=== PATIENT | female | born 1945 | race Caucasian/White ===

== ENCOUNTER 2019-08-10 18:33 | Emergency (ER) | payer MEDICARE, MEDICAID, SELFPAY ==
[2019-08-10 18:38] VITALS: BP 225/75; PULSE 80; RESP 18; TEMP 36.7; O2SAT 95; BMI 61.5
[2019-08-10 19:06] LABS: Basophils % 0.6 %; Eosinophils # 0.1 10^3/uL (0.0-0.8); Eosinophils % 2.3 %; Hematocrit 33.8 % (37.0-47.0); Hemoglobin 10.6 g/dL (11.5-15.3); Lymphocytes # 0.9 10^3/uL (0.8-4.8); Lymphocytes % 19.2 %; Mean Corpuscular HGB Conc 31.4 g/dL (30.0-36.0); Mean Corpuscular Hemoglobin 31.5 pg (28.0-34.0); Mean Corpuscular Volume 100.3 fL (81-99); Mean Platelet Volume 11.4 fL (7.4-10.4); Monocytes # 0.7 10^3/uL (0.2-0.9); Monocytes % 14.9 %; Nucleated Red Blood Cells % 0 %; Platelet Count 170 10^3/cmm (130-400); Red Blood Count 3.37 10^6/uL (4.1-5.3); Red Cell Distribution Width 13.2 % (12.1-15.1); White Blood Count 4.8 10^3/uL (4.0-10.0)
[2019-08-10 19:18] LABS: Alanine Aminotransferase 9 U/L (0-33); Albumin Level 3.7 g/dL (3.5-5.2); Alkaline Phosphatase 199 IU/L (35-105); Anion Gap 19.1 (5-19); Aspartate Amino Transferase 21 U/L (0-32); Blood Urea Nitrogen 42 mg/dL (8-23); Carbon Dioxide 23 mmol/L (22-29); Chloride 99 mmol/L (98-107); Glucose 341 mg/dL (74-106); Potassium 4.1 mmol/L (3.5-5.1); Sodium 137 mmol/L (136-145); Total Bilirubin 0.2 mg/dL (0.15-1.2); Total Protein 7.7 g/dL (6.6-8.7)
--- NOTE | 2019-08-10 20:51 | ECG_ITS ---
Measurements Intervals [place] Rate: 72 P: -30 [place]: 144 QRS: 35 QRSD: 113 T: 4 QT: 366 QTc: 401 SINUS RHYTHM MODERATE INTRAVENTRICULAR CONDUCTION DELAY [110+ ms QRS DURATION] NONSPECIFIC T-WAVE ABNORMALITY Compared to ECG 06/26/2017 13:48:06 Possible ischemia no longer present T-wave abnormality still present Electronically Signed On 08-11-2019 18:32:45 [employer] by Ruddy Sanches M.D. [email or web address]
--- NOTE | 2019-08-10 20:51 | CTR_ITS ---
PROCEDURE INFORMATION: Exam: CT Head Without Contrast Exam date and time: 08/10/2019 9:06 PM Age: 73 years old Clinical indication: Altered mental status/memory loss and other: Incontinence; Additional info: AMS TECHNIQUE: Imaging protocol: Computed tomography of the head without contrast. Total DLP: 783.55 mGy-cm Radiation optimization: All CT scans at this facility use at least one of these dose optimization techniques: automated exposure control; mA and/or kV adjustment per patient size (includes targeted exams where dose is matched to clinical indication); or iterative reconstruction. COMPARISON: CT head wo con* [id number] 12/09/2018 7:17 PM FINDINGS: Brain: Mild cortical volume loss. Mild hypodensities in supratentorial periventricular and subcortical white matter. No intracranial hemorrhage. Ventricles: Normal. No ventriculomegaly. Bones/joints: Unremarkable. No acute fracture. Sinuses: Visualized sinuses are unremarkable. No fluid levels. Mastoid air cells: Visualized mastoid air cells are well aerated. Soft tissues: Unremarkable. CT/CT head wo con* [id number] IMPRESSION: 1. No acute intracranial abnormality. 2. Mild microangiopathy. Radiation Dose CTDIVOL = (mGy): DLP = 783.55 (mGy-cm)
--- NOTE | 2019-08-10 20:54 | ED_ITS ---
Entered by Sherin Isbell, acting as scribe for Duke Geronimo MD Aug 10, 2019 18:33 HPI - Altered Mental Status General: Chief Complaint: Altered Mental Status Stated Complaint: POSS STROKE LIKE SYMPTOMS Time Seen by Provider: 08/10/19 20:51 Source: patient Mode of arrival: ambulatory Limitations: no limitations History of Present Illness: HPI narrative: 73 yo Female presents to ED with complaint of altered mental status and confusion. Pt states that she has been confused for the past couple of days. Pt's family states that the patient has been incontinent of bladder. Pt states it is mostly her cough and when she coughs, she pees. complaint: altered mental status and confusion Onset (ago): day(s) Timing confirmed by: family member Consistency of symptoms: Constant Context: unknown Associated symptoms: Reports other (confusion); Deny auditory hallucinations, visual hallucinations, delusions, depression, homicidal ideation, racing thoughts or suicidal ideation Review of Systems Const: Denies: fever, chills, body aches or change in appetite Eyes: Denies: blurry vision or eye discomfort ENMT: Denies: throat pain or dental pain Card: Denies: chest pain Resp: Reports: non-productive cough; Denies: shortness of breath GI: Denies: abdominal pain, nausea, vomiting or diarrhea : Reports: urinary incontinence; Denies: painful urination Musc: Denies: neck pain or back pain Skin/Breast: Denies: rash Neuro: Reports: confusion; Denies: headache Psych: Denies: depression, visual hallucinations, auditory hallucinations, suicidal ideation or homicidal ideation Jewel/Lymph: Denies: easy bruising All/Imm: Denies: hives PFSH ED PFSH: Statuses (acute, chronic, etc) shown below reflect problem list status as previously entered and may not be historically accurate Medical History (Updated 08/10/19 @ 22:09 by Duke Geronimo MD) CAD (coronary artery disease) (Acute) Diabetes (Acute) PVD (peripheral vascular disease) (Acute) Renal insufficiency (Acute) Surgical History (Updated 08/10/19 @ 21:20 by Sherin Isbell) History of ankle surgery (Acute) History of cataract surgery (Acute) History of cholecystectomy (Acute) History of heart artery stent (Acute) Social History Smoking and tobacco status: never smoked Physical Exam Const: COMMON NORMALS: no apparent distress, oriented x3 and healthy appearing HENMT: COMMON NORMALS: normocephalic and head/scalp atraumatic HEAD & SCALP: normocephalic and atraumatic Eye: COMMON NORMALS: PERRL and EOMs intact bilaterally PUPIL: Yes PERRL Neck/C-Spine: COMMON NORMALS: full ROM and supple Chest: COMMONS NORMALS: inspection of chest normal and palpation of chest normal Resp: COMMON NORMALS: normal respiratory effort, no retractions, no use of accessory muscles and clear to auscultation bilaterally AUSCULTATION: clear to auscultation bilaterally Cardio: COMMON NORMALS: regular rate, regular rhythm and no murmurs RATE: regular rate RHYTHM: regular rhythm GI: COMMON NORMALS: normal to inspection, nondistended, normoactive bowel sounds, soft to palpation, non-tender and no masses PALPATION: Yes soft Extremity: COMMON NORMALS: normal to inspection and full ROM Neuro: COMMON NORMALS: oriented x3, moves all extremities and no focal motor deficits Psych: COMMON NORMALS: mental status grossly normal, thought process normal and cooperative THOUGHT PROCESS: normal thought process THOUGHT CONTENT: No delusion(s) Skin: COMMON NORMALS: no rashes or lesions noted and no wounds GENERAL SKIN EXAM: no rashes or lesions noted Course Vital Signs: Vital signs: Vital Signs Temperature 98.1 F 08/10/19 18:38 Pulse Rate 80 08/10/19 18:38 Respiratory Rate 18 08/10/19 18:38 Blood Pressure 182/63 08/10/19 22:09 Pulse Oximetry 95 08/10/19 18:38 MDM - Altered Mental Status MDM Narrative: Medical decision making narrative: Patient presents here with cough along with low-grade fevers and some dizziness. Patient's found to have flu B. Patient has no signs of sepsis or serious infection. She feels improved here and we will give her a dose of Tamiflu here and prescribe her Tamiflu for home. She is to follow-up with her primary care doctor in 2 to 4 days and return to the ER if worsening. Lab Data: Labs: Lab Results 08/10/19 08/10/19 08/10/19 Range/Units 18:58 18:58 21:38 WBC 4.8 (4.0-10.0) 10^3/ uL RBC 3.37 L (4.1-5.3) 10^6/u L Hgb 10.6 L (11.5-15.3) g/dL Hct 33.8 L (37.0-47.0) % MCV 100.3 H (81-99) fL MCH 31.5 (28.0-34.0) pg MCHC 31.4 (30.0-36.0) g/dL RDW 13.2 (12.1-15.1) % Plt Count 170 (130-400) 10^3/c mm MPV 11.4 H (7.4-10.4) fL Neut % (Auto) 62.0 % Lymph % (Auto) 19.2 % [place] % (Auto) 14.9 % Eos % (Auto) 2.3 % Baso % (Auto) 0.6 % Neut # (Auto) 3.0 (1.8-7.7) 10^3/u L Lymph # (Auto) 0.9 (0.8-4.8) 10^3/u L [place] # (Auto) 0.7 (0.2-0.9) 10^3/u L Eos # (Auto) 0.1 (0.0-0.8) 10^3/u L Baso # (Auto) 0.0 (0.0-0.1) 10^3/u L Nucleated RBC % (a uto) 0 % Nucleated RBCs # 0.0 /100WBC Sodium 137 (136-145) mmol/L Potassium 4.1 (3.5-5.1) mmol/L Chloride 99 (98-107) mmol/L Carbon Dioxide 23 (22-29) mmol/L Anion Gap 19.1 H (5-19) BUN 42 H (8-23) mg/dL Creatinine 2.2 H (0.5-0.9) mg/dL Glucose 341 H (74-106) mg/dL Calcium 9.0 (8.5-10.5) mg/dL Total Bilirubin 0.2 (0.15-1.2) mg/dL AST 21 (0-32) U/L ALT 9 (0-33) U/L Alkaline Phosphata se 199 H (35-105) IU/L Total Protein 7.7 (6.6-8.7) g/dL Albumin 3.7 (3.5-5.2) g/dL Globulin 4.0 (1.3-4.6) g/dL Influenza Type A A g Negative (Negative) POC Influenza B Ag Positive H (Negative) Imaging Data^: CT Head: Radiologist's impression: Ordering Provider/Ordering MD: Duke Geronimo MD Date of Service: 08/10/19 Procedure(s): CT head wo con* [id number] Accession Number(s): [id number] Report Number: [id number] PROCEDURE INFORMATION: Exam: CT Head Without Contrast Exam date and time: 08/10/2019 9:06 PM Age: 73 years old Clinical indication: Altered mental status/memory loss and other: Incontinence; Additional info: AMS TECHNIQUE: Imaging protocol: Computed tomography of the head without contrast. Total DLP: 783.55 mGy-cm Radiation optimization: All CT scans at this facility use at least one of these dose optimization techniques: automated exposure control; mA and/or kV adjustment per patient size (includes targeted exams where dose is matched to clinical indication); or iterative reconstruction. COMPARISON: CT head wo con* [id number] 12/09/2018 7:17 PM FINDINGS: Brain: Mild cortical volume loss. Mild hypodensities in supratentorial periventricular and subcortical white matter. No intracranial hemorrhage. Ventricles: Normal. No ventriculomegaly. Bones/joints: Unremarkable. No acute fracture. Sinuses: Visualized sinuses are unremarkable. No fluid levels. Mastoid air cells: Visualized mastoid air cells are well aerated. Soft tissues: Unremarkable. CT/CT head wo con* [id number] IMPRESSION: 1. No acute intracranial abnormality. 2. Mild microangiopathy. EKG Data^: EKG 1: Attestation: I personally reviewed and interpreted this EKG as follows: EKG interpretation date: 08/10/19 EKG interpretation time: 21:05 Interpretation: nsr hr [address] or t wave abnormalities qrs 113 qtc 390 Discharge Plan Discharge Patient Disposition: Home, Self-Care Clinical Impression: Influenza Condition: Stable Prescriptions: New Tamiflu 75 mg capsule 75 mg PO BID 5 Days Qty: 10 RF: 0 Discharge Orders: Discharge Order (Routine); Ordered 08/10/19 Ordered By: Duke Geronimo Referrals: Pascual Kay MD [Primary Care Provider] - 4-7 days Discharge Diet: Advance as tolerated Discharge Activity: Resume usual activity Patient Instructions: Influenza (ED) Coding Level of Care Code ED Ball Worker for Chg Fwd Exam Problem Focused The documentation recorded by the Sukhi perez Carmen, accurately reflects the service I personally performed and the decisions made by Juanpablo thomas Korby, MD Aug 10, 2019 18:33
[2019-08-10] MEDS: sodium chloride 0.9% 1,000 ML 999 ML IV (21:06)
--- NOTE | 2019-08-10 21:43 | XR_ITS ---
WS: [id number] CHEST XRAY TECHNIQUE: Portable chest. CLINICAL INFORMATION: cough COMPARISON: FINDINGS: Heart: Cardiomegaly. Aortic calcification. Lungs: Mild pulmonary vascular congestion. No focal pneumonia. Bones: Normal visualized bony structures. XR/XR chest 1V portable [id number] IMPRESSION: Cardiomegaly with mild pulmonary vascular congestion. No focal pneumonia.
[2019-08-10 21:59] LABS: Influenza A by IFA Negative (Negative)
[2019-08-10 22:00] LABS: Influenza B by IFA Positive (Negative)
[2019-08-10 22:09] VITALS: BP 182/63
[2019-08-10] MEDS: oseltamivir phosphate 75 mg Capsule PO (22:13)
[2019-08-10 22:39] VITALS: BP 183/78; PULSE 94; RESP 20; O2SAT 94
== END 2019-08-10 22:40 | disposition home or self-care (01) ==
PROVIDERS: Emergency Provider Emergency Medicine; Family Provider Family Medicine; PCP Family Medicine
DX: J11.1 Influenza due to unidentified influenza virus with other respiratory manifestations (principal); I25.10 Atherosclerotic heart disease of native coronary artery without angina pectoris; E11.9 Type 2 diabetes mellitus without complications; I73.9 Peripheral vascular disease, unspecified
CPT/HCPCS: 36415; 70450; 71045; 80053; 85025; 87804; 93005; 99281; 99284; J7030

== ENCOUNTER 2019-09-08 17:56 | Emergency (ER) | payer MEDICARE, MEDICAID, SELFPAY ==
[2019-09-08 17:57] VITALS: BP 207/81; PULSE 72; RESP 20; TEMP 36.5; O2SAT 93; BMI 51.5
--- NOTE | 2019-09-08 20:45 | ED_ITS ---
Entered by Anahy Day, acting as scribe for Sussy Garza Sep 08, 2019 17:56 HPI - General Adult General: Chief complaint: General Medical Stated complaint: CONSTIPATION Time Seen by Provider: 09/08/19 20:43 Source: patient and family History of Present Illness: HPI narrative: 73 y/o female presents to the ED with complaint of constipation. Pt states she has not had a BM in 4-5 days. She has had no relief even with Senna and Miralax. Pt states she typically has a BM every 1-2 days. She had this happen one other time and the issue was resolved with an enema. She has some abd tenderness with palpation. MD complaint: Constipation Onset (ago): day(s) (4-5) Location: abdomen Severity: similar to prior episodes Associated symptoms: Deny chest pain, confusion, diaphoresis, dyspnea, headache(s), malaise, rash, palpitations or syncope Treatments prior to arrival: none (stool softener) Review of Systems General: Reports: other (negative unless marked) Const: Denies: fever, chills, body aches, fatigue, malaise or diaphoresis Eyes: Denies: change in vision or blurry vision ENMT: Denies: throat pain, painful swallowing, hoarseness, ear pain, ear discharge, Change in hearing or nasal discharge Card: Denies: chest pain, palpitations, irregular heart rhythm, syncope, pre- syncope, shortness of breath on exertion or shortness of breath when lying down Resp: Denies: shortness of breath, productive cough, non-productive cough, wheezing, coughing up blood or chest congestion : Denies: flank pain, painful urination, urinary frequency, urinary urgency, decreased urine ouput, urinary incontinence or blood in urine Musc: Denies: neck pain, back pain, extremity pain, extremity swelling, joint pain, joint swelling, joint warmth or joint stiffness Skin/Breast: Denies: rash, skin tenderness or yellow skin Neuro: Denies: headache, numbness in extremities, weakness in extremities, changes in sensation, lack of coordination, difficulty walking, dizziness, vertigo or confusion Endo: Denies: excessive thirst, tired all the time, cold intolerance, excessive sweating, flushing or hot flashes Jewel/Lymph: Denies: easy bruising, easy bleeding, petechiae or enlarged lymph nodes All/Imm: Denies: hives, throat swelling, tongue swelling, facial swelling or acute wheezing PFSH ED PFSH: Medical History (Updated 09/09/19 @ 00:05 by Sussy Garza) CAD (coronary artery disease) Diabetes PVD (peripheral vascular disease) Renal insufficiency Surgical History (Updated 08/10/19 @ 21:20 by Sherin Isbell) History of ankle surgery History of cataract surgery History of cholecystectomy History of heart artery stent Social History Smoking and tobacco status: never smoked Physical Exam Const: COMMON NORMALS: no apparent distress, oriented x3 and no limitations EXAM LIMITATIONS: no altered mental status GENERAL APPEARANCE: cooperative and well developed ORIENTATION/CONSCIOUSNESS: Yes awake HENMT: COMMON NORMALS: normocephalic, head/scalp atraumatic, hearing grossly normal bilaterally, external ears normal, EAC's normal, external nose normal and moist oral mucous membranes HEAD & SCALP: normal to inspection, normocephalic and atraumatic FACE & SINUS: normal facial exam and face symmetric NOSE: external nose normal and nares normal EXTERNAL EAR: Yes external ears normal EXTERNAL AUDITORY CANAL: EAC's normal MOUTH: oral and palatal mucosa normal and tongue normal Eye: COMMON NORMALS: PERRL, EOMs intact bilaterally, conjunctivae normal and no scleral icterus GENERAL EYE: normal appearance of both eyes and normal light reflex CONJUNCTIVA: Yes conjunctivae normal SCLERA: sclerae normal CORNEA: Yes corneas normal PUPIL: Yes PERRL DIRECT OPHTHALMOSCOPY: Yes normal light reflex Neck/C-Spine: COMMON NORMALS: full ROM, no lymphadenopathy, supple, no me ningeal signs and no JVD GENERAL: Yes normal visual inspection and Yes trachea midline CERVICAL SPINE: Yes cervical ROM normal Chest: COMMONS NORMALS: inspection of chest normal and palpation of chest normal Resp: COMMON NORMALS: normal respiratory effort, no retractions, no use of accessory muscles and clear to auscultation bilaterally EFFORT & INSPECTION: Yes able to speak in complete sentences AUSCULTATION: clear to auscultation bilaterally Cardio: COMMON NORMALS: no JVD, regular rate, regular rhythm, S1 normal heart sound, S2 normal heart sound, no gallops, no clicks, no murmurs and no rub JUGULAR VENOUS DISTENTION: no JVD RATE: regular rate RHYTHM: regular rhythm HEART SOUNDS: S1 normal and S2 normal : COMMON NORMALS: Yes no CVA tenderness BLADDER/KIDNEY EXAM: Yes no CVA tenderness Back/Pelvis: COMMON NORMALS: no CVA tenderness, thoracic and lumbar spine normal to inspection, no thoracic nor lumbar tenderness and thoraco-lumbar ROM normal Extremity: COMMON NORMALS: normal to inspection, full ROM, normal capillary refill, no joint enlargement, no clubbing, cyanosis or edema and no calf tenderness Neuro: COMMON NORMALS: oriented x3, CN's II-XII intact bilaterally, moves all extremities, no focal motor deficits and no sensory deficits noted MENINGEAL SIGNS: Yes no meningeal signs Psych: COMMON NORMALS: mental status grossly normal, thought process normal, cooperative, affect normal, speech normal and activity/motor behavior normal SPEECH: Yes normal speech THOUGHT PROCESS: normal thought process Skin: COMMON NORMALS: no rashes or lesions noted, skin turgor normal, no jaundice, no petechiae and no mottling GENERAL SKIN EXAM: no rashes or lesions noted and turgor normal Course Vital Signs: Vital signs: Vital Signs Temperature 97.7 F 09/08/19 17:57 Pulse Rate 84 09/09/19 00:15 Respiratory Rate 19 H 09/09/19 00:15 Blood Pressure 149/49 09/09/19 00:15 Pulse Oximetry 94 09/09/19 00:15 MDM - General Adult MDM Narrative: Medical decision making narrative: Carole is a nice 73-year-old female who comes in for constipation. CT scan showed possible pneumonitis but clinically the patient does not have this. I will go ahead and cover her at discharge. She did have a stool impaction which we were able to disimpact a give her a fleets enema here which resulted in a very large bowel movement. After that the patient states she feels tremendously better and is ready for discharge. I will go ahead and discharge her home to follow-up with her doctor. The patient's blood pressure was elevated but then came down. She states she is not have a history of high blood pressure. Her kidney function was at its baseline. Lab Data: Attestation: I reviewed the patient's lab results. Labs: Lab Results 09/08/19 09/08/19 09/08/19 Range/Units 20:59 20:59 23:15 WBC 10.1 H (4.0-10.0) 10^3/ uL RBC 3.82 L (4.1-5.3) 10^6/u L Hgb 11.8 (11.5-15.3) g/dL Hct 38.0 (37.0-47.0) % MCV 99.5 H (81-99) fL MCH 30.9 (28.0-34.0) pg MCHC 31.1 (30.0-36.0) g/dL RDW 13.6 (12.1-15.1) % Plt Count 246 (130-400) 10^3/c mm MPV 10.5 H (7.4-10.4) fL Neut % (Auto) 60.2 % Lymph % (Auto) 27.3 % [place] % (Auto) 6.1 % Eos % (Auto) 5.0 % Baso % (Auto) 0.3 % Neut # (Auto) 6.1 (1.8-7.7) 10^3/u L Lymph # (Auto) 2.7 (0.8-4.8) 10^3/u L [place] # (Auto) 0.6 (0.2-0.9) 10^3/u L Eos # (Auto) 0.5 (0.0-0.8) 10^3/u L Baso # (Auto) 0.0 (0.0-0.1) 10^3/u L Nucleated RBC % (a uto) 0 % Nucleated RBCs # 0.0 /100WBC Sodium 139 (136-145) mmol/L Potassium 4.9 (3.5-5.1) mmol/L Chloride 101 (98-107) mmol/L Carbon Dioxide 27 (22-29) mmol/L Anion Gap 15.9 (5-19) BUN 38 H (8-23) mg/dL Creatinine 1.8 H (0.5-0.9) mg/dL Glucose 119 H (65-115) mg/dL Calcium 9.4 (8.5-10.5) mg/dL Total Bilirubin 0.3 (0.15-1.2) mg/dL AST 12 (0-32) U/L ALT 6 (0-33) U/L Alkaline Phosphata se 219 H (35-105) IU/L Total Protein 7.9 (6.6-8.7) g/dL Albumin 3.6 (3.5-5.2) g/dL Globulin 4.3 (1.3-4.6) g/dL Lipase 15 (13-60) U/L Urine Color Yellow (Yellow) Urine Appearance Cloudy (CLEAR) Urine pH 7 (5-7) Ur Specific Gravit y 1.010 (1.005-1.030) Urine Protein Neg (Negative) Urine Glucose (UA) Norm (Normal) Urine Ketones Negative (Negative) Urine Blood Neg (Negative) Urine Nitrate Negative (Negative) Urine Bilirubin Neg (NEGATIVE) Urine Urobilinogen Norm (Negative) mg/dL Ur Leukocyte Priscilla ase 2+ H (Negative) Urine RBC 5-10 H (0-2) /hpf Urine WBC Too numerous to c nt H (0-5) /hpf Ur Squamous Epith Cells 15-25 H (0-5) Urine Bacteria 4+ H (NONE) Imaging Data^: CT Abd/Pel: Radiologist's impression: [place] [address] CT Scan Report Signed Patient: Carole Lee #: [id number] : 6Acct#:[id number] Age/Sex: 73 / FADM Date: 09/08/19 Loc: ERRoom/Bed: Attending Dr: Ordering Provider/Ordering MD: Sussy Garza DO Date of Service: 09/08/19 Procedure(s): CT abdomen pelvis con [id number] Accession Number(s): [id number] Report Number: [id number] PROCEDURE INFORMATION: Exam: CT Abdomen And Pelvis Without Contrast Exam date and time: 09/08/2019 9:00 PM Age: 73 years old Clinical indication: Abdominal pain; Generalized; Patient HX: Constipation x5 days TECHNIQUE: Imaging protocol: Computed tomography of the abdomen and pelvis without contrast. Total DLP: 2120.92 mGy-cm Radiation optimization: All CT scans at this facility use at least one of these dose optimization techniques: automated exposure control; mA and/or kV adjustment per patient size (includes targeted exams where dose is matched to clinical indication); or iterative reconstruction. COMPARISON: CT abdomen pelvis con [id number] 08/27/2015 2:39 PM FINDINGS: Lungs: There is increased bibasilar pneumonitis compared to the prior exam. Mediastinum: A small hiatal hernia is present. Liver: Unremarkable.No mass. Gallbladder and bile ducts: Normal. No calcified stones. No ductal dilation. Pancreas: Normal. No ductal dilation. Spleen: Normal. No splenomegaly. Adrenals: Normal. No mass. Kidneys and ureters: Unchanged renal cortical atrophy is noted. No hydronephrosis or nephrolithiasis. There is and unchanged 3 cm simple cyst in the left kidney. Stomach and bowel: Extensive diverticulosis is present in the distal colon. There is no evidence of colitis/diverticulitis. There is no evidence of intestinal perforation or obstruction. There is a moderate amount of stool in the majority of the colon but there is a large amount of stool in the rectum. There is mild induration of fat adjacent to the rectum concerning for early impaction. Appendix: A normal appendix is identified. Intraperitoneal space: Unremarkable. No free air. No significant fluid collection. Vasculature: The aorta demonstrates moderate atherosclerotic calcification. Lymph nodes: Unremarkable.No enlarged lymph nodes. Bladder: Unremarkable as visualized. Reproductive: Unremarkable as visualized. Bones/joints: Unremarkable. No acute fracture. Soft tissues: Unremarkable. Other findings: There are punctate calcified granulomas. CT/CT abdomen pelvis wo con [id number] IMPRESSION: 1. There is increased bibasilar pneumonitis compared to the prior exam. 2. There is and unchanged 3 cm simple cyst in the left kidney. No follow-up is necessary. 3. There is a moderate amount of stool in the majority of the colon but there is a large amount of stool in the rectum. There is mild induration of fat adjacent to the rectum concerning for early impaction. COMMENTS: Consistent with the [employer]'s Incidental Findings Committee white paper (J Am Donny Radiol 2018): Any incidental cystic renal lesion classified in this report as too small to characterize or simple appearing is likely a benign cyst. No follow-up imaging is recommended for these lesions per consensus recommendations based on imaging criteria. Radiation Dose CTDIVOL = (mGy): DLP = 2120.92 (mGy-cm) Discharge Plan Discharge Patient Disposition: Home, Self-Care Clinical Impression: Constipation Qualifiers: Constipation type: unspecified constipation type Qualified Code(s): K59.00 - Constipation, unspecified Pneumonia Qualifiers: Pneumonia type: due to unspecified organism Laterality: bilateral Lung location: lower lobe of lung Qualified Code(s): J18.9 - Pneumonia, unspecified organism UTI (urinary tract infection) Qualifiers: Urinary tract infection type: site unspecified Hematuria presence: with hematuria Qualified Code(s): N39.0 - Urinary tract infection, site not specified Condition: Stable Prescriptions: New cefdinir 300 mg capsule 300 mg PO Q12H 10 Days Qty: 20 RF: 0 doxycycline hyclate 100 mg capsule 100 mg PO BID 10 Days Qty: 20 RF: 0 No Action furosemide 40 mg tablet 40 mg PO DAILY RF: 0 ibuprofen 800 mg tablet 800 mg PO PRN RF: 0 phenytoin sodium extended 100 mg capsule 100 mg PO DAILY RF: 0 levothyroxine 25 mcg tablet 25 mcg PO DAILY RF: 0 gabapentin 800 mg tablet 200 mg PO BID RF: 0 pantoprazole 40 mg tablet,delayed release (DR/EC) 40 mg PO DAILY RF: 0 calcitriol 0.5 mcg capsule 0.5 mcg PO DAILY RF: 0 glimepiride 4 mg tablet 4 mg PO DAILY RF: 0 levothyroxine 200 mcg tablet 200 mcg PO DAILY RF: 0 pravastatin 20 mg tablet 20 mg PO DAILY RF: 0 Novolog Flexpen U-100 Insulin 100 unit/mL (3 mL) insulin pen See Rx Instructions .ROUTE .COMPLEX RF: 0 potassium chloride 10 mEq tablet,ER particles/crystals 10 meq PO DAILY RF: 0 Levemir FlexTouch U-100 Insuln 100 unit/mL (3 mL) insulin pen See Rx Instructions .ROUTE .COMPLEX RF: 0 Eliquis 5 mg tablet 5 mg PO BID RF: 0 Discharge Orders: Discharge Order (Routine); Ordered 09/09/19 Ordered By: Sussy Garza Referrals: Pascual Kay MD [Primary Care Provider] - 1-3 days Discharge Diet: Advance as tolerated Discharge Activity: Increase activity as tolerated Patient Instructions: Constipation (ED), Urinary Tract Infection in Women (ED), Pneumonia (ED) Activity Restrictions/Additional Instructions: Please return to the ER immediately for any of the signs or symptoms listed on your discharge instruction sheets, worsening/changing of your symptoms, you are not getting better as quickly as expected, or for ANY other cause or concerns. It is possible that you may have pneumonia so be certain to take your antibiotics as I have prescribed. Be certain to follow-up with your doctor as soon as possible for recheck. Discharge Date/Time: 09/09/19 00:15 Coding Level of Care Code ED Insole Doubler for Chg Fwd Exam Comprehensive The documentation recorded by the Shay perez Ashley, accurately reflects the service I personally performed and the decisions made by me, Sussy Garza Sep 08, 2019 17:56
--- NOTE | 2019-09-08 20:51 | CTR_ITS ---
PROCEDURE INFORMATION: Exam: CT Abdomen And Pelvis Without Contrast Exam date and time: 09/08/2019 9:00 PM Age: 73 years old Clinical indication: Abdominal pain; Generalized; Patient HX: Constipation x5 days TECHNIQUE: Imaging protocol: Computed tomography of the abdomen and pelvis without contrast. Total DLP: 2120.92 mGy-cm Radiation optimization: All CT scans at this facility use at least one of these dose optimization techniques: automated exposure control; mA and/or kV adjustment per patient size (includes targeted exams where dose is matched to clinical indication); or iterative reconstruction. COMPARISON: CT abdomen pelvis wo con [id number] 08/27/2015 2:39 PM FINDINGS: Lungs: There is increased bibasilar pneumonitis compared to the prior exam. Mediastinum: A small hiatal hernia is present. Liver: Unremarkable.No mass. Gallbladder and bile ducts: Normal. No calcified stones. No ductal dilation. Pancreas: Normal. No ductal dilation. Spleen: Normal. No splenomegaly. Adrenals: Normal. No mass. Kidneys and ureters: Unchanged renal cortical atrophy is noted. No hydronephrosis or nephrolithiasis. There is and unchanged 3 cm simple cyst in the left kidney. Stomach and bowel: Extensive diverticulosis is present in the distal colon. There is no evidence of colitis/diverticulitis. There is no evidence of intestinal perforation or obstruction. There is a moderate amount of stool in the majority of the colon but there is a large amount of stool in the rectum. There is mild induration of fat adjacent to the rectum concerning for early impaction. Appendix: A normal appendix is identified. Intraperitoneal space: Unremarkable. No free air. No significant fluid collection. Vasculature: The aorta demonstrates moderate atherosclerotic calcification. Lymph nodes: Unremarkable.No enlarged lymph nodes. Bladder: Unremarkable as visualized. Reproductive: Unremarkable as visualized. Bones/joints: Unremarkable. No acute fracture. Soft tissues: Unremarkable. Other findings: There are punctate calcified granulomas. CT/CT abdomen pelvis wo con [id number] IMPRESSION: 1. There is increased bibasilar pneumonitis compared to the prior exam. 2. There is and unchanged 3 cm simple cyst in the left kidney. No follow-up is necessary. 3. There is a moderate amount of stool in the majority of the colon but there is a large amount of stool in the rectum. There is mild induration of fat adjacent to the rectum concerning for early impaction. COMMENTS: Consistent with the [employer]'s Incidental Findings Committee white paper (J Am Donny Radiol 2018): Any incidental cystic renal lesion classified in this report as too small to characterize or simple appearing is likely a benign cyst. No follow-up imaging is recommended for these lesions per consensus recommendations based on imaging criteria. Radiation Dose CTDIVOL = (mGy): DLP = 2120.92 (mGy-cm)
[2019-09-08 21:07] LABS: Basophils % 0.3 %; Eosinophils # 0.5 10^3/uL (0.0-0.8); Hemoglobin 11.8 g/dL (11.5-15.3); Lymphocytes # 2.7 10^3/uL (0.8-4.8); Lymphocytes % 27.3 %; Mean Corpuscular HGB Conc 31.1 g/dL (30.0-36.0); Mean Corpuscular Hemoglobin 30.9 pg (28.0-34.0); Mean Corpuscular Volume 99.5 fL (81-99); Mean Platelet Volume 10.5 fL (7.4-10.4); Monocytes # 0.6 10^3/uL (0.2-0.9); Monocytes % 6.1 %; Neutrophils # 6.1 10^3/uL (1.8-7.7); Neutrophils % 60.2 %; Nucleated Red Blood Cells % 0 %; Platelet Count 246 10^3/cmm (130-400); Red Blood Count 3.82 10^6/uL (4.1-5.3); Red Cell Distribution Width 13.6 % (12.1-15.1); White Blood Count 10.1 10^3/uL (4.0-10.0)
[2019-09-08 21:30] LABS: Alanine Aminotransferase 6 U/L (0-33); Albumin Level 3.6 g/dL (3.5-5.2); Alkaline Phosphatase 219 IU/L (35-105); Anion Gap 15.9 (5-19); Aspartate Amino Transferase 12 U/L (0-32); Blood Urea Nitrogen 38 mg/dL (8-23); Calcium 9.4 mg/dL (8.5-10.5); Carbon Dioxide 27 mmol/L (22-29); Chloride 101 mmol/L (98-107); Globulin 4.3 g/dL (1.3-4.6); Glucose 119 mg/dL (65-115); Lipase 15 U/L (13-60); Potassium 4.9 mmol/L (3.5-5.1); Sodium 139 mmol/L (136-145); Total Bilirubin 0.3 mg/dL (0.15-1.2); Total Protein 7.9 g/dL (6.6-8.7)
[2019-09-08] MEDS: Fleet Enema 133 mL Enema PR (23:20)
[2019-09-08 23:59] LABS: Add Urine Culture? No; Bacteria Urine 4+; Bilirubin Urine Neg (NEGATIVE); Blood Urine Neg (Negative); Glucose Urine UA Norm (Normal); Ketones Urine Negative (Negative); Leukocyte Esterase Urine 2+ (Negative); Nitrate Urine Negative (Negative); Protein Urine Neg (Negative); Squamous Epithelial Cell Urine 15-25 (0-5); Urine Appearance Cloudy (CLEAR); Urine Color Yellow (Yellow); Urobilinogen Urine Norm (Negative); WBC Urine TOO NUMEROUS TO CNT /hpf (0-5); pH Urine 7 (5-7)
[2019-09-09 00:15] VITALS: BP 149/49; PULSE 84; RESP 19; O2SAT 94
== END 2019-09-09 00:15 | disposition home or self-care (01) ==
PROVIDERS: Emergency Provider Emergency Medicine; Family Provider Family Medicine; PCP Family Medicine
DX: K59.00 Constipation, unspecified (principal); J18.9 Pneumonia, unspecified organism; N39.0 Urinary tract infection, site not specified; E11.51 Type 2 diabetes mellitus with diabetic peripheral angiopathy without gangrene; I25.10 Atherosclerotic heart disease of native coronary artery without angina pectoris; Z79.4 Long term (current) use of insulin
CPT/HCPCS: 36415; 74176; 80053; 81001; 83690; 85025; 96374; 96375; 99282; 99284

== ENCOUNTER 2020-01-28 16:21 | Inpatient (IN) | payer MEDICARE, MEDICAID, SELFPAY ==
[2020-01-28] VITALS (7 sets, daily range): BP systolic 125–176; BP diastolic 55–83; PULSE 80–88; RESP 15–18; O2SAT 90–100; BMI 53.1
--- NOTE | 2020-01-28 16:42 | XRR_ITS ---
PROCEDURE INFORMATION: Exam: XR Chest, 1 View Exam date and time: 01/28/2020 5:37 PM Age: 74 years old Clinical indication: Dyspnea; Additional info: AMS TECHNIQUE: Imaging protocol: XR of the chest Views: 1 view. COMPARISON: CR XR chest 1V portable [id number] 08/10/2019 9:56 PM FINDINGS: Lungs: Nonspecific bibasilar opacity is present, consistent with atelectasis, edema, or pneumonia. Probable underlying pulmonary fibrosis is noted. There are multiple calcified granulomas. Pleural space: There are small pleural effusions. No pneumothorax. Heart/Mediastinum: The heart is enlarged. Vasculature: Central vessels are mildly engorged with cephalization of flow and mild interstitial edema. Bones/joints: No acute abnormality. XR/XR chest 1V portable [id number] IMPRESSION: 1. Nonspecific bibasilar opacity is present, consistent with atelectasis, edema, or pneumonia. 2. Central vessels are mildly engorged with cephalization of flow and mild interstitial edema.
--- NOTE | 2020-01-28 16:43 | ECG_ITS ---
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 Measurements Intervals [place] Rate: 86 P: -58 MO: 136 QRS: 32 QRSD: 113 T: 14 QT: 375 QTc: 450 Interpretive Statements SINUS RHYTHM LOW QRS VOLTAGE IN EXTREMITY LEADS [QRS DEFLECTION < 0.5 mV IN LIMB LEADS] MODERATE INTRAVENTRICULAR CONDUCTION DELAY [110+ ms QRS DURATION] Compared to ECG 08/10/2019 21:05:26 Low QRS voltage now present T-wave abnormality no longer present Electronically Signed On 01-28-2020 23:38:10 CDT by Antonietta Jo M.D. [id number]
--- NOTE | 2020-01-28 16:50 | CTR_ITS ---
PROCEDURE INFORMATION: Exam: CT Head Without Contrast Exam date and time: 01/28/2020 5:02 PM Age: 74 years old Clinical indication: Altered mental status/memory loss; Additional info: AMS - ? stroke TECHNIQUE: Imaging protocol: Computed tomography of the head without contrast. Radiation optimization: All CT scans at this facility use at least one of these dose optimization techniques: automated exposure control; mA and/or kV adjustment per patient size (includes targeted exams where dose is matched to clinical indication); or iterative reconstruction. COMPARISON: CT head wo con* [id number] 08/10/2019 9:25 PM RADIATION DOSE METRICS: Total DLP (mGy-cm): 894.92 FINDINGS: Brain: There is volume loss and periventricular low density compatible with chronic small vessel disease changes. There is no acute hemorrhage, edema or mass effect. Ventricles: Normal. No ventriculomegaly. Bones/joints: Unremarkable. No acute fracture. Sinuses: Visualized sinuses are unremarkable. No fluid levels. Mastoid air cells: Visualized mastoid air cells are well aerated. Soft tissues: Unremarkable. CT/CT head wo con* [id number] IMPRESSION: No acute intracranial abnormality. Unchanged exam. Radiation Dose CTDIVOL = (mGy): DLP = 894.92 (mGy-cm)
[2020-01-28 17:12] LABS: Basophils % 0.2 %; Eosinophils # 0.2 10^3/uL (0.0-0.8); Eosinophils % 1.4 %; Hematocrit 39.2 % (37.0-47.0); Lymphocytes # 0.3 10^3/uL (0.8-4.8); Lymphocytes % 2.3 %; Mean Corpuscular HGB Conc 30.6 g/dL (30.0-36.0); Mean Corpuscular Hemoglobin 31.1 pg (28.0-34.0); Mean Corpuscular Volume 101.6 fL (81-99); Mean Platelet Volume 11.3 fL (7.4-10.4); Monocytes # 0.4 10^3/uL (0.2-0.9); Neutrophils # 11.67 10^3/uL (1.8-7.7); Neutrophils % 92.5 %; Nucleated Red Blood Cells % 0 %; Platelet Count 215 10^3/cmm (130-400); Red Blood Count 3.86 10^6/uL (4.1-5.3); Red Cell Distribution Width 13.2 % (12.1-15.1); White Blood Count 12.6 10^3/uL (4.0-10.0)
[2020-01-28 17:13] LABS: ABG PH Result 7.37 (7.35-7.45); Arterial Blood Gas Hematocrit 37.3 % (37-47); Base Excess ABG 0.1 mmol/L (-2.0-2.0); Blood Gas Allen Test Pos; Blood Gas Operator Identificat amh; Blood Gas Sample Site Radial, right; Blood Gas Sample Type Arterial; HCO3 ABG 25.8 mmol/L (22-26); Oxygen Device NC; PO2 ABG 64.9 mmHg (80.0-100.0)
[2020-01-28 17:15] LABS: INR 1.09 (0.8-1.2)
[2020-01-28 17:18] LABS: D Dimer 0.68 ug/mIFEU (0-0.59)
[2020-01-28 17:22] LABS: Lactate (Lactic Acid level) 2.4 mmol/L (0.5-2.2)
[2020-01-28 17:26] LABS: Troponin(5th) Baseline 50 ng/L (0-10)
[2020-01-28 17:35] LABS: Procalcitonin 0.34 ng/mL (0-0.5)
--- NOTE | 2020-01-28 17:38 | W.ED.AMS ---
Documented by User: Kiya Garcia MD 01/28/20 20:23 HPI - Altered Mental Status General: Chief Complaint: Altered Mental Status Stated Complaint: AMS Time Seen by Provider: 01/28/20 16:41 History of Present Illness: HPI narrative: This patient is a 74-year-old female who presents today with an altered mental status. She was with her niece running errands in town and initially seemed okay but had complained of being cold all day long. She did not want her needs to have the air conditioning on in their van. Around 2:00 her niece started noticing that she seemed very sleepy and less responsive. She knew that she had gotten much sleep last night but she was just tired. After this went on for some time she began to be more concerned but the patient Saying she was okay. Eventually they stopped and the patient started to get out of car without her walker and was very confused about where they were and what they were doing. At that point the niece called the ambulance and they brought her in. She is responsive. She will open her eyes and answer questions but does not know really what happened or why she is here. She immediately seems to go back to sleep when not being stimulated. complaint: altered mental status Onset (ago): hour(s) (3) Timing confirmed by: family member Severity: severe Consistency of symptoms: Getting Worse Review of Systems General: Reports: ROS unobtainable due to medical condition and ROS unobtainable due to mental status [facility] ED PFSH: Medical History CAD (coronary artery disease) Diabetes Dyslipidemia Morbid obesity PVD (peripheral vascular disease) Renal insufficiency Venous stasis Surgical History History of ankle surgery History of cataract surgery History of cholecystectomy History of heart artery stent Social History Smoking and tobacco status: never smoked Marital status: / Physical Exam Const: GENERAL APPEARANCE: cooperative, disheveled and lethargic NUTRITIONAL APPEARANCE: obese morbidly obese ORIENTATION/CONSCIOUSNESS: Yes lethargic HENMT: HEAD & SCALP: normal to inspection FACE & SINUS: normal facial exam Eye: GENERAL EYE: appearance normal, both eyes and all related structures Neck/C-Spine: COMMON NORMALS: supple, no meningeal signs and no JVD Chest: COMMONS NORMALS: normal inspection of the chest Resp: COMMON NORMALS: normal respiratory effort, No use of accessory muscles and clear to auscultation bilaterally AUSCULTATION: clear to auscultation bilaterally Cardio: COMMON NORMALS: no JVD, regular rate, regular rhythm and No murmurs present (Cardio) RATE: regular rate RHYTHM: regular rhythm GI: COMMON NORMALS: Normal to inspection, nondistended, normoactive bowel sounds present, Soft to palpation and non-tender INSPECTION: Yes normal to inspection AUSCULTATION: Yes normoactive bowel sounds PALPATION: Yes Soft to palpation Back/Pelvis: COMMON NORMALS: thoracic and lumbar spine normal to inspection Extremity: COMMON NORMALS: normal to inspection Neuro: ADRIANO COMA SCALE: document GCS findings Mcdonald coma scale eye opening: To sound Mcdonald coma scale verbal response: Confused Mcdonald coma scale motor response: Obey commands Adriano coma scale total score: 13 COMMON NORMALS: moves all extremities, no focal motor deficits and no sensory deficits noted SENSORIUM/ORIENTATION: Yes lethargic MENINGEAL SIGNS: Yes no meningeal signs MOTOR EXAM: 5/5 motor strength present throughout (Generalized weakness in all 4 extremities) Psych: COMMON NORMALS: mental status grossly normal, cooperative and normal affect Skin: COMMON NORMALS: no rashes or lesions noted and turgor normal GENERAL SKIN EXAM: no rashes or lesions noted and turgor normal Course ED course: This patient is presenting with an altered mental status. This was a gradual onset throughout the afternoon. No specific complaints of cough or fever but she did have chills and was cold this afternoon in spite of it being warm out. Her niece says that she is currently on cephalexin but she is not sure why. Head CT was negative. Creatinine is 1.9. White count is 12.6. ABG shows a pH of 7.37 with a PCO2 of 45 and a PaO2 of 65. Lactate is 2.4. Initial troponin is 50. Procalcitonin is 0.34 and d-dimer is 0.68. Patient will be turned over to Dr. Agarwal at shift change. Vital Signs: Vital signs: Vital Signs Pulse Rate 85 01/28/20 23:33 Respiratory Rate 17 01/28/20 23:33 Blood Pressure 125/83 01/28/20 23:33 Pulse Oximetry 95 01/28/20 23:33 MDM - Altered Mental Status Lab Data: Labs: Lab Results 01/28/20 01/28/20 01/28/20 Range/Units 16:47 16:47 16:47 WBC 12.6 H (4.0-10.0) 10^3/ uL RBC 3.86 L (4.1-5.3) 10^6/u L Hgb 12.0 (11.5-15.3) g/dL Hct 39.2 (37.0-47.0) % MCV 101.6 H (81-99) fL MCH 31.1 (28.0-34.0) pg MCHC 30.6 (30.0-36.0) g/dL RDW 13.2 (12.1-15.1) % Plt Count 215 (130-400) 10^3/c mm MPV 11.3 H (7.4-10.4) fL Neut % (Auto) 92.5 % Lymph % (Auto) 2.3 % Winkler % (Auto) 3.0 % Eos % (Auto) 1.4 % Baso % (Auto) 0.2 % Neut # (Auto) 11.67 H (1.8-7.7) 10^3/u L Lymph # (Auto) 0.3 L (0.8-4.8) 10^3/u L Winkler # (Auto) 0.4 (0.2-0.9) 10^3/u L Eos # (Auto) 0.2 (0.0-0.8) 10^3/u L Baso # (Auto) 0.0 (0.0-0.1) 10^3/u L Nucleated RBC % (a uto) 0 % Nucleated RBCs # 0.0 /100WBC PT (10.5-13.3) SECO NDS INR (0.8-1.2) APTT (23.9-36.7) SECO NDS D-Dimer (0-0.59) ug/mIFE U Specimen Type Sample Site ABG pH (7.35-7.45) ABG pCO2 (35-45) mmHg ABG pO2 (80.0-100.0) mmH g ABG HCO3 (22-26) mmol/L ABG Base Excess (-2.0-2.0) mmol/ L Olvin Test Hematocrit (37-47) % O2 Delivery Device O2 Liters/Min % FiO2 % Patternmaker Hand ID Sodium 134 L (136-145) mmol/L Potassium 4.8 (3.5-5.1) mmol/L Chloride 96 L (98-107) mmol/L Carbon Dioxide 25 (22-29) mmol/L Anion Gap 17.8 (5-19) BUN 36 H (8-23) mg/dL Creatinine 1.9 H (0.5-0.9) mg/dL GFR Calculation Not Reportable Glucose 266 H (65-115) mg/dL Calculated Osmolal ity 285 (285-295) mOsm/k g Lactate 2.4 H (0.5-2.2) mmol/L Calcium 8.3 L (8.5-10.5) mg/dL Magnesium (1.7-2.3) mg/dL Total Bilirubin 0.3 (0.15-1.2) mg/dL AST 18 (0-32) U/L ALT 12 (0-33) U/L Alkaline Phosphata se 187 H (35-105) IU/L Ammonia (11-51) umol/L Troponin T Baselin e (0-10) ng/L Troponin T 120 Min [place] (0-10) ng/L Delta Troponin T (0-10) ABS# C-Reactive Protein 58.2 H (0.0-4.9) mg/L NT-Pro-B Natriuret Pep (0-125) pg/mL Total Protein 7.3 (6.6-8.7) g/dL Albumin 3.9 (3.5-5.2) g/dL Globulin 3.4 (1.3-4.6) g/dL Lipase (13-60) U/L Procalcitonin 0.34 (0-0.5) ng/mL TSH (0.27-4.20) uIU/ mL Urine Color (Yellow) Urine Appearance (CLEAR) Urine pH (5-7) Ur Specific Gravit y (1.005-1.030) Urine Protein (Negative) Urine Glucose (UA) (Normal) Urine Ketones (Negative) Urine Blood (Negative) Urine Nitrate (Negative) Urine Bilirubin (NEGATIVE) Urine Urobilinogen (Negative) mg/dL Ur Leukocyte Priscilla ase (Negative) Urine Opiates Scre en (Negative) ng/mL Ur Barbiturates Sc reen (Negative) ng/mL Phenytoin (10-20) ug/mL Ur Phencyclidine S crn (Negative) ng/mL Ur Amphetamines Sc reen (Negative) ng/mL U Benzodiazepines Scrn (Negative) ng/mL Urine Cocaine Scre en (Negative) ng/mL U Marijuana (THC) Screen (Negative) ng/mL Ethyl Alcohol < 10 (0-10) mg/dL Serum Ketones (Negative) 01/28/20 01/28/20 01/28/20 Range/Units 16:47 16:47 16:47 WBC (4.0-10.0) 10^3/ uL RBC (4.1-5.3) 10^6/u L Hgb (11.5-15.3) g/dL Hct (37.0-47.0) % MCV (81-99) fL MCH (28.0-34.0) pg MCHC (30.0-36.0) g/dL RDW (12.1-15.1) % Plt Count (130-400) 10^3/c mm MPV (7.4-10.4) fL Neut % (Auto) % Lymph % (Auto) % Winkler % (Auto) % Eos % (Auto) % Baso % (Auto) % Neut # (Auto) (1.8-7.7) 10^3/u L Lymph # (Auto) (0.8-4.8) 10^3/u L Winkler # (Auto) (0.2-0.9) 10^3/u L Eos # (Auto) (0.0-0.8) 10^3/u L Baso # (Auto) (0.0-0.1) 10^3/u L Nucleated RBC % (a uto) % Nucleated RBCs # /100WBC PT 14.50 H (10.5-13.3) SECO NDS INR 1.09 (0.8-1.2) APTT (23.9-36.7) SECO NDS D-Dimer 0.68 H (0-0.59) ug/mIFE U Specimen Type Sample Site ABG pH (7.35-7.45) ABG pCO2 (35-45) mmHg ABG pO2 (80.0-100.0) mmH g ABG HCO3 (22-26) mmol/L ABG Base Excess (-2.0-2.0) mmol/ L Olvin Test Hematocrit (37-47) % O2 Delivery Device O2 Liters/Min % FiO2 % Patternmaker Hand ID Sodium (136-145) mmol/L Potassium (3.5-5.1) mmol/L Chloride (98-107) mmol/L Carbon Dioxide (22-29) mmol/L Anion Gap (5-19) BUN (8-23) mg/dL Creatinine (0.5-0.9) mg/dL GFR Calculation Glucose (65-115) mg/dL Calculated Osmolal ity (285-295) mOsm/k g Lactate (0.5-2.2) mmol/L Calcium (8.5-10.5) mg/dL Magnesium (1.7-2.3) mg/dL Total Bilirubin (0.15-1.2) mg/dL AST (0-32) U/L ALT (0-33) U/L Alkaline Phosphata se (35-105) IU/L Ammonia (11-51) umol/L Troponin T Baselin e 50 H (0-10) ng/L Troponin T 120 Min [place] (0-10) ng/L Delta Troponin T (0-10) ABS# C-Reactive Protein (0.0-4.9) mg/L NT-Pro-B Natriuret Pep (0-125) pg/mL Total Protein (6.6-8.7) g/dL Albumin (3.5-5.2) g/dL Globulin (1.3-4.6) g/dL Lipase (13-60) U/L Procalcitonin (0-0.5) ng/mL TSH 1.38 (0.27-4.20) uIU/ mL Urine Color (Yellow) Urine Appearance (CLEAR) Urine pH (5-7) Ur Specific Gravit y (1.005-1.030) Urine Protein (Negative) Urine Glucose (UA) (Normal) Urine Ketones (Negative) Urine Blood (Negative) Urine Nitrate (Negative) Urine Bilirubin (NEGATIVE) Urine Urobilinogen (Negative) mg/dL Ur Leukocyte Priscilla ase (Negative) Urine Opiates Scre en (Negative) ng/mL Ur Barbiturates Sc reen (Negative) ng/mL Phenytoin 15.4 (10-20) ug/mL Ur Phencyclidine S crn (Negative) ng/mL Ur Amphetamines Sc reen (Negative) ng/mL U Benzodiazepines Scrn (Negative) ng/mL Urine Cocaine Scre en (Negative) ng/mL U Marijuana (THC) Screen (Negative) ng/mL Ethyl Alcohol (0-10) mg/dL Serum Ketones (Negative) 01/28/20 01/28/20 01/28/20 Range/Units 16:47 16:47 16:47 WBC (4.0-10.0) 10^3/ uL RBC (4.1-5.3) 10^6/u L Hgb (11.5-15.3) g/dL Hct (37.0-47.0) % MCV (81-99) fL MCH (28.0-34.0) pg MCHC (30.0-36.0) g/dL RDW (12.1-15.1) % Plt Count (130-400) 10^3/c mm MPV (7.4-10.4) fL Neut % (Auto) % Lymph % (Auto) % Winkler % (Auto) % Eos % (Auto) % Baso % (Auto) % Neut # (Auto) (1.8-7.7) 10^3/u L Lymph # (Auto) (0.8-4.8) 10^3/u L Winkler # (Auto) (0.2-0.9) 10^3/u L Eos # (Auto) (0.0-0.8) 10^3/u L Baso # (Auto) (0.0-0.1) 10^3/u L Nucleated RBC % (a uto) % Nucleated RBCs # /100WBC PT (10.5-13.3) SECO NDS INR (0.8-1.2) APTT 29.8 (23.9-36.7) SECO NDS D-Dimer (0-0.59) ug/mIFE U Specimen Type Sample Site ABG pH (7.35-7.45) ABG pCO2 (35-45) mmHg ABG pO2 (80.0-100.0) mmH g ABG HCO3 (22-26) mmol/L ABG Base Excess (-2.0-2.0) mmol/ L Olvin Test Hematocrit (37-47) % O2 Delivery Device O2 Liters/Min % FiO2 % Patternmaker Hand ID Sodium (136-145) mmol/L Potassium (3.5-5.1) mmol/L Chloride (98-107) mmol/L Carbon Dioxide (22-29) mmol/L Anion Gap (5-19) BUN (8-23) mg/dL Creatinine (0.5-0.9) mg/dL GFR Calculation Glucose (65-115) mg/dL Calculated Osmolal ity (285-295) mOsm/k g Lactate (0.5-2.2) mmol/L Calcium (8.5-10.5) mg/dL Magnesium 1.7 (1.7-2.3) mg/dL Total Bilirubin (0.15-1.2) mg/dL AST (0-32) U/L ALT (0-33) U/L Alkaline Phosphata se (35-105) IU/L Ammonia (11-51) umol/L Troponin T Baselin e (0-10) ng/L Troponin T 120 Min [place] (0-10) ng/L Delta Troponin T (0-10) ABS# C-Reactive Protein (0.0-4.9) mg/L NT-Pro-B Natriuret Pep 1797 H (0-125) pg/mL Total Protein (6.6-8.7) g/dL Albumin (3.5-5.2) g/dL Globulin (1.3-4.6) g/dL Lipase 53 (13-60) U/L Procalcitonin (0-0.5) ng/mL TSH (0.27-4.20) uIU/ mL Urine Color (Yellow) Urine Appearance (CLEAR) Urine pH (5-7) Ur Specific Gravit y (1.005-1.030) Urine Protein (Negative) Urine Glucose (UA) (Normal) Urine Ketones (Negative) Urine Blood (Negative) Urine Nitrate (Negative) Urine Bilirubin (NEGATIVE) Urine Urobilinogen (Negative) mg/dL Ur Leukocyte Priscilla ase (Negative) Urine Opiates Scre en (Negative) ng/mL Ur Barbiturates Sc reen (Negative) ng/mL Phenytoin (10-20) ug/mL Ur Phencyclidine S crn (Negative) ng/mL Ur Amphetamines Sc reen (Negative) ng/mL U Benzodiazepines Scrn (Negative) ng/mL Urine Cocaine Scre en (Negative) ng/mL U Marijuana (THC) Screen (Negative) ng/mL Ethyl Alcohol (0-10) mg/dL Serum Ketones Negative (Negative) 01/28/20 01/28/20 01/28/20 Range/Units 17:00 17:50 17:50 WBC (4.0-10.0) 10^3/ uL RBC (4.1-5.3) 10^6/u L Hgb (11.5-15.3) g/dL Hct (37.0-47.0) % MCV (81-99) fL MCH (28.0-34.0) pg MCHC (30.0-36.0) g/dL RDW (12.1-15.1) % Plt Count (130-400) 10^3/c mm MPV (7.4-10.4) fL Neut % (Auto) % Lymph % (Auto) % Winkler % (Auto) % Eos % (Auto) % Baso % (Auto) % Neut # (Auto) (1.8-7.7) 10^3/u L Lymph # (Auto) (0.8-4.8) 10^3/u L Winkler # (Auto) (0.2-0.9) 10^3/u L Eos # (Auto) (0.0-0.8) 10^3/u L Baso # (Auto) (0.0-0.1) 10^3/u L Nucleated RBC % (a uto) % Nucleated RBCs # /100WBC PT (10.5-13.3) SECO NDS INR (0.8-1.2) APTT (23.9-36.7) SECO NDS D-Dimer (0-0.59) ug/mIFE U Specimen Type Arterial Sample Site Radial, right ABG pH 7.37 (7.35-7.45) ABG pCO2 45.0 (35-45) mmHg ABG pO2 64.9 L (80.0-100.0) mmH g ABG HCO3 25.8 (22-26) mmol/L ABG Base Excess 0.1 (-2.0-2.0) mmol/ L Olvin Test Pos Hematocrit 37.3 (37-47) % O2 Delivery Device Nc O2 Liters/Min 2.0 % FiO2 28.0 % Patternmaker Hand ID amh Sodium (136-145) mmol/L Potassium (3.5-5.1) mmol/L Chloride (98-107) mmol/L Carbon Dioxide (22-29) mmol/L Anion Gap (5-19) BUN (8-23) mg/dL Creatinine (0.5-0.9) mg/dL GFR Calculation Glucose (65-115) mg/dL Calculated Osmolal ity (285-295) mOsm/k g Lactate (0.5-2.2) mmol/L Calcium (8.5-10.5) mg/dL Magnesium (1.7-2.3) mg/dL Total Bilirubin (0.15-1.2) mg/dL AST (0-32) U/L ALT (0-33) U/L Alkaline Phosphata se (35-105) IU/L Ammonia (11-51) umol/L Troponin T Baselin e (0-10) ng/L Troponin T 120 Min [place] (0-10) ng/L Delta Troponin T (0-10) ABS# C-Reactive Protein (0.0-4.9) mg/L NT-Pro-B Natriuret Pep (0-125) pg/mL Total Protein (6.6-8.7) g/dL Albumin (3.5-5.2) g/dL Globulin (1.3-4.6) g/dL Lipase (13-60) U/L Procalcitonin (0-0.5) ng/mL TSH (0.27-4.20) uIU/ mL Urine Color Yellow (Yellow) Urine Appearance Clear (CLEAR) Urine pH 5 (5-7) Ur Specific Gravit y 1.010 (1.005-1.030) Urine Protein Neg (Negative) Urine Glucose (UA) Norm (Normal) Urine Ketones Negative (Negative) Urine Blood Neg (Negative) Urine Nitrate Negative (Negative) Urine Bilirubin Neg (NEGATIVE) Urine Urobilinogen Neg (Negative) mg/dL Ur Leukocyte Priscilla ase Negative (Negative) Urine Opiates Scre en Negative (Negative) ng/mL Ur Barbiturates Sc reen Positive H (Negative) ng/mL Phenytoin (10-20) ug/mL Ur Phencyclidine S crn Negative (Negative) ng/mL Ur Amphetamines Sc reen Negative (Negative) ng/mL U Benzodiazepines Scrn Negative (Negative) ng/mL Urine Cocaine Scre en Negative (Negative) ng/mL U Marijuana (THC) Screen Negative (Negative) ng/mL Ethyl Alcohol (0-10) mg/dL Serum Ketones (Negative) 01/28/20 01/28/20 Range/Units 18:07 19:50 WBC (4.0-10.0) 10^3/ uL RBC (4.1-5.3) 10^6/u L Hgb (11.5-15.3) g/dL Hct (37.0-47.0) % MCV (81-99) fL MCH (28.0-34.0) pg MCHC (30.0-36.0) g/dL RDW (12.1-15.1) % Plt Count (130-400) 10^3/c mm MPV (7.4-10.4) fL Neut % (Auto) % Lymph % (Auto) % Winkler % (Auto) % Eos % (Auto) % Baso % (Auto) % Neut # (Auto) (1.8-7.7) 10^3/u L Lymph # (Auto) (0.8-4.8) 10^3/u L Winkler # (Auto) (0.2-0.9) 10^3/u L Eos # (Auto) (0.0-0.8) 10^3/u L Baso # (Auto) (0.0-0.1) 10^3/u L Nucleated RBC % (a uto) % Nucleated RBCs # /100WBC PT (10.5-13.3) SECO NDS INR (0.8-1.2) APTT (23.9-36.7) SECO NDS D-Dimer (0-0.59) ug/mIFE U Specimen Type Sample Site ABG pH (7.35-7.45) ABG pCO2 (35-45) mmHg ABG pO2 (80.0-100.0) mmH g ABG HCO3 (22-26) mmol/L ABG Base Excess (-2.0-2.0) mmol/ L Olvin Test Hematocrit (37-47) % O2 Delivery Device O2 Liters/Min % FiO2 % Patternmaker Hand ID Sodium (136-145) mmol/L Potassium (3.5-5.1) mmol/L Chloride (98-107) mmol/L Carbon Dioxide (22-29) mmol/L Anion Gap (5-19) BUN (8-23) mg/dL Creatinine (0.5-0.9) mg/dL GFR Calculation Glucose (65-115) mg/dL Calculated Osmolal ity (285-295) mOsm/k g Lactate (0.5-2.2) mmol/L Calcium (8.5-10.5) mg/dL Magnesium (1.7-2.3) mg/dL Total Bilirubin (0.15-1.2) mg/dL AST (0-32) U/L ALT (0-33) U/L Alkaline Phosphata se (35-105) IU/L Ammonia 25 (11-51) umol/L Troponin T Baselin e (0-10) ng/L Troponin T 120 Min [place] 44.09 H (0-10) ng/L Delta Troponin T -5.91 L (0-10) ABS# C-Reactive Protein (0.0-4.9) mg/L NT-Pro-B Natriuret Pep (0-125) pg/mL Total Protein (6.6-8.7) g/dL Albumin (3.5-5.2) g/dL Globulin (1.3-4.6) g/dL Lipase (13-60) U/L Procalcitonin (0-0.5) ng/mL TSH (0.27-4.20) uIU/ mL Urine Color (Yellow) Urine Appearance (CLEAR) Urine pH (5-7) Ur Specific Gravit y (1.005-1.030) Urine Protein (Negative) Urine Glucose (UA) (Normal) Urine Ketones (Negative) Urine Blood (Negative) Urine Nitrate (Negative) Urine Bilirubin (NEGATIVE) Urine Urobilinogen (Negative) mg/dL Ur Leukocyte Priscilla ase (Negative) Urine Opiates Scre en (Negative) ng/mL Ur Barbiturates Sc reen (Negative) ng/mL Phenytoin (10-20) ug/mL Ur Phencyclidine S crn (Negative) ng/mL Ur Amphetamines Sc reen (Negative) ng/mL U Benzodiazepines Scrn (Negative) ng/mL Urine Cocaine Scre en (Negative) ng/mL U Marijuana (THC) Screen (Negative) ng/mL Ethyl Alcohol (0-10) mg/dL Serum Ketones (Negative) Discharge Plan Discharge Patient Disposition: Admitted As Inpatient Admit Provider: Woody Bokyin Clinical Impression: Altered mental status Condition: Stable Sign Out Sign Out Data: Patient Sign Out occurred on 01/28/20 at 18:14. Patient's care was discussed, and care was transferred from to Sussy Garza. 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 Comprehensive Documented by User: Sussy Garza 01/29/20 00:05 HPI - Altered Mental Status General: Chief Complaint: Altered Mental Status Stated Complaint: AMS Time Seen by Provider: 01/28/20 16:41 [facility] ED PFSH: Medical History CAD (coronary artery disease) Diabetes Dyslipidemia Morbid obesity PVD (peripheral vascular disease) Renal insufficiency Venous stasis Surgical History History of ankle surgery History of cataract surgery History of cholecystectomy History of heart artery stent Social History Smoking and tobacco status: never smoked Marital status: / Course Vital Signs: Vital signs: Vital Signs Pulse Rate 85 01/28/20 23:33 Respiratory Rate 17 01/28/20 23:33 Blood Pressure 125/83 01/28/20 23:33 Pulse Oximetry 95 01/28/20 23:33 MDM - Altered Mental Status MDM Narrative: Medical decision making narrative: 1800 - Case turned over to me at change of shift from Dr. Garcia, please see her note for her history, physical exam and medical decision-making notes. My exam the patient has a GCS of 13 as she is confused and her eyes open to voice. She has no complaints of pain at this time. On my exam she does have rails and she seems to have tenderness in her abdomen when I press on it. I am going to add additional laboratory studies and noncontrast CTs as her GFR is below the cutoff for contrast. At this time the patient is hemodynamically stable. Admission -a definitive cause for the patient's altered mental status cannot be determined. Meningitis/encephalitis is a possibility but after review with pharmacy is not safe to perform a lumbar puncture for 72 hours or more. The patient does not appear to exhibit any type of seizure activity and upon my phone conversation with the family the patient has just been sleeping and complaining of feeling chilled for the past 2 days. The case was reviewed in full with Dr. Boykin he agrees to admit the patient here for monitoring. She admitted the ICU. She is been covered empirically with antibiotics. She been tested for COVID. She is currently hemodynamically stable and maintains a GCS of 13. Lab Data: Attestation: I reviewed the patient's lab results. Labs: Lab Results 01/28/20 01/28/20 01/28/20 Range/Units 16:47 16:47 16:47 WBC 12.6 H (4.0-10.0) 10^3/ uL RBC 3.86 L (4.1-5.3) 10^6/u L Hgb 12.0 (11.5-15.3) g/dL Hct 39.2 (37.0-47.0) % MCV 101.6 H (81-99) fL MCH 31.1 (28.0-34.0) pg MCHC 30.6 (30.0-36.0) g/dL RDW 13.2 (12.1-15.1) % Plt Count 215 (130-400) 10^3/c mm MPV 11.3 H (7.4-10.4) fL Neut % (Auto) 92.5 % Lymph % (Auto) 2.3 % Winkler % (Auto) 3.0 % Eos % (Auto) 1.4 % Baso % (Auto) 0.2 % Neut # (Auto) 11.67 H (1.8-7.7) 10^3/u L Lymph # (Auto) 0.3 L (0.8-4.8) 10^3/u L Winkler # (Auto) 0.4 (0.2-0.9) 10^3/u L Eos # (Auto) 0.2 (0.0-0.8) 10^3/u L Baso # (Auto) 0.0 (0.0-0.1) 10^3/u L Nucleated RBC % (a uto) 0 % Nucleated RBCs # 0.0 /100WBC PT (10.5-13.3) SECO NDS INR (0.8-1.2) APTT (23.9-36.7) SECO NDS D-Dimer (0-0.59) ug/mIFE U Specimen Type Sample Site ABG pH (7.35-7.45) ABG pCO2 (35-45) mmHg ABG pO2 (80.0-100.0) mmH g ABG HCO3 (22-26) mmol/L ABG Base Excess (-2.0-2.0) mmol/ L Olvin Test Hematocrit (37-47) % O2 Delivery Device O2 Liters/Min % FiO2 % Patternmaker Hand ID Sodium 134 L (136-145) mmol/L Potassium 4.8 (3.5-5.1) mmol/L Chloride 96 L (98-107) mmol/L Carbon Dioxide 25 (22-29) mmol/L Anion Gap 17.8 (5-19) BUN 36 H (8-23) mg/dL Creatinine 1.9 H (0.5-0.9) mg/dL GFR Calculation Not Reportable Glucose 266 H (65-115) mg/dL Calculated Osmolal ity 285 (285-295) mOsm/k g Lactate 2.4 H (0.5-2.2) mmol/L Calcium 8.3 L (8.5-10.5) mg/dL Magnesium (1.7-2.3) mg/dL Total Bilirubin 0.3 (0.15-1.2) mg/dL AST 18 (0-32) U/L ALT 12 (0-33) U/L Alkaline Phosphata se 187 H (35-105) IU/L Ammonia (11-51) umol/L Troponin T Baselin e (0-10) ng/L Troponin T 120 Min [place] (0-10) ng/L Delta Troponin T (0-10) ABS# C-Reactive Protein 58.2 H (0.0-4.9) mg/L NT-Pro-B Natriuret Pep (0-125) pg/mL Total Protein 7.3 (6.6-8.7) g/dL Albumin 3.9 (3.5-5.2) g/dL Globulin 3.4 (1.3-4.6) g/dL Lipase (13-60) U/L Procalcitonin 0.34 (0-0.5) ng/mL TSH (0.27-4.20) uIU/ mL Urine Color (Yellow) Urine Appearance (CLEAR) Urine pH (5-7) Ur Specific Gravit y (1.005-1.030) Urine Protein (Negative) Urine Glucose (UA) (Normal) Urine Ketones (Negative) Urine Blood (Negative) Urine Nitrate (Negative) Urine Bilirubin (NEGATIVE) Urine Urobilinogen (Negative) mg/dL Ur Leukocyte Priscilla ase (Negative) Urine Opiates Scre en (Negative) ng/mL Ur Barbiturates Sc reen (Negative) ng/mL Phenytoin (10-20) ug/mL Ur Phencyclidine S crn (Negative) ng/mL Ur Amphetamines Sc reen (Negative) ng/mL U Benzodiazepines Scrn (Negative) ng/mL Urine Cocaine Scre en (Negative) ng/mL U Marijuana (THC) Screen (Negative) ng/mL Ethyl Alcohol < 10 (0-10) mg/dL Serum Ketones (Negative) 01/28/20 01/28/20 01/28/20 Range/Units 16:47 16:47 16:47 WBC (4.0-10.0) 10^3/ uL RBC (4.1-5.3) 10^6/u L Hgb (11.5-15.3) g/dL Hct (37.0-47.0) % MCV (81-99) fL MCH (28.0-34.0) pg MCHC (30.0-36.0) g/dL RDW (12.1-15.1) % Plt Count (130-400) 10^3/c mm MPV (7.4-10.4) fL Neut % (Auto) % Lymph % (Auto) % Winkler % (Auto) % Eos % (Auto) % Baso % (Auto) % Neut # (Auto) (1.8-7.7) 10^3/u L Lymph # (Auto) (0.8-4.8) 10^3/u L Winkler # (Auto) (0.2-0.9) 10^3/u L Eos # (Auto) (0.0-0.8) 10^3/u L Baso # (Auto) (0.0-0.1) 10^3/u L Nucleated RBC % (a uto) % Nucleated RBCs # /100WBC PT 14.50 H (10.5-13.3) SECO NDS INR 1.09 (0.8-1.2) APTT (23.9-36.7) SECO NDS D-Dimer 0.68 H (0-0.59) ug/mIFE U Specimen Type Sample Site ABG pH (7.35-7.45) ABG pCO2 (35-45) mmHg ABG pO2 (80.0-100.0) mmH g ABG HCO3 (22-26) mmol/L ABG Base Excess (-2.0-2.0) mmol/ L Olvin Test Hematocrit (37-47) % O2 Delivery Device O2 Liters/Min % FiO2 % Patternmaker Hand ID Sodium (136-145) mmol/L Potassium (3.5-5.1) mmol/L Chloride (98-107) mmol/L Carbon Dioxide (22-29) mmol/L Anion Gap (5-19) BUN (8-23) mg/dL Creatinine (0.5-0.9) mg/dL GFR Calculation Glucose (65-115) mg/dL Calculated Osmolal ity (285-295) mOsm/k g Lactate (0.5-2.2) mmol/L Calcium (8.5-10.5) mg/dL Magnesium (1.7-2.3) mg/dL Total Bilirubin (0.15-1.2) mg/dL AST (0-32) U/L ALT (0-33) U/L Alkaline Phosphata se (35-105) IU/L Ammonia (11-51) umol/L Troponin T Baselin e 50 H (0-10) ng/L Troponin T 120 Min [place] (0-10) ng/L Delta Troponin T (0-10) ABS# C-Reactive Protein (0.0-4.9) mg/L NT-Pro-B Natriuret Pep (0-125) pg/mL Total Protein (6.6-8.7) g/dL Albumin (3.5-5.2) g/dL Globulin (1.3-4.6) g/dL Lipase (13-60) U/L Procalcitonin (0-0.5) ng/mL TSH 1.38 (0.27-4.20) uIU/ mL Urine Color (Yellow) Urine Appearance (CLEAR) Urine pH (5-7) Ur Specific Gravit y (1.005-1.030) Urine Protein (Negative) Urine Glucose (UA) (Normal) Urine Ketones (Negative) Urine Blood (Negative) Urine Nitrate (Negative) Urine Bilirubin (NEGATIVE) Urine Urobilinogen (Negative) mg/dL Ur Leukocyte Priscilla ase (Negative) Urine Opiates Scre en (Negative) ng/mL Ur Barbiturates Sc reen (Negative) ng/mL Phenytoin 15.4 (10-20) ug/mL Ur Phencyclidine S crn (Negative) ng/mL Ur Amphetamines Sc reen (Negative) ng/mL U Benzodiazepines Scrn (Negative) ng/mL Urine Cocaine Scre en (Negative) ng/mL U Marijuana (THC) Screen (Negative) ng/mL Ethyl Alcohol (0-10) mg/dL Serum Ketones (Negative) 01/28/20 01/28/20 01/28/20 Range/Units 16:47 16:47 16:47 WBC (4.0-10.0) 10^3/ uL RBC (4.1-5.3) 10^6/u L Hgb (11.5-15.3) g/dL Hct (37.0-47.0) % MCV (81-99) fL MCH (28.0-34.0) pg MCHC (30.0-36.0) g/dL RDW (12.1-15.1) % Plt Count (130-400) 10^3/c mm MPV (7.4-10.4) fL Neut % (Auto) % Lymph % (Auto) % Winkler % (Auto) % Eos % (Auto) % Baso % (Auto) % Neut # (Auto) (1.8-7.7) 10^3/u L Lymph # (Auto) (0.8-4.8) 10^3/u L Winkler # (Auto) (0.2-0.9) 10^3/u L Eos # (Auto) (0.0-0.8) 10^3/u L Baso # (Auto) (0.0-0.1) 10^3/u L Nucleated RBC % (a uto) % Nucleated RBCs # /100WBC PT (10.5-13.3) SECO NDS INR (0.8-1.2) APTT 29.8 (23.9-36.7) SECO NDS D-Dimer (0-0.59) ug/mIFE U Specimen Type Sample Site ABG pH (7.35-7.45) ABG pCO2 (35-45) mmHg ABG pO2 (80.0-100.0) mmH g ABG HCO3 (22-26) mmol/L ABG Base Excess (-2.0-2.0) mmol/ L Olvin Test Hematocrit (37-47) % O2 Delivery Device O2 Liters/Min % FiO2 % Patternmaker Hand ID Sodium (136-145) mmol/L Potassium (3.5-5.1) mmol/L Chloride (98-107) mmol/L Carbon Dioxide (22-29) mmol/L Anion Gap (5-19) BUN (8-23) mg/dL Creatinine (0.5-0.9) mg/dL GFR Calculation Glucose (65-115) mg/dL Calculated Osmolal ity (285-295) mOsm/k g Lactate (0.5-2.2) mmol/L Calcium (8.5-10.5) mg/dL Magnesium 1.7 (1.7-2.3) mg/dL Total Bilirubin (0.15-1.2) mg/dL AST (0-32) U/L ALT (0-33) U/L Alkaline Phosphata se (35-105) IU/L Ammonia (11-51) umol/L Troponin T Baselin e (0-10) ng/L Troponin T 120 Min [place] (0-10) ng/L Delta Troponin T (0-10) ABS# C-Reactive Protein (0.0-4.9) mg/L NT-Pro-B Natriuret Pep 1797 H (0-125) pg/mL Total Protein (6.6-8.7) g/dL Albumin (3.5-5.2) g/dL Globulin (1.3-4.6) g/dL Lipase 53 (13-60) U/L Procalcitonin (0-0.5) ng/mL TSH (0.27-4.20) uIU/ mL Urine Color (Yellow) Urine Appearance (CLEAR) Urine pH (5-7) Ur Specific Gravit y (1.005-1.030) Urine Protein (Negative) Urine Glucose (UA) (Normal) Urine Ketones (Negative) Urine Blood (Negative) Urine Nitrate (Negative) Urine Bilirubin (NEGATIVE) Urine Urobilinogen (Negative) mg/dL Ur Leukocyte Priscilla ase (Negative) Urine Opiates Scre en (Negative) ng/mL Ur Barbiturates Sc reen (Negative) ng/mL Phenytoin (10-20) ug/mL Ur Phencyclidine S crn (Negative) ng/mL Ur Amphetamines Sc reen (Negative) ng/mL U Benzodiazepines Scrn (Negative) ng/mL Urine Cocaine Scre en (Negative) ng/mL U Marijuana (THC) Screen (Negative) ng/mL Ethyl Alcohol (0-10) mg/dL Serum Ketones Negative (Negative) 01/28/20 01/28/20 01/28/20 Range/Units 17:00 17:50 17:50 WBC (4.0-10.0) 10^3/ uL RBC (4.1-5.3) 10^6/u L Hgb (11.5-15.3) g/dL Hct (37.0-47.0) % MCV (81-99) fL MCH (28.0-34.0) pg MCHC (30.0-36.0) g/dL RDW (12.1-15.1) % Plt Count (130-400) 10^3/c mm MPV (7.4-10.4) fL Neut % (Auto) % Lymph % (Auto) % Winkler % (Auto) % Eos % (Auto) % Baso % (Auto) % Neut # (Auto) (1.8-7.7) 10^3/u L Lymph # (Auto) (0.8-4.8) 10^3/u L Winkler # (Auto) (0.2-0.9) 10^3/u L Eos # (Auto) (0.0-0.8) 10^3/u L Baso # (Auto) (0.0-0.1) 10^3/u L Nucleated RBC % (a uto) % Nucleated RBCs # /100WBC PT (10.5-13.3) SECO NDS INR (0.8-1.2) APTT (23.9-36.7) SECO NDS D-Dimer (0-0.59) ug/mIFE U Specimen Type Arterial Sample Site Radial, right ABG pH 7.37 (7.35-7.45) ABG pCO2 45.0 (35-45) mmHg ABG pO2 64.9 L (80.0-100.0) mmH g ABG HCO3 25.8 (22-26) mmol/L ABG Base Excess 0.1 (-2.0-2.0) mmol/ L Olvin Test Pos Hematocrit 37.3 (37-47) % O2 Delivery Device Nc O2 Liters/Min 2.0 % FiO2 28.0 % Patternmaker Hand ID amh Sodium (136-145) mmol/L Potassium (3.5-5.1) mmol/L Chloride (98-107) mmol/L Carbon Dioxide (22-29) mmol/L Anion Gap (5-19) BUN (8-23) mg/dL Creatinine (0.5-0.9) mg/dL GFR Calculation Glucose (65-115) mg/dL Calculated Osmolal ity (285-295) mOsm/k g Lactate (0.5-2.2) mmol/L Calcium (8.5-10.5) mg/dL Magnesium (1.7-2.3) mg/dL Total Bilirubin (0.15-1.2) mg/dL AST (0-32) U/L ALT (0-33) U/L Alkaline Phosphata se (35-105) IU/L Ammonia (11-51) umol/L Troponin T Baselin e (0-10) ng/L Troponin T 120 Min [place] (0-10) ng/L Delta Troponin T (0-10) ABS# C-Reactive Protein (0.0-4.9) mg/L NT-Pro-B Natriuret Pep (0-125) pg/mL Total Protein (6.6-8.7) g/dL Albumin (3.5-5.2) g/dL Globulin (1.3-4.6) g/dL Lipase (13-60) U/L Procalcitonin (0-0.5) ng/mL TSH (0.27-4.20) uIU/ mL Urine Color Yellow (Yellow) Urine Appearance Clear (CLEAR) Urine pH 5 (5-7) Ur Specific Gravit y 1.010 (1.005-1.030) Urine Protein Neg (Negative) Urine Glucose (UA) Norm (Normal) Urine Ketones Negative (Negative) Urine Blood Neg (Negative) Urine Nitrate Negative (Negative) Urine Bilirubin Neg (NEGATIVE) Urine Urobilinogen Neg (Negative) mg/dL Ur Leukocyte Priscilla ase Negative (Negative) Urine Opiates Scre en Negative (Negative) ng/mL Ur Barbiturates Sc reen Positive H (Negative) ng/mL Phenytoin (10-20) ug/mL Ur Phencyclidine S crn Negative (Negative) ng/mL Ur Amphetamines Sc reen Negative (Negative) ng/mL U Benzodiazepines Scrn Negative (Negative) ng/mL Urine Cocaine Scre en Negative (Negative) ng/mL U Marijuana (THC) Screen Negative (Negative) ng/mL Ethyl Alcohol (0-10) mg/dL Serum Ketones (Negative) 01/28/20 01/28/20 Range/Units 18:07 19:50 WBC (4.0-10.0) 10^3/ uL RBC (4.1-5.3) 10^6/u L Hgb (11.5-15.3) g/dL Hct (37.0-47.0) % MCV (81-99) fL MCH (28.0-34.0) pg MCHC (30.0-36.0) g/dL RDW (12.1-15.1) % Plt Count (130-400) 10^3/c mm MPV (7.4-10.4) fL Neut % (Auto) % Lymph % (Auto) % Winkler % (Auto) % Eos % (Auto) % Baso % (Auto) % Neut # (Auto) (1.8-7.7) 10^3/u L Lymph # (Auto) (0.8-4.8) 10^3/u L Winkler # (Auto) (0.2-0.9) 10^3/u L Eos # (Auto) (0.0-0.8) 10^3/u L Baso # (Auto) (0.0-0.1) 10^3/u L Nucleated RBC % (a uto) % Nucleated RBCs # /100WBC PT (10.5-13.3) SECO NDS INR (0.8-1.2) APTT (23.9-36.7) SECO NDS D-Dimer (0-0.59) ug/mIFE U Specimen Type Sample Site ABG pH (7.35-7.45) ABG pCO2 (35-45) mmHg ABG pO2 (80.0-100.0) mmH g ABG HCO3 (22-26) mmol/L ABG Base Excess (-2.0-2.0) mmol/ L Olvin Test Hematocrit (37-47) % O2 Delivery Device O2 Liters/Min % FiO2 % Patternmaker Hand ID Sodium (136-145) mmol/L Potassium (3.5-5.1) mmol/L Chloride (98-107) mmol/L Carbon Dioxide (22-29) mmol/L Anion Gap (5-19) BUN (8-23) mg/dL Creatinine (0.5-0.9) mg/dL GFR Calculation Glucose (65-115) mg/dL Calculated Osmolal ity (285-295) mOsm/k g Lactate (0.5-2.2) mmol/L Calcium (8.5-10.5) mg/dL Magnesium (1.7-2.3) mg/dL Total Bilirubin (0.15-1.2) mg/dL AST (0-32) U/L ALT (0-33) U/L Alkaline Phosphata se (35-105) IU/L Ammonia 25 (11-51) umol/L Troponin T Baselin e (0-10) ng/L Troponin T 120 Min [place] 44.09 H (0-10) ng/L Delta Troponin T -5.91 L (0-10) ABS# C-Reactive Protein (0.0-4.9) mg/L NT-Pro-B Natriuret Pep (0-125) pg/mL Total Protein (6.6-8.7) g/dL Albumin (3.5-5.2) g/dL Globulin (1.3-4.6) g/dL Lipase (13-60) U/L Procalcitonin (0-0.5) ng/mL TSH (0.27-4.20) uIU/ mL Urine Color (Yellow) Urine Appearance (CLEAR) Urine pH (5-7) Ur Specific Gravit y (1.005-1.030) Urine Protein (Negative) Urine Glucose (UA) (Normal) Urine Ketones (Negative) Urine Blood (Negative) Urine Nitrate (Negative) Urine Bilirubin (NEGATIVE) Urine Urobilinogen (Negative) mg/dL Ur Leukocyte Priscilla ase (Negative) Urine Opiates Scre en (Negative) ng/mL Ur Barbiturates Sc reen (Negative) ng/mL Phenytoin (10-20) ug/mL Ur Phencyclidine S crn (Negative) ng/mL Ur Amphetamines Sc reen (Negative) ng/mL U Benzodiazepines Scrn (Negative) ng/mL Urine Cocaine Scre en (Negative) ng/mL U Marijuana (THC) Screen (Negative) ng/mL Ethyl Alcohol (0-10) mg/dL Serum Ketones (Negative) Imaging Data^: CXR: My impression: Cardiomegaly with pulmonary vascular congestion. CT Head: Radiologist's impression: [address] [address] [address] Scan Report Signed Patient: Carole Lee Unit #: [id number] : 1945 Age/Sex: 74 / F ADM Date: 01/28/20 Loc: ER Room/Bed: Attending Dr: Ordering Provider/Ordering MD: Kiya Garcia MD Date of Service: 01/28/20 Procedure(s): CT head wo con* [id number] Accession Number(s): [id number] Report Number: [id number] PROCEDURE INFORMATION: Exam: CT Head Without Contrast Exam date and time: 01/28/2020 5:02 PM Age: 74 years old Clinical indication: Altered mental status/memory loss; Additional info: AMS - ? stroke TECHNIQUE: Imaging protocol: Computed tomography of the head without contrast. Radiation optimization: All CT scans at this facility use at least one of these dose optimization techniques: automated exposure control; mA and/or kV adjustment per patient size (includes targeted exams where dose is matched to clinical indication); or iterative reconstruction. COMPARISON: CT head wo con* [id number] 08/10/2019 9:25 PM RADIATION DOSE METRICS: Total DLP (mGy-cm): 894.92 FINDINGS: Brain: There is volume loss and periventricular low density compatible with chronic small vessel disease changes. There is no acute hemorrhage, edema or mass effect. Ventricles: Normal. No ventriculomegaly. Bones/joints: Unremarkable. No acute fracture. Sinuses: Visualized sinuses are unremarkable. No fluid levels. Mastoid air cells: Visualized mastoid air cells are well aerated. Soft tissues: Unremarkable. CT/CT head wo con* [id number] IMPRESSION: No acute intracranial abnormality. Unchanged exam. Radiation Dose CTDIVOL = (mGy): DLP = 894.92 (mGy-cm) Dictated By: Yue Le Signed By: Yue Le Signed Date/Time: 01/28/201745 DD/ 44 EKG Data^: EKG 1: Attestation: I personally reviewed and interpreted this EKG as follows: EKG interpretation date: 01/28/20 EKG interpretation time: 18:00 Interpretation: Normal sinus rhythm at 86 beats a minute, artifact present, no significant ST or T wave changes, normal axis, no blocks, nonspecific interventricular conduction delay. Similar to previous. EKG 2: Attestation: I personally reviewed and interpreted this EKG as follows: EKG interpretation date: 01/28/20 EKG interpretation time: 18:52 Interpretation: Normal sinus rhythm at 85 beats a minute, normal axis, no blocks, interventricular conduction delay, nonspecific ST-T wave changes. Unchanged from previous. Discharge Plan Discharge Patient Disposition: Admitted As Inpatient Admit Provider: Woody Boykin Clinical Impression: Altered mental status Condition: Stable Sign Out Sign Out Data: Patient Sign Out occurred on 01/28/20 at 18:14. Patient's care was discussed, and care was transferred from to [facility]. 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
[2020-01-28 17:46] LABS: Alanine Aminotransferase 12 U/L (0-33); Albumin Level 3.9 g/dL (3.5-5.2); Alkaline Phosphatase 187 IU/L (35-105); Anion Gap 17.8 (5-19); Aspartate Amino Transferase 18 U/L (0-32); Blood Urea Nitrogen 36 mg/dL (8-23); C Reactive Protein 58.2 mg/L (0.0-4.9); Calcium 8.3 mg/dL (8.5-10.5); Carbon Dioxide 25 mmol/L (22-29); Chloride 96 mmol/L (98-107); Globulin 3.4 g/dL (1.3-4.6); Glucose 266 mg/dL (65-115); Osmolality Calculated 285 mOsm/kg (285-295); Potassium 4.8 mmol/L (3.5-5.1); Sodium 134 mmol/L (136-145); Total Bilirubin 0.3 mg/dL (0.15-1.2); Total Protein 7.3 g/dL (6.6-8.7)
[2020-01-28 17:53] LABS: Add Urine Microscopic? NO
[2020-01-28 17:59] LABS: Alcohol Level < 10 mg/dL (0-10)
[2020-01-28 18:06] LABS: Bilirubin Urine Neg (NEGATIVE); Blood Urine Neg (Negative); Glucose Urine UA Norm (Normal); Ketones Urine Negative (Negative); Leukocyte Esterase Urine Negative (Negative); Nitrate Urine Negative (Negative); Protein Urine Neg (Negative); Urine Appearance Clear (CLEAR); Urine Color Yellow (Yellow); Urobilinogen Urine Neg (Negative); pH Urine 5 (5-7)
[2020-01-28 18:12] LABS: Amphetamines Screen Urine Negative (Negative); Barbiturates Screen Urine Positive (Negative); Benzodiazepines Screen Urine Negative (Negative); Cocaine Screen Urine Negative (Negative); Opiate Screen Urine Negative (Negative); PCP Screen Urine Negative (Negative); THC Screen Urine Negative (Negative)
[2020-01-28 18:25] LABS: Phenytoin Dilantin 15.4 ug/mL (10-20); Thyroid Stimulating Hormone 1.38 uIU/mL (0.27-4.20)
[2020-01-28 18:27] LABS: Troponin 5 2HR 44.09 ng/L (0-10)
[2020-01-28 18:34] LABS: Troponin 5 2HR Delta -5.91 ABS# (0-10)
--- NOTE | 2020-01-28 18:41 | CTR_ITS ---
PROCEDURE INFORMATION: Exam: CT Chest Without Contrast Exam date and time: 01/28/2020 6:42 PM Age: 74 years old Clinical indication: Abdominal pain; Chest pain; Additional info: AMS, hypoxia, pain on palpation TECHNIQUE: Imaging protocol: Computed tomography of the chest without contrast. Radiation optimization: All CT scans at this facility use at least one of these dose optimization techniques: automated exposure control; mA and/or kV adjustment per patient size (includes targeted exams where dose is matched to clinical indication); or iterative reconstruction. COMPARISON: CT abdomen pelvis [facility] [id number] 09/08/2019 10:09 PM RADIATION DOSE METRICS: Total DLP (mGy-cm): 2835.76 FINDINGS: Lungs: Nonspecific bibasilar consolidation is present, consistent with atelectasis, edema, or pneumonia. There is diffuse interstitial and ground-glass opacity in the lungs compatible with mild pneumonitis or CHF. Pleural space: Unremarkable. No pneumothorax. No pleural effusion. Heart: The heart is enlarged. Aorta: Unremarkable. No aortic aneurysm. Lymph nodes: Unremarkable. No enlarged lymph nodes. Bones/joints: Unremarkable. No acute fracture. Soft tissues: Unremarkable. IMPRESSION: 1. Nonspecific bibasilar consolidation is present, consistent with atelectasis, edema, or pneumonia. 2. There is diffuse interstitial and ground-glass opacity in the lungs compatible with mild pneumonitis or CHF. PROCEDURE INFORMATION: Exam: CT Abdomen And Pelvis Without Contrast Exam date and time: 01/28/2020 6:42 PM Age: 74 years old Clinical indication: Abdominal pain; Chest pain; Additional info: AMS, hypoxia, pain on palpation TECHNIQUE: Imaging protocol: Computed tomography of the abdomen and pelvis without contrast. Radiation optimization: All CT scans at this facility use at least one of these dose optimization techniques: automated exposure control; mA and/or kV adjustment per patient size (includes targeted exams where dose is matched to clinical indication); or iterative reconstruction. COMPARISON: CT abdomen pelvis [facility] [id number] 09/08/2019 10:09 PM RADIATION DOSE METRICS: Total DLP (mGy-cm): 2835.76 FINDINGS: Tubes, catheters and devices: A balloon bladder catheter is present. Liver: Unremarkable.No mass. Gallbladder and bile ducts: There has been a cholecystectomy. There is no common bile duct dilation. Pancreas: Normal. No ductal dilation. Spleen: Normal. No splenomegaly. Adrenals: Normal. No mass. Kidneys and ureters: Bilateral kidneys are atrophic. There is no evidence of hydronephrosis. There is no evidence of renal calcifications. There is a 3.1 cm midpole simple cyst in the left kidney. Stomach and bowel: There is no evidence of intestinal perforation or obstruction. There is no evidence of colitis/diverticulitis. Appendix: The appendix is not definitively identified. However, there is no CT evidence of a right lower quadrant inflammatory process. Intraperitoneal space: Unremarkable. No free air. No significant fluid collection. Vasculature: The aorta demonstrates moderate atherosclerotic calcification. Lymph nodes: Unremarkable.No enlarged lymph nodes. Bladder: Unremarkable as visualized. Reproductive: Unremarkable as visualized. Bones/joints: Unremarkable. No acute fracture. Soft tissues: There is diffuse induration of the subcutaneous fat and mesenteric fat compatible with anasarca type changes. CT/CT chest abd pel wo con IMPRESSION: 1. There is diffuse induration of the subcutaneous fat and mesenteric fat compatible with anasarca type changes. 2. No acute abnormality in the abdomen or pelvis. COMMENTS: Consistent with the [employer]'s Incidental Findings Committee white paper (J Am Donny Radiol 2018): Any incidental renal lesion less than 1.0 cm or classified as too small to characterize, or any incidental cystic renal lesion characterized as simple-appearing, is likely benign. No follow-up imaging is recommended for these lesions per consensus recommendations based on imaging criteria. Radiation Dose CTDIVOL = (mGy): DLP = 2835.76~2835.76 (mGy-cm)
--- NOTE | 2020-01-28 18:43 | ECG_ITS ---
[facility] Test Date: 2020-01-28 Pat Name: Carole Lee Department: Room: Gender: Female Melter Caster: : 1945 Requested By: Kiya Callaway Order Number: [id number] Danielle MD: Antonietta Jo M.D. Measurements Intervals [place] Rate: 85 P: -58 TX: 127 QRS: 29 QRSD: 120 T: 10 QT: 378 QTc: 451 Interpretive Statements SINUS RHYTHM MODERATE INTRAVENTRICULAR CONDUCTION DELAY [110+ ms QRS DURATION] Compared to ECG 01/28/2020 17:01:24 No significant changes Electronically Signed On 01-28-2020 23:51:11 CDT by Antonietta Jo M.D. [id number]
--- NOTE | 2020-01-28 18:47 | PC.NURSE ---
EKG done at 1845 and shown to ER doctor
[2020-01-28 18:51] LABS: Ketone (Acetest) Serum Negative (Negative)
[2020-01-28] MEDS: piperacillin-tazobactam 3.375 GM in sodium chloride 0.9% (plus) 50 ML IV (18:54)
[2020-01-28 19:04] LABS: Lipase 53 U/L (13-60); Magnesium 1.7 mg/dL (1.7-2.3); NT Pro B Type Natriuretic Pept 1797 pg/mL (0-125)
[2020-01-28 19:06] LABS: Partial Thromboplastin Time 29.8 SECONDS (23.9-36.7)
[2020-01-28] MEDS: naloxone 0.4 mg/ml SDV IVP (20:30)
[2020-01-28 20:34] LABS: Ammonia 25 umol/L (11-51)
[2020-01-28] MEDS: ampicillin 2,000 MG in sodium chloride 0.9% (plus) 50 ML 100 MG IV (22:03)
--- NOTE | 2020-01-28 22:43 | ECG_ITS ---
[facility] Test Date: 2020-01-28 Pat Name: Carole Lee Department: Room: Gender: Female Access Database Developer: : 1945 Requested By: Kiya Callaway Order Number: [id number] Danielle MD: Antonietta Jo M.D. Measurements Intervals [place] Rate: 85 P: 4 SD: 156 QRS: 37 QRSD: 122 T: 8 QT: 394 QTc: 470 Interpretive Statements SINUS RHYTHM MODERATE INTRAVENTRICULAR CONDUCTION DELAY [105+ ms QRS DURATION, 80+ ms Q/S IN V1/V2, NO Q AND 60+ ms R IN I/aVL/V5/V6] Compared to ECG 01/28/2020 18:52:31 No significant changes Electronically Signed On 01-28-2020 23:51:53 CDT by Antonietta Jo M.D. [id number]
--- NOTE | 2020-01-28 22:57 | PC.NURSE ---
EKG done at 2255 and shown to ER doctor
--- NOTE | 2020-01-28 23:35 | PM.HP ---
Providers/Chief Complaint Admitting Physician: Woody Boykin Primary Care Provider: Pascual Kay MD Chief Complaint: AMS History of Present Illness Carole Lee is a 74 year old female with morbid obesity CAD, DM, HLD, CKD, seizure disorder, who is brought for evaluation in emergency medicine due to lethargy, earlier in the day reportedly had an episode of nausea and vomiting. Patient himself is somnolent this time. Does wake up to stimulation but she can shoulder, or loud voice. Easily falls back asleep. She is not able to provide much history. She knows she is in the hospital. She thinks the year is 2001. She herself denies any discomfort. States she is not in any pain, has no headache, no shortness of breath. Currently on 2 L of oxygen by nasal cannula, saturating in high 90s. I could not hear her coughing before coming in the room. She denies normally wearing oxygen at home. She falls back asleep easily, requires being woken up multiple times. She currently denies any nausea, any abdominal pain. She does not remember having any diarrhea. She is not able to provide much more information. Her speech is not slurred. She answers appropriately, however, does not remember much, and some of the answers does not appear to be true. She does not remember having a history of seizure disorder. She also thinks that she is currently . Prescription with her son she has been staying in chair most of the days for the past 4-5 years. She does not do much around the house. He has to help her significantly with daily activities. She is able to shower, dress herself, and perform other duties per son if she wanted to . He reports that she was out going to the bank with his knees earlier today, and that when she had an episode of vomiting, and subsequently becoming more lethargic. They have not noticed any seizure-like activity. Son confirms that she takes phenytoin for history of seizures. He denies that she has had any complaints recently. Has had no fever, chills no sweats, no headache, no vomiting prior to today. No diarrhea. Her appetite has been good. He denies any recent medication changes. Head CT in ER without acute intracranial abnormality. CT chest abdomen pelvis with nonspecific bibasilar consolidation present consistent with atelectasis edema or pneumonia. Diffuse interstitial and groundglass opacity in the lungs compatible with mild pneumonitis or CHF. She is afebrile. Without tachycardia or other signs of sepsis. She takes Eliquis at home. Son thinks that Eliquis may be secondary to her coronary disease and history of SD. Son is her POA. He states she was given a Keflex prescription for stye. Review of Systems General: Reports: Other (She provides minimal ROS. Some more is nobtained from her son. ) Const: Reports: other (lethargic); Denies: fever(s), chills, body aches or malaise Eyes: Denies: change in vision or eye redness ENMT: Denies: throat pain, oral sores or ear or mastoid pain Card: Denies: chest pain, edema or dyspnea on exertion Resp: Denies: dyspnea, productive cough, change in phlegm color or hemoptysis GI: Reports: vomiting (episode); Denies: abdominal pain, nausea, diarrhea, constipation, hematochezia or melena : Denies: flank pain, urinary frequency or hematuria Musc: Denies: back pain, joint swelling or joint redness Skin/Breast: Denies: rash, sores or new lesions Neuro: Reports: other; Denies: headache(s), numbness in extremities, weakness in extremities, dizziness or seizure-like activity Endo: Denies: polyuria or polydipsia Jewel/Lymph: Denies: easy bleeding or purpura All/Imm: Denies: urticaria, throat swelling or tongue swelling Medications/Allergies Home Medications Medication Instructions Recorded Confirmed Last Taken Type apixaban [Eliquis] 5 mg PO BID 09/08/19 01/28/20 01/28/20 History calcitriol 0.5 mcg PO DAILY 09/08/19 01/28/20 01/28/20 History furosemide 40 mg PO DAILY 09/08/19 01/28/20 01/28/20 History gabapentin 200 mg PO BID 09/08/19 01/28/20 01/28/20 History glimepiride 4 mg PO DAILY 09/08/19 01/28/20 01/28/20 History ibuprofen 800 mg PO PRN 09/08/19 01/28/20 01/28/20 History insulin aspart U-100 [Novolog See Rx Instructions .ROUTE .COMPLEX 09/08/19 01/28/20 01/28/20 History Flexpen U-100 Insulin] insulin detemir U-100 [Levemir See Rx Instructions .ROUTE .COMPLEX 09/08/19 01/28/20 01/28/20 History FlexTouch U-100 Insuln] levothyroxine 25 mcg PO DAILY 09/08/19 01/28/20 01/28/20 History levothyroxine 200 mcg PO DAILY 09/08/19 01/28/20 01/28/20 History pantoprazole 40 mg PO DAILY 09/08/19 01/28/20 01/28/20 History phenytoin sodium extended 100 mg PO DAILY 09/08/19 01/28/20 01/28/20 History potassium chloride 10 meq PO DAILY 09/08/19 01/28/20 01/28/20 History pravastatin 20 mg PO DAILY 09/08/19 01/28/20 01/28/20 History cephalexin 500 mg PO TID 01/28/20 01/28/20 01/28/20 History Allergies Allergy/AdvReac Type Severity Reaction Status Date / Time gentamicin Allergy Unknown Verified 12/17/19 12:01 hydromorphone [From Dilaudid] Allergy Unknown Verified 12/17/19 12:01 PFSH Acute PFSH: Medical History CAD (coronary artery disease) Diabetes Dyslipidemia Morbid obesity PVD (peripheral vascular disease) Renal insufficiency Venous stasis Surgical History History of ankle surgery History of cataract surgery History of cholecystectomy History of heart artery stent Social History Smoking and tobacco status: never smoked Marital status: / Supplemental PFSH Information: She is unable to provide prior history information. Past history available in the chart reviewed. Vitals/I&O/Wt Last Vital Signs Pulse 85 01/28/20 23:33 Resp 17 01/28/20 23:33 BP 125/83 01/28/20 23:33 Pulse Ox 95 01/28/20 23:33 Weight last 48 hrs Weight 153.768 kg Physical Exam Const: COMMON NORMALS: no acute distress NUTRITIONAL APPEARANCE: obese morbidly obese ORIENTATION/CONSCIOUSNESS: Yes oriented to person, Yes oriented to place, Yes confused and Yes lethargic; not oriented to time (Thinks it is 2001) HENMT: COMMON NORMALS: oropharynx normal Neck/C-Spine: COMMON NORMALS: no JVD Resp: COMMON NORMALS: normal respiratory effort and clear to auscultation bilaterally AUSCULTATION: clear to auscultation bilaterally Cardio: COMMON NORMALS: no JVD, regular rhythm, S1 normal heart sound present, S2 normal heart sound present and No murmurs present (Cardio) RHYTHM: regular rhythm HEART SOUNDS: S1 normal heart sound present and S2 normal heart sound present GI: COMMON NORMALS: Normal to inspection, nondistended, normoactive bowel sounds present, Soft to palpation and non-tender PALPATION: Yes Soft to palpation Extremity: COMMON NORMALS: no joint enlargement and no pedal edema Neuro: COMMON NORMALS: moves all extremities Skin: COMMON NORMALS: no rashes or lesions noted GENERAL SKIN EXAM: no rashes or lesions noted Urinary Catheter Management^: Acevedo: Cath Placed During This Visit: yes Reason for Continuing Indwelling Catheter: Accurate Measurement of Urinary Output in Critically Ill Patients Urinary Catheter Date of Insertion: 01/28/20 Urinary Catheter Time of Insertion: 17:51 Data : 01/28/20 16:47 01/28/20 16:47 Micro: Microbiology 01/28/20 18:07 Blood Culture - Preliminary Blood SPECIMEN COLLECTED 01/28/20 16:47 Blood Culture - Preliminary Blood SPECIMEN COLLECTED A&P Assessment and plan (1) Altered mental status: Acute encephalopathy. Son states that patient has been sleeping more in the last couple of days. Today she has been more lethargic, and to my relation appears to be somewhat confused, although son was unaware. She knows she is in the hospital. She denies any complaints herself. She thinks the year is 2001. She is confused about a few other things in her history. So far the work-up is not suggestive of a particular etiology. She reportedly has not had any headache, does not have any currently. She is afebrile. She does have leukocytosis, but without any tachycardia or other signs of sepsis to suggest acute infection. There are no meningeal signs, although acute encephalopathy due to infectious cause cannot entirely be excluded at this time. We will not have radiology available over the weekend, however, per Dr Agarwal discussion with anesthesiology LP should not be a problem to be obtained after it is safe after holding Eliquis. Given CLINICAL BUSINESS MANAGER infection cannot be ruled out at this time she is empirically started on Rocephin, vancomycin, ampicillin, as well as acyclovir. Discussed all this with patient's son who is power of mortgage counselor. Discussed also the consideration of medication effect may need to be given. Phenytoin level will be checked. For now we will hold gabapentin. Her thyroid function appears to be normal. Liver parameters are normal apart from chronically elevated alkaline phosphatase. CT abdomen pelvis with no dilation of CBD. Prior cholecystectomy. This may be secondary to pneumonia or pneumonitis as noted on CT of the chest. She will be assessed with rapid flu and COVID-19 studies. Bacterial antigens. Sputum culture can be collected. Monitor for any occurrence of seizure. No seizure activity is noted. Discussed this also with the son and the ER physician that we do not have EEG available at this time. She otherwise apart from lethargy is not showing other focal neurologic abnormalities, and no seizure activity has been observed. At this time suspicion of seizures low, however, will continue monitor. Discussed with son in case seizure like activity were noted, would necessitate transfer to the facility to be able to confirm by EEG. Urine tox screen tested positive for barbiturates, although it is not listed on her home medications. Status: Acute Qualifiers: Altered mental status type: unspecified Qualified Code(s): R41.82 - Altered mental status, unspecified (2) Pneumonitis: Patchy/groundglass opacities bilaterally. Will assess for COVID-19. Possible aspiration pneumonitis. Antibiotics as above for encephalopathy. Status: Acute (3) Vomitin episode of vomiting earlier today. Prior to that no vomiting, and no vomiting is alert here in the hospital. We will continue PPIs she appears to take ibuprofen at home. She denies any pain. Abdomen exam is benign. Possibly some gastritis secondary to NSAID. Possibly secondary to process that is causing also her encephalopathy. For now keep n.p.o. Status: Acute (4) Morbid obesity: From additional follow-up with primary care provider after she is doing better with regards to weight loss options. Status: Acute Additional A&P Information Hordeolum: Was prescribed Keflex. Currently on antibiotics as above. Diabetes: Continue insulin sliding scale. Detemir doses will need to be confirmmed. No signs of DKA. Glucose mildly elevated. Seizure disorder: Check phenytoin level. Monitor for seizure. Troponin elevation: Mild troponin elevation, without definitive peak. Complete series. She has no chest pain. Suspect this may be mismatch and demand supply secondary to pneumonitis. Mild abnormality of d-dimer. At this time suspicion for PE is low. Monitor for any suggestive signs or symptoms. Low threshold for additional evaluation. CAD HTN HLD CKD: Creatinine appears at baseline. Hypothyroidism: Thyroid function appears normal. Dose of levothyroxine she usually takes is not clear, possibly 225 mcg, but this may need to be confirmed. Attestations Medical Necessity Statement*: Admission of over 2 midnights is continued for assessment of management of acute encephalopathy, pneumonitis. Coding Level of Care Code Acute Tavern Car Attendant for g Fwd Exam Comprehensive Diagnoses Altered mental status R41.82 Altered mental status type: unspecified Pneumonitis J18.9 Vomiting R11.10 Morbid obesity E66.01
[2020-01-29] VITALS (26 sets, daily range): BP systolic 83–176; BP diastolic 40–88; PULSE 76–101; RESP 12–26; TEMP -12–38; O2SAT 96–100; BMI 53.2
[2020-01-29 01:26] LABS: Influenza A by IFA Negative (Negative); Influenza B by IFA Negative (Negative)
[2020-01-29] MEDS: heparin 5,000 unit/mL INJ 1 mL 5000 UNIT SUBCUT ×2 (01:39→07:46)
[2020-01-29] MEDS: cefTRIAXone 2,000 MG in sodium chloride 0.9% (plus) 50 ML 100 MG IV ×2 (01:39→13:11)
[2020-01-29] MEDS: ampicillin 2,000 MG in sodium chloride 0.9% (plus) 50 ML 100 MG IV ×5 (01:41→21:28)
[2020-01-29] MEDS: acyclovir 1,000 MG in sodium chloride 0.9% (100 ml) 100 ML 120 MG IV ×2 (02:23→15:05)
[2020-01-29 06:33] LABS: Basophils % 0.4 %; Eosinophils # 0.4 10^3/uL (0.0-0.8); Eosinophils % 3.1 %; Hematocrit 36.7 % (37.0-47.0); Hemoglobin 11.2 g/dL (11.5-15.3); Lymphocytes # 0.4 10^3/uL (0.8-4.8); Lymphocytes % 3.2 %; Mean Corpuscular HGB Conc 30.5 g/dL (30.0-36.0); Mean Corpuscular Hemoglobin 31.2 pg (28.0-34.0); Mean Corpuscular Volume 102.2 fL (81-99); Mean Platelet Volume 11.9 fL (7.4-10.4); Monocytes # 0.6 10^3/uL (0.2-0.9); Monocytes % 4.8 %; Neutrophils # 10.02 10^3/uL (1.8-7.7); Neutrophils % 87.8 %; Nucleated Red Blood Cells % 0 %; Platelet Count 220 10^3/cmm (130-400); Red Blood Count 3.59 10^6/uL (4.1-5.3); Red Cell Distribution Width 13.1 % (12.1-15.1); White Blood Count 11.4 10^3/uL (4.0-10.0)
[2020-01-29 06:54] LABS: Alanine Aminotransferase 10 U/L (0-33); Albumin Level 3.4 g/dL (3.5-5.2); Alkaline Phosphatase 173 IU/L (35-105); Anion Gap 15.9 (5-19); Aspartate Amino Transferase 17 U/L (0-32); Blood Urea Nitrogen 38 mg/dL (8-23); Carbon Dioxide 26 mmol/L (22-29); Chloride 101 mmol/L (98-107); Globulin 3.7 g/dL (1.3-4.6); Glucose 161 mg/dL (65-115); Osmolality Calculated 287 mOsm/kg (285-295); Potassium 4.9 mmol/L (3.5-5.1); Sodium 138 mmol/L (136-145); Total Bilirubin 0.4 mg/dL (0.15-1.2); Total Protein 7.1 g/dL (6.6-8.7)
[2020-01-29] MEDS: pantoprazole DR 40 mg Tablet PO (09:29)
[2020-01-29] MEDS: atorvastatin 40 mg Tablet 20 MG PO (09:29)
--- NOTE | 2020-01-29 10:53 | MRR_ITS ---
PROCEDURE INFORMATION: Exam: MR Head Without Contrast Exam date and time: 01/29/2020 7:23 PM Age: 74 years old Clinical indication: Altered mental status/memory loss; Additional info: AMS TECHNIQUE: Imaging protocol: MR of the head without contrast. COMPARISON: CT head wo con* [id number] 01/28/2020 5:21 PM FINDINGS: Brain: There is diffuse volume loss. Periventricular T2 and FLAIR signal abnormalities are identified compatible with chronic small vessel disease changes. Dark signal intensity in the basal ganglia is consistent with old age. No acute infarct. No hemorrhage. No significant white matter disease. No edema. Ventricles: Normal. No ventriculomegaly. Bones/joints: Unremarkable. Sinuses: There is mild mucosal thickening in the sinuses and patchy opacification without air-fluid levels. Mastoid air cells: Trace opacification of the right mastoid air cells is noted. The left mastoid air cells are clear. Orbits: Unremarkable. Soft tissues: Unremarkable. MR/MR head wo con* [id number] IMPRESSION: No acute findings.
[2020-01-29] MEDS: sodium chloride 0.9% 1,000 ML 100 ML IV (12:02)
[2020-01-29] MEDS: phenytoin ER 100 mg Capsule PO (12:03)
[2020-01-29] MEDS: heparin 5,000 unit/mL INJ 1 mL 7000 UNIT IVP (12:03)
[2020-01-29] MEDS: heparin 5,000 unit/mL INJ 1 mL IV (12:14)
[2020-01-29] MEDS: heparin drip 25,000 UNIT/500 ML PREMIX 36 UNIT IV (12:17)
[2020-01-29 12:48] LABS: Glucose Point of Care 160 mg/dL (70-110)
[2020-01-29 13:00] LABS: Platelet Count 150 10^3/cmm (130-400)
[2020-01-29 13:14] LABS: Lactic Sepsis W/Reflex 1.4 mmol/L (0.5-2.2)
--- NOTE | 2020-01-29 15:32 | PM.PN ---
Subjective Subjective: Interval history: Admitted overnight. H&P and labs noted. COVID-19 still awaited. Patient is drowsy on examination but is waking up to verbal stimulus. Denies of having any nausea, vomiting. Labs and vitals noted. Patient's care in case discussed with son. He states patient has been living with him for over 8 years. Mostly she sits and lives in a chair. But she has been more lethargic and sleeping for longer for last 4 to 5 days. She is not been complaining of any photophobia, nausea, vomiting, headache, dizziness. He is not aware if patient is having any diarrhea. Does state patient was recently started on Keflex for stye. Also states that patient did have one episode of vomiting on standing up yesterday. Vitals/I&O/Wt Last Vital Signs Temp 98.5 F 01/29/20 12:00 Pulse 77 01/29/20 14:00 Resp 13 01/29/20 14:00 BP 103/40 01/29/20 14:00 Pulse Ox 100 01/29/20 14:00 01/29/20 01/29/20 01/29/20 06:59 14:59 22:59 Intake Total 450 / 450 320 / 320 50 / 370 Output Total 500 / 500 350 / 350 Balance -50 / -50 -30 / -30 50 / 20 Weight last 48 hrs Weight 154.312 kg Weight 153.768 kg Physical Exam Narrative: EXAM NARRATIVE: General: Drowsy, lethargic, arousable to verbal stimulus, AO x3 HEENT: PERRLA, pupils bilaterally equal and reactive Chest: Normal vesicular breath sounds, no added sounds, equal good air entry bilaterally CVS: S1-S2 regular, no murmurs, no tachycardia, no gallops, no rubs Abdomen: Soft, nontender, no organomegaly, bowel sounds present Neuro: No focal deficits, no facial deformity, moving all limbs appropriately Urinary Catheter Management^: Acevedo: Cath Placed During This Visit: yes Reason for Continuing Indwelling Catheter: Accurate Measurement of Urinary Output in Critically Ill Patients Urinary Catheter Date of Insertion: 01/28/20 Urinary Catheter Time of Insertion: 17:51 Data : 01/29/20 12:40 01/29/20 05:52 Micro: Microbiology 01/29/20 00:54 Legionella Urinary Antigen - Final Urine Catheterized 01/29/20 00:54 Bacterial Antigens - Final Urine,Clean Catch 01/28/20 18:07 Blood Culture - Preliminary Blood SPECIMEN COLLECTED 01/28/20 16:47 Blood Culture - Preliminary Blood SPECIMEN COLLECTED A&P Assessment and plan (1) Altered mental status: Status: Acute Qualifiers: Altered mental status type: unspecified Qualified Code(s): R41.82 - Altered mental status, unspecified (2) Pneumonitis: Status: Acute (3) Vomitin episode of vomiting earlier today. Prior to that no vomiting, and no vomiting is alert here in the hospital. We will continue PPIs she appears to take ibuprofen at home. She denies any pain. Abdomen exam is benign. Possibly some gastritis secondary to NSAID. Possibly secondary to process that is causing also her encephalopathy. For now keep n.p.o. Status: Acute (4) Morbid obesity: From additional follow-up with primary care provider after she is doing better with regards to weight loss options. Status: Acute (5) PVD (peripheral vascular disease): Status: Acute (6) CAD (coronary artery disease): Status: Acute (7) Renal insufficiency: Status: Acute (8) History of heart artery stent: Status: Acute (9) COVID-19 virus test result unknown: Status: Acute Additional A&P Information Altered mental status: Acute encephalopathy. Could have waited etiologies. Patient as per the son has not been complaining of any photophobia, headache, dizziness, nausea or vomiting. She reportedly has not had any headache, does not have any currently. She is afebrile. She does have leukocytosis, but without any tachycardia or other signs of sepsis to suggest acute infection. Though patient has already been started on treatment for bacterial and viral meningitis overnight. At present patient is on Rocephin, vancomycin, ampicillin and acyclovir. Will dose all of these medications as per the kidney functions. Patient last took Eliquis yesterday morning. Most likely will have to hold off on lumbar puncture for at least 48 hours post stopping Eliquis. Case discussed with arts and crafts teacher. Will try to get lumbar puncture tomorrow morning. Phenytoin levels appreciated to be normal. For now we will continue holding of gabapentin. Thyroid panel, liver panel within normal limits as well other than chronically elevated alkaline phosphatase. CT abdomen pelvis shows no dilation of CBD and has prior cholecystectomy. Urine tox positive only for barbiturates. Most likely from phenytoin. CT head done last night negative for any stroke. Will get MRI brain to rule out any pathology. Respiratory viral panel to be sent. Patient mentation does not improve patient was most likely require EEG. Son has been made aware that unfortunately EEG is not available over the weekend. He is aware that patient might need to be transferred to a tertiary center for a possible EEG if patient is not improving. Pneumonitis: Cannot rule out aspiration pneumonia. Patient is already on and off antibiotics to cover. Oxygen supplementation to keep saturation over 92%. Spiriva, Advair. COVID-19 has been sent overnight. Continue with contact, isolation precautions. History of CAD/PAD: Patient follows up with Dr. Crespo. Patient is on Eliquis as an anticoagulation. No history of recent claudication. Eliquis was withheld last night for possible improvement or tomorrow. Start patient on heparin drip for now without bolus weight-based. Will most likely stop heparin drip 2 hours prior to the lumbar puncture. CKD: Baseline creatinine around 1.8-2. 2 today. Patient is on medications like ampicillin, acyclovir, vancomycin. Will dose antibiotics as per the renal functions. Start patient on normal saline at 100 cc/h. Continue with Acevedo catheter to monitor for urine output. Hordeolum: Was prescribed Keflex. Currently on antibiotics as above. Diabetes: Start patient on carbohydrate consistent diet. Start patient on insulin sliding scale at moderate dose. Seizure disorder: Check phenytoin level. Monitor for seizure. Start patient on phenytoin. Troponin elevation: Mild troponin elevation, without definitive peak. Complete series. She has no chest pain. Suspect this may be mismatch and demand supply secondary to pneumonitis. Mild abnormality of d-dimer. At this time suspicion for PE is low. Monitor for any suggestive signs or symptoms. Low threshold for additional evaluation. Hypothyroidism: Thyroid function appears normal. Dose of levothyroxine she usually takes is not clear, possibly 225 mcg, but this may need to be confirmed. Patient's care discussed with her son over the phone. He verbalized understanding. All questions were answered. Patient will most likely go home on discharge. Full code. Carb consistent diet. Heparin drip Attestations Medical Necessity Statement*: Altered mental status, pneumonitis Time Spent in Patient Care: Greater than 35 minutes (>than 50% of time spent in counselling and/or direct pt care on unit). Coding Level of Care Code Acute Stem Cutter for Chg Fwd Diagnoses Altered mental status R41.82 Altered mental status type: unspecified Pneumonitis J18.9 Vomiting R11.10 Morbid obesity E66.01 PVD (peripheral vascular disease) I73.9 CAD (coronary artery disease) I25.10 Renal insufficiency N28.9 History of heart artery stent Z95.5 COVID-19 virus test result unknown Z20.828
[2020-01-29 16:49] LABS: Glucose Point of Care 94 mg/dL (70-110)
[2020-01-29 19:12] LABS: Partial Thromboplastin Time 214.9 SECONDS (23.9-36.7)
[2020-01-29 21:16] LABS: Glucose Point of Care 200 mg/dL (70-110)
[2020-01-29 22:00] LABS: Coronavirus Lab Test PTC SEE COMMENTS
[2020-01-29 22:16] LABS: Partial Thromboplastin Time 57.1 SECONDS (23.9-36.7)
[2020-01-30] VITALS (16 sets, daily range): BP systolic 107–179; BP diastolic 47–78; PULSE 72–91; RESP 12–23; TEMP 36.6–37.2; O2SAT 94–99; BMI 53.2
[2020-01-30] MEDS: cefTRIAXone 2,000 MG in sodium chloride 0.9% (plus) 50 ML 100 MG IV ×2 (03:02→14:14)
[2020-01-30] MEDS: sodium chloride 0.9% 1,000 ML 100 ML IV ×2 (03:39→18:35)
[2020-01-30] MEDS: acyclovir 1,000 MG in sodium chloride 0.9% (100 ml) 100 ML 120 MG IV (03:39)
[2020-01-30 05:07] LABS: Basophils % 0.3 %; Eosinophils # 0.6 10^3/uL (0.0-0.8); Eosinophils % 9.7 %; Hematocrit 31.8 % (37.0-47.0); Hemoglobin 9.9 g/dL (11.5-15.3); Lymphocytes # 0.8 10^3/uL (0.8-4.8); Lymphocytes % 11.7 %; Mean Corpuscular HGB Conc 31.1 g/dL (30.0-36.0); Mean Corpuscular Hemoglobin 32.4 pg (28.0-34.0); Mean Corpuscular Volume 103.9 fL (81-99); Monocytes # 0.6 10^3/uL (0.2-0.9); Monocytes % 8.5 %; Neutrophils # 4.57 10^3/uL (1.8-7.7); Neutrophils % 69.3 %; Nucleated Red Blood Cells % 0 %; Platelet Count 149 10^3/cmm (130-400); Red Blood Count 3.06 10^6/uL (4.1-5.3); Red Cell Distribution Width 13.4 % (12.1-15.1); White Blood Count 6.6 10^3/uL (4.0-10.0)
[2020-01-30 05:13] LABS: INR 1.16 (0.8-1.2)
[2020-01-30 05:14] LABS: Fibrinogen 460 mg/dL (184-529)
[2020-01-30 05:22] LABS: Partial Thromboplastin Time 113.2 SECONDS (23.9-36.7)
[2020-01-30 05:25] LABS: Alanine Aminotransferase 9 U/L (0-33); Albumin Level 2.8 g/dL (3.5-5.2); Alkaline Phosphatase 136 IU/L (35-105); Anion Gap 15.6 (5-19); Aspartate Amino Transferase 14 U/L (0-32); Blood Urea Nitrogen 44 mg/dL (8-23); Calcium 7.4 mg/dL (8.5-10.5); Carbon Dioxide 24 mmol/L (22-29); Chloride 104 mmol/L (98-107); Globulin 3.4 g/dL (1.3-4.6); Glucose 111 mg/dL (65-115); Osmolality Calculated 287 mOsm/kg (285-295); Potassium 4.6 mmol/L (3.5-5.1); Sodium 139 mmol/L (136-145); Total Bilirubin 0.2 mg/dL (0.15-1.2); Total Protein 6.2 g/dL (6.6-8.7)
[2020-01-30 05:42] LABS: Platelet Count 149 10^3/cmm (130-400)
[2020-01-30] MEDS: ampicillin 2,000 MG in sodium chloride 0.9% (plus) 50 ML 100 MG IV ×2 (06:26→12:15)
[2020-01-30 06:28] LABS: Glucose Point of Care 115 mg/dL (70-110)
[2020-01-30 07:55] LABS: Glucose Point of Care 126 mg/dL (70-110)
[2020-01-30] MEDS: levothyroxine 100 mcg Tablet 200 MCG PO (09:39)
[2020-01-30] MEDS: atorvastatin 40 mg Tablet 20 MG PO (09:40)
[2020-01-30] MEDS: phenytoin ER 100 mg Capsule PO (09:40)
[2020-01-30] MEDS: pantoprazole DR 40 mg Tablet PO (09:40)
[2020-01-30] MEDS: levothyroxine 25 mcg Tablet PO (10:16)
--- NOTE | 2020-01-30 10:22 | PM.PN ---
Subjective Subjective: Interval history: Patient is a lot more awake today morning. Denies of any nausea, vomiting, headache. On examination she is sitting up in chair and is having complete conversations with me. She is AO x3. Patient has remained afebrile and hemodynamically stable. Last 24 hours COVID-19 was ruled out. Vitals/I&O/Wt Last Vital Signs Temp 98.4 F 01/30/20 06:00 Pulse 80 01/30/20 08:25 Resp 18 01/30/20 08:25 BP 107/47 01/30/20 06:00 Pulse Ox 98 01/30/20 08:25 01/29/20 01/30/20 01/30/20 22:59 06:59 14:59 Intake Total 1969 / 0 200 / 2490 50 / 50 Output Total 650 / 1000 Balance 19690 -450 / 1490 50 / 50 Weight last 48 hrs Weight 154.312 kg Weight 154.312 kg Weight 153.768 kg Physical Exam Narrative: EXAM NARRATIVE: General: No acute distress, AO x3 HEENT: PERRLA, pupils bilaterally equal and reactive Chest: Normal vesicular breath sounds, no added sounds, equal good air entry bilaterally CVS: S1-S2 regular, no murmurs, no tachycardia, no gallops, no rubs Abdomen: Soft, nontender, no organomegaly, bowel sounds present Neuro: No focal deficits, no facial deformity, moving all limbs appropriately Urinary Catheter Management^: Acevedo: Cath Placed During This Visit: yes Reason for Continuing Indwelling Catheter: Accurate Measurement of Urinary Output in Critically Ill Patients Urinary Catheter Date of Insertion: 01/28/20 Urinary Catheter Time of Insertion: 17:51 Data : 01/30/20 10:20 01/30/20 04:03 Micro: Microbiology 01/28/20 18:07 Blood Culture - Preliminary Blood NEGATIVE TO DATE 01/28/20 16:47 Blood Culture - Preliminary Blood NEGATIVE TO DATE A&P Assessment and plan (1) Altered mental status: Status: Acute Qualifiers: Altered mental status type: unspecified Qualified Code(s): R41.82 - Altered mental status, unspecified (2) Pneumonitis: Status: Acute (3) Vomitin episode of vomiting earlier today. Prior to that no vomiting, and no vomiting is alert here in the hospital. We will continue PPIs she appears to take ibuprofen at home. She denies any pain. Abdomen exam is benign. Possibly some gastritis secondary to NSAID. Possibly secondary to process that is causing also her encephalopathy. For now keep n.p.o. Status: Acute (4) Morbid obesity: From additional follow-up with primary care provider after she is doing better with regards to weight loss options. Status: Acute (5) PVD (peripheral vascular disease): Status: Acute (6) CAD (coronary artery disease): Status: Acute (7) Renal insufficiency: Status: Acute (8) History of heart artery stent: Status: Acute (9) COVID-19 ruled out by laboratory testing: Status: Acute Additional A&P Information Altered mental status: Acute encephalopathy. Could have waited etiologies. Patient as per the son has not been complaining of any photophobia, headache, dizziness, nausea or vomiting. She reportedly has not had any headache, does not have any currently. She is afebrile. She does have leukocytosis, but without any tachycardia or other signs of sepsis to suggest acute infection. Though patient has already been started on treatment for bacterial and viral meningitis overnight. She was started on Rocephin, vancomycin, ampicillin and acyclovir at admission. LP could not be done on admission because of Eliquis. Patient underwent lumbar puncture today morning but was a dry tap so the procedure was aborted most likely because of body habitus. Given the fact that patient has such a quick recovery and is awake alert sitting in bed and talking we will discontinue vancomycin, ampicillin and acyclovir and continue to monitor. If patient's mentation worsens again while being off antibiotics will restart the treatment. Will monitor for next 24 to 48 hours off these antibiotics and antivirals. Most likely patient's mentation was poor because of acute encephalopathy from pneumonitis found on chest x-ray on admission along with high-dose of gabapentin at home with worsening renal functions. Continue with Rocephin change dose to daily. DuoNebs every 6 hour, budesonide twice daily. Oxygen supplementation keeping saturation over 92%. Phenytoin levels appreciated to be normal. For now we will continue holding of gabapentin. Thyroid panel, liver panel within normal limits as well other than chronically elevated alkaline phosphatase. CT abdomen pelvis shows no dilation of CBD and has prior cholecystectomy. Urine tox positive only for barbiturates. Most likely from phenytoin. MRI brain negative for any acute pathology. Respiratory viral panel to be sent. Patient mentation does not improve patient was most likely require EEG. Son has been made aware that unfortunately EEG is not available over the weekend. He is aware that patient might need to be transferred to a tertiary center for a possible EEG if patient is not improving. COVID-19 ruled out. Remove isolation precautions. History of CAD/PAD: Patient follows up with Dr. Crespo. Patient is on Eliquis as an anticoagulation. No history of recent claudication. Not of the lumbar puncture is done we will start Eliquis on evening. 5 mg twice daily. Check lipid panel, HbA1c tomorrow morning. CKD: Baseline creatinine around 1.8-2. Urine output improving now. Continue to monitor BMP daily. Continue with Acevedo catheter to monitor for urine output. Hordeolum: Was prescribed Keflex. Currently on antibiotics as above. Diabetes: Start patient on carbohydrate consistent diet. Continue insulin at moderate insulin dose. Seizure disorder: Continue with home dose of Ativan. Seizure precautions. Troponin elevation: Mild troponin elevation, without definitive peak. Complete series. She has no chest pain. Suspect this may be mismatch and demand supply secondary to pneumonitis. Mild abnormality of d-dimer. At this time suspicion for PE is low. Monitor for any suggestive signs or symptoms. Low threshold for additional evaluation. Hypothyroidism: Thyroid function appears normal. Dose of levothyroxine she usually takes is not clear, possibly 225 mcg, but this may need to be confirmed. Patient's care discussed with her son over the phone. He verbalized understanding. All questions were answered. Patient will most likely go home on discharge. Full code. Carb consistent diet. Eliquis Attestations Medical Necessity Statement*: Altered mental status, pneumonitis, COVID-19 ruled out. Time Spent in Patient Care: Greater than 35 minutes (>than 50% of time spent in counselling and/or direct pt care on unit). Coding Level of Care Code Acute Survey Engineer for Chg Fwd Diagnoses Altered mental status R41.82 Altered mental status type: unspecified Pneumonitis J18.9 Vomiting R11.10 Morbid obesity E66.01 PVD (peripheral vascular disease) I73.9 CAD (coronary artery disease) I25.10 Renal insufficiency N28.9 History of heart artery stent Z95.5 COVID-19 ruled out by laboratory testing Z03.818
[2020-01-30 10:41] LABS: Partial Thromboplastin Time 33.1 SECONDS (23.9-36.7)
[2020-01-30 10:42] LABS: Fibrinogen 528 mg/dL (184-529)
[2020-01-30 11:00] LABS: Platelet Count 156 10^3/cmm (130-400)
[2020-01-30 12:10] LABS: Glucose Point of Care 165 mg/dL (70-110)
--- NOTE | 2020-01-30 13:42 | PM.ACPR ---
Procedure/Consent Time out: Time Out Performed: Yes Consent: Consent for Procedure: Consent obtained from other (indicate) (son) Procedure Narrative: Name of the procedure: Lumbar puncture Indication: Suspected meningitis Medications: 1% local lidocaine 10 mL Subcutaneous Description: The patient was placed in left lateral position. Iliac spines identified with the help of Ultrasound due to morbidobesit and using the idea crests as a landmark, space between L3 and L4 vertebrae were identified. The site was marked. The site was cleaned using sterile technique. Sterile technique was followed throughout the procedure. The skin, subcutaneous tissue and deeper tissue were anesthetized with 1% lidocaine. A lumbar puncture needle was advanced in between the spinous processes of L3 and L4 vertebrae. The needle was advanced until a pop and loss of resistance was felt, but could not obtain CSF. Patient repositined to sitting position and attemped one more time following standart sterile precautions. But it was dry tap. Procedure aborted. Complications: No immediate complication was noted. Acute Procedures Epistaxis Control: Time out performed: Yes Lumbar Puncture: Time out performed: Yes Patient position: left lateral decubitus Skin prep: 0.5% Chlorhexidine/Alcohol Local anesthetic used: Lidocaine 1% Amount of anesthesia used (ml): 10 Spinal needle gauge: 20G Interspace used: L4-L5 Complications: need to have other practitioner attempt and unable to obtain CSF
[2020-01-30 16:17] LABS: Glucose Point of Care 119 mg/dL (70-110)
[2020-01-30] MEDS: apixaban 5 mg Tablet PO (18:36)
[2020-01-30 20:44] LABS: Glucose Point of Care 154 mg/dL (70-110)
[2020-01-30] MEDS: nystatin powder 15 gm Btl 1 APPLIC TOPICAL (20:47)
[2020-01-31] VITALS (12 sets, daily range): BP systolic 103–169; BP diastolic 52–63; PULSE 67–85; RESP 12–25; TEMP 36.7–36.9; O2SAT 93–100
[2020-01-31] MEDS: sodium chloride 0.9% 1,000 ML 100 ML IV (03:34)
[2020-01-31 06:13] LABS: Alanine Aminotransferase 9 U/L (0-33); Albumin Level 2.8 g/dL (3.5-5.2); Alkaline Phosphatase 142 IU/L (35-105); Blood Urea Nitrogen 38 mg/dL (8-23); Calcium 7.7 mg/dL (8.5-10.5); Carbon Dioxide 20 mmol/L (22-29); Chloride 108 mmol/L (98-107); Globulin 3.7 g/dL (1.3-4.6); Glucose 112 mg/dL (65-115); Osmolality Calculated 288 mOsm/kg (285-295); Sodium 140 mmol/L (136-145); Total Bilirubin 0.2 mg/dL (0.15-1.2); Total Protein 6.5 g/dL (6.6-8.7)
[2020-01-31 06:17] LABS: Glucose Point of Care 115 mg/dL (70-110)
[2020-01-31 06:20] LABS: Anion Gap 16.6 (5-19); Aspartate Amino Transferase 19 U/L (0-32); Potassium 4.6 mmol/L (3.5-5.1)
--- NOTE | 2020-01-31 06:27 | PC.NURSE ---
PT HAD AN UNEVENTFUL NIGHT. PT STATES THAT THEY DIDN'T SLEEP WELL, THAT THEY FELT LIKE THE BED WAS VIBRATING ALL NIGHT. PT DENIES PAIN AT THIS TIME. WILL GIVE REPORT TO ONCOMING NURSE.
[2020-01-31 06:33] LABS: Chol HDL Ratio 4.88 mg/dL (0.0-4.40); Cholesterol 156 mg/dL (0-200); HDL Cholesterol 32 mg/dL (60-100); LDL Cholesterol Calculated 88 mg/dL (50-129); Triglycerides 179 mg/dL (0-150); VLDL Cholestrol Calculation 36 mg/dL (0-30)
[2020-01-31 06:33] LABS: Basophils % 0.8 %; Eosinophils # 0.6 10^3/uL (0.0-0.8); Eosinophils % 12.4 %; Hematocrit 32.2 % (37.0-47.0); Hemoglobin 9.8 g/dL (11.5-15.3); Lymphocytes # 0.9 10^3/uL (0.8-4.8); Mean Corpuscular HGB Conc 30.4 g/dL (30.0-36.0); Mean Corpuscular Volume 101.9 fL (81-99); Mean Platelet Volume 11.4 fL (7.4-10.4); Monocytes # 0.5 10^3/uL (0.2-0.9); Monocytes % 10.1 %; Neutrophils # 2.77 10^3/uL (1.8-7.7); Neutrophils % 58.1 %; Nucleated Red Blood Cells % 0 %; Platelet Count 162 10^3/cmm (130-400); Red Blood Count 3.16 10^6/uL (4.1-5.3); Red Cell Distribution Width 13.2 % (12.1-15.1); White Blood Count 4.8 10^3/uL (4.0-10.0)
[2020-01-31 06:57] LABS: Estmated Average Glucose 148; Hemoglobin A1C 6.8 % (4.0-6.0)
[2020-01-31] MEDS: atorvastatin 40 mg Tablet 20 MG PO (08:00)
[2020-01-31] MEDS: levothyroxine 100 mcg Tablet 200 MCG PO (08:01)
[2020-01-31] MEDS: apixaban 5 mg Tablet PO ×2 (08:01→17:58)
[2020-01-31] MEDS: levothyroxine 25 mcg Tablet PO (08:01)
[2020-01-31] MEDS: pantoprazole DR 40 mg Tablet PO (08:01)
[2020-01-31] MEDS: nystatin powder 15 gm Btl 1 APPLIC TOPICAL (08:05)
[2020-01-31] MEDS: phenytoin ER 100 mg Capsule PO (08:50)
[2020-01-31] MEDS: cefTRIAXone 2,000 MG in sodium chloride 0.9% (plus) 50 ML 100 MG IV ×2 (08:50→09:44)
--- NOTE | 2020-01-31 09:02 | PC.NURSE ---
Medication Pt stated the doctor when she was in ICU told her that all IV antibiotics has been DC until further notice. I told the pt there is still an order to give IV ceftriaxone. Pt still adamant about getting the IV. Called Dr Mckeon via phone and received telephone order to hold the IV antibiotic for now.
--- NOTE | 2020-01-31 09:29 | PC.SOCIAL ---
IMM completed 01/31/2020 @ 9566.
[2020-01-31] MEDS: ipratropium-albuterol 3 mL Neb INHALATION ×2 (09:41→16:32)
[2020-01-31] MEDS: budesonide 0.5 mg/2 mL Neb INHALATION (09:41)
[2020-01-31 11:53] LABS: Glucose Point of Care 166 mg/dL (70-110)
--- NOTE | 2020-01-31 13:01 | P.PN_ITS ---
Subjective Subjective: Interval history: Carole reports she is doing okay. Would like to have her catheter removed. No specific pain. Medications: Reviewed: Yes Vitals/I&O/Wt Last Vital Signs Temp 98.2 F 01/31/20 11:52 Pulse 81 01/31/20 11:52 Resp 23 H 01/31/20 11:52 BP 148/55 01/31/20 07:35 Pulse Ox 97 01/31/20 11:52 01/30/20 01/31/20 01/31/20 22:59 06:59 14:59 Intake Total 1400 / 2920 898.333 / 3818.333 360 / 360 Output Total 425 / 875 1050 / 1925 450 / 450 Balance 975 / 2045 -151.667 / 1893.333 -90 / -90 Weight last 48 hrs Weight 158.032 kg Weight 154.312 kg Physical Exam Narrative: EXAM NARRATIVE: General exam no apparent distress Cardiovascular regular rate and rhythm without murmur Lungs clear no wheezing or crackles Abdomen is soft obese nontender Extremities no cyanosis clubbing or edema. Urinary Catheter Management^: Acevedo: Cath Placed During This Visit: yes Reason for Continuing Indwelling Catheter: Accurate Measurement of Urinary Ou tput in Critically Ill Patients Urinary Catheter Date of Insertion: 01/28/20 Urinary Catheter Time of Insertion: 17:51 Data : 01/31/20 06:27 01/31/20 05:13 A&P Assessment and plan (1) Altered mental status: This appears to have resolved Meningitis felt less likely. MRI brain negative Status: Acute Qualifiers: Altered mental status type: unspecified Qualified Code(s): R41.82 - Altered mental status, unspecified (2) Pneumonitis: Continue Rocephin currently. Await MRSA PCR Status: Acute (3) Vomiting: Resolved. Avoid anti-inflammatories ContinueProtonix Status: Acute (4) Morbid obesity: Encourage weight loss Status: Acute (5) PVD (peripheral vascular disease): Status: Acute (6) CAD (coronary artery disease): On Eliquis chronically. Resume. Status: Acute (7) Renal insufficiency: Renal function slightly improved Discontinue Acevedo Status: Acute (8) History of heart artery stent: Status: Acute (9) COVID-19 ruled out by laboratory testing: Status: Acute Additional A&P Information Pretension. Add Norvasc 5 mg daily. Hordeolum. Currently on Rocephin. Type 2 diabetes. Sliding scale insulin History of seizure disorder. Continue Dilantin. She was taken off Neurontin early in the hospital course secondary to concern of confusion and this has not been restarted. No seizures have been noted in the hospital. Troponin elevation, consistent with type II Hypothyroidism. Continue home meds Peripheral vascular disease. She is on anticoagulant per cardiology. Full code Eliquis will suffice for DVT prophylaxis. Attestations Medical Necessity Statement*: Needs continued hospitalization for IV antibiotics secondary to pneumonia. Coding Level of Care Code Acute Ethanol Operator for g Fwd Diagnoses Altered mental status R41.82 Altered mental status type: unspecified Pneumonitis J18.9 Vomiting R11.10 Morbid obesity E66.01 PVD (peripheral vascular disease) I73.9 CAD (coronary artery disease) I25.10 Renal insufficiency N28.9 History of heart artery stent Z95.5 COVID-19 ruled out by laboratory testing Z03.818
[2020-01-31] MEDS: amlodipine 5 mg Tablet PO (14:03)
[2020-01-31 16:30] LABS: Glucose Point of Care 166 mg/dL (70-110)
[2020-01-31 19:37] LABS: Glucose Point of Care 158 mg/dL (70-110)
--- NOTE | 2020-01-31 22:24 | PC.NURSE ---
PT RESTING IN BED. PT DENIES PAIN. PT STATES THAT THEY JUST WANT TO SLEEP. PT REQUEST THAT IF THEY ARE SLEEPING AT V/S ROUNDING TO PLEASE LET THEM SLEEP. WILL CONTINUE TO MONITOR.
[2020-02-01] VITALS (13 sets, daily range): BP systolic 155–198; BP diastolic 61–93; PULSE 71–82; RESP 15–20; TEMP 36.5–36.8; O2SAT 86–95
--- NOTE | 2020-02-01 00:07 | PC.NURSE ---
PT REFUSES V/S AT THIS TIME. PT JUST WANTS TO SLEEP. WILL CONTINUE TO MONITOR.
[2020-02-01 04:11] LABS: Basophils % 0.6 %; Eosinophils # 0.4 10^3/uL (0.0-0.8); Eosinophils % 7.8 %; Hemoglobin 9.4 g/dL (11.5-15.3); Lymphocytes # 1.3 10^3/uL (0.8-4.8); Mean Corpuscular HGB Conc 30.3 g/dL (30.0-36.0); Mean Corpuscular Hemoglobin 30.7 pg (28.0-34.0); Mean Corpuscular Volume 101.3 fL (81-99); Monocytes # 0.6 10^3/uL (0.2-0.9); Monocytes % 11.4 %; Neutrophils # 2.91 10^3/uL (1.8-7.7); Neutrophils % 54.3 %; Nucleated Red Blood Cells % 0 %; Platelet Count 172 10^3/cmm (130-400); Red Blood Count 3.06 10^6/uL (4.1-5.3); Red Cell Distribution Width 13.3 % (12.1-15.1); White Blood Count 5.4 10^3/uL (4.0-10.0)
[2020-02-01 04:40] LABS: Alanine Aminotransferase 7 U/L (0-33); Albumin Level 2.9 g/dL (3.5-5.2); Alkaline Phosphatase 121 IU/L (35-105); Aspartate Amino Transferase 15 U/L (0-32); Blood Urea Nitrogen 32 mg/dL (8-23); Calcium 7.9 mg/dL (8.5-10.5); Carbon Dioxide 22 mmol/L (22-29); Chloride 108 mmol/L (98-107); Globulin 3.3 g/dL (1.3-4.6); Glucose 142 mg/dL (65-115); Osmolality Calculated 290 mOsm/kg (285-295); Sodium 140 mmol/L (136-145); Total Bilirubin 0.2 mg/dL (0.15-1.2); Total Protein 6.2 g/dL (6.6-8.7)
[2020-02-01 07:01] LABS: Glucose Point of Care 149 mg/dL (70-110)
[2020-02-01] MEDS: cefTRIAXone 2,000 MG in sodium chloride 0.9% (plus) 50 ML 100 MG IV (08:27)
[2020-02-01] MEDS: levothyroxine 25 mcg Tablet PO (08:28)
[2020-02-01] MEDS: nystatin powder 15 gm Btl 1 APPLIC TOPICAL (08:28)
[2020-02-01] MEDS: levothyroxine 100 mcg Tablet 200 MCG PO (08:28)
[2020-02-01] MEDS: atorvastatin 40 mg Tablet 20 MG PO (08:28)
[2020-02-01] MEDS: phenytoin ER 100 mg Capsule PO (08:28)
[2020-02-01] MEDS: amlodipine 5 mg Tablet PO ×2 (08:29→11:14)
[2020-02-01] MEDS: apixaban 5 mg Tablet PO (08:29)
[2020-02-01] MEDS: pantoprazole DR 40 mg Tablet PO (08:29)
[2020-02-01] MEDS: budesonide 0.5 mg/2 mL Neb INHALATION (08:58)
[2020-02-01] MEDS: ipratropium-albuterol 3 mL Neb INHALATION (08:58)
--- NOTE | 2020-02-01 09:46 | PC.NURSE ---
Dr. Mckeon at bedside making rounds with patient and considering consult with home health for patient. Dr. Mckeon also wants to continue to monitor blood pressure and watch for elevations and be notified if any. will call patients son and consult to ensure patient is back to her baseline to ensure safety for possible discharge home this evening.
[2020-02-01 11:03] LABS: Glucose Point of Care 134 mg/dL (70-110)
--- NOTE | 2020-02-01 11:16 | PC.NURSE ---
BP elevated to 190/62, Dr. Mckeon notified and one time order of Norvasc 5mg PO given over telephone at 1100.
[2020-02-01] MEDS: FUROsemide 10 mg/mL SDV 4mL 40 MG IVP (13:12)
[2020-02-01] MEDS: metoprolol tartrate 25 mg Tablet 12.5 MG PO (13:13)
--- NOTE | 2020-02-01 14:57 | PC.NURSE ---
donor services specialist in room
--- NOTE | 2020-02-01 15:37 | PM.DCS ---
Discharge Providers Date of Admission: 01/28/20 23:12 Date of Discharge: February 01, 2020 Attending Provider at Admission: Woody Boykin Attending Provider at Discharge: Deep Mckeon MD Primary Care Provider: Pascual Kay MD Diagnoses at Discharge Discharge Diagnosis (1) Altered mental status: Status: Acute Problem details: Resolved Qualifiers: Altered mental status type: unspecified Qualified Code(s): R41.82 - Altered mental status, unspecified (2) Pneumonitis: Status: Acute Problem details: Will finish 7 more days of cefdinir (3) Vomiting: Status: Acute (4) Morbid obesity: Status: Acute (5) PVD (peripheral vascular disease): Status: Acute (6) CAD (coronary artery disease): Status: Acute (7) Renal insufficiency: Status: Acute (8) History of heart artery stent: Status: Acute (9) COVID-19 ruled out by laboratory testing: Status: Acute Reason for Visit Reason for Visit: AMS Hospital Course Hospital Course: Carole presented to the hospital January 27, with history of nausea vomiting and lethargy. She was diagnosed with altered mental status. She was empirically started on Rocephin vancomycin and acyclovir. LP was attempted but unsuccessful. Covid 19 was screened and negative. She rapidly improved, and it was not thought that further attempts at lumbar puncture were needed. Pneumonia was noted, on CT scan for which Rocephin was continued. MRSA PCR was done and negative. MRI of the brain was done and negative. By time of discharge on January 31 she was doing much better, feeling back to normal. Family confirms her mental status was back to normal. Blood pressure was elevated and Norvasc was added as well as metoprolol. Patient reports her blood pressures oftentimes in clinic around 170 and she has been on both of those medicines before for treatment of hypertension. I discussed with her following her blood pressures closely, blood sugars closely, and following back up with her primary care provider in clinic with a BMP. Home health will be arranged. It is thought her acute metabolic encephalopathy was secondary to pneumonia. She will finish a course of cefdinir for this. Physical Exam Narrative: EXAM NARRATIVE: General exam no apparent distress Cardiovascular regular rate and rhythm without murmur Lungs clear Abdomen is soft with positive bowel sounds Extremities trace edema Urinary Catheter Management^: Acevedo: Cath Placed During This Visit: yes, but has since been removed by the nurse Reason for Continuing Indwelling Catheter: Accurate Measurement of Urinary Output in Critically Ill Patients Urinary Catheter Date of Insertion: 01/28/20 Urinary Catheter Time of Insertion: 17:51 Date Urinary Catheter Removed: 01/31/20 Time Urinary Catheter Discontinued: 10:00 Discharge Data Data Completed and Pending: Completed Studies During Hospitalization Category Date Time Status CT chest abd pel wo con Stat Cat Scan 01/28/20 18:[address] head wo con* 7 0450 Stat Cat Scan 01/28/20 16:50 Completed XR chest 1V cole ble [id number] Stat Exams 01/28/20 16:42 Completed MR head wo con* 7 0551 Urgent MRI 01/29/20 10:53 Completed Pending at discharge Category Date Time Status Blood Culture Sta t Lab 01/28/20 18:07 Results Respiratory Viral Panel PCR Stat Lab 01/29/20 15:05 Received Sputum Culture an d Gram Stain Routi ne Lab 02/01/20 04:15 Results Labs from last 24 hours 02/01/20 02/01/20 02/01/20 10:55 06:53 02:55 WBC RBC Hgb Hct MCV MCH MCHC RDW Plt Count MPV Neut % (Auto) Lymph % (Auto) [place] % (Auto) Eos % (Auto) Baso % (Auto) Neut # (Auto) Lymph # (Auto) [place] # (Auto) Eos # (Auto) Baso # (Auto) Nucleated RBC % (a uto) Nucleated RBCs # Sodium 140 Potassium 4.0 Chloride 108 H Carbon Dioxide 22 Anion Gap 14.0 BUN 32 H Creatinine 1.7 H Glucose 142 H POC Glucose 134 149 Calculated Osmolal ity 290 Calcium 7.9 L Total Bilirubin 0.2 AST 15 ALT 7 Alkaline Phosphata se 121 H Total Protein 6.2 L Albumin 2.9 L Globulin 3.3 02/01/20 01/31/20 01/31/20 02:55 19:33 16:15 WBC 5.4 RBC 3.06 L Hgb 9.4 L Hct 31.0 L MCV 101.3 H MCH 30.7 MCHC 30.3 RDW 13.3 Plt Count 172 MPV 12.0 H Neut % (Auto) 54.3 Lymph % (Auto) 25.0 [place] % (Auto) 11.4 Eos % (Auto) 7.8 Baso % (Auto) 0.6 Neut # (Auto) 2.91 Lymph # (Auto) 1.3 [place] # (Auto) 0.6 Eos # (Auto) 0.4 Baso # (Auto) 0.0 Nucleated RBC % (a uto) 0 Nucleated RBCs # 0.0 Sodium Potassium Chloride Carbon Dioxide Anion Gap BUN Creatinine Glucose POC Glucose 158 166 Calculated Osmolal ity Calcium Total Bilirubin AST ALT Alkaline Phosphata se Total Protein Albumin Globulin Vitals: Last Vital Signs Temp 97.9 F 02/01/20 10:55 Pulse 71 02/01/20 10:55 Resp 20 H 02/01/20 10:55 BP 190/62 02/01/20 11:00 Pulse Ox 94 02/01/20 10:55 Discharge Plan Discharge Patient Disposition: Home Health Service Condition: Stable Prescriptions: New amlodipine 10 mg Tablet 10 mg PO DAILY Qty: 30 RF: 0 cefdinir 300 mg capsule 300 mg PO BID 7 Days Qty: 14 RF: 0 metoprolol tartrate 25 mg tablet 25 mg PO BID Qty: 60 RF: 0 Continued furosemide 40 mg tablet 40 mg PO DAILY RF: 0 phenytoin sodium extended 100 mg capsule 100 mg PO DAILY RF: 0 levothyroxine 25 mcg tablet 25 mcg PO DAILY RF: 0 pantoprazole 40 mg tablet,delayed release (DR/EC) 40 mg PO DAILY RF: 0 calcitriol 0.5 mcg capsule 0.5 mcg PO DAILY RF: 0 glimepiride 4 mg tablet 4 mg PO DAILY RF: 0 levothyroxine 200 mcg tablet 200 mcg PO DAILY RF: 0 pravastatin 20 mg tablet 20 mg PO DAILY RF: 0 insulin aspart U-100 [Novolog Flexpen U-100 Insulin] 100 unit/mL (3 mL) insulin pen See Rx Instructions .ROUTE .COMPLEX RF: 0 Levemir FlexTouch U-100 Insuln 100 unit/mL (3 mL) insulin pen See Rx Instructions .ROUTE .COMPLEX RF: 0 Eliquis 5 mg tablet 5 mg PO BID RF: 0 Discontinued ibuprofen 800 mg tablet 800 mg PO PRN RF: 0 gabapentin 800 mg tablet 200 mg PO BID RF: 0 potassium chloride 10 mEq tablet,ER particles/crystals 10 meq PO DAILY RF: 0 cephalexin 500 mg capsule 500 mg PO TID RF: 0 Discharge Orders: Discharge Order (Routine); Ordered 02/01/20 Ordered By: Deep Mckeon Referrals: Pascual Kay MD [Primary Care Provider] - 4-7 days (BMP on follow-up) Discharge Diet: Cardiac and Diabetic Discharge Activity: Increase activity as tolerated Activity Restrictions/Additional Instructions: Take all medicine as prescribed Follow-up with your primary care provider with BMP on follow-up Keep track of your blood sugars, and blood pressures for further adjustment of medication with your primary care provider Do not take any anti-inflammatories. Discharge Attestations Time Spent in Discharge Care*: greater than 30 min Quality Metrics Clinical Quality Measures During this hospital stay, did patient experience: None Coding Level of Care Code Acute Big Data Admin for g Fwd Diagnoses Altered mental status R41.82 Altered mental status type: unspecified Pneumonitis J18.9 Vomiting R11.10 Morbid obesity E66.01 PVD (peripheral vascular disease) I73.9 CAD (coronary artery disease) I25.10 Renal insufficiency N28.9 History of heart artery stent Z95.5 COVID-19 ruled out by laboratory testing Z03.818
--- NOTE | 2020-02-01 17:22 | PC.NURSE ---
Patient discharged from unit and exited unit via w/c staff propelled at 1511. All patient belongings sent with patient. Discharge instructions and activity restrictions, and follow up appointments explained to patient and patient verbalized understanding. New medications discussed with patient and patient verbalized understanding. IV removed and catheter tip intact. Patient was tranported to ED department exit where family members awaited to pick patient up.
[2020-02-04 13:29] LABS: Adenovirus Not Detected (Not Detected); Human Metapneumovirus Not Detected (Not Detected); Human Parainflu Virus 1 Not Detected (Not Detected); Human Parainflu Virus 2 Not Detected (Not Detected); Human Parainflu Virus 3 Not Detected (Not Detected); Human Rsv A Not Detected (Not Detected); Influenza A Not Detected (Not Detected); Influenza B Not Detected (Not Detected); Rhinovirus/Enterovirus Not Detected (Not Detected)
== END 2020-02-01 15:11 | disposition home health service (06) | DRG 193 ==
LOC: ER 18:14 → ICU 23:18 → CSU 01-30 18:35
PROVIDERS: Emergency Medicine; Internal Medicine Pulmonary Disease; Student in an Organized Health Care Education/Training Program; Admitting Provider Internal Medicine; Family Provider Family Medicine; PCP Family Medicine; Visit Provider Internal Medicine
DX: J18.9 Pneumonia, unspecified organism (principal); G93.41 Metabolic encephalopathy; G00.9 Bacterial meningitis, unspecified; Z68.43 Body mass index [BMI] 50.0-59.9, adult; E66.01 Morbid (severe) obesity due to excess calories; I25.10 Atherosclerotic heart disease of native coronary artery without angina pectoris; Z20.828 Contact with and (suspected) exposure to other viral communicable diseases; I73.9 Peripheral vascular disease, unspecified; Z95.5 Presence of coronary angioplasty implant and graft; Z79.01 Long term (current) use of anticoagulants; Z79.4 Long term (current) use of insulin; E11.22 Type 2 diabetes mellitus with diabetic chronic kidney disease; E11.51 Type 2 diabetes mellitus with diabetic peripheral angiopathy without gangrene; G40.909 Epilepsy, unspecified, not intractable, without status epilepticus; E78.5 Hyperlipidemia, unspecified; N18.9 Chronic kidney disease, unspecified; E03.9 Hypothyroidism, unspecified
CPT/HCPCS: 12345; 36415; 36416; 36600; 51702; 70450; 70551; 71045; 71250; 74176; 80053; 80061; 80185; 80306; 80307; 81003; 82009; 82140; 82803; 82962; 83036; 83605; 83690; 83735; 83880; 84145; 84443; 84484; 85025; 85049; 85378; 85384; 85610; 85730; 86140; 86403; 87040; 87070; 87205; 87449; 87635; 87641; 87804; 93005; 94640; 94664; 96372; 96375; 97161; 97530; 99283; J0133; J0290; J0696; J1644; J1815; J1940; J2310; J2543; J3370; J7030; J7040; J7050; J7626

== ENCOUNTER 2020-04-17 08:07 | Outpatient (CLI) | payer MEDICARE, MEDICAID, SELFPAY | END 2020-04-17 08:08 | disposition home or self-care (01) | LOC: LAB 08:11 | PROVIDERS: PCP Family Medicine; Visit Provider Nurse Practitioner Family | DX: N89.8 Other specified noninflammatory disorders of vagina (principal) | CPT/HCPCS: 87077; 87086; 87186 ==

== ENCOUNTER 2020-11-13 09:06 | Inpatient (IN) | payer MEDICARE, MEDICAID, SELFPAY ==
[2020-11-13] VITALS (13 sets, daily range): BP systolic 94–119; BP diastolic 42–58; PULSE 69–100; RESP 14–18; TEMP 36.4–37.2; O2SAT 90–98; BMI 53.1
--- NOTE | 2020-11-13 09:32 | XRR_ITS ---
PROCEDURE INFORMATION: Exam: XR Chest Exam date and time: 11/13/2020 9:35 AM Age: 75 years old Clinical indication: Cough and dyspnea; Patient HX: PT unable to provide history; Additional info: Dyspnea/cough. No er physician interpretation TECHNIQUE: Imaging protocol: XR of the chest. Views: 1 view. COMPARISON: CT chest abd pel wo con 01/28/2020 7:11 PM FINDINGS: Lungs: There is pulmonary vascular prominence with bilateral hazy interstitial infiltrates. This could be due to heart failure with interstitial pulmonary edema. Pleural spaces: Unremarkable. No pleural effusion. No pneumothorax. Heart/Mediastinum: The cardiac silhouette is enlarged. There is calcification of the aortic arch. Bones/joints: Unremarkable. XR/XR chest 1V portable [id number] IMPRESSION: Cardiomegaly with vascular prominence and interstitial infiltrates probably due to heart failure with interstitial pulmonary edema.
--- NOTE | 2020-11-13 09:54 | CT_ITS ---
WS: [id number] CT ABDOMEN PELVIS TECHNIQUE: Contrast-enhanced CT of the abdomen and pelvis with coronal and sagittal reformatted image s. CLINICAL INFORMATION: abd pain COMPARISON: CT January 28, 2020 DLP: 3499.[address] scans at [facility] use at least one of these dose optimization techniques: automat ed exposure control; mA and/or kV adjustment per patient size (includes targeted exams where dose is matched to clinical indication); or iterative reconstruction. FINDINGS:Diffuse thickening involving the cecum and right ascending colon with surrounding inflammato ry changes and edema consistent with infectious or inflammatory colitis. Remainder of the colon is no rmal in appearance.Recommend interval follow-up after treatment. No abdominal or pelvic lymphadenopat hy. Mild diffuse fatty infiltration of the liver. Prior cholecystectomy. Normal portal vein and splenic v ein. Small bilateral pleural effusions with slight patchy infiltrates. Bibasilar atelectasis. Fatty atrophy of the pancreas. Splenic granulomas. Normal GE junction. Normal caliber abdominal aorta . Adrenal glands are normal. Bilateral renal cortical atrophy. Left renal cyst measuring 2.6 cm. A few sigmoid diverticuli. No evidence of acute diverticulitis. No evidence of small or large bowel o bstruction. No free fluid in the abdomen or pelvis. CT/CT abdomen pelvis w con* [id number] IMPRESSION: 1. Diffuse thickening with surrounding inflammatory changes and induration inv olving the cecum and right colon consistent with colitis. Recommend interval fo llow-up after treatment. 2. Small and large bowel are otherwise normal in appearance. 3. A few sigmoid diverticuli. 4. Hepatomegaly with diffuse fatty infiltration of the liver. 5. Small bilateral pleural effusions with slight patchy infiltrates and atelec tasis in the lung bases. Correlation for pneumonia. Notified Baldo Rodriguez DO at 11/13/2020 12:48 PM.
--- NOTE | 2020-11-13 10:11 | W.ED.SOB ---
HPI - SOB/Dyspnea General: Chief Complaint: Shortness of Breath/Dyspnea Stated Complaint: SOB, VOMIT Time Seen by Provider: 11/13/20 09:15 History of Present Illness: HPI Narrative: 75 yo female morbidly obese with complaints of abd pain. Pt has large panus - she generally refers pain to the RLQ. She is somewhat lethargic she denies fever at home she has some shortness of breath but no orthopnea she denies fever sweats or chills. She had some episode of vomiting last night and this morning. When I talked to her she focuses more on the abdominal pain and seems to downplay shortness of breath however that was her main complaint to the nurse. She denies chest pain she is diabetic and relies on insulin. She denies any hematochezia melena hematemesis or coffee-ground she has had multiple abdominal surgeries before she does tell me she has had her gallbladder and appendix out. MD elicited complaint: shortness of breath Pertinent past history: diabetes Onset (ago): day(s) Timing: constant Severity: severe Exacerbating factors: nothing Relieving factors: nothing Known history of: diabetes Associated symptoms: Deny abdominal pain, chest congestion, chest pain, cough, diaphoresis, dizziness, extremity pain, fever(s), hemoptysis, lightheadedness, myalgias, nausea, orthopnea, palpitations, paresthesias, polydipsia, polyuria, rash, sense of impending doom, syncope or vomiting Treatment prior to arrival: none Review of Systems Const: Denies: fever(s) or diaphoresis ENMT: Denies: throat pain, ear or mastoid pain, nasal discharge or nasal congestion Card: Denies: chest pain, palpitations, lightheadedness, syncope or orthopnea Resp: Denies: hemoptysis or chest congestion GI: Denies: abdominal pain, nausea or vomiting : Denies: flank pain, difficulty voiding, dysuria, urinary frequency or urinary urgency Musc: Denies: extremity pain Skin/Breast: Denies: rash or pruritus Neuro: Denies: dizziness Endo: Denies: polyuria or polydipsia PFS ED PFSH: Medical History (Updated 11/13/20 @ 13:14 by Baldo Rodriguez DO) CAD (coronary artery disease) Diabetes Dyslipidemia Morbid obesity PVD (peripheral vascular disease) Renal insufficiency Venous stasis Surgical History History of ankle surgery History of cataract surgery History of cholecystectomy History of heart artery stent Social History Smoking and tobacco status: never smoked Marital status: / Physical Exam Const: COMMON NORMALS: no acute distress GENERAL APPEARANCE: cooperative and comfortable ORIENTATION/CONSCIOUSNESS: Yes awake, Yes oriented to person, Yes oriented to place and Yes oriented to time HENMT: COMMON NORMALS: normocephalic, atraumatic and hearing grossly normal bilaterally HEAD & SCALP: normocephalic and atraumatic Neck/C-Spine: COMMON NORMALS: no JVD Resp: COMMON NORMALS: normal respiratory effort, No retractions, No use of accessory muscles and clear to auscultation bilaterally AUSCULTATION: clear to auscultation bilaterally Cardio: COMMON NORMALS: no JVD, regular rate, regular rhythm and No murmurs present (Cardio) RATE: regular rate RHYTHM: regular rhythm GI: COMMON NORMALS: No hepatosplenomegaly present AUSCULTATION: Yes normoactive bowel sounds PALPATION: Yes Tenderness to palpation present (GI), No Guarding due to palpation present (GI) and Yes No hepatosplenomegaly present Extremity: COMMON NORMALS: normal to inspection, capillary refill normal, no clubbing, cyanosis or edema, no calf tenderness and no pedal edema Neuro: SENSORIUM/ORIENTATION: Yes oriented to person, Yes oriented to place and Yes oriented to time Skin: COMMON NORMALS: no rashes or lesions noted GENERAL SKIN EXAM: no rashes or lesions noted Course Vital Signs: Vital signs: Vital Signs Temperature 98.1 F 11/13/20 09:22 Pulse Rate 100 11/13/20 09:22 Respiratory Rate 18 11/13/20 09:22 Blood Pressure 114/58 11/13/20 09:22 Pulse Oximetry 97 11/13/20 09:22 MDM - SOB/Dyspnea MDM Narrative: Medical decision making narrative: Patient right lower lobe pneumonia as well as on CT has a colitis markedly elevated white count is an acute kidney injury. IV fluids are being given will start on IV antibiotics and clear liquid diet supportive cares discussed with Dr. Urrutia patient to be admitted. Lab Data: Labs: Lab Results 11/13/20 11/13/20 Range/Units 10:56 10:56 WBC 32.2 H* (4.0-10.0) 10^3/ uL RBC 3.83 L (4.1-5.3) 10^6/u L Hgb 12.4 (11.5-15.3) g/dL Hct 39.7 (37.0-47.0) % MCV 103.7 H (81-99) fL MCH 32.4 (28.0-34.0) pg MCHC 31.2 (30.0-36.0) g/dL RDW 13.1 (12.1-15.1) % Plt Count 254 (130-400) 10^3/c mm MPV 12.1 H (7.4-10.4) fL Neut % (Auto) 90.2 % Lymph % (Auto) 2.6 % [place] % (Auto) 5.9 % Eos % (Auto) 0.0 % Baso % (Auto) 0.4 % Neut # (Auto) 29.00 H (1.8-7.7) 10^3/u L Lymph # (Auto) 0.8 (0.8-4.8) 10^3/u L [place] # (Auto) 1.9 H (0.2-0.9) 10^3/u L Eos # (Auto) 0.0 (0.0-0.8) 10^3/u L Baso # (Auto) 0.1 (0.0-0.1) 10^3/u L Nucleated RBC % (a uto) 0 % Nucleated RBCs # 0.0 /100WBC Sodium 139 (136-145) mmol/L Potassium 4.7 (3.5-5.1) mmol/L Chloride 98 (98-107) mmol/L Carbon Dioxide 23 (22-29) mmol/L Anion Gap 22.7 H (5-19) BUN 57 H (8-23) mg/dL Creatinine 2.4 H (0.5-0.9) mg/dL GFR Calculation Not Reportable Glucose 372 H (65-115) mg/dL Calculated Osmolal ity 319 H (285-295) mOsm/k g Calcium 8.4 L (8.5-10.5) mg/dL Total Bilirubin 0.7 (0.15-1.2) mg/dL AST 19 (0-32) U/L ALT 8 (0-33) U/L Alkaline Phosphata se 225 H (35-105) IU/L Total Protein 7.3 (6.6-8.7) g/dL Albumin 3.4 L (3.5-5.2) g/dL Globulin 3.9 (1.3-4.6) g/dL Discharge Plan Discharge Patient Disposition: Admitted As Inpatient Clinical Impression: Colitis, Diabetes, Morbid obesity, CAD (coronary artery disease), Community acquired pneumonia Condition: Stable Coding Level of Care Code ED Quality Assurance Supervisor Trim for [facility] Fwd Exam Comprehensive
[2020-11-13] MEDS: ondansetron 2 mg/ML SDV 2 mL 4 MG IVP (10:51)
[2020-11-13] MEDS: FUROsemide 10 mg/mL SDV 4mL 40 MG IVP (10:51)
[2020-11-13 11:04] LABS: Basophils # 0.1 10^3/uL (0.0-0.1); Basophils % 0.4 %; Hematocrit 39.7 % (37.0-47.0); Hemoglobin 12.4 g/dL (11.5-15.3); Lymphocytes # 0.8 10^3/uL (0.8-4.8); Lymphocytes % 2.6 %; Mean Corpuscular HGB Conc 31.2 g/dL (30.0-36.0); Mean Corpuscular Hemoglobin 32.4 pg (28.0-34.0); Mean Corpuscular Volume 103.7 fL (81-99); Mean Platelet Volume 12.1 fL (7.4-10.4); Monocytes # 1.9 10^3/uL (0.2-0.9); Monocytes % 5.9 %; Neutrophils % 90.2 %; Nucleated Red Blood Cells % 0 %; Platelet Count 254 10^3/cmm (130-400); Red Blood Count 3.83 10^6/uL (4.1-5.3); Red Cell Distribution Width 13.1 % (12.1-15.1)
[2020-11-13 11:07] LABS: White Blood Count 32.2 10^3/uL (4.0-10.0)
[2020-11-13 11:29] LABS: Alanine Aminotransferase 8 U/L (0-33); Albumin Level 3.4 g/dL (3.5-5.2); Alkaline Phosphatase 225 IU/L (35-105); Anion Gap 22.7 (5-19); Aspartate Amino Transferase 19 U/L (0-32); Blood Urea Nitrogen 57 mg/dL (8-23); Calcium 8.4 mg/dL (8.5-10.5); Carbon Dioxide 23 mmol/L (22-29); Chloride 98 mmol/L (98-107); Globulin 3.9 g/dL (1.3-4.6); Glucose 372 mg/dL (65-115); Osmolality Calculated 319 mOsm/kg (285-295); Potassium 4.7 mmol/L (3.5-5.1); Sodium 139 mmol/L (136-145); Total Bilirubin 0.7 mg/dL (0.15-1.2); Total Protein 7.3 g/dL (6.6-8.7)
[2020-11-13] MEDS: sodium chloride 0.9% 500 ML 999 ML IV (12:05)
[2020-11-13] MEDS: metroNIDAZOLE IV 500 MG/100 ML PREMIX 100 MG IV (14:18)
[2020-11-13] MEDS: ciprofloxacin 400 MG/200 ML PREMIX 200 MG IV (14:20)
[2020-11-13 15:48] LABS: Lipase 23 U/L (13-60); Magnesium 1.6 mg/dL (1.7-2.3)
[2020-11-13 16:40] LABS: Blood Urine Neg (Negative); Glucose Urine UA 4+ (Normal); Ketones Urine Negative (Negative); Nitrate Urine Negative (Negative); Protein Urine Trace (Negative); Urine Appearance Clear (CLEAR); Urine Color Yellow (Yellow); pH Urine 6.5 (5-7)
[2020-11-13 16:41] LABS: Add Urine Culture? No; Add Urine Microscopic? YES; Bacteria Urine 1+ /hpf; Bilirubin Urine Neg (Negative); Leukocyte Esterase Urine Negative (Negative); Squamous Epithelial Cell Urine 0-4 /hpf (0-5); Urobilinogen Urine Norm (Negative)
[2020-11-13 17:07] LABS: D Dimer 2.77 ug/mIFEU (0-0.59)
--- NOTE | 2020-11-13 17:16 | P.HP_ITS ---
Providers/Chief Complaint Admitting Physician: Rashaad Gutierrez MD Primary Care Provider: Pascual Kay MD Chief Complaint: SOB, VOMIT History of Present Illness Carole Lee is a 75 year old female with morbid obesity CAD, DM, HLD, CKD, seizure disorder, who is brought for evaluation in emergency medicine via EMS. Unable to obtain proper history as patient is sleepy and drowsy during exam not able to get in touch with her son who she lives with. I did speak with her daughter Ms. Norwood who is 600 miles away. On review of chart and ER physician documentation it seems patient was brought into the ER today because of difficulty in breathing and when she presented to the ER she was found to be desaturating so was placed on 6 L nasal cannula oxygen supplementation. During my evaluation as per the ER physician documentation patient has been complaining of generalized pain in her abdomen more so in the right lower quadrant. Patient also tells me that she has been having diarrhea for few days. She also had one episode of vomiting yesterday though she denies any hematochezia or hematemesis. As per the daughter patient's caregiver has been having runny nose, fever and sore throat which they have been thinking from bronchitis. As per the daughter she is not aware of patient received any COVID-19 vaccination. Her blood work in the ER showed a white count 32.2 thousand, hemoglobin of 12.4, platelet count 254, sodium 139, chloride of 98, creatinine of 2.4, BUN of 57, calcium of 8.4, magnesium of 1.6, protein of 7.3, albumin of 3.4 with a UA negative for nitrite or leukoesterase. CT abdomen pelvis was done which showed diffuse thickening of surrounding inflammatory changes and induration involving the cecum and right colon consistent with colitis, small bilateral pleural effusion with patchy infiltrates and atelectasis in the lung base with correlation of pneumonia. Review of Systems General: Reports: ROS unobtainable due to mental status Medications/Allergies Home Medications Medication Instructions Recorded Confirmed Last Taken Type Eliquis 5 mg PO BID 09/08/19 11/13/20 11/11/20 History Levemir FlexTouch U-100 Insuln 60 unit SUBCUT BID 09/08/19 11/13/20 11/11/20 History calcitriol 0.5 mcg PO DAILY 09/08/19 11/13/2021 History furosemide 40 mg PO DAILY 09/08/19 11/13/20 11/11/20 History glimepiride 4 mg PO DAILY 09/08/19 11/13/20 11/11/20 History insulin aspart U-100 [Novolog See Rx Instructions .ROUTE .COMPLEX 09/08/19 11/13/20 11/11/20 History Flexpen U-100 Insulin] levothyroxine 25 mcg PO DAILY 09/08/19 11/13/20 11/11/20 History levothyroxine 200 mcg PO DAILY 09/08/19 11/13/20 11/11/20 History pantoprazole 40 mg PO DAILY 09/08/19 11/13/20 11/11/20 History phenytoin sodium extended 200 mg PO BID 09/08/19 11/13/20 11/11/20 History pravastatin 20 mg PO DAILY 09/08/19 11/13/20 11/11/20 History amlodipine 10 mg PO DAILY #30 tab 02/01/20 11/13/20 11/11/20 Rx chlorthalidone 25 mg PO DAILY 11/13/20 11/13/20 11/11/20 History gabapentin 800 mg PO QID 11/13/20 11/13/20 11/11/20 History losartan 50 mg PO DAILY 11/13/20 11/13/20 11/11/20 History metoprolol succinate 50 mg PO DAILY 11/13/20 11/13/20 11/11/20 History potassium chloride 10 meq PO DAILY 11/13/20 11/13/20 11/11/20 History Allergies Allergy/AdvReac Type Severity Reaction Status Date / Time gentamicin Allergy Unknown Verified 12/17/19 12:01 hydromorphone [From Dilaudid] Allergy Unknown Verified 12/17/19 12:01 PFSH Acute PFSH: Medical History (Updated 11/13/20 @ 17:25 by Rashaad Gutierrez MD) CAD (coronary artery disease) Diabetes Dyslipidemia Morbid obesity PVD (peripheral vascular disease) Renal insufficiency Venous stasis Surgical History History of ankle surgery History of cataract surgery History of cholecystectomy History of heart artery stent Social History Smoking and tobacco status: never smoked Marital status: / Vitals/I&O/Wt Last Vital Signs Temp 98.7 F 11/13/20 16:25 Pulse 78 11/13/20 16:54 Resp 16 11/13/20 16:54 BP 119/50 11/13/20 16:25 Pulse Ox 98 11/13/20 16:54 11/13/20 11/13/20 11/13/20 06:59 14:59 22:59 Intake Total 500 / 500 Balance 500 / 500 Weight last 48 hrs Weight 153.768 kg Physical Exam Narrative: EXAM NARRATIVE: General: Drowsy but arousable, on waking up patient is AO x3, HEENT: PERRLA, pupils bilaterally equal and reactive Chest: Normal vesicular breath sounds, no added sounds, equal good air entry bilaterally CVS: S1-S2 regular, no murmurs, no tachycardia, no gallops, no rubs Abdomen: Soft, morbidly obese, large pannus, tenderness diffuse all over the abd omen more so in the right lower quadrant, difficult to assess for organomegaly because of pannus, bowel sounds sluggish Neuro: Drowsy, AO x3 on arousal, difficult to assess power right now Urinary Catheter Management^: Acevedo: Cath Placed During This Visit: yes Urinary Catheter Date of Insertion: 11/13/20 Urinary Catheter Time of Insertion: 14:58 Data : 11/13/20 10:56 11/13/20 10:56 Micro: Microbiology 11/13/20 16:40 Blood Culture - Preliminary Blood SPECIMEN COLLECTED 11/13/20 16:24 Blood Culture - Preliminary Blood SPECIMEN COLLECTED A&P Assessment and plan (1) Sepsis: Status: Acute (2) Colitis: Status: Acute (3) Community acquired pneumonia: Status: Acute (4) Hjzqh-tr-xghjwqp kidney injury: Status: Acute (5) Renal insufficiency: Status: Acute (6) CAD (coronary artery disease): Status: Acute (7) Diabetes: Status: Acute (8) Morbid obesity: Status: Acute Additional A&P Information 74-year-old female with past medical history of morbid obesity, CAD, peripheral vascular disease presented to the ER via EMS with possible complaint of abdominal pain and difficulty in breathing found to be saturating in 80s requiring 6 L oxygen saturation found to have diffuse colitis on CT abdomen pelvis and possible pneumonia. Sepsis: Criteria met with leukocytosis, borderline blood pressures on admission, tachypnea. Sepsis secondary to colitis and community-acquired pneumonia: Keep mean arterial pressures around 65. 500 cc bolus followed by 100 cc/h. Monitor for fluid overload. Blood culture stat, urine culture, sputum culture, urine Legionella, proBNP, procalcitonin, MRSA swab, flu swab, stool for C. difficile, D-dimer. Check Covid antigen and Covid PCR. Isolation precautions. Keep saturation over 95%. Wean off oxygen supplementation accordingly. Advair, Spiriva. Start patient on vancomycin and Zosyn for broad antibiotic coverage. Also start on azithromycin to cover for atypicals. We'll de-escalate antibiotics as per the culture results. Echocardiogram for EF. CT chest without contrast. Patient already got contrast load for CT abdomen pel vis in the ER and she has TIFFANY on CKD for now. Hypertension: Goal blood pressure less than 140/90 of Hg. Continue with home dose of metoprolol, amlodipine. For now hold off on losartan because of acute kidney injury. Will monitor blood pressures and add medications accordingly. TIFFANY on chronic kidney disease: Goals creatinine seems to be around 2. 2.4 today. Patient also got contrast load in the ER for CT abdomen pelvis contrast. Most likely secondary to sepsis. Fluid as above. Medical reconciliation done for nephrotoxic drugs. Diabetes mellitus: Insulin sliding scale at high-dose protocol every 6 hours as patient will be n.p.o. Patient is on Lantus 60 units twice daily. For now started on 60 units nightly. Patient will be n.p.o. for now. Morbid obesity CAD CODE STATUS: On discussion with CODE STATUS with patient she would want to be full code for now. Patient states her DPOA will be her son who she lives with. She states her son's name is Jimi Lee. Bishop help with DVT prophylaxis. N.p.o. for now. We will retry to speak with son later in the day today. For now I have discussed patient's care with her daughter on phone. Attestations Medical Necessity Statement*: Admission for more than 2 midnights for evaluation and management of sepsis secondary to colitis and pneumonia, hypoxic respiratory failure requiring 6 L oxygen supplementation Time Spent in Patient Care: Greater than 35 minutes (>than 50% of time spent in counselling and/or direct pt care on unit) . 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
[2020-11-13 17:17] LABS: NT Pro B Type Natriuretic Pept 4932 pg/mL (0-450); Procalcitonin 2.02 ng/mL (0-0.5); Thyroid Stimulating Hormone 0.43 uIU/mL (0.27-4.20)
[2020-11-13 17:22] LABS: Lactic Sepsis W/Reflex 4.6 mmol/L (0.5-2.2)
--- NOTE | 2020-11-13 17:24 | CTR_ITS ---
PROCEDURE INFORMATION: Exam: CT Chest Without Contrast; Diagnostic Exam date and time: 11/13/2020 1:42 AM Age: 75 years old Clinical indication: Shortness of breath; Prior surgery; Surgery type: Gb; Patient HX: SOB. History of copd. ; Additional info: Copd/pna TECHNIQUE: Imaging protocol: Diagnostic computed tomography of the chest without contrast. Radiation optimization: All CT scans at this facility use at least one of these dose optimization techniques: automated exposure control; mA and/or kV adjustment per patient size (includes targeted exams where dose is matched to clinical indication); or iterative reconstruction. COMPARISON: CT chest abd pel wo con 01/28/2020 7:11 PM RADIATION DOSE METRICS: Total DLP (mGy-cm): 1273.51 FINDINGS: Lungs: There is patchy opacity in the inferior aspect of the right upper lobe, along with opacities at both lung bases. Pleural spaces: Small right pleural effusion. Tiny left pleural effusion. Heart: There is mild cardiomegaly. Aorta: Unremarkable. No aortic aneurysm. Lymph nodes: Unremarkable. No enlarged lymph nodes. Gallbladder and bile ducts: There has been a cholecystectomy. Bones/joints: Unremarkable. No acute fracture. Soft tissues: Unremarkable. CT/CT chest wo con [id number] IMPRESSION: 1. Mild cardiomegaly. 2. Small right pleural effusion. Tiny left pleural effusion. 3. Bilateral pulmonary opacities which may be secondary to pneumonia or atelectasis. Radiation Dose CTDIVOL = (mGy): DLP = 1273.51 (mGy-cm)
[2020-11-13 17:29] LABS: Iron 27 ug/dL (37-145); Percent Saturation 14.4 % (20-50); Total Iron Binding Capacity 187 mcg/dl; Unsaturated Iron Binding 160 ug/dL (112-347)
[2020-11-13 18:09] LABS: Glucose Point of Care 364 mg/dL (70-110)
[2020-11-13 18:13] LABS: Influenza A by IFA Negative (Negative); Influenza B by IFA Negative (Negative)
[2020-11-13 18:14] LABS: SARS Covid-2 Antigen Negative (Negative)
[2020-11-13] MEDS: sodium chloride 0.9% 500 ML IV ×2 (18:26→20:13)
[2020-11-13] MEDS: sodium chloride 0.9% 1,000 ML 100 ML IV (18:29)
[2020-11-13 18:30] LABS: Reflex Lactate Order REFLEX LACTIC ORDERD
[2020-11-13] MEDS: piperacillin-tazobactam 3.375 GM in sodium chloride 0.9% (plus) 50 ML IV (18:30)
[2020-11-13] MEDS: magnesium sulfate premix 2 GM/50 ML PIGGYBACK IV (18:35)
[2020-11-13 20:06] LABS: Lactic Acid level (Lactate) 3.1 mmol/L (0.5-2.2)
[2020-11-13] MEDS: vancomycin 1,500 MG/300 ML PIGGYBACK 200 MG IV (20:14)
[2020-11-13] MEDS: insulin glargine 100 units/1 mL 60 UNIT SUBCUT (20:21)
[2020-11-13] MEDS: phenytoin ER 100 mg Capsule 200 MG PO (20:26)
[2020-11-13] MEDS: apixaban 5 mg Tablet PO (20:26)
[2020-11-13 23:41] LABS: Glucose Point of Care 281 mg/dL (70-110)
[2020-11-14] VITALS (12 sets, daily range): BP systolic 101–124; BP diastolic 62–74; PULSE 65–76; RESP 16–18; TEMP 36.3–37.3; O2SAT 90–100
[2020-11-14] MEDS: piperacillin-tazobactam 3.375 GM in sodium chloride 0.9% (plus) 50 ML IV ×3 (01:18→17:51)
--- NOTE | 2020-11-14 02:04 | PC.NURSE ---
pt requested to stand and reposition. this nurse along with DU Pelletier assisted pt to sit on the edge of the bed. nursing staff then proceeded to help pt up using front wheeled walker. pt stood at the side of bed for a second while nursing staff adjusted and straightened bed sheets, pt sat back down. pt requested to stand again and reposition. nursing staff again assisted pt. pt stood for about 20-30 seconds before knees began to buckle and pt sat on bed. pt requested once more to stand. nursing staff informed pt that the bed sheets were straightened in order to reposition and scoot pt up in bed. pt began standing again. nursing staff assisted once more. pt took two small steps up toward the head of bed, standing for about another 20-40 seconds, then pt's knees buckled again, pt barely sat on edge of bed. nursing staff assisted pt to lay back down in bed and used the hover mat to slide pt up in bed.
[2020-11-14 05:23] LABS: Glucose Point of Care 191 mg/dL (70-110)
[2020-11-14 05:55] LABS: Basophils # 0.1 10^3/uL (0.0-0.1); Basophils % 0.4 %; Eosinophils % 0.1 %; Hematocrit 34.2 % (37.0-47.0); Hemoglobin 10.3 g/dL (11.5-15.3); Lymphocytes # 1.6 10^3/uL (0.8-4.8); Lymphocytes % 5.5 %; Mean Corpuscular HGB Conc 30.1 g/dL (30.0-36.0); Mean Corpuscular Hemoglobin 31.7 pg (28.0-34.0); Mean Corpuscular Volume 105.2 fL (81-99); Mean Platelet Volume 11.9 fL (7.4-10.4); Monocytes # 1.4 10^3/uL (0.2-0.9); Monocytes % 4.9 %; Neutrophils # 25.56 10^3/uL (1.8-7.7); Neutrophils % 88.1 %; Nucleated Red Blood Cells % 0 %; Platelet Count 205 10^3/cmm (130-400); Red Blood Count 3.25 10^6/uL (4.1-5.3); Red Cell Distribution Width 13.3 % (12.1-15.1)
--- NOTE | 2020-11-14 06:00 | XRR_ITS ---
PROCEDURE INFORMATION: Exam: XR Chest Exam date and time: 11/14/2020 1:55 AM Age: 75 years old Clinical indication: Shortness of breath; Prior surgery; Surgery type: Gb; Patient HX: SOB. History of copd. ; Additional info: Covid TECHNIQUE: Imaging protocol: XR of the chest. Views: 1 view. COMPARISON: CR XR chest 1V portable [id number] 11/13/2020 9:34 AM FINDINGS: Lungs: Stable, Patchy bilateral opacities are present and may represent atelectasis or pneumonia. Pleural spaces: Unremarkable. No pleural effusion. No pneumothorax. Heart/Mediastinum: There is mild cardiomegaly. Bones/joints: Unremarkable. XR/XR chest 1V portable [id number] IMPRESSION: 1. Stable, Patchy bilateral opacities are present and may represent atelectasis or pneumonia. 2. Mild cardiomegaly.
[2020-11-14 06:19] LABS: Estmated Average Glucose 148; Hemoglobin A1C 6.8 % (4.0-6.0)
[2020-11-14 06:23] LABS: Phosphorus 3.9 mg/dL (2.5-4.5)
[2020-11-14 06:42] LABS: Alanine Aminotransferase 9 U/L (0-33); Albumin Level 2.8 g/dL (3.5-5.2); Alkaline Phosphatase 157 IU/L (35-105); Anion Gap 16.7 (5-19); Aspartate Amino Transferase 26 U/L (0-32); Blood Urea Nitrogen 60 mg/dL (8-23); Carbon Dioxide 25 mmol/L (22-29); Chloride 101 mmol/L (98-107); Globulin 3.6 g/dL (1.3-4.6); Glucose 165 mg/dL (65-115); Osmolality Calculated 307 mOsm/kg (285-295); Potassium 4.7 mmol/L (3.5-5.1); Sodium 138 mmol/L (136-145); Total Bilirubin 0.5 mg/dL (0.15-1.2); Total Protein 6.4 g/dL (6.6-8.7)
[2020-11-14] MEDS: amlodipine 10 mg Tablet PO (08:36)
[2020-11-14] MEDS: atorvastatin 40 mg Tablet 20 MG PO (08:36)
[2020-11-14] MEDS: levothyroxine 25 mcg Tablet PO (08:36)
[2020-11-14] MEDS: zinc gluconate 50 mg Tablet PO (08:36)
[2020-11-14] MEDS: pantoprazole DR 40 mg Tablet PO (08:36)
[2020-11-14] MEDS: potassium chloride ER 10 mEq Tablet PO (08:36)
[2020-11-14] MEDS: ferrous gluconate 324 mg Tablet PO ×2 (08:36→17:30)
[2020-11-14] MEDS: metoprolol succinate ER (24 HR) 50 mg Tablet PO (08:36)
[2020-11-14] MEDS: apixaban 5 mg Tablet PO ×2 (08:36→21:09)
[2020-11-14] MEDS: phenytoin ER 100 mg Capsule 200 MG PO ×2 (08:36→17:30)
[2020-11-14] MEDS: sodium chloride 0.9% 1,000 ML 100 ML IV (08:37)
[2020-11-14] MEDS: azithromycin 500 MG in sodium chloride 0.9% 250 ML 250 MG IV (09:57)
[2020-11-14] MEDS: levothyroxine 200 mcg Tablet PO (09:57)
[2020-11-14] MEDS: ondansetron 2 mg/ML SDV 2 mL 4 MG IVP (10:33)
[2020-11-14 11:24] LABS: Glucose Point of Care 141 mg/dL (70-110)
[2020-11-14] MEDS: sodium chloride 0.9% 1,000 ML 999 ML IV (11:55)
[2020-11-14 12:46] LABS: Lactic Sepsis W/Reflex 1.6 mmol/L (0.5-2.2)
--- NOTE | 2020-11-14 13:35 | PM.PN ---
Subjective Subjective: Interval history: No acute events overnight. On examination patient is more awake and alert today. She is not drowsy but sleepy. AOx3. Complaining of mild abdominal pain. Had one episode of bilious vomiting today morning. Has remained hemodynamically stable overnight with T-max in last 24 hours since admission tonight. She is currently on 3 L oxygen supplementation saturating 94%. Was able to get in touch with her son Jimi over the phone. He states she has not been taking the medication for last 3 days and has been moaning and groaning for 24 hours prior to coming in. Other than that he is not aware of any other symptoms. He did not think that she had any dysuria or difficulty breathing but she did he does think that he has been having diarrhea occasionally for last couple of days. He also states patient's caregiver has been diagnosed with bronchitis and was reportedly Covid negative when tested earlier in the week. He is not aware of any medication changes and thinks the last 3 days patient has been compliant with the medications. Vitals/I&O/Wt Last Vital Signs Temp 99.1 F 11/14/20 11:11 Pulse 76 11/14/20 11:11 Resp 18 11/14/20 11:11 BP 122/70 11/14/20 11:11 Pulse Ox 90 11/14/20 11:11 11/13/20 11/14/20 11/14/20 22:59 06:59 14:59 Intake Total 2078.333 / 2578.333 731.667 / 3310.000 250 / 250 Output Total 425 / 425 Balance 2078.333 / 2578.333 306.667 / 2885.000 250 / 250 Weight last 48 hrs Weight 154.221 kg Weight 153.768 kg Physical Exam Narrative: EXAM NARRATIVE: General: Sleepy but not drowsy, AO x3, on 3.5 L HEENT: PERRLA, pupils bilaterally equal and reactive Chest: Normal vesicular breath sounds, no added sounds, equal good air entry bilaterally CVS: S1-S2 regular, no murmurs, no tachycardia, no gallops, no rubs Abdomen: Soft, morbidly obese, large pannus, tenderness diffuse all over the abdomen more so in the right lower quadrant, difficult to assess for organomegaly because of pannus, bowel sounds sluggish Neuro: Drowsy, AO x3 on arousal, difficult to assess power right now Urinary Catheter Management^: Acevedo: Cath Placed During This Visit: yes Reason for Continuing Indwelling Catheter: Acute Urinary Retention or Obstruction Urinary Catheter Date of Insertion: 11/13/20 Urinary Catheter Time of Insertion: 14:58 Data : 11/14/20 05:43 11/14/20 05:43 Micro: Microbiology 11/13/20 17:00 MRSA Culture - Final Nose 11/13/20 14:21 Urine Culture - Preliminary Urine,Voided 11/13/20 14:21 Legionella Urinary Antigen - Final Unknown Source 11/13/20 16:40 Blood Culture - Preliminary Blood SPECIMEN COLLECTED 11/13/20 16:24 Blood Culture - Preliminary Blood SPECIMEN COLLECTED A&P Assessment and plan (1) Sepsis: Status: Acute (2) Colitis: Status: Acute (3) Community acquired pneumonia: Status: Acute (4) Gcfxe-to-djopvbt kidney injury: Status: Acute (5) Renal insufficiency: Status: Acute (6) CAD (coronary artery disease): Status: Acute (7) Diabetes: Status: Acute (8) Morbid obesity: Status: Acute Additional A&P Information 74-year-old female with past medical history of morbid obesity, CAD, peripheral vascular disease presented to the ER via EMS with possible complaint of abdominal pain and difficulty in breathing found to be saturating in 80s requiring 6 L oxygen saturation found to have diffuse colitis on CT abdomen pelvis and possible pneumonia. Sepsis: Criteria met with leukocytosis, borderline blood pressures on admission, tachypnea. Sepsis secondary to colitis and community-acquired pneumonia: Keep mean arterial pressures around 65. Give 1 L bolus. Continue with normal saline 100 cc/h. Monitor for fluid overload. Blood culture, urine culture, sputum culture awaited. Urine Legionella negative. Procalcitonin mildly elevated, proBNP mildly elevated. Flu swab negative, MRSA swab results awaited. D-dimer elevated but unfortunately because of TIFFANY cannot get CTA. Will do lower limb Dopplers. For now we will continue with home dose of Eliquis 5 mg twice daily. Feet evaluated. Patient has not had a bowel movement since admission. Covid antigen negative. PCR results awaited. Continue with isolation precautions for now. Keep saturation over 95%. Wean off oxygen supplementation accordingly. Advair, Spiriva. Continue with vancomycin and Zosyn for now. Adjust antibiotic as per culture results. Continue with azithromycin to finish a 3-day course. Echocardiogram for EF results awaited. CT chest results appreciated. Hypertension: Goal blood pressure less than 140/90 mmHg. Continue with home dose of metoprolol, amlodipine. Monitor blood pressures at the mildly soft but better today. For now hold off on losartan because of acute kidney injury. Will monitor blood pressures and add medications accordingly. TIFFANY on chronic kidney disease: Baseline creatinine seems to be around 2. Creatinine worsening today. CT abdomen pelvis done not concerning for pyelonephritis, hydronephrosis or obstructive uropathy. Check urine lites, urine creatinine to urine sample from yesterday. Continue with IV fluids as above. Most likely secondary to sepsis. Fluid as above. Medical reconciliation done for nephrotoxic drugs. Diabetes mellitus: As patient is will not be able to take proper p.o. diet we will check blood sugars every 6 hours. Continue Lantus 60 units daily for now rather than twice daily which she takes at home. Sliding scale at low-dose protocol. Morbid obesity CAD CODE STATUS: On discussion with CODE STATUS with patient she would want to be full code for now. Patient states her DPOA will be her son who she lives with. She states her son's name is Jimi Lee. Bishop help with DVT prophylaxis. Patient is more awake today start her on full liquid diet for now. Patient's care discussed in detail with her son who is also her DPOA in detail over the phone. All the questions were answered. He is agreeable. Guarded prognosis. No threshold to move to ICU. Attestations Medical Necessity Statement*: Requires further hospitalization for management of sepsis due to colitis, TIFFANY and chronic kidney disease, morbid obesity, type 2 diabetes mellitus Time Spent in Patient Care: Greater than 35 minutes (>than 50% of time spent in counselling and/or direct pt care on unit). Coding Level of Care Code Acute Marketing Strategy Lead for [facility] Fwd Diagnoses Sepsis A41.9 Colitis K52.9 Community acquired pneumonia J18.9 Btzap-su-iqoeadi kidney injury N17.9; N18.9 Renal insufficiency N28.9 CAD (coronary artery disease) I25.10 Diabetes E11.9 Morbid obesity E66.01
[2020-11-14 14:08] LABS: Coronavirus Test Green County Not Detected
[2020-11-14] MEDS: multivitamin therapeutic Tablet 1 TAB PO (14:25)
[2020-11-14] MEDS: thiamine 100 mg Tablet PO (14:25)
[2020-11-14 14:29] LABS: Potassium, Radom Urine 34 mmol/L; Urine Random Chloride 62 mmol/L; Urine Random Sodium 82 mmol/L
[2020-11-14 14:32] LABS: Creatinine Urine, Random 4 mg/dL (28-217)
[2020-11-14 14:44] LABS: Folate Level 19.8 ng/mL (4.8-37.3)
[2020-11-14 14:53] LABS: Vitamin B12 370 pg/mL (232-1245)
--- NOTE | 2020-11-14 16:43 | USCV_ITS ---
Carole Lee Age: 75 Gender: F : 1945 Exam Date: 11/14/2020 12:41 Ordering Phys: Rashaad Gutierrez MD Technologist: Mellissa Levi Exam Location: [facility] [place] Indication: R/O DVT HISTORY: 2018 patient had partial occlusion of RT popliteal vein and full occlusion of right peroneal vein. PROCEDURES: The following venous structures were evaluated: common femoral vein, profunda vein, proximal portion of the greater saphenous vein, superficial femoral vein, and the popliteal vein. FINDINGS: VERY TDS due to body habitus. Right FV mid to distal segment not visualized well. Left mid to distal FV not visualized well. Cannot rule out thrombus due to ultrasound limitations using the abdomen transducer. Popliteal vein bilaterally not well visualized due to limitations of patient positioning and body habitus. No DVT seen in the vessels that can be visualized by ultrasound. CONCLUSIONS Very Limited examination due to body habitus. Veins only segmentally evaluated and patent where seen Right and left Femoral veins mid to distal not well evaluated. Popliteal veins bilaterally not well visualized Gurpreet Castro MD (Electronically Signed) Final Date: 14 Nov 2020 15:46 S
[2020-11-14 16:58] LABS: Glucose Point of Care 242 mg/dL (70-110)
[2020-11-14] MEDS: folic acid 1 mg Tablet PO (17:30)
[2020-11-14] MEDS: insulin glargine 100 units/1 mL 60 UNIT SUBCUT (21:09)
[2020-11-14 21:12] LABS: Glucose Point of Care 203 mg/dL (70-110)
--- NOTE | 2020-11-14 23:40 | ECG_ITS ---
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 Measurements Intervals [place] Rate: 66 P: 53 IN: 196 QRS: 11 QRSD: 119 T: 234 QT: 498 QTc: 522 Interpretive Statements SINUS RHYTHM WITH OCCASIONAL SUPRAVENTRICULAR PREMATURE COMPLEXES LOW QRS VOLTAGE [QRS DEFLECTION < 0.5/1.0 mV IN LIMB/CHEST LEADS] MODERATE INTRAVENTRICULAR CONDUCTION DELAY [105+ ms QRS DURATION, 80+ ms Q/S IN V1/V2, NO Q AND 60+ ms R IN I/aVL/V5/V6] ST DEVIATION AND MODERATE T-WAVE ABNORMALITY, CONSIDER ANTEROLATERAL ISCHEMIA [-0.1+ mV T WAVE IN V3-V6] ST DEVIATION AND MODERATE T-WAVE ABNORMALITY, CONSIDER INFERIOR ISCHEMIA [-0.1+ mV T WAVE IN II/aVF] Compared to ECG 01/28/2020 23:02:33 Low QRS voltage now present T-wave abnormality now present Possible ischemia now present Electronically Signed On 11-19-2020 12:16:53 CDT by Rupinder Melchor M.D. [id number]
[2020-11-15] VITALS (148 sets, daily range): BP systolic 85–154; BP diastolic 36–75; PULSE 51–197; RESP 11–32; TEMP 36–36.9; O2SAT 85–100
--- NOTE | 2020-11-15 | PC.NURSE ---
Cardiac Rhythm change Nurse noticed a change in patient's cardiac rhythm. This nurse assessed patient finding patient resting well with eyes closed with no symptoms of cardiac issues or pain. Patient was woken up and reported no pain, pressure, or nausea stating I feel fine Vitals were within normal limits. Even though there were no cardiac symptoms that were clearly recognizable, this nurse felt the patient required further evaluation. This nurse looked through previous telemetry strips finding that patient had been in and out of this rhythm throughout the day. Physician notified of change in rhythm beginning earlier in the day with no sign or symptoms of cardiac concern. Nurse provided digital image of cardiac rhythm of concern to Dr. Berkowitz. Response from physician is to obtain EKG and Troponin lab protocol. Physician placed orders for these interventions. Will continue to observe patient and report any new symptoms or decline.
--- NOTE | 2020-11-15 00:20 | PM.EVENT ---
Event Note Event Note: Nurse Yessica notified me about T wave inversions noticed on tele Stat EKG and troponin series were requested along D dimer Pt was asymptomatic with no sginificant chaneg in vitals Troponin came back >1000 around midnight, ACS protocol initiated, loading dose of aspirin and plavix added No lisinopril because of TIFFANY patient already on toprol Stop eliquis EKG Showing NSTEMI
[2020-11-15 00:26] LABS: D Dimer 2.16 ug/mIFEU (0-0.59)
[2020-11-15 00:39] LABS: Glucose Point of Care 217 mg/dL (70-110)
[2020-11-15 00:40] LABS: Troponin(5th) Baseline 1184 ng/L (0-10)
[2020-11-15 00:50] LABS: Platelet Count 194 10^3/cmm (130-400)
[2020-11-15] MEDS: sodium chloride 0.9% 1,000 ML 100 ML IV ×2 (01:09→14:31)
[2020-11-15] MEDS: clopidogrel 300 mg Tablet PO (01:09)
[2020-11-15] MEDS: aspirin 325 mg EC Tablet PO (01:09)
[2020-11-15] MEDS: piperacillin-tazobactam 3.375 GM in sodium chloride 0.9% (plus) 50 ML IV ×3 (01:09→23:17)
--- NOTE | 2020-11-15 01:40 | ECG_ITS ---
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 Measurements Intervals [place] Rate: 64 P: 64 FL: 224 QRS: 28 QRSD: 111 T: 240 QT: 455 QTc: 470 Interpretive Statements SINUS RHYTHM WITH SINUS ARRHYTHMIA WITH FIRST DEGREE AV BLOCK LOW QRS VOLTAGE MODERATE INTRAVENTRICULAR CONDUCTION DELAY ST DEVIATION AND MODERATE T-WAVE ABNORMALITY, CONSIDER ANTEROLATERAL ISCHEMIA ST DEVIATION AND MODERATE T-WAVE ABNORMALITY, CONSIDER INFERIOR ISCHEMIA Compared to ECG 01/28/2020 23:02:33 First degree AV block now present Low QRS voltage now present T-wave abnormality now present Possible ischemia now present Electronically Signed On 11-21-2020 17:45:54 CDT by Rupinder Melchor M.D. [id number]
[2020-11-15 02:44] LABS: Troponin 5 2HR 1348 ng/L (0-10)
[2020-11-15 02:53] LABS: Troponin 5 2HR Delta 164 ABS# (0-10)
--- NOTE | 2020-11-15 05:40 | ECG_ITS ---
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 Measurements Intervals [place] Rate: 69 P: -70 MI: 150 QRS: 26 QRSD: 113 T: 218 QT: 474 QTc: 508 Interpretive Statements SINUS RHYTHM LOW QRS VOLTAGE [QRS DEFLECTION < 0.5/1.0 mV IN LIMB/CHEST LEADS] ANTEROSEPTAL MYOCARDIAL INFARCTION [40+ ms Q WAVE IN V1-V4], OF INDETERMINATE AGE MODERATE T-WAVE ABNORMALITY, CONSIDER LATERAL ISCHEMIA MODERATE T-WAVE ABNORMALITY, CONSIDER INFERIOR ISCHEMIA Compared to ECG 11/15/2020 01:54:45 Myocardial infarct finding now present Sinus arrhythmia no longer present First degree AV block no longer present Intraventricular conduction delay no longer present T-wave abnormality still present Possible ischemia still present Electronically Signed On 11-21-2020 17:45:20 CDT by Rupinder Melchor M.D. [id number]
--- NOTE | 2020-11-15 06:00 | USCV_ITS ---
Carole Lee Age: 75 Gender: F : 1945 Exam Date: 11/15/2020 06:37 Ordering Phys: Rashaad Gutierrez MD Technologist: Exam Location: [facility] [place] Indication: CHEST PAIN BP: 140 / 73 HR: Rhythm: Sinus Technical Quality: Poor because of body habitus MEASUREMENTS (Male / Female) Normal Values 2D ECHO LV Diastolic Diameter PLAX 5.0 cm 4.2 - 5.9 / 3.9 - 5.3 cm LV Systolic Diameter PLAX 4.1 cm IVS Diastolic Thickness 1.1 cm 0.6 - 1.0 / 0.6 - 0.9 cm IVS Systolic Thickness 1.3 cm LVPW Diastolic Thickness 1.2 cm 0.6 - 1.0 / 0.6 - 0.9 cm LVPW Systolic Thickness 1.2 cm LVOT Diameter 2.0 cm LV Ejection Fraction 2D Teich 38.8 % LV Ejection Fraction MOD 2C 18.9 % LV Ejection Fraction 2C AL 17.0 % LA Diameter 4.0 cm LA Width 4.4 cm LA Height 6.3 cm RA Width 5.0 cm RA Height 5.3 cm M-MODE LV Diastolic Diameter MM 5.4 cm 4.2 - 5.9 / 3.9 - 5.3 cm LV Systolic Diameter MM 3.6 cm LV Ejection Fraction MM Teich 62.0 % IVS Diastolic Thickness MM 1.2 cm 0.6 - 1.0 / 0.6 - 0.9 cm IVS Systolic Thickness MM 1.7 cm LVPW Diastolic Thickness MM 1.2 cm 0.6 - 1.0 / 0.6 - 0.9 cm LVPW Systolic Thickness MM 2.0 cm RV Diastolic Diameter MM 2.2 cm Aortic Annulus Diameter 3.3 cm LA Ao Ratio MM 1.3 MV E Point Septal Separation 2.0 cm DOPPLER AV Peak Velocity 147.0 cm/s LVOT Peak Velocity 65.0 cm/s AV Area Cont Eq vti 1.5 cm squared AV Area Cont Eq pk 1.4 cm squared MV Area PHT 5.0 cm squared Mitral E to A Ratio 1.3 MV E' Velocity 114.0 cm/s TR Peak Velocity 231.3 cm/s TR Peak Gradient 21.4 mmHg TV Peak E Velocity 85.0 cm/s Right Atrial Pressure 3.0 mmHg Pulmonary Artery Systolic Pressu 24.4 mmHg PV Peak Velocity 86.0 cm/s FINDINGS Left Ventricle Diffuse hypokinesia of the septum, anteroseptal, inferior wall and LV apex. Ejection fraction around 40% Right Ventricle Transverse echodense structure at the RV apex possible moderator band Right Atrium The right atrium is normal in size. Left Atrium Mildly increased left atrial size. Mitral Valve Thickened mitral valve. Mild mitral annular calcification. Mild mitral valve regurgitation. Aortic Valve Thickened aortic valve. Tricuspid Valve No gross abnormalities noted Pulmonic Valve No gross abnormalities noted Pericardium No pericardial effusion. Aorta Normal ascending aorta dimension. CONCLUSIONS Multiple wall motion normalities with diminished LV ejection fraction of 40%. Thickened mitral valve. Mild mitral annular calcification. Mild mitral valve regurgitation. Mildly increased left atrial size. Thickened aortic valve. Transverse echodense structure at the RV apex possible moderator band There is no pericardial effusion. Technically difficult study because of the poor ultrasonic window. Dr Antonietta Jo MD FACC (Electronically Signed) Final Date: 15 Nov 2020 09:31 S
[2020-11-15 06:13] LABS: Hematocrit 31.7 % (37.0-47.0); Hemoglobin 9.5 g/dL (11.5-15.3); Mean Corpuscular Hemoglobin 31.7 pg (28.0-34.0); Mean Corpuscular Volume 105.7 fL (81-99); Mean Platelet Volume 11.8 fL (7.4-10.4); Platelet Count 190 10^3/cmm (130-400); Red Cell Distribution Width 13.6 % (12.1-15.1); White Blood Count 20.2 10^3/uL (4.0-10.0)
[2020-11-15 06:17] LABS: Glucose Point of Care 174 mg/dL (70-110)
[2020-11-15 06:31] LABS: Alanine Aminotransferase 18 U/L (0-33); Albumin Level 2.6 g/dL (3.5-5.2); Alkaline Phosphatase 134 IU/L (35-105); Anion Gap 18.4 (5-19); Aspartate Amino Transferase 45 U/L (0-32); Blood Urea Nitrogen 72 mg/dL (8-23); Calcium 7.4 mg/dL (8.5-10.5); Carbon Dioxide 23 mmol/L (22-29); Chloride 101 mmol/L (98-107); Globulin 2.9 g/dL (1.3-4.6); Glucose 170 mg/dL (65-115); Osmolality Calculated 309 mOsm/kg (285-295); Potassium 5.4 mmol/L (3.5-5.1); Sodium 137 mmol/L (136-145); Total Bilirubin 0.6 mg/dL (0.15-1.2); Total Protein 5.5 g/dL (6.6-8.7)
[2020-11-15 06:44] LABS: Troponin 5 6HR 1276 ng/L (0-10)
[2020-11-15 06:45] LABS: Troponin 5 6HR Delta 92 ng/L (0-12)
[2020-11-15 07:12] LABS: Absolute Eosinophils 0.2 10^3/cmm (0.0-0.7); Absolute Segmented Neutrophil 14.9 10/cmm (1.6-7.1); Band Neutrophils Absolute 4.2 10^3/cmm (0.0-1.2); Eosinophils 1 %; Lymphocytes 4 %; Segmented Neutrophils 74 %; Total Cells Counted 100 (0-100)
[2020-11-15 07:15] LABS: Absolute Neutrophil 19.2 10^3/cmm (1.4-6.5); Macrocytosis 1+; Platelet Estimate Normal (Normal)
[2020-11-15 07:25] LABS: Lymphocytes Absolute 0.8 10^3/cmm (1.2-3.4)
--- NOTE | 2020-11-15 08:06 | P.CONIM_ITS ---
Providers/Reason For Consult Consulting Physican/Specialty*: JERRY Jo MD/cardiology Reason for Consult*: Patient with abnormal EKG/elevated troponin T Requesting Physcian: Rashaad Gutierrez Attending Physician: Rashaad Gutierrez MD Primary Care Provider: Pascual Kay MD History of Present Illness History of Present Illness Carole Lee is a 75 year old female history of atherosclerotic heart disease, peripheral artery disease, status post [employer] MA[employer]GER of the left tibioperoneal trunk, type 2 diabetes, dyslipidemia, chronic kidney disease, seizure disorder, chronic venous stasis and lower extremity DVT, is presenting with complaints of fever, chills, shortness of breath and abdominal pain with the diarrhea. He is diagnosed with colitis and possible pneumonia. COVID-19 was ruled out. She started having chest pain last night. She was found to have elevated troponin T at the baseline with a significant delta at 2 hours and 6 hours. Cardiology consult is requested for further cardiac evaluation recommendations. Patient is a very poor historian. She is known to have atherosclerotic heart disease and had a myocardial infarction almost 20 years ago. The details are not available. She is known to have peripheral artery disease and had intervention of the left tibioperoneal trunk in [place] [address] Crespo when she presented with exertional claudication. She apparently has been doing okay with no chest pain. She started having up respiratory infection symptoms and abdominal pain with the diarrhea few days prior to the hospital admission. She was found to be hypoxic in the emergency room. She was placed on oxygen by nasal cannula, 6 L/min. Her CT of the chest revealed possible bilateral pneumonia. She is on IV antibiotics. She started having right-sided chest pain last night. She grades intensity of the pain as 10/10 and is persistent. No associated shortness of breath or palpitation. The pain does not get any worse with respiratory movements. She is remaining afebrile in the hospital. Accord ing the patient, she never had this type of pain in the past in with a heart attack. Blood pressure has been remaining stable. Denies any back pain. No headache or blurring of vision. He has not had any recent cardiac work-up. Review of Systems Narrative: CONSTITUTIONAL: Low-grade fever and chills at home?. EYES: No blurring of vision or other visual disturbances lately. ENT: Has some runny nose at home CARDIOVASCULAR: As mentioned above. RESPIRATORY: No significant cough. GASTROINTESTINAL: Abdominal pain and diarrhea for the last few days GENITOURINARY: Chronic kidney disease INTEGUMENTARY: No skin rashes or history of skin cancer. NEURO: History of seizure disorder PSYCHIATRIC: No history of psychosis or major depression. HEMATOLOGIC: No bleeding disorders or significant anemia. ENDOCRINE: Type 2 diabetes MUSCULOSKELETAL: No recent joint pain or swelling. ALLERGY/IMMUNOLOGY: As mentioned above. Meds/Allergies Home Medications and Allergies Home Medications Medication Instructions Recorded Confirmed Last Taken Type Eliquis 5 mg PO BID 09/08/19 11/13/20 11/11/20 History Levemir FlexTouch U-100 Insuln 60 unit SUBCUT BID 09/08/19 11/13/20 11/11/20 History calcitriol 0.5 mcg PO DAILY 09/08/19 11/13/20 11/11/20 History furosemide 40 mg PO DAILY 09/08/19 11/13/20 11/11/20 History glimepiride 4 mg PO DAILY 09/08/19 11/13/20 11/11/20 History insulin aspart U-100 [Novolog See Rx Instructions .ROUTE .COMPLEX 09/08/19 11/13/20 11/11/20 History Flexpen U-100 Insulin] levothyroxine 25 mcg PO DAILY 09/08/19 11/13/20 11/11/20 History levothyroxine 200 mcg PO DAILY 09/08/19 11/13/20 11/11/20 History pantoprazole 40 mg PO DAILY 09/08/19 11/13/20 11/11/20 History phenytoin sodium extended 200 mg PO BID 09/08/19 11/13/20 11/11/20 History pravastatin 20 mg PO DAILY 09/08/19 11/13/20 11/11/20 History amlodipine 10 mg PO DAILY #30 tab 02/01/20 11/13/20 11/11/20 Rx chlorthalidone 25 mg PO DAILY 11/13/20 11/13/20 11/11/20 History gabapentin 800 mg PO QID 11/13/20 11/13/20 11/11/20 History losartan 50 mg PO DAILY 11/13/20 11/13/20 11/11/20 History metoprolol succinate 50 mg PO DAILY 11/13/20 11/13/20 11/11/20 History potassium chloride 10 meq PO DAILY 11/13/20 11/13/20 11/11/20 History Allergies Allergy/AdvReac Type Severity Reaction Status Date / Time gentamicin Allergy Unknown Verified 12/17/19 12:01 hydromorphone [From Dilaudid] Allergy Unknown Verified 12/17/19 12:01 Current Medications Current Medications Generic Name Dose Route Start Last Admin Trade Name Freq PRN Reason Stop Dose Admin Amlodipine Besylate 10 mg 11/14/20 09:00 11/14/20 08:36 Amlodipine 10 Mg Tablet PO 10 mg DAILY ARMINDA Administration Ferrous Gluconate 324 mg 11/13/20 18:00 11/14/20 17:30 Ferrous Gluconate 324 Mg Tablet PO 324 mg BIDWM ARMINDA Administration Folic Acid 1 mg 11/14/20 18:00 11/14/20 17:30 Folic Acid 1 Mg Tablet PO 1 mg BID ARMINDA Administration Piperacillin Sod/Tazobactam 50 mls @ 12.5 mls/hr 11/13/20 18:00 11/15/20 06:28 Sod 3.375 gm/ Sodium Chloride IV Infused Q8H ARMINDA Infusion Protocol Azithromycin 500 mg/ Sodium 250 mls @ 250 mls/hr 11/14/20 09:00 11/14/20 10:57 Chloride IV Infused DAILY ARMINDA Infusion Protocol Sodium Chloride 1,000 mls @ 100 mls/hr 11/13/20 17:00 11/15/20 01:09 Sodium Chloride 0.9% IV 100 mls/hr .Q10H ARMINDA Administration Insulin Aspart 0 unit 11/14/20 18:00 11/14/20 21:04 Insulin Aspart 100 Unit/1 Ml SUBCUT 4 unit WM&BEDTIME ARMINDA Administration Protocol Insulin Glargine 60 unit 11/13/20 21:00 11/14/20 21:09 Insulin Glargine 100 Units/1 Ml SUBCUT 60 unit BEDTIME ARMINDA Administration Levothyroxine Sodium 25 mcg 11/14/20 09:00 11/14/20 08:36 Levothyroxine 25 Mcg Tablet PO 25 mcg DAILY ARMINDA Administration Levothyroxine Sodium 200 mcg 11/14/20 09:00 11/14/20 09:57 Levothyroxine 200 Mcg Tablet PO 200 mcg DAILY ARMINDA Administration Metoprolol Succinate 50 mg 11/14/20 09:00 11/14/20 08:36 Metoprolol Succinate Er (24 Hr) 50 Mg Tablet PO 50 mg DAILY ARMINDA Administration Multivitamins Therapeutic 1 tab 11/14/20 14:00 11/14/20 14:25 Multivitamin Therapeutic Tablet PO 1 tab DAILY ARMINDA Administration Ondansetron HCl 4 mg 11/13/20 16:25 11/14/20 10:33 Ondansetron 2 Mg/Ml Sdv 2 Ml IVP 4 mg Q6H PRN Administration NAUSEA AND VOMITING Pantoprazole Sodium 40 mg 11/14/20 09:00 11/14/20 08:[address] 40 Mg Tablet PO 40 mg DAILY ARMINDA Administration Phenytoin 200 mg 11/13/20 21:00 11/14/20 17:30 Phenytoin Er 100 Mg Capsule PO 200 mg BID ARMINDA Administration Thiamine Mononitrate 100 mg 11/14/20 14:00 11/14/20 14:25 Thiamine 100 Mg Tablet PO 100 mg DAILY ARMINDA Administration Tiotropium [place] 18 mcg 11/14/20 08:00 11/15/20 07:47 Tiotropium 18 Mcg Mdi INHALATION 1 puff DAILY.RESPIRATORY ARMINDA Administration Zinc Gluconate 50 mg 11/14/20 09:00 11/14/20 08:36 Zinc Gluconate 50 Mg Tablet PO 50 mg DAILY ARMINDA Administration PFSH Acute PFSH: Medical History CAD (coronary artery disease) Diabetes Dyslipidemia Morbid obesity PVD (peripheral vascular disease) Renal insufficiency Venous stasis Surgical History History of ankle surgery History of cataract surgery History of cholecystectomy History of heart artery stent Social History Smoking and tobacco status: never smoked Marital status: / Vitals/I&O/Wt Last Vital Signs Temp 98.5 F 11/15/20 07:37 Pulse 74 11/15/20 07:57 Resp 17 11/15/20 07:46 BP 134/66 11/15/20 07:37 Pulse Ox 98 11/15/20 07:46 11/14/20 11/15/20 11/15/20 22:59 06:59 14:59 Intake Total 1460 / 2710 530 / 3240 Output Total 50 / 50 0 / 50 Balance 1410 / 2660 530 / 3190 Weight last 48 hrs Weight 368 lb 4.8 oz Weight 340 lb Weight 339 lb Physical Exam Narrative: EXAM NARRATIVE: GENERAL: The patient is alert and oriented times three. Not in any acute distress. Morbidly obese HEENT: No significant pallor, icterus or lymphadenopathy. The pupils are symmetrical. Oral cavity: There are no mucous membrane lesions. Funduscopic examination: The fundus is not visualized NECK: Trachea appears to be central. No masses noted. No JVD or thyromegaly appreciated. No carotid bruit. RESPIRATORY: Chest is symmetrical. No intercostals muscle retraction or any accessory muscle activation. There is no chest wall tenderness. Breath sounds are heard bilaterally. No rales or rhonchi heard. No evidence of any consolidation. The intensity of the breath sounds are diminished in the bases BREASTS: Deferred. HEART: PMI could not be palpated. No palpable precordial events. S1 and S2 are normal. No S3 or S4 heard. No pericardial rub or any click heard. ABDOMEN: Abdomen is obese. Diffuse tenderness in the periumbilical region . No vessel pulsations or distention. No tenderness. No organomegaly appreciated. No abdominal bruit. Bowel sounds are normally heard. : Deferred. RECTAL: Deferred. LYMPHATIC: No lymphadenopathy noted in the neck or groin. EXTREMITIES: 1+ edema both lower extremities. Features of some chronic venous stasis. The dorsalis pedis and posterior pulses are palpable on the right side but is weak. Dorsalis pedis pulse is nonpalpable on the left side. The posterior tibial pulse is palpable but weak MUSCULOSKELETAL: No acute joint deformities or swelling SKIN: There are no significant scars or skin rash noted. NEUROPSYCHIATRIC: The patient is alert and oriented x3. Appears to be somewhat drowsy. The higher functions are grossly within normal limits. No tremors or rigidity noted. Urinary Catheter Management^: Acevedo: Cath Placed During This Visit: yes Reason for Continuing Indwelling Catheter: Accurate Measurement of Urinary Output in Critically Ill Patients Urinary Catheter Date of Insertion: 11/13/20 Urinary Catheter Time of Insertion: 14:58 Data Micro: Micro: Microbiology 11/13/20 16:40 Blood Culture - Pr eliminary Blood NEGATIVE TO JESSICA E 11/13/20 16:24 Blood Culture - Pr eliminary Blood NEGATIVE TO JESSICA E 11/13/20 17:00 MRSA Culture - Fin al Nose 11/13/20 14:21 Urine Culture - Pr eliminary Urine,Voided Laboratory Last Values WBC 20.2 10^3/uL (4.0 -10.0) H 11/15/20 06:01 RBC 3.00 10^6/uL (4.1 -5.3) L 11/15/20 06:01 Hgb 9.5 g/dL (11.5-15 .3) L 11/15/20 06:01 Hct 31.7 % (37.0-47.0 ) L 11/15/20 06:01 MCV 105.7 fL (81-99) H 11/15/20 06:01 MCH 31.7 pg (28.0-34. 0) 11/15/20 06:01 MCHC 30.0 g/dL (30.0-3 6.0) 11/15/20 06:01 RDW 13.6 % (12.1-15.1 ) 11/15/20 06:01 Plt Count 190 10^3/cmm (130 -400) 11/15/20 06:01 MPV 11.8 fL (7.4-10.4 ) H 11/15/20 06:01 Neut % (Auto) 88.1 % 11/14/20 05:43 Lymph % (Auto) 5.5 % 11/14/20 05:43 [place] % (Auto) 4.9 % 11/14/20 05:43 Eos % (Auto) 0.1 % 11/14/20 05:43 Baso % (Auto) 0.4 % 11/14/20 05:43 Neut # (Auto) 25.56 10^3/uL (1. 8-7.7) H 11/14/20 05:43 Lymph # (Auto) 1.6 10^3/uL (0.8- 4.8) 11/14/20 05:43 [place] # (Auto) 1.4 10^3/uL (0.2- 0.9) H 11/14/20 05:43 Eos # (Auto) 0.0 10^3/uL (0.0- 0.8) 11/14/20 05:43 Baso # (Auto) 0.1 10^3/uL (0.0- 0.1) 11/14/20 05:43 Nucleated RBC % (a uto) 0 % 11/14/20 05:43 Total Counted 100 (0-100) 11/15/20 06:01 Atypical Lymphs % 0.0 % (0-5) 11/15/20 06:01 Absolute Neutrophi ls 19.2 10^3/cmm (1. 4-6.5) H 11/15/20 06:01 Segmented Neutroph ils 74 % 11/15/20 06:01 Abs Segm Neuts (Ma n) 14.9 10/cmm (1.6- 7.1) H 11/15/20 06:01 Band Neutrophils 21.0 % 11/15/20 06:01 Abs Band Neuts (Ma n) 4.2 10^3/cmm (0.0 -1.2) H 11/15/20 06:01 Absolute Lymphocyt es 0.8 10^3/cmm (1.2 -3.4) L 11/15/20 06:01 Lymphocytes (Manua l) 4 % 11/15/20 06:01 Monocytes (Manual) 0.0 % 11/15/20 06:01 Absolute Monocytes 0.0 10^3/cmm (0.1 -0.6) L 11/15/20 06:01 Eosinophils (Manua l) 1 % 11/15/20 06:01 Absolute Eosinophi ls 0.2 10^3/cmm (0.0 -0.7) 11/15/20 06:01 Basophils (Manual) 0.0 % 11/15/20 06:01 Absolute Basophils 0.0 10^3/cmm (0.0 -0.2) 11/15/20 06:01 Nucleated RBCs # 0.0 /100WBC 11/14/20 05:43 Platelet Estimate Normal (Normal) 11/15/20 06:01 Macrocytosis 1+ H 11/15/20 06:01 D-Dimer 2.16 ug/mIFEU (0- 0.59) H 11/14/20 23:52 Sodium 137 mmol/L (136-1 45) 11/15/20 06:01 Potassium 5.4 mmol/L (3.5-5 .1) H 11/15/20 06:01 Chloride 101 mmol/L (98-10 7) 11/15/20 06:01 Carbon Dioxide 23 mmol/L (22-29) 11/15/20 06:01 Anion Gap 18.4 (5-19) 11/15/20 06:01 BUN 72 mg/dL (8-23) H 11/15/20 06:01 Creatinine 4.0 mg/dL (0.5-0. 9) H 11/15/20 06:01 GFR Calculation Not Reportable 11/15/20 06:01 Glucose 170 mg/dL (65-115 ) H 11/15/20 06:01 POC Glucose 174 mg/dL (70-110 ) H 11/15/20 06:05 Estimat Average Gl ucose 148 11/14/20 05:43 Hemoglobin A1c 6.8 % (4.0-6.0) H 11/14/20 05:43 Calculated Osmolal ity 309 mOsm/kg (285- 295) H 11/15/20 06:01 Lactic Acid 1.6 mmol/L (0.5-2 .2) 11/14/20 12:15 Lactic Acid (Sepsi s) 3.1 mmol/L (0.5-2 .2) H 11/13/20 19:30 Lactate Cancelled 11/13/20 19:30 Calcium 7.4 mg/dL (8.5-10 .5) L 11/15/20 06:01 Phosphorus 3.9 mg/dL (2.5-4. 5) 11/14/20 05:43 Magnesium 2.0 mg/dL (1.7-2. 3) 11/14/20 05:43 Iron 27 ug/dL (37-145) L 11/13/20 10:56 TIBC 187 mcg/dl 11/13/20 10:56 % Saturation 14.4 % (20-50) L 11/13/20 10:56 Unsat Iron Binding 160 ug/dL (112-34 7) 11/13/20 10:56 Total Bilirubin 0.6 mg/dL (0.15-1 .2) 11/15/20 06:01 AST 45 U/L (0-32) H 11/15/20 06:01 ALT 18 U/L (0-33) 11/15/20 06:01 Alkaline Phosphata se 134 IU/L (35-105) H 11/15/20 06:01 Troponin T Baselin e 1184 ng/L (0-10) H* 11/14/20 23:52 Troponin T 120 Min [place] 1348 ng/L (0-10) H 11/15/20 01:49 Delta Troponin T 164 ABS# (0-10) H* 11/15/20 01:49 Troponin T Hi Sens 6Hr 1276 ng/L (0-10) H 11/15/20 06:01 Troponin T Hi Sens 6Hr Delta 92 ng/L (0-12) H * 11/15/20 06:01 NT-Pro-B Natriuret Pep 4932 pg/mL (0-450 ) H 11/13/20 10:56 Total Protein 5.5 g/dL (6.6-8.7 ) L 11/15/20 06:01 Albumin 2.6 g/dL (3.5-5.2 ) L 11/15/20 06:01 Globulin 2.9 g/dL (1.3-4.6 ) 11/15/20 06:01 Lipase 23 U/L (13-60) 11/13/20 10:56 Vitamin B12 370 pg/mL (232-12 45) 11/14/20 05:43 Folate 19.8 ng/mL (4.8-3 7.3) 11/14/20 05:43 Procalcitonin 2.02 ng/mL (0-0.5 ) H 11/13/20 10:56 TSH 0.43 uIU/mL (0.27 -4.20) 11/13/20 10:56 Urine Color Yellow (Yellow) 11/13/20 14:21 Urine Appearance Clear (CLEAR) 11/13/20 14:21 Urine pH 6.5 (5-7) 11/13/20 14:21 Ur Specific Gravit y 1.010 (1.005-1.0 30) 11/13/20 14:21 Urine Protein Trace (Negative) 11/13/20 14:21 Urine Glucose (UA) 4+ (Normal) H 11/13/20 14:21 Urine Ketones Negative (Negati ve) 11/13/20 14:21 Urine Blood Neg (Negative) 11/13/20 14:21 Urine Nitrate Negative (Negati ve) 11/13/20 14:21 Urine Bilirubin Neg (Negative) 11/13/20 14:21 Urine Urobilinogen Norm mg/dL (Negat nidia) 11/13/20 14:21 Ur Leukocyte Priscilla ase Negative (Negati ve) 11/13/20 14:21 Urine RBC None /hpf (0-2) 11/13/20 14:21 Urine WBC None /hpf (0-5) 11/13/20 14:21 Ur Squamous Epith Cells 0-4 /hpf (0-5) H 11/13/20 14:21 Amorphous Sediment Not Reportable 11/13/20 14:21 Urine Bacteria 1+ /hpf (NONE) H 11/13/20 14:21 Ur Random Sodium 82 mmol/L 11/13/20 14:21 Ur Random Potassiu m 34 mmol/L 11/13/20 14:21 Ur Random Chloride 62 mmol/L 11/13/20 14:21 Urine Creatinine 4 mg/dL (28-217) L 11/13/20 14:21 Nasal/Oral COVID-1 9 PCR Not detected 11/13/20 17:00 Influenza Type A A g Negative (Negati ve) 11/13/20 17:00 Influenza Type B A g Negative (Negati ve) 11/13/20 17:00 SARS-CoV-2 Ag (Rap id) Negative (Negati ve) 11/13/20 17:00 Imaging^: CT Chest: Radiologist's impression: 1. Mild cardiomegaly. 2. Small right pleural effusion. Tiny left pleural effusion. 3. Bilateral pulmonary opacities which may be secondary to pneumonia or atelectasis. EKG^: EKG 1: My Interpretation: The EKG showed sinus rhythm with a diffuse T inversions. Poor R wave progression. QTC of around 500. A&P Assessment and plan (1) Acute non-ST elevation myocardial infarction (NSTEMI): Patient is a clinical features are suggestive of an acute non-ST elevation myocardial infarction. He had an echocardiogram this morning. I will be reviewing the echocardiogram. She may be started on IV heparin, topical nitrates, Plavix and aspirin. Status: Acute (2) [id number] kidney injury: Need to be closely monitored. Status: Acute Qualifiers: Acute renal failure type: unspecified Chronic kidney disease stage: stage 4 (severe) Qualified Code(s): N17.9 - Acute kidney failure, unspecified; N18.4 - Chronic kidney disease, stage 4 (severe) (3) PVD (peripheral vascular disease): Currently the patient has no specific symptoms pertaining to the PVD. May continue on the current medications. Status: Acute (4) Community acquired pneumonia: Management as per the hospitalist service. Status: Acute Qualifiers: Laterality: left Lung location: lower lobe of lung Qualified Code(s): J18.9 - Pneumonia, unspecified organism (5) Colitis: Management as per the hospitalist service. Status: Acute (6) Morbid obesity: Status: Acute Additional A&P Information Her other problems are Essential benign hypertension, currently normotensive Type 2 diabetes Dyslipidemia History of seizure disorder Chronic venous stasis History of DVT Chronic anemia Based on the patient's clinical progress and the results of the above, further recommendations will be made. I will be discussing with her son who has the power of staff attorney, regarding further management. Because of the patient's acute kidney injury and sepsis picture, she will not be an ideal candidate for invasive procedures at this point. However if her chest pain does not improve, that should be a consideration. Coding Level of Care Code Acute Plant Culture Manager for Chg Fwd History Detailed Exam Detailed Medical Decision Making High Complexity Diagnoses Acute non-ST elevation myocardial infarction (NSTEMI) I21.4 [id number] kidney injury N17.9; N18.4 Acute renal failure type: unspecified Chronic kidney disease stage: stage 4 (severe) PVD (peripheral vascular disease) I73.9 Community acquired pneumonia J18.9 Laterality: left Lung location: lower lobe of lung Colitis K52.9 Morbid obesity E66.01 Time Spent (min) 60
[2020-11-15] MEDS: azithromycin 500 MG in sodium chloride 0.9% 250 ML 250 MG IV (08:22)
[2020-11-15] MEDS: folic acid 1 mg Tablet PO ×2 (08:23→17:09)
[2020-11-15] MEDS: ferrous gluconate 324 mg Tablet PO ×2 (08:23→17:09)
[2020-11-15] MEDS: aspirin 81 mg EC Tablet PO (08:23)
[2020-11-15] MEDS: thiamine 100 mg Tablet PO (08:23)
[2020-11-15] MEDS: levothyroxine 25 mcg Tablet PO (08:23)
[2020-11-15] MEDS: phenytoin ER 100 mg Capsule 200 MG PO ×2 (08:23→18:03)
[2020-11-15] MEDS: clopidogrel 75 mg Tablet PO (08:23)
[2020-11-15] MEDS: amlodipine 10 mg Tablet PO (08:23)
[2020-11-15] MEDS: levothyroxine 200 mcg Tablet PO (08:23)
[2020-11-15] MEDS: zinc gluconate 50 mg Tablet PO (08:23)
[2020-11-15] MEDS: multivitamin therapeutic Tablet 1 TAB PO (08:23)
[2020-11-15] MEDS: metoprolol succinate ER (24 HR) 50 mg Tablet PO (08:23)
[2020-11-15] MEDS: pantoprazole DR 40 mg Tablet PO (08:24)
[2020-11-15] MEDS: nitroglycerin 1 gm/inch oint Pkt 2 INCH TOPICAL ×3 (09:00→20:02)
[2020-11-15 09:56] LABS: Vancomycin Random 13.3 ug/mL (20.0-40.0)
[2020-11-15] MEDS: heparin drip 25,000 UNIT/500 ML PREMIX 36 UNIT IV (09:56)
[2020-11-15] MEDS: heparin 5,000 unit/mL INJ 1 mL IV (10:07)
--- NOTE | 2020-11-15 10:07 | PM.CONSULT ---
Providers/Reason For Consult Consulting Physican/Specialty*: Nephrology Reason for Consult*: Renal Failure Attending Physician: Rashaad Gutierrez MD Primary Care Provider: Pascual Kay MD History of Present Illness History of Present Illness Thank you for consultation, today I had the pleasure of reviewing this 75-year-old female for evaluation of acute renal failure. She initially presented on 11/13/2020 with difficulty breathing, desaturation, found to have overt leukocytosis and acute kidney injury with a creatinine of 2.4 mg/dL. Initial CT scan of the abdomen and pelvis demonstrated diffuse thickening of the cecum and right colon consistent with colitis, and possible infiltrates in the lung bases consistent with pneumonia. On admission she received combination therapy with IV hydration, azithromycin and she received vancomycin and Zosyn. On hospital day 1, she was more lucid with complaints of mild abdominal discomfort and one episode of bilious vomiting. It is noted that prior to hospitalization she did take a combination of chlorthalidone, losartan, potassium chloride, Lasix. Per her son she was not taking her medications for a few days prior to hospitalization. She is a known history of atherosclerotic heart disease, peripheral artery disease, peripheral vascular disease status post INDUSTRIAL STAFF NURSE of the left tibioperoneal trunk. She was diagnosed with acute non-STEMI last night, trop delta 92, echocardiogram is pending, IV heparin, nitrates Plavix and aspirin are started. Following hospitalization initially her blood pressures were soft, however they have improved, last measured at 134/66. In January 2020 her creatinine was 1.7 mg/dL, on admission her creatinine was 2.4 and is now increased to 4 mg/dL. BUN is elevated at 72 today urinalysis demonstrates the presence of glucose, no protein, 1+ protein, urinary sodium of 82, urine creatinine of 4, fractional excretion of sodium 35.4%. UO only 100mL per RN shift. So far blood, urine, nose cultures are negative. Legionella antigen is negative. She did receive intravenous contrast on admission, follow-up CT scan of the chest was without contrast. It is noted that imaging of the kidneys demonstrated no obstructive process. Currently she is full code. On room air, maintaining O2 levels, 2+ edema in the legs and non-pitting in her arms, lungs sound diminished throughout. Review of Systems General: Reports: ROS unobtainable due to medical condition and ROS unobtainable due to mental status Meds/Allergies Home Medications and Allergies Home Medications Medication Instructions Recorded Confirmed Last Taken Type Eliquis 5 mg PO BID 09/08/19 11/13/20 11/11/20 History Levemir FlexTouch U-100 Insuln 60 unit SUBCUT BID 09/08/19 11/13/20 11/11/20 History calcitriol 0.5 mcg PO DAILY 09/08/19 11/13/20 11/11/20 History furosemide 40 mg PO DAILY 09/08/19 11/13/20 11/11/20 History glimepiride 4 mg PO DAILY 09/08/19 11/13/20 11/11/20 History insulin aspart U-100 [Novolog See Rx Instructions .ROUTE .COMPLEX 09/08/19 11/13/20 11/11/20 History Flexpen U-100 Insulin] levothyroxine 25 mcg PO DAILY 09/08/19 11/13/20 11/11/20 History levothyroxine 200 mcg PO DAILY 09/08/19 11/13/20 11/11/20 History pantoprazole 40 mg PO DAILY 09/08/19 11/13/20 11/11/20 History phenytoin sodium extended 200 mg PO BID 09/08/19 11/13/20 11/11/20 History pravastatin 20 mg PO DAILY 09/08/19 11/13/20 11/11/20 History amlodipine 10 mg PO DAILY #30 tab 02/01/20 11/13/20 11/11/20 Rx chlorthalidone 25 mg PO DAILY 11/13/20 11/13/20 11/11/20 History gabapentin 800 mg PO QID 11/13/20 11/13/20 11/11/20 History losartan 50 mg PO DAILY 11/13/20 11/13/20 11/11/20 History metoprolol succinate 50 mg PO DAILY 11/13/20 11/13/20 11/11/20 History potassium chloride 10 meq PO DAILY 11/13/20 11/13/20 11/11/20 History Allergies Allergy/AdvReac Type Severity Reaction Status Date / Time gentamicin Allergy Unknown Verified 12/17/19 12:01 hydromorphone [From Dilaudid] Allergy Unknown Verified 12/17/19 12:01 Current Medications Current Medications Generic Name Dose Route Start Last Admin Trade Name Freq PRN Reason Stop Dose Admin Amlodipine Besylate 10 mg 11/14/20 09:00 11/15/20 08:23 Amlodipine 10 Mg Tablet PO 10 mg DAILY ARMINDA Administration Aspirin 81 mg 11/15/20 09:00 11/15/20 08:23 Aspirin 81 Mg Ec Tablet PO 81 mg DAILY ARMINDA Administration Clopidogrel Bisulfate 75 mg 11/15/20 09:00 11/15/20 08:23 Clopidogrel 75 Mg Tablet PO 75 mg DAILY ARMINDA Administration Ferrous Gluconate 324 mg 11/13/20 18:00 11/15/20 08:23 Ferrous Gluconate 324 Mg Tablet PO 324 mg BIDWM ARMINDA Administration Folic Acid 1 mg 11/14/20 18:00 11/15/20 08:23 Folic Acid 1 Mg Tablet PO 1 mg BID ARMINDA Administration Piperacillin Sod/Tazobactam 50 mls @ 12.5 mls/hr 11/13/20 18:00 11/15/20 06:28 Sod 3.375 gm/ Sodium Chloride IV Infused Q8H ARMINDA Infusion Protocol Azithromycin 500 mg/ Sodium 250 mls @ 250 mls/hr 11/14/20 09:00 11/15/20 09:30 Chloride IV Infused DAILY ARMINDA Infusion Protocol Sodium Chloride 1,000 mls @ 75 mls/hr 11/13/20 17:00 11/15/20 01:09 Sodium Chloride 0.9% IV 100 mls/hr .[id number] ARMINDA Administration Heparin Sodium/Sodium Chloride 25,000 unit in 500 mls @ 0 mls/hr 11/15/20 00:45 11/15/20 09:56 Heparin Drip IV 11.67 unit/kg/hr .Q0M ARMINDA 36 mls/hr Administration Protocol Per Protocol Insulin Aspart 0 unit 11/14/20 18:00 11/15/20 08:24 Insulin Aspart 100 Unit/1 Ml SUBCUT 2 unit WM&BEDTIME ARMINDA Administration Protocol Insulin Glargine 60 unit 11/13/20 21:00 11/14/20 21:09 Insulin Glargine 100 Units/1 Ml SUBCUT 60 unit BEDTIME ARMINDA Administration Levothyroxine Sodium 25 mcg 11/14/20 09:00 11/15/20 08:23 Levothyroxine 25 Mcg Tablet PO 25 mcg DAILY ARMINDA Administration Levothyroxine Sodium 200 mcg 11/14/20 09:00 11/15/20 08:23 Levothyroxine 200 Mcg Tablet PO 200 mcg DAILY ARMINDA Administration Metoprolol Succinate 50 mg 11/14/20 09:00 11/15/20 08:23 Metoprolol Succinate Er (24 Hr) 50 Mg Tablet PO 50 mg DAILY ARMINDA Administration Multivitamins Therapeutic 1 tab 11/14/20 14:00 11/15/20 08:23 Multivitamin Therapeutic Tablet PO 1 tab DAILY ARMINDA Administration Nitroglycerin 2 inch 11/15/20 09:00 11/15/20 09:00 Nitroglycerin 1 Gm/Inch Oint Pkt TOPICAL 2 inch Q6H ARMINDA Administration Ondansetron HCl 4 mg 11/13/20 16:25 11/14/20 10:33 Ondansetron 2 Mg/Ml Sdv 2 Ml IVP 4 mg Q6H PRN Administration NAUSEA AND VOMITING Pantoprazole Sodium 40 mg 11/14/20 09:00 11/15/20 08:[address] 40 Mg Tablet PO 40 mg DAILY ARMINDA Administration Phenytoin 200 mg 11/13/20 21:00 11/15/20 08:23 Phenytoin Er 100 Mg Capsule PO 200 mg BID ARMINDA Administration Thiamine Mononitrate 100 mg 11/14/20 14:00 11/15/20 08:23 Thiamine 100 Mg Tablet PO 100 mg DAILY ARMINDA Administration Tiotropium Isabel 18 mcg 11/14/20 08:00 11/15/20 07:47 Tiotropium 18 Mcg Mdi INHALATION 1 puff DAILY.RESPIRATORY ARMINDA Administration Zinc Gluconate 50 mg 11/14/20 09:00 11/15/20 08:23 Zinc Gluconate 50 Mg Tablet PO 50 mg DAILY ARMINDA Administration PFSH Acute PFSH: Medical History CAD (coronary artery disease) Diabetes Dyslipidemia Morbid obesity PVD (peripheral vascular disease) Renal insufficiency Venous stasis Surgical History History of ankle surgery History of cataract surgery History of cholecystectomy History of heart artery stent Social History Smoking and tobacco status: never smoked Marital status: / Vitals/I&O/Wt Last Vital Signs Temp 98.5 F 11/15/20 07:37 Pulse 74 11/15/20 07:57 Resp 17 11/15/20 07:46 BP 134/66 11/15/20 07:37 Pulse Ox 98 11/15/20 07:46 11/14/20 11/15/20 11/15/20 22:59 06:59 14:59 Intake Total 1460 / 2710 530 / 3240 490 / 490 Output Total 50 / 50 0 / 50 Balance 1410 / 2660 530 / 3190 490 / 490 Weight last 48 hrs Weight 167.058 kg Weight 154.221 kg Physical Exam Narrative: EXAM NARRATIVE: Constitutional: Moaning, confused HEENT: Wet mucosa, no jvp, non icteric Lungs: Bilaterally diminshed without discernible wheeze, rales in all lung zones CVS: S1 S2, no murmurs Abdo: Soft, BS ok Ext 4: Minimal edema, peripheral perfusion with no cyanosis Neurological: Grossly non-focal Urinary Catheter Management^: Acevedo: Cath Placed During This Visit: yes Reason for Continuing Indwelling Catheter: Accurate Measurement of Urinary Output in Critically Ill Patients Urinary Catheter Date of Insertion: 11/13/20 Urinary Catheter Time of Insertion: 14:58 Data Micro: Micro: Microbiology 11/13/20 14:21 Urine Culture - Fi nal Urine,Voided 11/13/20 16:40 Blood Culture - Pr eliminary Blood NEGATIVE TO JESSICA E 11/13/20 16:24 Blood Culture - Pr eliminary Blood NEGATIVE TO JESSICA E 11/13/20 17:00 MRSA Culture - Fin al Nose A&P Additional A&P Information 1. oligoanuric renal failure The picture is very consistent with acute tubular necrosis, likely from sepsis and starting prior to hospitalization. Although she received intravenous contrast, this would not be the cause. We will send CPK, however, no other diagnostic evaluation is needed as it is otherwise complete. At this time technically she does not need hemodialysis from a volume/chemical perspective, however, it is likely to be needed in the next 24 hours unless she makes a rapid recovery. Dr. Singleton will be discussing with the son today goals of care. If we are to be proactive, we may need to place a hemodialysis catheter today with expectation that we will need to do dialysis tomorrow. I agree with cutting down IV hydration at this time. Avoid usual nephrotoxic agents. Strict ins and outs. Dose medication for GFR less than 15. 2. Sepsis Cultures so far unrevealing, CT scan consistent with colitis and also infiltrates with possible pneumonia, currently being treated on combination of vancomycin and Zosyn and azithromycin. 3. Non-STEMI Per Dr. Jo, currently receiving combination therapy with topical nitrates, IV heparin, aspirin and Plavix. Echocardiogram pending, may need angiogram. 4. Chemistry Non critical aberration, close monitoring, repeat BMP later today Prognosis obviously very guarded at this time with multisystem disease. Thank you for consultation, as always it is a pleasure to follow these cases with you. Corbin Sánchez MD Nephrology [phone] Patient seen and examined via telemedicine, with the assistance of the bedside RN > 25 min spent in evaluation and mgmt of patient Coding Level of Care Code Acute [facility]anger for Sosa Bates
[2020-11-15 10:41] LABS: Creatine Phosphokinase 148 U/L (26-192)
--- NOTE | 2020-11-15 11:17 | PC.NURSE ---
Patient was brought to unit at 1000 by [facility] staff. She is alert and orented to self, place and year but unable to tell why she is in hospital. Patient opened eyes to verbal command. Patient was on room air, with sats in the low 70's. 6L nasal canula was applied. Heparin drip was running at 36 Ml/hr. Abdomen was firm and tender to touch with hypoactive bowel sounds.
[2020-11-15 12:52] LABS: Glucose Point of Care 192 mg/dL (70-110)
[2020-11-15] MEDS: heparin 5,000 unit/mL INJ 1 mL 5000 UNIT IVP ×4 (14:31→15:57)
--- NOTE | 2020-11-15 15:21 | PC.NURSE ---
Instructions from Dr. Crouch to D/C IV fluids. Dr. Crouch at bedside to insert temporary HD line. Time out performed at 15:03. HD line inserted without incident. Patient tolerated well.
--- NOTE | 2020-11-15 15:36 | XR_ITS ---
WS: [id number] Portable AP upright chest, 11/15/2020 Clinical Data: post HD catheter placement Comparison: Portable chest, 11/14/2020 Findings: There is a catheter inserted into the right internal jugular vein which ends in the superio r vena cava. The patchy bilateral opacities remain the same. The heart is enlarged. XR/XR chest 1V portable [id number] Impression: Insertion of right internal jugular venous catheter.
--- NOTE | 2020-11-15 15:37 | PM.ACPR ---
Procedure/Consent Time out: Time Out Performed: Yes Consent: Consent for Procedure: Consent obtained from other (indicate) (Son) Procedure Narrative: Name of the procedure: Right internal jugular hemodialysis catheter insertion under ultrasound guidance. Indication: Access for emergent dialysis. Medications: Lidocaine 1% 8 mL. IV medications: None Consent: Obtained from her son Description of the procedure: The right IJ was identified under ultrasound guidance with collapsibility and lack of pulsatility. The site was prepared using sterile technique and the patient was positioned optimally. The skin, subcutaneous tissue was anesthetized with 1% lidocaine. The introducer needle was then advanced under direct ultrasound guidance to flashback was noted. Dark nonpulsatile blood was noted. The guidewire was advanced through the needle and confirmed to be in the internal jugular vein with ultrasound. Using Seldinger technique the right internal jugular hemodialysis catheter was inserted. The catheter was sutured in place. The insertion length was 16 cm. Complications: None Blood loss: 2 mL Chest x-ray: Pending Acute Procedures Epistaxis Control: Time out performed: Yes
[2020-11-15 16:41] LABS: Partial Thromboplastin Time 55.7 SECONDS (23.9-36.7)
[2020-11-15 17:06] LABS: Troponin T (5th) Once 1202 ng/L (0-10)
[2020-11-15 17:30] LABS: Glucose Point of Care 258 mg/dL (70-110)
--- NOTE | 2020-11-15 17:38 | PM.PN ---
Subjective Subjective: Interval history: Overnight patient was complaining of chest pain after which EKG and troponins were done which showed patient to have clear inversion anterolateral leads with elevated troponin positive delta and patient was given a lower dose of aspirin and Plavix and was ordered heparin drip at around midnight though still not started at around 10 AM. Patient has remained hemodynamically stable, documented urine output over cc in last 24 hours. Has remained afebrile. On examination patient is moaning and groaning though is a lot more awake, alert and is able to have complete conversation. She states she is having pain in right upper and right chest. Denies any difficulty in breathing. On examination she is on 2 L nasal cannula saturating 2 L. Because of ongoing chest pain, NSTEMI, TIFFANY, sepsis patient was moved to ICU. Patient again seen multiple times in the ICU with son at bedside. Patient's care discussed in detail with son and patient herself. Also discussed with them regarding CODE STATUS and goals of care. They would want to be full code. Also discussed regarding the possibility of need of hemodialysis most likely short-term in view of oliguria, worsening acute on chronic kidney disease. Patient has given a consent for dialysis and is agreeable for Shiley placement. Dr. Crouch was consulted for temporary dialysis catheter placement which was placed without any difficulty after stopping heparin drip for around 2 hours. Vitals/I&O/Wt Last Vital Signs Temp 98.5 F 11/15/20 07:37 Pulse 60 11/15/20 16:10 Resp 13 11/15/20 16:10 BP 142/59 11/15/20 16:10 Pulse Ox 98 11/15/20 16:10 11/15/20 11/15/20 11/15/20 06:59 14:59 22:59 Intake Total 530 / 3240 1953.4 / 1953.4 80 / 2033.4 Output Total 0 / 50 Balance 530 / 3190 1953.4 / 1953.4 80 / 2033.4 Weight last 48 hrs Weight 167.058 kg Weight 154.221 kg Physical Exam Narrative: EXAM NARRATIVE: General: In distress because of pain, awake alert x3, left drowsy today, on 2 L HEENT: PERRLA, pupils bilaterally equal and reactive Chest: Normal vesicular breath sounds, no added sounds, equal good air entry bilaterally CVS: S1-S2 regular, no murmurs, no tachycardia, no gallops, no rubs Abdomen: Soft, morbidly obese, large pannus, tenderness diffuse all over the abdomen more so in the right lower quadrant, difficult to assess for organomegaly because of pannus, bowel sounds sluggish Neuro: Drowsy, AO x3 on arousal, difficult to assess power right now Urinary Catheter Management^: Acevedo: Cath Placed During This Visit: yes Reason for Continuing Indwelling Catheter: Accurate Measurement of Urinary Output in Critically Ill Patients Urinary Catheter Date of Insertion: 11/13/20 Urinary Catheter Time of Insertion: 14:58 Data : 11/15/20 06:01 11/15/20 06:01 Micro: Microbiology 11/13/20 14:21 Urine Culture - Final Urine,Voided 11/13/20 16:40 Blood Culture - Preliminary Blood NEGATIVE TO DATE 11/13/20 16:24 Blood Culture - Preliminary Blood NEGATIVE TO DATE 11/13/20 17:00 MRSA Culture - Final Nose A&P Assessment and plan (1) Sepsis: Status: Acute (2) Colitis: Status: Acute (3) Acute non-ST elevation myocardial infarction (NSTEMI): Status: Acute (4) Naycg-eg-[id number] kidney injury: Status: Acute Qualifiers: Acute renal failure type: unspecified Chronic kidney disease stage: stage 4 (severe) Qualified Code(s): N17.9 - Acute kidney failure, unspecified; N18.4 - Chronic kidney disease, stage 4 (severe) (5) Renal insufficiency: Status: Acute (6) Morbid obesity: Status: Acute (7) Diabetes: Status: Acute (8) CAD (coronary artery disease): Status: Acute Additional A&P Information 74-year-old female with past medical history of morbid obesity, CAD, peripheral vascular disease presented to the ER via EMS with possible complaint of abdominal pain and difficulty in breathing found to be saturating in 80s requiring 6 L oxygen saturation found to have diffuse colitis on CT abdomen pelvis and possible pneumonia. Sepsis: Criteria met with leukocytosis, borderline blood pressures on admission, tachypnea. Sepsis secondary to colitis and community-acquired pneumonia: Keep mean arterial pressures around 65. Because patient is oliguric, worsening TIFFANY and risk of developing fluid overload. Decrease IV fluids to 50 cc/h. Blood cultures, urine culture, sputum culture results awaited. Urine Legionella, flu swab for MRSA negative. Stool studies awaited. For now continue with broad-spectrum antibiotics with vancomycin and Zosyn. Will de-escalate antibiotics as per culture results. Given worsening kidney functions will check Vanco random level dose vancomycin accordingly. Covid antigen negative. PCR results awaited. Continue with isolation precautions for now. Keep saturation over 90 %. Wean off oxygen supplementation accordingly. DuoNebs every 6 hour, budesonide twice daily NSTEMI: Continue with aspirin, Plavix, statins. Continue with heparin drip. Cardiology recommendations appreciated. Plan for conservative treatment for now. Echocardiogram results appreciated. EF 40%, diffuse hypokinesia of septum, anteroseptal, inferior wall and LV apex, mildly increased left atrial size, mild MR. Continue nitro patch for now. Patient continues to have chest pain can start her on nitro drip. Hypertension: Goal blood pressure less than 140/90 mmHg. Continue with home dose of metoprolol, amlodipine. Monitor blood pressures at the mildly soft but better today. For now hold off on losartan because of acute kidney injury. Will monitor blood pressures and add medications accordingly. TIFFANY on chronic kidney disease: Baseline creatinine seems to be around 2. Creatinine worsening today with oliguria Medical reconciliation done for nephrotoxic drugs. Fena: 36% consistent with postobstructive. Nephrology consulted. Most likely patient would need temporary dialysis. Patient has given consent regarding tab. Joseline placed by Dr. Crouch. Diabetes mellitus: As patient is will not be able to take proper p.o. diet we will check blood sugars every 6 hours. Continue Lantus 60 units daily for now rather than twice daily which she takes at home. Sliding scale at low-dose protocol. Morbid obesity CAD CODE STATUS: On discussion with CODE STATUS with patient she would want to be full code for now. Patient states her DPOA will be her son who she lives with. She states her son's name is Jimi Lee. Heparin drip will have a DVT prophylaxis as well. GI soft diet. Moved to ICU. Attestations Medical Necessity Statement*: Requires further hospitalization for management of sepsis, NSTEMI, acute on chronic kidney disease, oliguria requiring possible hemodialysis Critical Care Time: Management of sepsis, NSTEMI, acute on chronic kidney disease with oliguria Critical Care Time (min): 90 Coding Level of Care Code Acute Dental Hygienist Mobile Coordinator for [facility] Diagnoses Sepsis A41.9 Colitis K52.9 Acute non-ST elevation myocardial infarction (NSTEMI) I21.4 [id number] kidney injury N17.9; N18.4 Acute renal failure type: unspecified Chronic kidney disease stage: stage 4 (severe) Renal insufficiency N28.9 Morbid obesity E66.01 Diabetes E11.9 CAD (coronary artery disease) I25.10
[2020-11-15] MEDS: insulin glargine 100 units/1 mL 60 UNIT SUBCUT (20:01)
[2020-11-15] MEDS: atorvastatin 40 mg Tablet 80 MG PO (20:02)
[2020-11-15] MEDS: vancomycin 1,500 MG/300 ML PIGGYBACK 200 MG IV (20:02)
[2020-11-15] MEDS: ipratropium-albuterol 3 mL Neb INHALATION (21:16)
[2020-11-15] MEDS: budesonide 0.5 mg/2 mL Neb INHALATION (21:17)
[2020-11-15 22:03] LABS: Partial Thromboplastin Time 66.5 SECONDS (23.9-36.7)
[2020-11-15 22:47] LABS: Glucose Point of Care 220 mg/dL (70-110)
[2020-11-15] MEDS: morphine 4 mg/mL SDV 1 mL 2 MG IVP (23:05)
[2020-11-15 23:31] LABS: Glucose Point of Care 141 mg/dL (70-110)
[2020-11-16] VITALS (168 sets, daily range): BP systolic 83–147; BP diastolic 34–88; PULSE 58–89; RESP 5–47; TEMP 36.6–37.2; O2SAT 83–100; BMI 55.6
[2020-11-16] MEDS: ipratropium-albuterol 3 mL Neb INHALATION ×3 (02:43→14:56)
[2020-11-16] MEDS: heparin drip 25,000 UNIT/500 ML PREMIX 36 UNIT IV ×2 (03:39→19:17)
[2020-11-16] MEDS: nitroglycerin 1 gm/inch oint Pkt 2 INCH TOPICAL ×4 (03:39→20:48)
[2020-11-16 06:07] LABS: Basophils # 0.1 10^3/uL (0.0-0.1); Basophils % 0.3 %; Eosinophils # 0.2 10^3/uL (0.0-0.8); Eosinophils % 0.7 %; Hemoglobin 8.6 g/dL (11.5-15.3); Lymphocytes # 1.5 10^3/uL (0.8-4.8); Lymphocytes % 7.2 %; Mean Corpuscular HGB Conc 30.7 g/dL (30.0-36.0); Mean Corpuscular Hemoglobin 32.1 pg (28.0-34.0); Mean Corpuscular Volume 104.5 fL (81-99); Mean Platelet Volume 12.2 fL (7.4-10.4); Monocytes # 1.3 10^3/uL (0.2-0.9); Monocytes % 6.4 %; Neutrophils # 16.76 10^3/uL (1.8-7.7); Neutrophils % 82.8 %; Nucleated Red Blood Cells % 0 %; Platelet Count 182 10^3/cmm (130-400); Red Blood Count 2.68 10^6/uL (4.1-5.3); Red Cell Distribution Width 13.4 % (12.1-15.1); White Blood Count 20.3 10^3/uL (4.0-10.0)
[2020-11-16 06:28] LABS: Alanine Aminotransferase 14 U/L (0-33); Albumin Level 2.4 g/dL (3.5-5.2); Alkaline Phosphatase 113 IU/L (35-105); Aspartate Amino Transferase 21 U/L (0-32); Calcium 7.6 mg/dL (8.5-10.5); Carbon Dioxide 21 mmol/L (22-29); Chloride 98 mmol/L (98-107); Globulin 3.5 g/dL (1.3-4.6); Glucose 96 mg/dL (65-115); Osmolality Calculated 301 mOsm/kg (285-295); Sodium 133 mmol/L (136-145); Total Bilirubin 0.6 mg/dL (0.15-1.2); Total Protein 5.9 g/dL (6.6-8.7)
[2020-11-16 06:39] LABS: Blood Urea Nitrogen 82 mg/dL (8-23)
[2020-11-16 06:57] LABS: Chol HDL Ratio 3.24 mg/dL (0.0-4.40); Cholesterol 107 mg/dL (0-200); HDL Cholesterol 33 mg/dL (60-100); LDL Cholesterol Calculated 45 mg/dL (50-129); Triglycerides 144 mg/dL (0-150); VLDL Cholestrol Calculation 29 mg/dL (0-30)
[2020-11-16 07:22] LABS: Glucose Point of Care 99 mg/dL (70-110)
--- NOTE | 2020-11-16 08:03 | P.PN_ITS ---
Subjective Subjective: Interval history: right IJ dialysis catheter placed yesterday. She is awake, alert, appropriate. reports weakness and feels like a pin cushion, otherwise no complaints Medications: Reviewed: Yes Vitals/I&O/Wt Last Vital Signs Temp 98.4 F 11/16/20 06:00 Pulse 65 11/16/20 06:05 Resp 15 11/16/20 06:05 BP 139/53 11/16/20 06:05 Pulse Ox 97 11/16/20 06:05 11/15/20 11/16/20 11/16/20 22:59 06:59 14:59 Intake Total 380 / 2334.4 361.4 / 2695.8 Output Total 180 / 180 Balance 380 / 2334.4 181.4 / 2515.8 Weight last 48 hrs Weight 161.082 kg Weight 167.058 kg Physical Exam Const: COMMON NORMALS: no acute distress NUTRITIONAL APPEARANCE: obese Extremity: OTHER: + edema Urinary Catheter Management^: Acevedo: Cath Placed During This Visit: yes Reason for Continuing Indwelling Catheter: Accurate Measurement of Urinary Output in Critically Ill Patients Urinary Catheter Date of Insertion: 11/13/20 Urinary Catheter Time of Insertion: 14:58 Data : 11/16/20 05:53 11/16/20 05:53 Other Labs: albumin 2.4, calcium 7.6 HepBsAg neg Micro: Microbiology 11/13/20 14:21 Urine Culture - Final Urine,Voided Echo: Radiologist's impression: Multiple wall motion normalities with diminished LV ejection fraction of 40%. Thickened mitral valve. Mild mitral annular calcification. Mild mitral valve regurgitation. Mildly increased left atrial size. Thickened aortic valve. Transverse echodense structure at the RV apex possible moderator band There is no pericardial effusion. CXR: Radiologist's impression: Right IJ dialysis catheter in SVC, + pulmonary infiltrates A&P Additional A&P Information Impression: 1. Acute kidney injury, essentially anuric 2. Sepsis: colitis, pneumonia, on azithromycin and azithromycin 3. Anemia 4. Hypervolemic hyponatremia 5. NSTEMI Plan: HD today, 2 hours, 1000 ml UF. HD again tomorrow. Check phos. Attestations Medical Necessity Statement*: critically ill in ICU Time Spent in Patient Care: Greater than 35 minutes Coding Level of Care Code Acute Patient Transport Orderly for Katerineg Jana
[2020-11-16] MEDS: zinc gluconate 50 mg Tablet PO (08:48)
[2020-11-16] MEDS: clopidogrel 75 mg Tablet PO (08:48)
[2020-11-16] MEDS: thiamine 100 mg Tablet PO (08:48)
[2020-11-16] MEDS: metoprolol succinate ER (24 HR) 50 mg Tablet PO (08:48)
[2020-11-16] MEDS: ferrous gluconate 324 mg Tablet PO ×2 (08:48→17:02)
[2020-11-16] MEDS: aspirin 81 mg EC Tablet PO (08:48)
[2020-11-16] MEDS: levothyroxine 25 mcg Tablet PO (08:49)
[2020-11-16] MEDS: levothyroxine 200 mcg Tablet PO (08:49)
[2020-11-16] MEDS: amlodipine 10 mg Tablet PO (08:49)
[2020-11-16] MEDS: azithromycin 500 MG in sodium chloride 0.9% 250 ML 250 MG IV (08:49)
[2020-11-16] MEDS: folic acid 1 mg Tablet PO ×2 (08:49→17:02)
[2020-11-16] MEDS: multivitamin therapeutic Tablet 1 TAB PO (08:49)
[2020-11-16] MEDS: pantoprazole DR 40 mg Tablet PO (08:49)
[2020-11-16] MEDS: phenytoin ER 100 mg Capsule 200 MG PO ×2 (08:51→17:01)
--- NOTE | 2020-11-16 08:59 | CTR_ITS ---
PROCEDURE INFORMATION: Exam: CT Abdomen And Pelvis Without Contrast Exam date and time: 11/16/2020 9:10 AM Age: 75 years old Clinical indication: Condition or disease; Intestinal condition; Other: Colitis TECHNIQUE: Imaging protocol: Computed tomography of the abdomen and pelvis without contrast. Radiation optimization: All CT scans at this facility use at least one of these dose optimization techniques: automated exposure control; mA and/or kV adjustment per patient size (includes targeted exams where dose is matched to clinical indication); or iterative reconstruction. COMPARISON: CT abdomen pelvis w con* [id number] 11/13/2020 12:22 PM RADIATION DOSE METRICS: Total DLP (mGy-cm): 2721.03 FINDINGS: Lungs: Bilateral lower lobe compressive atelectasis. Pleural spaces: Small volume bilateral pleural effusions layer dependently. Liver: Normal. No mass. Gallbladder and bile ducts: Normal. No calcified stones. No ductal dilation. Pancreas: Normal. No ductal dilation. Spleen: Normal. No splenomegaly. Adrenal glands: Normal. No mass. Kidneys and ureters: Severe cortical atrophy of the kidneys. No hydronephrosis. Incidental finding a simple left renal cortical cyst in the pole. Renal parenchyma is hyperdense which is possibly related to retained contrast from an earlier study on 11/13/2020. Stomach and bowel: Diverticulosis coli. Pericolonic fat stranding adjacent to the ascending colon is similar to comparison. There may be mild wall thickening in the ascending portion. Negative for bowel obstruction. Negative for bowel perforation. Appendix: No evidence of appendicitis. Intraperitoneal space: No free air. No loculated intraperitoneal fluid collection. Vasculature: Diffuse atherosclerotic wall plaques of arteries. No abdominal aortic aneurysm. Lymph nodes: Unremarkable. No enlarged lymph nodes. Urinary bladder: Bladder decompressed via Acevedo catheter. Reproductive: Unremarkable as visualized. Bones/joints: Unremarkable. No acute fracture. Soft tissues: Mild anasarca of the body wall. Lumbar paraspinal muscles are symmetric without acute finding. CT/CT abdomen pelvis wo con [id number] IMPRESSION: 1. No significant changes. Residual right colonic mild severity wall thickening and pericolonic fatty induration changes. 2. Retained contrast in the renal parenchyma. Recommend correlation for contrast induced nephropathy. COMMENTS: Consistent with the [employer]'s Incidental Findings Committee white paper (J Am Donny Radiol 2018): Any incidental renal lesion less than 1 cm or classified as too small to characterize, or any incidental cystic renal lesion characterized as simple-appearing, is likely benign. No follow-up imaging is recommended for these lesions per consensus recommendations based on imaging criteria. Radiation Dose CTDIVOL = (mGy): DLP = 2721.03 (mGy-cm)
--- NOTE | 2020-11-16 09:07 | PM.PN ---
Subjective Subjective: Interval history: Overnight patient was complaining of chest pain after which EKG and troponins were done which showed patient to have clear inversion anterolateral leads with elevated troponin positive delta and patient was given a lower dose of aspirin and Plavix and was ordered heparin drip at around midnight though still not started at around 10 AM. Patient has remained hemodynamically stable, documented urine output over cc in last 24 hours. Has remained afebrile. On examination patient is moaning and groaning though is a lot more awake, alert and is able to have complete conversation. She states she is having pain in right upper and right chest. Denies any difficulty in breathing. On examination she is on 2 L nasal cannula saturating 2 L. Because of ongoing chest pain, NSTEMI, TIFFANY, sepsis patient was moved to ICU. Patient again seen multiple times in the ICU with son at bedside. Patient's care discussed in detail with son and patient herself. Also discussed with them regarding CODE STATUS and goals of care. They would want to be full code. Also discussed regarding the possibility of need of hemodialysis most likely short-term in view of oliguria, worsening acute on chronic kidney disease. Patient has given a consent for dialysis and is agreeable for Shiley placement. Dr. Crouch was consulted for temporary dialysis catheter placement which was placed without any difficulty after stopping heparin drip for around 2 hours. Vitals/I&O/Wt Last Vital Signs Temp 98.4 F 11/16/20 06:00 Pulse 65 11/16/20 06:05 Resp 15 11/16/20 06:05 BP 139/53 11/16/20 06:05 Pulse Ox 97 11/16/20 06:05 11/15/20 11/16/20 11/16/20 22:59 06:59 14:59 Intake Total 380 / 2334.4 361.4 / 2695.8 Output Total 180 / 180 Balance 380 / 2334.4 181.4 / 2515.8 Weight last 48 hrs Weight 161.082 kg Weight 167.058 kg Physical Exam Narrative: EXAM NARRATIVE: General: In distress because of pain, awake alert x3, left drowsy today, on 2 L HEENT: PERRLA, pupils bilaterally equal and reactive Chest: Normal vesicular breath sounds, no added sounds, equal good air entry bilaterally CVS: S1-S2 regular, no murmurs, no tachycardia, no gallops, no rubs Abdomen: Soft, morbidly obese, large pannus, tenderness diffuse all over the abdomen more so in the right lower quadrant, difficult to assess for organomegaly because of pannus, bowel sounds sluggish Neuro: Drowsy, AO x3 on arousal, difficult to assess power right now Urinary Catheter Management^: Acevedo: Cath Placed During This Visit: yes Reason for Continuing Indwelling Catheter: Accurate Measurement of Urinary Output in Critically Ill Patients Urinary Catheter Date of Insertion: 11/13/20 Urinary Catheter Time of Insertion: 14:58 Data : 11/16/20 05:53 11/16/20 05:53 Micro: Microbiology 11/13/20 14:21 Urine Culture - Final Urine,Voided A&P Assessment and plan (1) Sepsis: Status: Acute (2) Colitis: Status: Acute (3) Acute non-ST elevation myocardial infarction (NSTEMI): Status: Acute (4) Izqzo-oi-jqmxpqa kidney injury: Status: Acute Qualifiers: Acute renal failure type: unspecified Chronic kidney disease stage: stage 4 (severe) Qualified Code(s): N17.9 - Acute kidney failure, unspecified; N18.4 - Chronic kidney disease, stage 4 (severe) (5) Renal insufficiency: Status: Acute (6) Morbid obesity: Status: Acute (7) Diabetes: Status: Acute (8) CAD (coronary artery disease): Status: Acute Additional A&P Information 74-year-old female with past medical history of morbid obesity, CAD, peripheral vascular disease presented to the ER via EMS with possible complaint of abdominal pain and difficulty in breathing found to be saturating in 80s requiring 6 L oxygen saturation found to have diffuse colitis on CT abdomen pelvis and possible pneumonia. Sepsis: Criteria met with leukocytosis, borderline blood pressures on admission, tachypnea. Sepsis secondary to colitis and community-acquired pneumonia: Resolving. Keep mean arterial pressures around 65. Because patient is oliguric, worsening TIFFANY and risk of developing fluid overload. Decrease IV fluids to 50 cc/h. Blood cultures, urine culture, sputum culture negative till date. Urine Legionella, flu swab for MRSA negative. Stool studies awaited. For now continue with broad-spectrum antibiotics with vancomycin. Switch zosyn to imipenem. Day 4 today. Remains afebrile. If remains hemodynamic stable will stop in next 48 hrs and monitor. As patient continues to have persistent leukocytosis. CT abdomen pelvis to monitor for colitis. Check peripheral smear Aggressive bowel regimen. Covid antigen negative. PCR results awaited. Continue with isolation precautions for now. Keep saturation over 90 %. Wean off oxygen supplementation accordingly. DuoNebs every 6 hour, budesonide twice daily NSTEMI: Continue with aspirin, Plavix, statins. Continue with heparin drip. Cardiology recommendations appreciated. Plan for conservative treatment for now. Echocardiogram results appreciated. EF 40%, diffuse hypokinesia of septum, anteroseptal, inferior wall and LV apex, mildly increased left atrial size, mild MR. Continue nitro patch for now. Patient continues to have chest pain can start her on nitro drip. Hypertension: Goal blood pressure less than 140/90 mmHg. Continue with home dose of metoprolol, amlodipine. Monitor blood pressures at the mildly soft but better today. For now hold off on losartan because of acute kidney injury. Will monitor blood pressures and add medications accordingly. TIFFANY on chronic kidney disease: Baseline creatinine seems to be around 2. Creatinine worsening today with oliguria Plan for dialysis today. Nephrology recs appreciated. Diabetes mellitus: As patient is will not be able to take proper p.o. diet we will check blood sugars every 6 hours. Continue Lantus 60 units daily for now rather than twice daily which she takes at home. Sliding scale at low-dose protocol. Morbid obesity CAD CODE STATUS: On discussion with CODE STATUS with patient she would want to be full code for now. Patient states her DPOA will be her son who she lives with. She states her son's name is Jimi Lee. Heparin drip will have a DVT prophylaxis as well. GI soft diet. Attestations Medical Necessity Statement*: Requires further hospitalization for management of sepsis secondary to colitis, TIFFANY likely requiring dialysis, NSTEMI Critical Care Time: Heparin drip, dialysis Critical Care Time (min): 80 Coding Level of Care Code Acute Machine Coremaker for [facility] Diagnoses Sepsis A41.9 Colitis K52.9 Acute non-ST elevation myocardial infarction (NSTEMI) I21.4 Yuccv-xy-vfohhrf kidney injury N17.9; N18.4 Acute renal failure type: unspecified Chronic kidney disease stage: stage 4 (severe) Renal insufficiency N28.9 Morbid obesity E66.01 Diabetes E11.9 CAD (coronary artery disease) I25.10
[2020-11-16] MEDS: budesonide 0.5 mg/2 mL Neb INHALATION ×2 (09:38→20:57)
[2020-11-16] MEDS: polyethylene glycol 3350 Pkt 17 gm PO (09:56)
[2020-11-16] MEDS: FUROsemide 10 mg/mL SDV 10mL 80 MG IVP (09:56)
[2020-11-16] MEDS: bisacodyl 5 mg Tablet 10 MG PO (09:57)
--- NOTE | 2020-11-16 10:30 | XR_ITS ---
WS: [id number] KUB, AP view, 11/16/2020 Clinical Data: colitis/ constipation Comparison: None. Findings: No abnormal intraabdominal masses or calcifications are seen. There is dilatation of the small bowel and there is air in the colon. There are clips in the right upper quadrant from a cholecystectomy.The re is osteoarthritic change of both hips. XR/XR abdomen 1V* [id number] Impression: 1. Dilated small bowel loops with air in the colon. 2. Possible early small bowel obstruction or severe generalized ileus.
[2020-11-16 11:05] LABS: Glucose Point of Care 92 mg/dL (70-110)
[2020-11-16] MEDS: morphine 4 mg/mL SDV 1 mL 2 MG IVP (11:10)
[2020-11-16 12:21] LABS: Hepatitis B Surface AB 5.8 (11.5-1000); Hepatitis B Surface Antigen Non-Reactive (Nonreactive); Hepatitis C Virus Antibody Non-Reactive (Nonreactive)
--- NOTE | 2020-11-16 13:00 | PC.NURSE ---
Patient taken to xray. All vitals WNL. Tolerated well
[2020-11-16 14:26] LABS: Partial Thromboplastin Time 70.3 SECONDS (23.9-36.7)
--- NOTE | 2020-11-16 15:07 | PC.SOCIAL ---
IMM Update IMM updated with patient, PG 2. copy provided. Patient did not have any questions or concerns. Verbalized an understanding. Copy initialled, dated, and timed and placed in chart.
--- NOTE | 2020-11-16 16:19 | PC.NURSE ---
Patient taken to CT at 1600. All vitals were WNL. Tolerated well
--- NOTE | 2020-11-16 16:27 | PC.NURSE ---
Heparin drip not changed this shift. Still running at 36 ml/hr. Next check at 1930
[2020-11-16 17:34] LABS: Glucose Point of Care 87 mg/dL (70-110)
--- NOTE | 2020-11-16 17:48 | PM.PN ---
Subjective Subjective: Interval history: Patient is currently feeling okay. She has no recurrence of chest pain. She had the central line placement yesterday for hemodialysis. She is awaiting hemodialysis today. Denies any fever or chills. Only complaining of pain in the buttock region and also in the abdomen. Medications: Reviewed: Yes Medication Review Details: Current Medications Acetaminophen (Acetaminophen 325 Mg Tablet) 650 mg PO Q6H PRN PRN Reason: MILD PAIN Albuterol Sulfate (Albuterol 2.5 Mg/0.5 Ml Neb) 2.5 mg INHALATION Q4H.RESPIRATORY PRN PRN Reason: SHORTNESS OF BREATH Albuterol/Ipratropium (Ipratropium-Albuterol 3 Ml Neb) 3 ml INHALATION Q6H.RESPIRATORY [facility] Last Admin: 11/16/20 14:56 Dose: 3 ml Documented by: Amlodipine Besylate (Amlodipine 10 Mg Tablet) 10 mg PO DAILY [facility] Last Admin: 11/16/20 08:49 Dose: 10 mg Documented by: Aspirin (Aspirin 81 Mg Ec Tablet) 81 mg PO DAILY [facility] Last Admin: 11/16/20 08:48 Dose: 81 mg Documented by: Atorvastatin Calcium (Atorvastatin 40 Mg Tablet) 80 mg PO BEDTIME [facility] Last Admin: 11/15/20 20:02 Dose: 80 mg Documented by: Bisacodyl (Bisacodyl 5 Mg Tablet) 10 mg PO DAILY [facility] Last Admin: 11/16/20 09:57 Dose: 10 mg Documented by: Budesonide (Budesonide 0.5 Mg/2 Ml Neb) 0.5 mg INHALATION BID [facility] Last Admin: 11/16/20 09:38 Dose: 0.5 mg Documented by: Clopidogrel Bisulfate (Clopidogrel 75 Mg Tablet) 75 mg PO DAILY [facility] Last Admin: 11/16/20 08:48 Dose: 75 mg Documented by: Dextrose (Dextrose 50% Syringe 50 Ml) 25 ml IVP ONCE PRN; Protocol PRN Reason: hypoglycemia protocol Dextrose (Dextrose 50% Syringe 50 Ml) 50 ml IVP PRN PRN; Protocol PRN Reason: hypoglycemia protocol Ferrous Gluconate (Ferrous Gluconate 324 Mg Tablet) 324 mg PO BIDWM [facility] Last Admin: 11/16/20 17:02 Dose: 324 mg Documented by: Folic Acid (Folic Acid 1 Mg Tablet) 1 mg PO BID [facility] Last Admin: 11/16/20 17:02 Dose: 1 mg Documented by: Glucagon (Glucagon 1 Mg/Ml Inj 1 Ml) 1 mg IM ONCE PRN; Protocol PRN Reason: Adult Acute Hypoglycemia Prot. Heparin Sodium (Beef Lung) (Heparin 5,000 Unit/Ml Inj 1 Ml) 0 unit IV PRN PRN; Protocol PRN Reason: Heparin weight-base protocol Last Admin: 11/15/20 10:07 Dose: 7,000 unit Documented by: Azithromycin 500 mg/ Sodium (Chloride) 250 mls @ 250 mls/hr IV DAILY [facility]; Protocol Last Infusion: 11/16/20 10:34 Dose: Infused Documented by: Dextrose (D5w) 500 mls @ 100 mls/hr IV ONCE PRN; Protocol PRN Reason: Adult Acute Hypoglycemia Prot Heparin Sodium/Sodium Chloride (Heparin Drip) 25,000 unit in 500 mls @ 0 mls/hr IV .Q0M ARMINDA; Protocol Last Admin: 11/16/20 03:39 Dose: 11.67 unit/kg/hr, 36 mls/hr Documented by: Sodium Chloride (Sodium Chloride 0.9%) 1,000 mls @ 0 mls/hr IV .Q0M PRN PRN Reason: hypotension or symptomatic Imipenem/Cilastatin Sodium 250 (mg/ Sodium Chloride) 100 mls @ 200 mls/hr IV Q12H [facility]MINDA; Protocol Last Infusion: 11/16/20 10:34 Dose: Infused Documented by: Sodium Chloride (Sodium Chloride 0.9%) 1,000 mls @ 0 mls/hr IV .Q0M PRN PRN Reason: hypotension or symptomatic Insulin Aspart (Insulin Aspart 100 Unit/1 Ml) 0 unit SUBCUT WM&BEDTIME [facility]; Protocol Last Admin: 11/16/20 17:02 Dose: Not Given Documented by: Insulin Glargine (Insulin Glargine 100 Units/1 Ml) 60 unit SUBCUT BEDTIME [facility] Last Admin: 11/15/20 20:01 Dose: 60 unit Documented by: Levothyroxine Sodium (Levothyroxine 25 Mcg Tablet) 25 mcg PO DAILY [facility] Last Admin: 11/16/20 08:49 Dose: 25 mcg Documented by: Levothyroxine Sodium (Levothyroxine 200 Mcg Tablet) 200 mcg PO DAILY [facility] Last Admin: 11/16/20 08:49 Dose: 200 mcg Documented by: Metoprolol Succinate (Metoprolol Succinate Er (24 Hr) 50 Mg Tablet) 50 mg PO DAILY [facility] Last Admin: 11/16/20 08:48 Dose: 50 mg Documented by: Morphine Sulfate (Morphine 4 Mg/Ml Sdv 1 Ml) 2 mg IVP Q8H PRN PRN Reason: SEVERE PAIN Last Admin: 11/16/20 11:10 Dose: 2 mg Documented by: Multivitamins Therapeutic (Multivitamin Therapeutic Tablet) 1 tab PO DAILY [facility] Last Admin: 11/16/20 08:49 Dose: 1 tab Documented by: Nitroglycerin (Nitroglycerin 1 Gm/Inch Oint Pkt) 2 inch TOPICAL Q6H [facility] Last Admin: 11/16/20 16:55 Dose: 2 inch Documented by: Ondansetron HCl (Ondansetron 2 Mg/Ml Sdv 2 Ml) 4 mg IVP Q6H PRN PRN Reason: NAUSEA AND VOMITING Last Admin: 11/14/20 10:33 Dose: 4 mg Documented by: Pantoprazole Sodium (Pantoprazole Dr 40 Mg Tablet) 40 mg PO DAILY [facility] Last Admin: 11/16/20 08:49 Dose: 40 mg Documented by: Phenytoin (Phenytoin Er 100 Mg Capsule) 200 mg PO BID [facility] Last Admin: 11/16/20 17:01 Dose: 200 mg Documented by: Polyethylene Glycol (Polyethylene Glycol 3350 Pkt 17 Gm) 17 gm PO DAILY [facility] Last Admin: 11/16/20 09:56 Dose: 17 gm Documented by: Thiamine Mononitrate (Thiamine 100 Mg Tablet) 100 mg PO DAILY [facility] Last Admin: 11/16/20 08:48 Dose: 100 mg Documented by: Zinc Gluconate (Zinc Gluconate 50 Mg Tablet) 50 mg PO DAILY [facility] Last Admin: 11/16/20 08:48 Dose: 50 mg Documented by: Vitals/I&O/Wt Last Vital Signs Temp 98.3 F 11/16/20 12:00 Pulse 76 11/16/20 15:04 Resp 17 11/16/20 14:56 BP 135/77 11/16/20 16:00 Pulse Ox 99 11/16/20 15:00 11/16/20 11/16/20 11/16/20 06:59 14:59 22:59 Intake Total 361.4 / 2695.8 590 / 590 Output Total 180 / 180 Balance 181.4 / 2515.8 590 / 590 Weight last 48 hrs Weight 355 lb 2 oz Weight 368 lb 4.8 oz Physical Exam Narrative: EXAM NARRATIVE: GENERAL: The patient is alert and oriented times three. Not in any acute distress. Morbidly obese HEENT: No significant pallor, icterus or lymphadenopathy. Oral cavity: There are no mucous membrane lesions. NECK: Trachea appears to be central. No masses noted. No JVD or thyromegaly appreciated. No carotid bruit. Right IJ in place RESPIRATORY: Chest is symmetrical. No intercostals muscle retraction or any accessory muscle activation. There is no chest wall tenderness. Breath sounds are heard bilaterally. No rales or rhonchi heard. No evidence of any consolidation. The intensity of the breath sounds are diminished in the bases BREASTS: Deferred. HEART: PMI could not be palpated. No palpable precordial events. S1 and S2 are normal. No S3 or S4 heard. No pericardial rub or any click heard. ABDOMEN: Abdomen is obese. Diffuse tenderness in the periumbilical region . No vessel pulsations or distention. No organomegaly appreciated. No abdominal bruit. Bowel sounds are normally heard. : Deferred. RECTAL: Deferred. LYMPHATIC: No lymphadenopathy noted in the neck or groin. EXTREMITIES: 1+ edema both lower extremities. Features of some chronic venous stasis. MUSCULOSKELETAL: No acute joint deformities or swelling SKIN: There are no significant scars or skin rash noted. NEUROPSYCHIATRIC: The patient is alert and oriented x3. No focal motor deficits Urinary Catheter Management^: Acevedo: Cath Placed During This Visit: yes Reason for Continuing Indwelling Catheter: Accurate Measurement of Urinary Output in Critically Ill Patients Urinary Catheter Date of Insertion: 11/13/20 Urinary Catheter Time of Insertion: 14:58 Data : 11/17/20 02:57 11/17/20 02:57 A&P Assessment and plan (1) Acute non-ST elevation myocardial infarction (NSTEMI): Patient has multiple wall motion normalities in the echocardiogram. It is possible that she may have three-vessel coronary disease. Currently she seems to be stable. May consider a cardiac colorization, once her renal status is stable. Status: Acute (2) Ybohu-rz-wqcgyct kidney injury: Pt is scheduled for hemodialysis today. Status: Acute Qualifiers: Acute renal failure type: unspecified Chronic kidney disease stage: stage 4 (severe) Qualified Code(s): N17.9 - Acute kidney failure, unspecified; N18.4 - Chronic kidney disease, stage 4 (severe) (3) PVD (peripheral vascular disease): Currently the patient has no specific symptoms pertaining to the PVD. May continue on the current medications. Status: Acute (4) Community acquired pneumonia: Management as per the hospitalist service. Status: Acute Qualifiers: Laterality: left Lung location: lower lobe of lung Qualified Code(s): J18.9 - Pneumonia, unspecified organism (5) Colitis: Management as per the hospitalist service. Status: Acute (6) Morbid obesity: Status: Acute Additional A&P Information Her other problems are Essential benign hypertension, currently normotensive Type 2 diabetes Dyslipidemia History of seizure disorder Chronic venous stasis History of DVT Chronic anemia Patient may be continued on the current medication for the time being, including the IV heparin. Based on the clinical progress, further management decisions will be made. Attestations Medical Necessity Statement*: Patient requires continued hospital stay for close monitoring and further management Coding Level of Care Code Acute Strategic Planning Specialist for [facility] Fwd History Detailed Medical Decision Making Moderate Complexity Diagnoses Acute non-ST elevation myocardial infarction (NSTEMI) I21.4 Hnelc-gd-nalchtn kidney injury N17.9; N18.4 Acute renal failure type: unspecified Chronic kidney disease stage: stage 4 (severe) PVD (peripheral vascular disease) I73.9 Community acquired pneumonia J18.9 Laterality: left Lung location: lower lobe of lung Colitis K52.9 Morbid obesity E66.01 Time Spent (min) 25
[2020-11-16 20:18] LABS: Glucose Point of Care 61 mg/dL (70-110)
--- NOTE | 2020-11-16 20:29 | PC.NURSE ---
19:30 PTT lab draw, laboratory veterinarian unable to obtain lab draw with 2 unsuccessful attmpts, IV's will not draw. field sampling technician stated she would have another tech come and attempt
[2020-11-16] MEDS: atorvastatin 40 mg Tablet 80 MG PO (20:48)
[2020-11-16 21:14] LABS: Partial Thromboplastin Time 89.4 SECONDS (23.9-36.7)
[2020-11-16] MEDS: sennosides 8.6 mg Tablet 17.2 MG PO (22:54)
[2020-11-17] VITALS (79 sets, daily range): BP systolic 81–143; BP diastolic 31–86; PULSE 67–117; RESP 11–30; TEMP 36.4–37.1; O2SAT 89–100
[2020-11-17] MEDS: nitroglycerin 1 gm/inch oint Pkt 2 INCH TOPICAL ×3 (02:26→14:34)
[2020-11-17] MEDS: ipratropium-albuterol 3 mL Neb INHALATION ×4 (02:53→20:11)
[2020-11-17 03:10] LABS: Basophils # 0.1 10^3/uL (0.0-0.1); Basophils % 0.4 %; Eosinophils # 0.3 10^3/uL (0.0-0.8); Eosinophils % 1.8 %; Hematocrit 26.5 % (37.0-47.0); Hemoglobin 8.5 g/dL (11.5-15.3); Lymphocytes # 1.3 10^3/uL (0.8-4.8); Lymphocytes % 7.8 %; Mean Corpuscular HGB Conc 32.1 g/dL (30.0-36.0); Mean Corpuscular Volume 99.6 fL (81-99); Mean Platelet Volume 11.5 fL (7.4-10.4); Monocytes # 1.2 10^3/uL (0.2-0.9); Neutrophils # 13.39 10^3/uL (1.8-7.7); Neutrophils % 81.1 %; Nucleated Red Blood Cells % 0.1 %; Platelet Count 200 10^3/cmm (130-400); Red Blood Count 2.66 10^6/uL (4.1-5.3); Red Cell Distribution Width 13.4 % (12.1-15.1); White Blood Count 16.5 10^3/uL (4.0-10.0)
[2020-11-17 03:21] LABS: Partial Thromboplastin Time 63.5 SECONDS (23.9-36.7)
[2020-11-17 03:27] LABS: Alanine Aminotransferase 10 U/L (0-33); Albumin Level 2.2 g/dL (3.5-5.2); Alkaline Phosphatase 105 IU/L (35-105); Anion Gap 16.1 (5-19); Aspartate Amino Transferase 14 U/L (0-32); Blood Urea Nitrogen 55 mg/dL (8-23); Calcium 7.4 mg/dL (8.5-10.5); Carbon Dioxide 24 mmol/L (22-29); Chloride 99 mmol/L (98-107); Globulin 3.4 g/dL (1.3-4.6); Glucose 73 mg/dL (65-115); Osmolality Calculated 294 mOsm/kg (285-295); Potassium 4.1 mmol/L (3.5-5.1); Sodium 135 mmol/L (136-145); Total Bilirubin 0.4 mg/dL (0.15-1.2); Total Protein 5.6 g/dL (6.6-8.7)
[2020-11-17 03:28] LABS: Phosphorus 4.5 mg/dL (2.5-4.5)
[2020-11-17 04:33] LABS: Iron 34 ug/dL (37-145); Percent Saturation 30.9 % (20-50); Total Iron Binding Capacity 110 mcg/dl; Unsaturated Iron Binding 76 ug/dL (112-347)
[2020-11-17] MEDS: morphine 4 mg/mL SDV 1 mL 2 MG IVP (04:38)
[2020-11-17 05:08] LABS: Ferritin 1262 ng/mL (15-150)
[2020-11-17 06:12] LABS: Glucose Point of Care 68 mg/dL (70-110)
--- NOTE | 2020-11-17 06:37 | P.PN_ITS ---
Subjective Subjective: Interval history: feels better, HD being initiated Medications: Reviewed: Yes Vitals/I&O/Wt Last Vital Signs Temp 97.9 F 11/17/20 04:00 Pulse 69 11/17/20 05:46 Resp 11 L 11/17/20 05:30 BP 107/50 11/17/20 05:30 Pulse Ox 98 11/17/20 05:30 11/16/20 11/16/20 11/17/20 14:59 22:59 06:59 Intake Total 590 / 590 1075.8 / 1665.8 706 / 2371.8 Output Total 300 / 300 600 / 900 Balance 590 / 590 775.8 / 1365.8 106 / 1471.8 Weight last 48 hrs Weight 160.027 kg Weight 161.082 kg Physical Exam Const: COMMON NORMALS: no acute distress GENERAL APPEARANCE: cooperative Neck/C-Spine: OTHER: right IJ dialysis catheter Extremity: NARRATIVE EXTREMITY EXAM: + edema Urinary Catheter Management^: Acevedo: Cath Placed During This Visit: yes Reason for Continuing Indwelling Catheter: Accurate Measurement of Urinary Ou tput in Critically Ill Patients Urinary Catheter Date of Insertion: 11/13/20 Urinary Catheter Time of Insertion: 14:58 Data : 11/17/20 02:57 11/17/20 02:57 Other Labs: calcium 7.4, albumin 2.2, tanja Ca 8.6 phos 4.5 A&P Additional A&P Information Impression: 1. Acute kidney injury, first dialysis session yesterday 2. Sepsis: colitis, pneumonia 3. Anemia: Hb stable 4. Hypervolemic hyponatremia, improved 5. NSTEMI Plan: HD today, 3 hours, 1500 ml UF. Unlikely to need dialysis over weekend. Next HD if needed planned for FridayNovember 20. Attestations Medical Necessity Statement*: see above Time Spent in Patient Care: 16 - 35 minutes Coding Level of Care Code Acute Supervisor [employer] for [facility]
[2020-11-17 06:40] LABS: Glucose Point of Care 76 mg/dL (70-110)
[2020-11-17 07:16] LABS: LAB Peripheral Smear Sent for Review
[2020-11-17 08:03] LABS: Glucose Point of Care 110 mg/dL (70-110)
[2020-11-17] MEDS: aspirin 81 mg EC Tablet PO (08:12)
[2020-11-17] MEDS: levothyroxine 25 mcg Tablet PO (08:12)
[2020-11-17] MEDS: levothyroxine 200 mcg Tablet PO (08:12)
[2020-11-17] MEDS: amlodipine 10 mg Tablet PO (08:12)
[2020-11-17] MEDS: zinc gluconate 50 mg Tablet PO (08:12)
[2020-11-17] MEDS: ferrous gluconate 324 mg Tablet PO ×2 (08:12→18:22)
[2020-11-17] MEDS: azithromycin 500 MG in sodium chloride 0.9% 250 ML 250 MG IV (08:13)
[2020-11-17] MEDS: thiamine 100 mg Tablet PO (08:13)
[2020-11-17] MEDS: folic acid 1 mg Tablet PO ×2 (08:13→18:22)
[2020-11-17] MEDS: clopidogrel 75 mg Tablet PO (08:13)
[2020-11-17] MEDS: pantoprazole DR 40 mg Tablet PO (08:13)
[2020-11-17] MEDS: bisacodyl 5 mg Tablet 10 MG PO (08:13)
[2020-11-17] MEDS: polyethylene glycol 3350 Pkt 17 gm PO (08:14)
[2020-11-17] MEDS: phenytoin ER 100 mg Capsule 200 MG PO ×2 (08:19→18:22)
[2020-11-17] MEDS: multivitamin therapeutic Tablet 1 TAB PO (08:19)
--- NOTE | 2020-11-17 08:24 | P.PN_ITS ---
Subjective Subjective: Interval history: NO acute events overnight. Has remained stable hemodynamically and afebrile. Received first cycle of HD yesterday. Tolerated well. Currently sitting in bed. During the day had one more cycle of HD. UF-1Lt. Mildly hypotensive afterwards. Had 2 episodes of chest pain during the day.urine output still low. 1 large BM today and continues to pass flatus. Vitals/I&O/Wt Last Vital Signs Temp 97.9 F 11/17/20 04:00 Pulse 69 11/17/20 05:46 Resp 11 L 11/17/20 05:30 BP 107/50 11/17/20 05:30 Pulse Ox 98 11/17/20 05:30 11/16/20 11/17/20 11/17/20 22:59 06:59 14:59 Intake Total 1075.8 / 1665.8 706 / 2371.8 Output Total 300 / 300 600 / 900 Balance 775.8 / 1365.8 106 / 1471.8 Weight last 48 hrs Weight 160.027 kg Weight 161.082 kg Physical Exam Narrative: EXAM NARRATIVE: General: No acute distress, awake alert x3, on 2 L HEENT: PERRLA, pupils bilaterally equal and reactive Chest: Normal vesicular breath sounds, no added sounds, equal good air entry bilaterally CVS: S1-S2 regular, no murmurs, no tachycardia, no gallops, no rubs Abdomen: Soft, morbidly obese, large pannus, tenderness diffuse all over the abdomen more so in the right lower quadrant, difficult to assess for organomeg jenna because of pannus, bowel sounds sluggish Neuro: Drowsy, AO x3 on arousal, difficult to assess power right now Urinary Catheter Management^: Acevedo: Cath Placed During This Visit: yes Reason for Continuing Indwelling Catheter: Accurate Measurement of Urinary Output in Critically Ill Patients Urinary Catheter Date of Insertion: 11/13/20 Urinary Catheter Time of Insertion: 14:58 Data : 11/17/20 02:57 11/17/20 02:57 A&P Assessment and plan (1) Sepsis: Status: Acute (2) Colitis: Status: Acute (3) Acute non-ST elevation myocardial infarction (NSTEMI): Status: Acute (4) Svbxy-yx-kxcykpk kidney injury: Status: Acute Qualifiers: Acute renal failure type: unspecified Chronic kidney disease stage: stage 4 (severe) Qualified Code(s): N17.9 - Acute kidney failure, unspecified; N18.4 - Chronic kidney disease, stage 4 (severe) (5) Renal insufficiency: Status: Acute (6) Morbid obesity: Status: Acute (7) Diabetes: Status: Acute (8) CAD (coronary artery disease): Status: Acute Additional A&P Information 74-year-old female with past medical history of morbid obesity, CAD, peripheral vascular disease presented to the ER via EMS with possible complaint of abdominal pain and difficulty in breathing found to be saturating in 80s requiring 6 L oxygen saturation found to have diffuse colitis on CT abdomen pelvis and possible pneumonia. Sepsis: Criteria met with leukocytosis, borderline blood pressures on admission, tachypnea. Sepsis secondary to colitis and community-acquired pneumonia: Resolving. Keep mean arterial pressures around 65. Blood cultures, urine culture, sputum culture negative till date. Urine Legionella, flu swab for MRSA negative. Stool studies sent today. Cdiff negative. 1 out of 4 bottles + for GPC, most likley contaminant. Repeat Bcx sent. For now continue with broad-spectrum antibiotics with vancomycin and imipenem. Day 5 today. Remains afebrile. If remains hemodynamic stable will stop in next 48 hrs and monitor. Repeat CT appreciated. Continue with aggressive bowel regimen. Covid antigen negative. PCR results awaited. Continue with isolation precautions for now. Keep saturation over 90 %. Wean off oxygen supplementation accordingly. DuoNebs every 6 hour, budesonide twice daily NSTEMI: Chest pain today. Continue with aspirin, Plavix, statins. Continue with heparin drip. Cardiology recommendations appreciated. Plan for cath in AM. NPO after mid night. Echocardiogram results appreciated. EF 40%, diffuse hypokinesia of septum, anteroseptal, inferior wall and LV apex, mildly increased left atrial size, mild MR. Continue nitro patch for now but at lower dose. Patient continues to have chest pain can start her on nitro drip. Hypertension: Goal blood pressure less than 140/90 mmHg. BP softer today. Divide and change to metoprolol tartrate 25 mg BID, decrease to Amlo 5 mg QD. For now hold off on losartan because of acute kidney injury. Will monitor blood pressures and add medications accordingly. TIFFANY on chronic kidney disease: Baseline creatinine seems to be around 2. Creatinine worsening today with oliguria Plan for dialysis today. Nephrology recs appreciated. Diabetes mellitus: Hypo in AM. Decrease Lantus to 30 U for now. Sliding scale at low-dose protocol. Morbid obesity CAD CODE STATUS: On discussion with CODE STATUS with patient she would want to be full code for now. Patient states her DPOA will be her son who she lives with. She states her son's name is Jimi Lee. Heparin drip will have a DVT prophylaxis as well. GI soft diet. Attestations Medical Necessity Statement*: For Sepsis, NSTEMI, TIFFANY on CKD needing HD Critical Care Time: Sepsis, NSTEMI Critical Care Time (min): 80 Coding Level of Care Code Acute [facility] Fwd Diagnoses Sepsis A41.9 Colitis K52.9 Acute non-ST elevation myocardial infarction (NSTEMI) I21.4 Impva-fc-dizujqt kidney injury N17.9; N18.4 Acute renal failure type: unspecified Chronic kidney disease stage: stage 4 (severe) Renal insufficiency N28.9 Morbid obesity E66.01 Diabetes E11.9 CAD (coronary artery disease) I25.10
--- NOTE | 2020-11-17 08:43 | PM.PN ---
Subjective Subjective: Interval history: The patient is feeling okay. She continues to remain stable with respect to her cardiac status. She has no chest pain. Denies any unusual shortness of breath. She had the first dialysis yesterday without any complications. Currently she is undergoing the second hemodialysis. So far she seems to be doing okay. Her vital signs remaining stable. She has not had any significant arrhythmias on the monitor. No fever or chills. No cough. He still has the abdominal pain, may be less severe. Also has the pain in the buttock region from the decubitus ulcers Medications: Reviewed: Yes Medication Review Details: Current Medications Acetaminophen (Acetaminophen 325 Mg Tablet) 650 mg PO Q6H PRN PRN Reason: MILD PAIN Albuterol Sulfate (Albuterol 2.5 Mg/0.5 Ml Neb) 2.5 mg INHALATION Q4H.RESPIRATORY PRN PRN Reason: SHORTNESS OF BREATH Albuterol/Ipratropium (Ipratropium-Albuterol 3 Ml Neb) 3 ml INHALATION Q6H.RESPIRATORY [facility] Last Admin: 11/17/20 02:53 Dose: 3 ml Documented by: Amlodipine Besylate (Amlodipine 10 Mg Tablet) 10 mg PO DAILY [facility] Last Admin: 11/17/20 08:12 Dose: 10 mg Documented by: Aspirin (Aspirin 81 Mg Ec Tablet) 81 mg PO DAILY [facility] Last Admin: 11/17/20 08:12 Dose: 81 mg Documented by: Atorvastatin Calcium (Atorvastatin 40 Mg Tablet) 80 mg PO BEDTIME [facility] Last Admin: 11/16/20 20:48 Dose: 80 mg Documented by: Bisacodyl (Bisacodyl 5 Mg Tablet) 10 mg PO DAILY [facility] Last Admin: 11/17/20 08:13 Dose: 10 mg Documented by: Budesonide (Budesonide 0.5 Mg/2 Ml Neb) 0.5 mg INHALATION BID [facility] Last Admin: 11/16/20 20:57 Dose: 0.5 mg Documented by: Clopidogrel Bisulfate (Clopidogrel 75 Mg Tablet) 75 mg PO DAILY [facility] Last Admin: 11/17/20 08:13 Dose: 75 mg Documented by: Dextrose (Dextrose 50% Syringe 50 Ml) 25 ml IVP ONCE PRN; Protocol PRN Reason: hypoglycemia protocol Dextrose (Dextrose 50% Syringe 50 Ml) 50 ml IVP PRN PRN; Protocol PRN Reason: hypoglycemia protocol Ferrous Gluconate (Ferrous Gluconate 324 Mg Tablet) 324 mg PO BIDWM [facility] Last Admin: 11/17/20 08:12 Dose: 324 mg Documented by: Folic Acid (Folic Acid 1 Mg Tablet) 1 mg PO BID [facility] Last Admin: 11/17/20 08:13 Dose: 1 mg Documented by: Glucagon (Glucagon 1 Mg/Ml Inj 1 Ml) 1 mg IM ONCE PRN; Protocol PRN Reason: Adult Acute Hypoglycemia Prot. Heparin Sodium (Beef Lung) (Heparin 5,000 Unit/Ml Inj 1 Ml) 0 unit IV PRN PRN; Protocol PRN Reason: Heparin weight-base protocol Last Admin: 11/15/20 10:07 Dose: 7,000 unit Documented by: Azithromycin 500 mg/ Sodium (Chloride) 250 mls @ 250 mls/hr IV DAILY [facility]; Protocol Last Admin: 11/17/20 08:13 Dose: 250 mls/hr Documented by: Dextrose (D5w) 500 mls @ 100 mls/hr IV ONCE PRN; Protocol PRN Reason: Adult Acute Hypoglycemia Prot Heparin Sodium/Sodium Chloride (Heparin Drip) 25,000 unit in 500 mls @ 0 mls/hr IV .Q0M ARMINDA; Protocol Last Titration: 11/16/20 20:40 Dose: 10.05 unit/kg/hr, 31 mls/hr Documented by: Sodium Chloride (Sodium Chloride 0.9%) 1,000 mls @ 0 mls/hr IV .Q0M PRN PRN Reason: hypotension or symptomatic Imipenem/Cilastatin Sodium 250 (mg/ Sodium Chloride) 100 mls @ 200 mls/hr IV Q12H ARMINDA; Protocol Last Infusion: 11/16/20 21:18 Dose: Infused Documented by: Sodium Chloride (Sodium Chloride 0.9%) 1,000 mls @ 0 mls/hr IV .Q0M PRN PRN Reason: hypotension or symptomatic Insulin Aspart (Insulin Aspart 100 Unit/1 Ml) 0 unit SUBCUT WM&BEDTIME [facility]; Protocol Last Admin: 11/17/20 08:12 Dose: Not Given Documented by: Insulin Glargine (Insulin Glargine 100 Units/1 Ml) 60 unit SUBCUT BEDTIME [facility] Last Admin: 11/16/20 20:19 Dose: Not Given Documented by: Levothyroxine Sodium (Levothyroxine 25 Mcg Tablet) 25 mcg PO DAILY [facility] Last Admin: 11/17/20 08:12 Dose: 25 mcg Documented by: Levothyroxine Sodium (Levothyroxine 200 Mcg Tablet) 200 mcg PO DAILY [facility] Last Admin: 11/17/20 08:12 Dose: 200 mcg Documented by: Metoprolol Succinate (Metoprolol Succinate Er (24 Hr) 50 Mg Tablet) 50 mg PO DAILY [facility] Last Admin: 11/16/20 08:48 Dose: 50 mg Documented by: Morphine Sulfate (Morphine 4 Mg/Ml Sdv 1 Ml) 2 mg IVP Q8H PRN PRN Reason: SEVERE PAIN Last Admin: 11/17/20 04:38 Dose: 2 mg Documented by: Multivitamins Therapeutic (Multivitamin Therapeutic Tablet) 1 tab PO DAILY [facility] Last Admin: 11/17/20 08:19 Dose: 1 tab Documented by: Nitroglycerin (Nitroglycerin 1 Gm/Inch Oint Pkt) 2 inch TOPICAL Q6H [facility] Last Admin: 11/17/20 08:15 Dose: 2 inch Documented by: Ondansetron HCl (Ondansetron 2 Mg/Ml Sdv 2 Ml) 4 mg IVP Q6H PRN PRN Reason: NAUSEA AND VOMITING Last Admin: 11/14/20 10:33 Dose: 4 mg Documented by: Pantoprazole Sodium (Pantoprazole Dr 40 Mg Tablet) 40 mg PO DAILY [facility] Last Admin: 11/17/20 08:13 Dose: 40 mg Documented by: Phenytoin (Phenytoin Er 100 Mg Capsule) 200 mg PO BID [facility] Last Admin: 11/17/20 08:19 Dose: 200 mg Documented by: Polyethylene Glycol (Polyethylene Glycol 3350 Pkt 17 Gm) 17 gm PO DAILY [facility] Last Admin: 11/17/20 08:14 Dose: 17 gm Documented by: Thiamine Mononitrate (Thiamine 100 Mg Tablet) 100 mg PO DAILY [facility] Last Admin: 11/17/20 08:13 Dose: 100 mg Documented by: Zinc Gluconate (Zinc Gluconate 50 Mg Tablet) 50 mg PO DAILY [facility] Last Admin: 11/17/20 08:12 Dose: 50 mg Documented by: Vitals/I&O/Wt Last Vital Signs Temp 97.9 F 11/17/20 04:00 Pulse 69 11/17/20 05:46 Resp 11 L 11/17/20 05:30 BP 107/50 11/17/20 05:30 Pulse Ox 98 11/17/20 05:30 11/16/20 11/17/20 11/17/20 22:59 06:59 14:59 Intake Total 1075.8 / 1665.8 706 / 2371.8 Output Total 300 / 300 600 / 900 Balance 775.8 / 1365.8 106 / 1471.8 Weight last 48 hrs Weight 352 lb 12.8 oz Weight 355 lb 2 oz Physical Exam Narrative: EXAM NARRATIVE: GENERAL: The patient is alert and oriented times three. Not in any acute distress. Morbidly obese HEENT: No significant pallor, icterus or lymphadenopathy. Oral cavity: There are no mucous membrane lesions. NECK: Trachea appears to be central. No masses noted. No JVD or thyromegaly appreciated. No carotid bruit. Right IJ in place RESPIRATORY: Chest is symmetrical. No intercostals muscle retraction or any accessory muscle activation. There is no chest wall tenderness. Breath sounds are heard bilaterally. No rales or rhonchi heard. No evidence of any consolidation. The intensity of the breath sounds are diminished in the bases BREASTS: Deferred. HEART: PMI could not be palpated. No palpable precordial events. S1 and S2 are normal. No S3 or S4 heard. No pericardial rub or any click heard. ABDOMEN: Abdomen is obese. Diffuse tenderness in the periumbilical region . No vessel pulsations or distention. No organomegaly appreciated. No abdominal bruit. Bowel sounds are normally heard. : Deferred. RECTAL: Deferred. LYMPHATIC: No lymphadenopathy noted in the neck or groin. EXTREMITIES: 1+ edema both lower extremities. Features of some chronic venous stasis. MUSCULOSKELETAL: No acute joint deformities or swelling SKIN: There are no significant scars or skin rash noted. NEUROPSYCHIATRIC: The patient is alert and oriented x3. No focal motor deficits Urinary Catheter Management^: Acevedo: Cath Placed During This Visit: yes Reason for Continuing Indwelling Catheter: Accurate Measurement of Urinary Output in Critically Ill Patients Urinary Catheter Date of Insertion: 11/13/20 Urinary Catheter Time of Insertion: 14:58 Data : 11/17/20 02:57 11/17/20 02:57 Other Labs: Laboratory Last Values WBC 16.5 10^3/uL (4.0-10.0) H 11/17/20 02:57 RBC 2.66 10^6/uL (4.1-5.3) L 11/17/20 02:57 Hgb 8.5 g/dL (11.5-15.3) L 11/17/20 02:57 Hct 26.5 % (37.0-47.0) L 11/17/20 02:57 MCV 99.6 fL (81-99) H 11/17/20 02:57 MCH 32.0 pg (28.0-34.0) 11/17/20 02:57 MCHC 32.1 g/dL (30.0-36.0) 11/17/20 02:57 RDW 13.4 % (12.1-15.1) 11/17/20 02:57 Plt Count 200 10^3/cmm (130-400) 11/17/20 02:57 MPV 11.5 fL (7.4-10.4) H 11/17/20 02:57 Neut % (Auto) 81.1 % 11/17/20 02:57 Lymph % (Auto) 7.8 % 11/17/20 02:57 [place] % (Auto) 7.0 % 11/17/20 02:57 Eos % (Auto) 1.8 % 11/17/20 02:57 Baso % (Auto) 0.4 % 11/17/20 02:57 Neut # (Auto) 13.39 10^3/uL (1.8-7.7) H 11/17/20 02:57 Lymph # (Auto) 1.3 10^3/uL (0.8-4.8) 11/17/20 02:57 [place] # (Auto) 1.2 10^3/uL (0.2-0.9) H 11/17/20 02:57 Eos # (Auto) 0.3 10^3/uL (0.0-0.8) 11/17/20 02:57 Baso # (Auto) 0.1 10^3/uL (0.0-0.1) 11/17/20 02:57 Nucleated RBC % (auto) 0.1 % 11/17/20 02:57 Total Counted 100 (0-100) 11/15/20 06:01 Atypical Lymphs % 0.0 % (0-5) 11/15/20 06:01 Absolute Neutrophils 19.2 10^3/cmm (1.4-6.5) H 11/15/20 06:01 Segmented Neutrophils 74 % 11/15/20 06:01 Abs Segm Neuts (Man) 14.9 10/cmm (1.6-7.1) H 11/15/20 06:01 Band Neutrophils 21.0 % 11/15/20 06:01 Abs Band Neuts (Man) 4.2 10^3/cmm (0.0-1.2) H 11/15/20 06:01 Absolute Lymphocytes 0.8 10^3/cmm (1.2-3.4) L 11/15/20 06:01 Lymphocytes (Manual) 4 % 11/15/20 06:01 Monocytes (Manual) 0.0 % 11/15/20 06:01 Absolute Monocytes 0.0 10^3/cmm (0.1-0.6) L 11/15/20 06:01 Eosinophils (Manual) 1 % 11/15/20 06:01 Absolute Eosinophils 0.2 10^3/cmm (0.0-0.7) 11/15/20 06:01 Basophils (Manual) 0.0 % 11/15/20 06:01 Absolute Basophils 0.0 10^3/cmm (0.0-0.2) 11/15/20 06:01 Nucleated RBCs # 0.0 /100WBC 11/17/20 02:57 Platelet Estimate Normal (Normal) 11/15/20 06:01 Macrocytosis 1+ H 11/15/20 06:01 APTT 63.5 SECONDS (23.9-36.7) H 11/17/20 02:57 D-Dimer 2.16 ug/mIFEU (0-0.59) H 11/14/20 23:52 Sodium 135 mmol/L (136-145) L 11/17/20 02:57 Potassium 4.1 mmol/L (3.5-5.1) 11/17/20 02:57 Chloride 99 mmol/L (98-107) 11/17/20 02:57 Carbon Dioxide 24 mmol/L (22-29) 11/17/20 02:57 Anion Gap 16.1 (5-19) 11/17/20 02:57 BUN 55 mg/dL (8-23) H 11/17/20 02:57 Creatinine 3.5 mg/dL (0.5-0.9) H 11/17/20 02:57 GFR Calculation Not Reportable 11/17/20 02:57 Glucose 73 mg/dL (65-115) 11/17/20 02:57 POC Glucose 110 mg/dL (70-110) 11/17/20 07:59 Estimat Average Glucose 148 11/14/20 05:43 Hemoglobin A1c 6.8 % (4.0-6.0) H 11/14/20 05:43 Calculated Osmolality 294 mOsm/kg (285-295) 11/17/20 02:57 Lactic Acid 1.6 mmol/L (0.5-2.2) 11/14/20 12:15 Lactic Acid (Sepsis) 3.1 mmol/L (0.5-2.2) H 11/13/20 19:30 Lactate Cancelled 11/13/20 19:30 Calcium 7.4 mg/dL (8.5-10.5) L 11/17/20 02:57 Phosphorus 4.5 mg/dL (2.5-4.5) 11/17/20 02:57 Magnesium 2.0 mg/dL (1.7-2.3) 11/14/20 05:43 Iron 34 ug/dL (37-145) L 11/17/20 02:57 TIBC 110 mcg/dl 11/17/20 02:57 % Saturation 30.9 % (20-50) 11/17/20 02:57 Unsat Iron Binding 76 ug/dL (112-347) L 11/17/20 02:57 Ferritin 1262 ng/mL (15-150) H 11/17/20 02:57 Total Bilirubin 0.4 mg/dL (0.15-1.2) 11/17/20 02:57 AST 14 U/L (0-32) 11/17/20 02:57 ALT 10 U/L (0-33) 11/17/20 02:57 Alkaline Phosphatase 105 IU/L (35-105) 11/17/20 02:57 Creatine Kinase 148 U/L (26-192) 11/15/20 06:01 Troponin T Gen 5 ng/L 1202 ng/L (0-10) H* 11/15/20 16:22 Troponin T Baseline 1184 ng/L (0-10) H* 11/14/20 23:52 Troponin T 120 Minute 1348 ng/L (0-10) H 11/15/20 01:49 Delta Troponin T 164 ABS# (0-10) H* 11/15/20 01:49 Troponin T Hi Sens 6Hr 1276 ng/L (0-10) H 11/15/20 06:01 Troponin T Hi Sens 6Hr Delta 92 ng/L (0-12) H* 11/15/20 06:01 NT-Pro-B Natriuret Pep 4932 pg/mL (0-450) H 11/13/20 10:56 Total Protein 5.6 g/dL (6.6-8.7) L 11/17/20 02:57 Albumin 2.2 g/dL (3.5-5.2) L 11/17/20 02:57 Globulin 3.4 g/dL (1.3-4.6) 11/17/20 02:57 Triglycerides 144 mg/dL (0-150) 11/16/20 05:53 Cholesterol 107 mg/dL (0-200) 11/16/20 05:53 LDL Cholesterol, Calc 45 mg/dL (50-129) L 11/16/20 05:53 Total VLDL Cholesterol 29 mg/dL (0-30) 11/16/20 05:53 HDL Cholesterol 33 mg/dL (60-100) L 11/16/20 05:53 Cholesterol/HDL Ratio 3.24 mg/dL (0.0-4.40) 11/16/20 05:53 Lipase 23 U/L (13-60) 11/13/20 10:56 Vitamin B12 370 pg/mL (232-1245) 11/14/20 05:43 Folate 19.8 ng/mL (4.8-37.3) 11/14/20 05:43 Procalcitonin 2.02 ng/mL (0-0.5) H 11/13/20 10:56 TSH 0.43 uIU/mL (0.27-4.20) 11/13/20 10:56 Urine Color Yellow (Yellow) 11/13/20 14:21 Urine Appearance Clear (CLEAR) 11/13/20 14:21 Urine pH 6.5 (5-7) 11/13/20 14:21 Ur Specific [place] 1.010 (1.005-1.030) 11/13/20 14:21 Urine Protein Trace (Negative) 11/13/20 14:21 Urine Glucose (UA) 4+ (Normal) H 11/13/20 14:21 Urine Ketones Negative (Negative) 11/13/20 14:21 Urine Blood Neg (Negative) 11/13/20 14:21 Urine Nitrate Negative (Negative) 11/13/20 14:21 Urine Bilirubin Neg (Negative) 11/13/20 14:21 Urine Urobilinogen Norm mg/dL (Negative) 11/13/20 14:21 Ur Leukocyte Esterase Negative (Negative) 11/13/20 14:21 Urine RBC None /hpf (0-2) 11/13/20 14:21 Urine WBC None /hpf (0-5) 11/13/20 14:21 Ur Squamous Epith Cells 0-4 /hpf (0-5) H 11/13/20 14:21 Amorphous Sediment Not Reportable 11/13/20 14:21 Urine Bacteria 1+ /hpf (NONE) H 11/13/20 14:21 Ur Random Sodium 82 mmol/L 11/13/20 14:21 Ur Random Potassium 34 mmol/L 11/13/20 14:21 Ur Random Chloride 62 mmol/L 11/13/20 14:21 Urine Creatinine 4 mg/dL (28-217) L 11/13/20 14:21 Random Vancomycin 13.3 ug/mL (20.0-40.0) L 11/15/20 06:01 Random Vancomycin Cancelled 11/15/20 06:01 Nasal/Oral COVID-19 PCR Not detected 11/13/20 17:00 Hep Bs Antigen Non-reactive (Nonreactive) 11/16/20 05:53 Hep Bs Antibody 5.8 (11.5-1000) L 11/16/20 05:53 Hepatitis C Antibody Non-reactive (Nonreactive) 11/16/20 05:53 Influenza Type A Ag Negative (Negative) 11/13/20 17:00 Influenza Type B Ag Negative (Negative) 11/13/20 17:00 SARS-CoV-2 Ag (Rapid) Negative (Negative) 11/13/20 17:00 A&P Assessment and plan (1) Acute non-ST elevation myocardial infarction (NSTEMI): Patient has multiple wall motion normalities in the echocardiogram. It is possible that she may have three-vessel coronary disease. Currently she seems to be stable. May consider a cardiac catheterization, once her renal status is stable. For the time being, she may continue on the current medications. Status: Acute (2) Uqozh-ub-kaveyxh kidney injury: The patient is getting the second hemodialysis session today. I discussed with the Dr. Russell regarding the cardiac catheterization. According to Dr. Russell, she should be able to go for the catheterization on Friday. After the angiogram, she would require hemodialysis. Status: Acute Qualifiers: Acute renal failure type: unspecified Chronic kidney disease stage: stage 4 (severe) Qualified Code(s): N17.9 - Acute kidney failure, unspecified; N18.4 - Chronic kidney disease, stage 4 (severe) (3) PVD (peripheral vascular disease): Currently the patient has no specific symptoms pertaining to the PVD. May continue on the current medications. Status: Acute (4) Community acquired pneumonia: Patient is on IV antibiotics. Remaining afebrile. White cell count is coming down. Status: Acute Qualifiers: Laterality: left Lung location: lower lobe of lung Qualified Code(s): J18.9 - Pneumonia, unspecified organism (5) Colitis: Management as per the hospitalist service. Status: Acute (6) Morbid obesity: Status: Acute Additional A&P Information Her other problems are Essential benign hypertension, currently normotensive Type 2 diabetes Dyslipidemia History of seizure disorder Chronic venous stasis History of DVT-off p.o. anticoagulation Chronic anemia We will continue on the current management. I discussed with Dr. Ennis and Dr Russell. Unless the patient's condition changes, it was thought to be appropriate to go ahead and schedule for the cardiac catheterization on Friday. I also discussed the current condition and treatment plan for the cardiovascular condition with the patient and her son Jimi Lee, who is the power of single fold machine operator. The risk of bleeding, hematoma, vascular injury, recurrent myocardial infarction, CVA, acute heart failure/acute renal failure and other concomitant complications were explained in detail. The patient and the family understood this well and consented to proceed. So we will make arrangements to have the angiogram done on Friday. Addendum Patient is started having chest pain around 12 noon today. This started soon after the dialysis. She was found to be in atrial fibrillation with rapid ventricular rate. She was given 1 sublingual nitro. Her symptoms started subsiding. At the time of my dictation, there pain is 1/10. She was found to be hypotensive after the nitro with a systolic blood pressure around 90. She was started on IV fluid to 50 cc normal saline bolus. Repeat blood pressure is 114/60. The heart rate is currently 112 bpm and is in atrial fibrillation. Apparently the patient did not get the metoprolol this morning. According to the nurse, her blood pressure was in the low normal side. We will go ahead and give her IV Lopressor 5 mg now. If the blood pressure stays in the normal range, we may give her half of the regular dose of metoprolol-25 mg p.o. twice daily. If the patient continues to have chest pains, she may require an early cardiac catheterization. I will be discussing this with my colleague Dr. Sanches who will be covering for this weekend. Patient's son also will be notified about this. Attestations Medical Necessity Statement*: Patient requires continued hospital stay for close monitoring and further management Coding Level of Care Code Acute Surgical First Assistant for g Fwd History Detailed Exam Detailed Medical Decision Making High Complexity Diagnoses Acute non-ST elevation myocardial infarction (NSTEMI) I21.4 Kyxgt-fn-[id number] kidney injury N17.9; N18.4 Acute renal failure type: unspecified Chronic kidney disease stage: stage 4 (severe) PVD (peripheral vascular disease) I73.9 Community acquired pneumonia J18.9 Laterality: left Lung location: lower lobe of lung Colitis K52.9 Morbid obesity E66.01 Time Spent (min) 40
[2020-11-17] MEDS: budesonide 0.5 mg/2 mL Neb INHALATION ×2 (08:44→20:11)
[2020-11-17 09:27] LABS: Partial Thromboplastin Time 62.1 SECONDS (23.9-36.7)
--- NOTE | 2020-11-17 11:00 | PC.NURSE ---
Patient started to have some chest pain rating 3-4/10. Patient has no other symptoms or radiation of pain. Attempted to notify Dr. Gutierrez et was unsuccessful. Called Dr. Jo to notify of patient's development of chest pain. Updated on patient condition, new orders noted et implemented .Will continue to monitor.
--- NOTE | 2020-11-17 11:30 | PC.NURSE ---
Called Dr. Jo to notify of chest pain since unable to reach hospitalist. Updated on patient condition, new orders noted et implemented. Will continue to monitor.
--- NOTE | 2020-11-17 12:01 | PC.NURSE ---
Patient complaining of chest pain 11/20. Patient denies radiation of pain. Notified Dr. Jo. New orders noted et implemented. Will continue to monitor.
--- NOTE | 2020-11-17 12:03 | ECG_ITS ---
[facility] Test Date: 2020-11-17 Pat Name: Carole Lee Department: Room: 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 Measurements Intervals [place] Rate: 114 P: PA: QRS: 94 QRSD: 117 T: 263 QT: 358 QTc: 494 Interpretive Statements ATRIAL FIBRILLATION WITH RAPID VENTRICULAR RESPONSE WITH ABERRANT CONDUCTION OR VENTRICULAR PREMATURE COMPLEXES BORDERLINE RIGHT AXIS DEVIATION [QRS AXIS > 90] LOW QRS VOLTAGE [QRS DEFLECTION < 0.5/1.0 mV IN LIMB/CHEST LEADS] ANTEROSEPTAL MYOCARDIAL INFARCTION, OF INDETERMINATE AGE Compared to ECG 11/15/2020 05:34:41 Aberrant conduction of supraventricular beat(s) now present Ventricular premature complex(es) now present Sinus rhythm no longer present T-wave abnormality no longer present Possible ischemia no longer present Myocardial infarct finding still present Electronically Signed On 11-19-2020 12:12:38 CDT by Rupinder Melchor M.D. [email or web address]
--- NOTE | 2020-11-17 12:37 | PC.NURSE ---
Dr. Jo at bedside. Verbally ordered 0.4 mg sl. Nitro given. Patient rates chest pain 3. Dr. Jo ordered 5 mg lopressor IV now. Will hold 0900 lopressor dose.
[2020-11-17] MEDS: nitroglycerin 0.4 mg sublingual Tablet SUBLINGUAL (12:42)
[2020-11-17] MEDS: metoprolol tartrate 1 mg/1 mL SDV 5 mL 5 MG IV (12:44)
[2020-11-17] MEDS: dextrose 50% syringe 50 mL 25 ML IVP (12:58)
[2020-11-17 13:36] LABS: Glucose Point of Care 68 mg/dL (70-110)
[2020-11-17 14:08] LABS: Glucose Point of Care 148 mg/dL (70-110)
[2020-11-17] MEDS: metoprolol tartrate 25 mg Tablet PO (14:35)
[2020-11-17] MEDS: heparin drip 25,000 UNIT/500 ML PREMIX 31 UNIT IV (14:36)
[2020-11-17 16:34] LABS: Partial Thromboplastin Time 77.6 SECONDS (23.9-36.7)
[2020-11-17] MEDS: dextrose 50% syringe 50 mL IVP (18:22)
[2020-11-17 18:24] LABS: Glucose Point of Care 57 mg/dL (70-110)
[2020-11-17 18:25] LABS: Glucose Point of Care 94 mg/dL (70-110)
[2020-11-17 19:26] LABS: Glucose Point of Care 114 mg/dL (70-110)
[2020-11-17] MEDS: nitroglycerin 1 gm/inch oint Pkt 1 INCH TOPICAL (20:18)
[2020-11-17] MEDS: atorvastatin 40 mg Tablet 80 MG PO (20:18)
[2020-11-17] MEDS: dextrose 5%-sod chloride 0.45% 1,000 ML 30 ML IV (20:19)
[2020-11-17 20:47] LABS: Vancomycin Trough 14.7 ug/mL (10-15)
[2020-11-17 21:34] LABS: Partial Thromboplastin Time 56.4 SECONDS (23.9-36.7)
--- NOTE | 2020-11-17 23:04 | PC.NURSE ---
19:44 Called and spoke with Dr. Berkowitz in regards to Pt status including V/S and episodes of hypoglycemia. See new orders with med adjustments.
[2020-11-17 23:13] LABS: Glucose Point of Care 74 mg/dL (70-110)
[2020-11-18] VITALS (89 sets, daily range): BP systolic 72–160; BP diastolic 40–95; PULSE 81–113; RESP 10–37; TEMP 36.3–36.8; O2SAT 91–99
[2020-11-18 01:48] LABS: Glucose Point of Care 73 mg/dL (70-110)
[2020-11-18] MEDS: ipratropium-albuterol 3 mL Neb INHALATION ×3 (02:26→20:45)
[2020-11-18] MEDS: nitroglycerin 1 gm/inch oint Pkt 1 INCH TOPICAL (03:10)
[2020-11-18 03:58] LABS: Basophils # 0.1 10^3/uL (0.0-0.1); Basophils % 0.7 %; Eosinophils # 0.3 10^3/uL (0.0-0.8); Eosinophils % 2.4 %; Hematocrit 29.2 % (37.0-47.0); Hemoglobin 8.9 g/dL (11.5-15.3); Lymphocytes # 1.6 10^3/uL (0.8-4.8); Lymphocytes % 10.9 %; Mean Corpuscular HGB Conc 30.5 g/dL (30.0-36.0); Mean Corpuscular Hemoglobin 31.9 pg (28.0-34.0); Mean Corpuscular Volume 104.7 fL (81-99); Mean Platelet Volume 11.2 fL (7.4-10.4); Monocytes # 1.5 10^3/uL (0.2-0.9); Monocytes % 10.3 %; Neutrophils # 10.12 10^3/uL (1.8-7.7); Neutrophils % 71.3 %; Nucleated Red Blood Cells % 0.1 %; Platelet Count 203 10^3/cmm (130-400); Red Blood Count 2.79 10^6/uL (4.1-5.3); Red Cell Distribution Width 13.7 % (12.1-15.1); White Blood Count 14.2 10^3/uL (4.0-10.0)
[2020-11-18 04:23] LABS: Alanine Aminotransferase 7 U/L (0-33); Albumin Level 2.1 g/dL (3.5-5.2); Alkaline Phosphatase 127 IU/L (35-105); Anion Gap 14.7 (5-19); Aspartate Amino Transferase 13 U/L (0-32); Blood Urea Nitrogen 33 mg/dL (8-23); Calcium 7.6 mg/dL (8.5-10.5); Carbon Dioxide 23 mmol/L (22-29); Chloride 99 mmol/L (98-107); Globulin 3.8 g/dL (1.3-4.6); Glucose 61 mg/dL (65-115); Osmolality Calculated 281 mOsm/kg (285-295); Potassium 3.7 mmol/L (3.5-5.1); Sodium 133 mmol/L (136-145); Total Bilirubin 0.4 mg/dL (0.15-1.2); Total Protein 5.9 g/dL (6.6-8.7)
[2020-11-18 04:27] LABS: Partial Thromboplastin Time 60.9 SECONDS (23.9-36.7)
[2020-11-18] MEDS: dextrose 50% syringe 50 mL 25 ML IVP (05:43)
[2020-11-18 06:51] LABS: Glucose Point of Care 69 mg/dL (70-110)
--- NOTE | 2020-11-18 07:55 | PC.NURSE ---
pt to photonic laboratory technician with photonic laboratory technician staff
--- NOTE | 2020-11-18 07:58 | XACV_ITS ---
Exam Room: [facility] Ht: 170 cm Wt: 157 kg BSA: 2.82 m2 Gender: Female : 1945 Any Known Allergies: Other Exam Priority: Routine Procedure(s): Procedure Description: Diagnostic procedure Procedure Description: Left Heart Catheterization Diagnostic Cath Status: Elective Diagnostic Findings * Left Main has no disease. * Mid Left Anterior Descending: significant 80% stenosis, NO: 3 flow. * Proximal Right Coronary Artery to Mid Right Coronary Artery: minimal 30% stenosis, NO: 3 flow. * Mid Circumflex: moderate 50% stenosis, NO: 3 flow. * 1st Diagonal: minimal 30% stenosis, NO: 3 flow. * Coronary angiography shows right dominance. Interventional Findings * Mid Left Anterior Descendin% stenosis treated with a MDT R LEENA 2.75X18 LUIS EDUARDO, MDT CARLOS EUPHORA RX [id number] BALLOON, and MDT R LEENA 2.75X12 LUIS EDUARDO. 0% residual stenosis, NO: 3 flow. Conclusions 1. There is significant coronary artery disease with three vessel disease. 2. Mid Left Anterior Descending was treated with a Drug Eluting Stent, Balloon, and Drug Eluting Stent. 3. I 4. FR: After equalizing the distal and proximal pressure of 5. I 6. FR wire proximal to the lesion, mid L 7. AD 8. lesion was crossed with 9. I 10. FR wire. 11. At 12. the end of two minutes 13. I 14. FR was recorded as 0.77, which is significant 15. . Recommendations * Continue current medical management and risk factor modification. Diagnostic RX Recommendation: PCI w/o planned CABG Clinical Evaluation EBL: 5mL-10mL Procedural Details Procedure Consent Obtained. Admit Source: In Patient. Pre-Procedure Time Out. Identified patient by full name and date of as verbalized by the patient/guarantor. Does the consent match the physician's order: Yes. Accurate & Complete Informed Consent: Yes. Inpatient/Outpatient History & Physical on Chart: Yes. If H&P is completed, is and addenduem needed: Yes; If yes, is the addendum complete: N/A. Visualize and Verify Site with Patient/Guarantor: N/A. Relevant Radiology Images available: N/A. Pre-op teaching completed and patient verbalized understanding. The risks, benefits, and alternatives of sedation and/or procedure were discussed by physician. The patient agrees to continue. Procedure started. Correct patient, site and procedure confirmed by cath team. PERRLA. Strong, equal hand manager food beverage bilaterally. Lungs clear x 5 lobes. IV Site on Arrival: 20 gauge in the left upper arm. IV Site on Arrival: 20 gauge in the right upper arm. bilateral groins was prepped with chloroprep then draped in the usual sterile fashion. right radial was prepped with chloroprep then draped in the usual sterile fashion. Baseline sample Acquired. HR: 85 BPM. Physician arrived. Physician scrubbed in. Immediate Pre-Procedure Time Out. Correct Patient: Yes; Correct Procedure: Yes; Correct Site: Yes; Correct Patient Position: Yes; Correct Supplies: Yes; Dried Flammable Prep: Yes; Blood Products Available: N/A;. Lidocaine 1% infiltrated to the right groin. Arterial access obtained with micropuncture set. Venous access obtained. A 5 malian JL4 catheter in over wire. ACT drawn. Results 109 seconds. Therapeutic limits - pre-heparin administration 90-150 seconds and monitoring heparin during a vascular procedure >250 seconds. Multiple views taken of left coronary artery. Catheter redirected to the RCA. Catheter out. 6 malian JL 3.5 guide catheter was inserted over the wire. FFR wire out to re-zero. An FFR value of 0.79 was obtained for a lesion located at Mid LAD. FFR wire out. Odum guidewire was advanced through the guide catheter to lesion in the mid LAD. #2 Odum guidewire was advanced through the guide catheter to lesion in the mid LAD. both wires backed into guide. both wires out. Guide catheter out. 6 malian XB 3.5 guide catheter was inserted over the wire. ACT drawn. Results 180 seconds. Therapeutic limits - pre-heparin administration 90-150 seconds and monitoring heparin during a vascular procedure >250 seconds. Runthrough guidewire was advanced through the guide catheter to lesion in the mid LAD. Inflation number : 1 A AB TREK 2.50X15 RX BALLOON was prepped and advanced across the Mid LAD1 , then inflated to 12 DOLORES for 0:16 seconds. Inflation number: 2 The AB TREK 2.50X15 RX BALLOON was reinflated across the Mid LAD1, to 14 DOLORES for 0:13 seconds. Balloon out. Inflation Number : 1 A MDT R LEENA 2.75X18 LUIS EDUARDO -Lot Number# [id number] exp date: 07-27-2022 was prepped and advanced across the Mid LAD. The stent was deployed at 12 DOLORES for 0:21 seconds. Stent balloon out over wire. Inflation number : 2 A MDT NC EUPHORA RX [id number] BALLOON was prepped and advanced across the Mid LAD , then inflated to 14 DOLORES for 0:16 seconds. Inflation number: 3 The MDT NC EUPHORA RX [id number] BALLOON was reinflated across the Mid LAD, to 14 DOLORES for 0:14 seconds. Balloon out. Wire out. Results checked. Runthrough guidewire was advanced through the guide catheter to lesion in the mid LAD. Inflation Number : 4 A MDT R LEENA 2.75X12 LUIS EDUARDO -Lot Number# [id number] exp date: 07-04-2022 was prepped and advanced across the Mid LAD. The stent was deployed at 14 DOLORES for 0:27 seconds. Inflation number: 5 The stent balloon was then re-inflated across the Mid LAD to 18 DOLORES for 0:21 seconds. Balloon out. Wire out. Results checked. Guide catheter out. ACT drawn. Results 188 seconds. Therapeutic limits - pre-heparin administration 90-150 seconds and monitoring heparin during a vascular procedure >250 seconds. Sheath(s) sutured into position with 2-0 silk and sterile 4x4's and Op-site applied over the site. No oozing or signs and symptoms of hematoma noted. Arterial sheath flushed and connected to tranducer and pressure bag with heparinized saline. PERRLA. Strong, equal hand manager food beverage bilaterally. No VTE prophylaxis required. Medication's Wasted: Other = versed 1 mg. Medication's Wasted: Other = Adenosine 90 mg. Medication's Wasted: Nitro = 49.7 mg. Total IV fluids: 75 mL. [facility] Clinical Fraility Score: 4: Vulnerable. Radio Maintainer Indications: ACS > 24 hours. Chest Pain Symptom Assessment: Atypical Angina. Cardiovascular Instability: No,. PCI Indication: significant mid LAD lesion by IFR. Post-op diagnosis: PCI to mid LAD with 2 overlapping LUIS EDUARDO. Contrast type used: Omnipaque 300 mgI/mL, 500 mL bottle. Contrast Material : Omnipaque 360 ml. A Suture was successful obtaining hemostatsis at the Right Femoral vein insertion site. A Suture was successful obtaining hemostatsis at the Right Femoral artery insertion site. Complications: none. Estimated blood loss: 5mL-10mL. Procedure completed. Patient transferred by bed to ICU. Vital chart was stopped. Access Site Site: Right Femoral vein Sheath Size: 5 Fr Hemostasis Method: Suture Hemostasis Success: Successful Site: Right Femoral artery Sheath Size: 6 Fr Hemostasis Method: Suture Hemostasis Success: Successful Procedure Medications Start: 8:29 AM Stop: 8:29 AM Medication: Fentanyl Amount: 50 mcg Route: I.V. Start: 8:29 AM Stop: 8:29 AM Medication: Benadryl Amount: 50 mg Route: I.V. Start: 9:07 AM Stop: 9:07 AM Medication: Fentanyl Amount: 25 mcg Route: I.V. Start: 9:19 AM Stop: 9:19 AM Medication: Heparin Amount: 5000 units Route: I.V. Start: 9:22 AM Stop: 9:22 AM Medication: Fentanyl Amount: 25 mcg Route: I.V. Start: 9:33 AM Stop: 9:33 AM Medication: Versed Amount: 1 mg Route: I.V. Start: 9:45 AM Stop: 9:45 AM Medication: Heparin Amount: 5000 units Route: I.V. Start: 9:48 AM Stop: 9:48 AM Medication: Fentanyl Amount: 50 mcg Route: I.V. Start: 10:00 AM Stop: 10:00 AM Medication: Heparin Amount: 3000 units Route: I.V. Start: 10:04 AM Stop: 10:04 AM Medication: Fentanyl Amount: 50 mcg Route: I.V. Start: 10:11 AM Stop: 10:11 AM Medication: Nitrogylcerin Amount: 300 mcg Route: I.C. Start: 10:20 AM Stop: 10:20 AM Medication: Heparin Amount: 2000 units Route: I.V. I, the attending physician, have reviewed and verified all procedure medications. Yes, all medications given per verbal order Report Signatures Finalized by Ruddy Sanches MD on 11/29/2020 07:22 PM
--- NOTE | 2020-11-18 10:23 | PC.NURSE ---
report received from dye lab technician pt will be in route to ICU shortly received 2 stents to mid LAD. Marychuy and Venous line to femoral.
--- NOTE | 2020-11-18 10:40 | PC.NURSE ---
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 arterial and venous sheath noted to the right groin.
--- NOTE | 2020-11-18 10:46 | W.PM.OPSUD ---
Surgery/Procedure H&P Update DATE OF PROCEDURE: November 18, 2020 DATE H&P PERFORMED: 11/17/20 H&P UPDATE INFORMATION: I have reviewed H&P completed within last 30 days, I have examined patient prior to procedure and No changes to prior documentation PREOP DIAGNOSIS: Acute coronary syndrome, chest pain PATIENT REASSESSED PRIOR TO SEDATION, WITH NO CHANGE NOTED: Yes PHYSICAL EXAM: alert, oriented x 3 and clear to auscultation bilaterally AIRWAY EVAL/ANESTHESIA PLAN: ASA II, Risks, benefits & alternatives of sedation and/or procedure discussed and Patient agrees to continue as planned
--- NOTE | 2020-11-18 11:35 | P.PN_ITS ---
Subjective Subjective: Interval history: Patient seen multiple times during the day today. Overnight patient had event of A. fib with RVR for which she was started on amiodarone drip. Patient did have an episode of chest pain early in the morning. Patient underwent cardiac catheterization and underwent placement of 2 LUIS EDUARDO to LAD. Patient tolerated procedure well. Patient also underwent hemodialysis which she tolerated well. Patient states she is feeling okay and abdominal pain is less. Denies any nausea vomiting, vomiting, headache. Vitals/I&O/Wt Last Vital Signs Temp 97.3 F L 11/18/20 00:00 Pulse 96 11/18/20 10:46 Resp 13 11/18/20 07:45 BP 116/75 11/18/20 07:45 Pulse Ox 98 11/18/20 07:45 11/17/20 11/18/20 11/18/20 22:59 06:59 14:59 Intake Total 35 / 835.2 317.35 / 1152.55 Output Total 350 / 1025 0 / 1025 Balance -315 / -189.8 317.35 / 127.55 Weight last 48 hrs Weight 157.306 kg Weight 160.027 kg Physical Exam Narrative: EXAM NARRATIVE: General: No acute distress, awake alert x3, on 2 L HEENT: PERRLA, pupils bilaterally equal and reactive Chest: Normal vesicular breath sounds, no added sounds, equal good air entry bilaterally CVS: S1-S2 regular, no murmurs, no tachycardia, no gallops, no rubs Abdomen: Soft, morbidly obese, large pannus, tenderness diffuse all over the abdomen more so in the right lower quadrant, difficult to assess for organomegaly because of pannus, bowel sounds sluggish Neuro: Drowsy, AO x3 on arousal, difficult to assess power right now Urinary Catheter Management^: Acevedo: Cath Placed During This Visit: yes Reason for Continuing Indwelling Catheter: Accurate Measurement of Urinary O utput in Critically Ill Patients Urinary Catheter Date of Insertion: 11/13/20 Urinary Catheter Time of Insertion: 14:58 Data : 11/18/20 03:41 11/18/20 03:41 Micro: Microbiology 11/17/20 20:03 Blood Culture - Preliminary Blood SPECIMEN COLLECTED 11/17/20 20:00 Blood Culture - Preliminary Blood SPECIMEN COLLECTED 11/13/20 10:45 Stool Lactoferrin - Final Stool C.difficile Toxin B Gene (PCR) - Final 11/13/20 16:40 Blood Culture - Preliminary Blood Gram positive cocci Laboratory Results WBC 14.2 10^3/uL (4.0-10.0) H 11/18/20 03:41 RBC 2.79 10^6/uL (4.1-5.3) L 11/18/20 03:41 Hgb 8.9 g/dL (11.5-15.3) L 11/18/20 03:41 Hct 29.2 % (37.0-47.0) L 11/18/20 03:41 MCV 104.7 fL (81-99) H 11/18/20 03:41 MCH 31.9 pg (28.0-34.0) 11/18/20 03:41 MCHC 30.5 g/dL (30.0-36.0) 11/18/20 03:41 RDW 13.7 % (12.1-15.1) 11/18/20 03:41 Plt Count 203 10^3/cmm (130-400) 11/18/20 03:41 MPV 11.2 fL (7.4-10.4) H 11/18/20 03:41 Neut % (Auto) 71.3 % 11/18/20 03:41 Lymph % (Auto) 10.9 % 11/18/20 03:41 Rosebud % (Auto) 10.3 % 11/18/20 03:41 Eos % (Auto) 2.4 % 11/18/20 03:41 Baso % (Auto) 0.7 % 11/18/20 03:41 Neut # (Auto) 10.12 10^3/uL (1.8-7.7) H 11/18/20 03:41 Lymph # (Auto) 1.6 10^3/uL (0.8-4.8) 11/18/20 03:41 Rosebud # (Auto) 1.5 10^3/uL (0.2-0.9) H 11/18/20 03:41 Eos # (Auto) 0.3 10^3/uL (0.0-0.8) 11/18/20 03:41 Baso # (Auto) 0.1 10^3/uL (0.0-0.1) 11/18/20 03:41 Nucleated RBC % (auto) 0.1 % 11/18/20 03:41 Total Counted 100 (0-100) 11/15/20 06:01 Atypical Lymphs % 0.0 % (0-5) 11/15/20 06:01 Absolute Neutrophils 19.2 10^3/cmm (1.4-6.5) H 11/15/20 06:01 Segmented Neutrophils 74 % 11/15/20 06:01 Abs Segm Neuts (Man) 14.9 10/cmm (1.6-7.1) H 11/15/20 06:01 Band Neutrophils 21.0 % 11/15/20 06:01 Abs Band Neuts (Man) 4.2 10^3/cmm (0.0-1.2) H 11/15/20 06:01 Absolute Lymphocytes 0.8 10^3/cmm (1.2-3.4) L 11/15/20 06:01 Lymphocytes (Manual) 4 % 11/15/20 06:01 Monocytes (Manual) 0.0 % 11/15/20 06:01 Absolute Monocytes 0.0 10^3/cmm (0.1-0.6) L 11/15/20 06:01 Eosinophils (Manual) 1 % 11/15/20 06:01 Absolute Eosinophils 0.2 10^3/cmm (0.0-0.7) 11/15/20 06:01 Basophils (Manual) 0.0 % 11/15/20 06:01 Absolute Basophils 0.0 10^3/cmm (0.0-0.2) 11/15/20 06:01 Nucleated RBCs # 0.0 /100WBC 11/18/20 03:41 Platelet Estimate Normal (Normal) 11/15/20 06:01 Macrocytosis 1+ H 11/15/20 06:01 APTT 45.3 SECONDS (23.9-36.7) H D 11/18/20 16:29 D-Dimer 2.16 ug/mIFEU (0-0.59) H 11/14/20 23:52 Sodium 133 mmol/L (136-145) L 11/18/20 03:41 Potassium 3.7 mmol/L (3.5-5.1) 11/18/20 03:41 Chloride 99 mmol/L (98-107) 11/18/20 03:41 Carbon Dioxide 23 mmol/L (22-29) 11/18/20 03:41 Anion Gap 14.7 (5-19) 11/18/20 03:41 BUN 33 mg/dL (8-23) H 11/18/20 03:41 Creatinine 2.4 mg/dL (0.5-0.9) H 11/18/20 03:41 GFR Calculation Not Reportable 11/18/20 03:41 Glucose 61 mg/dL (65-115) L 11/18/20 03:41 POC Glucose 87 mg/dL (70-110) 11/18/20 15:13 Estimat Average Glucose 148 11/14/20 05:43 Hemoglobin A1c 6.8 % (4.0-6.0) H 11/14/20 05:43 Calculated Osmolality 281 mOsm/kg (285-295) L 11/18/20 03:41 Lactic Acid 1.6 mmol/L (0.5-2.2) 11/14/20 12:15 Lactic Acid (Sepsis) 3.1 mmol/L (0.5-2.2) H 11/13/20 19:30 Lactate Cancelled 11/13/20 19:30 Calcium 7.6 mg/dL (8.5-10.5) L 11/18/20 03:41 Phosphorus 4.5 mg/dL (2.5-4.5) 11/17/20 02:57 Magnesium 2.0 mg/dL (1.7-2.3) 11/14/20 05:43 Iron 34 ug/dL (37-145) L 11/17/20 02:57 TIBC 110 mcg/dl 11/17/20 02:57 % Saturation 30.9 % (20-50) 11/17/20 02:57 Unsat Iron Binding 76 ug/dL (112-347) L 11/17/20 02:57 Ferritin 1262 ng/mL (15-150) H 11/17/20 02:57 Total Bilirubin 0.4 mg/dL (0.15-1.2) 11/18/20 03:41 AST 13 U/L (0-32) 11/18/20 03:41 ALT 7 U/L (0-33) 11/18/20 03:41 Alkaline Phosphatase 127 IU/L (35-105) H 11/18/20 03:41 Creatine Kinase 148 U/L (26-192) 11/15/20 06:01 Troponin T Gen 5 ng/L 1202 ng/L (0-10) H* 11/15/20 16:22 Troponin T Baseline 1184 ng/L (0-10) H* 11/14/20 23:52 Troponin T 120 Minute 1348 ng/L (0-10) H 11/15/20 01:49 Delta Troponin T 164 ABS# (0-10) H* 11/15/20 01:49 Troponin T Hi Sens 6Hr 1276 ng/L (0-10) H 11/15/20 06:01 Troponin T Hi Sens 6Hr Delta 92 ng/L (0-12) H* 11/15/20 06:01 NT-Pro-B Natriuret Pep 4932 pg/mL (0-450) H 11/13/20 10:56 Total Protein 5.9 g/dL (6.6-8.7) L 11/18/20 03:41 Albumin 2.1 g/dL (3.5-5.2) L 11/18/20 03:41 Globulin 3.8 g/dL (1.3-4.6) 11/18/20 03:41 Triglycerides 144 mg/dL (0-150) 11/16/20 05:53 Cholesterol 107 mg/dL (0-200) 11/16/20 05:53 LDL Cholesterol, Calc 45 mg/dL (50-129) L 11/16/20 05:53 Total VLDL Cholesterol 29 mg/dL (0-30) 11/16/20 05:53 HDL Cholesterol 33 mg/dL (60-100) L 11/16/20 05:53 Cholesterol/HDL Ratio 3.24 mg/dL (0.0-4.40) 11/16/20 05:53 Lipase 23 U/L (13-60) 11/13/20 10:56 Vitamin B12 370 pg/mL (232-1245) 11/14/20 05:43 Folate 19.8 ng/mL (4.8-37.3) 11/14/20 05:43 Procalcitonin 2.02 ng/mL (0-0.5) H 11/13/20 10:56 TSH 0.43 uIU/mL (0.27-4.20) 11/13/20 10:56 Urine Color Yellow (Yellow) 11/13/20 14:21 Urine Appearance Clear (CLEAR) 11/13/20 14:21 Urine pH 6.5 (5-7) 11/13/20 14:21 Ur Specific Gail 1.010 (1.005-1.030) 11/13/20 14:21 Urine Protein Trace (Negative) 11/13/20 14:21 Urine Glucose (UA) 4+ (Normal) H 11/13/20 14:21 Urine Ketones Negative (Negative) 11/13/20 14:21 Urine Blood Neg (Negative) 11/13/20 14: Urine Nitrate Negative (Negative) 11/13/20 14: Urine Bilirubin Neg (Negative) 11/13/20 14:21 Urine Urobilinogen Norm mg/dL (Negative) 11/13/20 14:21 Ur Leukocyte Esterase Negative (Negative) 11/13/20 14:21 Urine RBC None /hpf (0-2) 11/13/20 14:21 Urine WBC None /hpf (0-5) 11/13/20 14:21 Ur Squamous Epith Cells 0-4 /hpf (0-5) H 11/13/20 14:21 Amorphous Sediment Not Reportable 11/13/20 14:21 Urine Bacteria 1+ /hpf (NONE) H 11/13/20 14:21 Ur Random Sodium 82 mmol/L 11/13/20 14:21 Ur Random Potassium 34 mmol/L 11/13/20 14:21 Ur Random Chloride 62 mmol/L 11/13/20 14:21 Urine Creatinine 4 mg/dL (28-217) L 11/13/20 14:21 Vancomycin Trough 14.7 ug/mL (10-15) 11/17/20 20:00 Random Vancomycin 13.3 ug/mL (20.0-40.0) L 11/15/20 06:01 Random Vancomycin Cancelled 11/15/20 06:01 Nasal/Oral COVID-19 PCR Not detected 11/13/20 17:00 Hep Bs Antigen Non-reactive (Nonreactive) 11/16/20 05:53 Hep Bs Antibody 5.8 (11.5-1000) L 11/16/20 05:53 Hepatitis C Antibody Non-reactive (Nonreactive) 11/16/20 05:53 Influenza Type A Ag Negative (Negative) 11/13/20 17:00 Influenza Type B Ag Negative (Negative) 11/13/20 17:00 SARS-CoV-2 Ag (Rapid) Negative (Negative) 11/13/20 17:[address] 11/13/20 17:24 IMPRESSION: 1. Mild cardiomegaly. 2. Small right pleural effusion. Tiny left pleural effusion. 3. Bilateral pulmonary opacities which may be secondary to pneumonia or atelectasis. Radiation Dose CTDIVOL = (mGy): DLP = 1273.51 (mGy-cm) Chest X-Ray 11/15/20 15:36 Impression: Insertion of right internal jugular venous catheter. Abdomen/Pelvis CT 11/16/20 08:59 IMPRESSION: 1. No significant changes. Residual right colonic mild severity wall thickening and pericolonic fatty induration changes. 2. Retained contrast in the renal parenchyma. Recommend correlation for contrast induced nephropathy. COMMENTS: Consistent with the [employer]'s Incidental Findings Committee white paper (J Am Donny Radiol 2018): Any incidental renal lesion less than 1 cm or classified as too small to characterize, or any incidental cystic renal lesion characterized as simple-appearing, is likely benign. No follow-up imaging is recommended for these lesions per consensus recommendations based on imaging criteria. Radiation Dose CTDIVOL = (mGy): DLP = 2721.03 (mGy-cm) Abdomen X-Ray 11/16/20 10:30 Impression: 1. Dilated small bowel loops with air in the colon. 2. Possible early small bowel obstruction or severe generalized ileus. Microbiology 11/13/20 16:24 Blood Blood Culture - Final NO GROWTH AFTER 5 DAYS 11/13/20 16:40 Blood Blood Culture - Preliminary Coagulase negativ staphylococc 11/13/20 10:45 Stool Stool Lactoferrin - Final 11/13/20 10:45 Stool Enteric Pathogens (PCR) - Preliminary?Shiga toxin 11/13/20 10:45 Stool C.difficile Toxin B Gene (PCR) - Final 11/17/20 20:03 Blood Blood Culture - Preliminary SPECIMEN COLLECTED 11/17/20 20:00 Blood Blood Culture - Preliminary SPECIMEN COLLECTED 11/13/20 14:21 Urine,Voided Urine Culture - Final 11/13/20 17:00 Nose MRSA Culture - Final 11/13/20 14:21 Unknown Source Legionella Urinary Antigen - Final A&P Assessment and plan (1) Sepsis: Status: Acute (2) Colitis: Status: Acute (3) Acute non-ST elevation myocardial infarction (NSTEMI): Status: Acute (4) Renal insufficiency: Status: Acute (5) Status post insertion of drug-eluting stent into left anterior descending (LAD) artery: Status: Acute (6) 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: Status: Acute (7) Morbid obesity: Status: Acute (8) Diabetes: Status: Acute (9) CAD (coronary artery disease): Status: Acute (10) [id number] kidney injury: Status: Acute Qualifiers: Acute renal failure type: unspecified Chronic kidney disease stage: stage 4 (severe) Qualified Code(s): N17.9 - Acute kidney failure, unspecified; N18.4 - Chronic kidney disease, stage 4 (severe) (11) Afib: Status: Acute Additional A&P Information 74-year-old female with past medical history of morbid obesity, CAD, peripheral vascular disease presented to the ER via EMS with possible complaint of abdominal pain and difficulty in breathing found to be saturating in 80s requiring 6 L oxygen saturation found to have diffuse colitis on CT abdomen pelvis and possible pneumonia. Sepsis: Criteria met with leukocytosis, borderline blood pressures on admission, tachypnea. Sepsis secondary to colitis and community-acquired pneumonia: Resolving. Stool studies consistent with Shiga toxin. Keep mean arterial pressures around 65. Blood cultures from admission now growing 1 out of 4 coag negative staph which is most likely contaminant. Repeat blood culture sent yesterday. Urine culture sputum culture remain negative to date. C. difficile negative. Repeat CT appreciated. Continue with aggressive bowel regimen. Keep saturation over 90 %. Wean off oxygen supplementation accordingly. DuoNebs every 6 hour, budesonide twice daily NSTEMI: Post stenting to LAD. Stop heparin drip, nitro patch. Continue with aspirin, Plavix, statin. Metoprolol 25 mg twice daily. Will uptitrate as per the heart rate and blood pressure. Echocardiogram results appreciated. EF 40%, diffuse hypokinesia of septum, anteroseptal, inferior wall and LV apex, mildly increased left atrial size, mild MR. Atrial fibrillation: Well into RVR overnight. Started on amnio drip. For now continue to finish the amnio drip with 24-hour protocol. Start metoprolol 25 mg twice daily with uptitrate as per the blood pressures. We will start on Eliquis 5 mg twice daily once the PTT comes down to normal. Currently more than 250 Hypertension: Goal blood pressure less than 140/90 mmHg. We will continue to monitor blood pressures. We will start the medications as per the blood pressures. TIFFANY on chronic kidney disease: Baseline creatinine seems to be around 2. Continues to have oliguria though improving. Plan for dialysis today. Overall has had 2 sessions of dialysis till now over last 2 days. Nephrology recs appreciated. Diabetes mellitus: Continues to remain high for now. Stop Lantus. Continue with D5 half NS at 30 cc/h for now. Sliding scale at low-dose protocol. Morbid obesity CAD CODE STATUS: On discussion with CODE STATUS with patient she would want to be full code for now. Patient states her DPOA will be her son who she lives with. She states her son's name is Jimi Lee. Eliquis will also help. DVT prophylaxis as well. GI soft diet regular diet for now.. 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
[2020-11-18] MEDS: thiamine 100 mg Tablet PO (12:11)
[2020-11-18] MEDS: levothyroxine 25 mcg Tablet PO (12:11)
[2020-11-18] MEDS: clopidogrel 75 mg Tablet PO (12:12)
[2020-11-18] MEDS: multivitamin therapeutic Tablet 1 TAB PO (12:12)
[2020-11-18] MEDS: aspirin 81 mg EC Tablet PO (12:12)
[2020-11-18] MEDS: levothyroxine 200 mcg Tablet PO (12:12)
[2020-11-18] MEDS: pantoprazole DR 40 mg Tablet PO (12:12)
[2020-11-18] MEDS: metoprolol tartrate 25 mg Tablet PO ×2 (12:13→21:04)
[2020-11-18] MEDS: folic acid 1 mg Tablet PO ×2 (12:13→18:49)
[2020-11-18] MEDS: phenytoin ER 100 mg Capsule 200 MG PO ×2 (12:20→18:56)
[2020-11-18 12:41] LABS: Glucose Point of Care 91 mg/dL (70-110)
[2020-11-18 12:41] LABS: Glucose Point of Care 85 mg/dL (70-110)
[2020-11-18 13:19] LABS: Partial Thromboplastin Time > 250.0 SECONDS (23.9-36.7)
[2020-11-18 15:16] LABS: Glucose Point of Care 87 mg/dL (70-110)
--- NOTE | 2020-11-18 16:59 | PC.SOCIAL ---
IMM Update Pg. 2 of IMM updated. Copy provided to patient.
[2020-11-18 17:03] LABS: Partial Thromboplastin Time 45.3 SECONDS (23.9-36.7)
--- NOTE | 2020-11-18 17:24 | PM.PN ---
Subjective Subjective: Interval history: I am seeing her in follow up for her renal failure. Had cardiac cath this morning & 2 stents were placed as per pt's nurse. No nausea or vomiting Medications: Reviewed: Yes Vitals/I&O/Wt Last Vital Signs Temp 98.2 F 11/18/20 15:15 Pulse 99 11/18/20 16:45 Resp 19 H 11/18/20 16:45 BP 160/67 11/18/20 16:45 Pulse Ox 94 11/18/20 16:45 11/18/20 11/18/20 11/18/20 06:59 14:59 22:59 Intake Total 317.35 / 1152.55 240 / 240 Output Total 0 / 1025 Balance 317.35 / 127.55 240 / 240 Weight last 48 hrs Weight 157.306 kg Weight 160.027 kg Physical Exam Const: COMMON NORMALS: no acute distress and alert GENERAL APPEARANCE: cooperative ORIENTATION/CONSCIOUSNESS: Yes awake Resp: AUSCULTATION: crackles Cardio: COMMON NORMALS: S1 normal heart sound present and S2 normal heart sound present HEART SOUNDS: S1 normal heart sound present and S2 normal heart sound present GI: AUSCULTATION: Yes normoactive bowel sounds Extremity: GENERAL: Yes edema Neuro: SENSORIUM/ORIENTATION: Yes alert Skin: COMMON NORMALS: no rashes or lesions noted GENERAL SKIN EXAM: no rashes or lesions noted Urinary Catheter Management^: Acevedo: Cath Placed During This Visit: yes Reason for Continuing Indwelling Catheter: Accurate Measurement of Urinary Output in Critically Ill Patients Urinary Catheter Date of Insertion: 11/13/20 Urinary Catheter Time of Insertion: 14:58 Data : 11/18/20 03:41 11/18/20 03:41 Micro: Microbiology 11/13/20 16:24 Blood Culture - Final Blood NO GROWTH AFTER 5 DAYS 11/13/20 16:40 Blood Culture - Preliminary Blood Coagulase negativ staphylococc 11/13/20 10:45 Stool Lactoferrin - Final Stool Enteric Pathogens (PCR) - Preliminary C.difficile Toxin B Gene (PCR) - Final 11/17/20 20:03 Blood Culture - Preliminary Blood SPECIMEN COLLECTED 11/17/20 20:00 Blood Culture - Preliminary Blood SPECIMEN COLLECTED A&P Assessment and plan (1) TIFFANY (acute kidney injury): We will do HD today for 3hrs with 3k bath and pull atleast 1 lit of fluid if tolerated as pt got cardiac cath this morning Status: Acute (2) HTN (hypertension): BP fluctuating, will monitor closely Status: Acute (3) Anemia: Follow hb Status: Acute (4) Hyponatremia: Monitor sodium level Status: Acute Attestations Medical Necessity Statement*: TIFFANY Coding Level of Care Code 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
[2020-11-18] MEDS: ferrous gluconate 324 mg Tablet PO (18:49)
[2020-11-18] MEDS: dextrose 5%-sod chloride 0.45% 1,000 ML 30 ML IV (19:22)
--- NOTE | 2020-11-18 19:44 | PC.NURSE ---
arterial/venous sheath arterial sheath removed approx 20 minutes of pressure applied. pt tolerated fair. venous sheath removed after removal of the arterial sheath for approx 10 minutes. pt tolerated fair. site cleaned and dressing applied. Will closely monitor.
[2020-11-18] MEDS: HYDROcodone-acetaminophen 5-325 mg Tablet 2 TAB PO (19:46)
--- NOTE | 2020-11-18 19:48 | PC.NURSE ---
small hematoma noted to the right groin. pressure reapplied for approx 20 minutes and pressure dressing applied. will closely monitor. dr alcaraz notified of hematoma formation.
[2020-11-18 19:58] LABS: Glucose Point of Care 80 mg/dL (70-110)
[2020-11-18 19:58] LABS: Glucose Point of Care 33 mg/dL (70-110)
[2020-11-18 20:40] LABS: Glucose Point of Care 82 mg/dL (70-110)
[2020-11-18] MEDS: budesonide 0.5 mg/2 mL Neb INHALATION (20:45)
[2020-11-18] MEDS: atorvastatin 40 mg Tablet 80 MG PO (21:04)
[2020-11-18] MEDS: ALPRAZolam 0.25 mg Tablet PO (21:04)
[2020-11-18 22:16] LABS: Glucose Point of Care 90 mg/dL (70-110)
[2020-11-18 22:26] LABS: Cortisol Random 25.28 ug/dL (2.47-19.5)
[2020-11-19] VITALS (85 sets, daily range): BP systolic 69–154; BP diastolic 39–114; PULSE 75–115; RESP 8–32; TEMP 36.4–37.1; O2SAT 89–100
[2020-11-19 00:08] LABS: Glucose Point of Care 107 mg/dL (70-110)
[2020-11-19] MEDS: morphine 4 mg/mL SDV 1 mL 2 MG IVP (01:11)
[2020-11-19 02:23] LABS: Glucose Point of Care 115 mg/dL (70-110)
[2020-11-19] MEDS: ipratropium-albuterol 3 mL Neb INHALATION ×4 (02:37→20:40)
[2020-11-19 04:29] LABS: Glucose Point of Care 126 mg/dL (70-110)
[2020-11-19 04:29] LABS: Glucose Point of Care 82 mg/dL (70-110)
[2020-11-19 04:39] LABS: Basophils # 0.1 10^3/uL (0.0-0.1); Basophils % 0.9 %; Eosinophils # 0.3 10^3/uL (0.0-0.8); Eosinophils % 1.7 %; Hematocrit 29.6 % (37.0-47.0); Hemoglobin 8.8 g/dL (11.5-15.3); Lymphocytes # 1.8 10^3/uL (0.8-4.8); Lymphocytes % 11.8 %; Mean Corpuscular HGB Conc 29.7 g/dL (30.0-36.0); Mean Corpuscular Volume 107.6 fL (81-99); Mean Platelet Volume 10.7 fL (7.4-10.4); Monocytes # 1.6 10^3/uL (0.2-0.9); Monocytes % 10.6 %; Neutrophils # 10.23 10^3/uL (1.8-7.7); Nucleated Red Blood Cells % 0.1 %; Platelet Count 211 10^3/cmm (130-400); Red Blood Count 2.75 10^6/uL (4.1-5.3); Red Cell Distribution Width 14.1 % (12.1-15.1)
--- NOTE | 2020-11-19 04:56 | PC.NURSE ---
Shift summary Post sheath removal hematoma site soft, without redness or warmth, doppled pulses. Amio gtt D/C'd at 02:45 as per ordered, 24 hrs after start time. Blood sugars stable throughout shift on ordered dextrose 5%-sod chloride 0.45% @ 30 mls/hr, without any additional interventions.
[2020-11-19 05:07] LABS: Alanine Aminotransferase 7 U/L (0-33); Albumin Level 1.8 g/dL (3.5-5.2); Alkaline Phosphatase 137 IU/L (35-105); Anion Gap 15.1 (5-19); Aspartate Amino Transferase 26 U/L (0-32); Blood Urea Nitrogen 20 mg/dL (8-23); Calcium 7.6 mg/dL (8.5-10.5); Carbon Dioxide 24 mmol/L (22-29); Chloride 98 mmol/L (98-107); Globulin 3.8 g/dL (1.3-4.6); Glucose 111 mg/dL (65-115); Osmolality Calculated 279 mOsm/kg (285-295); Potassium 4.1 mmol/L (3.5-5.1); Sodium 133 mmol/L (136-145); Total Bilirubin 0.3 mg/dL (0.15-1.2); Total Protein 5.6 g/dL (6.6-8.7)
[2020-11-19 05:28] LABS: Slide Review Slide Review Perform
[2020-11-19 05:42] LABS: Cortisol Random 23.66 ug/dL (2.47-19.5)
[2020-11-19 06:32] LABS: Glucose Point of Care 122 mg/dL (70-110)
[2020-11-19 08:21] LABS: Glucose Point of Care 113 mg/dL (70-110)
[2020-11-19] MEDS: budesonide 0.5 mg/2 mL Neb INHALATION ×2 (08:35→20:40)
[2020-11-19] MEDS: ferrous gluconate 324 mg Tablet PO ×2 (08:59→17:56)
[2020-11-19] MEDS: aspirin 81 mg EC Tablet PO (09:00)
[2020-11-19] MEDS: bisacodyl 5 mg Tablet 10 MG PO (09:01)
[2020-11-19] MEDS: folic acid 1 mg Tablet PO ×2 (09:01→17:56)
[2020-11-19] MEDS: clopidogrel 75 mg Tablet PO (09:01)
[2020-11-19] MEDS: levothyroxine 200 mcg Tablet PO (09:02)
[2020-11-19] MEDS: levothyroxine 25 mcg Tablet PO (09:02)
[2020-11-19] MEDS: pantoprazole DR 40 mg Tablet PO (09:03)
[2020-11-19] MEDS: multivitamin therapeutic Tablet 1 TAB PO (09:03)
[2020-11-19] MEDS: metoprolol tartrate 25 mg Tablet PO ×2 (09:03→11:09)
[2020-11-19] MEDS: thiamine 100 mg Tablet PO (09:03)
[2020-11-19] MEDS: phenytoin ER 100 mg Capsule 200 MG PO ×2 (09:05→17:56)
[2020-11-19] MEDS: acetaminophen 325 mg Tablet 650 MG PO (09:10)
--- NOTE | 2020-11-19 10:31 | PM.PN ---
Subjective Subjective: Interval history: No acute events overnight. Patient lying comfortably in bed during examination. Denies any nausea, vomiting, headache. States her appetite is not good and does not want to eat much. Blood sugars overnight have been better. She is currently on 2 L saturating 84%. Has remained afebrile. Heart rates running between 95 to 100s. Vitals/I&O/Wt Last Vital Signs Temp 98.7 F 11/19/20 09:45 Pulse 112 H 11/19/20 09:45 Resp 14 11/19/20 09:45 BP 123/76 11/19/20 09:45 Pulse Ox 97 11/19/20 09:30 11/18/20 11/19/20 11/19/20 22:59 06:59 14:59 Intake Total 1031.5 / 1271.5 400.65 / 1672.15 Output Total 850 / 850 125 / 975 Balance 181.5 / 421.5 275.65 / 697.15 Weight last 48 hrs Weight 166.468 kg Weight 157.306 kg Physical Exam Narrative: EXAM NARRATIVE: General: No acute distress, awake alert x3, on 2 L HEENT: PERRLA, pupils bilaterally equal and reactive Chest: Normal vesicular breath sounds, no added sounds, equal good air entry bilaterally CVS: S1-S2 regular, no murmurs, no tachycardia, no gallops, no rubs Abdomen: Soft, morbidly obese, large pannus, tenderness diffuse all over the abdomen more so in the right lower quadrant, difficult to assess for organomegaly because of pannus, bowel sounds sluggish Neuro: Drowsy, AO x3 on arousal, difficult to assess power right now Urinary Catheter Management^: Acevedo: Cath Placed During This Visit: yes Reason for Continuing Indwelling Catheter: Accurate Measurement of Urinary Output in Critically Ill Patients Urinary Catheter Date of Insertion: 11/13/20 Urinary Catheter Time of Insertion: 14:58 Data : 11/19/20 04:29 11/19/20 04:29 Micro: Microbiology 11/17/20 20:03 Blood Culture - Preliminary Blood NEGATIVE TO DATE 11/17/20 20:00 Blood Culture - Preliminary Blood NEGATIVE TO DATE 11/13/20 16:24 Blood Culture - Final Blood NO GROWTH AFTER 5 DAYS 11/13/20 16:40 Blood Culture - Preliminary Blood Coagulase negativ staphylococc 11/13/20 10:45 Stool Lactoferrin - Final Stool Enteric Pathogens (PCR) - Preliminary C.difficile Toxin B Gene (PCR) - Final Laboratory Results WBC 15.0 10^3/uL (4.0-10.0) H 11/19/20 04:29 RBC 2.75 10^6/uL (4.1-5.3) L 11/19/20 04:29 Hgb 8.8 g/dL (11.5-15.3) L 11/19/20 04:29 Hct 29.6 % (37.0-47.0) L 11/19/20 04:29 MCV 107.6 fL (81-99) H 11/19/20 04:29 MCH 32.0 pg (28.0-34.0) 11/19/20 04:29 MCHC 29.7 g/dL (30.0-36.0) L 11/19/20 04:29 RDW 14.1 % (12.1-15.1) 11/19/20 04:29 Plt Count 211 10^3/cmm (130-400) 11/19/20 04:29 MPV 10.7 fL (7.4-10.4) H 11/19/20 04:29 Neut % (Auto) 68.0 % 11/19/20 04:29 Lymph % (Auto) 11.8 % 11/19/20 04:29 [place] % (Auto) 10.6 % 11/19/20 04:29 Eos % (Auto) 1.7 % 11/19/20 04:29 Baso % (Auto) 0.9 % 11/19/20 04:29 Neut # (Auto) 10.23 10^3/uL (1.8-7.7) H 11/19/20 04:29 Lymph # (Auto) 1.8 10^3/uL (0.8-4.8) 11/19/20 04:29 [place] # (Auto) 1.6 10^3/uL (0.2-0.9) H 11/19/20 04:29 Eos # (Auto) 0.3 10^3/uL (0.0-0.8) 11/19/20 04:29 Baso # (Auto) 0.1 10^3/uL (0.0-0.1) 11/19/20 04:29 Nucleated RBC % (auto) 0.1 % 11/19/20 04:29 Total Counted 100 (0-100) 11/15/20 06:01 Atypical Lymphs % 0.0 % (0-5) 11/15/20 06:01 Absolute Neutrophils 19.2 10^3/cmm (1.4-6.5) H 11/15/20 06:01 Segmented Neutrophils 74 % 11/15/20 06:01 Abs Segm Neuts (Man) 14.9 10/cmm (1.6-7.1) H 11/15/20 06:01 Band Neutrophils 21.0 % 11/15/20 06:01 Abs Band Neuts (Man) 4.2 10^3/cmm (0.0-1.2) H 11/15/20 06:01 Absolute Lymphocytes 0.8 10^3/cmm (1.2-3.4) L 11/15/20 06:01 Lymphocytes (Manual) 4 % 11/15/20 06:01 Monocytes (Manual) 0.0 % 11/15/20 06:01 Absolute Monocytes 0.0 10^3/cmm (0.1-0.6) L 11/15/20 06:01 Eosinophils (Manual) 1 % 11/15/20 06:01 Absolute Eosinophils 0.2 10^3/cmm (0.0-0.7) 11/15/20 06:01 Basophils (Manual) 0.0 % 11/15/20 06:01 Absolute Basophils 0.0 10^3/cmm (0.0-0.2) 11/15/20 06:01 Nucleated RBCs # 0.0 /100WBC 11/19/20 04:29 Platelet Estimate Normal (Normal) 11/15/20 06:01 Macrocytosis 1+ H 11/15/20 06:01 APTT 45.3 SECONDS (23.9-36.7) H D 11/18/20 16:29 D-Dimer 2.16 ug/mIFEU (0-0.59) H 11/14/20 23:52 Sodium 133 mmol/L (136-145) L 11/19/20 04:29 Potassium 4.1 mmol/L (3.5-5.1) 11/19/20 04:29 Chloride 98 mmol/L (98-107) 11/19/20 04:29 Carbon Dioxide 24 mmol/L (22-29) 11/19/20 04:29 Anion Gap 15.1 (5-19) 11/19/20 04:29 BUN 20 mg/dL (8-23) 11/19/20 04:29 Creatinine 1.9 mg/dL (0.5-0.9) H 11/19/20 04:29 GFR Calculation Not Reportable 11/19/20 04:29 Glucose 111 mg/dL (65-115) 11/19/20 04:29 POC Glucose 113 mg/dL (70-110) H 11/19/20 08:18 Estimat Average Glucose 148 11/14/20 05:43 Hemoglobin A1c 6.8 % (4.0-6.0) H 11/14/20 05:43 Calculated Osmolality 279 mOsm/kg (285-295) L 11/19/20 04:29 Lactic Acid 1.6 mmol/L (0.5-2.2) 11/14/20 12:15 Lactic Acid (Sepsis) 3.1 mmol/L (0.5-2.2) H 11/13/20 19:30 Lactate Cancelled 11/13/20 19:30 Calcium 7.6 mg/dL (8.5-10.5) L 11/19/20 04:29 Phosphorus 4.5 mg/dL (2.5-4.5) 11/17/20 02:57 Magnesium 2.0 mg/dL (1.7-2.3) 11/14/20 05:43 Iron 34 ug/dL (37-145) L 11/17/20 02:57 TIBC 110 mcg/dl 11/17/20 02:57 % Saturation 30.9 % (20-50) 11/17/20 02:57 Unsat Iron Binding 76 ug/dL (112-347) L 11/17/20 02:57 Ferritin 1262 ng/mL (15-150) H 11/17/20 02:57 Total Bilirubin 0.3 mg/dL (0.15-1.2) 11/19/20 04:29 AST 26 U/L (0-32) 11/19/20 04:29 ALT 7 U/L (0-33) 11/19/20 04:29 Alkaline Phosphatase 137 IU/L (35-105) H 11/19/20 04:29 Creatine Kinase 148 U/L (26-192) 11/15/20 06:01 Troponin T Gen 5 ng/L 1202 ng/L (0-10) H* 11/15/20 16:22 Troponin T Baseline 1184 ng/L (0-10) H* 11/14/20 23:52 Troponin T 120 Minute 1348 ng/L (0-10) H 11/15/20 01:49 Delta Troponin T 164 ABS# (0-10) H* 11/15/20 01:49 Troponin T Hi Sens 6Hr 1276 ng/L (0-10) H 11/15/20 06:01 Troponin T Hi Sens 6Hr Delta 92 ng/L (0-12) H* 11/15/20 06:01 NT-Pro-B Natriuret Pep 4932 pg/mL (0-450) H 11/13/20 10:56 Total Protein 5.6 g/dL (6.6-8.7) L 11/19/20 04:29 Albumin 1.8 g/dL (3.5-5.2) L 11/19/20 04:29 Globulin 3.8 g/dL (1.3-4.6) 11/19/20 04:29 Triglycerides 144 mg/dL (0-150) 11/16/20 05:53 Cholesterol 107 mg/dL (0-200) 11/16/20 05:53 LDL Cholesterol, Calc 45 mg/dL (50-129) L 11/16/20 05:53 Total VLDL Cholesterol 29 mg/dL (0-30) 11/16/20 05:53 HDL Cholesterol 33 mg/dL (60-100) L 11/16/20 05:53 Cholesterol/HDL Ratio 3.24 mg/dL (0.0-4.40) 11/16/20 05:53 Lipase 23 U/L (13-60) 11/13/20 10:56 Vitamin B12 370 pg/mL (232-1245) 11/14/20 05:43 Folate 19.8 ng/mL (4.8-37.3) 11/14/20 05:43 Procalcitonin 2.02 ng/mL (0-0.5) H 11/13/20 10:56 TSH 0.43 uIU/mL (0.27-4.20) 11/13/20 10:56 Random Cortisol 23.66 ug/dL (2.47-19.5) H 11/19/20 04:29 Urine Color Yellow (Yellow) 11/13/20 14:21 Urine Appearance Clear (CLEAR) 11/13/20 14:21 Urine pH 6.5 (5-7) 11/13/20 14:21 Ur Specific [place] 1.010 (1.005-1.030) 11/13/20 14:21 Urine Protein Trace (Negative) 11/13/20 14:21 Urine Glucose (UA) 4+ (Normal) H 11/13/20 14:21 Urine Ketones Negative (Negative) 11/13/20 14: Urine Blood Neg (Negative) 11/13/20 14: Urine Nitrate Negative (Negative) 11/13/20 14:21 Urine Bilirubin Neg (Negative) 11/13/20 14:21 Urine Urobilinogen Norm mg/dL (Negative) 11/13/20 14:21 Ur Leukocyte Esterase Negative (Negative) 11/13/20 14:21 Urine RBC None /hpf (0-2) 11/13/20 14:21 Urine WBC None /hpf (0-5) 11/13/20 14:21 Ur Squamous Epith Cells 0-4 /hpf (0-5) H 11/13/20 14:21 Amorphous Sediment Not Reportable 11/13/20 14:21 Urine Bacteria 1+ /hpf (NONE) H 11/13/20 14:21 Ur Random Sodium 82 mmol/L 11/13/20 14:21 Ur Random Potassium 34 mmol/L 11/13/20 14:21 Ur Random Chloride 62 mmol/L 11/13/20 14:21 Urine Creatinine 4 mg/dL (28-217) L 11/13/20 14:21 Vancomycin Trough 14.7 ug/mL (10-15) 11/17/20 20:00 Random Vancomycin 13.3 ug/mL (20.0-40.0) L 11/15/20 06:01 Random Vancomycin Cancelled 11/15/20 06:01 Nasal/Oral COVID-19 PCR Not detected 11/13/20 17:00 Hep Bs Antigen Non-reactive (Nonreactive) 11/16/20 05:53 Hep Bs Antibody 5.8 (11.5-1000) L 11/16/20 05:53 Hepatitis C Antibody Non-reactive (Nonreactive) 11/16/20 05:53 Influenza Type A Ag Negative (Negative) 11/13/20 17:00 Influenza Type B Ag Negative (Negative) 11/13/20 17:00 SARS-CoV-2 Ag (Rapid) Negative (Negative) 11/13/20 17:[address] 11/13/20 17:24 IMPRESSION: 1. Mild cardiomegaly. 2. Small right pleural effusion. Tiny left pleural effusion. 3. Bilateral pulmonary opacities which may be secondary to pneumonia or atelectasis. Radiation Dose CTDIVOL = (mGy): DLP = 1273.51 (mGy-cm) Chest X-Ray 11/15/20 15:36 Impression: Insertion of right internal jugular venous catheter. Abdomen/Pelvis CT 11/16/20 08:59 IMPRESSION: 1. No significant changes. Residual right colonic mild severity wall thickening and pericolonic fatty induration changes. 2. Retained contrast in the renal parenchyma. Recommend correlation for contrast induced nephropathy. COMMENTS: Consistent with the [employer]'s Incidental Findings Committee white paper (J Am Donny Radiol 2018): Any incidental renal lesion less than 1 cm or classified as too small to characterize, or any incidental cystic renal lesion characterized as simple-appearing, is likely benign. No follow-up imaging is recommended for these lesions per consensus recommendations based on imaging criteria. Radiation Dose CTDIVOL = (mGy): DLP = 2721.03 (mGy-cm) Abdomen X-Ray 11/16/20 10:30 Impression: 1. Dilated small bowel loops with air in the colon. 2. Possible early small bowel obstruction or severe generalized ileus. A&P Assessment and plan (1) Sepsis: Status: Acute (2) Colitis: Status: Acute (3) Acute non-ST elevation myocardial infarction (NSTEMI): Status: Acute (4) Renal insufficiency: Status: Acute (5) Status post insertion of drug-eluting stent into left anterior descending (LAD) artery: Status: Acute (6) 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: Status: Acute (7) Morbid obesity: Status: Acute (8) Diabetes: Status: Acute (9) CAD (coronary artery disease): Status: Acute (10) Sarqk-fk-nikbsea kidney injury: Status: Acute Qualifiers: Acute renal failure type: unspecified Chronic kidney disease stage: stage 4 (severe) Qualified Code(s): N17.9 - Acute kidney failure, unspecified; N18.4 - Chronic kidney disease, stage 4 (severe) (11) Afib: Status: Acute Additional A&P Information 74-year-old female with past medical history of morbid obesity, CAD, peripheral vascular disease presented to the ER via EMS with possible complaint of abdominal pain and difficulty in breathing found to be saturating in 80s requiring 6 L oxygen saturation found to have diffuse colitis on CT abdomen pelvis and possible pneumonia. Sepsis: Criteria met with leukocytosis, borderline blood pressures on admission, tachypnea. Sepsis secondary to colitis and community-acquired pneumonia: Resolving. Stool studies consistent with Shiga toxin. Keep mean arterial pressures around 65. Blood cultures from admission now growing 1 out of 4 coag negative staph which is most likely contaminant. Repeat blood culture sent yesterday. Urine culture sputum culture remain negative to date. C. difficile negative. Continue with imipenem for now. MRSA negative. Day 6/ today. Repeat CT appreciated. Continue with aggressive bowel regimen. Keep saturation over 90 %. Wean off oxygen supplementation accordingly. DuoNebs every 6 hour, budesonide twice daily NSTEMI: Post stenting to LAD. Continue with aspirin, Plavix, statin. Metoprolol 50 mg twice daily. Will uptitrate as per the heart rate and blood pressure. Echocardiogram results appreciated. EF 40%, diffuse hypokinesia of septum, anteroseptal, inferior wall and LV apex, mildly increased left atrial size, mild MR. Atrial fibrillation: Rate better controlled now. Continue metoprolol as above. If heart rate still not under control will start on oral amiodarone. Continue with Eliquis 5 mg twice daily. Hypertension: Goal blood pressure less than 140/90 mmHg. Blood pressure soft for now. We will continue to hold off on antihypertensives and reintroduce medication as able TIFFANY on chronic kidney disease: Baseline creatinine seems to be around 2. Continues to have oliguria though improving. Creatinine at baseline. Electrolytes appropriate. Oliguria improving. Nephrology recs appreciated. Diabetes mellitus: Continues to remain high for now. Stop Lantus. Continue with D5 half NS at 30 cc/h for now. Due to recurrent hypoglycemia check cortisol levels which are appropriately elevated. Sliding scale at low-dose protocol. Morbid obesity CAD CODE STATUS: On discussion with CODE STATUS with patient she would want to be full code for now. Patient states her DPOA will be her son who she lives with. She states her son's name is Jimi Lee. Bishop will also help. DVT prophylaxis as well. Regular cardiac diet. PT/OT evaluation today. Attestations Medical Necessity Statement*: Requires further hospitalization for management of sepsis, NSTEMI, TIFFANY requiring dialysis, atrial fibrillation with rapid ventricular response Critical Care Time: Critical Care Time (min): 80 Coding Level of Care Code Acute Asset Recovery Specialist for [facility] Fwd Diagnoses Sepsis A41.9 Colitis K52.9 Acute non-ST elevation myocardial infarction (NSTEMI) I21.4 Renal insufficiency N28.9 Status post insertion of drug-eluting stent into left anterior descending (LAD) artery Z95.5 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 B96.23 Morbid obesity E66.01 Diabetes E11.9 CAD (coronary artery disease) I25.10 [id number] kidney injury N17.9; N18.4 Acute renal failure type: unspecified Chronic kidney disease stage: stage 4 (severe) Afib I48.91
[2020-11-19 10:43] LABS: Glucose Point of Care 120 mg/dL (70-110)
[2020-11-19] MEDS: gabapentin 100 mg Capsule 200 MG PO ×3 (12:35→20:22)
[2020-11-19 12:54] LABS: Glucose Point of Care 116 mg/dL (70-110)
--- NOTE | 2020-11-19 14:57 | PC.NURSE ---
Shift summary: 1500 - Uneventful shift, patient's blood sugar was within normal limits throughout morning and afternoon. Repositioned patient with assistance from othe nurses, PT, and the michael lift. Pt does have pain associated with the sheath site on the right groin stomach pain, can be relieved by repositioning. Nurse floated to the ER, gave report to Anahy garcia RN. Pt denies any complaints or needs at this time.
[2020-11-19 14:58] LABS: Glucose Point of Care 116 mg/dL (70-110)
--- NOTE | 2020-11-19 16:09 | P.PN_ITS ---
Subjective Subjective: Interval history: s/p 2 LUIS EDUARDO to LAD by Dr. Sanches, No events overnight Medications: Reviewed: Yes Vitals/I&O/Wt Last Vital Signs Temp 98.7 F 11/19/20 09:45 Pulse 87 11/19/20 14:36 Resp 16 11/19/20 14:33 BP 105/62 11/19/20 13:29 Pulse Ox 97 11/19/20 14:33 11/19/20 11/19/20 11/19/20 06:59 14:59 22:59 Intake Total 400.65 / 1672.15 100 / 100 Output Total 125 / 975 Balance 275.65 / 697.15 100 / 100 Weight last 48 hrs Weight 367 lb Weight 346 lb 12.8 oz Physical Exam Narrative: EXAM NARRATIVE: Gen: NAD, morbidly obese HEENT: EOMI RS: CTAB/L, No wheezing, rales CVS: s1, S2 irregular, No murmur, rub or gallop CVS: alert and oriented Ext: chronic changes, edema+ Urinary Catheter Management^: Acevedo: Cath Placed During This Visit: yes Reason for Continuing Indwelling Catheter: Accurate Measurement of Urinary Output in Critically Ill Patients Urinary Catheter Date of Insertion: 11/13/20 Urinary Catheter Time of Insertion: 14:58 Data : 11/20/20 03:28 11/20/20 03:28 Micro: Microbiology 11/13/20 10:45 Stool Lactoferrin - Final Stool Enteric Pathogens (PCR) - Preliminary Parasite Antigen Panel - Final C.difficile Toxin B Gene (PCR) - Final 11/17/20 20:03 Blood Culture - Preliminary Blood NEGATIVE TO DATE 11/17/20 20:00 Blood Culture - Preliminary Blood NEGATIVE TO DATE 11/13/20 16:24 Blood Culture - Final Blood NO GROWTH AFTER 5 DAYS 11/13/20 16:40 Blood Culture - Preliminary Blood Coagulase negativ staphylococc A&P Assessment and plan (1) Acute non-ST elevation myocardial infarction (NSTEMI): s/p LAD stents. -continue DAPT, metoprolol and statin. Status: Acute (2) Afib: currently on heparin and metoprolol. -will need to renally dose eliquis on transition and assess her bleeding risk given triple therapy. Status: Acute Qualifiers: Atrial fibrillation type: unspecified Qualified Code(s): I48.91 - Unspecified atrial fibrillation (3) Ijjdg-nx-xfzsnum kidney injury: -currently on dialysis Status: Acute Qualifiers: Acute renal failure type: unspecified Chronic kidney disease stage: stage 4 (severe) Qualified Code(s): N17.9 - Acute kidney failure, unspecified; N18.4 - Chronic kidney disease, stage 4 (severe) (4) PVD (peripheral vascular disease): Status: Acute (5) Community acquired pneumonia: Status: Acute Qualifiers: Laterality: left Lung location: lower lobe of lung Qualified Code(s): J18.9 - Pneumonia, unspecified organism (6) Colitis: Management as per the hospitalist service. Status: Acute (7) Morbid obesity: Status: Acute Additional A&P Information Hyponatremia- Mild Essential benign hypertension Type 2 diabetes Dyslipidemia History of seizure disorder Chronic venous stasis History of DVT-off p.o. anticoagulation Chronic anemia Attestations Medical Necessity Statement*: Needs hospital stay for NSTEMI, A fib and ARF Time Spent in Patient Care: 16 - 35 minutes (>than 50% of time spent in counselling and/or direct pt care on unit) . Coding Level of Care Code Acute [employer]et Parking Attendant for [facility] Fwd Diagnoses Acute non-ST elevation myocardial infarction (NSTEMI) I21.4 Afib I48.91 Atrial fibrillation type: unspecified Hrgog-re-zzeuwne kidney injury N17.9; N18.4 Acute renal failure type: unspecified Chronic kidney disease stage: stage 4 (severe) PVD (peripheral vascular disease) I73.9 Community acquired pneumonia J18.9 Laterality: left Lung location: lower lobe of lung Colitis K52.9 Morbid obesity E66.01
[2020-11-19 16:30] LABS: Glucose Point of Care 127 mg/dL (70-110)
--- NOTE | 2020-11-19 17:48 | PM.PN ---
Subjective Subjective: Interval history: I am seeing her in follow up for her renal failure. Got dialysis yesterday as pt had cradiac cath. No new issues overnight Medications: Reviewed: Yes Vitals/I&O/Wt Last Vital Signs Temp 98.7 F 11/19/20 09:45 Pulse 102 H 11/19/20 16:00 Resp 16 11/19/20 16:00 BP 120/65 11/19/20 16:00 Pulse Ox 93 11/19/20 16:00 11/19/20 11/19/20 11/19/20 06:59 14:59 22:59 Intake Total 400.65 / 1672.15 100 / 100 Output Total 125 / 975 Balance 275.65 / 697.15 100 / 100 Weight last 48 hrs Weight 166.468 kg Weight 157.306 kg Physical Exam Const: COMMON NORMALS: no acute distress and patient oriented x3 GENERAL APPEARANCE: cooperative ORIENTATION/CONSCIOUSNESS: Yes awake Resp: COMMON NORMALS: clear to auscultation bilaterally AUSCULTATION: clear to auscultation bilaterally Cardio: COMMON NORMALS: S1 normal heart sound present and S2 normal heart sound present HEART SOUNDS: S1 normal heart sound present and S2 normal heart sound present GI: AUSCULTATION: Yes normoactive bowel sounds Extremity: GENERAL: Yes edema Neuro: COMMON NORMALS: patient oriented x3 Skin: COMMON NORMALS: no rashes or lesions noted GENERAL SKIN EXAM: no rashes or lesions noted Urinary Catheter Management^: Acevedo: Cath Placed During This Visit: yes Reason for Continuing Indwelling Catheter: Accurate Measurement of Urinary Output in Critically Ill Patients Urinary Catheter Date of Insertion: 11/13/20 Urinary Catheter Time of Insertion: 14:58 Data : 11/19/20 04:29 11/19/20 04:29 Micro: Microbiology 11/13/20 16:40 Blood Culture - Final Blood Coagulase negativ staphylococc 11/13/20 10:45 Stool Lactoferrin - Final Stool Enteric Pathogens (PCR) - Preliminary Parasite Antigen Panel - Final C.difficile Toxin B Gene (PCR) - Final 11/17/20 20:03 Blood Culture - Preliminary Blood NEGATIVE TO DATE 11/17/20 20:00 Blood Culture - Preliminary Blood NEGATIVE TO DATE 11/13/20 16:24 Blood Culture - Final Blood NO GROWTH AFTER 5 DAYS A&P Assessment and plan (1) TIFFANY (acute kidney injury): Got dialysis yesterday as pt had cardiac cath. Will monitor kidney function closely for any dialysis requirement. Avoid new nephrotoxins Status: Acute (2) HTN (hypertension): BP under control Status: Acute (3) Anemia: Follow hb Status: Acute (4) Hyponatremia: Will monitor sodium levels Status: Acute Attestations Medical Necessity Statement*: TIFFANY Coding Level of Care Code Acute Inserter Promotional Item for [facility] Fwd Diagnoses TIFFANY (acute kidney injury) N17.9 HTN (hypertension) I10 Anemia D64.9 Hyponatremia E87.1
[2020-11-19 18:27] LABS: Glucose Point of Care 137 mg/dL (70-110)
[2020-11-19 20:18] LABS: Glucose Point of Care 174 mg/dL (70-110)
[2020-11-19] MEDS: apixaban 5 mg Tablet PO (20:21)
[2020-11-19] MEDS: atorvastatin 40 mg Tablet 80 MG PO (20:21)
[2020-11-19] MEDS: metoprolol tartrate 50 mg Tablet PO (20:24)
[2020-11-20] VITALS (42 sets, daily range): BP systolic 90–160; BP diastolic 57–139; PULSE 85–128; RESP 12–34; TEMP 36.4–36.6; O2SAT 77–95
[2020-11-20] MEDS: ipratropium-albuterol 3 mL Neb INHALATION ×4 (03:03→21:28)
[2020-11-20 03:40] LABS: Basophils # 0.2 10^3/uL (0.0-0.1); Eosinophils # 0.4 10^3/uL (0.0-0.8); Eosinophils % 2.6 %; Hematocrit 30.9 % (37.0-47.0); Hemoglobin 9.1 g/dL (11.5-15.3); Lymphocytes % 12.7 %; Mean Corpuscular HGB Conc 29.4 g/dL (30.0-36.0); Mean Corpuscular Hemoglobin 31.9 pg (28.0-34.0); Mean Corpuscular Volume 108.4 fL (81-99); Monocytes # 1.5 10^3/uL (0.2-0.9); Monocytes % 9.4 %; Neutrophils # 10.32 10^3/uL (1.8-7.7); Neutrophils % 65.4 %; Nucleated Red Blood Cells % 0.3 %; Platelet Count 250 10^3/cmm (130-400); Red Blood Count 2.85 10^6/uL (4.1-5.3); Red Cell Distribution Width 14.4 % (12.1-15.1); White Blood Count 15.8 10^3/uL (4.0-10.0)
[2020-11-20] MEDS: dextrose 5%-sod chloride 0.45% 1,000 ML 30 ML IV (03:47)
[2020-11-20 04:08] LABS: Alanine Aminotransferase 7 U/L (0-33); Alkaline Phosphatase 157 IU/L (35-105); Blood Urea Nitrogen 28 mg/dL (8-23); Calcium 7.5 mg/dL (8.5-10.5); Carbon Dioxide 22 mmol/L (22-29); Chloride 96 mmol/L (98-107); Globulin 3.8 g/dL (1.3-4.6); Glucose 118 mg/dL (65-115); Osmolality Calculated 281 mOsm/kg (285-295); Sodium 132 mmol/L (136-145); Total Bilirubin 0.3 mg/dL (0.15-1.2); Total Protein 5.8 g/dL (6.6-8.7)
[2020-11-20 04:12] LABS: Anion Gap 18.5 (5-19); Aspartate Amino Transferase 31 U/L (0-32); Potassium 4.5 mmol/L (3.5-5.1)
[2020-11-20 04:34] LABS: Slide Review Slide Review Perform
[2020-11-20 06:24] LABS: Glucose Point of Care 142 mg/dL (70-110)
[2020-11-20 07:57] LABS: Glucose Point of Care 140 mg/dL (70-110)
--- NOTE | 2020-11-20 08:34 | PM.PN ---
Subjective Subjective: Interval history: Denies chest pain. No abdominal pain. Appetite is not the best. Intermittent belching. Overall feels better but cannot eat much as she is afraid she will feel worse. Yesterday subdued up with physical therapy. At home walks with a walker. States her goal is to get up to the chair today. Would consider going to [facility] facility for rehabilitation prior to return home. Vitals/I&O/Wt Last Vital Signs Temp 98.7 F 11/19/20 09:45 Pulse 101 H 11/20/20 06:00 Resp 13 11/20/20 04:30 BP 126/101 11/20/20 04:30 Pulse Ox 92 11/20/20 04:30 11/19/20 11/20/20 11/20/20 22:59 06:59 14:59 Intake Total 350 / 450 1072.5 / 1522.5 Output Total 100 / 100 100 / 200 Balance 250 / 350 972.5 / 1322.5 Weight last 48 hrs Weight 166.922 kg Weight 166.468 kg Physical Exam Const: COMMON NORMALS: no acute distress, patient oriented x3 and alert GENERAL APPEARANCE: cooperative NUTRITIONAL APPEARANCE: obese morbidly obese ORIENTATION/CONSCIOUSNESS: Yes awake HENMT: COMMON NORMALS: oropharynx normal Neck/C-Spine: COMMON NORMALS: no JVD OTHER: Temp HD catheter right neck Resp: COMMON NORMALS: normal respiratory effort and clear to auscultation bilaterally AUSCULTATION: clear to auscultation bilaterally Cardio: COMMON NORMALS: no JVD, S1 normal heart sound present, S2 normal heart sound present and No murmurs present (Cardio) RATE: tachycardic RHYTHM: abnormal rhythm irregularly irregular HEART SOUNDS: S1 normal heart sound present and S2 normal heart sound present GI: COMMON NORMALS: Soft to palpation and non-tender AUSCULTATION: Yes normoactive bowel sounds PALPATION: Yes Soft to palpation Extremity: COMMON NORMALS: no joint enlargement and no pedal edema OTHER: Chronic stasis changes Neuro: COMMON NORMALS: patient oriented x3 and moves all extremities SENSORIUM/ORIENTATION: Yes alert Skin: COMMON NORMALS: no rashes or lesions noted GENERAL SKIN EXAM: no rashes or lesions noted Urinary Catheter Management^: Acevedo: Cath Placed During This Visit: yes Reason for Continuing Indwelling Catheter: Accurate Measurement of Urinary Output in Critically Ill Patients Urinary Catheter Date of Insertion: 11/13/20 Urinary Catheter Time of Insertion: 14:58 Data : 11/20/20 03:28 11/20/20 03:28 Micro: Microbiology 11/13/20 16:40 Blood Culture - Final Blood Coagulase negativ staphylococc 11/13/20 10:45 Stool Lactoferrin - Final Stool Enteric Pathogens (PCR) - Preliminary Parasite Antigen Panel - Final C.difficile Toxin B Gene (PCR) - Final A&P Assessment and plan (1) Colitis: Ileus noted on x-ray 11/16, appears to have persistent still as appetite is not good, poor oral intake, occasional nausea, intermittent belching. At home states take stool softeners to help her have daily bowel movements. Has not had 1 for several days. We will adjust bowel regimen. She is having some difficulties with mobilization and not as well. Stood with physical therapy yesterday. Today planning to get into the chair. At home walks with a walker. Continue attempts to mobilize. States she would consider going to [facility] facility after discharge for rehabilitation due to physical deconditioning. Status: Acute (2) Rrixg-ez-uwydcju kidney injury: Continues on hemodialysis support as needed due to TIFFANY on CKD. May need additional dialysis after discharge. Currently temporary catheter in the right IJ. Usually follows with Dr. Hendricks. Status: Acute Qualifiers: Acute renal failure type: unspecified Chronic kidney disease stage: stage 4 (severe) Qualified Code(s): N17.9 - Acute kidney failure, unspecified; N18.4 - Chronic kidney disease, stage 4 (severe) (3) Afib: A. fib with RVR, although heart rates for the most part below 110. Continue metoprolol. Continue to monitor. Continue Eliquis. Monitor heart rates. Consider addition of amiodarone in case not controlled. Status: Acute (4) Sepsis: Continue Primaxin for now as leukocytosis persists. Tachycardia secondary to A. fib with RVR. Afebrile. Overall sepsis appears to be resolving, although slowly. No growth on cultures. Apart from 07/17 coag negative staph from 11/13, although suspected contamination. 11/17 preliminary blood cultures negative. Status: Acute (5) Acute non-ST elevation myocardial infarction (NSTEMI): Status post coronary angiography and stent placement to LAD. Continue aspirin, Plavix, statin, Toprol. Echocardiogram with EF 40%, diffuse hypokinesia of septum, anteroseptal, inferior wall and LV apex. Mild increased LA size, mild MR. Status: Acute (6) Renal insufficiency: Status: Acute (7) Status post insertion of drug-eluting stent into left anterior descending (LAD) artery: Status: Acute (8) 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: Status: Acute (9) Morbid obesity: Status: Acute (10) Diabetes: Continue sliding scale insulin at this time. Long-acting insulin has been held. Status: Acute (11) CAD (coronary artery disease): Status: Acute Additional A&P Information Hypertension: Goal blood pressure less than 140/90 mmHg. Blood pressure soft for now. We will continue to hold off on antihypertensives and reintroduce medication as able Attestations Medical Necessity Statement*: Continue admission for assessment management of ileus following colitis, sepsis, improving sepsis, optimization of control of A. fib with RVR. Disposition planning. 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
[2020-11-20] MEDS: budesonide 0.5 mg/2 mL Neb INHALATION ×2 (08:38→21:28)
--- NOTE | 2020-11-20 08:39 | PM.PN ---
Subjective Subjective: Interval history: Patient is feeling okay.Had cardiac cath on Friday and was found to have functionally significant LAD lesion and underwent LUIS EDUARDO placement. Has not had recurrence of chest pain since then. She is scheduled for another dialysis today. Her kidney function seems to be slowly improving. No fever or chills. No cough. Slowly ambulating with help. Medications: Reviewed: Yes Medication Review Details: Current Medications Al Hydrox/Mg Hydrox/Simethicone (Qmii-Jpo-Hfyqmwqtn-Della 30 Ml Udc) 30 ml PO Q15M PRN PRN Reason: INDIGESTION Albuterol Sulfate (Albuterol 2.5 Mg/0.5 Ml Neb) 2.5 mg INHALATION Q4H.RESPIRATORY PRN PRN Reason: SHORTNESS OF BREATH Albuterol/Ipratropium (Ipratropium-Albuterol 3 Ml Neb) 3 ml INHALATION Q6H.RESPIRATORY [facility] Last Admin: 11/20/20 08:38 Dose: 3 ml Documented by: Alprazolam (Alprazolam 0.25 Mg Tablet) 0.25 mg PO TID PRN PRN Reason: ANXIETY Last Admin: 11/18/20 21:04 Dose: 0.25 mg Documented by: Apixaban (Apixaban 5 Mg Tablet) 5 mg PO BID@0900,2100 [facility] Last Admin: 11/19/20 20:21 Dose: 5 mg Documented by: Aspirin (Aspirin 81 Mg Ec Tablet) 81 mg PO DAILY [facility] Last Admin: 11/19/20 09:00 Dose: 81 mg Documented by: Atorvastatin Calcium (Atorvastatin 40 Mg Tablet) 80 mg PO BEDTIME [facility] Last Admin: 11/19/20 20:21 Dose: 80 mg Documented by: Atropine Sulfate (Atropine 1 Mg/Ml Sdv 1 Ml) 0.5 mg IVP PRN PRN PRN Reason: Symptomatic bradycardia Bisacodyl (Bisacodyl 5 Mg Tablet) 10 mg PO DAILY [facility] Last Admin: 11/19/20 09:01 Dose: 10 mg Documented by: Bisacodyl (Bisacodyl 10 Mg Supp) 10 mg HI DAILY [facility] Budesonide (Budesonide 0.5 Mg/2 Ml Neb) 0.5 mg INHALATION BID [facility] Last Admin: 11/20/20 08:38 Dose: 0.5 mg Documented by: Clopidogrel Bisulfate (Clopidogrel 75 Mg Tablet) 75 mg PO DAILY [facility] Last Admin: 11/19/20 09:01 Dose: 75 mg Documented by: Dextrose (Dextrose 50% Syringe 50 Ml) 50 ml IVP PRN PRN; Protocol PRN Reason: hypoglycemia protocol Last Admin: 11/17/20 18:22 Dose: 50 ml Documented by: Ferrous Gluconate (Ferrous Gluconate 324 Mg Tablet) 324 mg PO BIDWM [facility] Last Admin: 11/19/20 17:56 Dose: 324 mg Documented by: Folic Acid (Folic Acid 1 Mg Tablet) 1 mg PO BID [facility] Last Admin: 11/19/20 17:56 Dose: 1 mg Documented by: Gabapentin (Gabapentin 100 Mg Capsule) 200 mg PO QID [facility] Last Admin: 11/19/20 20:22 Dose: 200 mg Documented by: Glucagon (Glucagon 1 Mg/Ml Inj 1 Ml) 1 mg IM ONCE PRN; Protocol PRN Reason: Adult Acute Hypoglycemia Prot. Dextrose (D5w) 500 mls @ 100 mls/hr IV ONCE PRN; Protocol PRN Reason: Adult Acute Hypoglycemia Prot Sodium Chloride (Sodium Chloride 0.9%) 1,000 mls @ 0 mls/hr IV .Q0M PRN PRN Reason: hypotension or symptomatic Sodium Chloride (Sodium Chloride 0.9%) 1,000 mls @ 0 mls/hr IV .Q0M PRN PRN Reason: hypotension or symptomatic Dextrose/Sodium Chloride (Dextrose 5%-Sod Chloride 0.45%) 1,000 mls @ 30 mls/hr IV .Q24H [facility] Last Admin: 11/20/20 03:47 Dose: 30 mls/hr Documented by: Imipenem/Cilastatin Sodium 500 (mg/ Sodium Chloride) 100 mls @ 200 mls/hr IV Q8H [facility]; Protocol Stop: 11/20/20 23:59 Last Infusion: 11/20/20 03:45 Dose: Infused Documented by: Insulin Aspart (Insulin Aspart 100 Unit/1 Ml) 0 unit SUBCUT WM&BEDTIME [facility]; Protocol Last Admin: 11/19/20 20:22 Dose: 2 unit Documented by: Levothyroxine Sodium (Levothyroxine 25 Mcg Tablet) 25 mcg PO DAILY [facility] Last Admin: 11/19/20 09:02 Dose: 25 mcg Documented by: Levothyroxine Sodium (Levothyroxine 200 Mcg Tablet) 200 mcg PO DAILY [facility] Last Admin: 11/19/20 09:02 Dose: 200 mcg Documented by: Magnesium Hydroxide (Magnesium Hydroxide 30 Ml Udc) 30 ml PO DAILY PRN PRN Reason: CONSTIPATION Metoprolol Tartrate (Metoprolol Tartrate 50 Mg Tablet) 50 mg PO BID@0900,2100 [facility] Last Admin: 11/19/20 20:24 Dose: 50 mg Documented by: Morphine Sulfate (Morphine 4 Mg/Ml Sdv 1 Ml) 2 mg IVP Q8H PRN PRN Reason: SEVERE PAIN Last Admin: 11/19/20 01:11 Dose: 2 mg Documented by: Multivitamins Therapeutic (Multivitamin Therapeutic Tablet) 1 tab PO DAILY [facility] Last Admin: 11/19/20 09:03 Dose: 1 tab Documented by: Naloxone HCl (Naloxone 0.4 Mg/Ml Sdv) 0.1 mg IVP Q2M PRN PRN Reason: RESPIRATORY RATE < 8/MIN Nitroglycerin (Nitroglycerin 0.4 Mg Sublingual Tablet) 0.4 mg SUBLINGUAL Q5M PRN PRN Reason: CHEST PAIN Ondansetron HCl (Ondansetron 2 Mg/Ml Sdv 2 Ml) 4 mg IVP Q6H PRN PRN Reason: NAUSEA AND VOMITING Last Admin: 11/14/20 10:33 Dose: 4 mg Documented by: Pantoprazole Sodium (Pantoprazole Dr 40 Mg Tablet) 40 mg PO DAILY [facility] Last Admin: 11/19/20 09:03 Dose: 40 mg Documented by: Phenytoin (Phenytoin Er 100 Mg Capsule) 200 mg PO BID [facility] Last Admin: 11/19/20 17:56 Dose: 200 mg Documented by: Polyethylene Glycol (Polyethylene Glycol 3350 Pkt 17 Gm) 17 gm PO DAILY [facility] Last Admin: 11/19/20 09:07 Dose: Not Given Documented by: Temazepam (Temazepam 15 Mg Capsule) 15 mg PO BEDTIME PRN PRN Reason: INSOMNIA Thiamine Mononitrate (Thiamine 100 Mg Tablet) 100 mg PO DAILY [facility] Last Admin: 11/19/20 09:03 Dose: 100 mg Documented by: Vitals/I&O/Wt Last Vital Signs Temp 98.7 F 11/19/20 09:45 Pulse 103 H 11/20/20 08:36 Resp 19 H 11/20/20 08:36 BP 126/101 11/20/20 04:30 Pulse Ox 91 11/20/20 08:36 11/19/20 11/20/20 11/20/20 22:59 06:59 14:59 Intake Total 350 / 450 1072.5 / 1522.5 Output Total 100 / 100 100 / 200 Balance 250 / 350 972.5 / 1322.5 Weight last 48 hrs Weight 368 lb Weight 367 lb Physical Exam Narrative: EXAM NARRATIVE: GENERAL: The patient is alert and oriented times three. Not in any acute distress. Morbidly obese HEENT: No significant pallor, icterus or lymphadenopathy. Oral cavity: There are no mucous membrane lesions. NECK: Trachea appears to be central. No masses noted. No JVD or thyromegaly appreciated. No carotid bruit. Right IJ in place RESPIRATORY: Chest is symmetrical. No intercostals muscle retraction or any accessory muscle activation. There is no chest wall tenderness. Breath sounds are heard bilaterally. No rales or rhonchi heard. No evidence of any consolidation. The intensity of the breath sounds are diminished in the bases BREASTS: Deferred. HEART: PMI could not be palpated. No palpable precordial events. S1 and S2 are normal. No S3 or S4 heard. No pericardial rub or any click heard. ABDOMEN: Abdomen is obese. Diffuse tenderness in the periumbilical region . No vessel pulsations or distention. No organomegaly appreciated. No abdominal bruit. Bowel sounds are normally heard. : Deferred. RECTAL: Deferred. LYMPHATIC: No lymphadenopathy noted in the neck or groin. EXTREMITIES: 1+ edema both lower extremities. Features of some chronic venous stasis. MUSCULOSKELETAL: No acute joint deformities or swelling SKIN: There are no significant scars or skin rash noted. NEUROPSYCHIATRIC: The patient is alert and oriented x3. No focal motor deficits Urinary Catheter Management^: Acevedo: Cath Placed During This Visit: yes Reason for Continuing Indwelling Catheter: Accurate Measurement of Urinary Output in Critically Ill Patients Urinary Catheter Date of Insertion: 11/13/20 Urinary Catheter Time of Insertion: 14:58 Data : 11/20/20 03:28 11/20/20 03:28 Micro: Microbiology 11/13/20 16:40 Blood Culture - Final Blood Coagulase negativ staphylococc 11/13/20 10:45 Stool Lactoferrin - Final Stool Enteric Pathogens (PCR) - Preliminary Parasite Antigen Panel - Final C.difficile Toxin B Gene (PCR) - Final A&P Assessment and plan (1) Acute non-ST elevation myocardial infarction (NSTEMI): Patient status post cardiac catheterization followed by PCI of the LAD. Currently seems to be stable. Denies any chest pain. May continue on the Plavix and the Eliquis. In view of the high bleeding risk, chronic kidney disease and anemia, I may discontinue the aspirin. Dr. Rivas is agreeable with this. Medications as it is. Status: Acute (2) Atrial fibrillation with rapid ventricular response: The heart rate is slowly getting under control. We will try to optimize AV gualberto blocking agents. Status: Acute (3) Erdlt-aa-bynsdnu kidney injury: Scheduled for hemodialysis today. Status: Acute Qualifiers: Acute renal failure type: unspecified Chronic kidney disease stage: stage 4 (severe) Qualified Code(s): N17.9 - Acute kidney failure, unspecified; N18.4 - Chronic kidney disease, stage 4 (severe) (4) PVD (peripheral vascular disease): Currently the patient has no specific symptoms pertaining to the PVD. May continue on the current medications. Status: Acute (5) Community acquired pneumonia: Patient is on IV antibiotics. Remaining afebrile. White cell count is coming down. Status: Acute Qualifiers: Laterality: left Lung location: lower lobe of lung Qualified Code(s): J18.9 - Pneumonia, unspecified organism (6) Colitis: Management as per the hospitalist service. Status: Acute (7) Morbid obesity: Status: Acute Additional A&P Information Her other problems are Essential benign hypertension, currently normotensive Type 2 diabetes Dyslipidemia History of seizure disorder Chronic venous stasis History of DVT Chronic anemia Patient clinical progress, further recommendations will be made Attestations Medical Necessity Statement*: Disposition as per the primary Coding Level of Care Code Acute Photo Colorer for [facility] Fwd Diagnoses Acute non-ST elevation myocardial infarction (NSTEMI) I21.4 Atrial fibrillation with rapid ventricular response I48.91 Sxzot-av-dxdzidc kidney injury N17.9; N18.4 Acute renal failure type: unspecified Chronic kidney disease stage: stage 4 (severe) PVD (peripheral vascular disease) I73.9 Community acquired pneumonia J18.9 Laterality: left Lung location: lower lobe of lung Colitis K52.9 Morbid obesity E66.01
[2020-11-20] MEDS: aspirin 81 mg EC Tablet PO (09:21)
[2020-11-20] MEDS: polyethylene glycol 3350 Pkt 17 gm PO (09:21)
[2020-11-20] MEDS: phenytoin ER 100 mg Capsule 200 MG PO ×2 (09:21→17:34)
[2020-11-20] MEDS: pantoprazole DR 40 mg Tablet PO (09:22)
[2020-11-20] MEDS: levothyroxine 200 mcg Tablet PO (09:22)
[2020-11-20] MEDS: gabapentin 100 mg Capsule 200 MG PO ×4 (09:22→21:42)
[2020-11-20] MEDS: clopidogrel 75 mg Tablet PO (09:22)
[2020-11-20] MEDS: multivitamin therapeutic Tablet 1 TAB PO (09:22)
[2020-11-20] MEDS: folic acid 1 mg Tablet PO ×2 (09:22→17:34)
[2020-11-20] MEDS: bisacodyl 5 mg Tablet 10 MG PO (09:22)
[2020-11-20] MEDS: metoprolol tartrate 50 mg Tablet PO ×2 (09:22→21:55)
[2020-11-20] MEDS: levothyroxine 25 mcg Tablet PO (09:22)
[2020-11-20] MEDS: thiamine 100 mg Tablet PO (09:22)
[2020-11-20] MEDS: ferrous gluconate 324 mg Tablet PO ×2 (09:23→17:34)
[2020-11-20] MEDS: apixaban 5 mg Tablet PO (09:26)
[2020-11-20 11:30] LABS: Glucose Point of Care 159 mg/dL (70-110)
--- NOTE | 2020-11-20 11:31 | PC.NURSE ---
Patient requested to receive suppository when she gets back in bed later this afternoon. Will hold medication until requested
--- NOTE | 2020-11-20 11:34 | PC.OT ---
OT note: Attempted OT evaluation, pt declined at this time as she reported she did not feel well. Will attempt again later as able.
[2020-11-20] MEDS: bisacodyl 10 mg Supp PR (13:47)
--- NOTE | 2020-11-20 15:48 | PC.SOCIAL ---
*IMM UPDATE* Gave patient IMM update, provided her copy of pg 2. Verbalized understanding. 11/20/20 @ 1021 Initialed,dated, timed and placed in chart.
--- NOTE | 2020-11-20 16:42 | P.PN_ITS ---
Subjective Subjective: Interval history: back pain from lying in bed; otherwise no complaints Medications: Reviewed: Yes Vitals/I&O/Wt Last Vital Signs Temp 97.6 F 11/20/20 16:00 Pulse 122 H 11/20/20 16:00 Resp 32 H 11/20/20 16:00 BP 111/71 11/20/20 16:00 Pulse Ox 77 L 11/20/20 16:00 11/20/20 11/20/20 11/20/20 06:59 14:59 22:59 Intake Total 1072.5 / 1522.5 300 / 300 Output Total 100 / 200 Balance 972.5 / 1322.5 300 / 300 Weight last 48 hrs Weight 166.922 kg Weight 166.468 kg Physical Exam Const: COMMON NORMALS: no acute distress Extremity: GENERAL: No edema Urinary Catheter Management^: Acevedo: Cath Placed During This Visit: yes Reason for Continuing Indwelling Catheter: Accurate Measurement of Urinary Output in Critically Ill Patients Urinary Catheter Date of Insertion: 11/13/20 Urinary Catheter Time of Insertion: 14:58 Data : 11/20/20 03:28 11/20/20 03:28 Micro: Microbiology 11/13/20 16:40 Blood Culture - Final Blood Coagulase negativ staphylococc 11/13/20 10:45 Stool Lactoferrin - Final Stool Enteric Pathogens (PCR) - Preliminary Parasite Antigen Panel - Final C.difficile Toxin B Gene (PCR) - Final A&P Additional A&P Information 1. Acute kidney injury, CKD, minimal urine output 2. NSTEMI s/p stent LAD 3. Colitis and pneumonia first dialysis session yesterday 4. Anemia: Hb stable 5. Hypervolemic hyponatremia, stable Plan: HD tomorrow 11/21/20. Orders entered. Will need tunneled dialysis catheter prior to discharge. 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
[2020-11-20 16:59] LABS: Glucose Point of Care 164 mg/dL (70-110)
--- NOTE | 2020-11-20 19:19 | PC.NURSE ---
received into room 108 from icu at 1410.report received.pt is alert and oriented x 4.denies pain at present.afib on monitor.oriented to room environment.utilizing hover sheet for positioning in bed.instructed to notify staff for any pain,sob,chest pain.verb understanding of instruction.
[2020-11-20 20:16] LABS: Glucose Point of Care 143 mg/dL (70-110)
[2020-11-20] MEDS: atorvastatin 40 mg Tablet 80 MG PO (21:41)
[2020-11-20] MEDS: heparin 5,000 unit/mL INJ 1 mL 5000 UNIT SUBCUT (21:44)
[2020-11-21] VITALS (15 sets, daily range): BP systolic 103–139; BP diastolic 64–83; PULSE 99–123; RESP 14–28; TEMP 36.2–36.8; O2SAT 90–99
[2020-11-21 04:52] LABS: Basophils # 0.1 10^3/uL (0.0-0.1); Basophils % 0.9 %; Eosinophils # 0.4 10^3/uL (0.0-0.8); Eosinophils % 2.6 %; Hematocrit 28.2 % (37.0-47.0); Lymphocytes # 2.2 10^3/uL (0.8-4.8); Lymphocytes % 14.6 %; Mean Corpuscular HGB Conc 31.9 g/dL (30.0-36.0); Mean Corpuscular Volume 100.4 fL (81-99); Mean Platelet Volume 10.7 fL (7.4-10.4); Monocytes # 1.2 10^3/uL (0.2-0.9); Monocytes % 7.9 %; Neutrophils # 9.52 10^3/uL (1.8-7.7); Neutrophils % 62.9 %; Nucleated Red Blood Cells # 0.1 /100WBC; Nucleated Red Blood Cells % 0.3 %; Platelet Count 291 10^3/cmm (130-400); Red Blood Count 2.81 10^6/uL (4.1-5.3); Red Cell Distribution Width 14.2 % (12.1-15.1); White Blood Count 15.1 10^3/uL (4.0-10.0)
[2020-11-21 05:04] LABS: Alanine Aminotransferase < 5 U/L (0-33); Albumin Level 2.4 g/dL (3.5-5.2); Alkaline Phosphatase 165 IU/L (35-105); Anion Gap 16.4 (5-19); Aspartate Amino Transferase 27 U/L (0-32); Blood Urea Nitrogen 36 mg/dL (8-23); Calcium 7.7 mg/dL (8.5-10.5); Carbon Dioxide 24 mmol/L (22-29); Chloride 94 mmol/L (98-107); Globulin 3.6 g/dL (1.3-4.6); Glucose 111 mg/dL (65-115); Magnesium 2.2 mg/dL (1.7-2.3); Osmolality Calculated 279 mOsm/kg (285-295); Potassium 4.4 mmol/L (3.5-5.1); Sodium 130 mmol/L (136-145); Total Bilirubin 0.3 mg/dL (0.15-1.2)
[2020-11-21 05:16] LABS: Slide Review Slide Review Perform
[2020-11-21 06:55] LABS: Glucose Point of Care 117 mg/dL (70-110)
--- NOTE | 2020-11-21 07:34 | PC.NURSE ---
Received bedside report from CHEYENNE Yanez. Patient left for dialysis first thing this morning and will be there for the next 3 hours. VS stable upon departure.
--- NOTE | 2020-11-21 08:58 | P.PN_ITS ---
Subjective Subjective: Interval history: Patient continues to be in atrial fibrillation with intermittent rapid ventricular rate. She denies any chest pain or chest tightness. Scheduled for hemodialysis tomorrow. She also is scheduled to have an indwelling dialysis catheter in the subclavian vein. She denies any fever or chills. No cough. Medications: Reviewed: Yes Medication Review Details: Current Medications Al Hydrox/Mg Hydrox/Simethicone (Femk-Gpu-Hjfvzrffb-Della 30 Ml Udc) 30 ml PO Q15M PRN PRN Reason: INDIGESTION Albuterol Sulfate (Albuterol 2.5 Mg/0.5 Ml Neb) 2.5 mg INHALATION Q4H.RESPIRATORY PRN PRN Reason: SHORTNESS OF BREATH Albuterol/Ipratropium (Ipratropium-Albuterol 3 Ml Neb) 3 ml INHALATION Q6H.RESPIRATORY [facility] Last Admin: 11/21/20 08:11 Dose: Not Given Documented by: Alprazolam (Alprazolam 0.25 Mg Tablet) 0.25 mg PO TID PRN PRN Reason: ANXIETY Last Admin: 11/18/20 21:04 Dose: 0.25 mg Documented by: Apixaban (Apixaban 5 Mg Tablet) 5 mg PO BID@0900,2100 [facility] Last Admin: 11/20/20 09:26 Dose: 5 mg Documented by: Atorvastatin Calcium (Atorvastatin 40 Mg Tablet) 80 mg PO BEDTIME [facility] Last Admin: 11/20/20 21:41 Dose: 80 mg Documented by: Atropine Sulfate (Atropine 1 Mg/Ml Sdv 1 Ml) 0.5 mg IVP PRN PRN PRN Reason: Symptomatic bradycardia Bisacodyl (Bisacodyl 5 Mg Tablet) 10 mg PO DAILY [facility] Last Admin: 11/20/20 09:22 Dose: 10 mg Documented by: Bisacodyl (Bisacodyl 10 Mg Supp) 10 mg TN DAILY [facility] Last Admin: 11/20/20 13:47 Dose: 10 mg Documented by: Budesonide (Budesonide 0.5 Mg/2 Ml Neb) 0.5 mg INHALATION BID [facility] Last Admin: 11/21/20 08:11 Dose: Not Given Documented by: Clopidogrel Bisulfate (Clopidogrel 75 Mg Tablet) 75 mg PO DAILY [facility] Last Admin: 11/20/20 09:22 Dose: 75 mg Documented by: Dextrose (Dextrose 50% Syringe 50 Ml) 50 ml IVP PRN PRN; Protocol PRN Reason: hypoglycemia protocol Last Admin: 11/17/20 18:22 Dose: 50 ml Documented by: Ferrous Gluconate (Ferrous Gluconate 324 Mg Tablet) 324 mg PO BIDWM [facility] Last Admin: 11/20/20 17:34 Dose: 324 mg Documented by: Folic Acid (Folic Acid 1 Mg Tablet) 1 mg PO BID [facility] Last Admin: 11/20/20 17:34 Dose: 1 mg Documented by: Gabapentin (Gabapentin 100 Mg Capsule) 200 mg PO QID [facility] Last Admin: 11/20/20 21:42 Dose: 200 mg Documented by: Glucagon (Glucagon 1 Mg/Ml Inj 1 Ml) 1 mg IM ONCE PRN; Protocol PRN Reason: Adult Acute Hypoglycemia Prot. Heparin Sodium (Beef Lung) (Heparin 5,000 Unit/Ml Inj 1 Ml) 5,000 unit SUBCUT Q12H [facility] Last Admin: 11/20/20 21:44 Dose: 5,000 unit Documented by: Dextrose (D5w) 500 mls @ 100 mls/hr IV ONCE PRN; Protocol PRN Reason: Adult Acute Hypoglycemia Prot Dextrose/Sodium Chloride (Dextrose 5%-Sod Chloride 0.45%) 1,000 mls @ 30 mls/hr IV .Q24H [facility] Last Admin: 11/20/20 03:47 Dose: 30 mls/hr Documented by: Sodium Chloride (Sodium Chloride 0.9%) 1,000 mls @ 0 mls/hr IV .Q0M PRN PRN Reason: hypotension or symptomatic Insulin Aspart (Insulin Aspart 100 Unit/1 Ml) 0 unit SUBCUT WM&BEDTIME [facility]; Protocol Last Admin: 11/21/20 07:36 Dose: Not Given Documented by: Levothyroxine Sodium (Levothyroxine 25 Mcg Tablet) 25 mcg PO DAILY [facility] Last Admin: 11/20/20 09:22 Dose: 25 mcg Documented by: Levothyroxine Sodium (Levothyroxine 200 Mcg Tablet) 200 mcg PO DAILY [facility] Last Admin: 11/20/20 09:22 Dose: 200 mcg Documented by: Magnesium Hydroxide (Magnesium Hydroxide 30 Ml Udc) 30 ml PO DAILY PRN PRN Reason: CONSTIPATION Metoprolol Tartrate (Metoprolol Tartrate 50 Mg Tablet) 50 mg PO BID@0900,2100 [facility] Last Admin: 11/20/20 21:55 Dose: 50 mg Documented by: Morphine Sulfate (Morphine 4 Mg/Ml Sdv 1 Ml) 2 mg IVP Q8H PRN PRN Reason: SEVERE PAIN Last Admin: 11/19/20 01:11 Dose: 2 mg Documented by: Multivitamins Therapeutic (Multivitamin Therapeutic Tablet) 1 tab PO DAILY [facility] Last Admin: 11/20/20 09:22 Dose: 1 tab Documented by: Naloxone HCl (Naloxone 0.4 Mg/Ml Sdv) 0.1 mg IVP Q2M PRN PRN Reason: RESPIRATORY RATE < 8/MIN Nitroglycerin (Nitroglycerin 0.4 Mg Sublingual Tablet) 0.4 mg SUBLINGUAL Q5M PRN PRN Reason: CHEST PAIN Ondansetron HCl (Ondansetron 2 Mg/Ml Sdv 2 Ml) 4 mg IVP Q6H PRN PRN Reason: NAUSEA AND VOMITING Last Admin: 11/14/20 10:33 Dose: 4 mg Documented by: Pantoprazole Sodium (Pantoprazole Dr 40 Mg Tablet) 40 mg PO DAILY [facility] Last Admin: 11/20/20 09:22 Dose: 40 mg Documented by: Phenytoin (Phenytoin Er 100 Mg Capsule) 200 mg PO BID [facility] Last Admin: 11/20/20 17:34 Dose: 200 mg Documented by: Polyethylene Glycol (Polyethylene Glycol 3350 Pkt 17 Gm) 17 gm PO DAILY [facility] Last Admin: 11/20/20 09:21 Dose: 17 gm Documented by: Temazepam (Temazepam 15 Mg Capsule) 15 mg PO BEDTIME PRN PRN Reason: INSOMNIA Thiamine Mononitrate (Thiamine 100 Mg Tablet) 100 mg PO DAILY [facility] Last Admin: 11/20/20 09:22 Dose: 100 mg Documented by: Vitals/I&O/Wt Last Vital Signs Temp 98.3 F 11/21/20 04:00 Pulse 105 H 11/21/20 06:00 Resp 28 H 11/21/20 04:00 BP 118/73 11/21/20 04:00 Pulse Ox 91 11/21/20 04:00 11/20/20 11/21/20 11/21/20 22:59 06:59 14:59 Intake Total 230 / 530 60 / 590 Output Total 25 / 25 25 / 50 Balance 205 / 505 35 / 540 Weight last 48 hrs Weight 369 lb Weight 368 lb Physical Exam Narrative: EXAM NARRATIVE: GENERAL: The patient is alert and oriented times three. Not in any acute distress. Morbidly obese HEENT: No significant pallor, icterus or lymphadenopathy. Oral cavity: There are no mucous membrane lesions. NECK: Trachea appears to be central. No masses noted. No JVD or thyromegaly appreciated. No carotid bruit. Right IJ in place RESPIRATORY: Chest is symmetrical. No intercostals muscle retraction or any accessory muscle activation. There is no chest wall tenderness. Breath sounds are heard bilaterally. No rales or rhonchi heard. No evidence of any consolidation. The intensity of the breath sounds are diminished in the bases BREASTS: Deferred. HEART: PMI could not be palpated. No palpable precordial events. S1 and S2 are normal. No S3 or S4 heard. No pericardial rub or any click heard. ABDOMEN: Abdomen is obese. Diffuse tenderness in the periumbilical region . No vessel pulsations or distention. No organomegaly appreciated. No abdominal bruit. Bowel sounds are normally heard. : Deferred. RECTAL: Deferred. LYMPHATIC: No lymphadenopathy noted in the neck or groin. EXTREMITIES: 1+ edema both lower extremities. Features of chronic venous stasis. MUSCULOSKELETAL: No acute joint deformities or swelling SKIN: There are no significant scars or skin rash noted. NEUROPSYCHIATRIC: The patient is alert and oriented x3. No focal motor deficits Urinary Catheter Management^: Acevedo: Cath Placed During This Visit: yes Reason for Continuing Indwelling Catheter: Accurate Measurement of Urinary Output in Critically Ill Patients Urinary Catheter Date of Insertion: 11/13/20 Urinary Catheter Time of Insertion: 14:58 Data : 11/23/20 04:14 11/23/20 04:14 Other Labs: Laboratory Last Values WBC 15.1 10^3/uL (4.0-10.0) H 11/21/20 04:19 RBC 2.81 10^6/uL (4.1-5.3) L 11/21/20 04:19 Hgb 9.0 g/dL (11.5-15.3) L 11/21/20 04:19 Hct 28.2 % (37.0-47.0) L 11/21/20 04:19 MCV 100.4 fL (81-99) H 11/21/20 04:19 MCH 32.0 pg (28.0-34.0) 11/21/20 04:19 MCHC 31.9 g/dL (30.0-36.0) 11/21/20 04:19 RDW 14.2 % (12.1-15.1) 11/21/20 04:19 Plt Count 291 10^3/cmm (130-400) 11/21/20 04:19 MPV 10.7 fL (7.4-10.4) H 11/21/20 04:19 Neut % (Auto) 62.9 % 11/21/20 04:19 Lymph % (Auto) 14.6 % 11/21/20 04:19 [place] % (Auto) 7.9 % 11/21/20 04:19 Eos % (Auto) 2.6 % 11/21/20 04:19 Baso % (Auto) 0.9 % 11/21/20 04:19 Neut # (Auto) 9.52 10^3/uL (1.8-7.7) H 11/21/20 04:19 Lymph # (Auto) 2.2 10^3/uL (0.8-4.8) 11/21/20 04:19 [place] # (Auto) 1.2 10^3/uL (0.2-0.9) H 11/21/20 04:19 Eos # (Auto) 0.4 10^3/uL (0.0-0.8) 11/21/20 04:19 Baso # (Auto) 0.1 10^3/uL (0.0-0.1) 11/21/20 04:19 Nucleated RBC % (auto) 0.3 % 11/21/20 04:19 Total Counted 100 (0-100) 11/15/20 06:01 Atypical Lymphs % 0.0 % (0-5) 11/15/20 06:01 Absolute Neutrophils 19.2 10^3/cmm (1.4-6.5) H 11/15/20 06:01 Segmented Neutrophils 74 % 11/15/20 06:01 Abs Segm Neuts (Man) 14.9 10/cmm (1.6-7.1) H 11/15/20 06:01 Band Neutrophils 21.0 % 11/15/20 06:01 Abs Band Neuts (Man) 4.2 10^3/cmm (0.0-1.2) H 11/15/20 06:01 Absolute Lymphocytes 0.8 10^3/cmm (1.2-3.4) L 11/15/20 06:01 Lymphocytes (Manual) 4 % 11/15/20 06:01 Monocytes (Manual) 0.0 % 11/15/20 06:01 Absolute Monocytes 0.0 10^3/cmm (0.1-0.6) L 11/15/20 06:01 Eosinophils (Manual) 1 % 11/15/20 06:01 Absolute Eosinophils 0.2 10^3/cmm (0.0-0.7) 11/15/20 06:01 Basophils (Manual) 0.0 % 11/15/20 06:01 Absolute Basophils 0.0 10^3/cmm (0.0-0.2) 11/15/20 06:01 Nucleated RBCs # 0.1 /100WBC 11/21/20 04:19 Platelet Estimate Normal (Normal) 11/15/20 06:01 Macrocytosis 1+ H 11/15/20 06:01 APTT 45.3 SECONDS (23.9-36.7) H D 11/18/20 16:29 D-Dimer 2.16 ug/mIFEU (0-0.59) H 11/14/20 23:52 Sodium 130 mmol/L (136-145) L 11/21/20 04:19 Potassium 4.4 mmol/L (3.5-5.1) 11/21/20 04:19 Chloride 94 mmol/L (98-107) L 11/21/20 04:19 Carbon Dioxide 24 mmol/L (22-29) 11/21/20 04:19 Anion Gap 16.4 (5-19) 11/21/20 04:19 BUN 36 mg/dL (8-23) H 11/21/20 04:19 Creatinine 3.7 mg/dL (0.5-0.9) H 11/21/20 04:19 GFR Calculation Not Reportable 11/21/20 04:19 Glucose 111 mg/dL (65-115) 11/21/20 04:19 POC Glucose 117 mg/dL (70-110) H 11/21/20 06:49 Estimat Average Glucose 148 11/14/20 05:43 Hemoglobin A1c 6.8 % (4.0-6.0) H 11/14/20 05:43 Calculated Osmolality 279 mOsm/kg (285-295) L 11/21/20 04:19 Lactic Acid 1.6 mmol/L (0.5-2.2) 11/14/20 12:15 Lactic Acid (Sepsis) 3.1 mmol/L (0.5-2.2) H 11/13/20 19:30 Lactate Cancelled 11/13/20 19:30 Calcium 7.7 mg/dL (8.5-10.5) L 11/21/20 04:19 Phosphorus 4.5 mg/dL (2.5-4.5) 11/17/20 02:57 Magnesium 2.2 mg/dL (1.7-2.3) 11/21/20 04:19 Iron 34 ug/dL (37-145) L 11/17/20 02:57 TIBC 110 mcg/dl 11/17/20 02:57 % Saturation 30.9 % (20-50) 11/17/20 02:57 Unsat Iron Binding 76 ug/dL (112-347) L 11/17/20 02:57 Ferritin 1262 ng/mL (15-150) H 11/17/20 02:57 Total Bilirubin 0.3 mg/dL (0.15-1.2) 11/21/20 04:19 AST 27 U/L (0-32) 11/21/20 04:19 ALT < 5 U/L (0-33) 11/21/20 04:19 Alkaline Phosphatase 165 IU/L (35-105) H 11/21/20 04:19 Creatine Kinase 148 U/L (26-192) 11/15/20 06:01 Troponin T Gen 5 ng/L 1202 ng/L (0-10) H* 11/15/20 16:22 Troponin T Baseline 1184 ng/L (0-10) H* 11/14/20 23:52 Troponin T 120 Minute 1348 ng/L (0-10) H 11/15/20 01:49 Delta Troponin T 164 ABS# (0-10) H* 11/15/20 01:49 Troponin T Hi Sens 6Hr 1276 ng/L (0-10) H 11/15/20 06:01 Troponin T Hi Sens 6Hr Delta 92 ng/L (0-12) H* 11/15/20 06:01 NT-Pro-B Natriuret Pep 4932 pg/mL (0-450) H 11/13/20 10:56 Total Protein 6.0 g/dL (6.6-8.7) L 11/21/20 04:19 Albumin 2.4 g/dL (3.5-5.2) L 11/21/20 04:19 Globulin 3.6 g/dL (1.3-4.6) 11/21/20 04:19 Triglycerides 144 mg/dL (0-150) 11/16/20 05:53 Cholesterol 107 mg/dL (0-200) 11/16/20 05:53 LDL Cholesterol, Calc 45 mg/dL (50-129) L 11/16/20 05:53 Total VLDL Cholesterol 29 mg/dL (0-30) 11/16/20 05:53 HDL Cholesterol 33 mg/dL (60-100) L 11/16/20 05:53 Cholesterol/HDL Ratio 3.24 mg/dL (0.0-4.40) 11/16/20 05:53 Lipase 23 U/L (13-60) 11/13/20 10:56 Vitamin B12 370 pg/mL (232-1245) 11/14/20 05:43 Folate 19.8 ng/mL (4.8-37.3) 11/14/20 05:43 Procalcitonin 2.02 ng/mL (0-0.5) H 11/13/20 10:56 TSH 0.43 uIU/mL (0.27-4.20) 11/13/20 10:56 Random Cortisol 23.66 ug/dL (2.47-19.5) H 11/19/20 04:29 Urine Color Yellow (Yellow) 11/13/20 14:21 Urine Appearance Clear (CLEAR) 11/13/20 14:21 Urine pH 6.5 (5-7) 11/13/20 14:21 Ur Specific [place] 1.010 (1.005-1.030) 11/13/20 14:21 Urine Protein Trace (Negative) 11/13/20 14:21 Urine Glucose (UA) 4+ (Normal) H 11/13/20 14:21 Urine Ketones Negative (Negative) 11/13/20 14:21 Urine Blood Neg (Negative) 11/13/20 14:21 Urine Nitrate Negative (Negative) 11/13/20 14:21 Urine Bilirubin Neg (Negative) 11/13/20 14:21 Urine Urobilinogen Norm mg/dL (Negative) 11/13/20 14:21 Ur Leukocyte Esterase Negative (Negative) 11/13/20 14:21 Urine RBC None /hpf (0-2) 11/13/20 14:21 Urine WBC None /hpf (0-5) 11/13/20 14:21 Ur Squamous Epith Cells 0-4 /hpf (0-5) H 11/13/20 14:21 Amorphous Sediment Not Reportable 11/13/20 14:21 Urine Bacteria 1+ /hpf (NONE) H 11/13/20 14:21 Ur Random Sodium 82 mmol/L 11/13/20 14:21 Ur Random Potassium 34 mmol/L 11/13/20 14:21 Ur Random Chloride 62 mmol/L 11/13/20 14:21 Urine Creatinine 4 mg/dL (28-217) L 11/13/20 14:21 Vancomycin Trough 14.7 ug/mL (10-15) 11/17/20 20:00 Random Vancomycin 13.3 ug/mL (20.0-40.0) L 11/15/20 06:01 Random Vancomycin Cancelled 11/15/20 06:01 Nasal/Oral COVID-19 PCR Not detected 11/13/20 17:00 Hep Bs Antigen Non-reactive (Nonreactive) 11/16/20 05:53 Hep Bs Antibody 5.8 (11.5-1000) L 11/16/20 05:53 Hepatitis C Antibody Non-reactive (Nonreactive) 11/16/20 05:53 Influenza Type A Ag Negative (Negative) 11/13/20 17:00 Influenza Type B Ag Negative (Negative) 11/13/20 17:00 SARS-CoV-2 Ag (Rapid) Negative (Negative) 11/13/20 17:00 A&P Assessment and plan (1) Atherosclerotic heart disease of [place] coronary artery with unstable angina pectoris: Patient had a clinical features of a non-ST relation myocardial infarction. Cardiac catheterization revealing high-grade lesion in the left anterior descending artery. She had a PCI of the LAD lesion. Currently seems to be stable. No specific cardiac symptoms at this time. Qualifiers: [place] vs. transplanted heart: [place] heart Qualified Code(s): I25.110 - Atherosclerotic heart disease of [place] coronary artery with unstable angina pectoris (2) Atrial fibrillation with rapid ventricular response: Patient has intermittent rapid ventricular rate. We will try to optimize AV gualberto blocking agents. In view of the high bleeding risk, patient may be given a reduced dose of the Eliquis 2.5 mg p.o. twice daily. Because of the anticipated surgery, (3) PVD (peripheral vascular disease): Currently the patient has no specific symptoms pertaining to the PVD. May continue on the current medications. (4) [id number] kidney injury: Scheduled for hemodialysis tomorrow. Indwelling dialysis catheter placement- Status: Acute Qualifiers: Acute renal failure type: unspecified Chronic kidney disease stage: stage 4 (severe) Qualified Code(s): N17.9 - Acute kidney failure, unspecified; N18.4 - Chronic kidney disease, stage 4 (severe) (5) Colitis: Management as per the hospitalist service. Clinically seems to be responding. Status: Resolved (6) Community acquired pneumonia: Patient is on IV antibiotics. Remaining afebrile. White cell count is coming down. Status: Resolved Qualifiers: Laterality: left Lung location: lower lobe of lung Qualified Code(s): J18.9 - Pneumonia, unspecified organism Additional A&P Information Her other problems are Essential benign hypertension, currently normotensive Type 2 diabetes Dyslipidemia History of seizure disorder Chronic venous stasis History of DVT Chronic anemia Patient clinical progress, further recommendations will be made. 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 transplanted heart: [place] heart Atrial fibrillation with rapid ventricular response I48.91 PVD (peripheral vascular disease) I73.9 Cddio-ub-wuocbrm kidney injury N17.9; N18.4 Acute renal failure type: unspecified Chronic kidney disease stage: stage 4 (severe) Colitis K52.9 Community acquired pneumonia J18.9 Laterality: left Lung location: lower lobe of lung
--- NOTE | 2020-11-21 11:17 | PC.NURSE ---
Patient back from dialysis and in room, up to bedside commode. Patients VS are WNL with the exception of HR at 116bpm.
[2020-11-21] MEDS: metoprolol tartrate 50 mg Tablet PO ×2 (11:31→21:18)
[2020-11-21] MEDS: ferrous gluconate 324 mg Tablet PO ×2 (11:32→17:53)
[2020-11-21] MEDS: gabapentin 100 mg Capsule 200 MG PO ×4 (11:32→21:18)
[2020-11-21] MEDS: pantoprazole DR 40 mg Tablet PO (11:33)
[2020-11-21] MEDS: multivitamin therapeutic Tablet 1 TAB PO (11:33)
[2020-11-21] MEDS: levothyroxine 200 mcg Tablet PO (11:33)
[2020-11-21] MEDS: thiamine 100 mg Tablet PO (11:33)
[2020-11-21] MEDS: clopidogrel 75 mg Tablet PO (11:34)
[2020-11-21] MEDS: folic acid 1 mg Tablet PO ×2 (11:34→17:53)
[2020-11-21] MEDS: bisacodyl 5 mg Tablet 10 MG PO (11:34)
[2020-11-21] MEDS: levothyroxine 25 mcg Tablet PO (11:34)
[2020-11-21] MEDS: heparin 5,000 unit/mL INJ 1 mL 5000 UNIT SUBCUT ×2 (11:35→21:18)
[2020-11-21] MEDS: polyethylene glycol 3350 Pkt 17 gm PO (11:36)
[2020-11-21 11:44] LABS: Glucose Point of Care 105 mg/dL (70-110)
[2020-11-21] MEDS: phenytoin ER 100 mg Capsule 200 MG PO ×2 (13:21→17:52)
--- NOTE | 2020-11-21 13:55 | P.PN_ITS ---
Subjective Subjective: Interval history: No new issues today. Mrs. Lee is seen and examined on hemodialysis. She is tolerating the therapy very well. No uremic symptoms. No fevers or chills, breathing comfortably, no cough, no overt nausea or vomiting and no diarrhea. She still has minimal urine output. Vitals/I&O/Wt Last Vital Signs Temp 97.2 F L 11/21/20 12:00 Pulse 105 H 11/21/20 12:00 Resp 14 11/21/20 12:00 BP 128/83 11/21/20 12:00 Pulse Ox 90 11/21/20 12:00 11/20/20 11/21/20 11/21/20 22:59 06:59 14:59 Intake Total 230 / 530 60 / 590 120 / 120 Output Total 25 / 25 25 / 50 Balance 205 / 505 35 / 540 120 / 120 Weight last 48 hrs Weight 167.376 kg Weight 166.922 kg Physical Exam Narrative: EXAM NARRATIVE: Constitutional: Awake, comfortable HEENT: Wet mucosa, no jvp, non icteric Lungs: Bilaterally clear without discernible wheeze, rales in all lung zones CVS: S1 S2, no murmurs Abdo: Soft, BS ok Ext 4: Minimal edema, peripheral perfusion with no cyanosis Neurological: Grossly non-focal Urinary Catheter Management^: Acevedo: Cath Placed During This Visit: yes Reason for Continuing Indwelling Catheter: Accurate Measurement of Urinary Output in Critically Ill Patients Urinary Catheter Date of Insertion: 11/13/20 Urinary Catheter Time of Insertion: 14:58 Data : 11/21/20 04:19 11/21/20 04:19 A&P Additional A&P Information 1. Renal failure Nonrecovery of ischemic/infectious ATN seen on hospitalization. This appears to be a more protracted recovery, hence, she will need to have a tunneled dialysis catheter and outpatient dialysis organized for her for her discharge with close monitoring and observation following discharge for recovery. She was seen and examined on dialysis today, plan next treatment on . Dose medication for GFR less than 15 on hemodialysis. 2. Ileus and colitis Did receive antibiotics initially and remains on Primaxin for this. Still not having daily bowel movements. 3. Atrial fibrillation Atrial fibrillation with RVR, on metoprolol 4. Chemistry Minor noncritical aberration, continue to monitor. Corbin Sánchez MD Nephrology [phone] Patient seen and examined via telemedicine, with the assistance of the bedside RN > 25 min spent in evaluation and mgmt of patient Attestations Medical Necessity Statement*: Eval for TIFFANY Coding Level of Care Code Acute Early Intervention Specialist for [facility]
[2020-11-21] MEDS: ipratropium-albuterol 3 mL Neb INHALATION ×2 (15:43→20:48)
[2020-11-21 16:11] LABS: Glucose Point of Care 140 mg/dL (70-110)
--- NOTE | 2020-11-21 16:57 | PC.NURSE ---
Dextrose 5% paused in system because medication is not present or running at bedside.
--- NOTE | 2020-11-21 19:02 | PM.PN ---
Subjective Subjective: Interval history: During hemodialysis she is doing well. Denies any dizziness or lightheadedness. Blood pressure was somewhat soft earlier, and to allow for hemodialysis metoprolol was held. She denies chest pain or pressure. Denies shortness of breath. Vitals/I&O/Wt Last Vital Signs Temp 97.8 F 11/21/20 15:01 Pulse 123 H 11/21/20 15:54 Resp 17 11/21/20 15:43 BP 116/67 11/21/20 15:01 Pulse Ox 96 11/21/20 15:43 11/21/20 11/21/20 11/21/20 06:59 14:59 22:59 Intake Total 60 / 590 936.5 / 936.5 360 / 1296.5 Output Total 25 / 50 Balance 35 / 540 936.5 / 936.5 360 / 1296.5 Weight last 48 hrs Weight 167.376 kg Weight 166.922 kg Physical Exam Const: COMMON NORMALS: no acute distress, patient oriented x3 and alert GENERAL APPEARANCE: cooperative NUTRITIONAL APPEARANCE: obese morbidly obese ORIENTATION/CONSCIOUSNESS: Yes awake HENMT: COMMON NORMALS: oropharynx normal Neck/C-Spine: COMMON NORMALS: no JVD Resp: COMMON NORMALS: normal respiratory effort and clear to auscultation bilaterally AUSCULTATION: clear to auscultation bilaterally Cardio: COMMON NORMALS: no JVD, S1 normal heart sound present, S2 normal heart sound present and No murmurs present (Cardio) RATE: tachycardic RHYTHM: abnormal rhythm irregularly irregular HEART SOUNDS: S1 normal heart sound present and S2 normal heart sound present GI: COMMON NORMALS: Soft to palpation and non-tender AUSCULTATION: Yes normoactive bowel sounds PALPATION: Yes Soft to palpation Extremity: COMMON NORMALS: no joint enlargement and no pedal edema Neuro: COMMON NORMALS: patient oriented x3 and moves all extremities SENSORIUM/ORIENTATION: Yes alert Skin: COMMON NORMALS: no rashes or lesions noted GENERAL SKIN EXAM: no rashes or lesions noted Urinary Catheter Management^: Acevedo: Cath Placed During This Visit: yes Reason for Continuing Indwelling Catheter: Accurate Measurement of Urinary Output in Critically Ill Patients Urinary Catheter Date of Insertion: 11/13/20 Urinary Catheter Time of Insertion: 14:58 Data : 11/21/20 04:19 11/21/20 04:19 A&P Assessment and plan (1) Colitis: Has had a bowel movement last night, and additional large bowel movement today. Ileus appears to be improving. Change suppository to as needed. Advance diet as tolerating. Primaxin appears for some reason was discontinued. We will switch antibiotics to renally dosed ciprofloxacin, and Flagyl. Ileus noted on x-ray 11/16, appears to have persistent still as appetite is not good, poor oral intake, occasional nausea, intermittent belching up until yesterday. At home states take stool softeners to help her have daily bowel movements. Continue mobilization. States she would consider going to long term facility after discharge for rehabilitation due to physical deconditioning. Status: Acute (2) [id number] kidney injury: Appreciate nephrology recommendations. Will require hemodialysis after discharge. Discussed with case management. Requesting surgery consultation for placement of tunneled catheter. Eliquis was held, last dose was yesterday morning. Continue Plavix. Continues on hemodialysis support as needed due to TIFFANY on CKD. Currently temporary catheter in the right IJ. Usually follows with Dr. Hendricks. Status: Acute Qualifiers: Acute renal failure type: unspecified Chronic kidney disease stage: stage 4 (severe) Qualified Code(s): N17.9 - Acute kidney failure, unspecified; N18.4 - Chronic kidney disease, stage 4 (severe) (3) Afib: This morning to allow for hemodialysis due to soft blood pressure metoprolol was held. Transient tachycardia during hemodialysis but improved, subsequently received metoprolol around lunchtime. If A. fib with RVR persist, additional treatment with amiodarone may be considered per discussion with cardiology. Up titration of beta-efe limited by blood pressure. Digoxin may not be a good choice given renal failure. Continue Eliquis. Status: Acute Qualifiers: Atrial fibrillation type: unspecified Qualified Code(s): I48.91 - Unspecified atrial fibrillation (4) Sepsis: Change antibiotics to renally dosed ciprofloxacin, and Flagyl. Colitis, ileus, sepsis appears to be resolving. Leukocytosis still persists with 15,000. Tachycardia secondary to A. fib with RVR. Afebrile. Overall sepsis appears to be resolving, although slowly. No growth on cultures. Apart from 07/17 coag negative staph from 11/13, although suspected contamination. 5/7 preliminary blood cultures negative. Status: Acute (5) Acute non-ST elevation myocardial infarction (NSTEMI): Status post coronary angiography and stent placement to LAD. Continue aspirin, Plavix, statin, Toprol. Echocardiogram with EF 40%, diffuse hypokinesia of septum, anteroseptal, inferior wall and LV apex. Mild increased LA size, mild MR. Status: Acute (6) Renal insufficiency: Status: Acute (7) Status post insertion of drug-eluting stent into left anterior descending (LAD) artery: Status: Acute (8) 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: Status: Acute (9) Morbid obesity: Status: Acute (10) Diabetes: Continue sliding scale insulin at this time. Long-acting insulin has been held. Status: Acute (11) CAD (coronary artery disease): Status: Acute Attestations Medical Necessity Statement*: Continue admission for assessment of improving sepsis, colitis, de-escalation of antibiotics, holding of anticoagulation to allow for placement of dialysis catheter in the setting of need to continue Plavix, optimization of rate control of atrial fibrillation with RVR, discharge arrangements for hemodialysis, arrangements for placement to skilled nurse facility for rehabilitation. Coding Level of Care Code Acute [employer] for [facility] Fwd Diagnoses Colitis K52.9 Awxoq-hx-zhgthoh kidney injury N17.9; N18.4 Acute renal failure type: unspecified Chronic kidney disease stage: stage 4 (severe) Afib I48.91 Atrial fibrillation type: unspecified Sepsis A41.9 Acute non-ST elevation myocardial infarction (NSTEMI) I21.4 Renal insufficiency N28.9 Status post insertion of drug-eluting stent into left anterior descending (LAD) artery Z95.5 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 B96.23 Morbid obesity E66.01 Diabetes E11.9 CAD (coronary artery disease) I25.10
[2020-11-21] MEDS: budesonide 0.5 mg/2 mL Neb INHALATION (19:39)
[2020-11-21] MEDS: ciprofloxacin 500 mg Tablet PO (19:47)
[2020-11-21 20:31] LABS: Glucose Point of Care 140 mg/dL (70-110)
[2020-11-21] MEDS: atorvastatin 40 mg Tablet 80 MG PO (21:18)
[2020-11-21] MEDS: metroNIDAZOLE 500 MG Tablet PO (21:18)
[2020-11-22] VITALS (23 sets, daily range): BP systolic 83–132; BP diastolic 49–98; PULSE 99–124; RESP 18–34; TEMP 36.1–36.9; O2SAT 90–99
--- NOTE | 2020-11-22 | SC_ITS ---
WS: [id number] Insertion dialysis catheter, C-arm fluoroscopy, 11/22/2020 Clinical Data: DIALYSIS CATH EXCHANGE Comparison: Portable chest, 11/15/2020. Findings: The right dialysis catheter was exchanged. SC/C-arm FL for CVA 32161 Impression: Exchange right dialysis catheter.
--- NOTE | 2020-11-22 | SCC_ITS ---
Procedure Done: Exchange of temporary dialysis catheter to 16 Czech 23 cm long tunneled AshSplit hemodialysis catheter 38.2 seconds of fluoroscopic guidance, for a cumulative dose of 16.75 mGy, was provided to Dr. Corrales by the radiology department. C-arm images of the chest were saved for the patient's permanent record. [facility]
[2020-11-22] MEDS: ipratropium-albuterol 3 mL Neb INHALATION ×4 (04:00→20:28)
[2020-11-22 04:54] LABS: Basophils # 0.1 10^3/uL (0.0-0.1); Basophils % 0.6 %; Eosinophils # 0.4 10^3/uL (0.0-0.8); Eosinophils % 2.7 %; Hematocrit 28.2 % (37.0-47.0); Hemoglobin 8.7 g/dL (11.5-15.3); Lymphocytes % 14.1 %; Mean Corpuscular HGB Conc 30.9 g/dL (30.0-36.0); Mean Corpuscular Hemoglobin 31.6 pg (28.0-34.0); Mean Corpuscular Volume 102.5 fL (81-99); Mean Platelet Volume 10.3 fL (7.4-10.4); Monocytes # 1.1 10^3/uL (0.2-0.9); Monocytes % 7.6 %; Neutrophils # 9.55 10^3/uL (1.8-7.7); Neutrophils % 66.9 %; Nucleated Red Blood Cells # 0.1 /100WBC; Nucleated Red Blood Cells % 0.4 %; Platelet Count 310 10^3/cmm (130-400); Red Blood Count 2.75 10^6/uL (4.1-5.3); Red Cell Distribution Width 14.8 % (12.1-15.1); White Blood Count 14.3 10^3/uL (4.0-10.0)
[2020-11-22 05:15] LABS: Alanine Aminotransferase < 5 U/L (0-33); Albumin Level 2.3 g/dL (3.5-5.2); Alkaline Phosphatase 172 IU/L (35-105); Anion Gap 16.2 (5-19); Aspartate Amino Transferase 27 U/L (0-32); Blood Urea Nitrogen 25 mg/dL (8-23); Calcium 7.5 mg/dL (8.5-10.5); Carbon Dioxide 24 mmol/L (22-29); Chloride 96 mmol/L (98-107); Globulin 3.6 g/dL (1.3-4.6); Glucose 108 mg/dL (65-115); Osmolality Calculated 279 mOsm/kg (285-295); Potassium 4.2 mmol/L (3.5-5.1); Sodium 132 mmol/L (136-145); Total Bilirubin 0.3 mg/dL (0.15-1.2); Total Protein 5.9 g/dL (6.6-8.7)
[2020-11-22 05:19] LABS: Slide Review Slide Review Perform
[2020-11-22 06:55] LABS: Glucose Point of Care 159 mg/dL (70-110)
--- NOTE | 2020-11-22 07:30 | PC.NURSE ---
patient was notified last pm with her evening meds that she was npo. Pt was asked if she wanted a snack at that time. Pt declined the snack but this AM during round the patient stated that she had eaten some grapes that were on her bedside table. Pt was asked if she remembered that she was not to have anything and she said she had forgotten. Day shift nurse advised.
[2020-11-22] MEDS: budesonide 0.5 mg/2 mL Neb INHALATION ×2 (09:19→19:56)
--- NOTE | 2020-11-22 09:24 | PC.NURSE ---
Spoke with Doctor regarding morning medications. Received orders to hold metoprolol and gabapentin until after her procedure for tunneled catheter placement.
[2020-11-22] MEDS: phenytoin ER 100 mg Capsule 200 MG PO ×2 (09:25→17:23)
[2020-11-22] MEDS: multivitamin therapeutic Tablet 1 TAB PO (09:25)
[2020-11-22] MEDS: levothyroxine 25 mcg Tablet PO (09:25)
[2020-11-22] MEDS: levothyroxine 200 mcg Tablet PO (09:26)
[2020-11-22] MEDS: pantoprazole DR 40 mg Tablet PO (09:26)
[2020-11-22] MEDS: ferrous gluconate 324 mg Tablet PO ×2 (09:26→17:20)
[2020-11-22] MEDS: metroNIDAZOLE 500 MG Tablet PO ×3 (09:26→22:30)
[2020-11-22] MEDS: thiamine 100 mg Tablet PO (09:26)
[2020-11-22] MEDS: clopidogrel 75 mg Tablet PO (09:26)
[2020-11-22] MEDS: folic acid 1 mg Tablet PO ×2 (09:26→17:20)
--- NOTE | 2020-11-22 09:51 | PC.SOCIAL ---
*IMM UPDATE* Gave patient IMM update, provided her copy of page 2 of IMM. Verbalized understanding. 11/22/20 @ 0933 Initialed, dated, timed and placed in chart.
--- NOTE | 2020-11-22 11:04 | PM.CONSULT ---
Providers/Reason For Consult Consulting Physican/Specialty*: General Surgery Dr. Corrales Reason for Consult*: Tunneled dialysis catheter placement Attending Physician: Woody Boykin Primary Care Provider: Pascual Kay MD History of Present Illness History of Present Illness Carole Lee is a 75 year old female with multiple comorbidities who presented with pneumonia and acute kidney injury and had a temporary dialysis catheter placed by Dr. Crouch on 11/15/2020. The catheter itself has been functioning well but she needs long-term dialysis and therefore I was consulted for placement of a tunneled dialysis catheter. Review of Systems General: Reports: 10 or more systems reviewed and unremarkable except in HPI and below Meds/Allergies Home Medications and Allergies Home Medications Medication Instructions Recorded Confirmed Last Taken Type Eliquis 5 mg PO BID 09/08/19 11/13/20 11/11/20 History Levemir FlexTouch U-100 Insuln 60 unit SUBCUT BID 09/08/19 11/13/20 11/11/20 History calcitriol 0.5 mcg PO DAILY 09/08/19 11/13/20 11/11/20 History furosemide 40 mg PO DAILY 09/08/19 11/13/20 11/11/20 History glimepiride 4 mg PO DAILY 09/08/19 11/13/20 11/11/20 History insulin aspart U-100 [Novolog See Rx Instructions .ROUTE .COMPLEX 09/08/19 11/13/20 11/11/20 History Flexpen U-100 Insulin] levothyroxine 25 mcg PO DAILY 09/08/19 11/13/20 11/11/20 History levothyroxine 200 mcg PO DAILY 09/08/19 11/13/20 11/11/20 History pantoprazole 40 mg PO DAILY 09/08/19 11/13/20 11/11/20 History phenytoin sodium extended 200 mg PO BID 09/08/19 11/13/20 11/11/20 History pravastatin 20 mg PO DAILY 09/08/19 11/13/20 11/11/20 History amlodipine 10 mg PO DAILY #30 tab 02/01/20 11/13/20 11/11/20 Rx chlorthalidone 25 mg PO DAILY 11/13/20 11/13/20 11/11/20 History gabapentin 800 mg PO QID 11/13/20 11/13/20 11/11/20 History losartan 50 mg PO DAILY 11/13/20 11/13/20 11/11/20 History metoprolol succinate 50 mg PO DAILY 11/13/20 11/13/20 11/11/20 History potassium chloride 10 meq PO DAILY 11/13/20 11/13/20 11/11/20 History Allergies Allergy/AdvReac Type Severity Reaction Status Date / Time gentamicin Allergy Unknown Verified 12/17/19 12:01 hydromorphone [From Dilaudid] Allergy Unknown Verified 12/17/19 12:01 Current Medications Current Medications Generic Name Dose Route Start Last Admin Trade Name Freq PRN Reason Stop Dose Admin Albuterol/Ipratropium 3 ml 11/15/20 21:00 11/22/20 09:19 Ipratropium-Albuterol 3 Ml Neb INHALATION 3 ml Q6H.RESPIRATORY ARMINDA Administration Apixaban 5 mg 11/19/20 21:00 11/20/20 09:26 Apixaban 5 Mg Tablet PO 5 mg BID@0900,2100 ARMINDA Administration Atorvastatin Calcium 80 mg 11/15/20 21:00 11/21/20 21:18 Atorvastatin 40 Mg Tablet PO 80 mg BEDTIME ARMINDA Administration Budesonide 0.5 mg 11/15/20 20:00 11/22/20 09:19 Budesonide 0.5 Mg/2 Ml Neb INHALATION 0.5 mg BID ARMINDA Administration Ciprofloxacin HCl 500 mg 11/21/20 19:30 11/21/20 19:47 Ciprofloxacin 500 Mg Tablet PO 500 mg Q24H ARMINDA Administration Protocol Clopidogrel Bisulfate 75 mg 11/15/20 09:00 11/22/20 09:26 Clopidogrel 75 Mg Tablet PO 75 mg DAILY ARMINDA Administration Dextrose 50 ml 11/13/20 16:44 11/17/20 18:22 Dextrose 50% Syringe 50 Ml IVP 50 ml PRN PRN Administration hypoglycemia protocol Protocol Ferrous Gluconate 324 mg 11/13/20 18:00 11/22/20 09:26 Ferrous Gluconate 324 Mg Tablet PO 324 mg BIDWM ARMINDA Administration Folic Acid 1 mg 11/14/20 18:00 11/22/20 09:26 Folic Acid 1 Mg Tablet PO 1 mg BID ARMINDA Administration Gabapentin 200 mg 11/19/20 13:00 11/22/20 09:31 Gabapentin 100 Mg Capsule PO Not Given QID ARMINDA Insulin Aspart 0 unit 11/14/20 18:00 11/22/20 07:56 Insulin Aspart 100 Unit/1 Ml SUBCUT Not Given WM&BEDTIME [facility] Protocol Levothyroxine Sodium 25 mcg 11/14/20 09:00 11/22/20 09:25 Levothyroxine 25 Mcg Tablet PO 25 mcg DAILY ARMINDA Administration Levothyroxine Sodium 200 mcg 11/14/20 09:00 11/22/20 09:26 Levothyroxine 200 Mcg Tablet PO 200 mcg DAILY ARMINDA Administration Metoprolol Tartrate 50 mg 11/19/20 21:00 11/21/20 21:18 Metoprolol Tartrate 50 Mg Tablet PO 50 mg BID@0900,2100 ARMINDA Administration Metronidazole 500 mg 11/21/20 21:00 11/22/20 09:26 Metronidazole 500 Mg Tablet PO 500 mg TID ARMINDA Administration Multivitamins Therapeutic 1 tab 11/14/20 14:00 11/22/20 09:25 Multivitamin Therapeutic Tablet PO 1 tab DAILY AMRINDA Administration Ondansetron HCl 4 mg 11/13/20 16:25 11/14/20 10:33 Ondansetron 2 Mg/Ml Sdv 2 Ml IVP 4 mg Q6H PRN Administration NAUSEA AND VOMITING Pantoprazole Sodium 40 mg 11/14/20 09:00 11/22/20 09:[address] 40 Mg Tablet PO 40 mg DAILY ARMINDA Administration Phenytoin 200 mg 11/13/20 21:00 11/22/20 09:25 Phenytoin Er 100 Mg Capsule PO 200 mg BID ARMINDA Administration Polyethylene Glycol 17 gm 11/16/20 09:30 11/22/20 10:38 Polyethylene Glycol 3350 Pkt 17 Gm PO Not Given DAILY ARMINDA Thiamine Mononitrate 100 mg 11/14/20 14:00 11/22/20 09:26 Thiamine 100 Mg Tablet PO 100 mg DAILY ARMINDA Administration PFSH Acute PFSH: Medical History CAD (coronary artery disease) Diabetes Dyslipidemia PVD (peripheral vascular disease) Renal insufficiency Venous stasis Surgical History History of ankle surgery History of cataract surgery History of cholecystectomy History of heart artery stent Social History Smoking and tobacco status: never smoked Marital status: / Vitals/I&O/Wt Last Vital Signs Temp 98.4 F 11/22/20 07:31 Pulse 124 H 11/22/20 09:38 Resp 18 11/22/20 09:22 BP 113/64 11/22/20 07:31 Pulse Ox 96 11/22/20 09:22 11/21/20 11/22/20 11/22/20 22:59 06:59 14:59 Intake Total 410 / 1346.5 Output Total 0 / 50 50 / 50 Balance 410 / 1296.5 -50 / 1296.5 Weight last 48 hrs Weight 370 lb Weight 369 lb Physical Exam Narrative: EXAM NARRATIVE: HEENT: Normocephalic, right IJ temporary dialysis catheter Eye: Sclera /conjunctiva normal Abdomen: Soft to palpation Neurological: Oriented to place person and time Skin: Intact, no lesions appreciated on gross exam Urinary Catheter Management^: Acevedo: Cath Placed During This Visit: yes Reason for Continuing Indwelling Catheter: Accurate Measurement of Urinary Output in Critically Ill Patients Urinary Catheter Date of Insertion: 11/13/20 Urinary Catheter Time of Insertion: 14:58 A&P Assessment and plan (1) TIFFANY (acute kidney injury): 75-year-old female with acute kidney injury requiring long-term dialysis. Patient is currently on Plavix after her recent coronary angiogram. Discussed with the patient about increased risk of bleeding Plan for exchange to tunneled hemodialysis catheter under MAC today Procedure, risks, benefits and alternatives have been discussed with the patient who wishes to proceed with surgery. 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
[2020-11-22 11:05] LABS: Glucose Point of Care 148 mg/dL (70-110)
--- NOTE | 2020-11-22 12:41 | P.ANESASSM_ITS ---
Pre-Anesthetic Assessment Pre-Anesthetic Assessment: Height/Weight: Height 1.7 m Weight 167.829 kg Temp Pulse Resp BP Pulse Ox 97.9 F 112 H 18 128/71 99 11/22/20 11:51 11/22/20 11:51 11/22/20 11:51 11/22/20 11:51 11/22/20 11:51 Preop Diagnosis: ESRD Proposed Procedure: Operation Date: 11/18/20 08:00 Proposed Procedures p Cardiac Catheterization(Not Applicable) - Ruddy Sanches MD Operation Date: 11/22/20 14:10 Proposed Procedures p Dialysis Catheter exchange(Not Applicable) - Hesham Corrales MD Familial anesthetic complications: none Was Beta Arsalan taken within 24 hours: Yes Last intake: > 8 hrs Social: Social History: No alcohol and No tobacco Airway: Cervical ROM: WNL MP: 4 Dentition: Other (no teeth) Pulmonary: Pulmonary: COPD Comments: pneumonia CV/HEM: CV/HEM: CAD, HTN and NM : Comments: kami Metabolic: Metabolic: DM and Morbid obesity Anesthetic Plan: ASA status: 4 Anesthesia: MAC Risk of > 500 ml blood loss (7ml/kg in children): No Meds/Allergies Current Medications: Current Medications Generic Name Dose Route Start Last Admin Trade Name Freq PRN Reason Stop Dose Admin Albuterol/Ipratrop ium 3 ml 11/15/20 21:00 11/22/20 09:19 Ipratropium-Albu terol 3 Ml Neb INHALATION 3 ml Q6H.RESPIRATORY S [facility] Administration Apixaban 5 mg 11/19/20 21:00 11/20/20 09:26 Apixaban 5 Mg Ta blet PO 5 mg BID@0900,2100 ARMINDA Administration Atorvastatin Calci um 80 mg 11/15/20 21:00 11/21/20 21:18 Atorvastatin 40 Mg Tablet PO 80 mg BEDTIME ARMINDA Administration Budesonide 0.5 mg 11/15/20 20:00 11/22/20 09:19 Budesonide 0.5 M g/2 Ml Neb INHALATION 0.5 mg BID ARMINDA Administration Ciprofloxacin HCl 500 mg 11/21/20 19:30 11/21/20 19:47 Ciprofloxacin 50 0 Mg Tablet PO 500 mg Q24H ARMINDA Administration Protocol Clopidogrel Bisulf ate 75 mg 11/15/20 09:00 11/22/20 09:26 Clopidogrel 75 M g Tablet PO 75 mg DAILY ARMINDA Administration Dextrose 50 ml 11/13/20 16:44 11/17/20 18:22 Dextrose 50% Syr gustavo 50 Ml IVP 50 ml PRN PRN Administration hypoglycemia prot ocol Protocol Ferrous Gluconate 324 mg 11/13/20 18:00 11/22/20 09:26 Ferrous Gluconat e 324 Mg Tablet PO 324 mg BIDWM ARMINDA Administration Folic Acid 1 mg 11/14/20 18:00 11/22/20 09:26 Folic Acid 1 Mg Tablet PO 1 mg BID ARMINDA Administration Gabapentin 200 mg 11/19/20 13:00 11/22/20 09:31 Gabapentin 100 M g Capsule PO Not Given QID [facility] Insulin Aspart 0 unit 11/14/20 18:00 11/22/20 07:56 Insulin Aspart 1 00 Unit/1 Ml SUBCUT Not Given WM&BEDTIME [facility] Protocol Levothyroxine Sodi um 25 mcg 11/14/20 09:00 11/22/20 09:25 Levothyroxine 25 Mcg Tablet PO 25 mcg DAILY ARMINDA Administration Levothyroxine Sodi um 200 mcg 11/14/20 09:00 11/22/20 09:26 Levothyroxine 20 0 Mcg Tablet PO 200 mcg DAILY [facility] Administration Metoprolol Tartrat e 50 mg 11/19/20 21:00 11/21/20 21:18 Metoprolol Tartr ate 50 Mg Tablet PO 50 mg BID@0900,2100 [facility] Administration Metronidazole 500 mg 11/21/20 21:00 11/22/20 09:26 Metronidazole 50 0 Mg Tablet PO 500 mg TID [facility] Administration Multivitamins Ther apeutic 1 tab 11/14/20 14:00 11/22/20 09:25 Multivitamin The rapeutic Tablet PO 1 tab DAILY [facility] Administration Ondansetron HCl 4 mg 11/13/20 16:25 11/14/20 10:33 Ondansetron 2 Mg /Ml Sdv 2 Ml IVP 4 mg Q6H PRN Administration NAUSEA AND VOMITI NG Pantoprazole Sodiu m 40 mg 11/14/20 09:00 11/22/20 09:[address] 40 Mg Tablet PO 40 mg DAILY ARMINDA Administration Phenytoin 200 mg 11/13/20 21:00 11/22/20 09:25 Phenytoin Er 100 Mg Capsule PO 200 mg BID ARMINDA Administration Polyethylene Glyco l 17 gm 11/16/20 09:30 11/22/20 10:38 Polyethylene Gly col 3350 Pkt 17 Gm PO Not Given DAILY ARMINDA Thiamine Mononitra te 100 mg 11/14/20 14:00 11/22/20 09:26 Thiamine 100 Mg Tablet PO 100 mg DAILY ARMINDA Administration PFSH Anesthesia PFSH: Medical History CAD (coronary artery disease) Diabetes Dyslipidemia PVD (peripheral vascular disease) Renal insufficiency Venous stasis Surgical History History of ankle surgery History of cataract surgery History of cholecystectomy History of heart artery stent Social History Smoking and tobacco status: never smoked Marital status: / Data Anesthesia CBC & Chem 7: 11/22/20 04:35 11/22/20 04:35 Other Labs: Laboratory Results - last 48 hr 11/20/20 11/20/20 11/21/20 16:52 20:04 04:19 WBC 15.1 H RBC 2.81 L Hgb 9.0 L Hct 28.2 L MCV 100.4 H MCH 32.0 MCHC 31.9 RDW 14.2 Plt Count 291 MPV 10.7 H Neut % (Auto) 62.9 Lymph % (Auto) 14.6 [place] % (Auto) 7.9 Eos % (Auto) 2.6 Baso % (Auto) 0.9 Neut # (Auto) 9.52 H Lymph # (Auto) 2.2 [place] # (Auto) 1.2 H Eos # (Auto) 0.4 Baso # (Auto) 0.1 Nucleated RBC % (auto) 0.3 Nucleated RBCs # 0.1 Sodium Potassium Chloride Carbon Dioxide Anion Gap BUN Creatinine GFR Calculation Glucose POC Glucose 164 H 143 H Calculated Osmolality Calcium Magnesium Total Bilirubin AST ALT Alkaline Phosphatase Total Protein Albumin Globulin 11/21/20 11/21/20 11/21/20 04:19 06:49 11:20 WBC RBC Hgb Hct MCV MCH MCHC RDW Plt Count MPV Neut % (Auto) Lymph % (Auto) [place] % (Auto) Eos % (Auto) Baso % (Auto) Neut # (Auto) Lymph # (Auto) [place] # (Auto) Eos # (Auto) Baso # (Auto) Nucleated RBC % (auto) Nucleated RBCs # Sodium 130 L Potassium 4.4 Chloride 94 L Carbon Dioxide 24 Anion Gap 16.4 BUN 36 H Creatinine 3.7 H GFR Calculation Not Reportable Glucose 111 POC Glucose 117 H 105 Calculated Osmolality 279 L Calcium 7.7 L Magnesium 2.2 Total Bilirubin 0.3 AST 27 ALT < 5 Alkaline Phosphatase 165 H Total Protein 6.0 L Albumin 2.4 L Globulin 3.6 11/21/20 11/21/20 11/22/20 16:01 20:25 04:35 WBC 14.3 H RBC 2.75 L Hgb 8.7 L Hct 28.2 L MCV 102.5 H MCH 31.6 MCHC 30.9 RDW 14.8 Plt Count 310 MPV 10.3 Neut % (Auto) 66.9 Lymph % (Auto) 14.1 [place] % (Auto) 7.6 Eos % (Auto) 2.7 Baso % (Auto) 0.6 Neut # (Auto) 9.55 H Lymph # (Auto) 2.0 [place] # (Auto) 1.1 H Eos # (Auto) 0.4 Baso # (Auto) 0.1 Nucleated RBC % (auto) 0.4 Nucleated RBCs # 0.1 Sodium Potassium Chloride Carbon Dioxide Anion Gap BUN Creatinine GFR Calculation Glucose POC Glucose 140 H 140 H Calculated Osmolality Calcium Magnesium Total Bilirubin AST ALT Alkaline Phosphatase Total Protein Albumin Globulin 11/22/20 11/22/20 11/22/20 04:35 06:46 10:55 WBC RBC Hgb Hct MCV MCH MCHC RDW Plt Count MPV Neut % (Auto) Lymph % (Auto) [place] % (Auto) Eos % (Auto) Baso % (Auto) Neut # (Auto) Lymph # (Auto) [place] # (Auto) Eos # (Auto) Baso # (Auto) Nucleated RBC % (auto) Nucleated RBCs # Sodium 132 L Potassium 4.2 Chloride 96 L Carbon Dioxide 24 Anion Gap 16.2 BUN 25 H Creatinine 3.4 H GFR Calculation Not Reportable Glucose 108 POC Glucose 159 H 148 H Calculated Osmolality 279 L Calcium 7.5 L Magnesium Total Bilirubin 0.3 AST 27 ALT < 5 Alkaline Phosphatase 172 H Total Protein 5.9 L Albumin 2.3 L Globulin 3.6 Cardiac Studies: No Data to Display
--- NOTE | 2020-11-22 12:57 | PC.NURSE ---
Pt left floor to go to surgery for tunneled dialysis port.
[2020-11-22] MEDS: sodium chloride 0.9% 1,000 ML 30 ML IV (13:19)
[2020-11-22] MEDS: lidocaine 2% INJ 20 mL INJECTION (13:46)
[2020-11-22] MEDS: heparin, porcine 1,000 unit/mL INJ 10 mL 6000 UNIT HE (13:49)
--- NOTE | 2020-11-22 14:10 | PM.OP ---
Operative Report Date of procedure: November 22, 2020 Pre-op Diagnosis: ESRD with temporary dialysis catheter right internal jugular vein Post-op diagnosis: same Procedure Done: Exchange of temporary dialysis catheter to 16 Lithuanian 23 cm long tunneled AshSplit hemodialysis catheter Fluoroscopic guidance and interpretation for placement of the catheter Pathology: none sent Surgeon: Hesham Corrales Anesthesia: MAC Condition: stable Disposition: PACU Procedure: The patient was taken to the operating room and placed under MAC after IV antibiotic had been administered. The chest and neck were prepped and draped in a sterile manner bilaterally. Under fluoroscopy the location for the dialysis catheter was marked. Using 11 blade a skin incision was extended at the vein access site as well as the previously marked location on the right chest wall. The dialysis catheter was attached to the tunneler and passed subcutaneously, exiting at the venous access site of the temporary dialysis catheter. The temporary catheter was cut, guidewire passed under fluoroscopy and the distal portion of the catheter was removed. Serial dilators were passed over the guidewire under fluoroscopy. Finally the dilator peel-away sheath was passed over the guidewire and the inner dilator and guidewire was removed and the dialysis catheter was introduced into the right internal jugular vein as the peel-away sheath was removed. The tip of the catheter was noted to be in the right atrium. Both ports of the catheter leonard blood and flushed easily. The catheter was sutured to the skin using 2-0 Prolene and the venous access site was closed with 4-0 Monocryl and Dermabond. A total of 5 mL of 1:10,000 heparin was injected into the 2 ports under dialysis catheter. Surgicel was placed at the catheter entry site as well as the neck incision since the patient was on Plavix and Eliquis would need to be restarted. Pressure dressings were applied. Fluoroscopic guidance and interpretation for passage of guidewire and dilator and placement of catheter in the right atrium. Patient tolerated the procedure well and she was transferred to recovery room in stable condition.
--- NOTE | 2020-11-22 14:28 | ANE.PACU2 ---
Inpatient post-anesthesia follow up: Airway intact: Yes Vital signs: Temperature 97 F Pulse Rate [Monito r] 100 Pulse Rate 122 Respiratory Rate 18 Blood Pressure [Ri ght Arm] 139/68 Blood Pressure 93/71 Pulse Oximetry 97 Oxygen Delivery Me thod Nasal Cannula Oxygen Flow Rate 3 Fraction of Inspir ed Oxygen Hydration adequate: Yes Nausea and vomiting: No Pain level: 2 Mental status: Baseline
--- NOTE | 2020-11-22 14:49 | P.PN_ITS ---
Subjective Subjective: Interval history: Feels well with no new issues. Just got tunneled line placement. No shortness of breath. Some LE edema. Chest is a little sore. Acevedo still in Medications: Reviewed: Yes Vitals/I&O/Wt Last Vital Signs Temp 97.6 F 11/22/20 14:25 Pulse 107 H 11/22/20 14:25 Resp 22 H 11/22/20 14:25 BP 118/65 11/22/20 14:25 Pulse Ox 99 11/22/20 14:25 11/21/20 11/22/20 11/22/20 22:59 06:59 14:59 Intake Total 410 / 1346.5 50 / 50 Output Total 0 / 0 50 / 50 20 / 20 Balance 410 / 1346.5 -50 / 1296.5 30 / 30 Weight last 48 hrs Weight 167.829 kg Weight 167.376 kg Physical Exam Narrative: EXAM NARRATIVE: Constitutional: Awake, comfortable HEENT: Wet mucosa, no jvp, non icteric Lungs: Bilaterally clear without discernible wheeze, rales in all lung zones CVS: S1 S2, no murmurs Abdo: Soft, BS ok Ext 4: Minimal edema, peripheral perfusion with no cyanosis Neurological: Grossly non-focal Urinary Catheter Management^: Acevedo: Cath Placed During This Visit: yes Reason for Continuing Indwelling Catheter: Accurate Measurement of Urinary Output in Critically Ill Patients Urinary Catheter Date of Insertion: 11/13/20 Urinary Catheter Time of Insertion: 14:58 Data : 11/22/20 04:35 11/22/20 04:35 A&P Additional A&P Information 1. Renal failure Nonrecovery of ischemic/infectious ATN seen on hospitalization. S/p tunneled line For dialysis tomorrow Remains oliguric, ok to DC Kristina workforce investment act career manager to set up outpatient dialysis Dose medication for GFR less than 15 on hemodialysis. 2. Ileus and colitis Did receive antibiotics initially and remains on Primaxin for this. 3. Atrial fibrillation Atrial fibrillation with RVR, on metoprolol 4. Chemistry Minor noncritical aberration, continue to monitor. 5. OK for DC when corrections caseworker set up outpatient HD Corbin Sánchez MD Nephrology [phone] Patient seen and examined via telemedicine, with the assistance of the bedside RN > 25 min spent in evaluation and mgmt of patient Attestations Medical Necessity Statement*: Eval for renal failure Coding Level of Care Code Acute Circuit Breaker Mechanic for Sosa Bates
[2020-11-22] MEDS: metoprolol tartrate 50 mg Tablet PO ×2 (16:18→22:31)
[2020-11-22 16:19] LABS: Glucose Point of Care 126 mg/dL (70-110)
[2020-11-22] MEDS: gabapentin 100 mg Capsule 200 MG PO ×2 (16:19→22:30)
--- NOTE | 2020-11-22 16:30 | PC.NURSE ---
Received orders from [facility] to give metoprolol that was held for morning dose now, and readjust 21:00 dose to 23:00.
[2020-11-22 20:17] LABS: Glucose Point of Care 185 mg/dL (70-110)
--- NOTE | 2020-11-22 21:36 | PM.PN ---
Subjective Subjective: Interval history: Today she reports she is doing well. Denies any complaints. Denies trouble breathing. Denies chest pain or pressure. Awaiting placement of hemodialysis catheter. No further eructation, no nausea, no vomiting. Has been having bowel movements daily now. Vitals/I&O/Wt Last Vital Signs Temp 98 F 11/22/20 20:00 Pulse 117 H 11/22/20 20:03 Resp 32 H 11/22/20 20:00 BP 118/89 11/22/20 20:00 Pulse Ox 98 11/22/20 20:00 11/22/20 11/22/20 11/22/20 06:59 14:59 22:59 Intake Total 50 / 50 120 / 170 Output Total 50 / 50 50 / 70 Balance -50 / 1296.5 30 / 30 70 / 100 Weight last 48 hrs Weight 167.829 kg Weight 167.376 kg Physical Exam Const: COMMON NORMALS: no acute distress, patient oriented x3 and alert GENERAL APPEARANCE: cooperative and comfortable NUTRITIONAL APPEARANCE: obese morbidly obese ORIENTATION/CONSCIOUSNESS: Yes awake OTHER: Up in chair. Pleasant, conversant. In good spirits. HENMT: COMMON NORMALS: oropharynx normal Neck/C-Spine: COMMON NORMALS: no JVD Resp: COMMON NORMALS: normal respiratory effort and clear to auscultation bilaterally AUSCULTATION: clear to auscultation bilaterally Cardio: COMMON NORMALS: no JVD, S1 normal heart sound present, S2 normal heart sound present and No murmurs present (Cardio) RATE: tachycardic RHYTHM: abnormal rhythm irregularly irregular HEART SOUNDS: S1 normal heart sound present and S2 normal heart sound present GI: COMMON NORMALS: Normal to inspection, nondistended, normoactive bowel sounds present, Soft to palpation and non-tender AUSCULTATION: Yes normoactive bowel sounds PALPATION: Yes Soft to palpation Extremity: COMMON NORMALS: no joint enlargement and no pedal edema Neuro: COMMON NORMALS: patient oriented x3 and moves all extremities SENSORIUM/ORIENTATION: Yes alert Skin: COMMON NORMALS: no rashes or lesions noted GENERAL SKIN EXAM: no rashes or lesions noted Urinary Catheter Management^: Acevedo: Cath Placed During This Visit: yes, but has since been removed by the nurse Reason for Continuing Indwelling Catheter: Not indwelling catheter Urinary Catheter Date of Insertion: 11/13/20 Urinary Catheter Time of Insertion: 14:58 Date Urinary Catheter Removed: 11/22/20 Time Urinary Catheter Discontinued: 19:00 Data : 11/22/20 04:35 11/22/20 04:35 Micro: Microbiology 11/17/20 20:03 Blood Culture - Final Blood NO GROWTH AFTER 5 DAYS 11/17/20 20:00 Blood Culture - Final Blood NO GROWTH AFTER 5 DAYS A&P Assessment and plan (1) Ljybi-mi-ueluovo kidney injury: Tunneled HD catheter placed today. Eliquis on hold. HD tomorrow. Will need outpatient HD. Continues on hemodialysis support as needed due to TIFFANY on CKD. Usually follows with Dr. Hendricks. Status: Acute Qualifiers: Acute renal failure type: unspecified Chronic kidney disease stage: stage 4 (severe) Qualified Code(s): N17.9 - Acute kidney failure, unspecified; N18.4 - Chronic kidney disease, stage 4 (severe) (2) Colitis: Ileus appears to be resolving. Has had a bowel movement yesterday and today. Feeling much better. Tolerating oral intake. Complete antibiotic course with Cipro, Flagyl. At home states take stool softeners to help her have daily bowel movements. Continue mobilization. [facility]charge [facility] after discharge for rehabilitation due to physical deconditioning. Status: Acute (3) Afib: Eliquis on hold due to need for placement of hemodialysis catheter. Discussed with cardiology. Beta-efe held prior to procedure. Resumed in the afternoon. Continue to monitor heart rates. If A. fib with RVR persist, additional treatment with amiodarone may be considered per discussion with cardiology. Up titration of beta-efe limited by blood pressure. Digoxin may not be a good choice given renal failure. Status: Acute Qualifiers: Atrial fibrillation type: unspecified Qualified Code(s): I48.91 - Unspecified atrial fibrillation (4) Sepsis: No additional growth on cultures. Continue Cipro and Flagyl for colitis which appears to be resolving. Ileus resolving. She is feeling much better. Some persistence of leukocytosis. Afebrile. 07/17 coag negative staph from 11/13, although suspected contamination. 11/17 preliminary blood cultures negative. Status: Acute (5) Acute non-ST elevation myocardial infarction (NSTEMI): Status post coronary angiography and stent placement to LAD. Continue aspirin, Plavix, statin, Toprol. Echocardiogram with EF 40%, diffuse hypokinesia of septum, anteroseptal, inferior wall and LV apex. Mild increased LA size, mild MR. Status: Acute (6) Renal insufficiency: Status: Acute (7) Status post insertion of drug-eluting stent into left anterior descending (LAD) artery: Status: Acute (8) 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: Status: Acute (9) Morbid obesity: Status: Acute (10) Diabetes: Continue sliding scale insulin at this time. Long-acting insulin has been held. Status: Acute (11) CAD (coronary artery disease): Status: Acute Attestations Medical Necessity Statement*: Continue admission for assessment management following placement of hemodialysis catheter, hemodialysis tomorrow, will need to resume anticoagulation when safe in the setting of continued Plavix, monitoring after de-escalation of antibiotics, optimization of rate control of A. fib with RVR, discharge planning and arrangements. Coding Level of Care Code Acute Client Technical Specialist for [facility] Fwd Diagnoses Mszet-pm-wotcgty kidney injury N17.9; N18.4 Acute renal failure type: unspecified Chronic kidney disease stage: stage 4 (severe) Colitis K52.9 Afib I48.91 Atrial fibrillation type: unspecified Sepsis A41.9 Acute non-ST elevation myocardial infarction (NSTEMI) I21.4 Renal insufficiency N28.9 Status post insertion of drug-eluting stent into left anterior descending (LAD) artery Z95.5 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 B96.23 Morbid obesity E66.01 Diabetes E11.9 CAD (coronary artery disease) I25.10
[2020-11-22] MEDS: atorvastatin 40 mg Tablet 80 MG PO (22:30)
[2020-11-22] MEDS: ciprofloxacin 500 mg Tablet PO (22:30)
[2020-11-23] MEDS: ipratropium-albuterol 3 mL Neb INHALATION (02:56)
[2020-11-23 02:57] VITALS: PULSE 110; RESP 20; O2SAT 98
[2020-11-23 03:00] VITALS: PULSE 112
[2020-11-23 04:00] VITALS: BP 97/66; PULSE 112; RESP 26; TEMP 36.6; O2SAT 99
[2020-11-23 04:35] LABS: Basophils # 0.1 10^3/uL (0.0-0.1); Basophils % 0.7 %; Eosinophils # 0.2 10^3/uL (0.0-0.8); Eosinophils % 1.7 %; Hematocrit 28.5 % (37.0-47.0); Hemoglobin 8.6 g/dL (11.5-15.3); Lymphocytes # 1.4 10^3/uL (0.8-4.8); Lymphocytes % 10.4 %; Mean Corpuscular HGB Conc 30.2 g/dL (30.0-36.0); Mean Corpuscular Hemoglobin 31.6 pg (28.0-34.0); Mean Corpuscular Volume 104.8 fL (81-99); Mean Platelet Volume 10.4 fL (7.4-10.4); Monocytes # 0.9 10^3/uL (0.2-0.9); Monocytes % 6.4 %; Neutrophils # 10.22 10^3/uL (1.8-7.7); Neutrophils % 74.7 %; Nucleated Red Blood Cells % 0.2 %; Platelet Count 309 10^3/cmm (130-400); Red Blood Count 2.72 10^6/uL (4.1-5.3); Red Cell Distribution Width 14.9 % (12.1-15.1); White Blood Count 13.7 10^3/uL (4.0-10.0)
[2020-11-23 04:50] LABS: Alanine Aminotransferase < 5 U/L (0-33); Albumin Level 2.4 g/dL (3.5-5.2); Alkaline Phosphatase 175 IU/L (35-105); Aspartate Amino Transferase 28 U/L (0-32); Blood Urea Nitrogen 31 mg/dL (8-23); Calcium 7.1 mg/dL (8.5-10.5); Carbon Dioxide 23 mmol/L (22-29); Chloride 92 mmol/L (98-107); Globulin 3.8 g/dL (1.3-4.6); Glucose 130 mg/dL (65-115); Osmolality Calculated 272 mOsm/kg (285-295); Sodium 127 mmol/L (136-145); Total Bilirubin 0.3 mg/dL (0.15-1.2); Total Protein 6.2 g/dL (6.6-8.7)
[2020-11-23 05:54] VITALS: PULSE 91
--- NOTE | 2020-11-23 07:03 | PC.NURSE ---
Received report from CHEYENNE Stephens. Patient is off the unit for dialysis.
[2020-11-23 10:47] VITALS: BP 140/81; PULSE 75; RESP 18; O2SAT 96
[2020-11-23] MEDS: gabapentin 100 mg Capsule 200 MG PO ×2 (10:49→14:21)
[2020-11-23] MEDS: levothyroxine 200 mcg Tablet PO (10:49)
[2020-11-23] MEDS: multivitamin therapeutic Tablet 1 TAB PO (10:49)
[2020-11-23] MEDS: metoprolol tartrate 50 mg Tablet PO (10:50)
[2020-11-23] MEDS: folic acid 1 mg Tablet PO (10:50)
[2020-11-23] MEDS: levothyroxine 25 mcg Tablet PO (10:50)
[2020-11-23] MEDS: phenytoin ER 100 mg Capsule 200 MG PO (10:50)
[2020-11-23] MEDS: clopidogrel 75 mg Tablet PO (10:50)
[2020-11-23] MEDS: pantoprazole DR 40 mg Tablet PO (10:51)
[2020-11-23] MEDS: metroNIDAZOLE 500 MG Tablet PO ×2 (10:53→14:21)
[2020-11-23] MEDS: thiamine 100 mg Tablet PO (10:53)
--- NOTE | 2020-11-23 11:44 | P.PN_ITS ---
Subjective Subjective: Interval history: seen during dialysis, complains of soreness around tunneled dialysis catheter and back discomfort (existed since admission) Medications: Reviewed: Yes Vitals/I&O/Wt Last Vital Signs Temp 97.9 F 11/23/20 04:00 Pulse 75 11/23/20 10:47 Resp 18 11/23/20 10:47 BP 140/81 11/23/20 10:47 Pulse Ox 96 11/23/20 10:47 11/22/20 11/23/20 11/23/20 22:59 06:59 14:59 Intake Total 407.5 / 457.5 100 / 557.5 476 / 476 Output Total 50 / 70 Balance 357.5 / 387.5 100 / 487.5 476 / 476 Weight last 48 hrs Weight 167.965 kg Weight 167.829 kg Physical Exam Const: COMMON NORMALS: no acute distress GENERAL APPEARANCE: cooperative Neck/C-Spine: OTHER: tunneled right IJ dialysis catheter Extremity: GENERAL: Yes edema (trace) Urinary Catheter Management^: Acevedo: Cath Placed During This Visit: yes, but has since been removed by the nurse Reason for Continuing Indwelling Catheter: Not indwelling catheter Urinary Catheter Date of Insertion: 11/13/20 Urinary Catheter Time of Insertion: 14:58 Date Urinary Catheter Removed: 11/22/20 Time Urinary Catheter Discontinued: 19:00 Data : 11/23/20 04:14 11/23/20 04:14 Other Labs: albumin 2.4, corrected calcium 8.3 Micro: Microbiology 11/13/20 10:45 Stool Lactoferrin - Final Stool Enteric Pathogens (PCR) - Preliminary Parasite Antigen Panel - Final C.difficile Toxin B Gene (PCR) - Final 11/17/20 20:03 Blood Culture - Final Blood NO GROWTH AFTER 5 DAYS 11/17/20 20:00 Blood Culture - Final Blood NO GROWTH AFTER 5 DAYS A&P Additional A&P Information 1. Acute kidney injury, minimal urine output, continues HD, ultimately will be MWF 2. Colits/pneumonia, improving 3. NSTEMI s/p stent LAD, cardiomyopathy 4. Obesity, CKD, DM, hypertension 5. Anemia, will be managed with epogen and iron at dialysis Recommend: Continue HD, next treatment dependent on discharge planning. Outpatient supervisor mirror fabrication Dr Hendricks. Attestations Medical Necessity Statement*: per primary service Coding Level of Care Code Acute Tool And Die Engineer for Sosa Bates
[2020-11-23 11:56] LABS: Glucose Point of Care 131 mg/dL (70-110)
--- NOTE | 2020-11-23 13:26 | PC.OT ---
OT TREATMENT ATTEMPTED TWICE TODAY. PATIENT ASKED FOR ASSISTANCE MOVING UP IN BED BUT DECLINES FURTHER TREATMENT. STATES, NO THERAPY TODAY, I'M TOO TIRED.
[2020-11-23 15:35] VITALS: BP 106/71; PULSE 88; RESP 18; TEMP 37.1; O2SAT 98
--- NOTE | 2020-11-23 17:30 | PC.NURSE ---
Patient left via wheelchair by SKYLERJ, nurse escorted patient out. Report was called to chapito at [facility] prior to patient leaving.
--- NOTE | 2020-11-23 22:42 | PM.DCS ---
Discharge Providers Date of Admission: 11/13/20 16:25 Date of Discharge: November 23, 2020 Attending Provider at Admission: Rashaad Gutierrez MD Attending Provider at Discharge: Woody Boykin Primary Care Provider: Pascual Kay MD Diagnoses at Discharge Discharge Diagnosis (1) Issdt-rr-wfxruhl kidney injury: Status: Acute Qualifiers: Acute renal failure type: unspecified Chronic kidney disease stage: stage 4 (severe) Qualified Code(s): N17.9 - Acute kidney failure, unspecified; N18.4 - Chronic kidney disease, stage 4 (severe) (2) Colitis: Status: Acute (3) Afib: Status: Acute Qualifiers: Atrial fibrillation type: unspecified Qualified Code(s): I48.91 - Unspecified atrial fibrillation (4) Sepsis: Status: Acute (5) Acute non-ST elevation myocardial infarction (NSTEMI): Status: Acute (6) Renal insufficiency: Status: Acute (7) Status post insertion of drug-eluting stent into left anterior descending (LAD) artery: Status: Acute (8) 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: Status: Acute (9) Morbid obesity: Status: Acute (10) Diabetes: Status: Acute (11) CAD (coronary artery disease): Status: Acute Reason for Visit Reason for Visit: SOB, VOMIT Hospital Course Hospital Course Pleasant 75-year-old lady with CAD, DM 2, CKD, HLD, atrial fibrillation, morbid obesity was admitted for assessment and treatment of sepsis, with abdominal pain, community-acquired pneumonia, hypoxia, with finding of colitis, treated with broad-spectrum antibiotic. Shiga toxin identified in stool studies. Treated initially with Zosyn and vancomycin, subsequently with Primaxin and finally with ciprofloxacin and Flagyl which she will complete antibiotic course with. [facility] is working with her family to identify possible source of the infection. Completed course of antibiotic for community-acquired pneumonia. Blood culture with / coagulase-negative staph on 11/13, suspected contamination. Blood cultures from 11/17 without growth. Hospital course was complicated by non-STEMI, for which he underwent coronary angiography with finding of significant stenosis of LAD which was stented. Continues on Plavix. Continued on anticoagulation for A. fib. Hospitalization complicated by atrial fibrillation with RVR which responded to amiodarone drip, subsequently maintaining heart rates with metoprolol titrate twice daily 50 mg. Please decrease Eliquis doseto 2.5 mg twice daily due to renal failure. Hospitalization also complicated by acute kidney injury on chronic kidney disease requiring hemodialysis, with slow to improve renal failure. Received hemodialysis in the hospital initially via temporary catheter, subsequently anticoagulation held with tunneled catheter placed and hemodialysis today. Anticoagulation can be resumed per surgery. She will continue outpatient hemodialysis on MWF schedule. Follow-up with nephrology regarding TIFFANY on CKD as well as anemia. Hospitalization also complicated by transient ileus with abdominal distention, tenderness, irritation, poor oral intake, lack of bowel movements. This has been resolving, and she has had several bowel movements over the last few days. Irritation resolving. Abdominal discomfort resolved. She is tolerating oral intake, low appetite is not the best. Supplements meals with Glucerna only once daily due to renal disease. With resolution of sepsis, improvement in condition insulin sensitivity appears to have significantly improved. Long-acting insulin is currently stopped. She continues on sliding scale insulin. Please continue to reassess diabetes control. Due to physical deconditioning with prolonged hospitalization, multiple comorbidities as well as morbid obesity she was interested in rehabilitation at SNF prior to discharge. Physical Exam Const: COMMON NORMALS: no acute distress, patient oriented x3 and alert GENERAL APPEARANCE: cooperative and comfortable NUTRITIONAL APPEARANCE: obese morbidly obese ORIENTATION/CONSCIOUSNESS: Yes awake OTHER: She is tired after dialysis, but otherwise is doing well. Denies pain or discomfort. Had bowel movement yesterday and today, bowel movements no becoming loose, bowel regimen deescalated. HENMT: COMMON NORMALS: oropharynx normal Neck/C-Spine: COMMON NORMALS: no JVD Resp: COMMON NORMALS: normal respiratory effort and clear to auscultation bilaterally AUSCULTATION: clear to auscultation bilaterally Cardio: COMMON NORMALS: no JVD, S1 normal heart sound present, S2 normal heart sound present and No murmurs present (Cardio) RATE: tachycardic RHYTHM: abnormal rhythm irregularly irregular HEART SOUNDS: S1 normal heart sound present and S2 normal heart sound present GI: COMMON NORMALS: Normal to inspection, nondistended, normoactive bowel sounds present, Soft to palpation and non-tender AUSCULTATION: Yes normoactive bowel sounds PALPATION: Yes Soft to palpation Extremity: COMMON NORMALS: no joint enlargement and no pedal edema Neuro: COMMON NORMALS: patient oriented x3 and moves all extremities SENSORIUM/ORIENTATION: Yes alert Skin: COMMON NORMALS: no rashes or lesions noted GENERAL SKIN EXAM: no rashes or lesions noted Urinary Catheter Management^: Acevedo: Cath Placed During This Visit: yes, but has since been removed by the nurse Reason for Continuing Indwelling Catheter: Not indwelling catheter Urinary Catheter Date of Insertion: 11/13/20 Urinary Catheter Time of Insertion: 14:58 Date Urinary Catheter Removed: 11/22/20 Time Urinary Catheter Discontinued: 19:00 Discharge Data Data Completed and Pending: Completed Studies During Hospitalization Category Date Time Status CT abdomen pelvis w con* [id number] Stat Cat Scan 11/13/20 09:[address] abdomen pelvis wo con [id number] Rout ine Cat Scan 11/16/20 08:[address] chest wo con 7 1250 Urgent Cat Scan 11/13/20 17:24 Completed XR abdomen 1V* 74 018 Routine Exams 11/16/20 10:30 Completed XR chest 1V cole ble [id number] Q48H Exams 11/14/20 06:00 Completed XR chest 1V cole ble [id number] Stat Exams 11/13/20 09:32 Completed XR chest 1V cole ble [id number] Stat Exams 11/15/20 15:36 Completed CV echo complete* [id number] Routine Ultrasound 11/15/20 06:00 [place] [id number] Routin e Ultrasound 11/14/20 16:43 Completed Pending at discharge Category Date Time Status ELECTRICIAN SECOND request for service Routin e Exams 11/18/20 07:58 Taken Clostridioides Di fficile PCR Routin e Lab 11/13/20 10:45 Results Enteric Bacterial Panel by PCR Rout ine Lab 11/13/20 10:45 Results Enteric Parasite Panel by PCR Routi ne Lab 11/13/20 10:45 Results Lactoferrin Routi ne Lab 11/13/20 10:45 Results Miscellaneous Daja t Routine Lab 11/17/20 10:45 Received Labs from last 24 hours 11/23/20 11/23/20 11/23/20 10:45 04:14 04:14 WBC 13.7 H RBC 2.72 L Hgb 8.6 L Hct 28.5 L MCV 104.8 H MCH 31.6 MCHC 30.2 RDW 14.9 Plt Count 309 MPV 10.4 Neut % (Auto) 74.7 Lymph % (Auto) 10.4 [place] % (Auto) 6.4 Eos % (Auto) 1.7 Baso % (Auto) 0.7 Neut # (Auto) 10.22 H Lymph # (Auto) 1.4 [place] # (Auto) 0.9 Eos # (Auto) 0.2 Baso # (Auto) 0.1 Nucleated RBC % (a uto) 0.2 Nucleated RBCs # 0.0 Sodium 127 L Potassium 4.0 Chloride 92 L Carbon Dioxide 23 Anion Gap 16.0 BUN 31 H Creatinine 4.3 H GFR Calculation Not Reportable Glucose 130 H POC Glucose 131 H Calculated Osmolal ity 272 L Calcium 7.1 L Total Bilirubin 0.3 AST 28 ALT < 5 Alkaline Phosphata se 175 H Total Protein 6.2 L Albumin 2.4 L Globulin 3.8 Vitals: Last Vital Signs Temp 98.7 F 11/23/20 15:35 Pulse 88 11/23/20 15:35 Resp 18 11/23/20 15:35 BP 106/71 11/23/20 15:35 Pulse Ox 98 11/23/20 15:35 Discharge Plan Discharge Patient Disposition: Xfer SNF Condition: Stable Prescriptions: New atorvastatin 40 mg Tablet 80 mg PO BEDTIME Qty: 60 RF: 0 bisacodyl 10 mg Suppository 10 mg IL PRN PRN (Reason: Constipation) Qty: 30 RF: 0 clopidogrel 75 mg Tablet 75 mg PO DAILY Qty: 30 RF: 0 ciprofloxacin HCl 500 mg Tablet 500 mg PO Q24H Qty: 4 RF: 0 ferrous gluconate 324 mg (37.5 mg iron) Tablet 324 mg PO EVERY OTHER DAY Qty: 14 RF: 0 polyethylene glycol 3350 17 gram Powder In Packet 17 g PO DAILY PRN (Reason: Constipation) Qty: 30 RF: 0 metronidazole 500 mg Tablet 500 mg PO TID Qty: 12 RF: 0 metoprolol tartrate 50 mg Tablet 50 mg PO BID@0900,2100 Qty: 60 RF: 0 Continued phenytoin sodium extended 100 mg capsule 200 mg PO BID RF: 0 levothyroxine 25 mcg tablet 25 mcg PO DAILY RF: 0 pantoprazole 40 mg tablet,delayed release (DR/EC) 40 mg PO DAILY RF: 0 calcitriol 0.5 mcg capsule 0.5 mcg PO DAILY RF: 0 levothyroxine 200 mcg tablet 200 mcg PO DAILY RF: 0 insulin aspart U-100 [Novolog Flexpen U-100 Insulin] 100 unit/mL (3 mL) insulin pen See Rx Instructions .ROUTE .COMPLEX RF: 0 gabapentin 800 mg Tablet 800 mg PO QID RF: 0 Changed Eliquis 5 mg tablet 2.5 mg PO BID Qty: 0 RF: 0 Discontinued furosemide 40 mg tablet 40 mg PO DAILY RF: 0 glimepiride 4 mg tablet 4 mg PO DAILY RF: 0 pravastatin 20 mg tablet 20 mg PO DAILY RF: 0 Levemir FlexTouch U-100 Insuln 100 unit/mL (3 mL) insulin pen 60 unit SUBCUT BID RF: 0 amlodipine 10 mg Tablet 10 mg PO DAILY Qty: 30 RF: 0 metoprolol succinate 50 mg tablet extended release 24 hr 50 mg PO DAILY RF: 0 losartan 50 mg tablet 50 mg PO DAILY RF: 0 chlorthalidone 25 mg Tablet 25 mg PO DAILY RF: 0 potassium chloride 10 mEq tablet,ER particles/crystals 10 meq PO DAILY RF: 0 Discharge Orders: Discharge Order (Routine); Ordered 11/23/20 Ordered By: Woody Boykin Referrals: Dedrick Hendricks MD [Referring] - 1 week (TIFFANY on CKD, anemia) Antonietta Jo MD [Physician] - 1 month Pascual Kay MD [Primary Care Provider] - 4-7 days Laury Silver FNP [Nurse Practitioner] - 1 week (CAD, s/p PCI, stent) Discharge Diet: As Directed Discharge Activity: Increase activity as tolerated, As per PT/OT instructions and Oxygen as instructed Patient Instructions: Ciprofloxacin (By mouth), Metoprolol (By mouth), Laxative, Stimulant (By mouth), Metronidazole (By mouth), Atorvastatin (By mouth), Clopidogrel (By mouth), Polyethylene Glycol 3350 (By mouth), Ascorbic Acid/Cyanocobalamin/Ferrous Fumarate (By mouth), Coronary Artery Disease (GEN), Atrial Fibrillation (GEN), Left Heart Catheterization (DC), Coronary Angioplasty (DC), Acute Kidney Injury (GEN), Diabetes Mellitus Type 2 in Adults (GEN), Tunneled Central Lines Adult (GEN), Hemodialysis for Acute Renal Failure (GEN), Infectious Colitis (GEN) Activity Restrictions/Additional Instructions: Continue renal, hemodialysis diet. Carbohydrate consistent. Please provide 1 Glucerna per day. Monitor blood glucose AC at bedtime. Please note long-acting insulin has been held at this time due to increased insulin sensitivity. Continue sliding scale for now only. Reassess if long-acting insulin becomes appropriate again. Continue 2 L nasal cannula oxygen, target saturation 95%. Wean off as tolerating. Continue outpatient SHAYY Quijano schedule starting 11/24. Follow-up with nephrology regarding how long to continue dialysis to monitor renal function recovery. Please recheck sodium level in 3 days. Do not limit sodium intake. Please do not discontinue Plavix under any circumstance until directed by cardiology. Please follow-up with cardiology in office for reassessment after NSTEMI, stent placement to LAD. Continue to monitor heart rates for atrial fibrillation. Continue eliquis. Please complete antibiotic course for colitis. Ileus is resolving. Avoid constipation. Discharge Attestations Time Spent in Discharge Care*: greater than 30 min Quality Metrics Clinical Quality Measures During this hospital stay, did patient experience: AMI Clinical Trial Participant: No Contraindication to aspirin (AMI): On Warfarin or Pradaxa at discharge Contraindication to statin: Statin prescribed Contraindication to PCI: PCI performed Coding Level of Care Code Acute [facility] FW [place] note Diagnoses Bowtn-nx-goeuria kidney injury N17.9; N18.4 Acute renal failure type: unspecified Chronic kidney disease stage: stage 4 (severe) Colitis K52.9 Afib I48.91 Atrial fibrillation type: unspecified Sepsis A41.9 Acute non-ST elevation myocardial infarction (NSTEMI) I21.4 Renal insufficiency N28.9 Status post insertion of drug-eluting stent into left anterior descending (LAD) artery Z95.5 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 B96.23 Morbid obesity E66.01 Diabetes E11.9 CAD (coronary artery disease) I25.10
== END 2020-11-23 19:22 | disposition skilled nursing facility (03) | DRG 853 ==
LOC: ER 13:14 → MEDSURG 18:55 → ICU 11-15 10:14 → CSU 11-20 13:53
PROVIDERS: Internal Medicine; Internal Medicine Cardiovascular Disease; Internal Medicine Nephrology; Surgery; Admitting Provider Student in an Organized Health Care Education/Training Program; Emergency Provider Family Medicine; PCP Family Medicine; Visit Provider Internal Medicine
PROC: 027035Z Dilation of Coronary Artery, One Artery with Two Drug-eluting Intraluminal Devices, Percutaneous Approach (ICD-10-PCS; principal; 2020-11-18 08:00)
PROC: 027035Z Dilation of Coronary Artery, One Artery with Two Drug-eluting Intraluminal Devices, Percutaneous Approach (ICD-10-PCS; 2020-11-18 08:00)
PROC: 0JH63XZ Insertion of Tunneled Vascular Access Device into Chest Subcutaneous Tissue and Fascia, Percutaneous Approach (ICD-10-PCS; principal; 2020-11-22 13:50)
DX: A41.9 Sepsis, unspecified organism (principal); I21.4 Non-ST elevation (NSTEMI) myocardial infarction; J18.9 Pneumonia, unspecified organism; N17.0 Acute kidney failure with tubular necrosis; Z68.43 Body mass index [BMI] 50.0-59.9, adult; N18.4 Chronic kidney disease, stage 4 (severe); E87.1 Hypo-osmolality and hyponatremia; K56.7 Ileus, unspecified; I25.10 Atherosclerotic heart disease of native coronary artery without angina pectoris; Z95.5 Presence of coronary angioplasty implant and graft; E66.01 Morbid (severe) obesity due to excess calories; E11.22 Type 2 diabetes mellitus with diabetic chronic kidney disease; I12.9 Hypertensive chronic kidney disease with stage 1 through stage 4 chronic kidney disease, or unspecified chronic kidney disease; E78.5 Hyperlipidemia, unspecified; G40.909 Epilepsy, unspecified, not intractable, without status epilepticus; K52.9 Noninfective gastroenteritis and colitis, unspecified; E11.51 Type 2 diabetes mellitus with diabetic peripheral angiopathy without gangrene; Z86.718 Personal history of other venous thrombosis and embolism; I25.2 Old myocardial infarction; I48.91 Unspecified atrial fibrillation; B96.23 Unspecified Shiga toxin-producing Escherichia coli [E. coli] [STEC] as the cause of diseases classified elsewhere; Z79.4 Long term (current) use of insulin
CPT/HCPCS: 36415; 36416; 51702; 71045; 71250; 74018; 74176; 74177; 77001; 80053; 80061; 80202; 80500; 81001; 82274; 82436; 82533; 82550; 82575; 82607; 82728; 82746; 82962; 83036; 83540; 83550; 83605; 83630; 83690; 83735; 83880; 84100; 84133; 84145; 84300; 84443; 84484; 85007; 85025; 85027; 85049; 85347; 85378; 85730; 86706; 86803; 87040; 87086; 87205; 87340; 87426; 87449; 87493; 87506; 87635; 87641; 87804; 90935; 93005; 93306; 93454; 93571; 93970; 94640; 94664; 96365; 96367; 96372; 96375; 97110; 97162; 97166; 97530; 99291; 99292; C1725; C1750; C1769; C1874; C1887; C1894; C9600; J0153; J0282; J0456; J0690; J0743; J0744; J1200; J1644; J1815 ×2; J1940; J2250; J2270; J2405; J2543; J3010; J3370; J3475; J3490; J7030; J7040; J7050; J7060; J7626; J7799; Q3014; Q9967; S0030

== ENCOUNTER 2020-11-29 19:50 | Emergency (ER) | payer MEDICARE, MEDICAID, SELFPAY ==
[2020-11-29 19:54] VITALS: BP 101/65; PULSE 122; RESP 24; TEMP 36.7; O2SAT 99; BMI 53.2
--- NOTE | 2020-11-29 19:58 | XRR_ITS ---
PROCEDURE INFORMATION: Exam: XR Chest Exam date and time: 11/29/2020 8:08 PM Age: 75 years old Clinical indication: Pain; Right-sided; Prior surgery; Surgery date: 6+ months; Surgery type: Stents , port RT. ; Additional info: Chest pain TECHNIQUE: Imaging protocol: XR of the chest. Views: 1 view. COMPARISON: CR XR chest 1V portable [id number] 11/15/2020 3:55 PM FINDINGS: Tubes, catheters and devices: A right-sided dual lumen catheter terminates over the expected brachiocephalic vein or superior SVC. Lungs: No focal consolidation. Minimal left basilar atelectasis. Pleural spaces: Unremarkable. No pleural effusion. No pneumothorax. Heart/Mediastinum: Mild enlargement of the cardiac shadow. Bones/joints: No acute abnormality. XR/XR chest 1V portable [id number] IMPRESSION: 1. Minimal left basilar atelectasis. 2. A dual lumen right sided venous catheter terminates over the expected brachiocephalic vein or superior SVC, which is higher than typical.
--- NOTE | 2020-11-29 19:58 | ECG_ITS ---
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 Measurements Intervals [place] Rate: 123 P: [place]: QRS: 23 QRSD: 126 T: 215 QT: 372 QTc: 533 Interpretive Statements ATRIAL FIBRILLATION WITH RAPID VENTRICULAR RESPONSE SEPTAL MYOCARDIAL INFARCTION , PROBABLY OLD [40+ ms Q WAVE IN V1/V2] ST DEVIATION AND MODERATE T-WAVE ABNORMALITY, CONSIDER ANTEROLATERAL ISCHEMIA [-0.1+ mV T WAVE IN V3-V6] ST DEVIATION AND MODERATE T-WAVE ABNORMALITY, CONSIDER INFERIOR ISCHEMIA [-0.1+ mV T WAVE IN II/aVF] Prolonged QTC, consider ischemia versus electrolyte imbalance/drug effect Compared to ECG 11/17/2020 12:27:09 T-wave abnormality now present.Possible ischemia now present Aberrant conduction of supraventricular beat(s) no longer present Ventricular premature complex(es) no longer present.Myocardial infarct finding still present Electronically Signed On 11-30-2020 10:14:07 CDT by Antonietta Jo M.D. [id number]
--- NOTE | 2020-11-29 20:22 | ED_ITS ---
HPI - Arrhythmia/Palpitations General: Chief Complaint: Arrhythmia/Palpitations Stated Complaint: ABDNORMAL HEART RATE Time Seen by Provider: 11/29/20 19:57 History of Present Illness: HPI narrative: Patient presents from dialysis after they noticed fast heart rate. She was able to finish her dialysis. Patient does have some symptoms with that some palpitations and a little shortness of breath but she denies any chest pain. Patient was recently admitted to the hospital with Mary burr RVR was on Eliquis also had a non-STEMI and an LAD stent placement. She did have renal failure at that time so dialysis is new for her she does have some fatigue. Review of Systems Narrative: General: fatigue, fever or chills HEENT: denies ear pain, denies nasal congestion, denies vision changes, denies sore throat Neck: denies masses or pain Resp: denies cough, mild shortness of breath, denies pleuritic pain Cardio: denies chest pain, denies edema GI: denies abdominal pain, denies N/V/D, denies black/tarry or bloody stools : denies hematuria, denies dysuria Neuro: denies headache, denies dizziness, denies motor or sensory changes Musculoskeletal: denies pain, denies swelling Skin: denies rashes Psych: denies SI or HI Endocrine: denies thyroid symptoms, denies lymphadenopathy all over ROS reviewed and patient denies PFSH ED PFSH: Medical History Acute non-ST elevation myocardial infarction (NSTEMI) Afib Anemia Atherosclerotic heart disease of [place] coronary artery with unstable angina pectoris Atrial fibrillation with rapid ventricular response CAD (coronary artery disease) Diabetes Dyslipidemia HTN (hypertension) Morbid obesity PVD (peripheral vascular disease) 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 Status post insertion of drug-eluting stent into left anterior descending (LAD) artery Venous stasis Surgical History History of ankle surgery History of cataract surgery History of cholecystectomy History of heart artery stent S/P hemodialysis catheter insertion (11/22/20) Right internal jugular vein Social History Smoking and tobacco status: never smoked Marital status: / Physical Exam Narrative: EXAM NARRATIVE: General: a/o/3, no distress, morbidly obese Head: atraumatic HEENT: normal eyes, normal conjunctiva, normal hearing, normal external nose, normal mouth, mucous membranes moist Neck: FROM, trachea midline Chest: normal expansion, no gross deformities Resp: normal speech, no retractions, no accessory muscle use, CTA bilaterally Cardio: irregular rate and increased rhythm and no murmur, no peripheral edema, normal peripheral pulses GI: soft, flat non tender, no guarding normal BS : deferred Musculoskeletal: FROM, no pain or gross deformities Neuro: a/o appropriate for age, no gross motor or sensory deficits, CN II-XII grossly intact, normal coordination, normal speech Skin: no rashes, chronic skin findings right anterior box no signs of cellulitis Psych: cooperative, normal mood and effect Course Vital Signs: Vital signs: Vital Signs Temperature 98.1 F 11/29/20 19:54 Pulse Rate 122 H 11/29/20 19:54 Respiratory Rate 24 H 11/29/20 19:54 Blood Pressure 132/76 11/29/20 20:40 Pulse Oximetry 99 11/29/20 19:54 MDM - Arrhythmia/Palpitations MDM Narrative: Medical decision making narrative: Patient has soft blood pressure of 101 systolic. She says the fdc held her metoprolol today because she has been having low blood pressure. Spoke with cardiology Dr. Jo and we are going to try some digoxin however this will take hours to work and then the question is does she need to be started on this daily and if the facilities can continue to hold her metoprolol due to blood pressure issues patients can continue to have tachycardia. Patient's blood pressure improved in the ER was up to 126 and then we had a manual 132 so I gave her a dose of IV metoprolol here in the ER that improved her heart rate anywhere from 92 to the low 100s on Friday give her 25 mg of metoprolol here in the ER orally she was due for 50 mg at 9:00 her blood pressure is a little bit soft 105/57 another reading was 111. I do not feel we have to admit her its not an extreme rate it varies she is on Eliquis. Her labs are stable They can monitor her at the facility and if she continues to have lower blood pressure they may have to consider decreasing her metoprolol and/or they will need to speak to cardiology or her PCP whether digoxin might be an alternative since this will not lower her blood pressure Patient denies any further shortness of breath she feels better says she wants to get out of here wants to go back to the facility troponin is in the 400s however previously it was 1100 they did did just do a heart cath on her so we know what her coronary arteries look like she denies any chest pain that was ordered as a panel prior to realizing she has elevated tropes in the past. Plus she has renal disease and/or obesity furthermore it is markedly improved from 2 weeks ago Medical Records: Attestation: I reviewed the patient's medical records. Lab Data: Attestation: I reviewed the patient's lab results. Labs: Lab Results 11/29/20 11/29/20 11/29/20 Range/Units 20:45 20:45 20:45 WBC 9.4 (4.0-10.0) 10^3/ uL RBC 2.77 L (4.1-5.3) 10^6/u L Hgb 9.1 L (11.5-15.3) g/dL Hct 29.5 L (37.0-47.0) % MCV 106.5 H (81-99) fL MCH 32.9 (28.0-34.0) pg MCHC 30.8 (30.0-36.0) g/dL RDW 17.7 H (12.1-15.1) % Plt Count 354 (130-400) 10^3/c mm MPV 10.4 (7.4-10.4) fL Neut % (Auto) 65.1 % Lymph % (Auto) 16.1 % [place] % (Auto) 14.2 % Eos % (Auto) 3.1 % Baso % (Auto) 0.7 % Neut # (Auto) 6.13 (1.8-7.7) 10^3/u L Lymph # (Auto) 1.5 (0.8-4.8) 10^3/u L [place] # (Auto) 1.3 H (0.2-0.9) 10^3/u L Eos # (Auto) 0.3 (0.0-0.8) 10^3/u L Baso # (Auto) 0.1 (0.0-0.1) 10^3/u L Nucleated RBC % (a uto) 0.2 % Nucleated RBCs # 0.0 /100WBC Sodium 134 L (136-145) mmol/L Potassium 3.9 (3.5-5.1) mmol/L Chloride 95 L (98-107) mmol/L Carbon Dioxide 30 H (22-29) mmol/L Anion Gap 12.9 (5-19) BUN 11 (8-23) mg/dL Creatinine 1.9 H (0.5-0.9) mg/dL GFR Calculation Not Reportable Glucose 227 H (65-115) mg/dL Calculated Osmolal ity 285 (285-295) mOsm/k g Calcium 7.5 L (8.5-10.5) mg/dL Magnesium 1.7 (1.7-2.3) mg/dL Total Bilirubin 0.5 (0.15-1.2) mg/dL AST 14 (0-32) U/L ALT < 5 (0-33) U/L Alkaline Phosphata se 150 H (35-105) IU/L Troponin T Baselin e 415 H* (0-10) ng/L Total Protein 6.8 (6.6-8.7) g/dL Albumin 2.9 L (3.5-5.2) g/dL Globulin 3.9 (1.3-4.6) g/dL EKG Data^: EKG 1: Attestation: I personally reviewed and interpreted this EKG as follows: EKG interpretation date: 11/29/20 EKG interpretation time: 20:24 Interpretation: A. fib with RVR rate 123 inverted T waves lateral leads Other EKG comments: Chest X-Ray 11/29/20 19:58 IMPRESSION: 1. Minimal left basilar atelectasis. 2. A dual lumen right sided venous catheter terminates over the expected brachiocephalic vein or superior SVC, which is higher than typical. Discharge Plan Discharge Patient Disposition: [facility] Clinical Impression: Atrial fibrillation with rapid ventricular response Chronic kidney failure Qualifiers: Chronic kidney disease stage: unspecified stage Qualified Code(s): N18.9 - Chronic kidney disease, unspecified Condition: Stable Discharge Orders: Discharge ED (Routine); Ordered 11/29/20 Ordered By: Juli Chanel Referrals: Ruddy Sanches MD [Physician] - (call for appointment) Pascual Kay MD [Primary Care Provider] - Discharge Diet: Usual diet Discharge Activity: Resume usual activity Activity Restrictions/Additional Instructions: Patient's heart rate was in the lower 100s but did get as high as 123 she was given 1 dose of metoprolol IV in the ER because we had better blood pressure readings of 126 and 132. We did give her 25 mg of metoprolol at 930 this is a reduced dose from what she normally takes at this time because her blood pressure was a little soft at 110/60. Recommend that she monitor her blood pressures and you will need to speak to the facility provider or to the patient's provider and if she continues to run too low on her blood pressure you may need to reduce the metoprolol to 25 mg twice a day. If she continues to have blood pressure issues you will need to speak with cardiology and discuss whether patient should be switched to digoxin or this added. Thank you for choosing [facility] for your healthcare needs today. Please realize this is an emergency room and that we are providing you with a medical screening exam and this may not be complete and all inclusive of all the testing and or work up that you may need to determine your ailment or severity of your illness. It is very important that you follow up as instructed or that you return to the Emergency Department should you have concerns or if your condition changes or worsens in any way. Coding Level of Care Code ED [employer] for Sosa Bates
[2020-11-29 20:40] VITALS: BP 132/76
[2020-11-29 20:53] LABS: Basophils # 0.1 10^3/uL (0.0-0.1); Basophils % 0.7 %; Eosinophils # 0.3 10^3/uL (0.0-0.8); Eosinophils % 3.1 %; Hematocrit 29.5 % (37.0-47.0); Hemoglobin 9.1 g/dL (11.5-15.3); Lymphocytes # 1.5 10^3/uL (0.8-4.8); Lymphocytes % 16.1 %; Mean Corpuscular HGB Conc 30.8 g/dL (30.0-36.0); Mean Corpuscular Hemoglobin 32.9 pg (28.0-34.0); Mean Corpuscular Volume 106.5 fL (81-99); Mean Platelet Volume 10.4 fL (7.4-10.4); Monocytes # 1.3 10^3/uL (0.2-0.9); Monocytes % 14.2 %; Neutrophils # 6.13 10^3/uL (1.8-7.7); Neutrophils % 65.1 %; Nucleated Red Blood Cells % 0.2 %; Platelet Count 354 10^3/cmm (130-400); Red Blood Count 2.77 10^6/uL (4.1-5.3); Red Cell Distribution Width 17.7 % (12.1-15.1); White Blood Count 9.4 10^3/uL (4.0-10.0)
[2020-11-29] MEDS: metoprolol tartrate 1 mg/1 mL SDV 5 mL 5 MG IV (21:01)
[2020-11-29 21:12] LABS: Alanine Aminotransferase < 5 U/L (0-33); Albumin Level 2.9 g/dL (3.5-5.2); Alkaline Phosphatase 150 IU/L (35-105); Anion Gap 12.9 (5-19); Aspartate Amino Transferase 14 U/L (0-32); Blood Urea Nitrogen 11 mg/dL (8-23); Calcium 7.5 mg/dL (8.5-10.5); Carbon Dioxide 30 mmol/L (22-29); Chloride 95 mmol/L (98-107); Globulin 3.9 g/dL (1.3-4.6); Glucose 227 mg/dL (65-115); Magnesium 1.7 mg/dL (1.7-2.3); Osmolality Calculated 285 mOsm/kg (285-295); Potassium 3.9 mmol/L (3.5-5.1); Sodium 134 mmol/L (136-145); Total Bilirubin 0.5 mg/dL (0.15-1.2); Total Protein 6.8 g/dL (6.6-8.7)
[2020-11-29 21:35] LABS: Troponin(5th) Baseline 415 ng/L (0-10)
[2020-11-29] MEDS: metoprolol tartrate 25 mg Tablet PO (21:39)
[2020-11-29 21:43] VITALS: BP 118/54; PULSE 102; RESP 22; O2SAT 94
[2020-11-29 22:13] VITALS: BP 111/55; PULSE 105; RESP 24; O2SAT 94
[2020-11-29 22:43] VITALS: BP 120/63; PULSE 117; RESP 22; O2SAT 94
[2020-11-29 22:58] VITALS: BP 120/63; PULSE 117; RESP 24; O2SAT 94
== END 2020-11-29 22:45 ==
PROVIDERS: Emergency Provider Emergency Medicine; PCP Family Medicine
DX: I48.20 Chronic atrial fibrillation, unspecified (principal); I12.9 Hypertensive chronic kidney disease with stage 1 through stage 4 chronic kidney disease, or unspecified chronic kidney disease; E11.22 Type 2 diabetes mellitus with diabetic chronic kidney disease; N18.9 Chronic kidney disease, unspecified; I25.2 Old myocardial infarction; I25.10 Atherosclerotic heart disease of native coronary artery without angina pectoris; E78.5 Hyperlipidemia, unspecified
CPT/HCPCS: 36415; 71045; 80053; 83735; 84484; 85025; 93005; 96374; 96375; 99284; J3490

== ENCOUNTER 2020-12-07 16:35 | Inpatient (IN) | payer MEDICARE, MEDICAID, SELFPAY ==
[2020-12-07] VITALS (9 sets, daily range): BP systolic 84–119; BP diastolic 48–58; PULSE 98–138; RESP 15–24; TEMP 37.3; O2SAT 96–98; BMI 53.2
--- NOTE | 2020-12-07 16:37 | ECG_ITS ---
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 Measurements Intervals [place] Rate: 124 P: [place]: QRS: 27 QRSD: 110 T: 37 QT: 307 QTc: 442 Interpretive Statements ATRIAL FIBRILLATION WITH RAPID VENTRICULAR RESPONSE LOW QRS VOLTAGE IN EXTREMITY LEADS [QRS DEFLECTION < 0.5 mV IN LIMB LEADS] SEPTAL MYOCARDIAL INFARCTION , PROBABLY OLD [40+ ms Q WAVE IN V1/V2] MODERATE T-WAVE ABNORMALITY, CONSIDER LATERAL ISCHEMIA [-0.1+ mV T WAVE IN I/aVL/V5/V6] Compared to ECG 11/29/2020 20:09:48 Low QRS voltage now present Myocardial infarct finding still present T-wave abnormality still present Possible ischemia still present Electronically Signed On 12-07-2020 18:29:23 CDT by Rupinder Melchor M.D. [id number]
--- NOTE | 2020-12-07 16:37 | XRR_ITS ---
PROCEDURE INFORMATION: Exam: XR Chest Exam date and time: 12/07/2020 4:46 PM Age: 75 years old Clinical indication: Sternal or substernal pain; Prior surgery; Surgery type: Port; Additional info: Cp x 3 hours TECHNIQUE: Imaging protocol: XR of the chest. Views: 1 view. COMPARISON: CR (CHEST, ) 11/29/2020 8:08 PM FINDINGS: Tubes, catheters and devices: Right-sided central line, unchanged. Lungs: Increased pulmonary vascularity and mild bilateral interstitial infiltrates noted. Findings are suggestive of mild fluid overload/CHF. Pleural spaces: Unremarkable. No pleural effusion. No pneumothorax. Heart/Mediastinum: Mild cardiomegaly is noted. Bones/joints: Unremarkable. XR/XR chest 1V portable [id number] IMPRESSION: 1. Mild cardiomegaly is noted. 2. Increased pulmonary vascularity and mild bilateral interstitial infiltrates noted. Findings are suggestive of mild fluid overload/CHF. This is new when compared to 11/29/2020.
--- NOTE | 2020-12-07 16:45 | W.ED.CHESTPA ---
HPI - Chest Pain General: Chief Complaint: Chest Pain Stated Complaint: CP Time Seen by Provider: 12/07/20 16:35 Source: patient and EMS Mode of arrival: EMS Limitations: no limitations History of Present Illness: HPI narrative: 75-year-old female who has a history of end-stage renal disease on dialysis also has coronary artery disease and morbid obesity. Patient is here from the senior living today with chest pain. States she has a sharp chest pain in the center of her chest that since resolved with nitro. She was admitted here 2 to 3 weeks ago for sepsis for pneumonia and discharged to the senior living. She has been receiving dialysis since then. She denies any cough or shortness of breath. Patient also had a angiogram done while she was here for an NSTEMI last time as well. She states the pain earlier was roughly 6 out of 10. Denies any nausea or diaphoresis. Associated symptoms: Deny abdominal pain, dyspnea, fever(s), nausea or vomiting Review of Systems Const: Denies: fever(s), chills, body aches or change in appetite Eyes: Denies: blurry vision or eye discomfort ENMT: Denies: throat pain or dental pain Card: Reports: chest pain Resp: Denies: dyspnea GI: Denies: abdominal pain, nausea, vomiting or diarrhea : Denies: dysuria Musc: Denies: neck pain or back pain Skin/Breast: Denies: rash Neuro: Denies: headache(s) Psych: Denies: depression Jewel/Lymph: Denies: easy bruising All/Imm: Denies: urticaria PFS ED PFSH: Medical History (Updated 12/07/20 @ 18:38 by Duke Geronimo MD) Acute non-ST elevation myocardial infarction (NSTEMI) Afib Anemia Atherosclerotic heart disease of [place] coronary artery with unstable angina pectoris Atrial fibrillation with rapid ventricular response CAD (coronary artery disease) Diabetes Dyslipidemia HTN (hypertension) Morbid obesity PVD (peripheral vascular disease) 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 Status post insertion of drug-eluting stent into left anterior descending (LAD) artery Venous stasis Surgical History History of ankle surgery History of cataract surgery History of cholecystectomy History of heart artery stent S/P hemodialysis catheter insertion (11/22/20) Right internal jugular vein Social History Smoking and tobacco status: never smoked Marital status: / Physical Exam Const: COMMON NORMALS: no acute distress and patient oriented x3 OTHER: morbidly obese HENMT: COMMON NORMALS: normocephalic and atraumatic HEAD & SCALP: normocephalic and atraumatic Eye: COMMON NORMALS: Equal, round and reactive pupils present and EOMs intact bilaterally PUPIL: Yes Equal, round and reactive pupils present Neck/C-Spine: COMMON NORMALS: full ROM and supple Chest: COMMONS NORMALS: normal inspection of the chest and normal palpation of entire chest wall Resp: COMMON NORMALS: normal respiratory effort, No retractions, No use of accessory muscles and clear to auscultation bilaterally AUSCULTATION: clear to auscultation bilaterally Cardio: COMMON NORMALS: regular rate, regular rhythm and No murmurs present (Cardio) RATE: regular rate RHYTHM: regular rhythm GI: COMMON NORMALS: Normal to inspection, nondistended, normoactive bowel sounds present, Soft to palpation, non-tender and no masses PALPATION: Yes Soft to palpation Extremity: COMMON NORMALS: normal to inspection and full ROM Neuro: COMMON NORMALS: patient oriented x3, moves all extremities and no focal motor deficits Psych: COMMON NORMALS: mental status grossly normal, Normal thought process present and cooperative THOUGHT PROCESS: Normal thought process present Skin: COMMON NORMALS: no rashes or lesions noted and no wounds GENERAL SKIN EXAM: no rashes or lesions noted Course Vital Signs: Vital signs: Vital Signs Temperature 99.2 F 12/07/20 16:52 Pulse Rate 132 H 12/07/20 17:01 Respiratory Rate 24 H 12/07/20 17:01 Blood Pressure 111/48 12/07/20 17:01 Pulse Oximetry 97 12/07/20 17:01 MDM - Chest Pain MDM Narrative: Medical decision making narrative: Patient presents here with chest pain along with shortness of breath. Patient likely has CHF exacerbation. Will give 1 dose of antibiotics to cover for possible pneumonia by believe the x-ray is more CHF. Patient given Lasix. Her troponin is decreased from what it was here previously. Spoke to hospitalist will admit to the cardiac stepdown. Lab Data: Labs: Lab Results 12/07/20 12/07/20 12/07/20 Range/Units 17:08 17:08 17:08 WBC 8.0 (4.0-10.0) 10^3/ uL RBC 3.01 L (4.1-5.3) 10^6/u L Hgb 9.8 L (11.5-15.3) g/dL Hct 33.2 L (37.0-47.0) % MCV 110.3 H (81-99) fL MCH 32.6 (28.0-34.0) pg MCHC 29.5 L (30.0-36.0) g/dL RDW 18.0 H (12.1-15.1) % Plt Count 283 (130-400) 10^3/c mm MPV 10.7 H (7.4-10.4) fL Neut % (Auto) 90.7 % Lymph % (Auto) 3.2 % [place] % (Auto) 4.2 % Eos % (Auto) 0.6 % Baso % (Auto) 0.7 % Neut # (Auto) 7.26 (1.8-7.7) 10^3/u L Lymph # (Auto) 0.3 L (0.8-4.8) 10^3/u L [place] # (Auto) 0.3 (0.2-0.9) 10^3/u L Eos # (Auto) 0.1 (0.0-0.8) 10^3/u L Baso # (Auto) 0.1 (0.0-0.1) 10^3/u L Nucleated RBC % (a uto) 0 % Nucleated RBCs # 0.0 /100WBC PT 16.20 H (12.1-14.9) SECO NDS INR 1.27 H (0.8-1.2) Sodium 136 (136-145) mmol/L Potassium 5.1 (3.5-5.1) mmol/L Chloride 95 L (98-107) mmol/L Carbon Dioxide 32 H (22-29) mmol/L Anion Gap 14.1 (5-19) BUN 17 (8-23) mg/dL Creatinine 2.2 H (0.5-0.9) mg/dL GFR Calculation Not Reportable Glucose 210 H (65-115) mg/dL Calculated Osmolal ity 290 (285-295) mOsm/k g Lactic Acid (0.5-2.2) mmol/L Calcium 7.3 L (8.5-10.5) mg/dL Total Bilirubin 0.4 (0.15-1.2) mg/dL AST 25 (0-32) U/L ALT 6 (0-33) U/L Alkaline Phosphata se 112 H (35-105) IU/L Troponin T Baselin e (0-10) ng/L NT-Pro-B Natriuret Pep 34933 H (0-450) pg/mL Total Protein 6.5 L (6.6-8.7) g/dL Albumin 2.8 L (3.5-5.2) g/dL Globulin 3.7 (1.3-4.6) g/dL 12/07/20 12/07/20 Range/Units 17:08 17:08 WBC (4.0-10.0) 10^3/ uL RBC (4.1-5.3) 10^6/u L Hgb (11.5-15.3) g/dL Hct (37.0-47.0) % MCV (81-99) fL MCH (28.0-34.0) pg MCHC (30.0-36.0) g/dL RDW (12.1-15.1) % Plt Count (130-400) 10^3/c mm MPV (7.4-10.4) fL Neut % (Auto) % Lymph % (Auto) % [place] % (Auto) % Eos % (Auto) % Baso % (Auto) % Neut # (Auto) (1.8-7.7) 10^3/u L Lymph # (Auto) (0.8-4.8) 10^3/u L [place] # (Auto) (0.2-0.9) 10^3/u L Eos # (Auto) (0.0-0.8) 10^3/u L Baso # (Auto) (0.0-0.1) 10^3/u L Nucleated RBC % (a uto) % Nucleated RBCs # /100WBC PT (12.1-14.9) SECO NDS INR (0.8-1.2) Sodium (136-145) mmol/L Potassium (3.5-5.1) mmol/L Chloride (98-107) mmol/L Carbon Dioxide (22-29) mmol/L Anion Gap (5-19) BUN (8-23) mg/dL Creatinine (0.5-0.9) mg/dL GFR Calculation Glucose (65-115) mg/dL Calculated Osmolal ity (285-295) mOsm/k g Lactic Acid 2.0 (0.5-2.2) mmol/L Calcium (8.5-10.5) mg/dL Total Bilirubin (0.15-1.2) mg/dL AST (0-32) U/L ALT (0-33) U/L Alkaline Phosphata se (35-105) IU/L Troponin T Baselin e 215 H* (0-10) ng/L NT-Pro-B Natriuret Pep (0-450) pg/mL Total Protein (6.6-8.7) g/dL Albumin (3.5-5.2) g/dL Globulin (1.3-4.6) g/dL Imaging Data^: CXR: Attestation: I personally reviewed and interpreted this imaging study as follows: Radiologist's impression: [address] [address] XRay Report Signed Patient: Carole Lee Unit #: [id number] : 1945 Age/Sex: 75 / F ADM Date: 12/07/20 Loc: ER Room/Bed: Attending Dr: Ordering Provider/Ordering MD: Duke Geronimo MD Date of Service: 12/07/20 Procedure(s): XR chest 1V portable [id number] Accession Number(s): [id number] Report Number: [id number] PROCEDURE INFORMATION: Exam: XR Chest Exam date and time: 12/07/2020 4:46 PM Age: 75 years old Clinical indication: Sternal or substernal pain; Prior surgery; Surgery type: Port; Additional info: Cp x 3 hours TECHNIQUE: Imaging protocol: XR of the chest. Views: 1 view. COMPARISON: CR (CHEST, ) 11/29/2020 8:08 PM FINDINGS: Tubes, catheters and devices: Right-sided central line, unchanged. Lungs: Increased pulmonary vascularity and mild bilateral interstitial infiltrates noted. Findings are suggestive of mild fluid overload/CHF. Pleural spaces: Unremarkable. No pleural effusion. No pneumothorax. Heart/Mediastinum: Mild cardiomegaly is noted. Bones/joints: Unremarkable. XR/XR chest 1V portable [id number] IMPRESSION: 1. Mild cardiomegaly is noted. 2. Increased pulmonary vascularity and mild bilateral interstitial infiltrates noted. Findings are suggestive of mild fluid overload/CHF. This is new when compared to 11/29/2020. EKG Data^: EKG 1: Attestation: I personally reviewed and interpreted this EKG as follows: EKG interpretation date: 12/07/20 EKG interpretation time: 17:10 Interpretation: afib with rvr hr [address] or t wave abnormalities qrs 110 qtc 381 Discharge Plan Discharge Patient Disposition: Admitted As Inpatient Admit Provider: Woody Boykin Clinical Impression: Chest pain Qualifiers: Chest pain type: unspecified Qualified Code(s): R07.9 - Chest pain, unspecified Congestive heart failure Qualifiers: Heart failure type: unspecified Condition: Stable Coding Level of Care Code ED Informatics Spec for Chg Fwd Exam Comprehensive
[2020-12-07 17:37] LABS: Basophils # 0.1 10^3/uL (0.0-0.1); Basophils % 0.7 %; Eosinophils # 0.1 10^3/uL (0.0-0.8); Eosinophils % 0.6 %; Hematocrit 33.2 % (37.0-47.0); Hemoglobin 9.8 g/dL (11.5-15.3); Lymphocytes # 0.3 10^3/uL (0.8-4.8); Lymphocytes % 3.2 %; Mean Corpuscular HGB Conc 29.5 g/dL (30.0-36.0); Mean Corpuscular Hemoglobin 32.6 pg (28.0-34.0); Mean Corpuscular Volume 110.3 fL (81-99); Mean Platelet Volume 10.7 fL (7.4-10.4); Monocytes # 0.3 10^3/uL (0.2-0.9); Monocytes % 4.2 %; Neutrophils # 7.26 10^3/uL (1.8-7.7); Neutrophils % 90.7 %; Nucleated Red Blood Cells % 0 %; Platelet Count 283 10^3/cmm (130-400); Red Blood Count 3.01 10^6/uL (4.1-5.3)
[2020-12-07 17:41] LABS: INR 1.27 (0.8-1.2)
[2020-12-07 17:53] LABS: Alanine Aminotransferase 6 U/L (0-33); Albumin Level 2.8 g/dL (3.5-5.2); Alkaline Phosphatase 112 IU/L (35-105); Anion Gap 14.1 (5-19); Aspartate Amino Transferase 25 U/L (0-32); Blood Urea Nitrogen 17 mg/dL (8-23); Calcium 7.3 mg/dL (8.5-10.5); Carbon Dioxide 32 mmol/L (22-29); Chloride 95 mmol/L (98-107); Globulin 3.7 g/dL (1.3-4.6); Glucose 210 mg/dL (65-115); NT Pro B Type Natriuretic Pept 34164 pg/mL (0-450); Osmolality Calculated 290 mOsm/kg (285-295); Potassium 5.1 mmol/L (3.5-5.1); Sodium 136 mmol/L (136-145); Total Bilirubin 0.4 mg/dL (0.15-1.2); Total Protein 6.5 g/dL (6.6-8.7)
[2020-12-07 18:20] LABS: Troponin(5th) Baseline 215 ng/L (0-10)
[2020-12-07] MEDS: FUROsemide 10 mg/mL SDV 4mL 40 MG IVP (18:27)
--- NOTE | 2020-12-07 18:37 | ECG_ITS ---
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 Measurements Intervals [place] Rate: 121 P: [place]: QRS: 47 QRSD: 117 T: 233 QT: 349 QTc: 496 Interpretive Statements ATRIAL FIBRILLATION WITH RAPID VENTRICULAR RESPONSE LOW QRS VOLTAGE IN EXTREMITY LEADS [QRS DEFLECTION < 0.5 mV IN LIMB LEADS] MODERATE INTRAVENTRICULAR CONDUCTION DELAY ST DEVIATION AND MODERATE T-WAVE ABNORMALITY, CONSIDER ANTEROLATERAL ISCHEMIA ST DEVIATION AND MODERATE T-WAVE ABNORMALITY, CONSIDER INFERIOR ISCHEMIA Compared to ECG 12/07/2020 17:10:27 Intraventricular conduction delay now present Myocardial infarct finding no longer present T-wave abnormality still present Possible ischemia still present Electronically Signed On 12-09-2020 9:54:38 CDT by Rupinder Melchor M.D. [id number]
--- NOTE | 2020-12-07 19:14 | PM.HP ---
Providers/Chief Complaint Admitting Physician: Woody Boykin Primary Care Provider: Pascual Kay MD Chief Complaint: CP History of Present Illness Carole Lee is a 75 year old female who carries history of established coronary disease, recent stent placement in LAD, chronic kidney disease stage IV, atrial fibrillation, chronic anticoagulation with Eliquis, morbid obesity, previous hospitalization was complicated due to sepsis(colitis& community-acquired pneumonia), development of ileus, acute kidney injury requiring dialysis presenting today with worsening shortness of breath and palpitations. Patient is stating that at [facility] she is able to ambulate using a walker, but lately she has been experiencing orthopnea, PND, with shortness of breath on exertion as well. Today she was not feeling well, and around 1 PM she start experiencing palpitations with some chest discomfort which she is describing as sharp pain, she told nursing staff about her chest discomfort, and received 1 nitroglycerin, it did not relieve her symptoms completely, chest pain persisted for about 2 to 3 hours. She did not experience any nausea, diaphoresis, emesis, she is endorsing loose stool since her previous hospitalization, she does make urine once or twice in a week. She uses 2 L of oxygen at baseline, does not use any CPAP at night. She is attributing her symptoms to palpitations however not sure if this chest pain is similar to the previous event when stent was placed. Of note, patient is stating that on Friday her dialysis session was stopped a little early because of her worsening of A. fib. Diagnostics in the ER revealed CHF exacerbation with pulmonary edema, high BNP, patient looks fluid overloaded, in the ER she was given 40 mg of IV Lasix and she was saturating well on 3 L nasal cannula, first troponin >200 At the time of my evaluation she had normal hemodynamics, was saturating well on 2 L no active chest pain, niece at the bedside Review of Systems Const: Reports: body aches and fatigue; Denies: fever(s) Eyes: Denies: change in vision ENMT: Denies: throat pain Card: Reports: chest pain, palpitations, irregular heart rhythm, edema, swelling of feet/ankles, dyspnea on exertion and orthopnea Resp: Reports: dyspnea GI: Reports: diarrhea; Denies: abdominal pain : Denies: flank pain Musc: Reports: extremity swelling; Denies: neck pain Skin/Breast: Reports: lesions and dry skin Neuro: Denies: headache(s) Psych: Denies: anxiety Endo: Denies: polyuria Jewel/Lymph: Denies: easy bruising All/Imm: Denies: urticaria Medications/Allergies Home Medications Medication Instructions Recorded Confirmed Last Taken Type levothyroxine 25 mcg PO DAILY@0500 09/08/19 12/07/20 12/07/20 History levothyroxine 200 mcg PO DAILY@0500 09/08/19 12/07/20 12/07/20 History pantoprazole 40 mg PO DAILY@0500 09/08/19 12/07/20 12/07/20 History polyethylene glycol 3350 17 g PO DAILY PRN #30 ea 11/23/20 12/07/20 Unknown Rx acetaminophen [Tylenol] 650 mg PO Q6H PRN 11/29/20 12/07/20 Unknown History clopidogrel 75 mg PO DAILY 11/29/20 12/07/20 12/07/20 07:01 History digoxin 125 mcg (0.125 mg) tablet 125 mcg PO DAILY 12/05/20 12/07/20 12/07/20 09:00 History gabapentin 100 mg capsule 200 mg PO BEDTIME cap 12/05/20 12/07/20 12/06/20 History B complex with C 20-folic acid 1 cap PO QPM 12/07/20 12/07/20 12/06/20 History [Renal Caps] apixaban [Eliquis] 2.5 mg PO BID 12/07/20 12/07/20 12/07/20 07:00 History atorvastatin 80 mg PO BEDTIME@20 12/07/20 12/07/20 12/06/20 History bisacodyl 10 mg MS DAILY PRN 12/07/20 12/07/20 Unknown History cephalexin 500 mg PO BID 12/07/20 12/07/20 12/07/20 07:01 History cholecalciferol (vitamin D3) 25 mcg PO DAILY 12/07/20 12/07/20 12/07/20 07:01 History [Vitamin D3] insulin aspart U-100 [Novolog See Rx Instructions .ROUTE .COMPLEX 12/07/20 12/07/20 12/07/20 12:00 History U-100 Insulin aspart] 7 UNITS metoprolol tartrate 50 mg PO BID@0900,2100 12/07/20 12/07/20 12/06/20 History nitroglycerin [Nitrostat] 0.4 mg SUBLINGUAL Q5M PRN 12/07/20 12/07/20 12/07/20 15:21 History phenytoin sodium extended 200 mg PO BID 12/07/20 12/07/20 12/07/20 07:01 History Allergies Allergy/AdvReac Type Severity Reaction Status Date / Time gentamicin Allergy Unknown Verified 12/07/20 17:52 hydromorphone [From Dilaudid] Allergy Unknown Verified 12/07/20 17:52 PFSH Acute PFSH: Medical History Acute non-ST elevation myocardial infarction (NSTEMI) Afib Anemia Atherosclerotic heart disease of [place] coronary artery with unstable angina pectoris Atrial fibrillation with rapid ventricular response CAD (coronary artery disease) Diabetes Dyslipidemia HTN (hypertension) Morbid obesity PVD (peripheral vascular disease) 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 Status post insertion of drug-eluting stent into left anterior descending (LAD) artery Venous stasis Surgical History History of ankle surgery History of cataract surgery History of cholecystectomy History of heart artery stent S/P hemodialysis catheter insertion (11/22/20) Right internal jugular vein Social History Smoking and tobacco status: never smoked Marital status: / Vitals/I&O/Wt Last Vital Signs Temp 99.2 F 12/07/20 16:52 Pulse 98 12/07/20 19:09 Resp 15 12/07/20 19:09 BP 119/55 12/07/20 19:09 Pulse Ox 96 12/07/20 19:09 Weight last 48 hrs Weight 154.221 kg Physical Exam Narrative: EXAM NARRATIVE: female who was lying comfortably in her bed, morbidly obese, was saturating well on 3 to nasal cannula, niece at the bedside Patient was able to mention above HPI Awake alert oriented x3 cooperative and pleasant during my evaluation Clinically looks fluid overloaded Variable S1-S2 Distended abdomen central obesity, mild tenderness on deep palpation in hypogastric region, bowel sounds present in all quadrants, no rigidity or guarding or signs of peritonitis Low symmetry 2+ pitting edema extending up to her thighs Right leg venous stasis dermatitis greater than left No active signs of cellulitis No acute respiratory distress she was saturating well on 3 to nasal cannula no use of respiratory accessory muscles, no audible stridor or wheezing EOMI, PERRLA GCS 15 no neurological deficit Data : 12/07/20 17:08 12/07/20 17:08 Micro: Microbiology 12/07/20 17:25 Blood Culture - Preliminary Blood SPECIMEN COLLECTED 12/07/20 17:08 Blood Culture - Preliminary Blood SPECIMEN COLLECTED A&P Assessment and plan (1) Chest pain: Status: Acute Qualifiers: Chest pain type: unspecified Qualified Code(s): R07.9 - Chest pain, unspecified (2) Congestive heart failure: Status: Acute Qualifiers: Heart failure type: unspecified (3) Atrial fibrillation with RVR: Status: Acute (4) NSTEMI (non-ST elevated myocardial infarction): Status: Acute Additional A&P Information NSTEMI Criteria met with troponin 215, EKG showing T wave inversion inferior lateral leads however these changes are not new on comparison to previous EKGs Patient describes her chest pain as substernal, sharp in nature, which lasted for about 2 to 3 hours Currently symptom-free We will start heparin drip add aspirin to Plavix, discontinue Metroprolol tartrate and start Toprol Serial troponin and EKG Repeat echo in the morning to identify any new wall motion abnormality, previous echo revealed EF 40% with diffuse hypokinesia of septum anteroseptal and inferior wall with left ventricular apex A. fib with RVR Current heart rate fluctuating between 10 5-1 15 Normal hemodynamically Hold digoxin digoxin level 1.3 Currently on Toprol If her heart rate stays above 110 will increase dose of Toprol Currently on heparin drip Fluid overloaded with underlying end-stage renal disease This seems secondary to underlying renal failure, last dialysis session was on Friday Telemetry nephro consulted Patient does make urine once or twice in a week She had incontinence to 40 mg of IV Lasix today I would hold off on Bumex for now because of her anuric state We will use BiPAP for pulmonary edema Loose stool Patient is stating that her stools are loose since her previous hospitalization, she received multiple antibiotics in last 1 month, shiga toxins were detected, she is afebrile no leukocytosis, mild abdominal tenderness in hypogastric region on deep palpation Type 2 diabetes: Would use moderate sliding scale Goals of care discussed with the patient: Full code DVT prophylaxis not indicated currently on heparin drip Renal dialysis High risk for mortality and morbidity Attestations Medical Necessity Statement*: Anticipating stay in the hospital cross more than 2 midnights for management of A. fib RVR, NSTEMI Time Spent in Patient Care: 40mins Coding Level of Care Code Acute Emergency Preparedness Coordinator for Chg Fwd Diagnoses Chest pain R07.9 Chest pain type: unspecified Congestive heart failure I50.9 Heart failure type: unspecified Atrial fibrillation with RVR I48.91 NSTEMI (non-ST elevated myocardial infarction) I21.4
--- NOTE | 2020-12-07 19:19 | PC.NURSE ---
Patient received from ED at 1900 via stretcher. Patient has sliding air mat placed and was used to transfer from stretcher to bed. Patient tolerated well. Patient reports feeling chest pain and palpitation while receiving dialysis on Friday. Started having chest pain again today. Patient is currently in afib with rate in the low 100s. Patient reports feeling some better. Patient has tunneled dialysis catheter to right chest with dressing in place that is c,d,i. No s/s of infection observed. Patient denies pain to site. Admission completed as documented.
[2020-12-07 19:25] LABS: Digoxin 1.3 ng/mL (0.6-1.2)
[2020-12-07 19:40] LABS: Troponin 5 2HR 207.1 ng/L (0-10); Troponin 5 2HR Delta -7.9 ABS# (0-10)
[2020-12-07 20:05] LABS: Glucose Point of Care 185 mg/dL (70-110)
[2020-12-07 20:35] LABS: Phenytoin Dilantin 9.8 ug/mL (10-20)
[2020-12-07] MEDS: atorvastatin 40 mg Tablet 80 MG PO (20:48)
[2020-12-07] MEDS: heparin 5,000 unit/mL INJ 1 mL IV (20:48)
[2020-12-07] MEDS: metoprolol succinate ER (24 HR) 25 mg Tablet PO (20:48)
[2020-12-07] MEDS: heparin drip 25,000 UNIT/500 ML PREMIX 36 UNIT IV (20:49)
--- NOTE | 2020-12-07 22:37 | ECG_ITS ---
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 Measurements Intervals [place] Rate: 98 P: PA: QRS: 43 QRSD: 122 T: 215 QT: 389 QTc: 497 Interpretive Statements ATRIAL FIBRILLATION MODERATE INTRAVENTRICULAR CONDUCTION DELAY [110+ ms QRS DURATION] ST DEVIATION AND MODERATE T-WAVE ABNORMALITY, CONSIDER ANTEROLATERAL ISCHEMIA [-0.1+ mV T WAVE IN V3-V6] ST DEVIATION AND MODERATE T-WAVE ABNORMALITY, CONSIDER INFERIOR ISCHEMIA [-0.1+ mV T WAVE IN II/aVF] Compared to ECG 12/07/2020 19:38:32 No significant changes Electronically Signed On 12-09-2020 9:54:22 CDT by Rupinder Melchor M.D. [id number]
--- NOTE | 2020-12-07 23:20 | PM.CONSULT ---
Providers/Reason For Consult Consulting Physician/Specialty*: linda chambers md / telenephrology Reason for Consult*: ESRD care Attending Physician: Woody Boykin Primary Care Provider: Pascual Kay MD History of Present Illness History of Present Illness Carole Lee is a 75 year old female h/o ESRD, CAD, recent stent placement in LAD, atrial fibrillation, chronic anticoagulation with Eliquis, morbid obesity, previous hospitalization was complicated due to sepsis(colitis& community-acquired pneumonia), development of ileus, acute kidney injury requiring dialysis presenting today with worsening shortness of breath and palpitations. Patient wass admitted earlier today w/ SOB, edema, a fib, leg pain and redness, orthopnea, and PND. She uses 2 L of oxygen at baseline, does not use any CPAP at night. Of note, patient is stating that on Friday her dialysis session was stopped a little early because of her worsening of A. fib. Review of Systems General: Reports: 10 or more systems reviewed and unremarkable except in HPI and below Narrative: sob, palps, edema, leg pain Meds/Allergies Home Medications and Allergies Home Medications Medication Instructions Recorded Confirmed Last Taken Type levothyroxine 25 mcg PO DAILY@0500 09/08/19 12/07/20 12/07/20 History levothyroxine 200 mcg PO DAILY@0500 09/08/19 12/07/20 12/07/20 History pantoprazole 40 mg PO DAILY@0500 09/08/19 12/07/20 12/07/20 History polyethylene glycol 3350 17 g PO DAILY PRN #30 ea 11/23/20 12/07/20 Unknown Rx acetaminophen [Tylenol] 650 mg PO Q6H PRN 11/29/20 12/07/20 Unknown History clopidogrel 75 mg PO DAILY 11/29/20 12/07/20 12/07/20 07:01 History digoxin 125 mcg (0.125 mg) tablet 125 mcg PO DAILY 12/05/20 12/07/20 12/07/20 09:00 History gabapentin 100 mg capsule 200 mg PO BEDTIME cap 12/05/20 12/07/20 12/06/20 History B complex with C 20-folic acid 1 cap PO QPM 12/07/20 12/07/20 12/06/20 History [Renal Caps] apixaban [Eliquis] 2.5 mg PO BID 12/07/20 12/07/20 12/07/20 07:00 History atorvastatin 80 mg PO BEDTIME@20 12/07/20 12/07/20 12/06/20 History bisacodyl 10 mg HI DAILY PRN 12/07/20 12/07/20 Unknown History cephalexin 500 mg PO BID 12/07/20 12/07/20 12/07/20 07:01 History cholecalciferol (vitamin D3) 25 mcg PO DAILY 12/07/20 12/07/20 12/07/20 07:01 History [Vitamin D3] insulin aspart U-100 [Novolog See Rx Instructions .ROUTE .COMPLEX 12/07/20 12/07/20 12/07/20 12:00 History U-100 Insulin aspart] 7 UNITS metoprolol tartrate 50 mg PO BID@0900,2100 12/07/20 12/07/20 12/06/20 History nitroglycerin [Nitrostat] 0.4 mg SUBLINGUAL Q5M PRN 12/07/20 12/07/20 12/07/20 15:21 History phenytoin sodium extended 200 mg PO BID 12/07/20 12/07/20 12/07/20 07:01 History Allergies Allergy/AdvReac Type Severity Reaction Status Date / Time gentamicin Allergy Unknown Verified 12/07/20 17:52 hydromorphone [From Dilaudid] Allergy Unknown Verified 12/07/20 17:52 Current Medications Current Medications Generic Name Dose Route Start Last Admin Trade Name Freq PRN Reason Stop Dose Admin Atorvastatin Calcium 80 mg 12/07/20 20:00 12/07/20 20:48 Atorvastatin 40 Mg Tablet PO 80 mg BEDTIME@20 ARMINDA Administration Heparin Sodium (Beef Lung) 0 unit 12/07/20 19:20 12/07/20 20:48 Heparin 5,000 Unit/Ml Inj 1 Ml IV 7,000 unit PRN PRN Administration Heparin weight-base protocol Protocol Heparin Sodium/Sodium Chloride 25,000 unit in 500 mls @ 0 mls/hr 12/07/20 19:30 12/07/20 20:49 Heparin Drip IV 11.67 unit/kg/hr .Q0M ARMINDA 36 mls/hr Administration Protocol Per Protocol Insulin Aspart 0 unit 12/07/20 21:00 12/07/20 20:49 Insulin Aspart 100 Unit/1 Ml SUBCUT 6 unit WM&BEDTIME ARMINDA Administration Protocol Metoprolol Succinate 25 mg 12/07/20 20:30 12/07/20 20:48 Metoprolol Succinate Er (24 Hr) 25 Mg Tablet PO 25 mg DAILY ARMINDA Administration PFSH Acute PFSH: Medical History Acute non-ST elevation myocardial infarction (NSTEMI) Afib Anemia Atherosclerotic heart disease of [place] coronary artery with unstable angina pectoris Atrial fibrillation with rapid ventricular response CAD (coronary artery disease) Diabetes Dyslipidemia HTN (hypertension) Morbid obesity PVD (peripheral vascular disease) 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 Status post insertion of drug-eluting stent into left anterior descending (LAD) artery Venous stasis Surgical History History of ankle surgery History of cataract surgery History of cholecystectomy History of heart artery stent S/P hemodialysis catheter insertion (11/22/20) Right internal jugular vein Social History Smoking and tobacco status: never smoked Marital status: / Vitals/I&O/Wt Last Vital Signs Temp 99.2 F 12/07/20 16:52 Pulse 109 H 12/07/20 23:12 Resp 19 H 12/07/20 19:34 BP 119/55 12/07/20 19:09 Pulse Ox 98 12/07/20 23:12 12/07/20 12/07/20 12/08/20 14:59 22:59 06:59 Intake Total 240 / 240 Balance 240 / 240 Weight last 48 hrs Weight 154.221 kg Physical Exam Narrative: EXAM NARRATIVE: obese, on bipap in bed, SOB vs noted heent- nc/at, eomi, anicterc neck supple lungs crackles and wheezes b/lheart irreg irreg +s1, s2 abd soft, nt, nd, +BS ext b/l edema and red legs neuro- a,a, o x 3 mood normal Data Micro: Micro: Microbiology 12/07/20 17:25 Blood Culture - Pr eliminary Blood SPECIMEN COLLEC CAROL ANN 12/07/20 17:08 Blood Culture - Pr eliminary Blood SPECIMEN COLLE CAROL ANN A&P Additional A&P Information 75 yr old female CHF, HTN, dm, morbid obesity 1. a fib and CHF per medicine/ cardiology -lasix now 2. ESRD- HD in am 3. JOEL- bipap tonight 4. DM control 5. BP okay 6. hgb 9.8- iron studies and epo 7. check pth, phos seen and examined w/ RN- telehealth visit Consult Attestations Medical Necessity Statement: esrd, chf, a fib Time Spent in Patient Care: Greater than 35 minutes Coding Level of Care Code Acute Manager Income Tax for Sosa Bates
[2020-12-07 23:52] LABS: Troponin 5 6HR 233.7 ng/L (0-10); Troponin 5 6HR Delta 18.7 ng/L (0-12)
[2020-12-08] VITALS (14 sets, daily range): BP systolic 99–120; BP diastolic 51–99; PULSE 66–110; RESP 14–25; TEMP 36.8–37; O2SAT 3–99
[2020-12-08 00:01] LABS: Hepatitis B Surface AB 3.5 (11.5-1000); Hepatitis B Surface Antigen Non-Reactive (Nonreactive); Hepatitis C Virus Antibody Non-Reactive (Nonreactive)
--- NOTE | 2020-12-08 00:06 | PC.NURSE ---
Dr Castorena called to consult with patient. Performed facetime. Doctor to place orders for dialysis in the am.
[2020-12-08] MEDS: FUROsemide 10 mg/mL SDV 10mL 80 MG IVP (00:12)
[2020-12-08 04:03] LABS: Basophils # 0.1 10^3/uL (0.0-0.1); Basophils % 1.2 %; Eosinophils # 0.4 10^3/uL (0.0-0.8); Eosinophils % 6.7 %; Hematocrit 31.2 % (37.0-47.0); Hemoglobin 9.1 g/dL (11.5-15.3); Lymphocytes # 0.6 10^3/uL (0.8-4.8); Lymphocytes % 10.7 %; Mean Corpuscular HGB Conc 29.2 g/dL (30.0-36.0); Mean Corpuscular Hemoglobin 32.9 pg (28.0-34.0); Mean Corpuscular Volume 112.6 fL (81-99); Mean Platelet Volume 10.6 fL (7.4-10.4); Monocytes # 0.5 10^3/uL (0.2-0.9); Monocytes % 8.7 %; Neutrophils # 4.16 10^3/uL (1.8-7.7); Nucleated Red Blood Cells % 0 %; Platelet Count 248 10^3/cmm (130-400); Red Blood Count 2.77 10^6/uL (4.1-5.3); Red Cell Distribution Width 17.7 % (12.1-15.1); White Blood Count 5.8 10^3/uL (4.0-10.0)
[2020-12-08 04:29] LABS: Alanine Aminotransferase < 5 U/L (0-33); Albumin Level 2.4 g/dL (3.5-5.2); Alkaline Phosphatase 95 IU/L (35-105); Anion Gap 8.7 (5-19); Aspartate Amino Transferase 30 U/L (0-32); Blood Urea Nitrogen 20 mg/dL (8-23); Carbon Dioxide 34 mmol/L (22-29); Chloride 96 mmol/L (98-107); Ferritin 759 ng/mL (15-150); Globulin 3.3 g/dL (1.3-4.6); Glucose 130 mg/dL (65-115); Iron 40 ug/dL (37-145); Magnesium 1.7 mg/dL (1.7-2.3); Osmolality Calculated 282 mOsm/kg (285-295); Percent Saturation 26.3 % (20-50); Phosphorus 3.1 mg/dL (2.5-4.5); Potassium 4.7 mmol/L (3.5-5.1); Sodium 134 mmol/L (136-145); Total Bilirubin 0.4 mg/dL (0.15-1.2); Total Iron Binding Capacity 152 mcg/dl; Total Protein 5.7 g/dL (6.6-8.7); Unsaturated Iron Binding 112 ug/dL (112-347)
[2020-12-08 04:51] LABS: Partial Thromboplastin Time > 250.0 SECONDS (23.9-36.7)
--- NOTE | 2020-12-08 04:51 | PC.NURSE ---
Patient has critical PTT of >250. Patient is on a heparin drip. Informed Dr Berkowitz and received order to stop Heparin for 4 hours.
[2020-12-08] MEDS: levothyroxine 25 mcg Tablet PO (04:57)
[2020-12-08] MEDS: levothyroxine 200 mcg Tablet PO (04:57)
[2020-12-08 05:41] LABS: Parathyroid Hormone 186.6 pg/mL (15-65)
[2020-12-08 05:44] LABS: Calcium 6.9 mg/dL (8.5-10.5)
[2020-12-08] MEDS: metoprolol succinate ER (24 HR) 25 mg Tablet PO (08:25)
--- NOTE | 2020-12-08 08:25 | PC.NURSE ---
Received phone call from dialysis nurse stating that patient's HR had increased from high 90's before dialysis to 120's. I sent Dr. Person a message and took gonzalez's 0900 dose of po metoprolol to dialysis to give to patient.
[2020-12-08] MEDS: clopidogrel 75 mg Tablet PO (10:39)
[2020-12-08] MEDS: aspirin 81 mg EC Tablet PO (10:39)
--- NOTE | 2020-12-08 10:42 | P.PN_ITS ---
Subjective Subjective: Interval history: Patient was seen and examined this morning, she underwent dialysis today, during the dialysis Heart rate was fluctuating in upper 110s, she received early dose of metoprolol tartrate 25 mg p.o, which was good enough to control her heart rate. Patient currently denies any chest pain, though she is complaining of shortness of breath. Vitals/I&O/Wt Last Vital Signs Temp 98.4 F 12/08/20 03:22 Pulse 108 H 12/08/20 09:06 Resp 18 12/08/20 09:06 BP 110/51 12/08/20 03:22 Pulse Ox 97 12/08/20 09:06 12/07/20 12/08/20 12/08/20 22:59 06:59 14:59 Intake Total 240 / 240 411.6 / 651.6 Balance 240 / 240 411.6 / 651.6 Weight last 48 hrs Weight 154.221 kg Physical Exam Const: COMMON NORMALS: patient oriented x3 HENMT: COMMON NORMALS: normocephalic and atraumatic HEAD & SCALP: normocephalic and atraumatic Chest: CHEST: Yes Symmetrical chest wall rise Resp: COMMON NORMALS: clear to auscultation bilaterally EFFORT & INSPECTION: Yes symmetric chest movement AUSCULTATION: clear to auscultation bilaterally Cardio: COMMON NORMALS: regular rate, regular rhythm, S1 normal heart sound present, S2 normal heart sound present, No gallops present (Cardio), No murmurs present (Cardio), No rub (Cardio) and Peripheral pulses 2+ throughout RATE: regular rate RHYTHM: regular rhythm HEART SOUNDS: S1 normal heart sound present and S2 normal heart sound present PERIPHERAL PULSES: Peripheral pulses 2+ throughout GI: COMMON NORMALS: Normal to inspection, nondistended, normoactive bowel sounds present, Soft to palpation, non-tender, No hepatosplenomegaly present and no masses AUSCULTATION: Yes normoactive bowel sounds PALPATION: Yes Soft to palpation and Yes No hepatosplenomegaly present RECTAL EXAM: deferred Extremity: NARRATIVE EXTREMITY EXAM: 1+ bilateral lower extremity pitting edema Neuro: COMMON NORMALS: patient oriented x3 Data : 12/08/20 03:11 12/08/20 03:11 Micro: Microbiology 12/07/20 17:25 Blood Culture - Preliminary Blood SPECIMEN COLLECTED 05/27/21 17:08 Blood Culture - Preliminary Blood SPECIMEN COLLECTED A&P Assessment and plan (1) Chest pain: Status: Acute Qualifiers: Chest pain type: unspecified Qualified Code(s): R07.9 - Chest pain, unspecified (2) Congestive heart failure: Status: Acute Qualifiers: Heart failure type: unspecified (3) Atrial fibrillation with RVR: Status: Acute Additional A&P Information # NSTEMI type II: Likely secondary to decompensated heart failure 2/2 Fluid overloaded with underlying end-stage renal diseas as well secondary to A. fib with RVR. Troponin trend has failed to show any meaningful significant delta. 2D echo: Telemetry: Heparin drip has been discontinued. # H/O Coronary artery disease status post stent: Recent history of coronary artery disease s/p stent to LAD. Plavix 75 mg p.o. daily Metoprolol succinate 25 mg p.o. daily Atorvastatin 80 mg p.o. daily. # A. fib: With RVR Current heart rate is better controlled Metoprolol succinate 25 mg p.o. daily Eliquis 2.5 mg every 12 hourly Hold digoxin as serum digoxin level 1.3 Repeat a.m. digoxin # Fluid overloaded with underlying end-stage renal disease This seems secondary to underlying renal failure, last dialysis session was on Friday Patient does make urine once or twice in a week Bumex 1mg p.o. twice daily Appreciate renal input # Loose stool Patient is stating that her stools are loose since her previous hospitalization, she received multiple antibiotics in last 1 month, shiga toxins were detected, she is afebrile no leukocytosis, mild abdominal tenderness in hypogastric region on deep palpation # Type 2 diabetes: MDSSI Monitor fingerstick glucose # Hypothyroidism: Levothyroxine 225 MCG p.o. daily Goals of care discussed with the patient: Full code DVT prophylaxis not indicated currently on heparin drip Renal dialysis High risk for mortality and morbidity Attestations Medical Necessity Statement*: Patient needs to be in hospital for management of NSTEMI. Coding Level of Care Code Acute Physician Scientist for jeanette Fwdionne Exam Detailed Diagnoses Chest pain R07.9 Chest pain type: unspecified Congestive heart failure I50.9 Heart failure type: unspecified Atrial fibrillation with RVR I48.91
[2020-12-08 10:51] LABS: Glucose Point of Care 116 mg/dL (70-110)
--- NOTE | 2020-12-08 11:20 | P.PN_ITS ---
Subjective Subjective: Interval history: Feels better today after dialysis with improved SOB. Pulse now in 100-110 range. Apparently making some more urine Vitals/I&O/Wt Last Vital Signs Temp 98.4 F 12/08/20 03:22 Pulse 108 H 12/08/20 10:25 Resp 14 12/08/20 10:25 BP 120/99 12/08/20 10:25 Pulse Ox 97 12/08/20 09:06 12/07/20 12/08/20 12/08/20 22:59 06:59 14:59 Intake Total 240 / 240 411.6 / 651.6 Balance 240 / 240 411.6 / 651.6 Weight last 48 hrs Weight 154.221 kg Physical Exam Narrative: EXAM NARRATIVE: Constitutional: Awake, comfortable HEENT: Wet mucosa, no jvp, non icteric Lungs: Bilaterally clear without discernible wheeze, rales in all lung zones CVS: S1 S2, no murmurs Abdo: Soft, BS ok Ext 4: Minimal edema, peripheral perfusion with no cyanosis Neurological: Grossly non-focal Data : 12/08/20 03:11 12/08/20 03:11 Micro: Microbiology 12/07/20 17:25 Blood Culture - Preliminary Blood SPECIMEN COLLECTED 12/07/20 17:08 Blood Culture - Preliminary Blood SPECIMEN COLLECTED A&P Additional A&P Information 1. TIFFANY On dialysis since early November following pneumonia and colitis Creatinine pretty low and making urine but presentation with overt fluid overload is concerning for on going need for dialysis Add Bumex po bid Dialyzed today, plan on monitoring over the weekend with view to dialysis again on Friday Avoid the usuals Strict Is and Os 2. Lytes look good, high bicarb noted 3. Afib Control looks pretty good at this time; Digoxin and Metoprolol on board as outpatient Corbin Sánchez MD Nephrology [phone] Thanks for consultation, pleasure to follow these cases with you Patient seen and examined via telemedicine, with the assistance of the bedside RN > 25 min spent in evaluation and mgmt of patient Attestations Medical Necessity Statement*: renal failure Coding Level of Care Code Acute Learning Disabilities Teacher for Sosa Bates
[2020-12-08] MEDS: bumetanide 1 mg Tablet PO ×2 (12:46→17:41)
--- NOTE | 2020-12-08 12:55 | PC.CHAP ---
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 Relational/Emotional Strength [] Patient feels connected with others/family/visitors/staff [] Distress [] Loneliness/isolation [] Abandonment Spirituality of Patient [] Person of Jennifer [] Attends Hinduism of their Jennifer [] Believes in Prayer [] Reads Bible or Holiness materials [] There are Spiritual issues to be addressed Amusement Machine Mechanic Interventions [] Prayer [] Active listening [] Non-anxious presence [] Spiritual/emotional support [] Crisis/trauma care [] Spiritual counseling [] Bereavement support [] Provided bereavement packet [] Provided Bible/devotional materials [] Provided toy/stuffed animal, coloring book to patient or family member [] Provided Communion [] Anointing/[place] [] Salvation [] Completed spiritual assessment [] Other: Impact on Illness or Injury [] Angry [] Fearful [] Anxious [] Often cries [] Exhaustion [] Unable to work [] Unable to attend muslim [] Unable to walk/stand [] Unable to read [] Unable to drive [] Unable to eat/drink [] Unable to sleep [] Unable to be with family [] Patient intubated [] Other: Summary Follow up needed Time spent with patient 1 minute
[2020-12-08] MEDS: apixaban 5 mg Tablet 2.5 MG PO ×2 (15:39→21:10)
[2020-12-08 17:28] LABS: Glucose Point of Care 159 mg/dL (70-110)
--- NOTE | 2020-12-08 19:34 | PC.NURSE ---
Received report from CHEYENNE Norwood. Patient resting in bed. Reports feeling well. Patient not ready to go back to [facility]. She reports feeling very unhappy with her care there. Patient requesting transfer to [facility]. Patient informed this nurse her son was going to try to get her transferred.
[2020-12-08 20:13] LABS: Glucose Point of Care 96 mg/dL (70-110)
[2020-12-08] MEDS: atorvastatin 40 mg Tablet 80 MG PO (21:10)
--- NOTE | 2020-12-08 21:20 | PC.NURSE ---
Patient requesting to have her home dose of Dilantin and Gabapentin. Informed Dr Berkowitz and received telephone order to start these two medications from her med rec. RBVO
[2020-12-08] MEDS: gabapentin 100 mg Capsule 200 MG PO (21:38)
[2020-12-09] VITALS (14 sets, daily range): BP systolic 104–146; BP diastolic 43–70; PULSE 68–103; RESP 10–26; TEMP 36.4–36.8; O2SAT 93–100
--- NOTE | 2020-12-09 01:08 | PC.NURSE ---
Patient requesting break from bipap. NC placed. Informed respiratory.
[2020-12-09] MEDS: levothyroxine 200 mcg Tablet PO (04:37)
[2020-12-09] MEDS: levothyroxine 25 mcg Tablet PO (04:37)
[2020-12-09 06:02] LABS: Basophils # 0.1 10^3/uL (0.0-0.1); Basophils % 1.6 %; Eosinophils # 0.6 10^3/uL (0.0-0.8); Eosinophils % 11.4 %; Hemoglobin 9.1 g/dL (11.5-15.3); Lymphocytes # 1.2 10^3/uL (0.8-4.8); Mean Corpuscular HGB Conc 28.4 g/dL (30.0-36.0); Mean Corpuscular Hemoglobin 32.3 pg (28.0-34.0); Mean Corpuscular Volume 113.5 fL (81-99); Mean Platelet Volume 10.7 fL (7.4-10.4); Monocytes # 0.7 10^3/uL (0.2-0.9); Monocytes % 14.4 %; Neutrophils # 2.44 10^3/uL (1.8-7.7); Nucleated Red Blood Cells % 0 %; Platelet Count 259 10^3/cmm (130-400); Red Blood Count 2.82 10^6/uL (4.1-5.3); Red Cell Distribution Width 17.7 % (12.1-15.1)
[2020-12-09 06:19] LABS: Alanine Aminotransferase 8 U/L (0-33); Albumin Level 2.2 g/dL (3.5-5.2); Alkaline Phosphatase 105 IU/L (35-105); Blood Urea Nitrogen 16 mg/dL (8-23); Calcium 7.1 mg/dL (8.5-10.5); Carbon Dioxide 28 mmol/L (22-29); Chloride 99 mmol/L (98-107); Globulin 3.5 g/dL (1.3-4.6); Glucose 108 mg/dL (65-115); Osmolality Calculated 284 mOsm/kg (285-295); Phosphorus 3.5 mg/dL (2.5-4.5); Sodium 136 mmol/L (136-145); Total Bilirubin 0.3 mg/dL (0.15-1.2); Total Protein 5.7 g/dL (6.6-8.7)
[2020-12-09 06:28] LABS: Anion Gap 13.3 (5-19); Aspartate Amino Transferase 39 U/L (0-32); Potassium 4.3 mmol/L (3.5-5.1)
[2020-12-09 06:40] LABS: Glucose Point of Care 124 mg/dL (70-110)
[2020-12-09] MEDS: bumetanide 1 mg Tablet PO ×2 (08:00→10:02)
[2020-12-09] MEDS: apixaban 5 mg Tablet 2.5 MG PO ×2 (08:01→21:44)
[2020-12-09] MEDS: clopidogrel 75 mg Tablet PO (08:01)
[2020-12-09] MEDS: phenytoin ER 100 mg Capsule 200 MG PO ×2 (08:01→17:37)
[2020-12-09] MEDS: metoprolol succinate ER (24 HR) 25 mg Tablet PO (08:01)
--- NOTE | 2020-12-09 08:56 | P.PN_ITS ---
Subjective Subjective: Interval history: feels okay today with no acute problems. She underwent dialysis yesterday and they removed 2.5 L. I added Bumex yesterday, she reports that she does not have an overwhelming amount of urine in response to these diuretics. Her urine output is not being recorded as she has some urinary incontinence. That said, she does not have any difficulty breat rafael, she is breathing comfortably on nasal cannula, some stable lower extremity edema. Vitals/I&O/Wt Last Vital Signs Temp 97.5 F L 12/09/20 03:20 Pulse 79 12/09/20 07:55 Resp 10 L 12/09/20 07:55 BP 124/43 12/09/20 07:55 Pulse Ox 99 12/09/20 07:55 12/08/20 12/09/20 12/09/20 22:59 06:59 14:59 Intake Total 360 / 470 Balance 360 / 470 Weight last 48 hrs Weight 154.221 kg Physical Exam Narrative: EXAM NARRATIVE: Constitutional: Awake, comfortable HEENT: Wet mucosa, no jvp, non icteric Lungs: Bilaterally clear without discernible wheeze, rales in all lung zones CVS: S1 S2, no murmurs Abdo: Soft, BS ok Ext 4: 1-2+ edema, peripheral perfusion with no cyanosis Neurological: Grossly non-focal Data : 12/09/20 04:17 12/09/20 04:17 Micro: Microbiology 12/07/20 17:25 Blood Culture - Preliminary Blood NEGATIVE TO DATE 12/07/20 17:08 Blood Culture - Preliminary Blood NEGATIVE TO DATE A&P Additional A&P Information 1. TIFFANY On dialysis since early November following pneumonia and colitis Creatinine pretty low and making urine but presentation with overt fluid overload is concerning for on going need for dialysis I will increase the dose of Bumex today to 2 mg twice a day. Close monitoring over the weekend for increase in volume overload and increase in serum creatinine. No indication for dialysis today. Avoid the usuals Strict Is and Os 2. Lytes look good 3. Afib Control looks pretty good at this time; Digoxin and Metoprolol on board as outpatient Corbin Sánchez MD Nephrology [phone] Thanks for consultation, pleasure to follow these cases with you Patient seen and examined via telemedicine, with the assistance of the bedside RN > 25 min spent in evaluation and mgmt of patient Attestations Medical Necessity Statement*: Eval for renal failure Coding Level of Care Code Acute Surgical Nurse Practitioner for [facility]
[2020-12-09 11:12] LABS: Glucose Point of Care 175 mg/dL (70-110)
--- NOTE | 2020-12-09 13:22 | PM.PN ---
Subjective Subjective: Interval history: Patient was seen and examined this morning, she had a rough night yesterday, she was placed on BiPAP for shortness of breath failed to tolerate BiPAP. Did fairly well on oxygen via nasal cannula. Currently saturating well on 3 Ls supplemental oxygen.Denies any chest pain post admission in the hospital. She underwent dialysis yesterday and they removed 2.5 L. Bumex was added yesterday by the organ recovery coordinator ,she does not have an overwhelming amount of urine in response to these diuretics. Vitals/I&O/Wt Last Vital Signs Temp 97.6 F 12/09/20 10:47 Pulse 87 12/09/20 12:07 Resp 18 12/09/20 10:47 BP 146/49 12/09/20 10:47 Pulse Ox 100 12/09/20 12:07 12/08/20 12/09/20 12/09/20 22:59 06:59 14:59 Intake Total 360 / 470 220 / 220 Balance 360 / 470 220 / 220 Weight last 48 hrs Weight 154.221 kg Physical Exam Const: COMMON NORMALS: patient oriented x3 HENMT: COMMON NORMALS: normocephalic and atraumatic HEAD & SCALP: normocephalic and atraumatic Chest: CHEST: Yes Symmetrical chest wall rise Resp: COMMON NORMALS: clear to auscultation bilaterally EFFORT & INSPECTION: Yes symmetric chest movement AUSCULTATION: clear to auscultation bilaterally Cardio: COMMON NORMALS: regular rate, regular rhythm, S1 normal heart sound present, S2 normal heart sound present, No gallops present (Cardio), No murmurs present (Cardio), No rub (Cardio) and Peripheral pulses 2+ throughout RATE: regular rate RHYTHM: regular rhythm HEART SOUNDS: S1 normal heart sound present and S2 normal heart sound present PERIPHERAL PULSES: Peripheral pulses 2+ throughout GI: COMMON NORMALS: Normal to inspection, nondistended, normoactive bowel sounds present AUSCULTATION: Yes normoactive bowel sounds RECTAL EXAM: deferred OTHER: Mild right upper quadrant as well as epigastric tenderness present Extremity: NARRATIVE EXTREMITY EXAM: 1+ bilateral lower extremity pitting edema Neuro: COMMON NORMALS: patient oriented x3 Data : 12/09/20 04:17 12/09/20 04:17 Micro: Microbiology 12/07/20 17:25 Blood Culture - Preliminary Blood NEGATIVE TO DATE 12/07/20 17:08 Blood Culture - Preliminary Blood NEGATIVE TO DATE A&P Assessment and plan (1) Chest pain: Status: Acute Qualifiers: Chest pain type: unspecified Qualified Code(s): R07.9 - Chest pain, unspecified (2) Congestive heart failure: Status: Acute Qualifiers: Heart failure type: unspecified (3) Atrial fibrillation with RVR: Status: Acute Additional A&P Information # NSTEMI type II: Likely secondary to decompensated heart failure 2/2 Fluid overloaded with underlying end-stage renal diseas as well secondary to A. fib with RVR. Troponin trend has failed to show any meaningful significant delta. 2D echo: Telemetry: Heparin drip has been discontinued. # H/O Coronary artery disease status post stent: Recent history of coronary artery disease s/p stent to LAD. Plavix 75 mg p.o. daily Metoprolol succinate 25 mg p.o. daily Atorvastatin 80 mg p.o. daily. # A. fib: With RVR Current heart rate is better controlled Metoprolol succinate 25 mg p.o. daily Eliquis 2.5 mg every 12 hourly Hold digoxin as serum digoxin level 1.3 Repeat a.m. digoxin # Fluid overloaded with underlying end-stage renal disease This seems secondary to underlying renal failure, last dialysis session was on Friday Patient does make urine once or twice in a week Bumex 1mg p.o. twice daily Appreciate renal input # Loose stool Patient is stating that her stools are loose since her previous hospitalization, she received multiple antibiotics in last 1 month, shiga toxins were detected, she is afebrile no leukocytosis, mild abdominal tenderness in hypogastric region on deep palpation. Follow stool enteric bacterial panel, parasitic panel, C. difficile, lactoferrin. # Type 2 diabetes: MDSSI Monitor fingerstick glucose # Hypothyroidism: Levothyroxine 225 MCG p.o. 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
[2020-12-09 16:22] LABS: Glucose Point of Care 153 mg/dL (70-110)
[2020-12-09] MEDS: bumetanide 1 mg Tablet 2 MG PO (17:36)
[2020-12-09 20:25] LABS: Glucose Point of Care 137 mg/dL (70-110)
[2020-12-09] MEDS: atorvastatin 40 mg Tablet 80 MG PO (21:44)
[2020-12-09] MEDS: gabapentin 100 mg Capsule 200 MG PO (21:44)
[2020-12-09] MEDS: nystatin powder 15 gm Btl 1 APPLIC TOPICAL (21:48)
[2020-12-10] VITALS (12 sets, daily range): BP systolic 107–160; BP diastolic 50–73; PULSE 71–93; RESP 12–31; TEMP 36.3–36.7; O2SAT 95–98
[2020-12-10] MEDS: levothyroxine 200 mcg Tablet PO (05:00)
[2020-12-10] MEDS: levothyroxine 25 mcg Tablet PO (05:00)
[2020-12-10 06:37] LABS: Glucose Point of Care 145 mg/dL (70-110)
--- NOTE | 2020-12-10 07:22 | PM.PN ---
Subjective Subjective: Interval history: less sob, feels better. diminished lung sounds. + afib Medications: Reviewed: Yes Medication Review Details: Current Medications Acetaminophen (Acetaminophen 325 Mg Tablet) 650 mg PO Q6H PRN PRN Reason: PAIN/FEVER Albuterol/Ipratropium (Ipratropium-Albuterol 3 Ml Neb) 3 ml INHALATION Q4H.RESPIRATORY PRN PRN Reason: SHORTNESS OF BREATH Apixaban (Apixaban 5 Mg Tablet) 2.5 mg PO BID@0900,2100 [facility] Last Admin: 12/09/20 21:44 Dose: 2.5 mg Documented by: Atorvastatin Calcium (Atorvastatin 40 Mg Tablet) 80 mg PO BEDTIME@20 [facility] Last Admin: 12/09/20 21:44 Dose: 80 mg Documented by: Bumetanide (Bumetanide 1 Mg Tablet) 2 mg PO BID [facility] Last Admin: 12/09/20 17:36 Dose: 2 mg Documented by: Clopidogrel Bisulfate (Clopidogrel 75 Mg Tablet) 75 mg PO DAILY [facility] Last Admin: 12/09/20 08:01 Dose: 75 mg Documented by: Dextrose (Dextrose 50% Syringe 50 Ml) 25 ml IVP ONCE PRN; Protocol PRN Reason: hypoglycemia protocol Dextrose (Dextrose 50% Syringe 50 Ml) 50 ml IVP PRN PRN; Protocol PRN Reason: hypoglycemia protocol Gabapentin (Gabapentin 100 Mg Capsule) 200 mg PO BEDTIME [facility] Last Admin: 12/09/20 21:44 Dose: 200 mg Documented by: Glucagon (Glucagon 1 Mg/Ml Inj 1 Ml) 1 mg IM ONCE PRN; Protocol PRN Reason: Adult Acute Hypoglycemia Prot. Guaifenesin/Dextromethorphan (Guaifenesin-Dextromethorphan Udc 10 Ml) 5 ml PO Q4H PRN PRN Reason: COUGH Dextrose (D5w) 500 mls @ 100 mls/hr IV ONCE PRN; Protocol PRN Reason: Adult Acute Hypoglycemia Prot Insulin Aspart (Insulin Aspart 100 Unit/1 Ml) 0 unit SUBCUT WM&BEDTIME [facility]; Protocol Last Admin: 12/09/20 21:01 Dose: Not Given Documented by: Levothyroxine Sodium (Levothyroxine 25 Mcg Tablet) 25 mcg PO DAILY@0500 [facility] Last Admin: 12/10/20 05:00 Dose: 25 mcg Documented by: Levothyroxine Sodium (Levothyroxine 200 Mcg Tablet) 200 mcg PO DAILY@0500 [facility] Last Admin: 12/10/20 05:00 Dose: 200 mcg Documented by: Metoprolol Succinate (Metoprolol Succinate Er (24 Hr) 25 Mg Tablet) 25 mg PO DAILY [facility] Last Admin: 12/09/20 08:01 Dose: 25 mg Documented by: Metoprolol Tartrate (Metoprolol Tartrate 1 Mg/1 Ml Sdv 5 Ml) 5 mg IV Q4H PRN PRN Reason: A.FIB Nystatin (Nystatin Powder 15 Gm Btl) 1 applic TOPICAL BID [facility] Last Admin: 12/09/20 21:48 Dose: 1 applic Documented by: Phenytoin (Phenytoin Er 100 Mg Capsule) 200 mg PO BID [facility] Last Admin: 12/09/20 17:37 Dose: 200 mg Documented by: Vitals/I&O/Wt Last Vital Signs Temp 97.4 F L 12/10/20 03:33 Pulse 86 12/10/20 05:39 Resp 16 12/10/20 03:33 BP 116/62 12/10/20 03:33 Pulse Ox 97 12/10/20 03:33 12/09/20 12/10/20 12/10/20 22:59 06:59 14:59 Intake Total 360 / 580 Balance 360 / 580 Physical Exam Narrative: EXAM NARRATIVE: obese, on NC02 in bed, less SOB vs noted heent- nc/at, eomi, anicterc neck supple lungs dec crackles and wheezes b/l heart irreg irreg +s1, s2 abd soft, nt, nd, +BS ext b/l edema and red ankle neuro- a,a, o x 3 mood normal Data : 12/09/20 04:17 12/09/20 04:17 Micro: Microbiology 12/09/20 17:30 Stool Lactoferrin - Final Stool - Stool Aspirate A&P Additional A&P Information 1. TIFFANY On dialysis since early November following pneumonia and colitis Creatinine pretty low and making urine but presentation with overt fluid overload is concerning for on going need for dialysis monitor on Bumex 2 mg twice a day. - Close monitoring over the weekend Avoid nephrotoxins Strict Is and Os 2. anemia- ferritin 759, tsat 26% 3. Afib Control on cardizem drip -monitor Digoxin level 4. ca 7.1- pth 186 Thanks for consultation, pleasure to follow these cases with you Patient seen and examined via telemedicine, with the assistance of the bedside RN > 25 min spent in evaluation and mgmt of patient Attestations Medical Necessity Statement*: renal failure, reps distress Time Spent in Patient Care: 16 - 35 minutes Coding Level of Care Code Acute Cigarette Tester for Sosa Bates
[2020-12-10 08:29] LABS: Basophils # 0.1 10^3/uL (0.0-0.1); Eosinophils # 0.4 10^3/uL (0.0-0.8); Eosinophils % 8.5 %; Hematocrit 36.1 % (37.0-47.0); Hemoglobin 10.5 g/dL (11.5-15.3); Lymphocytes # 1.2 10^3/uL (0.8-4.8); Lymphocytes % 23.5 %; Mean Corpuscular HGB Conc 29.1 g/dL (30.0-36.0); Mean Corpuscular Hemoglobin 32.4 pg (28.0-34.0); Mean Corpuscular Volume 111.4 fL (81-99); Mean Platelet Volume 10.4 fL (7.4-10.4); Monocytes # 0.6 10^3/uL (0.2-0.9); Monocytes % 11.5 %; Neutrophils # 2.71 10^3/uL (1.8-7.7); Neutrophils % 54.9 %; Nucleated Red Blood Cells % 0 %; Platelet Count 287 10^3/cmm (130-400); Red Blood Count 3.24 10^6/uL (4.1-5.3); Red Cell Distribution Width 17.6 % (12.1-15.1); White Blood Count 4.9 10^3/uL (4.0-10.0)
[2020-12-10] MEDS: bumetanide 1 mg Tablet 2 MG PO ×2 (08:40→17:37)
[2020-12-10] MEDS: b-complex-vitamin c Tablet 1 EACH PO (08:40)
[2020-12-10] MEDS: metoprolol succinate ER (24 HR) 25 mg Tablet PO (08:41)
[2020-12-10] MEDS: clopidogrel 75 mg Tablet PO (08:41)
[2020-12-10] MEDS: phenytoin ER 100 mg Capsule 200 MG PO ×2 (08:42→17:37)
[2020-12-10] MEDS: calcitriol 0.25 mcg Capsule PO (08:49)
[2020-12-10] MEDS: apixaban 5 mg Tablet 2.5 MG PO ×2 (08:49→20:59)
[2020-12-10] MEDS: nystatin powder 15 gm Btl 1 APPLIC TOPICAL ×2 (08:50→17:40)
[2020-12-10 09:03] LABS: Alanine Aminotransferase 7 U/L (0-33); Albumin Level 2.8 g/dL (3.5-5.2); Alkaline Phosphatase 117 IU/L (35-105); Anion Gap 13.5 (5-19); Aspartate Amino Transferase 37 U/L (0-32); Blood Urea Nitrogen 26 mg/dL (8-23); Calcium 7.4 mg/dL (8.5-10.5); Carbon Dioxide 29 mmol/L (22-29); Chloride 97 mmol/L (98-107); Globulin 3.3 g/dL (1.3-4.6); Glucose 132 mg/dL (65-115); Magnesium 1.9 mg/dL (1.7-2.3); Osmolality Calculated 287 mOsm/kg (285-295); Potassium 4.5 mmol/L (3.5-5.1); Sodium 135 mmol/L (136-145); Total Bilirubin 0.3 mg/dL (0.15-1.2); Total Protein 6.1 g/dL (6.6-8.7)
[2020-12-10 09:16] LABS: 25 Hydroxy Vitamin D 31 ng/mL (30-100)
--- NOTE | 2020-12-10 09:34 | PC.SOCIAL ---
*IMM* Patient was gave the important message from [employer]. This commercial real estate underwriter initialled and placed copy in the chart. Patient received a copy as well.
[2020-12-10 09:50] LABS: Digoxin 0.6 ng/mL (0.6-1.2)
[2020-12-10 11:19] LABS: Glucose Point of Care 137 mg/dL (70-110)
--- NOTE | 2020-12-10 11:41 | P.PN_ITS ---
Subjective Subjective: Interval history: No acute events overnight, patient is overall doing better, denies chest pain.Denies any abdominal pain, denies , nausea vomiting. Vitals/I&O/Wt Last Vital Signs Temp 97.4 F L 12/10/20 03:33 Pulse 93 12/10/20 07:29 Resp 20 H 12/10/20 07:29 BP 160/73 12/10/20 07:26 Pulse Ox 96 12/10/20 07:29 12/09/20 12/10/20 12/10/20 22:59 06:59 14:59 Intake Total 360 / 580 240 / 240 Balance 360 / 580 240 / 240 Physical Exam Const: COMMON NORMALS: patient oriented x3 HENMT: COMMON NORMALS: normocephalic and atraumatic HEAD & SCALP: normocephalic and atraumatic Chest: CHEST: Yes Symmetrical chest wall rise Resp: COMMON NORMALS: clear to auscultation bilaterally EFFORT & INSPECTION: Yes symmetric chest movement AUSCULTATION: clear to auscultation bilaterally Cardio: COMMON NORMALS: regular rate, regular rhythm, S1 normal heart sound present, S2 normal heart sound present, No gallops present (Cardio), No murmurs present (Cardio), No rub (Cardio) and Peripheral pulses 2+ throughout RATE: regular rate RHYTHM: regular rhythm HEART SOUNDS: S1 normal heart sound present and S2 normal heart sound present PERIPHERAL PULSES: Peripheral pulses 2+ throughout GI: COMMON NORMALS: Normal to inspection, nondistended, normoactive bowel sounds present AUSCULTATION: Yes normoactive bowel sounds RECTAL EXAM: deferred OTHER: Mild right upper quadrant as well as epigastric tenderness present Extremity: NARRATIVE EXTREMITY EXAM: 1+ bilateral lower extremity pitting edema Neuro: COMMON NORMALS: patient oriented x3 Data : 12/10/20 07:40 12/10/20 07:40 Micro: Microbiology 12/09/20 17:30 Stool Lactoferrin - Final Stool - Stool Aspirate A&P Assessment and plan (1) Chest pain: Status: Acute Qualifiers: Chest pain type: unspecified Qualified Code(s): R07.9 - Chest pain, unspecified (2) Congestive heart failure: Status: Acute Qualifiers: Heart failure type: unspecified (3) Atrial fibrillation with RVR: Status: Acute Additional A&P Information # NSTEMI type II: Likely secondary to decompensated heart failure with reduced ejection fraction 2/2 Fluid overloaded with underlying end-stage renal diseas as well secondary to A. fib with RVR. Troponin trend has failed to show any meaningful significant delta. 2D echo: Done on 12/10: Has failed to show any significant change from prior echo done on 11/15/2020: LV systolic function is moderately reduced with EF of 35- 40%.moderate global hypokinesis. Mild mitral regurgitation. Trace pulmonic regurgitation. Telemetry: Continues to be in A. fib with rate control Heparin drip has been discontinued. # H/O Coronary artery disease status post stent: Recent history of coronary artery disease s/p stent to LAD. Plavix 75 mg p.o. daily Metoprolol succinate 25 mg p.o. daily Atorvastatin 80 mg p.o. daily. # A. fib: With RVR Current heart rate is better controlled Metoprolol succinate 25 mg p.o. daily Eliquis 2.5 mg every 12 hourly Initially digoxin on hold as serum digoxin level 1.3 A.m. digoxin level: 0.6 Digoxin resumed Continue to monitor serum digoxin level # Fluid overloaded with underlying end-stage renal disease This seems secondary to underlying renal failure, last dialysis session was on Friday Patient does make urine once or twice in a week Bumex 1mg p.o. twice daily Appreciate renal input # Loose stool Patient is stating that her stools are loose since her previous hospitalization, she received multiple antibiotics in last 1 month, shiga toxins were detected, she is afebrile no leukocytosis, mild abdominal tenderness in hypogastric region on deep palpation. Follow stool enteric bacterial panel, parasitic panel, C. difficile, lactoferrin. # Type 2 diabetes: MDSSI Monitor fingerstick glucose # Hypothyroidism: Levothyroxine 225 MCG p.o. daily Goals of care discussed with the patient: Full code DVT prophylaxis not indicated currently on heparin drip Renal dialysis High risk for mortality and morbidity Attestations Medical Necessity Statement*: Patient needs to be in hospital for management of above defined problems. Coding Level of Care Code Acute Swimming Pool Installer And Servicer for Sosa Bates Diagnoses Chest pain R07.9 Chest pain type: unspecified Congestive heart failure I50.9 Heart failure type: unspecified Atrial fibrillation with RVR I48.91
[2020-12-10 16:13] LABS: Glucose Point of Care 198 mg/dL (70-110)
[2020-12-10 20:48] LABS: Glucose Point of Care 242 mg/dL (70-110)
[2020-12-10] MEDS: atorvastatin 40 mg Tablet 80 MG PO (20:58)
[2020-12-10] MEDS: gabapentin 100 mg Capsule 200 MG PO (20:58)
--- NOTE | 2020-12-10 20:59 | USCV_ITS ---
Lee Carole Age: 75 Gender: F : 1945 Exam Date: 12/10/2020 13:52 Ordering Phys: Rohit Person MD Technologist: Connie Valenzuela Exam Location: [facility] [place] Indication: STENTS CHEST PAIN BP: 125 / 54 HR: 80 Rhythm: Sinus Technical Quality: Adequate MEASUREMENTS (Male / Female) Normal Values 2D ECHO LV Diastolic Diameter PLAX 5.2 cm 4.2 - 5.9 / 3.9 - 5.3 cm LV Systolic Diameter PLAX 4.0 cm LV Chamber Size 3.9 cm IVS Diastolic Thickness 1.1 cm 0.6 - 1.0 / 0.6 - 0.9 cm IVS Systolic Thickness 1.8 cm LVPW Diastolic Thickness 1.4 cm 0.6 - 1.0 / 0.6 - 0.9 cm LVPW Systolic Thickness 2.2 cm RV Chamber Size 3.9 cm LVOT Diameter 2.1 cm LV Ejection Fraction 2D Teich 44.8 % LV Ejection Fraction MOD 2C 49.7 % LV Ejection Fraction 2C AL 48.3 % LA Diameter 5.4 cm LA Width 3.0 cm LA Height 4.7 cm RA Width 4.1 cm RA Height 5.1 cm Aorta at Sinotubular Diameter 3.6 cm M-MODE LV Diastolic Diameter MM 4.6 cm 4.2 - 5.9 / 3.9 - 5.3 cm LV Systolic Diameter MM 3.4 cm LV Ejection Fraction MM Teich 50.6 % IVS Diastolic Thickness MM 1.4 cm 0.6 - 1.0 / 0.6 - 0.9 cm IVS Systolic Thickness MM 1.4 cm LVPW Diastolic Thickness MM 1.4 cm 0.6 - 1.0 / 0.6 - 0.9 cm LVPW Systolic Thickness MM 1.8 cm Aortic Annulus Diameter 3.7 cm LA Ao Ratio MM 1.7 MV E Point Septal Separation 1.4 cm DOPPLER AV Peak Velocity 147.0 cm/s LVOT Peak Velocity 65.0 cm/s AV Area Cont Eq vti 1.5 cm squared AV Area Cont Eq pk 1.6 cm squared MV Area PHT 4.4 cm squared MV E' Velocity 78.0 cm/s Mitral E to MV E' Ratio 12.9 Mitral E to LV E' Lateral Ratio 11.8 Mitral E to LV E' Septal Ratio 14.3 TR Peak Velocity 201.3 cm/s TR Peak Gradient 16.2 mmHg TR Mean Velocity 143.6 cm/s TR Mean Gradient 9.4 mmHg TR Velocity Time Integral 53.9 cm TV Peak E Velocity 97.0 cm/s Right Atrial Pressure 3.0 mmHg Pulmonary Artery Systolic Pressu 19.2 mmHg PV Peak Velocity 67.0 cm/s RV Acceleration Time 0.1 s RV Ejection Time 0.3 s RV AcT/ET 0.4 FINDINGS Left Ventricle Left ventricle is mildly dilated. LV systolic function is moderately reduced with EF of 35-40%. Because of limited visualization, regional wall motion abnormalities can not be accurately assessed but grossly appears to have moderate global hypokinesis. Right Ventricle The right ventricle is normal in size and function. Right Atrium The right atrium is normal in size. Left Atrium The left atrium is mildly enlarged. Mitral Valve Thickened mitral valve without significant stenosis or prolapse. There is mild mitral regurgitation. Aortic Valve Aortic valve is thickened without significant stenosis. Tricuspid Valve Not well visualized. No significant stenosis or regurgitation. Insufficient TR jet to calculate RVSP Pulmonic Valve Not well visualized. Trace pulmonic regurgitation. Pericardium Normal pericardium without effusion. Aorta Normal ascending aorta dimension. CONCLUSIONS This is technically limited study because of poor ultrasonic windows LV systolic function is moderately reduced with EF of 35- 40%.Because of limited visualization, regional wall motion abnormalities can not be accurately assessed but grossly appears to have moderate global hypokinesis. Mild mitral regurgitation. Trace pulmonic regurgitation Compared to prior echocardiogram from 11/15/20, no significant changes are noted Ramon Garcia MD (Electronically Signed) Final Date: 10 Dec 2020 15:36 S
[2020-12-11] VITALS (11 sets, daily range): BP systolic 115–134; BP diastolic 46–93; PULSE 72–103; RESP 18–83; TEMP 36.4–36.8; O2SAT 94–99
[2020-12-11] MEDS: levothyroxine 25 mcg Tablet PO (05:16)
[2020-12-11] MEDS: levothyroxine 200 mcg Tablet PO (05:16)
[2020-12-11 06:13] LABS: Basophils # 0.1 10^3/uL (0.0-0.1); Basophils % 1.2 %; Eosinophils # 0.4 10^3/uL (0.0-0.8); Hematocrit 31.3 % (37.0-47.0); Hemoglobin 9.1 g/dL (11.5-15.3); Lymphocytes # 1.7 10^3/uL (0.8-4.8); Lymphocytes % 30.8 %; Mean Corpuscular HGB Conc 29.1 g/dL (30.0-36.0); Mean Corpuscular Hemoglobin 32.3 pg (28.0-34.0); Mean Platelet Volume 10.6 fL (7.4-10.4); Monocytes # 0.8 10^3/uL (0.2-0.9); Monocytes % 14.1 %; Neutrophils # 2.58 10^3/uL (1.8-7.7); Nucleated Red Blood Cells % 0 %; Platelet Count 267 10^3/cmm (130-400); Red Blood Count 2.82 10^6/uL (4.1-5.3); Red Cell Distribution Width 17.2 % (12.1-15.1); White Blood Count 5.6 10^3/uL (4.0-10.0)
[2020-12-11 06:35] LABS: Alanine Aminotransferase 7 U/L (0-33); Albumin Level 2.3 g/dL (3.5-5.2); Alkaline Phosphatase 99 IU/L (35-105); Anion Gap 10.8 (5-19); Aspartate Amino Transferase 33 U/L (0-32); Blood Urea Nitrogen 31 mg/dL (8-23); Calcium 7.1 mg/dL (8.5-10.5); Carbon Dioxide 27 mmol/L (22-29); Chloride 94 mmol/L (98-107); Globulin 3.3 g/dL (1.3-4.6); Glucose 119 mg/dL (65-115); Magnesium 1.7 mg/dL (1.7-2.3); Osmolality Calculated 274 mOsm/kg (285-295); Potassium 3.8 mmol/L (3.5-5.1); Sodium 128 mmol/L (136-145); Total Bilirubin 0.3 mg/dL (0.15-1.2); Total Protein 5.6 g/dL (6.6-8.7)
--- NOTE | 2020-12-11 07:10 | PM.PN ---
Subjective Subjective: Interval history: tells me that she is feeling better. however, she still requires 3 l nc o2 and has significant edema. is sob. Medications: Reviewed: Yes Medication Review Details: Current Medications Acetaminophen (Acetaminophen 325 Mg Tablet) 650 mg PO Q6H PRN PRN Reason: PAIN/FEVER Albuterol/Ipratropium (Ipratropium-Albuterol 3 Ml Neb) 3 ml INHALATION Q4H.RESPIRATORY PRN PRN Reason: SHORTNESS OF BREATH Apixaban (Apixaban 5 Mg Tablet) 2.5 mg PO BID@0900,2100 [facility] Last Admin: 12/10/20 20:59 Dose: 2.5 mg Documented by: Atorvastatin Calcium (Atorvastatin 40 Mg Tablet) 80 mg PO BEDTIME@20 [facility] Last Admin: 12/10/20 20:58 Dose: 80 mg Documented by: Bumetanide (Bumetanide 1 Mg Tablet) 2 mg PO BID [facility] Last Admin: 12/10/20 17:37 Dose: 2 mg Documented by: Calcitriol (Calcitriol 0.25 Mcg Capsule) 0.25 mcg PO DAILY [facility] Last Admin: 12/10/20 08:49 Dose: 0.25 mcg Documented by: Clopidogrel Bisulfate (Clopidogrel 75 Mg Tablet) 75 mg PO DAILY [facility] Last Admin: 12/10/20 08:41 Dose: 75 mg Documented by: Dextrose (Dextrose 50% Syringe 50 Ml) 25 ml IVP ONCE PRN; Protocol PRN Reason: hypoglycemia protocol Dextrose (Dextrose 50% Syringe 50 Ml) 50 ml IVP PRN PRN; Protocol PRN Reason: hypoglycemia protocol Digoxin (Digoxin 125 Mcg Tablet) 125 mcg PO DAILY [facility] Gabapentin (Gabapentin 100 Mg Capsule) 200 mg PO BEDTIME [facility] Last Admin: 12/10/20 20:58 Dose: 200 mg Documented by: Glucagon (Glucagon 1 Mg/Ml Inj 1 Ml) 1 mg IM ONCE PRN; Protocol PRN Reason: Adult Acute Hypoglycemia Prot. Guaifenesin/Dextromethorphan (Guaifenesin-Dextromethorphan Udc 10 Ml) 5 ml PO Q4H PRN PRN Reason: COUGH Dextrose (D5w) 500 mls @ 100 mls/hr IV ONCE PRN; Protocol PRN Reason: Adult Acute Hypoglycemia Prot Insulin Aspart (Insulin Aspart 100 Unit/1 Ml) 0 unit SUBCUT WM&BEDTIME [facility]; Protocol Last Admin: 12/10/20 21:00 Dose: 8 unit Documented by: Levothyroxine Sodium (Levothyroxine 25 Mcg Tablet) 25 mcg PO DAILY@0500 [facility] Last Admin: 12/11/20 05:16 Dose: 25 mcg Documented by: Levothyroxine Sodium (Levothyroxine 200 Mcg Tablet) 200 mcg PO DAILY@0500 [facility] Last Admin: 12/11/20 05:16 Dose: 200 mcg Documented by: Metoprolol Succinate (Metoprolol Succinate Er (24 Hr) 25 Mg Tablet) 25 mg PO DAILY [facility] Last Admin: 12/10/20 08:41 Dose: 25 mg Documented by: Metoprolol Tartrate (Metoprolol Tartrate 1 Mg/1 Ml Sdv 5 Ml) 5 mg IV Q4H PRN PRN Reason: A.FIB Multivitamins (R-Kwkqhmn-Kinjiyr C Tablet) 1 each PO DAILY [facility] Last Admin: 12/10/20 08:40 Dose: 1 each Documented by: Nystatin (Nystatin Powder 15 Gm Btl) 1 applic TOPICAL BID [facility] Last Admin: 12/10/20 17:40 Dose: 1 applic Documented by: Phenytoin (Phenytoin Er 100 Mg Capsule) 200 mg PO BID [facility] Last Admin: 12/10/20 17:37 Dose: 200 mg Documented by: Vitals/I&O/Wt Last Vital Signs Temp 98.3 F 12/11/20 03:26 Pulse 72 12/11/20 05:36 Resp 83 H 12/11/20 03:26 BP 134/56 12/11/20 03:26 Pulse Ox 95 12/11/20 03:26 12/10/20 12/11/20 12/11/20 22:59 06:59 14:59 Intake Total 600 / 1080 500 / 1580 Balance 600 / 1080 500 / 1580 Physical Exam Narrative: EXAM NARRATIVE: obese, on NC02 in bed, less SOB vs noted heent- nc/at, eomi, anicterc neck supple lungs basal crackles b/l heart irreg irreg +s1, s2 abd soft, nt, nd, +BS ext b/l edema and red ankle neuro- a,a, o x 3 mood normal ACW dialysis catheter Data : 12/11/20 04:54 12/11/20 04:54 Micro: Microbiology 12/09/20 17:30 Parasite Antigen Panel - Final Stool 12/09/20 17:30 Enteric Pathogens (PCR) - Final Stool A&P Additional A&P Information 1. TIFFANY On dialysis since early November following pneumonia and colitis Creatinine stable at3 mg/dl. 23 mg/dl bicarb and k okay -major issue is if we can keep her euvolemic w/o dialysis. also if Sodium can be controlled w/o HD -cont to monitor daily weight, uop, chemistries -hold HD today -change bumex to iv Avoid nephrotoxins Strict Is and Os 2. anemia- ferritin 759, tsat 26% 3. Afib Control on cardizem drip -monitor Digoxin level 4. CHF- 2D echo: Done on 12/10: Has failed to show any significant change from prior echo done on 11/15/2020: LV systolic function is moderately reduced with EF of 35- 40%.moderate global hypokinesis. Mild mitral regurgitation. Trace pulmonic regurgitation. -monitor w/ diuretics. may d HD 5. renal osteodystrophy/ bone- mineral- metabolism- ca 7.1- pth 186 vit d pending 6. 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
[2020-12-11 07:19] LABS: Glucose Point of Care 210 mg/dL (70-110)
[2020-12-11] MEDS: clopidogrel 75 mg Tablet PO (08:13)
[2020-12-11] MEDS: apixaban 5 mg Tablet 2.5 MG PO ×2 (08:13→21:01)
[2020-12-11] MEDS: metoprolol succinate ER (24 HR) 25 mg Tablet PO (08:13)
[2020-12-11] MEDS: b-complex-vitamin c Tablet 1 EACH PO (08:13)
[2020-12-11] MEDS: digoxin 125 mcg Tablet PO (08:13)
[2020-12-11] MEDS: nystatin powder 15 gm Btl 1 APPLIC TOPICAL ×2 (08:14→17:43)
[2020-12-11] MEDS: bumetanide 0.25 mg/mL SDV 10 mL 2 MG IV ×2 (08:17→21:01)
[2020-12-11] MEDS: calcitriol 0.25 mcg Capsule PO (09:56)
[2020-12-11] MEDS: epoetin alfa 10,000 unit/mL INJ 10000 UNIT SUBCUT (09:56)
[2020-12-11] MEDS: phenytoin ER 100 mg Capsule 200 MG PO ×2 (09:56→17:43)
--- NOTE | 2020-12-11 10:00 | PC.NURSE ---
Patient IV in right wrist infiltrated this morning, this nurse attempted IV insertion x3. Charge nurse attempted and was unsuccessful. model and pattern supervisor was notified, IV was placed after 9 attempts total. New IV placed in the Left forearm. Patient tolerated this well.
[2020-12-11 11:21] LABS: Glucose Point of Care 275 mg/dL (70-110)
--- NOTE | 2020-12-11 14:30 | PM.PN ---
Subjective Subjective: Interval history: No acute interim events. No HD today.significant LE edema persisting Medications: Reviewed: Yes Medication Review Details: Current Medications Acetaminophen (Acetaminophen 325 Mg Tablet) 650 mg PO Q6H PRN PRN Reason: PAIN/FEVER Albuterol/Ipratropium (Ipratropium-Albuterol 3 Ml Neb) 3 ml INHALATION Q4H.RESPIRATORY PRN PRN Reason: SHORTNESS OF BREATH Apixaban (Apixaban 5 Mg Tablet) 2.5 mg PO BID@0900,2100 [facility] Last Admin: 12/10/20 20:59 Dose: 2.5 mg Documented by: Atorvastatin Calcium (Atorvastatin 40 Mg Tablet) 80 mg PO BEDTIME@20 [facility] Last Admin: 12/10/20 20:58 Dose: 80 mg Documented by: Bumetanide (Bumetanide 1 Mg Tablet) 2 mg PO BID [facility] Last Admin: 12/10/20 17:37 Dose: 2 mg Documented by: Calcitriol (Calcitriol 0.25 Mcg Capsule) 0.25 mcg PO DAILY [facility] Last Admin: 12/10/20 08:49 Dose: 0.25 mcg Documented by: Clopidogrel Bisulfate (Clopidogrel 75 Mg Tablet) 75 mg PO DAILY [facility] Last Admin: 12/10/20 08:41 Dose: 75 mg Documented by: Dextrose (Dextrose 50% Syringe 50 Ml) 25 ml IVP ONCE PRN; Protocol PRN Reason: hypoglycemia protocol Dextrose (Dextrose 50% Syringe 50 Ml) 50 ml IVP PRN PRN; Protocol PRN Reason: hypoglycemia protocol Digoxin (Digoxin 125 Mcg Tablet) 125 mcg PO DAILY [facility] Gabapentin (Gabapentin 100 Mg Capsule) 200 mg PO BEDTIME [facility] Last Admin: 12/10/20 20:58 Dose: 200 mg Documented by: Glucagon (Glucagon 1 Mg/Ml Inj 1 Ml) 1 mg IM ONCE PRN; Protocol PRN Reason: Adult Acute Hypoglycemia Prot. Guaifenesin/Dextromethorphan (Guaifenesin-Dextromethorphan Udc 10 Ml) 5 ml PO Q4H PRN PRN Reason: COUGH Dextrose (D5w) 500 mls @ 100 mls/hr IV ONCE PRN; Protocol PRN Reason: Adult Acute Hypoglycemia Prot Insulin Aspart (Insulin Aspart 100 Unit/1 Ml) 0 unit SUBCUT WM&BEDTIME [facility]; Protocol Last Admin: 12/10/20 21:00 Dose: 8 unit Documented by: Levothyroxine Sodium (Levothyroxine 25 Mcg Tablet) 25 mcg PO DAILY@0500 [facility] Last Admin: 12/11/20 05:16 Dose: 25 mcg Documented by: Levothyroxine Sodium (Levothyroxine 200 Mcg Tablet) 200 mcg PO DAILY@0500 [facility] Last Admin: 12/11/20 05:16 Dose: 200 mcg Documented by: Metoprolol Succinate (Metoprolol Succinate Er (24 Hr) 25 Mg Tablet) 25 mg PO DAILY [facility] Last Admin: 12/10/20 08:41 Dose: 25 mg Documented by: Metoprolol Tartrate (Metoprolol Tartrate 1 Mg/1 Ml Sdv 5 Ml) 5 mg IV Q4H PRN PRN Reason: A.FIB Multivitamins (C-Izjhcdk-Lhujyir C Tablet) 1 each PO DAILY [facility] Last Admin: 12/10/20 08:40 Dose: 1 each Documented by: Nystatin (Nystatin Powder 15 Gm Btl) 1 applic TOPICAL BID [facility] Last Admin: 12/10/20 17:40 Dose: 1 applic Documented by: Phenytoin (Phenytoin Er 100 Mg Capsule) 200 mg PO BID [facility] Last Admin: 12/10/20 17:37 Dose: 200 mg Documented by: Vitals/I&O/Wt Last Vital Signs Temp 98.0 F 12/11/20 10:35 Pulse 96 12/11/20 10:35 Resp 22 H 12/11/20 10:35 BP 134/46 12/11/20 10:35 Pulse Ox 99 12/11/20 10:35 12/10/20 12/11/20 12/11/20 22:59 06:59 14:59 Intake Total 600 / 1080 500 / 1580 600 / 600 Balance 600 / 1080 500 / 1580 600 / 600 Physical Exam Narrative: EXAM NARRATIVE: GEN: Awake, alert and oriented, no acute distress CVS: S1S2 N RS: CTA B/L except crackles over RUL Abd: Soft, nt/nd , bs+ 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: no focal neuro deficits Data : 12/11/20 04:54 12/11/20 04:54 Micro: Microbiology 12/09/20 17:30 Parasite Antigen Panel - Final Stool 12/09/20 17:30 Enteric Pathogens (PCR) - Final Stool A&P Assessment and plan (1) Chest pain: Status: Acute Qualifiers: Chest pain type: unspecified Qualified Code(s): R07.9 - Chest pain, unspecified (2) Congestive heart failure: Status: Acute Qualifiers: Heart failure type: unspecified (3) Atrial fibrillation with RVR: Status: Acute (4) CKD (chronic kidney disease): Status: Acute Additional A&P Information # NSTEMI type II: Likely secondary to decompensated heart failure with reduced ejection fraction 2/2 Fluid overloaded with underlying end-stage renal diseas as well secondary to A. fib with RVR. Troponin trend without significant delta. 2D echo: Done on 12/10: no significant interval change, moderately reduced with EF of 35- 40%.moderate global hypokinesis. Mild mitral regurgitation. Trace pulmonic regurgitation. Telemetry: Continues to be in A. fib with rate control Heparin drip has been discontinued, now on Eliquis 2.5mg po BID # H/O Coronary artery disease status post stent: Recent history of coronary artery disease s/p stent to LAD. Plavix 75 mg p.o. daily Metoprolol succinate 25 mg p.o. daily Atorvastatin 80 mg p.o. daily. # A. fib: With RVR Current heart rate is better controlled Metoprolol succinate 25 mg p.o. daily Eliquis 2.5 mg every 12 hourly Initially digoxin on hold as serum digoxin level 1.3 A.m. digoxin level: 0.6 Digoxin resumed Continue to monitor serum digoxin level # Fluid overloaded with underlying end-stage renal disease This seems secondary to underlying renal failure, next session planned tomorrow Bumex changed to 2mg iv q12h Appreciate renal input # Loose stool Patient is stating that her stools are loose since her previous hospitalization, she received multiple antibiotics in last 1 month, shiga toxins were detected, she is afebrile no leukocytosis, mild abdominal tenderness in hypogastric region on deep palpation. negative enteric bacterial panel, parasitic panel, C. difficile N/A # Type 2 diabetes: MDSSI Monitor fingerstick glucose # Hypothyroidism: Levothyroxine 225 MCG p.o. daily Goals of care discussed with the patient: Full code DVT prophylaxis : on eliquis Renal dialysis High risk for mortality and morbidity Attestations Medical Necessity Statement*: ongoing need for iv diuresis, HD tomorrow Coding Level of Care Code Acute Greaser Helper for Chg Fwd Diagnoses Chest pain R07.9 Chest pain type: unspecified Congestive heart failure I50.9 Heart failure type: unspecified Atrial fibrillation with RVR I48.91 CKD (chronic kidney disease) N18.9
[2020-12-11 16:24] LABS: Glucose Point of Care 66 mg/dL (70-110)
[2020-12-11 16:24] LABS: Glucose Point of Care 67 mg/dL (70-110)
[2020-12-11 17:34] LABS: Glucose Point of Care 104 mg/dL (70-110)
[2020-12-11 20:19] LABS: Glucose Point of Care 148 mg/dL (70-110)
[2020-12-11] MEDS: atorvastatin 40 mg Tablet 80 MG PO (21:00)
[2020-12-11] MEDS: gabapentin 100 mg Capsule 200 MG PO (21:02)
[2020-12-12] VITALS (13 sets, daily range): BP systolic 109–153; BP diastolic 46–84; PULSE 58–93; RESP 15–30; TEMP 36.4–36.7; O2SAT 94–98
[2020-12-12] MEDS: levothyroxine 25 mcg Tablet PO (04:17)
[2020-12-12] MEDS: levothyroxine 200 mcg Tablet PO (04:17)
[2020-12-12 04:45] LABS: Basophils # 0.1 10^3/uL (0.0-0.1); Basophils % 1.4 %; Eosinophils # 0.3 10^3/uL (0.0-0.8); Eosinophils % 5.2 %; Hematocrit 31.5 % (37.0-47.0); Hemoglobin 9.6 g/dL (11.5-15.3); Lymphocytes # 1.5 10^3/uL (0.8-4.8); Lymphocytes % 28.3 %; Mean Corpuscular HGB Conc 30.5 g/dL (30.0-36.0); Mean Corpuscular Hemoglobin 32.8 pg (28.0-34.0); Mean Corpuscular Volume 107.5 fL (81-99); Mean Platelet Volume 10.4 fL (7.4-10.4); Monocytes # 0.7 10^3/uL (0.2-0.9); Monocytes % 13.2 %; Neutrophils # 2.63 10^3/uL (1.8-7.7); Neutrophils % 51.1 %; Nucleated Red Blood Cells % 0 %; Platelet Count 283 10^3/cmm (130-400); Red Blood Count 2.93 10^6/uL (4.1-5.3); Red Cell Distribution Width 17.1 % (12.1-15.1); White Blood Count 5.2 10^3/uL (4.0-10.0)
[2020-12-12 05:16] LABS: Alanine Aminotransferase 10 U/L (0-33); Albumin Level 2.6 g/dL (3.5-5.2); Alkaline Phosphatase 110 IU/L (35-105); Anion Gap 11.5 (5-19); Aspartate Amino Transferase 34 U/L (0-32); Blood Urea Nitrogen 35 mg/dL (8-23); Calcium 7.1 mg/dL (8.5-10.5); Carbon Dioxide 30 mmol/L (22-29); Chloride 99 mmol/L (98-107); Digoxin 0.7 ng/mL (0.6-1.2); Globulin 3.3 g/dL (1.3-4.6); Glucose 153 mg/dL (65-115); Magnesium 1.7 mg/dL (1.7-2.3); Osmolality Calculated 293 mOsm/kg (285-295); Phosphorus 4.3 mg/dL (2.5-4.5); Potassium 4.5 mmol/L (3.5-5.1); Sodium 136 mmol/L (136-145); Thyroid Stimulating Hormone 3.84 uIU/mL (0.27-4.20); Total Bilirubin 0.3 mg/dL (0.15-1.2); Total Protein 5.9 g/dL (6.6-8.7)
[2020-12-12 07:14] LABS: Glucose Point of Care 167 mg/dL (70-110)
[2020-12-12] MEDS: digoxin 125 mcg Tablet PO (07:49)
[2020-12-12] MEDS: phenytoin ER 100 mg Capsule 200 MG PO ×2 (07:49→17:29)
[2020-12-12] MEDS: calcitriol 0.25 mcg Capsule PO (07:49)
[2020-12-12] MEDS: metoprolol succinate ER (24 HR) 25 mg Tablet PO (07:49)
[2020-12-12] MEDS: clopidogrel 75 mg Tablet PO (07:50)
[2020-12-12] MEDS: apixaban 5 mg Tablet 2.5 MG PO ×2 (07:50→20:47)
[2020-12-12] MEDS: nystatin powder 15 gm Btl 1 APPLIC TOPICAL ×2 (07:51→17:30)
--- NOTE | 2020-12-12 08:58 | PM.PN ---
Subjective Subjective: Interval history: still sob, less edema, good uop Medications: Reviewed: Yes Medication Review Details: Current Medications Acetaminophen (Acetaminophen 325 Mg Tablet) 650 mg PO Q6H PRN PRN Reason: PAIN/FEVER Albuterol/Ipratropium (Ipratropium-Albuterol 3 Ml Neb) 3 ml INHALATION Q4H.RESPIRATORY PRN PRN Reason: SHORTNESS OF BREATH Apixaban (Apixaban 5 Mg Tablet) 2.5 mg PO BID@0900,2100 [facility] Last Admin: 12/12/20 07:50 Dose: 2.5 mg Documented by: Atorvastatin Calcium (Atorvastatin 40 Mg Tablet) 80 mg PO BEDTIME@20 [facility] Last Admin: 12/11/20 21:00 Dose: 80 mg Documented by: Bumetanide (Bumetanide 1 Mg Tablet) 2 mg PO BID [facility] Calcitriol (Calcitriol 0.25 Mcg Capsule) 0.25 mcg PO DAILY [facility] Last Admin: 12/12/20 07:49 Dose: 0.25 mcg Documented by: Clopidogrel Bisulfate (Clopidogrel 75 Mg Tablet) 75 mg PO DAILY [facility] Last Admin: 12/12/20 07:50 Dose: 75 mg Documented by: Dextrose (Dextrose 50% Syringe 50 Ml) 25 ml IVP ONCE PRN; Protocol PRN Reason: hypoglycemia protocol Dextrose (Dextrose 50% Syringe 50 Ml) 50 ml IVP PRN PRN; Protocol PRN Reason: hypoglycemia protocol Digoxin (Digoxin 125 Mcg Tablet) 125 mcg PO DAILY [facility] Last Admin: 12/12/20 07:49 Dose: 125 mcg Documented by: Gabapentin (Gabapentin 100 Mg Capsule) 200 mg PO BEDTIME [facility] Last Admin: 12/11/20 21:02 Dose: 200 mg Documented by: Glucagon (Glucagon 1 Mg/Ml Inj 1 Ml) 1 mg IM ONCE PRN; Protocol PRN Reason: Adult Acute Hypoglycemia Prot. Guaifenesin/Dextromethorphan (Guaifenesin-Dextromethorphan Udc 10 Ml) 5 ml PO Q4H PRN PRN Reason: COUGH Dextrose (D5w) 500 mls @ 100 mls/hr IV ONCE PRN; Protocol PRN Reason: Adult Acute Hypoglycemia Prot Insulin Aspart (Insulin Aspart 100 Unit/1 Ml) 0 unit SUBCUT WM&BEDTIME [facility]; Protocol Last Admin: 12/12/20 07:48 Dose: 4 unit Documented by: Levothyroxine Sodium (Levothyroxine 25 Mcg Tablet) 25 mcg PO DAILY@0500 [facility] Last Admin: 12/12/20 04:17 Dose: 25 mcg Documented by: Levothyroxine Sodium (Levothyroxine 200 Mcg Tablet) 200 mcg PO DAILY@0500 [facility] Last Admin: 12/12/20 04:17 Dose: 200 mcg Documented by: Metoprolol Succinate (Metoprolol Succinate Er (24 Hr) 25 Mg Tablet) 25 mg PO DAILY [facility] Last Admin: 12/12/20 07:49 Dose: 25 mg Documented by: Metoprolol Tartrate (Metoprolol Tartrate 1 Mg/1 Ml Sdv 5 Ml) 5 mg IV Q4H PRN PRN Reason: A.FIB Multivitamins (F-Wdxtqzj-Pkcbowo C Tablet) 1 each PO DAILY [facility] Last Admin: 12/11/20 08:13 Dose: 1 each Documented by: Nystatin (Nystatin Powder 15 Gm Btl) 1 applic TOPICAL BID [facility] Last Admin: 12/12/20 07:51 Dose: 1 applic Documented by: Phenytoin (Phenytoin Er 100 Mg Capsule) 200 mg PO BID [facility] Last Admin: 12/12/20 07:49 Dose: 200 mg Documented by: Vitals/I&O/Wt Last Vital Signs Temp 97.9 F 12/12/20 07:01 Pulse 90 12/12/20 07:49 Resp 21 H 12/12/20 07:01 BP 147/60 12/12/20 07:01 Pulse Ox 94 12/12/20 07:01 12/11/20 12/12/20 12/12/20 22:59 06:59 14:59 Intake Total 360 / 960 120 / 1080 240 / 240 Balance 360 / 960 120 / 1080 240 / 240 Physical Exam Narrative: EXAM NARRATIVE: obese, on NC02 sitting up in chair vs noted heent- nc/at, eomi, anicterc neck supple lungs basal crackles b/l heart irreg irreg +s1, s2 abd soft, nt, nd, +BS ext b/l edema and red ankles- improving neuro- a,a, o x 3 mood normal ACW dialysis catheter Data : 12/12/20 04:24 12/12/20 04:24 Micro: Microbiology 12/11/20 22:25 C.difficile Toxin B Gene (PCR) - Final Stool Routine Collection A&P Additional A&P Information 1. TIFFANY On dialysis since early November following pneumonia and colitis Creatinine improved to 2 mg/dl bicarb and k okay -major issue is if we can keep her euvolemic w/o dialysis. she hada good diuresis overnight and na improved -cont to monitor daily weight, uop, chemistries -hold HD today -change bumex to po as she does not have a iv Avoid nephrotoxins Strict Is and Os 2. anemia- ferritin 759, tsat 26% 3. Afib -per cardiology - eliquis -monitor Digoxin level - would dec dose to M WF -on metoprolol 4. CHF- 2D echo: Done on 12/10: Has failed to show any significant change from prior echo done on 11/15/2020: LV systolic function is moderately reduced with EF of 35- 40%.moderate global hypokinesis. Mild mitral regurgitation. Trace pulmonic regurgitation. -monitor w/ diuretics. november d HD 5. renal osteodystrophy/ bone- mineral- metabolism- ca 7.1- pth 186 vit d 31 6. replete mag as needed 7. 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
[2020-12-12] MEDS: bumetanide 1 mg Tablet 2 MG PO ×2 (09:08→17:29)
[2020-12-12] MEDS: b-complex-vitamin c Tablet 1 EACH PO (09:09)
--- NOTE | 2020-12-12 10:44 | PC.SOCIAL ---
IMM Updated Updated pt on Pg 2 IMM. No questions voiced. Provided pt a copy. Signed, dated, & timed copy in chart.
[2020-12-12 11:38] LABS: Glucose Point of Care 152 mg/dL (70-110)
--- NOTE | 2020-12-12 15:35 | P.PN_ITS ---
Subjective Subjective: Interval history: Renal function improving, creatinine renal function improving, creatinine down to 2, LE swelling persisting, mildly imprpved. Lost iv acess Medications: Reviewed: Yes Medication Review Details: Current Medications Acetaminophen (Acetaminophen 325 Mg Tablet) 650 mg PO Q6H PRN PRN Reason: PAIN/FEVER Albuterol/Ipratropium (Ipratropium-Albuterol 3 Ml Neb) 3 ml INHALATION Q4H.RESPIRATORY PRN PRN Reason: SHORTNESS OF BREATH Apixaban (Apixaban 5 Mg Tablet) 2.5 mg PO BID@0900,2100 [facility] Last Admin: 12/12/20 07:50 Dose: 2.5 mg Documented by: Atorvastatin Calcium (Atorvastatin 40 Mg Tablet) 80 mg PO BEDTIME@20 [facility] Last Admin: 12/11/20 21:00 Dose: 80 mg Documented by: Bumetanide (Bumetanide 1 Mg Tablet) 2 mg PO BID [facility] Calcitriol (Calcitriol 0.25 Mcg Capsule) 0.25 mcg PO DAILY [facility] Last Admin: 12/12/20 07:49 Dose: 0.25 mcg Documented by: Clopidogrel Bisulfate (Clopidogrel 75 Mg Tablet) 75 mg PO DAILY [facility] Last Admin: 12/12/20 07:50 Dose: 75 mg Documented by: Dextrose (Dextrose 50% Syringe 50 Ml) 25 ml IVP ONCE PRN; Protocol PRN Reason: hypoglycemia protocol Dextrose (Dextrose 50% Syringe 50 Ml) 50 ml IVP PRN PRN; Protocol PRN Reason: hypoglycemia protocol Digoxin (Digoxin 125 Mcg Tablet) 125 mcg PO DAILY [facility] Last Admin: 12/12/20 07:49 Dose: 125 mcg Documented by: Gabapentin (Gabapentin 100 Mg Capsule) 200 mg PO BEDTIME [facility] Last Admin: 12/11/20 21:02 Dose: 200 mg Documented by: Glucagon (Glucagon 1 Mg/Ml Inj 1 Ml) 1 mg IM ONCE PRN; Protocol PRN Reason: Adult Acute Hypoglycemia Prot. Guaifenesin/Dextromethorphan (Guaifenesin-Dextromethorphan Udc 10 Ml) 5 ml PO Q4H PRN PRN Reason: COUGH Dextrose (D5w) 500 mls @ 100 mls/hr IV ONCE PRN; Protocol PRN Reason: Adult Acute Hypoglycemia Prot Insulin Aspart (Insulin Aspart 100 Unit/1 Ml) 0 unit SUBCUT WM&BEDTIME [facility]; Protocol Last Admin: 12/12/20 07:48 Dose: 4 unit Documented by: Levothyroxine Sodium (Levothyroxine 25 Mcg Tablet) 25 mcg PO DAILY@0500 [facility] Last Admin: 12/12/20 04:17 Dose: 25 mcg Documented by: Levothyroxine Sodium (Levothyroxine 200 Mcg Tablet) 200 mcg PO DAILY@0500 [facility] Last Admin: 12/12/20 04:17 Dose: 200 mcg Documented by: Metoprolol Succinate (Metoprolol Succinate Er (24 Hr) 25 Mg Tablet) 25 mg PO DAILY [facility] Last Admin: 12/12/20 07:49 Dose: 25 mg Documented by: Metoprolol Tartrate (Metoprolol Tartrate 1 Mg/1 Ml Sdv 5 Ml) 5 mg IV Q4H PRN PRN Reason: A.FIB Multivitamins (X-Mpltawt-Abnwzsq C Tablet) 1 each PO DAILY [facility] Last Admin: 12/11/20 08:13 Dose: 1 each Documented by: Nystatin (Nystatin Powder 15 Gm Btl) 1 applic TOPICAL BID [facility] Last Admin: 12/12/20 07:51 Dose: 1 applic Documented by: Phenytoin (Phenytoin Er 100 Mg Capsule) 200 mg PO BID [facility] Last Admin: 12/12/20 07:49 Dose: 200 mg Documented by: Vitals/I&O/Wt Last Vital Signs Temp 98.0 F 12/12/20 10:49 Pulse 77 12/12/20 14:00 Resp 18 12/12/20 10:56 BP 109/46 12/12/20 10:49 Pulse Ox 98 12/12/20 14:00 12/12/20 12/12/20 12/12/20 06:59 14:59 22:59 Intake Total 120 / 1080 240 / 240 Balance 120 / 1080 240 / 240 Physical Exam Narrative: EXAM NARRATIVE: GEN: Awake, alert and oriented, no acute distress CVS: S1S2 N RS: CTA B/L except crackles over RUL Abd: Soft, nt/nd , bs+ 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 Data : 12/12/20 04:24 12/12/20 04:24 Micro: Microbiology 12/11/20 22:25 C.difficile Toxin B Gene (PCR) - Final Stool Routine Collection A&P Assessment and plan (1) Chest pain: Status: Acute Qualifiers: Chest pain type: unspecified Qualified Code(s): R07.9 - Chest pain, unspecified (2) Congestive heart failure: Status: Acute Qualifiers: Heart failure type: unspecified (3) Atrial fibrillation with RVR: Status: Acute (4) CKD (chronic kidney disease): Status: Acute Additional A&P Information # NSTEMI type II: Likely secondary to decompensated heart failure with reduced ejection fraction 2/2 Fluid overloaded with underlying end-stage renal diseas as well secondary to A. fib with RVR. Troponin trend without significant delta. 2D echo: Done on 12/10: no significant interval change, moderately reduced with EF of 35- 40%.moderate global hypokinesis. Mild mitral regurgitation. Trace pulmonic regurgitation. Telemetry: Continues to be in A. fib with rate control Heparin drip has been discontinued, now on Eliquis 2.5mg po BID # H/O Coronary artery disease status post stent: Recent history of coronary artery disease s/p stent to LAD. Plavix 75 mg p.o. daily Metoprolol succinate 25 mg p.o. daily Atorvastatin 80 mg p.o. daily. # A. fib: With RVR Current heart rate is better controlled Metoprolol succinate 25 mg p.o. daily Eliquis 2.5 mg every 12 hourly Initially digoxin on hold as serum digoxin level 1.3 Digoxin resumed Continue to monitor serum digoxin level # Decompensated heart failure; with underlying end-stage renal disease Bumex iv chanegd to po due to lack of IV acess , currently on po BID # Loose stool Patient is stating that her stools are loose since her previous hospitalization, she received multiple antibiotics in last 1 month, shiga toxins were detected, she is afebrile no leukocytosis, mild abdominal tenderness in hypogastric region on deep palpation. negative enteric bacterial panel, parasitic panel, C. difficile negative # Type 2 diabetes: MDSSI Monitor fingerstick glucose # Hypothyroidism: Levothyroxine 225 MCG p.o. daily Goals of care discussed with the patient: Full code DVT prophylaxis : on eliquis Renal dialysis High risk for mortality and morbidity Attestations Medical Necessity Statement*: onoging need for diuresis, planend discharge in the next 24-48 hrs if renal function remains stable Coding Level of Care Code Acute Bilingual Executive Assistant for Sosa Bates Diagnoses Chest pain R07.9 Chest pain type: unspecified Congestive heart failure I50.9 Heart failure type: unspecified Atrial fibrillation with RVR I48.91 CKD (chronic kidney disease) N18.9
[2020-12-12 16:39] LABS: Glucose Point of Care 104 mg/dL (70-110)
[2020-12-12] MEDS: atorvastatin 40 mg Tablet 80 MG PO (20:46)
[2020-12-12] MEDS: gabapentin 100 mg Capsule 200 MG PO (20:46)
--- NOTE | 2020-12-12 23:13 | PC.NURSE ---
NURSE'S NOTE TRANSFER TO ROOM 276-2 REPORT GIVEN TO ARABELLA QUINN ON MED/SURG UNIT. AT APPROXIMATELY 2200, PT TRANSPORTED TO ROOM 274-2 IN BED PER THIS NURSE AND BACKSHOE PERSON. PT ALERT AND ORIENTED X4, MOVES ALL EXTREMITIES AND FOLLOWS COMMANDS. ALL VS AND ASSESSMENTS CHARTED. NO DISTRESS NOTED UPON TRANSFER.
[2020-12-12 23:25] LABS: Glucose Point of Care 170 mg/dL (70-110)
[2020-12-13] VITALS: BP 160/64; PULSE 70; RESP 18; TEMP 36.5; O2SAT 93
[2020-12-13 04:00] VITALS: BP 138/85; PULSE 84; RESP 16; TEMP 36.7; O2SAT 95
[2020-12-13] MEDS: levothyroxine 25 mcg Tablet PO (05:22)
[2020-12-13] MEDS: levothyroxine 200 mcg Tablet PO (05:22)
[2020-12-13 06:03] LABS: Basophils # 0.1 10^3/uL (0.0-0.1); Basophils % 1.6 %; Eosinophils # 0.3 10^3/uL (0.0-0.8); Eosinophils % 5.4 %; Hemoglobin 10.6 g/dL (11.5-15.3); Lymphocytes # 1.6 10^3/uL (0.8-4.8); Lymphocytes % 31.2 %; Mean Corpuscular HGB Conc 30.3 g/dL (30.0-36.0); Mean Corpuscular Hemoglobin 32.9 pg (28.0-34.0); Mean Corpuscular Volume 108.7 fL (81-99); Mean Platelet Volume 10.5 fL (7.4-10.4); Monocytes # 0.7 10^3/uL (0.2-0.9); Monocytes % 12.8 %; Neutrophils # 2.49 10^3/uL (1.8-7.7); Neutrophils % 48.2 %; Nucleated Red Blood Cells % 0 %; Platelet Count 319 10^3/cmm (130-400); Red Blood Count 3.22 10^6/uL (4.1-5.3); Red Cell Distribution Width 17.1 % (12.1-15.1); White Blood Count 5.2 10^3/uL (4.0-10.0)
[2020-12-13 06:29] LABS: Alanine Aminotransferase 10 U/L (0-33); Albumin Level 2.9 g/dL (3.5-5.2); Alkaline Phosphatase 122 IU/L (35-105); Anion Gap 11.3 (5-19); Aspartate Amino Transferase 31 U/L (0-32); Blood Urea Nitrogen 37 mg/dL (8-23); Calcium 7.3 mg/dL (8.5-10.5); Carbon Dioxide 31 mmol/L (22-29); Chloride 95 mmol/L (98-107); Globulin 3.9 g/dL (1.3-4.6); Glucose 124 mg/dL (65-115); Magnesium 1.6 mg/dL (1.7-2.3); Osmolality Calculated 286 mOsm/kg (285-295); Potassium 4.3 mmol/L (3.5-5.1); Sodium 133 mmol/L (136-145); Total Bilirubin 0.4 mg/dL (0.15-1.2); Total Protein 6.8 g/dL (6.6-8.7)
[2020-12-13 06:33] LABS: Digoxin 0.9 ng/mL (0.6-1.2); Phosphorus 4.6 mg/dL (2.5-4.5)
[2020-12-13 06:54] LABS: Glucose Point of Care 125 mg/dL (70-110)
[2020-12-13 07:53] LABS: Slide Review Slide Review Perform
[2020-12-13 07:57] VITALS: PULSE 111; RESP 18; O2SAT 98
[2020-12-13 08:06] VITALS: BP 138/78; PULSE 91; RESP 18; TEMP 36.6; O2SAT 91
--- NOTE | 2020-12-13 08:22 | PM.PN ---
Subjective Subjective: Interval history: still swollen. feels better. wants to go home. no n/v/f/c/muñoz/d Medications: Reviewed: Yes Medication Review Details: Current Medications Acetaminophen (Acetaminophen 325 Mg Tablet) 650 mg PO Q6H PRN PRN Reason: PAIN/FEVER Albuterol/Ipratropium (Ipratropium-Albuterol 3 Ml Neb) 3 ml INHALATION Q4H.RESPIRATORY PRN PRN Reason: SHORTNESS OF BREATH Apixaban (Apixaban 5 Mg Tablet) 2.5 mg PO BID@0900,2100 [facility] Last Admin: 12/12/20 20:47 Dose: 2.5 mg Documented by: Atorvastatin Calcium (Atorvastatin 40 Mg Tablet) 80 mg PO BEDTIME@20 [facility] Last Admin: 12/12/20 20:46 Dose: 80 mg Documented by: Bumetanide (Bumetanide 1 Mg Tablet) 2 mg PO BID [facility] Last Admin: 12/12/20 17:29 Dose: 2 mg Documented by: Calcitriol (Calcitriol 0.25 Mcg Capsule) 0.25 mcg PO DAILY [facility] Last Admin: 12/12/20 07:49 Dose: 0.25 mcg Documented by: Clopidogrel Bisulfate (Clopidogrel 75 Mg Tablet) 75 mg PO DAILY [facility] Last Admin: 12/12/20 07:50 Dose: 75 mg Documented by: Dextrose (Dextrose 50% Syringe 50 Ml) 25 ml IVP ONCE PRN; Protocol PRN Reason: hypoglycemia protocol Dextrose (Dextrose 50% Syringe 50 Ml) 50 ml IVP PRN PRN; Protocol PRN Reason: hypoglycemia protocol Digoxin (Digoxin 125 Mcg Tablet) 125 mcg PO DAILY [facility] Last Admin: 12/12/20 07:49 Dose: 125 mcg Documented by: Gabapentin (Gabapentin 100 Mg Capsule) 200 mg PO BEDTIME [facility] Last Admin: 12/12/20 20:46 Dose: 200 mg Documented by: Glucagon (Glucagon 1 Mg/Ml Inj 1 Ml) 1 mg IM ONCE PRN; Protocol PRN Reason: Adult Acute Hypoglycemia Prot. Guaifenesin/Dextromethorphan (Guaifenesin-Dextromethorphan Udc 10 Ml) 5 ml PO Q4H PRN PRN Reason: COUGH Dextrose (D5w) 500 mls @ 100 mls/hr IV ONCE PRN; Protocol PRN Reason: Adult Acute Hypoglycemia Prot Insulin Aspart (Insulin Aspart 100 Unit/1 Ml) 0 unit SUBCUT WM&BEDTIME [facility]; Protocol Last Admin: 12/12/20 20:44 Dose: 4 unit Documented by: Levothyroxine Sodium (Levothyroxine 25 Mcg Tablet) 25 mcg PO DAILY@0500 [facility] Last Admin: 12/13/20 05:22 Dose: 25 mcg Documented by: Levothyroxine Sodium (Levothyroxine 200 Mcg Tablet) 200 mcg PO DAILY@0500 [facility] Last Admin: 12/13/20 05:22 Dose: 200 mcg Documented by: Metoprolol Succinate (Metoprolol Succinate Er (24 Hr) 25 Mg Tablet) 25 mg PO DAILY [facility] Last Admin: 12/12/20 07:49 Dose: 25 mg Documented by: Metoprolol Tartrate (Metoprolol Tartrate 1 Mg/1 Ml Sdv 5 Ml) 5 mg IV Q4H PRN PRN Reason: A.FIB Multivitamins (O-Tmsjlkg-Vsweliz C Tablet) 1 each PO DAILY [facility] Last Admin: 12/12/20 09:09 Dose: 1 each Documented by: Nystatin (Nystatin Powder 15 Gm Btl) 1 applic TOPICAL BID [facility] Last Admin: 12/12/20 17:30 Dose: 1 applic Documented by: Phenytoin (Phenytoin Er 100 Mg Capsule) 200 mg PO BID [facility] Last Admin: 12/12/20 17:29 Dose: 200 mg Documented by: Vitals/I&O/Wt Last Vital Signs Temp 97.8 F 12/13/20 08:06 Pulse 91 12/13/20 08:06 Resp 18 12/13/20 08:06 BP 138/78 12/13/20 08:06 Pulse Ox 91 12/13/20 08:06 12/12/20 12/13/20 12/13/20 22:59 06:59 14:59 Intake Total 390 / 630 800 / 1430 Output Total 200 / 200 Balance 190 / 430 800 / 1230 Physical Exam Narrative: EXAM NARRATIVE: obese, using NC02, lying down in chair vs noted heent- nc/at, eomi, anicterc neck supple lungs - dec basal crackles b/l heart irreg irreg +s1, s2 abd soft, nt, nd, +BS ext b/l edema and red ankles- improving neuro- a,a, o x 3 mood normal ACW dialysis catheter Data : 12/13/20 05:31 12/13/20 05:31 Micro: Microbiology 12/07/20 17:25 Blood Culture - Final Blood NO GROWTH AFTER 5 DAYS 12/07/20 17:08 Blood Culture - Final Blood NO GROWTH AFTER 5 DAYS A&P Additional A&P Information 1. TIFFANY On dialysis since early November following pneumonia and colitis Creatinine improved to 1.8 mg/dl bicarb high, and k okay -major issue is if we can keep her euvolemic w/o dialysis. she continues to have a good diuresis -however she is hyponatremic- 133. though overall improved -cont to monitor daily weight, uop, chemistries -hold HD today -continue bumex po as she does not have a iv Avoid nephrotoxins Strict Is and Os -would remove catheter in a few days if remains off of dialysis 2. anemia- ferritin 759, tsat 26% 3. Afib -per cardiology - eliquis -monitor Digoxin level - is okay now at 0.9- may need dec dose -on metoprolol 4. CHF- 2D echo: Done on 12/10: Has failed to show any significant change from prior echo done on 11/15/2020: LV systolic function is moderately reduced with EF of 35- 40%.moderate global hypokinesis. Mild mitral regurgitation. Trace pulmonic regurgitation. -monitor w/ diuretics. november d HD 5. renal osteodystrophy/ bone- mineral- metabolism- ca 7.3- pth 186 vit d 31 6. replete mag as needed 7. dm control Thanks for consultation, pleasure to follow these cases with you Patient seen and examined via telemedicine, with the assistance of the bedside RN > 25 min spent in evaluation and mgmt of patient Attestations Medical Necessity Statement*: per hospitalist Time Spent in Patient Care: 16 - 35 minutes Coding Level of Care Code Acute Monument Installer for Sosa Bates
[2020-12-13 08:59] VITALS: PULSE 91
[2020-12-13] MEDS: bumetanide 1 mg Tablet 2 MG PO (08:59)
[2020-12-13] MEDS: phenytoin ER 100 mg Capsule 200 MG PO (08:59)
[2020-12-13] MEDS: calcitriol 0.25 mcg Capsule PO (08:59)
[2020-12-13] MEDS: digoxin 125 mcg Tablet PO (08:59)
[2020-12-13] MEDS: apixaban 5 mg Tablet 2.5 MG PO (09:00)
[2020-12-13] MEDS: b-complex-vitamin c Tablet 1 EACH PO (09:00)
[2020-12-13] MEDS: clopidogrel 75 mg Tablet PO (09:00)
[2020-12-13] MEDS: metoprolol succinate ER (24 HR) 25 mg Tablet PO (09:00)
[2020-12-13] MEDS: nystatin powder 15 gm Btl 1 APPLIC TOPICAL (09:01)
--- NOTE | 2020-12-13 11:30 | PC.NURSE ---
THIS NURSE CALLED REPORT TO [facility] AT [facility]. ROSALINA CHANGED PATIENT'S DIALYSIS CATHETER DRESSING TODAY. PATIENT HAD BOWEL MOVEMENT AND LOTS OF URINE OUTPUT BEFORE DISCHARGE. THIS NURSE ASSISTED PATIENT IN GETTING IN THE WHEELCHAIR AND ANJ TRANSPORTED.
[2020-12-13 11:32] VITALS: PULSE 91
--- NOTE | 2020-12-14 19:47 | PM.DCS ---
Discharge Providers Date of Admission: 12/07/20 18:07 Date of Discharge: December 13, 2020 Attending Provider at Admission: Woody Boykin Attending Provider at Discharge: Valencia Quintana MD Primary Care Provider: Pascual Kay MD Diagnoses at Discharge Discharge Diagnosis (1) Chest pain: Status: Acute Qualifiers: Chest pain type: unspecified Qualified Code(s): R07.9 - Chest pain, unspecified (2) Congestive heart failure: Status: Acute Qualifiers: Heart failure type: unspecified (3) Atrial fibrillation with RVR: Status: Acute (4) CKD (chronic kidney disease): Status: Acute Reason for Visit Reason for Visit: CP Hospital Course Hospital Course Carole Lee is a 75 year old female who carries history of established coronary disease, recent stent placement in LAD, chronic kidney disease stage IV, atrial fibrillation, chronic anticoagulation with Eliquis, morbid obesity, presented on 12/07 with worsening shortness of breath and palpitations. Hospital course as below: # NSTEMI type II: Likely secondary to decompensated heart failure with reduced ejection fraction 2/2 Fluid overloaded with underlying end-stage renal disease as well secondary to A. fib with RVR. Troponin trend without significant delta. 2D echo: Done on 12/10: no significant interval change, moderately reduced with EF of 35- 40%.moderate global hypokinesis. Mild mitral regurgitation. Trace pulmonic regurgitation. Telemetry: Continues to be in A. fib with rate control on Eliquis 2.5mg po BID # H/O Coronary artery disease status post stent: Recent history of coronary artery disease s/p stent to LAD. Plavix 75 mg p.o. daily Metoprolol succinate 25 mg p.o. daily Atorvastatin 80 mg p.o. daily. # A. fib: With RVR Metoprolol succinate 25 mg p.o. daily Eliquis 2.5 mg every 12 hourly Digoxin resumed after serial level checks # Decompensated heart failure; with underlying end-stage renal disease Diuresing well on oral BUMEX no further HD noted # Loose stool Patient is stating that her stools are loose since her previous hospitalization, she received multiple antibiotics in last 1 month, shiga toxins were detected, she is afebrile no leukocytosis, mild abdominal tenderness in hypogastric region on deep palpation. negative enteric bacterial panel, parasitic panel, C. difficile negative # Type 2 diabetes: MDSSI # Hypothyroidism: Levothyroxine 225 MCG p.o. daily Discharged today to SNF in chronically ill but stable condition. To follow up with outpatient associate of science in nursing regarding removal of HD catheter as currently not requiring dialysis. Physical Exam Narrative: EXAM NARRATIVE: GEN: Awake, alert and oriented, no acute distress CVS: S1S2 N RS: CTA B/L anteriorly Abd: Soft, nt/nd , bs+ CAMPGROUND CARETAKER: no focal neuro deficits Discharge Data Data Completed and Pending: Completed Studies During Hospitalization Category Date Time Status XR chest 1V cole ble [id number] Stat Exams 12/07/20 16:37 Completed CV echo complete* [id number] Routine Ultrasound 12/10/20 20:59 Completed Pending at discharge Category Date Time Status Vitamin D 1,25 Di hydroxy Routine Lab 12/10/20 07:40 Received Vitals: Last Vital Signs Temp 97.8 F 12/13/20 08:06 Pulse 91 12/13/20 11:32 Resp 18 12/13/20 08:06 BP 138/78 12/13/20 08:06 Pulse Ox 91 12/13/20 08:06 Discharge Plan Discharge Patient Disposition: Xfer [facility] Condition: Stable Prescriptions: New bumetanide 1 mg Tablet 2 mg PO BID 30 Days Qty: 120 RF: 0 metoprolol succinate 25 mg Tablet Extended Release 24 Hr 25 mg PO DAILY 30 Days Qty: 30 RF: 0 Nystop 100,000 unit/gram Powder 1 applic topical BID 30 Days Qty: 100 RF: 0 calcitriol 0.25 mcg Capsule 0.25 mcg PO DAILY 30 Days Qty: 30 RF: 0 Continued digoxin 125 mcg (0.125 mg) tablet 125 mcg PO DAILY RF: 0 gabapentin 100 mg capsule 200 mg PO BEDTIME RF: 0 levothyroxine 25 mcg tablet 25 mcg PO DAILY@0500 RF: 0 pantoprazole 40 mg tablet,delayed release (DR/EC) 40 mg PO DAILY@0500 RF: 0 levothyroxine 200 mcg tablet 200 mcg PO DAILY@0500 RF: 0 polyethylene glycol 3350 17 gram Powder In Packet 17 g PO DAILY PRN (Reason: Constipation) Qty: 30 RF: 0 acetaminophen [Tylenol] 325 mg Tablet 650 mg PO Q6H PRN (Reason: PAIN/FEVER) RF: 0 clopidogrel 75 mg tablet 75 mg PO DAILY RF: 0 atorvastatin 80 mg Tablet 80 mg PO BEDTIME@20 RF: 0 phenytoin sodium extended 200 mg Capsule 200 mg PO BID RF: 0 Novolog U-100 Insulin aspart 100 unit/mL Solution See Rx Instructions .ROUTE .COMPLEX RF: 0 Eliquis 2.5 mg Tablet 2.5 mg PO BID RF: 0 Discontinued cephalexin 500 mg Capsule 500 mg PO BID RF: 0 nitroglycerin [Nitrostat] 0.4 mg Tablet, Sublingual 0.4 mg SUBLINGUAL Q5M PRN (Reason: Chest Pain) RF: 0 Renal Caps 1 mg Capsule 1 cap PO QPM RF: 0 metoprolol tartrate 50 mg tablet 50 mg PO BID@0900,2100 RF: 0 cholecalciferol (vitamin D3) [Vitamin D3] 25 mcg (1,000 unit) Capsule 25 mcg PO DAILY RF: 0 bisacodyl 10 mg suppository 10 mg LA DAILY PRN (Reason: Constipation) RF: 0 Discharge Orders: Discharge Order (Routine); Ordered 12/13/20 Ordered By: Valencia Quintana Referrals: associate of science in nursing,Remy [Other] - 1 week [facility] [Outside] Pascual Kay MD [Primary Care Provider] - 12/22/20 1:30 pm Discharge Diet: Usual diet Discharge Activity: Resume usual activity Patient Instructions: Metoprolol (By mouth), Bumetanide (By mouth), Nystatin (On the skin), Opioid Safety Discharge Attestations Time Spent in Discharge Care*: greater than 30 min Quality Metrics Clinical Quality Measures During this hospital stay, did patient experience: None Coding Level of Care Code Acute g [facility] note Diagnoses Chest pain R07.9 Chest pain type: unspecified Congestive heart failure I50.9 Heart failure type: unspecified Atrial fibrillation with RVR I48.91 CKD (chronic kidney disease) N18.9
[2020-12-18 22:42] LABS: Vit D 1,25 (Oh)2, Total 8 pg/mL (18-72); Vit D2 1,25 (Oh)2 <8 pg/mL; Vit D3 1,25 (Oh)2 8 pg/mL
== END 2020-12-13 11:32 | disposition skilled nursing facility (03) | DRG 280 ==
LOC: ER 17:04 → CSU 18:21 → MEDSURG 12-12 22:16
PROVIDERS: Internal Medicine; Internal Medicine Nephrology; Admitting Provider Internal Medicine; Emergency Provider Emergency Medicine; PCP Family Medicine; Visit Provider Student in an Organized Health Care Education/Training Program
DX: I50.23 Acute on chronic systolic (congestive) heart failure (principal); I21.A1 Myocardial infarction type 2; N18.6 End stage renal disease; I13.2 Hypertensive heart and chronic kidney disease with heart failure and with stage 5 chronic kidney disease, or end stage renal disease; Z68.43 Body mass index [BMI] 50.0-59.9, adult; N17.9 Acute kidney failure, unspecified; I25.10 Atherosclerotic heart disease of native coronary artery without angina pectoris; E11.22 Type 2 diabetes mellitus with diabetic chronic kidney disease; D63.1 Anemia in chronic kidney disease; E11.51 Type 2 diabetes mellitus with diabetic peripheral angiopathy without gangrene; I48.91 Unspecified atrial fibrillation; E78.5 Hyperlipidemia, unspecified; E66.01 Morbid (severe) obesity due to excess calories; R19.7 Diarrhea, unspecified; G47.33 Obstructive sleep apnea (adult) (pediatric); E03.9 Hypothyroidism, unspecified; N25.0 Renal osteodystrophy; E87.79 Other fluid overload; Z79.01 Long term (current) use of anticoagulants; Z79.4 Long term (current) use of insulin; Z95.5 Presence of coronary angioplasty implant and graft; Z99.2 Dependence on renal dialysis
CPT/HCPCS: 36415; 36416; 71045; 80053; 80162; 80185; 82306; 82310; 82652; 82728; 82962; 83540; 83550; 83605; 83630; 83735; 83880; 83970; 84100; 84443; 84484; 85025; 85049; 85610; 85730; 86706; 86803; 87040; 87340; 87493; 87506; 93005; 93306; 94660; 96372; 96374; 99285; J1644; J1815; J1940; J3490; Q3014; Q4081

== ENCOUNTER 2021-01-06 21:59 | Observation (INO) | payer MEDICARE, MEDICAID, SELFPAY ==
[2021-01-06 22:06] VITALS: BP 151/92; PULSE 106; RESP 18; TEMP 36.6; O2SAT 98; BMI 53.1
--- NOTE | 2021-01-06 22:28 | XRR_ITS ---
PROCEDURE INFORMATION: Exam: XR Chest Exam date and time: 01/06/2021 10:28 PM Age: 75 years old Clinical indication: Other: Edema TECHNIQUE: Imaging protocol: XR of the chest. Views: 1 view. COMPARISON: CR (CHEST, ) 12/07/2020 4:37 PM FINDINGS: Lungs: Unremarkable. No consolidation. Pleural spaces: Unremarkable. No pleural effusion. No pneumothorax. Heart/Mediastinum: Cardiomegaly. Vasculature: There is calcified plaque in the aortic arch. Bones/joints: Unremarkable. XR/XR chest 1V portable [id number] IMPRESSION: Cardiomegaly.
[2021-01-06 23:18] VITALS: BP 123/52; PULSE 98; RESP 14; O2SAT 93
[2021-01-06 23:37] LABS: Basophils # 0.1 10^3/uL (0.0-0.1); Eosinophils # 0.6 10^3/uL (0.0-0.8); Eosinophils % 10.4 %; Hematocrit 35.9 % (37.0-47.0); Hemoglobin 11.1 g/dL (11.5-15.3); Lymphocytes # 1.6 10^3/uL (0.8-4.8); Lymphocytes % 27.9 %; Mean Corpuscular HGB Conc 30.9 g/dL (30.0-36.0); Mean Corpuscular Hemoglobin 32.2 pg (28.0-34.0); Mean Corpuscular Volume 104.1 fL (81-99); Mean Platelet Volume 11.7 fL (7.4-10.4); Monocytes # 0.6 10^3/uL (0.2-0.9); Monocytes % 10.9 %; Neutrophils # 2.89 10^3/uL (1.8-7.7); Neutrophils % 49.3 %; Nucleated Red Blood Cells % 0 %; Platelet Count 233 10^3/cmm (130-400); Red Blood Count 3.45 10^6/uL (4.1-5.3); Red Cell Distribution Width 14.4 % (12.1-15.1); White Blood Count 5.9 10^3/uL (4.0-10.0)
[2021-01-06 23:58] LABS: Alanine Aminotransferase 12 U/L (0-33); Albumin Level 3.2 g/dL (3.5-5.2); Alkaline Phosphatase 146 IU/L (35-105); Aspartate Amino Transferase 29 U/L (0-32); Blood Urea Nitrogen 40 mg/dL (8-23); C Reactive Protein 40.8 mg/L (0.0-4.9); Calcium 6.6 mg/dL (8.5-10.5); Carbon Dioxide 28 mmol/L (22-29); Chloride 95 mmol/L (98-107); Globulin 3.6 g/dL (1.3-4.6); Glucose 217 mg/dL (65-115); NT Pro B Type Natriuretic Pept 5756 pg/mL (0-450); Osmolality Calculated 294 mOsm/kg (285-295); Sodium 134 mmol/L (136-145); Total Bilirubin 0.3 mg/dL (0.15-1.2); Total Protein 6.8 g/dL (6.6-8.7)
[2021-01-07] VITALS (12 sets, daily range): BP systolic 113–139; BP diastolic 53–75; PULSE 67–110; RESP 15–20; TEMP 36.4–36.9; O2SAT 92–98
[2021-01-07] MEDS: FUROsemide 10 mg/mL SDV 10mL 80 MG IVP (02:51)
[2021-01-07 03:02] LABS: Add Urine Microscopic? YES; Bilirubin Urine 1+ (Negative); Blood Urine Neg (Negative); Glucose Urine UA Norm (Normal); Ketones Urine Negative (Negative); Leukocyte Esterase Urine 1+ (Negative); Nitrate Urine Negative (Negative); Protein Urine Neg (Negative); Specific Gravity, Urine 1.015 (1.005-1.030); Urine Appearance SL Hazy (CLEAR); Urine Color Yellow (Yellow); Urobilinogen Urine Norm (Negative); pH Urine 5 (5-7)
[2021-01-07 03:05] LABS: Add Urine Culture? No; Bacteria Urine 2+ /hpf; Other Sediment, Urine BUD YEAST W/HYPHAE; RBC Urine 0-4 /hpf (0-2); Squamous Epithelial Cell Urine 15-25 /hpf (0-5); WBC Urine >100 /hpf (0-5)
[2021-01-07] MEDS: cefTRIAXone 1,000 MG in sodium chloride 0.9% (plus) 50 ML 100 MG IV (03:42)
--- NOTE | 2021-01-07 04:13 | PM.HP ---
Providers/Chief Complaint Primary Care Provider: Pascual Kay MD Chief Complaint: UNABLE TO URINATE History of Present Illness Carole Lee is a 75 year old female with established history of coronary disease stent placement in LAD, chronic anticoagulation for defibrillation with Eliquis, required temporary dialysis because of worsening kidney function, status post dialysis cath removal 12/25 presented today with chief complaint of decreased urine output. Patient is stating that she has been taking Bumex 2 mg twice a day but her urine output has decreased in last 48 hours, her p.o. intake has been adequate but she has been noticing only dribbling of urine which made her very concerned regarding worsening of kidney function that is why she decided to come to the hospital. She is endorsing orthopnea, PND shortness of breath. No fever, chest pain abdominal pain diarrhea or dysuria. Of note, she recently got discharged from the [facility]. Since then she has been noticing decreased urine output. Diagnostics in the ER revealed acute on chronic kidney disease, normal CBC abnormal UA however patient does not endorse any symptoms of UTI, she was given ceftriaxone in the ER, chest x-ray shows cardiomegaly with mild pulmonary vascular congestion, BNP 5700 Review of Systems Const: Reports: body aches, change in weight and fatigue; Denies: fever(s) Eyes: Denies: change in vision ENMT: Denies: throat pain Card: Reports: irregular heart rhythm, edema, swelling of feet/ankles, dyspnea on exertion and orthopnea; Denies: chest pain Resp: Reports: dyspnea GI: Denies: abdominal pain : Reports: oliguria; Denies: flank pain Musc: Denies: neck pain Skin/Breast: Reports: lesions; Denies: rash Neuro: Denies: headache(s) Psych: Denies: anxiety Endo: Denies: polyuria Jewel/Lymph: Denies: easy bruising All/Imm: Denies: urticaria Medications/Allergies Home Medications Medication Instructions Recorded Confirmed Last Taken Type levothyroxine 25 mcg PO DAILY@0500 09/08/19 12/25/20 12/07/20 History levothyroxine 200 mcg PO DAILY@0500 09/08/19 12/25/20 12/07/20 History pantoprazole 40 mg PO DAILY@0500 09/08/19 12/25/20 12/07/20 History clopidogrel 75 mg PO DAILY 11/29/20 12/25/20 12/07/20 07:01 History gabapentin 100 mg capsule 200 mg PO BEDTIME cap 12/05/20 12/25/20 12/06/20 History Eliquis 2.5 mg PO BID 12/07/20 12/25/20 12/07/20 07:00 History Novolog U-100 Insulin aspart See Rx Instructions .ROUTE .COMPLEX 12/07/20 12/25/20 12/07/20 12:00 History 7 UNITS atorvastatin 80 mg PO BEDTIME@20 12/07/20 12/25/20 12/06/20 History phenytoin sodium extended 200 mg PO BID 12/07/20 12/25/20 12/07/20 07:01 History bumetanide 2 mg PO BID 30 Days #120 tab 12/13/20 12/25/20 Unknown Rx calcitriol 0.25 mcg PO DAILY 30 Days #30 cap 12/13/20 12/25/20 Unknown Rx metoprolol succinate 25 mg PO DAILY 30 Days #30 tab 12/13/20 12/25/20 Unknown Rx Levemir Flexpen 10 units SUBCUT BEDTIME 01/07/21 01/07/21 01/05/21 21:00 History Plavix 75 mg PO BID 01/07/21 01/07/21 01/06/21 08:00 History Allergies Allergy/AdvReac Type Severity Reaction Status Date / Time gentamicin Allergy Unknown Verified 12/25/20 11:48 hydromorphone [From Dilaudid] Allergy Unknown Verified 12/25/20 11:48 PFSH Acute PFSH: Medical History Acute non-ST elevation myocardial infarction (NSTEMI) Afib Anemia Atherosclerotic heart disease of [place] coronary artery with unstable angina pectoris Atrial fibrillation with rapid ventricular response CAD (coronary artery disease) Diabetes Dyslipidemia HTN (hypertension) Morbid obesity PVD (peripheral vascular disease) 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 Status post insertion of drug-eluting stent into left anterior descending (LAD) artery Venous stasis Surgical History History of ankle surgery History of cataract surgery History of cholecystectomy History of heart artery stent S/P hemodialysis catheter insertion (11/22/20) Right internal jugular vein d/c 12/25/20 Social History Smoking and tobacco status: never smoked Marital status: / Vitals/I&O/Wt Last Vital Signs Temp 97.8 F 01/06/21 22:06 Pulse 69 01/07/21 03:00 Resp 16 01/07/21 03:00 BP 127/68 01/07/21 03:00 Pulse Ox 92 01/07/21 03:00 01/06/21 01/06/21 01/07/21 14:59 22:59 06:59 Intake Total 50 / 50 Balance 50 / 50 Weight last 48 hrs Weight 153.768 kg Physical Exam Narrative: EXAM NARRATIVE: elderly female who was sitting comfortably when I entered the room Generalized anasarca appearance Clinical signs of fluid overload Lower extremity edema positive Dry extremities skin Variable S1-S2 with signs of heart failure Distended abdomen with obesity nontender Bibasilar crackles with diminished airflow however no acute respite distress Saturating well on room air EOMI, PERRLA No neurological deficit Awake alert oriented x3 GCS 15 Urinary Catheter Management^: Acevedo: Cath Placed During This Visit: yes Urinary Catheter Date of Insertion: 01/07/21 Urinary Catheter Time of Insertion: 02:44 Data : 01/06/21 23:20 01/06/21 23:20 A&P Assessment and plan (1) Acute worsening of stage 4 chronic kidney disease: Status: Acute (2) Oliguria: Status: Acute Additional A&P Information Oliguria with worsening chronic kidney disease stage IV Patient is endorsing oliguria for last 48 hours, she is only dosing dribbling of urine, no fever, dysuria, flank pain, nausea, vomiting recent diarrhea I would monitor her urine output on IV Bumex for now, her temporary dialysis catheter was recently removed, closely monitor her urine output and correlate with her creatinine there is a risk of progression of chronic kidney disease stage IV to stage V Patient is not endorsing any active UTI signs she received ceftriaxone in the ER abnormal UA noted, I would not resume antibiotics at this point, no signs of sepsis Hyperglycemia with type 2 diabetes: Consistent carb diet continue long-acting insulin Moderate sliding scale Established coronary artery disease with stent placement in LAD, no active chest pain continue Eliquis atorvastatin along Eliquis A. fib without RVR Full code Consistent carb diet DVT prophylaxis not indicated Attestations Medical Necessity Statement*: Patient needs monitoring for urine output, anticipating discharge within 48 hours her clinical course is dependent on her progress on daily basis Time Spent in Patient Care: 30 minutes Coding Level of Care Code Acute Psychological Operations Officer for Katerineg Fwd Diagnoses Acute worsening of stage 4 chronic kidney disease N18.4 Oliguria R34
--- NOTE | 2021-01-07 05:38 | ED_ITS ---
HPI - Female Genitourinary General: Chief complaint: Urogenital-Female Stated complaint: UNABLE TO URINATE Time Seen by Provider: 01/06/21 22:06 History of Present Illness: HPI Narrative: 75-year-old female with a history significant for coronary artery disease, atrial fibrillation, CHF, and renal failure. She was on dialysis for 2 weeks last month, and had been recovering. She reports a decrease in her urine output over the past 24 to 36 hours has been significant. She is worried that she may be in renal failure again. She is short of breath as well. She has gained water weight the last 24 hours, with significant edema to her lower extremities. MD elicited complaint: difficulty urinating Pertinent past history: other Onset (ago): hour(s) Location of symptoms: other Severity: moderate Consistency: constant Urinary symptoms: Difficulty Urinating Exacerbating factors: none Relieving factors: none Associated symptoms: Deny abdominal pain, short of breath, fevers/chills, headache(s), nausea, rash or vaginal bleeding Treatment prior to arrival: none Sexual activity: No Patient : No Possible : other Review of Systems Const: Denies: fever(s) Eyes: Denies: change in vision ENMT: Denies: odynophagia, bleeding gums or sinus pain Card: Reports: edema, swelling of feet/ankles, dyspnea on exertion and orthopnea; Denies: chest pain Resp: Reports: dyspnea; Denies: productive cough or non-productive cough GI: Denies: abdominal pain or nausea Musc: Denies: neck pain or joint warmth Skin/Breast: Denies: rash or erythema Neuro: Denies: headache(s), dizziness or vertigo Psych: Denies: anxiety PFSH ED PFSH: Medical History Acute non-ST elevation myocardial infarction (NSTEMI) Afib Anemia Atherosclerotic heart disease of [place] coronary artery with unstable angina pectoris Atrial fibrillation with rapid ventricular response CAD (coronary artery disease) Diabetes Dyslipidemia HTN (hypertension) Morbid obesity PVD (peripheral vascular disease) 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 Status post insertion of drug-eluting stent into left anterior descending (LAD) artery Venous stasis Surgical History History of ankle surgery History of cataract surgery History of cholecystectomy History of heart artery stent S/P hemodialysis catheter insertion (11/22/20) Right internal jugular vein d/c 12/25/20 Social History Smoking and tobacco status: never smoked Marital status: / Physical Exam Const: GENERAL APPEARANCE: frail appearing NUTRITIONAL APPEARANCE: obese ORIENTATION/CONSCIOUSNESS: Yes oriented to person, Yes oriented to place and Yes oriented to time HENMT: COMMON NORMALS: normocephalic and Normal external nose present HEAD & SCALP: normocephalic FACE & SINUS: normal facial exam NOSE: Normal external nose present and No nasal discharge present Eye: COMMON NORMALS: Equal, round and reactive pupils present, EOMs intact bilaterally and conjunctivae normal EYELID: eyelids normal CONJUNCTIVA: Yes conjunctivae normal PUPIL: Yes Equal, round and reactive pupils present Neck/C-Spine: GENERAL: No tracheal deviation Chest: COMMONS NORMALS: normal inspection of the chest CHEST: No tenderness Resp: COMMON NORMALS: clear to auscultation bilaterally EFFORT & INSPECTION: Yes tachypneic, No respiratory distress, No retractions, Yes uses accessory muscles and No tracheal deviation AUSCULTATION: clear to auscultation bilaterally, no rhonchi, no wheezes and diminished lung sounds Cardio: COMMON NORMALS: regular rhythm RATE: tachycardic RHYTHM: regular rhythm HEART SOUNDS: no murmurs PERIPHERAL PULSES: radial pulses present GI: INSPECTION: No abdominal distension AUSCULTATION: No Hyperactive bowel sounds present and No Hypoactive bowel sounds present PALPATION: No Guarding due to palpation present (GI) and No Rigid due to palpation PERCUSSION: no dullness to percussion and no tympanic to percussion : SPECULUM EXAM - VAGINA: No vaginal bleeding OB/EXTERNAL & SPECULUM: No vaginal bleeding Extremity: GENERAL: Yes edema (3+ bilaterally) Neuro: SENSORIUM/ORIENTATION: Yes oriented to person, Yes oriented to place and Yes oriented to time Psych: COMMON NORMALS: mental status grossly normal Skin: COMMON NORMALS: no rashes or lesions noted GENERAL SKIN EXAM: no rashes or lesions noted Course Consultations: Consultation #1: kaiden Vital Signs: Vital signs: Vital Signs Temperature 97.9 F 01/07/21 05:14 Pulse Rate 86 01/07/21 05:14 Respiratory Rate 18 01/07/21 05:14 Blood Pressure 113/73 01/07/21 05:14 Pulse Oximetry 96 01/07/21 05:14 MDM - Female MDM Narrative: Medical decision making narrative: 75-year-old female with a history of renal failure. She has experienced decrease in urine output despite using Bumex. Her creatinine is back up to 2.4 with a BUN of 40. Acevedo was placed, she was given 80 of Lasix, and has 600 mL out. I am concerned about her renal function worsening. She was on dialysis last month for 2 weeks. She has a urinary tract infection as well which could be contributing. She has been treated with Rocephin for this. She will be observed. Lab Data: Labs: Lab Results 01/06/21 01/06/21 01/07/21 Range/Units 23:20 23:20 02:36 WBC 5.9 (4.0-10.0) 10^3/ uL RBC 3.45 L (4.1-5.3) 10^6/u L Hgb 11.1 L (11.5-15.3) g/dL Hct 35.9 L (37.0-47.0) % MCV 104.1 H (81-99) fL MCH 32.2 (28.0-34.0) pg MCHC 30.9 (30.0-36.0) g/dL RDW 14.4 (12.1-15.1) % Plt Count 233 (130-400) 10^3/c mm MPV 11.7 H (7.4-10.4) fL Neut % (Auto) 49.3 % Lymph % (Auto) 27.9 % [place] % (Auto) 10.9 % Eos % (Auto) 10.4 % Baso % (Auto) 1.0 % Neut # (Auto) 2.89 (1.8-7.7) 10^3/u L Lymph # (Auto) 1.6 (0.8-4.8) 10^3/u L [place] # (Auto) 0.6 (0.2-0.9) 10^3/u L Eos # (Auto) 0.6 (0.0-0.8) 10^3/u L Baso # (Auto) 0.1 (0.0-0.1) 10^3/u L Nucleated RBC % (a uto) 0 % Nucleated RBCs # 0.0 /100WBC Sodium 134 L (136-145) mmol/L Potassium 4.0 (3.5-5.1) mmol/L Chloride 95 L (98-107) mmol/L Carbon Dioxide 28 (22-29) mmol/L Anion Gap 15.0 (5-19) BUN 40 H (8-23) mg/dL Creatinine 2.4 H (0.5-0.9) mg/dL GFR Calculation Not Reportable Glucose 217 H (65-115) mg/dL Calculated Osmolal ity 294 (285-295) mOsm/k g Calcium 6.6 L (8.5-10.5) mg/dL Total Bilirubin 0.3 (0.15-1.2) mg/dL AST 29 (0-32) U/L ALT 12 (0-33) U/L Alkaline Phosphata se 146 H (35-105) IU/L C-Reactive Protein 40.8 H (0.0-4.9) mg/L NT-Pro-B Natriuret Pep 5756 H (0-450) pg/mL Total Protein 6.8 (6.6-8.7) g/dL Albumin 3.2 L (3.5-5.2) g/dL Globulin 3.6 (1.3-4.6) g/dL Urine Color Yellow (Yellow) Urine Appearance Sl hazy (CLEAR) Urine pH 5 (5-7) Ur Specific Gravit y 1.015 (1.005-1.030) Urine Protein Neg (Negative) Urine Glucose (UA) Norm (Normal) Urine Ketones Negative (Negative) Urine Blood Neg (Negative) Urine Nitrate Negative (Negative) Urine Bilirubin 1+ H (Negative) Urine Urobilinogen Norm (Negative) mg/dL Ur Leukocyte Priscilla ase 1+ H (Negative) Urine RBC 0-4 H (0-2) /hpf Urine WBC >100 H (0-5) /hpf Ur Squamous Epith Cells 15-25 H (0-5) /hpf Amorphous Sediment Not Reportable Urine Bacteria 2+ H (NONE) /hpf Urine Yeast 1+ H /hpf Discharge Plan Discharge Admit Provider: Ruddy Berkowitz Coding Level of Care Code ED Pattern Vault Clerk for g Fwd Exam Comprehensive
[2021-01-07 06:17] LABS: Glucose Point of Care 184 mg/dL (70-110)
[2021-01-07 06:53] LABS: Phenytoin Dilantin 15.4 ug/mL (10-20)
[2021-01-07] MEDS: metoprolol succinate ER (24 HR) 25 mg Tablet PO (08:17)
[2021-01-07] MEDS: calcitriol 0.25 mcg Capsule PO (08:17)
[2021-01-07] MEDS: bumetanide 0.25 mg/mL SDV 10 mL 2 MG IV (08:17)
[2021-01-07] MEDS: phenytoin ER 100 mg Capsule 200 MG PO ×2 (08:17→18:32)
[2021-01-07] MEDS: apixaban 5 mg Tablet 2.5 MG PO ×2 (08:17→18:32)
[2021-01-07] MEDS: clopidogrel 75 mg Tablet PO (08:17)
[2021-01-07 11:08] LABS: Glucose Point of Care 105 mg/dL (70-110)
[2021-01-07 12:49] LABS: Blood Urea Nitrogen 40 mg/dL (8-23); Calcium 6.6 mg/dL (8.5-10.5); Carbon Dioxide 26 mmol/L (22-29); Chloride 101 mmol/L (98-107); Glucose 99 mg/dL (65-115); Osmolality Calculated 298 mOsm/kg (285-295); Sodium 139 mmol/L (136-145)
[2021-01-07 12:54] LABS: Anion Gap 15.7 (5-19); Potassium 3.7 mmol/L (3.5-5.1)
--- NOTE | 2021-01-07 14:18 | PC.CHAP ---
Pastoral Care Encounter/Spiritual Assessment Type of Contact [] Declined cavalry officer visit [] Patient/Family/Request visit [] Outpatient visit [] Follow-up visit [] Physician referral [] Code/Alert [XX] Routine visit [] Staff referral [] Actively dying [XX] Patient sleeping [] Family support [] [] Out of room [] Palliative care [] [] Receiving care in room [] Pre-surgical visit [] Trauma [] Long length of stay [] ICU visit [] Other: Relational/Emotional Strength [] Patient feels connected with others/family/visitors/staff [] Distress [] Loneliness/isolation [] Abandonment Spirituality of Patient [] Person of Jennifer [] Attends Latter-Day of their Jennifer [] Believes in Prayer [] Reads Bible or Zoroastrianism materials [] There are Spiritual issues to be addressed Rayon Winder Interventions [] Prayer [] Active listening [] Non-anxious presence [] Spiritual/emotional support [] Crisis/trauma care [] Spiritual counseling [] Bereavement support [] Provided bereavement packet [] Provided Bible/devotional materials [] Provided toy/stuffed animal, coloring book to patient or family member [] Provided Communion [] Anointing/[place] [] Salvation [] Completed spiritual assessment [] Other: Impact on Illness or Injury [] Angry [] Fearful [] Anxious [] Often cries [] Exhaustion [] Unable to work [] Unable to attend confucianist [] Unable to walk/stand [] Unable to read [] Unable to drive [] Unable to eat/drink [] Unable to sleep [] Unable to be with family [] Patient intubated [] Other: Summary Time spent with patient
--- NOTE | 2021-01-07 15:09 | PM.DCS ---
Discharge Providers Date of Admission: 01/07/21 04:25 Date of Discharge: January 07, 2021 Attending Provider at Admission: Ruddy Berkowitz MD Attending Provider at Discharge: Woody Boykin Primary Care Provider: Pascual Kay MD Diagnoses at Discharge Discharge Diagnosis (1) Acute worsening of stage 4 chronic kidney disease: Status: Acute (2) Oliguria: Status: Acute Reason for Visit Reason for Visit: UNABLE TO URINATE Hospital Course Hospital Course Very pleasant 75-year-old lady with history of systolic CHF, EF 35-40% on TTE 12/10/20, chronic kidney disease, transiently on hemodialysis but this was able to be discontinued, a number of other comorbidities as per HPI, with recurrent fluid overload, on diuretic therapy with Bumex 2 mg twice daily, but recently noted increasing edema and no improved urine output despite taking the prescribed Bumex doses. She was hospitalized for observation due to these concerns. Creatinine noted 2.4-2.2 during hospitalization. She received 2 mg IV Bumex. She produced 1200 mL urine in the [facility]. She is feeling well, and denies having any shortness of breath. Cardiomegaly noted on chest x-ray. She has not been hypoxic. Home O2 evaluation is requested prior to discharge. Due to lower extremity edema Bumex dose is increased to 3 mg twice daily. She is also provided with prescription for metolazone 2.5 mg but only as needed, and given instructions to take 30 minutes before loop diuretic in case of worsening edema and still inadequate response to the increased dose Bumex. On discussion with her she also reports eating 3-4 8 ounce cups of ice daily in addition to having some tea and other intake. Recommend that she maintain fluid restriction 1000 mL per 24 hours. Reduce ice intake. Pica considered, although does not appear to have iron deficiency as per recent studies 12/08/2020. UA provided on admission was a contaminated sample, with more than 100 WBC, however, 15-25 squamous epithelial cells. Repeat UA is requested prior to discharge. She received 1 dose of ceftriaxone on presentation, although antibiotics were not continued as UTI was not suspected. However, please follow-up repeat study. Physical Exam Const: COMMON NORMALS: no acute distress and patient oriented x3 GENERAL APPEARANCE: cooperative and comfortable NUTRITIONAL APPEARANCE: obese ORIENTATION/CONSCIOUSNESS: Yes awake HENMT: COMMON NORMALS: oropharynx normal Neck/C-Spine: COMMON NORMALS: no JVD Resp: COMMON NORMALS: normal respiratory effort and clear to auscultation bilaterally AUSCULTATION: clear to auscultation bilaterally Cardio: COMMON NORMALS: no JVD, regular rhythm, S1 normal heart sound present, S2 normal heart sound present and No murmurs present (Cardio) RHYTHM: regular rhythm HEART SOUNDS: S1 normal heart sound present and S2 normal heart sound present GI: COMMON NORMALS: Normal to inspection, nondistended, normoactive bowel sounds present, Soft to palpation and non-tender PALPATION: Yes Soft to palpation Extremity: COMMON NORMALS: no joint enlargement GENERAL: Yes edema (Chronic nonpitting edema as well as 1+ pitting edema BL LE above ankles) Neuro: COMMON NORMALS: patient oriented x3 and moves all extremities Skin: OTHER: Chronic stasis dermatitis Urinary Catheter Management^: [facility]: Cath Placed During This Visit: yes Urinary Catheter Date of Insertion: 01/07/21 Urinary Catheter Time of Insertion: 02:44 Discharge Data Data Completed and Pending: Completed Studies During Hospitalization Category Date Time Status XR chest 1V cole ble [id number] Urgent Exams 01/06/21 22:28 Completed Pending at discharge Category Date Time Status Basic Metabolic P lillian AM LABS Lab 01/08/21 04:00 Ordered UA w/Reflex to Mi croscope [Urinalys is] Routine Lab 01/07/21 14:53 Uncollected Labs from last 24 hours 01/07/21 01/07/21 01/07/21 12:12 10:54 06:14 WBC RBC Hgb Hct MCV MCH MCHC RDW Plt Count MPV Neut % (Auto) Lymph % (Auto) Bath % (Auto) Eos % (Auto) Baso % (Auto) Neut # (Auto) Lymph # (Auto) Bath # (Auto) Eos # (Auto) Baso # (Auto) Nucleated RBC % (a uto) Nucleated RBCs # Sodium 139 Potassium 3.7 Chloride 101 Carbon Dioxide 26 Anion Gap 15.7 BUN 40 H Creatinine 2.2 H GFR Calculation Not Reportable Glucose 99 POC Glucose 105 184 H Calculated Osmolal ity 298 H Calcium 6.6 L Total Bilirubin AST ALT Alkaline Phosphata se C-Reactive Protein NT-Pro-B Natriuret Pep Total Protein Albumin Globulin Urine Color Urine Appearance Urine pH Ur Specific Gravit y Urine Protein Urine Glucose (UA) Urine Ketones Urine Blood Urine Nitrate Urine Bilirubin Urine Urobilinogen Ur Leukocyte Priscilla ase Urine RBC Urine WBC Ur Squamous Epith Cells Amorphous Sediment Urine Bacteria Urine Yeast Phenytoin 01/07/21 01/06/21 01/06/21 02:36 23:20 23:20 WBC RBC Hgb Hct MCV MCH MCHC RDW Plt Count MPV Neut % (Auto) Lymph % (Auto) Bath % (Auto) Eos % (Auto) Baso % (Auto) Neut # (Auto) Lymph # (Auto) Bath # (Auto) Eos # (Auto) Baso # (Auto) Nucleated RBC % (a uto) Nucleated RBCs # Sodium 134 L Potassium 4.0 Chloride 95 L Carbon Dioxide 28 Anion Gap 15.0 BUN 40 H Creatinine 2.4 H GFR Calculation Not Reportable Glucose 217 H POC Glucose Calculated Osmolal ity 294 Calcium 6.6 L Total Bilirubin 0.3 AST 29 ALT 12 Alkaline Phosphata se 146 H C-Reactive Protein 40.8 H NT-Pro-B Natriuret Pep 5756 H Total Protein 6.8 Albumin 3.2 L Globulin 3.6 Urine Color Yellow Urine Appearance Sl hazy Urine pH 5 Ur Specific Gravit y 1.015 Urine Protein Neg Urine Glucose (UA) Norm Urine Ketones Negative Urine Blood Neg Urine Nitrate Negative Urine Bilirubin 1+ H Urine Urobilinogen Norm Ur Leukocyte Priscilla ase 1+ H Urine RBC 0-4 H Urine WBC >100 H Ur Squamous Epith Cells 15-25 H Amorphous Sediment Not Reportable Urine Bacteria 2+ H Urine Yeast 1+ H Phenytoin 15.4 01/06/21 23:20 WBC 5.9 RBC 3.45 L Hgb 11.1 L Hct 35.9 L MCV 104.1 H MCH 32.2 MCHC 30.9 RDW 14.4 Plt Count 233 MPV 11.7 H Neut % (Auto) 49.3 Lymph % (Auto) 27.9 Bath % (Auto) 10.9 Eos % (Auto) 10.4 Baso % (Auto) 1.0 Neut # (Auto) 2.89 Lymph # (Auto) 1.6 Bath # (Auto) 0.6 Eos # (Auto) 0.6 Baso # (Auto) 0.1 Nucleated RBC % (a uto) 0 Nucleated RBCs # 0.0 Sodium Potassium Chloride Carbon Dioxide Anion Gap BUN Creatinine GFR Calculation Glucose POC Glucose Calculated Osmolal ity Calcium Total Bilirubin AST ALT Alkaline Phosphata se C-Reactive Protein NT-Pro-B Natriuret Pep Total Protein Albumin Globulin Urine Color Urine Appearance Urine pH Ur Specific Gravit y Urine Protein Urine Glucose (UA) Urine Ketones Urine Blood Urine Nitrate Urine Bilirubin Urine Urobilinogen Ur Leukocyte Priscilla ase Urine RBC Urine WBC Ur Squamous Epith Cells Amorphous Sediment Urine Bacteria Urine Yeast Phenytoin Vitals: Last Vital Signs Temp 98.5 F 01/07/21 12:00 Pulse 84 01/07/21 12:00 Resp 18 01/07/21 12:00 BP 128/73 01/07/21 12:00 Pulse Ox 94 01/07/21 12:00 Discharge Plan Discharge Patient Disposition: Home Condition: Stable Prescriptions: New metolazone 2.5 mg tablet 2.5 mg PO DAILY PRN (Reason: edema) Qty: 30 RF: 0 Continued gabapentin 100 mg capsule 200 mg PO BID RF: 0 levothyroxine 25 mcg tablet 25 mcg PO DAILY@0500 RF: 0 pantoprazole 40 mg tablet,delayed release (DR/EC) 40 mg PO DAILY@0500 RF: 0 levothyroxine 200 mcg tablet 200 mcg PO DAILY@0500 RF: 0 clopidogrel 75 mg tablet 75 mg PO DAILY RF: 0 Levemir Flexpen 10 units SUBCUT BEDTIME RF: 0 Plavix 75 mg PO BID RF: 0 atorvastatin 80 mg Tablet 80 mg PO BEDTIME@20 RF: 0 phenytoin sodium extended 200 mg Capsule 200 mg PO BID RF: 0 insulin aspart U-100 [Novolog U-100 Insulin aspart] 100 unit/mL Solution See Rx Instructions .ROUTE .COMPLEX RF: 0 Eliquis 2.5 mg Tablet 2.5 mg PO BID RF: 0 metoprolol succinate 25 mg Tablet Extended Release 24 Hr 25 mg PO DAILY 30 Days Qty: 30 RF: 0 calcitriol 0.25 mcg Capsule 0.25 mcg PO DAILY 30 Days Qty: 30 RF: 0 Changed bumetanide 1 mg Tablet 3 mg PO BID 30 Days Qty: 90 RF: 0 Discharge Orders: Discharge Order (Routine); Ordered 01/07/21 Ordered By: Woody Boykin Referrals: Dedrick Hendricks MD [Referring] - 1 week (Please call Friday to schedule a follow up appointment.) Ruddy Sanches MD [Physician] - 2 weeks (Please call Friday to schedule a follow up appointment.) Pascual Kay MD [Primary Care Provider] - 4-7 days (Please call Friday to schedule a follow up appointment.) Laury Silver FNP [Nurse Practitioner] - 1 week (Please call Friday to schedule a follow up appointment. ) Discharge Diet: As Directed Discharge Activity: Increase activity as tolerated and Oxygen as instructed Patient Instructions: Metolazone (By mouth), Bumetanide (By mouth), Heart Failure (GEN), Chronic Kidney Disease (GEN), Opioid Safety Activity Restrictions/Additional Instructions: Please maintain fluid restriction 1000 mL at home (quart) a day. Please note that cups of ice count towards the total fluid amount as does any other liquid. Avoid fluid overload. Continue doing a good job as you have been excluding salt from your diet. Please increase bumetanide dose to 3 mg twice daily. Continue to watch for fluid overload. In case you notice again worsening swelling, inadequate urine output with increased dose of Bumex, on that day please take metolazone 30 minutes before the morning Bumex dose to aid in diuresis. You are prescribed metolazone on as needed basis in case of worsening edema with inadequate response to Bumex. Please follow-up with cardiology to follow-up regarding congestive heart failure and volume status/edema, and to further manage diuretics. Please follow-up with your nephrology Dr. To monitor kidney function with increased need for diuresis and poor response to diuretics. Please continue optimization of control of diabetes and other chronic conditions including coronary disease, atrial fibrillation as previously. Discharge Attestations Time Spent in Discharge Care*: greater than 30 min Quality Metrics Clinical Quality Measures During this hospital stay, did patient experience: None Coding Level of Care Code Acute Chg FW DC note Diagnoses Acute worsening of stage 4 chronic kidney disease N18.4 Oliguria R34
[2021-01-07 16:44] LABS: Urine Appearance Cloudy (CLEAR); Urine Color Yellow (Yellow)
[2021-01-07 16:45] LABS: Add Urine Microscopic? YES; Bilirubin Urine Neg (Negative); Blood Urine 2+ (Negative); Glucose Urine UA Norm (Normal); Ketones Urine Negative (Negative); Leukocyte Esterase Urine 2+ (Negative); Nitrate Urine Negative (Negative); Protein Urine Neg (Negative); Urobilinogen Urine Norm (Negative); pH Urine 5 (5-7)
[2021-01-07 16:47] LABS: WBC Urine >100 /hpf (0-5)
[2021-01-07 16:48] LABS: Bacteria Urine 2+ /hpf; Squamous Epithelial Cell Urine 0-4 /hpf (0-5)
[2021-01-07 16:49] LABS: Add Urine Culture? Yes
[2021-01-07 17:24] LABS: Glucose Point of Care 166 mg/dL (70-110)
[2021-01-07] MEDS: docusate sodium 100 mg Capsule 200 MG PO (18:32)
== END 2021-01-07 21:25 | disposition home or self-care (01) ==
LOC: ER 01-07 04:39 → MEDSURG 01-07 04:40
PROVIDERS: Admitting Provider Internal Medicine; Emergency Provider Emergency Medicine; PCP Family Medicine; Visit Provider Internal Medicine
DX: E11.22 Type 2 diabetes mellitus with diabetic chronic kidney disease (principal); I13.2 Hypertensive heart and chronic kidney disease with heart failure and with stage 5 chronic kidney disease, or end stage renal disease; I50.20 Unspecified systolic (congestive) heart failure; N18.6 End stage renal disease; Z99.2 Dependence on renal dialysis; R34 Anuria and oliguria; Z79.01 Long term (current) use of anticoagulants
CPT/HCPCS: 36416; 51702; 51798; 71045; 80048; 80053; 80185; 81001; 82962; 83880; 85025; 86140; 87086; 87106; 96361; 96365; 96372; 96375; 99285; G0378; J0696; J1815; J1940; J3490

== ENCOUNTER 2021-01-16 14:49 | Inpatient (IN) | payer MEDICARE, MEDICAID, SELFPAY ==
[2021-01-16] VITALS (8 sets, daily range): BP systolic 80–130; BP diastolic 42–94; PULSE 78–116; RESP 16–23; TEMP 36.8; O2SAT 92–100; BMI 51.2
--- NOTE | 2021-01-16 15:16 | XRR_ITS ---
PROCEDURE INFORMATION: Exam: XR Chest Exam date and time: 01/16/2021 3:16 PM Age: 75 years old Clinical indication: Cough TECHNIQUE: Imaging protocol: XR of the chest. Views: 1 view. COMPARISON: CR (CHEST, ) 01/06/2021 10:37 PM FINDINGS: Lungs: Low lung volumes seen.. No consolidation. Pleural spaces: Unremarkable. No pleural effusion. No pneumothorax. Heart/Mediastinum: Unremarkable. No cardiomegaly. Bones/joints: Unremarkable. XR/XR chest 1V portable [id number] IMPRESSION: No acute findings.
--- NOTE | 2021-01-16 15:16 | ECG_ITS ---
[facility] Test Date: 2021-01-16 Pat Name: Carole Lee Department: Room: Gender: Female [employer]: : 1945 Requested By: Hardeep Tilley Order Number: [id number] Danielle MD: ANGEL NGO Measurements Intervals [place] Rate: 102 P: IA: QRS: 52 QRSD: 125 T: 261 QT: 359 QTc: 468 Interpretive Statements ATRIAL FIBRILLATION WITH RAPID VENTRICULAR RESPONSE WITH ABERRANT CONDUCTION OR VENTRICULAR PREMATURE COMPLEXES SEPTAL MYOCARDIAL INFARCTION [40+ ms Q WAVE IN V1/V2], PROBABLY OLD MODERATE T-WAVE ABNORMALITY, CONSIDER LATERAL ISCHEMIA [-0.1+ mV T WAVE IN I/aVL/V5/V6] MODERATE T-WAVE ABNORMALITY, CONSIDER INFERIOR ISCHEMIA [-0.1+ mV T WAVE IN II/aVF] Compared to ECG 12/07/2020 23:20:37 Ventricular premature complex(es) now present Aberrant conduction of supraventricular beat(s) now present Myocardial infarct finding now present Intraventricular conduction delay no longer present T-wave abnormality still present Possible ischemia still present Electronically Signed On 01-16-2021 20:11:24 CDT by ANGEL NGO [email or web address]
--- NOTE | 2021-01-16 15:16 | CTR_ITS ---
PROCEDURE INFORMATION: Exam: CT Head Without Contrast Exam date and time: 01/16/2021 3:16 PM Age: 75 years old Clinical indication: Dizziness and other: AMBRIZ; Additional info: Headache TECHNIQUE: Imaging protocol: Computed tomography of the head without contrast. Radiation optimization: All CT scans at this facility use at least one of these dose optimization techniques: automated exposure control; mA and/or kV adjustment per patient size (includes targeted exams where dose is matched to clinical indication); or iterative reconstruction. COMPARISON: MR head wo con* [id number] 01/29/2020 7:50 PM RADIATION DOSE METRICS: Total DLP (mGy-cm): 1914.83 FINDINGS: Brain: Normal. No hemorrhage. Unremarkable white matter. No mass effect. Cerebral ventricles: No ventriculomegaly. Paranasal sinuses: Visualized sinuses are unremarkable. No fluid levels. Mastoid air cells: Visualized mastoid air cells are well aerated. Bones/joints: Unremarkable. No acute fracture. Soft tissues: Unremarkable. CT/CT head wo con* [id number] IMPRESSION: No acute intracranial abnormality. Radiation Dose CTDIVOL = (mGy): DLP = 1914.83 (mGy-cm)
--- NOTE | 2021-01-16 15:17 | ED_ITS ---
HPI - Fall General: Chief Complaint: Fall Stated Complaint: SYNCOPAL EPISODE Time Seen by Provider: 01/16/21 15:12 History of Present Illness: HPI Narrative: This patient is a 75-year-old female presents to the emergency department with a history of diabetes and seizure activity. Patient reportedly just got home from doctor's visit from routine doctor's visit. Patient is was found lying on the ramp to her apartment. Patient states she got a little fatigued and sat down and lay down. EMS tried to help her up and get her in the health and she was orthostatic. Patient is somnolent at this time. But easily arousable and answers questions appropriately. Patient states she just feels very tired. Patient denies chest pain. Nursing staff will check bedside glucose. Will do medical evaluation treat as needed Associated symptoms-after fall: Denies abdominal pain, chest pain, headache(s), lightheadedness or neck pain Review of Systems General: Reports: 10 or more systems reviewed and unremarkable except in HPI and below Const: Reports: fatigue and malaise; Denies: fever(s), chills or body aches Eyes: Denies: change in vision or blurry vision ENMT: Denies: throat pain, hoarseness or mouth pain Card: Denies: chest pain, palpitations, irregular heart rhythm, edema, swelling of feet/ankles or lightheadedness Resp: Denies: dyspnea, productive cough, non-productive cough, wheezing or pain on inspiration GI: Denies: abdominal pain, nausea or vomiting : Denies: flank pain, difficulty voiding, dysuria, urinary frequency, urinary urgency or urinary hesitancy Musc: Denies: neck pain, back pain, extremity pain, extremity swelling, joint pain, joint swelling, joint redness, joint warmth or limited range of motion Skin/Breast: Denies: rash, pruritus, erythema or skin tenderness Neuro: Denies: headache(s), numbness in extremities or weakness in extremities Psych: Denies: anxiety or depression [facility] ED PFSH: Medical History Acute non-ST elevation myocardial infarction (NSTEMI) Afib Anemia Atherosclerotic heart disease of [place] coronary artery with unstable angina pectoris Atrial fibrillation with rapid ventricular response CAD (coronary artery disease) Diabetes Dyslipidemia HTN (hypertension) Morbid obesity PVD (peripheral vascular disease) 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 Status post insertion of drug-eluting stent into left anterior descending (LAD) artery Venous stasis Surgical History History of ankle surgery History of cataract surgery History of cholecystectomy History of heart artery stent S/P hemodialysis catheter insertion (11/22/20) Right internal jugular vein d/c 12/25/20 Social History Smoking and tobacco status: never smoked Marital status: / Physical Exam Const: COMMON NORMALS: no acute distress, average body habitus, patient oriented x3, no limitations, healthy appearing, alert and well nourished HENMT: COMMON NORMALS: normocephalic, atraumatic, hearing grossly normal bilaterally, external ears normal, EAC's normal, TM's normal bilaterally, Normal external nose present, Normal nasal mucous membranes and turbinates present, moist oral mucous membranes, oropharynx normal, dentition normal and gingiva normal HEAD & SCALP: normocephalic and atraumatic NOSE: Normal external nose present and Normal nasal mucous membranes and turbinates present EXTERNAL EAR: Yes external ears normal EXTERNAL AUDITORY CANAL: EAC's normal TYMPANIC MEMBRANE: TM's normal bilaterally Neck/C-Spine: COMMON NORMALS: full ROM, no lymphadenopathy, supple, no meningeal signs, no JVD, Thyroid normal and No carotid bruits THYROID: Thyroid normal Chest: COMMONS NORMALS: normal inspection of the chest, normal palpation of entire chest wall, normal inspection of the breasts and normal palpation of the breasts Breast/axilla inspection: Yes normal inspection of the breasts BREAST/AXILLA PALPATION: Yes normal palpation of the breasts Resp: COMMON NORMALS: normal respiratory effort, No retractions, No use of accessory muscles, clear to auscultation bilaterally and percussion normal AUSCULTATION: clear to auscultation bilaterally PERCUSSION: percussion normal Cardio: COMMON NORMALS: no JVD, regular rate, regular rhythm, S1 normal heart sound present, S2 normal heart sound present, No gallops present (Cardio), No clicks present (Cardio), No murmurs present (Cardio), No rub (Cardio) and Peripheral pulses 2+ throughout RATE: regular rate RHYTHM: regular rhythm HEART SOUNDS: S1 normal heart sound present and S2 normal heart sound present PERIPHERAL PULSES: Peripheral pulses 2+ throughout GI: COMMON NORMALS: Normal to inspection, nondistended, normoactive bowel sounds present, Soft to palpation, non-tender, No hepatosplenomegaly present, no masses and no bruits PALPATION: Yes Soft to palpation and Yes No hepatosplenomegaly present Back/Pelvis: COMMON NORMALS: thoracic and lumbar spine normal to inspection, no thoracic nor lumbar tenderness, thoraco-lumbar ROM normal and straight leg raise negative bilaterally Extremity: COMMON NORMALS: normal to inspection, full ROM, capillary refill normal, no joint enlargement, no clubbing, cyanosis or edema, no calf tenderness and no pedal edema Neuro: COMMON NORMALS: patient oriented x3 SENSORIUM/ORIENTATION: Yes alert MENINGEAL SIGNS: Yes no meningeal signs Course Reevaluation(s): Reevaluation #1: Initial troponin comes back at greater than 100. Patient denies any chest pain. EKG A. fib with RVR. But no ST changes. Will give patient heparin 4000 units. We will continue to monitor waiting on lab return. Patient difficult IV draw. Time: 18:16 Consultations: Consultation #1: I did discuss at length with Dr. Boykin hospitalist. He is agreeable to admit this patient to the hospital for observation continue monitoring. Patient recently had an elevated troponin of greater than 1100 subsequently dropped to 415 and then subsequently dropped to 215 in late November. Patient does have a history of congestive heart failure morbid morbid obesity and renal failure. He is agreeable for the 4000 heparin IV push would hold until evaluated by nighttime hospitalist Dr. Givens. Patient is stable at this time and has no complaints. Patient be admitted per his request hospitalist will see and write additional orders Time: 18:27 Vital Signs: Vital signs: Vital Signs Temperature 98.3 F 01/16/21 15:04 Pulse Rate 111 H 01/16/21 15:12 Respiratory Rate 23 H 01/16/21 15:04 Blood Pressure 80/42 01/16/21 15:12 Pulse Oximetry 93 01/16/21 15:12 MDM - Fall MDM Narrative: Medical decision making narrative: his patient is a 75-year-old female presents to the emergency department with a history of diabetes and seizure activity. Patient reportedly just got home from doctor's visit from routine doctor's visit. Patient is was found lying on the ramp to her apartment. Patient states she got a little fatigued and sat down and lay down. EMS tried to help her up and get her in the health and she was orthostatic. Patient is somnolent at this time. But easily arousable and answers questions appropriately. Patient states she just feels very tired. Patient denies chest pain. Nursing staff will check bedside glucose. Initial troponin comes back at greater than 100. Patient denies any chest pain. EKG A. fib with RVR. But no ST changes. Will give patient heparin 4000 units. We will continue to monitor waiting on lab return. Patient difficult IV draw. I did discuss at length with Dr. Boykin hospitalist. He is agreeable to admit this patient to the hospital for observation continue monitoring. Patient recently had an elevated troponin of greater than 1100 subsequently dropped to 415 and then subsequently dropped to 215 in late November. Patient does have a history of congestive heart failure morbid morbid obesity and renal failure. He is agreeable for the 4000 heparin IV push would hold until evaluated by nighttime hospitalist Dr. Givens. Patient is stable at this time and has no complaints. Patient be admitted per his request hospitalist will see and write additional orders Lab Data: Labs: Lab Results 01/16/21 01/16/21 01/16/21 Range/Units 15:18 15:37 17:31 WBC Cancelled Corrected WBC Cancelled RBC Cancelled Hgb Cancelled Hct Cancelled MCV Cancelled MCH Cancelled MCHC Cancelled RDW Cancelled Plt Count Cancelled MPV Cancelled Gran % Cancelled Neut % (Auto) Cancelled Lymph % (Auto) Cancelled Barrow % (Auto) Cancelled Eos % (Auto) Cancelled Baso % (Auto) Cancelled Neut # (Auto) Cancelled Lymph # (Auto) Cancelled [place] # (Auto) Cancelled Eos # (Auto) Cancelled Baso # (Auto) Cancelled Absolute Gran (aut o) Cancelled Nucleated RBC % (a uto) Cancelled Nucleated RBCs # Cancelled PT (12.1-14.9) SECO NDS INR (0.8-1.2) APTT (23.9-36.7) SECO NDS Specimen Type Arterial Sample Site Radial, right ABG pH 7.40 (7.35-7.45) ABG pCO2 42.7 (35-45) mmHg ABG pO2 81.3 (80.0-100.0) mmH g ABG HCO3 26.6 H (22-26) mmol/L ABG O2 Saturation 97.2 ABG Base Excess 1.6 (-2.0-2.0) mmol/ L Olvin Test Pos A-a O2 Gradient 2.0 L (5-10) mmHg Hematocrit 30.7 L (37-47) % Hgb O2 Saturation 95.2 (95-100) % Carboxyhemoglobin 1.3 (0.4-20.1) %THgb Methemoglobin 0.8 (0.4-1.5) % Total Hemoglobin 10.0 L (12-16) g/dL Sodium 135.0 (131-143) mmol/L Potassium 3.9 (3.5-5.0) mmol/L Glucose 272.0 H (70-115) mg/dL Ionized Calcium 0.9 L (1.1-1.4) mmol/L O2 Delivery Device Nc O2 Liters/Min 2.5 % Utility Systems Repairer Operator ID Gd Chloride (98-107) mmol/L Carbon Dioxide (22-29) mmol/L Anion Gap (5-19) BUN (8-23) mg/dL Creatinine (0.5-0.9) mg/dL GFR Calculation POC Glucose 301 H (70-110) mg/dL Calculated Osmolal ity (285-295) mOsm/k g Lactic Acid (0.5-2.2) mmol/L Calcium (8.5-10.5) mg/dL Total Bilirubin (0.15-1.2) mg/dL AST (0-32) U/L ALT (0-33) U/L Alkaline Phosphata se (35-105) IU/L Ammonia (11-51) umol/L Troponin T Baselin e (0-10) ng/L NT-Pro-B Natriuret Pep (0-450) pg/mL Total Protein (6.6-8.7) g/dL Albumin (3.5-5.2) g/dL Globulin (1.3-4.6) g/dL Salicylates (3-10) mg/dL 07/06/21 07/06/21 07/06/21 Range/Units 17:31 17:31 17:31 WBC Corrected WBC RBC Hgb Hct MCV MCH MCHC RDW Plt Count MPV Gran % Neut % (Auto) Lymph % (Auto) [place] % (Auto) Eos % (Auto) Baso % (Auto) Neut # (Auto) Lymph # (Auto) [place] # (Auto) Eos # (Auto) Baso # (Auto) Absolute Gran (aut o) Nucleated RBC % (a uto) Nucleated RBCs # PT (12.1-14.9) SECO NDS INR (0.8-1.2) APTT (23.9-36.7) SECO NDS Specimen Type Sample Site ABG pH (7.35-7.45) ABG pCO2 (35-45) mmHg ABG pO2 (80.0-100.0) mmH g ABG HCO3 (22-26) mmol/L ABG O2 Saturation ABG Base Excess (-2.0-2.0) mmol/ L Olvin Test A-a O2 Gradient (5-10) mmHg Hematocrit (37-47) % Hgb O2 Saturation (95-100) % Carboxyhemoglobin (0.4-20.1) %THgb Methemoglobin (0.4-1.5) % Total Hemoglobin (12-16) g/dL Sodium 134 L (131-143) mmol/L Potassium 4.6 (3.5-5.0) mmol/L Glucose 259 H (70-115) mg/dL Ionized Calcium (1.1-1.4) mmol/L O2 Delivery Device O2 Liters/Min % Utility Systems Repairer Operator ID Chloride 94 L (98-107) mmol/L Carbon Dioxide 26 (22-29) mmol/L Anion Gap 18.6 (5-19) BUN 51 H (8-23) mg/dL Creatinine 2.6 H (0.5-0.9) mg/dL GFR Calculation Not Reportable POC Glucose (70-110) mg/dL Calculated Osmolal ity 301 H (285-295) mOsm/k g Lactic Acid 2.4 H (0.5-2.2) mmol/L Calcium 6.1 L (8.5-10.5) mg/dL Total Bilirubin 0.3 (0.15-1.2) mg/dL AST 29 (0-32) U/L ALT 10 (0-33) U/L Alkaline Phosphata se 143 H (35-105) IU/L Ammonia (11-51) umol/L Troponin T Baselin e 119 H* (0-10) ng/L NT-Pro-B Natriuret Pep 4617 H (0-450) pg/mL Total Protein 6.0 L (6.6-8.7) g/dL Albumin 2.9 L (3.5-5.2) g/dL Globulin 3.1 (1.3-4.6) g/dL Salicylates < 0.3 L (3-10) mg/dL 01/16/21 01/16/21 01/16/21 Range/Units 17:55 17:55 17:55 WBC 11.4 H Corrected WBC RBC 3.01 L Hgb 9.7 L Hct 31.2 L MCV 103.7 H MCH 32.2 MCHC 31.1 RDW 14.0 Plt Count 200 MPV 11.8 H Gran % Neut % (Auto) 81.3 Lymph % (Auto) 10.1 Barrow % (Auto) 7.2 Eos % (Auto) 0.6 Baso % (Auto) 0.4 Neut # (Auto) 9.25 H Lymph # (Auto) 1.2 [place] # (Auto) 0.8 Eos # (Auto) 0.1 Baso # (Auto) 0.1 Absolute Gran (aut o) Nucleated RBC % (a uto) 0 Nucleated RBCs # 0.0 PT 16.00 H (12.1-14.9) SECO NDS INR 1.25 H (0.8-1.2) APTT 26.0 (23.9-36.7) SECO NDS Specimen Type Sample Site ABG pH (7.35-7.45) ABG pCO2 (35-45) mmHg ABG pO2 (80.0-100.0) mmH g ABG HCO3 (22-26) mmol/L ABG O2 Saturation ABG Base Excess (-2.0-2.0) mmol/ L Olvin Test A-a O2 Gradient (5-10) mmHg Hematocrit (37-47) % Hgb O2 Saturation (95-100) % Carboxyhemoglobin (0.4-20.1) %THgb Methemoglobin (0.4-1.5) % Total Hemoglobin (12-16) g/dL Sodium (131-143) mmol/L Potassium (3.5-5.0) mmol/L Glucose (70-115) mg/dL Ionized Calcium (1.1-1.4) mmol/L O2 Delivery Device O2 Liters/Min % Utility Systems Repairer Operator ID Chloride (98-107) mmol/L Carbon Dioxide (22-29) mmol/L Anion Gap (5-19) BUN (8-23) mg/dL Creatinine (0.5-0.9) mg/dL GFR Calculation POC Glucose (70-110) mg/dL Calculated Osmolal ity (285-295) mOsm/k g Lactic Acid (0.5-2.2) mmol/L Calcium (8.5-10.5) mg/dL Total Bilirubin (0.15-1.2) mg/dL AST (0-32) U/L ALT (0-33) U/L Alkaline Phosphata se (35-105) IU/L Ammonia 33 (11-51) umol/L Troponin T Baselin e (0-10) ng/L NT-Pro-B Natriuret Pep (0-450) pg/mL Total Protein (6.6-8.7) g/dL Albumin (3.5-5.2) g/dL Globulin (1.3-4.6) g/dL Salicylates (3-10) mg/dL Imaging Data^: CXR: Attestation: I personally reviewed and interpreted this imaging study as follows: Radiologist's impression: IMPRESSION: No acute findings. CT Head: Attestation: I personally reviewed and interpreted this imaging study as follows: Radiologist's impression: IMPRESSION: No acute intracranial abnormality. EKG Data^: EKG 1: Attestation: I personally reviewed and interpreted this EKG as follows: EKG interpretation date: 01/16/21 EKG interpretation time: 16:08 Prior EKG tracings: not available for review Ischemic changes: non-specific ST-T wave changes Interpretation: Atrial fibrillation with RVR heart rate 102 moderate T wave changes. Nonspecific EKG abnormal EKG EKG 2: Attestation: I personally reviewed and interpreted this EKG as follows: EKG interpretation date: 01/16/21 EKG interpretation time: 18:11 Prior EKG tracings: available for review Interpretation: Atrial fib with occasional PVC. Heart rate 95. Abnormal EKG Discharge Plan Discharge Patient Disposition: Placed in Observation Clinical Impression: Orthostasis, Congestive heart failure, Atrial fibrillation with RVR, Chronic kidney failure, Elevated troponin, Morbid obesity Condition: Stable Prescriptions: No Action gabapentin 100 mg capsule 200 mg PO BID RF: 0 levothyroxine 25 mcg tablet 25 mcg PO DAILY@0500 RF: 0 pantoprazole 40 mg tablet,delayed release (DR/EC) 40 mg PO DAILY@0500 RF: 0 levothyroxine 200 mcg tablet 200 mcg PO DAILY@0500 RF: 0 clopidogrel 75 mg tablet 75 mg PO DAILY RF: 0 Levemir Flexpen See Rx Instructions .ROUTE .COMPLEX RF: 0 metolazone 2.5 mg tablet 2.5 mg PO DAILY PRN (Reason: edema) Qty: 30 RF: 0 bumetanide 1 mg tablet 3 mg PO BID RF: 0 digoxin 125 mcg (0.125 mg) tablet 125 mcg PO DAILY RF: 0 metoprolol succinate 25 mg tablet extended release 24 hr 25 mg PO DAILY RF: 0 calcitriol 0.25 mcg capsule 0.25 mcg PO DAILY RF: 0 atorvastatin 80 mg Tablet 80 mg PO BEDTIME@20 RF: 0 phenytoin sodium extended 200 mg Capsule 200 mg PO BID RF: 0 insulin aspart U-100 [Novolog U-100 Insulin aspart] 100 unit/mL Solution See Rx Instructions .ROUTE .COMPLEX RF: 0 Eliquis 2.5 mg Tablet 2.5 mg PO BID RF: 0 Referrals: Pascual Kay MD [Primary Care Provider] - Coding Level of Care Code ED Environmental Engineer Scientist for Chg Fwd Exam Comprehensive
[2021-01-16 15:22] LABS: Glucose Point of Care 301 mg/dL (70-110)
[2021-01-16] MEDS: sodium chloride 0.9% 500 ML IV (15:45)
[2021-01-16 15:54] LABS: ABG PCO2 42.7 mmHg (35-45); Arterial Blood Gas Hematocrit 30.7 % (37-47); Base Excess ABG 1.6 mmol/L (-2.0-2.0); Blood Gas Allen Test Pos; Blood Gas LPM 2.5 %; Blood Gas Operator Identificat GD; Blood Gas Sample Site Radial, right; Blood Gas Sample Type Arterial; Carboxyhemoglobin 1.3 %THgb (0.4-20.1); HCO3 ABG 26.6 mmol/L (22-26); HGB O2 Sat 95.2 % (95-100); Ionized Calcium Level - ABG 0.9 mmol/L (1.1-1.4); Methemoglobin 0.8 % (0.4-1.5); Oxygen Device NC; Oxygen Saturation ABG 97.2; PO2 ABG 81.3 mmHg (80.0-100.0); Potassium Level - ABG 3.9 mmol/L (3.5-5.0)
--- NOTE | 2021-01-16 17:16 | ECG_ITS ---
[facility] Test Date: 2021-01-16 Pat Name: Carole Lee Department: Room: Gender: Female Grinder Chipper: : 1945 Requested By: Hardeep Tilley Order Number: [id number] Reading MD: ANGEL NGO Measurements Intervals [place] Rate: 95 P: VT: QRS: 76 QRSD: 126 T: 263 QT: 361 QTc: 456 Interpretive Statements ATRIAL FIBRILLATION WITH ABERRANT CONDUCTION OR VENTRICULAR PREMATURE COMPLEXES SEPTAL MYOCARDIAL INFARCTION [40+ ms Q WAVE IN V1/V2], PROBABLY OLD MODERATE T-WAVE ABNORMALITY, CONSIDER ANTEROLATERAL ISCHEMIA [-0.1+ mV T WAVE IN V3-V6] MODERATE T-WAVE ABNORMALITY, CONSIDER INFERIOR ISCHEMIA [-0.1+ mV T WAVE IN II/aVF] Compared to ECG 01/16/2021 16:08:31 No significant changes Electronically Signed On 01-16-2021 20:13:22 CDT by ANGEL NGO [email or web address]
[2021-01-16 18:03] LABS: Lactic Sepsis W/Reflex 2.4 mmol/L (0.5-2.2)
[2021-01-16 18:07] LABS: Troponin(5th) Baseline 119 ng/L (0-10)
[2021-01-16 18:11] LABS: Basophils # 0.1 10^3/uL (0.0-0.1); Basophils % 0.4 %; Eosinophils # 0.1 10^3/uL (0.0-0.8); Eosinophils % 0.6 %; Hematocrit 31.2 % (37.0-47.0); Hemoglobin 9.7 g/dL (11.5-15.3); Lymphocytes # 1.2 10^3/uL (0.8-4.8); Lymphocytes % 10.1 %; Mean Corpuscular HGB Conc 31.1 g/dL (30.0-36.0); Mean Corpuscular Hemoglobin 32.2 pg (28.0-34.0); Mean Corpuscular Volume 103.7 fL (81-99); Mean Platelet Volume 11.8 fL (7.4-10.4); Monocytes # 0.8 10^3/uL (0.2-0.9); Monocytes % 7.2 %; Neutrophils # 9.25 10^3/uL (1.8-7.7); Neutrophils % 81.3 %; Nucleated Red Blood Cells % 0 %; Platelet Count 200 10^3/cmm (130-400); Red Blood Count 3.01 10^6/uL (4.1-5.3); White Blood Count 11.4 10^3/uL (4.0-10.0)
[2021-01-16 18:12] LABS: Alanine Aminotransferase 10 U/L (0-33); Albumin Level 2.9 g/dL (3.5-5.2); Alkaline Phosphatase 143 IU/L (35-105); Aspartate Amino Transferase 29 U/L (0-32); Blood Urea Nitrogen 51 mg/dL (8-23); Calcium 6.1 mg/dL (8.5-10.5); Carbon Dioxide 26 mmol/L (22-29); Chloride 94 mmol/L (98-107); Globulin 3.1 g/dL (1.3-4.6); Glucose 259 mg/dL (65-115); NT Pro B Type Natriuretic Pept 4617 pg/mL (0-450); Osmolality Calculated 301 mOsm/kg (285-295); Sodium 134 mmol/L (136-145); Total Bilirubin 0.3 mg/dL (0.15-1.2)
[2021-01-16 18:13] LABS: INR 1.25 (0.8-1.2)
[2021-01-16 18:19] LABS: Ammonia 33 umol/L (11-51)
[2021-01-16 18:20] LABS: Anion Gap 18.6 (5-19); Potassium 4.6 mmol/L (3.5-5.1); Salicylate < 0.3 mg/dL (3-10)
[2021-01-16] MEDS: heparin 5,000 unit/mL INJ 1 mL 4000 UNIT IVP (18:38)
--- NOTE | 2021-01-16 19:04 | PC.NURSE ---
assumed care from CHEYENNE Heredia at 1900 01/16/21
[2021-01-16 19:24] LABS: Reflex Lactate Order REFLEX LACTIC ORDERD
[2021-01-16 19:52] LABS: Phenytoin Dilantin 14.3 ug/mL (10-20)
--- NOTE | 2021-01-16 20:38 | PC.NURSE ---
called report to CHEYENNE Watkins
--- NOTE | 2021-01-16 20:49 | PM.HP ---
Providers/Chief Complaint Admitting Physician: Woody Boykin Primary Care Provider: Pascual Kay MD Chief Complaint: SYNCOPAL EPISODE History of Present Illness Carole Lee is a 75 year old female who presented to the emergency room after a fall. She had been to see Dr. Kay at the clinic. She says that after the doctor's visit she was just extremely tired. She remembers using her walker to get up the ramp at her apartment but having to take a break to rest. Evidently when she did this she had a fall of some kind onto her walker. She was found by others and EMS was called. They found her to be lethargic and orthostatic. She was brought into the emergency room for further evaluation. On arrival here her heart rate was in the 110s to 120s and irregular. Systolic pressures were 80s to 90s. She received some fluids. Work-up revealed an elevated troponin, A. fib with RVR, acute kidney injury and an abnormal urinalysis suggestive of UTI. Patient was recently hospitalized here discharged on January 07. She has known CHF, CKD that transiently required dialysis. At her last hospital stay her Bumex dosing was increased from 2 mg a day to 3 mg a day and metolazone was added. Strict fluid restriction of a liter a day was also initiated. Since that time patient does think she has not been urinating as much. She reports that she was feeling okay until the day of admission. She denies any significant problems when she saw Dr. Kay. Initially she did not complain of any pain to the emergency room physician. At the time of my evaluation she complained of pain in her back. On examination she had a large bruise. Area was tender to palpation. She is chronically on Eliquis. She received heparin in the emergency room because of the elevated troponin. Of note patient had a troponin peaked at 1348 in November of this year. She denied any chest pain or acute difficulty breathing when she was tired earlier. No reported fevers. No upper respiratory symptoms or GI symptoms. She denied any difficulty with urination beyond fluctuations in volume of urine output. She is being admitted due to her presentation today and the abnormal labs that were identified combined with her comorbid conditions. Review of Systems Const: Denies: fever(s), chills or change in weight Eyes: Denies: change in vision ENMT: Denies: throat pain or nasal congestion Card: Reports: edema; Denies: chest pain, palpitations or syncope Resp: Reports: dyspnea; Denies: productive cough or non-productive cough GI: Denies: abdominal pain, nausea, vomiting, diarrhea, constipation, hematochezia or melena : Reports: oliguria; Denies: hematuria Musc: Reports: back pain Skin/Breast: Denies: rash, pruritus or sores Neuro: Reports: weakness in extremities, difficulty walking and dizziness; Denies: headache(s) Psych: Denies: anxiety or depression Jewel/Lymph: Reports: easy bruising and other (Denies any gross bleeding) Medications/Allergies Home Medications Medication Instructions Recorded Confirmed Last Taken Type levothyroxine 25 mcg PO DAILY@0500 09/08/19 01/16/21 01/16/21 History levothyroxine 200 mcg PO DAILY@0500 09/08/19 01/16/21 01/16/21 History pantoprazole 40 mg PO DAILY@0500 09/08/19 01/16/21 01/16/21 History clopidogrel 75 mg PO DAILY 11/29/20 01/16/21 01/16/21 History gabapentin 100 mg capsule 200 mg PO BID cap 12/05/20 01/16/21 01/16/21 History Eliquis 2.5 mg PO BID 12/07/20 01/16/21 01/16/21 History atorvastatin 80 mg PO BEDTIME@20 12/07/20 01/16/21 01/15/21 History insulin aspart U-100 [Novolog See Rx Instructions .ROUTE .COMPLEX 12/07/20 01/16/21 01/06/21 12:00 History U-100 Insulin aspart] phenytoin sodium extended 200 mg PO BID 12/07/20 01/16/21 01/16/21 History Levemir Flexpen See Rx Instructions .ROUTE .COMPLEX 01/07/21 01/16/21 01/05/21 21:00 History metolazone 2.5 mg PO DAILY PRN #30 tab 01/07/21 01/16/21 01/16/21 Rx bumetanide 3 mg PO BID 01/16/21 01/16/21 01/16/21 History calcitriol 0.25 mcg PO DAILY 01/16/21 01/16/21 01/16/21 History digoxin 125 mcg PO DAILY 01/16/21 01/16/21 01/16/21 History metoprolol succinate 25 mg PO DAILY 01/16/21 01/16/21 01/16/21 History Allergies Allergy/AdvReac Type Severity Reaction Status Date / Time gentamicin Allergy Unknown Verified 12/25/20 11:48 hydromorphone [From Dilaudid] Allergy Unknown Verified 12/25/20 11:48 PFSH Acute PFSH: Medical History (Updated 01/17/21 @ 06:30 by Grace Givens MD) Afib Anemia CAD (coronary artery disease) CKD (chronic kidney disease) Diabetes Dyslipidemia HTN (hypertension) Morbid obesity PVD (peripheral vascular disease) 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) Status post insertion of drug-eluting stent into left anterior descending (LAD) artery Venous stasis Surgical History (Updated 01/17/21 @ 06:04 by Grace Givens MD) History of ankle surgery History of cataract surgery History of cholecystectomy History of heart artery stent History of umbilical hernia repair S/P hemodialysis catheter insertion (11/22/20) Right internal jugular vein d/c 12/25/20 Family History (Updated 01/17/21 @ 06:03 by Grace Givens MD) Other Cancer Diabetes Social History (Updated 01/17/21 @ 06:03 by Grace Givens MD) Smoking and tobacco status: never smoked Alcohol intake: never Substance/Drug Use: never Marital status: / Vitals/I&O/Wt Last Vital Signs Temp 98.3 F 01/16/21 15:04 Pulse 93 01/16/21 20:37 Resp 20 H 01/16/21 20:37 BP 111/85 01/16/21 20:37 Pulse Ox 97 01/16/21 20:37 01/16/21 01/16/21 01/16/21 06:59 14:59 22:59 Intake Total 500 / 500 Balance 500 / 500 Weight last 48 hrs Weight 148.325 kg Physical Exam Narrative: EXAM NARRATIVE: Constitutional: Awake and alert, cooperative, lying on her left side HEENT: Normocephalic, extraocular movements are intact, mucous membranes are dry Neck: Large but supple Respiratory: Clear to auscultation bilaterally Cardiovascular: Distant heart sounds, irregular Abdomen: Obese, soft : Normal external genitalia Extremities: Lymphedematous but currently with dry skin, no pitting edema. Has some distal erythema particularly on the right lower extremity compared to the left but without any warmth. Skin: Large bruise to the left flank and back area that has been marked. Also with bruising to the inner thigh that is marked. Both bruises are tender to palpation. Some erythema noted to the right foot at the toes 2-4 with some skin breakdown between the toes, skin is dry and wrinkly in many areas. Neuro: Speech clear, face symmetric, moves all extremities and able to move herself around in bed with some assistance although pain in her back is limiting movement currently Psych: Normal affect Data : 01/16/21 17:55 01/16/21 17:31 Other data: Laboratory Results WBC 11.4 10^3/uL (4.0-10.0) H 01/16/21 17:55 Corrected WBC Cancelled 01/16/21 17:31 RBC 3.01 10^6/uL (4.1-5.3) L 01/16/21 17:55 Hgb 9.7 g/dL (11.5-15.3) L 01/16/21 17:55 Hct 31.2 % (37.0-47.0) L 01/16/21 17:55 MCV 103.7 fL (81-99) H 01/16/21 17:55 MCH 32.2 pg (28.0-34.0) 01/16/21 17:55 MCHC 31.1 g/dL (30.0-36.0) 01/16/21 17:55 RDW 14.0 % (12.1-15.1) 01/16/21 17:55 Plt Count 200 10^3/cmm (130-400) 01/16/21 17:55 MPV 11.8 fL (7.4-10.4) H 01/16/21 17:55 Gran % Cancelled 01/16/21 17:31 Neut % (Auto) 81.3 % 01/16/21 17:55 Lymph % (Auto) 10.1 % 01/16/21 17:55 [place] % (Auto) 7.2 % 01/16/21 17:55 Eos % (Auto) 0.6 % 01/16/21 17:55 Baso % (Auto) 0.4 % 01/16/21 17:55 Neut # (Auto) 9.25 10^3/uL (1.8-7.7) H 01/16/21 17:55 Lymph # (Auto) 1.2 10^3/uL (0.8-4.8) 01/16/21 17:55 [place] # (Auto) 0.8 10^3/uL (0.2-0.9) 01/16/21 17:55 Eos # (Auto) 0.1 10^3/uL (0.0-0.8) 01/16/21 17:55 Baso # (Auto) 0.1 10^3/uL (0.0-0.1) 01/16/21 17:55 Absolute Gran (auto) Cancelled 01/16/21 17:31 Nucleated RBC % (auto) 0 % 01/16/21 17:55 Nucleated RBCs # 0.0 /100WBC 01/16/21 17:55 PT 16.00 SECONDS (12.1-14.9) H 01/16/21 17:55 INR 1.25 (0.8-1.2) H 01/16/21 17:55 APTT 26.0 SECONDS (23.9-36.7) 01/16/21 17:55 Specimen Type Arterial 01/16/21 15:37 Sample Site Radial, right 01/16/21 15:37 ABG pH 7.40 (7.35-7.45) 01/16/21 15:37 ABG pCO2 42.7 mmHg (35-45) 01/16/21 15:37 ABG pO2 81.3 mmHg (80.0-100.0) 01/16/21 15:37 ABG HCO3 26.6 mmol/L (22-26) H 01/16/21 15:37 ABG O2 Saturation 97.2 01/16/21 15:37 ABG Base Excess 1.6 mmol/L (-2.0-2.0) 01/16/21 15:37 Olvin Test Pos 01/16/21 15:37 A-a O2 Gradient 2.0 mmHg (5-10) L 01/16/21 15:37 Hematocrit 30.7 % (37-47) L 01/16/21 15:37 Hgb O2 Saturation 95.2 % (95-100) 01/16/21 15:37 Carboxyhemoglobin 1.3 %THgb (0.4-20.1) 01/16/21 15:37 Methemoglobin 0.8 % (0.4-1.5) 01/16/21 15:37 Total Hemoglobin 10.0 g/dL (12-16) L 01/16/21 15:37 Sodium 135.0 mmol/L (131-143) 01/16/21 15:37 Potassium 3.9 mmol/L (3.5-5.0) 01/16/21 15:37 Glucose 272.0 mg/dL (70-115) H 01/16/21 15:37 Ionized Calcium 0.9 mmol/L (1.1-1.4) L 01/16/21 15:37 O2 Delivery Device Nc 01/16/21 15:37 O2 Liters/Min 2.5 % 01/16/21 15:37 Purchasing Manager ID Gd 01/16/21 15:37 Sodium 134 mmol/L (136-145) L 01/16/21 17:31 Potassium 4.6 mmol/L (3.5-5.1) 01/16/21 17:31 Chloride 94 mmol/L (98-107) L 01/16/21 17:31 Carbon Dioxide 26 mmol/L (22-29) 01/16/21 17:31 Anion Gap 18.6 (5-19) 01/16/21 17:31 BUN 51 mg/dL (8-23) H 01/16/21 17:31 Creatinine 2.6 mg/dL (0.5-0.9) H 01/16/21 17:31 GFR Calculation Not Reportable 01/16/21 17:31 Glucose 259 mg/dL (65-115) H 01/16/21 17:31 POC Glucose 301 mg/dL (70-110) H 01/16/21 15:18 Calculated Osmolality 301 mOsm/kg (285-295) H 01/16/21 17:31 Lactic Acid 2.4 mmol/L (0.5-2.2) H 01/16/21 17:31 Calcium 6.1 mg/dL (8.5-10.5) L 01/16/21 17:31 Total Bilirubin 0.3 mg/dL (0.15-1.2) 01/16/21 17:31 AST 29 U/L (0-32) 01/16/21 17:31 ALT 10 U/L (0-33) 01/16/21 17:31 Alkaline Phosphatase 143 IU/L (35-105) H 01/16/21 17:31 Ammonia 33 umol/L (11-51) 01/16/21 17:55 Troponin T Baseline 119 ng/L (0-10) H* 01/16/21 17:31 NT-Pro-B Natriuret Pep 4617 pg/mL (0-450) H 01/16/21 17:31 Total Protein 6.0 g/dL (6.6-8.7) L 01/16/21 17:31 Albumin 2.9 g/dL (3.5-5.2) L 01/16/21 17:31 Globulin 3.1 g/dL (1.3-4.6) 01/16/21 17:31 Salicylates < 0.3 mg/dL (3-10) L 01/16/21 17:31 Phenytoin 14.3 ug/mL (10-20) 01/16/21 17:31 Impressions Chest X-Ray 01/16/21 15:16 IMPRESSION: No acute findings. Head CT 01/16/21 15:16 IMPRESSION: No acute intracranial abnormality. Radiation Dose CTDIVOL = (mGy): DLP = 1914.83 (mGy-cm) Prior or outside records reviewed: Reviewed previous hospital stay discharge summary and labs as well as some other previous records available here A&P Assessment and plan (1) Weakness: Status: Acute (2) Fall: Walking up a ramp at apartment Status: Acute Qualifiers: Encounter type: initial encounter Qualified Code(s): W19.XXXA - Unspecified fall, initial encounter (3) Hematoma of left flank: Status: Acute Qualifiers: Encounter type: initial encounter Qualified Code(s): S30.1XXA - Contusion of abdominal wall, initial encounter (4) Chronic anticoagulation: With Eliquis Status: Chronic (5) TIFFANY (acute kidney injury): In a patient with chronic kidney disease stage III-IV Status: Acute (6) Elevated troponin: In a patient with a history of coronary artery disease, current troponin levels are downtrending from peak values over 1300 in November Status: Acute (7) Atrial fibrillation with RVR: In a patient with chronic atrial fibrillation Status: Acute (8) Congestive heart failure: Chronic systolic, currently actually may be a bit over diuresed Status: Chronic Qualifiers: Heart failure type: systolic Heart failure chronicity: chronic Qualified Code(s): I50.22 - Chronic systolic (congestive) heart failure (9) Diabetes: Chronically on insulin therapy Status: Chronic Qualifiers: Diabetes mellitus type: type 2 Diabetes mellitus correction insulin use: with correction use Diabetes mellitus complication status: with kidney complications Diabetes mellitus complication detail: with chronic kidney disease Chronic kidney disease stage: stage 3 (moderate) Chronic kidney disease stage 3 subtype: stage 3b (GFR 30-44) Qualified Code(s): E11.22 - Type 2 diabetes mellitus with diabetic chronic kidney disease; N18.32 - Chronic kidney disease, stage 3b; Z79.4 - technician terminal and repeater (current) use of insulin (10) Anemia: Suspect has some degree of anemia of chronic kidney disease but current concern is for acute blood loss anemia given extent of hematoma Status: Chronic Qualifiers: Anemia type: unspecified type Qualified Code(s): D64.9 - Anemia, unspecified (11) Morbid obesity: Status: Chronic Additional A&P Information Abnormal urinalysis similar to results from last hospital stay when urine culture demonstrated only 30-40,000 CFU's of a [place], patient denies urinary symptoms. Observation admission for now Check CT of the abdomen and pelvis secondary to large painful hematoma in a patient on Eliquis Area of hematoma involvement was marked by me on examination Repeat H&H in the morning Hold Eliquis until we see if her hemoglobin drops significantly overnight; if hemoglobin stable resume in the morning and appropriate renal dosing Check digoxin level Check CK level Continue home Plavix, a lower dose of gabapentin, levothyroxine, insulin coverage Continue half of home metoprolol dosing Received some IV fluids in the emergency room, have not continued further fluids presently given chronic CHF Holding oral diuretics presently though anticipate will need to resume a lower dose without metolazone soon Monitor overall volume status closely Rechek electrolytes, renal function in am Check orthostatics in am Continue serial cardiac enzymes Sliding scale insulin and low-dose long-acting insulin for diabetes PT eval and treat Supportive care otherwise Further plans of care pending clinical course overnight Currently anticipate disposition back home SCDs for DVT prophylaxis until able to safely resume Eliquis Findings, concerns and plans were discussed with the patient and she was given an opportunity to ask questions. She understands reason for CT of the abdomen and pelvis and thinks that she can lie flat for procedure though admits that it is going to be uncomfortable for her. Full code Attestations Medical Necessity Statement*: Anticipated stay less than 2 midnights currently in this patient presenting as described. She was recently hospitalized Coding Level of Care Code Acute Communications Assistant for Chg Fwd Diagnoses Weakness R53.1 Fall W19.XXXA Encounter type: initial encounter Hematoma of left flank S30.1XXA Encounter type: initial encounter Chronic anticoagulation Z79.01 TIFFANY (acute kidney injury) N17.9 Elevated troponin R77.8 Atrial fibrillation with RVR I48.91 Congestive heart failure I50.22 Heart failure type: systolic Heart failure chronicity: chronic Diabetes E11.22; N18.32; Z79.4 Diabetes mellitus type: type 2 Diabetes mellitus exterminator insulin use: with correction use Diabetes mellitus complication status: with kidney complications Diabetes mellitus complication detail: with chronic kidney disease Chronic kidney disease stage: stage 3 (moderate) Chronic kidney disease stage 3 subtype: stage 3b (GFR 30-44) Anemia D64.9 Anemia type: unspecified type Morbid obesity E66.01
[2021-01-16 20:53] LABS: Lactic Acid level (Lactate) 1.9 mmol/L (0.5-2.2)
[2021-01-16 21:02] LABS: Troponin 5 2HR Delta -7.7 ABS# (0-10)
[2021-01-16 21:04] LABS: Troponin 5 2HR 111.3 ng/L (0-10)
--- NOTE | 2021-01-16 21:16 | ECG_ITS ---
[facility] Test Date: 2021-01-16 Pat Name: Carole Lee Department: Room: 111 Gender: Female Specialized Developer: : 1945 Requested By: Hardeep Tliley Order Number: [id number] Danielle MD: Antonietta Jo M.D. Measurements Intervals [place] Rate: 96 P: MD: QRS: 79 QRSD: 110 T: 204 QT: 390 QTc: 494 Interpretive Statements ATRIAL FIBRILLATION WITH ABERRANT CONDUCTION OR VENTRICULAR PREMATURE COMPLEXES LOW QRS VOLTAGE IN PRECORDIAL LEADS [QRS DEFLECTION < 1.0 mV IN CHEST LEADS] ST DEVIATION AND MODERATE T-WAVE ABNORMALITY, CONSIDER INFERIOR ISCHEMIA [-0.1+ mV T WAVE IN II/aVF] WARNING: DATA QUALITY MAY AFFECT INTERPRETATION Compared to ECG 01/16/2021 18:11:17 Low QRS voltage now present Myocardial infarct finding no longer present T-wave abnormality still present Possible ischemia still present Electronically Signed On 01-17-2021 22:57:11 CDT by Antonietta Jo M.D. [id number]
--- NOTE | 2021-01-16 21:41 | CTR_ITS ---
PROCEDURE INFORMATION: Exam: CT Abdomen And Pelvis Without Contrast Exam date and time: 01/16/2021 9:41 PM Age: 75 years old Clinical indication: Abdominal pain; Flank; Left; Prior surgery; Surgery type: Gb; Additional info: Large left flank hematoma, pain, fall, eliquis, drop in hgb, please evaluate for retroperitoneal bleed TECHNIQUE: Imaging protocol: Computed tomography of the abdomen and pelvis without contrast. Total images: 277 Radiation optimization: All CT scans at this facility use at least one of these dose optimization techniques: automated exposure control; mA and/or kV adjustment per patient size (includes targeted exams where dose is matched to clinical indication); or iterative reconstruction. COMPARISON: CT abdomen pelvis wo con [id number] 11/16/2020 4:18 PM RADIATION DOSE METRICS: Total DLP (mGy-cm): 2574.83 FINDINGS: Lungs: Limited assessment of the lung bases fails to reveal evidence for active cardiopulmonary process. Granulomas of antecedent disease. Heart: Cardiac size upper limits of normal. No visible pericardial effusion. Coronary artery disease. Liver: No visible hepatic mass or cystic structure. Rare calcified hepatic granuloma. Gallbladder and bile ducts: Status post cholecystectomy. Pancreas: Near complete fatty replaced the pancreas. No visible pancreatic ductal ectasia. Spleen: Scattered calcified splenic granulomas of antecedent disease. Spleen otherwise unremarkable. Adrenal glands: Adrenal glands unremarkable. Kidneys and ureters: Bilateral renal parenchyma cortical atrophy again noted and stable. No hydronephrosis or perinephric fluid. Stable simple cortical cyst equator left kidney. No follow-up recommended. No visible nephrolithiasis. Stomach and bowel: Mild diverticulosis coli without visible evidence for acute diverticulitis. Nonobstructive bowel pattern. No visible adynamic or reactive ileus. Appendix: The appendix is not visualized presumed surgically absent. Intraperitoneal space: No visible evidence of mesenteric lymphadenitis or active mesenteritis/panniculitis. No visible pneumoperitoneum or intraperitoneal ascites. Retroperitoneal space: No visible intra-abdominal, intrapelvic, intraperitoneal, or retroperitoneal hematoma. Vasculature: The abdominal aorta is nonaneurysmal. Moderate arterial sclerotic disease. Lymph nodes: No current visible evidence of active mesenteric or retroperitoneal lymphadenopathy. Urinary bladder: Urinary bladder unremarkable. Reproductive: Unremarkable as visualized for age. Bones/joints: No visible active or acute osseous pathology. Degenerative disease of the distal thoracic spine with spondylosis deformans. Facet arthrosis. Soft tissues: Marked morbid obesity. Suspected soft tissue contusions left flank and dorsal soft tissue subcutaneous fat with a potential unorganized hematoma medially dorsal the lumbar spine. Dimensions of this potential hematoma approximately 11 cm x 6 cm x 6 cm. Other findings: Increased quantum mottle artifact. CT/CT abdomen pelvis wo con [id number] IMPRESSION: 1. Suspected soft tissue contusions left flank and dorsal soft tissue subcutaneous fat with a potential unorganized hematoma medially dorsal the lumbar spine. Dimensions of this potential hematoma approximately 11 cm x 6 cm x 6 cm. 2. No other visible evidence of blunt abdominal or pelvic trauma. 3. No visible solid or hollow viscus organ injury/trauma. 4. Other nonurgent, nonemergent, chronic, postoperative, and age related findings as detailed in text above. Radiation Dose CTDIVOL = (mGy): DLP = 2574.83 (mGy-cm)
--- NOTE | 2021-01-16 21:54 | PC.NURSE ---
Patient received at this time from ED via stretcher. Patient transferred to bed using inflatable morelia and x4 assist. Patient noted to have large amount of bruising to left back/flank. Patient reported falling at home today. She is not sure if she passed out or not. CT here to help take patient to CT. DARLYN Goode went with patient.
[2021-01-16] MEDS: acetaminophen 325 mg Tablet 650 MG PO (23:24)
[2021-01-16 23:44] LABS: Troponin 5 6HR Delta -3.6 ng/L (0-12)
[2021-01-16 23:45] LABS: Troponin 5 6HR 115.4 ng/L (0-10)
--- NOTE | 2021-01-16 23:54 | PC.NURSE ---
Patient reported unable to urinate from [address] In[address] Givens and received order for Acevedo catheter placement. Acevedo catheter has been placed per aseptic technique. Patient tolerated well. Noted 75ml of cloudy, yellow urine returned. Obtained sample and sent to lab as ordered.
[2021-01-17] VITALS (12 sets, daily range): BP systolic 90–152; BP diastolic 38–64; PULSE 72–101; RESP 12–26; TEMP 36.6–36.8; O2SAT 90–98
[2021-01-17 00:19] LABS: Add Urine Culture? Yes; Add Urine Microscopic? YES; Amphetamines Screen Urine Negative (Negative); Bacteria Urine 1+ /hpf; Barbiturates Screen Urine Positive (Negative); Benzodiazepines Screen Urine Negative (Negative); Bilirubin Urine 1+ (Negative); Blood Urine 2+ (Negative); Cocaine Screen Urine Negative (Negative); Glucose Urine UA Norm (Normal); Ketones Urine Negative (Negative); Leukocyte Esterase Urine 2+ (Negative); Nitrate Urine Negative (Negative); Opiate Screen Urine Negative (Negative); PCP Screen Urine Negative (Negative); Protein Urine Neg (Negative); RBC Urine 0-4 /hpf (0-2); Specific Gravity, Urine 1.015 (1.005-1.030); Squamous Epithelial Cell Urine 0-4 /hpf (0-5); THC Screen Urine Negative (Negative); Urine Appearance Hazy (CLEAR); Urine Color Yellow (Yellow); Urobilinogen Urine Norm (Negative); WBC Urine >100 /hpf (0-5); pH Urine 5 (5-7)
--- NOTE | 2021-01-17 04:59 | PC.NURSE ---
Informed Dr Givens of patient output of 150ml. No new orders received.
[2021-01-17 06:31] LABS: Glucose Point of Care 192 mg/dL (70-110)
[2021-01-17] MEDS: clotrimazole 1% cream 30 gm 1 APPLIC TOPICAL ×2 (09:29→16:52)
[2021-01-17] MEDS: insulin glargine 100 units/1 mL 5 UNIT SUBCUT (09:30)
[2021-01-17] MEDS: metoprolol succinate ER (24 HR) 25 mg Tablet 12.5 MG PO (09:31)
[2021-01-17] MEDS: gabapentin 100 mg Capsule PO ×2 (09:33→16:50)
[2021-01-17] MEDS: clopidogrel 75 mg Tablet PO (09:33)
[2021-01-17] MEDS: phenytoin ER 100 mg Capsule 200 MG PO ×2 (09:34→16:55)
[2021-01-17 09:44] LABS: Basophils # 0.1 10^3/uL (0.0-0.1); Basophils % 0.9 %; Eosinophils # 0.4 10^3/uL (0.0-0.8); Eosinophils % 5.9 %; Hematocrit 27.2 % (37.0-47.0); Hemoglobin 8.4 g/dL (11.5-15.3); Lymphocytes # 2.3 10^3/uL (0.8-4.8); Lymphocytes % 34.8 %; Mean Corpuscular HGB Conc 30.9 g/dL (30.0-36.0); Mean Corpuscular Hemoglobin 32.2 pg (28.0-34.0); Mean Corpuscular Volume 104.2 fL (81-99); Mean Platelet Volume 11.8 fL (7.4-10.4); Monocytes # 0.8 10^3/uL (0.2-0.9); Monocytes % 11.5 %; Neutrophils # 3.06 10^3/uL (1.8-7.7); Neutrophils % 46.3 %; Nucleated Red Blood Cells % 0 %; Platelet Count 176 10^3/cmm (130-400); Red Blood Count 2.61 10^6/uL (4.1-5.3); Red Cell Distribution Width 13.9 % (12.1-15.1); White Blood Count 6.6 10^3/uL (4.0-10.0)
[2021-01-17 09:55] LABS: Alanine Aminotransferase 9 U/L (0-33); Albumin Level 2.5 g/dL (3.5-5.2); Alkaline Phosphatase 137 IU/L (35-105); Anion Gap 15.1 (5-19); Aspartate Amino Transferase 23 U/L (0-32); Blood Urea Nitrogen 54 mg/dL (8-23); Calcium 6.2 mg/dL (8.5-10.5); Carbon Dioxide 26 mmol/L (22-29); Chloride 98 mmol/L (98-107); Glucose 166 mg/dL (65-115); Magnesium 1.1 mg/dL (1.7-2.3); Osmolality Calculated 299 mOsm/kg (285-295); Phosphorus 4.1 mg/dL (2.5-4.5); Potassium 4.1 mmol/L (3.5-5.1); Sodium 135 mmol/L (136-145); Total Bilirubin 0.4 mg/dL (0.15-1.2); Total Protein 5.5 g/dL (6.6-8.7)
--- NOTE | 2021-01-17 10:12 | PC.CHAP ---
Pastoral Care Encounter/Spiritual Assessment Type of Contact [] Declined steel die press set up operator visit [] Patient/Family/Request visit [] Outpatient visit [] Follow-up visit [] Physician referral [] Code/Alert [x] Routine visit [] Staff referral [] Actively dying [] Patient sleeping [x] Family support [] [] Out of room [] Palliative care [] [x] Receiving care in room [] Pre-surgical visit [] Trauma [] Long length of stay [] ICU visit [] Other: Relational/Emotional Strength [] Patient feels connected with others/family/visitors/staff [] Distress [] Loneliness/isolation [] Abandonment Spirituality of Patient [] Person of Jennifer [] Attends Bahai of their Jennifer [] Believes in Prayer [] Reads Bible or Congregational materials [] There are Spiritual issues to be addressed Flyer Repairer Interventions [x] Prayer [] Active listening [] Non-anxious presence [] Spiritual/emotional support [] Crisis/trauma care [] Spiritual counseling [] Bereavement support [] Provided bereavement packet [] Provided Bible/devotional materials [] Provided toy/stuffed animal, coloring book to patient or family member [] Provided Communion [] Anointing/[place] [] Salvation [x] Completed spiritual assessment [] Other: Impact on Illness or Injury [] Angry [] Fearful [] Anxious [] Often cries [] Exhaustion [] Unable to work [] Unable to attend roman catholic [] Unable to walk/stand [] Unable to read [] Unable to drive [] Unable to eat/drink [] Unable to sleep [] Unable to be with family [] Patient intubated [] Other: Summary Time spent with patient
[2021-01-17 10:26] LABS: Creatine Phosphokinase 283 U/L (26-192); Digoxin 1.4 ng/mL (0.6-1.2)
[2021-01-17 11:46] LABS: Glucose Point of Care 223 mg/dL (70-110)
--- NOTE | 2021-01-17 12:44 | PC.NURSE ---
physical therapy did orthostatic bp's...102/50 supine, and 102/38.when stood pt...she appeared to have fainted.she was assisted back to bed.awoke quickly
[2021-01-17] MEDS: magnesium sulfate premix 2 GM/50 ML PIGGYBACK IV (15:48)
[2021-01-17] MEDS: cefTRIAXone 1,000 MG in sodium chloride 0.9% (plus) 50 ML 100 MG IV (16:37)
[2021-01-17 16:44] LABS: Glucose Point of Care 174 mg/dL (70-110)
[2021-01-17] MEDS: fluconazole 100 mg Tablet PO (16:50)
--- NOTE | 2021-01-17 19:44 | PC.NURSE ---
Received bedside report from CHEYENNE Ortiz. Patient resting in bed watching tv. C/o mild pain to left flank due to recent fall at home. Acevedo catheter in place.
--- NOTE | 2021-01-17 20:11 | PM.PN ---
Subjective Subjective: Interval history: She is doing a bit better. Blood pressure improved, however, this morning did have a presyncopal and/or syncopal event with brief decrease in responsiveness while trying to stand up, with immediate resolution on laying back in bed. During my visit sitting up/reclined in bed, denies lightheadedness, denies shortness of breath, denies chest pain or pressure. States she had been taking her Lasix both the scheduled Bumex and a as needed metolazone at all times. She was also strictly adherent to fluid restriction. Vitals/I&O/Wt Last Vital Signs Temp 98.0 F 01/17/21 11:30 Pulse 72 01/17/21 19:51 Resp 16 01/17/21 19:51 BP 120/54 01/17/21 19:51 Pulse Ox 92 01/17/21 16:00 01/17/21 01/17/21 01/17/21 06:59 14:59 22:59 Intake Total 390 / 890 240 / 240 200 / 440 Output Total 150 / 150 Balance 240 / 740 240 / 240 200 / 440 Weight last 48 hrs Weight 154.221 kg Weight 154.494 kg Weight 148.325 kg Physical Exam Const: COMMON NORMALS: no acute distress and patient oriented x3 NUTRITIONAL APPEARANCE: obese HENMT: COMMON NORMALS: oropharynx normal Neck/C-Spine: COMMON NORMALS: no JVD Resp: COMMON NORMALS: normal respiratory effort and clear to auscultation bilaterally AUSCULTATION: clear to auscultation bilaterally Cardio: COMMON NORMALS: no JVD, regular rhythm, S1 normal heart sound present, S2 normal heart sound present and No murmurs present (Cardio) RHYTHM: regular rhythm HEART SOUNDS: S1 normal heart sound present and S2 normal heart sound present GI: COMMON NORMALS: Normal to inspection, nondistended, normoactive bowel sounds present, Soft to palpation and non-tender PALPATION: Yes Soft to palpation Extremity: COMMON NORMALS: no joint enlargement GENERAL: Yes edema (2+ BL LE) Neuro: COMMON NORMALS: patient oriented x3 and moves all extremities Skin: COMMON NORMALS: no rashes or lesions noted GENERAL SKIN EXAM: no rashes or lesions noted Urinary Catheter Management^: Acevedo: Cath Placed During This Visit: yes Reason for Continuing Indwelling Catheter: Accurate Measurement of Urinary Output in Critically Ill Patients Urinary Catheter Date of Insertion: 01/16/21 Urinary Catheter Time of Insertion: 23:42 Data : 01/17/21 09:14 01/17/21 09:14 A&P Assessment and plan (1) Weakness: Dehydration secondary to overdiuresis, although does have persistent lower extremity edema, however, discussed with her likely this is not related to CHF, and cautioned her against trying to pursue complete resolution of edema. Discussed possibility of venous stasis and other causes. Hypotension, 80/42 on presentation did resolve, however, did have orthostatic presyncopal event while trying to stand up with physical therapy this morning. Blood pressure improving through the day. Received small fluid bolus in the ER. We are giving her additional infusion of albumin. Diuretics for now are on hold. Discussed with her metolazone was supposed to be as needed only. We will de-escalate diuretics, she may continue fluid restriction, and with that may not require as intense diuretic regimen. Reassess how she feels, volume status, orthostatics in the morning. We will additionally monitor in the hospital tonight. Treat for UTI. Hold digoxin due to supratherapeutic level. Monitor on telemetry. Status: Acute (2) Fall: Walking up a ramp at apartment Status: Acute Qualifiers: Encounter type: initial encounter Qualified Code(s): W19.XXXA - Unspecified fall, initial encounter (3) Hematoma of left flank: Anticoagulation on hold. Recheck hemoglobin. Does appear to have acute hemoglobin declined with acute on chronic anemia down to 8.4. Status: Acute Qualifiers: Encounter type: initial encounter Qualified Code(s): S30.1XXA - Contusion of abdominal wall, initial encounter (4) Chronic anticoagulation: With Eliquis Status: Chronic (5) TIFFANY (acute kidney injury): In a patient with chronic kidney disease stage III-IV Fluid challenge. Reassess renal function. Transiently required hemodialysis previously. Status: Acute (6) Elevated troponin: In a patient with a history of coronary artery disease, current troponin levels are downtrending from peak values over 1300 in November Status: Acute (7) Atrial fibrillation with RVR: In a patient with chronic atrial fibrillation Eliquis on hold for now. Metoprolol Status: Acute (8) Congestive heart failure: Chronic systolic, currently actually may be a bit over diuresed Status: Chronic Qualifiers: Heart failure chronicity: chronic Heart failure type: systolic Qualified Code(s): I50.22 - Chronic systolic (congestive) heart failure (9) Diabetes: Chronically on insulin therapy Status: Chronic Qualifiers: Chronic kidney disease stage: stage 3 (moderate) Chronic kidney disease stage 3 subtype: stage 3b (GFR 30-44) Diabetes mellitus complication detail: with chronic kidney disease Diabetes mellitus complication status: with kidney complications Diabetes mellitus intermediate manager insulin use: with intermediate manager use Diabetes mellitus type: type 2 Qualified Code(s): E11.22 - Type 2 diabetes mellitus with diabetic chronic kidney disease; N18.32 - Chronic kidney disease, stage 3b; 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 Hold anticoagulation. Status: Chronic Qualifiers: Anemia type: unspecified type Qualified Code(s): D64.9 - Anemia, unspecified (11) Morbid obesity: Status: Chronic (12) UTI (urinary tract infection): Discussed with her findings on UA consistent with UTI. Urine culture pending. She is agreeable to start treatment with Rocephin, last time grew yeast, although on follow-up phone call had no symptoms. 30-40,000 CFU. Given weakness, fall, she is agreeable to treat also with renally dosed Diflucan. Status: Acute (13) Elevated digoxin level: Hold digoxin, and would discontinue entirely at discharge given chronic kidney disease, unstable renal function. Status: Acute Attestations Medical Necessity Statement*: Continue hospitalization for assessment management of generalized weakness, urinary tract infection, hypotension, orthostasis, reassessment of acute on chronic anemia, reassessment with supratherapeutic digoxin level in the setting of chronic kidney disease with acute kidney injury. Coding Level of Care Code Acute Wad Impregnator for Sosa Bates Diagnoses Weakness R53.1 Fall W19.XXXA Encounter type: initial encounter Hematoma of left flank S30.1XXA Encounter type: initial encounter Chronic anticoagulation Z79.01 TIFFANY (acute kidney injury) N17.9 Elevated troponin R77.8 Atrial fibrillation with RVR I48.91 Congestive heart failure I50.22 Heart failure chronicity: chronic Heart failure type: systolic Diabetes E11.22; N18.32; Z79.4 Chronic kidney disease stage: stage 3 (moderate) Chronic kidney disease stage 3 subtype: stage 3b (GFR 30-44) Diabetes mellitus complication detail: with chronic kidney disease Diabetes mellitus complication status: with kidney complications Diabetes mellitus fpc insulin use: with intermediate manager use Diabetes mellitus type: type 2 Anemia D64.9 Anemia type: unspecified type Morbid obesity E66.01 UTI (urinary tract infection) N39.0 Elevated digoxin level R78.89
[2021-01-17 20:45] LABS: Glucose Point of Care 245 mg/dL (70-110)
[2021-01-18] VITALS (10 sets, daily range): BP systolic 108–153; BP diastolic 46–64; PULSE 62–79; RESP 15–27; TEMP 36.6–37; O2SAT 92–95
--- NOTE | 2021-01-18 03:27 | PC.NURSE ---
Patient c/o extreme dry skin to back and arms. Applied AloeVesta to back and right arm. Will apply to left arm after patient repositions. Patient continues to favor left side after fall at home. Bruising to left flank improving.
[2021-01-18] MEDS: levothyroxine 200 mcg Tablet PO (05:27)
[2021-01-18] MEDS: pantoprazole DR 40 mg Tablet PO (05:27)
[2021-01-18 06:01] LABS: Basophils # 0.1 10^3/uL (0.0-0.1); Basophils % 0.8 %; Eosinophils # 0.5 10^3/uL (0.0-0.8); Eosinophils % 7.7 %; Hematocrit 24.6 % (37.0-47.0); Hemoglobin 7.7 g/dL (11.5-15.3); Lymphocytes # 1.7 10^3/uL (0.8-4.8); Lymphocytes % 27.6 %; Mean Corpuscular HGB Conc 31.3 g/dL (30.0-36.0); Mean Corpuscular Hemoglobin 32.5 pg (28.0-34.0); Mean Corpuscular Volume 103.8 fL (81-99); Mean Platelet Volume 12.1 fL (7.4-10.4); Monocytes # 0.8 10^3/uL (0.2-0.9); Monocytes % 13.7 %; Neutrophils # 3.02 10^3/uL (1.8-7.7); Neutrophils % 49.4 %; Nucleated Red Blood Cells % 0 %; Platelet Count 175 10^3/cmm (130-400); Red Blood Count 2.37 10^6/uL (4.1-5.3); White Blood Count 6.1 10^3/uL (4.0-10.0)
[2021-01-18 06:20] LABS: Alanine Aminotransferase 7 U/L (0-33); Albumin Level 2.6 g/dL (3.5-5.2); Alkaline Phosphatase 122 IU/L (35-105); Aspartate Amino Transferase 20 U/L (0-32); Blood Urea Nitrogen 56 mg/dL (8-23); Calcium 6.1 mg/dL (8.5-10.5); Carbon Dioxide 27 mmol/L (22-29); Chloride 97 mmol/L (98-107); Glucose 176 mg/dL (65-115); Osmolality Calculated 302 mOsm/kg (285-295); Sodium 136 mmol/L (136-145); Total Bilirubin 0.3 mg/dL (0.15-1.2); Total Protein 5.6 g/dL (6.6-8.7)
[2021-01-18 07:05] LABS: Glucose Point of Care 191 mg/dL (70-110)
[2021-01-18 07:14] LABS: Digoxin 1.1 ng/mL (0.6-1.2)
[2021-01-18] MEDS: gabapentin 100 mg Capsule PO ×2 (10:35→17:34)
[2021-01-18] MEDS: metoprolol succinate ER (24 HR) 25 mg Tablet 12.5 MG PO (10:35)
[2021-01-18] MEDS: phenytoin ER 100 mg Capsule 200 MG PO ×2 (10:36→17:33)
[2021-01-18] MEDS: clopidogrel 75 mg Tablet PO (10:36)
[2021-01-18] MEDS: docusate sodium 100 mg Capsule PO ×2 (10:37→17:33)
[2021-01-18] MEDS: insulin glargine 100 units/1 mL 5 UNIT SUBCUT (10:50)
[2021-01-18 11:16] LABS: Glucose Point of Care 258 mg/dL (70-110)
--- NOTE | 2021-01-18 12:15 | PM.PN ---
Subjective Subjective: Interval history: No hypotension at rest, her, with rising blood pressure still drops down, down to 90 systolic with standing just before my visit. Denies chest pain or pressure. Otherwise she is doing all right. Leg swelling persists. She states she elevates them at home. She states she had compression stockings, however, they now do not fit her. She states that she could not afford a new pair as they cost her $400 due to the size of her legs. She was following with wound care previously. Discussed with her additional options including compression wraps. Encouraged her to follow-up again with wound care. Vitals/I&O/Wt Last Vital Signs Temp 98.6 F 01/18/21 11:53 Pulse 76 01/18/21 11:53 Resp 18 01/18/21 11:53 BP 152/64 01/18/21 11:53 Pulse Ox 92 01/18/21 11:53 01/17/21 01/18/21 01/18/21 22:59 06:59 14:59 Intake Total 350 / 590 150 / 740 240 / 240 Output Total 200 / 200 Balance 350 / 590 -50 / 540 240 / 240 Weight last 48 hrs Weight 150.593 kg Weight 154.221 kg Weight 154.494 kg Weight 148.325 kg Physical Exam Const: COMMON NORMALS: no acute distress and patient oriented x3 NUTRITIONAL APPEARANCE: obese HENMT: COMMON NORMALS: oropharynx normal Neck/C-Spine: COMMON NORMALS: no JVD Resp: COMMON NORMALS: normal respiratory effort and clear to auscultation bilaterally AUSCULTATION: clear to auscultation bilaterally Cardio: COMMON NORMALS: no JVD, regular rhythm, S1 normal heart sound present, S2 normal heart sound present and No murmurs present (Cardio) RHYTHM: regular rhythm HEART SOUNDS: S1 normal heart sound present and S2 normal heart sound present GI: COMMON NORMALS: Normal to inspection, nondistended, normoactive bowel sounds present, Soft to palpation and non-tender PALPATION: Yes Soft to palpation Extremity: COMMON NORMALS: no joint enlargement GENERAL: Yes edema (2+ BL LE) Neuro: COMMON NORMALS: patient oriented x3 and moves all extremities Skin: COMMON NORMALS: no rashes or lesions noted GENERAL SKIN EXAM: no rashes or lesions noted Urinary Catheter Management^: Acevedo: Cath Placed During This Visit: yes Reason for Continuing Indwelling Catheter: Acute Urinary Retention or Obstruction Urinary Catheter Date of Insertion: 01/16/21 Urinary Catheter Time of Insertion: 23:42 Data : 01/18/21 04:37 01/18/21 04:37 Micro: Microbiology 01/16/21 23:40 Urine Culture - Preliminary Urine,Clean Catch Yeast A&P Assessment and plan (1) Anemia: Additional decrease in hemoglobin down to 7.7. Continue to hold anticoagulation. She had just had a stent placed in November. For now discussed with her options with discontinuation of Plavix tomorrow, this would elevate her risk of stent complication. She is agreeing to continue with Plavix at this time while holding anticoagulation. Recheck hemoglobin. Requires additional adjustment of medications, close monitoring in the hospital with acute blood loss anemia in the setting of antiplatelet use, need for anticoagulation. Suspect has some degree of anemia of chronic kidney disease but current concern is for acute blood loss anemia given extent of hematoma Recheck hemoglobin. Hold anticoagulation. Status: Chronic Qualifiers: Anemia type: unspecified type Qualified Code(s): D64.9 - Anemia, unspecified (2) Weakness: Orthostatic hypotension again noted this morning. Blood pressure 123/52 this morning. On standing, systolic blood pressure down to 90. Additional albumin bolus. Start midodrine. Monitor blood pressure. Dehydration secondary to overdiuresis, although does have persistent lower extremity edema, however, discussed with her likely this is not related to CHF, and cautioned her against trying to pursue complete resolution of edema. Discussed possibility of venous stasis and other causes. Hypotension, 80/42 on presentation did resolve, however, did have orthostatic presyncopal event while trying to stand up with physical therapy this morning. Blood pressure improving through the day. Received small fluid bolus in the ER. We are giving her additional infusion of albumin. Diuretics for now are on hold. Discussed with her metolazone was supposed to be as needed only. We will de-escalate diuretics, she may continue fluid restriction, and with that may not require as intense diuretic regimen. Reassess how she feels, volume status, orthostatics in the morning. We will additionally monitor in the hospital tonight. Treat UTI. Supratherapeutic digoxin level resolved. Status: Acute (3) Fall: Walking up a ramp at apartment Status: Acute Qualifiers: Encounter type: initial encounter Qualified Code(s): W19.XXXA - Unspecified fall, initial encounter (4) Hematoma of left flank: Anticoagulation on hold. Recheck hemoglobin. Does appear to have acute hemoglobin declined with acute on chronic anemia down to 8.4. Status: Acute Qualifiers: Encounter type: initial encounter Qualified Code(s): S30.1XXA - Contusion of abdominal wall, initial encounter (5) Chronic anticoagulation: With Eliquis, on hold Status: Chronic (6) TIFFANY (acute kidney injury): In a patient with chronic kidney disease stage III-IV Renal function appears stated, creatinine stabilized at 2.6. Still orthostatic. Not hypotensive while sitting. Additional fluid challenge as above. Transiently required hemodialysis previously. Status: Acute (7) Elevated troponin: In a patient with a history of coronary artery disease, current troponin levels are downtrending from peak values over 1300 in November Status: Acute (8) Atrial fibrillation with RVR: In a patient with chronic atrial fibrillation Eliquis on hold for now. Metoprolol Status: Acute (9) Congestive heart failure: Chronic systolic, currently actually may be a bit over diuresed Status: Chronic Qualifiers: Heart failure chronicity: chronic Heart failure type: systolic Qualified Code(s): I50.22 - Chronic systolic (congestive) heart failure (10) Diabetes: Chronically on insulin therapy Status: Chronic Qualifiers: Chronic kidney disease stage: stage 3 (moderate) Chronic kidney disease stage 3 subtype: stage 3b (GFR 30-44) Diabetes mellitus complication detail: with chronic kidney disease Diabetes mellitus complication status: with kidney complications Diabetes mellitus intermediate accountant insulin use: with intermediate accountant use Diabetes mellitus type: type 2 Qualified Code(s): E11.22 - Type 2 diabetes mellitus with diabetic chronic kidney disease; N18.32 - Chronic kidney disease, stage 3b; 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 Growing yeast. Status: Acute (13) Elevated digoxin level: Resolved. Stop digoxin. Status: Acute Attestations Medical Necessity Statement*: Admission of over 2 midnights is needed for close monitoring due to acute blood loss anemia, with flank hematoma while on antiplatelet medication needed due to recent cardiac stent, also anticoagulation which currently is on hold, persistent orthostatic hypotension, additional fluid challenge, initiation of midodrine due to risk of fall, with sustained fall prior to admission, with also underlying CHF and chronic kidney disease with decreased urine output in a morbidly obese lady with chronic leg edema. Coding Level of Care Code Acute Cage Tender for Chg Fwd Diagnoses Anemia D64.9 Anemia type: unspecified type Weakness R53.1 Fall W19.XXXA Encounter type: initial encounter Hematoma of left flank S30.1XXA Encounter type: initial encounter Chronic anticoagulation Z79.01 TIFFANY (acute kidney injury) N17.9 Elevated troponin R77.8 Atrial fibrillation with RVR I48.91 Congestive heart failure I50.22 Heart failure chronicity: chronic Heart failure type: systolic Diabetes E11.22; N18.32; Z79.4 Chronic kidney disease stage: stage 3 (moderate) Chronic kidney disease stage 3 subtype: stage 3b (GFR 30-44) Diabetes mellitus complication detail: with chronic kidney disease Diabetes mellitus complication status: with kidney complications Diabetes mellitus snf insulin use: with intermediate accountant use Diabetes mellitus type: type 2 Morbid obesity E66.01 UTI (urinary tract infection) N39.0 Elevated digoxin level R78.89
[2021-01-18] MEDS: cefTRIAXone 1,000 MG in sodium chloride 0.9% (plus) 50 ML 100 MG IV (14:18)
[2021-01-18] MEDS: midodrine 5 mg TABLET PO ×2 (14:19→20:52)
[2021-01-18 16:31] LABS: Glucose Point of Care 134 mg/dL (70-110)
[2021-01-18] MEDS: fluconazole 100 mg Tablet PO (17:33)
[2021-01-18 18:22] LABS: Basophils % 0.6 %; Eosinophils # 0.5 10^3/uL (0.0-0.8); Hematocrit 25.6 % (37.0-47.0); Hemoglobin 7.9 g/dL (11.5-15.3); Lymphocytes # 1.7 10^3/uL (0.8-4.8); Lymphocytes % 26.2 %; Mean Corpuscular HGB Conc 30.9 g/dL (30.0-36.0); Mean Corpuscular Hemoglobin 32.4 pg (28.0-34.0); Mean Corpuscular Volume 104.9 fL (81-99); Mean Platelet Volume 11.3 fL (7.4-10.4); Monocytes % 14.5 %; Neutrophils # 3.29 10^3/uL (1.8-7.7); Neutrophils % 49.6 %; Nucleated Red Blood Cells % 0 %; Platelet Count 181 10^3/cmm (130-400); Red Blood Count 2.44 10^6/uL (4.1-5.3); Red Cell Distribution Width 14.1 % (12.1-15.1); White Blood Count 6.6 10^3/uL (4.0-10.0)
[2021-01-18 20:18] LABS: Glucose Point of Care 143 mg/dL (70-110)
[2021-01-19] VITALS (15 sets, daily range): BP systolic 84–182; BP diastolic 41–72; PULSE 64–98; RESP 14–20; TEMP 36.1–36.9; O2SAT 91–96
[2021-01-19] MEDS: bisacodyl 5 mg Tablet 10 MG PO (04:51)
[2021-01-19] MEDS: levothyroxine 200 mcg Tablet PO (04:51)
[2021-01-19] MEDS: pantoprazole DR 40 mg Tablet PO (04:51)
[2021-01-19 05:11] LABS: Basophils # 0.1 10^3/uL (0.0-0.1); Basophils % 0.8 %; Eosinophils # 0.6 10^3/uL (0.0-0.8); Eosinophils % 8.5 %; Hematocrit 24.3 % (37.0-47.0); Hemoglobin 7.6 g/dL (11.5-15.3); Lymphocytes # 1.6 10^3/uL (0.8-4.8); Lymphocytes % 24.6 %; Mean Corpuscular HGB Conc 31.3 g/dL (30.0-36.0); Mean Corpuscular Hemoglobin 32.1 pg (28.0-34.0); Mean Corpuscular Volume 102.5 fL (81-99); Mean Platelet Volume 11.5 fL (7.4-10.4); Monocytes # 0.9 10^3/uL (0.2-0.9); Monocytes % 13.3 %; Neutrophils # 3.45 10^3/uL (1.8-7.7); Nucleated Red Blood Cells % 0 %; Platelet Count 185 10^3/cmm (130-400); Red Blood Count 2.37 10^6/uL (4.1-5.3); Red Cell Distribution Width 13.9 % (12.1-15.1); White Blood Count 6.6 10^3/uL (4.0-10.0)
[2021-01-19 05:31] LABS: Alanine Aminotransferase 7 U/L (0-33); Albumin Level 2.5 g/dL (3.5-5.2); Alkaline Phosphatase 135 IU/L (35-105); Anion Gap 14.7 (5-19); Aspartate Amino Transferase 17 U/L (0-32); Blood Urea Nitrogen 50 mg/dL (8-23); Calcium 6.3 mg/dL (8.5-10.5); Carbon Dioxide 27 mmol/L (22-29); Chloride 99 mmol/L (98-107); Globulin 2.9 g/dL (1.3-4.6); Glucose 204 mg/dL (65-115); Osmolality Calculated 303 mOsm/kg (285-295); Potassium 3.7 mmol/L (3.5-5.1); Sodium 137 mmol/L (136-145); Total Bilirubin 0.3 mg/dL (0.15-1.2); Total Protein 5.4 g/dL (6.6-8.7)
[2021-01-19 06:45] LABS: Glucose Point of Care 213 mg/dL (70-110)
[2021-01-19] MEDS: metoprolol succinate ER (24 HR) 25 mg Tablet 12.5 MG PO (08:13)
[2021-01-19] MEDS: gabapentin 100 mg Capsule PO ×2 (08:14→18:56)
[2021-01-19] MEDS: midodrine 5 mg TABLET PO ×3 (08:14→20:32)
[2021-01-19] MEDS: phenytoin ER 100 mg Capsule 200 MG PO ×2 (08:14→18:56)
[2021-01-19] MEDS: clopidogrel 75 mg Tablet PO (08:14)
[2021-01-19] MEDS: docusate sodium 100 mg Capsule PO (08:14)
[2021-01-19] MEDS: insulin glargine 100 units/1 mL 5 UNIT SUBCUT (08:15)
[2021-01-19 12:11] LABS: Glucose Point of Care 179 mg/dL (70-110)
--- NOTE | 2021-01-19 13:46 | PC.CHAP ---
Pastoral Care Encounter/Spiritual Assessment Type of Contact [] Declined electronic systems security assessment visit [] Patient/Family/Request visit [] Outpatient visit [xx] Follow-up visit [] Physician referral [] Code/Alert [xx] Routine visit [] Staff referral [] Actively dying [] Patient sleeping [] Family support [] [] Out of room [] Palliative care [] [] Receiving care in room [] Pre-surgical visit [] Trauma [xx] Long length of stay [] ICU visit [] Other: Relational/Emotional Strength [xx] Patient feels connected with others/family/visitors/staff [] Distress [] Loneliness/isolation [] Abandonment Spirituality of Patient [xx] Person of Jennifer [] Attends Nondenominational of their Jennifer [xx] Believes in Prayer [xx] Reads Bible or Temple materials [] There are Spiritual issues to be addressed Street Engineer Interventions [xx] Prayer [xx] Active listening [xx] Non-anxious presence [] Spiritual/emotional support [] Crisis/trauma care [] Spiritual counseling [] Bereavement support [] Provided bereavement packet [] Provided Bible/devotional materials [] Provided toy/stuffed animal, coloring book to patient or family member [] Provided Communion [] Anointing/[place] [] Salvation [xx] Completed spiritual assessment [] Other: Impact on Illness or Injury [] Angry [] Fearful [] Anxious [] Often cries [] Exhaustion [] Unable to work [] Unable to attend anabaptism [] Unable to walk/stand [] Unable to read [] Unable to drive [] Unable to eat/drink [] Unable to sleep [] Unable to be with family [] Patient intubated [] Other: Summary Patient pleasant and believes God still has plans for her life. She feels better and believes she might be discharged later today. Time spent with patient 6 minutes
[2021-01-19] MEDS: sodium chloride 0.9% (100 ml) 100 ML (16:38)
[2021-01-19] MEDS: cefTRIAXone 1,000 MG in sodium chloride 0.9% (plus) 50 ML 100 MG IV (16:38)
[2021-01-19 17:02] LABS: Glucose Point of Care 189 mg/dL (70-110)
[2021-01-19] MEDS: fluconazole 100 mg Tablet PO (18:56)
--- NOTE | 2021-01-19 19:22 | PC.NURSE ---
Transfusion ended at 1809. Unable to edit on TAR.
[2021-01-19 20:26] LABS: Glucose Point of Care 231 mg/dL (70-110)
--- NOTE | 2021-01-19 21:21 | PM.PN ---
Subjective Subjective: Interval history: Still significantly orthostatic today. Left flank pain upon sitting down, resolved with some rest. No chest pain. Not short of breath at rest. Poor tolerance of standing up or mobility. Vitals/I&O/Wt Last Vital Signs Temp 98.4 F 01/19/21 19:01 Pulse 85 01/19/21 19:01 Resp 19 H 01/19/21 19:01 BP 145/62 01/19/21 19:01 Pulse Ox 92 01/19/21 19:01 01/19/21 01/19/21 01/19/21 06:59 14:59 22:59 Intake Total 360 / 360 500 / 860 Output Total 350 / 900 700 / 700 Balance -350 / -30 360 / 360 -200 / 160 Weight last 48 hrs Weight 150.547 kg Weight 150.593 kg Physical Exam Const: COMMON NORMALS: no acute distress and patient oriented x3 NUTRITIONAL APPEARANCE: obese HENMT: COMMON NORMALS: oropharynx normal Neck/C-Spine: COMMON NORMALS: no JVD Resp: COMMON NORMALS: normal respiratory effort and clear to auscultation bilaterally AUSCULTATION: clear to auscultation bilaterally Cardio: COMMON NORMALS: no JVD, regular rhythm, S1 normal heart sound present, S2 normal heart sound present and No murmurs present (Cardio) RHYTHM: regular rhythm HEART SOUNDS: S1 normal heart sound present and S2 normal heart sound present GI: COMMON NORMALS: Normal to inspection, nondistended, normoactive bowel sounds present, Soft to palpation and non-tender PALPATION: Yes Soft to palpation Extremity: COMMON NORMALS: no joint enlargement GENERAL: Yes edema (2+ BL LE) Neuro: COMMON NORMALS: patient oriented x3 and moves all extremities Skin: COMMON NORMALS: no rashes or lesions noted GENERAL SKIN EXAM: no rashes or lesions noted Urinary Catheter Management^: Acevedo: Cath Placed During This Visit: yes Reason for Continuing Indwelling Catheter: Accurate Measurement of Urinary Output in Critically Ill Patients Urinary Catheter Date of Insertion: 01/16/21 Urinary Catheter Time of Insertion: 23:42 Data : 01/19/21 04:40 01/19/21 04:40 A&P Assessment and plan (1) Anemia: Blood count decreased but stabilized around 7.6. Discussed with her regarding risks and benefits of 1 unit PBC transfusion due to persistent significant orthostatic hypotension, poor tolerance of standing up, symptomatic anemia. She is agreeable to proceed. Given significant orthostasis, symptomatic anemia, flank hematoma while requiring to continue antiplatelet medication, continue monitoring in the hospital. Reassess blood count. Additional decrease in hemoglobin down to 7.7. Continue to hold anticoagulation. She had just had a stent placed in November. For now discussed with her options with discontinuation of Plavix tomorrow, this would elevate her risk of stent complication. She is agreeing to continue with Plavix at this time while holding anticoagulation. Recheck hemoglobin. Requires additional adjustment of medications, close monitoring in the hospital with acute blood loss anemia in the setting of antiplatelet use, need for anticoagulation. Suspect has some degree of anemia of chronic kidney disease but current concern is for acute blood loss anemia given extent of hematoma Recheck hemoglobin. Hold anticoagulation. Status: Chronic Qualifiers: Anemia type: unspecified type Qualified Code(s): D64.9 - Anemia, unspecified (2) Weakness: Again quite significant orthostatic hypotension, decreased from 133 systolic to 84 systolic. 1 unit PBC transfusion as above. Monitor for signs of volume overload. Recheck hemoglobin. Increase midodrine dose to 10 mg. Multifactorial orthostatic hypotension secondary to dehydration, overdiuresis, acute blood loss anemia. Check Dilantin level. Treat UTI. Supratherapeutic digoxin level resolved. PT, OT. Given difficulties with rising, mobility, fall resulting in hematoma, in the setting of morbid obesity, multiple comorbidities, she would benefit from rehabilitation at SNF, she states will consider this option. Discussed with discharge planning. Status: Acute (3) Fall: Walking up a ramp at apartment Status: Acute Qualifiers: Encounter type: initial encounter Qualified Code(s): W19.XXXA - Unspecified fall, initial encounter (4) Hematoma of left flank: Anticoagulation on hold. Acute anemia as above. Status: Acute Qualifiers: Encounter type: initial encounter Qualified Code(s): S30.1XXA - Contusion of abdominal wall, initial encounter (5) Chronic anticoagulation: With Eliquis, on hold Status: Chronic (6) TIFFANY (acute kidney injury): In a patient with chronic kidney disease stage III-IV Renal function appears stated, creatinine stabilized at 2.4. Still orthostatic. Not hypotensive while sitting. Transiently required hemodialysis previously. Status: Acute (7) Elevated troponin: In a patient with a history of coronary artery disease, current troponin levels are downtrending from peak values over 1300 in November Status: Acute (8) Atrial fibrillation with RVR: In a patient with chronic atrial fibrillation Eliquis on hold for now. Metoprolol Status: Acute (9) Congestive heart failure: Chronic systolic, currently actually may be a bit over diuresed Status: Chronic Qualifiers: Heart failure chronicity: chronic Heart failure type: systolic Qualified Code(s): I50.22 - Chronic systolic (congestive) heart failure (10) Diabetes: Chronically on insulin therapy Status: Chronic Qualifiers: Chronic kidney disease stage: stage 3 (moderate) Chronic kidney disease stage 3 subtype: stage 3b (GFR 30-44) Diabetes mellitus complication detail: with chronic kidney disease Diabetes mellitus complication status: with kidney complications Diabetes mellitus intermediate card tender insulin use: with mcfp use Diabetes mellitus type: type 2 Qualified Code(s): E11.22 - Type 2 diabetes mellitus with diabetic chronic kidney disease; N18.32 - Chronic kidney disease, stage 3b; Z79.4 - correction (current) use of insulin (11) Morbid obesity: Status: Chronic (12) UTI (urinary tract infection): Rocephin, renally dosed Diflucan. Growing yeast. Status: Acute (13) Elevated digoxin level: Resolved. Stop digoxin. Status: Acute Attestations Medical Necessity Statement*: Continue admission for assessment management of symptomatic anemia, setting of left flank hematoma, while requiring to continue antiplatelet medication, significant orthostatic hypotension so far not responding to midodrine. 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 [facility] Fwd Diagnoses Anemia D64.9 Anemia type: unspecified type Weakness R53.1 Fall W19.XXXA Encounter type: initial encounter Hematoma of left flank S30.1XXA Encounter type: initial encounter Chronic anticoagulation Z79.01 TIFFANY (acute kidney injury) N17.9 Elevated troponin R77.8 Atrial fibrillation with RVR I48.91 Congestive heart failure I50.22 Heart failure chronicity: chronic Heart failure type: systolic Diabetes E11.22; N18.32; Z79.4 Chronic kidney disease stage: stage 3 (moderate) Chronic kidney disease stage 3 subtype: stage 3b (GFR 30-44) Diabetes mellitus complication detail: with chronic kidney disease Diabetes mellitus complication status: with kidney complications Diabetes mellitus intermediate card tender insulin use: with intermediate card tender use Diabetes mellitus type: type 2 Morbid obesity E66.01 UTI (urinary tract infection) N39.0 Elevated digoxin level R78.89
[2021-01-19 23:25] LABS: Phenytoin Dilantin 12.9 ug/mL (10-20)
[2021-01-20] VITALS (11 sets, daily range): BP systolic 117–157; BP diastolic 37–100; PULSE 74–104; RESP 14–20; TEMP 36.4–36.8; O2SAT 91–97
[2021-01-20] MEDS: pantoprazole DR 40 mg Tablet PO (05:18)
[2021-01-20] MEDS: levothyroxine 200 mcg Tablet PO (05:18)
--- NOTE | 2021-01-20 05:22 | PC.NURSE ---
No overnight events. Patient has no complaints. Will monitor.
[2021-01-20 05:26] LABS: Basophils % 0.6 %; Eosinophils # 0.6 10^3/uL (0.0-0.8); Eosinophils % 9.2 %; Hematocrit 27.9 % (37.0-47.0); Hemoglobin 8.9 g/dL (11.5-15.3); Lymphocytes # 1.9 10^3/uL (0.8-4.8); Lymphocytes % 26.6 %; Mean Corpuscular HGB Conc 31.9 g/dL (30.0-36.0); Mean Corpuscular Hemoglobin 32.6 pg (28.0-34.0); Mean Corpuscular Volume 102.2 fL (81-99); Mean Platelet Volume 10.8 fL (7.4-10.4); Monocytes # 1.1 10^3/uL (0.2-0.9); Monocytes % 15.6 %; Neutrophils % 47.3 %; Nucleated Red Blood Cells % 0.3 %; Platelet Count 210 10^3/cmm (130-400); Red Blood Count 2.73 10^6/uL (4.1-5.3); Red Cell Distribution Width 14.5 % (12.1-15.1)
[2021-01-20 05:37] LABS: Alanine Aminotransferase 7 U/L (0-33); Albumin Level 2.6 g/dL (3.5-5.2); Alkaline Phosphatase 126 IU/L (35-105); Anion Gap 13.7 (5-19); Aspartate Amino Transferase 15 U/L (0-32); Blood Urea Nitrogen 46 mg/dL (8-23); Calcium 6.7 mg/dL (8.5-10.5); Carbon Dioxide 28 mmol/L (22-29); Chloride 100 mmol/L (98-107); Glucose 112 mg/dL (65-115); Osmolality Calculated 299 mOsm/kg (285-295); Potassium 3.7 mmol/L (3.5-5.1); Sodium 138 mmol/L (136-145); Total Bilirubin 0.4 mg/dL (0.15-1.2); Total Protein 5.6 g/dL (6.6-8.7)
--- NOTE | 2021-01-20 05:57 | PC.NURSE ---
Patient is currently c/o back pain. Patient repositioned in bed. Patient is refusing pain medications at this time. No changes to bruised areas. Will monitor.
[2021-01-20 06:39] LABS: Glucose Point of Care 129 mg/dL (70-110)
[2021-01-20] MEDS: midodrine 5 mg TABLET 10 MG PO ×3 (09:18→20:00)
[2021-01-20] MEDS: phenytoin ER 100 mg Capsule 200 MG PO ×2 (09:19→17:49)
[2021-01-20] MEDS: metoprolol succinate ER (24 HR) 25 mg Tablet 12.5 MG PO (09:19)
[2021-01-20] MEDS: docusate sodium 100 mg Capsule PO ×2 (09:19→17:49)
[2021-01-20] MEDS: clopidogrel 75 mg Tablet PO (09:19)
[2021-01-20] MEDS: gabapentin 100 mg Capsule PO ×2 (09:19→17:49)
[2021-01-20] MEDS: insulin glargine 100 units/1 mL 5 UNIT SUBCUT (09:20)
[2021-01-20 11:39] LABS: Glucose Point of Care 192 mg/dL (70-110)
[2021-01-20] MEDS: cefTRIAXone 1,000 MG in sodium chloride 0.9% (plus) 50 ML 100 MG IV (16:14)
[2021-01-20 16:47] LABS: Glucose Point of Care 161 mg/dL (70-110)
[2021-01-20] MEDS: fluconazole 100 mg Tablet PO (17:49)
--- NOTE | 2021-01-20 19:15 | PM.PN ---
Subjective Subjective: Interval history: She is feeling better today after the transfusion. Still noted significantly orthostatic on reassessment of orthostatics this afternoon. Did not feel comfortable returning home. Has not been mobile. Pain a little bit better in the left flank, very large bruise there. Vitals/I&O/Wt Last Vital Signs Temp 98.2 F 01/20/21 18:55 Pulse 77 01/20/21 18:55 Resp 17 01/20/21 18:55 BP 124/47 01/20/21 18:55 Pulse Ox 95 01/20/21 18:55 01/20/21 01/20/21 01/20/21 06:59 14:59 22:59 Intake Total 50 / 960 745 / 745 50 / 795 Output Total 375 / 1075 630 / 630 Balance -325 / -115 745 / 745 -580 / 165 Weight last 48 hrs Weight 151.591 kg Weight 150.547 kg Physical Exam Const: COMMON NORMALS: no acute distress and patient oriented x3 NUTRITIONAL APPEARANCE: obese HENMT: COMMON NORMALS: oropharynx normal Neck/C-Spine: COMMON NORMALS: no JVD Resp: COMMON NORMALS: normal respiratory effort and clear to auscultation bilaterally AUSCULTATION: clear to auscultation bilaterally Cardio: COMMON NORMALS: no JVD, regular rhythm, S1 normal heart sound present, S2 normal heart sound present and No murmurs present (Cardio) RHYTHM: regular rhythm HEART SOUNDS: S1 normal heart sound present and S2 normal heart sound present GI: COMMON NORMALS: Normal to inspection, nondistended, normoactive bowel sounds present, Soft to palpation and non-tender PALPATION: Yes Soft to palpation Extremity: COMMON NORMALS: no joint enlargement GENERAL: Yes edema (2+ BL LE) Neuro: COMMON NORMALS: patient oriented x3 and moves all extremities Skin: COMMON NORMALS: no rashes or lesions noted GENERAL SKIN EXAM: no rashes or lesions noted Urinary Catheter Management^: Acevedo: Cath Placed During This Visit: yes Reason for Continuing Indwelling Catheter: Other Urinary Catheter Date of Insertion: 01/16/21 Urinary Catheter Time of Insertion: 23:42 Data : 01/20/21 05:00 01/20/21 05:00 Micro: Microbiology 01/16/21 23:40 Urine Culture - Final Urine,Clean Catch Olinda albicans A&P Assessment and plan (1) Anemia: Hemoglobin appears responded well to PRBC transfusion, with rise today up to 8.9. Subjectively she is feeling better, although not yet back to her baseline, and today still noted orthostatic down to 82/45 on standing from 130/67. Heart rate up from 77-1 09. Large bruise on the left flank. Pain is better. We further monitor and will recheck again hemoglobin given she is on platelets. Still orthostatic. Discussed with her continuing to hold anticoagulation given the symptomatic anemia.Hemoglobin on 01/06 was 11.1. Suspect has some degree of anemia of chronic kidney disease but current concern is for acute blood loss anemia given extent of hematoma Status: Chronic Qualifiers: Anemia type: unspecified type Qualified Code(s): D64.9 - Anemia, unspecified (2) Weakness: Orthostatics briefly better this morning, but subsequently again quite significant as documented above. Midodrine dose was increased to 10 mg 3 times daily starting this morning, continue, reassess orthostatics in the morning. As she was feeling better today initially consideration was to return home, however, with persistent orthostatics, and she really has not been active here, consideration may need to be given to [facility] prior to return home. With thoughts about returning home she is requesting for a wheelchair. Discussed again with discharge planning. Multifactorial orthostatic hypotension secondary to dehydration, overdiuresis, acute blood loss anemia. Therapeutic Dilantin level. Treat UTI. Supratherapeutic digoxin level resolved. Status: Acute (3) Fall: Walking up a ramp at apartment Status: Acute Qualifiers: Encounter type: initial encounter Qualified Code(s): W19.XXXA - Unspecified fall, initial encounter (4) Hematoma of left flank: Anticoagulation on hold. Acute anemia as above. Status: Acute Qualifiers: Encounter type: initial encounter Qualified Code(s): S30.1XXA - Contusion of abdominal wall, initial encounter (5) Chronic anticoagulation: With Eliquis, on hold Status: Chronic (6) TIFFANY (acute kidney injury): In a patient with chronic kidney disease stage III-IV Renal function appears stated, creatinine stabilized at 2.4. Still orthostatic. Transiently required hemodialysis previously. Status: Acute (7) Elevated troponin: In a patient with a history of coronary artery disease, current troponin levels are downtrending from peak values over 1300 in November Status: Acute (8) Atrial fibrillation with RVR: In a patient with chronic atrial fibrillation Eliquis on hold for now. Metoprolol Status: Acute (9) Congestive heart failure: EF 35-40%. Mild MR. No significant aortic stenosis. So far not in exacerbation, although diuretics have been held due to hypotension on presentation. Status: Chronic Qualifiers: Heart failure chronicity: chronic Heart failure type: systolic Qualified Code(s): I50.22 - Chronic systolic (congestive) heart failure (10) Diabetes: Chronically on insulin therapy Status: Chronic Qualifiers: Chronic kidney disease stage: stage 3 (moderate) Chronic kidney disease stage 3 subtype: stage 3b (GFR 30-44) Diabetes mellitus complication detail: with chronic kidney disease Diabetes mellitus complication status: with kidney complications Diabetes mellitus extermination inspector insulin use: with extermination inspector use Diabetes mellitus type: type 2 Qualified Code(s): E11.22 - Type 2 diabetes mellitus with diabetic chronic kidney disease; N18.32 - Chronic kidney disease, stage 3b; Z79.4 - bed bug exterminator (current) use of insulin (11) Morbid obesity: Status: Chronic (12) UTI (urinary tract infection): Rocephin, renally dosed Diflucan. Growing yeast. Status: Acute (13) Elevated digoxin level: Resolved. Stop digoxin. Status: Acute Attestations Medical Necessity Statement*: Continue admission for assessment and management of persistent orthostatic hypotension in the setting of congestive heart failure, acute symptomatic anemia with left leg hematoma after fall while on antiplatelet medication, additional monitoring of hemoglobin while withholding anticoagulation monitoring of volume status while off Lasix, optimization of midodrine therapy, mobilization, disposition planning and arrangements. 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 [facility] Fwd Diagnoses Anemia D64.9 Anemia type: unspecified type Weakness R53.1 Fall W19.XXXA Encounter type: initial encounter Hematoma of left flank S30.1XXA Encounter type: initial encounter Chronic anticoagulation Z79.01 TIFFANY (acute kidney injury) N17.9 Elevated troponin R77.8 Atrial fibrillation with RVR I48.91 Congestive heart failure I50.22 Heart failure chronicity: chronic Heart failure type: systolic Diabetes E11.22; N18.32; Z79.4 Chronic kidney disease stage: stage 3 (moderate) Chronic kidney disease stage 3 subtype: stage 3b (GFR 30-44) Diabetes mellitus complication detail: with chronic kidney disease Diabetes mellitus complication status: with kidney complications Diabetes mellitus extermination inspector insulin use: with residential use Diabetes mellitus type: type 2 Morbid obesity E66.01 UTI (urinary tract infection) N39.0 Elevated digoxin level R78.89
--- NOTE | 2021-01-20 19:28 | PC.NURSE ---
Patient refusing pain medication.
[2021-01-20 20:02] LABS: Glucose Point of Care 128 mg/dL (70-110)
[2021-01-21] VITALS (10 sets, daily range): BP systolic 111–143; BP diastolic 58–72; PULSE 74–94; RESP 13–18; TEMP 36.4–37; O2SAT 90–94
--- NOTE | 2021-01-21 01:33 | PC.NURSE ---
Patient refuses to use bedside commode. Patient requests bedpan.
[2021-01-21] MEDS: levothyroxine 200 mcg Tablet PO (04:14)
[2021-01-21] MEDS: pantoprazole DR 40 mg Tablet PO (04:14)
[2021-01-21 05:02] LABS: Basophils # 0.1 10^3/uL (0.0-0.1); Basophils % 0.7 %; Eosinophils # 0.6 10^3/uL (0.0-0.8); Eosinophils % 9.1 %; Hematocrit 30.4 % (37.0-47.0); Hemoglobin 9.4 g/dL (11.5-15.3); Lymphocytes # 1.6 10^3/uL (0.8-4.8); Lymphocytes % 24.2 %; Mean Corpuscular HGB Conc 30.9 g/dL (30.0-36.0); Mean Corpuscular Hemoglobin 31.9 pg (28.0-34.0); Mean Corpuscular Volume 103.1 fL (81-99); Mean Platelet Volume 10.5 fL (7.4-10.4); Monocytes # 1.1 10^3/uL (0.2-0.9); Monocytes % 16.3 %; Neutrophils % 49.1 %; Nucleated Red Blood Cells % 0 %; Platelet Count 247 10^3/cmm (130-400); Red Blood Count 2.95 10^6/uL (4.1-5.3); Red Cell Distribution Width 14.6 % (12.1-15.1); White Blood Count 6.7 10^3/uL (4.0-10.0)
[2021-01-21 05:19] LABS: Alanine Aminotransferase < 5 U/L (0-33); Albumin Level 2.6 g/dL (3.5-5.2); Alkaline Phosphatase 125 IU/L (35-105); Anion Gap 15.9 (5-19); Aspartate Amino Transferase 15 U/L (0-32); Blood Urea Nitrogen 46 mg/dL (8-23); Calcium 6.8 mg/dL (8.5-10.5); Carbon Dioxide 27 mmol/L (22-29); Chloride 100 mmol/L (98-107); Glucose 120 mg/dL (65-115); Osmolality Calculated 301 mOsm/kg (285-295); Potassium 3.9 mmol/L (3.5-5.1); Sodium 139 mmol/L (136-145); Total Bilirubin 0.4 mg/dL (0.15-1.2); Total Protein 5.6 g/dL (6.6-8.7)
[2021-01-21 06:34] LABS: Glucose Point of Care 139 mg/dL (70-110)
[2021-01-21] MEDS: gabapentin 100 mg Capsule PO (09:53)
[2021-01-21] MEDS: metoprolol succinate ER (24 HR) 25 mg Tablet 12.5 MG PO (09:53)
[2021-01-21] MEDS: phenytoin ER 100 mg Capsule 200 MG PO ×2 (09:53→17:23)
[2021-01-21] MEDS: docusate sodium 100 mg Capsule PO ×2 (09:54→17:22)
[2021-01-21] MEDS: clopidogrel 75 mg Tablet PO (09:54)
[2021-01-21] MEDS: midodrine 5 mg TABLET 10 MG PO ×2 (09:54→17:22)
[2021-01-21] MEDS: insulin glargine 100 units/1 mL 5 UNIT SUBCUT (09:54)
[2021-01-21 11:33] LABS: Glucose Point of Care 203 mg/dL (70-110)
--- NOTE | 2021-01-21 12:53 | USCV_ITS ---
Carole Lee Age: 75 Gender: F : 1945 Exam Date: 01/21/2021 13:52 Ordering Phys: Woody Boykin MD Technologist: MIGUEL ANGEL Exam Location: [facility] [place] Indication: Assess for RWMA, worsening EF - significant orthostasis BP: 111 / 58 HR: 96 Rhythm: Sinus Technical Quality: Fair MEASUREMENTS (Male / Female) Normal Values 2D ECHO LV Diastolic Diameter PLAX 5.3 cm 4.2 - 5.9 / 3.9 - 5.3 cm LV Systolic Diameter PLAX 4.1 cm IVS Diastolic Thickness 1.0 cm 0.6 - 1.0 / 0.6 - 0.9 cm IVS Systolic Thickness 1.2 cm LVPW Diastolic Thickness 1.0 cm 0.6 - 1.0 / 0.6 - 0.9 cm LVPW Systolic Thickness 1.0 cm LV Ejection Fraction 2D Teich 43.2 % LV Ejection Fraction MOD 2C 45.9 % LV Ejection Fraction 2C AL 44.4 % M-MODE LV Diastolic Diameter MM 6.6 cm 4.2 - 5.9 / 3.9 - 5.3 cm LV Systolic Diameter MM 5.5 cm LV Ejection Fraction MM Teich 34.5 % IVS Diastolic Thickness MM 1.4 cm 0.6 - 1.0 / 0.6 - 0.9 cm IVS Systolic Thickness MM 1.2 cm LVPW Diastolic Thickness MM 1.5 cm 0.6 - 1.0 / 0.6 - 0.9 cm LVPW Systolic Thickness MM 1.9 cm FINDINGS Left Ventricle Right Ventricle Right Atrium Left Atrium Mitral Valve Aortic Valve Tricuspid Valve Pulmonic Valve Pericardium Aorta CONCLUSIONS This is a limited echocardiogram to assess LV function. Technically difficult study with poor ultrasonic windows. LV systolic function is moderately reduced with EF of 35-40%. Regional wall motion abnormalities can not be assessed because of poor visualization Compared to prior echocardiogram from 11/2020, no significant changes are noted Ramon Garcia MD (Electronically Signed) Final Date: 21 January 2021 17:01 S
[2021-01-21] MEDS: cefTRIAXone 1,000 MG in sodium chloride 0.9% (plus) 50 ML 100 MG IV (17:20)
[2021-01-21] MEDS: fluconazole 100 mg Tablet PO (17:22)
[2021-01-21 18:05] LABS: Glucose Point of Care 169 mg/dL (70-110)
--- NOTE | 2021-01-21 22:04 | P.PN_ITS ---
Subjective Subjective: Interval history: Getting dizzy with standing up. Blood count has stated. Is not short of breath at rest. Not orthopneic. Leg swelling has not worsened. Discussed with her that midodrine appears does not work for her as she is still orthostatic on reassessment today. Discussed with her risks and benefits of initiation of fludrocortisone instead. After consideration she is agreeable for trial starting with lower dosing. Monitor volume status with initiation. We t hen also discussed options regarding proceeding with [facility]dc facility after discharge given she is quite significantly orthostatic and has not been very active, however, she states that she has almost 24-hour support at home as well to have someone on standby with her, and feels she would be actually more active there where she is more comfortable. Vitals/I&O/Wt Last Vital Signs Temp 98 F 01/21/21 20:00 Pulse 74 01/21/21 20:00 Resp 13 01/21/21 20:00 BP 143/58 01/21/21 20:00 Pulse Ox 91 01/21/21 20:00 01/21/21 01/21/21 01/21/21 06:59 14:59 22:59 Intake Total 600 / 600 50.000 / 650.000 Output Total 525 / 1155 300 / 300 Balance -525 / -60 300 / 300 50.000 / 350.000 Weight last 48 hrs Weight 151.228 kg Weight 151.591 kg Physical Exam Const: COMMON NORMALS: no acute distress, patient oriented x3 and alert G ENERAL APPEARANCE: comfortable NUTRITIONAL APPEARANCE: obese ORIENTATION/CONSCIOUSNESS: Yes awake HENMT: COMMON NORMALS: oropharynx normal Neck/C-Spine: COMMON NORMALS: no JVD Resp: COMMON NORMALS: normal respiratory effort and clear to auscultation bilaterally AUSCULTATION: clear to auscultation bilaterally Cardio: COMMON NORMALS: no JVD, regular rhythm, S1 normal heart sound present, S2 normal heart sound present and No murmurs present (Cardio) RHYTHM: regular rhythm HEART SOUNDS: S1 normal heart sound present and S2 normal heart sound present GI: COMMON NORMALS: Normal to inspection, nondistended, normoactive bowel sounds present, Soft to palpation and non-tender PALPATION: Yes Soft to palpation Extremity: COMMON NORMALS: no joint enlargement GENERAL: Yes edema (1+ BL LE) Neuro: COMMON NORMALS: patient oriented x3 and moves all extremities SENSORIUM/ORIENTATION: Yes alert Skin: COMMON NORMALS: no rashes or lesions noted GENERAL SKIN EXAM: no rashes or lesions noted Urinary Catheter Management^: Acevedo: Cath Placed During This Visit: yes Reason for Continuing Indwelling Catheter: Accurate Measurement of Urinary Outpu t in Critically Ill Patients Urinary Catheter Date of Insertion: 01/16/21 Urinary Catheter Time of Insertion: 23:42 Data : 01/21/21 04:40 01/21/21 04:40 A&P Assessment and plan (1) Weakness: Still orthostatic today despite 10 mg 3 times daily of midodrine. As per discussion with her she would like to try fludrocortisone, will start at 0.1 mg 3 times weekly. Given her lightheadedness when standing up, orthostatic hypotension, discussed with her and encouraged to go to skilled nurse facility for additional rehabilitation, however, she states she feels she would be more comfortable going home as she has almost 24-hour support there from family including her son. We will start fludrocortisone tonight, will reassess additionally blood pressure, monitor for fluid overload as discussed with her, diuretics may need to be initiated in case of signs of overload, although would aim for a much less intensive regimen or even just as needed. Urine output has been good on its own, possibly with recovery from recent TIFFANY. She should then be encouraged to continue monitoring blood pressures and orthostatics at home, and maintain close follow-up with primary provider and cardiology for additional assessment work-up and titration of the medication. Also held gabapentin for now. In case of return home she is asking for a wheelchair which she states she would use only to get in and from the house, not at home itself as she is planning to get up and be more active there. Multifactorial orthostatic hypotension secondary to dehydration, overdiuresis on presentation, although has been off diuretics now, received albumin, blood transfusion, acute blood loss anemia which has stabilized with good response to transfusion, hemoglobin increased up to 9.4. Therapeutic Dilantin level. Treat UTI. Supratherapeutic digoxin level resolved. Status: Acute (2) Anemia: Hemoglobin now stable, acute blood loss anemia stabilized while on Plavix. With good response to transfusion. Hemoglobin rising. Anticoagulation has been on hold. If blood counts remain stable, trial of resuming may be attempted in the future. Left flank hematoma after fall. Some degree of anemia of chronic kidney disease. Status: Chronic Qualifiers: Anemia type: unspecified type Qualified Code(s): D64.9 - Anemia, unspecified (3) Fall: Walking up a ramp at apartment. As above. Status: Acute Qualifiers: Encounter type: initial encounter Qualified Code(s): W19.XXXA - Unspecified fall, initial encounter (4) Hematoma of left flank: Anticoagulation on hold. Acute anemia as above. Status: Acute Qualifiers: Encounter type: initial encounter Qualified Code(s): S30.1XXA - Contusion of abdominal wall, initial encounter (5) Chronic anticoagulation: With Eliquis, on hold Status: Chronic (6) TIFFANY (acute kidney injury): In a patient with chronic kidney disease stage III-IV TIFFANY improved. Transiently required hemodialysis previously. Status: Acute (7) Elevated troponin: In a patient with a history of coronary artery disease, current troponin levels are downtrending from peak values over 1300 in November Status: Acute (8) Atrial fibrillation with RVR: In a patient with chronic atrial fibrillation Eliquis on hold for now. Metoprolol Status: Acute (9) Congestive heart failure: EF 35-40%. Mild MR. No significant aortic stenosis. So far not in exacerbation, although diuretics have been held due to hypotension on presentation. Status: Chronic Qualifiers: Heart failure chronicity: chronic Heart failure type: systolic Qualified Code(s): I50.22 - Chronic systolic (congestive) heart failure (10) Diabetes: Chronically on insulin therapy Status: Chronic Qualifiers: Chronic kidney disease stage: stage 3 (moderate) Chronic kidney disease stage 3 subtype: stage 3b (GFR 30-44) Diabetes mellitus complication detail: with chronic kidney disease Diabetes mellitus complication status: with kidney complications Diabetes mellitus long wall mining machine helper insulin use: with senior living use Diabetes mellitus type: type 2 Qualified Code(s): E11.22 - Type 2 diabetes mellitus with diabetic chronic kidney disease; N18.32 - Chronic kidney disease, stage 3b; Z79.4 - buttermaker (current) use of insulin (11) Morbid obesity: Status: Chronic (12) UTI (urinary tract infection): Diflucan. Growing yeast. Completed 5 days with Rocephin. Stopped. Status: Acute (13) Elevated digoxin level: Resolved. Would stop digoxin at discharge due to fluctuating renal functions. Status: Acute Attestations Medical Necessity Statement*: Continue admission for initiation of fludrocort isone for persistent orthostatic hypotension limiting activity, unresponsive to midodrine and persistent despite stabilization of blood counts after fall, left flank hematoma. Disposition planning and arrangements. Coding Level of Care Code Acute Patient Access Coordinator for Chg Fwd Diagnoses Weakness R53.1 Anemia D64.9 Anemia type: unspecified type Fall W19.XXXA Encounter type: initial encounter Hematoma of left flank S30.1XXA Encounter type: initial encounter Chronic anticoagulation Z79.01 TIFFANY (acute kidney injury) N17.9 Elevated troponin R77.8 Atrial fibrillation with RVR I48.91 Congestive heart failure I50.22 Heart failure chronicity: chronic Heart failure type: systolic Diabetes E11.22; N18.32; Z79.4 Chronic kidney disease stage: stage 3 (moderate) Chronic kidney disease stage 3 subtype: stage 3b (GFR 30-44) Diabetes mellitus complication detail: with chronic kidney disease Diabetes mellitus complication status: with kidney complications Diabetes mellitus senior living insulin use: with senior living use Diabetes mellitus type: type 2 Morbid obesity E66.01 UTI (urinary tract infection) N39.0 Elevated digoxin level R78.89
[2021-01-21 22:22] LABS: Glucose Point of Care 128 mg/dL (70-110)
[2021-01-21] MEDS: fludrocortisone 0.1 mg Tablet PO (22:48)
[2021-01-22] VITALS (9 sets, daily range): BP systolic 100–150; BP diastolic 47–79; PULSE 79–118; RESP 15–23; TEMP 36.6–37; O2SAT 90–96
[2021-01-22 04:21] LABS: Basophils % 0.5 %; Eosinophils # 0.6 10^3/uL (0.0-0.8); Eosinophils % 9.4 %; Hematocrit 30.3 % (37.0-47.0); Hemoglobin 9.3 g/dL (11.5-15.3); Lymphocytes # 1.8 10^3/uL (0.8-4.8); Lymphocytes % 27.6 %; Mean Corpuscular HGB Conc 30.7 g/dL (30.0-36.0); Mean Corpuscular Hemoglobin 32.6 pg (28.0-34.0); Mean Corpuscular Volume 106.3 fL (81-99); Mean Platelet Volume 10.4 fL (7.4-10.4); Monocytes # 1.2 10^3/uL (0.2-0.9); Monocytes % 17.5 %; Neutrophils # 2.95 10^3/uL (1.8-7.7); Neutrophils % 44.5 %; Nucleated Red Blood Cells % 0 %; Platelet Count 235 10^3/cmm (130-400); Red Blood Count 2.85 10^6/uL (4.1-5.3); White Blood Count 6.6 10^3/uL (4.0-10.0)
[2021-01-22] MEDS: levothyroxine 200 mcg Tablet PO (04:26)
[2021-01-22] MEDS: pantoprazole DR 40 mg Tablet PO (04:27)
[2021-01-22 04:39] LABS: Alanine Aminotransferase 6 U/L (0-33); Albumin Level 2.6 g/dL (3.5-5.2); Alkaline Phosphatase 129 IU/L (35-105); Anion Gap 15.6 (5-19); Aspartate Amino Transferase 15 U/L (0-32); Blood Urea Nitrogen 38 mg/dL (8-23); Calcium 7.1 mg/dL (8.5-10.5); Carbon Dioxide 27 mmol/L (22-29); Chloride 102 mmol/L (98-107); Globulin 3.1 g/dL (1.3-4.6); Glucose 120 mg/dL (65-115); Osmolality Calculated 300 mOsm/kg (285-295); Potassium 4.6 mmol/L (3.5-5.1); Sodium 140 mmol/L (136-145); Total Bilirubin 0.5 mg/dL (0.15-1.2); Total Protein 5.7 g/dL (6.6-8.7)
[2021-01-22 06:55] LABS: Glucose Point of Care 165 mg/dL (70-110)
[2021-01-22] MEDS: phenytoin ER 100 mg Capsule 200 MG PO ×2 (08:37→18:31)
[2021-01-22] MEDS: metoprolol succinate ER (24 HR) 25 mg Tablet 12.5 MG PO (08:37)
[2021-01-22] MEDS: clopidogrel 75 mg Tablet PO (08:38)
[2021-01-22] MEDS: insulin glargine 100 units/1 mL 5 UNIT SUBCUT (08:40)
[2021-01-22] MEDS: cyanocobalamin 1,000 mcg Tablet 1000 MCG PO (09:41)
[2021-01-22] MEDS: folic acid 1 mg Tablet PO (09:41)
[2021-01-22] MEDS: thiamine 100 mg Tablet PO (09:41)
[2021-01-22 10:58] LABS: Glucose Point of Care 216 mg/dL (70-110)
--- NOTE | 2021-01-22 14:36 | PM.PN ---
Subjective Subjective: Interval history: Feel slightly better. Less dizziness. Has some shortness of breath and weakness Vitals/I&O/Wt Last Vital Signs Temp 98 F 01/22/21 13:19 Pulse 79 01/22/21 13:19 Resp 23 H 01/22/21 13:19 BP 125/73 01/22/21 13:19 Pulse Ox 95 01/22/21 13:19 01/21/21 01/22/21 01/22/21 22:59 06:59 14:59 Intake Total 50.000 / 650.000 250 / 900.000 100 / 100 Output Total 350 / 650 Balance -300.000 / 0 250 / 250.000 100 / 100 Weight last 48 hrs Weight 339 lb 1.6 oz Weight 333 lb 6.4 oz Physical Exam Const: COMMON NORMALS: no acute distress and patient oriented x3 Neck/C-Spine: COMMON NORMALS: no JVD Resp: COMMON NORMALS: normal respiratory effort and No retractions Cardio: COMMON NORMALS: no JVD and regular rate RATE: regular rate GI: COMMON NORMALS: Soft to palpation and non-tender PALPATION: Yes Soft to palpation Neuro: COMMON NORMALS: patient oriented x3 and CN's II-XII intact bilaterally Psych: COMMON NORMALS: mental status grossly normal and Normal thought process present THOUGHT PROCESS: Normal thought process present Urinary Catheter Management^: Acevedo: Cath Placed During This Visit: yes Reason for Continuing Indwelling Catheter: Accurate Measurement of Urinary Output in Critically Ill Patients Urinary Catheter Date of Insertion: 01/16/21 Urinary Catheter Time of Insertion: 23:42 Data : 01/22/21 04:02 01/22/21 04:02 A&P Assessment and plan (1) Weakness: Status: Acute (2) Anemia: Status: Chronic Qualifiers: Anemia type: unspecified type Qualified Code(s): D64.9 - Anemia, unspecified (3) Fall: Status: Acute Qualifiers: Encounter type: initial encounter Qualified Code(s): W19.XXXA - Unspecified fall, initial encounter (4) Chronic anticoagulation: Status: Chronic (5) TIFFANY (acute kidney injury): Status: Acute (6) Congestive heart failure: Status: Chronic Qualifiers: Heart failure chronicity: chronic Heart failure type: systolic Qualified Code(s): I50.22 - Chronic systolic (congestive) heart failure Additional A&P Information #weakness --Feels better but continues to have significant weakness requiring supervision and assistance --Fludrocortisone ordered gabapentin was held #UTI --Stable #left flank hematoma --Stable anticoagulation held #anemia --blood counts stable #afib with rvr --resolved, continue metoprolol #Systolic dysfunction CHF --diuretics held Dispo: will likely need placement Attestations Medical Necessity Statement*: Carole Lee's hospital stay will require greater than 2 midnights for weakness Coding Level of Care Code Acute Associate Professor Of Archaeology for [facility] Fwd Exam Detailed Diagnoses Weakness R53.1 Anemia D64.9 Anemia type: unspecified type Fall W19.XXXA Encounter type: initial encounter Chronic anticoagulation Z79.01 TIFFANY (acute kidney injury) N17.9 Congestive heart failure I50.22 Heart failure chronicity: chronic Heart failure type: systolic
[2021-01-22 17:08] LABS: Glucose Point of Care 105 mg/dL (70-110)
[2021-01-22] MEDS: docusate sodium 100 mg Capsule PO (18:31)
[2021-01-22] MEDS: fluconazole 100 mg Tablet PO (18:31)
[2021-01-22 20:58] LABS: Glucose Point of Care 214 mg/dL (70-110)
[2021-01-23] VITALS (9 sets, daily range): BP systolic 106–132; BP diastolic 59–92; PULSE 102–122; RESP 13–22; TEMP 36.4–36.8; O2SAT 90–94
[2021-01-23] MEDS: levothyroxine 200 mcg Tablet PO (05:00)
[2021-01-23] MEDS: pantoprazole DR 40 mg Tablet PO (05:00)
[2021-01-23 05:19] LABS: Basophils % 0.4 %; Eosinophils # 0.5 10^3/uL (0.0-0.8); Eosinophils % 8.2 %; Hematocrit 30.7 % (37.0-47.0); Hemoglobin 9.2 g/dL (11.5-15.3); Lymphocytes # 1.4 10^3/uL (0.8-4.8); Lymphocytes % 25.6 %; Mean Corpuscular Hemoglobin 31.9 pg (28.0-34.0); Mean Corpuscular Volume 106.6 fL (81-99); Mean Platelet Volume 10.6 fL (7.4-10.4); Monocytes % 17.2 %; Neutrophils % 48.2 %; Nucleated Red Blood Cells % 0 %; Platelet Count 232 10^3/cmm (130-400); Red Blood Count 2.88 10^6/uL (4.1-5.3); Red Cell Distribution Width 14.8 % (12.1-15.1); White Blood Count 5.6 10^3/uL (4.0-10.0)
[2021-01-23 05:42] LABS: Alanine Aminotransferase < 5 U/L (0-33); Albumin Level 2.6 g/dL (3.5-5.2); Alkaline Phosphatase 130 IU/L (35-105); Anion Gap 15.8 (5-19); Aspartate Amino Transferase 17 U/L (0-32); Blood Urea Nitrogen 33 mg/dL (8-23); Calcium 7.3 mg/dL (8.5-10.5); Carbon Dioxide 24 mmol/L (22-29); Chloride 103 mmol/L (98-107); Globulin 3.3 g/dL (1.3-4.6); Glucose 139 mg/dL (65-115); Osmolality Calculated 298 mOsm/kg (285-295); Potassium 3.8 mmol/L (3.5-5.1); Sodium 139 mmol/L (136-145); Total Bilirubin 0.6 mg/dL (0.15-1.2); Total Protein 5.9 g/dL (6.6-8.7)
[2021-01-23 06:34] LABS: Glucose Point of Care 169 mg/dL (70-110)
[2021-01-23] MEDS: cyanocobalamin 1,000 mcg Tablet 1000 MCG PO (08:17)
[2021-01-23] MEDS: folic acid 1 mg Tablet PO (08:17)
[2021-01-23] MEDS: docusate sodium 100 mg Capsule PO ×2 (08:18→18:10)
[2021-01-23] MEDS: clopidogrel 75 mg Tablet PO (08:18)
[2021-01-23] MEDS: metoprolol succinate ER (24 HR) 25 mg Tablet 12.5 MG PO (08:18)
[2021-01-23] MEDS: thiamine 100 mg Tablet PO (08:18)
[2021-01-23] MEDS: insulin glargine 100 units/1 mL 5 UNIT SUBCUT (08:19)
[2021-01-23] MEDS: ondansetron 2 mg/ML SDV 2 mL 4 MG IVP (08:35)
--- NOTE | 2021-01-23 09:04 | PC.SOCIAL ---
Imm Updated Updated pt of medicare rights. Verbalized understanding. Placed initial, timed and data copy in chart and in pt's room.
--- NOTE | 2021-01-23 09:48 | PC.NUTR ---
Addendum entered by Mariajose Sy 01/23/21 09:53: Dietary staff report low-sodium potato soup unavailable. Recommend provide other preferences as possible, and consider liberalizing diet restrictions if po intakes remain low within 1-3 days. Original Note: Nutrition assessment for LOS. Discussed preferences. Pt refuses nutritional supplements but did request potato soup. Dissatisfied with options available on current diet order. Have spoken with dietary staff who will attempt to obtain a low-sodium potato soup for pt. Discussed diet with nurse--question whether fluid restriction should be added. Nurse to clarify. Recommend obtain Phos level when possible due to CKD stage 3-4. Recommend provide preferences as appropriate within diet guidelines. See RD assessment for further details.
[2021-01-23] MEDS: phenytoin ER 100 mg Capsule 200 MG PO ×2 (11:08→18:11)
--- NOTE | 2021-01-23 11:15 | PC.NURSE ---
Patient thrown up her 0900 medications that were given at 0818. Clopidogrel 75 mg and Metoprolol 12.5 mg was clearly seen as one of the medications that were thrown up. Clopidogrel and metoprolol was administered again at 1110.
[2021-01-23 11:31] LABS: Glucose Point of Care 187 mg/dL (70-110)
--- NOTE | 2021-01-23 13:40 | P.PN_ITS ---
Subjective Subjective: Interval history: feels about the same forgot some questions this AM feels weak Vitals/I&O/Wt Last Vital Signs Temp 97.8 F 01/23/21 11:26 Pulse 110 H 01/23/21 11:26 Resp 13 01/23/21 11:26 BP 119/68 01/23/21 11:26 Pulse Ox 94 01/23/21 11:26 01/22/21 01/23/21 01/23/21 22:59 06:59 14:59 Intake Total 120 / 220 450 / 670 Output Total 725 / 725 400 / 1125 Balance -605 / -505 50 / -455 Weight last 48 hrs Weight 340 lb Weight 339 lb 1.6 oz Physical Exam Const: COMMON NORMALS: no acute distress, patient oriented x3 and no limitations Neck/C-Spine: COMMON NORMALS: no JVD Chest: COMMONS NORMALS: normal inspection of the chest Resp: COMMON NORMALS: normal respiratory effort and No retractions Cardio: COMMON NORMALS: no JVD and regular rate RATE: regular rate GI: COMMON NORMALS: Normal to inspection, nondistended, normoactive bowel sounds present and Soft to palpation PALPATION: Yes Soft to palpation Neuro: COMMON NORMALS: patient oriented x3 and CN's II-XII intact bilaterally Urinary Catheter Management^: Acevedo: Cath Placed During This Visit: yes Reason for Continuing Indwelling Catheter: Accurate Measurement of Urinary Output in Critically Ill Patients Urinary Catheter Date of Insertion: 01/16/21 Urinary Catheter Time of Insertion: 23:42 Data : 01/23/21 04:45 01/23/21 04:45 A&P Assessment and plan (1) Weakness: Status: Acute (2) Anemia: Status: Chronic Qualifiers: Anemia type: unspecified type Qualified Code(s): D64.9 - Anemia, unspecified (3) Fall: Status: Acute Qualifiers: Encounter type: initial encounter Qualified Code(s): W19.XXXA - Unspe cified fall, initial encounter (4) Hematoma of left flank: Status: Acute Qualifiers: Encounter type: initial encounter Qualified Code(s): S30.1XXA - Contusion of abdominal wall, initial encounter Additional A&P Information #weakness --Feels better but continues to have significant weakness requiring supervision and assistance --Fludrocortisone ordered #UTI --Stable #left flank hematoma --Stable anticoagulation held #anemia --blood counts stable #afib with rvr --resolved, continue metoprolol #Systolic dysfunction CHF --diuretics held --continue plavix #hypothyroidism --continue levothyroxine 200mcg Dispo: will likely need placement Attestations Medical Necessity Statement*: Carole Lee's hospital stay will require greater than 2 midnights for weakness Coding Level of Care Code Acute Metal Patternmaker for Chg Fwd Diagnoses Weakness R53.1 Anemia D64.9 Anemia type: unspecified type Fall W19.XXXA Encounter type: initial encounter Hematoma of left flank S30.1XXA Encounter type: initial encounter
[2021-01-23 16:35] LABS: Glucose Point of Care 123 mg/dL (70-110)
[2021-01-23] MEDS: fluconazole 100 mg Tablet PO (18:11)
[2021-01-23 20:22] LABS: Glucose Point of Care 257 mg/dL (70-110)
[2021-01-24] VITALS (9 sets, daily range): BP systolic 102–137; BP diastolic 55–84; PULSE 13–110; RESP 14–25; TEMP 36.3–36.9; O2SAT 90–98
[2021-01-24] MEDS: fludrocortisone 0.1 mg Tablet PO (05:21)
[2021-01-24] MEDS: pantoprazole DR 40 mg Tablet PO (05:21)
[2021-01-24] MEDS: levothyroxine 200 mcg Tablet PO (05:21)
[2021-01-24 06:52] LABS: Glucose Point of Care 150 mg/dL (70-110)
[2021-01-24] MEDS: folic acid 1 mg Tablet PO (09:13)
[2021-01-24] MEDS: thiamine 100 mg Tablet PO (09:14)
[2021-01-24] MEDS: docusate sodium 100 mg Capsule PO ×2 (09:14→18:42)
[2021-01-24] MEDS: clopidogrel 75 mg Tablet PO (09:14)
[2021-01-24] MEDS: metoprolol succinate ER (24 HR) 25 mg Tablet 12.5 MG PO (09:14)
[2021-01-24] MEDS: cyanocobalamin 1,000 mcg Tablet 1000 MCG PO (09:14)
[2021-01-24] MEDS: phenytoin ER 100 mg Capsule 200 MG PO ×2 (09:14→18:44)
[2021-01-24] MEDS: insulin glargine 100 units/1 mL 5 UNIT SUBCUT (09:15)
[2021-01-24 10:32] LABS: Glucose Point of Care 164 mg/dL (70-110)
--- NOTE | 2021-01-24 10:33 | P.PN_ITS ---
Subjective Subjective: Interval history: This a 75-year-old female who presented to the ER status post fall. She was noted to be in A. fib with RVR, acute kidney injury and had a UTI. The patient was also diagnosed with a hematoma of the left flank. She was on chronic anticoagulation with Eliquis. Patient also had issues with orthostatics. She has been started on fludrocortisone. Also issues with weakness. This morning she has no complaints. She feels about the same. Medications: Reviewed: Yes Vitals/I&O/Wt Last Vital Signs Temp 97.4 F L 01/24/21 08:00 Pulse 89 01/24/21 08:00 Resp 16 01/24/21 08:00 BP 102/61 01/24/21 08:00 Pulse Ox 92 01/24/21 08:00 01/23/21 01/24/21 01/24/21 22:59 06:59 14:59 Intake Total 120 / 360 100 / 460 240 / 240 Output Total 400 / 400 200 / 600 Balance -280 / -40 -100 / -140 240 / 240 Weight last 48 hrs Weight 338 lb 3.2 oz Weight 340 lb Physical Exam Const: COMMON NORMALS: no acute distress, patient oriented x3 and alert ORIENTATION/CONSCIOUSNESS: Yes oriented to person, Yes oriented to place and Yes oriented to time Neck/C-Spine: COMMON NORMALS: no JVD Resp: COMMON NORMALS: normal respiratory effort and No retractions Cardio: COMMON NORMALS: no JVD and regular rate RATE: regular rate GI: COMMON NORMALS: Soft to palpation and non-tender PALPATION: Yes Soft to palpation Extremity: COMMON NORMALS: normal to inspection Neuro: COMMON NORMALS: patient oriented x3 SENSORIUM/ORIENTATION: Yes alert, Yes oriented to person, Yes oriented to place and Yes oriented to time Psych: COMMON NORMALS: mental status grossly normal and Normal thought process present THOUGHT PROCESS: Normal thought process present Urinary Catheter Management^: Acevedo: Cath Placed During This Visit: yes Reason for Continuing Indwelling Catheter: Accurate Measurement of Urinary Output in Critically Ill Patients Urinary Catheter Date of Insertion: 01/16/21 Urinary Catheter Time of Insertion: 23:42 Data : 01/23/21 04:45 01/23/21 04:45 A&P Assessment and plan (1) Hematoma of left flank: Status: Acute Qualifiers: Encounter type: initial encounter Qualified Code(s): S30.1XXA - Contusion of abdominal wall, initial encounter (2) Chronic anticoagulation: Status: Chronic (3) Diabetes: Status: Chronic Qualifiers: Chronic kidney disease stage: stage 3 (moderate) Chronic kidney disease stage 3 subtype: stage 3b (GFR 30-44) Diabetes mellitus complication detail: with chronic kidney disease Diabetes mellitus complication status: with kidney complications Diabetes mellitus intermediate insulin use: with intermediate use Diabetes mellitus type: type 2 Qualified Code(s): E11.22 - Type 2 diabetes mellitus with diabetic chronic kidney disease; N18.32 - Chronic kidney disease, stage 3b; Z79.4 - cardiac cath lab technologist (current) use of insulin (4) Anemia: Status: Chronic Qualifiers: Anemia type: unspecified type Qualified Code(s): D64.9 - Anemia, unspecified (5) UTI (urinary tract infection): Status: Acute (6) CKD (chronic kidney disease): Status: Chronic Additional A&P Information #weakness --about the same --Fludrocortisone ordered --continue PT #UTI --Stable #left flank hematoma --Stable anticoagulation held --continue plavix #anemia --blood counts stable #afib with rvr --resolved, continue metoprolol --eliquis held, continue plavix #Systolic dysfunction CHF --diuretics held --continue plavix #hypothyroidism --continue levothyroxine 200mcg #DM -lantus, ssi Dispo: awaiting placement GI prophylaxis: PPI Attestations Medical Necessity Statement*: Carole Adriana Plunkette's hospital stay will require greater than 2 midnights for weakness Coding Level of Care Code Acute Residential Roofer for Chg Fwd Diagnoses Hematoma of left flank S30.1XXA Encounter type: initial encounter Chronic anticoagulation Z79.01 Diabetes E11.22; N18.32; Z79.4 Chronic kidney disease stage: stage 3 (moderate) Chronic kidney disease stage 3 subtype: stage 3b (GFR 30-44) Diabetes mellitus complication detail: with chronic kidney disease Diabetes mellitus complication status: with kidney complications Diabetes mellitus intermediate insulin use: with human performance technologist use Diabetes mellitus type: type 2 Anemia D64.9 Anemia type: unspecified type UTI (urinary tract infection) N39.0 CKD (chronic kidney disease) N18.9
[2021-01-24 16:48] LABS: Glucose Point of Care 205 mg/dL (70-110)
[2021-01-24] MEDS: fluconazole 100 mg Tablet PO (18:42)
[2021-01-24 21:27] LABS: Glucose Point of Care 117 mg/dL (70-110)
--- NOTE | 2021-01-24 22:27 | PC.NURSE ---
Patient states, I haven't peed since 7 o'clock, I need some diuretics. Patient voided large amount at 1900. After bedpan was removed, patient coughed and stated, Oh, no I'm going. Will continue to monitor.
[2021-01-25] VITALS (7 sets, daily range): BP systolic 127–157; BP diastolic 66–94; PULSE 95–109; RESP 13–16; TEMP 36.6; O2SAT 92–98
--- NOTE | 2021-01-25 01:20 | ECG_ITS ---
[facility] Test Date: 2021-01-25 Pat Name: Carole Lee Department: Room: 111 Gender: Female Processing Technician: : 1945 Requested By: Woody Boykin Order Number: [id number] Reading MD: Ramon Garcia M.D. Measurements Intervals [place] Rate: 108 P: IN: QRS: 91 QRSD: 121 T: 0 QT: 311 QTc: 418 Interpretive Statements ATRIAL FIBRILLATION WITH RAPID VENTRICULAR RESPONSE BORDERLINE RIGHT AXIS DEVIATION [QRS AXIS > 90] SEPTAL MYOCARDIAL INFARCTION [40+ ms Q WAVE IN V1/V2], PROBABLY OLD Compared to ECG 01/16/2021 23:03:11 Myocardial infarct finding now present Ventricular premature complex(es) no longer present Aberrant conduction of supraventricular beat(s) no longer present T-wave abnormality no longer present Possible ischemia no longer present Electronically Signed On 01-25-2021 23:43:01 CDT by Ramon Garcia M.D. [id number]
--- NOTE | 2021-01-25 01:25 | PC.NURSE ---
Patient c/o chest pain. Patient states, it started after one of my coughing spells. Patient states it is worse when she breaths in. EKG taken. Dr. Quintana notified. Ordered to give Tylenol and SL nitro.
[2021-01-25] MEDS: acetaminophen 325 mg Tablet 650 MG PO (01:28)
[2021-01-25] MEDS: nitroglycerin 0.4 mg sublingual Tablet SUBLINGUAL (01:29)
--- NOTE | 2021-01-25 01:40 | PC.NURSE ---
Patient states that her chest pain is gone. VSS. Will monitor. Patient states it was just because I had that coughing spell.
[2021-01-25] MEDS: pantoprazole DR 40 mg Tablet PO (05:09)
[2021-01-25] MEDS: levothyroxine 200 mcg Tablet PO (05:09)
[2021-01-25 06:47] LABS: Glucose Point of Care 143 mg/dL (70-110)
[2021-01-25] MEDS: docusate sodium 100 mg Capsule PO (08:49)
[2021-01-25] MEDS: thiamine 100 mg Tablet PO (08:49)
[2021-01-25] MEDS: cyanocobalamin 1,000 mcg Tablet 1000 MCG PO (08:49)
[2021-01-25] MEDS: clopidogrel 75 mg Tablet PO (08:49)
[2021-01-25] MEDS: phenytoin ER 100 mg Capsule 200 MG PO (08:51)
[2021-01-25] MEDS: folic acid 1 mg Tablet PO (08:51)
[2021-01-25] MEDS: metoprolol succinate ER (24 HR) 25 mg Tablet 12.5 MG PO (08:51)
[2021-01-25] MEDS: insulin glargine 100 units/1 mL 5 UNIT SUBCUT (08:52)
--- NOTE | 2021-01-25 09:00 | PC.SOCIAL ---
IMM Update Updated pt of medicare rights. Verbalized understanding. Gave pt a copy, placed initialed, dated, and time copy in chart.
--- NOTE | 2021-01-25 10:33 | PM.DCS ---
Discharge Providers Date of Admission: 01/18/21 12:22 Date of Discharge: January 25, 2021 Attending Provider at Admission: Woody Boykin Attending Provider at Discharge: Lacey Gillespie MD Primary Care Provider: Pascual Kay MD Diagnoses at Discharge Discharge Diagnosis (1) Hematoma of left flank: Status: Acute Qualifiers: Encounter type: initial encounter Qualified Code(s): S30.1XXA - Contusion of abdominal wall, initial encounter (2) Chronic anticoagulation: Status: Chronic Permanent problem details: Eliquis (3) Diabetes: Status: Chronic Qualifiers: Chronic kidney disease stage: stage 3 (moderate) Chronic kidney disease stage 3 subtype: stage 3b (GFR 30-44) Diabetes mellitus complication detail: with chronic kidney disease Diabetes mellitus complication status: with kidney complications Diabetes mellitus residential insulin use: with residential use Diabetes mellitus type: type 2 Qualified Code(s): E11.22 - Type 2 diabetes mellitus with diabetic chronic kidney disease; N18.32 - Chronic kidney disease, stage 3b; Z79.4 - MCFP (current) use of insulin (4) Anemia: Status: Chronic Qualifiers: Anemia type: unspecified type Qualified Code(s): D64.9 - Anemia, unspecified (5) UTI (urinary tract infection): Status: Acute (6) CKD (chronic kidney disease): Status: Chronic Reason for Visit Reason for Visit: SYNCOPAL EPISODE Hospital Course Hospital Course 75-year-old female who presented to the ER status post fall. She was noted to be in A. fib with RVR, acute kidney injury and had a UTI. The patient was also diagnosed with a hematoma of the left flank. She was on chronic anticoagulation with Eliquis. Patient also had issues with orthostatics. She has been started on fludrocortisone. For the patient's weakness physical therapy evaluated her. We continued the fludrocortisone. Her UTI was treated antibiotics. Anemia was monitored. A. fib RVR we continued metoprolol held her Eliquis. She was also held diuretics. Other chronic condition include hypothyroidism and diabetes were managed. She was discharged to home. Recommended home health a wheelchair was also ordered for as needed basis. Patient thought she needed it. Physical Exam Const: COMMON NORMALS: no acute distress GENERAL APPEARANCE: cooperative Neck/C-Spine: COMMON NORMALS: no JVD Resp: COMMON NORMALS: normal respiratory effort and No retractions Cardio: COMMON NORMALS: no JVD and regular rate RATE: regular rate GI: COMMON NORMALS: Soft to palpation and non-tender PALPATION: Yes Soft to palpation Neuro: COMMON NORMALS: moves all extremities Psych: COMMON NORMALS: mental status grossly normal, Normal thought process present and cooperative THOUGHT PROCESS: Normal thought process present Urinary Catheter Management^: Acevedo: Cath Placed During This Visit: yes, but has since been removed by the nurse Reason for Continuing Indwelling Catheter: Accurate Measurement of Urinary Output in Critically Ill Patients Urinary Catheter Date of Insertion: 01/16/21 Urinary Catheter Time of Insertion: 23:42 Date Urinary Catheter Removed: 01/24/21 Time Urinary Catheter Discontinued: 10:30 Discharge Data Data Completed and Pending: Completed Studies During Hospitalization Category Date Time Status CT abdomen pelvis wo con [id number] Rout ine Cat Scan 01/16/21 21:[address] head wo con* 7 0450 Stat Cat Scan 01/16/21 15:16 Completed XR chest 1V cole ble 90068 Stat Exams 01/16/21 15:16 Completed CV. echo limited 14692 Routine Ultrasound 01/21/21 12:53 Completed Labs from last 24 hours 01/25/21 01/24/21 01/24/21 06:43 21:16 16:21 POC Glucose 143 H 117 H 205 H Vitals: Last Vital Signs Temp 98 F 01/25/21 04:00 Pulse 106 H 01/25/21 09:32 Resp 16 01/25/21 09:32 BP 157/94 01/25/21 09:32 Pulse Ox 98 01/25/21 09:32 Discharge Plan Discharge Patient Disposition: Home Condition: Stable Prescriptions: New Vitamin B-12 1,000 mcg Tablet 1,000 mcg PO DAILY Qty: 30 RF: 0 metoprolol succinate 25 mg Tablet Extended Release 24 Hr 12.5 mg PO DAILY Qty: 30 RF: 0 docusate sodium 100 mg Capsule 100 mg PO BID Qty: 30 RF: 0 fluconazole 100 mg Tablet 100 mg PO Q24H Qty: 3 RF: 0 folic acid 1 mg Tablet 1 mg PO DAILY Qty: 30 RF: 0 fludrocortisone 0.1 mg Tablet 0.1 mg PO Q56H Qty: 30 RF: 0 Vitamin B-1 (mononitrate) 100 mg Tablet 100 mg PO DAILY Qty: 30 RF: 0 Continued gabapentin 100 mg capsule 200 mg PO BID RF: 0 pantoprazole 40 mg tablet,delayed release (DR/EC) 40 mg PO DAILY@0500 RF: 0 levothyroxine 200 mcg tablet 200 mcg PO DAILY@0500 RF: 0 clopidogrel 75 mg tablet 75 mg PO DAILY RF: 0 Levemir Flexpen See Rx Instructions .ROUTE .COMPLEX RF: 0 bumetanide 1 mg tablet 3 mg PO BID RF: 0 digoxin 125 mcg (0.125 mg) tablet 125 mcg PO DAILY RF: 0 calcitriol 0.25 mcg capsule 0.25 mcg PO DAILY RF: 0 atorvastatin 80 mg Tablet 80 mg PO BEDTIME@20 RF: 0 phenytoin sodium extended 200 mg Capsule 200 mg PO BID RF: 0 insulin aspart U-100 [Novolog U-100 Insulin aspart] 100 unit/mL Solution See Rx Instructions .ROUTE .COMPLEX RF: 0 Held Eliquis 2.5 mg Tablet 2.5 mg PO BID RF: 0 Hold Instructions: Resume on 02/26/21. Discontinued levothyroxine 25 mcg tablet 25 mcg PO DAILY@0500 RF: 0 metolazone 2.5 mg tablet 2.5 mg PO DAILY PRN (Reason: edema) Qty: 30 RF: 0 metoprolol succinate 25 mg tablet extended release 24 hr 25 mg PO DAILY RF: 0 Discharge Orders: Discharge Order (Routine); Ordered 01/25/21 Ordered By: Lacey Gillespie Other Ambulatory Orders: DME: Wheelchair (Order) Location: None Selected Ordered By: Lacey Gillespie Referrals: Pascual Kay MD [Primary Care Provider] - 01/31/21 2:45 pm (You have a hospital followup with Dr. Kay at [facility] on January 31 at 2:45pm.) Patient Instructions: Atrial Fibrillation, Metoprolol (By mouth), Thiamine (Vitamin B-1) (By mouth), Fluconazole (By mouth), Folic Acid (By mouth), Laxative, Stool Softeners (By mouth), Fludrocortisone Acetate (By mouth), Vitamin B-12 (Cyanocobalamin) (By mouth), Heart Failure (DC), Urinary Tract Infection in Women (DC), Fall Prevention (DC), CHF Stoplight, Opioid Safety Discharge Attestations Time Spent in Discharge Care*: less than 30 min Quality Metrics Clinical Quality Measures During this hospital stay, did patient experience: None Coding Level of Care Code Acute Chg FW DC note Diagnoses Hematoma of left flank S30.1XXA Encounter type: initial encounter Chronic anticoagulation Z79.01 Diabetes E11.22; N18.32; Z79.4 Chronic kidney disease stage: stage 3 (moderate) Chronic kidney disease stage 3 subtype: stage 3b (GFR 30-44) Diabetes mellitus complication detail: with chronic kidney disease Diabetes mellitus complication status: with kidney complications Diabetes mellitus terminal manager insulin use: with terminal manager use Diabetes mellitus type: type 2 Anemia D64.9 Anemia type: unspecified type UTI (urinary tract infection) N39.0 CKD (chronic kidney disease) N18.9
== END 2021-01-25 09:41 | disposition home health service (06) | DRG 683 ==
LOC: ER 18:30 → CSU 20:32
PROVIDERS: Hospitalist; Admitting Provider Internal Medicine; Emergency Provider Emergency Medicine; PCP Family Medicine; Visit Provider Internal Medicine
DX: N17.9 Acute kidney failure, unspecified (principal); N39.0 Urinary tract infection, site not specified; I13.0 Hypertensive heart and chronic kidney disease with heart failure and stage 1 through stage 4 chronic kidney disease, or unspecified chronic kidney disease; I50.22 Chronic systolic (congestive) heart failure; D62 Acute posthemorrhagic anemia; Z68.43 Body mass index [BMI] 50.0-59.9, adult; W19.XXXA Unspecified fall, initial encounter; I95.1 Orthostatic hypotension; I48.91 Unspecified atrial fibrillation; N18.4 Chronic kidney disease, stage 4 (severe); E11.22 Type 2 diabetes mellitus with diabetic chronic kidney disease; I25.10 Atherosclerotic heart disease of native coronary artery without angina pectoris; Z95.5 Presence of coronary angioplasty implant and graft; E78.5 Hyperlipidemia, unspecified; E66.01 Morbid (severe) obesity due to excess calories; E11.51 Type 2 diabetes mellitus with diabetic peripheral angiopathy without gangrene; S30.1XXA Contusion of abdominal wall, initial encounter; E86.0 Dehydration; B37.9 Candidiasis, unspecified; D63.1 Anemia in chronic kidney disease; Z79.4 Long term (current) use of insulin; Z79.02 Long term (current) use of antithrombotics/antiplatelets; E03.9 Hypothyroidism, unspecified
CPT/HCPCS: 36415; 36416; 36430; 36600; 51702; 70450; 71045; 74176; 80051; 80053; 80162; 80185; 80306; 80307; 81001; 81003; 82140; 82330; 82550; 82805; 82962; 83605; 83735; 83880; 84100; 84484; 85025; 85610; 85730; 86850; 86900; 86920; 87086; 87106; 93005; 93308; 96361; 96372; 96374; 97110; 97116; 97161; 97530; 99285; G0378; J0696; J1644; J1815 ×2; J2405; J3475; J7040; P9016; P9047

== ENCOUNTER 2021-01-27 15:12 | Emergency (ER) | payer MEDICARE, MEDICAID, SELFPAY ==
[2021-01-27] VITALS (8 sets, daily range): BP systolic 130–163; BP diastolic 75–95; PULSE 15–115; RESP 15–22; TEMP 36.5; O2SAT 97–99; BMI 51.2
--- NOTE | 2021-01-27 15:58 | USR_ITS ---
PROCEDURE INFORMATION: Exam: US Duplex Upper Extremity Veins Exam date and time: 01/27/2021 3:58 PM Age: 75 years old Clinical indication: Pain; Arm, lower; Right; Additional info: R/O dvt TECHNIQUE: Imaging protocol: Real-time Duplex ultrasound of the Upper Extremities with 2-D rain scale, color Doppler flow and spectral waveform analysis with image documentation. Complete exam focused on the bilateral upper extremity veins. COMPARISON: [place] C[place] CVA [id number] 11/22/2020 1:40 PM FINDINGS: Right deep veins: Unremarkable. Axillary and brachial veins are patent throughout without thrombus. Normal Doppler waveforms. Normal compressibility and/or augmentation response. Visualized internal jugular and subclavian veins are patent. Right superficial veins: Abnormal. Segmental occlusion of the cephalic vein in the mid to distal arm. Basilic vein patent. Left deep veins: Unremarkable. Axillary and brachial veins are patent throughout without thrombus. Normal Doppler waveforms. Normal compressibility and/or augmentation response. Visualized internal jugular and subclavian veins are patent. Left superficial veins: Unremarkable. Visualized basilic veins are patent without thrombus. Cephalic vein not clearly visible. Soft tissues: Unremarkable. US/[place] [id number] IMPRESSION: 1. No evidence of upper extremity deep vein thrombosis. 2. Positive for superficial thrombophlebitis with occlusion of the right upper extremity cephalic vein in the mid to distal arm area.
--- NOTE | 2021-01-27 16:04 | ECG_ITS ---
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 Measurements Intervals [place] Rate: 102 P: [place]: QRS: 82 QRSD: 121 T: 0 QT: 360 QTc: 470 Interpretive Statements ATRIAL FIBRILLATION WITH RAPID VENTRICULAR RESPONSE SEPTAL MYOCARDIAL INFARCTION [40+ ms Q WAVE IN V1/V2], OF INDETERMINATE AGE Compared to ECG 01/25/2021 01:24:53 No significant changes Electronically Signed On 01-27-2021 19:32:33 CDT by Antonietta Jo M.D. [id number]
--- NOTE | 2021-01-27 16:24 | USR_ITS ---
PROCEDURE INFORMATION: Exam: US Duplex Upper Extremity Arteries Exam date and time: 01/27/2021 4:24 PM Age: 75 years old Clinical indication: Other: Cold upper extremities; Additional info: Cold upper extremities, order clarified with Chantale Salas TECHNIQUE: Imaging protocol: Real-time ultrasound scan of the arteries of the bilateral upper extremities with 2-D rain scale, color Doppler flow and spectral waveform analysis. COMPARISON: [place] [id number] 01/27/2021 4:52 PM FINDINGS: Right subclavian artery: No occlusion or significant stenosis. Normal waveform. Right axillary artery: No occlusion or significant stenosis. Normal waveform. Right brachial artery: No occlusion or significant stenosis. Normal waveform. Right radial artery: Radial artery in the right upper extremity is patent, but the waveform is diminished, monophasic pattern. No elevation of the velocity. Right ulnar artery: The right ulnar artery was not seen; occlusion not excluded. Left subclavian artery: No occlusion or significant stenosis. Normal waveform. Left axillary artery: No occlusion or significant stenosis. Normal waveform. Left brachial artery: No occlusion or significant stenosis. Normal waveform. Left radial artery: No occlusion or significant stenosis. Normal waveform. Small circumscribed anechoic nonvascular cystic area in the subcutaneous soft tissues of the left wrist measuring 8 mm x 8 mm x 6 mm. Left ulnar artery: No occlusion or significant stenosis. Normal waveform. US/[place] [id number] IMPRESSION: 1. In the distal right upper extremity the right ulnar artery is not seen and occlusion cannot be excluded. The radial artery throughout the forearm is patent, but the waveform is significantly diminished. No significant proximal arterial abnormality of the right upper extremity. 2. No significant arterial abnormality in the left upper extremity identified.
[2021-01-27 16:45] LABS: Basophils % 0.6 %; Eosinophils # 0.4 10^3/uL (0.0-0.8); Eosinophils % 6.3 %; Hematocrit 32.5 % (37.0-47.0); Hemoglobin 9.9 g/dL (11.5-15.3); Lymphocytes # 1.9 10^3/uL (0.8-4.8); Lymphocytes % 28.3 %; Mean Corpuscular HGB Conc 30.5 g/dL (30.0-36.0); Mean Corpuscular Hemoglobin 32.2 pg (28.0-34.0); Mean Corpuscular Volume 105.9 fL (81-99); Mean Platelet Volume 10.2 fL (7.4-10.4); Monocytes # 0.9 10^3/uL (0.2-0.9); Neutrophils # 3.42 10^3/uL (1.8-7.7); Neutrophils % 51.5 %; Nucleated Red Blood Cells % 0 %; Platelet Count 239 10^3/cmm (130-400); Red Blood Count 3.07 10^6/uL (4.1-5.3); Red Cell Distribution Width 15.3 % (12.1-15.1); White Blood Count 6.6 10^3/uL (4.0-10.0)
[2021-01-27 17:08] LABS: Troponin(5th) Baseline 104 ng/L (0-10)
[2021-01-27 17:12] LABS: Alanine Aminotransferase 7 U/L (0-33); Albumin Level 3.1 g/dL (3.5-5.2); Alkaline Phosphatase 141 IU/L (35-105); Anion Gap 17.7 (5-19); Aspartate Amino Transferase 22 U/L (0-32); Blood Urea Nitrogen 37 mg/dL (8-23); Calcium 7.9 mg/dL (8.5-10.5); Carbon Dioxide 25 mmol/L (22-29); Chloride 99 mmol/L (98-107); Globulin 3.3 g/dL (1.3-4.6); Glucose 181 mg/dL (65-115); NT Pro B Type Natriuretic Pept 8282 pg/mL (0-450); Osmolality Calculated 297 mOsm/kg (285-295); Potassium 4.7 mmol/L (3.5-5.1); Sodium 137 mmol/L (136-145); Total Bilirubin 0.5 mg/dL (0.15-1.2); Total Protein 6.4 g/dL (6.6-8.7)
[2021-01-27 17:19] LABS: Lactate (Lactic Acid level) 1.4 mmol/L (0.5-2.2)
[2021-01-27 17:30] LABS: Add Urine Microscopic? YES; Bilirubin Urine Neg (Negative); Blood Urine Neg (Negative); Glucose Urine UA Norm (Normal); Ketones Urine Negative (Negative); Leukocyte Esterase Urine Trace (Negative); Nitrate Urine Negative (Negative); Protein Urine Neg (Negative); Urine Appearance Hazy (CLEAR); Urine Color Straw (Yellow); Urobilinogen Urine Norm (Negative); pH Urine 5 (5-7)
[2021-01-27 17:31] LABS: Add Urine Culture? No; Bacteria Urine 1+ /hpf; Squamous Epithelial Cell Urine 15-25 /hpf (0-5)
--- NOTE | 2021-01-27 18:04 | ECG_ITS ---
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 Measurements Intervals [place] Rate: 88 P: [place]: QRS: 93 QRSD: 121 T: 60 QT: 361 QTc: 438 Interpretive Statements ATRIAL FIBRILLATION BORDERLINE RIGHT AXIS DEVIATION [QRS AXIS > 90] SEPTAL MYOCARDIAL INFARCTION [40+ ms Q WAVE IN V1/V2], OF INDETERMINATE AGE Compared to ECG 01/27/2021 16:21:51 No significant changes Electronically Signed On 01-27-2021 19:37:40 CDT by Antonietta Jo M.D. [id number]
--- NOTE | 2021-01-27 19:06 | CTR_ITS ---
PROCEDURE INFORMATION: Exam: CT Chest Without Contrast; Diagnostic Exam date and time: 01/27/2021 7:06 PM Age: 75 years old Clinical indication: Injury or trauma; Generalized; Blunt trauma (contusions or hematomas); Prior surgery; Surgery date: 6+ months; Surgery type: Gb, hernia, stent; Patient HX: C/O recent fall; Additional info: Hematoma on 01/16/21 TECHNIQUE: Imaging protocol: Diagnostic computed tomography of the chest without contrast. Radiation optimization: All CT scans at this facility use at least one of these dose optimization techniques: automated exposure control; mA and/or kV adjustment per patient size (includes targeted exams where dose is matched to clinical indication); or iterative reconstruction. COMPARISON: CT chest con [id number] 11/14/2020 2:54 AM RADIATION DOSE METRICS: Total DLP (mGy-cm): 2689.5 FINDINGS: Lungs: Mild severity emphysematous lung changes. Negative for pulmonary hemorrhage. No focal pulmonary consolidation. Negative for endobronchial lesion. Posterior left lower lobe calcified granuloma. Pleural spaces: Unremarkable. No pneumothorax. No pleural effusion. Heart: No significant cardiac chamber dilation. Negative for pericardial effusion. Mediastinal space: No mediastinal hematoma. No thoracic esophageal wall thickening. Aorta: Scattered atherosclerotic plaques throughout thoracic aorta. Negative for aneurysm. Lymph nodes: Unremarkable. No enlarged lymph nodes. Gallbladder and bile ducts: Cholecystectomy. Bones/joints: Unremarkable. No acute fracture. Soft tissues: Soft tissues of chest wall are unremarkable. No significant contusion. No focal soft tissue hematoma. IMPRESSION: Negative for acute thoracic injury. PROCEDURE INFORMATION: Exam: CT Abdomen And Pelvis Without Contrast Exam date and time: 01/27/2021 7:06 PM Age: 75 years old Clinical indication: Injury or trauma; Generalized; Blunt trauma (contusions or hematomas); Prior surgery; Surgery date: 6+ months; Surgery type: Gb, hernia, stent; Patient HX: C/O recent fall; Additional info: Hematoma on 01/16/21 TECHNIQUE: Imaging protocol: Computed tomography of the abdomen and pelvis without contrast. Radiation optimization: All CT scans at this facility use at least one of these dose optimization techniques: automated exposure control; mA and/or kV adjustment per patient size (includes targeted exams where dose is matched to clinical indication); or iterative reconstruction. COMPARISON: CT chest wo con [id number] 11/14/2020 2:54 AM RADIATION DOSE METRICS: Total DLP (mGy-cm): 2689.5 FINDINGS: Liver: Normal. No mass. Gallbladder and bile ducts: Cholecystectomy. Nondilated biliary system. Pancreas: Fatty replacement changes of pancreas without focal lesion. Spleen: Normal. No splenomegaly. Adrenal glands: Normal. No mass. Kidneys and ureters: Severe bilateral renal cortical atrophy. No renal injury. Negative for hydronephrosis. Simple left renal cortical cyst. Stomach and bowel: Unremarkable. No obstruction. No mucosal thickening. Appendix: No evidence of appendicitis. Intraperitoneal space: Unremarkable. No free air. No significant fluid collection. Vasculature: Diffuse abdominal aorta atherosclerosis. Negative for aneurysm. Lymph nodes: Unremarkable. No enlarged lymph nodes. Urinary bladder: Unremarkable as visualized. Reproductive: Unremarkable as visualized. Bones/joints: Negative for acute pelvic fractures. Pelvic ring alignment is unremarkable. Hip joints are unremarkable. Lumbar spine alignment is unremarkable. Soft tissues: Soft tissue hematomas noted in the subcutaneous fat of the left lower flank area. CT/CT chest abd pel wo con IMPRESSION: 1. Negative for intra-abdominal injury. 2. Bandlike area of subcutaneous soft tissue hematoma of the left lower flank area. COMMENTS: Consistent with the [employer]'s Incidental Findings Committee white paper (J Am Donny Radiol 2018): Any incidental renal lesion less than 1 cm or classified as too small to characterize, or any incidental cystic renal lesion characterized as simple-appearing, is likely benign. No follow-up imaging is recommended for these lesions per consensus recommendations based on imaging criteria. Radiation Dose CTDIVOL = (mGy): DLP = 2689.5~2689.5 (mGy-cm)
[2021-01-27 19:32] LABS: Troponin 5 2HR 96.91 ng/L (0-10)
--- NOTE | 2021-01-27 19:46 | PC.NURSE ---
pt placed on surveillance monitor
[2021-01-27 19:57] LABS: Troponin 5 2HR Delta -7.09 ABS# (0-10)
--- NOTE | 2021-01-27 21:14 | W.ED.EXTPRO ---
HPI - Extremity Problem General: Chief complaint: Extremity Problem,Nontraumatic Stated complaint: RIGHT ARM NUMBNESS Time Seen by Provider: 01/27/21 15:42 History of Present Illness: HPI Narrative: The patient is a 75-year-old female with past medical history atrial fibrillation with Eliquis held for the past 2 weeks since a fall producing a hematoma in her left flank, chronic kidney disease, CHF with ejection fraction 35 to 40% on TTE December 10, 2020. CKD on transient hemodialysis but not currently. She was recently hospitalized and discharged 2 days ago for A. fib RVR, CKD and she had fallen and developed a hematoma. The fall was 2 weeks ago and her Eliquis was held during that time and continues to be held. She has not been on the Eliquis for 2 weeks. She continues to be on Plavix. This morning around 10 AM she says she woke up and had a cold and tingling right upper extremity which she describes as numb. Associated symptoms: Deny chest pain or rash Review of Systems General: Reports: 10 or more systems reviewed and unremarkable except in HPI and below Const: Denies: fatigue Eyes: Denies: change in vision, blurry vision or eye redness ENMT: Denies: throat pain, swelling of lips/tongue, ear or mastoid pain or nasal congestion Card: Denies: chest pain, palpitations, irregular heart rhythm, edema, dyspnea on exertion or orthopnea Resp: Denies: dyspnea, productive cough or non-productive cough GI: Denies: abdominal pain, diarrhea or GI cramping : Denies: flank pain, difficulty voiding, urinary frequency or urinary urgency Musc: Reports: other (cold, tingling RUE. ); Denies: neck pain, back pain, extremity pain, joint pain, joint redness, limited range of motion or muscle weakness Skin/Breast: Denies: rash, pruritus, erythema, skin pain or skin tenderness Neuro: Denies: headache(s), numbness in extremities, weakness in extremities, sensory changes, difficulty walking, dizziness, confusion or Slurred speech present Psych: Denies: anxiety or depression Endo: Denies: polyuria All/Imm: Denies: urticaria, throat swelling or tongue swelling PFS ED PFSH: Medical History (Updated 01/27/21 @ 21:29 by James Manley MD) Afib Anemia Atrial fibrillation with RVR CAD (coronary artery disease) Chronic anticoagulation Eliquis CKD (chronic kidney disease) Congestive heart failure Diabetes Dyslipidemia Hematoma of left flank HTN (hypertension) Morbid obesity Morbid obesity PVD (peripheral vascular disease) 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) Status post insertion of drug-eluting stent into left anterior descending (LAD) artery Venous stasis Surgical History (Updated 01/17/21 @ 06:04 by Grace Givens MD) History of ankle surgery History of cataract surgery History of cholecystectomy History of heart artery stent History of umbilical hernia repair S/P hemodialysis catheter insertion (11/22/20) Right internal jugular vein d/c 12/25/20 Family History (Updated 01/17/21 @ 06:03 by Grace Givens MD) Other Cancer Diabetes Social History (Updated 01/17/21 @ 06:03 by Grace Givens MD) Smoking and tobacco status: never smoked Alcohol intake: never Marital status: / Physical Exam Const: COMMON NORMALS: no acute distress, patient oriented x3, no limitations, alert and well nourished GENERAL APPEARANCE: cooperative, comfortable, well kempt and well developed NUTRITIONAL APPEARANCE: obese ORIENTATION/CONSCIOUSNESS: Yes awake, Yes oriented to person, Yes oriented to place and Yes oriented to time HENMT: COMMON NORMALS: normocephalic, external ears normal and Normal external nose present HEAD & SCALP: normal to inspection and normocephalic NOSE: Normal external nose present EXTERNAL EAR: Yes external ears normal MOUTH: Normal oral and palatal mucosa present THROAT: posterior oropharynx normal Eye: COMMON NORMALS: Equal, round and reactive pupils present and EOMs intact bilaterally GENERAL EYE: appearance normal, both eyes and all related structures PUPIL: Yes Equal, round and reactive pupils present Neck/C-Spine: COMMON NORMALS: full ROM, no lymphadenopathy, no meningeal signs and no JVD GENERAL: Yes normal visual inspection Lymph: LYMPHATIC: no lymphadenopathy noted Chest: COMMONS NORMALS: normal inspection of the chest and normal palpation of entire chest wall Resp: COMMON NORMALS: normal respiratory effort, No retractions, No use of accessory muscles, clear to auscultation bilaterally and percussion normal EFFORT & INSPECTION: Yes able to speak in complete sentences AUSCULTATION: clear to auscultation bilaterally PERCUSSION: percussion normal Cardio: COMMON NORMALS: no JVD, regular rate, regular rhythm, S1 normal heart sound present, S2 normal heart sound present and Peripheral pulses 2+ throughout RATE: regular rate RHYTHM: regular rhythm HEART SOUNDS: S1 normal heart sound present and S2 normal heart sound present PERIPHERAL PULSES: Peripheral pulses 2+ throughout GI: COMMON NORMALS: Normal to inspection, nondistended, normoactive bowel sounds present, Soft to palpation, non-tender and no masses INSPECTION: Yes normal to inspection PALPATION: Yes Soft to palpation : COMMON NORMALS: Yes no CVA tenderness BLADDER/KIDNEY EXAM: Yes no CVA tenderness Back/Pelvis: COMMON NORMALS: no CVA tenderness, thoracic and lumbar spine normal to inspection, no thoracic nor lumbar tenderness and thoraco-lumbar ROM normal Extremity: COMMON NORMALS: normal to inspection, full ROM, capillary refill normal, no joint enlargement and no pedal edema NARRATIVE EXTREMITY EXAM: PulseRight upper extremity is cool to the touch but not terribly cold. Cap refill at fingertips is prolonged to several seconds in all fingers. Difficult to palpate. Ulnar pulse not palpable on the right side. Not able to Doppler either pulse at bedside. Left side able to Doppler and palpate the left radial artery. Not able to Doppler or palpate the ulnar artery. Cap refill also 5 seconds on the left side though more brisk than the right side. Slightly less cool to touch as well. She has good movement in both of her arms but complains of pain with movement of her right upper extremity. Left posterior hand has a 4 cm hematoma likely from a peripheral IV placement a couple weeks ago when she was on Eliquis. GENERAL: Yes normal exam except as noted Neuro: COMMON NORMALS: patient oriented x3, CN's II-XII intact bilaterally, moves all extremities, no focal motor deficits, no sensory deficits noted and gait normal SENSORIUM/ORIENTATION: Yes alert, Yes oriented to person, Yes oriented to place and Yes oriented to time MENINGEAL SIGNS: Yes no meningeal signs Psych: COMMON NORMALS: mental status grossly normal, Normal thought process present, cooperative, normal affect and speech normal APPEARANCE: Yes well kempt ATTITUDE: Yes calm SPEECH: Yes normal speech THOUGHT PROCESS: Normal thought process present Skin: COMMON NORMALS: no rashes or lesions noted GENERAL SKIN EXAM: no rashes or lesions noted Course Vital Signs: Vital signs: Vital Signs Temperature 97.7 F 01/27/21 15:16 Pulse Rate 115 H 01/27/21 21:04 Respiratory Rate 20 H 01/27/21 21:04 Blood Pressure 149/84 01/27/21 21:04 Pulse Oximetry 97 01/27/21 21:04 MDM - Extremity (Nontraumatic) MDM Narrative: Medical decision making narrative: Initial concern for upper extremity ischemia as she complained of pain and weakness and tingling. Cap refill several seconds on the right side as well. Unable to Doppler pulses or palpate them on the right side as well. She does have movement intact there. Her Eliquis has been held for a couple weeks since a fall that produced a hematoma to her low back/flank. CT shows it is stable. Initially discussed with Dr. Garcia who recommended admitting here after the ultrasound showed the right ulnar artery no flow. The read came back on it and showed that the radial artery also has reduced flow. Discussed with him again and recommended transfer to another facility. Discussed with [facility] vascular surgeon Dr. Pulido who recommends heparin and transfer for surgery. She also has CKD with creat 2.1 and elevated troponin with initial 104 and 2 hour 96. She has chronically elevated trops in the past. No ST changes on EKG. her pulse rate has varied from the upper 80s and 90s but most of the time has been in the low 100s to low teens. A. fib RVR is the rate. Will also start Cardizem bolus and drip for transport. Patient currently stable for transfer. Lab Data: Labs: Lab Results 01/27/21 01/27/21 01/27/21 Range/Units 16:38 16:38 16:38 WBC 6.6 (4.0-10.0) 10^3/ uL RBC 3.07 L (4.1-5.3) 10^6/u L Hgb 9.9 L (11.5-15.3) g/dL Hct 32.5 L (37.0-47.0) % MCV 105.9 H (81-99) fL MCH 32.2 (28.0-34.0) pg MCHC 30.5 (30.0-36.0) g/dL RDW 15.3 H (12.1-15.1) % Plt Count 239 (130-400) 10^3/c mm MPV 10.2 (7.4-10.4) fL Neut % (Auto) 51.5 % Lymph % (Auto) 28.3 % [place] % (Auto) 13.0 % Eos % (Auto) 6.3 % Baso % (Auto) 0.6 % Neut # (Auto) 3.42 (1.8-7.7) 10^3/u L Lymph # (Auto) 1.9 (0.8-4.8) 10^3/u L [place] # (Auto) 0.9 (0.2-0.9) 10^3/u L Eos # (Auto) 0.4 (0.0-0.8) 10^3/u L Baso # (Auto) 0.0 (0.0-0.1) 10^3/u L Nucleated RBC % (a uto) 0 % Nucleated RBCs # 0.0 /100WBC Sodium 137 (136-145) mmol/L Potassium 4.7 (3.5-5.1) mmol/L Chloride 99 (98-107) mmol/L Carbon Dioxide 25 (22-29) mmol/L Anion Gap 17.7 (5-19) BUN 37 H (8-23) mg/dL Creatinine 2.1 H (0.5-0.9) mg/dL GFR Calculation Not Reportable Glucose 181 H (65-115) mg/dL Calculated Osmolal ity 297 H (285-295) mOsm/k g Lactate (0.5-2.2) mmol/L Calcium 7.9 L (8.5-10.5) mg/dL Total Bilirubin 0.5 (0.15-1.2) mg/dL AST 22 (0-32) U/L ALT 7 (0-33) U/L Alkaline Phosphata se 141 H (35-105) IU/L Troponin T Baselin e 104 H* (0-10) ng/L Troponin T 120 Min [place] Delta Troponin T NT-Pro-B Natriuret Pep 8282 H (0-450) pg/mL Total Protein 6.4 L (6.6-8.7) g/dL Albumin 3.1 L (3.5-5.2) g/dL Globulin 3.3 (1.3-4.6) g/dL Urine Color (Yellow) Urine Appearance (CLEAR) Urine pH (5-7) Ur Specific Gravit y (1.005-1.030) Urine Protein (Negative) Urine Glucose (UA) (Normal) Urine Ketones (Negative) Urine Blood (Negative) Urine Nitrate (Negative) Urine Bilirubin (Negative) Urine Urobilinogen (Negative) mg/dL Ur Leukocyte Priscilla ase (Negative) Urine RBC (0-2) /hpf Urine WBC (0-5) /hpf Ur Squamous Epith Cells (0-5) /hpf Amorphous Sediment Urine Bacteria (NONE) /hpf 01/27/21 01/27/21 01/27/21 Range/Units 16:52 17:00 18:30 WBC (4.0-10.0) 10^3/ uL RBC (4.1-5.3) 10^6/u L Hgb (11.5-15.3) g/dL Hct (37.0-47.0) % MCV (81-99) fL MCH (28.0-34.0) pg MCHC (30.0-36.0) g/dL RDW (12.1-15.1) % Plt Count (130-400) 10^3/c mm MPV (7.4-10.4) fL Neut % (Auto) % Lymph % (Auto) % [place] % (Auto) % Eos % (Auto) % Baso % (Auto) % Neut # (Auto) (1.8-7.7) 10^3/u L Lymph # (Auto) (0.8-4.8) 10^3/u L [place] # (Auto) (0.2-0.9) 10^3/u L Eos # (Auto) (0.0-0.8) 10^3/u L Baso # (Auto) (0.0-0.1) 10^3/u L Nucleated RBC % (a uto) % Nucleated RBCs # /100WBC Sodium (136-145) mmol/L Potassium (3.5-5.1) mmol/L Chloride (98-107) mmol/L Carbon Dioxide (22-29) mmol/L Anion Gap (5-19) BUN (8-23) mg/dL Creatinine (0.5-0.9) mg/dL GFR Calculation Glucose (65-115) mg/dL Calculated Osmolal ity (285-295) mOsm/k g Lactate 1.4 (0.5-2.2) mmol/L Calcium (8.5-10.5) mg/dL Total Bilirubin (0.15-1.2) mg/dL AST (0-32) U/L ALT (0-33) U/L Alkaline Phosphata se (35-105) IU/L Troponin T Baselin e (0-10) ng/L Troponin T 120 Min [place] Cancelled Delta Troponin T Cancelled NT-Pro-B Natriuret Pep (0-450) pg/mL Total Protein (6.6-8.7) g/dL Albumin (3.5-5.2) g/dL Globulin (1.3-4.6) g/dL Urine Color Straw (Yellow) Urine Appearance Hazy A (CLEAR) Urine pH 5 (5-7) Ur Specific Gravit y 1.010 (1.005-1.030) Urine Protein Neg (Negative) Urine Glucose (UA) Norm (Normal) Urine Ketones Negative (Negative) Urine Blood Neg (Negative) Urine Nitrate Negative (Negative) Urine Bilirubin Neg (Negative) Urine Urobilinogen Norm (Negative) mg/dL Ur Leukocyte Priscilla ase Trace H (Negative) Urine RBC None (0-2) /hpf Urine WBC 5-10 H (0-5) /hpf Ur Squamous Epith Cells 15-25 H (0-5) /hpf Amorphous Sediment Not Reportable Urine Bacteria 1+ H (NONE) /hpf 01/27/ Range/Units 19:09 WBC (4.0-10.0) 10^3/ uL RBC (4.1-5.3) 10^6/u L Hgb (11.5-15.3) g/dL Hct (37.0-47.0) % MCV (81-99) fL MCH (28.0-34.0) pg MCHC (30.0-36.0) g/dL RDW (12.1-15.1) % Plt Count (130-400) 10^3/c mm MPV (7.4-10.4) fL Neut % (Auto) % Lymph % (Auto) % [place] % (Auto) % Eos % (Auto) % Baso % (Auto) % Neut # (Auto) (1.8-7.7) 10^3/u L Lymph # (Auto) (0.8-4.8) 10^3/u L [place] # (Auto) (0.2-0.9) 10^3/u L Eos # (Auto) (0.0-0.8) 10^3/u L Baso # (Auto) (0.0-0.1) 10^3/u L Nucleated RBC % (a uto) % Nucleated RBCs # /100WBC Sodium (136-145) mmol/L Potassium (3.5-5.1) mmol/L Chloride (98-107) mmol/L Carbon Dioxide (22-29) mmol/L Anion Gap (5-19) BUN (8-23) mg/dL Creatinine (0.5-0.9) mg/dL GFR Calculation Glucose (65-115) mg/dL Calculated Osmolal ity (285-295) mOsm/k g Lactate (0.5-2.2) mmol/L Calcium (8.5-10.5) mg/dL Total Bilirubin (0.15-1.2) mg/dL AST (0-32) U/L ALT (0-33) U/L Alkaline Phosphata se (35-105) IU/L Troponin T Baselin e (0-10) ng/L Troponin T 120 Min [place] 96.91 H Delta Troponin T -7.09 L NT-Pro-B Natriuret Pep (0-450) pg/mL Total Protein (6.6-8.7) g/dL Albumin (3.5-5.2) g/dL Globulin (1.3-4.6) g/dL Urine Color (Yellow) Urine Appearance (CLEAR) Urine pH (5-7) Ur Specific Gravit y (1.005-1.030) Urine Protein (Negative) Urine Glucose (UA) (Normal) Urine Ketones (Negative) Urine Blood (Negative) Urine Nitrate (Negative) Urine Bilirubin (Negative) Urine Urobilinogen (Negative) mg/dL Ur Leukocyte Priscilla ase (Negative) Urine RBC (0-2) /hpf Urine WBC (0-5) /hpf Ur Squamous Epith Cells (0-5) /hpf Amorphous Sediment Urine Bacteria (NONE) /hpf Discharge Plan Discharge Patient Disposition: Xfer Short-Term Hosp Clinical Impression: Ulnar artery thrombus, right, Superficial vein thrombosis, CKD (chronic kidney disease), Elevated troponin I level, Atrial fibrillation with RVR, CHF (congestive heart failure) Condition: Stable Referrals: Pascual Kay MD [Primary Care Provider] - Coding Level of Care Code ED Radiopharmacist for Sosa Bates
[2021-01-27] MEDS: heparin 5,000 unit/mL INJ 1 mL 4000 UNIT SUBCUT (21:23)
[2021-01-27] MEDS: heparin drip 25,000 UNIT/500 ML PREMIX 41.53 UNIT IV (21:29)
[2021-01-27 21:32] LABS: SARS Covid-2 Antigen Negative (Negative)
== END 2021-01-27 21:48 | disposition short-term general hospital (02) ==
PROVIDERS: Emergency Provider Family Medicine; PCP Family Medicine
DX: I74.2 Embolism and thrombosis of arteries of the upper extremities (principal); I82.819 Embolism and thrombosis of superficial veins of unspecified lower extremity; R77.8 Other specified abnormalities of plasma proteins; I48.20 Chronic atrial fibrillation, unspecified; I13.0 Hypertensive heart and chronic kidney disease with heart failure and stage 1 through stage 4 chronic kidney disease, or unspecified chronic kidney disease; E11.22 Type 2 diabetes mellitus with diabetic chronic kidney disease; N18.9 Chronic kidney disease, unspecified; I50.9 Heart failure, unspecified; E78.5 Hyperlipidemia, unspecified; Z20.822 Contact with and (suspected) exposure to COVID-19; M79.601 Pain in right arm
CPT/HCPCS: 36415; 71250; 74176; 80053; 81001; 83605; 83880; 84484; 85025; 87426; 93005; 93930; 93970; 96365; 96372; 96375; 99291; J1644; J3490

== ENCOUNTER 2021-02-12 16:38 | Outpatient (CLI) | payer MEDICARE, MEDICAID, SELFPAY ==
[2021-02-12 16:59] LABS: Basophils # 0.1 10^3/uL (0.0-0.1); Basophils % 0.9 %; Eosinophils # 0.4 10^3/uL (0.0-0.8); Eosinophils % 4.3 %; Hematocrit 31.9 % (37.0-47.0); Hemoglobin 9.9 g/dL (11.5-15.3); Lymphocytes # 1.5 10^3/uL (0.8-4.8); Lymphocytes % 17.4 %; Mean Corpuscular Hemoglobin 31.4 pg (28.0-34.0); Mean Corpuscular Volume 101.3 fL (81-99); Mean Platelet Volume 10.6 fL (7.4-10.4); Monocytes # 0.9 10^3/uL (0.2-0.9); Monocytes % 10.6 %; Neutrophils # 5.64 10^3/uL (1.8-7.7); Nucleated Red Blood Cells % 0 %; Platelet Count 445 10^3/cmm (130-400); Red Blood Count 3.15 10^6/uL (4.1-5.3); Red Cell Distribution Width 15.8 % (12.1-15.1); White Blood Count 8.6 10^3/uL (4.0-10.0)
[2021-02-12 17:22] LABS: INR 2.38 (0.8-1.2)
[2021-02-12 17:31] LABS: Anion Gap 15.4 (5-19); Blood Urea Nitrogen 49 mg/dL (8-23); Calcium 6.5 mg/dL (8.5-10.5); Carbon Dioxide 30 mmol/L (22-29); Chloride 93 mmol/L (98-107); Glucose 179 mg/dL (65-115); Osmolality Calculated 297 mOsm/kg (285-295); Potassium 3.4 mmol/L (3.5-5.1); Sodium 135 mmol/L (136-145)
== END 2021-02-12 16:39 | disposition home or self-care (01) ==
LOC: LAB 16:39
PROVIDERS: PCP Family Medicine; Visit Provider Physician Assistant
DX: I74.2 Embolism and thrombosis of arteries of the upper extremities (principal)
CPT/HCPCS: 80048; 85025; 85610

== ENCOUNTER 2021-02-20 12:57 | Outpatient (CLI) | payer MEDICARE, MEDICAID, SELFPAY ==
[2021-02-20 13:44] LABS: Creatinine Urine, Random 58 mg/dL (28-217)
[2021-02-20 13:46] LABS: Microalbum Creatinine Ratio Ur 17 mg/dL (0-20); Microalbumin Random Urine 1 ug/dL (0-20)
== END 2021-02-20 12:58 | disposition home or self-care (01) ==
LOC: LAB 13:03
PROVIDERS: PCP Family Medicine; Visit Provider Physician Assistant
DX: I10 Essential (primary) hypertension (principal)
CPT/HCPCS: 82044

== ENCOUNTER 2021-02-26 15:26 | Outpatient (CLI) | payer MEDICARE, MEDICAID, SELFPAY ==
[2021-02-26 17:23] LABS: INR 6.98 (0.8-1.2)
== END 2021-02-26 15:27 | disposition home or self-care (01) ==
LOC: LAB 15:31
PROVIDERS: PCP Family Medicine; Visit Provider Family Medicine
DX: R79.1 Abnormal coagulation profile (principal)
CPT/HCPCS: 85610

== ENCOUNTER 2021-02-28 14:35 | Inpatient (IN) | payer MEDICARE, MEDICAID, SELFPAY ==
[2021-02-28 14:44] VITALS: BP 138/46; PULSE 58; RESP 16; O2SAT 100; BMI 47.5
--- NOTE | 2021-02-28 15:09 | XR_ITS ---
WS: [id number] Portable AP upright chest, 02/28/2021 Clinical Data: dyspnea/cough Comparison: Portable chest, 01/16/2021. Findings: No nodules, masses or effusions are seen. The heart is large. The pulmonary vascularity is not increased. No pneumonia or pneumothorax is seen. The aortic arch and descending thoracic aorta sh ow calcification and tortuosity. There are monitor leads on the chest wall. XR/XR chest 1V portable [id number] Impression: Atherosclerosis and cardiomegaly.
--- NOTE | 2021-02-28 15:47 | W.ED.WEAKNES ---
HPI - Weakness General: Chief complaint: Weakness Stated complaint: LETHARGIC/ DECREASED URINE OUTPUT Time Seen by Provider: 02/28/21 14:39 History of Present Illness: HPI Narrative: 75-year-old female who is a resident of a local jail comes in complaining of generalized weakness and fatigue with poor urine output. She was admitted to the jail due to inability to care for herself she has heel protectors on and a Acevedo and is now unable to get up and get around.She is on anticoagulant she has a history of atrial fibrillation as well as chronic kidney disease. She denies any fever sweats or chills any cough or shortness of breath no chest pain. MD Complaint: generalized weakness Onset (ago): hour(s) Duration: constant Location: generalized Severity: moderate Relieving factors: none Exacerbating factors: none Associated symptoms: Denies chest pain, chills, confusion, melena, decreased appetite, diaphoresis, dysuria, easy bruising, fever(s), headache(s), myalgias, nausea, rash, short of breath, syncope or vomiting Review of Systems Const: Denies: fever(s), chills or diaphoresis ENMT: Denies: throat pain, ear or mastoid pain, nasal discharge or nasal congestion Card: Denies: chest pain or syncope Resp: Denies: dyspnea, productive cough or non-productive cough GI: Denies: nausea, vomiting or melena : Denies: dysuria Skin/Breast: Denies: rash or pruritus Neuro: Denies: headache(s) or confusion Jewel/Lymph: Denies: easy bruising PFSH ED PFSH: Medical History Afib Anemia Atrial fibrillation with RVR CAD (coronary artery disease) Chronic anticoagulation Eliquis CKD (chronic kidney disease) Congestive heart failure Diabetes Dyslipidemia Hematoma of left flank HTN (hypertension) Morbid obesity Morbid obesity PVD (peripheral vascular disease) 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) Status post insertion of drug-eluting stent into left anterior descending (LAD) artery Venous stasis Surgical History History of ankle surgery History of cataract surgery History of cholecystectomy History of heart artery stent History of umbilical hernia repair S/P hemodialysis catheter insertion (11/22/20) Right internal jugular vein d/c 12/25/20 Family History Other Cancer Diabetes Social History Smoking and tobacco status: never smoked Alcohol intake: never Marital status: / Physical Exam Const: COMMON NORMALS: no acute distress GENERAL APPEARANCE: cooperative and comfortable HENMT: COMMON NORMALS: normocephalic, atraumatic and hearing grossly normal bilaterally HEAD & SCALP: normocephalic and atraumatic Neck/C-Spine: COMMON NORMALS: no JVD Resp: COMMON NORMALS: normal respiratory effort, No retractions, No use of accessory muscles and clear to auscultation bilaterally AUSCULTATION: clear to auscultation bilaterally Cardio: COMMON NORMALS: no JVD, regular rate, regular rhythm and No murmurs present (Cardio) RATE: regular rate RHYTHM: regular rhythm GI: COMMON NORMALS: Soft to palpation and No hepatosplenomegaly present AUSCULTATION: Yes normoactive bowel sounds PALPATION: Yes Soft to palpation, No Tenderness to palpation present (GI), No Guarding due to palpation present (GI) and Yes No hepatosplenomegaly present Extremity: COMMON NORMALS: normal to inspection, capillary refill normal, no clubbing, cyanosis or edema and no calf tenderness GENERAL: Yes edema Skin: COMMON NORMALS: no rashes or lesions noted GENERAL SKIN EXAM: no rashes or lesions noted Course Vital Signs: Vital signs: Vital Signs Temperature 97.5 F L 03/03/21 08:00 Pulse Rate 62 03/03/21 11:00 Respiratory Rate 18 03/03/21 08:00 Blood Pressure 154/66 03/03/21 11:00 Pulse Oximetry 99 03/03/21 08:00 MDM - Weakness MDM Narrative: Medical decision making narrative: Admit for acute kidney injury and hyponatremia discussed with hospitalist will have nephrology consult as well orders written Lab Data: Labs: Lab Results 02/28/21 02/28/21 02/28/21 Range/Units 16:15 16:38 16:38 WBC 10.3 H (4.0-10.0) 10^3/ uL RBC 3.27 L (4.1-5.3) 10^6/u L Hgb 10.3 L (11.5-15.3) g/dL Hct 32.6 L (37.0-47.0) % MCV 99.7 H (81-99) fl MCH 31.5 (28.0-34.0) pg MCHC 31.6 (30.0-36.0) g/dL RDW 16.3 H (12.1-15.1) % Plt Count 404 H (130-400) 10^3/c mm MPV 10.3 (7.4-10.4) fL Neut % (Auto) 61.6 % Lymph % (Auto) 13.3 % [place] % (Auto) 6.9 % Eos % (Auto) 16.0 % Baso % (Auto) 0.5 % Neut # (Auto) 6.34 (1.8-7.7) 10^3/u L Lymph # (Auto) 1.4 (0.8-4.8) 10^3/u L [place] # (Auto) 0.7 (0.2-0.9) 10^3/u L Eos # (Auto) 1.7 H (0.0-0.8) 10^3/u L Baso # (Auto) 0.1 (0.0-0.1) 10^3/u L Nucleated RBC % (a uto) 0 % Nucleated RBCs # 0.0 /100WBC PT INR Sodium 125 L (136-145) mmol/L Potassium 3.9 (3.5-5.1) mmol/L Chloride 82 L (98-107) mmol/L Carbon Dioxide 27 (22-29) mmol/L Anion Gap 19.9 H (5-19) BUN 103 H* D (8-23) mg/dL Creatinine 4.5 H (0.5-0.9) mg/dL GFR Calculation Not Reportable Glucose 117 H (65-115) mg/dL Calculated Osmolal ity 293 (285-295) mOsm/k g Calcium 7.5 L (8.5-10.5) mg/dL Magnesium 1.9 (1.7-2.3) mg/dL Total Bilirubin 0.5 (0.15-1.2) mg/dL AST 22 (0-32) U/L ALT 6 (0-33) U/L Alkaline Phosphata se 153 H (35-105) IU/L Creatine Kinase 42 (26-192) U/L Total Protein 6.3 L (6.6-8.7) g/dL Albumin 2.3 L (3.5-5.2) g/dL Globulin 4.0 (1.3-4.6) g/dL Lipase 55 (13-60) U/L Urine Color Yellow (Yellow) Urine Appearance Clear (CLEAR) Urine pH 5 (5-7) Ur Specific Gravit y 1.020 (1.005-1.030) Urine Protein 2+ H (Negative) Urine Glucose (UA) Norm (Normal) Urine Ketones 1+ H (Negative) Urine Blood Neg (Negative) Urine Nitrate Negative (Negative) Urine Bilirubin 2+ H (Negative) Urine Urobilinogen 1 H (Negative) mg/dL Ur Leukocyte Priscilla ase 2+ H (Negative) Urine RBC 0-4 H (0-2) /hpf Urine WBC 5-10 H (0-5) /hpf Ur Squamous Epith Cells 0-4 H (0-5) /hpf Amorphous Sediment Not Reportable Urine Bacteria 3+ H (NONE) /hpf Digoxin (0.6-1.2) ng/mL 02/28/21 02/28/21 Range/Units 16:38 16:38 WBC (4.0-10.0) 10^3/ uL RBC (4.1-5.3) 10^6/u L Hgb (11.5-15.3) g/dL Hct (37.0-47.0) % MCV (81-99) fl MCH (28.0-34.0) pg MCHC (30.0-36.0) g/dL RDW (12.1-15.1) % Plt Count (130-400) 10^3/c mm MPV (7.4-10.4) fL Neut % (Auto) % Lymph % (Auto) % [place] % (Auto) % Eos % (Auto) % Baso % (Auto) % Neut # (Auto) (1.8-7.7) 10^3/u L Lymph # (Auto) (0.8-4.8) 10^3/u L [place] # (Auto) (0.2-0.9) 10^3/u L Eos # (Auto) (0.0-0.8) 10^3/u L Baso # (Auto) (0.0-0.1) 10^3/u L Nucleated RBC % (a uto) % Nucleated RBCs # /100WBC PT Cancelled INR Cancelled Sodium (136-145) mmol/L Potassium (3.5-5.1) mmol/L Chloride (98-107) mmol/L Carbon Dioxide (22-29) mmol/L Anion Gap (5-19) BUN (8-23) mg/dL Creatinine (0.5-0.9) mg/dL GFR Calculation Glucose (65-115) mg/dL Calculated Osmolal ity (285-295) mOsm/k g Calcium (8.5-10.5) mg/dL Magnesium (1.7-2.3) mg/dL Total Bilirubin (0.15-1.2) mg/dL AST (0-32) U/L ALT (0-33) U/L Alkaline Phosphata se (35-105) IU/L Creatine Kinase (26-192) U/L Total Protein (6.6-8.7) g/dL Albumin (3.5-5.2) g/dL Globulin (1.3-4.6) g/dL Lipase (13-60) U/L Urine Color (Yellow) Urine Appearance (CLEAR) Urine pH (5-7) Ur Specific Gravit y (1.005-1.030) Urine Protein (Negative) Urine Glucose (UA) (Normal) Urine Ketones (Negative) Urine Blood (Negative) Urine Nitrate (Negative) Urine Bilirubin (Negative) Urine Urobilinogen (Negative) mg/dL Ur Leukocyte Priscilla ase (Negative) Urine RBC (0-2) /hpf Urine WBC (0-5) /hpf Ur Squamous Epith Cells (0-5) /hpf Amorphous Sediment Urine Bacteria (NONE) /hpf Digoxin 1.6 H (0.6-1.2) ng/mL Discharge Plan Discharge Patient Disposition: Admitted As Inpatient Admit Provider: Woody Boykin Clinical Impression: TIFFANY (acute kidney injury), Acute hyponatremia Condition: Stable Coding Level of Care Code ED Museum Docent for Chg Fwd Exam Comprehensive
--- NOTE | 2021-02-28 16:04 | PC.PHAR ---
PT FROM [facility]. I DID MEDS USING THE [facility] AND [facility] FROM THERE.
[2021-02-28 16:48] LABS: Basophils # 0.1 10^3/uL (0.0-0.1); Basophils % 0.5 %; Eosinophils # 1.7 10^3/uL (0.0-0.8); Hematocrit 32.6 % (37.0-47.0); Hemoglobin 10.3 g/dL (11.5-15.3); Lymphocytes # 1.4 10^3/uL (0.8-4.8); Lymphocytes % 13.3 %; Mean Corpuscular HGB Conc 31.6 g/dL (30.0-36.0); Mean Corpuscular Hemoglobin 31.5 pg (28.0-34.0); Mean Corpuscular Volume 99.7 fl (81-99); Mean Platelet Volume 10.3 fL (7.4-10.4); Monocytes # 0.7 10^3/uL (0.2-0.9); Monocytes % 6.9 %; Neutrophils # 6.34 10^3/uL (1.8-7.7); Neutrophils % 61.6 %; Nucleated Red Blood Cells % 0 %; Platelet Count 404 10^3/cmm (130-400); Red Blood Count 3.27 10^6/uL (4.1-5.3); Red Cell Distribution Width 16.3 % (12.1-15.1); White Blood Count 10.3 10^3/uL (4.0-10.0)
[2021-02-28 17:06] LABS: Alanine Aminotransferase 6 U/L (0-33); Albumin Level 2.3 g/dL (3.5-5.2); Alkaline Phosphatase 153 IU/L (35-105); Anion Gap 19.9 (5-19); Aspartate Amino Transferase 22 U/L (0-32); Calcium 7.5 mg/dL (8.5-10.5); Carbon Dioxide 27 mmol/L (22-29); Chloride 82 mmol/L (98-107); Creatine Phosphokinase 42 U/L (26-192); Glucose 117 mg/dL (65-115); Lipase 55 U/L (13-60); Magnesium 1.9 mg/dL (1.7-2.3); Osmolality Calculated 293 mOsm/kg (285-295); Potassium 3.9 mmol/L (3.5-5.1); Sodium 125 mmol/L (136-145); Total Bilirubin 0.5 mg/dL (0.15-1.2); Total Protein 6.3 g/dL (6.6-8.7)
[2021-02-28 17:16] LABS: Add Urine Culture? Yes; Add Urine Microscopic? YES; Bacteria Urine 3+ /hpf; Bilirubin Urine 2+ (Negative); Blood Urine Neg (Negative); Glucose Urine UA Norm (Normal); Ketones Urine 1+ (Negative); Leukocyte Esterase Urine 2+ (Negative); Nitrate Urine Negative (Negative); Protein Urine 2+ (Negative); RBC Urine 0-4 /hpf (0-2); Squamous Epithelial Cell Urine 0-4 /hpf (0-5); Urine Appearance Clear (CLEAR); Urine Color Yellow (Yellow); Urobilinogen Urine 1 mg/dL (Negative); pH Urine 5 (5-7)
[2021-02-28 17:18] LABS: Blood Urea Nitrogen 103 mg/dL (8-23)
[2021-02-28 17:38] LABS: Digoxin 1.6 ng/mL (0.6-1.2)
--- NOTE | 2021-02-28 18:36 | PM.CONSULT ---
Providers/Reason For Consult Consulting Physician/Specialty*: linda chambers md / telenephrology Reason for Consult*: TIFFANY on CKD, Hyponatremia Requesting Physician: Dr. Lindquist Primary Care Provider: Pascual Kay MD History of Present Illness History of Present Illness Carole Lee is a 75 year old female h/o CKD stage 3- recent cr 1.5 - 2 mg/dl. h/o temp HD needs in November 2020. h/o DM, anemia, uti, left flank hematoma, a fib, chronic sytolic CHF ( EF 35-40% , hypothyroidism, and orthostatic hypotension. I last saw the pt on 12/13/20- when we took her off of dialysis. She had her permacath removed on December 25, [address] Scottie Corrales. Pt sent from [place] today w/ weakness, poor uop, fatigue, poor appetite. In Er she was found to have a na of 125, and bun and cr of 103/ 4.5 mg/dl. On February 12, 2021- her na was 135, and bun and cr 49/ 1.8 mg/dl. renal is called to consult for TIFFANY and hyponatremia. Review of Systems General: Reports: 10 or more systems reviewed and unremarkable except in HPI and below Narrative: weakness, poor appetite, RODARTE, no orthopnea, palps, difficulty urinating- has a charlton, + edema Meds/Allergies Home Medications and Allergies Home Medications Medication Instructions Recorded Confirmed Last Taken Type levothyroxine 225 mcg PO DAILY@0500 09/08/19 02/28/21 02/28/21 History clopidogrel 75 mg PO DAILY@0800 11/29/20 02/28/21 02/28/21 History gabapentin 100 mg capsule 100 mg PO BID@799,1999 cap 12/05/20 02/28/21 02/28/21 History atorvastatin 80 mg PO BEDTIME@20 12/07/20 02/28/21 02/27/21 History insulin aspart U-100 [Novolog See Rx Instructions .ROUTE .COMPLEX 12/07/20 02/28/21 02/28/21 12:00 History U-100 Insulin aspart] 8 UNITS Levemir Flexpen See Rx Instructions .ROUTE .COMPLEX 01/07/21 02/28/21 02/28/21 History bumetanide 2 mg PO BID@0800,199901/16/21 02/28/21 02/28/21 History calcitriol 0.25 mcg PO DAILY@79901/16/21 02/28/21 02/28/21 History digoxin 125 mcg PO DAILY@79901/16/21 02/28/21 02/28/21 History acetaminophen 650 mg PO Q6H PRN 02/28/21 02/28/21 Unknown History amino acids-protein hydrolys 15 ea PO BID@799,199902/28/21 02/28/21 02/28/21 History [Pro-Stat AWC] aspirin 81 mg PO DAILY@79902/28/21 02/28/21 02/28/21 History bisacodyl 10 mg IN DAILY PRN 02/28/21 02/28/21 Unknown History citalopram 10 mg PO DAILY@79902/28/21 02/28/21 02/28/21 History diltiazem HCl [Cardizem CD] 120 mg PO BID@799,199902/28/21 02/28/21 02/28/21 History docusate sodium 100 mg PO BID@799,199902/28/21 02/28/21 02/28/21 History magnesium hydroxide [Milk of 400 mg PO DAILY PRN 02/28/21 02/28/21 Unknown History Magnesia] meclizine 12.5 mg PO TID PRN 02/28/21 02/28/21 Unknown History metolazone 2.5 mg PO DAILY@79902/28/21 02/28/21 02/28/21 History metoprolol succinate 25 mg PO DAILY@79902/28/21 02/28/21 02/28/21 History multivitamin,tn-zppy-Bf-FA-min 1 tab PO DAILY@79902/28/21 02/28/21 02/28/21 History [Multivitamin And Mineral] nitrofurantoin monohyd/m-cryst 100 mg PO BID@799,199902/28/21 02/28/21 02/28/21 History [Macrobid] pantoprazole 40 mg PO DAILY@79902/28/21 02/28/21 02/28/21 History phenytoin 50 mg PO BID@799,199902/28/21 02/28/2121 History sodium phosphates [Enema 118 ml IN DAILY PRN 02/28/21 02/28/21 Unknown History Disposable] Allergies Allergy/AdvReac Type Severity Reaction Status Date / Time gentamicin Allergy Unknown Verified 12/25/20 11:48 hydromorphone [From Dilaudid] Allergy Unknown Verified 12/25/20 11:48 PFSH Acute PFSH: Medical History Afib Anemia Atrial fibrillation with RVR CAD (coronary artery disease) Chronic anticoagulation Eliquis CKD (chronic kidney disease) Congestive heart failure Diabetes Dyslipidemia Hematoma of left flank HTN (hypertension) Morbid obesity Morbid obesity PVD (peripheral vascular disease) 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) Status post insertion of drug-eluting stent into left anterior descending (LAD) artery Venous stasis Surgical History History of ankle surgery History of cataract surgery History of cholecystectomy History of heart artery stent History of umbilical hernia repair S/P hemodialysis catheter insertion (11/22/20) Right internal jugular vein d/c 12/25/20 Family History Other Cancer Diabetes Social History Smoking and tobacco status: never smoked Alcohol intake: never Marital status: / Vitals/I&O/Wt Last Vital Signs Pulse 58 L 02/28/21 14:44 Resp 16 02/28/21 14:44 BP 138/46 02/28/21 14:44 Pulse Ox 100 02/28/21 14:44 Weight last 48 hrs Weight 137.756 kg Physical Exam Narrative: EXAM NARRATIVE: obese female , NARD vs noted- hr slow heent- nc/at, eomi, anicteric neck supple lungs basal dullness heart irreg irreg, +ALEX abd- soft, nt, nd, +BS ext 1+ b/l edema neuro- a,a, o x 2+ A&P Additional A&P Information 75 yr old female 1. 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 TIFFANY- likely over diuresed- hold diuretics -flush charlton -check urine electrolytes -check ck - I will check phos- pt on phos based enema PRN- this can cause hyperphosphatemia and TIFFANY -HOLD FLEETS ENEMA 3. hyponatremia- check ur lytes -d/c diuretics- hold metolazone -give ns ivf -check tsh and cortisol levels 4. high dig level- from tiffany- hold dig. give ivf 5. hypothyroidism- check tsh on high dose levothyroxine 6. likely uti- change charlton -abx per medicine 7. renal bone- mineral- metabolism- hold calcitriol. -check phos and pth ca 7.5- check vit d levels 8. dm care 9. anemia- check iron studies, b12, folate, spep, upep, b12, folate. high mcv noted 10. check inr- high seen and examined w/ RN -telehealth visit time spent 55 minutes Consult Attestations Medical Necessity Statement: tiffany, high dig level, hyponatremia Time Spent in Patient Care: Greater than 35 minutes Coding Level of Care Code Acute Territory Business Manager for Sosa Bates
[2021-02-28 19:53] LABS: Anion Gap 16.5 (5-19); Calcium 7.2 mg/dL (8.5-10.5); Carbon Dioxide 29 mmol/L (22-29); Chloride 86 mmol/L (98-107); Creatine Phosphokinase 32 U/L (26-192); Glucose 119 mg/dL (65-115); Osmolality Calculated 297 mOsm/kg (285-295); Potassium 3.5 mmol/L (3.5-5.1); Sodium 128 mmol/L (136-145); Thyroid Stimulating Hormone 5.55 uIU/mL (0.27-4.20); Vitamin B12 1654 pg/mL (232-1245)
--- NOTE | 2021-02-28 20:07 | P.HP_ITS ---
Providers/Chief Complaint Admitting Physician: Woody Boykin Primary Care Provider: Pascual Kay MD Chief Complaint: LETHARGIC/ DECREASED URINE OUTPUT History of Present Illness Pleasant 75-year-old lady presenting with fatigue from [facility] due to generalized weakness, dizziness, low urine output, with history of chronic kidney disease, at one point with acute kidney injury transiently requiring hemodialysis, history of CAD, LAD stenting in November, on Plavix, chronic systolic CHF, EF 35-40%, atrial fibrillation, previously on anticoagulation, but recently with fall prior to last admission, left flank hematoma, anticoagulation was discontinued at that time, subsequently again restarted on anticoagulation with warfarin after transfer from ER on 01/27 due to right upper extremity radial and ulnar artery occlusion, underwent embolectomy at [facility], and continued on warfarin from there on in addition to Plavix. She reports emboli were considered of cardiac origin. Per shelter supratherapeutic INR, so at the moment warfarin on hold, INR yesterday was 6, recently with severe orthostatic hypotension as well, on fludrocortisone, has had multiple recent admissions, in late December, with noted worsening fluid overload, weight gain, peripheral edema, despite diuresis at which point diuretics were escalated with increasing Bumex dose to 3 mg twice daily, metolazone added as needed, at that time, she returned to the hospital 01/16 and was hospitalized until 01/25 after presenting with dizziness, fatigue, after a fall, with syncopal episode noted with severe orthostatic hypotension, diuretics were held at that time due to noted overdiuresis, also noted anemia, with left leg hematoma for which received PRBC transfusion, at the time Eliquis was discontinued, but was continued on Plavix given recent stent. Did not respond to midodrine, had to be started on fludrocortisone. During the same hospitalization also treated for urinary tract infection. Her condition gradually improved, TIFFANY improved. She was discharged with fludrocortisone, metoprolol and digoxin for atrial fibrillation with RVR, was continued on Bumex for CHF, other history includes hypothyroidism. Morbid obesity. She subsequently has been undergoing rehabilitation at [facility] due to generalized deconditioning and decline in functional capacity. At the shelter she had received her Covid vaccination. Recently at the shelter she reportedly was doing well up until several days ago when she had sustained a fall. Imaging of affected extremity did not reveal fracture per report. She had felt weaker since then, has not been getting up. Required temporary Acevedo catheter placement. Urine output was good up until last 2 days where it had been declining, with very low output noted today. In case she were unable to make decisions for herself, names her son Jimi as a surrogate decision-maker. Review of Systems Const: Reports: fatigue; Denies: fever(s), chills, body aches or malaise Eyes: Denies: change in vision or eye redness ENMT: Denies: throat pain, oral sores or ear or mastoid pain Card: Denies: chest pain, edema, pre-syncope or dyspnea on exertion Resp: Denies: dyspnea, productive cough, change in phlegm color or hemoptysis GI: Denies: abdominal pain, nausea, vomiting, diarrhea, constipation, hematochezia or melena : Reports: oliguria; Denies: urinary frequency or hematuria Musc: Reports: back pain; Denies: joint swelling or joint redness Skin/Breast: Reports: erythema (Mild redness left ankle. Wearing heel protectors.) and dry skin; Denies: rash, sores or new lesions Neuro: Denies: headache(s), numbness in extremities, weakness in extremities, dizziness, confusion or seizure-like activity Endo: Denies: polyuria or polydipsia Jewel/Lymph: Denies: easy bleeding or purpura All/Imm: Denies: urticaria, throat swelling or tongue swelling Medications/Allergies Home Medications Medication Instructions Recorded Confirmed Last Taken Type levothyroxine 225 mcg PO DAILY@0500 09/08/19 02/28/21 02/28/21 History clopidogrel 75 mg PO DAILY@0800 11/29/20 02/28/21 02/28/21 History gabapentin 100 mg capsule 100 mg PO BID@08,1999 cap 12/05/20 02/28/21 02/28/21 History atorvastatin 80 mg PO BEDTIME@12/07/20 02/28/21 02/27/21 History insulin aspart U-100 [Novolog See Rx Instructions .ROUTE .COMPLEX 12/07/20 02/28/21 02/28/21 12:00 History U-100 Insulin aspart] 8 UNITS Levemir Flexpen See Rx Instructions .ROUTE .COMPLEX 01/07/21 02/28/21 02/28/21 History bumetanide 2 mg PO BID@08,199901/16/21 02/28/21 02/28/21 History calcitriol 0.25 mcg PO DAILY@79901/16/21 02/28/21 02/28/21 History digoxin 125 mcg PO DAILY@79901/16/21 02/28/21 02/28/21 History acetaminophen 650 mg PO Q6H PRN 02/28/21 02/28/21 Unknown History amino acids-protein hydrolys 15 ea PO BID@08,199902/28/21 02/28/21 02/28/21 History [Pro-Stat AWC] aspirin 81 mg PO DAILY@79902/28/21 02/28/21 02/28/21 History bisacodyl 10 mg [place] DAILY PRN 02/28/21 02/28/21 Unknown History citalopram 10 mg PO DAILY@79902/28/21 02/28/21 02/28/21 History diltiazem HCl [Cardizem CD] 120 mg PO BID@08,199902/28/21 02/28/21 02/28/21 History docusate sodium 100 mg PO BID@799,199902/28/21 02/28/21 02/28/21 History magnesium hydroxide [Milk of 400 mg PO DAILY PRN 02/28/21 02/28/21 Unknown History Magnesia] meclizine 12.5 mg PO TID PRN 02/28/21 02/28/21 Unknown History metolazone 2.5 mg PO DAILY@79902/28/21 02/28/21 02/28/21 History metoprolol succinate 25 mg PO DAILY@79902/28/21 02/28/21 02/28/21 History multivitamin,hg-zjjf-Bt-FA-min 1 tab PO DAILY@79902/28/21 02/28/21 02/28/21 History [Multivitamin And Mineral] nitrofurantoin monohyd/m-cryst 100 mg PO BID@799,199902/28/21 02/28/21 02/28/21 History [Macrobid] pantoprazole 40 mg PO DAILY@79902/28/21 02/28/21 02/28/21 History phenytoin 50 mg PO BID@0800,199902/28/21 02/28/21 02/28/21 History sodium phosphates [Enema 118 ml [place] DAILY PRN 02/28/21 02/28/21 Unknown History Disposable] Allergies Allergy/AdvReac Type Severity Reaction Status Date / Time gentamicin Allergy Unknown Verified 12/25/20 11:48 hydromorphone [From Dilaudid] Allergy Unknown Verified 12/25/20 11:48 PFSH Acute PFSH: Medical History Afib Anemia Atrial fibrillation with RVR CAD (coronary artery disease) Chronic anticoagulation Eliquis CKD (chronic kidney disease) Congestive heart failure Diabetes Dyslipidemia Hematoma of left flank HTN (hypertension) Morbid obesity Morbid obesity PVD (peripheral vascular disease) 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) Status post insertion of drug-eluting stent into left anterior descending (LAD) artery Venous stasis Surgical History History of ankle surgery History of cataract surgery History of cholecystectomy History of heart artery stent History of umbilical hernia repair S/P hemodialysis catheter insertion (11/22/20) Right internal jugular vein d/c 12/25/20 Family History Other Cancer Diabetes Social History Smoking and tobacco status: never smoked Alcohol intake: never Marital status: / Vitals/I&O/Wt Last Vital Signs Pulse 58 L 02/28/21 14:44 Resp 16 02/28/21 14:44 BP 138/46 02/28/21 14:44 Pulse Ox 100 02/28/21 14:44 Weight last 48 hrs Weight 137.756 kg Physical Exam Const: COMMON NORMALS: no acute distress, patient oriented x3 and alert GENERAL APPEARANCE: cooperative NUTRITIONAL APPEARANCE: obese morbidly obese ORIENTATION/CONSCIOUSNESS: Yes awake HENMT: COMMON NORMALS: oropharynx normal Neck/C-Spine: COMMON NORMALS: no JVD Resp: COMMON NORMALS: normal respiratory effort and clear to auscultation bilaterally AUSCULTATION: clear to auscultation bilaterally Cardio: COMMON NORMALS: no JVD, regular rhythm, S1 normal heart sound present, S2 normal heart sound present and No murmurs present (Cardio) RHYTHM: regular rhythm HEART SOUNDS: S1 normal heart sound present and S2 normal heart sound present GI: COMMON NORMALS: Normal to inspection, nondistended, normoactive bowel sounds present, Soft to palpation and non-tender PALPATION: Yes Soft to palpation Extremity: COMMON NORMALS: no joint enlargement and no pedal edema Neuro: COMMON NORMALS: patient oriented x3 and moves all extremities Skin: COMMON NORMALS: no rashes or lesions noted GENERAL SKIN EXAM: no rashes or lesions noted, dry skin and erythema (Mild redness at lateral left ankle. Heel protectors are on. No pressure s) Data : 02/28/21 16:38 02/28/21 19:07 A&P Assessment and plan (1) TIFFANY (acute kidney injury): Acute kidney injury on chronic kidney disease. Appreciate nephrology recommendations. Hold diuretics. Hold phosphate enemas. P.o. intake as tolerating. Monitor urine output. Maintain Acevedo. Kidney ultrasound. CK. Status: Acute (2) Acute hyponatremia: Sodium 125. Suspected hypovolemic hyponatremia. Hold diuretics. [place] oral intake. Recheck sodium. Monitor frequently. Check TSH. Status: Acute (3) Supratherapeutic INR: Hold warfarin. Monitor INR. Recently required embolectomy on 01/27 done at [facility] after transfer from here. Emboli considered of cardiac origin. Was started on warfarin there. Status: Acute Additional A&P Information Pyuria: Possible UTI. 0-4 squamous patella cells in urine sample. 5-tell WBC. Nitrate is negative. Positive leukocyte esterase. 3+ bacteria. Change Acevedo. Recheck UA. Recently with Olinda albicans UTI. Add fluconazole. For now empirically ceftriaxone. CAD with LAD stenting in November: Continue Plavix, statin, beta-efe Supratherapeutic digoxin level: Hold digoxin. Would discontinue at discharge due to unstable renal function. Atrial fibrillation: Continue metoprolol. Resume warfarin once level therapeutic. Has been on 2 mg daily. Orthostatic hypotension: Has been on fludrocortisone recently due to persistent severe orthostatic hypotension. CHF: Chronic systolic congestive heart failure, EF 35-40%. Currently not in exacerbation. Hold diuretics. Caution with diuretic therapy as is easy to become overdiuresis. At least some of the edema may be nonpitting, as well as difficult may be difficult to client services manager in the setting of obesity. Avoid overdiuresis. Diabetes: SSI, diabetic diet. Recent hematoma of left flank: On reassessment CT 01/27 had not changed. She states has pretty much resolved. Morbid obesity Attestations Medical Necessity Statement*: Admission of over 2 midnights will be needed for assessment of management of acute kidney injury on chronic kidney disease, acute hyponatremia in a lady with underlying cardiomyopathy, chronic static CHF, with supratherapeutic INR, underlying CAD need for continued Plavix due to recent stenting, recent history of flank hematoma, recent history of arterial embolic disease, with number of additional comorbidities as above. Coding Level of Care Code Acute Plant Guide for Chg Fwd Diagnoses TIFFANY (acute kidney injury) N17.9 Acute hyponatremia E87.1 Supratherapeutic INR R79.1
[2021-02-28 20:24] LABS: Uric Acid 17.1 mg/dL (2.4-5.7)
[2021-02-28 20:39] LABS: Folate Level 10.1 ng/mL (4.8-37.3)
[2021-02-28 20:41] LABS: Blood Urea Nitrogen 95 mg/dL (8-23)
[2021-02-28] MEDS: cefTRIAXone 1,000 MG in sodium chloride 0.9% (plus) 50 ML 100 MG IV (21:12)
[2021-02-28] MEDS: sodium chloride 0.9% 1,000 ML 999 ML IV (21:13)
[2021-02-28] MEDS: fluconazole 100 mg Tablet PO (21:13)
[2021-02-28] MEDS: HYDROcodone-acetaminophen 5-325 mg Tablet 1 TAB PO (21:13)
[2021-02-28 21:46] VITALS: BMI 47.5
[2021-02-28 22:00] VITALS: PULSE 71
--- NOTE | 2021-02-28 23:00 | PC.NURSE ---
PT ARRIVED WITH VILLELA CATHETER IN PLACE. CATHETER DC'D PER ORDER AND REPLACED WITH NEW 16 FR VILLELA UTILIZING STERILE TECHNIQUE.
[2021-02-28 23:02] VITALS: BP 133/77; PULSE 60; RESP 18; TEMP 37.2; O2SAT 97
[2021-02-28] MEDS: sodium chloride 0.9% 1,000 ML 30 ML IV (23:20)
[2021-03-01] VITALS: BP 128/65; PULSE 58; RESP 18; TEMP 35.6; O2SAT 95
[2021-03-01 00:02] LABS: Sodium 127 mmol/L (136-145)
[2021-03-01 01:26] LABS: Charge for UA Resulting for Rev
[2021-03-01 01:36] LABS: Add Urine Microscopic? YES; Bilirubin Urine 1+ (Negative); Blood Urine 3+ (Negative); Glucose Urine UA Norm (Normal); Ketones Urine Negative (Negative); Leukocyte Esterase Urine 2+ (Negative); Nitrate Urine Negative (Negative); Protein Urine 1+ (Negative); Specific Gravity, Urine 1.015 (1.005-1.030); Urine Appearance Hazy (CLEAR); Urine Color Yellow (Yellow); Urobilinogen Urine Norm (Negative); pH Urine 5 (5-7)
[2021-03-01 01:54] LABS: Potassium, Radom Urine 28 mmol/L; Urine Creatinine 159 mg/dL (28-217); Urine Random Chloride 31 mmol/L; Urine Random Sodium 45 mmol/L
[2021-03-01 02:04] LABS: Urine Protein Random 80 mg/dL
[2021-03-01 04:00] VITALS: BP 110/44; PULSE 45; RESP 16; TEMP 35.7; O2SAT 94
[2021-03-01] MEDS: levothyroxine 25 mcg Tablet PO (05:30)
[2021-03-01 06:16] LABS: Basophils # 0.1 10^3/uL (0.0-0.1); Basophils % 0.6 %; Hemoglobin 9.3 g/dL (11.5-15.3); Lymphocytes # 1.7 10^3/uL (0.8-4.8); Mean Corpuscular Hemoglobin 30.7 pg (28.0-34.0); Mean Platelet Volume 10.4 fL (7.4-10.4); Monocytes # 0.7 10^3/uL (0.2-0.9); Monocytes % 7.5 %; Neutrophils # 4.69 10^3/uL (1.8-7.7); Neutrophils % 50.7 %; Nucleated Red Blood Cells % 0 %; Platelet Count 347 10^3/cmm (130-400); Red Blood Count 3.03 10^6/uL (4.1-5.3); Red Cell Distribution Width 16.4 % (12.1-15.1); White Blood Count 9.2 10^3/uL (4.0-10.0)
--- NOTE | 2021-03-01 06:27 | PC.NURSE ---
shift note patient alert and oriented to self,able to verbalize which care home she lives in, unaware of reason for coming to hospital initially, mental status improving. patient received ns bolus in ER along with rocephin, suspected UTI,
[2021-03-01 06:39] LABS: Calcium 6.6 mg/dL (8.5-10.5)
[2021-03-01 06:45] LABS: Glucose Point of Care 114 mg/dL (70-110)
[2021-03-01 06:46] LABS: Parathyroid Hormone 174.7 pg/mL (15-65)
[2021-03-01 06:51] LABS: 25 Hydroxy Vitamin D 29 ng/mL (30-100); Alanine Aminotransferase < 5 U/L (0-33); Alkaline Phosphatase 126 IU/L (35-105); Anion Gap 13.1 (5-19); Aspartate Amino Transferase 21 U/L (0-32); Calcium 6.8 mg/dL (8.5-10.5); Carbon Dioxide 29 mmol/L (22-29); Chloride 89 mmol/L (98-107); Creatine Phosphokinase 29 U/L (26-192); Ferritin 737 ng/mL (15-150); Globulin 3.3 g/dL (1.3-4.6); Glucose 89 mg/dL (65-115); Iron 70 ug/dL (37-145); Magnesium 1.8 mg/dL (1.7-2.3); Osmolality Calculated 295 mOsm/kg (285-295); Percent Saturation 56.9 % (20-50); Phosphorus 3.9 mg/dL (2.5-4.5); Potassium 3.1 mmol/L (3.5-5.1); Sodium 128 mmol/L (136-145); Total Bilirubin 0.4 mg/dL (0.15-1.2); Total Iron Binding Capacity 123 mcg/dl; Total Protein 5.3 g/dL (6.6-8.7); Unsaturated Iron Binding 53 ug/dL (112-347)
[2021-03-01 06:52] LABS: Cortisol Random 17.23 ug/dL (2.47-19.5)
[2021-03-01 06:55] LABS: INR 5.68 (0.8-1.2)
[2021-03-01 07:20] LABS: Digoxin 1.6 ng/mL (0.6-1.2)
[2021-03-01 07:21] LABS: Blood Urea Nitrogen 96 mg/dL (8-23)
[2021-03-01 07:37] VITALS: BP 119/68; PULSE 55; RESP 14; TEMP 36.7; O2SAT 94
--- NOTE | 2021-03-01 07:49 | PM.PN ---
Subjective Subjective: Interval history: not urinating much. not sob. + weak Medications: Reviewed: Yes Medication Review Details: Current Medications Acetaminophen (Acetaminophen 325 Mg Tablet) 650 mg PO Q6H PRN PRN Reason: Mild/Mod Pain Or Temp >/= 101 Hydrocodone Bitart/Acetaminophen (Hydrocodone-Acetaminophen 5-325 Mg Tablet) 1 tab PO Q4H PRN PRN Reason: MODERATE PAIN Last Admin: 02/28/21 21:13 Dose: 1 tab Documented by: Atorvastatin Calcium (Atorvastatin 40 Mg Tablet) 80 mg PO BEDTIME@20 [facility] Bisacodyl (Bisacodyl 10 Mg Supp) 10 mg LA DAILY PRN PRN Reason: Constipation Citalopram Hydrobromide (Citalopram 20 Mg Tablet) 10 mg PO DAILY@0800 [facility] Clopidogrel Bisulfate (Clopidogrel 75 Mg Tablet) 75 mg PO DAILY@0800 [facility] Dextrose (Dextrose 50% Syringe 50 Ml) 25 ml IVP ONCE PRN; Protocol PRN Reason: hypoglycemia protocol Dextrose (Dextrose 50% Syringe 50 Ml) 50 ml IVP PRN PRN; Protocol PRN Reason: hypoglycemia protocol Fluconazole (Fluconazole 100 Mg Tablet) 100 mg PO Q24H [facility] Last Admin: 02/28/21 21:13 Dose: 100 mg Documented by: Glucagon (Glucagon 1 Mg/Ml Inj 1 Ml) 1 mg IM ONCE PRN; Protocol PRN Reason: Adult Acute Hypoglycemia Prot. Sodium Chloride (Sodium Chloride 0.9%) 1,000 mls @ 30 mls/hr IV .Q24H [facility] Last Admin: 02/28/21 23:20 Dose: 30 mls/hr Documented by: Ceftriaxone Sodium 1,000 mg/ (Sodium Chloride) 50 mls @ 100 mls/hr IV Q24H [facility]; Protocol Last Infusion: 02/28/21 23:20 Dose: Infused Documented by: Dextrose ([email or web address]) 500 mls @ 100 mls/hr IV ONCE PRN; Protocol PRN Reason: Adult Acute Hypoglycemia Prot Insulin Aspart (Insulin Aspart 100 Unit/1 Ml) 0 unit SUBCUT TIDWM [facility]; Protocol Levothyroxine Sodium (Levothyroxine 25 Mcg Tablet) 25 mcg PO DAILY@0500 [facility] Last Admin: 03/01/21 05:30 Dose: 25 mcg Documented by: Multivitamins (Z-Mzjanpt-Plhpuyh C Tablet) 1 each PO DAILY [facility] Ondansetron HCl (Ondansetron 2 Mg/Ml Sdv 2 Ml) 4 mg IVP Q6H PRN PRN Reason: NAUSEA AND VOMITING Pantoprazole Sodium (Pantoprazole Dr 40 Mg Tablet) 40 mg PO DAILY@0800 [facility] Vitals/I&O/Wt Last Vital Signs Temp 98.1 F 03/01/21 07:37 Pulse 55 L 03/01/21 07:37 Resp 14 03/01/21 07:37 BP 119/68 03/01/21 07:37 Pulse Ox 94 03/01/21 07:37 02/28/21 03/01/21 03/01/21 22:59 06:59 14:59 Intake Total 1050 / 1050 Balance 1050 / 1050 Weight last 48 hrs Weight 139.48 kg Weight 137.75 kg Weight 137.756 kg Physical Exam Narrative: EXAM NARRATIVE: obese female , NARD vs noted- hr stable heent- nc/at, eomi, anicteric neck supple lungs improved air movement b/l heart irreg irreg, +ALEX abd- soft, nt, nd, +BS ext 1+ b/l edema - decreased from yesterday neuro- a,a, o x 3, no asterixis Urinary Catheter Management^: Charlton: Cath Placed During This Visit: yes Reason for Continuing Indwelling Catheter: Acute Urinary Retention or Obstruction Urinary Catheter Date of Insertion: 02/28/21 Urinary Catheter Time of Insertion: 22:40 Data : 03/01/21 05:46 03/01/21 05:46 A&P Additional A&P Information 75 yr old female 1. 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 TIFFANY- likely over diuresed- hold diuretics -has a charlton- is oliguric -ua -1-2+ prot, 3+ blood after charlton -urine electrolytes -ur na 45 ur pr/ cr 80/159 - approx half gram proteinuria -check ck - I will check phos- pt on phos based enema PRN- this can cause hyperphosphatemia and TIFFANY -HOLD FLEETS ENEMA -cr slowly improving 3. hyponatremia- likely from diuretics and TIFFANY - tsh 4.7, await cortisol level 4. high dig level- from tiffany- hold dig. mild bradycardia- monitor 5. replace k and monitor 6. anemia - high tsat. may need BERTHA -hold coumadin- inr is high - check folate, spep, upep, b12 -high , folate. high mcv noted 7. hypothyroidism- controlled on levothyroxine 8. likely uti- charlton changed -abx per medicine - had ary UTI in December and January 7. renal bone- mineral- metabolism- -check phos and pth 175 ca 6.9, vit d level 29- give vit d and may need calcitriol 9. dm care 10. uric acid- 17- likely ant- monitor and allopurinol 100 daily seen and examined w/ RN -telehealth visit time spent 30 minutes Attestations Medical Necessity Statement*: tiffany, high dig level, ckd stage 3b, chf Time Spent in Patient Care: 16 - 35 minutes Coding Level of Care Code Acute Wool Washer Feeder for Katerineg Jana
[2021-03-01] MEDS: pantoprazole DR 40 mg Tablet PO (08:01)
[2021-03-01] MEDS: b-complex-vitamin c Tablet 1 EACH PO (08:01)
[2021-03-01] MEDS: clopidogrel 75 mg Tablet PO (08:01)
[2021-03-01 10:54] LABS: Glucose Point of Care 181 mg/dL (70-110)
[2021-03-01] MEDS: potassium chloride ER 20 mEq Tablet 40 MEQ PO (11:00)
[2021-03-01] MEDS: ergocalciferol (vitamin D2) 50,000 Unit Capsule 50000 UNIT PO (11:00)
[2021-03-01 11:58] VITALS: BP 111/65; PULSE 51; RESP 14; TEMP 36.7; O2SAT 97
--- NOTE | 2021-03-01 14:09 | PM.PN ---
Subjective Subjective: Interval history: She states she is doing okay. Denies any new complaints today. Denies trouble breathing. No chest pain. No abdominal pain. Vitals/I&O/Wt Last Vital Signs Temp 98.0 F 03/01/21 11:58 Pulse 51 L 03/01/21 11:58 Resp 14 03/01/21 11:58 BP 111/65 03/01/21 11:58 Pulse Ox 97 03/01/21 11:58 02/28/21 03/01/21 03/01/21 22:59 06:59 14:59 Intake Total 1050 / 1050 480 / 480 Balance 1050 / 1050 480 / 480 Weight last 48 hrs Weight 139.48 kg Weight 137.75 kg Weight 137.756 kg Physical Exam Const: COMMON NORMALS: no acute distress, patient oriented x3 and alert GENERAL APPEARANCE: cooperative NUTRITIONAL APPEARANCE: obese morbidly obese ORIENTATION/CONSCIOUSNESS: Yes awake HENMT: COMMON NORMALS: oropharynx normal Neck/C-Spine: COMMON NORMALS: no JVD Resp: COMMON NORMALS: normal respiratory effort and clear to auscultation bilaterally AUSCULTATION: clear to auscultation bilaterally Cardio: COMMON NORMALS: no JVD, regular rhythm, S1 normal heart sound present, S2 normal heart sound present and No murmurs present (Cardio) RHYTHM: regular rhythm HEART SOUNDS: S1 normal heart sound present and S2 normal heart sound present GI: COMMON NORMALS: Normal to inspection, nondistended, normoactive bowel sounds present, Soft to palpation and non-tender PALPATION: Yes Soft to palpation Extremity: COMMON NORMALS: no joint enlargement and no pedal edema Neuro: COMMON NORMALS: patient oriented x3 and moves all extremities SENSORIUM/ORIENTATION: Yes alert Skin: COMMON NORMALS: no rashes or lesions noted GENERAL SKIN EXAM: no rashes or lesions noted, dry skin and erythema (Mild redness at lateral left ankle. Heel protectors are on. No pressure s) Urinary Catheter Management^: Acevedo: Cath Placed During This Visit: yes Reason for Continuing Indwelling Catheter: Acute Urinary Retention or Obstruction Urinary Catheter Date of Insertion: 02/28/21 Urinary Catheter Time of Insertion: 22:40 Data : 03/01/21 05:46 03/01/21 05:46 Micro: Microbiology 02/28/21 16:15 Urine Culture - Preliminary Urine,Clean Catch Gram Negative Rods A&P Assessment and plan (1) TIFFANY (acute kidney injury): Mild improvement today. Receiving gentle IV hydration. Diuretics on hold. Acute kidney injury on chronic kidney disease. Appreciate nephrology recommendations. Hold diuretics. Hold phosphate enemas. P.o. intake as tolerating. Monitor urine output. Maintain Acevedo. Kidney ultrasound without obstruction. Medical renal disease. CK normal. Status: Acute (2) Acute hyponatremia: Mild improvement in hyponatremia up to 128. Receiving gentle NS infusion. Hold for now. Recheck sodium. Suspected hypovolemic hyponatremia. Hold diuretics. [place] oral intake. Recheck sodium. Monitor frequently. Mildly elevated TSH. Check free T4. Morning serum cortisol adequate. Status: Acute (3) Supratherapeutic INR: INR slightly better but still elevated. 5.7. Continue to hold warfarin. A.m. INR. Recently required embolectomy on 01/27 done at [facility] after transfer from here. Emboli considered of cardiac origin. Was started on warfarin there. Status: Acute Additional A&P Information Pyuria: Possible UTI. Gram-negative rods in urine. Acevedo changed. Repeat UA. Recently with Olinda albicans UTI. fluconazole. For now empirically ceftriaxone. CAD with LAD stenting in November: Continue Plavix, statin, beta-efe Supratherapeutic digoxin level: Hold digoxin. Monitor on telemetry. Hold beta-efe. Would discontinue at discharge due to unstable renal function. Atrial fibrillation: Continue metoprolol. Resume warfarin once level therapeutic. Has been on 2 mg daily. Orthostatic hypotension: Has been on fludrocortisone recently due to persistent severe orthostatic hypotension. CHF: Chronic systolic congestive heart failure, EF 35-40%. Currently not in exacerbation. Hold diuretics. Caution with diuretic therapy as is easy to become overdiuresis. At least some of the edema may be nonpitting, as well as difficult may be difficult to student in the setting of obesity. Avoid overdiuresis. Diabetes: SSI, diabetic diet. Recent hematoma of left flank: On reassessment CT 01/27 had not changed. She states has pretty much resolved. Morbid obesity Attestations Medical Necessity Statement*: Continue admission for assessment management of TIFFANY, hyponatremia, supratherapeutic INR, supratherapeutic digoxin in a lady with underlying chronic kidney disease, CAD with recent stent, atrial fibrillation, CHF, severe orthostatic hypotension, recent hematoma, recent embolic limb ischemia requiring chronic anticoagulation.. Coding Level of Care Code Acute Case Preparer And Liner for Chg Fwd Diagnoses TIFFANY (acute kidney injury) N17.9 Acute hyponatremia E87.1 Supratherapeutic INR R79.1
[2021-03-01 15:35] LABS: Sodium 124 mmol/L (136-145)
[2021-03-01 15:43] LABS: Free T4 Free Thyroxine 0.43 ng/dL (0.82-1.77)
[2021-03-01 15:53] VITALS: BP 110/64; PULSE 59; RESP 18; TEMP 36.9; O2SAT 94
[2021-03-01 16:49] LABS: Glucose Point of Care 120 mg/dL (70-110)
--- NOTE | 2021-03-01 18:58 | US_ITS ---
WS: [id number] RENAL ULTRASOUND HISTORY: kami COMPARISON: 04/12/2015 TECHNIQUE: 2-D and color Doppler imaging of the kidney submitted. Right kidney: 11.6 cm x 3.6 cm x 5.3 cm. Normal size kidney. Mild diffuse cortical thinning. Increased fat within the central renal pelvis. No obstruction or mass. Left kidney: 9.3 cm x 3.8 cm x 4.6 cm. Low normal renal size. Increased echogenicity throughout the kidney with poor cortical medullary diff erentiation. No mass identified. Mild diffuse thinning of the cortex. Aorta: Normal. Urinary Bladder: Minimally distended urinary bladder. US/US renal BI* [id number] IMPRESSION: 1. Bilateral mild chronic medical renal disease with cortical thinning and poo r cortical medullary differentiation. 2. No obstruction.
[2021-03-01 19:38] LABS: Alanine Aminotransferase < 5 U/L (0-33); Albumin Level 2.1 g/dL (3.5-5.2); Alkaline Phosphatase 130 IU/L (35-105); Anion Gap 16.9 (5-19); Aspartate Amino Transferase 24 U/L (0-32); Calcium 6.8 mg/dL (8.5-10.5); Carbon Dioxide 24 mmol/L (22-29); Chloride 88 mmol/L (98-107); Globulin 3.3 g/dL (1.3-4.6); Glucose 124 mg/dL (65-115); Osmolality Calculated 290 mOsm/kg (285-295); Potassium 3.9 mmol/L (3.5-5.1); Sodium 125 mmol/L (136-145); Total Bilirubin 0.4 mg/dL (0.15-1.2); Total Protein 5.4 g/dL (6.6-8.7)
[2021-03-01 19:49] LABS: Blood Urea Nitrogen 94 mg/dL (8-23)
[2021-03-01 20:00] VITALS: BP 99/39; PULSE 62; RESP 16; TEMP 36.3; O2SAT 81
[2021-03-01] MEDS: atorvastatin 40 mg Tablet 80 MG PO (20:13)
[2021-03-01] MEDS: cefTRIAXone 1,000 MG in sodium chloride 0.9% (plus) 50 ML 100 MG IV (20:13)
[2021-03-01] MEDS: fluconazole 100 mg Tablet PO (20:13)
[2021-03-01 20:28] LABS: Glucose Point of Care 148 mg/dL (70-110)
[2021-03-01 20:28] LABS: Glucose Point of Care 192 mg/dL (70-110)
--- NOTE | 2021-03-01 20:53 | PC.NURSE ---
i reported low temp 97.4 and low o2 81 to nurse
[2021-03-01 22:55] LABS: Digoxin 1.4 ng/mL (0.6-1.2)
[2021-03-02] VITALS (9 sets, daily range): BP systolic 121–148; BP diastolic 62–81; PULSE 49–82; RESP 16–20; TEMP 36.4–37; O2SAT 93–95
--- NOTE | 2021-03-02 01:02 | PC.NURSE ---
CARE OF PT TRANSFERRED OVER TO [facility] RAMACHANDRAN AT THIS TIME
--- NOTE | 2021-03-02 06:00 | XR_ITS ---
WS: [id number] Portable AP upright chest, 03/02/2021 Clinical Data: Hypoxia Comparison: Portable chest, 02/28/2021. Findings: There is minimal patchy opacity over the right diaphragm which could represent minimal pneu monia and/or atelectasis. The right diaphragm is elevated. The heart is enlarged. No nodules, masses or effusions are seen. The aortic arch shows calcification. Monitor leads are on the chest wall. XR/XR chest 1V portable [id number] Impression: 1. Minimal patchy right lower lobe opacity which could represent atelectasis an d/or early pneumonia. 2. Cardiomegaly and atherosclerosis.
[2021-03-02] MEDS: levothyroxine 25 mcg Tablet PO (06:14)
[2021-03-02 06:17] LABS: Glucose Point of Care 106 mg/dL (70-110)
[2021-03-02 06:55] LABS: Basophils # 0.1 10^3/uL (0.0-0.1); Basophils % 0.7 %; Eosinophils # 1.8 10^3/uL (0.0-0.8); Hematocrit 29.6 % (37.0-47.0); Hemoglobin 9.2 g/dL (11.5-15.3); Lymphocytes # 2.6 10^3/uL (0.8-4.8); Lymphocytes % 29.7 %; Mean Corpuscular HGB Conc 31.1 g/dL (30.0-36.0); Mean Corpuscular Hemoglobin 31.4 pg (28.0-34.0); Mean Platelet Volume 10.2 fL (7.4-10.4); Monocytes # 0.6 10^3/uL (0.2-0.9); Monocytes % 6.4 %; Neutrophils # 3.71 10^3/uL (1.8-7.7); Nucleated Red Blood Cells % 0 %; Platelet Count 353 10^3/cmm (130-400); Red Blood Count 2.93 10^6/uL (4.1-5.3); Red Cell Distribution Width 16.5 % (12.1-15.1); White Blood Count 8.9 10^3/uL (4.0-10.0)
[2021-03-02 07:13] LABS: Alanine Aminotransferase < 5 U/L (0-33); Albumin Level 2.1 g/dL (3.5-5.2); Alkaline Phosphatase 137 IU/L (35-105); Anion Gap 15.7 (5-19); Aspartate Amino Transferase 21 U/L (0-32); Carbon Dioxide 27 mmol/L (22-29); Chloride 90 mmol/L (98-107); Digoxin 1.4 ng/mL (0.6-1.2); Globulin 3.5 g/dL (1.3-4.6); Glucose 102 mg/dL (65-115); Magnesium 1.8 mg/dL (1.7-2.3); Osmolality Calculated 301 mOsm/kg (285-295); Phosphorus 3.9 mg/dL (2.5-4.5); Potassium 3.7 mmol/L (3.5-5.1); Sodium 129 mmol/L (136-145); Total Bilirubin 0.4 mg/dL (0.15-1.2); Total Protein 5.6 g/dL (6.6-8.7)
[2021-03-02 07:25] LABS: Blood Urea Nitrogen 104 mg/dL (8-23)
[2021-03-02 07:28] LABS: INR 3.55 (0.8-1.2)
[2021-03-02] MEDS: sodium chloride 1 gm Tablet PO ×2 (09:12→18:12)
[2021-03-02] MEDS: clopidogrel 75 mg Tablet PO (09:12)
[2021-03-02] MEDS: b-complex-vitamin c Tablet 1 EACH PO (09:12)
[2021-03-02] MEDS: pantoprazole DR 40 mg Tablet PO (09:13)
[2021-03-02 10:43] LABS: Glucose Point of Care 218 mg/dL (70-110)
--- NOTE | 2021-03-02 11:05 | P.PN_ITS ---
Subjective Subjective: Interval history: She states today overall she is doing okay. She is concerned about being very dizzy, even at [facility] she states anytime she tries to stand up she would get very lightheaded. States that this had contributed to her fall several days back. She was trying to transfer to the wheelchair at that time. Vitals/I&O/Wt Last Vital Signs Temp 97.9 F 03/02/21 07:20 Pulse 51 L 03/02/21 07:20 Resp 18 03/02/21 07:20 BP 127/71 03/02/21 07:20 Pulse Ox 93 03/02/21 07:20 03/01/21 03/02/21 03/02/21 22:59 06:59 14:59 Intake Total 290 / 770 Output Total 300 / 300 200 / 500 Balance -10 / 470 -200 / 270 Weight last 48 hrs Weight 141.322 kg Weight 139.48 kg Weight 137.75 kg Weight 137.756 kg Physical Exam Const: COMMON NORMALS: no acute distress, patient oriented x3 and alert GENERAL APPEARANCE: cooperative NUTRITIONAL APPEARANCE: obese morbidly obese ORIENTATION/CONSCIOUSNESS: Yes awake HENMT: COMMON NORMALS: oropharynx normal Neck/C-Spine: COMMON NORMALS: no JVD Resp: COMMON NORMALS: normal respiratory effort and clear to auscultation bilaterally AUSCULTATION: clear to auscultation bilaterally Cardio: COMMON NORMALS: no JVD, regular rhythm, S1 normal heart sound present, S2 normal heart sound present and No murmurs present (Cardio) RHYTHM: regular rhythm HEART SOUNDS: S1 normal heart sound present and S2 normal heart sound present GI: COMMON NORMALS: Normal to inspection, nondistended, normoactive bowel sounds present, Soft to palpation and non-tender PALPATION: Yes Soft to palpation Extremity: COMMON NORMALS: no joint enlargement and no pedal edema Neuro: COMMON NORMALS: patient oriented x3 and moves all extremities SENSORIUM/ORIENTATION: Yes alert Skin: COMMON NORMALS: no rashes or lesions noted GENERAL SKIN EXAM: no rashes or lesions noted, dry skin and erythema (Mild redness at lateral left ankle. Heel protectors are on. No pressure s) Urinary Catheter Management^: Acevedo: Cath Placed During This Visit: yes Reason for Continuing Indwelling Catheter: Acute Urinary Retention or Obstruction Urinary Catheter Date of Insertion: 02/28/21 Urinary Catheter Time of Insertion: 22:40 Data : 03/02/21 06:43 03/02/21 06:43 Micro: Microbiology 02/28/21 16:15 Urine Culture - Final Urine,Clean Catch Escherichia coli esbl A&P Assessment and plan (1) TIFFANY (acute kidney injury): Gradually improving. DC IV fluid. Oral intake is tolerating. Diuretics on hold. Acute kidney injury on chronic kidney disease. Appreciate nephrology recommendations. Hold phosphate enemas. Monitor urine output. Maintain Acevedo. Kidney ultrasound without obstruction. Medical renal disease. CK normal. Status: Acute (2) Acute hyponatremia: Hyponatremia with gradual improvement. Up to 129. DC IVF (history of sodium was decreasing with continued fluid). Started 1 g twice daily NaCl tab. Has persistent severe orthostatic hypotension which did not respond to midodrine previously, resume fludrocortisone. Hold diuretics. Mildly elevated TSH. A little bit low free T4. She is on high-dose levothy roxine, 225 mcg as per primary provider prescription. Here currently on 25 mcg only. Resume usual dose. Morning serum cortisol adequate. Status: Acute (3) Supratherapeutic INR: INR decreasing. Down to 3.55. Discussed with her. Recheck INR in the morning, and may be able to resume warfarin. Recently required embolectomy on 01/27 done at [facility] after transfer from here. Emboli considered of cardiac origin. Was started on warfarin there. Status: Acute Additional A&P Information ESBL E. coli UTI: Stop ceftriaxone. Creatinine clearance is 13. She is on phenytoin. Creatinine is improving, for now too low to start Primaxin. Hold off on initiation for now as she otherwise has improved, and does not appear to be significantly symptomatic. Monitor closely in the hospital. Recently with Olinda albicans UTI. fluconazole. CAD with LAD stenting in November: Continue Plavix, statin, beta-efe Supratherapeutic digoxin level: Hold digoxin. Monitor on telemetry. Hold beta- efe. Would discontinue at discharge due to unstable renal function. Atrial fibrillation: Continue metoprolol. Resume warfarin once level therapeutic. Has been on 2 mg daily. Orthostatic hypotension: Has been on fludrocortisone recently due to persistent severe orthostatic hypotension. Had not responded to midodrine. CHF: Chronic systolic congestive heart failure, EF 35-40%. Currently not in exacerbation. Hold diuretics. Caution with diuretic therapy as is easy to become overdiuresed. 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 Avoid overdiuresis. Diabetes: SSI, diabetic diet. Recent hematoma of left flank: On reassessment CT 01/27 had not changed. She states has pretty much resolved. Morbid obesity Attestations Medical Necessity Statement*: Continue admission for assessment management of hyponatremia, acute kidney injury, supratherapeutic INR, ESBL E. coli UTI, supratherapeutic digoxin level in a lady with underlying cardiomyopathy, severe orthostatic hypotension, morbid obesity. Coding Level of Care Code Acute An/Syq 13 Nav/C2 Operator for [facility] Fwd Diagnoses TIFFANY (acute kidney injury) N17.9 Acute hyponatremia E87.1 Supratherapeutic INR R79.1
[2021-03-02 12:54] LABS: Anti-streptolysin O <50 IU/mL (<200)
--- NOTE | 2021-03-02 14:00 | PM.PN ---
Subjective Subjective: Interval history: Mrs. Lee feels like she is doing better today. Has some dyspnea after exertion but otherwise she is comfortable at rest. Minimal extremity edema and no other hypervolemic symptoms. Passing urine via Acevedo catheter asking for this to be removed. I agree. She still has some dizziness on standing. Vitals/I&O/Wt Last Vital Signs Temp 98.2 F 03/02/21 11:30 Pulse 55 L 03/02/21 11:30 Resp 16 03/02/21 11:30 BP 122/81 03/02/21 11:30 Pulse Ox 95 03/02/21 11:30 03/01/21 03/02/21 03/02/21 22:59 06:59 14:59 Intake Total 290 / 770 120 / 120 Output Total 300 / 300 200 / 500 Balance -10 / 470 -200 / 270 120 / 120 Weight last 48 hrs Weight 141.322 kg Weight 139.48 kg Weight 137.75 kg Weight 137.756 kg Physical Exam Narrative: EXAM NARRATIVE: Constitutional: Awake, comfortable HEENT: Wet mucosa, no jvp, non icteric Lungs: Bilaterally clear without discernible wheeze, rales in all lung zones CVS: S1 S2, no murmurs Abdo: Soft, BS ok Ext 4: Minimal edema, peripheral perfusion with no cyanosis Neurological: Grossly non-focal Urinary Catheter Management^: Acevedo: Cath Placed During This Visit: yes Reason for Continuing Indwelling Catheter: Acute Urinary Retention or Obstruction Urinary Catheter Date of Insertion: 02/28/21 Urinary Catheter Time of Insertion: 22:40 Data : 03/02/21 06:43 03/02/21 06:43 Micro: Microbiology 02/28/21 16:15 Urine Culture - Final Urine,Clean Catch Escherichia coli esbl A&P Additional A&P Information 1. Acute kidney injury Believed to be prerenal in nature Baseline creatinine 1.5-2, creatinine currently improving down to 3.7 mg/dL. Given tendency for volume overload will DC IV fluid. She is currently on salt tablets and Florinef, this can also cause hypervolemia and we need to monitor this carefully. No indication for renal replacement therapy DC Acevedo Strict I's and O's Dose medication for GFR less than 15. 2. Chemistry Low sodium noted, remained stable, hypertonic urine with sodium of 145. Believe secondary to acute kidney injury, currently on salt tablets and Florinef, sodium level slowly improving 3. Hemodynamics Previously on midodrine but this was ineffective, currently on Florinef, slowed standing Close monitoring Corbin Sánchez MD Nephrology [phone] Patient seen and examined via telemedicine, with the assistance of the bedside RN > 25 min spent in evaluation and mgmt of patient Attestations Medical Necessity Statement*: eval for TIFFANY Coding Level of Care Code Acute Primary Care Nurse Practitioner for Chg Jana
[2021-03-02 16:36] LABS: Glucose Point of Care 144 mg/dL (70-110)
[2021-03-02] MEDS: phenytoin 50mg Chew Tablet 50 MG PO (20:24)
[2021-03-02] MEDS: atorvastatin 40 mg Tablet 80 MG PO (20:24)
[2021-03-02] MEDS: fluconazole 100 mg Tablet PO (20:24)
[2021-03-03] VITALS (10 sets, daily range): BP systolic 138–177; BP diastolic 54–73; PULSE 53–77; RESP 16–18; TEMP 36.3–36.6; O2SAT 95–99
[2021-03-03] MEDS: levothyroxine 150 mcg Tablet 225 MCG PO (05:29)
[2021-03-03 08:14] LABS: Glucose Point of Care 174 mg/dL (70-110)
[2021-03-03] MEDS: pantoprazole DR 40 mg Tablet PO (09:15)
[2021-03-03] MEDS: b-complex-vitamin c Tablet 1 EACH PO (09:15)
[2021-03-03] MEDS: clopidogrel 75 mg Tablet PO (09:15)
[2021-03-03] MEDS: sodium chloride 1 gm Tablet PO (09:15)
[2021-03-03] MEDS: aspirin 81 mg Chew Tablet PO (09:15)
[2021-03-03] MEDS: phenytoin 50mg Chew Tablet 50 MG PO ×2 (09:15→21:11)
[2021-03-03 09:50] LABS: Basophils # 0.1 10^3/uL (0.0-0.1); Basophils % 0.6 %; Eosinophils # 1.3 10^3/uL (0.0-0.8); Eosinophils % 14.3 %; Hematocrit 29.4 % (37.0-47.0); Hemoglobin 9.2 g/dL (11.5-15.3); Lymphocytes % 33.3 %; Mean Corpuscular HGB Conc 31.3 g/dL (30.0-36.0); Mean Corpuscular Hemoglobin 31.4 pg (28.0-34.0); Mean Corpuscular Volume 100.3 fl (81-99); Mean Platelet Volume 10.2 fL (7.4-10.4); Monocytes # 0.6 10^3/uL (0.2-0.9); Monocytes % 6.8 %; Neutrophils # 3.95 10^3/uL (1.8-7.7); Neutrophils % 43.7 %; Nucleated Red Blood Cells % 0 %; Platelet Count 356 10^3/cmm (130-400); Red Blood Count 2.93 10^6/uL (4.1-5.3); Red Cell Distribution Width 16.6 % (12.1-15.1)
[2021-03-03 10:08] LABS: INR 2.83 (0.8-1.2)
--- NOTE | 2021-03-03 10:21 | P.PN_ITS ---
Subjective Subjective: Interval history: Ms Lee feels well today with no acute complaints. She still is complaining of dizziness on standing. Good urine output after the Acevedo catheter was removed yesterday, no associated dysuria/pelvic discomfort etc. Hemodynamics reviewed and remained stable while lying down. No extremity edema, shortness of breath or other hypervolemic symptoms. Medications: Reviewed: Yes Medication Review Details: Current Medications Acetaminophen (Acetaminophen 325 Mg Tablet) 650 mg PO Q6H PRN PRN Reason: Mild/Mod Pain Or Temp >/= 101 Hydrocodone Bitart/Acetaminophen (Hydrocodone-Acetaminophen 5-325 Mg Tablet) 1 tab PO Q4H PRN PRN Reason: MODERATE PAIN Last Admin: 02/28/21 21:13 Dose: 1 tab Documented by: Atorvastatin Calcium (Atorvastatin 40 Mg Tablet) 80 mg PO BEDTIME@20 ARMINDA Bisacodyl (Bisacodyl 10 Mg Supp) 10 mg HI DAILY PRN PRN Reason: Constipation Citalopram Hydrobromide (Citalopram 20 Mg Tablet) 10 mg PO DAILY@0800 ARMINDA Clopidogrel Bisulfate (Clopidogrel 75 Mg Tablet) 75 mg PO DAILY@0800 [facility] Dextrose (Dextrose 50% Syringe 50 Ml) 25 ml IVP ONCE PRN; Protocol PRN Reason: hypoglycemia protocol Dextrose (Dextrose 50% Syringe 50 Ml) 50 ml IVP PRN PRN; Protocol PRN Reason: hypoglycemia protocol Fluconazole (Fluconazole 100 Mg Tablet) 100 mg PO Q24H [facility] Last Admin: 02/28/21 21:13 Dose: 100 mg Documented by: Glucagon (Glucagon 1 Mg/Ml Inj 1 Ml) 1 mg IM ONCE PRN; Protocol PRN Reason: Adult Acute Hypoglycemia Prot. Sodium Chloride (Sodium Chloride 0.9%) 1,000 mls @ 30 mls/hr IV .Q24H [facility] Last Admin: 02/28/21 23:20 Dose: 30 mls/hr Documented by: Ceftriaxone Sodium 1,000 mg/ (Sodium Chloride) 50 mls @ 100 mls/hr IV Q24H [facility]; Protocol Last Infusion: 02/28/21 23:20 Dose: Infused Documented by: Dextrose ([email or web address]) 500 mls @ 100 mls/hr IV ONCE PRN; Protocol PRN Reason: Adult Acute Hypoglycemia Prot Insulin Aspart (Insulin Aspart 100 Unit/1 Ml) 0 unit SUBCUT TIDWM [facility]; Protocol Levothyroxine Sodium (Levothyroxine 25 Mcg Tablet) 25 mcg PO DAILY@0500 [facility] Last Admin: 03/01/21 05:30 Dose: 25 mcg Documented by: Multivitamins (C-Nnoalsn-Mxmiwvk C Tablet) 1 each PO DAILY [facility] Ondansetron HCl (Ondansetron 2 Mg/Ml Sdv 2 Ml) 4 mg IVP Q6H PRN PRN Reason: NAUSEA AND VOMITING Pantoprazole Sodium (Pantoprazole Dr 40 Mg Tablet) 40 mg PO DAILY@0800 [facility] Vitals/I&O/Wt Last Vital Signs Temp 97.5 F L 03/03/21 08:00 Pulse 68 03/03/21 08:00 Resp 18 03/03/21 08:00 BP 154/73 03/03/21 08:00 Pulse Ox 99 03/03/21 08:00 03/02/21 03/03/21 03/03/21 22:59 06:59 14:59 Intake Total 1240 / 1600 360 / 1960 Output Total 500 / 500 Balance 740 / 1100 360 / 1460 Weight last 48 hrs Weight 141.322 kg Physical Exam Narrative: EXAM NARRATIVE: Constitutional: Awake, comfortable HEENT: Wet mucosa, no jvp, non icteric Lungs: Bilaterally clear without discernible wheeze, rales in all lung zones CVS: S1 S2, no murmurs Abdo: Soft, BS ok Ext 4: Minimal edema, peripheral perfusion with no cyanosis Neurological: Grossly non-focal Urinary Catheter Management^: Acevedo: Cath Placed During This Visit: yes, but has since been removed by the nurse Reason for Continuing Indwelling Catheter: Decision to DC Catheter Urinary Catheter Date of Insertion: 02/28/21 Urinary Catheter Time of Insertion: 22:40 Date Urinary Catheter Removed: 03/02/21 Time Urinary Catheter Discontinued: 15:55 Data : 03/03/21 09:26 03/02/21 06:43 Micro: Microbiology 02/28/21 16:15 Urine Culture - Final Urine,Clean Catch Escherichia coli esbl A&P Additional A&P Information 1. Acute kidney injury Believed to be prerenal in nature Labs pending for today Baseline creatinine 1.5-2, creatinine currently improving down to 3.7 mg/dL. Given tendency for volume overload will DC IV fluid. She is currently on salt tablets and Florinef, this can also cause hypervolemia and we need to monitor this carefully > no evidence of this at this time Acevedo out Strict I's and O's Dose medication for GFR less than 15. 2. Chemistry Low sodium noted, remained stable, hypertonic urine with sodium of 145. Believe secondary to acute kidney injury, currently on salt tablets and Florinef, sodium level slowly improving 3. Hemodynamics Previously on midodrine but this was ineffective, currently on Florinef, slowed standing Close monitoring Orthostatic vitals today Corbin Sánchez MD Nephrology [phone] Patient seen and examined via telemedicine, with the assistance of the bedside RN > 25 min spent in evaluation and mgmt of patient Attestations Medical Necessity Statement*: Eval for hyponatremia and TIFFANY Coding Level of Care Code Acute Instrumentation Instructor for [facility] Jana
--- NOTE | 2021-03-03 10:47 | PC.SOCIAL ---
IMM Update pg 2 of IMM updated and reviewed w/ patient. Copy provided.
[2021-03-03 10:51] LABS: Alanine Aminotransferase 6 U/L (0-33); Albumin Level 2.3 g/dL (3.5-5.2); Alkaline Phosphatase 133 IU/L (35-105); Anion Gap 15.7 (5-19); Aspartate Amino Transferase 24 U/L (0-32); Calcium 7.3 mg/dL (8.5-10.5); Carbon Dioxide 26 mmol/L (22-29); Chloride 93 mmol/L (98-107); Digoxin 1.3 ng/mL (0.6-1.2); Globulin 3.5 g/dL (1.3-4.6); Glucose 129 mg/dL (65-115); Magnesium 1.7 mg/dL (1.7-2.3); Osmolality Calculated 304 mOsm/kg (285-295); Phosphorus 3.5 mg/dL (2.5-4.5); Potassium 3.7 mmol/L (3.5-5.1); Sodium 131 mmol/L (136-145); Total Bilirubin 0.4 mg/dL (0.15-1.2); Total Protein 5.8 g/dL (6.6-8.7)
--- NOTE | 2021-03-03 11:17 | PC.NURSE ---
Patient was unable to stand long enough to complete a stand blood pressure because she felt dizzy.
[2021-03-03 11:18] LABS: Blood Urea Nitrogen 98 mg/dL (8-23)
[2021-03-03 11:31] LABS: Glucose Point of Care 146 mg/dL (70-110)
[2021-03-03 17:30] LABS: Glucose Point of Care 149 mg/dL (70-110)
[2021-03-03] MEDS: warfarin 3 mg Tablet 1.5 MG PO (18:05)
--- NOTE | 2021-03-03 19:24 | PC.NURSE ---
Report to Kaylene QUINN at this time.
[2021-03-03 20:38] LABS: Glucose Point of Care 178 mg/dL (70-110)
--- NOTE | 2021-03-03 21:00 | PM.PN ---
Subjective Subjective: Interval history: She is doing all right today. Denies new symptoms. Trying to stand up today with a walker, she became lightheaded. Adequate blood pressure could not be obtained as she was leaning forward on the walker, tensing her arm. Vitals/I&O/Wt Last Vital Signs Temp 97.9 F 03/03/21 20:00 Pulse 68 03/03/21 20:00 Resp 18 03/03/21 20:00 BP 154/54 03/03/21 20:00 Pulse Ox 99 03/03/21 20:00 03/03/21 03/03/21 03/03/21 06:59 14:59 22:59 Intake Total 360 / 1960 480 / 480 Output Total 400 / 400 Balance 360 / 1460 80 / 80 Weight last 48 hrs Weight 141.322 kg Physical Exam Const: COMMON NORMALS: no acute distress, patient oriented x3 and alert GENERAL APPEARANCE: cooperative NUTRITIONAL APPEARANCE: obese morbidly obese ORIENTATION/CONSCIOUSNESS: Yes awake HENMT: COMMON NORMALS: oropharynx normal Neck/C-Spine: COMMON NORMALS: no JVD Resp: COMMON NORMALS: normal respiratory effort and clear to auscultation bilaterally AUSCULTATION: clear to auscultation bilaterally Cardio: COMMON NORMALS: no JVD, regular rhythm, S1 normal heart sound present, S2 normal heart sound present and No murmurs present (Cardio) RHYTHM: regular rhythm HEART SOUNDS: S1 normal heart sound present and S2 normal heart sound present GI: COMMON NORMALS: Normal to inspection, nondistended, normoactive bowel sounds present, Soft to palpation and non-tender PALPATION: Yes Soft to palpation Extremity: COMMON NORMALS: no joint enlargement and no pedal edema Neuro: COMMON NORMALS: patient oriented x3 and moves all extremities SENSORIUM/ORIENTATION: Yes alert Skin: COMMON NORMALS: no rashes or lesions noted GENERAL SKIN EXAM: no rashes or lesions noted, dry skin and erythema (Mild redness at lateral left ankle. Heel protectors are on. No pressure s) Urinary Catheter Management^: Acevedo: Cath Placed During This Visit: yes, but has since been removed by the nurse Reason for Continuing Indwelling Catheter: Decision to DC Catheter Urinary Catheter Date of Insertion: 02/28/21 Urinary Catheter Time of Insertion: 22:40 Date Urinary Catheter Removed: 03/02/21 Time Urinary Catheter Discontinued: 15:55 Data : 03/03/21 09:26 03/03/21 09:26 A&P Assessment and plan (1) TIFFANY (acute kidney injury): Continue to gradually improve. Oral intake as tolerating. Diuretics on hold. Acute kidney injury on chronic kidney disease. Appreciate nephrology recommendations. Hold phosphate enemas. Monitor urine output. Maintain Acevedo. Kidney ultrasound without obstruction. Medical renal disease. CK normal. Status: Acute (2) Acute hyponatremia: Hyponatremia gradually improving. Sodium up to 131. Discontinued sodium chloride tablets. She is restarted on fludrocortisone due to persistent disabling orthostatic hypotension unresponsive to midodrine. Monitor for fluid overload. Holding diuretics. Mildly elevated TSH. A little bit low free T4. She is on high-dose levothyroxine, 225 mcg as per primary provider prescription. Here currently on 25 mcg only. Resume usual dose. Morning serum cortisol adequate. Status: Acute (3) Orthostatic hypotension: Resumed on fludrocortisone. Sodium chloride tablets discontinued as sodium is improving to avoid fluid overload. Became symptomatically lightheaded when standing up today. Standing blood pressure could not be obtained reliably. Attempt to reassess tomorrow. Fludrocortisone dose may need to be uptitrated slowly to try to achieve better standing blood pressure while watching out for fluid overload. Status: Acute (4) Supratherapeutic INR: Improved. Down to therapeutic range. Resumed warfarin at lower dose, 1.5 mg. Recently required embolectomy on 01/27 done at [facility] after transfer from here. Emboli considered of cardiac origin. Was started on warfarin there. Status: Acute Additional A&P Information ESBL E. coli in urine: Discussed with her daughter yesterday, and with her today. She denies any urinary symptoms. She otherwise is doing well. No signs of sepsis. This may be colonization, and initially not initiated on Primaxin due to poor renal function and elevated risk, but as she is not symptomatic she for now prefers to hold off antibiotics and monitor her condition. Recently with Olinda albicans UTI. For now continue fluconazole. CAD with LAD stenting in November: Continue Plavix, statin, beta-efe Supratherapeutic digoxin level: Resolving. Hold digoxin. Monitor on telemetry. Hold beta-efe. Would discontinue at discharge due to unstable renal function. Atrial fibrillation: Continue metoprolol. Resume warfarin once level therapeutic. Has been on 2 mg daily. Orthostatic hypotension: Has been on fludrocortisone recently due to persistent severe orthostatic hypotension. Had not responded to midodrine. CHF: Chronic systolic congestive heart failure, EF 35-40%. Currently not in exacerbation. Hold diuretics. Caution with diuretic therapy as is easy to become overdiuresed. At least some of the edema may be nonpitting, as well as difficult may be difficult to legal aide in the setting of obesity. Avoid overdiuresis. Diabetes: SSI, diabetic diet. Recent hematoma of left flank: On reassessment CT 01/27 had not changed. She states has pretty much resolved. Morbid obesity Attestations Medical Necessity Statement*: Continue admission for assessment management of gradually improving hyponatremia, acute kidney injury, additional optimization of treatment of severe disabling orthostatic hypotension, resumption of fludrocortisone with caution needed given underlying chronic CHF. Coding Level of Care Code Acute Manager Field Sales for [facility] Jana Diagnoses TIFFANY (acute kidney injury) N17.9 Acute hyponatremia E87.1 Orthostatic hypotension I95.1 Supratherapeutic INR R79.1
[2021-03-03] MEDS: atorvastatin 40 mg Tablet 80 MG PO (21:11)
[2021-03-03] MEDS: fluconazole 100 mg Tablet PO (21:11)
[2021-03-04] VITALS (9 sets, daily range): BP systolic 136–168; BP diastolic 55–71; PULSE 55–95; RESP 14–18; TEMP 36.6–36.8; O2SAT 95–98
[2021-03-04] MEDS: levothyroxine 150 mcg Tablet 225 MCG PO (05:43)
--- NOTE | 2021-03-04 05:49 | PC.NURSE ---
Patient AAOx4, Bp elevated with remaining VSS. Patient repositioned frequently, no c/o pain during shift, scant amount of bright bloody mucous passed with urine in one episode. No safety concerns, no needs at this time. Room clutter free, call light within reach. Will continue to monitor until shift change and handoff to receiving nurse.
[2021-03-04 06:40] LABS: Glucose Point of Care 134 mg/dL (70-110)
--- NOTE | 2021-03-04 07:10 | PM.PN ---
Subjective Subjective: Interval history: feels better. no n/v/d/f/muñoz/leg pain Medications: Reviewed: Yes Medication Review Details: Current Medications Acetaminophen (Acetaminophen 325 Mg Tablet) 650 mg PO Q6H PRN PRN Reason: Mild/Mod Pain Or Temp >/= 101 Hydrocodone Bitart/Acetaminophen (Hydrocodone-Acetaminophen 5-325 Mg Tablet) 1 tab PO Q4H PRN PRN Reason: MODERATE PAIN Last Admin: 02/28/21 21:13 Dose: 1 tab Documented by: Aspirin (Aspirin 81 Mg Chew Tablet) 81 mg PO DAILY@0800 [facility] Last Admin: 03/03/21 09:15 Dose: 81 mg Documented by: Atorvastatin Calcium (Atorvastatin 40 Mg Tablet) 80 mg PO BEDTIME@20 [facility] Last Admin: 03/03/21 21:11 Dose: 80 mg Documented by: Bisacodyl (Bisacodyl 10 Mg Supp) 10 mg SD DAILY PRN PRN Reason: Constipation Citalopram Hydrobromide (Citalopram 20 Mg Tablet) 10 mg PO DAILY@0800 [facility] Last Admin: 03/03/21 09:18 Dose: Not Given Documented by: Clopidogrel Bisulfate (Clopidogrel 75 Mg Tablet) 75 mg PO DAILY@0800 [facility] Last Admin: 03/03/21 09:15 Dose: 75 mg Documented by: Dextrose (Dextrose 50% Syringe 50 Ml) 25 ml IVP ONCE PRN; Protocol PRN Reason: hypoglycemia protocol Dextrose (Dextrose 50% Syringe 50 Ml) 50 ml IVP PRN PRN; Protocol PRN Reason: hypoglycemia protocol Ergocalciferol (Ergocalciferol (Vitamin D2) 50,000 Unit Capsule) 50,000 unit PO Q7D [facility] Last Admin: 03/01/21 11:00 Dose: 50,000 unit Documented by: Fluconazole (Fluconazole 100 Mg Tablet) 100 mg PO Q24H [facility] Last Admin: 03/03/21 21:11 Dose: 100 mg Documented by: Fludrocortisone Acetate (Fludrocortisone 0.1 Mg Tablet) 0.1 mg PO EVERY OTHER DAY [facility] Glucagon (Glucagon 1 Mg/Ml Inj 1 Ml) 1 mg IM ONCE PRN; Protocol PRN Reason: Adult Acute Hypoglycemia Prot. Dextrose (D5w) 500 mls @ 100 mls/hr IV ONCE PRN; Protocol PRN Reason: Adult Acute Hypoglycemia Prot Insulin Aspart (Insulin Aspart 100 Unit/1 Ml) 0 unit SUBCUT TIDWM [facility]; Protocol Last Admin: 03/03/21 18:04 Dose: 2 unit Documented by: Levothyroxine Sodium (Levothyroxine 150 Mcg Tablet) 225 mcg PO DAILY@0500 [facility] Last Admin: 03/04/21 05:43 Dose: 225 mcg Documented by: Multivitamins (U-Kbessyi-Chlykjb C Tablet) 1 each PO DAILY [facility] Last Admin: 03/03/21 09:15 Dose: 1 each Documented by: Ondansetron HCl (Ondansetron 2 Mg/Ml Sdv 2 Ml) 4 mg IVP Q6H PRN PRN Reason: NAUSEA AND VOMITING Pantoprazole Sodium (Pantoprazole Dr 40 Mg Tablet) 40 mg PO DAILY@0800 [facility] Last Admin: 03/03/21 09:15 Dose: 40 mg Documented by: Phenytoin (Phenytoin 50mg Chew Tablet) 50 mg PO BID@0800,2000 [facility] Last Admin: 03/03/21 21:11 Dose: 50 mg Documented by: Warfarin Sodium (Warfarin 3 Mg Tablet) 1.5 mg PO DAILY@1400 [facility] Last Admin: 03/03/21 18:05 Dose: 1.5 mg Documented by: Vitals/I&O/Wt Last Vital Signs Temp 98.1 F 03/04/21 04:00 Pulse 66 03/04/21 05:48 Resp 17 03/04/21 04:00 BP 155/59 03/04/21 04:00 Pulse Ox 95 03/04/21 04:00 03/03/21 03/04/21 03/04/21 22:59 06:59 14:59 Intake Total 480 / 480 120 / 600 Output Total 400 / 400 Balance 80 / 80 120 / 200 Weight last 48 hrs Weight 139.525 kg Physical Exam Narrative: EXAM NARRATIVE: obese female , NARD vs noted- hr stable heent- nc/at, eomi, anicteric neck supple lungs- good air movement b/l heart irreg irreg, +ALEX abd- soft, nt, nd, +BS ext 1+ b/l edema - decreased neuro- a,a, o x 3, no asterixis Urinary Catheter Management^: Acevedo: Cath Placed During This Visit: yes, but has since been removed by the nurse Reason for Continuing Indwelling Catheter: Decision to DC Catheter Urinary Catheter Date of Insertion: 02/28/21 Urinary Catheter Time of Insertion: 22:40 Date Urinary Catheter Removed: 03/02/21 Time Urinary Catheter Discontinued: 15:55 Data : 03/03/21 09:26 03/03/21 09:26 A&P Additional A&P Information 1. Acute kidney injury Believed to be prerenal in nature Labs pending for today Baseline creatinine 1.5-2 mg/dl (CKD stage 3b), creatinine currently improving down to 3.7 mg/dL. Given tendency for volume overload will DC IV fluid. She is currently on salt tablets and Florinef, this can also cause hypervolemia and we need to monitor this carefully > no evidence of this at this time Acevedo out Strict I's and O's Dose medication for GFR less than 15. 2. Chemistry Low sodium noted, remained stable, hypertonic urine with sodium of 45. Believe secondary to acute kidney injury, currently on salt tablets and Florinef, sodium level slowly improving -will monitor 3. Hemodynamics Previously on midodrine but this was ineffective, currently on Florinef, slowed standing Close monitoring Orthostatic vitals today 4. e coli uti 5. anemia- high tsat 6. hypothyroidism - tsh 4.7 on levothyroxine 7. recheck pth in 8 weeks -replace vit d 11. hyperuricemia 12. 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
[2021-03-04] MEDS: fludrocortisone 0.1 mg Tablet PO (09:23)
[2021-03-04] MEDS: phenytoin 50mg Chew Tablet 50 MG PO ×2 (09:23→20:02)
[2021-03-04] MEDS: aspirin 81 mg Chew Tablet PO (09:24)
[2021-03-04] MEDS: b-complex-vitamin c Tablet 1 EACH PO (09:24)
[2021-03-04] MEDS: clopidogrel 75 mg Tablet PO (09:24)
[2021-03-04] MEDS: pantoprazole DR 40 mg Tablet PO (09:25)
[2021-03-04 10:29] LABS: Basophils # 0.1 10^3/uL (0.0-0.1); Eosinophils % 10.6 %; Hematocrit 29.2 % (37.0-47.0); Hemoglobin 9.1 g/dL (11.5-15.3); Lymphocytes # 3.1 10^3/uL (0.8-4.8); Lymphocytes % 34.1 %; Mean Corpuscular HGB Conc 31.2 g/dL (30.0-36.0); Mean Corpuscular Hemoglobin 31.2 pg (28.0-34.0); Mean Platelet Volume 10.5 fL (7.4-10.4); Monocytes # 0.7 10^3/uL (0.2-0.9); Monocytes % 7.3 %; Neutrophils # 4.21 10^3/uL (1.8-7.7); Neutrophils % 46.3 %; Nucleated Red Blood Cells % 0 %; Platelet Count 338 10^3/cmm (130-400); Red Blood Count 2.92 10^6/uL (4.1-5.3); White Blood Count 9.1 10^3/uL (4.0-10.0)
[2021-03-04 10:33] LABS: INR 2.85 (0.8-1.2)
--- NOTE | 2021-03-04 10:34 | P.PN_ITS ---
Subjective Subjective: Interval history: She denies any changes from overnight. Yesterday got lightheaded when trying to stand up. She was having to lean forward and tensing her arm, blood pressure could not be measured reliably while standing. She is comfortable well lying down. Denies chest pain or pressure. Not short of breath. Is asking about restarting her gabapentin. Discussed with her if kidney function continues to improve, should be able to restart it safely. Vitals/I&O/Wt Last Vital Signs Temp 97.8 F 03/04/21 07:50 Pulse 67 03/04/21 07:50 Resp 14 03/04/21 07:50 BP 150/71 03/04/21 07:50 Pulse Ox 98 03/04/21 07:50 03/03/21 03/04/21 03/04/21 22:59 06:59 14:59 Intake Total 480 / 480 120 / 600 240 / 240 Output Total 400 / 400 250 / 250 Balance 80 / 80 120 / 200 -10 / -10 Weight last 48 hrs Weight 139.525 kg Physical Exam Const: COMMON NORMALS: no acute distress, patient oriented x3 and alert GENERAL APPEARANCE: cooperative NUTRITIONAL APPEARANCE: obese morbidly obese ORIENTATION/CONSCIOUSNESS: Yes awake HENMT: COMMON NORMALS: oropharynx normal Neck/C-Spine: COMMON NORMALS: no JVD Resp: COMMON NORMALS: normal respiratory effort and clear to auscultation bilaterally AUSCULTATION: clear to auscultation bilaterally Cardio: COMMON NORMALS: no JVD, regular rhythm, S1 normal heart sound present, S2 normal heart sound present and No murmurs present (Cardio) RHYTHM: regular rhythm HEART SOUNDS: S1 normal heart sound present and S2 normal heart sound present GI: COMMON NORMALS: Normal to inspection, nondistended, normoactive bowel sounds present, Soft to palpation and non-tender PALPATION: Yes Soft to palpation Extremity: COMMON NORMALS: no joint enlargement and no pedal edema Neuro: COMMON NORMALS: patient oriented x3 and moves all extremities SENSORIUM/ORIENTATION: Yes alert Skin: COMMON NORMALS: no rashes or lesions noted GENERAL SKIN EXAM: no rashes or lesions noted, dry skin and erythema (Mild redness at lateral left ankle. Heel protectors are on. No pressure s) Urinary Catheter Management^: Acevedo: Cath Placed During This Visit: yes, but has since been removed by the nurse Reason for Continuing Indwelling Catheter: Decision to DC Catheter Urinary Catheter Date of Insertion: 02/28/21 Urinary Catheter Time of Insertion: 22:40 Date Urinary Catheter Removed: 03/02/21 Time Urinary Catheter Discontinued: 15:55 Data : 03/04/21 09:47 03/04/21 09:47 A&P Assessment and plan (1) Orthostatic hypotension: She is agreeable with cautious resumption of fludrocortisone. She is quite bothered by the orthostatic hypotension, and how disabling is for her, with inability to get up without getting lightheaded. Previously discussed with her, discussed also with her daughter to try to obtain graduated compression stockings. Became symptomatically lightheaded when standing up. Standing blood pressure could not be obtained reliably. Fludrocortisone dose may need to be uptitrated slowly to try to achieve better standing blood pressure while watching out for fluid overload. No evidence of systemic fungal infection. No current yeast growth in urine. Status: Acute (2) TIFFANY (acute kidney injury): Discussed with her this morning's labs are still pending, we do not have updated values. So far, her, continue appears to have been improving. Oral intake as tolerating. Diuretics on hold. Acute kidney injury on chronic kidney disease. Appreciate nephrology recommendations. Hold phosphate enemas. Monitor urine output. Maintain Acevedo. Kidney ultrasound without obstruction. Medical renal disease. CK normal. Status: Acute (3) Acute hyponatremia: Sodium continues to gradually improve. Up to 136. Cautiously resumed on previous dose of fludrocortisone. Off IV fluids, salt tablets. Monitor for fluid overload. Holding diuretics. Mildly elevated TSH. A little bit low free T4. She is on high-dose levothyroxine, 225 mcg as per primary provider prescription. Here currently on 25 mcg only. Resume usual dose. Morning serum cortisol adequate. Status: Acute (4) Supratherapeutic INR: Improved. Down to therapeutic range. Resumed warfarin at lower dose, 1.5 mg. Recently required embolectomy on 01/27 done at [facility] after transfer from here. Emboli considered of cardiac origin. Was started on warfarin there. Status: Acute Additional A&P Information ESBL E. coli in urine: Repeat UA. Received several days empirically of ceft riaxone, but discontinued after growing ESBL E. coli. Discussed with her and her daughter. She denies any urinary symptoms. She otherwise is doing well. No signs of sepsis. This may be colonization, and initially not initiated on Primaxin due to poor renal function and elevated risk, but as she is not symptomatic she for now prefers to hold off antibiotics and monitor her condition. Recently with Olinda albicans UTI. For now continue fluconazole. No fungal growth on current studies. CAD with LAD stenting in November: Continue Plavix, statin, beta-efe Supratherapeutic digoxin level: Resolving. Hold digoxin. Monitor on telemetry. Hold beta-efe. Would discontinue at discharge due to unstable renal function. Atrial fibrillation: Continue to hold metoprolol. Resume once supratherapeutic digoxin resolves. Resume warfarin once level therapeutic. Has been on 2 mg daily. CHF: Chronic systolic congestive heart failure, EF 35-40%. Currently not in exacerbation. Hold diuretics. Caution with diuretic therapy as is easy to become overdiuresed. At least some of the edema may be nonpitting, as well as difficult may be difficult to pressure tester operator in the setting of obesity. Avoid ove rdiuresis. Diabetes: SSI, diabetic diet. Recent hematoma of left flank: On reassessment CT 01/27 had not changed. She states has pretty much resolved. Morbid obesity Attestations Medical Necessity Statement*: Continue admission for assessment and management of severe disabling orthostatic hypotension, resumption of fludrocortisone with close monitoring given recent fluctuation in sodium levels, as well as underlying CHF with risk of fluid overload, as well as improving acute kidney injury on chronic kidney disease. Coding Level of Care Code Acute Water Restoration Technician for [facility] Fwd Exam Comprehensive Diagnoses Orthostatic hypotension I95.1 TIFFANY (acute kidney injury) N17.9 Acute hyponatremia E87.1 Supratherapeutic INR R79.1
[2021-03-04 10:43] LABS: Potassium 3.7 mmol/L (3.5-5.1); Sodium 136 mmol/L (136-145)
[2021-03-04 10:55] LABS: Glucose Point of Care 183 mg/dL (70-110)
[2021-03-04 11:05] LABS: Alanine Aminotransferase 7 U/L (0-33); Albumin Level 2.3 g/dL (3.5-5.2); Alkaline Phosphatase 133 IU/L (35-105); Aspartate Amino Transferase 25 U/L (0-32); Calcium 7.2 mg/dL (8.5-10.5); Carbon Dioxide 26 mmol/L (22-29); Globulin 3.2 g/dL (1.3-4.6); Glucose 131 mg/dL (65-115); Osmolality Calculated 312 mOsm/kg (285-295); Total Bilirubin 0.4 mg/dL (0.15-1.2); Total Protein 5.5 g/dL (6.6-8.7)
--- NOTE | 2021-03-04 11:13 | PC.CHAP ---
Pastoral Care Encounter/Spiritual Assessment Type of Contact [] Declined dynamotor repairer visit [] Patient/Family/Request visit [] Outpatient visit [] Follow-up visit [] Physician referral [] Code/Alert [x] Routine visit [] Staff referral [] Actively dying [] Patient sleeping [] Family support [] [] Out of room [] Palliative care [] [] Receiving care in room [] Pre-surgical visit [] Trauma [] Long length of stay [] ICU visit [] Other: Relational/Emotional Strength [x] Patient feels connected with others/family/visitors/staff [] Distress [] Loneliness/isolation [] Abandonment Spirituality of Patient [x] Person of Jennifer [x] Attends Latter Day of their Jennifer [x] Believes in Prayer [] Reads Bible or Yazidi materials [] There are Spiritual issues to be addressed Flooring Grader Interventions [x] Prayer [x] Active listening [x] Non-anxious presence [x] Spiritual/emotional support [] Crisis/trauma care [] Spiritual counseling [] Bereavement support [] Provided bereavement packet [] Provided Bible/devotional materials [] Provided toy/stuffed animal, coloring book to patient or family member [] Provided Communion [] Anointing/[place] [] Salvation [] Completed spiritual assessment [] Other: Impact on Illness or Injury [] Angry [] Fearful [] Anxious [] Often cries [] Exhaustion [] Unable to work [] Unable to attend scientologist [] Unable to walk/stand [] Unable to read [] Unable to drive [] Unable to eat/drink [] Unable to sleep [] Unable to be with family [] Patient intubated [] Other: Summary Flooring Grader prayed with patient. Time spent with patient 7 minutes.
[2021-03-04 11:17] LABS: Uric Acid 16.7 mg/dL (2.4-5.7)
[2021-03-04 11:19] LABS: Anion Gap 17.7 (5-19); Chloride 96 mmol/L (98-107)
[2021-03-04 11:21] LABS: Blood Urea Nitrogen 93 mg/dL (8-23)
[2021-03-04 14:43] LABS: Glucose Urine UA Norm (Normal); Protein Urine Neg (Negative); Specific Gravity, Urine 1.015 (1.005-1.030); Urine Appearance Clear (CLEAR); Urine Color Yellow (Yellow); pH Urine 5 (5-7)
[2021-03-04 14:44] LABS: Add Urine Microscopic? YES; Bilirubin Urine Neg (Negative); Blood Urine 2+ (Negative); Ketones Urine Negative (Negative); Leukocyte Esterase Urine Trace (Negative); Nitrate Urine Negative (Negative); Urobilinogen Urine Norm (Negative)
[2021-03-04 14:46] LABS: Add Urine Culture? No; Bacteria Urine TRACE /hpf
[2021-03-04 16:51] LABS: Glucose Point of Care 128 mg/dL (70-110)
[2021-03-04] MEDS: warfarin 3 mg Tablet 1.5 MG PO (17:37)
--- NOTE | 2021-03-04 19:21 | PC.NURSE ---
Report to Makayla QUINN at this time.
[2021-03-04] MEDS: atorvastatin 40 mg Tablet 80 MG PO (20:02)
[2021-03-04] MEDS: fluconazole 100 mg Tablet PO (20:02)
[2021-03-04] MEDS: docusate sodium 100 mg Capsule PO (23:09)
[2021-03-05 03:47] VITALS: BP 175/70; PULSE 77; RESP 16; TEMP 36.5; O2SAT 93
[2021-03-05] MEDS: levothyroxine 150 mcg Tablet 225 MCG PO (05:26)
[2021-03-05 05:59] VITALS: PULSE 76
[2021-03-05 07:26] LABS: Basophils # 0.1 10^3/uL (0.0-0.1); Basophils % 0.9 %; Eosinophils # 0.7 10^3/uL (0.0-0.8); Eosinophils % 7.5 %; Hematocrit 30.5 % (37.0-47.0); Hemoglobin 9.2 g/dL (11.5-15.3); Lymphocytes # 3.1 10^3/uL (0.8-4.8); Lymphocytes % 33.9 %; Mean Corpuscular HGB Conc 30.2 g/dL (30.0-36.0); Mean Corpuscular Hemoglobin 31.4 pg (28.0-34.0); Mean Corpuscular Volume 104.1 fl (81-99); Mean Platelet Volume 10.3 fL (7.4-10.4); Monocytes # 0.7 10^3/uL (0.2-0.9); Monocytes % 7.7 %; Neutrophils # 4.46 10^3/uL (1.8-7.7); Neutrophils % 49.3 %; Nucleated Red Blood Cells % 0 %; Platelet Count 285 10^3/cmm (130-400); Red Blood Count 2.93 10^6/uL (4.1-5.3); Red Cell Distribution Width 17.1 % (12.1-15.1); White Blood Count 9.1 10^3/uL (4.0-10.0)
[2021-03-05 07:51] LABS: Alanine Aminotransferase 8 U/L (0-33); Albumin Level 2.3 g/dL (3.5-5.2); Alkaline Phosphatase 119 IU/L (35-105); Anion Gap 14.7 (5-19); Aspartate Amino Transferase 32 U/L (0-32); Blood Urea Nitrogen 80 mg/dL (8-23); Calcium 7.1 mg/dL (8.5-10.5); Carbon Dioxide 28 mmol/L (22-29); Chloride 98 mmol/L (98-107); Globulin 2.9 g/dL (1.3-4.6); Glucose 129 mg/dL (65-115); Osmolality Calculated 310 mOsm/kg (285-295); Phosphorus 3.3 mg/dL (2.5-4.5); Potassium 3.7 mmol/L (3.5-5.1); Sodium 137 mmol/L (136-145); Total Bilirubin 0.4 mg/dL (0.15-1.2); Total Protein 5.2 g/dL (6.6-8.7); Uric Acid 16.8 mg/dL (2.4-5.7)
[2021-03-05 08:12] VITALS: BP 113/71; PULSE 59; RESP 15; TEMP 36.7; O2SAT 96
--- NOTE | 2021-03-05 09:12 | PM.PN ---
Subjective Subjective: Interval history: No new issues today. She feels well but she has orthostatic dizziness still, resistant to the medication she has received. No edema and no other hypervolemic Sx. Medications: Reviewed: Yes Medication Review Details: Current Medications Acetaminophen (Acetaminophen 325 Mg Tablet) 650 mg PO Q6H PRN PRN Reason: Mild/Mod Pain Or Temp >/= 101 Hydrocodone Bitart/Acetaminophen (Hydrocodone-Acetaminophen 5-325 Mg Tablet) 1 tab PO Q4H PRN PRN Reason: MODERATE PAIN Last Admin: 02/28/21 21:13 Dose: 1 tab Documented by: Aspirin (Aspirin 81 Mg Chew Tablet) 81 mg PO DAILY@0800 [facility] Last Admin: 03/03/21 09:15 Dose: 81 mg Documented by: Atorvastatin Calcium (Atorvastatin 40 Mg Tablet) 80 mg PO BEDTIME@20 [facility] Last Admin: 03/03/21 21:11 Dose: 80 mg Documented by: Bisacodyl (Bisacodyl 10 Mg Supp) [address] DAILY PRN PRN Reason: Constipation Citalopram Hydrobromide (Citalopram 20 Mg Tablet) 10 mg PO DAILY@0800 [facility] Last Admin: 03/03/21 09:18 Dose: Not Given Documented by: Clopidogrel Bisulfate (Clopidogrel 75 Mg Tablet) 75 mg PO DAILY@0800 [facility] Last Admin: 03/03/21 09:15 Dose: 75 mg Documented by: Dextrose (Dextrose 50% Syringe 50 Ml) 25 ml IVP ONCE PRN; Protocol PRN Reason: hypoglycemia protocol Dextrose (Dextrose 50% Syringe 50 Ml) 50 ml IVP PRN PRN; Protocol PRN Reason: hypoglycemia protocol Ergocalciferol (Ergocalciferol (Vitamin D2) 50,000 Unit Capsule) 50,000 unit PO Q7D [facility] Last Admin: 03/01/21 11:00 Dose: 50,000 unit Documented by: Fluconazole (Fluconazole 100 Mg Tablet) 100 mg PO Q24H [facility] Last Admin: 03/03/21 21:11 Dose: 100 mg Documented by: Fludrocortisone Acetate (Fludrocortisone 0.1 Mg Tablet) 0.1 mg PO EVERY OTHER DAY [facility] Glucagon (Glucagon 1 Mg/Ml Inj 1 Ml) 1 mg IM ONCE PRN; Protocol PRN Reason: Adult Acute Hypoglycemia Prot. Dextrose (D5w) 500 mls @ 100 mls/hr IV ONCE PRN; Protocol PRN Reason: Adult Acute Hypoglycemia Prot Insulin Aspart (Insulin Aspart 100 Unit/1 Ml) 0 unit SUBCUT TIDWM [facility]; Protocol Last Admin: 03/03/21 18:04 Dose: 2 unit Documented by: Levothyroxine Sodium (Levothyroxine 150 Mcg Tablet) 225 mcg PO DAILY@0500 [facility] Last Admin: 03/04/21 05:43 Dose: 225 mcg Documented by: Multivitamins (P-Igdamhb-Pbyzqzq C Tablet) 1 each PO DAILY [facility] Last Admin: 03/03/21 09:15 Dose: 1 each Documented by: Ondansetron HCl (Ondansetron 2 Mg/Ml Sdv 2 Ml) 4 mg IVP Q6H PRN PRN Reason: NAUSEA AND VOMITING Pantoprazole Sodium (Pantoprazole Dr 40 Mg Tablet) 40 mg PO DAILY@0800 [facility] Last Admin: 03/03/21 09:15 Dose: 40 mg Documented by: Phenytoin (Phenytoin 50mg Chew Tablet) 50 mg PO BID@0800,2000 [facility] Last Admin: 03/03/21 21:11 Dose: 50 mg Documented by: Warfarin Sodium (Warfarin 3 Mg Tablet) 1.5 mg PO DAILY@1400 [facility] Last Admin: 03/03/21 18:05 Dose: 1.5 mg Documented by: Vitals/I&O/Wt Last Vital Signs Temp 98.0 F 03/05/21 08:12 Pulse 59 L 03/05/21 08:12 Resp 15 03/05/21 08:12 BP 113/71 03/05/21 08:12 Pulse Ox 96 03/05/21 08:12 03/04/21 03/05/21 03/05/21 22:59 06:59 14:59 Intake Total 150 / 870 Output Total 0 / 250 Balance 150 / 620 0 / 620 Weight last 48 hrs Weight 139.434 kg Weight 139.525 kg Physical Exam Narrative: EXAM NARRATIVE: Constitutional: Awake, comfortable HEENT: Wet mucosa, no jvp, non icteric Lungs: Bilaterally clear without discernible wheeze, rales in all lung zones CVS: S1 S2, no murmurs Abdo: Soft, BS ok Ext 4: Minimal edema, peripheral perfusion with no cyanosis Neurological: Grossly non-focal Urinary Catheter Management^: Acevedo: Cath Placed During This Visit: yes, but has since been removed by the nurse Reason for Continuing Indwelling Catheter: Decision to DC Catheter Urinary Catheter Date of Insertion: 02/28/21 Urinary Catheter Time of Insertion: 22:40 Date Urinary Catheter Removed: 03/02/21 Time Urinary Catheter Discontinued: 15:55 Data : 03/05/21 06:33 03/05/21 06:33 A&P Additional A&P Information 1. Acute kidney injury Believed to be prerenal in nature Creatinine now baseline No further diagnostic testing Acevedo out Strict I's and O's Dose medication for GFR less than 15. 2. Chemistry Well balanced 3. Hemodynamics Previously on midodrine but this was ineffective, currently on Florinef, slowed standing Close monitoring Orthostatic vitals today Can try Northera as outpatient Will sign off at this time, follow up with Dr Hendricks later this week Corbin Sánchez MD Nephrology [phone] Patient seen and examined via telemedicine, with the assistance of the bedside RN > 25 min spent in evaluation and mgmt of patient Attestations Medical Necessity Statement*: Eval for TIFFANY Coding Level of Care Code Acute [employer] Inspector And Sorter for Sosa Bates
[2021-03-05] MEDS: b-complex-vitamin c Tablet 1 EACH PO (09:19)
[2021-03-05] MEDS: clopidogrel 75 mg Tablet PO (09:19)
[2021-03-05] MEDS: phenytoin 50mg Chew Tablet 50 MG PO (09:19)
[2021-03-05] MEDS: pantoprazole DR 40 mg Tablet PO (09:19)
[2021-03-05] MEDS: docusate sodium 100 mg Capsule PO (09:19)
[2021-03-05] MEDS: aspirin 81 mg Chew Tablet PO (09:19)
[2021-03-05 10:45] LABS: Glucose Point of Care 135 mg/dL (70-110)
[2021-03-05 10:45] LABS: Glucose Point of Care 166 mg/dL (70-110)
[2021-03-05 11:37] LABS: Glucose Point of Care 180 mg/dL (70-110)
[2021-03-05 11:42] LABS: INR 2.42 (0.8-1.2)
[2021-03-05 11:46] VITALS: BP 151/74; PULSE 73; RESP 14; TEMP 36.7; O2SAT 98
--- NOTE | 2021-03-05 12:21 | PC.SOCIAL ---
IMM Update: pg 2 of IMM updated and reviewed w/ patient. Copy provided.
[2021-03-05 12:47] LABS: SARS Covid-2 Antigen Negative (Negative)
--- NOTE | 2021-03-05 12:48 | P.DS_ITS ---
Discharge Providers Date of Admission: 02/28/21 18:11 Date of Discharge: March 05, 2021 Attending Provider at Admission: Woody Boykin Attending Provider at Discharge: Deep Mckeon MD Primary Care Provider: Pascual Kay MD Diagnoses at Discharge Discharge Diagnosis (1) Orthostatic hypotension: Status: Acute (2) TIFFANY (acute kidney injury): Status: Acute (3) Acute hyponatremia: Status: Acute (4) Supratherapeutic INR: Status: Acute Reason for Visit Reason for Visit: LETHARGIC/ DECREASED URINE OUTPUT Hospital Course Hospital Course Carole is a 75-year-old female who presented to the hospital on February 28 with lethargy. She was found to have acute kidney injury, as well as hyponatremia. Supratherapeutic INR was also noted. Nephrology was consulted. Diuretics were held. Coumadin was held. Renal ultrasound was done which demonstrated no obstruction. With gentle normal saline infusion sodium improved. There was concern for possible UTI so fluconazole was started, and empiric ceftriaxone. Antibiotics were stopped after further clarification of symptoms, and it was thought that the ESBL that grew out of her urine was likely colonization. She was continued on fluconazole while in the hospital but ultimately no growth of Olinda occurred in her urine culture at the hospital and this was discontinued on discharge. She did have orthostatic hypotension, and fludrocortisone was restarted during her hospital course, to every other day. The intention is if she continues to feel dizzy upon arising this could be increased to once daily and close monitoring of electrolytes. [facility] would potentially be another option. By March 05 she had improved to a degree where it was thought she could be discharged home. Creatinine was at baseline at that time. Urine culture had no growth. Hyponatremia had resolved. She will follow-up with her urologist. She will get visit with her primary care provider within 3 to 5 days. Laboratory including INR in 3 days. Discharge hemoglobin 9.2, discharge INR 2.42, discharge creatinine 2.0 at baseline. She will not be discharged on any antibiotics. Physical Exam Narrative: EXAM NARRATIVE: General exam is no apparent distress Neck is supple no lymphadenopathy or thyromegaly Cardiovascular regular rate and rhythm without murmur Lungs clear Abdomen is soft, positive bowel sounds Extremities no cyanosis clubbing or edema. Urinary Catheter Management^: Acevedo: Cath Placed During This Visit: yes, but has since been removed by the nurse Reason for Continuing Indwelling Catheter: Decision to DC Catheter Urinary Catheter Date of Insertion: 02/28/21 Urinary Catheter Time of Insertion: 22:40 Date Urinary Catheter Removed: 03/02/21 Time Urinary Catheter Discontinued: 15:55 Discharge Data Data Completed and Pending: Completed Studies During Hospitalization Category Date Time Status XR chest 1V cole ble 20709 Routine Exams 03/02/21 06:00 Completed XR chest 1V cole ble [id number] Stat Exams 02/28/21 15:09 Completed US renal BI* [id number] 0 Routine Ultrasound 03/01/21 18:58 Completed Pending at discharge Category Date Time Status Complete Blood Co unt w/Auto AM LABS Lab 03/06/21 04:00 Ordered Comprehensive Met abolic Panel AM LA BS Lab 03/06/21 04:00 Ordered Magnesium AM LABS Lab 03/06/21 04:00 Ordered Magnesium AM LABS Lab 03/07/21 04:00 Ordered Phosphorus AM LAB S Lab 03/06/21 04:00 Ordered Phosphorus AM LAB S Lab 03/07/21 04:00 Ordered Uric Acid AM LABS Lab 03/06/21 04:00 Ordered Vitamin D 1,25 Di hydroxy Routine Lab 02/28/21 23:27 Received Labs from last 24 hours 03/05/21 03/05/21 03/05/21 12:13 11:22 11:18 WBC RBC Hgb Hct MCV MCH MCHC RDW Plt Count MPV Neut % (Auto) Lymph % (Auto) [place] % (Auto) Eos % (Auto) Baso % (Auto) Neut # (Auto) Lymph # (Auto) [place] # (Auto) Eos # (Auto) Baso # (Auto) Nucleated RBC % (a uto) Nucleated RBCs # PT 26.70 H INR 2.42 H Sodium Potassium Chloride Carbon Dioxide Anion Gap BUN Creatinine GFR Calculation Glucose POC Glucose 180 H Calculated Osmolal ity Uric Acid Calcium Phosphorus Magnesium Total Bilirubin AST ALT Alkaline Phosphata se Total Protein Albumin Globulin Urine Color Urine Appearance Urine pH Ur Specific Gravit y Urine Protein Urine Glucose (UA) Urine Ketones Urine Blood Urine Nitrate Urine Bilirubin Urine Urobilinogen Ur Leukocyte Priscilla ase Urine RBC Urine WBC Ur Squamous Epith Cells Amorphous Sediment Urine Bacteria SARS-CoV-2 Ag (Rap id) Negative 03/05/21 03/05/21 03/05/21 06:33 06:33 06:15 WBC 9.1 RBC 2.93 L Hgb 9.2 L Hct 30.5 L MCV 104.1 H MCH 31.4 MCHC 30.2 RDW 17.1 H Plt Count 285 MPV 10.3 Neut % (Auto) 49.3 Lymph % (Auto) 33.9 [place] % (Auto) 7.7 Eos % (Auto) 7.5 Baso % (Auto) 0.9 Neut # (Auto) 4.46 Lymph # (Auto) 3.1 [place] # (Auto) 0.7 Eos # (Auto) 0.7 Baso # (Auto) 0.1 Nucleated RBC % (a uto) 0 Nucleated RBCs # 0.0 PT INR Sodium 137 Potassium 3.7 Chloride 98 Carbon Dioxide 28 Anion Gap 14.7 BUN 80 H Creatinine 2.0 H GFR Calculation Not Reportable Glucose 129 H POC Glucose 135 H Calculated Osmolal ity 310 H Uric Acid 16.8 H Calcium 7.1 L Phosphorus 3.3 Magnesium 2.0 Total Bilirubin 0.4 AST 32 ALT 8 Alkaline Phosphata se 119 H Total Protein 5.2 L Albumin 2.3 L Globulin 2.9 Urine Color Urine Appearance Urine pH Ur Specific Gravit y Urine Protein Urine Glucose (UA) Urine Ketones Urine Blood Urine Nitrate Urine Bilirubin Urine Urobilinogen Ur Leukocyte Priscilla ase Urine RBC Urine WBC Ur Squamous Epith Cells Amorphous Sediment Urine Bacteria SARS-CoV-2 Ag (Rap id) 03/04/21 03/04/21 03/04/21 20:21 16:44 12:10 WBC RBC Hgb Hct MCV MCH MCHC RDW Plt Count MPV Neut % (Auto) Lymph % (Auto) [place] % (Auto) Eos % (Auto) Baso % (Auto) Neut # (Auto) Lymph # (Auto) [place] # (Auto) Eos # (Auto) Baso # (Auto) Nucleated RBC % (a uto) Nucleated RBCs # PT INR Sodium Potassium Chloride Carbon Dioxide Anion Gap BUN Creatinine GFR Calculation Glucose POC Glucose 166 H 128 H Calculated Osmolal ity Uric Acid Calcium Phosphorus Magnesium Total Bilirubin AST ALT Alkaline Phosphata se Total Protein Albumin Globulin Urine Color Yellow Urine Appearance Clear Urine pH 5 Ur Specific Gravit y 1.015 Urine Protein Neg Urine Glucose (UA) Norm Urine Ketones Negative Urine Blood 2+ H Urine Nitrate Negative Urine Bilirubin Neg Urine Urobilinogen Norm Ur Leukocyte Priscilla ase Trace H Urine RBC 5-10 H Urine WBC 5-10 H Ur Squamous Epith Cells 5-10 H Amorphous Sediment Not Reportable Urine Bacteria Trace SARS-CoV-2 Ag (Rap id) Vitals: Last Vital Signs Temp 98.0 F 03/05/21 11:46 Pulse 73 03/05/21 11:46 Resp 14 03/05/21 11:46 BP 151/74 03/05/21 11:46 Pulse Ox 98 03/05/21 11:46 Discharge Plan Discharge Patient Disposition: Xfer SNF Condition: Stable Prescriptions: New warfarin [Jantoven] 3 mg Tablet 1.5 mg PO DAILY@1400 Qty: 15 RF: 0 fludrocortisone 0.1 mg Tablet 0.1 mg PO EVERY OTHER DAY Qty: 15 RF: 0 Continued gabapentin 100 mg capsule 100 mg PO BID@799,1999 RF: 0 levothyroxine 200 mcg tablet 225 mcg PO DAILY@0500 RF: 0 clopidogrel 75 mg tablet 75 mg PO DAILY@0800 RF: 0 Levemir Flexpen See Rx Instructions .ROUTE .COMPLEX RF: 0 calcitriol 0.25 mcg capsule 0.25 mcg PO DAILY@0800 RF: 0 atorvastatin 80 mg Tablet 80 mg PO BEDTIME@20 RF: 0 insulin aspart U-100 [Novolog U-100 Insulin aspart] 100 unit/mL Solution See Rx Instructions .ROUTE .COMPLEX RF: 0 Milk of Magnesia 400 mg/5 mL Suspension 400 mg PO DAILY PRN (Reason: Constipation) RF: 0 bisacodyl 10 mg Suppository 10 mg OR DAILY PRN (Reason: Constipation) RF: 0 Enema Disposable 19-7 gram/118 mL Enema 118 ml OR DAILY PRN (Reason: Constipation) RF: 0 pantoprazole [address] For Susp In Packet 40 mg PO DAILY@0800 RF: 0 acetaminophen 325 mg Tablet 650 mg PO Q6H PRN (Reason: Pain) RF: 0 citalopram 10 mg Tablet 10 mg PO DAILY@0800 RF: 0 phenytoin 50 mg Tablet,Chewable 50 mg PO BID@799,1999 RF: 0 Multivitamin And Mineral Tablet 1 tab PO DAILY@0800 RF: 0 Pro-Stat AWC 17-100 gram-kcal/30 mL Liquid 15 ea PO BID@ RF: 0 docusate sodium 100 mg capsule 100 mg PO BID@ RF: 0 metoprolol succinate 25 mg tablet extended release 24 hr 25 mg PO DAILY@0800 RF: 0 Discontinued bumetanide 1 mg tablet 2 mg PO BID@ RF: 0 digoxin 125 mcg (0.125 mg) tablet 125 mcg PO DAILY@0800 RF: 0 metolazone 2.5 mg Tablet 2.5 mg PO DAILY@0800 RF: 0 aspirin 81 mg Tablet,Chewable 81 mg PO DAILY@0800 RF: 0 Cardizem CD 120 mg Capsule,Extended Release 24hr 120 mg PO BID@ RF: 0 meclizine 12.5 mg Tablet 12.5 mg PO TID PRN (Reason: UNKNOWN) RF: 0 Macrobid 100 mg Capsule 100 mg PO BID@ RF: 0 Discharge Orders: Discharge Order (Routine); Ordered 03/05/21 Ordered By: Deep Mckeon Referrals: Pascual Kay MD [Primary Care Provider] - 4-7 days Discharge Diet: Diabetic Activity Restrictions/Additional Instructions: Keep appointment with nephrology next week Discontinue aspirin as you are currently maintained on warfarin and Plavix BMP, CBC 3 to 5 days INR March 08 for monitoring of Coumadin Discharge Attestations Time Spent in Discharge Care*: greater than 30 min Quality Metrics Clinical Quality Measures During this hospital stay, did patient experience: None Coding Level of Care Code Acute [facility] note Diagnoses Orthostatic hypotension I95.1 TIFFANY (acute kidney injury) N17.9 Acute hyponatremia E87.1 Supratherapeutic INR R79.1
--- NOTE | 2021-03-05 14:09 | PC.NURSE ---
Report to Raven QUINN at this time.
[2021-03-05 17:15] LABS: Glucose Point of Care 146 mg/dL (70-110)
[2021-03-05 17:44] VITALS: BP 144/74; PULSE 65; RESP 17; TEMP 36.5; O2SAT 96
[2021-03-05 19:07] LABS: Vit D 1,25 (Oh)2, Total 38 pg/mL (18-72); Vit D2 1,25 (Oh)2 17 pg/mL; Vit D3 1,25 (Oh)2 21 pg/mL
== END 2021-03-05 18:00 | disposition skilled nursing facility (03) | DRG 683 ==
LOC: ER 17:53 → MEDSURG 18:53
PROVIDERS: Internal Medicine Nephrology; Admitting Provider Internal Medicine; Emergency Provider Family Medicine; PCP Family Medicine; Visit Provider Internal Medicine
DX: N17.9 Acute kidney failure, unspecified (principal); T83.518A Infection and inflammatory reaction due to other urinary catheter, initial encounter; I13.0 Hypertensive heart and chronic kidney disease with heart failure and stage 1 through stage 4 chronic kidney disease, or unspecified chronic kidney disease; I50.22 Chronic systolic (congestive) heart failure; Z68.42 Body mass index [BMI] 45.0-49.9, adult; E87.1 Hypo-osmolality and hyponatremia; I42.9 Cardiomyopathy, unspecified; I48.91 Unspecified atrial fibrillation; E11.22 Type 2 diabetes mellitus with diabetic chronic kidney disease; N18.30 Chronic kidney disease, stage 3 unspecified; D63.1 Anemia in chronic kidney disease; I25.10 Atherosclerotic heart disease of native coronary artery without angina pectoris; Z95.5 Presence of coronary angioplasty implant and graft; E78.5 Hyperlipidemia, unspecified; E66.01 Morbid (severe) obesity due to excess calories; E11.42 Type 2 diabetes mellitus with diabetic polyneuropathy; Z87.440 Personal history of urinary (tract) infections; E03.9 Hypothyroidism, unspecified; I95.1 Orthostatic hypotension; Y73.8 Miscellaneous gastroenterology and urology devices associated with adverse incidents, not elsewhere classified; B96.20 Unspecified Escherichia coli [E. coli] as the cause of diseases classified elsewhere; R79.1 Abnormal coagulation profile; Z79.4 Long term (current) use of insulin; Z79.02 Long term (current) use of antithrombotics/antiplatelets
CPT/HCPCS: 36415; 36416; 51702; 71045; 76770; 80048; 80053; 80162; 81001; 81003; 82306; 82310; 82436; 82533; 82550; 82570; 82607; 82652; 82728; 82746; 82962; 83540; 83550; 83690; 83735; 83970; 84100; 84133; 84156; 84295; 84300; 84439; 84443; 84550; 85025; 85610; 86060; 87077; 87086; 87186; 87426; 96365; 96372; 96375; 97110; 97161; 97530; 99285; J0696; J1815; J7030; Q3014

== ENCOUNTER 2021-03-21 01:32 | Emergency (ER) | payer MEDICARE, MEDICAID, SELFPAY ==
--- NOTE | 2021-03-21 01:37 | ECG_ITS ---
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 Measurements Intervals [place] Rate: 126 P: VT: QRS: 92 QRSD: 118 T: -2 QT: 308 QTc: 447 Interpretive Statements ATRIAL FIBRILLATION WITH RAPID VENTRICULAR RESPONSE INDETERMINATE AXIS LOW QRS VOLTAGE IN EXTREMITY LEADS [QRS DEFLECTION < 0.5 mV IN LIMB LEADS] MODERATE INTRAVENTRICULAR CONDUCTION DELAY [110+ ms QRS DURATION] MODERATE ST DEPRESSION [0.05+ mV ST DEPRESSION] Compared to ECG 01/27/2021 18:10:16 Indeterminate axis now present Low QRS voltage now present Intraventricular conduction delay now present ST (T wave) deviation now present Myocardial infarct finding no longer present Electronically Signed On 03-21-2021 17:04:42 CDT by Rupinder Melchor M.D. [id number]
--- NOTE | 2021-03-21 01:37 | XRR_ITS ---
PROCEDURE INFORMATION: Exam: XR Chest Exam date and time: 03/21/2021 1:37 AM Age: 75 years old Clinical indication: Chest pressure; Prior surgery; Surgery type: Dialysis cath. Coronary stent. ; Patient HX: Chest pain. History of chf and afib. ; Additional info: Cp TECHNIQUE: Imaging protocol: XR of the chest. Views: 1 view. COMPARISON: CR XR chest 1V portable [id number] 03/02/2021 6:14 AM FINDINGS: Lungs: Minimally increased lung markings, suggestive of mild pulmonary congestion. Bibasilar atelectasis noted. No consolidation. Pleural spaces: No large pleural effusion or pneumothorax. Heart/Mediastinum: Stable cardiomediastinal silhouette. Vasculature: Aortic arch atherosclerotic calcifications seen. Bones/joints: Unremarkable. XR/XR chest 1V portable [id number] IMPRESSION: Possible mild pulmonary congestion.
[2021-03-21 01:38] VITALS: BP 112/79; PULSE 108; RESP 18; TEMP 36.4; O2SAT 100; BMI 50.1
--- NOTE | 2021-03-21 01:39 | W.ED.CHESTPA ---
HPI - Chest Pain General: Chief Complaint: Chest Pain Stated Complaint: CP Time Seen by Provider: 03/21/21 01:33 Source: patient and EMS Mode of arrival: EMS Limitations: no limitations History of Present Illness: HPI narrative: 75-year-old female who is here from the care home. She started having chest pain tonight roughly 2 hours ago. States pain is sharp in nature and in the center of her chest. States it is worse with movement and going over months and with palpation. She states it is currently a 4 out of 10. Patient was given nitro with no improvement. She denies any cough denies any shortness of breath. She does have a history of A. fib with RVR and is tachycardic here. Denies any vomiting or diarrhea. Associated symptoms: Deny abdominal pain, dyspnea, fever(s), nausea or vomiting Review of Systems Const: Denies: fever(s), chills, body aches or change in appetite Eyes: Denies: blurry vision or eye discomfort ENMT: Denies: throat pain or dental pain Card: Reports: chest pain Resp: Denies: dyspnea GI: Denies: abdominal pain, nausea, vomiting or diarrhea : Denies: dysuria Musc: Denies: neck pain or back pain Skin/Breast: Denies: rash Neuro: Denies: headache(s) Psych: Denies: depression Jewel/Lymph: Denies: easy bruising All/Imm: Denies: urticaria PFSH ED PFSH: Medical History Afib Anemia Atrial fibrillation with RVR CAD (coronary artery disease) Chronic anticoagulation Eliquis CKD (chronic kidney disease) Congestive heart failure Diabetes Dyslipidemia Hematoma of left flank HTN (hypertension) Morbid obesity Morbid obesity PVD (peripheral vascular disease) 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) Status post insertion of drug-eluting stent into left anterior descending (LAD) artery Venous stasis Surgical History History of ankle surgery History of cataract surgery History of cholecystectomy History of heart artery stent History of umbilical hernia repair S/P hemodialysis catheter insertion (11/22/20) Right internal jugular vein d/c 12/25/20 Family History Other Cancer Diabetes Social History Smoking and tobacco status: never smoked Alcohol intake: never Marital status: / Physical Exam Const: COMMON NORMALS: no acute distress, patient oriented x3 and healthy appearing NUTRITIONAL APPEARANCE: obese HENMT: COMMON NORMALS: normocephalic and atraumatic HEAD & SCALP: normocephalic and atraumatic Eye: COMMON NORMALS: Equal, round and reactive pupils present and EOMs intact bilaterally PUPIL: Yes Equal, round and reactive pupils present Neck/C-Spine: COMMON NORMALS: full ROM and supple Chest: COMMONS NORMALS: normal inspection of the chest OTHER: point tender in center of chest reproduces her pain Resp: COMMON NORMALS: normal respiratory effort, No retractions, No use of accessory muscles and clear to auscultation bilaterally AUSCULTATION: clear to auscultation bilaterally Cardio: COMMON NORMALS: No murmurs present (Cardio) RATE: tachycardic RHYTHM: abnormal rhythm irregularly irregular GI: COMMON NORMALS: Normal to inspection, nondistended, normoactive bowel sounds present, Soft to palpation, non-tender and no masses PALPATION: Yes Soft to palpation Extremity: COMMON NORMALS: normal to inspection and full ROM Neuro: COMMON NORMALS: patient oriented x3, moves all extremities and no focal motor deficits Psych: COMMON NORMALS: mental status grossly normal, Normal thought process present and cooperative THOUGHT PROCESS: Normal thought process present Skin: COMMON NORMALS: no rashes or lesions noted and no wounds GENERAL SKIN EXAM: no rashes or lesions noted Course Vital Signs: Vital signs: Vital Signs Temperature 97.6 F 03/21/21 01:38 Pulse Rate 93 03/21/21 04:33 Respiratory Rate 20 H 03/21/21 04:33 Blood Pressure 118/44 03/21/21 02:41 Pulse Oximetry 93 03/21/21 04:33 MDM - Chest Pain MDM Narrative: Medical decision making narrative: Patient presents here with chest pain is atypical in nature. She is point tender on exam I believe is likely muscular. Her initial repeat troponin had a decreased delta and was at her baseline. She has no signs of aortic dissection or pulmonary embolism. She feels much improved here after Dilaudid and is requesting discharge back to care home. I feel she is stable to go back to the care home and is returning if worsening. Lab Data: Labs: Lab Results 03/21/21 03/21/21 03/21/21 Range/Units 01:47 01:47 01:47 WBC 5.5 (4.0-10.0) 10^3/ uL RBC 3.20 L (4.1-5.3) 10^6/u L Hgb 10.0 L (11.5-15.3) g/dL Hct 32.4 L (37.0-47.0) % MCV 101.3 H (81-99) fl MCH 31.3 (28.0-34.0) pg MCHC 30.9 (30.0-36.0) g/dL RDW 15.6 H (12.1-15.1) % Plt Count 289 (130-400) 10^3/c mm MPV 11.2 H (7.4-10.4) fL Neut % (Auto) 34.8 % Lymph % (Auto) 46.6 % Charlton % (Auto) 9.4 % Eos % (Auto) 7.7 % Baso % (Auto) 1.1 % Neut # (Auto) 1.90 (1.8-7.7) 10^3/u L Lymph # (Auto) 2.5 (0.8-4.8) 10^3/u L Charlton # (Auto) 0.5 (0.2-0.9) 10^3/u L Eos # (Auto) 0.4 (0.0-0.8) 10^3/u L Baso # (Auto) 0.1 (0.0-0.1) 10^3/u L Nucleated RBC % (a uto) 0 % Nucleated RBCs # 0.0 /100WBC PT 27.90 H (12.1-14.9) SECO NDS INR 2.55 H (0.8-1.2) Sodium 140 (136-145) mmol/L Potassium 4.5 (3.5-5.1) mmol/L Chloride 102 (98-107) mmol/L Carbon Dioxide 25 (22-29) mmol/L Anion Gap 17.5 (5-19) BUN 34 H (8-23) mg/dL Creatinine 1.9 H (0.5-0.9) mg/dL GFR Calculation Not Reportable Glucose 107 (65-115) mg/dL Calculated Osmolal ity 298 H (285-295) mOsm/k g Calcium 8.2 L (8.5-10.5) mg/dL Total Bilirubin 0.5 (0.15-1.2) mg/dL AST 74 H (0-32) U/L ALT 22 (0-33) U/L Alkaline Phosphata se 187 H (35-105) IU/L Troponin T Baselin e (0-10) ng/L Troponin T 120 Min ak chin (0-10) ng/L Delta Troponin T (0-10) ABS# Total Protein 6.3 L (6.6-8.7) g/dL Albumin 2.5 L (3.5-5.2) g/dL Globulin 3.8 (1.3-4.6) g/dL Lipase 34 (13-60) U/L 03/21/21 03/21/21 Range/Units 01:47 04:07 WBC (4.0-10.0) 10^3/ uL RBC (4.1-5.3) 10^6/u L Hgb (11.5-15.3) g/dL Hct (37.0-47.0) % MCV (81-99) fl MCH (28.0-34.0) pg MCHC (30.0-36.0) g/dL RDW (12.1-15.1) % Plt Count (130-400) 10^3/c mm MPV (7.4-10.4) fL Neut % (Auto) % Lymph % (Auto) % Charlton % (Auto) % Eos % (Auto) % Baso % (Auto) % Neut # (Auto) (1.8-7.7) 10^3/u L Lymph # (Auto) (0.8-4.8) 10^3/u L Charlton # (Auto) (0.2-0.9) 10^3/u L Eos # (Auto) (0.0-0.8) 10^3/u L Baso # (Auto) (0.0-0.1) 10^3/u L Nucleated RBC % (a uto) % Nucleated RBCs # /100WBC PT (12.1-14.9) SECO NDS INR (0.8-1.2) Sodium (136-145) mmol/L Potassium (3.5-5.1) mmol/L Chloride (98-107) mmol/L Carbon Dioxide (22-29) mmol/L Anion Gap (5-19) BUN (8-23) mg/dL Creatinine (0.5-0.9) mg/dL GFR Calculation Glucose (65-115) mg/dL Calculated Osmolal ity (285-295) mOsm/k g Calcium (8.5-10.5) mg/dL Total Bilirubin (0.15-1.2) mg/dL AST (0-32) U/L ALT (0-33) U/L Alkaline Phosphata se (35-105) IU/L Troponin T Baselin e 109 H* (0-10) ng/L Troponin T 120 Min ak chin 98.65 H (0-10) ng/L Delta Troponin T -10.35 L (0-10) ABS# Total Protein (6.6-8.7) g/dL Albumin (3.5-5.2) g/dL Globulin (1.3-4.6) g/dL Lipase (13-60) U/L Imaging Data^: CXR: Attestation: I personally reviewed and interpreted this imaging study as follows: Radiologist's impression: [address] [address] XRay Report Signed Patient: Carole Lee Unit #: [id number] : 1945 Age/Sex: 75 / F ADM Date: 03/21/21 Loc: ER Room/Bed: Attending Dr: Ordering Provider/Ordering MD: Duke Geronimo MD Date of Service: 03/21/21 Procedure(s): XR chest 1V portable [id number] Accession Number(s): [id number] Report Number: [id number] PROCEDURE INFORMATION: Exam: XR Chest Exam date and time: 03/21/2021 1:37 AM Age: 75 years old Clinical indication: Chest pressure; Prior surgery; Surgery type: Dialysis cath. Coronary stent. ; Patient HX: Chest pain. History of chf and afib. ; Additional info: Cp TECHNIQUE: Imaging protocol: XR of the chest. Views: 1 view. COMPARISON: CR XR chest 1V portable [id number] 03/02/2021 6:14 AM FINDINGS: Lungs: Minimally increased lung markings, suggestive of mild pulmonary congestion. Bibasilar atelectasis noted. No consolidation. Pleural spaces: No large pleural effusion or pneumothorax. Heart/Mediastinum: Stable cardiomediastinal silhouette. Vasculature: Aortic arch atherosclerotic calcifications seen. Bones/joints: Unremarkable. XR/XR chest 1V portable [id number] IMPRESSION: Possible mild pulmonary congestion. Dictated By: Avni Healy Signed By: Avni Healy Signed Date/Time: 03/21/21342 DD/ 9 EKG Data^: EKG 1: Attestation: I personally reviewed and interpreted this EKG as follows: EKG interpretation date: 03/21/21 EKG interpretation time: 01:39 Interpretation: afib with rvr hr [address] or twave abnormalities qrs 118 qtc 383 Discharge Plan Discharge Patient Disposition: Home Clinical Impression: Chest pain Qualifiers: Chest pain type: unspecified Qualified Code(s): R07.9 - Chest pain, unspecified Condition: Stable Prescriptions: No Action gabapentin 100 mg capsule 100 mg PO BID@0800,2000 RF: 0 levothyroxine 200 mcg tablet 225 mcg PO DAILY@0500 RF: 0 clopidogrel 75 mg tablet 75 mg PO DAILY@0800 RF: 0 Levemir Flexpen See Rx Instructions .ROUTE .COMPLEX RF: 0 calcitriol 0.25 mcg capsule 0.25 mcg PO DAILY@0800 RF: 0 atorvastatin 80 mg Tablet 80 mg PO BEDTIME@20 RF: 0 insulin aspart U-100 [Novolog U-100 Insulin aspart] 100 unit/mL Solution See Rx Instructions .ROUTE .COMPLEX RF: 0 Milk of Magnesia 400 mg/5 mL Suspension 400 mg PO DAILY PRN (Reason: Constipation) RF: 0 bisacodyl 10 mg Suppository 10 mg CA DAILY PRN (Reason: Constipation) RF: 0 Enema Disposable 19-7 gram/118 mL Enema 118 ml CA DAILY PRN (Reason: Constipation) RF: 0 pantoprazole [address] For Susp In Packet 40 mg PO DAILY@0800 RF: 0 acetaminophen 325 mg Tablet 650 mg PO Q6H PRN (Reason: Pain) RF: 0 citalopram 10 mg Tablet 10 mg PO DAILY@0800 RF: 0 phenytoin 50 mg Tablet,Chewable 50 mg PO BID@08,1999 RF: 0 multivitamin,ie-ovhe-Is-FA-min Tablet 1 tab PO DAILY@0800 RF: 0 Pro-Stat AWC 17-100 gram-kcal/30 mL Liquid 15 ea PO BID@799,1999 RF: 0 docusate sodium 100 mg capsule 100 mg PO BID@08,1999 RF: 0 metoprolol succinate 25 mg tablet extended release 24 hr 25 mg PO DAILY@0800 RF: 0 Jantoven 3 mg Tablet 1.5 mg PO DAILY@1400 Qty: 15 RF: 0 fludrocortisone 0.1 mg Tablet 0.1 mg PO EVERY OTHER DAY Qty: 15 RF: 0 Discharge Orders: Discharge ED (Routine); Ordered 03/21/21 Ordered By: Duke Geronimo Referrals: Pascual Kay MD [Primary Care Provider] - 1-3 days Discharge Diet: Advance as tolerated Discharge Activity: Resume usual activity Patient Instructions: Chest Pain (ED) Coding Level of Care Code ED Materials Director for Katerineg Fwd Exam Comprehensive
[2021-03-21] MEDS: ondansetron 2 mg/ML SDV 2 mL 4 MG IVP (02:01)
[2021-03-21 02:03] VITALS: RESP 24
[2021-03-21] MEDS: morphine 4 mg/mL SDV 1 mL IVP (02:03)
[2021-03-21] MEDS: sodium chloride 0.9% 1,000 ML 999 ML IV (02:05)
[2021-03-21 02:11] LABS: Alanine Aminotransferase 22 U/L (0-33); Albumin Level 2.5 g/dL (3.5-5.2); Alkaline Phosphatase 187 IU/L (35-105); Anion Gap 17.5 (5-19); Aspartate Amino Transferase 74 U/L (0-32); Basophils # 0.1 10^3/uL (0.0-0.1); Basophils % 1.1 %; Blood Urea Nitrogen 34 mg/dL (8-23); Calcium 8.2 mg/dL (8.5-10.5); Carbon Dioxide 25 mmol/L (22-29); Chloride 102 mmol/L (98-107); Eosinophils # 0.4 10^3/uL (0.0-0.8); Eosinophils % 7.7 %; Globulin 3.8 g/dL (1.3-4.6); Glucose 107 mg/dL (65-115); Hematocrit 32.4 % (37.0-47.0); Lipase 34 U/L (13-60); Lymphocytes # 2.5 10^3/uL (0.8-4.8); Lymphocytes % 46.6 %; Mean Corpuscular HGB Conc 30.9 g/dL (30.0-36.0); Mean Corpuscular Hemoglobin 31.3 pg (28.0-34.0); Mean Corpuscular Volume 101.3 fl (81-99); Mean Platelet Volume 11.2 fL (7.4-10.4); Monocytes # 0.5 10^3/uL (0.2-0.9); Monocytes % 9.4 %; Neutrophils % 34.8 %; Nucleated Red Blood Cells % 0 %; Osmolality Calculated 298 mOsm/kg (285-295); Platelet Count 289 10^3/cmm (130-400); Potassium 4.5 mmol/L (3.5-5.1); Red Cell Distribution Width 15.6 % (12.1-15.1); Sodium 140 mmol/L (136-145); Total Bilirubin 0.5 mg/dL (0.15-1.2); Total Protein 6.3 g/dL (6.6-8.7); White Blood Count 5.5 10^3/uL (4.0-10.0)
[2021-03-21 02:12] LABS: INR 2.55 (0.8-1.2)
[2021-03-21 02:40] LABS: Troponin(5th) Baseline 109 ng/L (0-10)
[2021-03-21 02:41] VITALS: BP 118/44; PULSE 85; RESP 18; O2SAT 93
[2021-03-21 04:33] VITALS: PULSE 93; RESP 20; O2SAT 93
[2021-03-21 04:51] LABS: Troponin 5 2HR 98.65 ng/L (0-10)
--- NOTE | 2021-03-21 05:51 | PC.NURSE ---
Sarthak from transportation called, states that [facility] is going to pick this patient up around 0800
[2021-03-21 06:43] VITALS: PULSE 94; RESP 18; O2SAT 92
== END 2021-03-21 07:25 | disposition home or self-care (01) ==
PROVIDERS: Emergency Provider Emergency Medicine; PCP Family Medicine
DX: R07.9 Chest pain, unspecified (principal); Z79.02 Long term (current) use of antithrombotics/antiplatelets; Z79.4 Long term (current) use of insulin; I25.10 Atherosclerotic heart disease of native coronary artery without angina pectoris; I11.0 Hypertensive heart disease with heart failure; I50.9 Heart failure, unspecified; E11.9 Type 2 diabetes mellitus without complications; E78.5 Hyperlipidemia, unspecified
CPT/HCPCS: 71045; 80053; 83690; 84484; 85025; 85610; 93005; 96361; 96374; 96375; 99284; J2270; J2405; J3490; J7030

== ENCOUNTER 2021-04-09 17:40 | Emergency (ER) | payer MEDICARE, MEDICAID, SELFPAY ==
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
[2021-04-09 17:56] VITALS: BP 132/76; PULSE 88; RESP 14; TEMP 36.1; O2SAT 98
[2021-04-09] MEDS: bacitracin ointment 28 gm 1 APPLIC TOPICAL (18:02)
== END 2021-04-09 18:04 | disposition home or self-care (01) ==
PROVIDERS: Emergency Provider Family Medicine; PCP Family Medicine
DX: S00.01XA Abrasion of scalp, initial encounter (principal); W22.8XXA Striking against or struck by other objects, initial encounter; Y92.129 Unspecified place in nursing home as the place of occurrence of the external cause; I25.10 Atherosclerotic heart disease of native coronary artery without angina pectoris; I11.0 Hypertensive heart disease with heart failure; I50.9 Heart failure, unspecified; E11.9 Type 2 diabetes mellitus without complications; E78.5 Hyperlipidemia, unspecified; Z79.02 Long term (current) use of antithrombotics/antiplatelets; Z79.4 Long term (current) use of insulin
CPT/HCPCS: 99281

== ENCOUNTER 2021-06-13 11:33 | Inpatient (IN) | payer MEDICARE, MEDICAID, SELFPAY ==
[2021-06-13 11:36] VITALS: BP 129/79; PULSE 124; RESP 20; TEMP 36.5; O2SAT 95; BMI 51.5
--- NOTE | 2021-06-13 11:36 | ED_ITS ---
HPI - SOB/Dyspnea General: Chief Complaint: Shortness of Breath/Dyspnea Stated Complaint: RESP DISTRESS Time Seen by Provider: 06/13/21 11:36 History of Present Illness: HPI Narrative: Ms. Lee is a 75-year-old lady with significant past medical history of atrial fibrillation (reportedly paroxysmal), hypertension, hyperlipidemia, CAD s/p PCI, diabetes, heart failure with reduced ejection fraction who presents to the emergency department due to shortness of breath. Symptom onset was gradual approximately 2 days ago. She endorses dry cough associated with shortness of breath. Symptom onset is now moderate and course of been worsening. Symptoms are worse with exertion but do not go with rest. No positional changes. No other associated infectious symptoms. No other known exacerbating or alleviating factors identified. EMS found the patient to have wheezing and administered albuterol with perhaps mild improvement. Review of Systems General: Reports: 10 or more systems reviewed and unremarkable except in HPI and below PFSH ED PFSH: Medical History (Updated 06/13/21 @ 18:38 by Delgado Ramos MD) Afib Anemia Atrial fibrillation with RVR CAD (coronary artery disease) Chronic anticoagulation Eliquis CKD (chronic kidney disease) Congestive heart failure Diabetes Dyslipidemia Hematoma of left flank HTN (hypertension) Morbid obesity Morbid obesity PVD (peripheral vascular disease) 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) Status post insertion of drug-eluting stent into left anterior descending (LAD) artery Urine retention Venous stasis Surgical History History of ankle surgery History of cataract surgery History of cholecystectomy History of heart artery stent History of umbilical hernia repair S/P hemodialysis catheter insertion (11/22/20) Right internal jugular vein d/c 12/25/20 Family History Other Cancer Diabetes Social History Smoking and tobacco status: never smoked Alcohol intake: never Marital status: / Current occupational status: retired History of recent travel: No Physical Exam Narrative: EXAM NARRATIVE: GENERAL/CONSTITUTIONAL -chronically ill-appearing. Obese. Eyes - PERRL, no conjunctival injection ENMT - Atraumatic external nose and ears. Moist mucous membranes NECK - supple. trachea midline CARDIOVASCULAR -irregularly irregular rhythm, tachycardia. Normal peripheral perfusion. Left lower extremity greater than right pitting edema, asymmetry is reportedly chronic with history of left ankle surgeries. RESPIRATORY - diminished to auscultation bilaterally. Supplemental oxygen in place, accessory muscle use which is mild, mild respiratory distress. ABDOMEN/GI - Nontender/Nondistended. No tenderness to percussion or evidence of peritonitis MSK - Extremities without obvious deformity or tenderness to palpation SKIN - Warm, Dry NEURO - alert and appropriately oriented. Moves all extremities equally. Course ED course: - Patient was seen and evaluated by me at bedside - Patient placed on cardiac monitors, IV access obtained - Initial evaluation notable for increased respiratory effort as noted above. Supplemental oxygen in place. irregular tachycardic heart rhythm. - Labs notable for no leukocytosis, normal procalcitonin. Near baseline macrocytic anemia. Metabolic panel with out acute electrolyte abnormality to explain patient's symptoms. Creatinine elevated with known history of CKD. Lactate mildly elevated. Delta troponin negative. BNP elevated. - Imaging notable for patchy infiltrates and small bilateral effusions - Upon serial reexamination after treatment the patient was mildly improved - Based on patient history, evaluation, labs, and imaging as interpreted the most likely cause of the patient's condition is acute on chronic heart failure with evidence of volume overload. - The results of ED evaluation were discussed with the patient including plan for admission due to requirement for level of care not available if discharged to prevent significant worsening/deterioration. -Hospitalist service contacted and agreed to admit the patient. - Patient was admitted without further deterioration or significant events. Vital Signs: Vital signs: Vital Signs Temperature 97.8 F 06/16/21 07:41 Pulse Rate 79 06/16/21 07:41 Respiratory Rate 18 06/16/21 07:41 Blood Pressure 98/48 06/16/21 07:41 Pulse Oximetry 93 06/16/21 07:41 MDM - SOB/Dyspnea Medical Records: Attestation: I reviewed the patient's medical records. Lab Data: Attestation: I reviewed the patient's lab results. Labs: Lab Results 06/13/21 06/13/21 06/13/21 12:06 12:25 12:25 WBC 4.1 10^3/uL 10^3/ uL (4.0-10.0) RBC 3.71 10^6/uL L 10 ^6/uL (4.1-5.3) Hgb 11.1 g/dL L g/dL (11.5-15.3) Hct 37.8 % % (37.0-47.0) MCV 101.9 fl H fl (81-99) MCH 29.9 pg pg (28.0-34.0) MCHC 29.4 g/dL L g/dL (30.0-36.0) RDW 16.4 % H % (12.1-15.1) Plt Count 175 10^3/cmm 10^3 /cmm (130-400) MPV 10.8 fL H fL (7.4-10.4) Neut % (Auto) 50.0 % % Lymph % (Auto) 28.8 % % [place] % (Auto) 12.2 % % Eos % (Auto) 7.3 % % Baso % (Auto) 1.5 % % Neut # (Auto) 2.05 10^3/uL 10^3 /uL (1.8-7.7) Lymph # (Auto) 1.2 10^3/uL 10^3/ uL (0.8-4.8) [place] # (Auto) 0.5 10^3/uL 10^3/ uL (0.2-0.9) Eos # (Auto) 0.3 10^3/uL 10^3/ uL (0.0-0.8) Baso # (Auto) 0.1 10^3/uL 10^3/ uL (0.0-0.1) Nucleated RBC % (a uto) 0 % % Nucleated RBCs # 0.0 /100WBC /100W BC PT 17.50 SECONDS H S ECONDS (12.1-14.9) INR 1.40 H (0.8-1.2) Specimen Type Arterial Sample Site Radial, left ABG pH 7.38 (7.35-7.45) ABG pCO2 42.8 mmHg mmHg (35-45) ABG pO2 94.9 mmHg mmHg (80.0-100.0) ABG HCO3 25.4 mmol/L mmol/ L (22-26) ABG Base Excess 0.2 mmol/L mmol/L (-2.0-2.0) Olvin Test Pos Hematocrit 33.1 % L % (37-47) O2 Delivery Device Nc O2 Liters/Min 2.0 % % FiO2 28.0 % % Phone Representative ID Cak Sodium Potassium Chloride Carbon Dioxide Anion Gap BUN Creatinine GFR Calculation Glucose Calculated Osmolal ity Lactate Calcium Magnesium Total Bilirubin AST ALT Alkaline Phosphata se Troponin T Baselin e Troponin T 120 Min [place] Delta Troponin T C-Reactive Protein NT-Pro-B Natriuret Pep Total Protein Albumin Globulin Procalcitonin TSH Influenza Type A A g Influenza Type B A g SARS-CoV-2 Ag (Rap id) 06/13/21 06/13/21 06/13/21 12:25 12:25 12:25 WBC RBC Hgb Hct MCV MCH MCHC RDW Plt Count MPV Neut % (Auto) Lymph % (Auto) [place] % (Auto) Eos % (Auto) Baso % (Auto) Neut # (Auto) Lymph # (Auto) [place] # (Auto) Eos # (Auto) Baso # (Auto) Nucleated RBC % (a uto) Nucleated RBCs # PT INR Specimen Type Sample Site ABG pH ABG pCO2 ABG pO2 ABG HCO3 ABG Base Excess Olvin Test Hematocrit O2 Delivery Device O2 Liters/Min FiO2 Phone Representative ID Sodium 137 mmol/L mmol/L (136-145) Potassium 4.5 mmol/L mmol/L (3.5-5.1) Chloride 100 mmol/L mmol/L (98-107) Carbon Dioxide 23 mmol/L mmol/L (22-29) Anion Gap 18.5 (5-19) BUN 27 mg/dL H mg/dL (8-23) Creatinine 1.9 mg/dL H mg/dL (0.5-0.9) GFR Calculation Not Reportable Glucose 186 mg/dL H mg/dL (65-115) Calculated Osmolal ity 294 mOsm/kg mOsm/ kg (285-295) Lactate 2.4 mmol/L H mmol /L (0.5-2.2) Calcium 7.8 mg/dL L mg/dL (8.5-10.5) Magnesium 1.4 mg/dL L mg/dL (1.7-2.3) Total Bilirubin 0.3 mg/dL mg/dL (0.15-1.2) AST 27 U/L U/L (0-32) ALT 14 U/L U/L (0-33) Alkaline Phosphata se 283 IU/L H IU/L (35-105) Troponin T Baselin e 110 ng/L H* ng/L (0-10) Troponin T 120 Min [place] Delta Troponin T C-Reactive Protein 58.3 mg/L H mg/L (0.0-4.9) NT-Pro-B Natriuret Pep 39200 pg/mL H pg/ mL (0-450) Total Protein 6.4 g/dL L g/dL (6.6-8.7) Albumin 3.2 g/dL L g/dL (3.5-5.2) Globulin 3.2 g/dL g/dL (1.3-4.6) Procalcitonin 0.13 ng/mL ng/mL (0-0.5) TSH 2.95 uIU/mL uIU/m L (0.27-4.20) Influenza Type A A g Influenza Type B A g SARS-CoV-2 Ag (Rap id) 06/13/21 06/13/21 06/13/21 13:24 13:24 14:55 WBC RBC Hgb Hct MCV MCH MCHC RDW Plt Count MPV Neut % (Auto) Lymph % (Auto) [place] % (Auto) Eos % (Auto) Baso % (Auto) Neut # (Auto) Lymph # (Auto) [place] # (Auto) Eos # (Auto) Baso # (Auto) Nucleated RBC % (a uto) Nucleated RBCs # PT INR Specimen Type Sample Site ABG pH ABG pCO2 ABG pO2 ABG HCO3 ABG Base Excess Olvin Test Hematocrit O2 Delivery Device O2 Liters/Min FiO2 Phone Representative ID Sodium Potassium Chloride Carbon Dioxide Anion Gap BUN Creatinine GFR Calculation Glucose Calculated Osmolal ity Lactate Calcium Magnesium Total Bilirubin AST ALT Alkaline Phosphata se Troponin T Baselin e Troponin T 120 Min [place] 108.3 ng/L H ng/L (0-10) Delta Troponin T -1.7 ABS# L ABS# (0-10) C-Reactive Protein NT-Pro-B Natriuret Pep Total Protein Albumin Globulin Procalcitonin TSH Influenza Type A A g Negative (Negative) Influenza Type B A g Negative (Negative) SARS-CoV-2 Ag (Rap id) Negative (Negative) EKG Data^: EKG 1: Attestation: I personally reviewed and interpreted this EKG as follows: EKG Interpretation Date: 06/13/21 EKG interpretation time: 13:24 Interpretation: Twelve-lead EKG shows an irregular rhythm at a rate of 122. CA interval not present, QRS duration 113, QTc 384. Right axis. Interpretation: Atrial fibrillation with rapid ventricular response. 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
--- NOTE | 2021-06-13 11:47 | XR_ITS ---
WS: [id number] Portable AP upright chest, 06/13/2021 Clinical Data: sob Comparison: None. Findings: No nodules, masses or effusions are seen. The heart is slightly enlarged. The pulmonary vas cularity is not increased. No pneumothorax is seen. Patchy bilateral pulmonary opacities are seen whi ch could represent atelectasis and/or pneumonia. There may be small effusions. The aortic arch shows calcification. XR/XR chest 1V portable [id number] Impression: 1. Patchy bilateral pulmonary opacities which could represent atelectasis and/o r pneumonia. 2. Atherosclerosis and cardiomegaly. 3. Possible small bilateral effusions.
--- NOTE | 2021-06-13 11:48 | ECG_ITS ---
[facility] Test Date: 2021-06-13 Pat Name: Carole Lee Department: Room: Gender: Female Project Development Leader: : 1945 Requested By: Grayson Renee Order Number: [id number] Danielle MD: Antonietta Jo M.D. Measurements Intervals [place] Rate: 122 P: CT: QRS: 106 QRSD: 113 T: 0 QT: 312 QTc: 445 Interpretive Statements ATRIAL FIBRILLATION WITH RAPID VENTRICULAR RESPONSE RIGHT AXIS DEVIATION [QRS AXIS > 100] LOW QRS VOLTAGE [QRS DEFLECTION < 0.5/1.0 mV IN LIMB/CHEST LEADS] ANTEROSEPTAL MYOCARDIAL INFARCTION , OF INDETERMINATE AGE [40+ ms Q WAVE IN V1-V4] Compared to ECG 03/21/2021 01:39:36 Right-axis deviation now present Myocardial infarct finding now present Indeterminate axis no longer present Intraventricular conduction delay no longer present ST (T wave) deviation no longer present Electronically Signed On 06-13-2021 23:43:19 MUNITIONS HANDLER SUPERVISOR by Antonietta Jo M.D. [id number]
[2021-06-13 12:17] LABS: ABG PCO2 42.8 mmHg (35-45); ABG PH Result 7.38 (7.35-7.45); Arterial Blood Gas Hematocrit 33.1 % (37-47); Base Excess ABG 0.2 mmol/L (-2.0-2.0); Blood Gas Allen Test Pos; Blood Gas Operator Identificat CAK; Blood Gas Sample Site Radial, left; Blood Gas Sample Type Arterial; HCO3 ABG 25.4 mmol/L (22-26); Oxygen Device NC; PO2 ABG 94.9 mmHg (80.0-100.0)
[2021-06-13 12:43] LABS: Basophils # 0.1 10^3/uL (0.0-0.1); Basophils % 1.5 %; Eosinophils # 0.3 10^3/uL (0.0-0.8); Eosinophils % 7.3 %; Hematocrit 37.8 % (37.0-47.0); Hemoglobin 11.1 g/dL (11.5-15.3); Lymphocytes # 1.2 10^3/uL (0.8-4.8); Lymphocytes % 28.8 %; Mean Corpuscular HGB Conc 29.4 g/dL (30.0-36.0); Mean Corpuscular Hemoglobin 29.9 pg (28.0-34.0); Mean Corpuscular Volume 101.9 fl (81-99); Mean Platelet Volume 10.8 fL (7.4-10.4); Monocytes # 0.5 10^3/uL (0.2-0.9); Monocytes % 12.2 %; Neutrophils # 2.05 10^3/uL (1.8-7.7); Nucleated Red Blood Cells % 0 %; Platelet Count 175 10^3/cmm (130-400); Red Blood Count 3.71 10^6/uL (4.1-5.3); Red Cell Distribution Width 16.4 % (12.1-15.1); White Blood Count 4.1 10^3/uL (4.0-10.0)
[2021-06-13 13:13] LABS: Troponin(5th) Baseline 110 ng/L (0-10)
[2021-06-13 13:15] LABS: NT Pro B Type Natriuretic Pept 25372 pg/mL (0-450); Procalcitonin 0.13 ng/mL (0-0.5); Thyroid Stimulating Hormone 2.95 uIU/mL (0.27-4.20)
[2021-06-13 13:26] LABS: Alanine Aminotransferase 14 U/L (0-33); Albumin Level 3.2 g/dL (3.5-5.2); Alkaline Phosphatase 283 IU/L (35-105); Anion Gap 18.5 (5-19); Aspartate Amino Transferase 27 U/L (0-32); Blood Urea Nitrogen 27 mg/dL (8-23); C Reactive Protein 58.3 mg/L (0.0-4.9); Calcium 7.8 mg/dL (8.5-10.5); Carbon Dioxide 23 mmol/L (22-29); Chloride 100 mmol/L (98-107); Globulin 3.2 g/dL (1.3-4.6); Glucose 186 mg/dL (65-115); Magnesium 1.4 mg/dL (1.7-2.3); Osmolality Calculated 294 mOsm/kg (285-295); Potassium 4.5 mmol/L (3.5-5.1); Sodium 137 mmol/L (136-145); Total Bilirubin 0.3 mg/dL (0.15-1.2); Total Protein 6.4 g/dL (6.6-8.7)
--- NOTE | 2021-06-13 13:36 | PC.PHAR ---
PT STATES SHE TAKES CARE OF HER OWN MEDICATIONS-RX FILLED ON 05/28/21 30D/S FOR JANTOVEN 1.5MG DAILY-PT STATES SHE IS TAKING JUST 0.5MG DAILY PT STATES SHE IS TAKING HALF OF A PINKISH TAB LAZARA FROM [facility] STATES THE PINKISH TAB IS THE 1MG JANTOVEN-NOTES ARE MADE IN THE PHARMACY COMMENTS-
[2021-06-13] MEDS: aspirin 81 mg Chew Tablet 324 MG PO (13:42)
[2021-06-13 14:07] LABS: SARS Covid-2 Antigen Negative (Negative)
[2021-06-13 14:08] LABS: Influenza A by IFA Negative (Negative); Influenza B by IFA Negative (Negative)
[2021-06-13 14:55] LABS: Lactate (Lactic Acid level) 2.4 mmol/L (0.5-2.2)
[2021-06-13] MEDS: metoprolol tartrate 1 mg/1 mL SDV 5 mL 5 MG IVP ×2 (15:27→18:12)
[2021-06-13] MEDS: FUROsemide 10 mg/mL SDV 4mL 40 MG IVP ×2 (15:30→22:04)
[2021-06-13] MEDS: magnesium sulfate premix 2 GM/50 ML PIGGYBACK IV (15:31)
[2021-06-13 15:33] LABS: Troponin 5 2HR Delta -1.7 ABS# (0-10)
[2021-06-13 15:34] LABS: Troponin 5 2HR 108.3 ng/L (0-10)
[2021-06-13 16:30] VITALS: PULSE 103; RESP 17; O2SAT 97
[2021-06-13 18:20] VITALS: BP 102/76; PULSE 100; RESP 18; O2SAT 100
--- NOTE | 2021-06-13 18:32 | PM.HP ---
Providers/Chief Complaint Primary Care Provider: Pascual Kay MD Chief Complaint: RESP DISTRESS History of Present Illness Carole Lee is a 75 year old female with past medical history of atrial fibrillation on Coumadin, history of chronic UTIs, ESBL, hypothyroidism, CAD status post stenting x2 on Plavix, insulin-dependent type 2 diabetes mellitus, history of EF with diminished ejection fraction 35%, who presents [facility] due to worsening shortness of breath. Patient tells me that she lives with her son and she has been experiencing increased shortness of breath, increasing bilateral lower extremity edema. Denies fevers, no cough, no known exposure to COVID-19, has received both Covid booster shot, no flu shot, denies any fevers, no lightheadedness, dizziness, no nausea, vomiting, no chest pain, no palpitations. She is not sure how much Lasix she takes, she thinks it is 1 tablet a day. She not sure how much Coumadin she takes she thinks is a half a tablet a day, he tells me that her niece manages all her medications does report orthopnea, no proximal nocturnal dyspnea. Review of Systems Const: Denies: fever(s), chills, fatigue or malaise Eyes: Denies: change in vision or blurry vision ENMT: Denies: nasal congestion Resp: Denies: dyspnea GI: Denies: abdominal pain, nausea, vomiting, diarrhea, constipation or melena : Denies: flank pain, dysuria or urinary frequency Skin/Breast: Denies: rash Neuro: Denies: dizziness Medications/Allergies Home Medications Medication Instructions Recorded Confirmed Last Taken Type levothyroxine 225 mcg PO DAILY@0500 09/08/19 06/13/21 06/13/21 History clopidogrel 75 mg PO DAILY@0800 11/29/20 06/13/21 06/13/21 History gabapentin 100 mg capsule 100 mg PO BID@08,1999 cap 12/05/20 06/13/21 06/13/21 History atorvastatin 80 mg PO BEDTIME@20 12/07/20 06/13/21 06/12/21 History calcitriol 0.25 mcg PO DAILY@0800 01/16/21 06/13/21 06/13/21 History Enema Disposable 118 ml ME DAILY PRN 02/28/21 06/13/21 Unknown History citalopram 10 mg PO DAILY@0800 02/28/21 06/13/21 06/13/21 History docusate sodium 100 mg PO BEDTIME 02/28/21 06/13/21 06/12/21 History bumetanide 2 mg PO QAM 06/13/21 06/13/21 06/13/21 History empagliflozin [Jardiance] 10 mg PO DAILY 06/13/21 06/13/21 06/13/21 History folic acid 2 cap PO BEDTIME 06/13/21 06/13/21 Unknown History insulin aspart U-100 [Novolog See Rx Instructions .ROUTE .COMPLEX 06/13/21 06/13/21 Unknown History Flexpen U-100 Insulin] insulin detemir U-100 [Levemir 4 - 8 unit SUBCUT BEDTIME 06/13/21 06/13/21 Unknown History FlexTouch U-100 Insuln] meclizine 12.5 mg PO QAM 06/13/21 06/13/21 06/13/21 History metoprolol tartrate 25 mg PO BID 06/13/21 06/13/21 06/13/21 09:00 History mupirocin 1 applic TOPICAL BID PRN 06/13/21 06/13/21 Unknown History pantoprazole 40 mg PO QAM 06/13/21 06/13/21 06/13/21 History phenytoin sodium extended 200 mg PO BID 06/13/21 06/13/21 06/13/21 09:00 History potassium chloride 10 meq PO QAM 06/13/21 06/13/21 06/13/21 History sennosides-docusate sodium 1 tab PO QAM 06/13/21 06/13/21 06/13/21 History [Senna-S] warfarin 0.5 mg PO QAM 06/13/21 06/13/21 06/13/21 History Allergies Allergy/AdvReac Type Severity Reaction Status Date / Time gentamicin Allergy Unknown Verified 06/13/21 13:31 hydromorphone [From Dilaudid] Allergy Unknown Verified 06/13/21 13:31 PFSH Acute PFSH: Medical History (Updated 06/13/21 @ 18:38 by Delgado Ramos MD) Afib Anemia Atrial fibrillation with RVR CAD (coronary artery disease) Chronic anticoagulation Eliquis CKD (chronic kidney disease) Congestive heart failure Diabetes Dyslipidemia Hematoma of left flank HTN (hypertension) Morbid obesity Morbid obesity PVD (peripheral vascular disease) 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) Status post insertion of drug-eluting stent into left anterior descending (LAD) artery Urine retention Venous stasis Surgical History History of ankle surgery History of cataract surgery History of cholecystectomy History of heart artery stent History of umbilical hernia repair S/P hemodialysis catheter insertion (11/22/20) Right internal jugular vein d/c 12/25/20 Family History Other Cancer Diabetes Social History Smoking and tobacco status: never smoked Alcohol intake: never Marital status: / Current occupational status: retired History of recent travel: No Vitals/I&O/Wt Last Vital Signs Temp 97.7 F 06/13/21 11:36 Pulse 100 06/13/21 18:20 Resp 18 06/13/21 18:20 BP 102/76 06/13/21 18:20 Pulse Ox 100 06/13/21 18:20 06/13/21 06/13/21 06/13/21 06:59 14:59 22:59 Intake Total 50 / 50 Balance 50 / 50 Weight last 48 hrs Weight 149.232 kg Physical Exam Const: COMMON NORMALS: no acute distress and patient oriented x3 GENERAL APPEARANCE: cooperative and comfortable HENMT: COMMON NORMALS: normocephalic HEAD & SCALP: normocephalic Eye: COMMON NORMALS: Equal, round and reactive pupils present and EOMs intact bilaterally GENERAL EYE: appearance normal, both eyes and all related structures PUPIL: Yes Equal, round and reactive pupils present Neck/C-Spine: COMMON NORMALS: full ROM and no lymphadenopathy THYROID: Thyroid normal Lymph: LYMPHATIC: no lymphadenopathy noted Resp: COMMON NORMALS: normal respiratory effort, No retractions, No use of accessory muscles and clear to auscultation bilaterally AUSCULTATION: clear to auscultation bilaterally Cardio: COMMON NORMALS: regular rate, regular rhythm, S1 normal heart sound present, S2 normal heart sound present, No gallops present (Cardio), No clicks present (Cardio) and No murmurs present (Cardio) RATE: regular rate RHYTHM: regular rhythm HEART SOUNDS: S1 normal heart sound present and S2 normal heart sound present GI: COMMON NORMALS: Normal to inspection, nondistended, normoactive bowel sounds present, Soft to palpation, non-tender and No hepatosplenomegaly present PALPATION: Yes Soft to palpation and Yes No hepatosplenomegaly present Extremity: OTHER: 2+ pitting edema bilaterally Neuro: COMMON NORMALS: patient oriented x3, CN's II-XII intact bilaterally, moves all extremities and no focal motor deficits Psych: COMMON NORMALS: mental status grossly normal, Normal thought process present and cooperative THOUGHT PROCESS: Normal thought process present Data : 06/13/21 12:25 06/13/21 12:25 Micro: Microbiology 06/13/21 14:55 Blood Culture - Preliminary Blood SPECIMEN COLLECTED 06/13/21 14:55 Blood Culture - Preliminary Blood SPECIMEN COLLECTED A&P Assessment and plan (1) Acute on chronic congestive heart failure: Acute on chronic systolic CHF exacerbation plan: -lasix 40mg IV q12H -fluid restriction <1200cc -Oxygen therapy -cardiac echocardiogram ordered -Possible concern for pneumonia, blood cultures, MRSA nares PCR, will start on Zosyn, de-escalate in the next 24 to 48 hours Insulin-dependent type 2 days mellitus, moderate dose sliding scale CAD, continue statin, Plavix Atrial fibrillation, concerns for RVR, during my examination heart rates would go into the high 120s, has been given 2 doses of 5 mg of metoprolol, will increase metoprolol to 50 twice daily starting this evening CKD, creatinine 1.9, continue to monitor Hypomagnesemia, replaced in the emergency room NSTEMI, likely supply demand ischemia from CHF as above, but cannot rule out underlying CAD given history of CAD, status post ending in November -Continue Plavix, continue beta-efe, continue Coumadin, continue statin -Telemetry monitoring -Serial EKGs, serial troponins -Cardiac echocardiogram ordered Full code Coumadin for DVT prophylaxis Status: Acute (2) Atrial fibrillation with RVR: Status: Acute (3) Atherosclerotic heart disease of [place] coronary artery with unstable angina pectoris: Status: Chronic Qualifiers: [place] vs. 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 transplanted heart: [place] heart Dyslipidemia E78.5 CKD (chronic kidney disease) N18.9 Diabetes E11.22; N18.32; Z79.4 Chronic kidney disease stage: stage 3 (moderate) Chronic kidney disease stage 3 subtype: stage 3b (GFR 30-44) Diabetes mellitus complication detail: with chronic kidney disease Diabetes mellitus complication status: with kidney complications Diabetes mellitus penitentiary insulin use: with penitentiary use Diabetes mellitus type: type 2
[2021-06-13 19:25] LABS: Troponin 5 6HR Delta 1.5 ng/L (0-12)
[2021-06-13 19:28] LABS: Troponin 5 6HR 111.5 ng/L (0-10)
[2021-06-13 20:28] VITALS: BP 105/86; PULSE 104; RESP 18; O2SAT 97
[2021-06-13 21:12] VITALS: BP 110/48; PULSE 63; PULSE 94; RESP 19; TEMP 36.6; O2SAT 96
[2021-06-13 21:13] VITALS: BMI 51.5
[2021-06-13] MEDS: gabapentin 100 mg Capsule PO (22:04)
[2021-06-13] MEDS: docusate sodium 100 mg Capsule PO (22:04)
[2021-06-13 22:15] LABS: Glucose Point of Care 179 mg/dL (70-110)
[2021-06-14] VITALS (10 sets, daily range): BP systolic 96–108; BP diastolic 57–71; PULSE 81–116; RESP 18–20; TEMP 36.4–36.7; O2SAT 92–100
[2021-06-14] MEDS: piperacillin-tazobactam 3.375 GM in sodium chloride 0.9% (plus) 50 ML IV ×4 (00:47→23:55)
[2021-06-14] MEDS: levothyroxine 200 mcg Tablet PO (05:43)
[2021-06-14] MEDS: warfarin 1 mg Tablet 0.5 MG PO (05:43)
[2021-06-14] MEDS: levothyroxine 25 mcg Tablet PO (05:43)
[2021-06-14] MEDS: pantoprazole DR 40 mg Tablet PO (05:44)
[2021-06-14] MEDS: potassium chloride ER 10 mEq Tablet PO (05:44)
[2021-06-14] MEDS: sennosides-docusate Tablet 1 TAB PO (05:46)
[2021-06-14 06:30] LABS: INR 1.52 (0.8-1.2)
[2021-06-14 06:57] LABS: Alanine Aminotransferase 13 U/L (0-33); Albumin Level 2.9 g/dL (3.5-5.2); Alkaline Phosphatase 256 IU/L (35-105); Anion Gap 17.6 (5-19); Aspartate Amino Transferase 30 U/L (0-32); Blood Urea Nitrogen 28 mg/dL (8-23); Calcium 7.6 mg/dL (8.5-10.5); Carbon Dioxide 22 mmol/L (22-29); Chloride 102 mmol/L (98-107); Globulin 2.8 g/dL (1.3-4.6); Glucose 136 mg/dL (65-115); Magnesium 1.6 mg/dL (1.7-2.3); Osmolality Calculated 292 mOsm/kg (285-295); Phosphorus 4.2 mg/dL (2.5-4.5); Potassium 4.6 mmol/L (3.5-5.1); Sodium 137 mmol/L (136-145); Thyroid Stimulating Hormone 2.79 uIU/mL (0.27-4.20); Total Bilirubin 0.2 mg/dL (0.15-1.2); Total Protein 5.7 g/dL (6.6-8.7)
[2021-06-14 07:13] LABS: Basophils # 0.1 10^3/uL (0.0-0.1); Basophils % 1.3 %; Eosinophils # 0.5 10^3/uL (0.0-0.8); Eosinophils % 10.7 %; Hemoglobin 10.6 g/dL (11.5-15.3); Lymphocytes # 1.4 10^3/uL (0.8-4.8); Lymphocytes % 31.4 %; Mean Corpuscular HGB Conc 26.5 g/dL (30.0-36.0); Mean Corpuscular Hemoglobin 30.5 pg (28.0-34.0); Mean Corpuscular Volume 114.9 fl (81-99); Mean Platelet Volume 10.8 fL (7.4-10.4); Monocytes # 0.6 10^3/uL (0.2-0.9); Monocytes % 12.9 %; Neutrophils # 1.98 10^3/uL (1.8-7.7); Neutrophils % 43.5 %; Nucleated Red Blood Cells % 0 %; Platelet Count 151 10^3/cmm (130-400); Red Blood Count 3.48 10^6/uL (4.1-5.3); Red Cell Distribution Width 16.3 % (12.1-15.1); White Blood Count 4.6 10^3/uL (4.0-10.0)
[2021-06-14 08:58] LABS: Glucose Point of Care 169 mg/dL (70-110)
[2021-06-14] MEDS: citalopram 20 mg Tablet 10 MG PO (09:21)
[2021-06-14] MEDS: metoprolol tartrate 50 mg Tablet PO ×2 (09:22→17:33)
[2021-06-14] MEDS: gabapentin 100 mg Capsule PO ×2 (09:23→20:22)
[2021-06-14] MEDS: phenytoin ER 100 mg Capsule 200 MG PO ×2 (09:23→17:33)
[2021-06-14] MEDS: calcitriol 0.25 mcg Capsule PO (09:23)
[2021-06-14] MEDS: FUROsemide 10 mg/mL SDV 4mL 40 MG IVP ×2 (09:23→22:17)
[2021-06-14] MEDS: clopidogrel 75 mg Tablet PO (09:36)
--- NOTE | 2021-06-14 10:17 | PC.CHAP ---
Pastoral Care Encounter/Spiritual Assessment Type of Contact [] Declined embedded software design engineer visit [] Patient/Family/Request visit [] Outpatient visit [] Follow-up visit [] Physician referral [] Code/Alert [x] Routine visit [] Staff referral [] Actively dying [] Patient sleeping [] Family support [] [] Out of room [] Palliative care [] [x] Receiving care in room [] Pre-surgical visit [] Trauma [x] Long length of stay [] ICU visit [] Other: Relational/Emotional Strength [] Patient feels connected with others/family/visitors/staff [x] Distress [] Loneliness/isolation [] Abandonment Spirituality of Patient [x] Person of Jennifer [] Attends Zoroastrianism of their Jennifer [x] Believes in Prayer [] Reads Bible or Faith materials [] There are Spiritual issues to be addressed 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 Interventions [x] Prayer [x] Active listening [x] Non-anxious presence [x] Spiritual/emotional support [] Crisis/trauma care [x] Spiritual counseling [] Bereavement support [] Provided bereavement packet [] Provided Bible/devotional materials [] Provided toy/stuffed animal, coloring book to patient or family member [] Provided Communion [] Anointing/[place] [] Salvation [x] Completed spiritual assessment [] Other: Impact on Illness or Injury [] Angry [x] Fearful [] Anxious [] Often cries [] Exhaustion [x] Unable to work [] Unable to attend latter-day [] Unable to walk/stand [] Unable to read [] Unable to drive [] Unable to eat/drink [] Unable to sleep [] Unable to be with family [] Patient intubated [] Other: Summary has a negative un able to coomunicate with nurse Time spent with patient 10 mins
[2021-06-14 11:01] LABS: Glucose Point of Care 127 mg/dL (70-110)
[2021-06-14] MEDS: metOLazone 5 MG Tablet 10 MG PO (11:45)
[2021-06-14] MEDS: magnesium sulfate premix 2 GM/50 ML PIGGYBACK IV (11:45)
--- NOTE | 2021-06-14 13:06 | PM.PN ---
Subjective Subjective: Interval history: Patient was seen this morning, she tells me that she is not a lot better, continues to have leg swelling, shortness of breath has improved, Vitals/I&O/Wt Last Vital Signs Temp 97.7 F 06/14/21 11:28 Pulse 98 06/14/21 11:28 Resp 20 H 06/14/21 11:28 BP 108/71 06/14/21 11:28 Pulse Ox 95 06/14/21 11:28 06/13/21 06/14/21 06/14/21 22:59 06:59 14:59 Intake Total 50 / 50 150 / 200 50 / 50 Balance 50 / 50 150 / 200 50 / 50 Weight last 48 hrs Weight 149.232 kg Weight 149.232 kg Physical Exam Const: COMMON NORMALS: no acute distress and patient oriented x3 Resp: COMMON NORMALS: normal respiratory effort, No retractions, No use of accessory muscles and clear to auscultation bilaterally AUSCULTATION: clear to auscultation bilaterally Cardio: COMMON NORMALS: regular rate, regular rhythm, S1 normal heart sound present and S2 normal heart sound present RATE: regular rate RHYTHM: regular rhythm HEART SOUNDS: S1 normal heart sound present and S2 normal heart sound present GI: COMMON NORMALS: Normal to inspection, nondistended, normoactive bowel sounds present, Soft to palpation and non-tender PALPATION: Yes Soft to palpation Extremity: NARRATIVE EXTREMITY EXAM: Bilateral lower extremity edema, Neuro: COMMON NORMALS: patient oriented x3 Psych: COMMON NORMALS: mental status grossly normal Data : 06/14/21 05:57 06/14/21 05:57 Micro: Microbiology 06/13/21 19:40 MRSA Culture - Final Nose 06/13/21 14:55 Blood Culture - Preliminary Blood SPECIMEN COLLECTED 06/13/21 14:55 Blood Culture - Preliminary Blood SPECIMEN COLLECTED A&P Assessment and plan (1) Acute on chronic congestive heart failure: Acute on chronic systolic CHF exacerbation plan: -Creatinine 1.9, potassium 4.6 -lasix 40mg IV q12H, 1 dose of metolazone -fluid restriction <1200cc -Oxygen therapy -cardiac echocardiogram ordered -Possible concern for pneumonia, blood cultures, MRSA nares PCR, will start on Zosyn, de-escalate in the next 24 to 48 hours Insulin-dependent type 2 days mellitus, moderate dose sliding scale CAD, continue statin, Plavix Atrial fibrillation, concerns for RVR, during my examination heart rates would go into the high 120s, has been given 2 doses of 5 mg of metoprolol, heart rate under better control this morning, continue metoprolol 50 mg twice a day, INR 1.52, pharmacy dose Coumadin CKD, creatinine 1.9, continue to monitor Hypomagnesemia, replaced in the emergency room NSTEMI, likely supply demand ischemia from CHF as above, but cannot rule out underlying CAD given history of CAD, status post ending in November -Continue Plavix, continue beta-efe, continue Coumadin, continue statin -Telemetry monitoring -Serial EKGs, serial troponins -Cardiac echocardiogram ordered Full code Coumadin for DVT prophylaxis Status: Acute (2) Atrial fibrillation with RVR: Status: Acute (3) Atherosclerotic heart disease of [place] coronary artery with unstable angina pectoris: Status: Chronic Qualifiers: [place] vs. transplanted heart: [place] heart Qualified Code(s): I25.110 - Atherosclerotic heart disease of [place] coronary artery with unstable angina pectoris (4) Dyslipidemia: Status: Chronic (5) CKD (chronic kidney disease): Status: Acute (6) Diabetes: Status: Acute Qualifiers: Chronic kidney disease stage: stage 3 (moderate) Chronic kidney disease stage 3 subtype: stage 3b (GFR 30-44) Diabetes mellitus complication detail: with chronic kidney disease Diabetes mellitus complication status: with kidney complications Diabetes mellitus residential insulin use: with residential use Diabetes mellitus type: type 2 Qualified Code(s): E11.22 - Type 2 diabetes mellitus with diabetic chronic kidney disease; N18.32 - Chronic kidney disease, stage 3b; 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
[2021-06-14] MEDS: warfarin 1 mg Tablet PO (17:26)
[2021-06-14 17:42] LABS: Glucose Point of Care 130 mg/dL (70-110)
[2021-06-14] MEDS: atorvastatin 40 mg Tablet 80 MG PO (20:22)
[2021-06-14 20:30] LABS: Glucose Point of Care 157 mg/dL (70-110)
--- NOTE | 2021-06-14 21:12 | USCV_ITS ---
Jesus Carole Age: 75 Gender: F : 1945 Exam Date: 06/14/2021 06:15 Ordering Phys: Delgado Ramos MD Technologist: [place] [facility] [place]: CHF BP: 132 / 75 HR: 62 Rhythm: Sinus Technical Quality: Adequate MEASUREMENTS (Male / Female) Normal Values 2D ECHO LV Diastolic Diameter PLAX 5.9 cm 4.2 - 5.9 / 3.9 - 5.3 cm LV Systolic Diameter PLAX 4.3 cm IVS Diastolic Thickness 1.3 cm 0.6 - 1.0 / 0.6 - 0.9 cm IVS Systolic Thickness 1.6 cm LVPW Diastolic Thickness 1.5 cm 0.6 - 1.0 / 0.6 - 0.9 cm LVPW Systolic Thickness 1.6 cm LVOT Diameter 2.1 cm LV Ejection Fraction 2D Teich 40.0 % LV Ejection Fraction MOD 2C 51.5 % LV Ejection Fraction 2C AL 50.4 % LA Diameter 4.6 cm LA Width 4.3 cm LA Height 7.8 cm RA Width 5.5 cm RA Height 6.5 cm M-MODE LV Diastolic Diameter MM 5.8 cm 4.2 - 5.9 / 3.9 - 5.3 cm LV Systolic Diameter MM 5.0 cm LV Ejection Fraction MM Teich 28.4 % IVS Diastolic Thickness MM 1.2 cm 0.6 - 1.0 / 0.6 - 0.9 cm IVS Systolic Thickness MM 1.4 cm LVPW Diastolic Thickness MM 1.5 cm 0.6 - 1.0 / 0.6 - 0.9 cm LVPW Systolic Thickness MM 1.8 cm RV Diastolic Diameter MM 2.2 cm Aortic Annulus Diameter 3.2 cm LA Ao Ratio MM 1.5 MV E Point Septal Separation 1.9 cm DOPPLER AV Peak Velocity 121.0 cm/s LVOT Peak Velocity 79.0 cm/s AV Area Cont Eq vti 1.6 cm squared AV Area Cont Eq pk 2.2 cm squared MV Area PHT 5.0 cm squared Mitral E to A Ratio 2.1 MV E' Velocity 58.0 cm/s Mitral E to MV E' Ratio 15.1 Mitral E to LV E' Lateral Ratio 18.0 Mitral E to LV E' Septal Ratio 12.9 TR Peak Velocity 230.2 cm/s TR Peak Gradient 21.2 mmHg Right Atrial Pressure 3.0 mmHg Pulmonary Artery Systolic Pressu 24.2 mmHg FINDINGS Left Ventricle Mildly dilated left ventricle. LV systolic function is severely reduced. LVEF is 20 to 25%. Regional wall motion abnormalities cannot be assessed because of poor ultrasonic windows. Right Ventricle The right ventricle is hypokinetic. Right Atrium The right atrium is normal in size. Left Atrium The left atrium is enlarged Mitral Valve Mitral valve is thickened. No significant stenosis or prolapse. There is mild mitral regurgitation. Aortic Valve Aotic valve is thickened without significant stenosis. There is no aortic regurgitation. Tricuspid Valve Grossly normal without significant stenosis. Trace tricuspid regurgitation. Insufficient TR jet to calculate RVSP Pulmonic Valve Not well visualized. There is mild pulmonic regurgitation. Pericardium Normal pericardium without effusion. Aorta Normal ascending aorta dimension. CONCLUSIONS Limited quality echocardiogram because of poor ultrasonic windows. LV systolic function is severely reduced with EF of 20 to 25%. Right ventricle is hypokinetic. Left atrium is enlarged. Mitral and aortic valves are thickened. Mild mitral regurgitation. Mild pulmonic regurgitation. Trace tricuspid regurgitation. Compared to prior echocardiogram from 01/21/2021, LV systolic function has decreased further. Ramon Garcia MD (Electronically Signed) Final Date: 14 June 2021 12:02 S
[2021-06-14] MEDS: docusate sodium 100 mg Capsule PO (22:42)
[2021-06-14] MEDS: folic acid 1 mg Tablet 2 MG PO (22:43)
[2021-06-15] VITALS (8 sets, daily range): BP systolic 96–137; BP diastolic 57–84; PULSE 77–108; RESP 16–18; TEMP 36.4–36.9; O2SAT 93–100
[2021-06-15] MEDS: levothyroxine 200 mcg Tablet PO (05:47)
[2021-06-15] MEDS: potassium chloride ER 10 mEq Tablet PO (05:48)
[2021-06-15] MEDS: pantoprazole DR 40 mg Tablet PO (05:48)
[2021-06-15] MEDS: levothyroxine 25 mcg Tablet PO (05:48)
[2021-06-15] MEDS: sennosides-docusate Tablet 1 TAB PO (05:48)
[2021-06-15 05:49] LABS: Basophils % 0.7 %; Eosinophils # 0.3 10^3/uL (0.0-0.8); Eosinophils % 7.5 %; Hematocrit 32.9 % (37.0-47.0); Hemoglobin 9.6 g/dL (11.5-15.3); Lymphocytes % 23.8 %; Mean Corpuscular HGB Conc 29.2 g/dL (30.0-36.0); Mean Corpuscular Hemoglobin 29.7 pg (28.0-34.0); Mean Corpuscular Volume 101.9 fl (81-99); Monocytes # 0.5 10^3/uL (0.2-0.9); Monocytes % 11.9 %; Neutrophils # 2.29 10^3/uL (1.8-7.7); Neutrophils % 55.9 %; Nucleated Red Blood Cells % 0 %; Platelet Count 146 10^3/cmm (130-400); Red Blood Count 3.23 10^6/uL (4.1-5.3); Red Cell Distribution Width 15.8 % (12.1-15.1); White Blood Count 4.1 10^3/uL (4.0-10.0)
[2021-06-15 06:12] LABS: Alanine Aminotransferase 11 U/L (0-33); Albumin Level 2.6 g/dL (3.5-5.2); Alkaline Phosphatase 243 IU/L (35-105); Anion Gap 16.6 (5-19); Aspartate Amino Transferase 26 U/L (0-32); Blood Urea Nitrogen 33 mg/dL (8-23); Calcium 7.6 mg/dL (8.5-10.5); Carbon Dioxide 24 mmol/L (22-29); Chloride 101 mmol/L (98-107); Globulin 2.9 g/dL (1.3-4.6); Glucose 109 mg/dL (65-115); Magnesium 1.7 mg/dL (1.7-2.3); Osmolality Calculated 292 mOsm/kg (285-295); Phosphorus 3.8 mg/dL (2.5-4.5); Potassium 4.6 mmol/L (3.5-5.1); Sodium 137 mmol/L (136-145); Total Bilirubin 0.2 mg/dL (0.15-1.2); Total Protein 5.5 g/dL (6.6-8.7)
[2021-06-15 06:17] LABS: INR 1.69 (0.8-1.2)
[2021-06-15 06:39] LABS: Glucose Point of Care 110 mg/dL (70-110)
[2021-06-15] MEDS: piperacillin-tazobactam 3.375 GM in sodium chloride 0.9% (plus) 50 ML IV ×3 (07:15→23:31)
[2021-06-15] MEDS: warfarin 1 mg Tablet 0.5 MG PO (07:18)
[2021-06-15] MEDS: calcitriol 0.25 mcg Capsule PO (09:15)
[2021-06-15] MEDS: phenytoin ER 100 mg Capsule 200 MG PO ×2 (09:15→18:31)
[2021-06-15] MEDS: citalopram 20 mg Tablet 10 MG PO (09:15)
[2021-06-15] MEDS: metoprolol tartrate 50 mg Tablet PO ×2 (09:15→18:31)
[2021-06-15] MEDS: gabapentin 100 mg Capsule PO ×2 (09:16→20:24)
[2021-06-15] MEDS: clopidogrel 75 mg Tablet PO (09:16)
[2021-06-15] MEDS: FUROsemide 10 mg/mL SDV 4mL 40 MG IVP ×2 (09:16→21:08)
[2021-06-15 12:05] LABS: Glucose Point of Care 116 mg/dL (70-110)
[2021-06-15] MEDS: aspirin 81 mg EC Tablet PO (12:57)
[2021-06-15] MEDS: warfarin 1 mg Tablet PO (12:57)
[2021-06-15] MEDS: metOLazone 5 MG Tablet 10 MG PO (16:39)
--- NOTE | 2021-06-15 17:01 | P.PN_ITS ---
Subjective Subjective: Interval history: Patient was seen this morning, she sitting up in a chair, she is on 2 L, complaining of bilateral extremity edema, denies any shortness of breath, discussed her echocardiogram finding, she was quite shocked with the results, she wants to know what her options are available to her, I discussed consultation with cardiology, medical management versus pursuing coronary angiography and, her concerns with contrast-induced nephropathy, Vitals/I&O/Wt Last Vital Signs Temp 97.5 F L 06/15/21 15:52 Pulse 97 06/15/21 15:52 Resp 18 06/15/21 15:52 BP 112/57 06/15/21 15:52 Pulse Ox 96 06/15/21 15:52 06/15/21 06/15/21 06/15/21 06:59 14:59 22:59 Intake Total 150 / 780 290 / 290 Balance 150 / 780 290 / 290 Weight last 48 hrs Weight 149.232 kg Physical Exam Const: COMMON NORMALS: no acute distress and patient oriented x3 Resp: COMMON NORMALS: normal respiratory effort, No retractions, No use of accessory muscles and clear to auscultation bilaterally AUSCULTATION: clear to auscultation bilaterally Cardio: COMMON NORMALS: regular rate, regular rhythm, S1 normal heart sound present and S2 normal heart sound present RATE: regular rate RHYTHM: regular rhythm HEART SOUNDS: S1 normal heart sound present and S2 normal heart sound present GI: COMMON NORMALS: Normal to inspection, nondistended, normoactive bowel sounds present, Soft to palpation and non-tender PALPATION: Yes Soft to palpation Extremity: NARRATIVE EXTREMITY EXAM: 2+ pedal edema bilaterally Neuro: COMMON NORMALS: patient oriented x3 Psych: COMMON NORMALS: mental status grossly normal Data : 06/15/21 05:04 06/15/21 05:04 Micro: Microbiology 06/13/21 14:55 Blood Culture - Preliminary Blood NEGATIVE TO DATE 06/13/21 14:55 Blood Culture - Preliminary Blood NEGATIVE TO DATE A&P Assessment and plan (1) Acute on chronic congestive heart failure: Acute on chronic systolic CHF exacerbation plan: -Creatinine 2.0, potassium 4.6 -lasix 40mg IV q12H, 1 dose of metolazone -fluid restriction <1200cc -Oxygen therapy -cardiac echocardiogram LV systolic function is severely reduced with EF of 20 to 25%. Right ventricle is hypokinetic. Left atrium is enlarged. Mitral and aortic valves are thickened. Mild mitral regurgitation. Mild pulmonic regurgitation. Trace tricuspid regurgitation. Compared to prior echocardiogram from 01/21/2021, LV systolic function has decreased further. -Consult cardiology, continue aspirin, Plavix, Coumadin, beta-efe -Possible concern for pneumonia, blood cultures, MRSA nares PCR, will start on Zosyn, de-escalate in the next 24 to 48 hours Insulin-dependent type 2 days mellitus, moderate dose sliding scale CAD, continue statin, Plavix Atrial fibrillation, concerns for RVR, during my examination heart rates would go into the high 120s, has been given 2 doses of 5 mg of metoprolol, heart rate under better control this morning, continue metoprolol 50 mg twice a day, 1.69, pharmacy dose Coumadin CKD, creatinine 2.0, continue to monitor Hypomagnesemia, 1.7 NSTEMI, likely supply demand ischemia from CHF as above, but cannot rule out underlying CAD given history of CAD and cardiac echocardiogram findings as above -Continue Plavix, continue beta-efe, continue Coumadin, continue statin -Telemetry monitoring -Serial EKGs, serial troponins -Cardiology consulted Full code Coumadin for DVT prophylaxis Status: Acute (2) Atrial fibrillation with RVR: Status: Acute (3) Atherosclerotic heart disease of [place] coronary artery with unstable angina pectoris: Status: Chronic Qualifiers: [place] vs. 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: with regional intermodal truck driver use Diabetes mellitus type: type 2 Qualified Code(s): E11.22 - Type 2 diabetes mellitus with diabetic chronic kidney disease; N18.32 - Chronic kidney disease, stage 3b; Z79.4 - group home (current) use of insulin Attestations Medical Necessity Statement*: Patient requires hospitalization for acute on chronic CHF exacerbation Coding Level of Care Code Acute 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 transplanted heart: [place] heart Dyslipidemia E78.5 CKD (chronic kidney disease) N18.9 Diabetes E11.22; N18.32; Z79.4 Chronic kidney disease stage: stage 3 (moderate) Chronic kidney disease stage 3 subtype: stage 3b (GFR 30-44) Diabetes mellitus complication detail: with chronic kidney disease Diabetes mellitus complication status: with kidney complications Diabetes mellitus longterm insulin use: with longterm use Diabetes mellitus type: type 2
[2021-06-15 17:05] LABS: Glucose Point of Care 137 mg/dL (70-110)
--- NOTE | 2021-06-15 17:59 | PM.CONSULT ---
Providers/Reason For Consult Consulting Physician/Specialty*: Ramon Garcia MD/ Cardiology Reason for Consult*: Worsening congestive heart failure Requesting Physician: Dr Ramos Attending Physician: Delgado Ramos MD Primary Care Provider: Pascual Kay MD History of Present Illness History of Present Illness Carole Lee is a 75 year old female past medical history of atrial fibrillation on Coumadin, chronic kidney disease chronic UTIs, hypothyroidism, coronary artery disease with prior stenting, insulin-dependent diabetes and congestive heart failure with EF of 35% presented to the hospital with worsening shortness of breath. And she was also experiencing bilateral lower extremity edema that was worsening. Has been going on for several weeks. Her compliance is questionable as she is not sure about her medications however mentions that her niece manages all her medications. She also has orthopnea. She underwent echocardiogram that demonstrated LV systolic function had decreased further to 20-25%. She denies any chest pain. On presentation her troponin was 110 which did not trend up significantly. EKG showed A. fib with RVR. Review of Systems Const: Denies: fever(s), chills, fatigue or malaise Eyes: Denies: change in vision or blurry vision ENMT: Denies: nasal congestion Card: Denies: chest pain Resp: Reports: dyspnea GI: Denies: abdominal pain, nausea, vomiting, diarrhea, constipation or melena : Denies: flank pain, dysuria or urinary frequency Skin/Breast: Denies: rash Neuro: Denies: dizziness Meds/Allergies Home Medications and Allergies Home Medications Medication Instructions Recorded Confirmed Last Taken Type levothyroxine 225 mcg PO DAILY@0500 09/08/19 06/13/21 06/13/21 History clopidogrel 75 mg PO DAILY@0800 11/29/20 06/13/21 06/13/21 History gabapentin 100 mg capsule 100 mg PO BID@08,1999 cap 12/05/20 06/13/21 06/13/21 History atorvastatin 80 mg PO BEDTIME@12/07/20 06/13/21 06/12/21 History calcitriol 0.25 mcg PO DAILY@0800 01/16/21 06/13/21 06/13/21 History Enema Disposable 118 ml [place] DAILY PRN 02/28/21 06/13/21 Unknown History citalopram 10 mg PO DAILY@0800 02/28/21 06/13/21 06/13/21 History docusate sodium 100 mg PO BEDTIME 02/28/21 06/13/21 06/12/21 History bumetanide 2 mg PO QAM 06/13/21 06/13/21 06/13/21 History empagliflozin [Jardiance] 10 mg PO DAILY 06/13/21 06/13/21 06/13/21 History folic acid 2 cap PO BEDTIME 06/13/21 06/13/21 Unknown History insulin aspart U-100 [Novolog See Rx Instructions .ROUTE .COMPLEX 06/13/21 06/13/21 Unknown History Flexpen U-100 Insulin] insulin detemir U-100 [Levemir 4 - 8 unit SUBCUT BEDTIME 06/13/21 06/13/21 Unknown History FlexTouch U-100 Insuln] meclizine 12.5 mg PO QAM 06/13/21 06/13/21 06/13/21 History metoprolol tartrate 25 mg PO BID 06/13/21 06/13/21 06/13/21 09:00 History mupirocin 1 applic TOPICAL BID PRN 06/13/21 06/13/21 Unknown History pantoprazole 40 mg PO QAM 06/13/21 06/13/21 06/13/21 History phenytoin sodium extended 200 mg PO BID 06/13/21 06/13/21 06/13/21 09:00 History potassium chloride 10 meq PO QAM 06/13/21 06/13/21 06/13/21 History sennosides-docusate sodium 1 tab PO QAM 06/13/21 06/13/21 06/13/21 History [Senna-S] warfarin 0.5 mg PO QAM 06/13/21 06/13/21 06/13/21 History Allergies Allergy/AdvReac Type Severity Reaction Status Date / Time gentamicin Allergy Unknown Verified 06/13/21 13:31 hydromorphone [From Dilaudid] Allergy Unknown Verified 06/13/21 13:31 Current Medications Current Medications Generic Name Dose Route Start Last Admin Trade Name Freq PRN Reason Stop Dose Admin Aspirin 81 mg 06/15/21 10:30 06/15/21 12:57 Aspirin 81 Mg Ec Tablet PO 81 mg DAILY ARMINDA Administration Atorvastatin Calcium 80 mg 06/14/21 20:00 06/14/21 20:22 Atorvastatin 40 Mg Tablet PO 80 mg BEDTIME@20 ARMINDA Administration Calcitriol 0.25 mcg 06/14/21 08:00 06/15/21 09:15 Calcitriol 0.25 Mcg Capsule PO 0.25 mcg DAILY@0800 ARMINDA Administration Citalopram Hydrobromide 10 mg 06/14/21 08:00 06/15/21 09:15 Citalopram 20 Mg Tablet PO 10 mg DAILY@0800 ARMINDA Administration Clopidogrel Bisulfate 75 mg 06/14/21 08:00 06/15/21 09:16 Clopidogrel 75 Mg Tablet PO 75 mg DAILY@0800 ARMINDA Administration Docusate Sodium 100 mg 06/13/21 21:12 06/14/21 22:42 Docusate Sodium 100 Mg Capsule PO 100 mg BEDTIME ARMINDA Administration Folic Acid 2 mg 06/14/21 21:00 06/14/21 22:43 Folic Acid 1 Mg Tablet PO 2 mg BEDTIME ARMINDA Administration Furosemide 40 mg 06/13/21 21:12 06/15/21 09:16 Furosemide 10 Mg/Ml Sdv 4ml IVP 40 mg Q12H ARMINDA Administration Gabapentin 100 mg 06/13/21 21:12 06/15/21 09:16 Gabapentin 100 Mg Capsule PO 100 mg BID@0800,1999 ARMINDA Administration Piperacillin Sod/Tazobactam 50 mls @ 12.5 mls/hr 06/13/21 23:00 06/15/21 16:28 Sod 3.375 gm/ Sodium Chloride IV 12.5 mls/hr Q8H ARMINDA Administration Protocol Insulin Human Lispro 0 unit 06/13/21 21:12 06/15/21 12:50 Insulin Lispro 100 Unit/1 Ml SUBCUT Not Given WM&BEDTIME ARMINDA Protocol Levothyroxine Sodium 200 mcg 06/14/21 05:00 06/15/21 05:47 Levothyroxine 200 Mcg Tablet PO 200 mcg DAILY@0500 ARMINDA Administration Levothyroxine Sodium 25 mcg 06/14/21 05:00 06/15/21 05:48 Levothyroxine 25 Mcg Tablet PO 25 mcg DAILY@0500 ARMINDA Administration Metoprolol Tartrate 50 mg 06/14/21 09:00 06/15/21 09:15 Metoprolol Tartrate 50 Mg Tablet PO 50 mg BID ARMINDA Administration Pantoprazole Sodium 40 mg 06/14/21 06:00 06/15/21 05:[address] 40 Mg Tablet PO 40 mg QAM ARMINDA Administration Phenytoin 200 mg 06/14/21 09:00 06/15/21 09:15 Phenytoin Er 100 Mg Capsule PO 200 mg BID ARMINDA Administration Potassium Chloride 10 meq 06/14/21 06:00 06/15/21 05:48 Potassium Chloride Er 10 Meq Tablet PO 10 meq QAM ARMINDA Administration Senna/Docusate Sodium 1 tab 06/14/21 06:00 06/15/21 05:48 Sennosides-Docusate Tablet PO 1 tab QAM ARMINDA Administration PFSH Acute PFSH: Medical History Afib Anemia Atrial fibrillation with RVR CAD (coronary artery disease) Chronic anticoagulation Eliquis CKD (chronic kidney disease) Congestive heart failure Diabetes Dyslipidemia Hematoma of left flank HTN (hypertension) Morbid obesity Morbid obesity PVD (peripheral vascular disease) 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) Status post insertion of drug-eluting stent into left anterior descending (LAD) artery Urine retention Venous stasis Surgical History History of ankle surgery History of cataract surgery History of cholecystectomy History of heart artery stent History of umbilical hernia repair S/P hemodialysis catheter insertion (11/22/20) Right internal jugular vein d/c 12/25/20 Family History Other Cancer Diabetes Social History Smoking and tobacco status: never smoked Alcohol intake: never Marital status: / Current occupational status: retired History of recent travel: No Vitals/I&O/Wt Last Vital Signs Temp 97.5 F L 06/15/21 15:52 Pulse 97 06/15/21 15:52 Resp 18 06/15/21 15:52 BP 112/57 06/15/21 15:52 Pulse Ox 96 06/15/21 15:52 06/15/21 06/15/21 06/15/21 06:59 14:59 22:59 Intake Total 150 / 780 290 / 290 Balance 150 / 780 290 / 290 Weight last 48 hrs Weight 329 lb Physical Exam Narrative: EXAM NARRATIVE: GENERAL: Patient is alert, awake and oriented x3. [] NECK: No jugular vein distension. [] HEENT: No cyanosis. No icterus. No pallor. [] HEART: Regular S1 and S2. No murmur, rub or gallop. [] LUNGS: Clear to auscultate bilaterally. [] ABDOMEN: Soft, nontender and nondistended. Positive bowel sounds. No guarding, rebound or tenderness. [] CENTRAL NERVOUS SYSTEM: Grossly nonfocal. [] EXTREMITIES: Lower extremities with 1+ edema bilaterally. Pulses palpable in the lower extremities, both dorsalis pedis and posterior tibial. [] Data Micro: Micro: Microbiology 06/13/21 14:55 Blood Culture - Pr eliminary Blood NEGATIVE TO JESSICA E 06/13/21 14:55 Blood Culture - Pr eliminary Blood NEGATIVE TO JESSICA E A&P Assessment and plan (1) Acute on chronic congestive heart failure: Status: Acute (2) CKD (chronic kidney disease): Status: Acute (3) Diabetes: Status: Acute Qualifiers: Chronic kidney disease stage: stage 3 (moderate) Chronic kidney disease stage 3 subtype: stage 3b (GFR 30-44) Diabetes mellitus complication detail: with chronic kidney disease Diabetes mellitus complication status: with kidney complications Diabetes mellitus senior care insulin use: with terminal block assembler use Diabetes mellitus type: type 2 Qualified Code(s): E11.22 - Type 2 diabetes mellitus with diabetic chronic kidney disease; N18.32 - Chronic kidney disease, stage 3b; Z79.4 - emt intermediate (current) use of insulin (4) Atrial fibrillation with RVR: Status: Acute (5) Dyslipidemia: Status: Chronic Patient is coming with acute on chronic congestive heart failure. Continue diuresis. Monitor creatinine as has chronic kidney disease. Given further decreasing LV systolic function, recommend ischemic work-up with Lexiscan. If significant ischemia is noted, will proceed with coronary angiogram. She is chest pain-free. Medical therapy at this time is appropriate as she is at risk of developing contrast-induced nephropathy with angiogram. Likely cause of ejection fraction reduction is atrial fibrillation as she came in with rapid ventricular rate. Continue current medications Low-sodium diet and fluid restriction. Strict I&O's. Thank you for involving us with care of this patient. We will continue to follow. Please call with questions. Coding Level of Care Code Acute Legal Instructor for [facility] Fwd Diagnoses Acute on chronic congestive heart failure I50.9 CKD (chronic kidney disease) N18.9 Diabetes E11.22; N18.32; Z79.4 Chronic kidney disease stage: stage 3 (moderate) Chronic kidney disease stage 3 subtype: stage 3b (GFR 30-44) Diabetes mellitus complication detail: with chronic kidney disease Diabetes mellitus complication status: with kidney complications Diabetes mellitus terminal block assembler insulin use: with senior care use Diabetes mellitus type: type 2 Atrial fibrillation with RVR I48.91 Dyslipidemia E78.5
[2021-06-15] MEDS: atorvastatin 40 mg Tablet 80 MG PO (20:24)
[2021-06-15] MEDS: docusate sodium 100 mg Capsule PO (20:24)
[2021-06-15] MEDS: folic acid 1 mg Tablet 2 MG PO (20:24)
[2021-06-15 20:57] LABS: Glucose Point of Care 161 mg/dL (70-110)
[2021-06-16 03:50] VITALS: BP 113/60; PULSE 80; RESP 18; TEMP 36.4; O2SAT 99
[2021-06-16 05:35] LABS: Basophils % 0.9 %; Eosinophils # 0.4 10^3/uL (0.0-0.8); Eosinophils % 9.3 %; Hematocrit 33.4 % (37.0-47.0); Hemoglobin 9.7 g/dL (11.5-15.3); Lymphocytes # 1.6 10^3/uL (0.8-4.8); Lymphocytes % 36.6 %; Mean Corpuscular Hemoglobin 29.5 pg (28.0-34.0); Mean Corpuscular Volume 101.5 fl (81-99); Mean Platelet Volume 11.1 fL (7.4-10.4); Monocytes # 0.5 10^3/uL (0.2-0.9); Monocytes % 11.3 %; Neutrophils % 41.7 %; Nucleated Red Blood Cells % 0 %; Platelet Count 142 10^3/cmm (130-400); Red Blood Count 3.29 10^6/uL (4.1-5.3); Red Cell Distribution Width 15.8 % (12.1-15.1); White Blood Count 4.3 10^3/uL (4.0-10.0)
[2021-06-16 05:55] LABS: INR 1.56 (0.8-1.2)
[2021-06-16 06:09] LABS: Alanine Aminotransferase 9 U/L (0-33); Albumin Level 2.6 g/dL (3.5-5.2); Alkaline Phosphatase 219 IU/L (35-105); Anion Gap 13.1 (5-19); Aspartate Amino Transferase 22 U/L (0-32); Blood Urea Nitrogen 30 mg/dL (8-23); Calcium 7.6 mg/dL (8.5-10.5); Carbon Dioxide 28 mmol/L (22-29); Chloride 100 mmol/L (98-107); Globulin 3.1 g/dL (1.3-4.6); Glucose 106 mg/dL (65-115); Magnesium 1.8 mg/dL (1.7-2.3); Osmolality Calculated 291 mOsm/kg (285-295); Phosphorus 4.3 mg/dL (2.5-4.5); Potassium 4.1 mmol/L (3.5-5.1); Sodium 137 mmol/L (136-145); Total Bilirubin 0.2 mg/dL (0.15-1.2); Total Protein 5.7 g/dL (6.6-8.7)
[2021-06-16] MEDS: piperacillin-tazobactam 3.375 GM in sodium chloride 0.9% (plus) 50 ML IV ×3 (06:10→23:56)
[2021-06-16] MEDS: potassium chloride ER 10 mEq Tablet PO (06:11)
[2021-06-16] MEDS: levothyroxine 25 mcg Tablet PO (06:11)
[2021-06-16] MEDS: levothyroxine 200 mcg Tablet PO (06:11)
[2021-06-16] MEDS: sennosides-docusate Tablet 1 TAB PO (06:11)
[2021-06-16] MEDS: pantoprazole DR 40 mg Tablet PO (06:11)
[2021-06-16 06:45] LABS: Glucose Point of Care 126 mg/dL (70-110)
[2021-06-16 07:41] VITALS: BP 98/48; PULSE 79; RESP 18; TEMP 36.6; O2SAT 93
[2021-06-16] MEDS: citalopram 20 mg Tablet 10 MG PO (08:27)
[2021-06-16] MEDS: aspirin 81 mg EC Tablet PO (08:27)
[2021-06-16] MEDS: phenytoin ER 100 mg Capsule 200 MG PO ×2 (08:27→16:40)
[2021-06-16] MEDS: clopidogrel 75 mg Tablet PO (08:27)
[2021-06-16] MEDS: calcitriol 0.25 mcg Capsule PO (08:27)
[2021-06-16] MEDS: FUROsemide 10 mg/mL SDV 4mL 40 MG IVP ×2 (08:27→21:16)
[2021-06-16] MEDS: metoprolol tartrate 50 mg Tablet PO ×2 (08:27→16:38)
[2021-06-16] MEDS: gabapentin 100 mg Capsule PO ×2 (08:27→20:30)
[2021-06-16 11:04] LABS: Glucose Point of Care 106 mg/dL (70-110)
[2021-06-16] MEDS: midodrine 5 mg TABLET 10 MG PO ×3 (11:13→20:30)
[2021-06-16] MEDS: metOLazone 5 MG Tablet 10 MG PO (11:13)
[2021-06-16 11:35] VITALS: BP 114/61; PULSE 78; RESP 18; TEMP 36.7; O2SAT 97
[2021-06-16 12:00] LABS: NT Pro B Type Natriuretic Pept 24958 pg/mL (0-450)
[2021-06-16] MEDS: warfarin 3 mg Tablet 1.5 MG PO (14:04)
[2021-06-16] MEDS: warfarin 1 mg Tablet PO (14:04)
--- NOTE | 2021-06-16 14:59 | PM.PN ---
Subjective Subjective: Interval history: Patient was seen this morning, she is on 2 L, she denies any chest pain, no palpitations, no shortness of breath, does have bilateral lower extremity edema Vitals/I&O/Wt Last Vital Signs Temp 98.1 F 06/16/21 11:35 Pulse 78 06/16/21 11:35 Resp 18 06/16/21 11:35 BP 114/61 06/16/21 11:35 Pulse Ox 97 06/16/21 11:35 06/15/21 06/16/21 06/16/21 22:59 06:59 14:59 Intake Total 170 / 460 50 / 510 168.958 / 168.958 Output Total 1000 / 1000 750 / 750 Balance 170 / 460 -950 / -490 -581.042 / -581.042 Physical Exam Const: COMMON NORMALS: no acute distress and patient oriented x3 Resp: COMMON NORMALS: normal respiratory effort, No retractions, No use of accessory muscles and clear to auscultation bilaterally AUSCULTATION: clear to auscultation bilaterally Cardio: COMMON NORMALS: regular rate, regular rhythm, S1 normal heart sound present and S2 normal heart sound present RATE: regular rate RHYTHM: regular rhythm HEART SOUNDS: S1 normal heart sound present and S2 normal heart sound present GI: COMMON NORMALS: Normal to inspection, nondistended, normoactive bowel sounds present, Soft to palpation and non-tender PALPATION: Yes Soft to palpation Extremity: NARRATIVE EXTREMITY EXAM: 1+ pitting edema bilaterally Neuro: COMMON NORMALS: patient oriented x3 Psych: COMMON NORMALS: mental status grossly normal Urinary Catheter Management^: Acevedo: Cath Placed During This Visit: yes Reason for Continuing Indwelling Catheter: Acute Urinary Retention or Obstruction Urinary Catheter Date of Insertion: 06/15/21 Urinary Catheter Time of Insertion: 18:22 Data : 06/16/21 03:04 06/16/21 03:04 A&P Assessment and plan (1) Acute on chronic congestive heart failure: Acute on chronic systolic CHF exacerbation plan: -Creatinine 2.1, potassium 4.1 -lasix 40mg IV q12H, 1 dose of metolazone -fluid restriction <1200cc -Oxygen therapy -cardiac echocardiogram LV systolic function is severely reduced with EF of 20 to 25%. Right ventricle is hypokinetic. Left atrium is enlarged. Mitral and aortic valves are thickened. Mild mitral regurgitation. Mild pulmonic regurgitation. Trace tricuspid regurgitation. Compared to prior echocardiogram from 01/21/2021, LV systolic function has decreased further. -Consult cardiology, continue aspirin, Plavix, Coumadin, beta-efe -Will likely require stress testing on Friday -Possible concern for pneumonia, blood cultures negative so far, MRSA nares PCR negative, will start on Zosyn, continue Zosyn for now Insulin-dependent type 2 days mellitus, moderate dose sliding scale CAD, continue statin, Plavix Atrial fibrillation, concerns for RVR, during my examination heart rates would go into the high 120s, has been given 2 doses of 5 mg of metoprolol, heart rate under better control this morning, continue metoprolol 50 mg twice a day, pharmacy dose Coumadin, INR 1.56 today CKD, creatinine 2.1 continue to monitor Hypomagnesemia, monitor NSTEMI, likely supply demand ischemia from CHF as above, but cannot rule out underlying CAD given history of CAD and cardiac echocardiogram findings as above -Continue Plavix, continue beta-efe, continue Coumadin, continue statin -Telemetry monitoring -Serial EKGs, serial troponins -Cardiology consulted Full code Coumadin for DVT prophylaxis Status: Acute (2) Atrial fibrillation with RVR: Status: Acute (3) Atherosclerotic heart disease of [place] coronary artery with unstable angina pectoris: Status: Chronic Qualifiers: [place] vs. transplanted heart: [place] heart Qualified Code(s): I25.110 - Atherosclerotic heart disease of [place] coronary artery with unstable angina pectoris (4) Dyslipidemia: Status: Chronic (5) CKD (chronic kidney disease): Status: Acute (6) Diabetes: Status: Acute Qualifiers: Chronic kidney disease stage: stage 3 (moderate) Chronic kidney disease stage 3 subtype: stage 3b (GFR 30-44) Diabetes mellitus complication detail: with chronic kidney disease Diabetes mellitus complication status: with kidney complications Diabetes mellitus local company intermodal truck driver insulin use: with senior living use Diabetes mellitus type: type 2 Qualified Code(s): E11.22 - Type 2 diabetes mellitus with diabetic chronic kidney disease; N18.32 - Chronic kidney disease, stage 3b; Z79.4 - regional intermodal truck driver (current) use of insulin Attestations Medical Necessity Statement*: Patient requires hospitalization for CHF exacerbation, decreased ejection fraction, systolic Coding Level of Care Code Acute Materials Development Engineer for [facility] Diagnoses Acute on chronic congestive heart failure I50.9 Atrial fibrillation with RVR I48.91 Atherosclerotic heart disease of [place] coronary artery with unstable angina pectoris I25.110 [place] vs. transplanted heart: [place] heart Dyslipidemia E78.5 CKD (chronic kidney disease) N18.9 Diabetes E11.22; N18.32; Z79.4 Chronic kidney disease stage: stage 3 (moderate) Chronic kidney disease stage 3 subtype: stage 3b (GFR 30-44) Diabetes mellitus complication detail: with chronic kidney disease Diabetes mellitus complication status: with kidney complications Diabetes mellitus senior living insulin use: with local company intermodal truck driver use Diabetes mellitus type: type 2
[2021-06-16 15:46] VITALS: BP 113/64; PULSE 78; RESP 18; TEMP 36.4; O2SAT 97
--- NOTE | 2021-06-16 15:46 | PC.SOCIAL ---
Pg 2 IMM. Explained to pt Pg 2 IMM. No questions voiced. Provided pt a copy. Initialed, dated, & timed a copy & placed in chart.
[2021-06-16 17:04] LABS: Glucose Point of Care 141 mg/dL (70-110)
[2021-06-16 20:00] VITALS: BP 116/51; PULSE 75; RESP 18; TEMP 36.7; O2SAT 93
[2021-06-16] MEDS: folic acid 1 mg Tablet 2 MG PO (20:31)
[2021-06-16] MEDS: docusate sodium 100 mg Capsule PO (20:31)
[2021-06-16] MEDS: atorvastatin 40 mg Tablet 80 MG PO (20:31)
[2021-06-16 20:56] LABS: Glucose Point of Care 145 mg/dL (70-110)
[2021-06-17] VITALS (7 sets, daily range): BP systolic 118–137; BP diastolic 62–84; PULSE 63–72; RESP 15–19; TEMP 36.4–37.1; O2SAT 93–100
[2021-06-17] MEDS: sennosides-docusate Tablet 1 TAB PO (05:24)
[2021-06-17] MEDS: pantoprazole DR 40 mg Tablet PO (05:24)
[2021-06-17] MEDS: potassium chloride ER 10 mEq Tablet PO (05:24)
[2021-06-17] MEDS: levothyroxine 200 mcg Tablet PO (05:25)
[2021-06-17] MEDS: levothyroxine 25 mcg Tablet PO (05:25)
[2021-06-17 05:49] LABS: Basophils # 0.1 10^3/uL (0.0-0.1); Eosinophils # 0.5 10^3/uL (0.0-0.8); Eosinophils % 9.3 %; Hematocrit 39.5 % (37.0-47.0); Lymphocytes # 1.6 10^3/uL (0.8-4.8); Mean Corpuscular HGB Conc 27.8 g/dL (30.0-36.0); Mean Corpuscular Hemoglobin 30.1 pg (28.0-34.0); Mean Corpuscular Volume 107.9 fl (81-99); Mean Platelet Volume 10.8 fL (7.4-10.4); Monocytes # 0.5 10^3/uL (0.2-0.9); Neutrophils # 2.11 10^3/uL (1.8-7.7); Neutrophils % 43.9 %; Nucleated Red Blood Cells % 0 %; Platelet Count 138 10^3/cmm (130-400); Red Blood Count 3.66 10^6/uL (4.1-5.3); Red Cell Distribution Width 15.6 % (12.1-15.1); White Blood Count 4.8 10^3/uL (4.0-10.0)
[2021-06-17 06:21] LABS: Alanine Aminotransferase 10 U/L (0-33); Albumin Level 2.5 g/dL (3.5-5.2); Alkaline Phosphatase 222 IU/L (35-105); Blood Urea Nitrogen 31 mg/dL (8-23); Calcium 7.7 mg/dL (8.5-10.5); Carbon Dioxide 25 mmol/L (22-29); Chloride 101 mmol/L (98-107); Globulin 3.4 g/dL (1.3-4.6); Glucose 99 mg/dL (65-115); Magnesium 1.7 mg/dL (1.7-2.3); Osmolality Calculated 289 mOsm/kg (285-295); Phosphorus 3.8 mg/dL (2.5-4.5); Sodium 136 mmol/L (136-145); Total Bilirubin 0.3 mg/dL (0.15-1.2); Total Protein 5.9 g/dL (6.6-8.7)
[2021-06-17 06:24] LABS: Anion Gap 14.3 (5-19); Aspartate Amino Transferase 26 U/L (0-32); Potassium 4.3 mmol/L (3.5-5.1)
[2021-06-17 07:29] LABS: Glucose Point of Care 90 mg/dL (70-110)
[2021-06-17] MEDS: piperacillin-tazobactam 3.375 GM in sodium chloride 0.9% (plus) 50 ML IV ×3 (07:48→23:22)
[2021-06-17] MEDS: phenytoin ER 100 mg Capsule 200 MG PO ×2 (07:50→16:52)
[2021-06-17] MEDS: clopidogrel 75 mg Tablet PO (07:50)
[2021-06-17] MEDS: calcitriol 0.25 mcg Capsule PO (07:50)
[2021-06-17] MEDS: citalopram 20 mg Tablet 10 MG PO (07:50)
[2021-06-17] MEDS: FUROsemide 10 mg/mL SDV 4mL 40 MG IVP (07:50)
[2021-06-17] MEDS: metoprolol tartrate 50 mg Tablet PO ×2 (07:51→16:52)
[2021-06-17] MEDS: gabapentin 100 mg Capsule PO ×2 (07:51→21:26)
[2021-06-17] MEDS: midodrine 5 mg TABLET 10 MG PO ×3 (07:51→21:27)
[2021-06-17] MEDS: aspirin 81 mg EC Tablet PO (07:51)
--- NOTE | 2021-06-17 09:34 | ECG_ITS ---
[facility] Test Date: 2021-06-18 Pat Name: Carole Lee Department: Room: 254 Gender: Female Weatherization Coordinator: Daxa Jackelin : 1945 Requested By: Delgado Ramos Order Number: [id number] Danielle MD: Ramon Garcia M.D. Interpretive Statements NAME OF STUDY: LEXISCAN SESTAMIBI STRESS TEST INDICATION: [Drop in ejection fraction, ] Procedure: At the baseline, the blood pressure was 119/90 mmHg with a heart rate of 70 bpm. The electrocardiogram showed atrial fibrillation, right axis deviation, prior septal infarct, no significant ST-T wave changes. The Lexiscan was infused over a period of 20 seconds. A total of 0.4 mg of Lexiscan was infused. The stress phase was continued for a total of 5 minutes. Heart rate was at the end of stress phase was 74 bpm and a blood pressure of 127/59mmHg. The EKG at the peak infusion revealed atrial fibrillation with no significant ST-T wave changes. Occasional PVCs were noted. Sestamibi was injected 20 seconds after the Lexiscan infusion. Blood pressure at the end of recovery phase was 122/59mmHg with a heart rate of 71 bpm. Conclusion: 1. Normal EKG response to Lexiscan infusion 2. No Lexiscan induced chest pain or cardiac arrhythmia. 3. Normal blood pressure and heart rate response. 4. Sestamibi/sestamibi perfusion scan pending; see separate report. Electronically Signed On 07-07-2021 12:24:05 HEALTH INFORMATION TECHNOLOGIST by Ramon Garcia M.D. [id number]
[2021-06-17 10:48] LABS: INR 1.68 (0.8-1.2)
[2021-06-17 11:10] LABS: Glucose Point of Care 124 mg/dL (70-110)
--- NOTE | 2021-06-17 12:33 | P.PN_ITS ---
Subjective Subjective: Interval history: Patient was seen this morning, denies any chest pain, she tells me her edema has improved, is on 1 L nasal cannula Vitals/I&O/Wt Last Vital Signs Temp 98.1 F 06/17/21 11:59 Pulse 63 06/17/21 11:59 Resp 18 06/17/21 11:59 BP 126/72 06/17/21 11:59 Pulse Ox 98 06/17/21 11:59 06/16/21 06/17/21 06/17/21 22:59 06:59 14:59 Intake Total 530 / 698.958 50 / 748.958 250 / 250 Output Total 1700 / 2450 Balance 530 / -51.042 -1650 / -1701.042 250 / 250 Physical Exam Const: COMMON NORMALS: no acute distress and patient oriented x3 Resp: COMMON NORMALS: normal respiratory effort, No retractions, No use of accessory muscles and clear to auscultation bilaterally AUSCULTATION: clear to auscultation bilaterally Cardio: COMMON NORMALS: regular rate, regular rhythm, S1 normal heart sound present and S2 normal heart sound present RATE: regular rate RHYTHM: regular rhythm HEART SOUNDS: S1 normal heart sound present and S2 normal heart sound present GI: COMMON NORMALS: Normal to inspection, nondistended, normoactive bowel sounds present, Soft to palpation and non-tender PALPATION: Yes Soft to palpation Extremity: COMMON NORMALS: no pedal edema Neuro: COMMON NORMALS: patient oriented x3 Psych: COMMON NORMALS: mental status grossly normal Urinary Catheter Management^: Acevedo: Cath Placed During This Visit: yes Reason for Continuing Indwelling Catheter: Accurate Measurement of Urinary Output in Critically Ill Patients Urinary Catheter Date of Insertion: 06/15/21 Urinary Catheter Time of Insertion: 18:22 Data : 06/17/21 05:05 06/17/21 05:05 A&P Assessment and plan (1) Acute on chronic congestive heart failure: Acute on chronic systolic CHF exacerbation plan: -Creatinine 2.3, potassium 4.3 -lasix 40mg IV q12H currently on hold given elevated creatinine -fluid restriction <1200cc -Oxygen therapy -cardiac echocardiogram LV systolic function is severely reduced with EF of 20 to 25%. Right ventricle is hypokinetic. Left atrium is enlarged. Mitral and aortic valves are thickened. Mild mitral regurgitation. Mild pulmonic regurgitation. Trace tricuspid regurgitation. Compared to prior echocardiogram from 01/21/2021, LV systolic function has decreased further. -Consult cardiology, continue aspirin, Plavix, Coumadin, beta-efe -N.p.o. midnight, stress test tomorrow morning -Currently on Zosyn for concern for pneumonia Insulin-dependent type 2 days mellitus, moderate dose sliding scale CAD, continue statin, Plavix Atrial fibrillation, concerns for RVR, during my examination heart rates would go into the high 120s, has been given 2 doses of 5 mg of metoprolol, heart rate under better control this morning, continue metoprolol 50 mg twice a day, pharmacy dose Coumadin, INR 1.68 CKD, creatinine 2.4 continue to monitor Hypomagnesemia, monitor NSTEMI, likely supply demand ischemia from CHF as above, but cannot rule out underlying CAD given history of CAD and cardiac echocardiogram findings as above -Continue Plavix, continue beta-efe, continue Coumadin, continue statin -Telemetry monitoring -Serial EKGs, serial troponins -Cardiology consulted Full code Coumadin for DVT prophylaxis Status: Acute (2) Atrial fibrillation with RVR: Status: Acute (3) Atherosclerotic heart disease of [place] coronary artery with unstable angina pectoris: Status: Chronic Qualifiers: [place] vs. transplanted heart: [place] heart Qualified Code(s): I25.110 - Atherosclerotic heart disease of [place] coronary artery with unstable angina pectoris (4) Dyslipidemia: Status: Chronic (5) CKD (chronic kidney disease): Status: Acute (6) Diabetes: Status: Acute Qualifiers: Chronic kidney disease stage: stage 3 (moderate) Chronic kidney disease stage 3 subtype: stage 3b (GFR 30-44) Diabetes mellitus complication detail: with chronic kidney disease Diabetes mellitus complication status: with kidney complications Diabetes mellitus jail insulin use: with terminal superintendent use Diabetes mellitus type: type 2 Qualified Code(s): E11.22 - Type 2 diabetes mellitus with diabetic chronic kidney disease; N18.32 - Chronic kidney disease, stage 3b; Z79.4 - senior care (current) use of insulin Attestations Medical Necessity Statement*: Patient requires hospitalization for acute respiratory failure, decreased ejection fraction, NSTEMI, proceeding with stress testing tomorrow morning Coding Level of Care Code Acute [facility] for [facility] Diagnoses Acute on chronic congestive heart failure I50.9 Atrial fibrillation with RVR I48.91 Atherosclerotic heart disease of [place] coronary artery with unstable angina pectoris I25.110 [place] vs. transplanted heart: [place] heart Dyslipidemia E78.5 CKD (chronic kidney disease) N18.9 Diabetes E11.22; N18.32; Z79.4 Chronic kidney disease stage: stage 3 (moderate) Chronic kidney disease stage 3 subtype: stage 3b (GFR 30-44) Diabetes mellitus complication detail: with chronic kidney disease Diabetes mellitus complication status: with kidney complications Diabetes mellitus terminal superintendent insulin use: with jail use Diabetes mellitus type: type 2
[2021-06-17] MEDS: warfarin 3 mg Tablet 1.5 MG PO (12:47)
[2021-06-17 13:45] LABS: Vitamin B12 659 pg/mL (232-1245)
[2021-06-17 14:37] LABS: LAB Peripheral Smear Sent for Review
[2021-06-17 15:29] LABS: Folate Level > 20.0 ng/mL (4.8-37.3)
[2021-06-17] MEDS: warfarin 1 mg Tablet PO (16:53)
[2021-06-17 17:12] LABS: Glucose Point of Care 179 mg/dL (70-110)
[2021-06-17 20:13] LABS: Glucose Point of Care 197 mg/dL (70-110)
[2021-06-17] MEDS: docusate sodium 100 mg Capsule PO (21:26)
[2021-06-17] MEDS: folic acid 1 mg Tablet 2 MG PO (21:26)
[2021-06-17] MEDS: atorvastatin 40 mg Tablet 80 MG PO (21:26)
[2021-06-18] VITALS (7 sets, daily range): BP systolic 99–133; BP diastolic 54–81; PULSE 66–97; RESP 16–18; TEMP 36.6–37.1; O2SAT 93–98
[2021-06-18] MEDS: pantoprazole DR 40 mg Tablet PO (05:10)
[2021-06-18] MEDS: levothyroxine 25 mcg Tablet PO (05:10)
[2021-06-18] MEDS: sennosides-docusate Tablet 1 TAB PO (05:10)
[2021-06-18] MEDS: potassium chloride ER 10 mEq Tablet PO (05:10)
[2021-06-18] MEDS: levothyroxine 200 mcg Tablet PO (05:10)
[2021-06-18 06:06] LABS: Basophils % 0.7 %; Eosinophils # 0.4 10^3/uL (0.0-0.8); Hematocrit 40.3 % (37.0-47.0); Hemoglobin 11.6 g/dL (11.5-15.3); Lymphocytes % 36.1 %; Mean Corpuscular HGB Conc 28.8 g/dL (30.0-36.0); Mean Corpuscular Hemoglobin 30.4 pg (28.0-34.0); Mean Corpuscular Volume 105.5 fl (81-99); Mean Platelet Volume 10.5 fL (7.4-10.4); Monocytes # 0.6 10^3/uL (0.2-0.9); Monocytes % 11.7 %; Neutrophils # 2.33 10^3/uL (1.8-7.7); Neutrophils % 43.1 %; Nucleated Red Blood Cells % 0 %; Platelet Count 137 10^3/cmm (130-400); Red Blood Count 3.82 10^6/uL (4.1-5.3); Red Cell Distribution Width 15.9 % (12.1-15.1); White Blood Count 5.4 10^3/uL (4.0-10.0)
[2021-06-18] MEDS: piperacillin-tazobactam 3.375 GM in sodium chloride 0.9% (plus) 50 ML IV ×2 (06:08→14:30)
[2021-06-18 06:14] LABS: INR 1.61 (0.8-1.2)
[2021-06-18 06:35] LABS: Alanine Aminotransferase 9 U/L (0-33); Albumin Level 2.4 g/dL (3.5-5.2); Alkaline Phosphatase 195 IU/L (35-105); Anion Gap 17.8 (5-19); Aspartate Amino Transferase 20 U/L (0-32); Blood Urea Nitrogen 29 mg/dL (8-23); Calcium 7.5 mg/dL (8.5-10.5); Carbon Dioxide 23 mmol/L (22-29); Chloride 101 mmol/L (98-107); Globulin 3.2 g/dL (1.3-4.6); Glucose 110 mg/dL (65-115); Magnesium 1.7 mg/dL (1.7-2.3); Osmolality Calculated 292 mOsm/kg (285-295); Phosphorus 3.4 mg/dL (2.5-4.5); Potassium 3.8 mmol/L (3.5-5.1); Sodium 138 mmol/L (136-145); Total Bilirubin 0.3 mg/dL (0.15-1.2); Total Protein 5.6 g/dL (6.6-8.7)
[2021-06-18 07:15] LABS: NT Pro B Type Natriuretic Pept 31407 pg/mL (0-450)
[2021-06-18] MEDS: metoprolol tartrate 50 mg Tablet PO ×2 (08:10→17:37)
[2021-06-18] MEDS: clopidogrel 75 mg Tablet PO (08:10)
[2021-06-18] MEDS: aspirin 81 mg EC Tablet PO (08:11)
[2021-06-18] MEDS: phenytoin ER 100 mg Capsule 200 MG PO ×2 (08:11→17:37)
[2021-06-18] MEDS: midodrine 5 mg TABLET 10 MG PO ×3 (08:11→21:16)
[2021-06-18] MEDS: citalopram 20 mg Tablet 10 MG PO (08:11)
[2021-06-18] MEDS: calcitriol 0.25 mcg Capsule PO (08:11)
[2021-06-18] MEDS: gabapentin 100 mg Capsule PO ×2 (08:11→21:15)
[2021-06-18 08:24] LABS: Glucose Point of Care 116 mg/dL (70-110)
--- NOTE | 2021-06-18 09:34 | NMCV_ITS ---
NM tobi perf SPECT r/s* [id number] Carole Lee Age: 75 Gender: F : 1945 Exam Date: 06/18/2021 11:51 Ordering Phys: Delgado Ramos MD Technologist: JERRY Whitaker Exam Location: [facility] Indications: CHEST PAIN STRESS TEST [facility] IMAGE PROTOCOL Rest/Stress 1 Lexiscan Day Radiopharmaceutical Dose (mCi) Administration Site Administered by Rest: Tc-99m 11.0 IV JERRY Whitaker Sestamibi Stress:Tc-99m 33.0 IV JERRY Gonzales Sestamibi Rest: 18-Jun-2021 60 Discovery 630 Stress: 18-Jun-2021 30 Discovery 630 0.4mg Lexiscan. Supine position only as patient was unable to lay prone. SPECT RESULTS Technical Quality: Excellent Raw Data Analysis: Breast attenuation, Soft tissue attenuation Image Corrections: No attenuation or motion correction applied Summed Stress Score: 15 Summed Rest Score: 9 Summed Difference Score: 7 PERFUSION FINDINGS There is a large reversible perfusion defect noted in inferolateral, inferior and apical chaudhary. This is consistent with prior infarct with significant [place]- infarct ischemia. FUNCTIONAL RESULTS (calculated via Gated SPECT) Stress Image LV EF (%): 32 Stress EDV (mL):143 TID: 1.04 Stress ESV (mL):97 FUNCTIONAL FINDINGS: LV systolic function is severely reduced with EF of 32% IMPRESSIONS 1. Abnormal myocardial perfusion imaging with large sized infarct with significant [place]-infarct ischemia noted in left circumflex artery and RCA territory. 2. LV systolic function is severely reduced Ramon Garcia MD (Electronically Signed) Final Date: 18 June 2021 18:43 S
--- NOTE | 2021-06-18 11:32 | PC.SOCIAL ---
Pg 2 IMM. Explained to pt Pg 2 IMM. No questions voiced. Provided pt a copy. Initialed, dated, & timed a copy & placed in chart.
[2021-06-18 12:00] LABS: Glucose Point of Care 120 mg/dL (70-110)
[2021-06-18] MEDS: regadenoson 0.4 Mg/5 ml Syringe IVP (12:51)
[2021-06-18] MEDS: warfarin 3 mg Tablet 1.5 MG PO (14:28)
[2021-06-18 17:21] LABS: Glucose Point of Care 136 mg/dL (70-110)
--- NOTE | 2021-06-18 20:06 | PM.PN ---
Subjective Subjective: Interval history: Patient was seen and examined this morning, deny any chest pain, sob has improved. awaiting stress test. Medications: Reviewed: Yes Vitals/I&O/Wt Last Vital Signs Temp 98.4 F 06/18/21 15:26 Pulse 66 06/18/21 15:26 Resp 16 06/18/21 15:26 BP 133/61 06/18/21 15:26 Pulse Ox 94 06/18/21 15:26 06/18/21 06/18/21 06/18/21 06:59 14:59 22:59 Intake Total 530 / 1070 50 / 50 50 / 100 Output Total 500 / 500 Balance 530 / 545 50 / 50 -450 / -400 Physical Exam Const: COMMON NORMALS: patient oriented x3 HENMT: COMMON NORMALS: normocephalic and atraumatic HEAD & SCALP: normocephalic and atraumatic Resp: COMMON NORMALS: clear to auscultation bilaterally EFFORT & INSPECTION: Yes symmetric chest movement AUSCULTATION: clear to auscultation bilaterally Cardio: COMMON NORMALS: regular rate, regular rhythm, S1 normal heart sound present, S2 normal heart sound present, No gallops present (Cardio), No murmurs present (Cardio), No rub (Cardio) and Peripheral pulses 2+ throughout RATE: regular rate RHYTHM: regular rhythm HEART SOUNDS: S1 normal heart sound present and S2 normal heart sound present PERIPHERAL PULSES: Peripheral pulses 2+ throughout GI: COMMON NORMALS: Normal to inspection, nondistended, normoactive bowel sounds present, Soft to palpation, non-tender, No hepatosplenomegaly present and no masses AUSCULTATION: Yes normoactive bowel sounds PALPATION: Yes Soft to palpation and Yes No hepatosplenomegaly present RECTAL EXAM: deferred Extremity: COMMON NORMALS: no clubbing, cyanosis or edema and no pedal edema Neuro: COMMON NORMALS: patient oriented x3 Urinary Catheter Management^: Acevedo: Cath Placed During This Visit: yes Reason for Continuing Indwelling Catheter: Accurate Measurement of Urinary Output in Critically Ill Patients Urinary Catheter Date of Insertion: 06/15/21 Urinary Catheter Time of Insertion: 18:22 Data : 06/18/21 04:51 06/18/21 04:51 Micro: Microbiology 06/13/21 14:55 Blood Culture - Final Blood NO GROWTH AFTER 5 DAYS 06/13/21 14:55 Blood Culture - Final Blood NO GROWTH AFTER 5 DAYS A&P Assessment and plan (1) Acute on chronic congestive heart failure: Acute on chronic systolic CHF exacerbation plan: -Creatinine 2.3, potassium 4.3 -lasix 40mg IV q12H currently on hold given elevated creatinine -fluid restriction <1200cc -Oxygen therapy -cardiac echocardiogram LV systolic function is severely reduced with EF of 20 to 25%. Right ventricle is hypokinetic. Left atrium is enlarged. Mitral and aortic valves are thickened. Mild mitral regurgitation. Mild pulmonic regurgitation. Trace tricuspid regurgitation. Compared to prior echocardiogram from 01/21/2021, LV systolic function has decreased further. -Consult cardiology, continue aspirin, Plavix, Coumadin, beta-efe -N.p.o. midnight, stress test tomorrow morning -Currently on Zosyn for concern for pneumonia Insulin-dependent type 2 days mellitus, moderate dose sliding scale CAD, continue statin, Plavix Atrial fibrillation, concerns for RVR, during my examination heart rates would go into the high 120s, has been given 2 doses of 5 mg of metoprolol, heart rate under better control this morning, continue metoprolol 50 mg twice a day, pharmacy dose Coumadin, INR 1.68 CKD, creatinine 2.4 continue to monitor Hypomagnesemia, monitor NSTEMI, likely supply demand ischemia from CHF as above, but cannot rule out underlying CAD given history of CAD and cardiac echocardiogram findings as above -Continue Plavix, continue beta-efe, continue Coumadin, continue statin -Telemetry monitoring -Serial EKGs, serial troponins -Cardiology consulted Full code Coumadin for DVT prophylaxis Status: Acute (2) Atrial fibrillation with RVR: Status: Acute (3) Atherosclerotic heart disease of [place] coronary artery with unstable angina pectoris: Status: Chronic Qualifiers: [place] vs. transplanted heart: [place] heart Qualified Code(s): I25.110 - Atherosclerotic heart disease of [place] coronary artery with unstable angina pectoris (4) Dyslipidemia: Status: Chronic (5) CKD (chronic kidney disease): Status: Acute (6) Diabetes: Status: Acute Qualifiers: Chronic kidney disease stage: stage 3 (moderate) Chronic kidney disease stage 3 subtype: stage 3b (GFR 30-44) Diabetes mellitus complication detail: with chronic kidney disease Diabetes mellitus complication status: with kidney complications Diabetes mellitus ferry terminal agent insulin use: with ferry terminal agent use Diabetes mellitus type: type 2 Qualified Code(s): E11.22 - Type 2 diabetes mellitus with diabetic chronic kidney disease; N18.32 - Chronic kidney disease, stage 3b; Z79.4 - alf (current) use of insulin Attestations Medical Necessity Statement*: Patient needs to be in hospital for the management of heart failure as well as NSTEMI Coding Level of Care Code Acute 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 transplanted heart: [place] heart Dyslipidemia E78.5 CKD (chronic kidney disease) N18.9 Diabetes E11.22; N18.32; Z79.4 Chronic kidney disease stage: stage 3 (moderate) Chronic kidney disease stage 3 subtype: stage 3b (GFR 30-44) Diabetes mellitus complication detail: with chronic kidney disease Diabetes mellitus complication status: with kidney complications Diabetes mellitus ferry terminal agent insulin use: with [facility] use Diabetes mellitus type: type 2
[2021-06-18] MEDS: atorvastatin 40 mg Tablet 80 MG PO (21:14)
[2021-06-18] MEDS: docusate sodium 100 mg Capsule PO (21:15)
[2021-06-18] MEDS: folic acid 1 mg Tablet 2 MG PO (21:15)
[2021-06-18 22:45] LABS: Glucose Point of Care 173 mg/dL (70-110)
[2021-06-19] VITALS (7 sets, daily range): BP systolic 116–171; BP diastolic 59–84; PULSE 64–87; RESP 16–19; TEMP 36.3–37.1; O2SAT 93–98
[2021-06-19] MEDS: piperacillin-tazobactam 3.375 GM in sodium chloride 0.9% (plus) 50 ML IV ×3 (00:12→15:04)
[2021-06-19] MEDS: pantoprazole DR 40 mg Tablet PO (05:50)
[2021-06-19] MEDS: levothyroxine 200 mcg Tablet PO (05:50)
[2021-06-19] MEDS: levothyroxine 25 mcg Tablet PO (05:50)
[2021-06-19] MEDS: potassium chloride ER 10 mEq Tablet PO (05:50)
[2021-06-19] MEDS: sennosides-docusate Tablet 1 TAB PO (05:50)
[2021-06-19 06:22] LABS: Basophils # 0.1 10^3/uL (0.0-0.1); Basophils % 0.9 %; Eosinophils # 0.4 10^3/uL (0.0-0.8); Eosinophils % 7.1 %; Hemoglobin 11.4 g/dL (11.5-15.3); Lymphocytes # 1.8 10^3/uL (0.8-4.8); Lymphocytes % 30.5 %; Mean Corpuscular Hemoglobin 29.8 pg (28.0-34.0); Mean Corpuscular Volume 99.5 fl (81-99); Mean Platelet Volume 10.6 fL (7.4-10.4); Monocytes # 0.5 10^3/uL (0.2-0.9); Monocytes % 8.6 %; Neutrophils # 3.05 10^3/uL (1.8-7.7); Neutrophils % 52.6 %; Nucleated Red Blood Cells % 0 %; Platelet Count 158 10^3/cmm (130-400); Red Blood Count 3.82 10^6/uL (4.1-5.3); Red Cell Distribution Width 15.9 % (12.1-15.1); White Blood Count 5.8 10^3/uL (4.0-10.0)
[2021-06-19 06:32] LABS: INR 2.24 (0.8-1.2)
[2021-06-19 06:38] LABS: Alanine Aminotransferase 9 U/L (0-33); Albumin Level 2.8 g/dL (3.5-5.2); Alkaline Phosphatase 189 IU/L (35-105); Anion Gap 16.6 (5-19); Aspartate Amino Transferase 22 U/L (0-32); Blood Urea Nitrogen 28 mg/dL (8-23); Calcium 7.7 mg/dL (8.5-10.5); Carbon Dioxide 26 mmol/L (22-29); Chloride 101 mmol/L (98-107); Glucose 106 mg/dL (65-115); Magnesium 1.5 mg/dL (1.7-2.3); Osmolality Calculated 296 mOsm/kg (285-295); Phosphorus 3.1 mg/dL (2.5-4.5); Potassium 3.6 mmol/L (3.5-5.1); Sodium 140 mmol/L (136-145); Total Bilirubin 0.2 mg/dL (0.15-1.2); Total Protein 5.8 g/dL (6.6-8.7)
[2021-06-19 06:39] LABS: Glucose Point of Care 112 mg/dL (70-110)
[2021-06-19 07:11] LABS: NT Pro B Type Natriuretic Pept 33774 pg/mL (0-450)
[2021-06-19] MEDS: calcitriol 0.25 mcg Capsule PO (08:17)
[2021-06-19] MEDS: clopidogrel 75 mg Tablet PO (08:17)
[2021-06-19] MEDS: phenytoin ER 100 mg Capsule 200 MG PO ×2 (08:18→16:45)
[2021-06-19] MEDS: metoprolol tartrate 50 mg Tablet PO ×2 (08:18→16:45)
[2021-06-19] MEDS: aspirin 81 mg EC Tablet PO (08:18)
[2021-06-19] MEDS: midodrine 5 mg TABLET 10 MG PO (08:18)
[2021-06-19] MEDS: gabapentin 100 mg Capsule PO ×2 (08:19→22:17)
[2021-06-19] MEDS: citalopram 20 mg Tablet 10 MG PO (08:20)
--- NOTE | 2021-06-19 10:58 | PM.PN ---
Subjective Subjective: Interval history: Patient feels better. Denies chest pain. Had stress test yesterday that showed prior infarct with [place]-infarct ischemia in LCx and RCA territory. Vitals/I&O/Wt Last Vital Signs Temp 98.0 F 06/19/21 08:00 Pulse 73 06/19/21 08:00 Resp 16 06/19/21 08:00 BP 131/59 06/19/21 08:00 Pulse Ox 96 06/19/21 08:00 06/18/21 06/19/21 06/19/21 22:59 06:59 14:59 Intake Total 290 / 340 50 / 390 Output Total 500 / 500 Balance -210 / -160 50 / -110 Physical Exam Narrative: EXAM NARRATIVE: GENERAL: Patient is alert, awake and oriented x3. [] NECK: No jugular vein distension. [] HEENT: No cyanosis. No icterus. No pallor. [] HEART: Regular S1 and S2. No murmur, rub or gallop. [] LUNGS: Clear to auscultate bilaterally. [] ABDOMEN: Soft, nontender and nondistended. Positive bowel sounds. No guarding, rebound or tenderness. [] CENTRAL NERVOUS SYSTEM: Grossly nonfocal. [] EXTREMITIES: Lower extremities with 2+ edema bilaterally. Pulses palpable in the lower extremities, both dorsalis pedis and posterior tibial. [] Urinary Catheter Management^: Acevedo: Cath Placed During This Visit: yes Reason for Continuing Indwelling Catheter: Accurate Measurement of Urinary Output in Critically Ill Patients Urinary Catheter Date of Insertion: 06/15/21 Urinary Catheter Time of Insertion: 18:22 Data : 07/03/21 05:45 07/03/21 05:45 Micro: Microbiology 06/13/21 14:55 Blood Culture - Final Blood NO GROWTH AFTER 5 DAYS 06/13/21 14:55 Blood Culture - Final Blood NO GROWTH AFTER 5 DAYS A&P Assessment and plan (1) Acute on chronic congestive heart failure: Status: Acute Qualifiers: Heart failure type: systolic Qualified Code(s): I50.23 - Acute on chronic systolic (congestive) heart failure (2) CKD (chronic kidney disease): Status: Acute (3) Diabetes: Status: Acute Qualifiers: Chronic kidney disease stage: stage 3 (moderate) Chronic kidney disease stage 3 subtype: stage 3b (GFR 30-44) Diabetes mellitus complication detail: with chronic kidney disease Diabetes mellitus complication status: with kidney complications Diabetes mellitus halfway insulin use: with bed bug exterminator use Diabetes mellitus type: type 2 Qualified Code(s): E11.22 - Type 2 diabetes mellitus with diabetic chronic kidney disease; N18.32 - Chronic kidney disease, stage 3b; Z79.4 - manager long term care (current) use of insulin (4) Atrial fibrillation with RVR: Status: Acute (5) Dyslipidemia: Status: Chronic Patient is coming with acute on chronic congestive heart failure. Volume status is improved. Continue diuresis. Monitor creatinine as has chronic kidney disease. Patient underwent Lexiscan that showed prior infarct with [place]-infarct ischemia in LCx and RCA territory. As she is chest pain-free, no large territory of ischemia, angiogram or PCI of small territory will not cause symptom improvement or improvement in LV systolic function. At this time given her risk of contrast-induced nephropathy and lack of benefit from invasive procedure, we will treat her medically. Likely cause of ejection fraction reduction is atrial fibrillation as she came in with rapid ventricular rate. Heart rate control with rate controlling agents. Continue current medications Low-sodium diet and fluid restriction. Strict I&O's. Thank you for involving us with care of this patient. We will sign off. Please call with questions. Attestations Medical Necessity Statement*: Care expected to cross 2 midnights. 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
[2021-06-19 12:02] LABS: Glucose Point of Care 112 mg/dL (70-110)
--- NOTE | 2021-06-19 12:25 | P.PN_ITS ---
Subjective Subjective: Interval history: Patient was seen and examined this morning, continue to complain of significant shortness of breath with minimal exertion. Medications: Reviewed: Yes Vitals/I&O/Wt Last Vital Signs Temp 97.4 F L 06/19/21 12:00 Pulse 69 06/19/21 12:00 Resp 18 06/19/21 12:00 BP 116/64 06/19/21 12:00 Pulse Ox 93 06/19/21 12:00 06/18/21 06/19/21 06/19/21 22:59 06:59 14:59 Intake Total 290 / 340 50 / 390 Output Total 500 / 500 Balance -210 / -160 50 / -110 Physical Exam Const: COMMON NORMALS: patient oriented x3 HENMT: COMMON NORMALS: normocephalic and atraumatic HEAD & SCALP: no rmocephalic and atraumatic Resp: OTHER: B/L Fine Crackles present in both lungs griffiths Cardio: COMMON NORMALS: regular rate, regular rhythm, S1 normal heart sound present, S2 normal heart sound present, No gallops present (Cardio), No murmurs present (Cardio), No rub (Cardio) and Peripheral pulses 2+ throughout RATE: regular rate RHYTHM: regular rhythm HEART SOUNDS: S1 normal heart sound present and S2 normal heart sound present PERIPHERAL PULSES: Peripheral pulses 2+ throughout GI: COMMON NORMALS: Normal to inspection, nondistended, normoactive bowel sounds present, Soft to palpation, non-tender, No hepatosplenomegaly present and no masses AUSCULTATION: Yes normoactive bowel sounds PALPATION: Yes Soft to palpation and Yes No hepatosplenomegaly present RECTAL EXAM: deferred Extremity: COMMON NORMALS: no clubbing, cyanosis or edema and no pedal edema Neuro: COMMON NORMALS: patient oriented x3 Urinary Catheter Management^: Acevedo: Cath Placed During This Visit: yes Reason for Continuing Indwelling Catheter: Accurate Measurement of Urinary Output in Critically Ill Patients Urinary Catheter Date of Insertion: 06/15/21 Urinary Catheter Time of Insertion: 18:22 Data : 06/19/21 06:02 06/19/21 06:02 Micro: Microbiology 06/13/21 14:55 Blood Culture - Final Blood NO GROWTH AFTER 5 DAYS 06/13/21 14:55 Blood Culture - Final Blood NO GROWTH AFTER 5 DAYS A&P Assessment and plan (1) Acute on chronic congestive heart failure: Acute on chronic systolic CHF exacerbation plan: - S/P stress test: Abnormal myocardial perfusion imaging with large sized infarct with significant shaina-infarct ischemia noted in left circumflex artery and RCA territory. LV systolic function is severely reduced. -Cardiac 2D echo LV systolic function is severely reduced with EF of 20 to 25%. Right ventricle is hypokinetic. Left atrium is enlarged. Mitral and aortic valves are thickened. Mild mitral regurgitation. Mild pulmonic regurgitation. Trace tricuspid regurgitation. Compared to prior echocardiogram from 01/21/2021, LV systolic function has decreased further. -lasix 40mg IV q12H -Lisinopril 5 mg p.o. daily -continue aspirin, Plavix, Coumadin, beta-efe -fluid restriction <1200cc -Oxygen therapy -Appreciate Cardiology input: Current plan is medical management -Currently on Zosyn for concern for pneumonia Insulin-dependent type 2 days mellitus, moderate dose sliding scale CAD, continue statin, Plavix Atrial fibrillation: continue metoprolol 50 mg twice a day, pharmacy dose Coumadin, INR 1.68 CKD, creatinine 2.4 continue to monitor Hypomagnesemia, monitor NSTEMI, likely supply demand ischemia from CHF as above, but cannot rule out underlying CAD given history of CAD and cardiac echocardiogram findings as above -Continue Plavix, continue beta-efe, continue Coumadin, continue statin -Telemetry monitoring -Serial EKGs, serial troponins -Cardiology consulted Full code Coumadin for DVT prophylaxis Status: Acute (2) Atrial fibrillation with RVR: Status: Acute (3) Atherosclerotic heart disease of [place] coronary artery with unstable angina pectoris: Status: Chronic Qualifiers: [place] vs. transplanted heart: [place] heart Qualified Code(s): I25.110 - Atherosclerotic heart disease of [place] coronary artery with unstable angina pectoris (4) Dyslipidemia: Status: Chronic (5) CKD (chronic kidney disease): Status: Acute (6) Diabetes: Status: Acute Qualifiers: Chronic kidney disease stage: stage 3 (moderate) Chronic kidney disease stage 3 subtype: stage 3b (GFR 30-44) Diabetes mellitus complication detail: with chronic kidney disease Diabetes mellitus complication status: with kidney complications Diabetes mellitus exterminator helper termite insulin use: with exterminator helper termite use Diabetes mellitus type: type 2 Qualified Code(s): E11.22 - Type 2 diabetes mellitus with diabetic chronic kidney disease; N18.32 - Chronic kidney disease, stage 3b; Z79.4 - termination clerk (current) use of insulin Attestations Medical Necessity Statement*: Patient is to be in hospital for management of decompensated heart failure, continued need for IV diuresis. Coding Level of Care Code Acute Cafeteria Worker for g Fwd Exam Detailed Diagnoses Acute on chronic congestive heart failure I50.9 Atrial fibrillation with RVR I48.91 Atherosclerotic heart disease of [place] coronary artery with unstable angina pectoris I25.110 [place] vs. transplanted heart: [place] heart Dyslipidemia E78.5 CKD (chronic kidney disease) N18.9 Diabetes E11.22; N18.32; Z79.4 Chronic kidney disease stage: stage 3 (moderate) Chronic kidney disease stage 3 subtype: stage 3b (GFR 30-44) Diabetes mellitus complication detail: with chronic kidney disease Diabetes mellitus complication status: with kidney complications Diabetes mellitus exterminator helper termite insulin use: with senior living use Diabetes mellitus type: type 2
[2021-06-19] MEDS: lisinopril 5 mg Tablet PO (13:20)
[2021-06-19] MEDS: warfarin 3 mg Tablet 1.5 MG PO (13:21)
[2021-06-19] MEDS: FUROsemide 10 mg/mL SDV 4mL 40 MG IVP (15:04)
--- NOTE | 2021-06-19 15:57 | PC.NURSE ---
END OF SHIFT SUMMARY PT WAS ASSISTED TO CHAIR EARLIER IN SHIFT - REMAINS THERE - DENIES NEEDS - IV RESTART TO RIGHT THUMB AFTER MULTIPLE ATTEMPTS - ZOSYN INFUSING AT PRESENT TIME - V[place]LA REMAINS IN PLACE WITH YELLOW URINE - HAS REMAINED ALERT, ORIENTATED AND COOPERATIVE THROUGHOUT SHIFT
[2021-06-19 17:11] LABS: Glucose Point of Care 126 mg/dL (70-110)
[2021-06-19 21:23] LABS: Glucose Point of Care 147 mg/dL (70-110)
[2021-06-19] MEDS: atorvastatin 40 mg Tablet 80 MG PO (22:17)
[2021-06-19] MEDS: docusate sodium 100 mg Capsule PO (22:17)
[2021-06-19] MEDS: folic acid 1 mg Tablet 2 MG PO (22:17)
[2021-06-20] VITALS (7 sets, daily range): BP systolic 102–143; BP diastolic 55–82; PULSE 66–82; RESP 17–20; TEMP 36.3–37.1; O2SAT 91–99
[2021-06-20] MEDS: piperacillin-tazobactam 3.375 GM in sodium chloride 0.9% (plus) 50 ML IV ×4 (00:01→22:35)
[2021-06-20] MEDS: FUROsemide 10 mg/mL SDV 4mL 40 MG IVP ×2 (02:22→14:58)
[2021-06-20] MEDS: levothyroxine 25 mcg Tablet PO (05:32)
[2021-06-20] MEDS: potassium chloride ER 10 mEq Tablet PO (05:32)
[2021-06-20] MEDS: pantoprazole DR 40 mg Tablet PO (05:32)
[2021-06-20] MEDS: sennosides-docusate Tablet 1 TAB PO (05:32)
[2021-06-20] MEDS: levothyroxine 200 mcg Tablet PO (05:32)
[2021-06-20 06:25] LABS: Basophils # 0.1 10^3/uL (0.0-0.1); Basophils % 0.8 %; Eosinophils # 0.4 10^3/uL (0.0-0.8); Eosinophils % 5.8 %; Hematocrit 38.2 % (37.0-47.0); Hemoglobin 11.3 g/dL (11.5-15.3); Lymphocytes # 1.8 10^3/uL (0.8-4.8); Mean Corpuscular HGB Conc 29.6 g/dL (30.0-36.0); Mean Corpuscular Hemoglobin 29.4 pg (28.0-34.0); Mean Corpuscular Volume 99.5 fl (81-99); Mean Platelet Volume 11.2 fL (7.4-10.4); Monocytes # 0.5 10^3/uL (0.2-0.9); Monocytes % 8.8 %; Neutrophils # 3.41 10^3/uL (1.8-7.7); Neutrophils % 55.3 %; Nucleated Red Blood Cells % 0 %; Platelet Count 152 10^3/cmm (130-400); Red Blood Count 3.84 10^6/uL (4.1-5.3); Red Cell Distribution Width 16.1 % (12.1-15.1); White Blood Count 6.2 10^3/uL (4.0-10.0)
[2021-06-20 06:30] LABS: INR 2.89 (0.8-1.2)
[2021-06-20 06:36] LABS: Anion Gap 17.8 (5-19); Blood Urea Nitrogen 25 mg/dL (8-23); Calcium 7.6 mg/dL (8.5-10.5); Carbon Dioxide 27 mmol/L (22-29); Chloride 101 mmol/L (98-107); Glucose 106 mg/dL (65-115); Osmolality Calculated 299 mOsm/kg (285-295); Potassium 3.8 mmol/L (3.5-5.1); Sodium 142 mmol/L (136-145)
[2021-06-20 06:47] LABS: Glucose Point of Care 116 mg/dL (70-110)
[2021-06-20] MEDS: aspirin 81 mg EC Tablet PO (09:59)
[2021-06-20] MEDS: calcitriol 0.25 mcg Capsule PO (09:59)
[2021-06-20] MEDS: phenytoin ER 100 mg Capsule 200 MG PO ×2 (09:59→18:23)
[2021-06-20] MEDS: metoprolol tartrate 50 mg Tablet PO ×2 (09:59→18:23)
[2021-06-20] MEDS: citalopram 20 mg Tablet 10 MG PO (10:00)
[2021-06-20] MEDS: lisinopril 5 mg Tablet PO (10:01)
[2021-06-20] MEDS: gabapentin 100 mg Capsule PO ×2 (10:01→20:59)
[2021-06-20] MEDS: clopidogrel 75 mg Tablet PO (10:01)
--- NOTE | 2021-06-20 10:26 | PM.PN ---
Subjective Subjective: Interval history: Patient was seen and examined this morning, continue to complain of significant shortness of breath with minimal exertion. Continues to be extremely weak. She is also complaining of significant coughing spells. Medications: Reviewed: Yes Vitals/I&O/Wt Last Vital Signs Temp 98.7 F 06/20/21 07:32 Pulse 77 06/20/21 07:32 Resp 17 06/20/21 07:32 BP 118/67 06/20/21 07:32 Pulse Ox 93 06/20/21 07:32 06/19/21 06/20/21 06/20/21 22:59 06:59 14:59 Intake Total 530 / 700 50 / 750 240 / 240 Output Total 800 / 800 800 / 1600 Balance -270 / -100 -750 / -850 240 / 240 Physical Exam Const: COMMON NORMALS: patient oriented x3 HENMT: COMMON NORMALS: normocephalic and atraumatic HEAD & SCALP: normocephalic and atraumatic Resp: COMMON NORMALS: clear to auscultation bilaterally EFFORT & INSPECTION: Yes symmetric chest movement AUSCULTATION: clear to auscultation bilaterally OTHER: B/L Fine Crackles present in both lungs griffiths Cardio: COMMON NORMALS: regular rate, regular rhythm, S1 normal heart sound present, S2 normal heart sound present, No gallops present (Cardio), No murmurs present (Cardio), No rub (Cardio) and Peripheral pulses 2+ throughout RATE: regular rate RHYTHM: regular rhythm HEART SOUNDS: S1 normal heart sound present and S2 normal heart sound present PERIPHERAL PULSES: Peripheral pulses 2+ throughout GI: COMMON NORMALS: Normal to inspection, nondistended, normoactive bowel sounds present, Soft to palpation, non-tender, No hepatosplenomegaly present and no masses AUSCULTATION: Yes normoactive bowel sounds PALPATION: Yes Soft to palpation and Yes No hepatosplenomegaly present RECTAL EXAM: deferred Extremity: NARRATIVE EXTREMITY EXAM: 2+ B/L PITTING EDEMA IN BOTH LOWER EXTREMITY Neuro: COMMON NORMALS: patient oriented x3 Urinary Catheter Management^: Acevedo: Cath Placed During This Visit: yes Reason for Continuing Indwelling Catheter: Other Urinary Catheter Date of Insertion: 06/15/21 Urinary Catheter Time of Insertion: 18:22 Data : 06/20/21 05:56 06/20/21 05:56 A&P Assessment and plan (1) Acute on chronic congestive heart failure: Acute on chronic systolic CHF exacerbation plan: - S/P stress test: Abnormal myocardial perfusion imaging with large sized infarct with significant shain[place]-infarct ischemia noted in left circumflex artery and RCA territory. LV systolic function is severely reduced. -Cardiac 2D echo LV systolic function is severely reduced with EF of 20 to 25%. Right ventricle is hypokinetic. Left atrium is enlarged. Mitral and aortic valves are thickened. Mild mitral regurgitation. Mild pulmonic regurgitation. Trace tricuspid regurgitation. Compared to prior echocardiogram from 01/21/2021, LV systolic function has decreased further. -lasix 40mg IV q12H -Lisinopril 5 mg p.o. daily -continue aspirin, Plavix, Coumadin, beta-efe -fluid restriction <1200cc -Oxygen therapy -Appreciate Cardiology input: Current plan is medical management -Currently on Zosyn for concern for pneumonia NSTEMI, likely supply demand ischemia from CHF as above, but cannot rule out underlying CAD given history of CAD and cardiac echocardiogram findings as above -Continue Plavix, continue beta-efe, continue Coumadin, continue statin -Telemetry monitoring -Serial EKGs, serial troponins Status: Acute (2) Atrial fibrillation with RVR: Atrial fibrillation: Currently rate is well controlled continue metoprolol 50 mg twice a day, pharmacy dose Coumadin, INR 1.68 Status: Acute (3) Atherosclerotic heart disease of [place] coronary artery with unstable angina pectoris: CAD, continue statin, Plavix Status: Chronic Qualifiers: [place] vs. transplanted heart: [place] heart Qualified Code(s): I25.110 - Atherosclerotic heart disease of [place] coronary artery with unstable angina pectoris (4) Dyslipidemia: Status: Chronic (5) CKD (chronic kidney disease): CKD, creatinine 2.4 continue to monitor Status: Acute (6) Diabetes: Insulin-dependent type 2 days mellitus, moderate dose sliding scale Status: Acute Qualifiers: Chronic kidney disease stage: stage 3 (moderate) Chronic kidney disease stage 3 subtype: stage 3b (GFR 30-44) Diabetes mellitus complication detail: with chronic kidney disease Diabetes mellitus complication status: with kidney complications Diabetes mellitus long-term insulin use: with long-term use Diabetes mellitus type: type 2 Qualified Code(s): E11.22 - Type 2 diabetes mellitus with diabetic chronic kidney disease; N18.32 - Chronic kidney disease, stage 3b; 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 Attestations Medical Necessity Statement*: Patient is to be in hospital for management heart failure. Continued need for IV diuresis. Coding Level of Care Code Acute Plate Glass Polisher for Katerineg Fwd Diagnoses Acute on chronic congestive heart failure I50.9 Atrial fibrillation with RVR I48.91 Atherosclerotic heart disease of [place] coronary artery with unstable angina pectoris I25.110 [place] vs. 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
--- NOTE | 2021-06-20 11:11 | PC.SOCIAL ---
IMM UPDATED IMM dated and initialed and copy given to patient
[2021-06-20 11:44] LABS: Glucose Point of Care 177 mg/dL (70-110)
[2021-06-20] MEDS: warfarin 1 mg Tablet 0.5 MG PO (14:51)
--- NOTE | 2021-06-20 15:16 | PC.OT ---
OT TREATMENT ATTEMPTED. PATIENT DECLINES TREATMENT AT THIS TIME STATING THAT SHE IS TOO TIRED. AGREEABLE TO A.M. TREATMENT
[2021-06-20 16:38] LABS: Glucose Point of Care 150 mg/dL (70-110)
[2021-06-20] MEDS: atorvastatin 40 mg Tablet 80 MG PO (20:59)
[2021-06-20] MEDS: docusate sodium 100 mg Capsule PO (20:59)
[2021-06-20] MEDS: folic acid 1 mg Tablet 2 MG PO (20:59)
[2021-06-20 22:00] LABS: Glucose Point of Care 189 mg/dL (70-110)
[2021-06-21] VITALS (7 sets, daily range): BP systolic 106–139; BP diastolic 63–80; PULSE 63–83; RESP 17–18; TEMP 36.3–36.4; O2SAT 94–97
[2021-06-21] MEDS: FUROsemide 10 mg/mL SDV 4mL 40 MG IVP ×2 (02:39→15:55)
[2021-06-21 05:24] LABS: Basophils # 0.1 10^3/uL (0.0-0.1); Basophils % 0.9 %; Eosinophils # 0.3 10^3/uL (0.0-0.8); Eosinophils % 5.3 %; Hematocrit 33.2 % (37.0-47.0); Hemoglobin 10.1 g/dL (11.5-15.3); Lymphocytes # 1.7 10^3/uL (0.8-4.8); Lymphocytes % 29.3 %; Mean Corpuscular HGB Conc 30.4 g/dL (30.0-36.0); Mean Corpuscular Hemoglobin 29.8 pg (28.0-34.0); Mean Corpuscular Volume 97.9 fl (81-99); Mean Platelet Volume 11.4 fL (7.4-10.4); Monocytes # 0.5 10^3/uL (0.2-0.9); Monocytes % 9.3 %; Neutrophils # 3.13 10^3/uL (1.8-7.7); Nucleated Red Blood Cells % 0 %; Platelet Count 147 10^3/cmm (130-400); Red Blood Count 3.39 10^6/uL (4.1-5.3); Red Cell Distribution Width 16.3 % (12.1-15.1); White Blood Count 5.7 10^3/uL (4.0-10.0)
[2021-06-21] MEDS: levothyroxine 25 mcg Tablet PO (05:53)
[2021-06-21] MEDS: sennosides-docusate Tablet 1 TAB PO (05:53)
[2021-06-21] MEDS: potassium chloride ER 10 mEq Tablet PO (05:53)
[2021-06-21] MEDS: pantoprazole DR 40 mg Tablet PO (05:53)
[2021-06-21] MEDS: levothyroxine 200 mcg Tablet PO (05:53)
[2021-06-21 05:55] LABS: Anion Gap 16.4 (5-19); Blood Urea Nitrogen 24 mg/dL (8-23); Calcium 7.4 mg/dL (8.5-10.5); Carbon Dioxide 25 mmol/L (22-29); Chloride 103 mmol/L (98-107); Glucose 130 mg/dL (65-115); Osmolality Calculated 298 mOsm/kg (285-295); Potassium 3.4 mmol/L (3.5-5.1); Sodium 141 mmol/L (136-145)
[2021-06-21] MEDS: piperacillin-tazobactam 3.375 GM in sodium chloride 0.9% (plus) 50 ML IV (06:00)
[2021-06-21 07:39] LABS: Glucose Point of Care 121 mg/dL (70-110)
[2021-06-21] MEDS: clopidogrel 75 mg Tablet PO (08:47)
[2021-06-21] MEDS: gabapentin 100 mg Capsule PO ×2 (08:47→20:03)
[2021-06-21] MEDS: metoprolol tartrate 50 mg Tablet PO ×2 (08:47→17:51)
[2021-06-21] MEDS: calcitriol 0.25 mcg Capsule PO (08:47)
[2021-06-21] MEDS: lisinopril 5 mg Tablet PO (08:47)
[2021-06-21] MEDS: phenytoin ER 100 mg Capsule 200 MG PO ×2 (08:47→17:52)
[2021-06-21] MEDS: aspirin 81 mg EC Tablet PO (08:47)
[2021-06-21] MEDS: citalopram 20 mg Tablet 10 MG PO (08:47)
[2021-06-21] MEDS: potassium chloride ER 20 mEq Tablet 40 MEQ PO (10:11)
[2021-06-21] MEDS: spironolactone 25 mg Tablet 12.5 MG PO (10:11)
[2021-06-21 12:17] LABS: Glucose Point of Care 128 mg/dL (70-110)
[2021-06-21 13:33] LABS: INR 3.22 (0.8-1.2)
--- NOTE | 2021-06-21 15:40 | PM.PN ---
Subjective Subjective: Interval history: Patient was seen and examined this morning, states she feels better than yesterday, Shortness of breath is slowly improving ,continue to have good urine output with Lasix, working with physical therapy. Medications: Reviewed: Yes Vitals/I&O/Wt Last Vital Signs Temp 97.5 F L 06/21/21 08:00 Pulse 75 06/21/21 14:01 Resp 18 06/21/21 11:59 BP 115/67 06/21/21 11:59 Pulse Ox 97 06/21/21 11:59 06/21/21 06/21/21 06/21/21 06:59 14:59 22:59 Intake Total 50 / 920 290 / 290 Output Total 400 / 1300 Balance -350 / -380 290 / 290 Physical Exam Const: COMMON NORMALS: patient oriented x3 HENMT: COMMON NORMALS: normocephalic and atraumatic HEAD & SCALP: normocephalic and atraumatic Resp: EFFORT & INSPECTION: Yes symmetric chest movement OTHER: B/L Fine Crackles present in both lungs griffiths Cardio: COMMON NORMALS: regular rate, regular rhythm, S1 normal heart sound present, S2 normal heart sound present, No gallops present (Cardio), No murmurs present (Cardio), No rub (Cardio) and Peripheral pulses 2+ throughout RATE: regular rate RHYTHM: regular rhythm HEART SOUNDS: S1 normal heart sound present and S2 normal heart sound present PERIPHERAL PULSES: Peripheral pulses 2+ throughout GI: COMMON NORMALS: Normal to inspection, nondistended, normoactive bowel sounds present, Soft to palpation, non-tender, No hepatosplenomegaly present and no masses AUSCULTATION: Yes normoactive bowel sounds PALPATION: Yes Soft to palpation and Yes No hepatosplenomegaly present RECTAL EXAM: deferred Extremity: COMMON NORMALS: no clubbing, cyanosis or edema and no pedal edema NARRATIVE EXTREMITY EXAM: 2+ B/L PITTING EDEMA IN BOTH LOWER EXTREMITY Neuro: COMMON NORMALS: patient oriented x3 Urinary Catheter Management^: Acevedo: Cath Placed During This Visit: yes Reason for Continuing Indwelling Catheter: Other Urinary Catheter Date of Insertion: 06/15/21 Urinary Catheter Time of Insertion: 18:22 Data : 06/21/21 05:06 06/21/21 05:06 A&P Assessment and plan (1) Acute on chronic congestive heart failure: Acute on chronic systolic CHF exacerbation plan: - S/P stress test: Abnormal myocardial perfusion imaging with large sized infarct with significant [place]-infarct ischemia noted in left circumflex artery and RCA territory. LV systolic function is severely reduced. -Cardiac 2D echo LV systolic function is severely reduced with EF of 20 to 25%. Right ventricle is hypokinetic. Left atrium is enlarged. Mitral and aortic valves are thickened. Mild mitral regurgitation. Mild pulmonic regurgitation. Trace tricuspid regurgitation. Compared to prior echocardiogram from 01/21/2021, LV systolic function has decreased further. -lasix 40mg IV q12H -Lisinopril 5 mg p.o. daily -Spironolactone 12.5 mg p.o. daily -continue aspirin, Plavix, Coumadin, beta-efe -fluid restriction <1200cc -Oxygen therapy -Appreciate Cardiology input: Current plan is medical management -Initially she was on Zosyn for concern for pneumonia NSTEMI, likely supply demand ischemia from CHF as above, but cannot rule out underlying CAD given history of CAD and cardiac echocardiogram findings as above -Continue Plavix, continue beta-efe, continue Coumadin, continue statin -Telemetry monitoring -Serial EKGs, serial troponins Status: Acute (2) Atrial fibrillation with RVR: Atrial fibrillation: Currently rate is well controlled continue metoprolol 50 mg twice a day, pharmacy dose Coumadin, INR 1.68 Status: Acute (3) Atherosclerotic heart disease of [place] coronary artery with unstable angina pectoris: CAD, continue statin, Plavix Status: Chronic Qualifiers: [place] vs. transplanted heart: [place] heart Qualified Code(s): I25.110 - Atherosclerotic heart disease of [place] coronary artery with unstable angina pectoris (4) Dyslipidemia: Status: Chronic (5) CKD (chronic kidney disease): CKD, creatinine 2.4 continue to monitor Status: Acute (6) Diabetes: Insulin-dependent type 2 days mellitus, moderate dose sliding scale Status: Acute Qualifiers: Chronic kidney disease stage: stage 3 (moderate) Chronic kidney disease stage 3 subtype: stage 3b (GFR 30-44) Diabetes mellitus complication detail: with chronic kidney disease Diabetes mellitus complication status: with kidney complications Diabetes mellitus alf insulin use: with long term care pharmacist use Diabetes mellitus type: type 2 Qualified Code(s): E11.22 - Type 2 diabetes mellitus with diabetic chronic kidney disease; N18.32 - Chronic kidney disease, stage 3b; Z79.4 - extermination inspector (current) use of insulin Additional A&P Information DVT prophylaxis: On warfarin CODE STATUS: Full code Disposition: Patient will need intermediate placement, given significant weakness, and physical deconditioning and her current inability to take care of herself, as she is currently alone at home. Attestations Medical Necessity Statement*: Patient needs to be in hospital for management of decompensated heart failure, need for IV diuresis, need for safe placement. Coding Level of Care Code Acute Real Estate Internship for Sosa Bates Diagnoses Acute on chronic congestive heart failure I50.9 Atrial fibrillation with RVR I48.91 Atherosclerotic heart disease of [place] coronary artery with unstable angina pectoris I25.110 [place] vs. transplanted heart: [place] heart Dyslipidemia E78.5 CKD (chronic kidney disease) N18.9 Diabetes E11.22; N18.32; Z79.4 Chronic kidney disease stage: stage 3 (moderate) Chronic kidney disease stage 3 subtype: stage 3b (GFR 30-44) Diabetes mellitus complication detail: with chronic kidney disease Diabetes mellitus complication status: with kidney complications Diabetes mellitus alf insulin use: with long term care pharmacist use Diabetes mellitus type: type 2
[2021-06-21 18:04] LABS: Glucose Point of Care 157 mg/dL (70-110)
[2021-06-21] MEDS: folic acid 1 mg Tablet 2 MG PO (20:03)
[2021-06-21] MEDS: atorvastatin 40 mg Tablet 80 MG PO (20:03)
[2021-06-21] MEDS: docusate sodium 100 mg Capsule PO (20:03)
[2021-06-21 21:46] LABS: Glucose Point of Care 190 mg/dL (70-110)
[2021-06-22] VITALS (7 sets, daily range): BP systolic 106–136; BP diastolic 60–82; PULSE 65–81; RESP 16–20; TEMP 36.4–37; O2SAT 92–99
[2021-06-22] MEDS: FUROsemide 10 mg/mL SDV 4mL 40 MG IVP (03:06)
[2021-06-22 03:48] LABS: Basophils # 0.1 10^3/uL (0.0-0.1); Basophils % 0.8 %; Eosinophils # 0.4 10^3/uL (0.0-0.8); Eosinophils % 5.4 %; Hematocrit 33.3 % (37.0-47.0); Hemoglobin 9.9 g/dL (11.5-15.3); Lymphocytes % 30.6 %; Mean Corpuscular HGB Conc 29.7 g/dL (30.0-36.0); Mean Corpuscular Hemoglobin 29.6 pg (28.0-34.0); Mean Corpuscular Volume 99.7 fl (81-99); Mean Platelet Volume 11.1 fL (7.4-10.4); Monocytes # 0.6 10^3/uL (0.2-0.9); Monocytes % 8.9 %; Neutrophils # 3.59 10^3/uL (1.8-7.7); Neutrophils % 53.8 %; Nucleated Red Blood Cells % 0 %; Platelet Count 147 10^3/cmm (130-400); Red Blood Count 3.34 10^6/uL (4.1-5.3); Red Cell Distribution Width 16.5 % (12.1-15.1); White Blood Count 6.7 10^3/uL (4.0-10.0)
[2021-06-22 04:04] LABS: INR 3.37 (0.8-1.2)
[2021-06-22 04:16] LABS: Anion Gap 10.8 (5-19); Blood Urea Nitrogen 26 mg/dL (8-23); Calcium 7.2 mg/dL (8.5-10.5); Carbon Dioxide 30 mmol/L (22-29); Chloride 104 mmol/L (98-107); Glucose 146 mg/dL (65-115); Osmolality Calculated 299 mOsm/kg (285-295); Potassium 3.8 mmol/L (3.5-5.1); Sodium 141 mmol/L (136-145)
[2021-06-22] MEDS: potassium chloride ER 10 mEq Tablet PO (06:00)
[2021-06-22] MEDS: sennosides-docusate Tablet 1 TAB PO (06:00)
[2021-06-22] MEDS: pantoprazole DR 40 mg Tablet PO (06:00)
[2021-06-22] MEDS: levothyroxine 200 mcg Tablet PO (06:00)
[2021-06-22] MEDS: levothyroxine 25 mcg Tablet PO (06:00)
[2021-06-22 07:08] LABS: Glucose Point of Care 167 mg/dL (70-110)
[2021-06-22] MEDS: citalopram 20 mg Tablet 10 MG PO (08:30)
[2021-06-22] MEDS: calcitriol 0.25 mcg Capsule PO (08:30)
[2021-06-22] MEDS: spironolactone 25 mg Tablet 12.5 MG PO (08:30)
[2021-06-22] MEDS: clopidogrel 75 mg Tablet PO (08:30)
[2021-06-22] MEDS: gabapentin 100 mg Capsule PO ×2 (08:30→20:06)
[2021-06-22] MEDS: aspirin 81 mg EC Tablet PO (08:30)
[2021-06-22] MEDS: lisinopril 5 mg Tablet PO (08:31)
[2021-06-22] MEDS: metoprolol tartrate 50 mg Tablet PO ×2 (08:31→17:08)
[2021-06-22] MEDS: phenytoin ER 100 mg Capsule 200 MG PO ×2 (08:31→17:08)
--- NOTE | 2021-06-22 11:20 | P.PN_ITS ---
Subjective Subjective: Interval history: Patient was seen and examined this morning, Shortness of breath is improving, but still get winded with exertion Medications: Reviewed: Yes Vitals/I&O/Wt Last Vital Signs Temp 98 F 06/22/21 08:18 Pulse 80 06/22/21 08:18 Resp 16 06/22/21 08:18 BP 109/62 06/22/21 08:18 Pulse Ox 92 06/22/21 08:18 06/21/21 06/22/21 06/22/21 22:59 06:59 14:59 Intake Total 100 / 390 240 / 630 240 / 240 Output Total 400 / 400 250 / 650 Balance -300 / -10 -10 / -20 240 / 240 Physical Exam Const: COMMON NORMALS: patient oriented x3 HENMT: COMMON NORMALS: normocephalic and atraumatic HEAD & SCALP: normocephalic and atraumatic Resp: COMMON NORMALS: clear to auscultation bilaterally EFFORT & INSPECTION: Yes symmetric chest movement AUSCULTATION: clear to auscultation bilaterally Cardio: COMMON NORMALS: regular rate, regular rhythm, S1 normal heart sound present, S2 normal heart sound present, No gallops present (Cardio), No murmurs present (Cardio), No rub (Cardio) and Peripheral pulses 2+ throughout RATE: regular rate RHYTHM: regular rhythm HEART SOUNDS: S1 normal heart sound present and S2 normal heart sound present PERIPHERAL PULSES: Peripheral pulses 2+ throughout GI: COMMON NORMALS: Normal to inspection, nondistended, normoactive bowel sounds present, Soft to palpation, non-tender, No hepatosplenomegaly present and no masses AUSCULTATION: Yes normoactive bowel sounds PALPATION: Yes Soft to palpation and Yes No hepatosplenomegaly present RECTAL EXAM: deferred Extremity: COMMON NORMALS: no clubbing, cyanosis or edema and no pedal edema NARRATIVE EXTREMITY EXAM: 2+ B/L PITTING EDEMA IN BOTH LOWER EXTREMITY Neuro: COMMON NORMALS: patient oriented x3 Urinary Catheter Management^: Acevedo: Cath Placed During This Visit: yes Reason for Continuing Indwelling Catheter: Accurate Measurement of Urinary Output in Critically Ill Patients Urinary Catheter Date of Insertion: 06/15/21 Urinary Catheter Time of Insertion: 18:22 Data : 06/22/21 03:31 06/22/21 03:31 A&P Assessment and plan (1) Acute on chronic congestive heart failure: Acute on chronic systolic CHF exacerbation plan: - S/P stress test: Abnormal myocardial perfusion imaging with large sized infarct with significant sh[place]-infarct ischemia noted in left circumflex artery and RCA territory. LV systolic function is severely reduced. -Cardiac 2D echo LV systolic function is severely reduced with EF of 20 to 25%. Right ventricle is hypokinetic. Left atrium is enlarged. Mitral and aortic valves are thickened. Mild mitral regurgitation. Mild pulmonic regurgitation. Trace tricuspid regurgitation. Compared to prior echocardiogram from 01/21/2021, LV systolic function has decreased further. -lasix 40mg IV q24H -Lisinopril 5 mg p.o. daily -Spironolactone 12.5 mg p.o. daily -continue aspirin, Plavix, Coumadin, beta-efe -fluid restriction <1200cc -Oxygen therapy -Appreciate Cardiology input: Current plan is medical management -Initially she was on Zosyn for concern for pneumonia NSTEMI, likely supply demand ischemia from CHF as above, but cannot rule out underlying CAD given history of CAD and cardiac echocardiogram findings as above -Continue Plavix, continue beta-efe, continue Coumadin, continue statin -Telemetry monitoring -Serial EKGs, serial troponins Status: Acute (2) Atrial fibrillation with RVR: Atrial fibrillation: Currently rate is well controlled continue metoprolol 50 mg twice a day, pharmacy dose Coumadin, INR 1.68 Status: Acute (3) Atherosclerotic heart disease of [place] coronary artery with unstable angina pectoris: CAD, continue statin, Plavix Status: Chronic Qualifiers: [place] vs. transplanted heart: [place] heart Qualified Code(s): I25.110 - Atherosclerotic heart disease of [place] coronary artery with unstable angina pectoris (4) Dyslipidemia: Status: Chronic (5) CKD (chronic kidney disease): CKD, creatinine 2.4 continue to monitor Status: Acute (6) Diabetes: Insulin-dependent type 2 days mellitus, moderate dose sliding scale Status: Acute Qualifiers: Chronic kidney disease stage: stage 3 (moderate) Chronic kidney disease stage 3 subtype: stage 3b (GFR 30-44) Diabetes mellitus complication detail: with chronic kidney disease Diabetes mellitus complication status: with kidney complications Diabetes mellitus middle or intermediate school principal insulin use: with correction use Diabetes mellitus type: type 2 Qualified Code(s): E11.22 - Type 2 diabetes mellitus with diabetic chronic kidney disease; N18.32 - Chronic kidney disease, stage 3b; Z79.4 - assisted (current) use of insulin Additional A&P Information #Loose stool : complaining of 2/3 loose stool daily for the last 2 days , She has been on Abxs for some time. Will check C.Diff PCR # Blood in stool: Likely 2/2 to hemorrhoids.H&H Stable.Will continue to monitor. DVT prophylaxis: On warfarin CODE STATUS: Full code Disposition: Patient will need senior living placement, given significant weakness, and physical deconditioning and her current inability to take care of herself, as she is currently alone at home. Attestations Medical Necessity Statement*: Patient needs to be in hospital for the management of Heart failure.Currently awaiting senior living placement. Coding Level of Care Code Acute Forest Technician for Sosa Fwd Exam Detailed Diagnoses Acute on chronic congestive heart failure I50.9 Atrial fibrillation with RVR I48.91 Atherosclerotic heart disease of [place] coronary artery with unstable angina pectoris I25.110 [place] vs. transplanted heart: [place] heart Dyslipidemia E78.5 CKD (chronic kidney disease) N18.9 Diabetes E11.22; N18.32; Z79.4 Chronic kidney disease stage: stage 3 (moderate) Chronic kidney disease stage 3 subtype: stage 3b (GFR 30-44) Diabetes mellitus complication detail: with chronic kidney disease Diabetes mellitus complication status: with kidney complications Diabetes mellitus middle or intermediate school principal insulin use: with correction use Diabetes mellitus type: type 2
[2021-06-22 12:15] LABS: Glucose Point of Care 147 mg/dL (70-110)
--- NOTE | 2021-06-22 13:37 | PC.SOCIAL ---
IMM Update pg 2 of IMM updated and reviewed w/ patient copy provided.
--- NOTE | 2021-06-22 13:52 | PC.CHAP ---
Pastoral Care Encounter/Spiritual Assessment Type of Contact [] Declined floor sweeper visit [] Patient/Family/Request visit [] Outpatient visit [xx] Follow-up visit [] Physician referral [] Code/Alert [xx] Routine visit [] Staff referral [] Actively dying [] Patient sleeping [] Family support [] [] Out of room [] Palliative care [] [] Receiving care in room [] Pre-surgical visit [] Trauma [xx] Long length of stay [] ICU visit [] Other: Relational/Emotional Strength [xx] Patient feels connected with others/family/visitors/staff [] Distress [] Loneliness/isolation [] Abandonment Spirituality of Patient [] Person of Jennifer [] Attends Anabaptist of their Jennifer [xx] Believes in Prayer [] Reads Bible or Taoism materials [] There are Spiritual issues to be addressed Unemployment Insurance Director Interventions [xx] Prayer [xx] Active listening [xx] Non-anxious presence [] Spiritual/emotional support [] Crisis/trauma care [] Spiritual counseling [] Bereavement support [] Provided bereavement packet [] Provided Bible/devotional materials [] Provided toy/stuffed animal, coloring book to patient or family member [] Provided Communion [] Anointing/[place] [] Salvation [xx] Completed spiritual assessment [] Other: Impact on Illness or Injury [] Angry [] Fearful [] Anxious [] Often cries [] Exhaustion [] Unable to work [] Unable to attend gnosticism [] Unable to walk/stand [] Unable to read [] Unable to drive [] Unable to eat/drink [] Unable to sleep [] Unable to be with family [] Patient intubated [] Other: Summary Patient drowsy and not too talkative but pleasant. She stated O is trying to get here into rehab at a longterm for a few weeks to further her recovery. She does not want to reside in a longterm nor stay longer than 4 to 6 weeks as most for rehab. She is worried about this. Time spent with patient 5 minutes
[2021-06-22] MEDS: warfarin 1 mg Tablet PO (16:16)
--- NOTE | 2021-06-22 16:18 | PC.NURSE ---
Contacted about INR of 3.37 and order for coumadin 1 mg. Order received to give coumadin.
[2021-06-22 17:15] LABS: Glucose Point of Care 241 mg/dL (70-110)
[2021-06-22] MEDS: insulin lispro 100 unit/1 mL SUBCUT (17:27)
[2021-06-22] MEDS: docusate sodium 100 mg Capsule PO (20:06)
[2021-06-22] MEDS: folic acid 1 mg Tablet 2 MG PO (20:06)
[2021-06-22] MEDS: atorvastatin 40 mg Tablet 80 MG PO (20:06)
[2021-06-22 20:56] LABS: Glucose Point of Care 144 mg/dL (70-110)
[2021-06-23] VITALS (10 sets, daily range): BP systolic 93–126; BP diastolic 53–71; PULSE 61–106; RESP 16–18; TEMP 36.4–36.8; O2SAT 93–100
[2021-06-23] MEDS: levothyroxine 200 mcg Tablet PO (04:51)
[2021-06-23] MEDS: levothyroxine 25 mcg Tablet PO (04:51)
[2021-06-23] MEDS: potassium chloride ER 10 mEq Tablet PO (05:21)
[2021-06-23] MEDS: sennosides-docusate Tablet 1 TAB PO (05:21)
[2021-06-23] MEDS: pantoprazole DR 40 mg Tablet PO (05:21)
[2021-06-23 06:17] LABS: Basophils # 0.1 10^3/uL (0.0-0.1); Basophils % 0.7 %; Eosinophils # 0.4 10^3/uL (0.0-0.8); Eosinophils % 5.8 %; Hematocrit 34.5 % (37.0-47.0); Hemoglobin 10.2 g/dL (11.5-15.3); Lymphocytes # 2.2 10^3/uL (0.8-4.8); Lymphocytes % 32.4 %; Mean Corpuscular HGB Conc 29.6 g/dL (30.0-36.0); Mean Corpuscular Hemoglobin 29.9 pg (28.0-34.0); Mean Corpuscular Volume 101.2 fl (81-99); Mean Platelet Volume 11.7 fL (7.4-10.4); Monocytes # 0.8 10^3/uL (0.2-0.9); Monocytes % 12.2 %; Neutrophils # 3.27 10^3/uL (1.8-7.7); Neutrophils % 48.6 %; Nucleated Red Blood Cells % 0 %; Platelet Count 162 10^3/cmm (130-400); Red Blood Count 3.41 10^6/uL (4.1-5.3); Red Cell Distribution Width 16.8 % (12.1-15.1); White Blood Count 6.7 10^3/uL (4.0-10.0)
[2021-06-23 06:20] LABS: Glucose Point of Care 182 mg/dL (70-110)
[2021-06-23 06:26] LABS: INR 2.74 (0.8-1.2)
[2021-06-23 06:37] LABS: Anion Gap 12.5 (5-19); Blood Urea Nitrogen 27 mg/dL (8-23); Calcium 7.2 mg/dL (8.5-10.5); Carbon Dioxide 31 mmol/L (22-29); Chloride 100 mmol/L (98-107); Glucose 126 mg/dL (65-115); Osmolality Calculated 295 mOsm/kg (285-295); Potassium 4.5 mmol/L (3.5-5.1); Sodium 139 mmol/L (136-145)
[2021-06-23] MEDS: spironolactone 25 mg Tablet 12.5 MG PO (08:41)
[2021-06-23] MEDS: aspirin 81 mg EC Tablet PO (08:41)
[2021-06-23] MEDS: phenytoin ER 100 mg Capsule 200 MG PO ×2 (08:41→18:23)
[2021-06-23] MEDS: gabapentin 100 mg Capsule PO ×2 (08:41→20:57)
[2021-06-23] MEDS: lisinopril 5 mg Tablet PO (08:41)
[2021-06-23] MEDS: clopidogrel 75 mg Tablet PO (08:41)
[2021-06-23] MEDS: metoprolol tartrate 50 mg Tablet PO ×2 (08:41→18:19)
[2021-06-23] MEDS: citalopram 20 mg Tablet 10 MG PO (08:42)
[2021-06-23] MEDS: calcitriol 0.25 mcg Capsule PO (08:44)
[2021-06-23] MEDS: FUROsemide 10 mg/mL SDV 4mL 40 MG IVP (10:11)
[2021-06-23 12:29] LABS: Glucose Point of Care 184 mg/dL (70-110)
[2021-06-23 17:04] LABS: Glucose Point of Care 244 mg/dL (70-110)
[2021-06-23] MEDS: insulin lispro 100 unit/1 mL SUBCUT (18:19)
--- NOTE | 2021-06-23 18:45 | PM.PN ---
Subjective Subjective: Interval history: Patient was seen and examined this morning, Shortness of breath is improving. Medications: Reviewed: Yes Vitals/I&O/Wt Last Vital Signs Temp 97.9 F 06/23/21 15:32 Pulse 106 H 06/23/21 18:22 Resp 18 06/23/21 15:32 BP 118/64 06/23/21 18:22 Pulse Ox 97 06/23/21 15:32 06/23/21 06/23/21 06/23/21 06:59 14:59 22:59 Intake Total 140 / 1160 Output Total 275 / 275 Balance 140 / 1160 -275 / -275 Physical Exam Const: COMMON NORMALS: patient oriented x3 HENMT: COMMON NORMALS: normocephalic and atraumatic HEAD & SCALP: normocephalic and atraumatic Resp: COMMON NORMALS: clear to auscultation bilaterally EFFORT & INSPECTION: Yes symmetric chest movement AUSCULTATION: clear to auscultation bilaterally OTHER: B/L Fine Crackles present in both lungs griffiths Cardio: COMMON NORMALS: regular rate, regular rhythm, S1 normal heart sound present, S2 normal heart sound present, No gallops present (Cardio), No murmurs present (Cardio), No rub (Cardio) and Peripheral pulses 2+ throughout RATE: regular rate RHYTHM: regular rhythm HEART SOUNDS: S1 normal heart sound present and S2 normal heart sound present PERIPHERAL PULSES: Peripheral pulses 2+ throughout GI: COMMON NORMALS: Normal to inspection, nondistended, normoactive bowel sounds present, Soft to palpation, non-tender, No hepatosplenomegaly present and no masses AUSCULTATION: Yes normoactive bowel sounds PALPATION: Yes Soft to palpation and Yes No hepatosplenomegaly present RECTAL EXAM: deferred Extremity: COMMON NORMALS: no clubbing, cyanosis or edema and no pedal edema NARRATIVE EXTREMITY EXAM: 2+ B/L PITTING EDEMA IN BOTH LOWER EXTREMITY Neuro: COMMON NORMALS: patient oriented x3 Urinary Catheter Management^: Acevedo: Cath Placed During This Visit: yes Reason for Continuing Indwelling Catheter: Accurate Measurement of Urinary Output in Critically Ill Patients Urinary Catheter Date of Insertion: 06/15/21 Urinary Catheter Time of Insertion: 18:22 Data : 06/23/21 05:35 06/23/21 05:35 Micro: Microbiology 06/22/21 16:17 C.difficile Toxin B Gene (PCR) - Final Stool Routine Collection A&P Assessment and plan (1) Acute on chronic congestive heart failure: Acute on chronic systolic CHF exacerbation plan: - S/P stress test: Abnormal myocardial perfusion imaging with large sized infarct with significant shaina-infarct ischemia noted in left circumflex artery and RCA territory. LV systolic function is severely reduced. -Cardiac 2D echo LV systolic function is severely reduced with EF of 20 to 25%. Right ventricle is hypokinetic. Left atrium is enlarged. Mitral and aortic valves are thickened. Mild mitral regurgitation. Mild pulmonic regurgitation. Trace tricuspid regurgitation. Compared to prior echocardiogram from 01/21/2021, LV systolic function has decreased further. -lasix 40mg po q24H. initially as he has been on IV Lasix. 40 twice daily. -Lisinopril 2.5 mg p.o. daily -Spironolactone 12.5 mg p.o. daily -continue aspirin, Plavix, Coumadin, beta-efe -fluid restriction <1200cc -Oxygen therapy -Appreciate Cardiology input: Current plan is medical management -Initially she was on Zosyn for concern for pneumonia NSTEMI, likely supply demand ischemia from CHF as above, but cannot rule out underlying CAD given history of CAD and cardiac echocardiogram findings as above -Continue Plavix, continue beta-efe, continue Coumadin, continue statin -Telemetry monitoring -Serial EKGs, serial troponins Status: Acute (2) Atrial fibrillation with RVR: Atrial fibrillation: Currently rate is well controlled continue metoprolol 50 mg twice a day, pharmacy dose Coumadin, INR 1.68 Status: Acute (3) Atherosclerotic heart disease of [place] coronary artery with unstable angina pectoris: CAD, continue statin, Plavix Status: Chronic Qualifiers: [place] vs. transplanted heart: [place] heart Qualified Code(s): I25.110 - Atherosclerotic heart disease of [place] coronary artery with unstable angina pectoris (4) Dyslipidemia: Status: Chronic (5) CKD (chronic kidney disease): CKD, creatinine 2.4 continue to monitor Status: Acute (6) Diabetes: Insulin-dependent type 2 days mellitus, moderate dose sliding scale Status: Acute Qualifiers: Chronic kidney disease stage: stage 3 (moderate) Chronic kidney disease stage 3 subtype: stage 3b (GFR 30-44) Diabetes mellitus complication detail: with chronic kidney disease Diabetes mellitus complication status: with kidney complications Diabetes mellitus terminal make up operator insulin use: with terminal make up operator use Diabetes mellitus type: type 2 Qualified Code(s): E11.22 - Type 2 diabetes mellitus with diabetic chronic kidney disease; N18.32 - Chronic kidney disease, stage 3b; Z79.4 - terminologist (current) use of insulin Additional A&P Information #Loose stool : complaining of 2/3 loose stool daily for the last 2 days , She has been on Abxs for some time. C.Diff PCR : Negative # Blood in stool: Likely 2/2 to hemorrhoids.H&H Stable.Will continue to monitor. DVT prophylaxis: On warfarin CODE STATUS: Full code Disposition: Patient will need long-term placement, given significant weakness, and physical deconditioning and her current inability to take care of herself, as she is currently alone at home. Attestations Medical Necessity Statement*: Patient needs to be in hospital for management of heart failure. Currently awaiting long-term placement Coding Level of Care Code Acute Chemical Sprayer for Sosa Bates Diagnoses Acute on chronic congestive heart failure I50.9 Atrial fibrillation with RVR I48.91 Atherosclerotic heart disease of [place] coronary artery with unstable angina pectoris I25.110 [place] vs. transplanted heart: [place] heart Dyslipidemia E78.5 CKD (chronic kidney disease) N18.9 Diabetes E11.22; N18.32; Z79.4 Chronic kidney disease stage: stage 3 (moderate) Chronic kidney disease stage 3 subtype: stage 3b (GFR 30-44) Diabetes mellitus complication detail: with chronic kidney disease Diabetes mellitus complication status: with kidney complications Diabetes mellitus terminal make up operator insulin use: with skilled nursing use Diabetes mellitus type: type 2
[2021-06-23 20:45] LABS: Glucose Point of Care 156 mg/dL (70-110)
[2021-06-23] MEDS: atorvastatin 40 mg Tablet 80 MG PO (20:57)
[2021-06-23] MEDS: docusate sodium 100 mg Capsule PO (20:57)
[2021-06-24] VITALS (10 sets, daily range): BP systolic 98–127; BP diastolic 62–77; PULSE 54–103; RESP 15–17; TEMP 36.6–36.9; O2SAT 90–98
[2021-06-24 04:55] LABS: Basophils # 0.1 10^3/uL (0.0-0.1); Basophils % 0.7 %; Eosinophils # 0.3 10^3/uL (0.0-0.8); Hematocrit 33.8 % (37.0-47.0); Hemoglobin 10.1 g/dL (11.5-15.3); Lymphocytes # 1.8 10^3/uL (0.8-4.8); Lymphocytes % 27.3 %; Mean Corpuscular HGB Conc 29.9 g/dL (30.0-36.0); Mean Corpuscular Hemoglobin 29.7 pg (28.0-34.0); Mean Corpuscular Volume 99.4 fl (81-99); Mean Platelet Volume 11.9 fL (7.4-10.4); Monocytes # 0.7 10^3/uL (0.2-0.9); Neutrophils # 3.89 10^3/uL (1.8-7.7); Neutrophils % 57.9 %; Nucleated Red Blood Cells % 0 %; Platelet Count 163 10^3/cmm (130-400); Red Cell Distribution Width 16.6 % (12.1-15.1); White Blood Count 6.7 10^3/uL (4.0-10.0)
[2021-06-24 05:05] LABS: INR 2.32 (0.8-1.2)
[2021-06-24 05:10] LABS: Anion Gap 13.4 (5-19); Blood Urea Nitrogen 28 mg/dL (8-23); Calcium 7.3 mg/dL (8.5-10.5); Carbon Dioxide 29 mmol/L (22-29); Chloride 103 mmol/L (98-107); Glucose 103 mg/dL (65-115); Osmolality Calculated 298 mOsm/kg (285-295); Potassium 4.4 mmol/L (3.5-5.1); Sodium 141 mmol/L (136-145)
[2021-06-24] MEDS: levothyroxine 200 mcg Tablet PO (05:12)
[2021-06-24] MEDS: sennosides-docusate Tablet 1 TAB PO (05:12)
[2021-06-24] MEDS: pantoprazole DR 40 mg Tablet PO (05:13)
[2021-06-24] MEDS: levothyroxine 25 mcg Tablet PO (05:13)
[2021-06-24] MEDS: potassium chloride ER 10 mEq Tablet PO (05:13)
[2021-06-24 06:19] LABS: Glucose Point of Care 105 mg/dL (70-110)
[2021-06-24] MEDS: sodium chloride 0.9% 1,000 ML 30 ML IV (08:39)
[2021-06-24] MEDS: metoprolol tartrate 50 mg Tablet PO ×2 (08:40→17:13)
[2021-06-24] MEDS: citalopram 20 mg Tablet 10 MG PO (08:40)
[2021-06-24] MEDS: aspirin 81 mg EC Tablet PO (08:41)
[2021-06-24] MEDS: spironolactone 25 mg Tablet 12.5 MG PO (08:41)
[2021-06-24] MEDS: gabapentin 100 mg Capsule PO ×2 (08:41→21:29)
[2021-06-24] MEDS: phenytoin ER 100 mg Capsule 200 MG PO ×2 (08:41→17:12)
[2021-06-24] MEDS: clopidogrel 75 mg Tablet PO (08:41)
--- NOTE | 2021-06-24 10:40 | PC.SOCIAL ---
IMM UPDATED IMM dated and initialed and copy given to patient
[2021-06-24 11:29] LABS: Glucose Point of Care 109 mg/dL (70-110)
[2021-06-24] MEDS: calcitriol 0.25 mcg Capsule PO (11:45)
--- NOTE | 2021-06-24 16:31 | P.PN_ITS ---
Subjective Subjective: Interval history: Patient was seen and examined this morning, denies any active complain Medications: Reviewed: Yes Vitals/I&O/Wt Last Vital Signs Temp 98.5 F 06/24/21 15:37 Pulse 73 06/24/21 15:37 Resp 16 06/24/21 15:37 BP 107/71 06/24/21 15:37 Pulse Ox 93 06/24/21 15:37 06/24/21 06/24/21 06/24/21 06:59 14:59 22:59 Intake Total 80 / 200 240 / 240 Output Total 200 / 475 Balance -120 / -275 240 / 240 Physical Exam Const: COMMON NORMALS: patient oriented x3 HENMT: COMMON NORMALS: normocephalic and atraumatic HEAD & SCALP: normocephalic and atraumatic Resp: COMMON NORMALS: clear to auscultation bilaterally EFFORT & INSPECTION: Yes symmetric chest movement AUSCULTATION: clear to auscultation bilaterally OTHER: B/L Fine Crackles present in both lungs griffiths Cardio: COMMON NORMALS: regular rate, regular rhythm, S1 normal heart sound present, S2 normal heart sound present, No gallops present (Cardio), No murmurs present (Cardio), No rub (Cardio) and Peripheral pulses 2+ throughout RATE: regular rate RHYTHM: regular rhythm HEART SOUNDS: S1 normal heart sound present and S2 normal heart sound present PERIPHERAL PULSES: Peripheral pulses 2+ throughout GI: COMMON NORMALS: Normal to inspection, nondistended, normoactive bowel sounds present, Soft to palpation, non-tender, No hepatosplenomegaly present and no masses AUSCULTATION: Yes normoactive bowel sounds PALPATION: Yes Soft to palpation and Yes No hepatosplenomegaly present RECTAL EXAM: deferred Extremity: COMMON NORMALS: no clubbing, cyanosis or edema and no pedal edema NARRATIVE EXTREMITY EXAM: 2+ B/L PITTING EDEMA IN BOTH LOWER EXTREMITY Neuro: COMMON NORMALS: patient oriented x3 Urinary Catheter Management^: Acevedo: Cath Placed During This Visit: yes Reason for Continuing Indwelling Catheter: Accurate Measurement of Urinary Output in Critically Ill Patients Urinary Catheter Date of Insertion: 06/15/21 Urinary Catheter Time of Insertion: 18:22 Data : 06/24/21 04:30 06/24/21 04:30 A&P Assessment and plan (1) Acute on chronic congestive heart failure: Acute on chronic systolic CHF exacerbation plan: - S/P stress test: Abnormal myocardial perfusion imaging with large sized infarct with significant shaina-infarct ischemia noted in left circumflex artery and RCA territory. LV systolic function is severely reduced. -Cardiac 2D echo LV systolic function is severely reduced with EF of 20 to 25%. Right ventricle is hypokinetic. Left atrium is enlarged. Mitral and aortic valves are thickened. Mild mitral regurgitation. Mild pulmonic regurgitation. Trace tricuspid regurgitation. Compared to prior echocardiogram from 01/21/2021, LV systolic function has decreased further. -lasix 40mg po q24H has been discontinued. As the patient is euvolemic. And serum creatinine has slightly worsened -initially as he has been on IV Lasix. 40 twice daily. -Lisinopril 2.5 mg p.o. daily has been discontinued given worsening serum creatinine. -Spironolactone 12.5 mg p.o. daily -continue aspirin, Plavix, Coumadin, beta-efe -fluid restriction <1200cc -Oxygen therapy -Appreciate Cardiology input: Current plan is medical management -Initially she was on Zosyn for concern for pneumonia.Has been discontinued. NSTEMI, likely supply demand ischemia from CHF as above, but cannot rule out underlying CAD given history of CAD and cardiac echocardiogram findings as above -Continue Plavix, continue beta-efe, continue Coumadin, continue statin -Telemetry monitoring -Serial EKGs, serial troponins Status: Acute (2) Atrial fibrillation with RVR: Atrial fibrillation: Currently rate is well controlled continue metoprolol 50 mg twice a day, pharmacy dose Coumadin, INR 1.68 Status: Acute (3) Atherosclerotic heart disease of [place] coronary artery with unstable angina pectoris: CAD, continue statin, Plavix Status: Chronic Qualifiers: [place] vs. transplanted heart: [place] heart Qualified Code(s): I25.110 - Atherosclerotic heart disease of [place] coronary artery with unstable angina pectoris (4) Dyslipidemia: Status: Chronic (5) CKD (chronic kidney disease): CKD, creatinine 2.4 continue to monitor Status: Acute (6) Diabetes: Insulin-dependent type 2 days mellitus, moderate dose sliding scale Status: Acute Qualifiers: Chronic kidney disease stage: stage 3 (moderate) Chronic kidney disease stage 3 subtype: stage 3b (GFR 30-44) Diabetes mellitus complication detail: wi th chronic kidney disease Diabetes mellitus complication status: with kidney complications Diabetes mellitus assisted insulin use: with therapist physical use Diabetes mellitus type: type 2 Qualified Code(s): E11.22 - Type 2 diabetes mellitus with diabetic chronic kidney disease; N18.32 - Chronic kidney disease, stage 3b; Z79.4 - filler block inserter remover (current) use of insulin Additional A&P Information #Loose stool : complaining of 2/3 loose stool daily for the last 2 days , She has been on Abxs for some time. Resolved C.Diff PCR : Negative # Blood in stool: Likely 2/2 to hemorrhoids.H&H Stable.Will continue to monitor. DVT prophylaxis: On warfarin CODE STATUS: Full code Disposition: Patient will need senior living placement, given significant weakness, and physical deconditioning and her current inability to take care of herself, as she is currently alone at home. Attestations Medical Necessity Statement*: Patient is currently awaiting senior living placement, likely discharge on Friday. 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 transplanted heart: [place] heart Dyslipidemia E78.5 CKD (chronic kidney disease) N18.9 Diabetes E11.22; N18.32; Z79.4 Chronic kidney disease stage: stage 3 (moderate) Chronic kidney disease stage 3 subtype: stage 3b (GFR 30-44) Diabetes mellitus complication detail: with chronic kidney disease Diabetes mellitus complication status: with kidney complications Diabetes mellitus therapist physical insulin use: with therapist physical use Diabetes mellitus type: type 2
[2021-06-24 17:00] LABS: Glucose Point of Care 171 mg/dL (70-110)
--- NOTE | 2021-06-24 17:16 | PC.NURSE ---
notified Dr Person that patient refused Humalog and blood sugar is 171.
[2021-06-24 21:12] LABS: Glucose Point of Care 202 mg/dL (70-110)
[2021-06-24] MEDS: docusate sodium 100 mg Capsule PO (21:29)
[2021-06-24] MEDS: atorvastatin 40 mg Tablet 80 MG PO (21:29)
[2021-06-24] MEDS: insulin lispro 100 unit/1 mL SUBCUT (21:40)
[2021-06-25] VITALS (10 sets, daily range): BP systolic 100–125; BP diastolic 66–79; PULSE 67–113; RESP 15–20; TEMP 36.4–36.7; O2SAT 95–100
[2021-06-25] MEDS: potassium chloride ER 10 mEq Tablet PO (05:22)
[2021-06-25] MEDS: pantoprazole DR 40 mg Tablet PO (05:22)
[2021-06-25] MEDS: sennosides-docusate Tablet 1 TAB PO (05:22)
[2021-06-25] MEDS: levothyroxine 200 mcg Tablet PO (05:22)
[2021-06-25] MEDS: levothyroxine 25 mcg Tablet PO (05:22)
[2021-06-25 06:06] LABS: Basophils # 0.1 10^3/uL (0.0-0.1); Basophils % 0.9 %; Eosinophils # 0.3 10^3/uL (0.0-0.8); Eosinophils % 4.2 %; Hematocrit 32.8 % (37.0-47.0); Hemoglobin 9.7 g/dL (11.5-15.3); Lymphocytes # 2.3 10^3/uL (0.8-4.8); Mean Corpuscular HGB Conc 29.6 g/dL (30.0-36.0); Mean Corpuscular Hemoglobin 29.7 pg (28.0-34.0); Mean Corpuscular Volume 100.3 fl (81-99); Mean Platelet Volume 12.1 fL (7.4-10.4); Monocytes % 14.4 %; Neutrophils # 3.15 10^3/uL (1.8-7.7); Neutrophils % 45.9 %; Nucleated Red Blood Cells % 0 %; Platelet Count 154 10^3/cmm (130-400); Red Blood Count 3.27 10^6/uL (4.1-5.3); Red Cell Distribution Width 16.5 % (12.1-15.1); White Blood Count 6.9 10^3/uL (4.0-10.0)
[2021-06-25 06:28] LABS: Anion Gap 11.2 (5-19); Blood Urea Nitrogen 31 mg/dL (8-23); Calcium 7.2 mg/dL (8.5-10.5); Carbon Dioxide 29 mmol/L (22-29); Chloride 103 mmol/L (98-107); Glucose 58 mg/dL (65-115); Osmolality Calculated 292 mOsm/kg (285-295); Potassium 4.2 mmol/L (3.5-5.1); Sodium 139 mmol/L (136-145)
[2021-06-25 06:39] LABS: Glucose Point of Care 79 mg/dL (70-110)
[2021-06-25] MEDS: spironolactone 25 mg Tablet 12.5 MG PO (10:14)
[2021-06-25] MEDS: clopidogrel 75 mg Tablet PO (10:14)
[2021-06-25] MEDS: calcitriol 0.25 mcg Capsule PO (10:14)
[2021-06-25] MEDS: phenytoin ER 100 mg Capsule 200 MG PO ×2 (10:14→17:58)
[2021-06-25] MEDS: metoprolol tartrate 50 mg Tablet PO ×2 (10:15→17:58)
[2021-06-25] MEDS: gabapentin 100 mg Capsule PO ×2 (10:15→20:46)
[2021-06-25] MEDS: citalopram 20 mg Tablet 10 MG PO (10:15)
[2021-06-25] MEDS: aspirin 81 mg EC Tablet PO (10:15)
[2021-06-25] MEDS: sodium chloride 0.9% 1,000 ML 30 ML IV (10:20)
[2021-06-25 11:40] LABS: Glucose Point of Care 112 mg/dL (70-110)
[2021-06-25 13:19] LABS: INR 1.73 (0.8-1.2)
[2021-06-25] MEDS: warfarin 3 mg Tablet 1.5 MG PO (13:29)
--- NOTE | 2021-06-25 13:51 | PC.OT ---
OT TREATMENT ATTEMPTED. PATIENT REPORTS THAT SHE WALKED TO THE BATHROOM AND BACK EARLIER TODAY AND IS TOO TIRED; OFFERED GROOMING BUT DECLINED.
--- NOTE | 2021-06-25 18:45 | P.PN_ITS ---
Subjective Subjective: Interval history: She was seen this morning, she sitting up in a chair, denies any fevers, chills, nausea, vomiting, she is awaiting retirement placement, she tells that she is urinating well, her legs feel better, she feels less short of breath Vitals/I&O/Wt Last Vital Signs Temp 97.5 F L 06/25/21 12:00 Pulse 96 06/25/21 16:00 Resp 20 H 06/25/21 16:00 BP 116/79 06/25/21 16:00 Pulse Ox 95 06/25/21 16:00 06/25/21 06/25/21 06/25/21 06:59 14:59 22:59 Intake Total 60 / 900 1010.5 / 1010.5 240 / 1250.5 Output Total 100 / 100 325 / 325 Balance -40 / 800 1010.5 / 1010.5 -85 / 925.5 Physical Exam Const: COMMON NORMALS: no acute distress and patient oriented x3 Resp: COMMON NORMALS: normal respiratory effort, No retractions, No use of accessory muscles and clear to auscultation bilaterally AUSCULTATION: clear to auscultation bilaterally Cardio: COMMON NORMALS: regular rate, regular rhythm, S1 normal heart sound present and S2 normal heart sound present RATE: regular rate RHYTHM: regular rhythm HEART SOUNDS: S1 normal heart sound present and S2 normal heart sound present GI: COMMON NORMALS: Normal to inspection, nondistended, normoactive bowel sounds present, Soft to palpation and non-tender PALPATION: Yes Soft to palpation Extremity: NARRATIVE EXTREMITY EXAM: Nonpitting edema Neuro: COMMON NORMALS: patient oriented x3 Psych: COMMON NORMALS: mental status grossly normal Urinary Catheter Management^: Acevedo: Cath Placed During This Visit: yes Reason for Continuing Indwelling Catheter: Acute Urinary Retention or Obstruc tion Urinary Catheter Date of Insertion: 06/15/21 Urinary Catheter Time of Insertion: 18:22 Data : 06/25/21 04:42 06/25/21 04:42 A&P Assessment and plan (1) Acute on chronic congestive heart failure: Acute on chronic systolic CHF exacerbation plan: - S/P stress test: Abnormal myocardial perfusion imaging with large sized infarct with significant shaina-infarct ischemia noted in left circumflex artery and RCA territory. LV systolic function is severely reduced. -Cardiac 2D echo LV systolic function is severely reduced with EF of 20 to 25%. Right ventricle is hypokinetic. Left atrium is enlarged. Mitral and aortic valves are thickened. Mild mitral regurgitation. Mild pulmonic regurgitation. Trace tricuspid regurgitation. Compared to prior echocardiogram from 01/21/2021, LV systolic function has decreased further. -Lasix is on hold. As the patient is euvolemic. And serum creatinine has slightly worsened, and gentle IV hydration -initially as he has been on IV Lasix. 40 twice daily. -Lisinopril 2.5 mg p.o. daily has been discontinued given worsening serum creatinine. -Spironolactone 12.5 mg p.o. daily -continue aspirin, Plavix, Coumadin, beta-efe -fluid restriction <1200cc -Oxygen therapy -Appreciate Cardiology input: Current plan is medical management -Initially she was on Zosyn for concern for pneumonia.Has been discontinued. -TIFFANY on CKD, secondary to diuresis, creatinine 3.0, has plateaued, urine output 475 cc, continue to monitor NSTEMI, likely supply demand ischemia from CHF as above, but cannot rule out underlying CAD given history of CAD and cardiac echocardiogram findings as above -Continue Plavix, continue beta-efe, continue Coumadin, continue statin -Telemetry monitoring -Serial EKGs, serial troponins INR 1.73, resume Coumadin Status: Acute (2) Atrial fibrillation with RVR: Atrial fibrillation: Currently rate is well controlled continue metoprolol 50 mg twice a day, pharmacy dose Coumadin, INR 1.68 Status: Acute (3) Atherosclerotic heart disease of [place] coronary artery with unstable angina pectoris: CAD, continue statin, Plavix Status: Chronic Qualifiers: [place] vs. transplanted heart: [place] heart Qualified Code(s): I25.110 - Atherosclerotic heart disease of [place] coronary artery with unstable angina pectoris (4) Dyslipidemia: Status: Chronic (5) CKD (chronic kidney disease): CKD, creatinine 2.4 continue to monitor Status: Acute (6) Diabetes: Insulin-dependent type 2 days mellitus, moderate dose sliding scale Status: Acute Qualifiers: Chronic kidney disease stage: stage 3 (moderate) Chronic kidney disease stage 3 subtype: stage 3b (GFR 30-44) Diabetes mellitus complication detail: wi th chronic kidney disease Diabetes mellitus complication status: with kidney complications Diabetes mellitus alf insulin use: with refrigeration manager use Diabetes mellitus type: type 2 Qualified Code(s): E11.22 - Type 2 diabetes mellitus with diabetic chronic kidney disease; N18.32 - Chronic kidney disease, stage 3b; Z79.4 - FPC (current) use of insulin Additional A&P Information #Loose stool : complaining of 2/3 loose stool daily for the last 2 days , She has been on Abxs for some time. Resolved C.Diff PCR : Negative # Blood in stool: Likely 2/2 to hemorrhoids.H&H Stable.Will continue to monitor. DVT prophylaxis: On warfarin CODE STATUS: Full code Disposition: Patient will need retirement placement, given significant weakness, and physical deconditioning and her current inability to take care of herself, as she is currently alone at home. 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 transplanted heart: [place] heart Dyslipidemia E78.5 CKD (chronic kidney disease) N18.9 Diabetes E11.22; N18.32; Z79.4 Chronic kidney disease stage: stage 3 (moderate) Chronic kidney disease stage 3 subtype: stage 3b (GFR 30-44) Diabetes mellitus complication detail: with chronic kidney disease Diabetes mellitus complication status: with kidney complications Diabetes mellitus alf insulin use: with refrigeration manager use Diabetes mellitus type: type 2
[2021-06-25] MEDS: docusate sodium 100 mg Capsule PO (20:46)
[2021-06-25] MEDS: atorvastatin 40 mg Tablet 80 MG PO (20:46)
[2021-06-25 21:01] LABS: Glucose Point of Care 173 mg/dL (70-110)
[2021-06-25 21:01] LABS: Glucose Point of Care 147 mg/dL (70-110)
[2021-06-26] VITALS (7 sets, daily range): BP systolic 90–113; BP diastolic 52–75; PULSE 70–105; RESP 16–18; TEMP 36.3–36.8; O2SAT 93–98
[2021-06-26] MEDS: levothyroxine 25 mcg Tablet PO (05:20)
[2021-06-26] MEDS: pantoprazole DR 40 mg Tablet PO (05:20)
[2021-06-26] MEDS: levothyroxine 200 mcg Tablet PO (05:20)
[2021-06-26] MEDS: potassium chloride ER 10 mEq Tablet PO (05:20)
[2021-06-26] MEDS: sennosides-docusate Tablet 1 TAB PO (05:20)
[2021-06-26 06:35] LABS: Glucose Point of Care 125 mg/dL (70-110)
[2021-06-26 06:51] LABS: Basophils % 0.6 %; Eosinophils # 0.4 10^3/uL (0.0-0.8); Eosinophils % 5.5 %; Hematocrit 34.3 % (37.0-47.0); Hemoglobin 10.2 g/dL (11.5-15.3); Lymphocytes # 1.8 10^3/uL (0.8-4.8); Lymphocytes % 28.8 %; Mean Corpuscular HGB Conc 29.7 g/dL (30.0-36.0); Mean Corpuscular Hemoglobin 29.9 pg (28.0-34.0); Mean Corpuscular Volume 100.6 fl (81-99); Mean Platelet Volume 12.3 fL (7.4-10.4); Monocytes # 0.8 10^3/uL (0.2-0.9); Neutrophils # 3.34 10^3/uL (1.8-7.7); Neutrophils % 52.6 %; Nucleated Red Blood Cells % 0 %; Platelet Count 171 10^3/cmm (130-400); Red Blood Count 3.41 10^6/uL (4.1-5.3); Red Cell Distribution Width 16.4 % (12.1-15.1); White Blood Count 6.4 10^3/uL (4.0-10.0)
[2021-06-26 07:01] LABS: INR 1.91 (0.8-1.2)
[2021-06-26 07:09] LABS: Alanine Aminotransferase 11 U/L (0-33); Albumin Level 2.7 g/dL (3.5-5.2); Alkaline Phosphatase 192 IU/L (35-105); Anion Gap 15.6 (5-19); Aspartate Amino Transferase 35 U/L (0-32); Blood Urea Nitrogen 36 mg/dL (8-23); Calcium 7.4 mg/dL (8.5-10.5); Carbon Dioxide 25 mmol/L (22-29); Chloride 104 mmol/L (98-107); Globulin 3.2 g/dL (1.3-4.6); Glucose 120 mg/dL (65-115); Magnesium 1.5 mg/dL (1.7-2.3); Osmolality Calculated 300 mOsm/kg (285-295); Potassium 4.6 mmol/L (3.5-5.1); Sodium 140 mmol/L (136-145); Total Bilirubin 0.3 mg/dL (0.15-1.2); Total Protein 5.9 g/dL (6.6-8.7)
--- NOTE | 2021-06-26 07:09 | PC.NURSE ---
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
[2021-06-26] MEDS: gabapentin 100 mg Capsule PO ×2 (09:20→20:57)
[2021-06-26] MEDS: aspirin 81 mg EC Tablet PO (09:20)
[2021-06-26] MEDS: calcitriol 0.25 mcg Capsule PO (09:20)
[2021-06-26] MEDS: metoprolol tartrate 50 mg Tablet PO (09:20)
[2021-06-26] MEDS: spironolactone 25 mg Tablet 12.5 MG PO (09:20)
[2021-06-26] MEDS: clopidogrel 75 mg Tablet PO (09:20)
[2021-06-26] MEDS: citalopram 20 mg Tablet 10 MG PO (09:20)
[2021-06-26] MEDS: phenytoin ER 100 mg Capsule 200 MG PO ×2 (09:20→17:51)
[2021-06-26] MEDS: sodium chloride 0.9% 1,000 ML 30 ML IV (09:21)
--- NOTE | 2021-06-26 09:41 | PC.NURSE ---
Rcvd verbal order from Dr Ramos to increase NS maintenance fluids from 30ml to 100ml. and BMP for 1400. [place] adjusted fluids and put order in for BMP
[2021-06-26 11:01] LABS: Glucose Point of Care 152 mg/dL (70-110)
[2021-06-26] MEDS: magnesium sulfate premix 2 GM/50 ML PIGGYBACK IV (11:40)
--- NOTE | 2021-06-26 11:55 | PC.SOCIAL ---
IMM Updated Updated pt on IMM. No questions voiced. Provided Pt a copy. Initialed, dated, & timed copy in chart.
--- NOTE | 2021-06-26 12:37 | PM.PN ---
Subjective Subjective: Interval history: Patient was seen this morning, she had 500 cc urine output overnight, no shortness of breath, no fevers, chills, lower extremity edema is minimal, no abdominal pain, no flank pain, no dysuria, hematuria Vitals/I&O/Wt Last Vital Signs Temp 97.4 F L 06/26/21 11:46 Pulse 92 06/26/21 11:46 Resp 17 06/26/21 11:46 BP 102/52 06/26/21 11:46 Pulse Ox 93 06/26/21 11:46 06/25/21 06/26/21 06/26/21 22:59 06:59 14:59 Intake Total 360 / 1370.5 961.5 / 961.5 Output Total 325 / 325 200 / 525 Balance 35 / 1045.5 -200 / 845.5 961.5 / 961.5 Physical Exam Const: COMMON NORMALS: no acute distress and patient oriented x3 Resp: COMMON NORMALS: normal respiratory effort, No retractions, No use of accessory muscles and clear to auscultation bilaterally AUSCULTATION: clear to auscultation bilaterally Cardio: COMMON NORMALS: regular rate, regular rhythm, S1 normal heart sound present and S2 normal heart sound present RATE: regular rate RHYTHM: regular rhythm HEART SOUNDS: S1 normal heart sound present and S2 normal heart sound present GI: COMMON NORMALS: Normal to inspection, nondistended, normoactive bowel sounds present and Soft to palpation PALPATION: Yes Soft to palpation Extremity: COMMON NORMALS: no pedal edema Neuro: COMMON NORMALS: patient oriented x3 Psych: COMMON NORMALS: mental status grossly normal Urinary Catheter Management^: Acevedo: Cath Placed During This Visit: yes Reason for Continuing Indwelling Catheter: Acute Urinary Retention or Obstruction Urinary Catheter Date of Insertion: 06/15/21 Urinary Catheter Time of Insertion: 18:22 Data : 06/26/21 06:06 06/26/21 06:06 A&P Assessment and plan (1) Acute on chronic congestive heart failure: Acute on chronic systolic CHF exacerbation plan: - S/P stress test: Abnormal myocardial perfusion imaging with large sized infarct with significant shaina-infarct ischemia noted in left circumflex artery and RCA territory. LV systolic function is severely reduced. -Cardiac 2D echo LV systolic function is severely reduced with EF of 20 to 25%. Right ventricle is hypokinetic. Left atrium is enlarged. Mitral and aortic valves are thickened. Mild mitral regurgitation. Mild pulmonic regurgitation. Trace tricuspid regurgitation. Compared to prior echocardiogram from 01/21/2021, LV systolic function has decreased further. -Creatinine 3.1, Lasix is on hold. As the patient is euvolemic. And serum creatinine has slightly worsened, and normal saline increased to 100 cc, repeat BMP in the afternoon n -initially as he has been on IV Lasix. 40 twice daily. -Lisinopril 2.5 mg p.o. daily has been discontinued given worsening serum creatinine. -Spironolactone 12.5 mg p.o. daily -continue aspirin, Plavix, Coumadin, beta-efe -fluid restriction <1200cc -Oxygen therapy -Appreciate Cardiology input: Current plan is medical management -Initially she was on Zosyn for concern for pneumonia.Has been discontinued. -TIFFANY on CKD, secondary to diuresis, creatinine 3.1, urine output 525 cc, continue to monitor NSTEMI, likely supply demand ischemia from CHF as above, but cannot rule out underlying CAD given history of CAD and cardiac echocardiogram findings as above -Continue Plavix, continue beta-efe, continue Coumadin, continue statin -Telemetry monitoring -Serial EKGs, serial troponins INR 1.91, resume Coumadin Status: Acute (2) Atrial fibrillation with RVR: Atrial fibrillation: Currently rate is well controlled continue metoprolol 50 mg twice a day, pharmacy dose Coumadin, INR 1.68 Status: Acute (3) Atherosclerotic heart disease of [place] coronary artery with unstable angina pectoris: CAD, continue statin, Plavix Status: Chronic Qualifiers: [place] vs. transplanted heart: [place] heart Qualified Code(s): I25.110 - Atherosclerotic heart disease of [place] coronary artery with unstable angina pectoris (4) Dyslipidemia: Status: Chronic (5) CKD (chronic kidney disease): CKD, creatinine 2.4 continue to monitor Status: Acute (6) Diabetes: Insulin-dependent type 2 days mellitus, moderate dose sliding scale Status: Acute Qualifiers: Chronic kidney disease stage: stage 3 (moderate) Chronic kidney disease stage 3 subtype: stage 3b (GFR 30-44) Diabetes mellitus complication detail: with chronic kidney disease Diabetes mellitus complication status: with kidney complications Diabetes mellitus press tender long goods insulin use: with long-term use Diabetes mellitus type: type 2 Qualified Code(s): E11.22 - Type 2 diabetes mellitus with diabetic chronic kidney disease; N18.32 - Chronic kidney disease, stage 3b; Z79.4 - terminal superintendent (current) use of insulin Additional A&P Information #Loose stool : complaining of 2/3 loose stool daily for the last 2 days , She has been on Abxs for some time. Resolved C.Diff PCR : Negative # Blood in stool: Likely 2/2 to hemorrhoids.H&H Stable.Will continue to monitor. DVT prophylaxis: On warfarin CODE STATUS: Full code Disposition: Patient will need chcf placement, given significant weakness, and physical deconditioning and her current inability to take care of herself, as she is currently alone at home. 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 transplanted heart: [place] heart Dyslipidemia E78.5 CKD (chronic kidney disease) N18.9 Diabetes E11.22; N18.32; Z79.4 Chronic kidney disease stage: stage 3 (moderate) Chronic kidney disease stage 3 subtype: stage 3b (GFR 30-44) Diabetes mellitus complication detail: with chronic kidney disease Diabetes mellitus complication status: with kidney complications Diabetes mellitus long-term insulin use: with press tender long goods use Diabetes mellitus type: type 2
[2021-06-26] MEDS: warfarin 3 mg Tablet 1.5 MG PO (15:17)
[2021-06-26 16:39] LABS: Blood Urea Nitrogen 35 mg/dL (8-23); Calcium 7.2 mg/dL (8.5-10.5); Carbon Dioxide 17 mmol/L (22-29); Chloride 100 mmol/L (98-107); Glucose 186 mg/dL (65-115); Osmolality Calculated 297 mOsm/kg (285-295); Sodium 137 mmol/L (136-145)
[2021-06-26 16:49] LABS: Glucose Point of Care 179 mg/dL (70-110)
--- NOTE | 2021-06-26 16:54 | PC.NURSE ---
notified Dr Ramos that patient's creatinine is 2.9 and I turned patient's maintenance fluids back to 30ml/hr at 1400.
--- NOTE | 2021-06-26 18:12 | PC.NURSE ---
notified Dr Ramos that patient had urine output of 225ml for shift
--- NOTE | 2021-06-26 18:24 | PC.NURSE ---
patient is negative for covid. per Dr Ramos, ok to discontinue isolation order
[2021-06-26] MEDS: docusate sodium 100 mg Capsule PO (20:57)
[2021-06-26] MEDS: metoprolol tartrate 25 mg Tablet PO (20:57)
[2021-06-26] MEDS: atorvastatin 40 mg Tablet 80 MG PO (20:57)
[2021-06-26 21:14] LABS: Glucose Point of Care 163 mg/dL (70-110)
[2021-06-27] VITALS (15 sets, daily range): BP systolic 92–149; BP diastolic 41–74; PULSE 56–114; RESP 10–31; TEMP 36.2–36.9; O2SAT 90–100
[2021-06-27] MEDS: potassium chloride ER 10 mEq Tablet PO (06:30)
[2021-06-27] MEDS: pantoprazole DR 40 mg Tablet PO (06:30)
[2021-06-27] MEDS: levothyroxine 25 mcg Tablet PO (06:30)
[2021-06-27] MEDS: sennosides-docusate Tablet 1 TAB PO (06:30)
[2021-06-27] MEDS: levothyroxine 200 mcg Tablet PO (06:31)
[2021-06-27 06:53] LABS: Glucose Point of Care 117 mg/dL (70-110)
[2021-06-27] MEDS: phenytoin ER 100 mg Capsule 200 MG PO (07:57)
[2021-06-27] MEDS: aspirin 81 mg EC Tablet PO (07:57)
[2021-06-27] MEDS: calcitriol 0.25 mcg Capsule PO (07:57)
[2021-06-27] MEDS: gabapentin 100 mg Capsule PO (07:57)
[2021-06-27] MEDS: spironolactone 25 mg Tablet 12.5 MG PO (07:58)
[2021-06-27] MEDS: citalopram 20 mg Tablet 10 MG PO (07:58)
[2021-06-27] MEDS: clopidogrel 75 mg Tablet PO (07:58)
[2021-06-27] MEDS: metoprolol tartrate 25 mg Tablet PO ×2 (07:58→20:57)
[2021-06-27 10:35] LABS: Basophils # 0.1 10^3/uL (0.0-0.1); Basophils % 0.7 %; Eosinophils # 0.3 10^3/uL (0.0-0.8); Eosinophils % 3.9 %; Hematocrit 34.6 % (37.0-47.0); Hemoglobin 10.4 g/dL (11.5-15.3); Lymphocytes # 1.2 10^3/uL (0.8-4.8); Lymphocytes % 16.6 %; Mean Corpuscular HGB Conc 30.1 g/dL (30.0-36.0); Mean Corpuscular Hemoglobin 29.8 pg (28.0-34.0); Mean Corpuscular Volume 99.1 fl (81-99); Mean Platelet Volume 12.2 fL (7.4-10.4); Monocytes # 0.8 10^3/uL (0.2-0.9); Neutrophils # 5.02 10^3/uL (1.8-7.7); Neutrophils % 67.4 %; Nucleated Red Blood Cells % 0 %; Platelet Count 205 10^3/cmm (130-400); Red Blood Count 3.49 10^6/uL (4.1-5.3); Red Cell Distribution Width 16.5 % (12.1-15.1); White Blood Count 7.5 10^3/uL (4.0-10.0)
[2021-06-27 10:46] LABS: INR 2.19 (0.8-1.2)
--- NOTE | 2021-06-27 10:53 | PM.CONSULT ---
Providers/Reason For Consult Consulting Physician/Specialty*: Nephrology Reason for Consult*: TIFFANY on CKD Attending Physician: Delgado Ramos MD Primary Care Provider: Pascual Kay MD History of Present Illness History of Present Illness Thank you for consultation, today had the pleasure reviewing this 75-year-old female whom I met during prior hospitalizations. She came in on 06/13/2021 with worsening shortness of breath in the setting of known heart failure, ejection fraction 35% and quite extensive cardiac history. Following hospitalization she received combination diuretic therapy and over the last few days has been relatively stable from a pulmonary perspective, however, serum creatinine did trend up. Loop diuretics are now held, Spironolactone remains on board. She did have a stress test during her hospital stay which demonstrated abnormal myocardial perfusion imaging with a large sized infarct with significant shaina-infarct ischemia noted in the left circumflex artery and RCA territory with a severely reduced LV systolic function down to 20-25%. Currently the plan from cardiology is to continue to medically manage. She is known to have chronic kidney disease, baseline creatinine is roughly 1.9 mg/dl as demonstrated on admission. During diuresis her serum creatinine trended up to 3.1 yesterday, slightly improved to 2.9 mg/dl today. Bicarb is also slightly decreased at 17. Known complex past medical history of atrial fibrillation on Coumadin, history of chronic UTIs, ESBL, hypothyroidism, CAD status post stenting x2 on Plavix, insulin-dependent type 2 diabetes mellitus, history of EF with diminished ejection fraction 35% She still has dyspnea on exertion although she is lying comfortably at this time without orthopnea or other requirement for supplemental oxygen. She still has significant lower extremity edema although this is vastly improved compared to what it was on admission. Review of Systems Narrative: ROS - 12 point review of systems completed per HPI and subjective assessment, this includes Constitutional: Weakness, fatigue Respiratory: No SOB on exertion, comfortable at rest CardioVasc: No chest pain, palpitations Gastrointestinal: No nausea, no vomiting Neurological: No seizures, no AMS Derm: No new rashes, lesions or wounds Immunological: No seasonal and no food allergies Meds/Allergies Home Medications and Allergies Home Medications Medication Instructions Recorded Confirmed Last Taken Type levothyroxine 225 mcg PO DAILY@0500 09/08/19 06/13/21 06/13/21 History clopidogrel 75 mg PO DAILY@0800 11/29/20 06/13/21 06/13/21 History gabapentin 100 mg capsule 100 mg PO BID@0800,2000 cap 12/05/20 06/13/21 06/13/21 History atorvastatin 80 mg PO BEDTIME@20 12/07/20 06/13/21 06/12/21 History calcitriol 0.25 mcg PO DAILY@0800 01/16/21 06/13/21 06/13/21 History Enema Disposable 118 ml IN DAILY PRN 02/28/21 06/13/21 Unknown History citalopram 10 mg PO DAILY@0800 02/28/21 06/13/21 06/13/21 History docusate sodium 100 mg PO BEDTIME 02/28/21 06/13/21 06/12/21 History bumetanide 2 mg PO QAM 06/13/21 06/13/21 06/13/21 History empagliflozin [Jardiance] 10 mg PO DAILY 06/13/21 06/13/21 06/13/21 History folic acid 2 cap PO BEDTIME 06/13/21 06/13/21 Unknown History insulin aspart U-100 [Novolog See Rx Instructions .ROUTE .COMPLEX 06/13/21 06/13/21 Unknown History Flexpen U-100 Insulin] insulin detemir U-100 [Levemir 4 - 8 unit SUBCUT BEDTIME 06/13/21 06/13/21 Unknown History FlexTouch U-100 Insuln] meclizine 12.5 mg PO QAM 06/13/21 06/13/21 06/13/21 History metoprolol tartrate 25 mg PO BID 06/13/21 06/13/21 06/13/21 09:00 History mupirocin 1 applic TOPICAL BID PRN 06/13/21 06/13/21 Unknown History pantoprazole 40 mg PO QAM 06/13/21 06/13/21 06/13/21 History phenytoin sodium extended 200 mg PO BID 06/13/21 06/13/21 06/13/21 09:00 History potassium chloride 10 meq PO QAM 06/13/21 06/13/21 06/13/21 History sennosides-docusate sodium 1 tab PO QAM 06/13/21 06/13/21 06/13/21 History [Senna-S] warfarin 0.5 mg PO QAM 06/13/21 06/13/21 06/13/21 History Allergies Allergy/AdvReac Type Severity Reaction Status Date / Time gentamicin Allergy Unknown Verified 06/13/21 13:31 hydromorphone [From Dilaudid] Allergy Unknown Verified 06/13/21 13:31 Current Medications Current Medications Generic Name Dose Route Start Last Admin Trade Name Michaq PRN Reason Stop Dose Admin Aspirin 81 mg 06/15/21 10:30 06/27/21 07:57 Aspirin 81 Mg Ec Tablet PO 81 mg DAILY ARMINDA Administration Atorvastatin Calcium 80 mg 06/14/21 20:00 06/26/21 20:57 Atorvastatin 40 Mg Tablet PO 80 mg BEDTIME@20 ARMINDA Administration Calcitriol 0.25 mcg 06/14/21 08:00 06/27/21 07:57 Calcitriol 0.25 Mcg Capsule PO 0.25 mcg DAILY@0800 ARMINDA Administration Citalopram Hydrobromide 10 mg 06/14/21 08:00 06/27/21 07:58 Citalopram 20 Mg Tablet PO 10 mg DAILY@0800 ARMINDA Administration Clopidogrel Bisulfate 75 mg 06/14/21 08:00 06/27/21 07:58 Clopidogrel 75 Mg Tablet PO 75 mg DAILY@0800 ARMINDA Administration Docusate Sodium 100 mg 06/13/21 21:12 06/26/21 20:57 Docusate Sodium 100 Mg Capsule PO 100 mg BEDTIME ARMINDA Administration Gabapentin 100 mg 06/13/21 21:12 06/27/21 07:57 Gabapentin 100 Mg Capsule PO 100 mg BID@0800,2000 ARMINDA Administration Insulin Human Lispro 0 unit 06/13/21 21:12 06/27/21 07:24 Insulin Lispro 100 Unit/1 Ml SUBCUT Not Given WM&BEDTIME ARMINDA Protocol Levothyroxine Sodium 200 mcg 06/14/21 05:00 06/27/21 06:31 Levothyroxine 200 Mcg Tablet PO 200 mcg DAILY@0500 ARMINDA Administration Levothyroxine Sodium 25 mcg 06/14/21 05:00 06/27/21 06:30 Levothyroxine 25 Mcg Tablet PO 25 mcg DAILY@0500 ARMINDA Administration Metoprolol Tartrate 25 mg 06/26/21 21:00 06/27/21 07:58 Metoprolol Tartrate 25 Mg Tablet PO 25 mg BID@0900,2100 ARMINDA Administration Pantoprazole Sodium 40 mg 12/02/21 06:00 06/27/21 06:[address] 40 Mg Tablet PO 40 mg QAM ARMINDA Administration Phenytoin 200 mg 06/14/21 09:00 06/27/21 07:57 Phenytoin Er 100 Mg Capsule PO 200 mg BID ARMINDA Administration Potassium Chloride 10 meq 06/14/21 06:00 06/27/21 06:30 Potassium Chloride Er 10 Meq Tablet PO 10 meq QAM ARMINDA Administration Senna/Docusate Sodium 1 tab 06/14/21 06:00 06/27/21 06:30 Sennosides-Docusate Tablet PO 1 tab QAM ARMINDA Administration Spironolactone 12.5 mg 06/21/21 09:45 06/27/21 07:58 Spironolactone 25 Mg Tablet PO 12.5 mg DAILY ARMINDA Administration Warfarin Sodium 1.5 mg 06/16/21 14:00 06/26/21 15:17 Warfarin 3 Mg Tablet PO 1.5 mg DAILY@1400 ARMINDA Administration PFSH Acute PFSH: Medical History Afib Anemia Atrial fibrillation with RVR CAD (coronary artery disease) Chronic anticoagulation Eliquis CKD (chronic kidney disease) Congestive heart failure Diabetes Dyslipidemia Hematoma of left flank HTN (hypertension) Morbid obesity Morbid obesity PVD (peripheral vascular disease) 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) Status post insertion of drug-eluting stent into left anterior descending (LAD) artery Urine retention Venous stasis Surgical History History of ankle surgery History of cataract surgery History of cholecystectomy History of heart artery stent History of umbilical hernia repair S/P hemodialysis catheter insertion (11/22/20) Right internal jugular vein d/c 12/25/20 Family History Other Cancer Diabetes Social History Smoking and tobacco status: never smoked Alcohol intake: never Marital status: / Current occupational status: retired History of recent travel: No Vitals/I&O/Wt Last Vital Signs Temp 97.6 F 06/27/21 07:47 Pulse 114 H 06/27/21 08:57 Resp 18 06/27/21 08:57 BP 109/74 06/27/21 07:47 Pulse Ox 94 06/27/21 08:58 06/26/21 06/27/21 06/27/21 22:59 06:59 14:59 Intake Total 1076.667 / 2088.167 512.333 / 2600.500 120 / 120 Output Total 225 / 225 Balance 851.667 / 1863.167 512.333 / 2375.500 120 / 120 Physical Exam Narrative: EXAM NARRATIVE: Constitutional: Awake, comfortable HEENT: Wet mucosa, no jvp, non icteric Lungs: Bilaterally clear without discernible wheeze, rales in all lung zones CVS: S1 S2, no murmurs Abdo: Soft, BS ok Ext 4: 2-3+ edema, peripheral perfusion with no cyanosis Neurological: Grossly non-focal Urinary Catheter Management^: Acevedo: Cath Placed During This Visit: yes Reason for Continuing Indwelling Catheter: Acute Urinary Retention or Obstruction Urinary Catheter Date of Insertion: 06/15/21 Urinary Catheter Time of Insertion: 18:22 A&P Additional A&P Information 1. acute on chronic kidney disease. Creatinine 1.9 at baseline. This trended up to 3.1, slight decreasing to 2.9 yesterday and labs are pending for today. This is consistent with intravascular from depletion from diuretic therapy in the setting of effective diuresis for symptomatic heart failure. She still has some lower extremity edema but otherwise looks clinically euvolemic. Her physiology will almost certainly cause her to progressively accumulate salt to water i.e. she is in a chronic sodium avid state. With this in mind she will almost certainly need to resume her Bumex in the next day or so to maintain clinical euvolemia. It is getting progressively more challenging to find the balance between hypervolemia and intravascular volume depletion as her heart gets worse and she gets progressively more severe chronic kidney disease. She is at an incredibly high risk of developing either overt renal failure or overt heart failure in the coming weeks to months. This in mind she may need to initiate renal replacement therapy in some fashion in the coming weeks to months. She needs extremely close follow-up from outpatient team following discharge with frequent labs and clinical evaluation. As long as creatinine coming down today, will resume her outpatient bumetanide 2 mg p.o. daily Continue spironolactone and potassium supplements. Avoid usual nephrotoxic agents. 2. Chemistry Today's chemistry is currently pending, she is on potassium replacement therapy. Anion gap metabolic acidosis noted, likely secondary to kidney dysfunction. Defer alkalinization for now to avoid the additional sodium. 3. Disposition At this time I would recommend discharge back to retirement facility with close outpatient monitoring. Again as mentioned above, she is at incredibly high risk of heart and kidney failure in the coming weeks to months. Thanks for consult Corbin Sánchez MD Nephrology [phone] Patient seen and examined via telemedicine, with the assistance of the bedside RN > 25 min spent in evaluation and mgmt of patient Consult Attestations Medical Necessity Statement: Eval for TIFFANY Coding Level of Care Code Acute Night Clerk Auditor for Sosa Bates
[2021-06-27 10:59] LABS: Alanine Aminotransferase 11 U/L (0-33); Albumin Level 2.9 g/dL (3.5-5.2); Alkaline Phosphatase 194 IU/L (35-105); Anion Gap 19.2 (5-19); Aspartate Amino Transferase 34 U/L (0-32); Blood Urea Nitrogen 35 mg/dL (8-23); Calcium 7.3 mg/dL (8.5-10.5); Carbon Dioxide 23 mmol/L (22-29); Chloride 100 mmol/L (98-107); Glucose 194 mg/dL (65-115); Magnesium 1.8 mg/dL (1.7-2.3); Osmolality Calculated 299 mOsm/kg (285-295); Potassium 4.2 mmol/L (3.5-5.1); Sodium 138 mmol/L (136-145); Total Bilirubin 0.3 mg/dL (0.15-1.2); Total Protein 5.9 g/dL (6.6-8.7)
--- NOTE | 2021-06-27 11:37 | PM.DCS ---
Discharge Providers Date of Admission: 06/13/21 18:15 Date of Discharge: June 27, 2021 Attending Provider at Admission: Delgado Ramos MD Attending Provider at Discharge: Delgado Ramos MD Primary Care Provider: Pascual Kay MD Diagnoses at Discharge Discharge Diagnosis (1) Acute on chronic congestive heart failure: Status: Acute (2) Atrial fibrillation with RVR: Status: Acute (3) Atherosclerotic heart disease of [place] coronary artery with unstable angina pectoris: Status: Chronic Qualifiers: [place] vs. transplanted heart: [place] heart Qualified Code(s): I25.110 - Atherosclerotic heart disease of [place] coronary artery with unstable angina pectoris (4) Dyslipidemia: Status: Chronic (5) CKD (chronic kidney disease): Status: Acute (6) Diabetes: Status: Acute Qualifiers: Chronic kidney disease stage: stage 3 (moderate) Chronic kidney disease stage 3 subtype: stage 3b (GFR 30-44) Diabetes mellitus complication detail: with chronic kidney disease Diabetes mellitus complication status: with kidney complications Diabetes mellitus tank terminal gauger insulin use: with correction use Diabetes mellitus type: type 2 Qualified Code(s): E11.22 - Type 2 diabetes mellitus with diabetic chronic kidney disease; N18.32 - Chronic kidney disease, stage 3b; Z79.4 - salvage determiner (current) use of insulin Reason for Visit Reason for Visit: RESP DISTRESS Hospital Course Hospital Course Carole Lee is a 75 year old female with past medical history of atrial fibrillation on Coumadin, history of chronic UTIs, ESBL, hypothyroidism, CAD status post stenting x2 on Plavix, insulin-dependent type 2 diabetes mellitus, history of EF with diminished ejection fraction 35%, who presents [facility] due to worsening shortness of breath. Patient was admitted to [facility] for acute on chronic systolic CHF exacerbation, received diuresis, shortness of breath and bilateral extremity edema improved, discharged on Bumex 2 mg daily Patient developed TIFFANY on chronic kidney disease secondary to diuresis, her diuresis had to be held over a few days, received gentle IV hydration, creatinine remained between 2.9-3, however urine output was relatively lackluster, nephrology was consulted. Likely has progression of CKD in the setting of advanced systolic CHF. Recommended continuing home Bumex 2 mg daily, with close follow-up with creatinine, following urine output at her senior living, and following with Dr. Hendricks as outpatient. NSTEMI, likely supply demand ischemia from CHF as above, but cannot rule out underlying CAD given history of CAD - S/P stress test: Abnormal myocardial perfusion imaging with large sized infarct with significant shaina-infarct ischemia noted in left circumflex artery and RCA territory. LV systolic function is severely reduced. -Cardiac 2D echo LV systolic function is severely reduced with EF of 20 to 25%. Right ventricle is hypokinetic. Left atrium is enlarged. Mitral and aortic valves are thickened. Mild mitral regurgitation. Mild pulmonic regurgitation. Trace tricuspid regurgitation. Compared to prior echocardiogram from 01/21/2021, LV systolic function has decreased further. -Cardiology was consulted, given creatinine, decision was made to pursue medical management, follow-up with cardiology as outpatient -Continue Plavix, aspirin, continue beta-efe, continue Coumadin, continue statin -If she were to have recurrent chest pain go to the emergency room Physical Exam Urinary Catheter Management^: Acevedo: Cath Placed During This Visit: yes Reason for Continuing Indwelling Catheter: Acute Urinary Retention or Obstruction Urinary Catheter Date of Insertion: 06/15/21 Urinary Catheter Time of Insertion: 18:22 Discharge Data Data Completed and Pending: Completed Studies During Hospitalization Category Date Time Status Sestamibi Stress Test Request Routi ne Exams 06/17/21 09:34 Draft XR chest 1V cole ble [id number] Urgent Exams 06/13/21 11:47 Completed NM tobi perf SPECT r/s* [id number] Routin e Nuc Med 06/18/21 09:34 Completed CV. echo complete * [id number] Routine Ultrasound 06/14/21 21:12 Completed Pending at discharge Category Date Time Status Complete Blood Co unt w/Auto AM LABS Lab 06/28/21 04:00 Ordered Comprehensive Met abolic Panel AM LA BS Lab 06/28/21 04:00 Ordered Magnesium AM LABS Lab 06/28/21 04:00 Ordered Prothrombin Time INR AM LABS Lab 06/28/21 04:00 Ordered Labs from last 24 hours 06/27/21 06/27/21 06/27/21 10:20 10:20 10:20 WBC 7.5 RBC 3.49 L Hgb 10.4 L Hct 34.6 L MCV 99.1 H MCH 29.8 MCHC 30.1 RDW 16.5 H Plt Count 205 MPV 12.2 H Neut % (Auto) 67.4 Lymph % (Auto) 16.6 Candler % (Auto) 11.0 Eos % (Auto) 3.9 Baso % (Auto) 0.7 Neut # (Auto) 5.02 Lymph # (Auto) 1.2 [place] # (Auto) 0.8 Eos # (Auto) 0.3 Baso # (Auto) 0.1 Nucleated RBC % (a uto) 0 Nucleated RBCs # 0.0 PT 24.70 H INR 2.19 H Sodium 138 Potassium 4.2 Chloride 100 Carbon Dioxide 23 Anion Gap 19.2 H BUN 35 H Creatinine 2.7 H GFR Calculation Not Reportable Glucose 194 H POC Glucose Calculated Osmolal ity 299 H Calcium 7.3 L Magnesium 1.8 Total Bilirubin 0.3 AST 34 H ALT 11 Alkaline Phosphata se 194 H Total Protein 5.9 L Albumin 2.9 L Globulin 3.0 06/27/21 06/26/21 06/26/21 06:45 20:50 16:40 WBC RBC Hgb Hct MCV MCH MCHC RDW Plt Count MPV Neut % (Auto) Lymph % (Auto) [place] % (Auto) Eos % (Auto) Baso % (Auto) Neut # (Auto) Lymph # (Auto) Cand[place] # (Auto) Eos # (Auto) Baso # (Auto) Nucleated RBC % (a uto) Nucleated RBCs # PT INR Sodium Potassium Chloride Carbon Dioxide Anion Gap BUN Creatinine GFR Calculation Glucose POC Glucose 117 H 163 H 179 H Calculated Osmolal ity Calcium Magnesium Total Bilirubin AST ALT Alkaline Phosphata se Total Protein Albumin Globulin 06/26/21 14:18 WBC RBC Hgb Hct MCV MCH MCHC RDW Plt Count MPV Neut % (Auto) Lymph % (Auto) [place] % (Auto) Eos % (Auto) Baso % (Auto) Neut # (Auto) Lymph # (Auto) Cand[place] # (Auto) Eos # (Auto) Baso # (Auto) Nucleated RBC % (a uto) Nucleated RBCs # PT INR Sodium 137 Potassium 5.0 Chloride 100 Carbon Dioxide 17 L Anion Gap 25.0 H BUN 35 H Creatinine 2.9 H GFR Calculation Not Reportable Glucose 186 H POC Glucose Calculated Osmolal ity 297 H Calcium 7.2 L Magnesium Total Bilirubin AST ALT Alkaline Phosphata se Total Protein Albumin Globulin Vitals: Last Vital Signs Temp 97.6 F 06/27/21 07:47 Pulse 114 H 06/27/21 08:57 Resp 18 06/27/21 08:57 BP 109/74 06/27/21 07:47 Pulse Ox 94 06/27/21 08:58 Discharge Plan Discharge Patient Disposition: Home Condition: Stable Prescriptions: New warfarin [Jantoven] 3 mg Tablet 1.5 mg PO DAILY@1400 30 Days Qty: 30 RF: 0 aspirin 81 mg Tablet,Delayed Release (Dr/Ec) 81 mg PO DAILY 30 Days Qty: 30 RF: 0 spironolactone 25 mg Tablet 12.5 mg PO DAILY 30 Days Qty: 30 RF: 0 Continued gabapentin 100 mg capsule 100 mg PO BID@0800,2000 RF: 0 levothyroxine 200 mcg tablet 225 mcg PO DAILY@0500 RF: 0 clopidogrel 75 mg tablet 75 mg PO DAILY@0800 RF: 0 calcitriol 0.25 mcg capsule 0.25 mcg PO DAILY@0800 RF: 0 atorvastatin 80 mg Tablet 80 mg PO BEDTIME@20 RF: 0 Enema Disposable 19-7 gram/118 mL Enema 118 ml MS DAILY PRN (Reason: Constipation) RF: 0 citalopram 10 mg Tablet 10 mg PO DAILY@0800 RF: 0 docusate sodium 100 mg capsule 100 mg PO BEDTIME RF: 0 bumetanide 2 mg tablet 2 mg PO QAM RF: 0 Senna-S 8.6-50 mg Tablet 1 tab PO QAM RF: 0 meclizine 12.5 mg Tablet 12.5 mg PO QAM RF: 0 phenytoin sodium extended 100 mg capsule 200 mg PO BID RF: 0 pantoprazole 40 mg tablet,delayed release (DR/EC) 40 mg PO QAM RF: 0 Novolog Flexpen U-100 Insulin 100 unit/mL (3 mL) insulin pen See Rx Instructions .ROUTE .COMPLEX RF: 0 potassium chloride 10 mEq tablet,ER particles/crystals 10 meq PO QAM RF: 0 metoprolol tartrate 25 mg tablet 25 mg PO BID RF: 0 folic acid 2 cap PO BEDTIME RF: 0 mupirocin 2 % ointment 1 applic topical BID PRN (Reason: UNKNOWN) RF: 0 Changed Levemir FlexTouch U-100 Insuln 100 unit/mL (3 mL) insulin pen 5 unit SUBCUT BEDTIME Qty: 0 RF: 0 Discontinued Jardiance 10 mg tablet 10 mg PO DAILY RF: 0 warfarin 1 mg tablet 0.5 mg PO QAM RF: 0 Discharge Orders: Discharge Order (Routine); Ordered 06/27/21 Ordered By: Delgado Ramos Referrals: [facility] [Outside] [facility] ([facility]) [Outside] (You have been accepted to [facility]. They will be contacting you about a time to admit you to their services. If you have any questions please call them at [phone].) Dedrick Hendricks MD [Referring] - 4-7 days Ramon Garcia M.D [Physician] - 7-10 days Pascual Kay MD [Primary Care Provider] - Discharge Diet: Cardiac Discharge Activity: Resume usual activity Patient Instructions: Opioid Safety Activity Restrictions/Additional Instructions: -Continue Coumadin 1.5 mg daily, recheck INR tomorrow -Please have patient follow-up with cardiology in 1 week -Continue Bumex 2 mg daily, creatinine on discharge 2.9, monitor urine output, monitor creatinine -Recheck creatinine tomorrow -If creatinine continues to upward trend, stop the Bumex -please have patient follow-up with Dr. Hendricks Discharge Attestations Time Spent in Discharge Care*: less than 30 min Quality Metrics Clinical Quality Measures During this hospital stay, did patient experience: None Coding Level of Care Code Acute Chg FW DC note Diagnoses Acute on chronic congestive heart failure I50.9 Atrial fibrillation with RVR I48.91 Atherosclerotic heart disease of [place] coronary artery with unstable angina pectoris I25.110 [place] vs. transplanted heart: [place] heart Dyslipidemia E78.5 CKD (chronic kidney disease) N18.9 Diabetes E11.22; N18.32; Z79.4 Chronic kidney disease stage: stage 3 (moderate) Chronic kidney disease stage 3 subtype: stage 3b (GFR 30-44) Diabetes mellitus complication detail: with chronic kidney disease Diabetes mellitus complication status: with kidney complications Diabetes mellitus correction insulin use: with correction use Diabetes mellitus type: type 2
[2021-06-27] MEDS: insulin lispro 100 unit/1 mL SUBCUT (11:50)
[2021-06-27] MEDS: ondansetron 2 mg/ML SDV 2 mL 4 MG IVP (12:24)
[2021-06-27 12:26] LABS: Glucose Point of Care 241 mg/dL (70-110)
--- NOTE | 2021-06-27 12:26 | ECG_ITS ---
[facility] Test Date: 2021-06-27 Pat Name: Carole Lee Department: Room: 254 Gender: Female Clinical Laboratory Aide: : 1945 Requested By: Rashaad Gutierrez Order Number: [id number] Danielle MD: Antonietta Jo M.D. Measurements Intervals Thompson Rate: 116 P: 69 HI: 246 QRS: 142 QRSD: 134 T: 30 QT: 344 QTc: 478 Interpretive Statements Atrial fibrillation with rapid ventricular rate RIGHT AXIS DEVIATION [QRS AXIS > 100] INTRAVENTRICULAR CONDUCTION DELAY [130+ ms QRS DURATION] POSSIBLE ANTERIOR MYOCARDIAL INFARCTION , OF INDETERMINATE AGE [30 ms Q WAVE IN V3/V4, OR R < 0.2 mV IN V4] Compared to ECG 06/13/2021 13:22:02 First degree AV block now present Intraventricular conduction delay now present Atrial fibrillation no longer present Myocardial infarct finding still present Electronically Signed On 06-27-2021 22:02:30 MARKETING AMBASSADOR by Antonietta Jo M.D. [id number]
[2021-06-27 12:33] LABS: Glucose Point of Care 245 mg/dL (70-110)
--- NOTE | 2021-06-27 12:34 | CTR_ITS ---
PROCEDURE INFORMATION: Exam: CT Head Without Contrast Exam date and time: 06/27/2021 12:34 PM Age: 75 years old Clinical indication: Altered mental status/memory loss; Confusion or disorientation; Additional info: Mental status change TECHNIQUE: Imaging protocol: Computed tomography of the head without contrast. Radiation optimization: All CT scans at this facility use at least one of these dose optimization techniques: automated exposure control; mA and/or kV adjustment per patient size (includes targeted exams where dose is matched to clinical indication); or iterative reconstruction. COMPARISON: CT head wo con* [id number] 01/16/2021 3:52 PM RADIATION DOSE METRICS: Total DLP (mGy-cm): 1138.81 FINDINGS: Brain: No intracranial hemorrhage, edema or other acute abnormalities are seen in the brain. There is generalized chronic atrophy with prominence of the ventricles and sulci. There is mild decreased white matter density consistent with chronic small vessel white matter ischemia. There is no mass effect or midline shift. Cerebral ventricles: The ventricles are prominent consistent with chronic atrophy. Paranasal sinuses: Visualized sinuses are unremarkable. No fluid levels. Mastoid air cells: Visualized mastoid air cells are well aerated. Bones/joints: Unremarkable. No acute fracture. Soft tissues: Unremarkable. CT/CT head wo con* [id number] IMPRESSION: 1. No acute intracranial abnormality. 2. Chronic atrophy with mild chronic white matter ischemic changes.
[2021-06-27 12:35] LABS: ABG PCO2 41.6 mmHg (35-45); Alveolar-Arterial Oxygen Gradi 3.6 mmHg (5-10); Arterial Blood Gas Hematocrit 34.9 % (37-47); Base Excess ABG 0.5 mmol/L (-2.0-2.0); Blood Gas Allen Test Pos; Blood Gas Operator Identificat RC; Blood Gas Sample Site Radial, left; Blood Gas Sample Type Arterial; Carboxyhemoglobin 1.6 %THgb (0.4-20.1); HCO3 ABG 25.5 mmol/L (22-26); HGB O2 Sat 93.3 % (95-100); Ionized Calcium Level - ABG 1.1 mmol/L (1.1-1.4); Methemoglobin 0.8 % (0.4-1.5); Oxygen Saturation ABG 95.5; PO2 ABG 70.2 mmHg (80.0-100.0); Potassium Level - ABG 4.5 mmol/L (3.5-5.0); Total Hemoglobin 11.4 g/dL (12-16)
[2021-06-27 12:36] LABS: Oxygen Device ROOM AIR
[2021-06-27] MEDS: magnesium sulfate premix 2 GM/50 ML PIGGYBACK IV (13:26)
[2021-06-27] MEDS: sodium chloride 0.9% 500 ML 50 ML IV (13:26)
[2021-06-27] MEDS: sodium chloride 0.9% 1,000 ML 50 ML IV (13:39)
--- NOTE | 2021-06-27 14:26 | ECG_ITS ---
[facility] Test Date: 2021-06-27 Pat Name: Carole Lee Department: Room: 111 Gender: Female Kiln Burner: : 1945 Requested By: Rashaad Gutierrez Order Number: [id number] Reading MD: Antonietta Jo M.D. Measurements Intervals [place] Rate: 66 P: NC: QRS: 121 QRSD: 130 T: 180 QT: 455 QTc: 480 Interpretive Statements ATRIAL FIBRILLATION RIGHT AXIS DEVIATION [QRS AXIS > 100] POSSIBLE ANTERIOR MYOCARDIAL INFARCTION , OF INDETERMINATE AGE [30 ms Q WAVE IN V3/V4, OR R < 0.2 mV IN V4] Compared to ECG 06/27/2021 12:35:32 Sinus tachycardia no longer present First degree AV block no longer present Intraventricular conduction delay no longer present Myocardial infarct finding still present Electronically Signed On 06-27-2021 22:14:33 RAT FARMER by Antonietta Jo M.D. [id number]
[2021-06-27 14:58] LABS: Basophils # 0.1 10^3/uL (0.0-0.1); Basophils % 0.7 %; Eosinophils # 0.1 10^3/uL (0.0-0.8); Eosinophils % 1.9 %; Hematocrit 33.9 % (37.0-47.0); Hemoglobin 9.7 g/dL (11.5-15.3); Lymphocytes % 13.6 %; Mean Corpuscular HGB Conc 28.6 g/dL (30.0-36.0); Mean Corpuscular Hemoglobin 30.7 pg (28.0-34.0); Mean Corpuscular Volume 107.3 fl (81-99); Mean Platelet Volume 12.1 fL (7.4-10.4); Monocytes % 14.3 %; Neutrophils # 4.96 10^3/uL (1.8-7.7); Neutrophils % 68.9 %; Nucleated Red Blood Cells % 0 %; Platelet Count 164 10^3/cmm (130-400); Red Blood Count 3.16 10^6/uL (4.1-5.3); Red Cell Distribution Width 16.3 % (12.1-15.1); White Blood Count 7.2 10^3/uL (4.0-10.0)
--- NOTE | 2021-06-27 15:07 | XRR_ITS ---
PROCEDURE INFORMATION: Exam: XR Chest Exam date and time: 06/27/2021 3:07 PM Age: 75 years old Clinical indication: Shortness of breath; Additional info: SOB TECHNIQUE: Imaging protocol: XR of the chest. Views: 1 view. COMPARISON: CR XR chest 1V portable [id number] 06/13/2021 12:05 PM FINDINGS: Lungs: Ill-defined right lung opacity. Left basilar opacity with suspected small to moderate volume left pleural effusion. Pleural spaces: Unremarkable. No pleural effusion. No pneumothorax. Heart/Mediastinum: Stable cardiomegaly. Central pulmonary vascular congestion noted. Bones/joints: Unremarkable. XR/XR chest 1V portable [id number] IMPRESSION: Ill-defined right lung opacity. Left basilar opacity with a suspected small to moderate volume left pleural effusion.
[2021-06-27 15:13] LABS: ABG PH Result 7.29 (7.35-7.45); Arterial Blood Gas Hematocrit 30.8 % (37-47); Base Excess ABG 1.9 mmol/L (-2.0-2.0); Blood Gas Sample Type Arterial; HCO3 ABG 29.3 mmol/L (22-26); PO2 ABG 54.8 mmHg (80.0-100.0)
[2021-06-27 15:14] LABS: Blood Gas Operator Identificat ED; Blood Gas Sample Site Brachial, right; Oxygen Device ROOM AIR
[2021-06-27 15:16] LABS: ABG PCO2 60.5 mmHg (35-45)
[2021-06-27 16:53] LABS: Troponin(5th) Baseline 109 ng/L (0-10)
[2021-06-27 16:59] LABS: Alanine Aminotransferase 11 U/L (0-33); Albumin Level 2.5 g/dL (3.5-5.2); Alkaline Phosphatase 176 IU/L (35-105); Aspartate Amino Transferase 32 U/L (0-32); Blood Urea Nitrogen 35 mg/dL (8-23); Calcium 7.2 mg/dL (8.5-10.5); Carbon Dioxide 23 mmol/L (22-29); Chloride 101 mmol/L (98-107); Glucose 71 mg/dL (65-115); Magnesium 2.1 mg/dL (1.7-2.3); NT Pro B Type Natriuretic Pept 27415 pg/mL (0-450); Osmolality Calculated 290 mOsm/kg (285-295); Sodium 137 mmol/L (136-145); Total Bilirubin 0.2 mg/dL (0.15-1.2); Total Protein 5.5 g/dL (6.6-8.7)
[2021-06-27 17:02] LABS: Anion Gap 17.6 (5-19); Potassium 4.6 mmol/L (3.5-5.1)
--- NOTE | 2021-06-27 18:03 | P.PN_ITS ---
Subjective Subjective: Interval history: Patient was examined multiple times throughout the day Early in the morning, patient was seen, she was sitting up in the chair, on oxygen mask, 2 to 3 L, she tells me that she had an uneventful night, no fevers, chills, nausea, vomiting, her edema is significantly improved, I had nephrology evaluate patient as her creatinine was 2.7 her urine output for the last 24 hours was 525, she really wanted to go to the alf today, as her prior Auth would and she would have to wait longer in the hospital, she was seen by nephrology she tells me, and they said that it was okay for me to go to the alf and they told me that they would not put you back on Bumex, she was enthusiastic about going to the alf, denied any chest pain, no palpitations, no lightheadedness, dizziness, nausea, vomiting Patient was going to be discharged, her discharge paperwork and orders were placed, However at roughly 1230, patient was getting up to the bedside commode, when she had an episode of nonsustained V. tach, lasting 3 to 4 seconds, and she became unresponsive, no facial droop, slurring of words, no focal neurologic deficits, she was moved to bed, she was normotensive, saturating high 90s on 2 L, EKG showed no acute ST-T wave changes, I came and evaluated patient, as she was being taken to the CT scanner which I ordered, she was moaning, responsive squeezing my fingers, able to open her eyes, tells me that she was not doing okay, I reexamined patient when she was brought up to the general medical floors, she awakens up, she tells me what has happened she asks, I told her that she had a abnormal cardiac rhythm, nonsustained V. tach, likely resulting in poor blood flow to her brain resulting in her alteration in her mentation, her CT of her head does not show an acute stroke, I do not think that she is had a stroke as she is on aspirin Plavix and Coumadin and her INR is therapeutic. I advised that likely will need to talk to cardiology about pursuing an angiogram given her decrease in ejection fraction and her cardiac arrhythmia Patient was brought down to the cardiac stepdown unit, she was found to be hypercarbic so advised nursing staff to put her on BiPAP, BiPAP she follows, she wiggles her toes squeezes my fingers, she tells me she is doing okay, but she is just tired she did not get any sleep I was able to discuss with patient's son Jimi Lee her current condition, I discussed my concerns for her worsening ejection fraction resulting in cardiac arrhythmia arrhythmia, and that we might need to pursue coronary angiography, but we are significantly concerned about her risk of being put on dialysis given her CKD, risk of heart attack, risk of stroke, he tells me that if we need to proceed coronary angiography, he is all for it, he tells me that he will talk to his mom to get her to agree if required, but he thinks that proceeding with coronary angiography is reasonable I was present during Dr. Chaudhari's rounding, Dr. Chaudhari discussed her concerns for her decreased ejection fraction, no cardiac arrhythmia, concerning for underlying coronary artery disease, he discussed with with her the plans of medical management versus pursuing coronary angiography, risks of coronary angiography discussed including acute renal failure resulting in dialysis, CAD, stroke. Patient agreed to proceed with coronary angiography Vitals/I&O/Wt Last Vital Signs Temp 97.9 F 06/27/21 16:30 Pulse 74 06/27/21 16:44 Resp 18 06/27/21 16:30 BP 149/56 06/27/21 16:30 Pulse Ox 100 06/27/21 16:44 06/27/21 06/27/21 06/27/21 06:59 14:59 22:59 Intake Total 512.333 / 2600.500 170 / 170 Balance 512.333 / 2375.500 170 / 170 Physical Exam Const: GENERAL APPEARANCE: cooperative ORIENTATION/CONSCIOUSNESS: Yes awak e, Yes oriented to person, Yes oriented to place and Yes oriented to time Resp: COMMON NORMALS: normal respiratory effort, No retractions and No use of accessory muscles AUSCULTATION: crackles Cardio: COMMON NORMALS: regular rate, regular rhythm, S1 normal heart sound present and S2 normal heart sound present RATE: regular rate RHYTHM: r egular rhythm HEART SOUNDS: S1 normal heart sound present and S2 normal heart sound present GI: COMMON NORMALS: Normal to inspection, nondistended, normoactive bowel sounds present, Soft to palpation, non-tender and No hepatosplenomegaly present PALPATION: Yes Soft to palpation and Yes No hepatosplenomegaly present Extremity: NARRATIVE EXTREMITY EXAM: 1+ pitting edema Neuro: SENSORIUM/ORIENTATION: Yes oriented to person, Yes oriented to place and Yes oriented to time Urinary Catheter Management^: Acevedo: Cath Placed During This Visit: yes Reason for Continuing Indwelling Catheter: Acute Urinary Retention or Obstruction Urinary Catheter Date of Insertion: 06/15/21 Urinary Catheter Time of Insertion: 18:22 Data : 06/27/21 14:39 06/27/21 16:18 A&P Assessment and plan (1) Acute on chronic congestive heart failure: Acute on chronic systolic CHF exacerbation plan: - S/P stress test: Abnormal myocardial perfusion imaging with large sized infarct with significant shaina-infarct ischemia noted in left circumflex artery and RCA territory. LV systolic function is severely reduced. -Cardiac 2D echo LV systolic function is severely reduced with EF of 20 to 25%. Right ventricle is hypokinetic. Left atrium is enlarged. Mitral and aortic valves are thickened. Mild mitral regurgitation. Mild pulmonic regurgitation. Trace tricuspid regurgitation. Compared to prior echocardiogram from 01/21/2021, LV systolic function has decreased further -Lasix was on hold given elevated creatinine, creatinine now 2.7, will dose Lasix 40 mg today, monitor urine output, monitor creatinine -Fluid restrictions less than 1200 cc -After discussing the risks and benefits of coronary angiography, patient accepted the risks, will proceed with coronary angiography tomorrow morning, n.p.o. midnight -Continue aspirin, Plavix, metoprolol, Coumadin Acute hypercarbic respiratory failure -Likely secondary to nonsustained V. tach, pulmonary edema -Receiving Lasix -Place BiPAP monitor ABG monitor mentation TIFFANY on CKD-Creatinine 2.7, urine output 5 or cc nephrology on consult, resume Lasix -initially as he has been on IV Lasix. 40 twice daily. -Lisinopril 2.5 mg p.o. daily has been discontinued given worsening serum crea tinine. -Spironolactone 12.5 mg p.o. daily -continue aspirin, Plavix, Coumadin, beta-efe -fluid restriction <1200cc NSTEMI, likely supply demand ischemia from CHF as above, but cannot rule out underlying CAD given history of CAD and cardiac echocardiogram findings as above -Continue Plavix, continue beta-efe, continue Coumadin, continue statin -Telemetry monitoring -Serial EKGs, serial troponins Atrial fibrillation, continue Coumadin Status: Acute (2) Atrial fibrillation with RVR: Atrial fibrillation: Currently rate is well controlled continue metoprolol 50 mg twice a day, pharmacy dose Coumadin, INR 1.68 Status: Acute (3) Atherosclerotic heart disease of [place] coronary artery with unstable angina pectoris: CAD, continue statin, Plavix Status: Chronic Qualifiers: [place] vs. transplanted heart: [place] heart Qualified Code(s): I25.110 - Atherosclerotic heart disease of [place] coronary artery with unstable angina pectoris (4) Dyslipidemia: Status: Chronic (5) CKD (chronic kidney disease): CKD, creatinine 2.4 continue to monitor Status: Acute (6) Diabetes: Insulin-dependent type 2 days mellitus, moderate dose sliding scale Status: Acute Qualifiers: Chronic kidney disease stage: stage 3 (moderate) Chronic kidney disease stage 3 subtype: stage 3b (GFR 30-44) Diabetes mellitus complication detail: with chronic kidney disease Diabetes mellitus complication status: with kidney complications Diabetes mellitus group home insulin use: with manager long term care use Diabetes mellitus type: type 2 Qualified Code(s): E11.22 - Type 2 diabetes mellitus with diabetic chronic kidney disease; N18.32 - Chronic kidney disease, stage 3b; Z79.4 - manager long term care (current) use of insulin (7) Acute hypercapnic respiratory failure: Status: Acute (8) NSTEMI (non-ST elevated myocardial infarction): Status: Acute (9) Nonsustained ventricular tachycardia: Status: Acute (10) Altered mental status: Status: Acute Additional A&P Information #Loose stool : complaining of 2/3 loose stool daily for the last 2 days , She has been on Abxs for some time. Resolved C.Diff PCR : Negative # Blood in stool: Likely 2/2 to hemorrhoids.H&H Stable.Will continue to monitor. DVT prophylaxis: On warfarin CODE STATUS: Full code Disposition: Patient will need alf placement, given significant weakness, and physical deconditioning and her current inability to take care of herself, as she is currently alone at home. Attestations Medical Necessity Statement*: Patient requires hospitalization for CHF exacerbation, acute hypercarbic respiratory failure, now with NSTEMI, pursuing angiography Coding Level of Care Code Acute Tissue Technologist for Sosa Bates Diagnoses Acute on chronic congestive heart failure I50.9 Atrial fibrillation with RVR I48.91 Atherosclerotic heart disease of [place] coronary artery with unstable angina pe ctoris I25.110 [place] vs. transplanted heart: [place] heart Dyslipidemia E78.5 CKD (chronic kidney disease) N18.9 Diabetes E11.22; N18.32; Z79.4 Chronic kidney disease stage: stage 3 (moderate) Chronic kidney disease stage 3 subtype: stage 3b (GFR 30-44) Diabetes mellitus complication detail: with chronic kidney disease Diabetes mellitus complication status: with kidney complications Diabetes mellitus group home insulin use: with manager long term care use Diabetes mellitus type: type 2 Acute hypercapnic respiratory failure J96.02 NSTEMI (non-ST elevated myocardial infarction) I21.4 Nonsustained ventricular tachycardia I47.2 Altered mental status R41.82
--- NOTE | 2021-06-27 18:26 | ECG_ITS ---
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 Measurements Intervals [place] Rate: 79 P: [place]: QRS: 122 QRSD: 125 T: 0 QT: 420 QTc: 484 Interpretive Statements ATRIAL FIBRILLATION RIGHT AXIS DEVIATION [QRS AXIS > 100] ANTEROSEPTAL MYOCARDIAL INFARCTION , OF INDETERMINATE AGE [40+ ms Q WAVE IN V1-V4] Compared to ECG 06/27/2021 15:00:55 No significant changes Electronically Signed On 06-27-2021 22:15:22 OVERHEAD GARAGE DOOR HANGER by Antonietta Jo M.D. [id number]
[2021-06-27 18:29] LABS: ABG PH Result 7.29 (7.35-7.45); Arterial Blood Gas Hematocrit 30.9 % (37-47); Base Excess ABG 2.1 mmol/L (-2.0-2.0); Blood Gas Sample Type Arterial; HCO3 ABG 29.6 mmol/L (22-26)
[2021-06-27 18:30] LABS: Blood Gas Operator Identificat ED; Blood Gas Sample Site Brachial, left; Oxygen Device BIPAP
[2021-06-27 18:32] LABS: ABG PCO2 61.4 mmHg (35-45)
[2021-06-27] MEDS: albumin 12.5 GM/50 ML VIAL IV (19:30)
--- NOTE | 2021-06-27 19:44 | P.CONIM_ITS ---
Providers/Reason For Consult Consulting Physician/Specialty*: Cardiology Reason for Consult*: Arrhythmia, presyncope, worsening of LV dysfunction, large burden of ischemia, non-ST ovation MA Attending Physician: Delgado Ramos MD Primary Care Provider: Pascual Kay MD History of Present Illness History of Present Illness Carole Lee is a 75 year old female past medical history significant for moderately depressed ejection fraction as per echocardiogram in November of this year, history of prior coronary artery disease, diabetes, chronic kidney disease with baseline creatinine around 2.0, chronic atrial fibrillation, dyslipidemia venous stasis history of prior MA, arrhythmia with nonsustained ventricular tachycardia presented with acute on chronic systolic decompensated heart failure exacerbation. She was diuresed effectively but it resulted in worsening of kidney disease. Diuresis were held and given IV fluid. It improved creatinine currently around 2.7. Recent echocardiogram noted worsening of ejection fraction from moderately reduced 40% to 20 to 25% now. Stress test was performed which showed large area of old myocardial infarction surrounded by significant shaina-infarct ischemia in the RCA and circumflex territory. Today patient was being discharged on optimal medical regimen when she was noted to have short runs of nonsustained VT and feeling of presyncope. It is the reason we have been asked to assist in her care. Troponin was noted around 106. Meds/Allergies Home Medications and Allergies Home Medications Medication Instructions Recorded Confirmed Last Taken Type levothyroxine 225 mcg PO DAILY@0500 09/08/19 06/13/21 06/13/21 History clopidogrel 75 mg PO DAILY@0800 11/29/20 06/13/21 06/13/21 History gabapentin 100 mg capsule 100 mg PO BID@799,1999 cap 12/05/20 06/13/21 06/13/21 History atorvastatin 80 mg PO BEDTIME@20 12/07/20 06/13/21 06/12/21 History calcitriol 0.25 mcg PO DAILY@0800 01/16/21 06/13/21 06/13/21 History Enema Disposable 118 ml [place] DAILY PRN 02/28/21 06/13/21 Unknown History citalopram 10 mg PO DAILY@0800 02/28/21 06/13/21 06/13/21 History docusate sodium 100 mg PO BEDTIME 02/28/21 06/13/21 06/12/21 History Novolog Flexpen U-100 Insulin See Rx Instructions .ROUTE .COMPLEX 06/13/21 06/13/21 Unknown History Senna-S 1 tab PO QAM 06/13/21 06/13/21 06/13/21 History bumetanide 2 mg PO QAM 06/13/21 06/13/21 06/13/21 History folic acid 2 cap PO BEDTIME 06/13/21 06/13/21 Unknown History meclizine 12.5 mg PO QAM 06/13/21 06/13/21 06/13/21 History metoprolol tartrate 25 mg PO BID 06/13/21 06/13/21 06/13/21 09:00 History mupirocin 1 applic TOPICAL BID PRN 06/13/21 06/13/21 Unknown History pantoprazole 40 mg PO QAM 06/13/21 06/13/21 06/13/21 History phenytoin sodium extended 200 mg PO BID 06/13/21 06/13/21 06/13/21 09:00 History potassium chloride 10 meq PO QAM 06/13/21 06/13/21 06/13/21 History Levemir FlexTouch U-100 Insuln 5 unit SUBCUT BEDTIME #0 ml 06/27/21 06/13/21 Unknown Rx aspirin 81 mg PO DAILY 30 Days #30 tab 06/27/21 Unknown Rx potassium chloride [Klor-Con 10] 20 meq PO DAILY 30 Days #60 tab 06/27/21 Unknown Rx spironolactone 12.5 mg PO DAILY 30 Days #30 tab 06/27/21 Unknown Rx warfarin [Jantoven] 1.5 mg PO DAILY@1400 30 Days #30 06/27/21 Unknown Rx tab Allergies Allergy/AdvReac Type Severity Reaction Status Date / Time gentamicin Allergy Unknown Verified 06/13/21 13:31 hydromorphone [From Dilaudid] Allergy Unknown Verified 06/13/21 13:31 Current Medications Current Medications Generic Name Dose Route Start Last Admin Trade Name Freq PRN Reason Stop Dose Admin Aspirin 81 mg 06/15/21 10:30 06/27/21 07:57 Aspirin 81 Mg Ec Tablet PO 81 mg DAILY ARMINDA Administration Atorvastatin Calcium 80 mg 06/14/21 20:00 06/26/21 20:57 Atorvastatin 40 Mg Tablet PO 80 mg BEDTIME@20 ARMINDA Administration Calcitriol 0.25 mcg 06/14/21 08:00 06/27/21 07:57 Calcitriol 0.25 Mcg Capsule PO 0.25 mcg DAILY@0800 ARMINDA Administration Citalopram Hydrobromide 10 mg 06/14/21 08:00 06/27/21 07:58 Citalopram 20 Mg Tablet PO 10 mg DAILY@0800 ARMINDA Administration Clopidogrel Bisulfate 75 mg 06/14/21 08:00 06/27/21 07:58 Clopidogrel 75 Mg Tablet PO 75 mg DAILY@0800 ARMINDA Administration Docusate Sodium 100 mg 06/13/21 21:12 06/26/21 20:57 Docusate Sodium 100 Mg Capsule PO 100 mg BEDTIME ARMINDA Administration Gabapentin 100 mg 06/13/21 21:12 06/27/21 07:57 Gabapentin 100 Mg Capsule PO 100 mg BID@0800,2000 ARMINDA Administration Insulin Human Lispro 0 unit 06/13/21 21:12 06/27/21 19:42 Insulin Lispro 100 Unit/1 Ml SUBCUT Not Given WM&BEDTIME [facility] Protocol Levothyroxine Sodium 200 mcg 06/14/21 05:00 06/27/21 06:31 Levothyroxine 200 Mcg Tablet PO 200 mcg DAILY@0500 ARMINDA Administration Levothyroxine Sodium 25 mcg 06/14/21 05:00 06/27/21 06:30 Levothyroxine 25 Mcg Tablet PO 25 mcg DAILY@0500 ARMINDA Administration Metoprolol Tartrate 25 mg 06/26/21 21:00 06/27/21 07:58 Metoprolol Tartrate 25 Mg Tablet PO 25 mg BID@0900,2100 ARMINDA Administration Ondansetron HCl 4 mg 06/13/21 21:12 06/27/21 12:24 Ondansetron 2 Mg/Ml Sdv 2 Ml IVP 4 mg Q8H PRN Administration vomiting, or N/V if npo Pantoprazole Sodium 40 mg 06/14/21 06:00 06/27/21 06:[address] 40 Mg Tablet PO 40 mg QAM ARMINDA Administration Phenytoin 200 mg 06/14/21 09:00 06/27/21 07:57 Phenytoin Er 100 Mg Capsule PO 200 mg BID ARMINDA Administration Potassium Chloride 10 meq 06/14/21 06:00 06/27/21 06:30 Potassium Chloride Er 10 Meq Tablet PO 10 meq QAM ARMINDA Administration Senna/Docusate Sodium 1 tab 06/14/21 06:00 06/27/21 06:30 Sennosides-Docusate Tablet PO 1 tab QAM ARMINDA Administration Spironolactone 12.5 mg 06/21/21 09:45 06/27/21 07:58 Spironolactone 25 Mg Tablet PO 12.5 mg DAILY ARMINDA Administration Warfarin Sodium 1.5 mg 06/16/21 14:00 06/26/21 15:17 Warfarin 3 Mg Tablet PO 1.5 mg DAILY@1400 ARMINDA Administration PFSH Acute PFSH: Medical History Afib Anemia Atrial fibrillation with RVR CAD (coronary artery disease) Chronic anticoagulation Eliquis CKD (chronic kidney disease) Congestive heart failure Diabetes Dyslipidemia Hematoma of left flank HTN (hypertension) Morbid obesity Morbid obesity PVD (peripheral vascular disease) 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) Status post insertion of drug-eluting stent into left anterior descending (LAD) artery Urine retention Venous stasis Surgical History History of ankle surgery History of cataract surgery History of cholecystectomy History of heart artery stent History of umbilical hernia repair S/P hemodialysis catheter insertion (11/22/20) Right internal jugular vein d/c 12/25/20 Family History Other Cancer Diabetes Social History Smoking and tobacco status: never smoked Alcohol intake: never Marital status: / Current occupational status: retired History of recent travel: No Vitals/I&O/Wt Last Vital Signs Temp 97.9 F 06/27/21 16:30 Pulse 72 06/27/21 18:35 Resp 18 06/27/21 16:30 BP 149/56 06/27/21 16:30 Pulse Ox 100 06/27/21 18:35 06/27/21 06/27/21 06/27/21 06:59 14:59 22:59 Intake Total 512.333 / 2600.500 170 / 170 Balance 512.333 / 2375.500 170 / 170 Physical Exam Narrative: EXAM NARRATIVE: GENERAL: Patient is alert, awake and oriented x3. NECK: No jugular vein distension. HEENT: No cyanosis. No icterus. No pallor. HEART: Regular S1 and S2. No murmur, rub or gallop. LUNGS: Clear to auscultate bilaterally. ABDOMEN: Soft, nontender and nondistended. Positive bowel sounds. No guarding, rebound or tenderness. CENTRAL NERVOUS SYSTEM: Grossly nonfocal. EXTREMITIES: Lower extremities without edema bilaterally. Urinary Catheter Management^: Acevedo: Cath Placed During This Visit: yes Reason for Continuing Indwelling Catheter: Acute Urinary Retention or Obstruction Urinary Catheter Date of Insertion: 06/15/21 Urinary Catheter Time of Insertion: 18:22 A&P Assessment and plan (1) NSTEMI (non-ST elevated myocardial infarction): Worsening of LV dysfunction to severely depressed 25% with nonsustained VT and large area of infarct with significant ischemia may at some point require further exploration of the left heart cath however patient is high risk for contrast-induced nephropathy leading to temporary or permanent dialysis and bleeding diathesis, patient is high risk for bleeding as well being on anticoagulation for atrial fibrillation. I have discussion with the patient she would like to Proceed with it. At this point her INR is 2.5 would like to further tune her up before proceeding with left heart cath. I will hold INR for now we will cover her with Lovenox. We will continue aspirin statin Plavix. Status: Acute (2) Nonsustained ventricular tachycardia: Most likely due to ischemic VT as well defined above will optimize medicine but at some point need left heart cath once accepted the risk Status: Acute (3) Acute on chronic congestive heart failure: Well compensated continue to monitor Status: Acute Qualifiers: Heart failure type: systolic Qualified Code(s): I50.23 - Acute on chronic systolic (congestive) heart failure (4) Atrial fibrillation with RVR: Rate controlled on anticoagulation I will hold warfarin for possible cath over next couple of days once INR is below 1.7 Status: Acute Consult Attestations Medical Necessity Statement: Patient require continuation hospitalization for evaluation and care. Coding Level of Care Code New Pt Acute Dispatch Officer for Sosa Bates Patient Type New History Comprehensive Exam Comprehensive Medical Decision Making High Complexity Diagnoses NSTEMI (non-ST elevated myocardial infarction) I21.4 Nonsustained ventricular tachycardia I47.2 Acute on chronic congestive heart failure I50.23 Heart failure type: systolic Atrial fibrillation with RVR I48.91
[2021-06-27] MEDS: piperacillin-tazobactam 3.375 GM in sodium chloride 0.9% (plus) 50 ML IV (19:50)
[2021-06-27 20:43] LABS: Troponin 5 2HR 99.32 ng/L (0-10)
[2021-06-27 20:44] LABS: Troponin 5 2HR Delta -9.68 ABS# (0-10)
[2021-06-27] MEDS: FUROsemide 10 mg/mL SDV 4mL 40 MG IVP (20:53)
[2021-06-27 23:03] LABS: Glucose Point of Care 94 mg/dL (70-110)
[2021-06-27 23:52] LABS: Troponin 5 6HR 101.9 ng/L (0-10); Troponin 5 6HR Delta -7.1 ng/L (0-12)
[2021-06-28] VITALS (100 sets, daily range): BP systolic 92–130; BP diastolic 44–89; PULSE 57–131; RESP 5–25; TEMP 36.3–36.9; O2SAT 86–100
[2021-06-28] MEDS: piperacillin-tazobactam 3.375 GM in sodium chloride 0.9% (plus) 50 ML IV ×3 (01:15→15:53)
[2021-06-28 03:40] LABS: ABG PH Result 7.37 (7.35-7.45); Arterial Blood Gas Hematocrit 29.9 % (37-47); Base Excess ABG 3.1 mmol/L (-2.0-2.0); Blood Gas Allen Test Pos; Blood Gas Sample Site Brachial, right; Blood Gas Sample Type Arterial; HCO3 ABG 29.2 mmol/L (22-26); Oxygen Device BIPAP; PO2 ABG 98.2 mmHg (80.0-100.0)
[2021-06-28 04:55] LABS: Basophils # 0.1 10^3/uL (0.0-0.1); Basophils % 1.1 %; Eosinophils # 0.3 10^3/uL (0.0-0.8); Hematocrit 31.6 % (37.0-47.0); Hemoglobin 9.2 g/dL (11.5-15.3); Lymphocytes # 1.9 10^3/uL (0.8-4.8); Lymphocytes % 33.3 %; Mean Corpuscular HGB Conc 29.1 g/dL (30.0-36.0); Mean Corpuscular Hemoglobin 29.3 pg (28.0-34.0); Mean Corpuscular Volume 100.6 fl (81-99); Mean Platelet Volume 11.9 fL (7.4-10.4); Monocytes # 0.7 10^3/uL (0.2-0.9); Neutrophils # 2.66 10^3/uL (1.8-7.7); Neutrophils % 47.2 %; Nucleated Red Blood Cells % 0 %; Platelet Count 154 10^3/cmm (130-400); Red Blood Count 3.14 10^6/uL (4.1-5.3); Red Cell Distribution Width 16.4 % (12.1-15.1); White Blood Count 5.6 10^3/uL (4.0-10.0)
[2021-06-28 05:22] LABS: NT Pro B Type Natriuretic Pept 27405 pg/mL (0-450); Procalcitonin 0.08 ng/mL (0-0.5)
[2021-06-28] MEDS: levothyroxine 200 mcg Tablet PO (05:28)
[2021-06-28] MEDS: pantoprazole DR 40 mg Tablet PO (05:28)
[2021-06-28] MEDS: potassium chloride ER 10 mEq Tablet PO (05:28)
[2021-06-28] MEDS: levothyroxine 25 mcg Tablet PO (05:28)
[2021-06-28] MEDS: sennosides-docusate Tablet 1 TAB PO (05:29)
[2021-06-28 05:33] LABS: Creatine Phosphokinase 143 U/L (26-192)
[2021-06-28 05:57] LABS: Alanine Aminotransferase 9 U/L (0-33); Albumin Level 2.4 g/dL (3.5-5.2); Alkaline Phosphatase 170 IU/L (35-105); Aspartate Amino Transferase 30 U/L (0-32); Blood Urea Nitrogen 38 mg/dL (8-23); Calcium 7.4 mg/dL (8.5-10.5); Carbon Dioxide 21 mmol/L (22-29); Chloride 103 mmol/L (98-107); Globulin 2.9 g/dL (1.3-4.6); Glucose 81 mg/dL (65-115); Osmolality Calculated 298 mOsm/kg (285-295); Sodium 140 mmol/L (136-145); Total Bilirubin 0.3 mg/dL (0.15-1.2); Total Protein 5.3 g/dL (6.6-8.7)
[2021-06-28 05:58] LABS: C Reactive Protein 38.1 mg/L (0.0-4.9); Phosphorus 3.5 mg/dL (2.5-4.5)
--- NOTE | 2021-06-28 06:00 | ECG_ITS ---
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
[2021-06-28 06:07] LABS: Anion Gap 20.6 (5-19); Potassium 4.6 mmol/L (3.5-5.1)
[2021-06-28 06:45] LABS: Glucose Point of Care 87 mg/dL (70-110)
--- NOTE | 2021-06-28 07:00 | XRR_ITS ---
PROCEDURE INFORMATION: Exam: XR Chest Exam date and time: 06/28/2021 7:00 AM Age: 75 years old Clinical indication: Shortness of breath; Additional info: SOB TECHNIQUE: Imaging protocol: XR of the chest. Views: 1 view. Total images: 1 COMPARISON: CR XR chest 1V portable [id number] 06/27/2021 3:15 PM FINDINGS: Lungs: Pulmonary vascular congestion improved. Improved bilateral pleuroparenchymal disease. Pleural spaces: No pneumothorax. Heart/Mediastinum: Cardiomegaly. Vasculature: Atherosclerosis is evident. Bones/joints: Osseous structures are unchanged from the prior exam. XR/XR chest 1V portable [id number] IMPRESSION: 1. Cardiomegaly with improved pulmonary vascular congestion. 2. Improved bilateral pleuroparenchymal disease.
[2021-06-28 08:46] LABS: Glucose Point of Care 86 mg/dL (70-110)
[2021-06-28] MEDS: aspirin 81 mg EC Tablet PO (09:29)
[2021-06-28] MEDS: clopidogrel 75 mg Tablet PO (09:30)
[2021-06-28 09:42] LABS: INR 2.23 (0.8-1.2)
--- NOTE | 2021-06-28 10:21 | PC.NURSE ---
nurse prepped patient for angiogram. Marked lower extremity pulses. shaved right wrist and groin. Hibicleanse done
--- NOTE | 2021-06-28 10:22 | PC.NURSE ---
Patient is reporting bladder discomfort. hasn't urinated since yesterday afternoon. Bladder scan shows 375 retaining. received and order for [place] catheter
--- NOTE | 2021-06-28 11:17 | PC.SOCIAL ---
Pg 2 IMM. Explained to pt Pg 2 IMM. No questions voiced. Provided pt a copy. Initialed, dated, & timed a copy & placed in chart.
--- NOTE | 2021-06-28 13:06 | PM.PN ---
Subjective Subjective: Interval history: Patient was seen this morning, she is alert oriented x3, follows all commands, she tells me that she did not have much sleep overnight, it was difficult to sleep with the BiPAP on, I discussed with her again the plans for proceeding with coronary angiogram, the risks and benefits, the significant risk including but not limited to heart attack, stroke, and risk of dialysis. Given her creatinine and her decreasing urine output she does have a significant risk of dialysis. Patient is agreeable to proceed with coronary angiography, she tells me that she was put on dialysis in the past, in her kidney function improved and she was taken off dialysis Vitals/I&O/Wt Last Vital Signs Temp 97.4 F L 06/28/21 08:10 Pulse 100 06/28/21 10:55 Resp 20 H 06/28/21 08:10 BP 99/44 06/28/21 10:55 Pulse Ox 100 06/28/21 10:55 06/27/21 06/28/21 06/28/21 22:59 06:59 14:59 Intake Total 120 / 290 50 / 340 50 / 50 Output Total 300 / 300 350 / 350 Balance -180 / -10 50 / 40 -300 / -300 Physical Exam Const: COMMON NORMALS: no acute distress and patient oriented x3 Resp: COMMON NORMALS: normal respiratory effort, No retractions and No use of accessory muscles AUSCULTATION: crackles Cardio: COMMON NORMALS: regular rate, regular rhythm, S1 normal heart sound present and S2 normal heart sound present RATE: regular rate RHYTHM: regular rhythm HEART SOUNDS: S1 normal heart sound present and S2 normal heart sound present GI: COMMON NORMALS: Normal to inspection, nondistended, normoactive bowel sounds present and Soft to palpation PALPATION: Yes Soft to palpation Extremity: COMMON NORMALS: no pedal edema Neuro: COMMON NORMALS: patient oriented x3 Psych: COMMON NORMALS: mental status grossly normal Urinary Catheter Management^: Acevedo: Cath Placed During This Visit: yes, but has since been removed by the nurse Reason for Continuing Indwelling Catheter: Acute Urinary Retention or Obstruction Urinary Catheter Date of Insertion: 06/28/21 Urinary Catheter Time of Insertion: 11:06 Date Urinary Catheter Removed: 06/27/21 Time Urinary Catheter Discontinued: 15:00 Data : 06/28/21 04:43 06/28/21 04:43 A&P Assessment and plan (1) Acute on chronic congestive heart failure: Acute on chronic systolic CHF exacerbation plan: - S/P stress test: Abnormal myocardial perfusion imaging with large sized infarct with significant shaina-infarct ischemia noted in left circumflex artery and RCA territory. LV systolic function is severely reduced. -Cardiac 2D echo LV systolic function is severely reduced with EF of 20 to 25%. Right ventricle is hypokinetic. Left atrium is enlarged. Mitral and aortic valves are thickened. Mild mitral regurgitation. Mild pulmonic regurgitation. Trace tricuspid regurgitation. Compared to prior echocardiogram from 01/21/2021, LV systolic function has decreased further -Creatinine 2.8, hold Lasix?there are plans on coronary angiography -Fluid restrictions less than 1200 cc -After discussing the risks and benefits of coronary angiography, patient accepted the risks, will proceed with coronary angiography -Continue aspirin, Plavix, metoprolol, -Coumadin on hold Acute hypercarbic respiratory failure -Likely secondary to nonsustained V. tach, pulmonary edema -Receiving Lasix -Place BiPAP monitor ABG monitor mentation TIFFANY on CKD-Creatinine 2.8, urine output 250 cc, nephrology on consult, resume Lasix -initially as he has been on IV Lasix. 40 twice daily. -Lisinopril 2.5 mg p.o. daily has been discontinued given worsening serum creatinine. -Spironolactone 12.5 mg p.o. daily -continue aspirin, Plavix, Coumadin, beta-efe -fluid restriction <1200cc Nonsustained V. tach -Resulting in acute respiratory failure, altered mental status -Acute respiratory failure, improving on BiPAP, PCO2 has improved, can transition back to nasal cannula -Altered mental status, resolved, back to baseline -Etiology concerning for underlying cardiac etiology given positive stress test, and echocardiogram findings, proceeding with coronary angiography -Continue telemetry monitoring NSTEMI, concerning for underlying cardiac etiology -Baseline troponin I109, 6-hour 101.9, delta -7.1, BNP 51478 -Continue Plavix, continue beta-efe, continue Coumadin, continue statin -Telemetry monitoring -Serial EKGs, serial troponins Atrial fibrillation, Coumadin on hold Confirmed with patient that she remains a full code Status: Acute Qualifiers: Heart failure type: systolic Qualified Code(s): I50.23 - Acute on chronic systolic (congestive) heart failure (2) Atrial fibrillation with RVR: Atrial fibrillation: Currently rate is well controlled continue metoprolol 50 mg twice a day, pharmacy dose Coumadin, INR 1.68 Status: Acute (3) Atherosclerotic heart disease of [place] coronary artery with unstable angina pectoris: CAD, continue statin, Plavix Status: Chronic Qualifiers: [place] vs. transplanted heart: [place] heart Qualified Code(s): I25.110 - Atherosclerotic heart disease of [place] coronary artery with unstable angina pectoris (4) Dyslipidemia: Status: Chronic (5) CKD (chronic kidney disease): CKD, creatinine 2.4 continue to monitor Status: Acute (6) Diabetes: Insulin-dependent type 2 days mellitus, moderate dose sliding scale Status: Acute Qualifiers: Chronic kidney disease stage: stage 3 (moderate) Chronic kidney disease stage 3 subtype: stage 3b (GFR 30-44) Diabetes mellitus complication detail: with chronic kidney disease Diabetes mellitus complication status: with kidney complications Diabetes mellitus retirement insulin use: with supervisor intermediates use Diabetes mellitus type: type 2 Qualified Code(s): E11.22 - Type 2 diabetes mellitus with diabetic chronic kidney disease; N18.32 - Chronic kidney disease, stage 3b; Z79.4 - prison (current) use of insulin (7) Acute hypercapnic respiratory failure: Status: Acute (8) NSTEMI (non-ST elevated myocardial infarction): Status: Acute (9) Nonsustained ventricular tachycardia: Status: Acute (10) Altered mental status: Status: Acute Additional A&P Information #Loose stool : complaining of 2/3 loose stool daily for the last 2 days , She has been on Abxs for some time. Resolved C.Diff PCR : Negative # Blood in stool: Likely 2/2 to hemorrhoids.H&H Stable.Will continue to monitor. DVT prophylaxis: On warfarin CODE STATUS: Full code Disposition: Patient has been assigned to the halfway, will have to repeat prior authorization Attestations Medical Necessity Statement*: Patient requires hospitalization for nonsustained V. tach, acute respiratory failure, acute on chronic CHF, NSTEMI Coding Level of Care Code Acute Research And Development Chemist for S[employer] Bates Diagnoses Acute on chronic congestive heart failure I50.23 Heart failure type: systolic Atrial fibrillation with RVR I48.91 Atherosclerotic heart disease of [place] coronary artery with unstable angina pectoris I25.110 [place] vs. transplanted heart: [place] heart Dyslipidemia E78.5 CKD (chronic kidney disease) N18.9 Diabetes E11.22; N18.32; Z79.4 Chronic kidney disease stage: stage 3 (moderate) Chronic kidney disease stage 3 subtype: stage 3b (GFR 30-44) Diabetes mellitus complication detail: with chronic kidney disease Diabetes mellitus complication status: with kidney complications Diabetes mellitus retirement insulin use: with retirement use Diabetes mellitus type: type 2 Acute hypercapnic respiratory failure J96.02 NSTEMI (non-ST elevated myocardial infarction) I21.4 Nonsustained ventricular tachycardia I47.2 Altered mental status R41.82
[2021-06-28 13:34] LABS: Glucose Point of Care 97 mg/dL (70-110)
--- NOTE | 2021-06-28 14:00 | PC.NURSE ---
Patient's son, ernestina, has been updated on patient's condition.... currently awaiting angiogram. resting comfortably in room.
--- NOTE | 2021-06-28 15:20 | P.PN_ITS ---
Subjective Subjective: Interval history: Ms. Lee remains weak, some dyspnea on exertion, she remains on high flow oxygen at this time on my evaluation. She still has significant lower extremity edema. I do appreciate cardiology input with plans for potential angiography tomorrow. Blood pressure remained stable 112/60. Chest x-ray is notable for improvement in pulmonary vascular congestion. Medications: Reviewed: Yes Vitals/I&O/Wt Last Vital Signs Temp 98.4 F 06/28/21 11:55 Pulse 90 06/28/21 14:00 Resp 20 H 06/28/21 08:10 BP 112/60 06/28/21 13:50 Pulse Ox 100 06/28/21 13:50 06/28/21 06/28/21 06/28/21 06:59 14:59 22:59 Intake Total 50 / 340 50 / 50 Output Total 350 / 350 Balance 50 / 40 -300 / -300 Physical Exam Narrative: EXAM NARRATIVE: Constitutional: Awake, comfortable HEENT: Wet mucosa, no jvp, non icteric Lungs: Bilaterally clear without discernible wheeze, rales in all lung zones CVS: S1 S2, no murmurs Abdo: Soft, BS ok Ext 4: 2-3+ edema, peripheral perfusion with no cyanosis Neurological: Grossly non-focal Urinary Catheter Management^: Acevedo: Cath Placed During This Visit: yes, but has since been removed by the nurse Reason for Continuing Indwelling Catheter: Acute Urinary Retention or Obstruction Urinary Catheter Date of Insertion: 06/28/21 Urinary Catheter Time of Insertion: 11:06 Date Urinary Catheter Removed: 06/27/21 Time Urinary Catheter Discontinued: 15:00 Data : 06/28/21 04:43 06/28/21 04:43 A&P Additional A&P Information 1. Acute on chronic kidney disease. Creatinine 1.9 at baseline. This trended up to 3.1, and has remained at this range. This is consistent with intravascular from depletion from diuretic therapy in the setting of effective diuresis for symptomatic heart failure. She still has some lower extremity edema but otherwise looks clinically euvolemic. Her physiology will almost certainly cause her to progressively accumulate salt to water i.e. she is in a chronic sodium avid state. Would avoid ivf With this in mind she will almost certainly need to resume her Bumex in the next day or so to maintain clinical euvolemia; defer today given need for angiographic dye tomorrow Continue spironolactone and potassium supplements. Avoid usual nephrotoxic agents. 2. Chemistry Today's chemistry is currently pending, she is on potassium replacement therapy. Anion gap metabolic acidosis noted, likely secondary to kidney dysfunction. Defer alkalinization for now to avoid the additional sodium. 3. CHF Need for coronary intervention noted. Of note this is a high risk procedure in regard to her risk of contrast injury to the kidneys. I explained this risk to her. She understands going forward. Of note there is no evidence that dialyzing off contrast dye helps to protect the kidney from kidney injury and so this is not recommended. 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
--- NOTE | 2021-06-28 15:30 | PC.OT ---
OT tx attempted at 0930. Pt c/o bladder pain and nursing locating bladder scanner to check pt. OT to be attempted again later today if possible.
--- NOTE | 2021-06-28 15:43 | PC.NURSE ---
Dr. Ramos updated that the angiogram is postponed till tomorrow. Order to do PT and INR tomorrow. Patient's son, Jimi has been updated that the angiogram is postponed to tomorrow. Patient updated that the NPO will resume at midnight. Food offered, patient refused. Dr. Sánchez rounded with patient. Discussed patient labs and the postponed angiogram.
--- NOTE | 2021-06-28 15:49 | PC.OT ---
OT treatment session attempted at 15:45. Patient supine in bed upon therapist arrival. When asked to do participate in treatment session patient denied. When asked to complete simple bed position hygiene, patient denied saying she was not going to complete.
[2021-06-28 17:20] LABS: Glucose Point of Care 102 mg/dL (70-110)
--- NOTE | 2021-06-28 18:23 | PC.NURSE ---
Shift Note Frequent safety and comfort rounds continue. Orders and/or nursing care completed as indicated. Patient monitored for response to intervention and treatment(s). Education provided includes medication, upcoming procedures, and care plan. Patient verbalized understanding. Patient watching TV. Patient does not report of pain.
--- NOTE | 2021-06-28 18:51 | PM.PN ---
Subjective Subjective: Interval history: Patient says she is still short of breath, angiography was postponed due to high INR. She denies chest pain. Again will discuss in detail regarding contrast-induced nephropathy and heart failure complication with contrast. Patient would like to proceed with it as she think this is not her life and she cannot do much. Medications: Reviewed: Yes Vitals/I&O/Wt Last Vital Signs Temp 97.5 F L 06/28/21 18:32 Pulse 93 06/28/21 18:32 Resp 22 H 06/28/21 18:32 BP 96/68 06/28/21 18:32 Pulse Ox 97 06/28/21 18:32 06/28/21 06/28/21 06/28/21 06:59 14:59 22:59 Intake Total 50 / 340 100 / 100 375 / 475 Output Total 350 / 350 150 / 500 Balance 50 / 40 -250 / -250 225 / -25 Physical Exam Narrative: EXAM NARRATIVE: GENERAL: Patient is alert, awake and oriented x3. Laying in the bed NECK: No jugular vein distension. HEENT: No cyanosis. No icterus. No pallor. HEART: Regular S1 and S2. No murmur, rub or gallop. LUNGS: Inspiratory crackles bilaterally. ABDOMEN: Soft, nontender and nondistended. Positive bowel sounds. No guarding, rebound or tenderness. CENTRAL NERVOUS SYSTEM: Grossly nonfocal. EXTREMITIES: Lower extremities with 1+ edema bilaterally. Urinary Catheter Management^: Acevedo: Cath Placed During This Visit: yes, but has since been removed by the nurse Reason for Continuing Indwelling Catheter: Acute Urinary Retention or Obstruction Urinary Catheter Date of Insertion: 06/28/21 Urinary Catheter Time of Insertion: 11:06 Date Urinary Catheter Removed: 06/27/21 Time Urinary Catheter Discontinued: 15:00 Data : 06/28/21 04:43 06/28/21 04:43 A&P Assessment and plan (1) NSTEMI (non-ST elevated myocardial infarction): Worsening of LV dysfunction to severely depressed 25% with nonsustained VT and large area of infarct with significant ischemia may at some point require further exploration of the left heart cath however patient is high risk for contrast-induced nephropathy leading to temporary or permanent dialysis and bleeding diathesis, patient is high risk for bleeding as well being on anticoagulation for atrial fibrillation. I have discussion with the patient she would like to Proceed with it. At this point her INR is 2.5 would like to further tune her up before proceeding with left heart cath. I will hold INR for now we will cover her with Lovenox. We will continue aspirin statin Plavix. I will further tomorrow may will diurese her little bit more we will continue to hold warfarin will check INR until unless it is below 1.7 we will not proceed with left heart cath. Patient has been explained again all risk benefit and already for the procedure she would like to proceed with it Status: Acute (2) Nonsustained ventricular tachycardia: Appear to be stable doing, most likely ischemia oriented continue to optimize medicine with possible attempt to revascularize Status: Acute (3) Acute on chronic congestive heart failure: I will diurese bit more Status: Acute Qualifiers: Heart failure type: systolic Qualified Code(s): I50.23 - Acute on chronic systolic (congestive) heart failure (4) Atrial fibrillation with RVR: Rate continue to hold anticoagulation check INR in the morning Status: Acute Attestations Medical Necessity Statement*: Patient require continuation of hospitilization for abover defined care Coding Level of Care Code Established Pt Acute Solution Professional for Chg Fwd Patient Type Established History Detailed Exam Detailed Medical Decision Making Moderate Complexity Diagnoses NSTEMI (non-ST elevated myocardial infarction) I21.4 Nonsustained ventricular tachycardia I47.2 Acute on chronic congestive heart failure I50.23 Heart failure type: systolic Atrial fibrillation with RVR I48.91
[2021-06-28] MEDS: gabapentin 100 mg Capsule PO (19:59)
[2021-06-28] MEDS: atorvastatin 40 mg Tablet 80 MG PO (19:59)
[2021-06-28] MEDS: metoprolol tartrate 25 mg Tablet PO (19:59)
[2021-06-28] MEDS: phenytoin ER 100 mg Capsule 200 MG PO (19:59)
[2021-06-28] MEDS: docusate sodium 100 mg Capsule PO (19:59)
[2021-06-28 20:30] LABS: Glucose Point of Care 137 mg/dL (70-110)
[2021-06-29] VITALS (13 sets, daily range): BP systolic 94–121; BP diastolic 54–77; PULSE 74–110; RESP 13–31; TEMP 36.3–36.6; O2SAT 90–100
[2021-06-29] MEDS: piperacillin-tazobactam 3.375 GM in sodium chloride 0.9% (plus) 50 ML IV ×3 (00:15→16:08)
--- NOTE | 2021-06-29 01:50 | PC.NURSE ---
Patient refusing Bipap. Patient states I don't get no sleep with it. Patient educated on important of Bipap. Patient states, Oh, I'll be okay, I don't need that thing. Oxygen saturation currently 97 percent. Will continue to monitor.
--- NOTE | 2021-06-29 03:19 | PC.NURSE ---
Patient asked to try Bipap again. Patient currently on Bipap. Will continue to monitor.
[2021-06-29 03:38] LABS: Basophils # 0.1 10^3/uL (0.0-0.1); Eosinophils # 0.2 10^3/uL (0.0-0.8); Eosinophils % 3.9 %; Hematocrit 33.2 % (37.0-47.0); Lymphocytes # 1.4 10^3/uL (0.8-4.8); Lymphocytes % 23.9 %; Mean Corpuscular HGB Conc 30.1 g/dL (30.0-36.0); Mean Corpuscular Hemoglobin 30.2 pg (28.0-34.0); Mean Corpuscular Volume 100.3 fl (81-99); Mean Platelet Volume 12.1 fL (7.4-10.4); Monocytes # 0.7 10^3/uL (0.2-0.9); Neutrophils # 3.53 10^3/uL (1.8-7.7); Neutrophils % 59.9 %; Nucleated Red Blood Cells % 0 %; Platelet Count 188 10^3/cmm (130-400); Red Blood Count 3.31 10^6/uL (4.1-5.3); Red Cell Distribution Width 16.4 % (12.1-15.1); White Blood Count 5.9 10^3/uL (4.0-10.0)
[2021-06-29 03:54] LABS: INR 2.33 (0.8-1.2)
[2021-06-29 04:02] LABS: Alanine Aminotransferase 10 U/L (0-33); Albumin Level 2.7 g/dL (3.5-5.2); Alkaline Phosphatase 193 IU/L (35-105); Anion Gap 16.8 (5-19); Aspartate Amino Transferase 37 U/L (0-32); Blood Urea Nitrogen 39 mg/dL (8-23); C Reactive Protein 39.2 mg/L (0.0-4.9); Calcium 7.7 mg/dL (8.5-10.5); Carbon Dioxide 24 mmol/L (22-29); Chloride 101 mmol/L (98-107); Globulin 3.1 g/dL (1.3-4.6); Glucose 104 mg/dL (65-115); Magnesium 2.1 mg/dL (1.7-2.3); Osmolality Calculated 294 mOsm/kg (285-295); Phosphorus 3.5 mg/dL (2.5-4.5); Potassium 4.8 mmol/L (3.5-5.1); Sodium 137 mmol/L (136-145); Total Bilirubin 0.3 mg/dL (0.15-1.2); Total Protein 5.8 g/dL (6.6-8.7)
[2021-06-29 04:13] LABS: NT Pro B Type Natriuretic Pept 24841 pg/mL (0-450); Procalcitonin 0.07 ng/mL (0-0.5)
[2021-06-29 04:24] LABS: Blood Urea Nitrogen 39 mg/dL (8-23); Calcium 7.3 mg/dL (8.5-10.5); Carbon Dioxide 23 mmol/L (22-29); Chloride 100 mmol/L (98-107); Creatine Phosphokinase 120 U/L (26-192); Glucose 108 mg/dL (65-115); Osmolality Calculated 290 mOsm/kg (285-295); Sodium 135 mmol/L (136-145)
[2021-06-29] MEDS: levothyroxine 200 mcg Tablet PO (05:32)
[2021-06-29] MEDS: pantoprazole DR 40 mg Tablet PO (05:32)
[2021-06-29] MEDS: potassium chloride ER 10 mEq Tablet PO (05:32)
[2021-06-29] MEDS: sennosides-docusate Tablet 1 TAB PO (05:32)
[2021-06-29] MEDS: levothyroxine 25 mcg Tablet PO (05:32)
--- NOTE | 2021-06-29 06:00 | ECG_ITS ---
[facility] Test Date: 2021-06-29 Pat Name: Carole Lee Department: Room: 111 Gender: Female Sharepoint Solutions Architect: : [id number] Requested By: Delgado Ramos Order Number: [id number] Danielle MD: Rupinder Melchor M.D. Measurements Intervals Arjay Rate: 106 P: FL: QRS: 128 QRSD: 122 T: 0 QT: 364 QTc: 483 Interpretive Statements ATRIAL FIBRILLATION WITH RAPID VENTRICULAR RESPONSE WITH ABERRANT CONDUCTION OR VENTRICULAR PREMATURE COMPLEXES RIGHT AXIS DEVIATION [QRS AXIS > 100] ANTEROSEPTAL MYOCARDIAL INFARCTION , PROBABLY OLD [40+ ms Q WAVE IN V1-V4] Compared to ECG 06/28/2021 04:58:05 Ventricular premature complex(es) now present Aberrant conduction of supraventricular beat(s) now present Myocardial infarct finding still present Electronically Signed On 06-30-2021 7:42:39 CUTTER AND [employer]ESSER by Rupinder Melchor M.D. [id number]
[2021-06-29 06:28] LABS: Glucose Point of Care 84 mg/dL (70-110)
--- NOTE | 2021-06-29 06:42 | PC.NURSE ---
Dr. Sanches notified of INR results this AM. Ordered cardiac diet for patient.
[2021-06-29] MEDS: spironolactone 25 mg Tablet 12.5 MG PO (10:11)
[2021-06-29] MEDS: gabapentin 100 mg Capsule PO ×2 (10:11→19:43)
[2021-06-29] MEDS: clopidogrel 75 mg Tablet PO (10:11)
[2021-06-29] MEDS: citalopram 20 mg Tablet 10 MG PO (10:11)
[2021-06-29] MEDS: aspirin 81 mg EC Tablet PO (10:12)
[2021-06-29] MEDS: metoprolol tartrate 25 mg Tablet PO ×2 (10:12→19:43)
[2021-06-29] MEDS: nystatin powder 15 gm Btl 1 APPLIC TOPICAL ×2 (10:13→18:30)
[2021-06-29] MEDS: midodrine 5 mg TABLET 10 MG PO ×2 (11:18→16:07)
[2021-06-29] MEDS: phenytoin ER 100 mg Capsule 200 MG PO ×2 (11:19→18:30)
[2021-06-29 11:37] LABS: Glucose Point of Care 119 mg/dL (70-110)
--- NOTE | 2021-06-29 12:54 | PC.CHAP ---
Pastoral Care Encounter/Spiritual Assessment Type of Contact [] Declined machine ii coremaker visit [] Patient/Family/Request visit [] Outpatient visit [xx] Follow-up visit [] Physician referral [] Code/Alert [] Routine visit [] Staff referral [] Actively dying [xx] Patient sleeping [] Family support [] [] Out of room [] Palliative care [] [] Receiving care in room [] Pre-surgical visit [] Trauma [] Long length of stay [] ICU visit [] Other: Relational/Emotional Strength [] Patient feels connected with others/family/visitors/staff [] Distress [] Loneliness/isolation [] Abandonment Spirituality of Patient [] Person of Jennifer [] Attends Jewish of their Jennifer [] Believes in Prayer [] Reads Bible or Hindu materials [] There are Spiritual issues to be addressed Fire Control Technician B Interventions [] Prayer [] Active listening [] Non-anxious presence [] Spiritual/emotional support [] Crisis/trauma care [] Spiritual counseling [] Bereavement support [] Provided bereavement packet [] Provided Bible/devotional materials [] Provided toy/stuffed animal, coloring book to patient or family member [] Provided Communion [] Anointing/[place] [] Salvation [] Completed spiritual assessment [] Other: Impact on Illness or Injury [] Angry [] Fearful [] Anxious [] Often cries [] Exhaustion [] Unable to work [] Unable to attend holiness [] Unable to walk/stand [] Unable to read [] Unable to drive [] Unable to eat/drink [] Unable to sleep [] Unable to be with family [] Patient intubated [] Other: Summary Time spent with patient
[2021-06-29] MEDS: FUROsemide 10 mg/mL SDV 4mL 40 MG IVP (13:41)
[2021-06-29] MEDS: calcitriol 0.25 mcg Capsule PO (13:41)
--- NOTE | 2021-06-29 14:26 | PM.PN ---
Subjective Subjective: Interval history: Seen via telemedicine. Breathing a little more labored this afternoon. Received 40 mg IV lasix. Cardiac cath on hold due to high INR Medications: Reviewed: Yes Medication Review Details: K supplement and spironolactone Vitals/I&O/Wt Last Vital Signs Temp 97.3 F L 06/29/21 08:00 Pulse 97 06/29/21 11:59 Resp 22 H 06/29/21 11:59 BP 116/61 06/29/21 11:59 Pulse Ox 96 06/29/21 11:59 06/28/21 06/29/21 06/29/21 22:59 06:59 14:59 Intake Total 425 / 525 350 / 875 300 / 300 Output Total 150 / 500 250 / 750 250 / 250 Balance 275 / 25 100 / 125 50 / 50 Physical Exam Const: COMMON NORMALS: no acute distress GENERAL APPEARANCE: cooperative Extremity: GENERAL: Yes edema Urinary Catheter Management^: Acevedo: Cath Placed During This Visit: yes, but has since been removed by the nurse Reason for Continuing Indwelling Catheter: Acute Urinary Retention or Obstruction Urinary Catheter Date of Insertion: 06/28/21 Urinary Catheter Time of Insertion: 11:06 Date Urinary Catheter Removed: 06/27/21 Time Urinary Catheter Discontinued: 15:00 Data : 06/29/21 02:55 06/29/21 02:55 Other Labs: Kisha Ca 8.4, serum Alb 2.7, phos 3.5, Mg 2.1 US: Radiologist's impression: 02/2021 Right kidney: 11.6 cm x 3.6 cm x 5.3 cm. Normal size kidney. Mild diffuse cortical thinning. Increased fat within the central renal pelvis. No obstruction or mass. Left kidney: 9.3 cm x 3.8 cm x 4.6 cm. Low normal renal size. Increased echogenicity throughout the kidney with poor cortical medullary differentiation. No mass identified. Mild diffuse thinning of the cortex. ABG Interpretation 1: 7.3751 06/28/21 A&P Additional A&P Information 1. Acute kidney injury, CKD 2. Cardiomyopathy, EF 20%, awaiting cardiac catheterization 3. Rising potassium 4. Anemia, Hb improving Recommend: discontinue potassium supplement. Discontinue spironolactone if K increases further. Continue IV furosemide. Discussed again the possible need for hemodialysis - Carole is agreeable if needed. Attestations Medical Necessity Statement*: see above Time Spent in Patient Care: 16 - 35 minutes Coding Level of Care Code Acute Health Care Marketing Specialist for Sosa Bates
--- NOTE | 2021-06-29 15:01 | PM.PN ---
Vitals/I&O/Wt Last Vital Signs Temp 97.3 F L 06/29/21 08:00 Pulse 97 06/29/21 11:59 Resp 22 H 06/29/21 11:59 BP 116/61 06/29/21 11:59 Pulse Ox 96 06/29/21 11:59 06/29/21 06/29/21 06/29/21 06:59 14:59 22:59 Intake Total 350 / 875 300 / 300 Output Total 250 / 750 250 / 250 Balance 100 / 125 50 / 50 Physical Exam Const: COMMON NORMALS: no acute distress and patient oriented x3 Resp: COMMON NORMALS: normal respiratory effort, No retractions, No use of accessory muscles and clear to auscultation bilaterally AUSCULTATION: clear to auscultation bilaterally Cardio: COMMON NORMALS: regular rate, regular rhythm, S1 normal heart sound present and S2 normal heart sound present RATE: regular rate RHYTHM: regular rhythm HEART SOUNDS: S1 normal heart sound present and S2 normal heart sound present GI: COMMON NORMALS: Normal to inspection, nondistended, normoactive bowel sounds present, Soft to palpation and non-tender PALPATION: Yes Soft to palpation Extremity: COMMON NORMALS: no pedal edema Neuro: COMMON NORMALS: patient oriented x3 Psych: COMMON NORMALS: mental status grossly normal Urinary Catheter Management^: Acevedo: Cath Placed During This Visit: yes, but has since been removed by the nurse Reason for Continuing Indwelling Catheter: Acute Urinary Retention or Obstruction Urinary Catheter Date of Insertion: 06/28/21 Urinary Catheter Time of Insertion: 11:06 Date Urinary Catheter Removed: 06/27/21 Time Urinary Catheter Discontinued: 15:00 Data : 06/29/21 02:55 06/29/21 02:55 A&P Assessment and plan (1) Acute on chronic congestive heart failure: Acute on chronic systolic CHF exacerbation plan: - S/P stress test: Abnormal myocardial perfusion imaging with large sized infarct with significant shaina-infarct ischemia noted in left circumflex artery and RCA territory. LV systolic function is severely reduced. -Cardiac 2D echo LV systolic function is severely reduced with EF of 20 to 25%. Right ventricle is hypokinetic. Left atrium is enlarged. Mitral and aortic valves are thickened. Mild mitral regurgitation. Mild pulmonic regurgitation. Trace tricuspid regurgitation. Compared to prior echocardiogram from 01/21/2021, LV systolic function has decreased further -Creatinine 2.8, hold Lasix?there are plans on coronary angiography -Fluid restrictions less than 1200 cc -After discussing the risks and benefits of coronary angiography, patient accepted the risks, will proceed with coronary angiography -Continue aspirin, Plavix, metoprolol, -Coumadin on hold, INR 2.33 Acute hypercarbic respiratory failure -Likely secondary to nonsustained V. tach, pulmonary edema -Receiving Lasix as needed -Continue BiPAP -Continue Zosyn for possible aspiration pneumonia, aspiration pneumonia coverage TIFFANY on CKD-Creatinine 2.7, urine output 650 cc, nephrology on consult, resume Lasix -initially as he has been on IV Lasix. 40 twice daily. -Lisinopril 2.5 mg p.o. daily has been discontinued given worsening serum creatinine. -Spironolactone 12.5 mg p.o. daily -continue aspirin, Plavix, Coumadin, beta-efe -fluid restriction <1200cc Nonsustained V. tach -Resulting in acute respiratory failure, altered mental status -Acute respiratory failure, improving on BiPAP, PCO2 has improved, can transition back to nasal cannula -Altered mental status, resolved, back to baseline -Etiology concerning for underlying cardiac etiology given positive stress test, and echocardiogram findings, proceeding with coronary angiography -Continue telemetry monitoring NSTEMI, concerning for underlying cardiac etiology -Baseline troponin I109, 6-hour 101.9, delta -7.1, BNP over 24,000 -1 dose Lasix today -Continue Plavix, continue beta-efe, continue statin -Telemetry monitoring -Serial EKGs, serial troponins -Proceed with coronary angiogram -As INR is elevated 2.33, angiogram delayed until INR less than 1.7 Atrial fibrillation, Coumadin on hold Confirmed with patient that she remains a full code Status: Acute Qualifiers: Heart failure type: systolic Qualified Code(s): I50.23 - Acute on chronic systolic (congestive) heart failure (2) Atrial fibrillation with RVR: Atrial fibrillation: Currently rate is well controlled continue metoprolol 50 mg twice a day, pharmacy dose Coumadin, INR 1.68 Status: Acute (3) Atherosclerotic heart disease of [place] coronary artery with unstable angina pectoris: CAD, continue statin, Plavix Status: Chronic Qualifiers: [place] vs. transplanted heart: [place] heart Qualified Code(s): I25.110 - Atherosclerotic heart disease of [place] coronary artery with unstable angina pectoris (4) Dyslipidemia: Status: Chronic (5) CKD (chronic kidney disease): CKD, creatinine 2.4 continue to monitor Status: Acute (6) Diabetes: Insulin-dependent type 2 days mellitus, moderate dose sliding scale Status: Acute Qualifiers: Chronic kidney disease stage: stage 3 (moderate) Chronic kidney disease stage 3 subtype: stage 3b (GFR 30-44) Diabetes mellitus complication detail: with chronic kidney disease Diabetes mellitus complication status: with kidney complications Diabetes mellitus superintendent container terminal insulin use: with superintendent container terminal use Diabetes mellitus type: type 2 Qualified Code(s): E11.22 - Type 2 diabetes mellitus with diabetic chronic kidney disease; N18.32 - Chronic kidney disease, stage 3b; Z79.4 - intermodal dispatcher (current) use of insulin (7) Acute hypercapnic respiratory failure: Status: Acute (8) NSTEMI (non-ST elevated myocardial infarction): Status: Acute (9) Nonsustained ventricular tachycardia: Status: Acute (10) Altered mental status: Status: Acute Additional A&P Information #Loose stool : complaining of 2/3 loose stool daily for the last 2 days , She has been on Abxs for some time. Resolved C.Diff PCR : Negative # Blood in stool: Likely 2/2 to hemorrhoids.H&H Stable.Will continue to monitor. DVT prophylaxis: On warfarin CODE STATUS: Full code Disposition: Patient has been assigned to the [place] [facility], will have to repeat prior authorization Attestations Medical Necessity Statement*: Patient requires hospitalization for NSTEMI, nonsustained V. tach, awaiting coronary angiography Coding Level of Care Code Acute Crnp for Sosa Bates Diagnoses Acute on chronic congestive heart failure I50.23 Heart failure type: systolic Atrial fibrillation with RVR I48.91 Atherosclerotic heart disease of [place] coronary artery with unstable angina pectoris I25.110 [place] vs. transplanted heart: [place] heart Dyslipidemia E78.5 CKD (chronic kidney disease) N18.9 Diabetes E11.22; N18.32; Z79.4 Chronic kidney disease stage: stage 3 (moderate) Chronic kidney disease stage 3 subtype: stage 3b (GFR 30-44) Diabetes mellitus complication detail: with chronic kidney disease Diabetes mellitus complication status: with kidney complications Diabetes mellitus nursing home insulin use: with nursing home use Diabetes mellitus type: type 2 Acute hypercapnic respiratory failure J96.02 NSTEMI (non-ST elevated myocardial infarction) I21.4 Nonsustained ventricular tachycardia I47.2 Altered mental status R41.82
[2021-06-29 17:08] LABS: Glucose Point of Care 202 mg/dL (70-110)
--- NOTE | 2021-06-29 17:28 | PM.PN ---
Subjective Subjective: Interval history: Patient feeling better today. INR still high more than 2.6 will not catheter today and wait for INR below 1.7 Medications: Reviewed: Yes Medication Review Details: K supplement and spironolactone Vitals/I&O/Wt Last Vital Signs Temp 97.3 F L 06/29/21 08:00 Pulse 97 06/29/21 16:00 Resp 22 H 06/29/21 16:00 BP 116/61 06/29/21 16:00 Pulse Ox 96 06/29/21 11:59 06/29/21 06/29/21 06/29/21 06:59 14:59 22:59 Intake Total 350 / 875 350 / 350 Output Total 250 / 750 250 / 250 Balance 100 / 125 100 / 100 Physical Exam Narrative: EXAM NARRATIVE: GENERAL: Patient is alert, awake and oriented x3. Laying in the bed NECK: No jugular vein distension. HEENT: No cyanosis. No icterus. No pallor. HEART: Regular S1 and S2. No murmur, rub or gallop. LUNGS: Inspiratory crackles bilaterally. ABDOMEN: Soft, nontender and nondistended. Positive bowel sounds. No guarding, rebound or tenderness. CENTRAL NERVOUS SYSTEM: Grossly nonfocal. EXTREMITIES: Lower extremities with trace edema bilaterally. Urinary Catheter Management^: Acevedo: Cath Placed During This Visit: yes, but has since been removed by the nurse Reason for Continuing Indwelling Catheter: Acute Urinary Retention or Obstruction Urinary Catheter Date of Insertion: 06/28/21 Urinary Catheter Time of Insertion: 11:06 Date Urinary Catheter Removed: 06/27/21 Time Urinary Catheter Discontinued: 15:00 Data : 06/29/21 02:55 06/29/21 02:55 A&P Assessment and plan (1) NSTEMI (non-ST elevated myocardial infarction): Worsening of LV dysfunction to severely depressed 25% with nonsustained VT and large area of infarct with significant ischemia may at some point require further exploration of the left heart cath however patient is high risk for contrast-induced nephropathy leading to temporary or permanent dialysis and bleeding diathesis, patient is high risk for bleeding as well being on anticoagulation for atrial fibrillation. I have discussion with the patient she would like to Proceed with it. At this point her INR is 2.5 would like to further tune her up before proceeding with left heart cath. I will hold INR for now we will cover her with Lovenox. We will continue aspirin statin Plavix. I will further tomorrow may will diurese her little bit more we will continue to hold warfarin will check INR until unless it is below 1.7 we will not proceed with left heart cath. Patient has been explained again all risk benefit and already for the procedure she would like to proceed with it Continue to diurese with Lasix 40 mg IV. Recheck INR in the morning once below 1.7 we will proceed with a left heart cath most likely day after tomorrow Status: Acute (2) Nonsustained ventricular tachycardia: Appear to be stable doing, most likely ischemia oriented continue to optimize medicine with possible attempt to revascularize Status: Acute (3) Acute on chronic congestive heart failure: Continue to diurese with IV Lasix. 40 mg once a day to keep her euvolemic Status: Acute Qualifiers: Heart failure type: systolic Qualified Code(s): I50.23 - Acute on chronic systolic (congestive) heart failure (4) Atrial fibrillation with RVR: Rate continue to hold anticoagulation check INR in the morning Status: Acute Attestations Medical Necessity Statement*: Patient require continuation hospitalization for above defined care Coding Level of Care Code Established Pt Acute Wet Process Head Miller for Sosa Bates Patient Type Established History Detailed Exam Detailed Medical Decision Making Moderate Complexity Diagnoses NSTEMI (non-ST elevated myocardial infarction) I21.4 Nonsustained ventricular tachycardia I47.2 Acute on chronic congestive heart failure I50.23 Heart failure type: systolic Atrial fibrillation with RVR I48.91
[2021-06-29] MEDS: insulin lispro 100 unit/1 mL SUBCUT ×2 (18:31→20:17)
[2021-06-29] MEDS: docusate sodium 100 mg Capsule PO (19:43)
[2021-06-29] MEDS: atorvastatin 40 mg Tablet 80 MG PO (19:43)
[2021-06-29 20:09] LABS: Glucose Point of Care 185 mg/dL (70-110)
[2021-06-30] VITALS (14 sets, daily range): BP systolic 95–125; BP diastolic 50–79; PULSE 64–107; RESP 7–28; TEMP 36.1–36.4; O2SAT 93–100
[2021-06-30] MEDS: piperacillin-tazobactam 3.375 GM in sodium chloride 0.9% (plus) 50 ML IV ×4 (00:11→23:12)
[2021-06-30 05:10] LABS: Basophils # 0.1 10^3/uL (0.0-0.1); Basophils % 0.8 %; Eosinophils # 0.1 10^3/uL (0.0-0.8); Hematocrit 32.4 % (37.0-47.0); Hemoglobin 9.8 g/dL (11.5-15.3); Lymphocytes # 1.3 10^3/uL (0.8-4.8); Lymphocytes % 20.9 %; Mean Corpuscular HGB Conc 30.2 g/dL (30.0-36.0); Mean Corpuscular Hemoglobin 29.6 pg (28.0-34.0); Mean Corpuscular Volume 97.9 fl (81-99); Monocytes % 16.8 %; Neutrophils # 3.62 10^3/uL (1.8-7.7); Neutrophils % 59.2 %; Nucleated Red Blood Cells % 0 %; Platelet Count 205 10^3/cmm (130-400); Red Blood Count 3.31 10^6/uL (4.1-5.3); Red Cell Distribution Width 16.2 % (12.1-15.1); White Blood Count 6.1 10^3/uL (4.0-10.0)
[2021-06-30 05:26] LABS: INR 1.46 (0.8-1.2)
[2021-06-30] MEDS: levothyroxine 200 mcg Tablet PO (05:28)
[2021-06-30] MEDS: levothyroxine 25 mcg Tablet PO (05:28)
[2021-06-30] MEDS: sennosides-docusate Tablet 1 TAB PO (05:28)
[2021-06-30] MEDS: pantoprazole DR 40 mg Tablet PO (05:28)
[2021-06-30 05:39] LABS: Glucose Point of Care 66 mg/dL (70-110)
[2021-06-30 05:43] LABS: ABG PCO2 51.6 mmHg (35-45); ABG PH Result 7.37 (7.35-7.45); Arterial Blood Gas Hematocrit 31.3 % (37-47); Base Excess ABG 3.6 mmol/L (-2.0-2.0); Blood Gas Allen Test Pos; Blood Gas Operator Identificat Anonymous; Blood Gas Sample Type Arterial; Carboxyhemoglobin 1.4 %THgb (0.4-20.1); HCO3 ABG 29.7 mmol/L (22-26); HGB O2 Sat 96.4 % (95-100); Ionized Calcium Level - ABG 1.2 mmol/L (1.1-1.4); Methemoglobin 0.8 % (0.4-1.5); Oxygen Saturation ABG 98.5; PO2 ABG 97.7 mmHg (80.0-100.0); Potassium Level - ABG 4.5 mmol/L (3.5-5.0); Total Hemoglobin 10.2 g/dL (12-16)
[2021-06-30 05:44] LABS: Blood Gas Sample Site Radial, right; Oxygen Device BIPAP
[2021-06-30 05:47] LABS: Alanine Aminotransferase 8 U/L (0-33); Albumin Level 2.5 g/dL (3.5-5.2); Alkaline Phosphatase 166 IU/L (35-105); Aspartate Amino Transferase 30 U/L (0-32); Blood Urea Nitrogen 41 mg/dL (8-23); C Reactive Protein 33.2 mg/L (0.0-4.9); Calcium 7.6 mg/dL (8.5-10.5); Carbon Dioxide 24 mmol/L (22-29); Chloride 103 mmol/L (98-107); Glucose 49 mg/dL (65-115); Magnesium 1.9 mg/dL (1.7-2.3); Osmolality Calculated 293 mOsm/kg (285-295); Phosphorus 2.9 mg/dL (2.5-4.5); Sodium 138 mmol/L (136-145); Total Bilirubin 0.3 mg/dL (0.15-1.2); Total Protein 5.5 g/dL (6.6-8.7)
[2021-06-30 05:49] LABS: Anion Gap 15.7 (5-19); Potassium 4.7 mmol/L (3.5-5.1)
--- NOTE | 2021-06-30 06:00 | ECG_ITS ---
[facility] Test Date: 2021-06-30 Pat Name: Carole Lee Department: Room: 111 Gender: Female Disintegrator: : 1945 Requested By: Delgado Ramos Order Number: [id number] Reading MD: ANGEL NGO Measurements Intervals Welcome Rate: 86 P: GA: QRS: 128 QRSD: 124 T: 0 QT: 411 QTc: 492 Interpretive Statements ATRIAL FIBRILLATION RIGHT AXIS DEVIATION [QRS AXIS > 100] ANTEROSEPTAL MYOCARDIAL INFARCTION , OF INDETERMINATE AGE [40+ ms Q WAVE IN V1-V4] Compared to ECG 06/29/2021 05:24:26 Ventricular premature complex(es) no longer present Aberrant conduction of supraventricular beat(s) no longer present Myocardial infarct finding still present Electronically Signed On 07-01-2021 20:00:01 DIGITAL MARKETING STRATEGIST by ANGEL NGO [id number]
[2021-06-30 06:27] LABS: Glucose Point of Care 114 mg/dL (70-110)
--- NOTE | 2021-06-30 06:27 | PC.NURSE ---
Patient was able to be awakened, however was much more drowsy and harder to awaken than earlier in shift. Blood glucose 66. Attempt to give patient IV Dextrose and IV began leaking. IM Glucagon given. Blood glucose rechecked and was 114. Patient began awakening more. IV started by ED nurse with ultrasound machine. Dr. Quintana notified and at bedside. ABG taken. Patient wore Bipap majority of the night. Patient is currently back to previous/baseline state and is fully awake. Patient given orange juice.
--- NOTE | 2021-06-30 06:48 | PC.NURSE ---
Full assessment done on patient around 0400. Patient assessment, including neuro assessment. When going to give patient 0600 medications, patient was more drowsy and lethargic than her normal. Please see previous note on interventions for patient. Now that patient is back to being fully awake and alert, Patient states she does not remember anything from the night.
--- NOTE | 2021-06-30 08:41 | PC.SOCIAL ---
IMM update IMM updated with patient. Verbalized an understanding. Copy Pg 2 provided. Initialled, dated, timed, and placed in chart.
[2021-06-30 08:58] LABS: Glucose Point of Care 153 mg/dL (70-110)
[2021-06-30 09:06] LABS: ABG PCO2 50.8 mmHg (35-45); ABG PH Result 7.38 (7.35-7.45); Arterial Blood Gas Hematocrit 30.3 % (37-47); Base Excess ABG 4.1 mmol/L (-2.0-2.0); Blood Gas Sample Site Brachial, right; Blood Gas Sample Type Arterial; Carboxyhemoglobin 1.3 %THgb (0.4-20.1); HGB O2 Sat 95.5 % (95-100); Ionized Calcium Level - ABG 1.2 mmol/L (1.1-1.4); Methemoglobin 0.8 % (0.4-1.5); Oxygen Device NC; Oxygen Saturation ABG 97.7; PO2 ABG 89.7 mmHg (80.0-100.0); Potassium Level - ABG 4.5 mmol/L (3.5-5.0); Total Hemoglobin 9.9 g/dL (12-16)
[2021-06-30] MEDS: dextrose 5%-sod chloride 0.9% 1,000 ML 50 ML IV (10:15)
[2021-06-30] MEDS: calcitriol 0.25 mcg Capsule PO (10:18)
[2021-06-30] MEDS: midodrine 5 mg TABLET 10 MG PO ×3 (10:18→22:14)
[2021-06-30] MEDS: metoprolol tartrate 25 mg Tablet PO ×2 (10:18→22:14)
[2021-06-30] MEDS: aspirin 81 mg EC Tablet PO (10:18)
[2021-06-30] MEDS: phenytoin ER 100 mg Capsule 200 MG PO ×2 (10:18→18:01)
[2021-06-30] MEDS: citalopram 20 mg Tablet 10 MG PO (10:19)
[2021-06-30] MEDS: gabapentin 100 mg Capsule PO ×2 (10:19→22:14)
[2021-06-30] MEDS: clopidogrel 75 mg Tablet PO (10:19)
[2021-06-30] MEDS: nystatin powder 15 gm Btl 1 APPLIC TOPICAL ×2 (10:20→18:03)
[2021-06-30] MEDS: spironolactone 25 mg Tablet 12.5 MG PO (10:39)
[2021-06-30 11:35] LABS: Glucose Point of Care 99 mg/dL (70-110)
--- NOTE | 2021-06-30 12:08 | P.PN_ITS ---
Subjective Subjective: Interval history: Visit performed via telehealth with bedside assistance of RN She feels better, minimal oral intake Medications: Reviewed: Yes Vitals/I&O/Wt Last Vital Signs Temp 97.0 F L 06/30/21 08:00 Pulse 71 06/30/21 09:00 Resp 16 06/30/21 09:00 BP 125/75 06/30/21 08:00 Pulse Ox 97 06/30/21 09:00 06/29/21 06/30/21 06/30/21 22:59 06:59 14:59 Intake Total 50 / 400 50 / 450 Output Total 550 / 800 250 / 1050 Balance -500 / -400 -200 / -600 Physical Exam Const: COMMON NORMALS: no acute distress Urinary Catheter Management^: Acevedo: Cath Placed During This Visit: yes, but has since been removed by the nurse Reason for Continuing Indwelling Catheter: Acute Urinary Retention or Obstruction Urinary Catheter Date of Insertion: 06/28/21 Urinary Catheter Time of Insertion: 11:06 Date Urinary Catheter Removed: 06/27/21 Time Urinary Catheter Discontinued: 15:00 Data : 06/30/21 04:50 06/30/21 04:50 A&P Additional A&P Information 1. Acute kidney injury, CKD: renal function stable 2. Volume overload: responded well to 40 mg IV lasix, recommend to continue 3. NSTEMI, Cardiomyopathy, EF 20%, awaiting cardiac catheterization 4. Anemia, Hb improving Recommend: per primary service. Attestations Medical Necessity Statement*: see above Time Spent in Patient Care: 16 - 35 minutes Coding Level of Care Code Acute Sales Negotiator for Sosa Bates
--- NOTE | 2021-06-30 14:23 | PM.PN ---
Subjective Subjective: Interval history: Patient was seen this morning, overnight she had episodes of hypoglycemia, blood sugar in the 60s, this morning she was a bit drowsy, repeat blood sugar 150, repeat VBG showed a PCO2 of 50, it took about a minute to arouse her, she tells me that she had a difficult night, she follows commands, denies any headaches, no blurry vision, no nausea, vomiting, Vitals/I&O/Wt Last Vital Signs Temp 97.0 F L 06/30/21 08:00 Pulse 71 06/30/21 09:00 Resp 16 06/30/21 09:00 BP 125/75 06/30/21 08:00 Pulse Ox 97 06/30/21 09:00 06/29/21 06/30/21 06/30/21 22:59 06:59 14:59 Intake Total 50 / 400 50 / 450 50 / 50 Output Total 550 / 800 250 / 1050 Balance -500 / -400 -200 / -600 50 / 50 Physical Exam Const: COMMON NORMALS: no acute distress and patient oriented x3 Resp: COMMON NORMALS: normal respiratory effort, No retractions, No use of accessory muscles and clear to auscultation bilaterally AUSCULTATION: clear to auscultation bilaterally Cardio: COMMON NORMALS: regular rate, regular rhythm, S1 normal heart sound present and S2 normal heart sound present RATE: regular rate RHYTHM: regular rhythm HEART SOUNDS: S1 normal heart sound present and S2 normal heart sound present GI: COMMON NORMALS: Normal to inspection, nondistended, normoactive bowel sounds present, Soft to palpation and non-tender PALPATION: Yes Soft to palpation Extremity: COMMON NORMALS: no pedal edema Neuro: COMMON NORMALS: patient oriented x3 Urinary Catheter Management^: Acevedo: Cath Placed During This Visit: yes, but has since been removed by the nurse Reason for Continuing Indwelling Catheter: Acute Urinary Retention or Obstruction Urinary Catheter Date of Insertion: 06/28/21 Urinary Catheter Time of Insertion: 11:06 Date Urinary Catheter Removed: 06/27/21 Time Urinary Catheter Discontinued: 15:00 Data : 06/30/21 04:50 06/30/21 04:50 A&P Assessment and plan (1) Acute on chronic congestive heart failure: Acute on chronic systolic CHF exacerbation plan: - S/P stress test: Abnormal myocardial perfusion imaging with large sized infarct with significant shaina-infarct ischemia noted in left circumflex artery and RCA territory. LV systolic function is severely reduced. -Cardiac 2D echo LV systolic function is severely reduced with EF of 20 to 25%. Right ventricle is hypokinetic. Left atrium is enlarged. Mitral and aortic valves are thickened. Mild mitral regurgitation. Mild pulmonic regurgitation. Trace tricuspid regurgitation. Compared to prior echocardiogram from 01/21/2021, LV systolic function has decreased further -Creatinine 2.8, hold Lasix?there are plans on coronary angiography -Fluid restrictions less than 1200 cc -After discussing the risks and benefits of coronary angiography, patient accepted the risks, will proceed with coronary angiography -Continue aspirin, Plavix, metoprolol, -Coumadin on hold, INR 1.46 Acute hypercarbic respiratory failure -Likely secondary to nonsustained V. tach, pulmonary edema -Receiving Lasix as needed -Continue BiPAP as needed -Continue Zosyn for possible aspiration pneumonia, aspiration pneumonia coverage TIFFANY on CKD-Creatinine 2.5, urine output 650 cc, nephrology on consult, resume Lasix -initially as he has been on IV Lasix. 40 twice daily. -Lisinopril 2.5 mg p.o. daily has been discontinued given worsening serum creatinine. -Spironolactone 12.5 mg p.o. daily -continue aspirin, Plavix, beta-efe -fluid restriction <1200cc 1 dose Lasix today- Nonsustained V. tach -Resulting in acute respiratory failure, altered mental status -Acute respiratory failure, improving on BiPAP, PCO2 has improved, can transition back to nasal cannula -Altered mental status, resolved, back to baseline -Etiology concerning for underlying cardiac etiology given positive stress test, and echocardiogram findings, proceeding with coronary angiography -Continue telemetry monitoring NSTEMI, concerning for underlying cardiac etiology -Baseline troponin I109, 6-hour 101.9, delta -7.1, BNP over 24,000 -1 dose Lasix today -Continue Plavix, continue beta-efe, continue statin -Telemetry monitoring -Serial EKGs, serial troponins -Proceed with coronary angiogram -As INR is elevated 1.4, proceed with angiogram -Switch to him to heparin drip in the interim Atrial fibrillation, Coumadin on hold, switch to heparin drip in the interim Confirmed with patient that she remains a full code Status: Acute Qualifiers: Heart failure type: systolic Qualified Code(s): I50.23 - Acute on chronic systolic (congestive) heart failure (2) Atrial fibrillation with RVR: Atrial fibrillation: Currently rate is well controlled continue metoprolol 50 mg twice a day, pharmacy dose Coumadin, INR 1.68 Status: Acute (3) Atherosclerotic heart disease of [place] coronary artery with unstable angina pectoris: CAD, continue statin, Plavix Status: Chronic Qualifiers: [place] vs. transplanted heart: [place] heart Qualified Code(s): I25.110 - Atherosclerotic heart disease of [place] coronary artery with unstable angina pectoris (4) Dyslipidemia: Status: Chronic (5) CKD (chronic kidney disease): CKD, creatinine 2.4 continue to monitor Status: Acute (6) Diabetes: Insulin-dependent type 2 days mellitus, moderate dose sliding scale Status: Acute Qualifiers: Chronic kidney disease stage: stage 3 (moderate) Chronic kidney disease stage 3 subtype: stage 3b (GFR 30-44) Diabetes mellitus complication detail: with chronic kidney disease Diabetes mellitus complication status: with kidney complications Diabetes mellitus ocean transportation intermediary insulin use: with [place] [facility] use Diabetes mellitus type: type 2 Qualified Code(s): E11.22 - Type 2 diabetes mellitus with diabetic chronic kidney disease; N18.32 - Chronic kidney disease, stage 3b; Z79.4 - care home (current) use of insulin (7) Acute hypercapnic respiratory failure: Status: Acute (8) NSTEMI (non-ST elevated myocardial infarction): Status: Acute (9) Nonsustained ventricular tachycardia: Status: Acute (10) Altered mental status: Status: Acute Additional A&P Information #Loose stool : complaining of 2/3 loose stool daily for the last 2 days , She has been on Abxs for some time. Resolved C.Diff PCR : Negative # Blood in stool: Likely 2/2 to hemorrhoids.H&H Stable.Will continue to monitor. DVT prophylaxis: On warfarin CODE STATUS: Full code Disposition: Patient has been assigned to the al[facility], will have to repeat prior authorization Attestations Medical Necessity Statement*: Patient requires hospitalization for nonsustained V. tach, CHF, proceeding with a angiogram Coding Level of Care Code Acute Special Procedures Nurse for Sosa Bates Diagnoses Acute on chronic congestive heart failure I50.23 Heart failure type: systolic Atrial fibrillation with RVR I48.91 Atherosclerotic heart disease of [place] coronary artery with unstable angina pectoris I25.110 [place] vs. transplanted heart: [place] heart Dyslipidemia E78.5 CKD (chronic kidney disease) N18.9 Diabetes E11.22; N18.32; Z79.4 Chronic kidney disease stage: stage 3 (moderate) Chronic kidney disease stage 3 subtype: stage 3b (GFR 30-44) Diabetes mellitus complication detail: with chronic kidney disease Diabetes mellitus complication status: with kidney complications Diabetes mellitus ocean transportation intermediary insulin use: with ocean transportation intermediary use Diabetes mellitus type: type 2 Acute hypercapnic respiratory failure J96.02 NSTEMI (non-ST elevated myocardial infarction) I21.4 Nonsustained ventricular tachycardia I47.2 Altered mental status R41.82
--- NOTE | 2021-06-30 14:47 | PM.PN ---
Subjective Subjective: Interval history: Patient denies any chest pain she is more feeling stable today she is not much short of breath. Medications: Reviewed: Yes Medication Review Details: K supplement and spironolactone Vitals/I&O/Wt Last Vital Signs Temp 97.0 F L 06/30/21 08:00 Pulse 71 06/30/21 12:00 Resp 16 06/30/21 12:00 BP 125/75 06/30/21 08:00 Pulse Ox 97 06/30/21 09:00 06/29/21 06/30/21 06/30/21 22:59 06:59 14:59 Intake Total 50 / 400 50 / 450 50 / 50 Output Total 550 / 800 250 / 1050 Balance -500 / -400 -200 / -600 50 / 50 Physical Exam Narrative: EXAM NARRATIVE: GENERAL: Patient is alert, awake and oriented x3. Laying in the bed, she is comfortable today and talking now NECK: No jugular vein distension. HEENT: No cyanosis. No icterus. No pallor. HEART: Regular S1 and S2. No murmur, rub or gallop. LUNGS: Inspiratory crackles bilaterally. ABDOMEN: Soft, nontender and nondistended. Positive bowel sounds. No guarding, rebound or tenderness. CENTRAL NERVOUS SYSTEM: Grossly nonfocal. EXTREMITIES: Lower extremities with trace edema bilaterally. Urinary Catheter Management^: Acevedo: Cath Placed During This Visit: yes, but has since been removed by the nurse Reason for Continuing Indwelling Catheter: Acute Urinary Retention or Obstruction Urinary Catheter Date of Insertion: 06/28/21 Urinary Catheter Time of Insertion: 11:06 Date Urinary Catheter Removed: 06/27/21 Time Urinary Catheter Discontinued: 15:00 Data : 06/30/21 04:50 06/30/21 04:50 A&P Assessment and plan (1) NSTEMI (non-ST elevated myocardial infarction): Worsening of LV dysfunction to severely depressed 25% with nonsustained VT and large area of infarct with significant ischemia may at some point require further exploration of the left heart cath however patient is high risk for contrast-induced nephropathy leading to temporary or permanent dialysis and bleeding diathesis, patient is high risk for bleeding as well being on anticoagulation for atrial fibrillation. I have discussion with the patient she would like to Proceed with it. At this point her INR is 2.5 would like to further tune her up before proceeding with left heart cath. I will hold INR for now we will cover her with Lovenox. We will continue aspirin statin Plavix. I will further tomorrow may will diurese her little bit more we will continue to hold warfarin will check INR until unless it is below 1.7 we will not proceed with left heart cath. Patient has been explained again all risk benefit and already for the procedure she would like to proceed with it Continue to diurese with Lasix 40 mg IV. Recheck INR in the morning once below 1.7 we will proceed with a left heart cath most likely day after tomorrow I have detailed discussion with the patient and the family by bedside. Patient would like to be considered for coronary angiogram and would not like to accept just medical management. He understand all risk benefit and alternative for the procedure she understand risk for contrast-induced nephropathy leading to temporary permanent dialysis major minor bleed stroke heart failure respiratory failure worsening of congestive heart failure and intubation. She has requested that I could do her angiogram and requested to be done on Friday when her daughter will be here. We will therefore defer the angiogram till Friday. I have detailed discussion with her son daughter by bedside in her presence. They all understood clearly risk benefit and alternative for the procedure and would like to proceed with it. Status: Acute (2) Nonsustained ventricular tachycardia: Appear to be stable doing, most likely ischemia oriented continue to optimize medicine with possible attempt to revascularize Status: Acute (3) Acute on chronic congestive heart failure: Continue to diurese with IV Lasix. 40 mg once a day to keep her euvolemic Status: Acute Qualifiers: Heart failure type: systolic Qualified Code(s): I50.23 - Acute on chronic systolic (congestive) heart failure (4) Atrial fibrillation with RVR: INR 1.4. Continue holding warfarin Status: Acute Attestations Medical Necessity Statement*: Patient require continuation hospitalization for above defined care. Coding Level of Care Code Established Pt Acute Certified Coatings Inspector for Sosa Bates Patient Type Established History Detailed Exam Detailed Medical Decision Making Moderate Complexity Diagnoses NSTEMI (non-ST elevated myocardial infarction) I21.4 Nonsustained ventricular tachycardia I47.2 Acute on chronic congestive heart failure I50.23 Heart failure type: systolic Atrial fibrillation with RVR I48.91
[2021-06-30 17:05] LABS: Glucose Point of Care 130 mg/dL (70-110)
[2021-06-30 17:38] LABS: Platelet Count 219 10^3/cmm (130-400)
[2021-06-30] MEDS: FUROsemide 10 mg/mL SDV 4mL 40 MG IVP (18:05)
--- NOTE | 2021-06-30 19:36 | PC.NURSE ---
Received report from CHEYENNE Grant. Patient resting in bed with eyes closed. Opens spontaneously with verbal stimuli. Denies pain or needs presently. No distress observed.
[2021-06-30 20:34] LABS: Glucose Point of Care 167 mg/dL (70-110)
[2021-06-30] MEDS: heparin drip 25,000 UNIT/500 ML PREMIX 36 UNIT IV (22:11)
[2021-06-30] MEDS: heparin 5,000 unit/mL INJ 1 mL IV (22:13)
[2021-06-30] MEDS: atorvastatin 40 mg Tablet 80 MG PO (22:14)
[2021-06-30] MEDS: docusate sodium 100 mg Capsule PO (22:14)
--- NOTE | 2021-06-30 23:10 | PC.NURSE ---
Provided heparin bolus of 5200units from heparin gtt. Verified with CHEYENNE Deluca.
[2021-07-01] VITALS (10 sets, daily range): BP systolic 92–122; BP diastolic 54–94; PULSE 61–118; RESP 8–26; TEMP 36.4; O2SAT 93–99
--- NOTE | 2021-07-01 04:22 | PC.NURSE ---
Patient currently on heparin drip. Patient is a very hard stick and lab is unable to obtain blood for a PTT for heparin drip protocol. Informed Dr Quintana and received instruction to have RT attempt lab draw.
[2021-07-01 04:30] LABS: Glucose Point of Care 185 mg/dL (70-110)
--- NOTE | 2021-07-01 04:43 | PC.NURSE ---
RT unable to obtain labs this morning as well. Only able to obtain flash. No blood for am labs or much needed PTT.
[2021-07-01] MEDS: pantoprazole DR 40 mg Tablet PO (04:46)
[2021-07-01] MEDS: levothyroxine 200 mcg Tablet PO (04:46)
[2021-07-01] MEDS: levothyroxine 25 mcg Tablet PO (04:46)
[2021-07-01] MEDS: sennosides-docusate Tablet 1 TAB PO (04:46)
--- NOTE | 2021-07-01 05:43 | PC.NURSE ---
Dr Manjarrez in to see patient. Doctor performed blood draw for PTT from right groin. Only able to obtain blood for PTT. No other labs. Doctor to attempt central line placement.
--- NOTE | 2021-07-01 05:48 | PC.NURSE ---
Addendum entered by June Mendoza RN 07/01/21 06:30: Dr Quintana is aware Original Note: PTT not drawn. Blood collected for chemistry only.
[2021-07-01 06:28] LABS: Blood Urea Nitrogen 41 mg/dL (8-23); Calcium 7.8 mg/dL (8.5-10.5); Carbon Dioxide 22 mmol/L (22-29); Chloride 103 mmol/L (98-107); Glucose 145 mg/dL (65-115); Osmolality Calculated 297 mOsm/kg (285-295); Sodium 137 mmol/L (136-145)
--- NOTE | 2021-07-01 06:30 | PC.NURSE ---
Dr Quintana in to attempt a central line. Unable to gain access at this time. Doctor was able to draw small amount of blood for lab however most likely will not be enough for a PTT.
[2021-07-01 06:33] LABS: Anion Gap 17.4 (5-19); Potassium 5.4 mmol/L (3.5-5.1)
[2021-07-01 06:42] LABS: Glucose Point of Care 148 mg/dL (70-110)
--- NOTE | 2021-07-01 08:29 | PC.NURSE ---
after several reported attempts to obtain venous blood draw from previous shift This nurse attempted 2x with no success this nurse was able to obtain blood after a 20 min disruption in Iv infusion time was able to draw from IV
[2021-07-01 08:49] LABS: Basophils # 0.1 10^3/uL (0.0-0.1); Eosinophils # 0.5 10^3/uL (0.0-0.8); Eosinophils % 6.8 %; Hematocrit 34.1 % (37.0-47.0); Hemoglobin 10.2 g/dL (11.5-15.3); Lymphocytes # 2.3 10^3/uL (0.8-4.8); Lymphocytes % 33.6 %; Mean Corpuscular HGB Conc 29.9 g/dL (30.0-36.0); Mean Corpuscular Hemoglobin 30.1 pg (28.0-34.0); Mean Corpuscular Volume 100.6 fl (81-99); Monocytes % 13.9 %; Neutrophils # 3.07 10^3/uL (1.8-7.7); Neutrophils % 44.3 %; Nucleated Red Blood Cells % 0 %; Platelet Count 216 10^3/cmm (130-400); Red Blood Count 3.39 10^6/uL (4.1-5.3); Red Cell Distribution Width 16.1 % (12.1-15.1); White Blood Count 6.9 10^3/uL (4.0-10.0)
[2021-07-01 09:07] LABS: Magnesium 1.8 mg/dL (1.7-2.3)
[2021-07-01 09:22] LABS: Partial Thromboplastin Time > 250.0 SECONDS (23.9-36.7)
[2021-07-01] MEDS: spironolactone 25 mg Tablet 12.5 MG PO (09:50)
[2021-07-01] MEDS: phenytoin ER 100 mg Capsule 200 MG PO ×2 (09:50→18:17)
[2021-07-01] MEDS: citalopram 20 mg Tablet 10 MG PO (09:50)
[2021-07-01] MEDS: midodrine 5 mg TABLET 10 MG PO ×2 (09:50→16:25)
[2021-07-01] MEDS: aspirin 81 mg EC Tablet PO (09:50)
[2021-07-01] MEDS: clopidogrel 75 mg Tablet PO (09:51)
[2021-07-01] MEDS: calcitriol 0.25 mcg Capsule PO (09:51)
[2021-07-01] MEDS: FUROsemide 10 mg/mL SDV 4mL 40 MG IVP (09:51)
[2021-07-01] MEDS: metoprolol tartrate 25 mg Tablet PO ×2 (09:51→21:17)
[2021-07-01] MEDS: gabapentin 100 mg Capsule PO ×2 (09:53→21:02)
[2021-07-01] MEDS: insulin lispro 100 unit/1 mL SUBCUT ×2 (09:53→21:03)
--- NOTE | 2021-07-01 10:43 | P.PN_ITS ---
Subjective Subjective: Interval history: seen via telemedicine with bedside assistance of RN no new complaints Medications: Reviewed: Yes Vitals/I&O/Wt Last Vital Signs Temp 97.6 F 06/30/21 23:41 Pulse 93 07/01/21 06:00 Resp 12 07/01/21 03:32 BP 122/94 07/01/21 03:32 Pulse Ox 99 07/01/21 03:32 06/30/21 07/01/21 07/01/21 22:59 06:59 14:59 Intake Total 680.833 / 730.833 50 / 780.833 Output Total 900 / 900 Balance 680.833 / 730.833 -850 / -119.167 Weight last 48 hrs Weight 155.945 kg Physical Exam Const: COMMON NORMALS: no acute distress GENERAL APPEARANCE: cooperative Urinary Catheter Management^: Acevedo: Cath Placed During This Visit: yes, but has since been removed by the nurse Reason for Continuing Indwelling Catheter: Accurate Measurement of Urinary Output in Critically Ill Patients Urinary Catheter Date of Insertion: 06/28/21 Urinary Catheter Time of Insertion: 11:06 Date Urinary Catheter Removed: 06/27/21 Time Urinary Catheter Discontinued: 15:00 Data : 07/01/21 08:25 07/01/21 05:37 A&P Additional A&P Information 1. Acute kidney injury, CKD: renal function stable 2. Volume overload: responding well to 40 mg IV lasix, recommend to continue 3. Hyperkalemia: discontinue spironolactone, 1 dose oral kayexylate, low potasium diet 4. NSTEMI, Cardiomyopathy, EF 20%, plan for cardiac catheterization tomorrow. Patient aware of risk of AMANDA, possible need for dialysis 4. Anemia, Hb stable Attestations Medical Necessity Statement*: see above Time Spent in Patient Care: 16 - 35 minutes Coding Level of Care Code Acute [employer] for Sosa Bates
[2021-07-01] MEDS: sodium polystyrene sulfonate 15 gm/60 mL Btl PO (12:26)
--- NOTE | 2021-07-01 13:30 | PC.NURSE ---
patient walked with therapy and was agreeable to sit in chair this shift patient tolerating well
[2021-07-01 14:03] LABS: Partial Thromboplastin Time 144.4 SECONDS (23.9-36.7)
--- NOTE | 2021-07-01 14:47 | PC.NURSE ---
Ptt result called to Dr alcaraz instructions to continue to hold Heparin gtt
--- NOTE | 2021-07-01 15:05 | P.PN_ITS ---
Subjective Subjective: Interval history: Patient was seen this morning, she is alert and oriented x3, follows all commands, she wants to wait until tomorrow to do her cardiac catheterization, her daughter is coming from [place], currently on 1 L nasal cannula Vitals/I&O/Wt Last Vital Signs Temp 97.6 F 06/30/21 23:41 Pulse 85 07/01/21 12:50 Resp 12 07/01/21 09:00 BP 104/54 07/01/21 09:00 Pulse Ox 94 07/01/21 12:50 07/01/21 07/01/21 07/01/21 06:59 14:59 22:59 Intake Total 50 / 955.811 5485.4 / 1004.4 Output Total 900 / 900 Balance -850 / -797.743 2879.4 / 1004.4 Weight last 48 hrs Weight 155.945 kg Physical Exam Const: COMMON NORMALS: no acute distress and patient oriented x3 Resp: COMMON NORMALS: normal respiratory effort, No retractions, No use of accessory muscles and clear to auscultation bilaterally AUSCULTATION: clear to auscultation bilaterally Cardio: COMMON NORMALS: regular rate, S1 normal heart sound present and S2 normal heart sound present RATE: regular rate RHYTHM: abnormal rhythm HEART SOUNDS: S1 normal heart sound present and S2 normal heart sound present GI: COMMON NORMALS: Normal to inspection, nondistended, normoactive bowel sounds present, Soft to palpation, non-tender and no masses PALPATION: Yes Soft to palpation Extremity: COMMON NORMALS: no pedal edema Neuro: COMMON NORMALS: patient oriented x3 Psych: COMMON NORMALS: mental status grossly normal Urinary Catheter Management^: Acevedo: Cath Placed During This Visit: yes, but has since been removed by the nurse Reason for Continuing Indwelling Catheter: Accurate Measurement of Urinary Output in Critically Ill Patients Urinary Catheter Date of Insertion: 06/28/21 Urinary Catheter Time of Insertion: 11:06 Date Urinary Catheter Removed: 06/27/21 Time Urinary Catheter Discontinued: 15:00 Data : 07/01/21 08:25 07/01/21 05:37 A&P Assessment and plan (1) Acute on chronic congestive heart failure: Acute on chronic systolic CHF exacerbation plan: - S/P stress test: Abnormal myocardial perfusion imaging with large sized infarct with significant shaina-infarct ischemia noted in left circumflex artery and RCA territory. LV systolic function is severely reduced. -Cardiac 2D echo LV systolic function is severely reduced with EF of 20 to 25%. Right ventricle is hypokinetic. Left atrium is enlarged. Mitral and aortic valves are thickened. Mild mitral regurgitation. Mild pulmonic regurgitation. Trace tricuspid regurgitation. Compared to prior echocardiogram from 01/21/2021, LV systolic function has decreased further -Creatinine 2.5, 40mg IVP Lasix?there are plans on coronary angiography -Fluid restrictions less than 1200 cc -After discussing the risks and benefits of coronary angiography, patient accepted the risks, will proceed with coronary angiography tommorow -Continue aspirin, Plavix, metoprolol, -Coumadin on hold, INR 1.46, heparin drip for anticoag Acute hypercarbic respiratory failure -Likely secondary to nonsustained V. tach, pulmonary edema -Receiving Lasix as needed -Continue BiPAP as needed -Continue Zosyn for possible aspiration pneumonia, aspiration pneumonia coverage TIFFANY on CKD-Creatinine 2.5, urine output 650 cc, nephrology on consult, resume Lasix -initially as he has been on IV Lasix. 40 twice daily. -Lisinopril 2.5 mg p.o. daily has been discontinued given worsening serum creatinine. -Spironolactone 12.5 mg p.o. daily -continue aspirin, Plavix, beta-efe -fluid restriction <1200cc 1 dose Lasix today Nonsustained V. tach -Resulting in acute respiratory failure, altered mental status -Acute respiratory failure, improving on BiPAP, PCO2 has improved, can transition back to nasal cannula -Altered mental status, resolved, back to baseline -Etiology concerning for underlying cardiac etiology given positive stress test, and echocardiogram findings, proceeding with coronary angiography -Continue telemetry monitoring NSTEMI, concerning for underlying cardiac etiology -Baseline troponin I109, 6-hour 101.9, delta -7.1, BNP over 24,000 -1 dose Lasix today -Continue Plavix, continue beta-efe, continue statin -Telemetry monitoring -Serial EKGs, serial troponins -Proceed with coronary angiogram -As INR is elevated 1.4, proceed with angiogram -Switch to him to heparin drip in the interim Atrial fibrillation, Coumadin on hold, switch to heparin drip in the interim Confirmed with patient that she remains a full code Status: Acute Qualifiers: Heart failure type: systolic Qualified Code(s): I50.23 - Acute on chronic systolic (congestive) heart failure (2) Atrial fibrillation with RVR: Atrial fibrillation: Currently rate is well controlled continue metoprolol 50 mg twice a day, pharmacy dose Coumadin, INR 1.68 Status: Acute (3) Atherosclerotic heart disease of [place] coronary artery with unstable angina pectoris: CAD, continue statin, Plavix Status: Chronic Qualifiers: [place] vs. transplanted heart: [place] heart Qualified Code(s): I25.110 - Atherosclerotic heart disease of [place] coronary artery with unstable angina pectoris (4) Dyslipidemia: Status: Chronic (5) CKD (chronic kidney disease): CKD, creatinine 2.4 continue to monitor Status: Acute (6) Diabetes: Insulin-dependent type 2 days mellitus, moderate dose sliding scale Status: Acute Qualifiers: Chronic kidney disease stage: stage 3 (moderate) Chronic kidney disease stage 3 subtype: stage 3b (GFR 30-44) Diabetes mellitus complication detail: with chronic kidney disease Diabetes mellitus complication status: with kidney complications 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 Resolved C.Diff PCR : Negative # Blood in stool: Likely 2/2 to hemorrhoids.H&H Stable.Will continue to monitor. DVT prophylaxis: On warfarin CODE STATUS: Full code Disposition: Patient has been assigned to the long-term, will have to repeat prior authorization Attestations Medical Necessity Statement*: Patient requires hospitalization for V. tach, proceed with coronary angiogram Coding Level of Care Code Acute Barrel Assembly Inspector for Sosa Bates Diagnoses Acute on chronic congestive heart failure I50.23 Heart failure type: systolic Atrial fibrillation with RVR I48.91 Atherosclerotic heart disease of [place] coronary artery with unstable angina pectoris I25.110 [place] vs. transplanted heart: [place] heart Dyslipidemia E78.5 CKD (chronic kidney disease) N18.9 Diabetes E11.22; N18.32; Z79.4 Chronic kidney disease stage: stage 3 (moderate) Chronic kidney disease stage 3 subtype: stage 3b (GFR 30-44) Diabetes mellitus complication detail: with chronic kidney disease Diabetes mellitus complication status: with kidney complications Diabetes mellitus longterm insulin use: with local company intermodal truck driver use Diabetes mellitus type: type 2 Acute hypercapnic respiratory failure J96.02 NSTEMI (non-ST elevated myocardial infarction) I21.4 Nonsustained ventricular tachycardia I47.2 Altered mental status R41.82
--- NOTE | 2021-07-01 15:07 | PC.NURSE ---
patient able to transfer from chair to BSC with min assistance tolerated well
--- NOTE | 2021-07-01 16:06 | P.PN_ITS ---
Subjective Subjective: Interval history: Denies any complaint no chest pain. Awaiting daughter for the left heart cath tomorrow morning as she would like her to be here. Medications: Reviewed: Yes Medication Review Details: K supplement and spironolactone Vitals/I&O/Wt Last Vital Signs Temp 97.6 F 06/30/21 23:41 Pulse 75 07/01/21 14:00 Resp 11 L 07/01/21 13:45 BP 92/73 07/01/21 13:45 Pulse Ox 99 07/01/21 13:45 07/01/21 07/01/21 07/01/21 06:59 14:59 22:59 Intake Total 50 / 083.912 2696.4 / 1004.4 Output Total 900 / 900 Balance -850 / -130.560 7181.4 / 1004.4 Weight last 48 hrs Weight 343 lb 12.8 oz Physical Exam Narrative: EXAM NARRATIVE: GENERAL: Patient is alert, awake and oriented x3. Laying in the bed, she is comfortable NECK: No jugular vein distension. HEENT: No cyanosis. No icterus. No pallor. HEART: Regular S1 and S2. No murmur, rub or gallop. LUNGS: Inspiratory crackles bilaterally. ABDOMEN: Soft, nontender and nondistended. Positive bowel sounds. No guarding, rebound or tenderness. CENTRAL NERVOUS SYSTEM: Grossly nonfocal. EXTREMITIES: Lower extremities with trace edema bilaterally. Urinary Catheter Management^: Acevedo: Cath Placed During This Visit: yes, but has since been removed by the nurse Reason for Continuing Indwelling Catheter: Accurate Measurement of Urinary Output in Critically Ill Patients Urinary Catheter Date of Insertion: 06/28/21 Urinary Catheter Time of Insertion: 11:06 Date Urinary Catheter Removed: 06/27/21 Time Urinary Catheter Discontinued: 15:00 Data : 07/01/21 08:25 07/01/21 05:37 A&P Assessment and plan (1) NSTEMI (non-ST elevated myocardial infarction): Worsening of LV dysfunction to severely depressed 25% with nonsustained VT and large area of infarct with significant ischemia may at some point require further exploration of the left heart cath however patient is high risk for contrast-induced nephropathy leading to temporary or permanent dialysis and bleeding diathesis, patient is high risk for bleeding as well being on anticoagulation for atrial fibrillation. I have discussion with the patient she would like to Proceed with it. At this point her INR is 2.5 would like to further tune her up before proceeding with left heart cath. I will hold INR for now we will cover her with Lovenox. We will continue aspirin statin Plavix. I will further tomorrow may will diurese her little bit more we will continue to hold warfarin will check INR until unless it is below 1.7 we will not proceed with left heart cath. Patient has been explained again all risk benefit and already for the procedure she would like to proceed with it Continue to diurese with Lasix 40 mg IV. Recheck INR in the morning once below 1.7 we will proceed with a left heart cath most likely day after tomorrow I have detailed discussion with the patient and the family by bedside. Patient would like to be considered for coronary angiogram and would not like to accept just medical management. He understand all risk benefit and alternative for the procedure she understand risk for contrast-induced nephropathy leading to temporary permanent dialysis major minor bleed stroke heart failure respiratory failure worsening of congestive heart failure and intubation. She has requested that I could do her angiogram and requested to be done on Friday when her daughter will be here. We will therefore defer the angiogram till Friday. I have detailed discussion with her son daughter by bedside in her pres ence. They all understood clearly risk benefit and alternative for the procedure and would like to proceed with it. We will reassess patient again in the morning denies any chest pain. Appear to be euvolemic Status: Acute (2) Nonsustained ventricular tachycardia: No more VT noted Status: Acute (3) Acute on chronic congestive heart failure: Continue IV diuresis Status: Acute Qualifiers: Heart failure type: systolic Qualified Code(s): I50.23 - Acute on ch ronic systolic (congestive) heart failure (4) Atrial fibrillation with RVR: Continue to monitor INR Status: Acute Attestations Medical Necessity Statement*: Patient require continuation hospitalization for above defined care. Coding Level of Care Code Acute [employer] Financial Application Developer for [facility] Diagnoses NSTEMI (non-ST elevated myocardial infarction) I21.4 Nonsustained ventricular tachycardia I47.2 Acute on chronic congestive heart failure I50.23 Heart failure type: systolic Atrial fibrillation with RVR I48.91
[2021-07-01 16:32] LABS: Glucose Point of Care 155 mg/dL (70-110)
[2021-07-01] MEDS: nystatin powder 15 gm Btl 1 APPLIC TOPICAL (18:54)
--- NOTE | 2021-07-01 19:17 | PC.NURSE ---
Shift Note Frequent safety and comfort rounds continue. Orders and/or nursing care completed as indicated. Patient monitored for response to intervention and treatment(s). Education provided includes upcoming procedures. Patient and/or corporate sales 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 verbalized understanding. Will continue to monitor.
[2021-07-01] MEDS: atorvastatin 40 mg Tablet 80 MG PO (21:01)
[2021-07-01] MEDS: docusate sodium 100 mg Capsule PO (21:01)
[2021-07-01 21:11] LABS: Glucose Point of Care 206 mg/dL (70-110)
[2021-07-01] MEDS: enoxaparin 40 mg/0.4 mL Syringe SUBCUT (21:15)
[2021-07-02] VITALS (37 sets, daily range): BP systolic 87–143; BP diastolic 49–110; PULSE 63–157; RESP 9–30; TEMP 36.1; O2SAT 88–100
[2021-07-02 04:21] LABS: Basophils # 0.1 10^3/uL (0.0-0.1); Basophils % 0.8 %; Eosinophils # 0.5 10^3/uL (0.0-0.8); Eosinophils % 8.9 %; Hematocrit 30.3 % (37.0-47.0); Hemoglobin 9.2 g/dL (11.5-15.3); Lymphocytes % 34.4 %; Mean Corpuscular HGB Conc 30.4 g/dL (30.0-36.0); Mean Corpuscular Hemoglobin 30.2 pg (28.0-34.0); Mean Corpuscular Volume 99.3 fl (81-99); Mean Platelet Volume 12.2 fL (7.4-10.4); Monocytes # 0.9 10^3/uL (0.2-0.9); Monocytes % 14.3 %; Neutrophils # 2.44 10^3/uL (1.8-7.7); Neutrophils % 41.3 %; Nucleated Red Blood Cells % 0 %; Platelet Count 214 10^3/cmm (130-400); Red Blood Count 3.05 10^6/uL (4.1-5.3); Red Cell Distribution Width 16.3 % (12.1-15.1); White Blood Count 5.9 10^3/uL (4.0-10.0)
[2021-07-02 04:41] LABS: C Reactive Protein 28.6 mg/L (0.0-4.9); Magnesium 1.7 mg/dL (1.7-2.3); Phosphorus 2.8 mg/dL (2.5-4.5)
[2021-07-02 04:48] LABS: Procalcitonin 0.74 ng/mL (0-0.5)
[2021-07-02 05:00] LABS: Blood Urea Nitrogen 40 mg/dL (8-23); Calcium 7.8 mg/dL (8.5-10.5); Carbon Dioxide 25 mmol/L (22-29); Chloride 102 mmol/L (98-107); Glucose 86 mg/dL (65-115); Osmolality Calculated 295 mOsm/kg (285-295); Sodium 138 mmol/L (136-145)
[2021-07-02 05:08] LABS: NT Pro B Type Natriuretic Pept 30074 pg/mL (0-450)
[2021-07-02 05:11] LABS: Anion Gap 15.5 (5-19); Potassium 4.5 mmol/L (3.5-5.1)
[2021-07-02] MEDS: levothyroxine 200 mcg Tablet PO (06:01)
[2021-07-02] MEDS: levothyroxine 25 mcg Tablet PO (06:01)
[2021-07-02] MEDS: pantoprazole DR 40 mg Tablet PO (06:01)
[2021-07-02 07:10] LABS: Glucose Point of Care 100 mg/dL (70-110)
--- NOTE | 2021-07-02 07:27 | PM.PN ---
Subjective Subjective: Interval history: weak, sob, cp. no n/v/f/c/muñoz/d/leg pains. + lightheaded and dizzy when standing Medications: Reviewed: Yes Medication Review Details: Current Medications Acetaminophen (Acetaminophen 325 Mg Tablet) 650 mg PO Q6H PRN PRN Reason: Mild/Mod Pain Or Temp >/= 101 Aspirin (Aspirin 81 Mg Ec Tablet) 81 mg PO DAILY [facility] Last Admin: 07/01/21 09:50 Dose: 81 mg Documented by: Atorvastatin Calcium (Atorvastatin 40 Mg Tablet) 80 mg PO BEDTIME@20 [facility] Last Admin: 07/01/21 21:01 Dose: 80 mg Documented by: Calcitriol (Calcitriol 0.25 Mcg Capsule) 0.25 mcg PO DAILY@0800 [facility] Last Admin: 07/01/21 09:51 Dose: 0.25 mcg Documented by: Citalopram Hydrobromide (Citalopram 20 Mg Tablet) 10 mg PO DAILY@0800 [facility] Last Admin: 07/01/21 09:50 Dose: 10 mg Documented by: Clopidogrel Bisulfate (Clopidogrel 75 Mg Tablet) 75 mg PO DAILY@0800 [facility] Last Admin: 07/01/21 09:51 Dose: 75 mg Documented by: Dextrose (Dextrose 50% Syringe 50 Ml) 25 ml IVP ONCE PRN; Protocol PRN Reason: hypoglycemia protocol Dextrose (Dextrose 50% Syringe 50 Ml) 50 ml IVP PRN PRN; Protocol PRN Reason: hypoglycemia protocol Docusate Sodium (Docusate Sodium 100 Mg Capsule) 100 mg PO BEDTIME [facility] Last Admin: 07/01/21 21:01 Dose: 100 mg Documented by: Enoxaparin Sodium (Enoxaparin 40 Mg/0.4 Ml Syringe) 40 mg SUBCUT Q24H [facility] Last Admin: 07/01/21 21:15 Dose: 40 mg Documented by: Gabapentin (Gabapentin 100 Mg Capsule) 100 mg PO BID@0800,2000 [facility] Last Admin: 07/01/21 21:02 Dose: 100 mg Documented by: Heparin Sodium (Porcine) (Heparin 5,000 Unit/Ml Inj 1 Ml) 0 unit IV PRN PRN; Protocol PRN Reason: Heparin weight-base protocol Last Admin: 06/30/21 22:13 Dose: 1,800 unit Documented by: Dextrose (D5w) 500 mls @ 100 mls/hr IV ONCE PRN; Protocol PRN Reason: Adult Acute Hypoglycemia Prot Insulin Human Lispro (Insulin Lispro 100 Unit/1 Ml) 0 unit SUBCUT WM&BEDTIME [facility]; Protocol Last Admin: 07/01/21 21:03 Dose: 6 unit Documented by: Lanolin (Lanolin Oint 7 Gm) 1 applic TOPICAL PRN PRN PRN Reason: DRYNESS Levothyroxine Sodium (Levothyroxine 200 Mcg Tablet) 200 mcg PO DAILY@0500 [facility] Last Admin: 07/02/21 06:01 Dose: 200 mcg Documented by: Levothyroxine Sodium (Levothyroxine 25 Mcg Tablet) 25 mcg PO DAILY@0500 [facility] Last Admin: 07/02/21 06:01 Dose: 25 mcg Documented by: Metoprolol Tartrate (Metoprolol Tartrate 25 Mg Tablet) 25 mg PO BID@0900,2100 [facility] Last Admin: 07/01/21 21:17 Dose: 25 mg Documented by: Midodrine (Midodrine 5 Mg Tablet) 10 mg PO TID [facility] Last Admin: 07/01/21 21:19 Dose: Not Given Documented by: Nystatin (Nystatin Powder 15 Gm Btl) 1 applic TOPICAL BID [facility] Last Admin: 07/01/21 18:54 Dose: 1 dose Documented by: Ondansetron HCl (Ondansetron 2 Mg/Ml Sdv 2 Ml) 4 mg IVP Q8H PRN PRN Reason: vomiting, or N/V if npo Last Admin: 06/27/21 12:24 Dose: 4 mg Documented by: Ondansetron HCl (Ondansetron 2 Mg/Ml Sdv 2 Ml) 4 mg IVP Q2M PRN PRN Reason: NAUSEA Pantoprazole Sodium (Pantoprazole Dr 40 Mg Tablet) 40 mg PO QAM [facility] Last Admin: 07/02/21 06:01 Dose: 40 mg Documented by: Phenytoin (Phenytoin Er 100 Mg Capsule) 200 mg PO BID [facility] Last Admin: 07/01/21 18:17 Dose: 200 mg Documented by: Senna/Docusate Sodium (Sennosides-Docusate Tablet) [facility] [place] Last Admin: 07/02/21 06:04 Dose: Not Given Documented by: Warfarin Sodium (Warfarin 3 Mg Tablet) 1.5 mg PO DAILY@1400 [facility] Last Admin: 06/26/21 15:17 Dose: 1.5 mg Documented by: Vitals/I&O/Wt Last Vital Signs Temp 97.6 F 07/01/21 20:00 Pulse 63 07/02/21 03:20 Resp 18 07/02/21 03:20 BP 110/49 07/02/21 03:20 Pulse Ox 94 07/02/21 00:00 07/01/21 07/02/21 07/02/21 22:59 06:59 14:59 Intake Total 460 / 1464.4 0 / 1464.4 Output Total 800 / 800 0 / 800 Balance -340 / 664.4 0 / 664.4 Weight last 48 hrs Weight 155.945 kg Physical Exam Narrative: EXAM NARRATIVE: obese in bed, mild sob on nc 02 vs noted heent- nc/at, eomi neck no jvp lungs crackles b/l heart irreg irreg abd soft, nt, nd, + bs ext b/l edema neuro- a,a, o x 3 Urinary Catheter Management^: Acevedo: Cath Placed During This Visit: yes, but has since been removed by the nurse Reason for Continuing Indwelling Catheter: Accurate Measurement of Urinary Output in Critically Ill Patients Urinary Catheter Date of Insertion: 06/28/21 Urinary Catheter Time of Insertion: 11:06 Date Urinary Catheter Removed: 06/27/21 Time Urinary Catheter Discontinued: 15:00 Data : 07/02/21 03:50 07/02/21 03:50 A&P Additional A&P Information 1. Acute kidney injury, CKD stage 3b/ 4- baseline cr 1.8- 2.5 mg/dl from dm, htn, CRS. - renal function stable 2. Volume overload- furosemide per cardiology- held as for cardiac cath- however, appears sob- based on cath pressures- restart diuretics 3. Hyperkalemia: discontinue spironolactone, 1 dose oral kayexylate, low potasium diet 4. NSTEMI, Cardiomyopathy, EF 20%. -S/P stress test: Abnormal myocardial perfusion imaging with large sized infarct with significant shaina-infarct ischemia noted in left circumflex artery and RCA territory. LV systolic function is severely reduced. plan for cardiac catheterization today. - Patient aware of risk of AMANDA, possible need for dialysis soon 5. afib 6. Anemia, Hb 9.2- check iron studies 7. monitor ca, phos, pth seen and examine dw/ RN- telehealth visit Attestations Medical Necessity Statement*: chf, ckd, + CAD Time Spent in Patient Care: 16 - 35 minutes (>than 50% of time spent in counselling and/or direct pt care on unit). Coding Level of Care Code Acute Blasting Entryman for Sosa Bates
--- NOTE | 2021-07-02 07:38 | PC.SOCIAL ---
IMM update IMM updated with patient. Verbalized an understanding. Copy Pg 2 provided. Initialled, dated, timed, and placed in chart.
--- NOTE | 2021-07-02 07:55 | PC.NURSE ---
Pt lying in bed resting and talking to family. Resp even and non-labored no distress or sob noted. Pt had no c/o pain or discomfort at the present time. No needs voiced. Call light in reach.
--- NOTE | 2021-07-02 09:09 | PC.CHAP ---
Pastoral Care Encounter/Spiritual Assessment Type of Contact [] Declined colorist dyer visit [] Patient/Family/Request visit [] Outpatient visit [] Follow-up visit [] Physician referral [] Code/Alert [x] Routine visit [] Staff referral [] Actively dying [] Patient sleeping [x] Family support [] [] Out of room [] Palliative care [] [] Receiving care in room [] Pre-surgical visit [] Trauma [] Long length of stay [] ICU visit [] Other: Relational/Emotional Strength [] Patient feels connected with others/family/visitors/staff [] Distress [] Loneliness/isolation [] Abandonment Spirituality of Patient [] Person of Jennifer [] Attends Hinduism of their Jennifer [] Believes in Prayer [] Reads Bible or Congregational materials [] There are Spiritual issues to be addressed Claim Professional Interventions [x] Prayer [] Active listening [] Non-anxious presence [] Spiritual/emotional support [] Crisis/trauma care [] Spiritual counseling [] Bereavement support [] Provided bereavement packet [] Provided Bible/devotional materials [] Provided toy/stuffed animal, coloring book to patient or family member [] Provided Communion [] Anointing/Seligman [] Salvation [x] Completed spiritual assessment [] Other: Impact on Illness or Injury [] Angry [] Fearful [] Anxious [] Often cries [] Exhaustion [] Unable to work [] Unable to attend rastafari [] Unable to walk/stand [] Unable to read [] Unable to drive [] Unable to eat/drink [] Unable to sleep [] Unable to be with family [] Patient intubated [] Other: Summary breathing better.. family present.. good spirits Time spent with patient 10 min
[2021-07-02] MEDS: citalopram 20 mg Tablet 10 MG PO (09:31)
[2021-07-02] MEDS: midodrine 5 mg TABLET 10 MG PO ×3 (09:31→22:40)
[2021-07-02] MEDS: calcitriol 0.25 mcg Capsule PO (09:31)
[2021-07-02] MEDS: aspirin 81 mg EC Tablet PO (09:31)
[2021-07-02] MEDS: phenytoin ER 100 mg Capsule 200 MG PO ×2 (09:31→18:51)
[2021-07-02] MEDS: gabapentin 100 mg Capsule PO ×2 (09:32→22:43)
[2021-07-02] MEDS: clopidogrel 75 mg Tablet PO (09:32)
[2021-07-02] MEDS: metoprolol tartrate 25 mg Tablet PO ×2 (09:34→23:20)
--- NOTE | 2021-07-02 10:16 | ANES.PREANE2 ---
Pre-Anesthetic Assessment Pre-Anesthetic Assessment: Height/Weight: Height 1.7 m Weight 155.945 kg Temp Pulse Resp BP Pulse Ox 96.9 F L 99 16 108/66 94 07/02/21 08:00 07/02/21 09:00 07/02/21 09:00 07/02/21 08:00 07/02/21 09:00 Preop Diagnosis: ESRD with temporary dialysis catheter right internal jugular vein Was Beta Arsalan taken within 24 hours: Yes Social: Social History: No alcohol and No tobacco Exam: Pre-Anes Outpt Exam: alert, oriented x 3, clear to auscultation bilaterally and regular rate & rhythm Airway: Submandibular: WNL Cervical ROM: WNL MP: 2 Dentition: False History/ROS: No significant history except as noted and No significant complaints Pulmonary: Pulmonary: RODARTE, Sleep apnea and SOB CV/HEM: CV/HEM: Angina (Stable), Arrythmia, CAD, CHF, DVT, HTN, IN and Murmur (EF 20% Recent IN) : : Chronic renal Insufficiency Hepatic: Hepatic: None reported GI: GI: GERD Metabolic: Metabolic: DM, Hyperlipidemia and Morbid obesity Neuropsych: Neuropsych: Seizure Anesthetic Plan: ASA status: 4 Anesthesia: Anesthesia Evaluation and MAC Risk of > 500 ml blood loss (7ml/kg in children): No Meds/Allergies Current Medications: Current Medications Generic Name Dose Route Start Last Admin Trade Name Freq PRN Reason Stop Dose Admin Aspirin 81 mg 06/15/21 10:30 07/02/21 09:31 Aspirin 81 Mg Ec Tablet PO 81 mg DAILY [facility] Administration Atorvastatin Calci um 80 mg 06/14/21 20:00 07/01/21 21:01 Atorvastatin 40 Mg Tablet PO 80 mg BEDTIME@20 [facility] Administration Calcitriol 0.25 mcg 06/14/21 08:00 07/02/21 09:31 Calcitriol 0.25 Mcg Capsule PO 0.25 mcg DAILY@0800 [facility] Administration Citalopram Hydrobr omide 10 mg 06/14/21 08:00 07/02/21 09:31 Citalopram 20 Mg Tablet PO 10 mg DAILY@0800 [facility] Administration Clopidogrel Bisulf ate 75 mg 06/14/21 08:00 07/02/21 09:32 Clopidogrel 75 M g Tablet PO 75 mg DAILY@0800 [facility] Administration Docusate Sodium 100 mg 06/13/21 21:12 07/01/21 21:01 Docusate Sodium 100 Mg Capsule PO 100 mg BEDTIME [facility] Administration Enoxaparin Sodium 40 mg 07/01/21 21:00 07/01/21 21:15 Enoxaparin 40 Mg /0.4 Ml Syringe SUBCUT 40 mg Q24H [facility] Administration Gabapentin 100 mg 06/13/21 21:12 07/02/21 09:32 Gabapentin 100 M g Capsule PO 100 mg BID@0800,2000 [facility] Administration Heparin Sodium (Po rcine) 0 unit 06/30/21 21:28 06/30/21 22:13 Heparin 5,000 Un it/Ml Inj 1 Ml IV 1,800 unit PRN PRN Administration Heparin weight-ba se protocol Protocol Insulin Human Lisp ro 0 unit 06/13/21 21:12 07/02/21 09:20 Insulin Lispro 1 00 Unit/1 Ml SUBCUT Not Given WM&BEDTIME [facility] Protocol Levothyroxine Sodi um 200 mcg 06/14/21 05:00 07/02/21 06:01 Levothyroxine 20 0 Mcg Tablet PO 200 mcg DAILY@0500 [facility] Administration Levothyroxine Sodi um 25 mcg 06/14/21 05:00 07/02/21 06:01 Levothyroxine 25 Mcg Tablet PO 25 mcg DAILY@0500 [facility] Administration Metoprolol Tartrat e 25 mg 06/26/21 21:00 07/02/21 09:34 Metoprolol Tartr ate 25 Mg Tablet PO 25 mg BID@0900,2100 [facility] Administration Midodrine 10 mg 06/27/21 18:30 07/02/21 09:31 Midodrine 5 Mg T ablet PO 10 mg TID [facility] Administration Nystatin 1 applic 06/29/21 09:00 07/02/21 09:34 Nystatin Powder 15 Gm Btl TOPICAL Not Given BID [facility] Ondansetron HCl 4 mg 06/13/21 21:12 06/27/21 12:24 Ondansetron 2 Mg /Ml Sdv 2 Ml IVP 4 mg Q8H PRN Administration vomiting, or N/V if npo Pantoprazole Sodiu m 40 mg 06/14/21 06:00 07/02/21 06:[address] 40 Mg Tablet PO 40 mg QAM [facility] Administration Phenytoin 200 mg 06/14/21 09:00 07/02/21 09:31 Phenytoin Er 100 Mg Capsule PO 200 mg BID [facility] Administration Senna/Docusate Sod ium 1 tab 06/14/21 06:00 07/02/21 06:04 Sennosides-Docus ate Tablet PO Not Given QAM [facility] Warfarin Sodium 1.5 mg 06/16/21 14:00 06/26/21 15:17 Warfarin 3 Mg Ta blet PO 1.5 mg DAILY@1400 [facility] Administration PFSH Anesthesia PFSH: Medical History Afib Anemia Atrial fibrillation with RVR CAD (coronary artery disease) Chronic anticoagulation Eliquis CKD (chronic kidney disease) Congestive heart failure Diabetes Dyslipidemia Hematoma of left flank HTN (hypertension) Morbid obesity Morbid obesity PVD (peripheral vascular disease) 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) Status post insertion of drug-eluting stent into left anterior descending (LAD) artery Urine retention Venous stasis Surgical History History of ankle surgery History of cataract surgery History of cholecystectomy History of heart artery stent History of umbilical hernia repair S/P hemodialysis catheter insertion (11/22/20) Right internal jugular vein d/c 12/25/20 Family History Other Cancer Diabetes Social History Smoking and tobacco status: never smoked Alcohol intake: never Marital status: / Current occupational status: retired History of recent travel: No Data Anesthesia CBC & Chem 7: 07/02/21 03:50 07/02/21 03:50 Other Labs: Laboratory Results - last 48 hr 06/30/21 06/30/21 06/30/21 11:32 16:58 17:28 WBC RBC Hgb Hct MCV MCH MCHC RDW Plt Count 219 MPV Neut % (Auto) Lymph % (Auto) Finney % (Auto) Eos % (Auto) Baso % (Auto) Neut # (Auto) Lymph # (Auto) Finney # (Auto) Eos # (Auto) Baso # (Auto) Nucleated RBC % (auto) Nucleated RBCs # PT INR APTT Sodium Potassium Chloride Carbon Dioxide Anion Gap BUN Creatinine GFR Calculation Glucose POC Glucose 99 130 H Calculated Osmolality Calcium Phosphorus Magnesium C-Reactive Protein NT-Pro-B Natriuret Pep Procalcitonin 06/30/21 07/01/21 07/01/21 20:32 04:16 05:37 WBC RBC Hgb Hct MCV MCH MCHC RDW Plt Count MPV Neut % (Auto) Lymph % (Auto) Finney % (Auto) Eos % (Auto) Baso % (Auto) Neut # (Auto) Lymph # (Auto) Finney # (Auto) Eos # (Auto) Baso # (Auto) Nucleated RBC % (auto) Nucleated RBCs # PT INR APTT Sodium 137 Potassium 5.4 H Chloride 103 Carbon Dioxide 22 Anion Gap 17.4 BUN 41 H Creatinine 2.6 H GFR Calculation Not Reportable Glucose 145 H POC Glucose 167 H 185 H Calculated Osmolality 297 H Calcium 7.8 L Phosphorus Magnesium 1.8 C-Reactive Protein NT-Pro-B Natriuret Pep 17152 H Procalcitonin 07/01/21 07/01/21 07/01/21 06:40 08:25 08:25 WBC 6.9 RBC 3.39 L Hgb 10.2 L Hct 34.1 L MCV 100.6 H MCH 30.1 MCHC 29.9 L RDW 16.1 H Plt Count 216 MPV 12.0 H Neut % (Auto) 44.3 Lymph % (Auto) 33.6 Finney % (Auto) 13.9 Eos % (Auto) 6.8 Baso % (Auto) 1.0 Neut # (Auto) 3.07 Lymph # (Auto) 2.3 Finney # (Auto) 1.0 H Eos # (Auto) 0.5 Baso # (Auto) 0.1 Nucleated RBC % (auto) 0 Nucleated RBCs # 0.0 PT INR APTT Sodium Potassium Chloride Carbon Dioxide Anion Gap BUN Creatinine GFR Calculation Glucose POC Glucose 148 H Calculated Osmolality Calcium Phosphorus Magnesium Cancelled C-Reactive Protein NT-Pro-B Natriuret Pep Procalcitonin 07/01/21 07/01/21 07/01/21 08:25 13:20 16:28 WBC RBC Hgb Hct MCV MCH MCHC RDW Plt Count MPV Neut % (Auto) Lymph % (Auto) Finney % (Auto) Eos % (Auto) Baso % (Auto) Neut # (Auto) Lymph # (Auto) Finney # (Auto) Eos # (Auto) Baso # (Auto) Nucleated RBC % (auto) Nucleated RBCs # PT INR APTT > 250.0 H* 144.4 H Sodium Potassium Chloride Carbon Dioxide Anion Gap BUN Creatinine GFR Calculation Glucose POC Glucose 155 H Calculated Osmolality Calcium Phosphorus Magnesium C-Reactive Protein NT-Pro-B Natriuret Pep Procalcitonin 07/01/21 07/02/21 07/02/21 20:45 03:50 03:50 WBC 5.9 RBC 3.05 L Hgb 9.2 L Hct 30.3 L MCV 99.3 H MCH 30.2 MCHC 30.4 RDW 16.3 H Plt Count 214 MPV 12.2 H Neut % (Auto) 41.3 Lymph % (Auto) 34.4 Finney % (Auto) 14.3 Eos % (Auto) 8.9 Baso % (Auto) 0.8 Neut # (Auto) 2.44 Lymph # (Auto) 2.0 Finney # (Auto) 0.9 Eos # (Auto) 0.5 Baso # (Auto) 0.1 Nucleated RBC % (auto) 0 Nucleated RBCs # 0.0 PT 17.50 H INR 1.40 H APTT Sodium Potassium Chloride Carbon Dioxide Anion Gap BUN Creatinine GFR Calculation Glucose POC Glucose 206 H Calculated Osmolality Calcium Phosphorus Magnesium C-Reactive Protein NT-Pro-B Natriuret Pep Procalcitonin 07/02/21 07/02/21 07/02/21 03:50 03:50 07:07 WBC RBC Hgb Hct MCV MCH MCHC RDW Plt Count MPV Neut % (Auto) Lymph % (Auto) Finney % (Auto) Eos % (Auto) Baso % (Auto) Neut # (Auto) Lymph # (Auto) Finney # (Auto) Eos # (Auto) Baso # (Auto) Nucleated RBC % (auto) Nucleated RBCs # PT INR APTT Sodium 138 Potassium 4.5 Chloride 102 Carbon Dioxide 25 Anion Gap 15.5 BUN 40 H Creatinine 2.5 H GFR Calculation Not Reportable Glucose 86 POC Glucose 100 Calculated Osmolality 295 Calcium 7.8 L Phosphorus 2.8 Magnesium 1.7 C-Reactive Protein 28.6 H NT-Pro-B Natriuret Pep 56690 H Procalcitonin 0.74 H Cardiac Studies: Echocardiogram 06/14/21
[2021-07-02 10:59] LABS: Glucose Point of Care 124 mg/dL (70-110)
[2021-07-02] MEDS: FUROsemide 10 mg/mL SDV 10mL 60 MG IVP (11:12)
--- NOTE | 2021-07-02 11:34 | XACV_ITS ---
Exam Room: [facility] Ht: 170 cm Wt: 156 kg BSA: 2.81 m2 Gender: Female : 1945 Any Known Allergies: Other Exam Priority: Routine Procedure(s): Procedure Description: Diagnostic procedure Procedure Description: PCI procedure Procedure Description: Drug Eluting Coronary Stent Procedure Description: PTCA Procedure Description: Miscellaneous Procedure Description: ACT Procedure Description: Coronary Angiography Procedure Description: Pressure Wire Verónica MEYER; Diagnostic Cath Status: Elective PCI Status: Elective PCI Indication: Other Interventional Findings * For worsening of heart failure LV dysfunction and arrhythmia/ventricular tachycardia nonsustained patient underwent left heart cath since she has history of prior stent to the LAD. Left main did not show significant disease LAD has patent prior stents in the proximal segment. Obtuse marginal 1 has patent proximal stent mid obtuse marginal is moderate size with eccentric significant 80-85% calcified stenosis.-Obtuse marginal2 is small caliber and size vessel which has a 70% ostial stenosis. RCA does not have any significant stenosis.We decided to proceed with balloon angioplasty and drug-eluting stent placement of the obtuse marginal 1 in the mid segment. With somewhat difficulty by using guide liner along with 2 wire technique we were able to deliver the stent. It was dilated at high DOLORES for good approximation. Patient tolerated procedure well and transferred back to [facility] in a stable condition. Patient was on Levophed during the angiogram for hypotension. After Levophed she remained stable vital rios without any complication.. Recommendations * 1-Return to inpatient for close monitoring and routine cath care2-Risk factor modification for secondary prevention3-Statin and aspirin 81 mg life--long, if tolerated4-Continue Plavix 75mg p.o. daily for at least one year. We will assess at the end of six month again to continue if further or not5-Continue optimal medical management6-Follow up with Dr. Sanches in four weeks and your primary care in 10 days. Interventional RX Recommendation: PCI w/o planned CABG Diagnostic RX Recommendation: PCI w/o planned CABG Pressures Phase:Rest AO : 67 / 44 ( 51 ) @ 10:15:00 AM 93 / 52 ( 69 ) @ 10:16:00 AM 105 / 57 ( 74 ) @ 10:30:00 AM Clinical Evaluation EBL: 5mL-10mL Procedural Details Procedure Consent Obtained. Pre-Procedure Time Out. Identified patient by full name and date of as verbalized by the patient/guarantor. Does the consent match the physician's order: Yes. Accurate & Complete Informed Consent: Yes. Inpatient/Outpatient History & Physical on Chart: Yes. If H&P is completed, is and addenduem needed: No; If yes, is the addendum complete: N/A. Visualize and Verify Site with Patient/Guarantor: N/A. Relevant Radiology Images available: N/A. Pre-op teaching completed and patient verbalized understanding. The risks, benefits, and alternatives of sedation and/or procedure were discussed by physician. The patient agrees to continue. Procedure started. Litigation Legal Assistant Indications: LV Dysfunction, arrythmia, abnormal stress test. Chest Pain Symptom Assessment: Atypical Angina. Correct patient, site and procedure confirmed by cath team. PERRLA. Strong, equal hand transplant nurse bilaterally. Lungs clear x 5 lobes. IV Site on Arrival: 20 gauge in the left upper arm. IV Fluids: 0.9% NaCl at KVO. 0 mL infused prior to brine room laborer. Pre Procedural Pulses: bilateral dorsalis pedis was 1+. Pre Procedural Pulses: bilateral posterior tibial was 1+. Pre Procedural Pulses: bilateral brachial was 2+. Oxygen started at 2liters/min via nasal canula. Otf Scales anesthesiologist will be giving sedation medication and monitoring airway. Pt will be placed on bipap for procedure. bilateral groins was prepped with chloroprep then draped in the usual sterile fashion. Physician arrived. Equipment: 6F - Femoral. Cardiac Cath Pack. ACIST Manifold Kit Model BT 2000. Heparinized Saline (2 units/mL), 1000 mL bag. Kit, Micropuncture. IV Site on Arrival: 20 gauge in the right upper arm by Otf Scales from anesthesia. Baseline sample Acquired. HR: 96 BPM. Physician scrubbed in. Immediate Pre-Procedure Time Out. Correct Patient: Yes; Correct Procedure: Yes; Correct Site: Yes; Correct Patient Position: Yes; Correct Supplies: Yes; Dried Flammable Prep: N/A; Blood Products Available: N/A;. Lidocaine 1% infiltrated to the right groin. Levophed running at 0.5 mcg/min by Otf Scales. Arterial access obtained with micropuncture set. A 5 icelandic JL4 catheter in over wire. Catheter removed over the standard wire. A 5 icelandic JR4 catheter in over wire. Multiple views taken of left coronary artery. Multiple views taken of right coronary artery. Inventory is [facility] 6 FR XB 3.5 GUIDE. 6 icelandic XB 3.5 guide catheter was inserted over the wire. Next Jump OmniWire Pressure guide wire inserted through guide catheter to OM. Wire out. IFR measurement obtained of 0.80. MDT R LEENA 2.5x18 LUIS EDUARDO inserted over wire. Unable to cross lesion. Intact stent removed. Guideliner inserted for support. Darin guidewire was advanced through the guide catheter to lesion in the OM. MDT R LEENA 2.5x18 LUIS EDUARDO inserted over wire. Unable to cross lesion. Intact stent removed. Runthrough guidewire was advanced through the guide catheter to lesion in the OM. Inventory is [employer] [place] XT .014 190cm Str. Guidewire. Inflation number : 1 A AB MINI TREK 2.00X12 RX BALLOON was prepped and advanced across the 1st Ob Khadra , then inflated to 14 DOLORES for 0:07 seconds. Inflation number: 2 The AB MINI TREK 2.00X12 RX BALLOON was reinflated across the 1st Ob Khadra, to 14 DOLORES for 0:10 seconds. Balloon out. Results checked. Inflation Number : 3 A FIDELINA Garnica LEENA 2.5X26 LUIS EDUARDO -Lot Number# [id number] exp date 01/16/2024 was prepped and advanced across the 1st Ob Khadra. The stent was deployed at 14 DOLORES for 0:28 seconds. Inflation number: 4 The stent balloon was then re-inflated across the 1st Ob Khadra to 16 DOLORES for 0:13 seconds. Stent balloon and wire out. Results checked. Wire out. Guideliner out. ACT drawn. Results 298 seconds. Therapeutic limits - pre-heparin administration 90-150 seconds and monitoring heparin during a vascular procedure >250 seconds. Guide catheter out. A Right femoral angiogram was performed to determine safe placement of closure device. A Perclose (Barosense) was successful obtaining hemostatsis at the Right Femoral artery insertion site. Perclose placed without complications. No signs or symptoms of hematoma noted. Sterile dressing applied per usual sterile fashion. Physician scrubbed out. Post Procedure: Pulses reassessed and unchanged. PERRLA. Strong, equal hand transplant nurse bilaterally. No VTE prophylaxis required. [facility] Clinical Fraility Score: 6: Moderately Frail. Cardiovascular Instability: No. Medication's Wasted: Heparin = 1000 units. Post-op diagnosis: sign OM disease. Complications: none. Total IV fluids: 400 mL. Contrast type used: Visipaque 320 mgI/mL, 500 mL bottle. Manual pressure held until hemostasis was achieved. Sterile 4x4 and Op-site applied to the puncture site. No oozing or hematoma noted. Post sheath removal instructions were given and the patient verbalized understanding. Estimated blood loss: 5mL-10mL. Responsiveness - Normal response to verbal stimuli; alert and oriented, PERRLA. Airway - Unaffected, no intervention required; spontaneous ventilation. Circulation: W/N/L, pulses unchanged. Nausea/Vomiting: No. Procedure completed. Patient transferred by stretcher to CPRU. Vital chart was stopped. Access Site Site: Right Femoral artery Sheath Size: 6 Fr Hemostasis Method: Perclose (Barosense) Hemostasis Success: Successful Procedure Medications Start: 12:41 PM Stop: 12:41 PM Medication: Heparin Amount: 57596 units Route: I.V. I, the attending physician, have reviewed and verified all procedure medications. Yes, all medications given per verbal order History/Risk Factors Hypertension: Yes Dyslipidemia: Yes Peripheral Arterial Disease (PAD): Yes Myocardial Infarction (IA): No Obesity: Yes Renal Disease: No Tobacco Use: Never Prior Interventions PCI: Yes CABG: No Valve Surgery: No Date of PCI: 05/10/2015 Report Signatures Finalized by Ruddy Sanches MD on 07/03/2021 09:01 PM
--- NOTE | 2021-07-02 11:55 | W.PM.OPSUD ---
Surgery/Procedure H&P Update DATE OF PROCEDURE: July 02, 2021 DATE H&P PERFORMED: 11/16/20 H&P UPDATE INFORMATION: I have reviewed H&P completed within last 30 days, I have examined patient prior to procedure and No changes to prior documentation PREOP DIAGNOSIS: recurrent heart failure difficult to control with optimal medical regimen, PLANNED PROCEDURE: recurrent heart failure difficult to control with optimal medical regimen, arrhythmia, severe LV dysfunction, abnormal stress test Left heart cath/PCI if indicated, for sedation please see anesthesia note, patient has been explained all risk benefit and alternative for the procedure she understand high risk for contrast-induced nephropathy leading to temporary permanent dialysis, high risk for shock heart failure pulmonary edema intubation stroke major minor bleed leading to urgent emergent bypass or vascular surgery. Patient understand risk for and stroke. She would like to proceed with it. She is not opting for medical management only. Patient and family including son and 2 daughters are in agreement with it. We will proceed with it.
--- NOTE | 2021-07-02 13:52 | PM.PN ---
Subjective Subjective: Interval history: Post PCI mid obtuse marginal significant lesion by IFR 0.80, it was treated with drug-eluting stent. Medications: Reviewed: Yes Medication Review Details: Current Medications Acetaminophen (Acetaminophen 325 Mg Tablet) 650 mg PO Q6H PRN PRN Reason: Mild/Mod Pain Or Temp >/= 101 Aspirin (Aspirin 81 Mg Ec Tablet) 81 mg PO DAILY [facility] Last Admin: 07/01/21 09:50 Dose: 81 mg Documented by: Atorvastatin Calcium (Atorvastatin 40 Mg Tablet) 80 mg PO BEDTIME@20 [facility] Last Admin: 07/01/21 21:01 Dose: 80 mg Documented by: Calcitriol (Calcitriol 0.25 Mcg Capsule) 0.25 mcg PO DAILY@0800 [facility] Last Admin: 07/01/21 09:51 Dose: 0.25 mcg Documented by: Citalopram Hydrobromide (Citalopram 20 Mg Tablet) 10 mg PO DAILY@0800 [facility] Last Admin: 07/01/21 09:50 Dose: 10 mg Documented by: Clopidogrel Bisulfate (Clopidogrel 75 Mg Tablet) 75 mg PO DAILY@0800 [facility] Last Admin: 07/01/21 09:51 Dose: 75 mg Documented by: Dextrose (Dextrose 50% Syringe 50 Ml) 25 ml IVP ONCE PRN; Protocol PRN Reason: hypoglycemia protocol Dextrose (Dextrose 50% Syringe 50 Ml) 50 ml IVP PRN PRN; Protocol PRN Reason: hypoglycemia protocol Docusate Sodium (Docusate Sodium 100 Mg Capsule) 100 mg PO BEDTIME [facility] Last Admin: 07/01/21 21:01 Dose: 100 mg Documented by: Enoxaparin Sodium (Enoxaparin 40 Mg/0.4 Ml Syringe) 40 mg SUBCUT Q24H [facility] Last Admin: 07/01/21 21:15 Dose: 40 mg Documented by: Gabapentin (Gabapentin 100 Mg Capsule) 100 mg PO BID@0800,2000 [facility] Last Admin: 07/01/21 21:02 Dose: 100 mg Documented by: Heparin Sodium (Porcine) (Heparin 5,000 Unit/Ml Inj 1 Ml) 0 unit IV PRN PRN; Protocol PRN Reason: Heparin weight-base protocol Last Admin: 06/30/21 22:13 Dose: 1,800 unit Documented by: Dextrose (D5w) 500 mls @ 100 mls/hr IV ONCE PRN; Protocol PRN Reason: Adult Acute Hypoglycemia Prot Insulin Human Lispro (Insulin Lispro 100 Unit/1 Ml) 0 unit SUBCUT WM&BEDTIME [facility]; Protocol Last Admin: 07/01/21 21:03 Dose: 6 unit Documented by: Lanolin (Lanolin Oint 7 Gm) 1 applic TOPICAL PRN PRN PRN Reason: DRYNESS Levothyroxine Sodium (Levothyroxine 200 Mcg Tablet) 200 mcg PO DAILY@0500 [facility] Last Admin: 07/02/21 06:01 Dose: 200 mcg Documented by: Levothyroxine Sodium (Levothyroxine 25 Mcg Tablet) 25 mcg PO DAILY@0500 [facility] Last Admin: 07/02/21 06:01 Dose: 25 mcg Documented by: Metoprolol Tartrate (Metoprolol Tartrate 25 Mg Tablet) 25 mg PO BID@0900,2100 [facility] Last Admin: 07/01/21 21:17 Dose: 25 mg Documented by: Midodrine (Midodrine 5 Mg Tablet) 10 mg PO TID [facility] Last Admin: 07/01/21 21:19 Dose: Not Given Documented by: Nystatin (Nystatin Powder 15 Gm Btl) 1 applic TOPICAL BID [facility] Last Admin: 07/01/21 18:54 Dose: 1 dose Documented by: Ondansetron HCl (Ondansetron 2 Mg/Ml Sdv 2 Ml) 4 mg IVP Q8H PRN PRN Reason: vomiting, or N/V if npo Last Admin: 06/27/21 12:24 Dose: 4 mg Documented by: Ondansetron HCl (Ondansetron 2 Mg/Ml Sdv 2 Ml) 4 mg IVP Q2M PRN PRN Reason: NAUSEA Pantoprazole Sodium (Pantoprazole Dr 40 Mg Tablet) 40 mg PO [facility] Last Admin: 07/02/21 06:01 Dose: 40 mg Documented by: Phenytoin (Phenytoin Er 100 Mg Capsule) 200 mg PO BID [facility] Last Admin: 07/01/21 18:17 Dose: 200 mg Documented by: Senna/Docusate Sodium (Sennosides-Docusate Tablet) [facility] Admin: 07/02/21 06:04 Dose: Not Given Documented by: Warfarin Sodium (Warfarin 3 Mg Tablet) 1.5 mg PO DAILY@1400 [facility] Last Admin: 06/26/21 15:17 Dose: 1.5 mg Documented by: Vitals/I&O/Wt Last Vital Signs Temp 97.0 F L 07/02/21 12:00 Pulse 102 H 07/02/21 12:00 Resp 25 H 07/02/21 12:00 BP 108/69 07/02/21 12:00 Pulse Ox 92 07/02/21 11:24 07/01/21 07/02/21 07/02/21 22:59 06:59 14:59 Intake Total 460 / 1464.4 0 / 1464.4 Output Total 800 / 800 0 / 800 Balance -340 / 664.4 0 / 664.4 Weight last 48 hrs Weight 343 lb 12.8 oz Physical Exam Narrative: EXAM NARRATIVE: GENERAL: Patient is sleepy we are weaning her off from sedation NECK: No jugular vein distension. HEENT: No cyanosis. No icterus. No pallor. HEART: Regular S1 and S2. No murmur, rub or gallop. LUNGS: Inspiratory crackles bilaterally. ABDOMEN: Soft, nontender and nondistended. Positive bowel sounds. No guarding, rebound or tenderness. CENTRAL NERVOUS SYSTEM: Grossly nonfocal. EXTREMITIES: Lower extremities with trace edema bilaterally. Urinary Catheter Management^: Acevedo: Cath Placed During This Visit: yes, but has since been removed by the nurse Reason for Continuing Indwelling Catheter: Accurate Measurement of Urinary Output in Critically Ill Patients Urinary Catheter Date of Insertion: 06/28/21 Urinary Catheter Time of Insertion: 11:06 Date Urinary Catheter Removed: 06/27/21 Time Urinary Catheter Discontinued: 15:00 Data : 07/02/21 03:50 07/02/21 03:50 A&P Assessment and plan (1) NSTEMI (non-ST elevated myocardial infarction): Worsening of LV dysfunction to severely depressed 25% with nonsustained VT and large area of infarct with significant ischemia may at some point require further exploration of the left heart cath however patient is high risk for contrast-induced nephropathy leading to temporary or permanent dialysis and bleeding diathesis, patient is high risk for bleeding as well being on anticoagulation for atrial fibrillation. I have discussion with the patient she would like to Proceed with it. At this point her INR is 2.5 would like to further tune her up before proceeding with left heart cath. I will hold INR for now we will cover her with Lovenox. We will continue aspirin statin Plavix. I will further tomorrow may will diurese her little bit more we will continue to hold warfarin will check INR until unless it is below 1.7 we will not proceed with left heart cath. Patient has been explained again all risk benefit and already for the procedure she would like to proceed with it Continue to diurese with Lasix 40 mg IV. Recheck INR in the morning once below 1.7 we will proceed with a left heart cath most likely day after tomorrow I have detailed discussion with the patient and the family by bedside. Patient would like to be considered for coronary angiogram and would not like to accept just medical management. He understand all risk benefit and alternative for the procedure she understand risk for contrast-induced nephropathy leading to temporary permanent dialysis major minor bleed stroke heart failure respiratory failure worsening of congestive heart failure and intubation. She has requested that I could do her angiogram and requested to be done on Friday when her daughter will be here. We will therefore defer the angiogram till Friday. I have detailed discussion with her son daughter by bedside in her presence. They all understood clearly risk benefit and alternative for the procedure and would like to proceed with it. We will reassess patient again in the morning denies any chest pain. Appear to be euvolemic Patient was given IV Lasix 60 mg for due to being slightly wet. She underwent left heart cath noted to have patent prior LAD proximal obtuse marginal stents. Left main and RCA has luminal irregularity without significant disease. Mid segment of obtuse marginal 1 was noted to be significantly stenotic. It was further confirmed with IFR which showed it in the ischemic region of 0.80. It was treated with balloon angioplasty followed by drug-eluting stent postdilated with high-pressure stent balloon. Right groin was closed with Perclose. Patient tolerated procedure well due to borderline low blood pressure and low ejection fraction she was kept on pressors during our procedure as because of propofol she was dropping her blood pressure. I am planning to wean her off. BiPAP was also used. Status: Acute (2) Nonsustained ventricular tachycardia: Possible due to ischemia in obtuse marginal region hopefully it will resolve. Status: Acute (3) Acute on chronic congestive heart failure: I will continue diuresis. Status: Acute Qualifiers: Heart failure type: systolic Qualified Code(s): I50.23 - Acute on chronic systolic (congestive) heart failure (4) Atrial fibrillation with RVR: Continue to monitor INR Status: Acute (5) CKD (chronic kidney disease): We will continue to monitor contrast-induced nephropathy we will check kidney function tomorrow morning. Status: Acute Attestations Medical Necessity Statement*: Patient require continuation of hospitalization for above defined care in the ICU post PCI Coding Level of Care Code Established Pt Acute Showroom Executive Director for Sosa Bates Patient Type Established History Comprehensive Exam Comprehensive Medical Decision Making High Complexity Diagnoses NSTEMI (non-ST elevated myocardial infarction) I21.4 Nonsustained ventricular tachycardia I47.2 Acute on chronic congestive heart failure I50.23 Heart failure type: systolic Atrial fibrillation with RVR I48.91 CKD (chronic kidney disease) N18.9
--- NOTE | 2021-07-02 16:00 | PC.NURSE ---
Pt returned to room 111-2 from laboratory mechanical technician at approximately 1530. Upon arrival pts drsg to right groin soaked through with blood. Drsg was removed and new pressure drsg applied. Drsg continues to be dry and intact. No swelling or hematoma noted. Distal pulses in right foot checked and with doppler. Pt had no c/o pain or discomfort at the present time. No needs voiced. Call light in reach. Will continue to monitor.
--- NOTE | 2021-07-02 16:40 | PC.OT ---
OT tx on hold today. Pt having cardiac cath and will be going to ICU after procedure. CROWDER to consult OTR regarding reassessment due to status change.
[2021-07-02 16:59] LABS: Glucose Point of Care 171 mg/dL (70-110)
--- NOTE | 2021-07-02 18:03 | PM.PN ---
Subjective Subjective: Interval history: Patient was seen this morning, denies any shortness of breath ,chest pain. s/p pci to mid OM ( significant lesion by IFR 0.80 ) Medications: Reviewed: Yes Vitals/I&O/Wt Last Vital Signs Temp 97.0 F L 07/02/21 12:00 Pulse 118 H 07/02/21 16:00 Resp 12 07/02/21 16:00 BP 96/67 07/02/21 16:00 Pulse Ox 100 07/02/21 16:00 07/02/21 07/02/21 07/02/21 06:59 14:59 22:59 Intake Total 0 / 1464.4 Output Total 0 / 800 Balance 0 / 664.4 Weight last 48 hrs Weight 155.945 kg Physical Exam Const: COMMON NORMALS: patient oriented x3 HENMT: COMMON NORMALS: normocephalic and atraumatic HEAD & SCALP: normocephalic and atraumatic Resp: COMMON NORMALS: clear to auscultation bilaterally EFFORT & INSPECTION: Yes symmetric chest movement AUSCULTATION: clear to auscultation bilaterally Cardio: COMMON NORMALS: regular rate, regular rhythm, S1 normal heart sound present, S2 normal heart sound present, No gallops present (Cardio), No murmurs present (Cardio), No rub (Cardio) and Peripheral pulses 2+ throughout RATE: regular rate RHYTHM: regular rhythm HEART SOUNDS: S1 normal heart sound present and S2 normal heart sound present PERIPHERAL PULSES: Peripheral pulses 2+ throughout GI: COMMON NORMALS: Normal to inspection, nondistended, normoactive bowel sounds present, Soft to palpation, non-tender, No hepatosplenomegaly present and no masses AUSCULTATION: Yes normoactive bowel sounds PALPATION: Yes Soft to palpation and Yes No hepatosplenomegaly present RECTAL EXAM: deferred Extremity: COMMON NORMALS: no clubbing, cyanosis or edema and no pedal edema NARRATIVE EXTREMITY EXAM: 2+ B/L PITTING EDEMA IN BOTH LOWER EXTREMITY Neuro: COMMON NORMALS: patient oriented x3 Urinary Catheter Management^: Acevedo: Cath Placed During This Visit: yes, but has since been removed by the nurse Reason for Continuing Indwelling Catheter: Accurate Measurement of Urinary Output in Critically Ill Patients Urinary Catheter Date of Insertion: 06/28/21 Urinary Catheter Time of Insertion: 11:06 Date Urinary Catheter Removed: 06/27/21 Time Urinary Catheter Discontinued: 15:00 Data : 07/02/21 03:50 07/02/21 03:50 A&P Assessment and plan (1) Acute on chronic congestive heart failure: Acute on chronic systolic CHF exacerbation plan: - S/P stress test: Abnormal myocardial perfusion imaging with large sized infarct with significant shaina-infarct ischemia noted in left circumflex artery and RCA territory. LV systolic function is severely reduced. -Cardiac 2D echo LV systolic function is severely reduced with EF of 20 to 25%. Right ventricle is hypokinetic. Left atrium is enlarged. Mitral and aortic valves are thickened. Mild mitral regurgitation. Mild pulmonic regurgitation. Trace tricuspid regurgitation. Compared to prior echocardiogram from 01/21/2021, LV systolic function has decreased further -Creatinine 2.5, 40mg IVP Lasix?there are plans on coronary angiography -Fluid restrictions less than 1200 cc -After discussing the risks and benefits of coronary angiography, patient accepted the risks, will proceed with coronary angiography tommorow -Continue aspirin, Plavix, metoprolol, -Coumadin on hold, INR 1.46, heparin drip for anticoag Acute hypercarbic respiratory failure -Likely secondary to nonsustained V. tach, pulmonary edema -Receiving Lasix as needed -Continue BiPAP as needed -Continue Zosyn for possible aspiration pneumonia, aspiration pneumonia coverage TIFFANY on CKD-Creatinine 2.5, urine output 650 cc, nephrology on consult, resume Lasix -initially as he has been on IV Lasix. 40 twice daily. -Lisinopril 2.5 mg p.o. daily has been discontinued given worsening serum creatinine. -Spironolactone 12.5 mg p.o. daily -continue aspirin, Plavix, beta-efe -fluid restriction <1200cc Lasix as needed Nonsustained V. tach -Resulting in acute respiratory failure, altered mental status -Acute respiratory failure, improving on BiPAP, PCO2 has improved, can transition back to nasal cannula -Altered mental status, resolved, back to baseline -Etiology concerning for underlying cardiac etiology given positive stress test, and echocardiogram findings, proceeding with coronary angiography -Continue telemetry monitoring NSTEMI, concerning for underlying cardiac etiology -Baseline troponin I109, 6-hour 101.9, delta -7.1, BNP over 24,000 -1 dose Lasix today -Continue Plavix, continue beta-efe, continue statin -Telemetry monitoring -Serial EKGs, serial troponins -Proceed with coronary angiogram -As INR is elevated 1.4, proceed with angiogram -Switch to him to heparin drip in the interim Atrial fibrillation, Coumadin on hold, switch to heparin drip in the interim Confirmed with patient that she remains a full code Status: Acute Qualifiers: Heart failure type: systolic Qualified Code(s): I50.23 - Acute on chronic systolic (congestive) heart failure (2) Atrial fibrillation with RVR: Atrial fibrillation: Currently rate is well controlled continue metoprolol 50 mg twice a day, pharmacy dose Coumadin, INR 1.68 Status: Acute (3) Atherosclerotic heart disease of [place] coronary artery with unstable angina pectoris: CAD, continue statin, Plavix Status: Chronic Qualifiers: [place] vs. transplanted heart: [place] heart Qualified Code(s): I25.110 - Atherosclerotic heart disease of [place] coronary artery with unstable angina pectoris (4) Dyslipidemia: Status: Chronic (5) CKD (chronic kidney disease): CKD, creatinine 2.4 continue to monitor Status: Acute (6) Diabetes: Insulin-dependent type 2 days mellitus, moderate dose sliding scale Status: Acute Qualifiers: Chronic kidney disease stage: stage 3 (moderate) Chronic kidney disease stage 3 subtype: stage 3b (GFR 30-44) Diabetes mellitus complication detail: with chronic kidney disease Diabetes mellitus complication status: with kidney complications 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: with nursing home use Diabetes mellitus type: type 2 Qualified Code(s): E11.22 - Type 2 diabetes mellitus with diabetic chronic kidney disease; N18.32 - Chronic kidney disease, stage 3b; 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 Resolved C.Diff PCR : Negative # Blood in stool: Likely 2/2 to hemorrhoids.H&H Stable.Will continue to monitor. DVT prophylaxis: On warfarin CODE STATUS: Full code Disposition: Patient has been assigned to the correction, will have to repeat prior authorization Attestations Medical Necessity Statement*: Patient needs to be in hospital for management of coronary artery disease status post PCI. Coding Level of Care Code Acute Bioinformatics Support Specialist for Chg Fwd Exam Detailed Diagnoses Acute on chronic congestive heart failure I50.23 Heart failure type: systolic Atrial fibrillation with RVR I48.91 Atherosclerotic heart disease of [place] coronary artery with unstable angina pectoris I25.110 [place] vs. 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
[2021-07-02] MEDS: insulin lispro 100 unit/1 mL SUBCUT (18:50)
[2021-07-02 21:14] LABS: Glucose Point of Care 196 mg/dL (70-110)
[2021-07-02 22:36] LABS: Glucose Point of Care 142 mg/dL (70-110)
[2021-07-02] MEDS: enoxaparin 40 mg/0.4 mL Syringe SUBCUT (22:42)
[2021-07-02] MEDS: atorvastatin 40 mg Tablet 80 MG PO (22:43)
[2021-07-02] MEDS: FUROsemide 10 mg/mL SDV 4mL 40 MG IVP (22:43)
[2021-07-03] MEDS: warfarin 5 mg Tablet PO (01:15)
[2021-07-03 04:00] VITALS: BP 116/72; PULSE 100; RESP 14; TEMP 36.3; O2SAT 100
[2021-07-03 05:03] VITALS: PULSE 80
[2021-07-03] MEDS: levothyroxine 25 mcg Tablet PO (05:48)
[2021-07-03] MEDS: pantoprazole DR 40 mg Tablet PO (05:49)
[2021-07-03] MEDS: levothyroxine 200 mcg Tablet PO (05:49)
[2021-07-03 06:12] LABS: Basophils # 0.1 10^3/uL (0.0-0.1); Basophils % 0.9 %; Eosinophils # 0.6 10^3/uL (0.0-0.8); Eosinophils % 8.9 %; Hematocrit 29.7 % (37.0-47.0); Hemoglobin 9.1 g/dL (11.5-15.3); Lymphocytes # 2.1 10^3/uL (0.8-4.8); Mean Corpuscular HGB Conc 30.6 g/dL (30.0-36.0); Mean Corpuscular Hemoglobin 30.2 pg (28.0-34.0); Mean Corpuscular Volume 98.7 fl (81-99); Mean Platelet Volume 12.3 fL (7.4-10.4); Monocytes # 0.9 10^3/uL (0.2-0.9); Monocytes % 13.2 %; Neutrophils # 3.19 10^3/uL (1.8-7.7); Neutrophils % 46.4 %; Nucleated Red Blood Cells % 0 %; Platelet Count 209 10^3/cmm (130-400); Red Blood Count 3.01 10^6/uL (4.1-5.3); Red Cell Distribution Width 16.4 % (12.1-15.1); White Blood Count 6.9 10^3/uL (4.0-10.0)
[2021-07-03 06:23] LABS: INR 1.27 (0.8-1.2)
[2021-07-03 06:32] LABS: Calcium 7.9 mg/dL (8.5-10.5)
[2021-07-03 06:33] LABS: C Reactive Protein 26.9 mg/L (0.0-4.9); Magnesium 1.7 mg/dL (1.7-2.3); Phosphorus 3.2 mg/dL (2.5-4.5)
[2021-07-03 06:41] LABS: Procalcitonin 0.65 ng/mL (0-0.5)
[2021-07-03 06:54] LABS: Alanine Aminotransferase 11 U/L (0-33); Albumin Level 2.5 g/dL (3.5-5.2); Alkaline Phosphatase 158 IU/L (35-105); Blood Urea Nitrogen 36 mg/dL (8-23); Calcium 7.9 mg/dL (8.5-10.5); Carbon Dioxide 24 mmol/L (22-29); Chloride 104 mmol/L (98-107); Globulin 3.3 g/dL (1.3-4.6); Glucose 94 mg/dL (65-115); Osmolality Calculated 298 mOsm/kg (285-295); Sodium 140 mmol/L (136-145); Total Bilirubin 0.3 mg/dL (0.15-1.2); Total Protein 5.8 g/dL (6.6-8.7)
[2021-07-03 06:55] LABS: Anion Gap 16.4 (5-19); Aspartate Amino Transferase 39 U/L (0-32); Potassium 4.4 mmol/L (3.5-5.1)
[2021-07-03 07:01] LABS: NT Pro B Type Natriuretic Pept 28968 pg/mL (0-450)
[2021-07-03 07:02] LABS: Glucose Point of Care 127 mg/dL (70-110)
[2021-07-03 07:21] LABS: Ferritin 469 ng/mL (15-150); Iron 56 ug/dL (37-145); Percent Saturation 34.1 % (20-50); Total Iron Binding Capacity 164 mcg/dl; Unsaturated Iron Binding 108 ug/dL (112-347)
[2021-07-03 08:22] VITALS: BP 100/63; PULSE 98; RESP 17; O2SAT 100
[2021-07-03] MEDS: citalopram 20 mg Tablet 10 MG PO (09:17)
[2021-07-03] MEDS: metoprolol tartrate 25 mg Tablet PO (09:18)
[2021-07-03] MEDS: clopidogrel 75 mg Tablet PO (09:18)
[2021-07-03] MEDS: phenytoin ER 100 mg Capsule 200 MG PO (09:18)
[2021-07-03] MEDS: aspirin 81 mg EC Tablet PO (09:18)
[2021-07-03] MEDS: calcitriol 0.25 mcg Capsule PO (09:20)
[2021-07-03 09:22] VITALS: PULSE 83; O2SAT 95
[2021-07-03] MEDS: gabapentin 100 mg Capsule PO (09:23)
[2021-07-03] MEDS: midodrine 5 mg TABLET 10 MG PO (09:24)
--- NOTE | 2021-07-03 12:09 | PM.DCS ---
Discharge Providers Date of Admission: 06/13/21 18:15 Date of Discharge: July 03, 2021 Attending Provider at Admission: Delgado Ramos MD Attending Provider at Discharge: Rohit Person MD Primary Care Provider: Pascual Kay MD Diagnoses at Discharge Discharge Diagnosis (1) Acute on chronic congestive heart failure: Status: Acute Qualifiers: Heart failure type: systolic Qualified Code(s): I50.23 - Acute on chronic systolic (congestive) heart failure (2) Atrial fibrillation with RVR: Status: Acute (3) Atherosclerotic heart disease of [place] coronary artery with unstable angina pectoris: Status: Chronic Qualifiers: [place] vs. 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 care home use Diabetes mellitus type: type 2 Qualified Code(s): E11.22 - Type 2 diabetes mellitus with diabetic chronic kidney disease; N18.32 - Chronic kidney disease, stage 3b; Z79.4 - longterm (current) use of insulin (7) Acute hypercapnic respiratory failure: Status: Acute (8) NSTEMI (non-ST elevated myocardial infarction): Status: Acute (9) Nonsustained ventricular tachycardia: Status: Acute (10) Altered mental status: Status: Acute Reason for Visit Reason for Visit: RESP DISTRESS Hospital Course Hospital Course Carole Lee is a 75 year old female with past medical history of atrial fibrillation on Coumadin, history of chronic UTIs, ESBL, hypothyroidism, CAD status post stenting x2 on Plavix, insulin-dependent type 2 diabetes mellitus, history of EF with diminished ejection fraction 35%, who presents [facility] due to worsening shortness of breath. Patient was admitted to [facility] for acute on chronic systolic CHF exacerbation, NSTEMI, she underwent s/p stress test which was abnormal with large sized infarct with significant shaina-infarct ischemia noted in left circumflex artery and RCA,2D echo LV systolic function is severely reduced with EF of 20 to 25%. Right ventricle is hypokinetic. Left atrium is enlarged. Mitral and aortic valves are thickened. Mild mitral regurgitation. Mild pulmonic regurgitation. Trace tricuspid regurgitation. Compared to prior echocardiogram from 01/21/2021, LV systolic function has decreased further. Initially she was kept on IV diuresis, to which she responded well, her shortness of breath and bilateral lower extremity edema was improving, though she did develop TIFFANY on CKD stage III, initial plan was to continue with medical management and discharge her to a [facility] and let her follow cardiology as an outpatient, but on the day of discharge she did develop some nonsustained V. tach, and had transient loss of consciousness, when cardiology was reconsulted, and it was decided that it would be prudent to take her for coronary angiogram,she ended up getting pci to mid OM ( significant lesion by IFR 0.80 ), she has been continued on Plavix, warfarin, for A. fib, aspirin has been discontinued, statin and beta-efe has been continued. With regards to her TIFFANY nephrology was on board, at the time of discharge she was at her baseline serum creatinine She will continue to follow with Dr. Hendricks as an outpatient. Bumex has been continued on discharge 2 mg p.o. daily. During this hospital stay patient was also empirically kept on Zosyn for possible underlying pneumonia. For atrial fibrillation she has been continued on beta-efe, heart rate was pretty well controlled, At the time of discharge, she did not complain any chest pain shortness of breath, she was euvolemic, hemodynamically stable. Patient responded well to above medical management and is being discharged in stable condition to fci. She will continue to follow with primary care physician as well as cardiology as outpatient. Physical Exam Const: COMMON NORMALS: patient oriented x3 HENMT: COMMON NORMALS: normocephalic and atraumatic HEAD & SCALP: normocephalic and atraumatic Resp: COMMON NORMALS: clear to auscultation bilaterally EFFORT & INSPECTION: Yes symmetric chest movement AUSCULTATION: clear to auscultation bilaterally Cardio: COMMON NORMALS: regular rate, regular rhythm, S1 normal heart sound present, S2 normal heart sound present, No gallops present (Cardio), No murmurs present (Cardio), No rub (Cardio) and Peripheral pulses 2+ throughout RATE: regular rate RHYTHM: regular rhythm HEART SOUNDS: S1 normal heart sound present and S2 normal heart sound present PERIPHERAL PULSES: Peripheral pulses 2+ throughout GI: COMMON NORMALS: Normal to inspection, nondistended, normoactive bowel sounds present, Soft to palpation, non-tender, No hepatosplenomegaly present and no masses AUSCULTATION: Yes normoactive bowel sounds PALPATION: Yes Soft to palpation and Yes No hepatosplenomegaly present RECTAL EXAM: deferred Extremity: COMMON NORMALS: no clubbing, cyanosis or edema and no pedal edema Neuro: COMMON NORMALS: patient oriented x3 Urinary Catheter Management^: Acevedo: Cath Placed During This Visit: yes, but has since been removed by the nurse Reason for Continuing Indwelling Catheter: Accurate Measurement of Urinary Output in Critically Ill Patients Urinary Catheter Date of Insertion: 06/28/21 Urinary Catheter Time of Insertion: 11:06 Date Urinary Catheter Removed: 06/27/21 Time Urinary Catheter Discontinued: 15:00 Discharge Data Data Completed and Pending: Completed Studies During Hospitalization Category Date Time Status CT head wo con* 7 0450 Stat Cat Scan 06/27/21 12:34 Completed Sestamibi Stress Test Request Routi ne Exams 06/17/21 09:34 Draft XR chest 1V cole ble [id number] Routine Exams 06/27/21 15:07 Completed XR chest 1V cole ble [id number] Routine Exams 06/28/21 07:00 Completed XR chest 1V cole ble [id number] Urgent Exams 06/13/21 11:47 Completed NM tobi perf SPECT r/s* [id number] Routin e Nuc Med 06/18/21 09:34 Completed CV. 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 request for service Routin e Exams 07/02/21 11:34 Taken Basic Metabolic P lillian AM LABS Lab 07/04/21 04:00 Ordered C Reactive Protei n AM LABS Lab 07/04/21 04:00 Ordered COVID OZH [[place] virus PCR] Routine Lab 07/03/21 10:58 Ordered Complete Blood Co unt w/Auto AM LABS Lab 07/04/21 04:00 Ordered Complete Blood Co unt w/Auto AM LABS Lab 07/04/21 04:00 Ordered Complete Blood Co unt w/Auto AM LABS Lab 07/05/21 04:00 Ordered Comprehensive Met abolic Panel AM LA BS Lab 07/04/21 04:00 Ordered Comprehensive Met abolic Panel AM LA BS Lab 07/05/21 04:00 Ordered Magnesium AM LABS Lab 07/04/21 04:00 Ordered Magnesium AM LABS Lab 07/04/21 04:00 Ordered Magnesium AM LABS Lab 07/05/21 04:00 Ordered NT Pro B Type Niurka riuretic Pept QAM Lab 07/04/21 06:00 Ordered Phosphorus AM LAB S Lab 07/04/21 04:00 Ordered Phosphorus AM LAB S Lab 07/04/21 04:00 Ordered Phosphorus AM LAB S Lab 07/05/21 04:00 Ordered Procalcitonin AM LABS Lab 07/04/21 04:00 Ordered Vitamin D 1,25 Di hydroxy Routine Lab 07/02/21 08:19 Received Labs from last 24 hours 07/03/21 07/03/21 07/03/21 06:29 05:45 05:45 WBC RBC Hgb Hct MCV MCH MCHC RDW Plt Count MPV Neut % (Auto) Lymph % (Auto) [place] % (Auto) Eos % (Auto) Baso % (Auto) Neut # (Auto) Lymph # (Auto) [place] # (Auto) Eos # (Auto) Baso # (Auto) Nucleated RBC % (a uto) Nucleated RBCs # PT 16.30 H INR 1.27 H A-a O2 Gradient Sodium Potassium Chloride Carbon Dioxide Anion Gap BUN Creatinine GFR Calculation Glucose POC Glucose 127 H Calculated Osmolal ity Calcium Phosphorus Magnesium Iron TIBC % Saturation Unsat Iron Binding Ferritin Total Bilirubin AST ALT Alkaline Phosphata se C-Reactive Protein NT-Pro-B Natriuret Pep Total Protein Albumin Globulin Procalcitonin PTH Intact 95.0 H Calcium (PTH Intac t) 7.9 L 07/03/21 07/03/21 07/03/21 05:45 05:45 05:45 WBC 6.9 RBC 3.01 L Hgb 9.1 L Hct 29.7 L MCV 98.7 MCH 30.2 MCHC 30.6 RDW 16.4 H Plt Count 209 MPV 12.3 H Neut % (Auto) 46.4 Lymph % (Auto) 30.0 [place] % (Auto) 13.2 Eos % (Auto) 8.9 Baso % (Auto) 0.9 Neut # (Auto) 3.19 Lymph # (Auto) 2.1 [place] # (Auto) 0.9 Eos # (Auto) 0.6 Baso # (Auto) 0.1 Nucleated RBC % (a uto) 0 Nucleated RBCs # 0.0 PT INR A-a O2 Gradient Sodium 140 Potassium 4.4 Chloride 104 Carbon Dioxide 24 Anion Gap 16.4 BUN 36 H Creatinine 2.3 H GFR Calculation Not Reportable Glucose 94 POC Glucose Calculated Osmolal ity 298 H Calcium 7.9 L Phosphorus 3.2 Magnesium 1.7 Iron 56 TIBC 164 % Saturation 34.1 Unsat Iron Binding 108 L Ferritin 469 H Total Bilirubin 0.3 AST 39 H ALT 11 Alkaline Phosphata se 158 H C-Reactive Protein 26.9 H NT-Pro-B Natriuret Pep 06608 H Total Protein 5.8 L Albumin 2.5 L Globulin 3.3 Procalcitonin 0.65 H PTH Intact Calcium (PTH Intac t) 07/02/21 07/02/21 07/02/21 22:30 21:10 16:56 WBC RBC Hgb Hct MCV MCH MCHC RDW Plt Count MPV Neut % (Auto) Lymph % (Auto) [place] % (Auto) Eos % (Auto) Baso % (Auto) Neut # (Auto) Lymph # (Auto) [place] # (Auto) Eos # (Auto) Baso # (Auto) Nucleated RBC % (a uto) Nucleated RBCs # PT INR A-a O2 Gradient Sodium Potassium Chloride Carbon Dioxide Anion Gap BUN Creatinine GFR Calculation Glucose POC Glucose 142 H 196 H 171 H Calculated Osmolal ity Calcium Phosphorus Magnesium Iron TIBC % Saturation Unsat Iron Binding Ferritin Total Bilirubin AST ALT Alkaline Phosphata se C-Reactive Protein NT-Pro-B Natriuret Pep Total Protein Albumin Globulin Procalcitonin PTH Intact Calcium (PTH Intac t) 06/30/21 08:58 WBC RBC Hgb Hct MCV MCH MCHC RDW Plt Count MPV Neut % (Auto) Lymph % (Auto) [place] % (Auto) Eos % (Auto) Baso % (Auto) Neut # (Auto) Lymph # (Auto) [place] # (Auto) Eos # (Auto) Baso # (Auto) Nucleated RBC % (a uto) Nucleated RBCs # PT INR A-a O2 Gradient Not Reportable Sodium Potassium Chloride Carbon Dioxide Anion Gap BUN Creatinine GFR Calculation Glucose POC Glucose Calculated Osmolal ity Calcium Phosphorus Magnesium Iron TIBC % Saturation Unsat Iron Binding Ferritin Total Bilirubin AST ALT Alkaline Phosphata se C-Reactive Protein NT-Pro-B Natriuret Pep Total Protein Albumin Globulin Procalcitonin PTH Intact Calcium (PTH Intac t) Vitals: Last Vital Signs Temp 97.3 F L 07/03/21 04:00 Pulse 83 07/03/21 09:22 Resp 14 07/03/21 04:00 BP 116/72 07/03/21 04:00 Pulse Ox 95 07/03/21 09:22 Discharge Plan Discharge Patient Disposition: Xfer [facility] Condition: Stable Prescriptions: New spironolactone 25 mg Tablet 12.5 mg PO DAILY 30 Days Qty: 30 RF: 0 Jantoven 3 mg Tablet 1.5 mg PO DAILY@1400 30 Days Qty: 30 RF: 0 Klor-Con 10 10 mEq tablet extended release 20 meq PO DAILY 30 Days Qty: 60 RF: 0 Protonix 40 mg tablet,delayed release (DR/EC) 40 mg PO DAILY Qty: 30 RF: 0 Continued gabapentin 100 mg capsule 100 mg PO BID@0800,2000 RF: 0 levothyroxine 200 mcg tablet 225 mcg PO DAILY@0500 RF: 0 clopidogrel 75 mg tablet 75 mg PO DAILY@0800 RF: 0 calcitriol 0.25 mcg capsule 0.25 mcg PO DAILY@0800 RF: 0 atorvastatin 80 mg Tablet 80 mg PO BEDTIME@20 RF: 0 Enema Disposable 19-7 gram/118 mL Enema [address] DAILY PRN (Reason: Constipation) RF: 0 citalopram 10 mg Tablet 10 mg PO DAILY@0800 RF: 0 docusate sodium 100 mg capsule 100 mg PO BEDTIME RF: 0 bumetanide 2 mg tablet 2 mg PO QAM RF: 0 Senna-S 8.6-50 mg Tablet 1 tab PO QAM RF: 0 meclizine 12.5 mg Tablet 12.5 mg PO QAM RF: 0 phenytoin sodium extended 100 mg capsule 200 mg PO BID RF: 0 pantoprazole 40 mg tablet,delayed release (DR/EC) 40 mg PO QAM RF: 0 Novolog Flexpen U-100 Insulin 100 unit/mL (3 mL) insulin pen See Rx Instructions .ROUTE .COMPLEX RF: 0 potassium chloride 10 mEq tablet,ER particles/crystals 10 meq PO QAM RF: 0 metoprolol tartrate 25 mg tablet 25 mg PO BID RF: 0 folic acid 2 cap PO BEDTIME RF: 0 mupirocin 2 % ointment 1 applic topical BID PRN (Reason: UNKNOWN) RF: 0 Changed Levemir FlexTouch U-100 Insuln 100 unit/mL (3 mL) insulin pen 5 unit SUBCUT BEDTIME Qty: 0 RF: 0 Discontinued Jardiance 10 mg tablet 10 mg PO DAILY RF: 0 warfarin 1 mg tablet 0.5 mg PO QAM RF: 0 Discharge Orders: Discharge Order (Routine); Ordered 07/03/21 Ordered By: Delgado Ramos Referrals: [facility] [Outside] [facility] Home Care ([facility]) [Outside] (You have been accepted to [facility]. They will be contacting you about a time to admit you to their services. If you have any questions please call them at [phone].) Dderick Hendricks MD [Referring] - 4-7 days Pascual Kay MD [Primary Care Provider] - Laury Silver FNP [Nurse Practitioner] - 07/03/21 9:45 am Discharge Diet: Cardiac Discharge Activity: Resume usual activity Patient Instructions: Spironolactone (By mouth), Warfarin (By mouth), Aspirin (By mouth), Opioid Safety Activity Restrictions/Additional Instructions: -Continue Coumadin 1.5 mg daily, recheck INR tomorrow -Please have patient follow-up with cardiology in 1 week -Continue Bumex 2 mg daily, creatinine on discharge 2.9, monitor urine output, monitor creatinine -Recheck creatinine tomorrow, recheck K tommorow -If creatinine continues to upward trend, stop the Bumex -please have patient follow-up with Dr. Hendricks Discharge Attestations Time Spent in Discharge Care*: less than 30 min Specific Discharge Activities: educating patient, educating and/or supporting family/caregiver, discussing with pcp/other providers, discussing with case reviewer/social workers/dc planners, documenting/other paperwork and evaluating patient/reviewing data Status at Discharge: Cognitive status at discharge: cognitively intact, Behavioral status at discharge: cooperative, Functional status at discharge: independent ambulation Overall status at discharge: patient is back to baseline Quality Metrics Clinical Quality Measures During this hospital stay, did patient experience: None Coding Level of Care Code Acute Chg DC note Diagnoses Acute on chronic congestive heart failure I50.23 Heart failure type: systolic Atrial fibrillation with RVR I48.91 Atherosclerotic heart disease of [place] coronary artery with unstable angina pectoris I25.110 [place] vs. transplanted heart: [place] heart Dyslipidemia E78.5 CKD (chronic kidney disease) N18.9 Diabetes E11.22; N18.32; Z79.4 Chronic kidney disease stage: stage 3 (moderate) Chronic kidney disease stage 3 subtype: stage 3b (GFR 30-44) Diabetes mellitus complication detail: with chronic kidney disease Diabetes mellitus complication status: with kidney complications Diabetes mellitus care home insulin use: with care home use Diabetes mellitus type: type 2 Acute hypercapnic respiratory failure J96.02 NSTEMI (non-ST elevated myocardial infarction) I21.4 Nonsustained ventricular tachycardia I47.2 Altered mental status R41.82
[2021-07-03 13:48] VITALS: BP 104/66; PULSE 94; RESP 20; O2SAT 100
[2021-07-03 14:03] VITALS: BP 104/66; PULSE 94; RESP 20; O2SAT 100
[2021-07-03 14:03] LABS: Adenovirus Not Detected (NOT DETECT); Chlamydia Pneumoniae Not Detected (NOT DETECT); Coronavirus 229E,HKU1,NL63,OC4 Not Detected (NOT DETECT); Human Metapneumovirus Not Detected (NOT DETECT); Human Rhinovirus/Enterovirus Not Detected (NOT DETECT); Influenza A Not Detected (NOT DETECT); Influenza A H1 Not Detected (NOT DETECT); Influenza A H1-2009 Not Detected (NOT DETECT); Influenza A H3 Not Detected (NOT DETECT); Influenza B Not Detected (NOT DETECT); Mycoplasma Pneumoniae Not Detected (NOT DETECT); Parainfluenza Virus Type 1 Not Detected (NOT DETECT); Parainfluenza Virus Type 2 Not Detected (NOT DETECT); Parainfluenza Virus Type 3 Not Detected (NOT DETECT); Parainfluenza Virus Type 4 Not Detected (NOT DETECT); Respiratory Syncytial Virus A Not Detected (NOT DETECT); Respiratory Syncytial Virus B Not Detected (NOT DETECT); SARS-COV-2 Not Detected (NOT DETECT)
--- NOTE | 2021-07-03 14:04 | PC.NURSE ---
Discharge Note Patient discharged to [facility] via long-term transport accompanied by long-term staff. Discharge instructions reviewed with patient and/or international account 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. Mobile pharmacy medications and/or prescriptions provided. Belongings/home medications returned.
--- NOTE | 2021-07-03 14:24 | P.PN_ITS ---
Subjective Subjective: Interval history: Status post PCI to her please monitor for significant lesion measured by IFR. Overall doing better denies any complaint denies chest pain shortness of breath is improving creatinine has also been improved Medications: Reviewed: Yes Medication Review Details: Current Medications Acetaminophen (Acetaminophen 325 Mg Tablet) 650 mg PO Q6H PRN PRN Reason: Mild/Mod Pain Or Temp >/= 101 Aspirin (Aspirin 81 Mg Ec Tablet) 81 mg PO DAILY [facility] Last Admin: 07/01/21 09:50 Dose: 81 mg Documented by: Atorvastatin Calcium (Atorvastatin 40 Mg Tablet) 80 mg PO BEDTIME@20 [facility] Last Admin: 07/01/21 21:01 Dose: 80 mg Documented by: Calcitriol (Calcitriol 0.25 Mcg Capsule) 0.25 mcg PO DAILY@0800 [facility] Last Admin: 07/01/21 09:51 Dose: 0.25 mcg Documented by: Citalopram Hydrobromide (Citalopram 20 Mg Tablet) 10 mg PO DAILY@0800 [facility] Last Admin: 07/01/21 09:50 Dose: 10 mg Documented by: Clopidogrel Bisulfate (Clopidogrel 75 Mg Tablet) 75 mg PO DAILY@0800 [facility] Last Admin: 07/01/21 09:51 Dose: 75 mg Documented by: Dextrose (Dextrose 50% Syringe 50 Ml) 25 ml IVP ONCE PRN; Protocol PRN Reason: hypoglycemia protocol Dextrose (Dextrose 50% Syringe 50 Ml) 50 ml IVP PRN PRN; Protocol PRN Reason: hypoglycemia protocol Docusate Sodium (Docusate Sodium 100 Mg Capsule) 100 mg PO BEDTIME [facility] Last Admin: 07/01/21 21:01 Dose: 100 mg Documented by: Enoxaparin Sodium (Enoxaparin 40 Mg/0.4 Ml Syringe) 40 mg SUBCUT Q24H [facility] Last Admin: 07/01/21 21:15 Dose: 40 mg Documented by: Gabapentin (Gabapentin 100 Mg Capsule) 100 mg PO BID@0800,2000 [facility] Last Admin: 07/01/21 21:02 Dose: 100 mg Documented by: Heparin Sodium (Porcine) (Heparin 5,000 Unit/Ml Inj 1 Ml) 0 unit IV PRN PRN; Protocol PRN Reason: Heparin weight-base protocol Last Admin: 06/30/21 22:13 Dose: 1,800 unit Documented by: Dextrose (D5w) 500 mls @ 100 mls/hr IV ONCE PRN; Protocol PRN Reason: Adult Acute Hypoglycemia Prot Insulin Human Lispro (Insulin Lispro 100 Unit/1 Ml) 0 unit SUBCUT WM&BEDTIME [facility]; Protocol Last Admin: 07/01/21 21:03 Dose: 6 unit Documented by: Lanolin (Lanolin Oint 7 Gm) 1 applic TOPICAL PRN PRN PRN Reason: DRYNESS Levothyroxine Sodium (Levothyroxine 200 Mcg Tablet) 200 mcg PO DAILY@0500 [facility] Last Admin: 07/02/21 06:01 Dose: 200 mcg Documented by: Levothyroxine Sodium (Levothyroxine 25 Mcg Tablet) 25 mcg PO DAILY@0500 [facility] Last Admin: 07/02/21 06:01 Dose: 25 mcg Documented by: Metoprolol Tartrate (Metoprolol Tartrate 25 Mg Tablet) 25 mg PO BID@0900,2100 [facility] Last Admin: 07/01/21 21:17 Dose: 25 mg Documented by: Midodrine (Midodrine 5 Mg Tablet) 10 mg PO TID [facility] Last Admin: 07/01/21 21:19 Dose: Not Given Documented by: Nystatin (Nystatin Powder 15 Gm Btl) 1 applic TOPICAL BID [facility] Last Admin: 07/01/21 18:54 Dose: 1 dose Documented by: Ondansetron HCl (Ondansetron 2 Mg/Ml Sdv 2 Ml) 4 mg IVP Q8H PRN PRN Reason: vomiting, or N/V if npo Last Admin: 06/27/21 12:24 Dose: 4 mg Documented by: Ondansetron HCl (Ondansetron 2 Mg/Ml Sdv 2 Ml) 4 mg IVP Q2M PRN PRN Reason: NAUSEA Pantoprazole Sodium (Pantoprazole Dr 40 Mg Tablet) 40 mg PO QAM [facility] Last Admin: 07/02/21 06:01 Dose: 40 mg Documented by: Phenytoin (Phenytoin Er 100 Mg Capsule) 200 mg PO BID [facility] Last Admin: 07/01/21 18:17 Dose: 200 mg Documented by: Senna/Docusate Sodium (Sennosides-Docusate Tablet) [facility] [place] Admin: 07/02/21 06:04 Dose: Not Given Documented by: Warfarin Sodium (Warfarin 3 Mg Tablet) 1.5 mg PO DAILY@1400 [facility] Last Admin: 06/26/21 15:17 Dose: 1.5 mg Documented by: Vitals/I&O/Wt Last Vital Signs Temp 97.3 F L 07/03/21 04:00 Pulse 94 07/03/21 14:03 Resp 20 H 07/03/21 14:03 BP 104/66 07/03/21 14:03 Pulse Ox 100 07/03/21 14:03 07/02/21 07/03/21 07/03/21 22:59 06:59 14:59 Intake Total 0 / 0 200 / 200 480 / 480 Output Total 550 / 550 400 / 950 Balance -550 / -550 -200 / -750 480 / 480 Physical Exam Narrative: EXAM NARRATIVE: GENERAL: Patient is alert awake oriented x3 NECK: No jugular vein distension. HEENT: No cyanosis. No icterus. No pallor. HEART: Regular S1 and S2. No murmur, rub or gallop. LUNGS: Inspiratory crackles bilaterally. ABDOMEN: Soft, nontender and nondistended. Positive bowel sounds. No guarding, rebound or tenderness. CENTRAL NERVOUS SYSTEM: Grossly nonfocal. EXTREMITIES: Lower extremities with trace edema bilaterally. Urinary Catheter Management^: Acevedo: Cath Placed During This Visit: yes, but has since been removed by the nurse Reason for Continuing Indwelling Catheter: Accurate Measurement of Urinary Output in Critically Ill Patients Urinary Catheter Date of Insertion: 06/28/21 Urinary Catheter Time of Insertion: 11:06 Date Urinary Catheter Removed: 06/27/21 Time Urinary Catheter Discontinued: 15:00 Data : 07/03/21 05:45 07/03/21 05:45 A&P Assessment and plan (1) NSTEMI (non-ST elevated myocardial infarction): Worsening of LV dysfunction to severely depressed 25% with nonsustained VT and large area of infarct with significant ischemia may at some point require further exploration of the left heart cath however patient is high risk for contrast-induced nephropathy leading to temporary or permanent dialysis and bleeding diathesis, patient is high risk for bleeding as well being on anticoagulation for atrial fibrillation. I have discussion with the patient she would like to Proceed with it. At this point her INR is 2.5 would like to further tune her up before proceeding with left heart cath. I will hold INR for now we will cover her with Lovenox. We will continue aspirin statin Plavix. I will further tomorrow may will diurese her little bit more we will continue to hold warfarin will check INR until unless it is below 1.7 we will not proceed with left heart cath. Patient has been explained again all risk benefit and already for the procedure she would like to proceed with it Continue to diurese with Lasix 40 mg IV. Recheck INR in the morning once below 1.7 we will proceed with a left heart cath most likely day after tomorrow I have detailed discussion with the patient and the family by bedside. Patient would like to be considered for coronary angiogram and would not like to accept just medical management. He understand all risk benefit and alternative for the procedure she understand risk for contrast-induced nephropathy leading to temporary permanent dialysis major minor bleed stroke heart failure respiratory failure worsening of congestive heart failure and intubation. She has requested that I could do her angiogram and requested to be done on Friday when her daughter will be here. We will therefore defer the angiogram till Fri. I have detailed discussion with her son daughter by bedside in her presence. They all understood clearly risk benefit and alternative for the procedure and would like to proceed with it. We will reassess patient again in the morning denies any chest pain. Appear to be euvolemic Patient was given IV Lasix 60 mg for due to being slightly wet. She underwent left heart cath noted to have patent prior LAD proximal obtuse marginal stents. Left main and RCA has luminal irregularity without significant disease. Mid segment of obtuse marginal 1 was noted to be significantly stenotic. It was further confirmed with IFR which showed it in the ischemic region of 0.80. It was treated with balloon angioplasty followed by drug-eluting stent postdilated with high-pressure stent balloon. Right groin was closed with Perclose. Patient tolerated procedure well due to borderline low blood pressure and low ejection fraction she was kept on pressors during our procedure as because of propofol she was dropping her blood pressure. I am planning to wean her off. BiPAP was also used. On today's visit patient appeared to be stable from a cardiovascular perspective we will continue Plavix and warfarin will DC aspirin for high risk for bleeding, continue Protonix. Status: Acute (2) Nonsustained ventricular tachycardia: Appear to be stable no more ventricular tachycardia continue current regimen Status: Acute (3) Acute on chronic congestive heart failure: Continue diuretics appear to be euvolemic Status: Acute Qualifiers: Heart failure type: systolic Qualified Code(s): I50.23 - Acute on chronic systolic (congestive) heart failure (4) Atrial fibrillation with RVR: Will optimize warfarin for INR with a goal of 2-3 Status: Acute (5) CKD (chronic kidney disease): Appear to be stable, slightly and proved to 2.3, continue to monitor. Status: Acute Attestations Medical Necessity Statement*: From a cardiovascular perspective patient can be discharged home Coding Level of Care Code Established Pt Acute Concrete Technician for Chg Fwd Patient Type Established History Detailed Exam Detailed Medical Decision Making Moderate Complexity Diagnoses NSTEMI (non-ST elevated myocardial infarction) I21.4 Nonsustained ventricular tachycardia I47.2 Acute on chronic congestive heart failure I50.23 Heart failure type: systolic Atrial fibrillation with RVR I48.91 CKD (chronic kidney disease) N18.9
--- NOTE | 2021-07-03 14:48 | PM.PN ---
Subjective Subjective: Interval history: Carole is comfortable today with no acute complaints. Status post stent placement. No evidence of contrast nephropathy at this time. Some mild edema in the lower extremities, no shortness of breath at rest. No uremic symptoms. Medications: Reviewed: Yes Medication Review Details: Current Medications Acetaminophen (Acetaminophen 325 Mg Tablet) 650 mg PO Q6H PRN PRN Reason: Mild/Mod Pain Or Temp >/= 101 Aspirin (Aspirin 81 Mg Ec Tablet) 81 mg PO DAILY [facility] Last Admin: 07/01/21 09:50 Dose: 81 mg Documented by: Atorvastatin Calcium (Atorvastatin 40 Mg Tablet) 80 mg PO BEDTIME@20 [facility] Last Admin: 07/01/21 21:01 Dose: 80 mg Documented by: Calcitriol (Calcitriol 0.25 Mcg Capsule) 0.25 mcg PO DAILY@0800 [facility] Last Admin: 07/01/21 09:51 Dose: 0.25 mcg Documented by: Citalopram Hydrobromide (Citalopram 20 Mg Tablet) 10 mg PO DAILY@0800 [facility] Last Admin: 07/01/21 09:50 Dose: 10 mg Documented by: Clopidogrel Bisulfate (Clopidogrel 75 Mg Tablet) 75 mg PO DAILY@0800 [facility] Last Admin: 07/01/21 09:51 Dose: 75 mg Documented by: Dextrose (Dextrose 50% Syringe 50 Ml) 25 ml IVP ONCE PRN; Protocol PRN Reason: hypoglycemia protocol Dextrose (Dextrose 50% Syringe 50 Ml) 50 ml IVP PRN PRN; Protocol PRN Reason: hypoglycemia protocol Docusate Sodium (Docusate Sodium 100 Mg Capsule) 100 mg PO BEDTIME [facility] Last Admin: 07/01/21 21:01 Dose: 100 mg Documented by: Enoxaparin Sodium (Enoxaparin 40 Mg/0.4 Ml Syringe) 40 mg SUBCUT Q24H [facility] Last Admin: 07/01/21 21:15 Dose: 40 mg Documented by: Gabapentin (Gabapentin 100 Mg Capsule) 100 mg PO BID@0800,2000 [facility] Last Admin: 07/01/21 21:02 Dose: 100 mg Documented by: Heparin Sodium (Porcine) (Heparin 5,000 Unit/Ml Inj 1 Ml) 0 unit IV PRN PRN; Protocol PRN Reason: Heparin weight-base protocol Last Admin: 06/30/21 22:13 Dose: 1,800 unit Documented by: Dextrose (D5w) 500 mls @ 100 mls/hr IV ONCE PRN; Protocol PRN Reason: Adult Acute Hypoglycemia Prot Insulin Human Lispro (Insulin Lispro 100 Unit/1 Ml) 0 unit SUBCUT WM&BEDTIME [facility]; Protocol Last Admin: 07/01/21 21:03 Dose: 6 unit Documented by: Lanolin (Lanolin Oint 7 Gm) 1 applic TOPICAL PRN PRN PRN Reason: DRYNESS Levothyroxine Sodium (Levothyroxine 200 Mcg Tablet) 200 mcg PO DAILY@0500 [facility] Last Admin: 07/02/21 06:01 Dose: 200 mcg Documented by: Levothyroxine Sodium (Levothyroxine 25 Mcg Tablet) 25 mcg PO DAILY@0500 [facility] Last Admin: 07/02/21 06:01 Dose: 25 mcg Documented by: Metoprolol Tartrate (Metoprolol Tartrate 25 Mg Tablet) 25 mg PO BID@0900,2100 [facility] Last Admin: 07/01/21 21:17 Dose: 25 mg Documented by: Midodrine (Midodrine 5 Mg Tablet) 10 mg PO TID [facility] Last Admin: 07/01/21 21:19 Dose: Not Given Documented by: Nystatin (Nystatin Powder 15 Gm Btl) 1 applic TOPICAL BID [facility] Last Admin: 07/01/21 18:54 Dose: 1 dose Documented by: Ondansetron HCl (Ondansetron 2 Mg/Ml Sdv 2 Ml) 4 mg IVP Q8H PRN PRN Reason: vomiting, or N/V if npo Last Admin: 06/27/21 12:24 Dose: 4 mg Documented by: Ondansetron HCl (Ondansetron 2 Mg/Ml Sdv 2 Ml) 4 mg IVP Q2M PRN PRN Reason: NAUSEA Pantoprazole Sodium (Pantoprazole Dr 40 Mg Tablet) 40 mg PO QAM [facility] Last Admin: 07/02/21 06:01 Dose: 40 mg Documented by: Phenytoin (Phenytoin Er 100 Mg Capsule) 200 mg PO BID [facility] Last Admin: 07/01/21 18:17 Dose: 200 mg Documented by: Senna/Docusate Sodium (Sennosides-Docusate Tablet) [facility] [place] Last Admin: 07/02/21 06:04 Dose: Not Given Documented by: Warfarin Sodium (Warfarin 3 Mg Tablet) 1.5 mg PO DAILY@1400 [facility] Last Admin: 06/26/21 15:17 Dose: 1.5 mg Documented by: Vitals/I&O/Wt Last Vital Signs Temp 97.3 F L 07/03/21 04:00 Pulse 94 07/03/21 14:03 Resp 20 H 07/03/21 14:03 BP 104/66 07/03/21 14:03 Pulse Ox 100 07/03/21 14:03 07/02/21 07/03/21 07/03/21 22:59 06:59 14:59 Intake Total 0 / 0 200 / 200 480 / 480 Output Total 550 / 550 400 / 950 Balance -550 / -550 -200 / -750 480 / 480 Physical Exam Narrative: EXAM NARRATIVE: Constitutional: Awake, comfortable HEENT: Wet mucosa, no jvp, non icteric Lungs: Bilaterally clear without discernible wheeze, rales in all lung zones CVS: S1 S2, no murmurs Abdo: Soft, BS ok Ext 4: 2-3+ edema, peripheral perfusion with no cyanosis Neurological: Grossly non-focal Urinary Catheter Management^: Acevedo: Cath Placed During This Visit: yes, but has since been removed by the nurse Reason for Continuing Indwelling Catheter: Accurate Measurement of Urinary Output in Critically Ill Patients Urinary Catheter Date of Insertion: 06/28/21 Urinary Catheter Time of Insertion: 11:06 Date Urinary Catheter Removed: 06/27/21 Time Urinary Catheter Discontinued: 15:00 Data : 07/03/21 05:45 07/03/21 05:45 A&P Additional A&P Information 1. Acute on chronic kidney disease. Creatinine 1.9 at baseline. Creatinine drifting down now to stable levels Close follow up from outpatient Nephrology Avoid usual nephrotoxic agents. 2. Chemistry At goal 3. CHF Resume Bumex/Kcl today Thanks for consult Corbin Sánchez MD Nephrology [phone] Patient seen and examined via telemedicine, with the assistance of the bedside RN > 25 min spent in evaluation and mgmt of patient Attestations Medical Necessity Statement*: Eval for TIFFANY Coding Level of Care Code Acute Marine Engine Machinist for Sosa Bates
[2021-07-06 10:41] LABS: Vit D 1,25 (Oh)2, Total 18 pg/mL (18-72); Vit D2 1,25 (Oh)2 10 pg/mL; Vit D3 1,25 (Oh)2 8 pg/mL
== END 2021-07-03 14:00 | disposition skilled nursing facility (03) | DRG 246 ==
LOC: ER 15:58 → MEDSURG 20:08 → CSU 06-27 15:01
PROVIDERS: Internal Medicine Cardiovascular Disease; Internal Medicine Nephrology; Student in an Organized Health Care Education/Training Program; Admitting Provider Family Medicine; Emergency Provider Emergency Medicine; PCP Family Medicine; Visit Provider Internal Medicine
PROC: 027034Z Dilation of Coronary Artery, One Artery with Drug-eluting Intraluminal Device, Percutaneous Approach (ICD-10-PCS; principal; 2021-07-02 11:00)
PROC: 027034Z Dilation of Coronary Artery, One Artery with Drug-eluting Intraluminal Device, Percutaneous Approach (ICD-10-PCS; 2021-07-02 11:00)
DX: I13.0 Hypertensive heart and chronic kidney disease with heart failure and stage 1 through stage 4 chronic kidney disease, or unspecified chronic kidney disease (principal); I50.23 Acute on chronic systolic (congestive) heart failure; J18.9 Pneumonia, unspecified organism; I21.4 Non-ST elevation (NSTEMI) myocardial infarction; J96.02 Acute respiratory failure with hypercapnia; I21.A1 Myocardial infarction type 2; Z68.43 Body mass index [BMI] 50.0-59.9, adult; I47.2 Ventricular tachycardia; N17.9 Acute kidney failure, unspecified; K92.1 Melena; N18.32 Chronic kidney disease, stage 3b; E11.22 Type 2 diabetes mellitus with diabetic chronic kidney disease; I48.0 Paroxysmal atrial fibrillation; E11.649 Type 2 diabetes mellitus with hypoglycemia without coma; E78.5 Hyperlipidemia, unspecified; I25.110 Atherosclerotic heart disease of native coronary artery with unstable angina pectoris; E11.51 Type 2 diabetes mellitus with diabetic peripheral angiopathy without gangrene; D53.9 Nutritional anemia, unspecified; E66.01 Morbid (severe) obesity due to excess calories; Z79.01 Long term (current) use of anticoagulants; Z87.440 Personal history of urinary (tract) infections; E03.9 Hypothyroidism, unspecified; Z79.02 Long term (current) use of antithrombotics/antiplatelets; Z79.4 Long term (current) use of insulin; K64.9 Unspecified hemorrhoids; I25.2 Old myocardial infarction; E83.42 Hypomagnesemia
CPT/HCPCS: 36415; 36416; 36600; 51702; 70450; 71045; 78452; 80048; 80051; 80053; 80500; 82310; 82330; 82550; 82607; 82652; 82728; 82746; 82803; 82805; 82962; 83540; 83550; 83605; 83735; 83880; 83970; 84100; 84145; 84443; 84484; 85025; 85049; 85347; 85610; 85730; 86140; 87040; 87426; 87493; 87635; 87641; 87804; 93005; 93017; 93306; 93454; 93571; 94660; 94664; 96365; 96372; 96375; 96376; 97110; 97116; 97162; 97530; 97535; 99285; A9500; C1725; C1760; C1769; C1874; C1887; C1894; C9600; J1610; J1644; J1650; J1815; J1940; J2370; J2405; J2543; J2704; J2785; J3475; J3490; J7030; J7040; P9047; Q3014; Q9967

== ENCOUNTER 2021-07-04 11:57 | Emergency (ER) | payer MEDICARE, MEDICAID, SELFPAY ==
--- NOTE | 2021-07-04 11:59 | ED_ITS ---
HPI - Altered Mental Status General: Chief Complaint: Altered Mental Status Stated Complaint: syncope/ ams Time Seen by Provider: 07/04/21 11:59 Limitations: altered mental status History of Present Illness: HPI narrative: Ms. Lee is a 75-year-old lady with complex past medical history of atrial fibrillation on Coumadin, history of chronic UTIs, ESBL, hypothyroidism, CAD status post stenting x2 on Plavix, insulin-dependent type 2 diabetes mellitus, history of EF with diminished ejection fraction 35% and recent 3-week hospitalization discharged yesterday where she was initially admitted for CHF exacerbation and NSTEMI. She s ubsequently suffered from TIFFANY on CKD. She was intended to be discharged however developed NSVT per discharge summary with transient loss of consciousness. She was subsequently taken to [facility] and had PCI. She returns to the emergency department today for a recurrent episode of syncope. The exact circumstances are unclear if this event has patient has difficulty describing symptoms. She does appear to not or say yes and no appropriately but history is otherwise limited by mental status/responses. She denies pain. She denies chest pain or shortness of breath. Otherwise the exact course, quality, preceding events, exacerbating, or relieving factors are not identified. Review of Systems General: Reports: ROS unobtainable due to mental status PFSH ED PFSH: Medical History Acute hypercapnic respiratory failure Afib Anemia Atrial fibrillation with RVR CAD (coronary artery disease) Chronic anticoagulation Eliquis CKD (chronic kidney disease) Congestive heart failure Diabetes Dyslipidemia Hematoma of left flank HTN (hypertension) Morbid obesity Morbid obesity NSTEMI (non-ST elevated myocardial infarction) PVD (peripheral vascular disease) 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) Status post insertion of drug-eluting stent into left anterior descending (LAD) artery Urine retention Venous stasis Surgical History History of ankle surgery History of cataract surgery History of cholecystectomy History of heart artery stent History of umbilical hernia repair S/P hemodialysis catheter insertion (11/22/20) Right internal jugular vein d/c 12/25/20 Family History Other Cancer Diabetes Social History Smoking and tobacco status: never smoked Alcohol intake: never Marital status: / Current occupational status: retired History of recent travel: No Physical Exam Narrative: EXAM NARRATIVE: GENERAL/CONSTITUTIONAL - chronically ill-appearing appearing. Eyes - PERRL, no conjunctival injection ENMT - Atraumatic external nose and ears. Moist mucous membranes NECK - supple. trachea midline CARDIOVASCULAR -irregular rhythm and regular rate. Normal peripheral perfusion RESPIRATORY -diminished to auscultation bilaterally. No retractions or accessory muscle use. ABDOMEN/GI - Nontender, Nondistended. No tenderness to percussion or evidence of peritonitis MSK - Extremities without obvious deformity or tenderness to palpation SKIN - Warm, Dry NEURO - alert but mumbling responses. No new focal neurologic deficits appreciated Course ED course: - Patient was seen and evaluated by me at bedside - Patient placed on cardiac monitors, IV access obtained - Initial evaluation notable for exam as above - Labs notable for no leukocytosis. Near baseline normocytic anemia. No acute electrolyte derangements to explain patient's symptoms, creatinine is variable lately though not worse compared to prior. No acute ABG derangement to explain degree of encephalopathy. Delta troponin negative. BNP elevated - Imaging notable for negative head CT. Chest x-ray with mild pulmonary edema and small effusions. - Discussed case with cardiology who did not feel that syncope was cardiogenic in nature, likely orthostatic/positional. - Also discussed case with discharging hospitalist regarding any adjustments to diuresis. Patient has only been on diuresis for essentially 1 days, plan to leave the same interval. After further review hospitalist recommended adding midodrine 10 mg 3 times daily. This will be prescribed - Upon serial reexamination after treatment the patient was markedly improved for somewhat unclear reason, perhaps fluids. She was able to have fully coherent conversations with easily understandable speech. - Based on patient history, evaluation, labs, and imaging as interpreted the most likely cause of the patient's condition is unclear episode of altered mental status and possible syncope. - The results of ED evaluation were discussed with the patient. Challenging situation as the patient was discharged yesterday after a very prolonged hospitalization and it is challenging to say definitively if the patient asked changed significantly/if medications have not had enough time to equilibrate. I discussed this with the patient. She is comfortable with discharge and desires discharge back to snf facility. She will be watched closely there. I discussed prescriptions and/or symptomatic cares (if applicable) including appropriate and responsible use, followup plan, and return precautions. The patient verbalized understanding and felt safe for discharge. - Patient discharged in satisfactory condition. Vital Signs: Vital signs: Vital Signs Temperature 97.6 F 07/04/21 12:06 Pulse Rate 78 07/04/21 20:25 Respiratory Rate 18 07/04/21 20:25 Blood Pressure 111/64 07/04/21 20:25 Pulse Oximetry 94 07/04/21 20:25 MDM - Altered Mental Status Medical Records: Attestation: I reviewed the patient's medical records. Lab Data: Attestation: I reviewed the patient's lab results. Labs: Lab Results 07/04/21 07/04/21 07/04/21 12:50 13:16 13:16 WBC 7.0 10^3/uL 10^3/ uL (4.0-10.0) RBC 3.06 10^6/uL L 10 ^6/uL (4.1-5.3) Hgb 9.1 g/dL L g/dL (11.5-15.3) Hct 30.1 % L % (37.0-47.0) MCV 98.4 fl fl (81-99) MCH 29.7 pg pg (28.0-34.0) MCHC 30.2 g/dL g/dL (30.0-36.0) RDW 16.6 % H % (12.1-15.1) Plt Count 175 10^3/cmm 10^3 /cmm (130-400) MPV 12.3 fL H fL (7.4-10.4) Neut % (Auto) 62.5 % % Lymph % (Auto) 16.1 % % Rabun % (Auto) 13.1 % % Eos % (Auto) 7.3 % % Baso % (Auto) 0.7 % % Neut # (Auto) 4.37 10^3/uL 10^3 /uL (1.8-7.7) Lymph # (Auto) 1.1 10^3/uL 10^3/ uL (0.8-4.8) Rabun # (Auto) 0.9 10^3/uL 10^3/ uL (0.2-0.9) Eos # (Auto) 0.5 10^3/uL 10^3/ uL (0.0-0.8) Baso # (Auto) 0.1 10^3/uL 10^3/ uL (0.0-0.1) Nucleated RBC % (a uto) 0 % % Nucleated RBCs # 0.0 /100WBC /100W BC Specimen Type Arterial Sample Site Radial, right ABG pH 7.37 (7.35-7.45) ABG pCO2 49.1 mmHg H mmHg (35-45) ABG pO2 57.6 mmHg L mmHg (80.0-100.0) ABG HCO3 28.6 mmol/L H mmo l/L (22-26) ABG Base Excess 2.8 mmol/L H mmol /L (-2.0-2.0) Olvin Test Pos Hematocrit 28.7 % L % (37-47) O2 Delivery Device None Medical Service Representative ID Monro Sodium 135 mmol/L L mmol /L (136-145) Potassium 4.6 mmol/L mmol/L (3.5-5.1) Chloride 101 mmol/L mmol/L (98-107) Carbon Dioxide 20 mmol/L L mmol/ L (22-29) Anion Gap 18.6 (5-19) BUN 36 mg/dL H mg/dL (8-23) Creatinine 2.6 mg/dL H mg/dL (0.5-0.9) GFR Calculation Not Reportable Glucose 148 mg/dL H mg/dL (65-115) Calculated Osmolal ity 291 mOsm/kg mOsm/ kg (285-295) Calcium 7.9 mg/dL L mg/dL (8.5-10.5) Magnesium 1.6 mg/dL L mg/dL (1.7-2.3) Total Bilirubin 0.2 mg/dL mg/dL (0.15-1.2) AST 37 U/L H U/L (0-32) ALT 12 U/L U/L (0-33) Alkaline Phosphata se 174 IU/L H IU/L (35-105) Troponin T Baselin e Troponin T 120 Min [place] Troponin T NT-Pro-B Natriuret Pep 55002 pg/mL H pg/ mL (0-450) Total Protein 6.0 g/dL L g/dL (6.6-8.7) Albumin 2.5 g/dL L g/dL (3.5-5.2) Globulin 3.5 g/dL g/dL (1.3-4.6) Urine Color Urine Appearance Urine pH Ur Specific Gravit y Urine Protein Urine Glucose (UA) Urine Ketones Urine Blood Urine Nitrate Urine Bilirubin Urine Urobilinogen Ur Leukocyte Priscilla ase Urine RBC Urine WBC Ur Squamous Epith Cells Amorphous Sediment Urine Bacteria 07/04/21 07/04/21 07/04/21 13:16 13:48 15:50 WBC RBC Hgb Hct MCV MCH MCHC RDW Plt Count MPV Neut % (Auto) Lymph % (Auto) Rabun % (Auto) Eos % (Auto) Baso % (Auto) Neut # (Auto) Lymph # (Auto) Rabun # (Auto) Eos # (Auto) Baso # (Auto) Nucleated RBC % (a uto) Nucleated RBCs # Specimen Type Sample Site ABG pH ABG pCO2 ABG pO2 ABG HCO3 ABG Base Excess Olvin Test Hematocrit O2 Delivery Device Medical Service Representative ID Sodium Potassium Chloride Carbon Dioxide Anion Gap BUN Creatinine GFR Calculation Glucose Calculated Osmolal ity Calcium Magnesium Total Bilirubin AST ALT Alkaline Phosphata se Troponin T Baselin e 115 ng/L H* ng/L (0-10) Troponin T 120 Min [place] 119.7 ng/L H ng/L (0-10) Delta Troponin T 4.7 ABS# ABS# (0-10) NT-Pro-B Natriuret Pep Total Protein Albumin Globulin Urine Color Yellow (Yellow) Urine Appearance Cloudy (CLEAR) Urine pH 5 (5-7) Ur Specific Gravit y 1.015 (1.005-1.030) Urine Protein 2+ H (Negative) Urine Glucose (UA) Norm (Normal) Urine Ketones 1+ H (Negative) Urine Blood 3+ H (Negative) Urine Nitrate Negative (Negative) Urine Bilirubin 1+ H (Negative) Urine Urobilinogen Norm mg/dL mg/dL (Negative) Ur Leukocyte Priscilla ase Negative (Negative) Urine RBC 40-50 /hpf H /hpf (0-2) Urine WBC Too numerous to c nt /hpf H /hpf (0-5) Ur Squamous Epith Cells 5-10 /hpf H /hpf (0-5) Amorphous Sediment Not Reportable Urine Bacteria 3+ /hpf H /hpf (NONE) EKG Data^: EKG 1: Attestation: I personally reviewed and interpreted this EKG as follows: EKG interpretation date: 07/04/21 EKG interpretation time: 13:52 Interpretation: Twelve-lead EKG shows an irregular rhythm at a rate of 87. OR interval not present, QRS duration 121, QTc 451. Normal axis. Interpretation: Atrial fibrillation. Nonspecific ST segment abnormalities. Interventricular conduction delay. EKG 2: Attestation: I personally reviewed and interpreted this EKG as follows: EKG interpretation date: 07/04/21 EKG interpretation time: 15:22 Interpretation: Twelve-lead EKG shows a irregular rhythm at a rate of 95. OR interval not present, QRS duration 130, QTc 460. Borderline axis. Interpretation: Atrial fibrillation. Nonspecific ST segment abnormalities. Interventricular conduction delay. EKG 3: Attestation: I personally reviewed and interpreted this EKG as follows: EKG interpretation date: 07/04/21 EKG interpretation time: 18:43 Interpretation: Twelve-lead EKG shows a irregular rhythm at a rate of 97. OR interval not present, QRS duration 128. QTc 458. Borderline axis. Interpretation: Atrial fibrillation. Nonspecific ST segment abnormalities. Interventricular conduction delay. Discharge Plan Discharge Patient Disposition: Home Clinical Impression: Altered mental status, Syncope, Acute UTI, CKD (chronic kidney disease), CHF (congestive heart failure) Condition: Stable Prescriptions: New nitrofurantoin monohyd/m-cryst [Macrobid] 100 mg capsule 100 mg PO BID 7 Days Qty: 14 RF: 0 midodrine 10 mg tablet 10 mg PO TID Qty: 90 RF: 0 No Action gabapentin 100 mg capsule 100 mg PO BID@0800,1999 RF: 0 clopidogrel 75 mg tablet 75 mg PO DAILY@0800 RF: 0 calcitriol 0.25 mcg capsule 0.25 mcg PO DAILY@0800 RF: 0 aspirin [Aspir-81] 81 mg Tablet,Delayed Release (Dr/Ec) 81 mg PO DAILY@08 RF: 0 levothyroxine 25 mcg tablet 25 mcg PO DAILY@06 RF: 0 magnesium hydroxide [Milk of Magnesia] 400 mg/5 mL Suspension 30 ml PO DAILY PRN (Reason: Constipation) RF: 0 bisacodyl 10 mg Suppository 10 mg OR DAILY PRN (Reason: Constipation) RF: 0 levothyroxine 200 mcg tablet 200 mcg PO DAILY@06 RF: 0 folic acid 1 mg Tablet 2 mg PO DAILY@20 RF: 0 spironolactone 25 mg tablet 12.5 mg PO DAILY@08 RF: 0 pantoprazole [Protonix] 40 mg tablet,delayed release (DR/EC) 40 mg PO DAILY@08 RF: 0 Levemir FlexTouch U-100 Insuln 100 unit/mL (3 mL) insulin pen 5 unit SUBCUT BEDTIME@20 RF: 0 atorvastatin 80 mg Tablet 80 mg PO BEDTIME@20 RF: 0 Enema Disposable 19-7 gram/118 mL Enema 118 ml OR DAILY PRN (Reason: Constipation) RF: 0 citalopram 10 mg Tablet 10 mg PO DAILY@0800 RF: 0 docusate sodium 100 mg capsule 100 mg PO DAILY@08 RF: 0 bumetanide 2 mg tablet 2 mg PO DAILY@08 RF: 0 sennosides-docusate sodium [Senna-S] 8.6-50 mg Tablet 1 tab PO DAILY@08 RF: 0 meclizine 12.5 mg Tablet 12.5 mg PO DAILY@08 RF: 0 phenytoin sodium extended 100 mg capsule 200 mg PO BID@08,20 RF: 0 insulin aspart U-100 [Novolog Flexpen U-100 Insulin] 100 unit/mL (3 mL) insulin pen See Rx Instructions .ROUTE .COMPLEX RF: 0 potassium chloride 10 mEq tablet,ER particles/crystals 10 meq PO DAILY@08 RF: 0 metoprolol tartrate 25 mg tablet 25 mg PO BID@08,20 RF: 0 mupirocin 2 % ointment 1 applic topical BID PRN (Reason: UNKNOWN) RF: 0 warfarin [Jantoven] 3 mg Tablet 1.5 mg PO DAILY@1400 30 Days Qty: 30 RF: 0 Discharge Orders: Discharge ED (Routine); Ordered 07/04/21 Ordered By: Grayson Renee Referrals: Pascual Kay MD [Primary Care Provider] - Discharge Diet: Cardiac and Diabetic Discharge Activity: Increase activity as tolerated Patient Instructions: Pulmonary Edema (ED), Urinary Tract Infection in Women (ED), Syncope (ED) Activity Restrictions/Additional Instructions: Thank you for visiting the emergency department. You were seen and evaluated for altered mental status and syncope. The exact cause of your symptoms is unclear. In the past this is likely been related to low blood pressure. You were found to have a urinary tract infection, otherwise your labs are similar to baseline. You will be given a prescription for antibiotics. Please follow-up with your primary care provider and cardiology. Return to the emergency department for worsening symptoms, recurrence of symptoms, or anything else that you are concerned about and feel needs emergency department evaluation. Coding Level of Care Code ED Mechanic for Sosa Bates
[2021-07-04 12:06] VITALS: BP 84/65; PULSE 98; RESP 20; TEMP 36.4; O2SAT 98; BMI 60.0
--- NOTE | 2021-07-04 12:12 | CT_ITS ---
WS: [id number] CT HEAD NONCONTRAST HISTORY: ams, syncope TECHNIQUE: Contiguous axial imaging performed through the brain in 2.5 mm imaging. Bone and soft tiss ue windows. Sagittal and coronal reformats reviewed. All CT scans at [facility] use at least one of these dose optimization techniques: automated exposure control; mA and/or kV adjustment per pa tient size (includes targeted exams where dose is matched to clinical indication); or iterative recon struction. DLP: 998.62 mGy.cm COMPARISON: 06/27/2021 No acute intracranial hemorrhage, midline shift or mass effect. Mild bilateral atrophy and chronic microvascular ischemic disease. No prior infarct. Ventricles: Ventricles and extra-axial spaces are very mildly prominent on the basis of atrophy. No new infarct. No cerebellar abnormality. Paranasal sinuses: As visualized are clear. Mastoid air cells: Well pneumatized. Calvarium and scalp: Skull is intact with no soft tissue edema or swelling. CT/CT head wo con* [id number] IMPRESSION: 1. No acute intracranial hemorrhage or edema. 2. Mild atrophy and mild chronic microvascular ischemic disease. Stable since 06/27/2021.
--- NOTE | 2021-07-04 12:12 | XRR_ITS ---
PROCEDURE INFORMATION: Exam: XR Chest Exam date and time: 07/04/2021 12:12 PM Age: 75 years old Clinical indication: Other: Dizzy; Additional info: AMS, syncope TECHNIQUE: Imaging protocol: XR of the chest. Views: 1 view. COMPARISON: CR (CHEST, ) 06/28/2021 6:24 AM FINDINGS: Lungs: There is redistribution and indistinctness of the pulmonary vasculature, in association with haziness of the lungs and small bilateral pleural effusions, left greater than right, which in the setting of cardiomegaly is consistent with pulmonary edema. Pneumonia should be excluded clinically. No pneumothorax. Pleural spaces: See Lungs finding. Heart/Mediastinum: Stable cardiomediastinal silhouette. Vasculature: Aortic arch atherosclerotic calcifications seen. Bones/joints: Unremarkable. XR/XR chest 1V portable [id number] IMPRESSION: Imaging findings of pulmonary edema with small bilateral pleural effusions, left greater than right. Pneumonia should be excluded clinically.
--- NOTE | 2021-07-04 12:13 | ECG_ITS ---
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 Measurements Intervals [place] Rate: 87 P: [place]: QRS: 137 QRSD: 121 T: 0 QT: 406 QTc: 490 Interpretive Statements ATRIAL FIBRILLATION RIGHT AXIS DEVIATION [QRS AXIS > 100] ANTEROSEPTAL MYOCARDIAL INFARCTION , PROBABLY OLD [40+ ms Q WAVE IN V1-V4] Compared to ECG 06/30/2021 06:15:56 No significant changes Electronically Signed On 07-05-2021 8:49:02 SKATE SHOP ATTENDANT by Ramon Garcia M.D. [id number]
[2021-07-04 13:06] LABS: ABG PCO2 49.1 mmHg (35-45); ABG PH Result 7.37 (7.35-7.45); Arterial Blood Gas Hematocrit 28.7 % (37-47); Base Excess ABG 2.8 mmol/L (-2.0-2.0); Blood Gas Allen Test Pos; Blood Gas Operator Identificat MONRO; Blood Gas Sample Type Arterial; HCO3 ABG 28.6 mmol/L (22-26); PO2 ABG 57.6 mmHg (80.0-100.0)
[2021-07-04 13:08] LABS: Blood Gas Sample Site Radial, right
[2021-07-04 13:22] LABS: Basophils # 0.1 10^3/uL (0.0-0.1); Basophils % 0.7 %; Eosinophils # 0.5 10^3/uL (0.0-0.8); Eosinophils % 7.3 %; Hematocrit 30.1 % (37.0-47.0); Hemoglobin 9.1 g/dL (11.5-15.3); Lymphocytes # 1.1 10^3/uL (0.8-4.8); Lymphocytes % 16.1 %; Mean Corpuscular HGB Conc 30.2 g/dL (30.0-36.0); Mean Corpuscular Hemoglobin 29.7 pg (28.0-34.0); Mean Corpuscular Volume 98.4 fl (81-99); Mean Platelet Volume 12.3 fL (7.4-10.4); Monocytes # 0.9 10^3/uL (0.2-0.9); Monocytes % 13.1 %; Neutrophils # 4.37 10^3/uL (1.8-7.7); Neutrophils % 62.5 %; Nucleated Red Blood Cells % 0 %; Platelet Count 175 10^3/cmm (130-400); Red Blood Count 3.06 10^6/uL (4.1-5.3); Red Cell Distribution Width 16.6 % (12.1-15.1)
[2021-07-04 13:52] LABS: Alanine Aminotransferase 12 U/L (0-33); Albumin Level 2.5 g/dL (3.5-5.2); Alkaline Phosphatase 174 IU/L (35-105); Blood Urea Nitrogen 36 mg/dL (8-23); Calcium 7.9 mg/dL (8.5-10.5); Carbon Dioxide 20 mmol/L (22-29); Chloride 101 mmol/L (98-107); Globulin 3.5 g/dL (1.3-4.6); Glucose 148 mg/dL (65-115); Magnesium 1.6 mg/dL (1.7-2.3); Osmolality Calculated 291 mOsm/kg (285-295); Sodium 135 mmol/L (136-145); Total Bilirubin 0.2 mg/dL (0.15-1.2)
[2021-07-04 13:55] LABS: Anion Gap 18.6 (5-19); Aspartate Amino Transferase 37 U/L (0-32); Potassium 4.6 mmol/L (3.5-5.1)
[2021-07-04 14:12] LABS: NT Pro B Type Natriuretic Pept 34638 pg/mL (0-450)
--- NOTE | 2021-07-04 14:13 | ECG_ITS ---
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 Measurements Intervals [place] Rate: 95 P: [place]: QRS: 117 QRSD: 130 T: 0 QT: 407 QTc: 513 Interpretive Statements ATRIAL FIBRILLATION RIGHT AXIS DEVIATION [QRS AXIS > 100] POSSIBLE ANTERIOR MYOCARDIAL INFARCTION , PROBABLY OLD [30 ms Q WAVE IN V3/V4, OR R < 0.2 mV IN V4] Compared to ECG 07/04/2021 13:37:27 No significant changes Electronically Signed On 07-05-2021 9:16:51 STEAM PRESS TENDER by Ramon Garcia M.D. [id number]
[2021-07-04 14:18] LABS: Add Urine Microscopic? YES; Bilirubin Urine 1+ (Negative); Blood Urine 3+ (Negative); Glucose Urine UA Norm (Normal); Ketones Urine 1+ (Negative); Leukocyte Esterase Urine Negative (Negative); Nitrate Urine Negative (Negative); Protein Urine 2+ (Negative); Specific Gravity, Urine 1.015 (1.005-1.030); Urine Appearance Cloudy (CLEAR); Urine Color Yellow (Yellow); Urobilinogen Urine Norm (Negative); pH Urine 5 (5-7)
[2021-07-04 14:19] LABS: Add Urine Culture? Yes; Bacteria Urine 3+ /hpf; RBC Urine 40-50 /hpf (0-2); WBC Urine TOO NUMEROUS TO CNT /hpf (0-5)
[2021-07-04 14:23] LABS: Troponin(5th) Baseline 115 ng/L (0-10)
[2021-07-04 15:49] VITALS: BP 104/74; PULSE 108; RESP 18; O2SAT 95
[2021-07-04 16:38] LABS: Troponin 5 2HR Delta 4.7 ABS# (0-10)
--- NOTE | 2021-07-04 16:41 | PC.PHAR ---
pt is from [facility]-candis from [facility] states the pt had her am meds-notes are made in the pharmacy comments
[2021-07-04 16:42] LABS: Troponin 5 2HR 119.7 ng/L (0-10)
--- NOTE | 2021-07-04 18:13 | ECG_ITS ---
[facility] Test Date: 2021-07-04 Pat Name: Carole Lee Department: Room: Gender: Female Orthotist Or Prosthetist: : 1945 Requested By: Grayson Renee Order Number: [id number] Danielle MD: Ramon Garcia M.D. Measurements Intervals [place] Rate: 97 P: [place]: QRS: 115 QRSD: 128 T: 0 QT: 403 QTc: 513 Interpretive Statements ATRIAL FIBRILLATION RIGHT AXIS DEVIATION [QRS AXIS > 100] ANTEROSEPTAL MYOCARDIAL INFARCTION , PROBABLY OLD [40+ ms Q WAVE IN V1-V4] Compared to ECG 07/04/2021 15:20:49 No significant changes Electronically Signed On 07-05-2021 9:08:19 FLIGHT MANAGER by Ramon Garcia M.D. [id number]
[2021-07-04] MEDS: bumetanide 1 mg Tablet 2 MG PO (18:35)
[2021-07-04] MEDS: nitrofurantoin SR (BID) 100 mg Capsule PO (18:35)
--- NOTE | 2021-07-04 19:40 | PC.NURSE ---
Medicare transport contacted for transport on pt. Reference number [id number].
[2021-07-04 20:25] VITALS: BP 111/64; PULSE 78; RESP 18; O2SAT 94
--- NOTE | 2021-07-04 20:29 | PC.NURSE ---
Pt returned to [facility]. Attempted to call report on pt. No response.
== END 2021-07-04 20:26 | disposition home or self-care (01) ==
PROVIDERS: Emergency Provider Emergency Medicine; PCP Family Medicine
DX: R41.82 Altered mental status, unspecified (principal); R55 Syncope and collapse; N39.0 Urinary tract infection, site not specified; I13.0 Hypertensive heart and chronic kidney disease with heart failure and stage 1 through stage 4 chronic kidney disease, or unspecified chronic kidney disease; E11.22 Type 2 diabetes mellitus with diabetic chronic kidney disease; N18.9 Chronic kidney disease, unspecified; I50.9 Heart failure, unspecified; I25.10 Atherosclerotic heart disease of native coronary artery without angina pectoris; E78.5 Hyperlipidemia, unspecified; I25.2 Old myocardial infarction; Z79.02 Long term (current) use of antithrombotics/antiplatelets; Z79.82 Long term (current) use of aspirin; Z79.4 Long term (current) use of insulin; Z79.01 Long term (current) use of anticoagulants
CPT/HCPCS: 36600; 70450; 71045; 80053; 81001; 82803; 83735; 83880; 84484; 85025; 87086; 87106; 93005; 99283

== ENCOUNTER 2021-07-05 20:54 | Inpatient (IN) | payer MEDICARE, MEDICAID, SELFPAY ==
--- NOTE | 2021-07-05 20:59 | CTR_ITS ---
PROCEDURE INFORMATION: Exam: CT Head Without Contrast Exam date and time: 07/05/2021 8:59 PM Age: 75 years old Clinical indication: Altered mental status/memory loss; Patient HX: AMS. Lethargy. Hypotensive. TECHNIQUE: Imaging protocol: Computed tomography of the head without contrast. Sagittal and coronal reformatted images were created and reviewed. Radiation optimization: All CT scans at this facility use at least one of these dose optimization techniques: automated exposure control; mA and/or kV adjustment per patient size (includes targeted exams where dose is matched to clinical indication); or iterative reconstruction. COMPARISON: CT head wo con* [id number] 07/04/2021 2:06 PM RADIATION DOSE METRICS: Total DLP (mGy-cm): 525.17 FINDINGS: Brain: No acute intracranial hemorrhage. No acute infarct. No intra-axial or extra-axial masses. Hathaway-white matter differentiation is preserved. No cerebral edema. No extra-axial fluid collections. No midline shift. No evidence for Chiari 1 malformation. Stable mild cerebral volume loss. Cerebral ventricles: No hydrocephalus. Paranasal sinuses: Mild mucoperiosteal thickening in the visualized left maxillary sinus. Other visualized paranasal sinuses are clear. Mastoid air cells: Visualized mastoid air cells are clear. Auditory system: Soft tissue density in the bilateral external auditory canals, presumably representing cerumen. Orbital cavity: Globes and lenses, extraocular muscles, and optic nerves are intact bilaterally. No acute intraorbital abnormality. Vasculature: Atherosclerotic changes in the visualized arteries. Bones/joints: Mild right nasal septal deviation. Soft tissues: The extracranial soft tissues are unremarkable. Nasal cavity: Lisa bullosa of the left middle turbinate. CT/CT head wo con* [id number] IMPRESSION: 1. No acute abnormality of the brain. 2. Incidental/nonacute findings are listed in the report.
--- NOTE | 2021-07-05 20:59 | ECG_ITS ---
[facility] Test Date: 2021-07-05 Pat Name: Carole Lee Department: Room: Gender: Female Implant Coordinator: : 1945 Requested By: Duke Geronimo Order Number: [id number] Reading MD: Rupinder Melchor M.D. Measurements Intervals [place] Rate: 102 P: [place]: QRS: 153 QRSD: 124 T: -81 QT: 355 QTc: 463 Interpretive Statements ATRIAL FIBRILLATION WITH RAPID VENTRICULAR RESPONSE RIGHT AXIS DEVIATION [QRS AXIS > 100] ANTEROSEPTAL MYOCARDIAL INFARCTION , PROBABLY OLD [40+ ms Q WAVE IN V1-V4] Compared to ECG 07/04/2021 18:40:35 No significant changes Electronically Signed On 07-07-2021 17:11:19 REGISTERED PHLEBOTOMIST PART TIME by Rupinder Melchor M.D. [id number]
--- NOTE | 2021-07-05 20:59 | XRR_ITS ---
PROCEDURE INFORMATION: Exam: XR Chest Exam date and time: 07/05/2021 8:59 PM Age: 75 years old Clinical indication: Shortness of breath; Prior surgery; Surgery type: Coronary stent. ; Patient HX: AMS. Lethargy. Hypoxia. History of chf. TECHNIQUE: Imaging protocol: XR of the chest. Views: 1 view. COMPARISON: CR XR chest 1V portable [id number] 07/04/2021 12:20 PM FINDINGS: Lungs: Retrocardiac opacity. Ill-defined opacity in the right lung base. Increased interstitial lung markings again noted. Pleural spaces: Small to moderate volume left pleural effusion. Potential trace right pleural effusion. No pneumothorax. Heart/Mediastinum: Similar cardiomegaly with central pulmonary vascular congestion. Bones/joints: Visualized osseous structures are intact. XR/XR chest 1V portable [id number] IMPRESSION: 1. Cardiomegaly with central pulmonary vascular congestion. 2. Increased interstitial lung markings suggestive of interstitial pulmonary edema. 3. Small to moderate volume left pleural effusion and perhaps a trace right pleural effusion. Retrocardiac opacity and ill-defined opacity in the right lung base likely atelectasis versus infiltrate. These findings are similar to prior study.
[2021-07-05 21:08] VITALS: BP 95/57; PULSE 108; RESP 18; TEMP 36.5; O2SAT 88
--- NOTE | 2021-07-05 21:09 | W.ED.AMS ---
HPI - Altered Mental Status General: Chief Complaint: Altered Mental Status Stated Complaint: AMS Time Seen by Provider: 07/05/21 20:57 Source: EMS Mode of arrival: EMS Limitations: altered mental status History of Present Illness: HPI narrative: 75-year-old female is here from a long-term for altered mental status she had a long admission here from looks to be June 13 to the . Patient wants upon going home I came back the was seen here and was diagnosed with a UTI. long-term tonight states that when the night she took of sedation she found her completely altered minimal responsiveness unsure when her actual last known normal was. Patient here is severely slurred speech she able to move both extremities but has weakness to both upper extremities she is able to tell me her name but does not know the year or where she is at. Review of Systems General: Reports: ROS unobtainable due to mental status [facility] ED PFSH: Medical History Acute hypercapnic respiratory failure Afib Anemia Atrial fibrillation with RVR CAD (coronary artery disease) Chronic anticoagulation Eliquis CKD (chronic kidney disease) Congestive heart failure Diabetes Dyslipidemia Hematoma of left flank HTN (hypertension) Morbid obesity Morbid obesity NSTEMI (non-ST elevated myocardial infarction) PVD (peripheral vascular disease) 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) Status post insertion of drug-eluting stent into left anterior descending (LAD) artery Urine retention Venous stasis Surgical History History of ankle surgery History of cataract surgery History of cholecystectomy History of heart artery stent History of umbilical hernia repair S/P hemodialysis catheter insertion (11/22/20) Right internal jugular vein d/c 12/25/20 Family History Other Cancer Diabetes Social History Smoking and tobacco status: never smoked Alcohol intake: never Marital status: / Current occupational status: retired History of recent travel: No Physical Exam Const: COMMON NORMALS: alert; negative for patient oriented x3 EXAM LIMITATIONS: altered mental status GENERAL APPEARANCE: ill appearing NUTRITIONAL APPEARANCE: obese ORIENTATION/CONSCIOUSNESS: Yes oriented to person; not oriented to place and not oriented to time HENMT: COMMON NORMALS: normocephalic and atraumatic HEAD & SCALP: normocephalic and atraumatic Eye: COMMON NORMALS: Equal, round and reactive pupils present and EOMs intact bilaterally PUPIL: Yes Equal, round and reactive pupils present Neck/C-Spine: COMMON NORMALS: full ROM and supple Chest: COMMONS NORMALS: normal inspection of the chest and normal palpation of entire chest wall Resp: COMMON NORMALS: normal respiratory effort, No retractions, No use of accessory muscles and clear to auscultation bilaterally AUSCULTATION: clear to auscultation bilaterally Cardio: COMMON NORMALS: regular rate, regular rhythm and No murmurs present (Cardio) RATE: regular rate RHYTHM: regular rhythm GI: COMMON NORMALS: Normal to inspection, nondistended, normoactive bowel sounds present, Soft to palpation, non-tender and no masses PALPATION: Yes Soft to palpation Extremity: COMMON NORMALS: normal to inspection and full ROM Neuro: COMMON NORMALS: moves all extremities; negative for patient oriented x3 SENSORIUM/ORIENTATION: Yes alert, Yes oriented to person, No oriented to place and No oriented to time OTHER: Patient has no facial droop she has got severe weakness to all 4 days slightly incoherent speech she is quite lethargic. Psych: COMMON NORMALS: cooperative; negative for mental status grossly normal Skin: COMMON NORMALS: no rashes or lesions noted and no wounds GENERAL SKIN EXAM: no rashes or lesions noted Course Vital Signs: Vital signs: Vital Signs Temperature 97.7 F 07/05/21 21:08 Pulse Rate 108 H 07/05/21 21:08 Respiratory Rate 18 07/05/21 21:08 Blood Pressure 95/57 07/05/21 21:08 Pulse Oximetry 88 L 07/05/21 21:08 MDM - Altered Mental Status MDM Narrative: Medical decision making narrative: Patient presents with altered mental status her mentation is improving here she is answering more questions but still has some lethargy no signs of acute stroke not a TPA candidate unknown when her last known normal. Does have a recent urinary tract infection x-ray shows increased pulmonary edema and possible pneumonia will start on IV antibiotics patient's blood pressure here is improved we will give her some Lasix spoke to hospitalist will admit. Lab Data: Labs: Lab Results 07/05/21 07/05/21 07/05/21 20:59 22:19 22:19 WBC 8.3 10^3/uL 10^3/ uL (4.0-10.0) RBC 3.11 10^6/uL L 10 ^6/uL (4.1-5.3) Hgb 9.2 g/dL L g/dL (11.5-15.3) Hct 31.9 % L % (37.0-47.0) MCV 102.6 fl H fl (81-99) MCH 29.6 pg pg (28.0-34.0) MCHC 28.8 g/dL L g/dL (30.0-36.0) RDW 17.1 % H % (12.1-15.1) Plt Count 201 10^3/cmm 10^3 /cmm (130-400) MPV 12.3 fL H fL (7.4-10.4) Neut % (Auto) 83.5 % % Lymph % (Auto) 5.5 % % [place] % (Auto) 1.8 % % Eos % (Auto) 8.4 % % Baso % (Auto) 0.2 % % Neut # (Auto) 6.94 10^3/uL 10^3 /uL (1.8-7.7) Lymph # (Auto) 0.5 10^3/uL L 10^ 3/uL (0.8-4.8) [place] # (Auto) 0.2 10^3/uL 10^3/ uL (0.2-0.9) Eos # (Auto) 0.7 10^3/uL 10^3/ uL (0.0-0.8) Baso # (Auto) 0.0 10^3/uL 10^3/ uL (0.0-0.1) Nucleated RBC % (a uto) 0 % % Nucleated RBCs # 0.0 /100WBC /100W BC Specimen Type Arterial Sample Site Brachial, right ABG pH 7.29 L (7.35-7.45) ABG pCO2 58.6 mmHg H mmHg (35-45) ABG pO2 80.6 mmHg mmHg (80.0-100.0) ABG HCO3 28.2 mmol/L H mmo l/L (22-26) ABG Base Excess 1.0 mmol/L mmol/L (-2.0-2.0) Olvin Test N/a Hematocrit 27.6 % L % (37-47) O2 Delivery Device Nc O2 Liters/Min 2.0 % % Marketing Manager [employer] Communications ID [email or web address] Sodium 137 mmol/L mmol/L (136-145) Potassium 5.1 mmol/L mmol/L (3.5-5.1) Chloride 101 mmol/L mmol/L (98-107) Carbon Dioxide 23 mmol/L mmol/L (22-29) Anion Gap 18.1 (5-19) BUN 44 mg/dL H mg/dL (8-23) Creatinine 3.5 mg/dL H mg/dL (0.5-0.9) GFR Calculation Not Reportable Glucose 120 mg/dL H mg/dL (65-115) Calculated Osmolal ity 296 mOsm/kg H mOs m/kg (285-295) Calcium 8.2 mg/dL L mg/dL (8.5-10.5) Total Bilirubin 0.4 mg/dL mg/dL (0.15-1.2) AST 35 U/L H U/L (0-32) ALT 14 U/L U/L (0-33) Alkaline Phosphata se 207 IU/L H IU/L (35-105) Troponin T Baselin e NT-Pro-B Natriuret Pep 12622 pg/mL H pg/ mL (0-450) Total Protein 6.3 g/dL L g/dL (6.6-8.7) Albumin 2.7 g/dL L g/dL (3.5-5.2) Globulin 3.6 g/dL g/dL (1.3-4.6) TSH 1.28 uIU/mL uIU/m L (0.27-4.20) 07/05/21 22:19 WBC RBC Hgb Hct MCV MCH MCHC RDW Plt Count MPV Neut % (Auto) Lymph % (Auto) [place] % (Auto) Eos % (Auto) Baso % (Auto) Neut # (Auto) Lymph # (Auto) [place] # (Auto) Eos # (Auto) Baso # (Auto) Nucleated RBC % (a uto) Nucleated RBCs # Specimen Type Sample Site ABG pH ABG pCO2 ABG pO2 ABG HCO3 ABG Base Excess Olvin Test Hematocrit O2 Delivery Device O2 Liters/Min Marketing Manager [employer] Communications ID Sodium Potassium Chloride Carbon Dioxide Anion Gap BUN Creatinine GFR Calculation Glucose Calculated Osmolal ity Calcium Total Bilirubin AST ALT Alkaline Phosphata se Troponin T Baselin e 145 ng/L H* ng/L (0-10) NT-Pro-B Natriuret Pep Total Protein Albumin Globulin TSH EKG Data^: EKG 1: Attestation: I personally reviewed and interpreted this EKG as follows: EKG interpretation date: 07/05/21 EKG interpretation time: 21:11 Interpretation: afib hr [address] or t wave abnormalities qrs 124 qtc 414 Discharge Plan Discharge Prescriptions: No Action gabapentin 100 mg capsule 100 mg PO BID@0800,2000 RF: 0 clopidogrel 75 mg tablet 75 mg PO DAILY@0800 RF: 0 calcitriol 0.25 mcg capsule 0.25 mcg PO DAILY@0800 RF: 0 Aspir-81 81 mg Tablet,Delayed Release (Dr/Ec) 81 mg PO DAILY@08 RF: 0 levothyroxine 25 mcg tablet 25 mcg PO DAILY@06 RF: 0 Milk of Magnesia 400 mg/5 mL Suspension 30 ml PO DAILY PRN (Reason: Constipation) RF: 0 bisacodyl 10 mg Suppository 10 mg TX DAILY PRN (Reason: Constipation) RF: 0 levothyroxine 200 mcg tablet 200 mcg PO DAILY@06 RF: 0 folic acid 1 mg Tablet 2 mg PO DAILY@20 RF: 0 spironolactone 25 mg tablet 12.5 mg PO DAILY@08 RF: 0 Protonix 40 mg tablet,delayed release (DR/EC) 40 mg PO DAILY@08 RF: 0 Levemir FlexTouch U-100 Insuln 100 unit/mL (3 mL) insulin pen 5 unit SUBCUT BEDTIME@20 RF: 0 Macrobid 100 mg capsule 100 mg PO BID 7 Days Qty: 14 RF: 0 midodrine 10 mg tablet 10 mg PO TID Qty: 90 RF: 0 atorvastatin 80 mg Tablet 80 mg PO BEDTIME@20 RF: 0 Enema Disposable 19-7 gram/118 mL Enema 118 ml TX DAILY PRN (Reason: Constipation) RF: 0 citalopram 10 mg Tablet 10 mg PO DAILY@0800 RF: 0 docusate sodium 100 mg capsule 100 mg PO DAILY@08 RF: 0 bumetanide 2 mg tablet 2 mg PO DAILY@08 RF: 0 sennosides-docusate sodium [Senna-S] 8.6-50 mg Tablet 1 tab PO DAILY@08 RF: 0 meclizine 12.5 mg Tablet 12.5 mg PO DAILY@08 RF: 0 phenytoin sodium extended 100 mg capsule 200 mg PO BID@08,20 RF: 0 insulin aspart U-100 [Novolog Flexpen U-100 Insulin] 100 unit/mL (3 mL) insulin pen See Rx Instructions .ROUTE .COMPLEX RF: 0 potassium chloride 10 mEq tablet,ER particles/crystals 10 meq PO DAILY@08 RF: 0 metoprolol tartrate 25 mg tablet 25 mg PO BID@08,20 RF: 0 mupirocin 2 % ointment 1 applic topical BID PRN (Reason: UNKNOWN) RF: 0 warfarin [Jantoven] 3 mg Tablet 1.5 mg PO DAILY@1400 30 Days Qty: 30 RF: 0 Coding Level of Care Code ED Film Or Tape Librarian for Sosa Fwd Exam Comprehensive
[2021-07-05 21:38] LABS: ABG PCO2 58.6 mmHg (35-45); ABG PH Result 7.29 (7.35-7.45); Arterial Blood Gas Hematocrit 27.6 % (37-47); Blood Gas Sample Site Brachial, right; Blood Gas Sample Type Arterial; HCO3 ABG 28.2 mmol/L (22-26); Oxygen Device NC; PO2 ABG 80.6 mmHg (80.0-100.0)
[2021-07-05] MEDS: sodium chloride 0.9% 1,000 ML 999 ML IV (22:23)
[2021-07-05 22:25] LABS: Basophils % 0.2 %; Eosinophils # 0.7 10^3/uL (0.0-0.8); Eosinophils % 8.4 %; Hematocrit 31.9 % (37.0-47.0); Hemoglobin 9.2 g/dL (11.5-15.3); Lymphocytes # 0.5 10^3/uL (0.8-4.8); Lymphocytes % 5.5 %; Mean Corpuscular HGB Conc 28.8 g/dL (30.0-36.0); Mean Corpuscular Hemoglobin 29.6 pg (28.0-34.0); Mean Corpuscular Volume 102.6 fl (81-99); Mean Platelet Volume 12.3 fL (7.4-10.4); Monocytes # 0.2 10^3/uL (0.2-0.9); Monocytes % 1.8 %; Neutrophils # 6.94 10^3/uL (1.8-7.7); Neutrophils % 83.5 %; Nucleated Red Blood Cells % 0 %; Platelet Count 201 10^3/cmm (130-400); Red Blood Count 3.11 10^6/uL (4.1-5.3); Red Cell Distribution Width 17.1 % (12.1-15.1); White Blood Count 8.3 10^3/uL (4.0-10.0)
[2021-07-05] MEDS: midodrine 5 mg TABLET 10 MG PO (22:50)
[2021-07-05] MEDS: piperacillin-tazobactam 3.375 GM in sodium chloride 0.9% (plus) 50 ML IV (22:50)
[2021-07-05 22:55] LABS: Troponin(5th) Baseline 145 ng/L (0-10)
--- NOTE | 2021-07-05 22:59 | ECG_ITS ---
[facility] Test Date: 2021-07-05 Pat Name: Carole Lee Department: Room: Gender: Female Care Transitions Manager: : 1945 Requested By: Duke Geronimo Order Number: [id number] Danielle MD: Rupinder Melchor M.D. Measurements Intervals [place] Rate: 106 P: DC: QRS: 118 QRSD: 118 T: 0 QT: 367 QTc: 489 Interpretive Statements ATRIAL FIBRILLATION WITH RAPID VENTRICULAR RESPONSE RIGHT AXIS DEVIATION [QRS AXIS > 100] LOW QRS VOLTAGE [QRS DEFLECTION < 0.5/1.0 mV IN LIMB/CHEST LEADS] ANTEROSEPTAL MYOCARDIAL INFARCTION , PROBABLY OLD [40+ ms Q WAVE IN V1-V4] Compared to ECG 07/05/2021 21:11:08 Low QRS voltage now present Myocardial infarct finding still present Electronically Signed On 07-07-2021 17:15:41 DIESEL BUS MECHANIC by Rupinder Melchor M.D. [id number]
[2021-07-05 23:00] LABS: Alanine Aminotransferase 14 U/L (0-33); Albumin Level 2.7 g/dL (3.5-5.2); Alkaline Phosphatase 207 IU/L (35-105); Blood Urea Nitrogen 44 mg/dL (8-23); Calcium 8.2 mg/dL (8.5-10.5); Carbon Dioxide 23 mmol/L (22-29); Chloride 101 mmol/L (98-107); Globulin 3.6 g/dL (1.3-4.6); Glucose 120 mg/dL (65-115); Osmolality Calculated 296 mOsm/kg (285-295); Sodium 137 mmol/L (136-145); Thyroid Stimulating Hormone 1.28 uIU/mL (0.27-4.20); Total Bilirubin 0.4 mg/dL (0.15-1.2); Total Protein 6.3 g/dL (6.6-8.7)
[2021-07-05 23:02] LABS: Anion Gap 18.1 (5-19); Aspartate Amino Transferase 35 U/L (0-32); Potassium 5.1 mmol/L (3.5-5.1)
[2021-07-05] MEDS: vancomycin 1,000 MG in sodium chloride 0.9% 250 ML 250 MG IV (23:18)
[2021-07-05 23:24] LABS: NT Pro B Type Natriuretic Pept 58931 pg/mL (0-450)
--- NOTE | 2021-07-05 23:44 | P.HP_ITS ---
Providers/Chief Complaint Admitting Physician: Gerardo Pierre Primary Care Provider: Pascual Kay MD Chief Complaint: AMS History of Present Illness 75-year-old female with a past medical history significant for hypertension, hyperlipidemia, hypothyroidism, diabetes mellitus, peripheral vascular disease, chronic stage 3 kidney disease with baseline creatinine around 2.5, chronic s ystolic heart failure with last known EF of 20-25%,coronary artery disease s/p recent PCI with stent placement who was discharged from hospital after prolonged admission on 07/03 now presenting to hospital altered mental status. Patient is a poor historian. Recently treated for urinary tract infection. Does have a history of ESBL E-coli UTI in 02/2021. Laboratory workup arrival showed a WBC of 8.3, hemoglobin of 9.2, hematocrit 31.9 and a platelet count of 201. INR 2.0. Arterial blood gas showed a pH of 7.29, pCO2 of 58.6, PO2 of 80.6 and bicarb 28.2 on 2 L of O2 via nasal cannula. Sodium 137, potassium 5.1, chloride 101, bicarb 23, BUN 44 and a creatinine of 3.5. On 07/04 this was 2.6. Troponin T baseline of 145, repeat at 2hr [place] 143.2[place] [address]. UA showed 2+ leukocyte esterase. Chest xray showed evidence of fluid overload with central pulmonary vascular congestion, increased interstitial lung markings, small to moderate left side pleural effusion and retrocardiac opacity and ill defined opacity in the right lung base likely atelectasis vs infiltrate which are not new findings compared to prior chest x-ray. Head CT did not show any acute intracranial abnormality. ER medications Lasix 60 mg IV x 1 Midodrine 10 mg PO x 1 Zosyn 3.375g IV x1 Vancomycin 1g IV x 1 NS 1L bolus x 2 Review of Systems General: Reports: ROS unobtainable due to mental status Medications/Allergies Home Medications Medication Instructions Recorded Confirmed Last Taken Type clopidogrel 75 mg PO DAILY@0800 11/29/20 07/04/21 07/04/21 History gabapentin 100 mg capsule 100 mg PO BID@0800,1999 cap 12/05/20 07/04/21 07/04/21 07:38 History atorvastatin 80 mg PO BEDTIME@12/07/20 07/04/21 06/12/21 History calcitriol 0.25 mcg PO DAILY@0800 07/06/21 12/22/21 12/22/21 History Enema Disposable 118 ml UT DAILY PRN 02/28/21 07/04/21 Unknown History citalopram 10 mg PO DAILY@0800 02/28/21 07/04/21 07/04/21 History docusate sodium 100 mg PO DAILY@02/28/21 07/04/21 07/04/21 History bumetanide 2 mg PO DAILY@06/13/21 07/04/21 07/04/21 07:38 History insulin aspart U-100 [Novolog See Rx Instructions .ROUTE .COMPLEX 06/13/21 07/04/21 07/04/21 07:10 History Flexpen U-100 Insulin] 3 units meclizine 12.5 mg PO DAILY@06/13/21 07/04/21 07/04/21 History metoprolol tartrate 25 mg PO BID@,06/13/21 07/04/21 07/04/21 07:38 History mupirocin 1 applic TOPICAL BID PRN 06/13/21 07/04/21 Unknown History phenytoin sodium extended 200 mg PO BID@,06/13/21 07/04/21 07/04/21 07:38 History potassium chloride 10 meq PO DAILY@06/13/21 07/04/21 07/04/21 History sennosides-docusate sodium 1 tab PO DAILY@06/13/21 07/04/21 07/04/21 History [Senna-S] warfarin [Jantoven] 1.5 mg PO DAILY@1400 30 Days #30 06/27/21 07/04/21 Unknown Rx tab Levemir FlexTouch U-100 Insuln 5 unit SUBCUT BEDTIME@07/04/21 07/04/21 Unknown History aspirin [Aspir-81] 81 mg PO DAILY@07/04/21 07/04/21 Unknown History bisacodyl 10 mg UT DAILY PRN 07/04/21 07/04/21 Unknown History folic acid 2 mg PO DAILY@07/04/21 07/04/21 Unknown History levothyroxine 25 mcg PO DAILY@07/04/21 07/04/21 07/04/21 History levothyroxine 200 mcg PO DAILY@06 07/04/21 07/04/21 07/04/21 History magnesium hydroxide [Milk of 30 ml PO DAILY PRN 07/04/21 07/04/21 Unknown History Magnesia] midodrine 10 mg PO TID #90 tab 07/04/21 Unknown Rx nitrofurantoin monohyd/m-cryst 100 mg PO BID 7 Days #14 cap 07/04/21 Unknown Rx [Macrobid] pantoprazole [Protonix] 40 mg PO DAILY@07/04/21 07/04/21 07/04/21 History spironolactone 12.5 mg PO DAILY@08 07/04/21 07/04/21 07/04/21 History Allergies Allergy/AdvReac Type Severity Reaction Status Date / Time gentamicin Allergy Unknown Verified 07/05/21 21:12 hydromorphone [From Dilaudid] Allergy Unknown Verified 07/05/21 21:12 PFSH Acute PFSH: Medical History Acute hypercapnic respiratory failure Afib Anemia Atrial fibrillation with RVR CAD (coronary artery disease) Chronic anticoagulation Eliquis CKD (chronic kidney disease) Congestive heart failure Diabetes Dyslipidemia Hematoma of left flank HTN (hypertension) Morbid obesity Morbid obesity NSTEMI (non-ST elevated myocardial infarction) PVD (peripheral vascular disease) 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) Status post insertion of drug-eluting stent into left anterior descending (LAD) artery Urine retention Venous stasis Surgical History History of ankle surgery History of cataract surgery History of cholecystectomy History of heart artery stent History of umbilical hernia repair S/P hemodialysis catheter insertion (11/22/20) Right internal jugular vein d/c 12/25/20 Family History Other Cancer Diabetes Social History Smoking and tobacco status: never smoked Alcohol intake: never Marital status: / Current occupational status: retired History of recent travel: No Vitals/I&O/Wt Last Vital Signs Temp 98.2 F 07/06/21 02:25 Pulse 110 H 07/06/21 02:25 Resp 18 07/06/21 02:25 BP 106/70 07/06/21 02:25 Pulse Ox 95 07/06/21 02:25 07/05/21 07/05/21 07/06/21 14:59 22:59 06:59 Intake Total 1300 / 1300 Balance 1300 / 1300 Weight last 48 hrs Weight 157.442 kg Weight 157.425 kg Physical Exam Narrative: EXAM NARRATIVE: General-alert awake, however confused HEENT-grossly unremarkable CVS -irregularly irregular rhythm Chest- decreased in bilateral bases Abdomen- soft nontender nondistended Extremities-bilateral lower extremity edema Data : 07/05/21 22:19 07/05/21 22:19 Micro: Microbiology 07/05/21 23:00 Blood Culture - Preliminary Blood SPECIMEN COLLECTED 07/05/21 22:19 Blood Culture - Preliminary Blood SPECIMEN COLLECTED A&P Assessment and plan (1) Altered mental status: Status: Acute (2) CHF (congestive heart failure): Status: Acute (3) Diabetes: Status: Acute Qualifiers: Chronic kidney disease stage: stage 3 (moderate) Chronic kidney disease stage 3 subtype: stage 3b (GFR 30-44) Diabetes mellitus complication detail: with chronic kidney disease Diabetes mellitus complication status: with kidney complications Diabetes mellitus intermediate manager insulin use: with group home use Diabetes mellitus type: type 2 Qualified Code(s): E11.22 - Type 2 diabetes mellitus with diabetic chronic kidney disease; N18.32 - Chronic kidney disease, stage 3b; Z79.4 - residential (current) use of insulin (4) Acute renal failure superimposed on stage 3 chronic kidney disease: Status: Acute (5) Orthostatic hypotension: Status: Acute (6) Atrial fibrillation with RVR: Status: Acute (7) Venous stasis: Status: Chronic (8) Dyslipidemia: Status: Chronic (9) Abnormal urinalysis: Status: Acute Additional A&P Information Altered Mental Status Etiology multifactorial Metabolic with component of infectious process Gradually improving since admit CT head - negative NPO until bedside swallow Acute on Chronic Stage 3 kidney disease with oliguria Creatinine baseline around 2-2.6 Now increased to 3.5 Acevedo [address] Etiology multifactorial. Infectious/pre-renal/recent contrast Lasix 60 mg IV x 1 in ER Will hold further diuretics Nephrology consult NS 2L bolus in ER - Hold on further IVF Repeat BMP in am Abnormal UA suspected UTI S/p vancomycin/zosyn in ER Hx of ESBL E-coli Will start Premixin Follow up on culture Additional Medical Problems Paroxysmal Atrial Fibrillation on Coumadin Chronic systolic heart failure - last known EF 20-25% Coronary artery disease s/p recent PCI/Stent (07/02 ) Chronic hypercapnia respiratory failure Orthostatic hypotension on midodrine Hypertension Hyperlipidemia Hypothyroidism Diabetes Mellitus PVD DVT ppx Theraputic INR on coumadin Attestations Medical Necessity Statement*: Anticipate over2 midnights stay in hospital for evaluation and treatment Time Spent in Patient Care: Greater than 35 minutes (>than 50% of time spent in counselling and/or direct pt care on unit) . Coding Level of Care Code Acute Tassel Making Machine Operator for Chg Fwd Diagnoses Altered mental status R41.82 CHF (congestive heart failure) I50.9 Diabetes E11.22; N18.32; Z79.4 Chronic kidney disease stage: stage 3 (moderate) Chronic kidney disease stage 3 subtype: stage 3b (GFR 30-44) Diabetes mellitus complication detail: with chronic kidney disease Diabetes mellitus complication status: with kidney complications Diabetes mellitus group home insulin use: with group home use Diabetes mellitus type: type 2 Acute renal failure superimposed on stage 3 chronic kidney disease N17.9; N18.30 Orthostatic hypotension I95.1 Atrial fibrillation with RVR I48.91 Venous stasis I87.8 Dyslipidemia E78.5 Abnormal urinalysis R82.90
[2021-07-06] VITALS (99 sets, daily range): BP systolic 49–143; BP diastolic 37–91; PULSE 59–129; RESP 8–27; TEMP 36.2–37; O2SAT 81–100; BMI 54.3
[2021-07-06 00:31] LABS: Troponin 5 2HR 143.2 ng/L (0-10); Troponin 5 2HR Delta -1.8 ABS# (0-10)
--- NOTE | 2021-07-06 00:42 | PC.NURSE ---
75 yo female resident of senior living brought in for AMS. staff unsure on onset. she was seen 1 day ago and dx with UTI. tonight she comes in hypotensive. oriented to name only. she repeatedly states she wants to go home. she denies pain anywhere. she is afebrile.
--- NOTE | 2021-07-06 00:59 | PC.NURSE ---
Dr Pierre at nurse's station and received clarification to have patient admit to CSU vs Medsurg. Order placed per Dr Pierre. RBVO.
[2021-07-06 01:36] LABS: Charge for UA Resulting for Rev
[2021-07-06 01:46] LABS: Urine Appearance Cloudy (CLEAR); Urine Color Yellow (Yellow)
[2021-07-06 01:47] LABS: Add Urine Microscopic? NO; Bilirubin Urine Neg (Negative); Blood Urine 3+ (Negative); Glucose Urine UA Norm (Normal); Ketones Urine Negative (Negative); Leukocyte Esterase Urine 2+ (Negative); Nitrate Urine Negative (Negative); Protein Urine 3+ (Negative); Specific Gravity, Urine 1.015 (1.005-1.030); Urobilinogen Urine Neg (Negative); pH Urine 5 (5-7)
--- NOTE | 2021-07-06 02:23 | USCV_ITS ---
Carole Lee Age: 75 Gender: F : 1945 Exam Date: 07/06/2021 07:24 Ordering Phys: Gerardo Pierre MD Technologist: Connie Valenzuela Exam Location: [facility] [place] Indication: FLUID OVERLOAD BP: 92 / 43 HR: 97 Rhythm: Other Technical Quality: Adequate MEASUREMENTS (Male / Female) Normal Values 2D ECHO LV Diastolic Diameter PLAX 5.7 cm 4.2 - 5.9 / 3.9 - 5.3 cm LV Systolic Diameter PLAX 4.7 cm LV Chamber Size 4.0 cm IVS Diastolic Thickness 1.4 cm 0.6 - 1.0 / 0.6 - 0.9 cm IVS Systolic Thickness 1.4 cm LVPW Diastolic Thickness 1.5 cm 0.6 - 1.0 / 0.6 - 0.9 cm LVPW Systolic Thickness 1.4 cm RV Chamber Size 3.9 cm LVOT Diameter 2.0 cm LV Ejection Fraction 2D Teich 34.9 % LV Ejection Fraction MOD 2C 25.1 % LV Ejection Fraction 2C AL 24.5 % LA Diameter 4.9 cm LA Width 3.5 cm LA Height 3.9 cm RA Width 4.3 cm RA Height 5.0 cm Aorta at Sinotubular Diameter 3.3 cm M-MODE Aortic Annulus Diameter 3.3 cm LA Ao Ratio MM 1.7 MV E Point Septal Separation 1.5 cm FINDINGS Left Ventricle Dilated left ventricle. Severely decreased left ventricular systolic function. Left ventricular ejection fraction is estimated at 20-25 %. Global hypokinesis more pronounced in septal and anterior chaudhary. Abnormal septal motion. Right Ventricle Moderately decreased right ventricular size and systolic function. Right Atrium Mildly increased right atrial size. Right atrial pressure estimated at 15 mm Hg. Left Atrium Moderately increased left atrial size. Mitral Valve Moderate mitral annular calcification. Moderately thickened mitral valve. Mild mitral valve regurgitation. Aortic Valve Moderately thickened and calcified aortic valve. Tricuspid Valve Trace to mild tricuspid valve regurgitation. Pulmonic Valve Pulmonic valve not well visualized. Pericardium No pericardial effusion. Aorta Normal sized aortic root. Dilated inferior vena cava with no respiratory variation. CONCLUSIONS 1. Dilated left ventricle. Severely decreased left ventricular systolic function. Left ventricular ejection fraction is estimated at 20-25 %. Global hypokinesis more pronounced in septal and anterior chaudhary. Abnormal septal motion. 2. Moderately decreased right ventricular size and systolic function. 3. Right atrial pressure estimated at 15 mm Hg. 4. When compared to previous echocardiogram dated 06/14/21, there may not have been any significant change. Rupinder Melchor MD (Electronically Signed) Final Date: 06 July 2021 11:44 S
[2021-07-06] MEDS: FUROsemide 10 mg/mL SDV 10mL 60 MG IVP (02:27)
--- NOTE | 2021-07-06 02:59 | ECG_ITS ---
[facility] Test Date: 2021-07-06 Pat Name: Carole Lee Department: Room: 111 Gender: Female Ip Architect: : 1945 Requested By: Duke Geronimo Order Number: [id number] Danielle MD: Rupinder Melchor M.D. Measurements Intervals [place] Rate: 93 P: GA: QRS: 139 QRSD: 122 T: 0 QT: 402 QTc: 500 Interpretive Statements ATRIAL FIBRILLATION RIGHT AXIS DEVIATION [QRS AXIS > 100] ANTEROSEPTAL MYOCARDIAL INFARCTION , PROBABLY OLD [40+ ms Q WAVE IN V1-V4] Compared to ECG 07/05/2021 23:20:06 No significant changes Electronically Signed On 07-07-2021 17:14:26 DRUM CARRIER by Rupinder Melchor M.D. [id number]
--- NOTE | 2021-07-06 03:41 | PC.NURSE ---
Patient received from emergency room with zosyn infusing and ending. Flushed Iv, flushed well. Iv lasix given per order. Patient with bruising on both arms and ER stated IV stick very hard to do. Stated ultrasound was used to find veins. After patient eating and drinking ice, she started complaining the her IV hurt. Due to bruising and possible hematoma formation, unable to verify infiltration, however patient still complaining of it being painful. Called ER for new IV start. See note from charge accounts audit clerk.
--- NOTE | 2021-07-06 03:41 | PC.NURSE ---
Patient has multiple bruises from many IV attempts. She is crying out with pain to current IV. Bruising noted unsure if site is infiltrated vs small hematoma present. Appears to flush okay. Informed Dr Pierre of IV difficulties. Doctor to place order for possible PICC line later today. Placed call to ER and ICU for help with IV access using ultrasound. Will continue to monitor.
--- NOTE | 2021-07-06 04:35 | PC.NURSE ---
Addendum entered by June Mendoza RN 07/06/21 04:37: Also informed Dr Pierre that patient has had no urine output. Acevedo catheter in place. Original Note: ER, RN to attempt IV access with use of ultrasound. RN made 3 attempts. No IV access obtained. Informed Dr Pierre patient has no IV and are not able to obtain access at this time. Doctor to place order for PICC and possible HD catheter. Nephrology consult to be made as well.
[2021-07-06 04:48] LABS: Basophils % 0.2 %; Eosinophils # 0.5 10^3/uL (0.0-0.8); Eosinophils % 2.5 %; Hematocrit 28.8 % (37.0-47.0); Hemoglobin 8.7 g/dL (11.5-15.3); Lymphocytes # 0.3 10^3/uL (0.8-4.8); Lymphocytes % 1.4 %; Mean Corpuscular HGB Conc 30.2 g/dL (30.0-36.0); Mean Corpuscular Hemoglobin 30.6 pg (28.0-34.0); Mean Corpuscular Volume 101.4 fl (81-99); Mean Platelet Volume 12.6 fL (7.4-10.4); Monocytes # 0.5 10^3/uL (0.2-0.9); Monocytes % 2.9 %; Neutrophils # 17.03 10^3/uL (1.8-7.7); Neutrophils % 92.3 %; Nucleated Red Blood Cells % 0.1 %; Platelet Count 182 10^3/cmm (130-400); Red Blood Count 2.84 10^6/uL (4.1-5.3); Red Cell Distribution Width 17.1 % (12.1-15.1); White Blood Count 18.5 10^3/uL (4.0-10.0)
[2021-07-06 04:58] LABS: Troponin 5 6HR 139.6 ng/L (0-10); Troponin 5 6HR Delta -5.4 ng/L (0-12)
[2021-07-06 05:03] LABS: Procalcitonin 0.47 ng/mL (0-0.5); Thyroid Stimulating Hormone 0.94 uIU/mL (0.27-4.20)
[2021-07-06 05:15] LABS: Alanine Aminotransferase 12 U/L (0-33); Albumin Level 2.4 g/dL (3.5-5.2); Alkaline Phosphatase 172 IU/L (35-105); Anion Gap 18.6 (5-19); Aspartate Amino Transferase 26 U/L (0-32); Blood Urea Nitrogen 42 mg/dL (8-23); Calcium 7.6 mg/dL (8.5-10.5); Carbon Dioxide 20 mmol/L (22-29); Chloride 102 mmol/L (98-107); Globulin 3.2 g/dL (1.3-4.6); Glucose 101 mg/dL (65-115); Osmolality Calculated 293 mOsm/kg (285-295); Potassium 4.6 mmol/L (3.5-5.1); Sodium 136 mmol/L (136-145); Total Bilirubin 0.4 mg/dL (0.15-1.2); Total Protein 5.6 g/dL (6.6-8.7)
[2021-07-06 06:19] LABS: Phenytoin Dilantin 15.6 ug/mL (10-20)
--- NOTE | 2021-07-06 07:06 | PC.NURSE ---
Notified Pt is lethargic, able to open eyes on verbal commands. BP is 85/49, map-61, cool extremities. NO urine Output noted post fluids and IV lasix given in ER. multiple iv sticks attempted for blood draws and IV line which are all unsuccessful. NO iV access currently. Notified Dr. Perry and updated with pt's conditions, received orders via telephone for abg, cbc,bmp,lactic and mag, ekg and trop. [phone]-Dr. Perry at bedside. bladder scan shows no retention. charlton cath irrigated with 40 ml. discussion to transfer pt to ICU.
[2021-07-06 07:14] LABS: Glucose Point of Care 96 mg/dL (70-110)
[2021-07-06 07:24] LABS: Arterial Blood Gas Hematocrit 25.3 % (37-47); Base Excess ABG -0.2 mmol/L (-2.0-2.0); Blood Gas Operator Identificat glc; Blood Gas Sample Site Brachial, left; Blood Gas Sample Type Arterial; Carboxyhemoglobin 1.8 %THgb (0.4-20.1); HCO3 ABG 26.5 mmol/L (22-26); HGB O2 Sat 95.1 % (95-100); Ionized Calcium Level - ABG 1.2 mmol/L (1.1-1.4); Methemoglobin 0.1 % (0.4-1.5); Oxygen Device NC; Oxygen Saturation ABG 96.9; PO2 ABG 83.4 mmHg (80.0-100.0); Potassium Level - ABG 4.5 mmol/L (3.5-5.0); Total Hemoglobin 8.2 g/dL (12-16)
[2021-07-06 07:25] LABS: Alveolar-Arterial Oxygen Gradi 6.2 mmHg (5-10)
--- NOTE | 2021-07-06 07:45 | PC.NURSE ---
catheter irrigated irrigated 40 ml in the catheter. no clots noted. flushes great. no resistance noted.
--- NOTE | 2021-07-06 08:00 | PC.NURSE ---
report called to icu talked to CHEYENNE Reynoso for hand off report. pt is transferring for central line and hemodialysis access. and initiate vasopressor.
--- NOTE | 2021-07-06 08:36 | PM.MISC ---
Miscellaneous Note Purpose of Documentation: There is no IV access. I have requested for bladder scan as well. Acevedo has been flushed. Urine output 0 overnight. Consulted nephrology. Will place dialysis catheter and triple lumen CVC. General surgery consulted for line placement. BP 87/46, HR 100. Pt does wake up and speak briefly. Lungs crackles bilaterally, appears fluid overloaded. Lower extremities warm appearing at this time. Will move patient to ICU for closer monitoring. I have called son to update him of patient's medical status. Son states, from previous hospital admission he was told that patient might end up needing dialysis. Code status was also discussed and patient to remain full code as per family and patient wishes. Consent obtained by nurses for line placement. He was updated in detail with patient's current status including guarded prognosis. He understands. Will move patient to unit for further management.
--- NOTE | 2021-07-06 08:58 | USCV_ITS ---
Carole Lee Age: 75 Gender: F : 1945 Exam Date: 07/06/2021 09:43 Ordering Phys: Citlali Perry MD Technologist: MIYA Exam Location: [facility] [place] Indication: PROCEDURES: The venous duplex Doppler examination of both lower extremities was performed in the standard fashion. The following venous structures were evaluated: common femoral vein, profunda vein, proximal portion of the greater saphenous vein, superficial femoral vein, and the popliteal vein. In addition, the posterior tibial veins were evaluated. FINDINGS: Normal 2-D Doppler and augmentation and compressibility throughout the lower extremity venous structures. Additional imaging through the proximal calf veins also reveals no thrombus. Limited evaluation of the greater saphenous vein is patent with no thrombus. CONCLUSIONS No DVT bilateral lower extremities. Dr. Lisa Naranjo DO (Electronically Signed) Final Date: 06 July 2021 11:27 S
--- NOTE | 2021-07-06 10:21 | PC.OT ---
Evaluation not completed on today's date due to change in patient's medical status. Will attempt tomorrow if patient is stable.
--- NOTE | 2021-07-06 11:25 | PM.CONSULT ---
Providers/Reason For Consult Consulting Physician/Specialty*: Nephro Reason for Consult*: Eval for TIFFANY Attending Physician: Citlali Perry MD Primary Care Provider: Pascual Kay MD History of Present Illness History of Present Illness Thank for consultation, today I I reviewed Ms. Lee whom I know well from recent hospitalization. Her baseline serum creatinine is 1.9 mg/dL, she recently had acute kidney injury, was subsequently in a state of recovery, she did have left heart angiography and a stent was placed and subsequently discharged on 07/03. On 07/04 she re-presented to the emergency room with syncope and some altered mental status. She then came again to the hospital on 07/05 i.e. yesterday again with worsening confusion. She was diagnosed urinary tract infection, chest x-ray demonstrates bilateral vascular congestion. She received combination therapy including Lasix, midodrine, Zosyn, vancomycin normal saline. She has been essentially anuric following arrival from the emergency room. She is currently confused but mostly comfortable. She is breathing comfortably on nasal cannula. Hemodynamics have been soft over the last few days, even when she briefly came to the hospital on 07/04 it was noted that her blood pressure is 84/65, improving to 104/74 at the time of her discharge. On arrival and this morning was 98/83. She denies any chest pain, palpitations, denies any cough cold fevers chills. Review of Systems General: Reports: ROS unobtainable due to mental status Meds/Allergies Home Medications and Allergies Home Medications Medication Instructions Recorded Confirmed Last Taken Type clopidogrel 75 mg PO DAILY@0800 11/29/20 07/06/21 07/04/21 History gabapentin 100 mg capsule 100 mg PO BID@08,1999 cap 12/05/20 07/06/21 07/04/21 07:38 History atorvastatin 80 mg PO BEDTIME@12/07/20 07/06/21 1 Day Ago History ~07/05/21 calcitriol 0.25 mcg PO DAILY@0800 01/16/21 07/06/21 07/04/21 History Enema Disposable 118 ml KS DAILY PRN 02/28/21 07/06/21 Unknown History citalopram 10 mg PO DAILY@0800 02/28/21 07/06/21 07/04/21 History docusate sodium 100 mg PO DAILY@08 02/28/2124/21 12/22/21 History bumetanide 2 mg PO DAILY@06/13/21 07/06/21 07/04/21 07:38 History insulin aspart U-100 [Novolog See Rx Instructions .ROUTE .COMPLEX 06/13/21 07/06/21 07/04/21 07:10 History Flexpen U-100 Insulin] 3 units meclizine 12.5 mg PO DAILY@06/13/21 07/06/21 07/04/21 History metoprolol tartrate 25 mg PO BID@06/13/21 07/06/21 07/04/21 07:38 History mupirocin 1 applic TOPICAL BID PRN 06/13/21 07/06/21 Unknown History phenytoin sodium extended 200 mg PO BID@06/13/21 07/06/21 07/04/21 07:38 History potassium chloride 10 meq PO DAILY@06/13/21 07/06/21 07/04/21 History sennosides-docusate sodium 1 tab PO DAILY@06/13/21 07/06/21 07/04/21 History [Senna-S] warfarin [Jantoven] 1.5 mg PO DAILY@1400 30 Days #30 06/27/21 07/06/21 Unknown Rx tab Levemir FlexTouch U-100 Insuln 5 unit SUBCUT BEDTIME@07/04/21 07/06/21 Unknown History aspirin [Aspir-81] 81 mg PO DAILY@07/04/21 07/06/21 07/05/21 09:00 History bisacodyl 10 mg KS DAILY PRN 07/04/21 07/06/21 Unknown History folic acid 2 mg PO DAILY@07/04/21 07/06/21 Unknown History levothyroxine 25 mcg PO DAILY@07/04/21 07/06/21 07/04/21 History levothyroxine 200 mcg PO DAILY@07/04/21 07/06/21 07/04/21 History magnesium hydroxide [Milk of 30 ml PO DAILY PRN 07/04/21 07/06/21 Unknown History Magnesia] midodrine 10 mg PO TID #90 tab 07/04/21 07/06/21 Unknown Rx nitrofurantoin monohyd/m-cryst 100 mg PO BID 7 Days #14 cap 07/04/21 07/06/21 Unknown Rx [Macrobid] pantoprazole [Protonix] 40 mg PO DAILY@08 07/04/21 07/06/21 07/04/21 History spironolactone 12.5 mg PO DAILY@08 07/04/21 07/06/21 07/04/21 History Allergies Allergy/AdvReac Type Severity Reaction Status Date / Time gentamicin Allergy Unknown Verified 07/05/21 21:12 hydromorphone [From Dilaudid] Allergy Unknown Verified 07/05/21 21:12 Current Medications Current Medications Generic Name Dose Route Start Last Admin Trade Name Freq PRN Reason Stop Dose Admin Aspirin 81 mg 07/06/21 08:00 07/06/21 09:09 Aspirin 81 Mg Ec Tablet PO Not Given DAILY@08 [facility] Calcitriol 0.25 mcg 07/06/21 08:00 07/06/21 09:09 Calcitriol 0.25 Mcg Capsule PO Not Given DAILY@0800 [facility] Citalopram Hydrobromide 10 mg 07/06/21 09:00 07/06/21 09:10 Citalopram 20 Mg Tablet PO Not Given DAILY [facility] Clopidogrel Bisulfate 75 mg 07/06/21 08:00 07/06/21 09:09 Clopidogrel 75 Mg Tablet PO Not Given DAILY@0800 [facility] Insulin Human Lispro 0 unit 07/06/21 08:00 07/06/21 10:51 Insulin Lispro 100 Unit/1 Ml SUBCUT Not Given WM&BEDTIME [facility] Protocol Levothyroxine Sodium 25 mcg 07/06/21 06:00 07/06/21 07:06 Levothyroxine 25 Mcg Tablet PO Not Given DAILY@06 [facility] Levothyroxine Sodium 200 mcg 07/06/21 06:00 07/06/21 07:06 Levothyroxine 200 Mcg Tablet PO Not Given DAILY@06 [facility] Pantoprazole Sodium 40 mg 07/06/21 08:00 07/06/21 09:[address] 40 Mg Tablet PO Not Given DAILY@08 [facility] Phenytoin 200 mg 07/06/21 08:00 07/06/21 09:10 Phenytoin Er 100 Mg Capsule PO Not Given BID@08,20 [facility] PFSH Acute PFSH: Medical History Acute hypercapnic respiratory failure Afib Anemia Atrial fibrillation with RVR CAD (coronary artery disease) Chronic anticoagulation Eliquis CKD (chronic kidney disease) Congestive heart failure Diabetes Dyslipidemia Hematoma of left flank HTN (hypertension) Morbid obesity Morbid obesity NSTEMI (non-ST elevated myocardial infarction) PVD (peripheral vascular disease) 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) Status post insertion of drug-eluting stent into left anterior descending (LAD) artery Urine retention Venous stasis Surgical History History of ankle surgery History of cataract surgery History of cholecystectomy History of heart artery stent History of umbilical hernia repair S/P hemodialysis catheter insertion (11/22/20) Right internal jugular vein d/c 12/25/20 Family History Other Cancer Diabetes Social History Smoking and tobacco status: never smoked Alcohol intake: never Marital status: / Current occupational status: retired History of recent travel: No Vitals/I&O/Wt Last Vital Signs Temp 98.6 F 07/06/21 04:00 Pulse 107 H 07/06/21 05:55 Resp 15 07/06/21 04:00 BP 98/83 07/06/21 04:00 Pulse Ox 98 07/06/21 04:00 07/05/21 07/06/21 07/06/21 22:59 06:59 14:59 Intake Total 1350 / 1350 100 / 100 Balance 1350 / 1350 100 / 100 Weight last 48 hrs Weight 154.902 kg Weight 157.442 kg Weight 157.425 kg Physical Exam Narrative: EXAM NARRATIVE: Constitutional: Awake, comfortable HEENT: Wet mucosa, no jvp, non icteric Lungs: Bilaterally clear without discernible wheeze or rales in all lung zones CVS: S1 S2, no murmurs Abdo: Soft, BS ok Ext 4: Minimal edema, peripheral perfusion with no cyanosis Neurological: Grossly non-focal Data Micro: Micro: Microbiology 07/05/21 23:00 Blood Culture - Pr eliminary Blood SPECIMEN COLLEC CAROL ANN 07/05/21 22:19 Blood Culture - Pr eliminary Blood SPECIMEN COLLEC CAROL ANN A&P Additional A&P Information 1. Acute renal failure It appears that she has anuric renal failure at this time. Likely from ischemic ATN in the setting of labile hemodynamics and sepsis, contrast nephropathy is also a possibility. As she is anuric and demonstrating vascular congestion on chest x-ray, proceed with gentle dialysis today. Work-up to include renal sonogram Urinalysis with fractional excretion of sodium CPK levels Daily evaluation for need for dialysis Strict I's and O's Dose medication for GFR less than 15 on dialysis 2. Chemistry Noncritical aberration including mild anion gap metabolic acidosis. Continue close monitoring whilst in renal failure. 3. Hypotension Unclear whether this is purely septic or also cardiac in nature. Currently on Levophed, would favor diuretics and avoid IV fluid given vasculature congestion seen on chest x-ray Titrate pressors as needed. Consider 2D echo and cardiac evaluation given recent stent placement. 4. ID issues Leukocytosis on arrival, urine with evidence of infection on 07/04 and also on admission. Funguria found on urinalysis/culture on 07/04. Defer antibiotic coverage to Dr. 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
--- NOTE | 2021-07-06 11:27 | US_ITS ---
WS: [id number] RENAL ULTRASOUND HISTORY: renal failure COMPARISON: 03/01/2021 TECHNIQUE: 2-D and color Doppler imaging of the kidney submitted. Right kidney: 11.2 cm x 5.4 cm x 5.8 cm. Echogenic kidney with mild diffuse cortical thinning throughout. No hydronephrosis. Visualization of the kidney is limited. No mass identified. Left kidney: Not identified. Aorta: Mild atherosclerosis. Urinary Bladder: Nondistended bladder. US/US renal BI* [id number] IMPRESSION: 1. Moderate chronic medical renal disease RIGHT kidney. No hydronephrosis. 2. LEFT kidney is not identified. Not identified secondary to body habitus. No history of prior nephrectomy.
--- NOTE | 2021-07-06 15:40 | PM.OP ---
Operative Report Date of procedure: DATE OF SERVICE July 06, 2021 PREPROCEDURE DIAGNOSIS Need for hemodialysis POSTPROCEDURE DIAGNOSIS same PROCEDURE Ultrasound-guided right femoral vein hemodialysis catheter placement SURGEON Scottie Jo DO. ANESTHESIA 1% lidocaine plain local anesthesia. ESTIMATED BLOOD LOSS 30 cc. SPECIMENS None submitted. INDICATION FOR PROCEDURE Patient is 75 year old female in need of hemodialysis. Informed consent was obtained by DPOA. DESCRIPTION Patient was placed in slight Trendelenburg position and prepped and draped in sterile fashion. Right femoral vein was readily identified with bedside ultrasound, overlying skin anesthetized and vein accessed under ultrasound guidance. Guidewire fed easily, dark red nonpulsatile blood was aspirated. Dilator was passed over the wire and exchanged for the pre-flushed 7-Bel[place]ian triple-lumen catheter. All ports were easily aspirated of dark red nonpulsatile blood and flushed with sterile saline. Line was secured with 2-0 silk. Sterile occlusive dressing placed. IV bags were placed over the site for pressure. COMPLICATIONS None apparent at present. Pre-op Diagnosis: recurrent heart failure difficult to control with optimal medical regimen,
--- NOTE | 2021-07-06 15:43 | P.OP_ITS ---
Operative Report Date of procedure: DATE OF SERVICE July 06, 2021 PREPROCEDURE DIAGNOSIS Hemodynamic instability, suspected sepsis, need for central venous access for pressor support and IV access. POSTPROCEDURE DIAGNOSIS same. PROCEDURE Ultrasound-guided left femoral central venous catheter placement. SURGEON Scottie Jo DO. ANESTHESIA 1% lidocaine plain local anesthesia. ESTIMATED BLOOD LOSS 30 cc. SPECIMENS None submitted. INDICATION FOR PROCEDURE Patient is 75 year old female in need of central access for vasopressors and IV access DESCRIPTION Patient was placed in slight Trendelenburg position and prepped and draped in sterile fashion. Left femoral vein was readily identified with bedside ultras ound, overlying skin anesthetized and vein accessed under ultrasound guidance. Guidewire fed easily, dark red nonpulsatile blood was aspirated. Dilator was passed over the wire and exchanged for the pre-flushed 7-Scottish triple-lumen catheter. All ports were easily aspirated of dark red nonpulsatile blood and flushed with sterile saline. Line was secured with 2-0 silk. Sterile occlusive dressing placed. An IV bag was placed over the site for pressure control. COMPLICATIONS None apparent at present. Pre-op Diagnosis: recurrent heart failure difficult to control with optimal medical regimen,
[2021-07-06] MEDS: phytonadione (ADULT) 10 MG in sodium chloride 0.9% 50 ML 153 MG IV (17:06)
[2021-07-06 17:10] LABS: Basophils # 0.1 10^3/uL (0.0-0.1); Basophils % 0.3 %; Eosinophils % 4.1 %; Hematocrit 28.6 % (37.0-47.0); Hemoglobin 8.7 g/dL (11.5-15.3); Lymphocytes # 0.5 10^3/uL (0.8-4.8); Lymphocytes % 1.9 %; Mean Corpuscular HGB Conc 30.4 g/dL (30.0-36.0); Mean Corpuscular Hemoglobin 30.6 pg (28.0-34.0); Mean Corpuscular Volume 100.7 fl (81-99); Mean Platelet Volume 12.1 fL (7.4-10.4); Monocytes # 0.5 10^3/uL (0.2-0.9); Monocytes % 2.3 %; Neutrophils # 21.53 10^3/uL (1.8-7.7); Neutrophils % 90.9 %; Nucleated Red Blood Cells % 0 %; Platelet Count 179 10^3/cmm (130-400); Red Blood Count 2.84 10^6/uL (4.1-5.3); Red Cell Distribution Width 17.1 % (12.1-15.1); White Blood Count 23.7 10^3/uL (4.0-10.0)
--- NOTE | 2021-07-06 17:14 | PM.CONSULT ---
Providers/Reason For Consult Consulting Physician/Specialty*: Dr. Melchor, Cardiology Reason for Consult*: CAD with recent stent Attending Physician: Citlali Perry MD Primary Care Provider: Pascual Kay MD History of Present Illness History of Present Illness Carole Lee is a 75 year old female with complex history with recent hospitalization for nearly 3 weeks. She underwent PCI few days back and was noted to have patent prior LAD and proximal obtuse marginal stents. Left main and RCA with luminal irregularities without significant disease. Mid OM1 with significant stenosis confirmed by IFR of 0.8 s/p balloon angioplasty and drug-eluting stent placement. Patient and family was informed of high risk of contrast-induced nephropathy given her underlying chronic kidney disease. She was discharged on 07/03/21 with BUN of 36 and creatinine of 2.3 and presented the very next day with BUN of 36 and creatinine of 2.6. Yesterday, she presented with altered mental status and was admitted with ABG showing pH pH of 7.29, PCO2 of 59 and PO2 of 81 and FiO2 of 0.28. Rate increase at 3.5. From what I'm told there was no urine output. I have been asked to assist in further management of the patient. History obtained mostly from the chart. Review of Systems General: Reports: ROS unobtainable due to mental status Meds/Allergies Home Medications and Allergies Home Medications Medication Instructions Recorded Confirmed Last Taken Type clopidogrel 75 mg PO DAILY@0800 11/29/20 07/06/21 07/04/21 History gabapentin 100 mg capsule 100 mg PO BID@0800,1999 cap 12/05/20 07/06/21 07/04/21 07:38 History atorvastatin 80 mg PO BEDTIME@12/07/20 07/06/21 1 Day Ago History ~07/05/21 calcitriol 0.25 mcg PO DAILY@0800 01/16/21 07/06/21 07/04/21 History Enema Disposable 118 ml [place] DAILY PRN 02/28/21 07/06/21 Unknown History citalopram 10 mg PO DAILY@0800 02/28/21 07/06/21 07/04/21 History docusate sodium 100 mg PO DAILY@08 02/28/21 07/06/21 07/04/21 History bumetanide 2 mg PO DAILY@08 06/13/21 07/06/21 07/04/21 07:38 History insulin aspart U-100 [Novolog See Rx Instructions .ROUTE .COMPLEX 06/13/21 07/06/21 07/04/21 07:10 History Flexpen U-100 Insulin] 3 units meclizine 12.5 mg PO DAILY@08 06/13/21 07/06/21 07/04/21 History metoprolol tartrate 25 mg PO BID@,06/13/21 07/06/21 07/04/21 07:38 History mupirocin 1 applic TOPICAL BID PRN 06/13/21 07/06/21 Unknown History phenytoin sodium extended 200 mg PO BID@,06/13/21 07/06/21 07/04/21 07:38 History potassium chloride 10 meq PO DAILY@06/13/21 07/06/21 07/04/21 History sennosides-docusate sodium 1 tab PO DAILY@06/13/21 07/06/21 07/04/21 History [Senna-S] warfarin [Jantoven] 1.5 mg PO DAILY@1400 30 Days #30 06/27/21 07/06/21 Unknown Rx tab Levemir FlexTouch U-100 Insuln 5 unit SUBCUT BEDTIME@07/04/21 07/06/21 Unknown History aspirin [Aspir-81] 81 mg PO DAILY@07/04/21 07/06/21 07/05/21 09:00 History bisacodyl 10 mg [place] DAILY PRN 07/04/21 07/06/21 Unknown History folic acid 2 mg PO DAILY@07/04/21 07/06/21 Unknown History levothyroxine 25 mcg PO DAILY@07/04/21 07/06/21 07/04/21 History levothyroxine 200 mcg PO DAILY@07/04/21 07/06/21 07/04/21 History magnesium hydroxide [Milk of 30 ml PO DAILY PRN 07/04/21 07/06/21 Unknown History Magnesia] midodrine 10 mg PO TID #90 tab 07/04/21 07/06/21 Unknown Rx nitrofurantoin monohyd/m-cryst 100 mg PO BID 7 Days #14 cap 07/04/21 07/06/21 Unknown Rx [Macrobid] pantoprazole [Protonix] 40 mg PO DAILY@08 07/04/21 07/06/21 07/04/21 History spironolactone 12.5 mg PO DAILY@07/04/21 07/06/21 07/04/21 History Allergies Allergy/AdvReac Type Severity Reaction Status Date / Time gentamicin Allergy Unknown Verified 07/05/21 21:12 hydromorphone [From Dilaudid] Allergy Unknown Verified 07/05/21 21:12 Current Medications Current Medications Generic Name Dose Route Start Last Admin Trade Name Susan PRN Reason Stop Dose Admin Aspirin 81 mg 07/06/21 08:00 07/06/21 09:09 Aspirin 81 Mg Ec Tablet PO Not Given DAILY@08 [facility] Calcitriol 0.25 mcg 07/06/21 08:00 07/06/21 09:09 Calcitriol 0.25 Mcg Capsule PO Not Given DAILY@0800 [facility] Citalopram Hydrobromide 10 mg 07/06/21 09:00 07/06/21 09:10 Citalopram 20 Mg Tablet PO Not Given DAILY [facility] Clopidogrel Bisulfate 75 mg 07/06/21 08:00 07/06/21 09:09 Clopidogrel 75 Mg Tablet PO Not Given DAILY@0800 [facility] Norepinephrine Bitartrate 4 mg 254 mls @ 0 mls/hr 07/06/21 07:15 07/06/21 10:00 / Dextrose IV 2 mcg/min .Q0M [facility] 7.62 mls/hr Administration Protocol Per Protocol Insulin Human Lispro 0 unit 07/06/21 08:00 07/06/21 10:51 Insulin Lispro 100 Unit/1 Ml SUBCUT Not Given WM&BEDTIME [facility] Protocol Levothyroxine Sodium 25 mcg 07/06/21 06:00 07/06/21 07:06 Levothyroxine 25 Mcg Tablet PO Not Given DAILY@06 [facility] Levothyroxine Sodium 200 mcg 07/06/21 06:00 07/06/21 07:06 Levothyroxine 200 Mcg Tablet PO Not Given DAILY@06 [facility] Pantoprazole Sodium 40 mg 07/06/21 08:00 07/06/21 09:[address] 40 Mg Tablet PO Not Given DAILY@08 [facility] Phenytoin 200 mg 07/06/21 08:00 07/06/21 09:10 Phenytoin Er 100 Mg Capsule PO Not Given BID@08,20 [facility] PFSH Acute PFSH: Medical History Acute hypercapnic respiratory failure Afib Anemia Atrial fibrillation with RVR CAD (coronary artery disease) Chronic anticoagulation Eliquis CKD (chronic kidney disease) Congestive heart failure Diabetes Dyslipidemia Hematoma of left flank HTN (hypertension) Morbid obesity Morbid obesity NSTEMI (non-ST elevated myocardial infarction) PVD (peripheral vascular disease) 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) Status post insertion of drug-eluting stent into left anterior descending (LAD) artery Urine retention Venous stasis Surgical History History of ankle surgery History of cataract surgery History of cholecystectomy History of heart artery stent History of umbilical hernia repair S/P hemodialysis catheter insertion (11/22/20) Right internal jugular vein d/c 12/25/20 Family History Other Cancer Diabetes Social History Smoking and tobacco status: never smoked Alcohol intake: never Marital status: / Current occupational status: retired History of recent travel: No Vitals/I&O/Wt Last Vital Signs Temp 97.5 F L 07/06/21 16:44 Pulse 114 H 07/06/21 16:44 Resp 16 07/06/21 16:44 BP 84/55 07/06/21 16:44 Pulse Ox 95 07/06/21 16:15 07/06/21 07/06/21 07/06/21 06:59 14:59 22:59 Intake Total 1350 / 1350 140 / 140 300 / 440 Output Total 2300 / 2300 Balance 1350 / 1350 140 / 140 -2000 / -1860 Weight last 48 hrs Weight 349 lb 13.977 oz Weight 341 lb 8 oz Weight 347 lb 1.6 oz Weight 347 lb 1 oz Physical Exam Narrative: EXAM NARRATIVE: General: Patient morbidly obese, currently altered; undergoing hemodialysis Neck: Short thick neck CVS: Irregularly irregular, RS: Decreased breath sounds. No wheezing or rales. 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 EKG on arrival showed A. fib with RVR with right axis deviation and probably old anteroseptal infarction. No changes on subsequent EKGs. No significant delta change in troponin. Elevated BNP. -Echocardiogram with unchanged LV function and global hypokinesis with some regional wall motion normality (TDS study). I do not plan for any further cardiac testing or intervention at the moment. -I'll continue to follow. Insulin-dependent diabetes mellitus Chronic atrial fibrillation Insulin-dependent diabetes mellitus Hypothyroidism History of orthostatic hypotension Chronic respiratory failure Thank you following me to participate in patient's care. Please feel free to call with questions or concerns Consult Attestations Time Spent in Patient Care: 16 - 35 minutes (>than 50% of time spent in counselling and/or direct pt care on unit). 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
[2021-07-06 17:18] LABS: Hepatitis B Core AB, Total Non-Reactive (Nonreactive); Hepatitis B Surface AB 3.5 (11.5-1000); Hepatitis B Surface Antigen Non-Reactive (Nonreactive)
[2021-07-06 17:32] LABS: Anion Gap 18.3 (5-19); Blood Urea Nitrogen 29 mg/dL (8-23); Calcium 7.5 mg/dL (8.5-10.5); Carbon Dioxide 22 mmol/L (22-29); Chloride 100 mmol/L (98-107); Glucose 114 mg/dL (65-115); Lactic Sepsis W/Reflex 2.1 mmol/L (0.5-2.2); Magnesium 1.5 mg/dL (1.7-2.3); Osmolality Calculated 289 mOsm/kg (285-295); Potassium 4.3 mmol/L (3.5-5.1); Sodium 136 mmol/L (136-145)
[2021-07-06 17:34] LABS: Creatine Phosphokinase 70 U/L (26-192)
[2021-07-06 17:36] LABS: Troponin T (5th) Once 156 ng/L (0-10)
[2021-07-06 17:42] LABS: Glucose Point of Care 86 mg/dL (70-110)
[2021-07-06] MEDS: sodium chloride 0.9% (100 ml) 100 ML 50 ML (17:52)
[2021-07-06] MEDS: linezolid premix 600 MG/300 ML PREMIX 300 MG IV (17:52)
--- NOTE | 2021-07-06 18:38 | PC.NURSE ---
Shift Note Frequent safety and comfort rounds continue. Orders and nursing care completed as indicated. Patient transferred from [facility] this am due to hypotension and the need of dialysis. Dialysis catheter and central line placed by Dr. Lane tis afternoon. Vital signs taken throughout procedure and this nurse at bedside during whole procedure. Significant amount of bleeding noted at both femoral sites. Sand bags placed on both sites with frequent monitoring. Patient received dialysis late this afternoon. Bleeding still noted at site physician notified, manual pressure held at site for total of twenty minutes by CHEYENNE BARBOZA. Bleeding stopped on right femoral dialysis catheter site. Continued monitoring for left central line site, bleeding still noted- manual pressure held again by CHEYENNE BARBOZA for a total of 10 minutes. Family at bedside speaking to patient, patient noted to be actively participating in conversation. Dr. Perry called labs ordered, one unit of blood order, vitamin K infusion ordered, FFP unit ordered. Please see MAR, LABS, and reported Vital signs. Patient monitored for response to intervention and treatments. Education provided includes position changes, new medications orders, blood administration, oxygen safety, and need for dialysis. Patient and family verbalized understanding. Will continue to monitor.
[2021-07-06 18:39] LABS: Urine Appearance SL Hazy (CLEAR); Urine Color Yellow (Yellow); pH Urine 5 (5-7)
[2021-07-06 18:40] LABS: Add Urine Microscopic? YES; Bilirubin Urine Neg (Negative); Blood Urine 3+ (Negative); Glucose Urine UA Norm (Normal); Ketones Urine Negative (Negative); Leukocyte Esterase Urine 2+ (Negative); Nitrate Urine Negative (Negative); Protein Urine 2+ (Negative); Urobilinogen Urine 1 mg/dL (Negative)
[2021-07-06 18:41] LABS: Bacteria Urine 4+ /hpf; RBC Urine >100 /hpf (0-2); WBC Urine TOO NUMEROUS TO CNT /hpf (0-5)
[2021-07-06 18:42] LABS: Add Urine Culture? Yes
[2021-07-06 18:45] LABS: Urine Creatinine 159 mg/dL (28-217); Urine Random Sodium 33 mmol/L
[2021-07-06 18:55] LABS: Reflex Lactate Order REFLEX LACTIC ORDERD
[2021-07-06] MEDS: phenytoin ER 100 mg Capsule 200 MG PO (19:30)
--- NOTE | 2021-07-06 20:06 | PC.NURSE ---
Surgicel Upon shift report, previous nurse reports leaking/oozing blood at site of central line insertion. See previous shift note. With assessment of site, bleeding still noted at left femoral central line insertion site. All vitals stable, one unit of blood currently still infusing. Packing removed and Surgicel absorbable hemostat applied around site. New dressing applied with sandbag to hold pressure. All vitals remaining stable.
[2021-07-06] MEDS: insulin lispro 100 unit/1 mL SUBCUT (20:28)
[2021-07-06] MEDS: atorvastatin 40 mg Tablet 80 MG PO (20:28)
[2021-07-06 20:38] LABS: Glucose Point of Care 145 mg/dL (70-110)
[2021-07-06 23:25] LABS: Hematocrit 28.5 % (37.0-47.0); Hemoglobin 8.6 g/dL (11.5-15.3)
[2021-07-06 23:44] LABS: Lactic Acid level (Lactate) 2.3 mmol/L (0.5-2.2)
[2021-07-07] VITALS (101 sets, daily range): BP systolic 73–151; BP diastolic 43–82; PULSE 69–118; RESP 7–29; TEMP 34.7–36.6; O2SAT 74–100; BMI 52.9
--- NOTE | 2021-07-07 00:46 | PC.NURSE ---
Pain Patient states she has pain in her back. Patient's head elevated per patient request. Acetaminophen offered: patient declined. Dr. Pierre notified of pain medication request, no new order received at this time.
[2021-07-07 01:04] LABS: Urine Creatinine 154 mg/dL (28-217)
[2021-07-07 04:12] LABS: Basophils % 0.3 %; Eosinophils # 1.2 10^3/uL (0.0-0.8); Eosinophils % 8.9 %; Hematocrit 26.2 % (37.0-47.0); Hemoglobin 7.9 g/dL (11.5-15.3); Mean Corpuscular HGB Conc 30.2 g/dL (30.0-36.0); Mean Corpuscular Hemoglobin 29.4 pg (28.0-34.0); Mean Corpuscular Volume 97.4 fl (81-99); Mean Platelet Volume 12.3 fL (7.4-10.4); Monocytes # 0.7 10^3/uL (0.2-0.9); Monocytes % 5.3 %; Neutrophils % 76.9 %; Nucleated Red Blood Cells % 0.2 %; Platelet Count 152 10^3/cmm (130-400); Red Blood Count 2.69 10^6/uL (4.1-5.3); White Blood Count 12.9 10^3/uL (4.0-10.0)
[2021-07-07 04:31] LABS: INR 1.29 (0.8-1.2)
[2021-07-07 04:32] LABS: Alanine Aminotransferase 10 U/L (0-33); Albumin Level 2.5 g/dL (3.5-5.2); Alkaline Phosphatase 147 IU/L (35-105); Anion Gap 12.5 (5-19); Aspartate Amino Transferase 19 U/L (0-32); Blood Urea Nitrogen 33 mg/dL (8-23); Calcium 7.3 mg/dL (8.5-10.5); Carbon Dioxide 26 mmol/L (22-29); Chloride 102 mmol/L (98-107); Globulin 2.9 g/dL (1.3-4.6); Glucose 105 mg/dL (65-115); Magnesium 1.5 mg/dL (1.7-2.3); Osmolality Calculated 290 mOsm/kg (285-295); Potassium 4.5 mmol/L (3.5-5.1); Sodium 136 mmol/L (136-145); Total Bilirubin 0.7 mg/dL (0.15-1.2); Total Protein 5.4 g/dL (6.6-8.7)
[2021-07-07] MEDS: HYDROcodone-acetaminophen 5-325 mg Tablet 1 TAB PO (04:49)
--- NOTE | 2021-07-07 05:14 | PC.NURSE ---
Addendum entered by Ramya Vasques RN 07/07/21 05:16: At time of 0330 Original Note: Physician Communication Order received from Dr. Pierre for Hydrocodone 5-325 mg 1 tablet PO Q6 hour PRN for moderate pain. Dr. Pierre also notified about the left femoral central line site still oozing blood; no new orders received.
[2021-07-07] MEDS: levothyroxine 200 mcg Tablet PO (05:52)
[2021-07-07] MEDS: levothyroxine 25 mcg Tablet PO (05:52)
[2021-07-07] MEDS: linezolid premix 600 MG/300 ML PREMIX 300 MG IV ×2 (05:53→17:11)
--- NOTE | 2021-07-07 07:32 | P.PN_ITS ---
Subjective Subjective: Interval history: awake, no complaints Medications: Medication Review Details: on NE 6 mcg Vitals/I&O/Wt Last Vital Signs Temp 97.7 F 07/07/21 04:00 Pulse 87 07/07/21 07:00 Resp 16 07/07/21 07:00 BP 128/68 07/07/21 07:00 Pulse Ox 100 07/07/21 07:00 07/06/21 07/07/21 07/07/21 22:59 06:59 14:59 Intake Total 1882.62 / 2060.72 686.596 / 2747.316 Output Total 2300 / 2300 50 / 2350 Balance -417.38 / -239.28 636.596 / 397.316 Weight last 48 hrs Weight 153.405 kg Weight 158.7 kg Weight 154.902 kg Weight 157.442 kg Weight 157.425 kg Data : 07/07/21 03:40 07/07/21 03:40 Other Labs: Ca 7.3, albumin 2.5, CK 70 Micro: Microbiology 07/05/21 23:00 Blood Culture - Preliminary Blood NEGATIVE TO DATE 07/05/21 22:19 Blood Culture - Preliminary Blood NEGATIVE TO DATE US: Radiologist's impression: 07/06/21 Right kidney: 11.2 cm x 5.4 cm x 5.8 cm. Echogenic kidney with mild diffuse cortical thinning throughout. No hydronephrosis. Visualization of the kidney is limited. No mass identified. Left kidney: Not identified. A&P Additional A&P Information 1. Acute kidney injury, anuric, received HD yesterday, CKD 2. CHF - stable 3. altered mental status - improved 4. Anemia - check iron studies Recommend: Does not require HD today. begin IV lasix 80 mg BID Attestations Medical Necessity Statement*: see above Time Spent in Patient Care: 16 - 35 minutes Coding Level of Care Code Acute Smoke Room Operator for Sosa Bates
[2021-07-07 07:43] LABS: Glucose Point of Care 142 mg/dL (70-110)
[2021-07-07] MEDS: clopidogrel 75 mg Tablet PO (07:49)
[2021-07-07] MEDS: citalopram 20 mg Tablet 10 MG PO (07:50)
[2021-07-07] MEDS: pantoprazole DR 40 mg Tablet PO (07:50)
[2021-07-07] MEDS: phenytoin ER 100 mg Capsule 200 MG PO ×2 (07:50→20:59)
[2021-07-07] MEDS: aspirin 81 mg EC Tablet PO (07:50)
[2021-07-07] MEDS: insulin lispro 100 unit/1 mL SUBCUT (07:51)
[2021-07-07] MEDS: calcitriol 0.25 mcg Capsule PO (07:53)
--- NOTE | 2021-07-07 08:24 | PC.OT ---
Initial evaluation was attempted after discussion with nurse. Her nurse voiced concerns about patient's participation in OT evaluation. Patient was very tired and refused participation at this time. Will attempt again.
[2021-07-07] MEDS: sodium chloride 0.9% (100 ml) 100 ML 50 ML (10:20)
[2021-07-07] MEDS: FUROsemide 10 mg/mL SDV 10mL 80 MG IVP ×2 (10:21→21:00)
[2021-07-07 12:00] LABS: Glucose Point of Care 77 mg/dL (70-110)
--- NOTE | 2021-07-07 13:58 | P.PN_ITS ---
Subjective Subjective: Interval history: Seen this morning. She is awake alert and oriented. No longer appearing confused. She is a little sleepy however. She did bleed quite a bit from her dialysis catheter site yesterday and received 1 unit blood transfusion, FFP, IV vitamin K. Warfarin was held and not given yesterday and neither today. We are only going to continue aspirin and Plavix at this point. Patient states she is feeling better and does understand that she is very sick at this time. Still requiring Levophed at 2 mics. She is getting another unit of blood this morning. Hemoglobin 7.9 at this time. We will repeat after transfusion. Her family also came to visit yesterday. WBC count has come down to 12,000. She is on linezolid and Primaxin at this time. Urine culture pending. Patient denies any chest pain, shortness of breath, abdominal pain. She does have pain in her left buttock area which has been there since admission. He states she is feeling a little bit better with the pillow in place. Vitals/I&O/Wt Last Vital Signs Temp 97.8 F 07/07/21 10:15 Pulse 88 07/07/21 13:49 Resp 12 07/07/21 12:50 BP 100/62 07/07/21 12:50 Pulse Ox 94 07/07/21 13:49 07/06/21 07/07/21 07/07/21 22:59 06:59 14:59 Intake Total 1882.62 / 2060.72 686.596 / 2747.316 602.273 / 602.273 Output Total 2300 / 2300 50 / 2350 Balance -417.38 / -239.28 636.596 / 397.316 602.273 / 602.273 Weight last 48 hrs Weight 153.405 kg Weight 158.7 kg Weight 154.902 kg Weight 157.442 kg Weight 157.425 kg Physical Exam Narrative: EXAM NARRATIVE: General: Alert oriented x3, patient seen laying in bed appearing comfortable at this time. HEENT: Normocephalic, atraumatic, EOMI, breathing nasal cannula 2 L. Saturating 100%. Cardio: Irregularly irregular normal S1-S2, no gross murmurs., unable to assess JVD due to body habitus. Groin sites appear okay with no fluctuance or evidence of hematoma. Site of dialysis catheter insertion sites look clean without evidence of bleeding today. Very mild ecchymosis present on medial thigh from previous cardiac cath. No new areas of ecchymosis identified. Respiratory: Good bilateral air entry, no wheezes no rhonchi appreciated. Lungs much clear to auscultation today compared to yesterday. GI: Abdomen soft, nontender, nondistended, bowel sounds +, obese rounded abdomen Behavior: Appropriate and cooperative Extremities: Pulses unable to be appreciated by hand. By Doppler there present, 2+ edema bilateral lower extremities. Left foot colder compared to right foot. Chronic venous stasis changes present Data : 07/07/21 03:40 07/07/21 03:40 Micro: Microbiology 07/06/21 01:22 Urine Culture - Preliminary Urine Catheterized 07/05/21 23:00 Blood Culture - Preliminary Blood NEGATIVE TO DATE 07/05/21 22:19 Blood Culture - Preliminary Blood NEGATIVE TO DATE A&P Assessment and plan (1) CKD (chronic kidney disease): Status: Acute (2) Venous stasis: Status: Chronic (3) Dyslipidemia: Status: Chronic (4) Atherosclerotic heart disease of [place] coronary artery with unstable angina pectoris: Status: Chronic Qualifiers: [place] vs. transplanted heart: [place] heart Qualified Code(s): I25.110 - Atherosclerotic heart disease of [place] coronary artery with unstable angina pectoris (5) Atrial fibrillation with RVR: Status: Acute (6) Acute on chronic congestive heart failure: Status: Acute Qualifiers: Heart failure type: systolic Qualified Code(s): I50.23 - Acute on chronic systolic (congestive) heart failure (7) Diabetes: Status: Acute Qualifiers: Chronic kidney disease stage: stage 3 (moderate) Chronic kidney disease stage 3 subtype: stage 3b (GFR 30-44) Diabetes mellitus complication detail: with chronic kidney disease Diabetes mellitus complication status: with kidney complications Diabetes mellitus assistant terminal manager insulin use: with snf use Diabetes mellitus type: type 2 Qualified Code(s): E11.22 - Type 2 diabetes mellitus with diabetic chronic kidney disease; N18.32 - Chronic kidney disease, stage 3b; Z79.4 - senior living (current) use of insulin (8) Acute renal failure: Status: Acute (9) Warfarin-induced coagulopathy: Status: Acute Additional A&P Information #Altered Mental Status - resolved #Acute on chronic congestive heart failure 2/2 renal failure #Acute renal failure on CKD stage 3, etiology multifactorial #Chronic venous statis #Orthostatic hypotension, on midodrine #DLD #UTI, culture pending #Atrial fibrillation, on warfarin - held warfarin for now #CAD s/p stent (recent) #HTN #Hypothyroidism #DM #PVD - Continue linezolid [place] primaxin [place] [address] [place] [address]) - Nephrology following. Got dialyzed x1 2300 ml fluid removed 07/06. Started on lasix 80 IV BID today. Urine output still [place] [address]. Echo showed EF 20-25% similar to prior recent study. H ad recent stent. Discussed with cardiology. Will continue aspirin, plavix for now. Will hold warfain. Continue atorvastatin, lopressor 25 BID. Will hold spironalactone due to requirement of pressors. BP on soft side. - Continue to tranfuse prbc as needed to keep Hb > 9 due to CAD. She is s/p 2 units. Will check post transfusion cbc. Pt s/p vitamin K and FFP. - Venous dopplers ruled out DVT. Will check arterial doppler (right foot colder than left). - Continue levothryoxine 250 mcg daily, sliding scale, lantus. - Cardiology and nephrology following, appreciate recs. - Continue phenytoin - Continue midodrine. Son updated 07/06. Code status: Full Code DVT PPX: warfarin held. Will do SCD for now. No pharmacological ppx due to risk of bleed and transfusion requirement. Prognosis guarded. Attestations Medical Necessity Statement*: > 48 hour stay. 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 transplanted heart: [place] heart Atrial fibrillation with RVR I48.91 Acute on chronic congestive heart failure I50.23 Heart failure type: systolic Diabetes E11.22; N18.32; Z79.4 Chronic kidney disease stage: stage 3 (moderate) Chronic kidney disease stage 3 subtype: stage 3b (GFR 30-44) Diabetes mellitus complication detail: with chronic kidney disease Diabetes mellitus complication status: with kidney complications Diabetes mellitus snf insulin use: with assistant terminal manager use Diabetes mellitus type: type 2 Acute renal failure N17.9 Warfarin-induced coagulopathy D68.32; T45.515A
[2021-07-07 15:02] LABS: Basophils % 0.4 %; Eosinophils # 1.2 10^3/uL (0.0-0.8); Eosinophils % 14.4 %; Hematocrit 28.4 % (37.0-47.0); Hemoglobin 8.8 g/dL (11.5-15.3); Lymphocytes # 1.1 10^3/uL (0.8-4.8); Lymphocytes % 13.2 %; Mean Corpuscular Hemoglobin 29.9 pg (28.0-34.0); Mean Corpuscular Volume 96.6 fl (81-99); Monocytes # 0.6 10^3/uL (0.2-0.9); Monocytes % 6.9 %; Neutrophils # 5.22 10^3/uL (1.8-7.7); Neutrophils % 64.6 %; Nucleated Red Blood Cells % 0.2 %; Platelet Count 119 10^3/cmm (130-400); Red Blood Count 2.94 10^6/uL (4.1-5.3); Red Cell Distribution Width 17.7 % (12.1-15.1); White Blood Count 8.1 10^3/uL (4.0-10.0)
[2021-07-07 17:26] LABS: Glucose Point of Care 85 mg/dL (70-110)
--- NOTE | 2021-07-07 17:33 | P.PN_ITS ---
Subjective Subjective: Interval history: Patient was dialyzed yesterday and has been started on Lasix 80 mg this morning. Minimal urine output so far Condition has improved. No events on telemetry. Medications: Reviewed: Yes Vitals/I&O/Wt Last Vital Signs Temp 97.8 F 07/07/21 10:15 Pulse 101 H 07/07/21 16:00 Resp 10 L 07/07/21 16:00 BP 106/46 07/07/21 16:00 Pulse Ox 100 07/07/21 16:00 07/07/21 07/07/21 07/07/21 06:59 14:59 22:59 Intake Total 686.596 / 2747.316 602.273 / 602.273 Output Total 50 / 2350 Balance 636.596 / 397.316 602.273 / 602.273 Weight last 48 hrs Weight 338 lb 3.2 oz Weight 349 lb 13.977 oz Weight 341 lb 8 oz Weight 347 lb 1.6 oz Weight 347 lb 1 oz Physical Exam Narrative: EXAM NARRATIVE: General: Patient morbidly obese, appears comfortably laying in bed at the moment Neck: Short thick neck. No JVD appreciated CVS: Irregularly irregular, no murmur rub or gallop appreciated RS: Decreased breath sounds. No wheezing or rales. Abdomen: Soft and obese Extremity: 1+ edema, no oozing from dialysis and central line access site Data : 07/07/21 14:56 07/07/21 03:40 Micro: Microbiology 07/06/21 01:22 Urine Culture - Preliminary Urine Catheterized 07/05/21 23:00 Blood Culture - Preliminary Blood NEGATIVE TO DATE 07/05/21 22:19 Blood Culture - Preliminary Blood NEGATIVE TO DATE A&P Assessment and plan (1) Altered mental status: Being managed by primary team Status: Acute (2) Acute renal failure superimposed on stage 3 chronic kidney disease: Status: Acute Additional A&P Information Recent NSTEMI s/p mid OM1 stent; continue aspirin and Plavix for now. 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 EKG on arrival showed A. fib with RVR with right axis deviation and probably old anteroseptal infarction. No changes on subsequent EKGs. No significant delta change in troponin. Elevated BNP. -Echocardiogram with unchanged LV function and global hypokinesis with some regional wall motion normality (TDS study). I do not plan for any further cardiac testing or intervention at the moment. -Patient will be seen as needed Insulin-dependent diabetes mellitus Chronic atrial fibrillation Insulin-dependent diabetes mellitus Hypothyroidism History of orthostatic hypotension Chronic respiratory failure Thank you following me to participate in patient's care. Please feel free to call with questions or concerns Attestations Medical Necessity Statement*: As per primary team Time Spent in Patient Care: 16 - 35 minutes (>than 50% of time spent in counselling and/or direct pt care on unit) . 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
--- NOTE | 2021-07-07 18:11 | PC.NURSE ---
Shift Note Frequent safety and comfort rounds continue. Orders and nursing care completed as indicated. Patient received an additional unit of blood today per physician's orders as goal hgb is 8 or above. Bleeding to bilateral central line and dialysis sites have slowed down significantly. Observed by Physician, charge nurse, and this nurse. Patient not requiring Levophed as of 1345 today. Patient received bed bath with help of additional nursing staff. Redness and stage 1 pressure sores noted to be on bilateral buttocks, physician notified as this was present on admission. Patient turned every two hours with help of additional staff. Patient monitored for response to intervention and treatments Education provided includes new medications, position changes, dialysis and central line catheter management. Patient verbalized understanding. Will continue to monitor.
[2021-07-07 20:52] LABS: Glucose Point of Care 115 mg/dL (70-110)
[2021-07-07] MEDS: atorvastatin 40 mg Tablet 80 MG PO (21:00)
[2021-07-08] VITALS (79 sets, daily range): BP systolic 92–127; BP diastolic 40–86; PULSE 85–117; RESP 8–29; TEMP 36.4–36.7; O2SAT 79–100
[2021-07-08 05:07] LABS: Basophils % 0.3 %; Eosinophils # 0.9 10^3/uL (0.0-0.8); Eosinophils % 12.3 %; Hematocrit 26.1 % (37.0-47.0); Hemoglobin 8.2 g/dL (11.5-15.3); Lymphocytes # 1.1 10^3/uL (0.8-4.8); Lymphocytes % 14.2 %; Mean Corpuscular HGB Conc 31.4 g/dL (30.0-36.0); Mean Corpuscular Hemoglobin 30.1 pg (28.0-34.0); Mean Platelet Volume 11.8 fL (7.4-10.4); Monocytes # 0.6 10^3/uL (0.2-0.9); Monocytes % 7.5 %; Neutrophils # 4.82 10^3/uL (1.8-7.7); Neutrophils % 65.3 %; Nucleated Red Blood Cells % 0.4 %; Platelet Count 125 10^3/cmm (130-400); Red Blood Count 2.72 10^6/uL (4.1-5.3); Red Cell Distribution Width 17.3 % (12.1-15.1); White Blood Count 7.4 10^3/uL (4.0-10.0)
[2021-07-08 05:39] LABS: Anion Gap 13.6 (5-19); Blood Urea Nitrogen 36 mg/dL (8-23); Calcium 7.3 mg/dL (8.5-10.5); Carbon Dioxide 26 mmol/L (22-29); Chloride 100 mmol/L (98-107); Glucose 83 mg/dL (65-115); Magnesium 1.6 mg/dL (1.7-2.3); Osmolality Calculated 287 mOsm/kg (285-295); Potassium 4.6 mmol/L (3.5-5.1); Sodium 135 mmol/L (136-145)
[2021-07-08] MEDS: linezolid premix 600 MG/300 ML PREMIX 300 MG IV ×2 (05:39→17:40)
[2021-07-08] MEDS: levothyroxine 200 mcg Tablet PO (05:40)
[2021-07-08] MEDS: levothyroxine 25 mcg Tablet PO (05:40)
[2021-07-08 07:39] LABS: Glucose Point of Care 128 mg/dL (70-110)
[2021-07-08] MEDS: pantoprazole DR 40 mg Tablet PO (07:43)
[2021-07-08] MEDS: citalopram 20 mg Tablet 10 MG PO (07:43)
[2021-07-08] MEDS: clopidogrel 75 mg Tablet PO (07:43)
[2021-07-08] MEDS: calcitriol 0.25 mcg Capsule PO (07:43)
[2021-07-08] MEDS: FUROsemide 10 mg/mL SDV 10mL 80 MG IVP ×2 (07:43→20:07)
[2021-07-08] MEDS: aspirin 81 mg EC Tablet PO (07:43)
[2021-07-08] MEDS: phenytoin ER 100 mg Capsule 200 MG PO ×2 (07:45→20:06)
[2021-07-08 09:36] LABS: Basophils % 0.4 %; Eosinophils # 0.9 10^3/uL (0.0-0.8); Eosinophils % 10.8 %; Hematocrit 27.2 % (37.0-47.0); Hemoglobin 8.6 g/dL (11.5-15.3); Mean Corpuscular HGB Conc 31.6 g/dL (30.0-36.0); Mean Corpuscular Hemoglobin 30.4 pg (28.0-34.0); Mean Corpuscular Volume 96.1 fl (81-99); Mean Platelet Volume 12.3 fL (7.4-10.4); Monocytes # 0.6 10^3/uL (0.2-0.9); Monocytes % 7.3 %; Neutrophils # 5.84 10^3/uL (1.8-7.7); Neutrophils % 68.7 %; Nucleated Red Blood Cells % 0 %; Platelet Count 131 10^3/cmm (130-400); Red Blood Count 2.83 10^6/uL (4.1-5.3); Red Cell Distribution Width 17.2 % (12.1-15.1); White Blood Count 8.5 10^3/uL (4.0-10.0)
[2021-07-08 09:52] LABS: Anion Gap 14.5 (5-19); Blood Urea Nitrogen 36 mg/dL (8-23); Calcium 7.2 mg/dL (8.5-10.5); Carbon Dioxide 25 mmol/L (22-29); Chloride 98 mmol/L (98-107); Ferritin 465 ng/mL (15-150); Glucose 100 mg/dL (65-115); Iron 87 ug/dL (37-145); Osmolality Calculated 284 mOsm/kg (285-295); Percent Saturation 65.9 % (20-50); Potassium 4.5 mmol/L (3.5-5.1); Sodium 133 mmol/L (136-145); Total Iron Binding Capacity 132 mcg/dl; Unsaturated Iron Binding 45 ug/dL (112-347)
--- NOTE | 2021-07-08 10:27 | PC.SOCIAL ---
IM follow up explained and copy provided. NO questions voiced.
--- NOTE | 2021-07-08 11:06 | PM.PN ---
Subjective Subjective: Interval history: Ms. Lee feels relatively well today. Some dyspnea on exertion after doing some exercise, otherwise, no acute issues. She is breathing comfortably on low-dose nasal cannula oxygen. High-dose diuretics on board, urine output still lackluster i.e. only a few 100 cc over the last 24 hours. No other acute uremic symptoms. Medications: Reviewed: Yes Medication Review Details: on NE 6 mcg Vitals/I&O/Wt Last Vital Signs Temp 97.6 F 07/08/21 08:00 Pulse 87 07/08/21 10:15 Resp 11 L 07/08/21 10:15 BP 109/66 07/08/21 10:15 Pulse Ox 90 07/08/21 10:15 07/07/21 07/08/21 07/08/21 22:59 06:59 14:59 Intake Total 400 / 1002.273 400 / 1402.273 Output Total 150 / 150 Balance 400 / 1002.273 250 / 1252.273 Weight last 48 hrs Weight 160.6 kg Weight 153.405 kg Weight 158.7 kg Physical Exam Narrative: EXAM NARRATIVE: Constitutional: Awake, comfortable HEENT: Wet mucosa, no jvp, non icteric Lungs: Bilaterally clear without discernible wheeze or rales in all lung zones CVS: S1 S2, no murmurs Abdo: Soft, BS ok Ext 4: Minimal edema, peripheral perfusion with no cyanosis Neurological: Grossly non-focal Data : 07/08/21 09:05 07/08/21 09:05 Micro: Microbiology 07/06/21 01:22 Urine Culture - Preliminary Urine Catheterized A&P Additional A&P Information 1. Acute renal failure It appears that she has oligoanuric renal failure at this time. Likely from ischemic ATN in the setting of labile hemodynamics and sepsis, contrast nephropathy is also a possibility. As she is anuric and demonstrating vascular congestion on chest x-ray, proceed with gentle dialysis today. No acute indication for hemodialysis today, will make daily evaluation for hemodialysis. If she remains oligoanuric throughout the course of today it is likely I will dialyze her for volume control tomorrow. Daily evaluation for need for dialysis Strict I's and O's Dose medication for GFR less than 15 on dialysis 2. Chemistry Noncritical aberration including mild anion gap metabolic acidosis. Continue close monitoring whilst in renal failure. 3. Hypotension septic/cardiogenic. Levophed as needed 4. ID issues Leukocytosis on arrival, urine with evidence of infection on 07/04 and also on admission. Funguria found on urinalysis/culture on 07/04. Defer antibiotic coverage to Dr. Perry Thank you for consultation, it is a pleasure to follow these cases with you Exam and interview performed with aid of bedside RN using telemedicine Time spent 20 min inc > 50% of time in face to face counseling Corbin Sánchez MD [facility] [phone] Attestations Medical Necessity Statement*: eval for TIFFANY Coding Level of Care Code Acute Lie Detector Operator for Katerineg Jana
[2021-07-08 11:32] LABS: Glucose Point of Care 103 mg/dL (70-110)
--- NOTE | 2021-07-08 15:36 | PM.PN ---
Subjective Subjective: Interval history: Seen this AM. She states she is feeling a lot better compared to admission. Her mental status is back to baseline. She states she is very comfortable in bed and does not want to move to chair for now. Denies any pain, discomfort at this time. Hemoglobin stable. No longer bleeding. Vitals/I&O/Wt Last Vital Signs Temp 97.7 F 07/08/21 14:00 Pulse 100 07/08/21 14:46 Resp 20 H 07/08/21 14:00 BP 110/60 07/08/21 14:00 Pulse Ox 99 07/08/21 14:46 07/08/21 07/08/21 07/08/21 06:59 14:59 22:59 Intake Total 400 / 1402.273 120 / 120 Output Total 150 / 150 Balance 250 / 1252.273 120 / 120 Weight last 48 hrs Weight 160.6 kg Weight 153.405 kg Weight 158.7 kg Physical Exam Narrative: EXAM NARRATIVE: General: Alert oriented x3, patient seen laying in bed appearing comfortable at this time. HEENT: Normocephalic, atraumatic, EOMI, breathing nasal cannula 2 L. Saturating 100%. Cardio: Irregularly irregular normal S1-S2, no gross murmurs., Groin sites appear okay with no fluctuance or evidence of hematoma. Site of dialysis catheter insertion sites look clean without evidence of bleeding today. Very mild ecchymosis present on medial thigh from previous cardiac cath. No new areas of ecchymosis identified. No change in exam. Respiratory: Good bilateral air entry, no wheezes no rhonchi appreciated. Lungs clear to ausculation. GI: Abdomen soft, nontender, nondistended, bowel sounds +, obese rounded abdomen Behavior: Appropriate and cooperative Extremities: 2+ edema bilateral lower extremities. Chronic venous stasis changes present Data : 07/08/21 09:05 07/08/21 09:05 Micro: Microbiology 07/06/21 01:22 Urine Culture - Final Urine Catheterized Olinda albicans A&P Assessment and plan (1) CKD (chronic kidney disease): Status: Acute (2) Venous stasis: Status: Chronic (3) Dyslipidemia: Status: Chronic (4) Atherosclerotic heart disease of [place] coronary artery with unstable angina pectoris: Status: Chronic Qualifiers: [place] vs. transplanted heart: [place] heart Qualified Code(s): I25.110 - Atherosclerotic heart disease of [place] coronary artery with unstable angina pectoris (5) Atrial fibrillation with RVR: Status: Acute (6) Acute on chronic congestive heart failure: Status: Acute Qualifiers: Heart failure type: systolic Qualified Code(s): I50.23 - Acute on chronic systolic (congestive) heart failure (7) Diabetes: Status: Acute Qualifiers: Chronic kidney disease stage: stage 3 (moderate) Chronic kidney disease stage 3 subtype: stage 3b (GFR 30-44) Diabetes mellitus complication detail: with chronic kidney disease Diabetes mellitus complication status: with kidney complications 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[employer] insulin use: 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 Diabetes mellitus type: type 2 Qualified Code(s): E11.22 - Type 2 diabetes mellitus with diabetic chronic kidney disease; N18.32 - Chronic kidney disease, stage 3b; Z79.4 - shelter (current) use of insulin (8) Acute renal failure: Status: Acute (9) Warfarin-induced coagulopathy: Status: Acute Additional A&P Information #Altered Mental Status - resolved #Acute on chronic congestive heart failure 2/2 renal failure #Acute oliguric renal failure on CKD stage 3, etiology multifactorial #Chronic venous statis #Orthostatic hypotension, on midodrine #DLD #UTI, culture pending #Atrial fibrillation, on warfarin - held warfarin for now #CAD s/p stent (recent) #HTN #Hypothyroidism #DM #PVD - Continue linezolid and primaxin for possible UTI. [place] ([place] [address]) - Nephrology following. Got dialyzed x1 2300 ml fluid removed 07/06. Continue lasix 80 IV BID as per nephro recs. Urine output still low. Nephro to assess dialysis need on daily basis. Possible dialysis in [place] [address]. Echo showed EF 20-25% similar to prior recent study. Had recent stent. Discussed with cardiology. Will continue aspirin, plavix for now. Will hold warfain. Continue atorvastatin, lopressor 25 BID. Holding spironalactone for now. - Continue to tranfuse prbc as needed to keep Hb > 9 due to CAD. She is s/p 2 units. Pt s/p vitamin K and FFP. Hb Stable today. She has stopped bleeding. Continue to watch. - Venous dopplers ruled out DVT. Arterial doppler pending (right foot colder than left). - Continue levothryoxine 250 mcg daily, sliding scale, lantus. - Cardiology and nephrology following, appreciate recs. - Continue phenytoin - Continue midodrine. Son updated 07/06. Code status: Full Code DVT PPX: warfarin held. Will do SCD for now. No pharmacological ppx due to risk of bleed and transfusion requirement. Prognosis guarded. Attestations Medical Necessity Statement*: > 48 hour stay. Coding Level of Care Code Acute Institutional Commodity Analyst for Chg Fwd Diagnoses CKD (chronic kidney disease) N18.9 Venous stasis I87.8 Dyslipidemia E78.5 Atherosclerotic heart disease of [place] coronary artery with unstable angina pectoris I25.110 [place] vs. transplanted heart: [place] heart Atrial fibrillation with RVR I48.91 Acute on chronic congestive heart failure I50.23 Heart failure type: systolic Diabetes E11.22; N18.32; Z79.4 Chronic kidney disease stage: stage 3 (moderate) Chronic kidney disease stage 3 subtype: stage 3b (GFR 30-44) Diabetes mellitus complication detail: with chronic kidney disease Diabetes mellitus complication status: with kidney complications Diabetes mellitus fdc insulin use: with fdc use Diabetes mellitus type: type 2 Acute renal failure N17.9 Warfarin-induced coagulopathy D68.32; T45.515A
--- NOTE | 2021-07-08 15:43 | USR_ITS ---
PROCEDURE INFORMATION: Exam: US Duplex Lower Extremity Arteries Exam date and time: 07/08/2021 3:43 PM Age: 75 years old Clinical indication: Other: Weak pulses; Additional info: Rule out obstruction, order clarified with Dr cortes TECHNIQUE: Imaging protocol: Real-time ultrasound scan of the arteries of the bilateral lower extremities with 2-D rain scale, color Doppler flow and spectral waveform analysis. Images documented and saved. COMPARISON: US renal BI* [id number] 07/06/2021 11:48 AM FINDINGS: Limitations: Right common femoral oral artery is not evaluated due to the presence of a dialysis catheter in the right groin. Right common femoral artery: Right common femoral oral artery is not evaluated due to the presence of a dialysis catheter in the right groin. Right superficial femoral artery: No occlusion or significant stenosis. Monophasic waveform. Right popliteal artery: Right popliteal artery is patent. No occlusion or significant stenosis demonstrated. Monophasic waveform noted. Right calf/foot arteries: No occlusion or significant stenosis in the visualized arteries. Monophasic waveforms. Dorsalis pedis artery is patent. Left common femoral artery: No occlusion or significant stenosis. Monophasic waveform. Left superficial femoral artery: No occlusion or significant stenosis. Monophasic waveform. Left popliteal artery: No occlusion or significant stenosis. Monophasic waveform. Left calf/foot arteries: No occlusion or significant stenosis in the visualized arteries. Monophasic waveforms. Dorsalis pedis artery is patent. Other findings: Right ankle brachial index is 0.63. Left ankle brachial index is 0.62. US/[place] [id number] IMPRESSION: 1. Right common femoral oral artery is not evaluated due to the presence of a dialysis catheter in the right groin. 2. Atherosclerosis of the bilateral lower extremity arteries. Monophasic waveforms are seen bilaterally, consistent with aortoiliac disease proximally. 3. No high-grade arterial stenosis or occlusion demonstrated in the bilateral lower extremities.
[2021-07-08 17:55] LABS: Glucose Point of Care 146 mg/dL (70-110)
[2021-07-08] MEDS: insulin lispro 100 unit/1 mL SUBCUT (18:01)
--- NOTE | 2021-07-08 18:29 | PC.NURSE ---
Shift Note Frequent safety and comfort rounds continue. Orders and nursing care completed as indicated. Patient monitored for response to intervention and treatments. Patient noted have N&V this morning with serval soft bowel movements. Physician notified. Patient not able to get comfortable for quite some time. Pillows placed serval times but nothing seemed to relieve the discomfort until later in the afternoon. Patient to receive dialysis possibly tomorrow. Education provided includes frequent position changes, new medications, and need of dialysis. Patient verbalized understanding. Will continue to monitor.
[2021-07-08] MEDS: atorvastatin 40 mg Tablet 80 MG PO (20:06)
[2021-07-08] MEDS: HYDROcodone-acetaminophen 5-325 mg Tablet 1 TAB PO (20:06)
[2021-07-09] VITALS (24 sets, daily range): BP systolic 93–132; BP diastolic 56–88; PULSE 95–118; RESP 9–20; TEMP 36.3–36.7; O2SAT 81–100
[2021-07-09 01:11] LABS: Glucose Point of Care 121 mg/dL (70-110)
[2021-07-09 04:12] LABS: Basophils % 0.5 %; Eosinophils # 0.8 10^3/uL (0.0-0.8); Eosinophils % 10.4 %; Hematocrit 26.9 % (37.0-47.0); Hemoglobin 8.5 g/dL (11.5-15.3); Lymphocytes # 1.3 10^3/uL (0.8-4.8); Lymphocytes % 16.2 %; Mean Corpuscular HGB Conc 31.6 g/dL (30.0-36.0); Mean Corpuscular Hemoglobin 30.5 pg (28.0-34.0); Mean Corpuscular Volume 96.4 fl (81-99); Mean Platelet Volume 12.1 fL (7.4-10.4); Monocytes # 0.7 10^3/uL (0.2-0.9); Monocytes % 8.9 %; Neutrophils # 4.92 10^3/uL (1.8-7.7); Neutrophils % 63.5 %; Nucleated Red Blood Cells % 0.3 %; Platelet Count 139 10^3/cmm (130-400); Red Blood Count 2.79 10^6/uL (4.1-5.3); Red Cell Distribution Width 17.2 % (12.1-15.1); White Blood Count 7.8 10^3/uL (4.0-10.0)
[2021-07-09 04:29] LABS: INR 1.14 (0.8-1.2)
[2021-07-09 04:43] LABS: Blood Urea Nitrogen 40 mg/dL (8-23); Calcium 7.4 mg/dL (8.5-10.5); Carbon Dioxide 25 mmol/L (22-29); Chloride 100 mmol/L (98-107); Creatine Phosphokinase 34 U/L (26-192); Glucose 88 mg/dL (65-115); Magnesium 1.6 mg/dL (1.7-2.3); Osmolality Calculated 291 mOsm/kg (285-295); Sodium 136 mmol/L (136-145)
[2021-07-09 05:00] LABS: Anion Gap 15.6 (5-19); Potassium 4.6 mmol/L (3.5-5.1)
[2021-07-09] MEDS: levothyroxine 200 mcg Tablet PO (05:45)
[2021-07-09] MEDS: linezolid premix 600 MG/300 ML PREMIX 300 MG IV (05:45)
[2021-07-09] MEDS: levothyroxine 25 mcg Tablet PO (05:45)
[2021-07-09 08:19] LABS: Glucose Point of Care 126 mg/dL (70-110)
[2021-07-09] MEDS: clopidogrel 75 mg Tablet PO (08:25)
[2021-07-09] MEDS: phenytoin ER 100 mg Capsule 200 MG PO ×2 (08:25→20:04)
[2021-07-09] MEDS: pantoprazole DR 40 mg Tablet PO (08:25)
[2021-07-09] MEDS: citalopram 20 mg Tablet 10 MG PO (08:25)
[2021-07-09] MEDS: calcitriol 0.25 mcg Capsule PO (08:25)
[2021-07-09] MEDS: FUROsemide 10 mg/mL SDV 10mL 80 MG IVP ×2 (08:26→20:04)
[2021-07-09] MEDS: aspirin 81 mg EC Tablet PO (08:26)
--- NOTE | 2021-07-09 08:42 | P.PN_ITS ---
Subjective Subjective: Interval history: Some vomiting this morning otherwise no acute events over night. UO noted to be 550mL. Breathing comfortably on nasal cannula. Dialysis line in the right fem. Some LE edema but no other hypervol Sx. Medications: Reviewed: Yes Vitals/I&O/Wt Last Vital Signs Temp 97.7 F 07/08/21 14:00 Pulse 110 H 07/09/21 07:00 Resp 14 07/09/21 07:00 BP 127/73 07/09/21 07:00 Pulse Ox 100 07/09/21 07:00 07/08/21 07/09/21 07/09/21 22:59 06:59 14:59 Intake Total 400 / 520 400 / 920 Output Total 550 / 550 Balance 400 / 520 -150 / 370 Weight last 48 hrs Weight 160.6 kg Physical Exam Narrative: EXAM NARRATIVE: Constitutional: Awake, comfortable HEENT: Wet mucosa, no jvp, non icteric Lungs: Bilaterally clear without discernible wheeze or rales in all lung zones CVS: S1 S2, no murmurs Abdo: Soft, BS ok Ext 4: 2-3+ edema, peripheral perfusion with no cyanosis Neurological: Grossly non-focal Data : 07/09/21 03:20 07/09/21 03:20 Micro: Microbiology 07/06/21 01:22 Urine Culture - Final Urine Catheterized Olinda albicans A&P Additional A&P Information 1. Acute renal failure It appears that she has oligoanuric renal failure at this time. Likely from ischemic ATN in the setting of labile hemodynamics and sepsis, contrast nephropathy is also a possibility. Creatinine remains stable at 3.3mg/dL, UO noted to be marginal at 550mL over last 24hrs Daily evaluation for need for dialysis; leave femoral access in for now. Hopefully we can remove over the next 24hrs of not being used Strict I's and O's Dose medication for GFR less than 15 on dialysis 2. Chemistry Well balanced. Continue close monitoring whilst in renal failure. 3. Hypotension septic/cardiogenic. Levophed as needed 4. ID issues Leukocytosis on arrival, urine with evidence of infection on 07/04 and also on admission. Funguria found on urinalysis/culture on 07/04. Defer antibiotic coverage to Dr. Perry Thank you for consultation, it is a pleasure to follow these cases with you Exam and interview performed with aid of bedside RN using telemedicine Time spent 20 min inc > 50% of time in face to face counseling Corbin Sánchez MD [facility] [phone] Attestations Medical Necessity Statement*: Eval for renal failure Coding Level of Care Code Acute Vp Digital Marketing for Katerineg Jana
[2021-07-09 10:07] LABS: C Reactive Protein 105.7 mg/L (0.0-4.9)
--- NOTE | 2021-07-09 10:07 | PC.CHAP ---
Pastoral Care Encounter/Spiritual Assessment Type of Contact [] Declined records management technician visit [] Patient/Family/Request visit [] Outpatient visit [] Follow-up visit [] Physician referral [] Code/Alert [x] Routine visit [] Staff referral [] Actively dying [] Patient sleeping [] Family support [] [] Out of room [] Palliative care [] [x] Receiving care in room [] Pre-surgical visit [] Trauma [] Long length of stay [x] ICU visit [] Other: Relational/Emotional Strength [] Patient feels connected with others/family/visitors/staff [] Distress [] Loneliness/isolation [] Abandonment Spirituality of Patient [] Person of Jennifer [] Attends Jainism of their Jennifer [] Believes in Prayer [] Reads Bible or Restoration materials [] There are Spiritual issues to be addressed Director Dance Interventions [x] Prayer [] Active listening [] Non-anxious presence [] Spiritual/emotional support [] Crisis/trauma care [] Spiritual counseling [] Bereavement support [] Provided bereavement packet [] Provided Bible/devotional materials [] Provided toy/stuffed animal, coloring book to patient or family member [] Provided Communion [] Anointing/[place] [] Salvation [x] Completed spiritual assessment [] Other: Impact on Illness or Injury [] Angry [] Fearful [] Anxious [] Often cries [] Exhaustion [] Unable to work [] Unable to attend bahai [] Unable to walk/stand [] Unable to read [] Unable to drive [] Unable to eat/drink [] Unable to sleep [] Unable to be with family [] Patient intubated [] Other: Summary Time spent with patient
[2021-07-09 11:26] LABS: Glucose Point of Care 120 mg/dL (70-110)
--- NOTE | 2021-07-09 14:34 | PM.PN ---
Subjective Subjective: Interval history: The patient reports feeling better. Denies confusion. Denies pain. No fever or chills. No nausea or vomiting. No diarrhea. Denies dysuria. Medications: Reviewed: Yes Medication Review Details: Generic Name Dose Route Start Last Admin Trade Name Freq PRN Reason Stop Dose Admin Hydrocodone Bitart /Acetaminophen 1 tab 07/07/21 03:44 07/08/21 20:06 Hydrocodone-Acet aminophen 5-325 Mg Tablet PO 1 tab Q6H PRN Administration MODERATE PAIN Aspirin 81 mg 07/06/21 08:00 07/09/21 08:26 Aspirin 81 Mg Ec Tablet PO 81 mg DAILY@08 ARMINDA Administration Atorvastatin Calci um 80 mg 07/06/21 21:00 07/08/21 20:06 Atorvastatin 40 Mg Tablet PO 80 mg BEDTIME ARMINDA Administration Calcitriol 0.25 mcg 07/06/21 08:00 07/09/21 08:25 Calcitriol 0.25 Mcg Capsule PO 0.25 mcg DAILY@0800 ARMINDA Administration Citalopram Hydrobr omide 10 mg 07/06/21 09:00 07/09/21 08:25 Citalopram 20 Mg Tablet PO 10 mg DAILY ARMINDA Administration Clopidogrel Bisulf ate 75 mg 07/06/21 08:00 07/09/21 08:25 Clopidogrel 75 M g Tablet PO 75 mg DAILY@0800 ARMINDA Administration Furosemide 80 mg 07/07/21 08:00 07/09/21 08:26 Furosemide 10 Mg /Ml Sdv 10ml IVP 80 mg Q12H ARMINDA Administration Norepinephrine Bit artrate 4 mg 254 mls @ 0 mls/h r 07/06/21 07:15 07/07/21 12:56 / Dextrose IV 0 mcg/min .Q0M ARMINDA 0 mls/hr Titration Protocol Per Protocol Imipenem/Cilastati n Sodium 250 100 mls @ 200 mls /hr 07/06/21 17:30 07/09/21 06:32 mg/ Sodium Chlor aureliano IV Infused Q12H ARMINDA Infusion Protocol Insulin Human Lisp ro 0 unit 07/06/21 08:00 07/09/21 11:26 Insulin Lispro 1 00 Unit/1 Ml SUBCUT Not Given WM&BEDTIME ARMINDA Protocol Levothyroxine Sodi um 25 mcg 07/06/21 06:00 07/09/21 05:45 Levothyroxine 25 Mcg Tablet PO 25 mcg DAILY@06 ARMINDA Administration Levothyroxine Sodi um 200 mcg 07/06/21 06:00 07/09/21 05:45 Levothyroxine 20 0 Mcg Tablet PO 200 mcg DAILY@06 ARMINDA Administration Pantoprazole Sodiu m 40 mg 07/06/21 08:00 07/09/21 08:[address] 40 Mg Tablet PO 40 mg DAILY@08 ARMINDA Administration Phenytoin 200 mg 07/06/21 08:00 07/09/21 08:25 Phenytoin Er 100 Mg Capsule PO 200 mg BID@08,20 ARMINDA Administration Vitals/I&O/Wt Last Vital Signs Temp 98.1 F 07/09/21 09:00 Pulse 95 07/09/21 12:00 Resp 10 L 07/09/21 12:00 BP 99/68 07/09/21 12:00 Pulse Ox 100 07/09/21 12:00 07/08/21 07/09/21 07/09/21 22:59 06:59 14:59 Intake Total 400 / 520 400 / 920 240 / 240 Output Total 550 / 550 Balance 400 / 520 -150 / 370 240 / 240 Weight last 48 hrs Weight 160.6 kg Physical Exam Narrative: EXAM NARRATIVE: Awake alert oriented. No acute distress. Mood and affect are appropriate. Responses are adequate. Skin is warm and dry. Moist extremities Eyes PERRL, extraocular muscles are intact Heart S1, S2, irregular Lungs are clear. No respiratory distress. Neck is supple. No JVD Abdomen is soft, nontender, bowel sounds are present Extremities 2+ bilateral lower extremity edema. Chronic venous stasis changes. No peripheral cyanosis. No calf tenderness bilaterally Neuro examination is nonfocal. Data : 07/09/21 03:20 07/09/21 03:20 Other Labs: Laboratory Results WBC 7.8 10^3/uL (4.0-10.0) 07/09/21 03:20 Corrected WBC Cancelled 07/07/21 14:13 RBC 2.79 10^6/uL (4.1-5.3) L 07/09/21 03:20 Hgb 8.5 g/dL (11.5-15.3) L 07/09/21 03:20 Hct 26.9 % (37.0-47.0) L 07/09/21 03:20 MCV 96.4 fl (81-99) 07/09/21 03:20 MCH 30.5 pg (28.0-34.0) 07/09/21 03:20 MCHC 31.6 g/dL (30.0-36.0) 07/09/21 03:20 RDW 17.2 % (12.1-15.1) H 07/09/21 03:20 Plt Count 139 10^3/cmm (130-400) 07/09/21 03:20 MPV 12.1 fL (7.4-10.4) H 07/09/21 03:20 Gran % Cancelled 07/07/21 14:13 Neut % (Auto) 63.5 % 07/09/21 03:20 Lymph % (Auto) 16.2 % 07/09/21 03:20 Sully % (Auto) 8.9 % 07/09/21 03:20 Eos % (Auto) 10.4 % 07/09/21 03:20 Baso % (Auto) 0.5 % 07/09/21 03:20 Neut # (Auto) 4.92 10^3/uL (1.8-7.7) 07/09/21 03:20 Lymph # (Auto) 1.3 10^3/uL (0.8-4.8) 07/09/21 03:20 Sully # (Auto) 0.7 10^3/uL (0.2-0.9) 07/09/21 03:20 Eos # (Auto) 0.8 10^3/uL (0.0-0.8) 07/09/21 03:20 Baso # (Auto) 0.0 10^3/uL (0.0-0.1) 07/09/21 03:20 Absolute Gran (auto) Cancelled 07/07/21 14:13 Nucleated RBC % (auto) 0.3 % 07/09/21 03:20 Nucleated RBCs # 0.0 /100WBC 07/09/21 03:20 PT 15.00 SECONDS (12.1-14.9) H 07/09/21 03:20 INR 1.14 (0.8-1.2) 07/09/21 03:20 Specimen Type Arterial 07/06/21 07:16 Sample Site Brachial, left 07/06/21 07:16 ABG pH 7.30 (7.35-7.45) L 07/06/21 07:16 ABG pCO2 54.0 mmHg (35-45) H 07/06/21 07:16 ABG pO2 83.4 mmHg (80.0-100.0) 07/06/21 07:16 ABG HCO3 26.5 mmol/L (22-26) H 07/06/21 07:16 ABG O2 Saturation 96.9 07/06/21 07:16 ABG Base Excess -0.2 mmol/L (-2.0-2.0) 07/06/21 07:16 Olvin Test N/a 07/06/21 07:16 A-a O2 Gradient 6.2 mmHg (5-10) 07/06/21 07:16 Hematocrit 25.3 % (37-47) L 07/06/21 07:16 Hgb O2 Saturation 95.1 % (95-100) 07/06/21 07:16 Carboxyhemoglobin 1.8 %THgb (0.4-20.1) 07/06/21 07:16 Methemoglobin 0.1 % (0.4-1.5) L 07/06/21 07:16 Total Hemoglobin 8.2 g/dL (12-16) L 07/06/21 07:16 Sodium 137.0 mmol/L (131-143) 07/06/21 07:16 Potassium 4.5 mmol/L (3.5-5.0) 07/06/21 07:16 Glucose 91.0 mg/dL (70-115) 07/06/21 07:16 Ionized Calcium 1.2 mmol/L (1.1-1.4) 07/06/21 07:16 O2 Delivery Device Nc 07/06/21 07:16 O2 Liters/Min 2.0 % 07/06/21 07:16 FiO2 28.0 % 07/06/21 07:16 Spindraw Operator ID glc 07/06/21 07:16 Sodium 136 mmol/L (136-145) 07/09/21 03:20 Potassium 4.6 mmol/L (3.5-5.1) 07/09/21 03:20 Chloride 100 mmol/L (98-107) 07/09/21 03:20 Carbon Dioxide 25 mmol/L (22-29) 07/09/21 03:20 Anion Gap 15.6 (5-19) 07/09/21 03:20 BUN 40 mg/dL (8-23) H 07/09/21 03:20 Creatinine 3.3 mg/dL (0.5-0.9) H 07/09/21 03:20 GFR Calculation Not Reportable 07/09/21 03:20 Glucose 88 mg/dL (65-115) 07/09/21 03:20 POC Glucose 120 mg/dL (70-110) H 07/09/21 11:24 Calculated Osmolality 291 mOsm/kg (285-295) 07/09/21 03:20 Lactic Acid 2.1 mmol/L (0.5-2.2) 07/06/21 16:56 Lactic Acid (Sepsis) 2.3 mmol/L (0.5-2.2) H 07/06/21 22:58 Calcium 7.4 mg/dL (8.5-10.5) L 07/09/21 03:20 Magnesium 1.6 mg/dL (1.7-2.3) L 07/09/21 03:20 Iron 87 ug/dL (37-145) 07/08/21 09:05 TIBC 132 mcg/dl 07/08/21 09:05 % Saturation 65.9 % (20-50) H 07/08/21 09:05 Unsat Iron Binding 45 ug/dL (112-347) L 07/08/21 09:05 Ferritin 465 ng/mL (15-150) H 07/08/21 09:05 Total Bilirubin 0.7 mg/dL (0.15-1.2) 07/07/21 03:40 AST 19 U/L (0-32) 07/07/21 03:40 ALT 10 U/L (0-33) 07/07/21 03:40 Alkaline Phosphatase 147 IU/L (35-105) H 07/07/21 03:40 Creatine Kinase 34 U/L (26-192) 07/09/21 03:20 Troponin T Gen 5 ng/L 156 ng/L (0-10) H* 07/06/21 16:56 Troponin T Baseline 145 ng/L (0-10) H* 07/05/21 22:19 Troponin T 120 Minute 143.2 ng/L (0-10) H 07/05/21 23:55 Delta Troponin T -1.8 ABS# (0-10) L 07/05/21 23:55 Troponin T Hi Sens 6Hr 139.6 ng/L (0-10) H 07/06/21 04:18 Troponin T Hi Sens 6Hr Delta -5.4 ng/L (0-12) L 07/06/21 04:18 C-Reactive Protein 105.7 mg/L (0.0-4.9) H 07/09/21 03:20 NT-Pro-B Natriuret Pep 51403 pg/mL (0-450) H 07/05/21 22:19 Total Protein 5.4 g/dL (6.6-8.7) L 07/07/21 03:40 Albumin 2.5 g/dL (3.5-5.2) L 07/07/21 03:40 Globulin 2.9 g/dL (1.3-4.6) 07/07/21 03:40 Procalcitonin 0.50 ng/mL (0-0.5) 07/09/21 03:20 TSH 0.94 uIU/mL (0.27-4.20) 07/06/21 04:18 Urine Color Yellow (Yellow) 07/06/21 18:25 Urine Appearance Sl hazy (CLEAR) 07/06/21 18:25 Urine pH 5 (5-7) 07/06/21 18:25 Ur Specific [place] 1.020 (1.005-1.030) 07/06/21 18:25 Urine Protein 2+ (Negative) H 07/06/21 18:25 Urine Glucose (UA) Norm (Normal) 07/06/21 18:25 Urine Ketones Negative (Negative) 07/06/21 18:25 Urine Blood 3+ (Negative) H 07/06/21 18:25 Urine Nitrate Negative (Negative) 07/06/21 18:25 Urine Bilirubin Neg (Negative) 07/06/21 18:25 Urine Urobilinogen 1 mg/dL (Negative) H 07/06/21 18:25 Ur Leukocyte Esterase 2+ (Negative) H 07/06/21 18:25 Urine RBC >100 /hpf (0-2) H 07/06/21 18:25 Urine WBC Too numerous to cnt /hpf (0-5) H 07/06/21 18:25 Ur Squamous Epith Cells 5-10 /hpf (0-5) H 07/06/21 18:25 Amorphous Sediment Not Reportable 07/06/21 18:25 Urine Bacteria 4+ /hpf (NONE) H 07/06/21 18:25 Urine Yeast 2+ /hpf H 07/06/21 18:25 Ur Random Sodium 33 mmol/L 07/06/21 18:25 Urine Creatinine 154 mg/dL (28-217) 07/07/21 00:24 Phenytoin 15.6 ug/mL (10-20) 07/06/21 04:18 Hep Bs Antigen Non-reactive (Nonreactive) 07/06/21 16:11 Hep Bs Antibody 3.5 (11.5-1000) L 07/06/21 16:11 Hep B Core Total Ab Non-reactive (Nonreactive) 07/06/21 16:11 Blood Type A Positive 07/06/21 17:10 Rho(D) Type Positive 07/06/21 17:10 Antibody Screen Negative 07/06/21 17:10 Crossmatch See Detail 07/06/21 17:10 Impressions Chest X-Ray 07/05/21 20:59 IMPRESSION: 1. Cardiomegaly with central pulmonary vascular congestion. 2. Increased interstitial lung markings suggestive of interstitial pulmonary edema. 3. Small to moderate volume left pleural effusion and perhaps a trace right pleural effusion. Retrocardiac opacity and ill-defined opacity in the right lung base likely atelectasis versus infiltrate. These findings are similar to prior study. Head CT 07/05/21 20:59 IMPRESSION: 1. No acute abnormality of the brain. 2. Incidental/nonacute findings are listed in the report. Renal Ultrasound 07/06/21 11:27 IMPRESSION: 1. Moderate chronic medical renal disease RIGHT kidney. No hydronephrosis. 2. LEFT kidney is not identified. Not identified secondary to body habitus. No history of prior nephrectomy. Duplex Scan Lower Extremity Artery 07/08/21 15:43 IMPRESSION: 1. Right common femoral oral artery is not evaluated due to the presence of a dialysis catheter in the right groin. 2. Atherosclerosis of the bilateral lower extremity arteries. Monophasic waveforms are seen bilaterally, consistent with aortoiliac disease proximally. 3. No high-grade arterial stenosis or occlusion demonstrated in the bilateral lower extremities. Micro: Microbiology 07/06/21 01:22 Urine Culture - Final Urine Catheterized Olinda albicans A&P Additional A&P Information Acute kidney injury on top of chronic kidney disease. Acute contrast nephropathy and/or ATN secondary to sepsis are suspected. Appreciate nephrology team input. Received dialysis treatments but no plans for dialysis today. Continue close monitoring of the renal function. Sepsis. Resolved. UTI suspected. Cultures were positive for yeast. We will go ahead and stop linezolid. We will add fluconazole. We will continue adjusting and de-escalating antibiotics tomorrow. A. fib with RVR. Rate controlled. Continue current cardiac management. Warfarin is on hold due to coagulopathy. Will check INR tomorrow morning. Coagulopathy. As above. Diabetes. Continue current management. Coronary artery disease. On dual antiplatelet therapy. No chest pain. CHF. Stable currently. No evidence of decompensation at this point. Continue current management including Lasix. Anemia. Stable. Continue monitoring. The plan of care was discussed with the patient. She verbalized understanding and agreement. Discussed with multidisciplinary team. Attestations Medical Necessity Statement*: Still requires to remain hospitalized to continue current management and adjustments of the medications. Coding Level of Care Code Acute Technician Trainee for Sosa Bates
--- NOTE | 2021-07-09 15:28 | PC.OT ---
Patient denied ot services.
[2021-07-09 17:17] LABS: Glucose Point of Care 131 mg/dL (70-110)
--- NOTE | 2021-07-09 17:30 | PC.NURSE ---
Frequent safety and comfort rounds continue. Orders and nursing care completed as indicated. Patient monitored for response to intervention and treatments. Patient noted have N&V this morning and this afternoon with lunch and requested ice chips and sprite. Physician notified. Patient not able to get comfortable for quite some time. Pillows placed serval times but nothing seemed to relieve the discomfort until later in the afternoon. When this nurse and nurse Geeta went into room to attempted to turn patient on other side, patient refused to be turned stating, I am comfortable how I am and do not want to be turned. . This nurse educated patient on the importance of preventing pressure sores. Patient verbalizing understanding this risk. Patient refused to see physical therapy today due to feeling unwell. Patient to receive dialysis possibly tomorrow per Dr. Juarez. Orders to transfer to [facility] were discussed with physician, physician has not yet placed orders. Education provided includes frequent position changes, new medications, and need of dialysis. Patient verbalized understanding. Will continue to monitor
--- NOTE | 2021-07-09 18:27 | PC.NURSE ---
Patient noted to have a significant amount of bleeding at left central line site. This nurse with the assistance of charge nurse Nicola placed a sand bag at site. This nurse attempted to call physician, no answer. Message was left instructing to call nurse back. Vital signs noted to be stable, see charting. No complaints of pain per patient.
[2021-07-09] MEDS: atorvastatin 40 mg Tablet 80 MG PO (20:04)
[2021-07-09 20:08] LABS: Glucose Point of Care 112 mg/dL (70-110)
[2021-07-10] VITALS (25 sets, daily range): BP systolic 86–139; BP diastolic 56–88; PULSE 94–122; RESP 8–23; TEMP 36.2–36.6; O2SAT 77–100
--- NOTE | 2021-07-10 03:23 | PC.NURSE ---
Shift Note Frequent safety and comfort rounds continue. Orders and/or nursing care completed as indicated. Patient monitored for response to intervention and treatment(s). Education provided includes frequent turning. Patient and/or outside sales 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 insurance reinforcement needed. Will continue to monitor.
--- NOTE | 2021-07-10 03:41 | PC.NURSE ---
Patients left central line groin incision continues to ooze. Site cleaned with chlohexadine and covered with central line dressing, and surgecel applied
[2021-07-10 04:44] LABS: Basophils # 0.1 10^3/uL (0.0-0.1); Basophils % 0.7 %; Eosinophils # 0.5 10^3/uL (0.0-0.8); Hemoglobin 8.4 g/dL (11.5-15.3); Lymphocytes % 13.2 %; Mean Corpuscular HGB Conc 31.1 g/dL (30.0-36.0); Mean Corpuscular Hemoglobin 30.3 pg (28.0-34.0); Mean Corpuscular Volume 97.5 fl (81-99); Mean Platelet Volume 11.9 fL (7.4-10.4); Monocytes # 0.8 10^3/uL (0.2-0.9); Monocytes % 10.4 %; Neutrophils # 5.19 10^3/uL (1.8-7.7); Neutrophils % 69.3 %; Nucleated Red Blood Cells % 0.3 %; Platelet Count 125 10^3/cmm (130-400); Red Blood Count 2.77 10^6/uL (4.1-5.3); Red Cell Distribution Width 16.8 % (12.1-15.1); White Blood Count 7.5 10^3/uL (4.0-10.0)
[2021-07-10] MEDS: levothyroxine 200 mcg Tablet PO (05:00)
[2021-07-10] MEDS: levothyroxine 25 mcg Tablet PO (05:00)
[2021-07-10 05:03] LABS: INR 1.15 (0.8-1.2)
[2021-07-10 05:13] LABS: Albumin Level 2.3 g/dL (3.5-5.2); Anion Gap 18.5 (5-19); Blood Urea Nitrogen 44 mg/dL (8-23); Calcium 7.6 mg/dL (8.5-10.5); Carbon Dioxide 22 mmol/L (22-29); Chloride 100 mmol/L (98-107); Glucose 115 mg/dL (65-115); Potassium 4.5 mmol/L (3.5-5.1); Sodium 136 mmol/L (136-145)
[2021-07-10 05:15] LABS: Magnesium 1.6 mg/dL (1.7-2.3)
[2021-07-10 07:43] LABS: Glucose Point of Care 121 mg/dL (70-110)
[2021-07-10] MEDS: ondansetron 2 mg/ML SDV 2 mL 4 MG IVP (08:14)
[2021-07-10] MEDS: FUROsemide 10 mg/mL SDV 10mL 80 MG IVP ×2 (09:06→20:52)
[2021-07-10] MEDS: phenytoin ER 100 mg Capsule 200 MG PO ×2 (09:07→20:51)
[2021-07-10] MEDS: clopidogrel 75 mg Tablet PO (09:07)
[2021-07-10] MEDS: pantoprazole DR 40 mg Tablet PO (09:07)
[2021-07-10] MEDS: aspirin 81 mg EC Tablet PO (09:08)
[2021-07-10] MEDS: fluconazole 100 mg Tablet 200 MG PO (09:08)
[2021-07-10] MEDS: calcitriol 0.25 mcg Capsule PO (09:08)
[2021-07-10] MEDS: citalopram 20 mg Tablet 10 MG PO (09:08)
--- NOTE | 2021-07-10 10:23 | PC.SOCIAL ---
IMM Updated Updated on IMM. No questions voiced. Provided pt a copy. Initialed, dated, & timed copy in chart.
--- NOTE | 2021-07-10 10:44 | P.PN_ITS ---
Subjective Subjective: Interval history: Some vomiting this morning but treated with anti-emetics with some relief. No edema and no other hypervolemic Sx. No other uremic Sx Good urine output in response to diuretic therapy Medications: Reviewed: Yes Medication Review Details: Generic Name Dose Route Start Last Admin Trade Name Susan PRN Reason Stop Dose Admin Hydrocodone Bitart /Acetaminophen 1 tab 07/07/21 03:44 07/08/21 20:06 Hydrocodone-Acet aminophen 5-325 Mg Tablet PO 1 tab Q6H PRN Administration MODERATE PAIN Aspirin 81 mg 07/06/21 08:00 07/09/21 08:26 Aspirin 81 Mg Ec Tablet PO 81 mg DAILY@08 ARMINDA Administration Atorvastatin Calci um 80 mg 07/06/21 21:00 07/08/21 20:06 Atorvastatin 40 Mg Tablet PO 80 mg BEDTIME ARMINDA Administration Calcitriol 0.25 mcg 07/06/21 08:00 07/09/21 08:25 Calcitriol 0.25 Mcg Capsule PO 0.25 mcg DAILY@0800 ARMINDA Administration Citalopram Hydrobr omide 10 mg 07/06/21 09:00 07/09/21 08:25 Citalopram 20 Mg Tablet PO 10 mg DAILY ARMINDA Administration Clopidogrel Bisulf ate 75 mg 07/06/21 08:00 07/09/21 08:25 Clopidogrel 75 M g Tablet PO 75 mg DAILY@0800 ARMINDA Administration Furosemide 80 mg 07/07/21 08:00 07/09/21 08:26 Furosemide 10 Mg /Ml Sdv 10ml IVP 80 mg Q12H ARMINDA Administration Norepinephrine Bit artrate 4 mg 254 mls @ 0 mls/h r 07/06/21 07:15 07/07/21 12:56 / Dextrose IV 0 mcg/min .Q0M ARMINDA 0 mls/hr Titration Protocol Per Protocol Imipenem/Cilastati n Sodium 250 100 mls @ 200 mls /hr 07/06/21 17:30 07/09/21 06:32 mg/ Sodium Chlor aureliano IV Infused Q12H ARMINDA Infusion Protocol Insulin Human Lisp ro 0 unit 07/06/21 08:00 07/09/21 11:26 Insulin Lispro 1 00 Unit/1 Ml SUBCUT Not Given WM&BEDTIME ARMINDA Protocol Levothyroxine Sodi um 25 mcg 07/06/21 06:00 07/09/21 05:45 Levothyroxine 25 Mcg Tablet PO 25 mcg DAILY@06 ARMINDA Administration Levothyroxine Sodi um 200 mcg 07/06/21 06:00 07/09/21 05:45 Levothyroxine 20 0 Mcg Tablet PO 200 mcg DAILY@06 [facility] Administration Pantoprazole Sodiu m 40 mg 07/06/21 08:00 07/09/21 08:[address] 40 Mg Tablet PO 40 mg DAILY@08 [facility] Administration Phenytoin 200 mg 07/06/21 08:00 07/09/21 08:25 Phenytoin Er 100 Mg Capsule PO 200 mg BID@08,20 ARMINDA Administration Vitals/I&O/Wt Last Vital Signs Temp 97.3 F L 07/10/21 07:00 Pulse 117 H 07/10/21 10:00 Resp 14 07/10/21 10:00 BP 112/57 07/10/21 10:00 Pulse Ox 97 07/10/21 10:00 07/09/21 07/10/21 07/10/21 22:59 06:59 14:59 Intake Total 320 / 560 100 / 660 Output Total 1200 / 1200 Balance 320 / 560 -1100 / -540 Physical Exam Narrative: EXAM NARRATIVE: Constitutional: Awake, comfortable HEENT: Wet mucosa, no jvp, non icteric Lungs: Bilaterally clear without discernible wheeze or rales in all lung zones CVS: S1 S2, no murmurs Abdo: Soft, BS ok Ext 4: 2-3+ edema, peripheral perfusion with no cyanosis Neurological: Grossly non-focal Data : 07/10/21 03:30 07/10/21 03:30 A&P Additional A&P Information 1. Acute renal failure It appears that she has oligoanuric renal failure at this time. Likely from ischemic ATN in the setting of labile hemodynamics and sepsis, contrast nephropathy is also a possibility. creatinine drifting up a little, good urine output No indication for dialysis and line should be removed today Strict I's and O's Dose medication for GFR less than 15 on dialysis 2. Chemistry Well balanced. Continue close monitoring whilst in renal failure. 3. Hypotension septic/cardiogenic. Levophed as needed 4. ID issues Leukocytosis on arrival, urine with evidence of infection on 07/04 and also on admission. Funguria found on urinalysis/culture on 07/04. Defer antibiotic coverage to Dr. Vicky Thank you for consultation, it is a pleasure to follow these cases with you Exam and interview performed with aid of bedside RN using telemedicine Time spent 20 min inc > 50% of time in face to face counseling Corbin Sánchez MD [facility] [phone] Attestations Medical Necessity Statement*: Eval for TIFFANY Coding Level of Care Code Acute Vascular Ultrasound Technologist for Chg Jana
--- NOTE | 2021-07-10 11:05 | PM.PN ---
Subjective Subjective: Interval history: The patient reports feeling better today. Denies fever or chills. No nausea or vomiting. No chest pain, shortness of breath, cough, palpitations. The left femoral line access is still oozing. Medications: Reviewed: Yes Medication Review Details: Generic Name Dose Route Start Last Admin Trade Name Freq PRN Reason Stop Dose Admin Hydrocodone Bitart /Acetaminophen 1 tab 07/07/21 03:44 07/08/21 20:06 Hydrocodone-Acet aminophen 5-325 Mg Tablet PO 1 tab Q6H PRN Administration MODERATE PAIN Aspirin 81 mg 07/06/21 08:00 07/10/21 09:08 Aspirin 81 Mg Ec Tablet PO 81 mg DAILY@08 ARMINDA Administration Atorvastatin Calci um 80 mg 07/06/21 21:00 07/09/21 20:04 Atorvastatin 40 Mg Tablet PO 80 mg BEDTIME ARMINDA Administration Calcitriol 0.25 mcg 07/06/21 08:00 07/10/21 09:08 Calcitriol 0.25 Mcg Capsule PO 0.25 mcg DAILY@0800 ARMINDA Administration Citalopram Hydrobr omide 10 mg 07/06/21 09:00 07/10/21 09:08 Citalopram 20 Mg Tablet PO 10 mg DAILY ARMINDA Administration Clopidogrel Bisulf ate 75 mg 07/06/21 08:00 07/10/21 09:07 Clopidogrel 75 M g Tablet PO 75 mg DAILY@0800 ARMINDA Administration Fluconazole 200 mg 07/10/21 09:00 07/10/21 09:08 Fluconazole 100 Mg Tablet PO 200 mg DAILY ARMINDA Administration Furosemide 80 mg 07/07/21 08:00 07/10/21 09:06 Furosemide 10 Mg /Ml Sdv 10ml IVP 80 mg Q12H ARMINDA Administration Norepinephrine Bit artrate 4 mg 254 mls @ 0 mls/h r 07/06/21 07:15 07/07/21 12:56 / Dextrose IV 0 mcg/min .Q0M ARMINDA 0 mls/hr Titration Protocol Per Protocol Insulin Human Lisp ro 0 unit 07/06/21 08:00 07/10/21 09:08 Insulin Lispro 1 00 Unit/1 Ml SUBCUT Not Given WM&BEDTIME ARMINDA Protocol Levothyroxine Sodi um 25 mcg 07/06/21 06:00 07/10/21 05:00 Levothyroxine 25 Mcg Tablet PO 25 mcg DAILY@06 ARMINDA Administration Levothyroxine Sodi um 200 mcg 07/06/21 06:00 07/10/21 05:00 Levothyroxine 20 0 Mcg Tablet PO 200 mcg DAILY@06 ARMINDA Administration Ondansetron HCl 4 mg 07/08/21 09:16 07/10/21 08:14 Ondansetron 2 Mg /Ml Sdv 2 Ml IVP 4 mg Q6H PRN Administration NAUSEA AND VOMITI NG Pantoprazole Sodiu m 40 mg 07/06/21 08:00 07/10/21 09:[address] 40 Mg Tablet PO 40 mg DAILY@08 ARMINDA Administration Phenytoin 200 mg 07/06/21 08:00 07/10/21 09:07 Phenytoin Er 100 Mg Capsule PO 200 mg BID@08,20 [facility] Administration Vitals/I&O/Wt Last Vital Signs Temp 97.3 F L 07/10/21 07:00 Pulse 117 H 07/10/21 10:00 Resp 14 07/10/21 10:00 BP 112/57 07/10/21 10:00 Pulse Ox 97 07/10/21 10:00 07/09/21 07/10/21 07/10/21 22:59 06:59 14:59 Intake Total 320 / 560 100 / 660 Output Total 1200 / 1200 Balance 320 / 560 -1100 / -540 Physical Exam Narrative: EXAM NARRATIVE: Awake alert oriented. No acute distress. Mood and affect are appropriate. Responses are adequate. Skin is warm and dry. Moist extremities Eyes PERRL, extraocular muscles are intact Heart S1, S2, irregular Lungs are clear. No respiratory distress. Neck is supple. No JVD Abdomen is soft, nontender, bowel sounds are present Extremities 2+ bilateral lower extremity edema. Chronic venous stasis changes. No peripheral cyanosis. Bloody dressing in the left groin area. However seemingly there is no active bleeding at this moment. No calf tenderness bilaterally Neuro examination is nonfocal. Data : 07/10/21 03:30 07/10/21 03:30 A&P Assessment and plan (1) CKD (chronic kidney disease): Status: Acute (2) Venous stasis: Status: Chronic (3) Dyslipidemia: Status: Chronic (4) Atherosclerotic heart disease of [place] coronary artery with unstable angina pectoris: Status: Chronic Qualifiers: [place] vs. transplanted heart: [place] heart Qualified Code(s): I25.110 - Atherosclerotic heart disease of [place] coronary artery with unstable angina pectoris (5) Atrial fibrillation with RVR: Status: Acute (6) Acute on chronic congestive heart failure: Status: Acute Qualifiers: Heart failure type: systolic Qualified Code(s): I50.23 - Acute on chronic systolic (congestive) heart failure (7) Diabetes: Status: Acute Qualifiers: Chronic kidney disease stage: stage 3 (moderate) Chronic kidney disease stage 3 subtype: stage 3b (GFR 30-44) Diabetes mellitus complication detail: with chronic kidney disease Diabetes mellitus complication status: with kidney complications Diabetes mellitus termite treater helper insulin use: with penitentiary use Diabetes mellitus type: type 2 Qualified Code(s): E11.22 - Type 2 diabetes mellitus with diabetic chronic kidney disease; N18.32 - Chronic kidney disease, stage 3b; Z79.4 - USP (current) use of insulin (8) Acute renal failure: Status: Acute (9) Warfarin-induced coagulopathy: Status: Acute Additional A&P Information Acute kidney injury on top of chronic kidney disease. Acute contrast nephropathy and/or ATN secondary to sepsis are suspected. Discussed with Dr. Sánchez. I appreciate his input. He is okay with removing left femoral IV access and right femoral dialysis catheter. No plans for dialyzing at this point. Continue close monitoring of the renal function. Sepsis. Resolved. UTI suspected. Cultures were positive for yeast. We'll stop antibiotics today and continue fluconazole only. A. fib with RVR. Rate controlled. Continue current cardiac management. Warfarin is on hold due to coagulopathy. Coagulopathy. As above. Diabetes. Continue current management. Coronary artery disease. On dual antiplatelet therapy. No chest pain. Discussed with Dr. Bean When there is no problem with the bleeding we can resume warfarin and stop her aspirin. CHF. Stable currently. No evidence of decompensation at this point. Continue current management including Lasix. Anemia. The patient received transfusions due to acute blood loss from the left femoral line access point. Currently stable. Continue monitoring. Left femoral line access point bleeding. It seems that it has stopped now. We will remove her lines today. She has a good peripheral IV access. Discussed with the nurse. We'll continue using local pressure to prevent bleeding. The plan of care was discussed with the patient. She verbalized understanding and agreement. Discussed with multidisciplinary team. Attestations Medical Necessity Statement*: Time spent on this encounter is 35 minutes. 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 transplanted heart: [place] heart Atrial fibrillation with RVR I48.91 Acute on chronic congestive heart failure I50.23 Heart failure type: systolic Diabetes E11.22; N18.32; Z79.4 Chronic kidney disease stage: stage 3 (moderate) Chronic kidney disease stage 3 subtype: stage 3b (GFR 30-44) Diabetes mellitus complication detail: with chronic kidney disease Diabetes mellitus complication status: with kidney complications Diabetes mellitus penitentiary insulin use: with penitentiary use Diabetes mellitus type: type 2 Acute renal failure N17.9 Warfarin-induced coagulopathy D68.32; T45.515A
[2021-07-10 11:34] LABS: Glucose Point of Care 113 mg/dL (70-110)
[2021-07-10 17:17] LABS: Glucose Point of Care 116 mg/dL (70-110)
--- NOTE | 2021-07-10 18:38 | PC.NURSE ---
Shift Note Frequent safety and comfort rounds continue. Orders and/or nursing care completed as indicated. Patient monitored for response to intervention and treatment(s). Education provided includes new results, care plan, and medications. Patient and/or medical field 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 verbalized understanding. Got orders to discontinue femoral central line and femoral dialysis line. Femoral central line discontinued around 1140. Pressure held on insertion site for 15 minutes. Site dressed and sand bag placed. Site continued to ooze blood. Doctor notified and orders to place ice bag on site. Nurse explained that the dialysis line not removed at this time in order to not have two sides bleeding. Doctor okayed to remove line tomorrow. Femoral central line placement site still bleeding. Family updated on patient.
[2021-07-10 20:41] LABS: Glucose Point of Care 128 mg/dL (70-110)
[2021-07-10] MEDS: atorvastatin 40 mg Tablet 80 MG PO (20:52)
[2021-07-11] VITALS (20 sets, daily range): BP systolic 90–146; BP diastolic 55–100; PULSE 68–127; RESP 8–23; TEMP 36.6–37.1; O2SAT 82–100
[2021-07-11 05:01] LABS: Basophils % 0.6 %; Eosinophils # 0.5 10^3/uL (0.0-0.8); Eosinophils % 6.6 %; Hematocrit 28.9 % (37.0-47.0); Hemoglobin 8.9 g/dL (11.5-15.3); Lymphocytes # 1.4 10^3/uL (0.8-4.8); Mean Corpuscular HGB Conc 30.8 g/dL (30.0-36.0); Mean Corpuscular Hemoglobin 30.8 pg (28.0-34.0); Mean Platelet Volume 11.6 fL (7.4-10.4); Monocytes % 14.4 %; Neutrophils # 3.85 10^3/uL (1.8-7.7); Neutrophils % 56.7 %; Nucleated Red Blood Cells % 0.4 %; Platelet Count 116 10^3/cmm (130-400); Red Blood Count 2.89 10^6/uL (4.1-5.3); Red Cell Distribution Width 17.1 % (12.1-15.1); White Blood Count 6.8 10^3/uL (4.0-10.0)
[2021-07-11] MEDS: levothyroxine 25 mcg Tablet PO (05:12)
[2021-07-11] MEDS: levothyroxine 200 mcg Tablet PO (05:12)
[2021-07-11 05:17] LABS: Albumin Level 2.3 g/dL (3.5-5.2); Anion Gap 18.6 (5-19); Blood Urea Nitrogen 46 mg/dL (8-23); Calcium 7.5 mg/dL (8.5-10.5); Carbon Dioxide 21 mmol/L (22-29); Chloride 100 mmol/L (98-107); Glucose 106 mg/dL (65-115); Magnesium 1.6 mg/dL (1.7-2.3); Phosphorus 4.6 mg/dL (2.5-4.5); Potassium 4.6 mmol/L (3.5-5.1); Sodium 135 mmol/L (136-145)
--- NOTE | 2021-07-11 06:31 | PC.NURSE ---
Shift Note Frequent safety and comfort rounds continue. Orders and/or nursing care completed as indicated. Patient monitored for response to intervention and treatment(s). Education provided includes turning. Patient and/or safety 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 reinforcement needed. Will continue to monitor.
[2021-07-11 07:44] LABS: Glucose Point of Care 112 mg/dL (70-110)
[2021-07-11] MEDS: clopidogrel 75 mg Tablet PO (08:25)
[2021-07-11] MEDS: citalopram 20 mg Tablet 10 MG PO (08:25)
[2021-07-11] MEDS: aspirin 81 mg EC Tablet PO (08:25)
[2021-07-11] MEDS: phenytoin ER 100 mg Capsule 200 MG PO ×2 (08:25→21:48)
[2021-07-11] MEDS: magnesium oxide 400 mg tablet PO (08:25)
[2021-07-11] MEDS: fluconazole 100 mg Tablet 200 MG PO (08:25)
[2021-07-11] MEDS: pantoprazole DR 40 mg Tablet PO (08:25)
[2021-07-11] MEDS: FUROsemide 10 mg/mL SDV 10mL 80 MG IVP ×2 (08:26→21:45)
[2021-07-11] MEDS: calcitriol 0.25 mcg Capsule PO (08:54)
--- NOTE | 2021-07-11 09:51 | PC.CHAP ---
Pastoral Care Encounter/Spiritual Assessment Type of Contact [] Declined procurement coordinator visit [] Patient/Family/Request visit [] Outpatient visit [] Follow-up visit [] Physician referral [] Code/Alert [x] Routine visit [] Staff referral [] Actively dying [x] Patient sleeping [] Family support [] [] Out of room [] Palliative care [] [] Receiving care in room [] Pre-surgical visit [] Trauma [] Long length of stay [x] ICU visit [] Other: Relational/Emotional Strength [] Patient feels connected with others/family/visitors/staff [] Distress [] Loneliness/isolation [] Abandonment Spirituality of Patient [] Person of Jennifer [] Attends Spiritism of their Jennifer [] Believes in Prayer [] Reads Bible or Christian materials [] There are Spiritual issues to be addressed Allied Health Teacher Interventions [x] Prayer [] Active listening [] Non-anxious presence [] Spiritual/emotional support [] Crisis/trauma care [] Spiritual counseling [] Bereavement support [] Provided bereavement packet [] Provided Bible/devotional materials [] Provided toy/stuffed animal, coloring book to patient or family member [] Provided Communion [] Anointing/[place] [] Salvation [x] Completed spiritual assessment [] Other: Impact on Illness or Injury [] Angry [] Fearful [] Anxious [] Often cries [] Exhaustion [] Unable to work [] Unable to attend latter day [] Unable to walk/stand [] Unable to read [] Unable to drive [] Unable to eat/drink [] Unable to sleep [] Unable to be with family [] Patient intubated [] Other: Summary Time spent with patient
--- NOTE | 2021-07-11 11:22 | P.PN_ITS ---
Subjective Subjective: Interval history: She is a little weak but otherwise she is ok with no new issues. She still has significant edema in her LE. Breathing comfortably. No uremic sx Medications: Reviewed: Yes Medication Review Details: Generic Name Dose Route Start Last Admin Trade Name Freq PRN Reason Stop Dose Admin Hydrocodone Bitart /Acetaminophen 1 tab 07/07/21 03:44 07/08/21 20:06 Hydrocodone-Acet aminophen 5-325 Mg Tablet PO 1 tab Q6H PRN Administration MODERATE PAIN Aspirin 81 mg 07/06/21 08:00 07/10/21 09:08 Aspirin 81 Mg Ec Tablet PO 81 mg DAILY@08 ARMINDA Administration Atorvastatin Calci um 80 mg 07/06/21 21:00 07/09/21 20:04 Atorvastatin 40 Mg Tablet PO 80 mg BEDTIME ARMINDA Administration Calcitriol 0.25 mcg 07/06/21 08:00 07/10/21 09:08 Calcitriol 0.25 Mcg Capsule PO 0.25 mcg DAILY@0800 ARMINDA Administration Citalopram Hydrobr omide 10 mg 07/06/21 09:00 07/10/21 09:08 Citalopram 20 Mg Tablet PO 10 mg DAILY ARMINDA Administration Clopidogrel Bisulf ate 75 mg 07/06/21 08:00 07/10/21 09:07 Clopidogrel 75 M g Tablet PO 75 mg DAILY@0800 ARMINDA Administration Fluconazole 200 mg 07/10/21 09:00 07/10/21 09:08 Fluconazole 100 Mg Tablet PO 200 mg DAILY ARMINDA Administration Furosemide 80 mg 07/07/21 08:00 07/10/21 09:06 Furosemide 10 Mg /Ml Sdv 10ml IVP 80 mg Q12H ARMINDA Administration Norepinephrine Bit artrate 4 mg 254 mls @ 0 mls/h r 07/06/21 07:15 07/07/21 12:56 / Dextrose IV 0 mcg/min .Q0M ARMINDA 0 mls/hr Titration Protocol Per Protocol Insulin Human Lisp ro 0 unit 07/06/21 08:00 07/10/21 09:08 Insulin Lispro 1 00 Unit/1 Ml SUBCUT Not Given WM&BEDTIME ARMINDA Protocol Levothyroxine Sodi um 25 mcg 07/06/21 06:00 07/10/21 05:00 Levothyroxine 25 Mcg Tablet PO 25 mcg DAILY@06 ARMINDA Administration Levothyroxine Sodi um 200 mcg 07/06/21 06:00 07/10/21 05:00 Levothyroxine 20 0 Mcg Tablet PO 200 mcg DAILY@06 ARMINDA Administration Ondansetron HCl 4 mg 07/08/21 09:16 07/10/21 08:14 Ondansetron 2 Mg /Ml Sdv 2 Ml IVP 4 mg Q6H PRN Administration NAUSEA AND VOMITI NG Pantoprazole Sodiu m 40 mg 07/06/21 08:00 07/10/21 09:[address] 40 Mg Tablet PO 40 mg DAILY@08 ARMINDA Administration Phenytoin 200 mg 07/06/21 08:00 07/10/21 09:07 Phenytoin Er 100 Mg Capsule PO 200 mg BID@08,20 ARMINDA Administration Vitals/I&O/Wt Last Vital Signs Temp 97.8 F 07/11/21 07:00 Pulse 112 H 07/11/21 10:00 Resp 13 07/11/21 10:00 BP 126/78 07/11/21 10:00 Pulse Ox 99 07/11/21 10:00 07/10/21 07/11/21 07/11/21 22:59 06:59 14:59 Intake Total 30 / 30 0 / 30 118 / 118 Output Total 400 / 400 450 / 850 Balance -370 / -370 -450 / -820 118 / 118 Physical Exam Narrative: EXAM NARRATIVE: Constitutional: Awake, comfortable HEENT: Wet mucosa, no jvp, non icteric Lungs: Bilaterally clear without discernible wheeze or rales in all lung zones CVS: S1 S2, no murmurs Abdo: Soft, BS ok Ext 4: 2-3+ edema, peripheral perfusion with no cyanosis Neurological: Grossly non-focal Urinary Catheter Management^: Acevedo: Cath Placed During This Visit: no Reason for Continuing Indwelling Catheter: Accurate Measurement of Urinary Output in Critically Ill Patients Data : 07/11/21 03:33 07/11/21 03:33 Micro: Microbiology 07/05/21 23:00 Blood Culture - Final Blood NO GROWTH AFTER 5 DAYS 07/05/21 22:19 Blood Culture - Final Blood NO GROWTH AFTER 5 DAYS A&P Additional A&P Information 1. Acute renal failure It appears that she has oligoanuric renal failure at this time. Likely from ischemic ATN in the setting of labile hemodynamics and sepsis, contrast nep hropathy is also a possibility. creatinine remains stable, urine output remains robust No indication for dialysis and line should be removed today Strict I's and O's Dose medication for GFR less than 15 on dialysis 2. Chemistry Well balanced. Continue close monitoring whilst in renal failure. 3. Hypotension septic/cardiogenic. Levophed as needed 4. ID issues Leukocytosis on arrival, urine with evidence of infection on 07/04 and also on admission. Funguria found on urinalysis/culture on 07/04. Defer antibiotic coverage to Dr. Perry Thank you for consultation, it is a pleasure to follow these cases with you Exam and interview performed with aid of bedside RN using telemedicine Time spent 20 min inc > 50% of time in face to face counseling Corbin Sánchez MD [facility] [phone] Attestations Medical Necessity Statement*: Eval for TIFFANY Coding Level of Care Code Acute Metallurgical Laboratory Assistant for Sosa Bates
--- NOTE | 2021-07-11 11:29 | P.PN_ITS ---
Subjective Subjective: Interval history: The patient reports feeling better today. Denies any pain. No shortness of breath. No fever or chills. No nausea or vomiting Medications: Reviewed: Yes Medication Review Details: Generic Name Dose Route Start Last Admin Trade Name Susan PRN Reason Stop Dose Admin Aspirin 81 mg 07/06/21 08:00 07/11/21 08:25 Aspirin 81 Mg Ec Tablet PO 81 mg DAILY@08 ARMINDA Administration Atorvastatin Calci um 80 mg 07/06/21 21:00 07/10/21 20:52 Atorvastatin 40 Mg Tablet PO 80 mg BEDTIME ARMIDNA Administration Calcitriol 0.25 mcg 07/06/21 08:00 07/11/21 08:54 Calcitriol 0.25 Mcg Capsule PO 0.25 mcg DAILY@0800 ARMINDA Administration Citalopram Hydrobr omide 10 mg 07/06/21 09:00 07/11/21 08:25 Citalopram 20 Mg Tablet PO 10 mg DAILY ARMINDA Administration Clopidogrel Bisulf ate 75 mg 07/06/21 08:00 07/11/21 08:25 Clopidogrel 75 M g Tablet PO 75 mg DAILY@0800 ARMINDA Administration Fluconazole 200 mg 07/10/21 09:00 07/11/21 08:25 Fluconazole 100 Mg Tablet PO 200 mg DAILY ARMINDA Administration Furosemide 80 mg 07/07/21 08:00 07/11/21 08:26 Furosemide 10 Mg /Ml Sdv 10ml IVP 80 mg Q12H ARMINDA Administration Norepinephrine Bit artrate 4 mg 254 mls @ 0 mls/h r 07/06/21 07:15 07/07/21 12:56 / Dextrose IV 0 mcg/min .Q0M ARMINDA 0 mls/hr Titration Protocol Per Protocol Insulin Human Lisp ro 0 unit 07/06/21 08:00 07/11/21 08:26 Insulin Lispro 1 00 Unit/1 Ml SUBCUT Not Given WM&BEDTIME ARMINDA Protocol Levothyroxine Sodi um 25 mcg 07/06/21 06:00 07/11/21 05:12 Levothyroxine 25 Mcg Tablet PO 25 mcg DAILY@06 ARMINDA Administration Levothyroxine Sodi um 200 mcg 07/06/21 06:00 07/11/21 05:12 Levothyroxine 20 0 Mcg Tablet PO 200 mcg DAILY@06 ARMINDA Administration Ondansetron HCl 4 mg 07/08/21 09:16 07/10/21 08:14 Ondansetron 2 Mg /Ml Sdv 2 Ml IVP 4 mg Q6H PRN Administration NAUSEA AND VOMITI NG Pantoprazole Sodiu m 40 mg 07/06/21 08:00 07/11/21 08:[address] 40 Mg Tablet PO 40 mg DAILY@08 ARMINDA Administration Phenytoin 200 mg 07/06/21 08:00 07/11/21 08:25 Phenytoin Er 100 Mg Capsule PO 200 mg BID@08,20 ARMINDA Administration Vitals/I&O/Wt Last Vital Signs Temp 97.8 F 07/11/21 07:00 Pulse 112 H 07/11/21 10:00 Resp 13 07/11/21 10:00 BP 126/78 07/11/21 10:00 Pulse Ox 99 07/11/21 10:00 07/10/21 07/11/21 07/11/21 22:59 06:59 14:59 Intake Total 30 / 30 0 / 30 118 / 118 Output Total 400 / 400 450 / 850 Balance -370 / -370 -450 / -820 118 / 118 Physical Exam Narrative: EXAM NARRATIVE: Awake alert oriented. No acute distress. Mood and affect are appropriate. Responses are adequate. Skin is warm and dry. Moist extremities Eyes PERRL, extraocular muscles are intact Heart S1, S2, irregular Lungs are clear. No respiratory distress. Neck is supple. No JVD Abdomen is soft, nontender, bowel sounds are present Extremities 2+ bilateral lower extremity edema. Chronic venous stasis changes. No peripheral cyanosis. Left groin area without evidence of active bleeding. The dressing is dry and clean. No visible swelling or bruising in the area. No calf tenderness bilaterally Neuro examination is nonfocal. Urinary Catheter Management^: Acevedo: Cath Placed During This Visit: no Reason for Continuing Indwelling Catheter: Accurate Measurement of Urinary Output in Critically Ill Patients Data : 07/11/21 03:33 07/11/21 03:33 Micro: Microbiology 07/05/21 23:00 Blood Culture - Final Blood NO GROWTH AFTER 5 DAYS 07/05/21 22:19 Blood Culture - Final Blood NO GROWTH AFTER 5 DAYS A&P Assessment and plan (1) CKD (chronic kidney disease): Status: Acute (2) Venous stasis: Status: Chronic (3) Dyslipidemia: Status: Chronic (4) Atherosclerotic heart disease of [place] coronary artery with unstable angina pectoris: Status: Chronic Qualifiers: [place] vs. transplanted heart: [place] heart Qualified Code(s): I25.110 - Atherosclerotic heart disease of [place] coronary artery with unstable angina pectoris (5) Atrial fibrillation with RVR: Status: Acute (6) Acute on chronic congestive heart failure: Status: Acute Qualifiers: Heart failure type: systolic Qualified Code(s): I50.23 - Acute on chronic systolic (congestive) heart failure (7) Diabetes: Status: Acute Qualifiers: Chronic kidney disease stage: stage 3 (moderate) Chronic kidney disease stage 3 subtype: stage 3b (GFR 30-44) Diabetes mellitus complication detail: with chronic kidney disease Diabetes mellitus complication status: with kidney complications Diabetes mellitus penitentiary insulin use: with construction field engineer use Diabetes mellitus type: type 2 Qualified Code(s): E11.22 - Type 2 diabetes mellitus with diabetic chronic kidney disease; N18.32 - Chronic kidney disease, stage 3b; Z79.4 - bulk station operator (current) use of insulin (8) Acute renal failure: Status: Acute (9) Warfarin-induced coagulopathy: Status: Acute Additional A&P Information Acute kidney injury on top of chronic kidney disease. Acute contrast nephropathy and/or ATN secondary to sepsis are suspected. Management per Dr. Sánchez. I appreciate his input. Renal function remains stable. Continue close monitoring. Sepsis. Resolved. UTI suspected. Cultures were positive for yeast. Antibiotics are discontinued. Fluconazole for now. A. fib with RVR. Rate controlled. Continue current cardiac management. Warfarin is on hold due to coagulopathy and bleeding from the left groin area. Discussed with Dr. Bean yesterday. Coagulopathy. As above. Thrombocytopenia. Mild and stable. Continue monitoring Diabetes. Continue current management with Levemir and insulin sliding scale. Coronary artery disease. On dual antiplatelet therapy. No chest pain. Discussed with Dr. Bean When there is no problem with the bleeding we can resume warfarin and stop her aspirin. CHF. Stable currently. No evidence of decompensation at this point. Continue current management including Lasix. Anemia. The patient received transfusions due to acute blood loss from the left femoral line access point. Currently stable. Continue monitoring. Left femoral line access point bleeding. It seems that it has stopped now. Continue monitoring. Hypomagnesemia. Replace and monitor. The plan of care was discussed with the patient. She verbalized understanding and agreement. Discussed with multidisciplinary team. Attestations Medical Necessity Statement*: Being transferred to [facility] floor today. Coding Level of Care Code Acute Operations Manager for g Fwd Diagnoses CKD (chronic kidney disease) N18.9 Venous stasis I87.8 Dyslipidemia E78.5 Atherosclerotic heart disease of [place] coronary artery with unstable angina pectoris I25.110 [place] vs. transplanted heart: [place] heart Atrial fibrillation with RVR I48.91 Acute on chronic congestive heart failure I50.23 Heart failure type: systolic Diabetes E11.22; N18.32; Z79.4 Chronic kidney disease stage: stage 3 (moderate) Chronic kidney disease stage 3 subtype: stage 3b (GFR 30-44) Diabetes mellitus complication detail: with chronic kidney disease Diabetes mellitus complication status: with kidney complications Diabetes mellitus construction field engineer insulin use: with construction field engineer use Diabetes mellitus type: type 2 Acute renal failure N17.9 Warfarin-induced coagulopathy D68.32; T45.515A
--- NOTE | 2021-07-11 12:09 | PC.NURSE ---
Dialysis catheter removed at 1040. Pressure held for 15 minutes. Son at bedside. Patient tolerated well. Sand bag placed.
[2021-07-11 13:02] LABS: Glucose Point of Care 137 mg/dL (70-110)
[2021-07-11 17:31] LABS: Glucose Point of Care 127 mg/dL (70-110)
--- NOTE | 2021-07-11 18:42 | PC.NURSE ---
Shift Note Frequent safety and comfort rounds continue. Orders and/or nursing care completed as indicated. Patient monitored for response to intervention and treatment(s). Education provided includes new orders, care plan, and medications. Patient verbalized understanding. Dialysis catheter removed today. Patient up to side of bed with PT. Family visited and update given. Patient refused dinner. Patient only had an applesauce and pudding to eat. Patient to be transfered to 259 bed 2. Family notified. Nurse called to give report 4 times.
[2021-07-11 20:19] LABS: Fungitell 1-3-B Glucan Assay 34 pg/mL; Interpretation NEGATIVE
[2021-07-11 21:28] LABS: Glucose Point of Care 124 mg/dL (70-110)
[2021-07-11] MEDS: atorvastatin 40 mg Tablet 80 MG PO (21:48)
[2021-07-11] MEDS: folic acid 1 mg Tablet 2 MG PO (21:49)
[2021-07-12] VITALS (9 sets, daily range): BP systolic 105–126; BP diastolic 67–86; PULSE 69–119; RESP 17–23; TEMP 36.4–37.1; O2SAT 90–99
[2021-07-12] MEDS: levothyroxine 200 mcg Tablet PO (05:10)
[2021-07-12] MEDS: levothyroxine 25 mcg Tablet PO (05:10)
[2021-07-12 06:34] LABS: Glucose Point of Care 119 mg/dL (70-110)
[2021-07-12 06:49] LABS: Basophils # 0.1 10^3/uL (0.0-0.1); Eosinophils # 0.2 10^3/uL (0.0-0.8); Eosinophils % 3.2 %; Hematocrit 27.2 % (37.0-47.0); Hemoglobin 8.4 g/dL (11.5-15.3); Lymphocytes # 1.5 10^3/uL (0.8-4.8); Lymphocytes % 24.2 %; Mean Corpuscular HGB Conc 30.9 g/dL (30.0-36.0); Mean Corpuscular Hemoglobin 30.2 pg (28.0-34.0); Mean Corpuscular Volume 97.8 fl (81-99); Mean Platelet Volume 11.1 fL (7.4-10.4); Monocytes # 0.7 10^3/uL (0.2-0.9); Monocytes % 11.8 %; Neutrophils # 3.65 10^3/uL (1.8-7.7); Neutrophils % 58.8 %; Nucleated Red Blood Cells % 0.6 %; Platelet Count 123 10^3/cmm (130-400); Red Blood Count 2.78 10^6/uL (4.1-5.3); Red Cell Distribution Width 16.9 % (12.1-15.1); White Blood Count 6.2 10^3/uL (4.0-10.0)
[2021-07-12 07:07] LABS: Albumin Level 2.6 g/dL (3.5-5.2); Anion Gap 16.4 (5-19); Blood Urea Nitrogen 47 mg/dL (8-23); Calcium 7.5 mg/dL (8.5-10.5); Carbon Dioxide 25 mmol/L (22-29); Chloride 98 mmol/L (98-107); Glucose 103 mg/dL (65-115); Phosphorus 4.8 mg/dL (2.5-4.5); Potassium 4.4 mmol/L (3.5-5.1); Sodium 135 mmol/L (136-145)
[2021-07-12 07:08] LABS: Magnesium 1.7 mg/dL (1.7-2.3)
[2021-07-12] MEDS: pantoprazole DR 40 mg Tablet PO (09:01)
[2021-07-12] MEDS: phenytoin ER 100 mg Capsule 200 MG PO ×2 (09:01→21:26)
[2021-07-12] MEDS: aspirin 81 mg EC Tablet PO (09:01)
[2021-07-12] MEDS: calcitriol 0.25 mcg Capsule PO (09:01)
[2021-07-12] MEDS: clopidogrel 75 mg Tablet PO (09:01)
[2021-07-12] MEDS: fluconazole 100 mg Tablet 200 MG PO (09:01)
[2021-07-12] MEDS: gabapentin 100 mg Capsule PO ×2 (09:01→21:26)
[2021-07-12] MEDS: citalopram 20 mg Tablet 10 MG PO (09:02)
[2021-07-12] MEDS: FUROsemide 10 mg/mL SDV 10mL 80 MG IVP (09:02)
--- NOTE | 2021-07-12 09:44 | PM.PN ---
Subjective Subjective: Interval history: Ms. Lee feels generally weak, generally unwell, mild nausea. Medications: Reviewed: Yes Medication Review Details: Generic Name Dose Route Start Last Admin Trade Name Susan PRNolberto Reason Stop Dose Admin Aspirin 81 mg 07/06/21 08:00 07/11/21 08:25 Aspirin 81 Mg Ec Tablet PO 81 mg DAILY@08 ARMINDA Administration Atorvastatin Calci um 80 mg 07/06/21 21:00 07/10/21 20:52 Atorvastatin 40 Mg Tablet PO 80 mg BEDTIME ARMINDA Administration Calcitriol 0.25 mcg 07/06/21 08:00 07/11/21 08:54 Calcitriol 0.25 Mcg Capsule PO 0.25 mcg DAILY@0800 ARMINDA Administration Citalopram Hydrobr omide 10 mg 07/06/21 09:00 07/11/21 08:25 Citalopram 20 Mg Tablet PO 10 mg DAILY ARMINDA Administration Clopidogrel Bisulf ate 75 mg 07/06/21 08:00 07/11/21 08:25 Clopidogrel 75 M g Tablet PO 75 mg DAILY@0800 ARMINDA Administration Fluconazole 200 mg 07/10/21 09:00 07/11/21 08:25 Fluconazole 100 Mg Tablet PO 200 mg DAILY ARMINDA Administration Furosemide 80 mg 07/07/21 08:00 07/11/21 08:26 Furosemide 10 Mg /Ml Sdv 10ml IVP 80 mg Q12H ARMINDA Administration Norepinephrine Bit artrate 4 mg 254 mls @ 0 mls/h r 07/06/21 07:15 07/07/21 12:56 / Dextrose IV 0 mcg/min .Q0M ARMINDA 0 mls/hr Titration Protocol Per Protocol Insulin Human Lisp ro 0 unit 07/06/21 08:00 07/11/21 08:26 Insulin Lispro 1 00 Unit/1 Ml SUBCUT Not Given WM&BEDTIME ARMINDA Protocol Levothyroxine Sodi um 25 mcg 07/06/21 06:00 07/11/21 05:12 Levothyroxine 25 Mcg Tablet PO 25 mcg DAILY@06 ARMINDA Administration Levothyroxine Sodi um 200 mcg 07/06/21 06:00 07/11/21 05:12 Levothyroxine 20 0 Mcg Tablet PO 200 mcg DAILY@06 ARMINDA Administration Ondansetron HCl 4 mg 07/08/21 09:16 07/10/21 08:14 Ondansetron 2 Mg /Ml Sdv 2 Ml IVP 4 mg Q6H PRN Administration NAUSEA AND VOMITI NG Pantoprazole Sodiu m 40 mg 07/06/21 08:00 07/11/21 08:[address] 40 Mg Tablet PO 40 mg DAILY@08 ARMINDA Administration Phenytoin 200 mg 07/06/21 08:00 07/11/21 08:25 Phenytoin Er 100 Mg Capsule PO 200 mg BID@08,20 ARMINDA Administration Vitals/I&O/Wt Last Vital Signs Temp 97.5 F L 07/12/21 07:35 Pulse 108 H 07/12/21 07:35 Resp 20 H 07/12/21 07:35 BP 115/72 07/12/21 07:35 Pulse Ox 97 07/12/21 07:35 07/11/21 07/12/21 07/12/21 22:59 06:59 14:59 Output Total 525 / 525 450 / 975 Balance -525 / -407 -450 / -857 Weight last 48 hrs Weight 154.131 kg Physical Exam Narrative: EXAM NARRATIVE: Constitutional: Awake, comfortable HEENT: Wet mucosa, no jvp, non icteric Lungs: Bilaterally clear without discernible wheeze or rales in all lung zones CVS: S1 S2, no murmurs Abdo: Soft, BS ok Ext 4: 2-3+ edema, peripheral perfusion with no cyanosis Neurological: Grossly non-focal Urinary Catheter Management^: Acevedo: Cath Placed During This Visit: no Reason for Continuing Indwelling Catheter: Acute Urinary Retention or Obstruction Data : 07/12/21 06:18 07/12/21 06:18 A&P Additional A&P Information 1. Acute renal failure It appears that she has oligoanuric renal failure at this time. Likely from ischemic ATN in the setting of labile hemodynamics and sepsis, contrast nephropathy is also a possibility. creatinine remains stable, urine output remains robust Switch iv Lasix to po Bumex Strict I's and O's Dose medication for GFR less than 15 on dialysis 2. Chemistry Well balanced. Continue close monitoring whilst in renal failure. 3. Hypotension septic/cardiogenic. Levophed as needed 4. ID issues Leukocytosis on arrival, urine with evidence of infection on 07/04 and also on admission. Funguria found on urinalysis/culture on 07/04. Defer antibiotic coverage to Dr. Perry Thank you for consultation, it is a pleasure to follow these cases with you Exam and interview performed with aid of bedside RN using telemedicine Time spent 20 min inc > 50% of time in face to face counseling Corbin Sánchez MD [facility] [phone] Attestations Medical Necessity Statement*: TIFFANY Coding Level of Care Code Acute Mud Grinder for Sosa Bates
--- NOTE | 2021-07-12 10:33 | PC.SOCIAL ---
IMM Updated Updated pt on IMM. No questions voiced. Provided pt a copy. Initialed, dated, & timed copy in chart.
[2021-07-12 10:56] LABS: Glucose Point of Care 125 mg/dL (70-110)
--- NOTE | 2021-07-12 12:46 | P.PN_ITS ---
Subjective Subjective: Interval history: The patient reports feeling tired. Denies any other complaints. The bleeding from the groin area has stopped. Denies chest pain, shortness of breath, cough, palpitations. No nausea or vomiting. Medications: Reviewed: Yes Medication Review Details: Generic Name Dose Route Start Last Admin Trade Name Susan PRN Reason Stop Dose Admin Aspirin 81 mg 07/06/21 08:00 07/12/21 09:01 Aspirin 81 Mg Ec Tablet PO 81 mg DAILY@08 ARMINDA Administration Atorvastatin Calci um 80 mg 07/06/21 21:00 07/11/21 21:48 Atorvastatin 40 Mg Tablet PO 80 mg BEDTIME ARMINDA Administration Calcitriol 0.25 mcg 07/06/21 08:00 07/12/21 09:01 Calcitriol 0.25 Mcg Capsule PO 0.25 mcg DAILY@0800 [facility] Administration Citalopram Hydrobr omide 10 mg 07/06/21 09:00 07/12/21 09:02 Citalopram 20 Mg Tablet PO 10 mg DAILY ARMINDA Administration Clopidogrel Bisulf ate 75 mg 07/06/21 08:00 07/12/21 09:01 Clopidogrel 75 M g Tablet PO 75 mg DAILY@0800 [facility] Administration Fluconazole 200 mg 07/10/21 09:00 07/12/21 09:01 Fluconazole 100 Mg Tablet PO 200 mg DAILY [facility] Administration Folic Acid 2 mg 07/11/21 20:55 07/11/21 21:49 Folic Acid 1 Mg Tablet PO 2 mg DAILY@20 [facility] Administration Gabapentin 100 mg 07/06/21 08:00 07/12/21 09:31 Gabapentin 100 M g Capsule PO Not Given BID@08,1999 [facility] Insulin Human Lisp ro 0 unit 07/06/21 08:00 07/12/21 07:43 Insulin Lispro 1 00 Unit/1 Ml SUBCUT Not Given WM&BEDTIME [facility] Protocol Levothyroxine Sodi um 25 mcg 07/06/21 06:00 07/12/21 05:10 Levothyroxine 25 Mcg Tablet PO 25 mcg DAILY@06 [facility] Administration Levothyroxine Sodi um 200 mcg 07/06/21 06:00 07/12/21 05:10 Levothyroxine 20 0 Mcg Tablet PO 200 mcg DAILY@06 [facility] Administration Ondansetron HCl 4 mg 07/08/21 09:16 07/10/21 08:14 Ondansetron 2 Mg /Ml Sdv 2 Ml IVP 4 mg Q6H PRN Administration NAUSEA AND VOMITI NG Pantoprazole Sodiu m 40 mg 07/06/21 08:00 07/12/21 09:[address] 40 Mg Tablet PO 40 mg DAILY@08 ARMINDA Administration Phenytoin 200 mg 07/06/21 08:00 07/12/21 09:01 Phenytoin Er 100 Mg Capsule PO 200 mg BID@08,20 ARMINDA Administration Vitals/I&O/Wt Last Vital Signs Temp 97.5 F L 07/12/21 11:18 Pulse 107 H 07/12/21 11:18 Resp 222 H 07/12/21 11:18 BP 124/78 07/12/21 11:18 Pulse Ox 97 07/12/21 11:18 07/11/21 07/12/21 07/12/21 22:59 06:59 14:59 Output Total 525 / 525 450 / 975 Balance -525 / -407 -450 / -857 Weight last 48 hrs Weight 154.131 kg Physical Exam Narrative: EXAM NARRATIVE: Awake alert oriented. No acute distress. Mood and affect are appropriate. Responses are adequate. Skin is warm and dry. Moist extremities Eyes PERRL, extraocular muscles are intact Heart S1, S2, irregular Lungs are clear. No respiratory distress. Neck is supple. No JVD Abdomen is soft, nontender, bowel sounds are present Extremities 2+ bilateral lower extremity edema. Chronic venous stasis changes. No peripheral cyanosis. Left groin area without evidence of active bleeding. The dressing is dry and clean. No visible swelling or bruising in the area. No calf tenderness bilaterally Neuro examination is nonfocal. Urinary Catheter Management^: Acevedo: Cath Placed During This Visit: no Reason for Continuing Indwelling Catheter: Acute Urinary Retention or Obstruction Data : 07/12/21 06:18 07/12/21 06:18 A&P Assessment and plan (1) CKD (chronic kidney disease): Status: Inactive (2) Venous stasis: Status: Chronic (3) Dyslipidemia: Status: Chronic (4) Atherosclerotic heart disease of [place] coronary artery with unstable angina pectoris: Status: Chronic Qualifiers: [place] vs. transplanted heart: [place] heart Qualified Code(s): I25.110 - Atherosclerotic heart disease of [place] coronary artery with unstable angina pectoris (5) Atrial fibrillation with RVR: Status: Acute (6) Acute on chronic congestive heart failure: Status: Acute Qualifiers: Heart failure type: systolic Qualified Code(s): I50.23 - Acute on chronic systolic (congestive) heart failure (7) Diabetes: Status: Acute Qualifiers: Chronic kidney disease stage: stage 3 (moderate) Chronic kidney disease stage 3 subtype: stage 3b (GFR 30-44) Diabetes mellitus complication detail: with chronic kidney disease Diabetes mellitus complication status: with kidney complications Diabetes mellitus correction insulin use: with intermediate frame tender use Diabetes mellitus type: type 2 Qualified Code(s): E11.22 - Type 2 diabetes mellitus with diabetic chronic kidney disease; N18.32 - Chronic kidney disease, stage 3b; Z79.4 - group home (current) use of insulin (8) Acute renal failure: Status: Acute (9) Warfarin-induced coagulopathy: Status: Acute Additional A&P Information Acute kidney injury on top of chronic kidney disease. Acute contrast nephropathy and/or ATN secondary to sepsis are suspected. Management per Dr. Sánchez. I appreciate his input. Renal function is improving now. Continue close monitoring. Sepsis. Resolved. UTI suspected. Cultures were positive for yeast. Antibiotics are discontinued. Fluconazole for now. A. fib with RVR. Rate controlled. Continue current cardiac management. Warfarin is on hold due to coagulopathy and bleeding from the left groin area. Discussed with Dr. Bean yesterday. We will recheck her INR tomorrow and consider resuming warfarin. Aspirin will need to be gradually discontinued when INR starts moving up. Coagulopathy. Resolved. As above Thrombocytopenia. Mild and stable. Continue monitoring Diabetes. Continue current management with Levemir and insulin sliding scale. Coronary artery disease. On dual antiplatelet therapy. No chest pain. Discussed with Dr. Bean When there is no problem with the bleeding we can resume warfarin and stop her aspirin. CHF. Stable currently. No evidence of decompensation at this point. Continue current management including Lasix. Anemia. The patient received transfusions due to acute blood loss from the left femoral line access point. Currently stable. Continue monitoring. Left femoral line access point bleeding. It seems that it has stopped now. C ontinue monitoring. Hypomagnesemia. Replace and monitor. Generalized deconditioning and debilitated state. Continue PT OT efforts. The plan of care was discussed with the patient. She verbalized understanding and agreement. Discussed with multidisciplinary team. Disposition. Waiting for insurance approval for shelter facility placement. Attestations Medical Necessity Statement*: Pending insurance authorization for placement to shelter facility. Coding Level of Care Code Acute Correctional Counselor for Sosa Fwd Diagnoses CKD (chronic kidney disease) N18.9 Venous stasis I87.8 Dyslipidemia E78.5 Atherosclerotic heart disease of [place] coronary artery with unstable angina pectoris I25.110 [place] vs. transplanted heart: [place] heart Atrial fibrillation with RVR I48.91 Acute on chronic congestive heart failure I50.23 Heart failure type: systolic Diabetes E11.22; N18.32; Z79.4 Chronic kidney disease stage: stage 3 (moderate) Chronic kidney disease stage 3 subtype: stage 3b (GFR 30-44) Diabetes mellitus complication detail: with chronic kidney disease Diabetes mellitus complication status: with kidney complications Diabetes mellitus intermediate frame tender insulin use: with correction use Diabetes mellitus type: type 2 Acute renal failure N17.9 Warfarin-induced coagulopathy D68.32; T45.515A
[2021-07-12 17:34] LABS: Glucose Point of Care 229 mg/dL (70-110)
[2021-07-12] MEDS: insulin lispro 100 unit/1 mL SUBCUT (17:48)
[2021-07-12 20:19] LABS: Glucose Point of Care 112 mg/dL (70-110)
[2021-07-12] MEDS: folic acid 1 mg Tablet 2 MG PO (21:25)
[2021-07-12] MEDS: atorvastatin 40 mg Tablet 80 MG PO (21:26)
[2021-07-13] VITALS (9 sets, daily range): BP systolic 90–103; BP diastolic 51–69; PULSE 96–118; RESP 14–20; TEMP 36.5–36.9; O2SAT 91–100
[2021-07-13] MEDS: ondansetron 2 mg/ML SDV 2 mL 4 MG IVP (00:54)
[2021-07-13] MEDS: levothyroxine 200 mcg Tablet PO (06:13)
[2021-07-13] MEDS: levothyroxine 25 mcg Tablet PO (06:13)
[2021-07-13 06:55] LABS: INR 1.03 (0.8-1.2)
[2021-07-13 07:10] LABS: Basophils % 0.4 %; Eosinophils # 0.1 10^3/uL (0.0-0.8); Eosinophils % 1.4 %; Hematocrit 27.3 % (37.0-47.0); Hemoglobin 8.4 g/dL (11.5-15.3); Lymphocytes # 1.5 10^3/uL (0.8-4.8); Mean Corpuscular HGB Conc 30.8 g/dL (30.0-36.0); Mean Corpuscular Hemoglobin 30.3 pg (28.0-34.0); Mean Corpuscular Volume 98.6 fl (81-99); Monocytes # 0.8 10^3/uL (0.2-0.9); Monocytes % 10.6 %; Neutrophils # 4.74 10^3/uL (1.8-7.7); Neutrophils % 65.8 %; Nucleated Red Blood Cells % 0.6 %; Platelet Count 106 10^3/cmm (130-400); Red Blood Count 2.77 10^6/uL (4.1-5.3); Red Cell Distribution Width 16.9 % (12.1-15.1); White Blood Count 7.2 10^3/uL (4.0-10.0)
[2021-07-13 07:19] LABS: Albumin Level 2.6 g/dL (3.5-5.2); Anion Gap 16.4 (5-19); Blood Urea Nitrogen 50 mg/dL (8-23); Calcium 7.6 mg/dL (8.5-10.5); Carbon Dioxide 27 mmol/L (22-29); Chloride 100 mmol/L (98-107); Glucose 91 mg/dL (65-115); Phosphorus 4.7 mg/dL (2.5-4.5); Potassium 4.4 mmol/L (3.5-5.1); Sodium 139 mmol/L (136-145)
[2021-07-13 08:38] LABS: Glucose Point of Care 142 mg/dL (70-110)
--- NOTE | 2021-07-13 09:06 | P.PN_ITS ---
Subjective Subjective: Interval history: Feels ok, sleepy on exam today. No new issues, currently waiting for a bed Medications: Reviewed: Yes Medication Review Details: Generic Name Dose Route Start Last Admin Trade Name uSsan PRN Reason Stop Dose Admin Aspirin 81 mg 07/06/21 08:00 07/12/21 09:01 Aspirin 81 Mg Ec Tablet PO 81 mg DAILY@08 ARMINDA Administration Atorvastatin Calci um 80 mg 07/06/21 21:00 07/11/21 21:48 Atorvastatin 40 Mg Tablet PO 80 mg BEDTIME ARMINDA Administration Calcitriol 0.25 mcg 07/06/21 08:00 07/12/21 09:01 Calcitriol 0.25 Mcg Capsule PO 0.25 mcg DAILY@0800 [facility] Administration Citalopram Hydrobr omide 10 mg 07/06/21 09:00 07/12/21 09:02 Citalopram 20 Mg Tablet PO 10 mg DAILY ARMINDA Administration Clopidogrel Bisulf ate 75 mg 07/06/21 08:00 07/12/21 09:01 Clopidogrel 75 M g Tablet PO 75 mg DAILY@0800 [facility] Administration Fluconazole 200 mg 07/10/21 09:00 07/12/21 09:01 Fluconazole 100 Mg Tablet PO 200 mg DAILY [facility] Administration Folic Acid 2 mg 07/11/21 20:55 07/11/21 21:49 Folic Acid 1 Mg Tablet PO 2 mg DAILY@20 [facility] Administration Gabapentin 100 mg 07/06/21 08:00 07/12/21 09:31 Gabapentin 100 M g Capsule PO Not Given BID@0800,1999 [facility] Insulin Human Lisp ro 0 unit 07/06/21 08:00 07/12/21 07:43 Insulin Lispro 1 00 Unit/1 Ml SUBCUT Not Given WM&BEDTIME [facility] Protocol Levothyroxine Sodi um 25 mcg 07/06/21 06:00 07/12/21 05:10 Levothyroxine 25 Mcg Tablet PO 25 mcg DAILY@06 [facility] Administration Levothyroxine Sodi um 200 mcg 07/06/21 06:00 07/12/21 05:10 Levothyroxine 20 0 Mcg Tablet PO 200 mcg DAILY@06 [facility] Administration Ondansetron HCl 4 mg 07/08/21 09:16 07/10/21 08:14 Ondansetron 2 Mg /Ml Sdv 2 Ml IVP 4 mg Q6H PRN Administration NAUSEA AND VOMITI NG Pantoprazole Sodiu m 40 mg 07/06/21 08:00 07/12/21 09:[address] 40 Mg Tablet PO 40 mg DAILY@08 ARMINDA Administration Phenytoin 200 mg 07/06/21 08:00 07/12/21 09:01 Phenytoin Er 100 Mg Capsule PO 200 mg BID@08,20 ARMINDA Administration Vitals/I&O/Wt Last Vital Signs Temp 98.5 F 07/13/21 07:17 Pulse 96 07/13/21 07:17 Resp 18 07/13/21 07:17 BP 92/58 07/13/21 07:17 Pulse Ox 92 07/13/21 07:17 07/12/21 07/13/21 07/13/21 22:59 06:59 14:59 Intake Total 240 / 240 60 / 300 Output Total 450 / 450 180 / 630 Balance -210 / -210 -120 / -330 Weight last 48 hrs Weight 153.314 kg Weight 154.131 kg Physical Exam Narrative: EXAM NARRATIVE: Constitutional: Awake, comfortable HEENT: Wet mucosa, no jvp, non icteric Lungs: Bilaterally clear without discernible wheeze or rales in all lung zones CVS: S1 S2, no murmurs Abdo: Soft, BS ok Ext 4: 2-3+ edema, peripheral perfusion with no cyanosis Neurological: Grossly non-focal Urinary Catheter Management^: Acevedo: Cath Placed During This Visit: no Reason for Continuing Indwelling Catheter: Acute Urinary Retention or Obstr uction Data : 07/13/21 06:01 07/13/21 06:01 A&P Additional A&P Information 1. Acute renal failure Renal function remains stable with some slight flux Creatinine 3.2 Strict I's and O's Dose medication for GFR less than 15 on dialysis 2. Chemistry Well balanced. 3. Hemodynamics appear stable now Acute renal issues have resolved, will follow peripherally at this time, thank you Exam and interview performed with aid of bedside RN using telemedicine Time spent 20 min inc > 50% of time in face to face counseling Corbin Sánchez MD [facility] [phone] Attestations Medical Necessity Statement*: Eval for TIFFANY Coding Level of Care Code Acute Oceanography Teacher for Katerineg Jana
[2021-07-13 11:04] LABS: Glucose Point of Care 123 mg/dL (70-110)
[2021-07-13] MEDS: bumetanide 1 mg Tablet 2 MG PO (11:58)
--- NOTE | 2021-07-13 11:58 | P.PN_ITS ---
Subjective Subjective: Interval history: Seen this morning. Patient states he is quite tired and sleepy. She is unable to get out of bed because of generalized weakness. She says she needs some therapy. Otherwise did not really talk much. Does not offer any complaints today. Is awaiting placement in [facility]. Hemoglobin has been stable. Creatinine 3.2. Urine output 630 overnight. No plan to dialyze. Platelets 106 noted. Vitals/I&O/Wt Last Vital Signs Temp 97.7 F 07/13/21 10:52 Pulse 115 H 07/13/21 10:52 Resp 20 H 07/13/21 10:52 BP 90/51 07/13/21 10:52 Pulse Ox 97 07/13/21 10:52 07/12/21 07/13/21 07/13/21 22:59 06:59 14:59 Intake Total 240 / 240 60 / 300 Output Total 450 / 450 180 / 630 Balance -210 / -210 -120 / -330 Weight last 48 hrs Weight 153.314 kg Weight 154.131 kg Physical Exam Narrative: EXAM NARRATIVE: General: Alert oriented x3, patient seen laying in bed appearing comfortable at this time but looks severely deconditioned and weak. HEENT: Normocephalic, atraumatic, EOMI, breathing nasal cannula 2 L. Saturating 100%. Cardio: Irregularly irregular normal S1-S2, no gross murmurs., Groin sites appear okay with no fluctuance or evidence of hematoma. Femoral lines bilaterally have been removed already. Bandage in place. No evidence of ecchymosis. Respiratory: Diminished bilateral air entry overall with no crackles wheezes or rhonchi present. GI: Abdomen soft, nontender, nondistended, bowel sounds +, obese rounded abdomen Behavior: Appropriate and cooperative, appears tired however. Extremities: 2+ edema bilateral lower extremities. Chronic venous stasis changes present, no cyanosis present. Nonfocal neuro exam. Urinary Catheter Management^: Acevedo: Cath Placed During This Visit: no Reason for Continuing Indwelling Catheter: Acute Urinary Retention or Obstruction Data : 07/13/21 06:01 07/13/21 06:01 A&P Assessment and plan (1) Acute renal failure: Status: Acute (2) Acute renal failure superimposed on stage 3 chronic kidney disease: Status: Acute (3) CKD (chronic kidney disease): Status: Acute (4) Acute on chronic congestive heart failure: Status: Acute Qualifiers: Heart failure type: systolic Qualified Code(s): I50.23 - Acute on chronic systolic (congestive) heart failure (5) Atrial fibrillation with RVR: Status: Acute (6) Urine retention: Status: Acute (7) Orthostatic hypotension: Status: Acute (8) Atherosclerotic heart disease of [place] coronary artery with unstable angina pectoris: Status: Chronic Qualifiers: [place] vs. transplanted heart: [place] heart Qualified Code(s): I25.110 - Atherosclerotic heart disease of [place] coronary artery with unstable angina pectoris (9) Venous stasis: Status: Chronic (10) Dyslipidemia: Status: Chronic (11) Diabetes: Status: Acute Qualifiers: Chronic kidney disease stage: stage 3 (moderate) Chronic kidney disease stage 3 subtype: stage 3b (GFR 30-44) Diabetes mellitus complication detail: with chronic kidney disease Diabetes mellitus complication status: with kidney complications Diabetes mellitus care home insulin use: with care home use Diabetes mellitus type: type 2 Qualified Code(s): 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 #Atrial fibrillation, on warfarin - held warfarin for now #CAD s/p stent (recent 07/02/2021) #HTN #Hypothyroidism #DM #PVD #Thrombocytopenia #Generalized deconditioning and debilitated state -UTI resolved. Antibiotics were deescalated. Was treated for yeast in urine with fluconazole since 07/10/2021. Will complete 7 days total. - Nephrology following. Did require dialysis initially but now has been on oral diuretics and having adequate urine output. 650 cc overnight. Continue to follow nephrology recommendations[place] [address]. Echo showed EF 20-25% similar to prior recent study. Had recent stent. Discussed with cardiology. Will continue aspirin, plavix for now. Warfarin was held initially due to bleeding from catheter site. Patient also required FFP, vitamin K's to reverse warfarin induced coagulopathy. She also required blood transfusion with 2 units due to bleeding. I previously discussed with cardiology to keep aspirin and Plavix on board and discontinue warfarin. Patient will eventually need to be restarted on warfarin and aspirin will need to be tapered off. We will confirm this with cardiology before doing so. Continue atorvastatin. Spironalactone was also held initially at admission due to requirement of pressors. - Venous dopplers ruled out DVT. Arterial Dopplers also did not show any gross blockages. Femoral area was unable to be evaluated due to catheter in place. - Continue levothryoxine 250 mcg daily, sliding scale, lantus. - Cardiology and nephrology following, appreciate recs. - Continue phenytoin - Continue midodrine. -Patient has had heparin previous admission July 02 and platelets have dropped to greater than 50% since then. Thrombocytopenia could be secondary to UTI/sepsis or acute blood loss. Patient is currently not receiving any heparin products. We will check HIT panel for completion. Would like to monitor platelets. Pt no longer bleeding. ?Continue Bumex 2 mg daily -Blood pressure has been soft 90s over 50s. I will restart patient's home midodrine 10 3 times daily. Albumin 2.6. Will add albumin. PT has recommended [facility]. Awaiting placement. Code status: Full Code DVT PPX: warfarin held. Will do SCD for now. No pharmacological ppx due to risk of bleed and transfusion requirement. Prognosis guarded. Attestations Medical Necessity Statement*: > 24 hour stay. Coding Level of Care Code Acute Mold Builder for [facility] Fwd Diagnoses Acute renal failure N17.9 Acute renal failure superimposed on stage 3 chronic kidney disease N17.9; N18.30 CKD (chronic kidney disease) N18.9 Acute on chronic congestive heart failure I50.23 Heart failure type: systolic Atrial fibrillation with RVR I48.91 Urine retention R33.9 Orthostatic hypotension I95.1 Atherosclerotic heart disease of [place] coronary artery with unstable angina pectoris I25.110 [place] vs. transplanted heart: [place] heart Venous stasis I87.8 Dyslipidemia E78.5 Diabetes E11.22; N18.32; Z79.4 Chronic kidney disease stage: stage 3 (moderate) Chronic kidney disease stage 3 subtype: stage 3b (GFR 30-44) Diabetes mellitus complication detail: with chronic kidney disease Diabetes mellitus complication status: with kidney complications Diabetes mellitus care home insulin use: with care home use Diabetes mellitus type: type 2 Status post insertion of drug-eluting stent into left anterior descending (LAD) artery Z95.5 Warfarin-induced coagulopathy D68.32; T45.515A
[2021-07-13] MEDS: fluconazole 100 mg Tablet 200 MG PO (11:59)
[2021-07-13] MEDS: clopidogrel 75 mg Tablet PO (12:00)
[2021-07-13] MEDS: gabapentin 100 mg Capsule PO ×2 (12:05→20:34)
[2021-07-13] MEDS: phenytoin ER 100 mg Capsule 200 MG PO ×2 (12:06→20:34)
[2021-07-13] MEDS: calcitriol 0.25 mcg Capsule PO (12:06)
--- NOTE | 2021-07-13 13:27 | PC.CHAP ---
Pastoral Care Encounter/Spiritual Assessment Type of Contact [] Declined drum straightener visit [] Patient/Family/Request visit [] Outpatient visit [xx] Follow-up visit [] Physician referral [] Code/Alert [xx] Routine visit [] Staff referral [] Actively dying [] Patient sleeping [] Family support [] [] Out of room [] Palliative care [] [] Receiving care in room [] Pre-surgical visit [] Trauma [xx] Long length of stay [] ICU visit [] Other: Relational/Emotional Strength [xx] Patient feels connected with others/family/visitors/staff [] Distress [] Loneliness/isolation [] Abandonment Spirituality of Patient [xx] Person of Jennifer [] Attends Church of their Jennifer [xx] Believes in Prayer [] Reads Bible or Latter Day materials [] There are Spiritual issues to be addressed Last Sorter Interventions [xx] Prayer [x] Active listening [xx] Non-anxious presence [] Spiritual/emotional support [] Crisis/trauma care [] Spiritual counseling [] Bereavement support [] Provided bereavement packet [] Provided Bible/devotional materials [] Provided toy/stuffed animal, coloring book to patient or family member [] Provided Communion [] Anointing/Morrill [] Salvation [xx] Completed spiritual assessment [] Other: Impact on Illness or Injury [] Angry [] Fearful [] Anxious [] Often cries [] Exhaustion [] Unable to work [] Unable to attend hoahaoism [xx] Unable to walk/stand [xx] Unable to read [xx] Unable to drive [] Unable to eat/drink [] Unable to sleep [xx] Unable to be with family [] Patient intubated [] Other: Summary Patient expects to be discharged in day or two and will go to live at [facility]. She is content with this arrangement. Time spent with patient 5 minutes
[2021-07-13] MEDS: midodrine 5 mg TABLET 10 MG PO ×2 (15:24→20:34)
[2021-07-13 17:34] LABS: Glucose Point of Care 118 mg/dL (70-110)
[2021-07-13] MEDS: folic acid 1 mg Tablet 2 MG PO (20:34)
[2021-07-13] MEDS: atorvastatin 40 mg Tablet 80 MG PO (20:34)
[2021-07-13 20:42] LABS: Glucose Point of Care 160 mg/dL (70-110)
[2021-07-14] VITALS (10 sets, daily range): BP systolic 101–138; BP diastolic 56–80; PULSE 90–111; RESP 16–17; TEMP 36.4–36.8; O2SAT 94–98
[2021-07-14] MEDS: levothyroxine 200 mcg Tablet PO (05:18)
[2021-07-14] MEDS: levothyroxine 25 mcg Tablet PO (05:18)
[2021-07-14 06:40] LABS: Glucose Point of Care 118 mg/dL (70-110)
[2021-07-14] MEDS: bumetanide 1 mg Tablet 2 MG PO (08:27)
[2021-07-14] MEDS: gabapentin 100 mg Capsule PO ×2 (08:27→21:15)
[2021-07-14] MEDS: citalopram 20 mg Tablet 10 MG PO (08:28)
[2021-07-14] MEDS: midodrine 5 mg TABLET 10 MG PO ×3 (08:28→21:15)
[2021-07-14] MEDS: pantoprazole DR 40 mg Tablet PO (08:28)
[2021-07-14] MEDS: clopidogrel 75 mg Tablet PO (08:28)
[2021-07-14] MEDS: fluconazole 100 mg Tablet 200 MG PO (08:28)
[2021-07-14] MEDS: ondansetron 2 mg/ML SDV 2 mL 4 MG IVP (08:46)
[2021-07-14] MEDS: phenytoin ER 100 mg Capsule 200 MG PO ×2 (10:32→21:14)
[2021-07-14] MEDS: calcitriol 0.25 mcg Capsule PO (10:34)
[2021-07-14 11:25] LABS: Basophils # 0.1 10^3/uL (0.0-0.1); Basophils % 0.7 %; Eosinophils # 0.4 10^3/uL (0.0-0.8); Eosinophils % 4.9 %; Hematocrit 28.6 % (37.0-47.0); Hemoglobin 8.5 g/dL (11.5-15.3); Lymphocytes # 1.7 10^3/uL (0.8-4.8); Lymphocytes % 23.2 %; Mean Corpuscular HGB Conc 29.7 g/dL (30.0-36.0); Mean Corpuscular Hemoglobin 30.1 pg (28.0-34.0); Mean Corpuscular Volume 101.4 fl (81-99); Mean Platelet Volume 11.2 fL (7.4-10.4); Monocytes # 0.8 10^3/uL (0.2-0.9); Monocytes % 10.8 %; Neutrophils # 4.27 10^3/uL (1.8-7.7); Neutrophils % 59.6 %; Nucleated Red Blood Cells # 0.1 /100WBC; Nucleated Red Blood Cells % 0.7 %; Platelet Count 132 10^3/cmm (130-400); Red Blood Count 2.82 10^6/uL (4.1-5.3); Red Cell Distribution Width 17.2 % (12.1-15.1); White Blood Count 7.2 10^3/uL (4.0-10.0)
[2021-07-14 11:32] LABS: Glucose Point of Care 158 mg/dL (70-110)
[2021-07-14 11:49] LABS: Alanine Aminotransferase < 5 U/L (0-33); Albumin Level 3.1 g/dL (3.5-5.2); Alkaline Phosphatase 161 IU/L (35-105); Anion Gap 20.3 (5-19); Aspartate Amino Transferase 16 U/L (0-32); Blood Urea Nitrogen 48 mg/dL (8-23); Calcium 7.7 mg/dL (8.5-10.5); Carbon Dioxide 22 mmol/L (22-29); Chloride 97 mmol/L (98-107); Creatinine Clr Calc Pharmacy 23.4993; Ferritin 533 ng/mL (15-150); Globulin 2.7 g/dL (1.3-4.6); Glucose 139 mg/dL (65-115); Iron 96 ug/dL (37-145); Magnesium 1.8 mg/dL (1.7-2.3); Osmolality Calculated 295 mOsm/kg (285-295); Percent Saturation 55.4 % (20-50); Potassium 4.3 mmol/L (3.5-5.1); Sodium 135 mmol/L (136-145); Total Bilirubin 0.4 mg/dL (0.15-1.2); Total Iron Binding Capacity 173 mcg/dl; Total Protein 5.8 g/dL (6.6-8.7); Unsaturated Iron Binding 77 ug/dL (112-347)
--- NOTE | 2021-07-14 12:09 | PM.PN ---
Subjective Subjective: Interval history: Seen this morning. Patient was awake alert oriented x3. She denied any overnight complaints or any issues this morning. Denies chest pain, shortness of breath, abdominal pain. Urine output overnight has been 180 cc. Yesterday it was 150 cc. She is getting Bumex 2 mg daily. Patient denies any nausea or vomiting. Discussed with Dr. Jo this morning. We will stop the aspirin and start patient back on warfarin. HIT panel is still pending. Then discussed with nephrology regarding her decreased urine output. Advised to hold off on warfarin for now in case patient needs to have a dialysis catheter placed again. Platelet count did improve to 132. I restarted aspirin starting tomorrow and stop the warfarin again. Also discussed with patient regarding LifeVest and she is interested to have it placed. Vitals/I&O/Wt Last Vital Signs Temp 98.1 F 07/14/21 11:15 Pulse 107 H 07/14/21 11:15 Resp 16 07/14/21 11:15 BP 138/80 07/14/21 11:15 Pulse Ox 97 07/14/21 11:15 07/13/21 07/14/21 07/14/21 22:59 06:59 14:59 Intake Total 220 / 220 200 / 420 120 / 120 Output Total 230 / 230 100 / 330 Balance -10 / -10 100 / 90 120 / 120 Weight last 48 hrs Weight 152.588 kg Weight 153.314 kg Physical Exam Narrative: EXAM NARRATIVE: General: Alert oriented x3, patient seen laying in bed appearing comfortable at this time but looks severely deconditioned and weak. Appears euvolemic today. HEENT: Normocephalic, atraumatic, EOMI, breathing nasal cannula 2 L. Saturating 100%. Cardio: Irregularly irregular normal S1-S2, no gross murmurs., Groin sites appear okay with no fluctuance or evidence of hematoma. Respiratory: Diminished bilateral air entry overall with no crackles wheezes or rhonchi present. GI: Abdomen soft, nontender, nondistended, bowel sounds +, obese rounded abdomen Behavior: Appropriate and cooperative, appears tired however. Extremities: 1+ edema bilateral lower extremities (Chronic). Chronic venous stasis changes present, no cyanosis present. Nonfocal neuro exam. Urinary Catheter Management^: Acevedo: Cath Placed During This Visit: no Reason for Continuing Indwelling Catheter: Acute Urinary Retention or Obstruction Data : 07/14/21 10:51 07/14/21 10:51 A&P Assessment and plan (1) Acute renal failure: Status: Acute (2) Acute renal failure superimposed on stage 3 chronic kidney disease: Status: Acute (3) CKD (chronic kidney disease): Status: Acute (4) Acute on chronic congestive heart failure: Status: Acute Qualifiers: Heart failure type: systolic Qualified Code(s): I50.23 - Acute on chronic systolic (congestive) heart failure (5) Atrial fibrillation with RVR: Status: Acute (6) Urine retention: Status: Acute (7) Orthostatic hypotension: Status: Acute (8) Atherosclerotic heart disease of [place] coronary artery with unstable angina pectoris: Status: Chronic Qualifiers: [place] vs. transplanted heart: [place] heart Qualified Code(s): I25.110 - Atherosclerotic heart disease of [place] coronary artery with unstable angina pectoris (9) Venous stasis: Status: Chronic (10) Dyslipidemia: Status: Chronic (11) Diabetes: Status: Acute Qualifiers: Chronic kidney disease stage: stage 3 (moderate) Chronic kidney disease stage 3 subtype: stage 3b (GFR 30-44) Diabetes mellitus complication detail: with chronic kidney disease Diabetes mellitus complication status: with kidney complications Diabetes mellitus [facility] insulin use: with ferry terminal agent use Diabetes mellitus type: type 2 Qualified Code(s): E11.22 - Type 2 diabetes mellitus with diabetic chronic kidney disease; N18.32 - Chronic kidney disease, stage 3b; Z79.4 - watermelon inspector (current) use of insulin (12) Status post insertion of drug-eluting stent into left anterior descending (LAD) artery: Status: Acute (13) Warfarin-induced coagulopathy: Status: Acute Additional A&P Information #Altered Mental Status - resolved #Acute on chronic congestive heart failure 2/2 renal failure -resolved #Acute renal failure on CKD stage 3, etiology multifactorial -stable #Chronic venous statis #Orthostatic hypotension, on midodrine #DLD #UTI, [place] grew. #Atrial fibrillation, on warfarin - held warfarin for now #CAD s/p stent (recent 07/02/2021) #HTN #Hypothyroidism #DM #PVD #Thrombocytopenia #Generalized deconditioning and debilitated state -UTI resolved. Antibiotics were deescalated. Was treated for yeast in urine with fluconazole since 07/10/2021. Will complete 7 days total. - Nephrology following. Did require dialysis initially but now has been on oral diuretics. There was an error in yesterday's note patient did not have 650 urine output. Urine output was 150 cc. And last night it has been 180 cc. Generally patient appears euvolemic and not fluid overloaded on exam today. Discussed with nephrology and we will give her total of 1 L fluid at 60 cc/h normal saline to see if she responds and increases her urine output. Continue to follow nephrology [place] [address]. Echo showed EF 20-25% similar to prior recent study. Had recent stent. Discussed with cardiology. Will continue aspirin, plavix for now. Warfarin was held initially due to bleeding from catheter site. Patient also required FFP, vitamin K's to reverse warfarin induced coagulopathy. She also required blood transfusion with 2 units due to bleeding. I previously discussed with cardiology to keep aspirin and Plavix on board and discontinue warfarin. Patient will eventually need to be restarted on warfarin and aspirin will need to be tapered off. Continue atorvastatin. Spironalactone was also held initially at admission due to requirement of pressors. -Discussed with Dr. Jo at length today over the phone. Aspirin needs to be stopped and warfarin needs to be restarted. However after discussing with nephrology we might be heading back towards dialysis and therefore warfarin will not be restarted today due to risk of bleeding with higher INR. Will give patient fluid challenge and see how she does. I would restart aspirin starting tomorrow. We will keep on aspirin and Plavix for now. I will add Lovenox 40 daily DVT prophylaxis dose for now. -HIT panel is pending. - Venous dopplers ruled out DVT. Arterial Dopplers also did not show any gross blockages. Femoral area was unable to be evaluated due to catheter in place when study was done. - Continue levothryoxine 250 mcg daily, sliding scale, lantus. - Cardiology and nephrology following, appreciate recs. - Continue phenytoin - Continue midodrine. -Patient has had heparin previous admission July 02 and platelets have dropped to greater than 50% since then. Thrombocytopenia could be secondary to UTI/sepsis or acute blood loss. Patient is currently not receiving any heparin products. We will check HIT panel for completion. Would like to monitor platelets. Pt no longer bleeding. HIT panel is pending. ?Continue Bumex 2 mg daily -Blood pressure was soft 90s over 50s. Home midodrine was restarted at 10 3 times daily and albumin was added. Blood pressure in good range today. We will stop albumin after 24 hours. PT has recommended fpc. Awaiting placement. Code status: Full Code DVT PPX: warfarin held. Will do SCD for now. Lovenox 40 daily for now. Prognosis guarded. Attestations Medical Necessity Statement*: >48 hours Coding Level of Care Code Acute Director Content Marketing for Chg Fwd Diagnoses Acute renal failure N17.9 Acute renal failure superimposed on stage 3 chronic kidney disease N17.9; N18.30 CKD (chronic kidney disease) N18.9 Acute on chronic congestive heart failure I50.23 Heart failure type: systolic Atrial fibrillation with RVR I48.91 Urine retention R33.9 Orthostatic hypotension I95.1 Atherosclerotic heart disease of [place] coronary artery with unstable angina pectoris I25.110 [place] vs. transplanted heart: [place] heart Venous stasis I87.8 Dyslipidemia E78.5 Diabetes E11.22; N18.32; Z79.4 Chronic kidney disease stage: stage 3 (moderate) Chronic kidney disease stage 3 subtype: stage 3b (GFR 30-44) Diabetes mellitus complication detail: with chronic kidney disease Diabetes mellitus complication status: with kidney complications Diabetes mellitus ferry terminal agent insulin use: with ferry terminal agent use Diabetes mellitus type: type 2 Status post insertion of drug-eluting stent into left anterior descending (LAD) artery Z95.5 Warfarin-induced coagulopathy D68.32; T45.515A
--- NOTE | 2021-07-14 12:20 | PC.SOCIAL ---
IMM Update pg 2 of IMM updated and reviewed w/ patient. Copy provided.
[2021-07-14] MEDS: sodium chloride 0.9% 1,000 ML 60 ML IV (12:32)
[2021-07-14] MEDS: enoxaparin 40 mg/0.4 mL Syringe SUBCUT (12:32)
[2021-07-14] MEDS: metoclopramide 5 mg/mL SDV 2 mL 10 MG IVP (12:32)
[2021-07-14] MEDS: insulin lispro 100 unit/1 mL SUBCUT (12:33)
[2021-07-14] MEDS: thiamine 100 mg Tablet PO (16:44)
[2021-07-14 17:47] LABS: Glucose Point of Care 136 mg/dL (70-110)
[2021-07-14 21:12] LABS: Glucose Point of Care 131 mg/dL (70-110)
[2021-07-14] MEDS: atorvastatin 40 mg Tablet 80 MG PO (21:14)
[2021-07-14] MEDS: folic acid 1 mg Tablet 2 MG PO (21:15)
[2021-07-15] VITALS (23 sets, daily range): BP systolic 91–140; BP diastolic 61–88; PULSE 68–118; RESP 16–28; TEMP 36.1–37; O2SAT 93–99
--- NOTE | 2021-07-15 | SCC_ITS ---
Procedure Done: 1. Placement of 16 Welsh 23 cm long tunneled AshSplit hemodialysis catheter in the right internal jugular vein 2. Fluoroscopic guidance and interpretation for placement of catheter 3. Ultrasound guidance to access the right internal jugular vein 149.8 seconds of fluoroscopic guidance, for a cumulative dose of 69.62 mGy, was provided to Dr. Corrales by the radiology department. C-arm images of the chest were saved for the patient's permanent record. MAURI
[2021-07-15 06:31] LABS: Glucose Point of Care 115 mg/dL (70-110)
[2021-07-15] MEDS: gabapentin 100 mg Capsule PO (08:37)
[2021-07-15] MEDS: citalopram 20 mg Tablet 10 MG PO (08:37)
[2021-07-15] MEDS: bumetanide 1 mg Tablet 2 MG PO (08:37)
[2021-07-15] MEDS: calcitriol 0.25 mcg Capsule PO (08:38)
[2021-07-15] MEDS: phenytoin ER 100 mg Capsule 200 MG PO (08:38)
[2021-07-15] MEDS: midodrine 5 mg TABLET 10 MG PO (08:38)
[2021-07-15] MEDS: fluconazole 100 mg Tablet 200 MG PO (08:38)
[2021-07-15] MEDS: thiamine 100 mg Tablet PO (08:38)
[2021-07-15] MEDS: pantoprazole DR 40 mg Tablet PO (08:38)
[2021-07-15] MEDS: aspirin 81 mg EC Tablet PO (08:38)
[2021-07-15] MEDS: clopidogrel 75 mg Tablet PO (08:38)
--- NOTE | 2021-07-15 09:00 | PM.PN ---
Subjective Subjective: Interval history: Seen this AM. Patient states she is having trouble breathing. Urine output overnight 50 cc only. obtained ABG 7.27/58/92. Placed on Bipap. Will re-assess later. Ordered chest xray, its pending. Discussed with nephro. Plan to dialyze later on today. Will request for dialysis catheter placement. Vitals/I&O/Wt Last Vital Signs Temp 98.2 F 07/15/21 13:52 Pulse 95 07/15/21 14:00 Resp 20 H 07/15/21 13:52 BP 118/82 07/15/21 13:52 Pulse Ox 98 07/15/21 14:00 07/15/21 07/15/21 07/15/21 06:59 14:59 22:59 Intake Total 1140 / 1420 60 / 60 Output Total 50 / 125 Balance 1090 / 1295 60 / 60 Weight last 48 hrs Weight 153.949 kg Weight 152.588 kg Physical Exam Narrative: EXAM NARRATIVE: General: Alert oriented x1, patient seen laying in bed appearing comfortable at this time but looks severely deconditioned and weak. Appears fluid overloaded today. She is complaining of having trouble breathing but does not appear in distress. HEENT: Normocephalic, atraumatic, EOMI, breathing nasal cannula 2 L. Saturating 98% (pulse ox checked bedside). Cardio: Irregularly irregular normal S1-S2, no gross murmurs., Groin sites appear okay with no fluctuance or evidence of hematoma. Respiratory: Diminished bilateral air entry overall with no crackles wheezes or rhonchi present. Breath sounds very diminished at bases. GI: Abdomen soft, nontender, nondistended, bowel sounds +, obese rounded abdomen Behavior: Appears lethargic today stating she is having trouble breathing, no acute distress. Extremities: 1+ edema bilateral lower extremities (Chronic). Chronic venous stasis changes present, no cyanosis present. Neuro exam: cn intact. She is following commands. face symmetrical. strength decreased overall 3/5 upper extremities b/l. lower extremities 2/5. She has severe deconditioning. no focal deficits. gait unassessed. Urinary Catheter Management^: Acevedo: Cath Placed During This Visit: no Reason for Continuing Indwelling Catheter: Acute Urinary Retention or Obstruction Data : 07/15/21 10:01 07/15/21 10:01 A&P Assessment and plan (1) Acute renal failure: Status: Acute (2) Acute renal failure superimposed on stage 3 chronic kidney disease: Status: Acute (3) CKD (chronic kidney disease): Status: Acute (4) Acute on chronic congestive heart failure: Status: Acute Qualifiers: Heart failure type: systolic Qualified Code(s): I50.23 - Acute on chronic systolic (congestive) heart failure (5) Atrial fibrillation with RVR: Status: Acute (6) Urine retention: Status: Acute (7) Orthostatic hypotension: Status: Acute (8) Atherosclerotic heart disease of [place] coronary artery with unstable angina pectoris: Status: Chronic Qualifiers: [place] vs. 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 Diabetes mellitus type: type 2 Qualified Code(s): E11.22 - Type 2 diabetes mellitus with diabetic chronic kidney disease; N18.32 - Chronic kidney disease, stage 3b; Z79.4 - long term (current) use of insulin (12) Status post insertion of drug-eluting stent into left anterior descending (LAD) artery: Status: Acute (13) Warfarin-induced coagulopathy: Status: Acute Additional A&P Information #Altered Mental Status - resolved #Acute on chronic congestive heart failure 2/2 renal failure -resolved #Acute renal failure on CKD stage 3, etiology multifactorial - active issue #Chronic venous statis #Orthostatic hypotension, on midodrine #DLD #UTI, [place] grew. #Atrial fibrillation, on warfarin - held warfarin for now #CAD s/p stent (recent 07/02/2021) #HTN #Hypothyroidism #DM #PVD #Thrombocytopenia #Generalized deconditioning and debilitated state -UTI resolved. Antibiotics were deescalated. Was treated for yeast in urine with fluconazole since 07/10/2021. Will complete 7 days total. - Nephrology following. Did require dialysis initially but now has been on oral diuretics. Failed fluid challenge. Urine output overnight [address] dialysis catheter today and plan to dialyze[place] [address] at admission. Echo showed EF 20-25% similar to prior recent study. Had recent stent. Discussed with cardiology. Will continue aspirin, plavix for now. Warfarin was held initially due to bleeding from catheter site. Patient also required FFP, vitamin K's to reverse warfarin induced coagulopathy. She also required blood transfusion with 2 units due to bleeding. I previously discussed with cardiology to keep aspirin and Plavix on board and discontinue warfarin. Patient will eventually need to be restarted on warfarin and aspirin will need to be tapered off. Continue atorvastatin. Spironalactone was also held initially at admission due to requirement of pressors. -COnsult surgery for permacath placement. Pt is high risk for bleed. She is on asa and plavix. -HIT panel is pending. Platelets better. Low suspicion for HIT. - Venous dopplers ruled out DVT. Arterial Dopplers also did not show any gross blockages. Femoral area was unable to be evaluated due to catheter in place when study was done. - Continue levothryoxine 250 mcg daily, sliding scale, lantus. - Cardiology and nephrology following, appreciate recs. - Continue phenytoin - Continue midodrine. ?Continue Bumex 2 mg daily -Blood pressure stable. Albumin d/c. midodrine to be continued. PT has recommended long-term. Awaiting placement. Code status: Full Code DVT PPX: warfarin held. Will do SCD for now. Lovenox held for dialysis catheter. Prognosis guarded. Son updated over the phone in detail. Attestations Medical Necessity Statement*: > 48 hours Coding Level of Care Code Acute It Consulting Director for g Fwd Diagnoses Acute renal failure N17.9 Acute renal failure superimposed on stage 3 chronic kidney disease N17.9; N18.30 CKD (chronic kidney disease) N18.9 Acute on chronic congestive heart failure I50.23 Heart failure type: systolic Atrial fibrillation with RVR I48.91 Urine retention R33.9 Orthostatic hypotension I95.1 Atherosclerotic heart disease of [place] coronary artery with unstable angina pectoris I25.110 [place] vs. transplanted heart: [place] heart Venous stasis I87.8 Dyslipidemia E78.5 Diabetes E11.22; N18.32; Z79.4 Chronic kidney disease stage: stage 3 (moderate) Chronic kidney disease stage 3 subtype: stage 3b (GFR 30-44) Diabetes mellitus complication detail: with chronic kidney disease Diabetes mellitus complication status: with kidney complications Diabetes mellitus shelter insulin use: with shelter use Diabetes mellitus type: type 2 Status post insertion of drug-eluting stent into left anterior descending (LAD) artery Z95.5 Warfarin-induced coagulopathy D68.32; T45.515A
--- NOTE | 2021-07-15 09:49 | XRR_ITS ---
PROCEDURE INFORMATION: Exam: XR Chest Exam date and time: 07/15/2021 9:49 AM Age: 75 years old Clinical indication: Shortness of breath TECHNIQUE: Imaging protocol: XR of the chest. Views: 1 view. COMPARISON: CR (CHEST, ) 07/05/2021 9:06 PM FINDINGS: Lungs: There is near complete opacification of the left hemithorax with partial aeration of the left apex. This has worsened since previous study and consistent with enlarging left pleural effusion and worsening atelectasis/consolidation. There also increasing diffuse infiltrates in the right lung. Pleural spaces: See Lungs finding. Heart/Mediastinum: The cardiac silhouette is obscured by the left lung opacity. Bones/joints: Unremarkable. XR/XR chest 1V portable [id number] IMPRESSION: 1. Near complete opacification of the left hemithorax due to enlarging pleural effusion and worsening pulmonary consolidation/atelectasis. 2. There also worsening diffuse patchy hazy infiltrates in the right lung.
[2021-07-15 09:51] LABS: ABG PCO2 57.1 mmHg (35-45); ABG PH Result 7.28 (7.35-7.45); Alveolar-Arterial Oxygen Gradi 6.6 mmHg (5-10); Arterial Blood Gas Hematocrit 26.4 % (37-47); Base Excess ABG -0.5 mmol/L (-2.0-2.0); Blood Gas Allen Test Pos; Blood Gas Operator Identificat MONRO; Blood Gas Sample Site Radial, right; Blood Gas Sample Type Arterial; Carboxyhemoglobin 1.4 %THgb (0.4-20.1); HCO3 ABG 26.7 mmol/L (22-26); HGB O2 Sat 96.2 % (95-100); Ionized Calcium Level - ABG 1.2 mmol/L (1.1-1.4); Methemoglobin 0.4 % (0.4-1.5); Oxygen Device NC; PO2 ABG 94.5 mmHg (80.0-100.0); Potassium Level - ABG 4.4 mmol/L (3.5-5.0); Total Hemoglobin 8.6 g/dL (12-16)
[2021-07-15 10:38] LABS: Basophils # 0.1 10^3/uL (0.0-0.1); Basophils % 0.9 %; Eosinophils # 0.1 10^3/uL (0.0-0.8); Eosinophils % 1.5 %; Hematocrit 28.2 % (37.0-47.0); Hemoglobin 8.7 g/dL (11.5-15.3); Lymphocytes # 1.7 10^3/uL (0.8-4.8); Lymphocytes % 24.3 %; Mean Corpuscular HGB Conc 30.9 g/dL (30.0-36.0); Mean Corpuscular Hemoglobin 30.9 pg (28.0-34.0); Mean Platelet Volume 11.3 fL (7.4-10.4); Monocytes # 0.6 10^3/uL (0.2-0.9); Monocytes % 8.9 %; Neutrophils # 4.35 10^3/uL (1.8-7.7); Neutrophils % 63.1 %; Nucleated Red Blood Cells # 0.1 /100WBC; Nucleated Red Blood Cells % 1.5 %; Platelet Count 142 10^3/cmm (130-400); Red Blood Count 2.82 10^6/uL (4.1-5.3); Red Cell Distribution Width 17.2 % (12.1-15.1); White Blood Count 6.9 10^3/uL (4.0-10.0)
[2021-07-15 10:48] LABS: Blood Urea Nitrogen 49 mg/dL (8-23); Calcium 7.7 mg/dL (8.5-10.5); Carbon Dioxide 22 mmol/L (22-29); Chloride 99 mmol/L (98-107); Glucose 106 mg/dL (65-115); Magnesium 1.8 mg/dL (1.7-2.3); Osmolality Calculated 299 mOsm/kg (285-295); Phosphorus 5.1 mg/dL (2.5-4.5); Sodium 138 mmol/L (136-145)
[2021-07-15 10:59] LABS: Anion Gap 21.5 (5-19); Potassium 4.5 mmol/L (3.5-5.1)
[2021-07-15 11:19] LABS: Glucose Point of Care 108 mg/dL (70-110)
--- NOTE | 2021-07-15 11:43 | P.PN_ITS ---
Subjective Subjective: Interval history: Ms Lee is minimally interactive today. Respiratory acidosis noted and she is back on BiPAP. Urine output is now very poor. No other overt new uremic symptoms. Medications: Reviewed: Yes Medication Review Details: Generic Name Dose Route Start Last Admin Trade Name Susan PRN Reason Stop Dose Admin Aspirin 81 mg 07/06/21 08:00 07/12/21 09:01 Aspirin 81 Mg Ec Tablet PO 81 mg DAILY@08 ARMINDA Administration Atorvastatin Calci um 80 mg 07/06/21 21:00 07/11/21 21:48 Atorvastatin 40 Mg Tablet PO 80 mg BEDTIME ARMINDA Administration Calcitriol 0.25 mcg 07/06/21 08:00 07/12/21 09:01 Calcitriol 0.25 Mcg Capsule PO 0.25 mcg DAILY@0800 ARMINDA Administration Citalopram Hydrobr omide 10 mg 07/06/21 09:00 07/12/21 09:02 Citalopram 20 Mg Tablet PO 10 mg DAILY ARMINDA Administration Clopidogrel Bisulf ate 75 mg 07/06/21 08:00 07/12/21 09:01 Clopidogrel 75 M g Tablet PO 75 mg DAILY@0800 ARMINDA Administration Fluconazole 200 mg 07/10/21 09:00 07/12/21 09:01 Fluconazole 100 Mg Tablet PO 200 mg DAILY ARMINDA Administration Folic Acid 2 mg 07/11/21 20:55 07/11/21 21:49 Folic Acid 1 Mg Tablet PO 2 mg DAILY@20 ARMINDA Administration Gabapentin 100 mg 07/06/21 08:00 07/12/21 09:31 Gabapentin 100 M g Capsule PO Not Given BID@799,1999 [facility] Insulin Human Lisp ro 0 unit 07/06/21 08:00 07/12/21 07:43 Insulin Lispro 1 00 Unit/1 Ml SUBCUT Not Given WM&BEDTIME [facility] Protocol Levothyroxine Sodi um 25 mcg 07/06/21 06:00 07/12/21 05:10 Levothyroxine 25 Mcg Tablet PO 25 mcg DAILY@06 ARMINDA Administration Levothyroxine Sodi um 200 mcg 07/06/21 06:00 07/12/21 05:10 Levothyroxine 20 0 Mcg Tablet PO 200 mcg DAILY@06 ARMINDA Administration Ondansetron HCl 4 mg 07/08/21 09:16 07/10/21 08:14 Ondansetron 2 Mg /Ml Sdv 2 Ml IVP 4 mg Q6H PRN Administration NAUSEA AND VOMITI NG Pantoprazole Sodiu m 40 mg 07/06/21 08:00 07/12/21 09:[address] 40 Mg Tablet PO 40 mg DAILY@08 ARMINDA Administration Phenytoin 200 mg 07/06/21 08:00 07/12/21 09:01 Phenytoin Er 100 Mg Capsule PO 200 mg BID@08,20 ARMINDA Administration Vitals/I&O/Wt Last Vital Signs Temp 97.0 F L 07/15/21 08:00 Pulse 74 07/15/21 10:01 Resp 16 07/15/21 08:00 BP 139/82 07/15/21 09:51 Pulse Ox 97 07/15/21 10:01 07/14/21 07/15/21 07/15/21 22:59 06:59 14:59 Intake Total 60 / 280 1140 / 1420 Output Total 75 / 75 50 / 125 Balance -15 1090 / 1295 Weight last 48 hrs Weight 153.949 kg Weight 152.588 kg Physical Exam Narrative: EXAM NARRATIVE: Constitutional: Awake, comfortable HEENT: Wet mucosa, no jvp, non icteric Lungs: Bilaterally clear without discernible wheeze or rales in all lung zones CVS: S1 S2, no murmurs Abdo: Soft, BS ok Ext 4: 2-3+ edema, peripheral perfusion with no cyanosis Neurological: Grossly non-focal Urinary Catheter Management^: Acevedo: Cath Placed During This Visit: no Reason for Continuing Indwelling Catheter: Acute Urinary Retention or Obstruction Data : 07/15/21 10:01 07/15/21 10:01 A&P Additional A&P Information 1. Acute renal failure Overt renal failure over the last few days despite ivf bolus. ? cardiorenal syndrome, unclear etiology Will need to initiate dialysis tomorrow with temp line placed in the am Strict I's and O's Dose medication for GFR less than 15 on dialysis 2. Chemistry resp acidosis, back on bipap, otherwise lytes look ok 3. Hemodynamics appear stable now Acute renal issues have resolved, will follow peripherally at this time, thank you Exam and interview performed with aid of bedside RN using telemedicine Time spent 20 min inc > 50% of time in face to face counseling Corbin Sánchez MD [facility] [phone] Attestations Medical Necessity Statement*: eval for TIFFANY Coding Level of Care Code Acute Fish Agent for Sosa Bates
--- NOTE | 2021-07-15 11:51 | CTR_ITS ---
PROCEDURE INFORMATION: Exam: CT Chest Without Contrast; Diagnostic Exam date and time: 07/15/2021 11:51 AM Age: 75 years old Clinical indication: Shortness of breath TECHNIQUE: Imaging protocol: Diagnostic computed tomography of the chest without contrast. Radiation optimization: All CT scans at this facility use at least one of these dose optimization techniques: automated exposure control; mA and/or kV adjustment per patient size (includes targeted exams where dose is matched to clinical indication); or iterative reconstruction. COMPARISON: CT chest abd pel wo con 01/27/2021 7:29 PM RADIATION DOSE METRICS: Total DLP (mGy-cm): 822.76 FINDINGS: Lungs: There is prominent left lung atelectasis with partial aeration of the left upper lobe. There is compressive atelectasis in the right base. There is a benign calcified granuloma in the left lung base. There are multiple benign calcified lymph nodes in the left pulmonary hilum. Pleural spaces: Large bilateral pleural effusions, larger on the left side. Heart: The heart is enlarged. There is calcification of the coronary arteries. Aorta: There is calcification of the aorta. There is no thoracic aortic aneurysm. Lymph nodes: See Lungs finding. Bones/joints: Chronic degenerative changes are present in the thoracic spine with joint space narrowing sclerosis and osteophytes. No acute bony abnormality. Soft tissues: Unremarkable. CT/CT chest wo con [id number] IMPRESSION: 1. Large bilateral pleural effusions especially on the left side. 2. Prominent left lung atelectasis with partial aeration of the left upper lobe. 3. Compressive atelectasis in the right base. 4. Cardiomegaly. Coronary artery calcification. 5. Benign calcified granulomas disease.
--- NOTE | 2021-07-15 14:04 | ANES.PREANE2 ---
Pre-Anesthetic Assessment Pre-Anesthetic Assessment: Height/Weight: Height 1.7 m Weight 153.949 kg Temp Pulse Resp BP Pulse Ox 97.0 F L 68 18 114/68 94 07/15/21 08:00 07/15/21 12:20 07/15/21 11:51 07/15/21 11:51 07/15/21 12:20 Preop Diagnosis: renal failure Proposed Procedure: Operation Date: 07/15/21 14:30 Proposed Procedures p Dialysis Catheter Insertion(Not Applicable) - Hesham Corrales MD Was Beta Arsalan taken within 24 hours: N/A Was Clonidine taken within 24 hours: N/A Social: Social History: No alcohol and No tobacco Exam: Additional Exam Findings (including area of procedure): Very sedate--difficult to arouse, on BiPAP, irregular Airway: Submandibular: WNL Cervical ROM: WNL MP: 2 Dentition: False CV/HEM: CV/HEM: Afib, Anemia, Angina (Unstable), CAD (stents), CHF, HTN and MO : : Chronic renal Insufficiency Comments: ARF Metabolic: Metabolic: Morbid obesity Anesthetic Plan: ASA status: 3E Anesthesia: MAC Risk of > 500 ml blood loss (7ml/kg in children): No Meds/Allergies Current Medications: Current Medications Generic Name Dose Route Start Last Admin Trade Name Freq PRN Reason Stop Dose Admin Aspirin 81 mg 07/15/21 09:00 07/15/21 08:38 Aspirin 81 Mg Ec Tablet PO 81 mg DAILY ARMINDA Administration Atorvastatin Calci um 80 mg 07/06/21 21:00 07/14/21 21:14 Atorvastatin 40 Mg Tablet PO 80 mg BEDTIME ARMINDA Administration Bumetanide 2 mg 07/13/21 09:00 07/15/21 08:37 Bumetanide 1 Mg Tablet PO 2 mg DAILY ARMINDA Administration Calcitriol 0.25 mcg 07/06/21 08:00 07/15/21 08:38 Calcitriol 0.25 Mcg Capsule PO 0.25 mcg DAILY@0800 ARMINDA Administration Citalopram Hydrobr omide 10 mg 07/06/21 09:00 07/15/21 08:37 Citalopram 20 Mg Tablet PO 10 mg DAILY ARMINDA Administration Clopidogrel Bisulf ate 75 mg 07/06/21 08:00 07/15/21 08:38 Clopidogrel 75 M g Tablet PO 75 mg DAILY@0800 ARMINDA Administration Enoxaparin Sodium 30 mg 07/15/21 12:00 07/15/21 13:43 Enoxaparin 30 Mg /0.3 Ml Syringe SUBCUT Not Given Q24H [facility] Fluconazole 200 mg 07/10/21 09:00 07/15/21 08:38 Fluconazole 100 Mg Tablet PO 200 mg DAILY [facility] Administration Folic Acid 2 mg 07/11/21 20:55 07/14/21 21:15 Folic Acid 1 Mg Tablet PO 2 mg DAILY@20 [facility] Administration Gabapentin 100 mg 07/06/21 08:00 07/15/21 08:37 Gabapentin 100 M g Capsule PO 100 mg BID@ [facility] Administration Albumin Human 25 gm in 100 mls @ 60 mls/hr 07/13/21 12:30 07/15/21 02:44 Albumin IV 07/16/21 12:29 Infused Q12H [facility] Infusion Insulin Human Lisp ro 0 unit 07/06/21 08:00 07/15/21 13:43 Insulin Lispro 1 00 Unit/1 Ml SUBCUT Not Given WM&BEDTIME [facility] Protocol Levothyroxine Sodi um 25 mcg 07/06/21 06:00 07/15/21 07:41 Levothyroxine 25 Mcg Tablet PO Not Given DAILY@06 [facility] Levothyroxine Sodi um 200 mcg 07/06/21 06:00 07/15/21 07:41 Levothyroxine 20 0 Mcg Tablet PO Not Given DAILY@06 [facility] Midodrine 10 mg 07/13/21 15:00 07/15/21 08:38 Midodrine 5 Mg T ablet PO 10 mg TID [facility] Administration Ondansetron HCl 4 mg 07/08/21 09:16 07/14/21 08:46 Ondansetron 2 Mg /Ml Sdv 2 Ml IVP 4 mg Q6H PRN Administration NAUSEA AND VOMITI NG Pantoprazole Sodiu m 40 mg 07/06/21 08:00 07/15/21 08:[address] 40 Mg Tablet PO 40 mg DAILY@08 [facility] Administration Phenytoin 200 mg 07/06/21 08:00 07/15/21 08:38 Phenytoin Er 100 Mg Capsule PO 200 mg BID@08,20 [facility] Administration Thiamine Mononitra te 100 mg 07/14/21 12:00 07/15/21 08:38 Thiamine 100 Mg Tablet PO 100 mg DAILY ARMINDA Administration PFSH Anesthesia PFSH: Medical History (Updated 07/14/21 @ 13:51 by Citlali Perry MD) Acute hypercapnic respiratory failure Afib Anemia Atrial fibrillation with RVR CAD (coronary artery disease) Chronic anticoagulation Eliquis CKD (chronic kidney disease) Congestive heart failure Diabetes Dyslipidemia Hematoma of left flank HTN (hypertension) Morbid obesity Morbid obesity NSTEMI (non-ST elevated myocardial infarction) PVD (peripheral vascular disease) 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) Status post insertion of drug-eluting stent into left anterior descending (LAD) artery Urine retention Venous stasis Surgical History History of ankle surgery History of cataract surgery History of cholecystectomy History of heart artery stent History of umbilical hernia repair S/P hemodialysis catheter insertion (11/22/20) Right internal jugular vein d/c 12/25/20 Family History Other Cancer Diabetes Social History Smoking and tobacco status: never smoked Alcohol intake: never Marital status: / Current occupational status: retired History of recent travel: No Data Anesthesia CBC & Chem 7: 07/15/21 10:01 07/15/21 10:01 Other Labs: Laboratory Results - last 48 hr 07/13/21 07/13/21 07/14/21 17:02 20:40 06:24 WBC RBC Hgb Hct MCV MCH MCHC RDW Plt Count MPV Neut % (Auto) Lymph % (Auto) Coffey % (Auto) Eos % (Auto) Baso % (Auto) Neut # (Auto) Lymph # (Auto) Coffey # (Auto) Eos # (Auto) Baso # (Auto) Nucleated RBC % (auto) Nucleated RBCs # Specimen Type Sample Site ABG pH ABG pCO2 ABG pO2 ABG HCO3 ABG O2 Saturation ABG Base Excess Olvin Test A-a O2 Gradient Hematocrit Hgb O2 Saturation Carboxyhemoglobin Methemoglobin Total Hemoglobin Ionized Calcium O2 Delivery Device O2 Liters/Min FiO2 Bottle Labeler ID Sodium Potassium Chloride Carbon Dioxide Anion Gap BUN Creatinine GFR Calculation Glucose POC Glucose 118 H 160 H 118 H Calculated Osmolality Calcium Phosphorus Magnesium Iron TIBC % Saturation Unsat Iron Binding Ferritin Total Bilirubin AST ALT Alkaline Phosphatase Total Protein Albumin Globulin 07/14/21 07/14/21 07/14/21 10:51 10:51 10:51 WBC 7.2 RBC 2.82 L Hgb 8.5 L Hct 28.6 L MCV 101.4 H MCH 30.1 MCHC 29.7 L RDW 17.2 H Plt Count 132 MPV 11.2 H Neut % (Auto) 59.6 Lymph % (Auto) 23.2 Coffey % (Auto) 10.8 Eos % (Auto) 4.9 Baso % (Auto) 0.7 Neut # (Auto) 4.27 Lymph # (Auto) 1.7 Coffey # (Auto) 0.8 Eos # (Auto) 0.4 Baso # (Auto) 0.1 Nucleated RBC % (auto) 0.7 Nucleated RBCs # 0.1 Specimen Type Sample Site ABG pH ABG pCO2 ABG pO2 ABG HCO3 ABG O2 Saturation ABG Base Excess Olvin Test A-a O2 Gradient Hematocrit Hgb O2 Saturation Carboxyhemoglobin Methemoglobin Total Hemoglobin Ionized Calcium O2 Delivery Device O2 Liters/Min FiO2 Bottle Labeler ID Sodium Cancelled 135 L Potassium Cancelled 4.3 Chloride Cancelled 97 L Carbon Dioxide Cancelled 22 Anion Gap Cancelled 20.3 H BUN Cancelled 48 H Creatinine Cancelled 3.2 H GFR Calculation Cancelled Not Reportable Glucose Cancelled 139 H POC Glucose Calculated Osmolality Cancelled 295 Calcium Cancelled 7.7 L Phosphorus Magnesium Cancelled 1.8 Iron 96 TIBC 173 % Saturation 55.4 H Unsat Iron Binding 77 L Ferritin 533 H Total Bilirubin 0.4 AST 16 ALT < 5 Alkaline Phosphatase 161 H Total Protein 5.8 L Albumin 3.1 L Globulin 2.7 07/14/21 07/14/21 07/14/21 10:51 11:13 16:58 WBC RBC Hgb Hct MCV MCH MCHC RDW Plt Count MPV Neut % (Auto) Lymph % (Auto) Coffey % (Auto) Eos % (Auto) Baso % (Auto) Neut # (Auto) Lymph # (Auto) Coffey # (Auto) Eos # (Auto) Baso # (Auto) Nucleated RBC % (auto) Nucleated RBCs # Specimen Type Sample Site ABG pH ABG pCO2 ABG pO2 ABG HCO3 ABG O2 Saturation ABG Base Excess Olvin Test A-a O2 Gradient Hematocrit Hgb O2 Saturation Carboxyhemoglobin Methemoglobin Total Hemoglobin Ionized Calcium O2 Delivery Device O2 Liters/Min FiO2 Bottle Labeler ID Sodium Potassium Chloride Carbon Dioxide Anion Gap BUN Creatinine GFR Calculation Glucose POC Glucose 158 H 136 H Calculated Osmolality Calcium Phosphorus Magnesium Iron Cancelled TIBC Cancelled % Saturation Cancelled Unsat Iron Binding Cancelled Ferritin Cancelled Total Bilirubin AST ALT Alkaline Phosphatase Total Protein Albumin Globulin 07/14/21 07/15/21 07/15/21 21:09 06:24 09:40 WBC RBC Hgb Hct MCV MCH MCHC RDW Plt Count MPV Neut % (Auto) Lymph % (Auto) Coffey % (Auto) Eos % (Auto) Baso % (Auto) Neut # (Auto) Lymph # (Auto) Coffey # (Auto) Eos # (Auto) Baso # (Auto) Nucleated RBC % (auto) Nucleated RBCs # Specimen Type Arterial Sample Site Radial, right ABG pH 7.28 L ABG pCO2 57.1 H ABG pO2 94.5 ABG HCO3 26.7 H ABG O2 Saturation 98.0 ABG Base Excess -0.5 Olvin Test Pos A-a O2 Gradient 6.6 Hematocrit 26.4 L Hgb O2 Saturation 96.2 Carboxyhemoglobin 1.4 Methemoglobin 0.4 Total Hemoglobin 8.6 L Ionized Calcium 1.2 O2 Delivery Device Nc O2 Liters/Min 3.0 FiO2 30.0 Bottle Labeler ID Monro Sodium 138.0 Potassium 4.4 Chloride Carbon Dioxide Anion Gap BUN Creatinine GFR Calculation Glucose 107.0 POC Glucose 131 H 115 H Calculated Osmolality Calcium Phosphorus Magnesium Iron TIBC % Saturation Unsat Iron Binding Ferritin Total Bilirubin AST ALT Alkaline Phosphatase Total Protein Albumin Globulin 07/15/21 07/15/21 07/15/21 10:01 10:01 11:03 WBC 6.9 RBC 2.82 L Hgb 8.7 L Hct 28.2 L MCV 100.0 H MCH 30.9 MCHC 30.9 RDW 17.2 H Plt Count 142 MPV 11.3 H Neut % (Auto) 63.1 Lymph % (Auto) 24.3 Coffey % (Auto) 8.9 Eos % (Auto) 1.5 Baso % (Auto) 0.9 Neut # (Auto) 4.35 Lymph # (Auto) 1.7 Coffey # (Auto) 0.6 Eos # (Auto) 0.1 Baso # (Auto) 0.1 Nucleated RBC % (auto) 1.5 Nucleated RBCs # 0.1 Specimen Type Sample Site ABG pH ABG pCO2 ABG pO2 ABG HCO3 ABG O2 Saturation ABG Base Excess Olvin Test A-a O2 Gradient Hematocrit Hgb O2 Saturation Carboxyhemoglobin Methemoglobin Total Hemoglobin Ionized Calcium O2 Delivery Device O2 Liters/Min FiO2 Bottle Labeler ID Sodium 138 Potassium 4.5 Chloride 99 Carbon Dioxide 22 Anion Gap 21.5 H BUN 49 H Creatinine 3.9 H GFR Calculation Not Reportable Glucose 106 POC Glucose 108 Calculated Osmolality 299 H Calcium 7.7 L Phosphorus 5.1 H Magnesium 1.8 Iron TIBC % Saturation Unsat Iron Binding Ferritin Total Bilirubin AST ALT Alkaline Phosphatase Total Protein Albumin Globulin Cardiac Studies: Echocardiogram 06/14/21 Echocardiogram Limited Views 07/06/21 Echocardiogram Ultrasound 12/10/20 Sestamibi Stress Test (Cardiology) 06/17/21
--- NOTE | 2021-07-15 14:07 | PM.CONSULT ---
Providers/Reason For Consult Consulting Physician/Specialty*: General Surgery Dr. Corrales Reason for Consult*: Dialysis catheter Attending Physician: Citlali Perry MD Primary Care Provider: Pascual Kay MD History of Present Illness History of Present Illness Carole Lee is a 75 year old female on whom I had previously placed a dialysis catheter in November 2020. Patient had dialysis catheter placed in the femoral vein last month which was then removed but now due to worsening kidney function patient needs a new dialysis catheter. Patient is on BiPAP and is unable to communicate Review of Systems General: Reports: ROS unobtainable due to mental status Meds/Allergies Home Medications and Allergies Home Medications Medication Instructions Recorded Confirmed Last Taken Type clopidogrel 75 mg PO DAILY@0800 11/29/20 07/06/21 07/04/21 History gabapentin 100 mg capsule 100 mg PO BID@08,1999 cap 12/05/20 07/06/21 07/04/21 07:38 History atorvastatin 80 mg PO BEDTIME@12/07/20 07/06/21 1 Day Ago History ~07/05/21 calcitriol 0.25 mcg PO DAILY@0800 01/16/21 07/06/21 07/04/21 History Enema Disposable 118 ml MI DAILY PRN 02/28/21 07/06/21 Unknown History citalopram 10 mg PO DAILY@0800 02/28/21 07/06/21 07/04/21 History docusate sodium 100 mg PO DAILY@08 02/28/21 07/06/21 07/04/21 History bumetanide 2 mg PO DAILY@06/13/21 07/06/21 07/04/21 07:38 History insulin aspart U-100 [Novolog See Rx Instructions .ROUTE .COMPLEX 06/13/21 07/06/21 07/04/21 07:10 History Flexpen U-100 Insulin] 3 units meclizine 12.5 mg PO DAILY@06/13/21 07/06/21 07/04/21 History metoprolol tartrate 25 mg PO BID@06/13/21 07/06/21 07/04/21 07:38 History mupirocin 1 applic TOPICAL BID PRN 06/13/21 07/06/21 Unknown History phenytoin sodium extended 200 mg PO BID@06/13/21 07/06/2122/21 07:38 History potassium chloride 10 meq PO DAILY@06/13/21 07/06/21 07/04/21 History sennosides-docusate sodium 1 tab PO DAILY@06/13/21 07/06/21 07/04/21 History [Senna-S] warfarin [Jantoven] 1.5 mg PO DAILY@1400 30 Days #30 06/27/21 07/06/21 Unknown Rx tab Levemir FlexTouch U-100 Insuln 5 unit SUBCUT BEDTIME@07/04/21 07/06/21 Unknown History aspirin [Aspir-81] 81 mg PO DAILY@07/04/21 07/06/21 07/05/21 09:00 History bisacodyl 10 mg MI DAILY PRN 07/04/21 07/06/21 Unknown History folic acid 2 mg PO DAILY@07/04/21 07/06/21 Unknown History levothyroxine 25 mcg PO DAILY@07/04/21 07/06/21 07/04/21 History levothyroxine 200 mcg PO DAILY@07/04/21 07/06/21 07/04/21 History magnesium hydroxide [Milk of 30 ml PO DAILY PRN 07/04/21 07/06/21 Unknown History Magnesia] midodrine 10 mg PO TID #90 tab 07/04/21 07/06/21 Unknown Rx nitrofurantoin monohyd/m-cryst 100 mg PO BID 7 Days #14 cap 07/04/21 07/06/21 Unknown Rx [Macrobid] pantoprazole [Protonix] 40 mg PO DAILY@07/04/21 07/06/21 07/04/21 History spironolactone 12.5 mg PO DAILY@07/04/21 07/06/21 07/04/21 History Allergies Allergy/AdvReac Type Severity Reaction Status Date / Time gentamicin Allergy Unknown Verified 07/05/21 21:12 hydromorphone [From Dilaudid] Allergy Unknown Verified 07/05/21 21:12 Current Medications Current Medications Generic Name Dose Route Start Last Admin Trade Name Freq PRN Reason Stop Dose Admin Aspirin 81 mg 07/15/21 09:00 07/15/21 08:38 Aspirin 81 Mg Ec Tablet PO 81 mg DAILY ARMINDA Administration Atorvastatin Calcium 80 mg 07/06/21 21:00 07/14/21 21:14 Atorvastatin 40 Mg Tablet PO 80 mg BEDTIME [facility] Administration Bumetanide 2 mg 07/13/21 09:00 07/15/21 08:37 Bumetanide 1 Mg Tablet PO 2 mg DAILY [facility] Administration Calcitriol 0.25 mcg 07/06/21 08:00 07/15/21 08:38 Calcitriol 0.25 Mcg Capsule PO 0.25 mcg DAILY@0800 [facility] Administration Citalopram Hydrobromide 10 mg 07/06/21 09:00 07/15/21 08:37 Citalopram 20 Mg Tablet PO 10 mg DAILY [facility] Administration Clopidogrel Bisulfate 75 mg 07/06/21 08:00 07/15/21 08:38 Clopidogrel 75 Mg Tablet PO 75 mg DAILY@0800 [facility] Administration Enoxaparin Sodium 30 mg 07/15/21 12:00 07/15/21 13:43 Enoxaparin 30 Mg/0.3 Ml Syringe SUBCUT Not Given Q24H [facility] Fluconazole 200 mg 07/10/21 09:00 07/15/21 08:38 Fluconazole 100 Mg Tablet PO 200 mg DAILY [facility] Administration Folic Acid 2 mg 07/11/21 20:55 07/14/21 21:15 Folic Acid 1 Mg Tablet PO 2 mg DAILY@20 [facility] Administration Gabapentin 100 mg 07/06/21 08:00 07/15/21 08:37 Gabapentin 100 Mg Capsule PO 100 mg BID@08,1999 [facility] Administration Albumin Human 25 gm in 100 mls @ 60 mls/hr 07/13/21 12:30 07/15/21 02:44 Albumin IV 07/16/21 12:29 Infused Q12H [facility] Infusion Insulin Human Lispro 0 unit 07/06/21 08:00 07/15/21 13:43 Insulin Lispro 100 Unit/1 Ml SUBCUT Not Given WM&BEDTIME [facility] Protocol Levothyroxine Sodium 25 mcg 07/06/21 06:00 07/15/21 07:41 Levothyroxine 25 Mcg Tablet PO Not Given DAILY@06 [facility] Levothyroxine Sodium 200 mcg 07/06/21 06:00 07/15/21 07:41 Levothyroxine 200 Mcg Tablet PO Not Given DAILY@06 [facility] Midodrine 10 mg 07/13/21 15:00 07/15/21 08:38 Midodrine 5 Mg Tablet PO 10 mg TID ARMINDA Administration Ondansetron HCl 4 mg 07/08/21 09:16 07/14/21 08:46 Ondansetron 2 Mg/Ml Sdv 2 Ml IVP 4 mg Q6H PRN Administration NAUSEA AND VOMITING Pantoprazole Sodium 40 mg 07/06/21 08:00 07/15/21 08:[address] 40 Mg Tablet PO 40 mg DAILY@08 [facility] Administration Phenytoin 200 mg 07/06/21 08:00 07/15/21 08:38 Phenytoin Er 100 Mg Capsule PO 200 mg BID@, ARMINDA Administration Thiamine Mononitrate 100 mg 07/14/21 12:00 07/15/21 08:38 Thiamine 100 Mg Tablet PO 100 mg DAILY ARMINDA Administration PFSH Acute PFSH: Medical History (Updated 07/14/21 @ 13:51 by Citlali Perry MD) Acute hypercapnic respiratory failure Afib Anemia Atrial fibrillation with RVR CAD (coronary artery disease) Chronic anticoagulation Eliquis CKD (chronic kidney disease) Congestive heart failure Diabetes Dyslipidemia Hematoma of left flank HTN (hypertension) Morbid obesity Morbid obesity NSTEMI (non-ST elevated myocardial infarction) PVD (peripheral vascular disease) 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) Status post insertion of drug-eluting stent into left anterior descending (LAD) artery Urine retention Venous stasis Surgical History History of ankle surgery History of cataract surgery History of cholecystectomy History of heart artery stent History of umbilical hernia repair S/P hemodialysis catheter insertion (11/22/20) Right internal jugular vein d/c 12/25/20 Family History Other Cancer Diabetes Social History Smoking and tobacco status: never smoked Alcohol intake: never Marital status: / Current occupational status: retired History of recent travel: No Vitals/I&O/Wt Last Vital Signs Temp 97.0 F L 07/15/21 08:00 Pulse 68 07/15/21 12:20 Resp 18 07/15/21 11:51 BP 114/68 07/15/21 11:51 Pulse Ox 94 07/15/21 12:20 07/14/21 07/15/21 07/15/21 22:59 06:59 14:59 Intake Total 60 / 1420 1140 / 1420 Output Total 75 / 125 50 / 125 Balance -15 / 1295 1090 / 1295 Weight last 48 hrs Weight 339 lb 6.4 oz Weight 336 lb 6.4 oz Physical Exam Narrative: EXAM NARRATIVE: HEENT: Normocephalic, on BiPAP Eye: Sclera /conjunctiva normal Abdomen: Soft to palpation Neurological: Arousable Skin: Intact, no lesions appreciated on gross exam Urinary Catheter Management^: Acevedo: Cath Placed During This Visit: no Reason for Continuing Indwelling Catheter: Acute Urinary Retention or Obstruction A&P Assessment and plan (1) Acute renal failure: 75 old female with history of acute renal failure who has now become oliguric. Patient is on aspirin and Plavix. Plan for placement of tunneled hemodialysis catheter under MAC today. Consent obtained from patient's son Jimi Lee Status: Acute Consult Attestations Medical Necessity Statement: As per attending physician Coding Level of Care Code Acute Lean Engineer for Sosa Bates Diagnoses Acute renal failure N17.9
--- NOTE | 2021-07-15 14:12 | SC_ITS ---
WS: [id number] C-ARM RADIOGRAPHS CHEST; 3 IMAGES HISTORY: Intraoperative imaging. COMPARISON: None available. Intraoperative imaging during large bore dialysis catheter placement. Tips project over the region of the distal SVC. SC/C-arm FL for CVA [id number] IMPRESSION: Intraoperative imaging during dialysis catheter placement.
[2021-07-15] MEDS: lidocaine 1% INJ 20 mL XX (15:28)
[2021-07-15] MEDS: heparin, porcine 1,000 unit/mL INJ 10 mL 6000 UNIT IRRIGATION (15:28)
--- NOTE | 2021-07-15 16:16 | PM.OP ---
Operative Report Date of procedure: July 15, 2021 Pre-op Diagnosis: Acute renal failure Post-op diagnosis: same Procedure Done: 1. Placement of 16 Bangladeshi 23 cm long tunneled AshSplit hemodialysis catheter in the right internal jugular vein 2. Fluoroscopic guidance and interpretation for placement of catheter 3. Ultrasound guidance to access the right internal jugular vein Pathology: none sent Surgeon: Hesham Corrales Anesthesia: MAC Condition: stable Disposition: PACU Procedure: The patient was taken to the operating room and placed under MAC after IV antibiotic had been administered. The chest and neck were prepped and draped in a sterile manner bilaterally. An ultrasound of the right internal jugular vein revealed patent flow, no thrombus identified. Using introducer needle the internal jugular vein on the right side was accessed and guidewire passed into the right atrium under fluoroscopy. Under fluoroscopy the location for the dialysis catheter was marked. Using 11 blade a skin incision was extended at the vein access site as well as the previously marked location on the right chest wall. The dialysis catheter was attached to the tunneler and passed subcutaneously, exiting at the venous access site. Serial dilators were passed over the guidewire under fluoroscopy. Finally the dilator peel-away sheath was passed over the guidewire and the inner dilator and guidewire was removed and the dialysis catheter was introduced into the right internal jugular vein as the peel-away sheath was removed. The tip of the catheter was noted to be in the right atrium. Both ports of the catheter leonard blood and flushed easily. The catheter was sutured to the skin using 2-0 Prolene and the venous access site was closed with 4-0 Monocryl and Dermabond. A total of 5 mL of 1:10,000 heparin was injected into the 2 ports under dialysis catheter. Fluoroscopic guidance and interpretation for passage of guidewire and dilator and placement of catheter in the right atrium.
[2021-07-15 17:44] LABS: ABG PCO2 57.6 mmHg (35-45); ABG PH Result 7.27 (7.35-7.45); Alveolar-Arterial Oxygen Gradi 10.3 mmHg (5-10); Arterial Blood Gas Hematocrit 22.6 % (37-47); Base Excess ABG -0.4 mmol/L (-2.0-2.0); Blood Gas Allen Test Pos; Blood Gas Operator Identificat BD; Blood Gas Sample Site Brachial, right; Blood Gas Sample Type Arterial; Blood Gas Tidal Volume 0.45; Carboxyhemoglobin 1.1 %THgb (0.4-20.1); HCO3 ABG 26.7 mmol/L (22-26); Ionized Calcium Level - ABG 1.1 mmol/L (1.1-1.4); Methemoglobin < 0.0 % (0.4-1.5); Oxygen Device BIPAP; Oxygen Saturation ABG 96.9; PO2 ABG 80.8 mmHg (80.0-100.0); Potassium Level - ABG 3.8 mmol/L (3.5-5.0); Total Hemoglobin 7.4 g/dL (12-16)
--- NOTE | 2021-07-15 19:22 | PC.HD ---
Patient arrived to dialysis immediately after HD catheter insertion which was oozing considerably. continued oozing noted during treatment. 1L bag NSS used to place pressure on the site. RN/MD aware.
--- NOTE | 2021-07-15 19:39 | PM.EVENT ---
Event Note Event Note: Pt's xray showed b/l large pleural effusions. Left > Right. Due to pulm crit, CTS and IR not being available today, discussed with ER Dr. Renee regarding therapeutic thoracentesis. Pt high risk for bleed. As per ER rec, will attempt to transfer to higher level of care. Called [facility] ([place] and [place]). No bed available in med/surg or ICU. Family updated. They are aware. Dialysis catheter placed by Dr. Corrales. She is oozing blood at catheter site s/p procedure and is still drowsy. Repeat gas 7.. Pt re-seen getting dialyzed. Family present bedside. Discussed with family in detail (patient's son is here Jimi Lee and daughter on the phone: both are power of attorneys), they would like to change code status to DNR/DNI. Code status updated. They have also brought up possibility of hospice but will decide on that in AM when daughter gets here. Pt carries a poor prognosis. Of note, pt also had [employer] yesterday. Will continue AVAPs for now. Will hold 2 units PRBC and type and cross. Continue to apply pressure at catheter site. Will recheck labs 30 min post dialysis. Transfusion threshold <9 due to CAD hx. RN updated. Family updated in person in detail and they understand pts poor prognosis.
[2021-07-15 21:48] LABS: Glucose Point of Care 91 mg/dL (70-110)
[2021-07-15 22:50] LABS: Basophils # 0.1 10^3/uL (0.0-0.1); Basophils % 0.6 %; Eosinophils # 0.2 10^3/uL (0.0-0.8); Eosinophils % 2.8 %; Hematocrit 26.3 % (37.0-47.0); Hemoglobin 7.9 g/dL (11.5-15.3); Lymphocytes # 1.5 10^3/uL (0.8-4.8); Lymphocytes % 17.9 %; Mean Platelet Volume 11.5 fL (7.4-10.4); Monocytes # 0.6 10^3/uL (0.2-0.9); Monocytes % 7.8 %; Neutrophils # 5.63 10^3/uL (1.8-7.7); Neutrophils % 69.5 %; Nucleated Red Blood Cells # 0.2 /100WBC; Platelet Count 135 10^3/cmm (130-400); Red Blood Count 2.63 10^6/uL (4.1-5.3); White Blood Count 8.1 10^3/uL (4.0-10.0)
[2021-07-15 23:03] LABS: Anion Gap 15.9 (5-19); Blood Urea Nitrogen 29 mg/dL (8-23); Calcium 7.5 mg/dL (8.5-10.5); Carbon Dioxide 26 mmol/L (22-29); Chloride 99 mmol/L (98-107); Glucose 78 mg/dL (65-115); Osmolality Calculated 289 mOsm/kg (285-295); Potassium 3.9 mmol/L (3.5-5.1); Sodium 137 mmol/L (136-145)
[2021-07-15 23:08] LABS: Heparin Induced Platelet AB NEGATIVE (NEGATIVE); Patient O.D 0.073
[2021-07-16] VITALS (23 sets, daily range): BP systolic 97–132; BP diastolic 67–84; PULSE 60–124; RESP 16–20; TEMP 35.6–36.6; O2SAT 18–100
[2021-07-16] MEDS: sodium chloride 0.9% (100 ml) 100 ML 125 ML (03:56)
[2021-07-16] MEDS: levothyroxine 25 mcg Tablet PO (05:17)
[2021-07-16] MEDS: levothyroxine 200 mcg Tablet PO (05:17)
[2021-07-16 06:27] LABS: Basophils # 0.1 10^3/uL (0.0-0.1); Basophils % 0.7 %; Eosinophils # 0.2 10^3/uL (0.0-0.8); Eosinophils % 2.2 %; Hematocrit 29.7 % (37.0-47.0); Hemoglobin 9.3 g/dL (11.5-15.3); Lymphocytes # 1.2 10^3/uL (0.8-4.8); Lymphocytes % 12.9 %; Mean Corpuscular HGB Conc 31.3 g/dL (30.0-36.0); Mean Corpuscular Hemoglobin 30.6 pg (28.0-34.0); Mean Corpuscular Volume 97.7 fl (81-99); Mean Platelet Volume 11.4 fL (7.4-10.4); Monocytes # 0.5 10^3/uL (0.2-0.9); Monocytes % 5.6 %; Neutrophils # 7.33 10^3/uL (1.8-7.7); Neutrophils % 77.3 %; Nucleated Red Blood Cells # 0.2 /100WBC; Nucleated Red Blood Cells % 1.6 %; Platelet Count 134 10^3/cmm (130-400); Red Blood Count 3.04 10^6/uL (4.1-5.3); Red Cell Distribution Width 17.1 % (12.1-15.1); White Blood Count 9.5 10^3/uL (4.0-10.0)
[2021-07-16 06:47] LABS: Glucose Point of Care 79 mg/dL (70-110)
--- NOTE | 2021-07-16 06:48 | ANE.PACU2 ---
Inpatient post-anesthesia follow up: Airway intact: Yes Vital signs: Temperature 96.5 F Pulse Rate 96 Respiratory Rate 20 Blood Pressure 123/74 Pulse Oximetry 98 Oxygen Delivery Me thod [ Nasal Cannula Current Rate & Del elizabeth] Oxygen Delivery Me thod BiPAP Oxygen Flow Rate [ Current Rate 1 & Delivery] Oxygen Flow Rate 6 Fraction of Inspir ed Oxygen 32 Hydration adequate: Yes Nausea and vomiting: No Pain level: 1 Mental status: Baseline
[2021-07-16 07:05] LABS: Anion Gap 18.3 (5-19); Blood Urea Nitrogen 30 mg/dL (8-23); Calcium 7.5 mg/dL (8.5-10.5); Carbon Dioxide 23 mmol/L (22-29); Chloride 99 mmol/L (98-107); Glucose 72 mg/dL (65-115); Magnesium 1.7 mg/dL (1.7-2.3); Osmolality Calculated 287 mOsm/kg (285-295); Potassium 4.3 mmol/L (3.5-5.1); Sodium 136 mmol/L (136-145)
[2021-07-16 07:28] LABS: Slide Review Slide Review Perform
--- NOTE | 2021-07-16 07:44 | PC.OT ---
OT HELD THIS A.M. DUE TO PATIENT STATUS, WILL DISCUSS WITH DOCTOR IN P.M. REGARDING CONTINUED CARE/TREATMENT.
--- NOTE | 2021-07-16 07:49 | XR_ITS ---
WS: [id number] PORTABLE CHEST HISTORY: Re-assess pleural effusions COMPARISON: 07/15/[address] 07/15/2021 Recently placed dialysis catheter with tips in the mid SVC. The shorter lumen may be at the junction of the innominate veins with the SVC. Mild diffuse haziness and edema. Bilateral pleural effusions have slightly improved since the prior s tudies. The LEFT does appear moderate in size. Cardiac size: Partially obscured but slightly enlarged. Mediastinum/Aorta: Mild atherosclerosis aorta. No osseous abnormality seen. XR/XR chest 1V portable [id number] IMPRESSION: 1. Bilateral pleural effusions, LEFT is moderate and RIGHT is small. 2. Mild edema. 3. Dialysis catheter tips terminating in the mid SVC. Catheter tips may have s lightly retracted since the insertion site on 07/15/2021. The shorter lumen may a ctually be at the junction of the innominate veins. Dialysis catheter may need to be advanced. As this image is within a lordotic position recommend repeating portable chest radiograph in a less lordotic positioning and the patient uprig ht.
[2021-07-16] MEDS: phenytoin ER 100 mg Capsule 200 MG PO (09:14)
[2021-07-16] MEDS: bumetanide 1 mg Tablet 2 MG PO (09:14)
[2021-07-16] MEDS: thiamine 100 mg Tablet PO (09:15)
[2021-07-16] MEDS: citalopram 20 mg Tablet 10 MG PO (09:15)
[2021-07-16] MEDS: calcitriol 0.25 mcg Capsule PO (09:15)
[2021-07-16] MEDS: fluconazole 100 mg Tablet 200 MG PO (09:15)
[2021-07-16] MEDS: clopidogrel 75 mg Tablet PO (09:15)
[2021-07-16] MEDS: aspirin 81 mg EC Tablet PO (09:15)
[2021-07-16] MEDS: gabapentin 100 mg Capsule PO (09:15)
[2021-07-16] MEDS: pantoprazole DR 40 mg Tablet PO (09:16)
--- NOTE | 2021-07-16 10:30 | PM.PN ---
Subjective Subjective: Interval history: Events of the last 24 hours noted. She did have dialysis yesterday. Hemodynamics remained stable. She is minimally interactive, currently on BiPAP. She still has significant edema in her extremities. Medications: Reviewed: Yes Vitals/I&O/Wt Last Vital Signs Temp 96.5 F L 07/16/21 04:30 Pulse 110 H 07/16/21 08:00 Resp 18 07/16/21 08:00 BP 132/81 07/16/21 08:00 Pulse Ox 100 07/16/21 08:00 07/15/21 07/16/21 07/16/21 22:59 06:59 14:59 Intake Total 360 / 360 450 / 810 Output Total 100 / 100 50 / 150 Balance 260 / 260 400 / 660 Weight last 48 hrs Weight 154.811 kg Weight 153.949 kg Physical Exam Narrative: EXAM NARRATIVE: Constitutional: Awake, comfortable HEENT: Wet mucosa, no jvp, non icteric Lungs: Bilaterally clear without discernible wheeze or rales in all lung zones CVS: S1 S2, no murmurs Abdo: Soft, BS ok Ext 4: 2-3+ edema, peripheral perfusion with no cyanosis Neurological: Grossly non-focal Urinary Catheter Management^: Acevedo: Cath Placed During This Visit: no Reason for Continuing Indwelling Catheter: Acute Urinary Retention or Obstruction Data : 07/16/21 06:17 07/16/21 06:17 A&P Additional A&P Information 1. Acute renal failure Overt renal failure over the last few days despite ivf bolus. ? cardiorenal syndrome, unclear etiology Dialysis via temp line performed yesterday Strict I's and O's Dose medication for GFR less than 15 on dialysis 2. Chemistry resp acidosis, back on bipap, otherwise lytes look ok 3. Hemodynamics appear stable now 4. Pleural effusions pending thoracentesis Overall prognosis is guarded, she has really failed to make good progress during this hospitalization I do appreciate that she is now DNI/DNR which I fully agree with. Exam and interview performed with aid of bedside RN using telemedicine Time spent 20 min inc > 50% of time in face to face counseling Corbin Sánchez MD [facility] [phone] Attestations Medical Necessity Statement*: Eval for TIFFANY mgmt Coding Level of Care Code Acute [employer] for [employer] F[employer]
--- NOTE | 2021-07-16 10:50 | PC.OT ---
HOLD OT TREATMENT TODAY PER DOCTOR.
[2021-07-16 11:41] LABS: ABG PH Result 7.28 (7.35-7.45); Arterial Blood Gas Hematocrit 28.4 % (37-47); Base Excess ABG 2.2 mmol/L (-2.0-2.0); Blood Gas Sample Type Arterial; Carboxyhemoglobin 1.8 %THgb (0.4-20.1); HCO3 ABG 29.8 mmol/L (22-26); HGB O2 Sat 53.3 % (95-100); Ionized Calcium Level - ABG 1.1 mmol/L (1.1-1.4); Methemoglobin 0.7 % (0.4-1.5); Oxygen Saturation ABG 54.6; Total Hemoglobin 9.3 g/dL (12-16)
[2021-07-16 11:46] LABS: Alveolar-Arterial Oxygen Gradi 12.9 mmHg (5-10); Blood Gas Sample Site Brachial, left; Oxygen Device BIPAP
[2021-07-16 12:01] LABS: Glucose Point of Care 77 mg/dL (70-110)
--- NOTE | 2021-07-16 12:36 | PM.PN ---
Subjective Subjective: Interval history: Patient got a unit of blood last night. Repeat hemoglobin posttransfusion 9.3. She is continues to lose blood at dialysis catheter site. Pressure has been applied and weight has been placed. Chest x-ray still shows bilateral pleural effusions. Discussed with radiology and patient is a very high risk for thoracentesis since she is on aspirin and Plavix both. Blood gas done this morning shows pH 7.2. Patient is on BiPAP and does desaturate very quickly into the 70s when taken off even briefly just to give medications. Patient also refused to take her medications this morning. She is awake and somewhat alert. Family came in from home including daughter who came in from [place]. Son is the DURABLE POWER OF BACK HOE OPERATOR. [id number] also here. Family saw the patient in person at bedside. After having extensive family discussion it would be in the best interest of the patient to pursue comfort measures at this time as per the family's wishes. Vitals/I&O/Wt Last Vital Signs Temp 96.5 F L 07/16/21 04:30 Pulse 94 07/16/21 11:19 Resp 20 H 07/16/21 11:19 BP 125/75 07/16/21 11:19 Pulse Ox 97 07/16/21 11:19 07/15/21 07/16/21 07/16/21 22:59 06:59 14:59 Intake Total 360 / 360 450 / 810 Output Total 100 / 100 50 / 150 Balance 260 / 260 400 / 660 Weight last 48 hrs Weight 154.811 kg Weight 153.949 kg Physical Exam Narrative: EXAM NARRATIVE: General: Alert oriented x1, patient seen laying in bed on BiPAP not in acute respiratory distress while on BiPAP. When mask removed she does desaturate down to 70s.. HEENT: Normocephalic, atraumatic, EOMI, Cardio: Irregularly irregular normal S1-S2, no gross murmurs., Groin sites appear okay with no fluctuance or evidence of hematoma. Chest dialysis catheter insertion site oozing blood. Large weighted bag has been placed on the area. Respiratory: Diminished bilateral air entry overall with no crackles wheezes or rhonchi present on auscultation. Breath sounds very diminished at bases. Unable to auscultate patient with sitting up or moving forward due to her current position and posture. GI: Abdomen soft, nontender, nondistended, bowel sounds +, obese rounded abdomen Behavior: Appears lethargic and on BiPAP right now. Extremities: 2+ bilateral lower extremity edema present chronic venous stasis changes present, no cyanosis present. Neuro exam: Following commands, severely deconditioned, patient does open her eyes. Unable to do complete neuro exam due to patient being on BiPAP. Urinary Catheter Management^: Acevedo: Cath Placed During This Visit: no Reason for Continuing Indwelling Catheter: Acute Urinary Retention or Obstruction Data : 07/16/21 06:17 07/16/21 06:17 A&P Assessment and plan (1) Acute renal failure: Status: Acute (2) Acute renal failure superimposed on stage 3 chronic kidney disease: Status: Acute (3) CKD (chronic kidney disease): Status: Acute (4) Acute on chronic congestive heart failure: Status: Acute Qualifiers: Heart failure type: systolic Qualified Code(s): I50.23 - Acute on chronic systolic (congestive) heart failure (5) Atrial fibrillation with RVR: Status: Acute (6) Urine retention: Status: Acute (7) Orthostatic hypotension: Status: Acute (8) Atherosclerotic heart disease of [place] coronary artery with unstable angina pectoris: Status: Chronic Qualifiers: [place] vs. transplanted heart: [place] heart Qualified Code(s): I25.110 - Atherosclerotic heart disease of [place] coronary artery with unstable angina pectoris (9) Venous stasis: Status: Chronic (10) Dyslipidemia: Status: Chronic (11) Diabetes: Status: Acute Qualifiers: Chronic kidney disease stage: stage 3 (moderate) Chronic kidney disease stage 3 subtype: stage 3b (GFR 30-44) Diabetes mellitus complication detail: with chronic kidney disease Diabetes mellitus complication status: with kidney complications Diabetes mellitus detention insulin use: with detention use Diabetes mellitus type: type 2 Qualified Code(s): E11.22 - Type 2 diabetes mellitus with diabetic chronic kidney disease; N18.32 - Chronic kidney disease, stage 3b; Z79.4 - care home (current) use of insulin (12) Status post insertion of drug-eluting stent into left anterior descending (LAD) artery: Status: Acute (13) Warfarin-induced coagulopathy: Status: Acute Additional A&P Information #Comfort measures only #Altered Mental Status - resolved #Acute on chronic congestive heart failure 2/2 renal failure -resolved #Acute renal failure on CKD stage 3, etiology multifactorial - active issue #Chronic venous statis #Orthostatic hypotension, on midodrine #DLD #UTI, [place] grew. #Atrial fibrillation, on warfarin - held warfarin for now #CAD s/p stent (recent 07/02/2021) #HTN #Hypothyroidism #DM #PVD #Thrombocytopenia #Generalized deconditioning and debilitated state -Patient has bilateral pleural effusions and is high risk for thoracentesis since she is on aspirin Plavix. Discussed this at length with radiology. Please see event note from yesterday and previous progress notes for more details. ?Family present at bedside today. They would like to keep the patient comfortable at this point. Son is power of divorce attorney. Gepowlrh-uh-zzc and daughter and grandson present. Family meeting was done with RN present. We will start comfort measures as per the family's wishes at this time. Code status: Comfort measures only. Attestations Medical Necessity Statement*: >24 hrs Coding Level of Care Code Acute [place] Mixer Operator for [facility] Fwd Diagnoses Acute renal failure N17.9 Acute renal failure superimposed on stage 3 chronic kidney disease N17.9; N18.30 CKD (chronic kidney disease) N18.9 Acute on chronic congestive heart failure I50.23 Heart failure type: systolic Atrial fibrillation with RVR I48.91 Urine retention R33.9 Orthostatic hypotension I95.1 Atherosclerotic heart disease of [place] coronary artery with unstable angina pectoris I25.110 [place] vs. transplanted heart: [place] heart Venous stasis I87.8 Dyslipidemia E78.5 Diabetes E11.22; N18.32; Z79.4 Chronic kidney disease stage: stage 3 (moderate) Chronic kidney disease stage 3 subtype: stage 3b (GFR 30-44) Diabetes mellitus complication detail: with chronic kidney disease Diabetes mellitus complication status: with kidney complications Diabetes mellitus detention insulin use: with intermediate manager use Diabetes mellitus type: type 2 Status post insertion of drug-eluting stent into left anterior descending (LAD) artery Z95.5 Warfarin-induced coagulopathy D68.32; T45.515A
[2021-07-16] MEDS: morphine 4 mg/mL SDV 1 mL IVP (13:14)
--- NOTE | 2021-07-16 13:29 | PC.SOCIAL ---
IMM Update IMM updated and reviewed w/ patient. Copy provided.
[2021-07-16] MEDS: piperacillin-tazobactam 3.375 GM in sodium chloride 0.9% (plus) 50 ML IV (16:25)
--- NOTE | 2021-07-16 17:02 | PM.CONSULT ---
Providers/Reason For Consult Consulting Physician/Specialty*: Dr. Knutson/cardiothoracic surgery Reason for Consult*: Bilateral pleural effusions Requesting Physician: Dr. Perry Attending Physician: Citlali Perry MD Primary Care Provider: Pascual Kay MD History of Present Illness History of Present Illness Carole Lee is a 75 year old female hospitalized since July 05 after presenting with mental status change, worsening renal dysfunction, and shortness of breath. She had been hospitalized previously from June 13 to July 03 with shortness of breath and A. fib. She developed to ventricular arrhythmias during hospitalization requiring subsequent coronary angiogram and stenting of the OMB. She has a substantial depressed ejection fraction at 20 to 25%. She had been on Coumadin for her A. fib but developed substantial bleeding difficulties. She has had previous left femoral central line and right femoral dialysis catheter. She most recently had placed during this hospitalization a right IJ.tunneled dialysis catheter by Dr. Corrales yesterday. She has had bleeding from the exit site since that placement. Warfarin has not been reinitiated due to her bleeding difficulties. During her immediately previous hospitalization she had such bleeding from her catheterization sites and she did require 2 unit transfusion. She did receive dialysis yesterday and is scheduled again for tomorrow. She has morbid obesity with a BMI of over 50. She has bilateral pleural effusions and some atelectasis of the lower lobes of the lungs. Consultation with interventional radiology and with pulmonary medicine was made concerning consideration for thoracentesis though this has not proceeded for fear of bleeding concerns because of aspirin and Plavix. Therefore, I was consulted to consider whether I would be able to assist with management of these effusions. She initially had been placed on comfort care though has now become more arousable after her recovery from sedation for her dialysis catheter placement. She currently wishes for all supportive measures to be in place including full resuscitation in the event of a code. She has previously been on BiPAP though most recently earlier today was placed on high flow warm humidified oxygen. She is obviously very weak though was able to communicate with to me with short sentences and appears to have understanding of her condition and our consideration for possible attempts to drain her pleural effusions. Son was at bedside during our conversation and discussion. I have reviewed with Dr. Perry the most recent CT scan and chest x-ray obtained. An attempt to transfer her to a higher level of care though there were no available medical/surgical or ICU beds at 10 different hospitals in [place] and [place]. Review of Systems Const: Reports: fatigue and malaise Card: Reports: palpitations, irregular heart rhythm, edema, swelling of feet/ankles, dyspnea on exertion and orthopnea Resp: Reports: dyspnea and non-productive cough Meds/Allergies Home Medications and Allergies Home Medications Medication Instructions Recorded Confirmed Last Taken Type clopidogrel 75 mg PO DAILY@0800 11/29/20 07/06/21 07/04/21 History gabapentin 100 mg capsule 100 mg PO BID@08,1999 cap 12/05/20 07/06/21 07/04/21 07:38 History atorvastatin 80 mg PO BEDTIME@12/07/20 07/06/21 1 Day Ago History ~07/05/21 calcitriol 0.25 mcg PO DAILY@0800 01/16/21 07/06/21 07/04/21 History Enema Disposable 118 ml NE DAILY PRN 02/28/21 07/06/21 Unknown History citalopram 10 mg PO DAILY@0800 02/28/21 07/06/21 07/04/21 History docusate sodium 100 mg PO DAILY@02/28/21 07/06/21 07/04/21 History bumetanide 2 mg PO DAILY@06/13/21 07/06/21 07/04/21 07:38 History insulin aspart U-100 [Novolog See Rx Instructions .ROUTE .COMPLEX 06/13/21 07/06/21 07/04/21 07:10 History Flexpen U-100 Insulin] 3 units meclizine 12.5 mg PO DAILY@06/13/21 07/06/21 07/04/21 History metoprolol tartrate 25 mg PO BID@06/13/21 07/06/21 07/04/21 07:38 History mupirocin 1 applic TOPICAL BID PRN 06/13/21 07/06/21 Unknown History phenytoin sodium extended 200 mg PO BID@,06/13/21 07/06/21 07/04/21 07:38 History potassium chloride 10 meq PO DAILY@08 06/13/21 07/06/21 07/04/21 History sennosides-docusate sodium 1 tab PO DAILY@06/13/21 07/06/2122/21 History [Senna-S] warfarin [Jantoven] 1.5 mg PO DAILY@1400 30 Days #30 06/27/21 07/06/21 Unknown Rx tab Levemir FlexTouch U-100 Insuln 5 unit SUBCUT BEDTIME@07/04/21 07/06/21 Unknown History aspirin [Aspir-81] 81 mg PO DAILY@07/04/21 07/06/21 07/05/21 09:00 History bisacodyl 10 mg NE DAILY PRN 07/04/21 07/06/21 Unknown History folic acid 2 mg PO DAILY@07/04/21 07/06/21 Unknown History levothyroxine 25 mcg PO DAILY@07/04/21 07/06/21 07/04/21 History levothyroxine 200 mcg PO DAILY@07/04/21 07/06/21 07/04/21 History magnesium hydroxide [Milk of 30 ml PO DAILY PRN 07/04/21 07/06/21 Unknown History Magnesia] midodrine 10 mg PO TID #90 tab 07/04/21 07/06/21 Unknown Rx nitrofurantoin monohyd/m-cryst 100 mg PO BID 7 Days #14 cap 07/04/21 07/06/21 Unknown Rx [Macrobid] pantoprazole [Protonix] 40 mg PO DAILY@07/04/21 07/06/21 07/04/21 History spironolactone 12.5 mg PO DAILY@07/04/21 07/06/21 07/04/21 History Allergies Allergy/AdvReac Type Severity Reaction Status Date / Time gentamicin Allergy Unknown Verified 07/05/21 21:12 hydromorphone [From Dilaudid] Allergy Unknown Verified 07/05/21 21:12 Current Medications Current Medications Generic Name Dose Route Start Last Admin Trade Name Freq PRN Reason Stop Dose Admin Piperacillin Sod/Tazobactam 50 mls @ 12.5 mls/hr 07/16/21 16:30 07/16/21 16:25 Sod 3.375 gm/ Sodium Chloride IV 12.5 mls/hr Q8H ARMINDA Administration Protocol Morphine Sulfate 2 - 10 mg 07/16/21 12:34 07/16/21 13:14 Morphine 4 Mg/Ml Sdv 1 Ml IVP 2 mg Q15M PRN Administration Moderate To Severe Pain or SOB PFSH Acute PFSH: Medical History Acute hypercapnic respiratory failure Afib Anemia Atrial fibrillation with RVR CAD (coronary artery disease) Chronic anticoagulation Eliquis CKD (chronic kidney disease) Congestive heart failure Diabetes Dyslipidemia Hematoma of left flank HTN (hypertension) Morbid obesity Morbid obesity NSTEMI (non-ST elevated myocardial infarction) PVD (peripheral vascular disease) 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) Status post insertion of drug-eluting stent into left anterior descending (LAD) artery Urine retention Venous stasis Surgical History History of ankle surgery History of cataract surgery History of cholecystectomy History of heart artery stent History of umbilical hernia repair S/P hemodialysis catheter insertion (11/22/20) Right internal jugular vein d/c 12/25/20 Family History Other Cancer Diabetes Social History Smoking and tobacco status: never smoked Alcohol intake: never Marital status: / Current occupational status: retired History of recent travel: No Vitals/I&O/Wt Last Vital Signs Temp 96.5 F L 07/16/21 04:30 Pulse 87 07/16/21 16:09 Resp 18 07/16/21 16:09 BP 129/82 07/16/21 15:42 Pulse Ox 91 07/16/21 16:09 07/16/21 07/16/21 07/16/21 06:59 14:59 22:59 Intake Total 450 / 810 Output Total 50 / 150 Balance 400 / 660 Weight last 48 hrs Weight 341 lb 4.8 oz Weight 339 lb 6.4 oz Physical Exam Const: COMMON NORMALS: patient oriented x3 HENMT: COMMON NORMALS: normocephalic, atraumatic, hearing grossly normal bilaterally, external ears normal and Normal external nose present HEAD & SCALP: normocephalic and atraumatic NOSE: Normal external nose present EXTERNAL EAR: Yes external ears normal Neck/C-Spine: COMMON NORMALS: negative for full ROM GENERAL: Yes normal visual inspection Chest: COMMONS NORMALS: negative for normal inspection of the chest OTHER: Large pressure dressing in place over the right anterior chest wall from the previous right IJ dialysis catheter placement and subsequent bleeding from the exit point along the chest wall. I did not remove this dressing. Resp: COMMON NORMALS: negative for normal respiratory effort and negative for clear to auscultation bilaterally EFFORT & INSPECTION: Yes symmetric chest movement, Yes abnormal respiratory pattern, Yes tachypneic, Yes pursed lip breathing and No tracheal deviation AUSCULTATION: not clear to auscultation bilaterally and diminished lung sounds Cardio: RHYTHM: abnormal rhythm Extremity: GENERAL: Yes edema OTHER: Superficial ecchymoses Neuro: COMMON NORMALS: patient oriented x3 Urinary Catheter Management^: Acevedo: Cath Placed During This Visit: no Reason for Continuing Indwelling Catheter: Acute Urinary Retention or Obstruction A&P Assessment and plan (1) Pleural effusion due to CHF (congestive heart failure): Challenging situation in this morbidly obese 75-year-old female depressed ejection fraction at 20 to 25% and bilateral pleural effusions. She is currently resuming hemodialysis through a right IJ dialysis catheter. She is severely deconditioned. Consultation with other services have resulted in hesitancy to perform any type of intervention on these pleural effusions due to concerns about bleeding. She currently is maintained on aspirin and Plavix due to her recent coronary stenting. She has been weaned from BiPAP in the last couple of hours and currently is on high flow oxygen and is scheduled for hemodialysis tomorrow. Recommendation: I will confer with my colleague, Dr. Perry tomorrow as dialysis is being completed to determine the feasibility of a potential thoracentesis. Given her body habitus and the preference to have her in a sitting position, I am concerned this may actually worsen her pulmonary status with compression of her diaphragm from her substantial abdomen and panniculus. Therefore, if we do elect to proceed with attempt at thoracentesis, I would like this to be performed in the operating room theater with anesthesia colleagues available in case her airway needs to be controlled. Hopefully, this can be done with our anesthesia colleagues on standby in the OR suite under local anesthesia for the thoracentesis. The procedure itself will also be challenging due to her substantial habitus and this may be difficult or impossible to perform. We will make further assessment about this tomorrow as she undergoes dialysis to determine her response to that treatment. She is at high risk for any type of procedure related to her numerous comorbidities and recent events. I discussed this very frankly with Ms. Lee and her son. We will give further consideration for possible pleural effusion drainage after her evaluation tomorrow from dialysis. I will discuss this personally with our anesthesia colleagues and my hope for their participation. OR suite will be the most appropriate place for consideration of this procedure related to lighting, personnel, and ability to edition and have our anesthesia colleagues standing by. 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
[2021-07-16 17:10] LABS: Glucose Point of Care 71 mg/dL (70-110)
--- NOTE | 2021-07-16 19:48 | PC.NURSE ---
i reported low temp 97.3 to nurse
[2021-07-16] MEDS: linezolid premix 600 MG/300 ML PREMIX 300 MG IV (20:08)
[2021-07-16 21:27] LABS: Glucose Point of Care 100 mg/dL (70-110)
[2021-07-17] VITALS (15 sets, daily range): BP systolic 87–149; BP diastolic 53–79; PULSE 60–113; RESP 16–18; TEMP 35.5–36.5; O2SAT 89–100
--- NOTE | 2021-07-17 00:14 | PC.NURSE ---
i reported low temp 97.4 and low 02 89 to nurse
[2021-07-17] MEDS: piperacillin-tazobactam 3.375 GM in sodium chloride 0.9% (plus) 50 ML IV ×3 (00:54→23:02)
[2021-07-17 03:44] LABS: ABG PCO2 54.4 mmHg (35-45); ABG PH Result 7.33 (7.35-7.45); Alveolar-Arterial Oxygen Gradi 4.7 mmHg (5-10); Arterial Blood Gas Hematocrit 28.2 % (37-47); Base Excess ABG 1.7 mmol/L (-2.0-2.0); Blood Gas Sample Site Brachial, left; Blood Gas Sample Type Arterial; Carboxyhemoglobin 1.5 %THgb (0.4-20.1); HCO3 ABG 28.3 mmol/L (22-26); Ionized Calcium Level - ABG 1.1 mmol/L (1.1-1.4); Methemoglobin 1.2 % (0.4-1.5); Oxygen Device BIPAP; Oxygen Saturation ABG 98.6; PO2 ABG 98.2 mmHg (80.0-100.0); Potassium Level - ABG 5.2 mmol/L (3.5-5.0); Total Hemoglobin 9.2 g/dL (12-16)
[2021-07-17 05:02] LABS: Basophils # 0.1 10^3/uL (0.0-0.1); Basophils % 0.5 %; Eosinophils # 0.2 10^3/uL (0.0-0.8); Eosinophils % 1.8 %; Hematocrit 31.3 % (37.0-47.0); Hemoglobin 9.5 g/dL (11.5-15.3); Lymphocytes % 8.9 %; Mean Corpuscular HGB Conc 30.4 g/dL (30.0-36.0); Mean Corpuscular Hemoglobin 30.9 pg (28.0-34.0); Mean Platelet Volume 11.6 fL (7.4-10.4); Monocytes # 0.7 10^3/uL (0.2-0.9); Monocytes % 6.5 %; Neutrophils # 9.33 10^3/uL (1.8-7.7); Neutrophils % 81.6 %; Nucleated Red Blood Cells # 0.1 /100WBC; Platelet Count 115 10^3/cmm (130-400); Red Blood Count 3.07 10^6/uL (4.1-5.3); White Blood Count 11.4 10^3/uL (4.0-10.0)
--- NOTE | 2021-07-17 05:16 | PC.NURSE ---
i reported low temp 97.5 to nurse
[2021-07-17 05:47] LABS: Blood Urea Nitrogen 34 mg/dL (8-23); Calcium 7.7 mg/dL (8.5-10.5); Carbon Dioxide 20 mmol/L (22-29); Chloride 99 mmol/L (98-107); Glucose 61 mg/dL (65-115); Magnesium 1.7 mg/dL (1.7-2.3); Osmolality Calculated 288 mOsm/kg (285-295); Sodium 136 mmol/L (136-145)
[2021-07-17 05:49] LABS: Anion Gap 21.5 (5-19); Potassium 4.5 mmol/L (3.5-5.1)
[2021-07-17 06:45] LABS: Glucose Point of Care 57 mg/dL (70-110)
[2021-07-17] MEDS: dextrose 50% syringe 50 mL IVP (07:57)
[2021-07-17] MEDS: linezolid premix 600 MG/300 ML PREMIX 300 MG IV ×2 (07:59→20:28)
[2021-07-17 08:45] LABS: Glucose Point of Care 139 mg/dL (70-110)
--- NOTE | 2021-07-17 12:08 | PM.PN ---
Subjective Subjective: Interval history: Seen this morning. She was on Bipap overnight. No acute events overnight. She will be going for dialysis today. Vitals/I&O/Wt Last Vital Signs Temp 97.3 F L 07/17/21 07:30 Pulse 84 07/17/21 07:30 Resp 18 07/17/21 07:30 BP 149/75 07/17/21 07:30 Pulse Ox 99 07/17/21 07:30 07/16/21 07/17/21 07/17/21 22:59 06:59 14:59 Intake Total 350 / 350 170 / 520 300 / 300 Output Total 50 / 50 200 / 250 Balance 300 / 300 -30 / 270 300 / 300 Weight last 48 hrs Weight 154.811 kg Physical Exam Narrative: EXAM NARRATIVE: General: Alert oriented x3, patient seen laying in bed on BiPAP not in acute respiratory distress while on BiPAP. HEENT: Normocephalic, atraumatic, EOMI, Cardio: Irregularly irregular normal S1-S2, no gross murmurs. Chest dialysis catheter insertion site no longer oozing blood. Large weighted bag has been placed on the area. Respiratory: Bipap transmitted breath sounds, diminished at bases. Unable to do a full exam. GI: Abdomen soft, nontender, nondistended, bowel sounds +, obese rounded abdomen Extremities: 2+ bilateral lower extremity edema present chronic venous stasis changes present, no cyanosis present. Neuro exam: non focal, severely deconditioned, Urinary Catheter Management^: Acevedo: Cath Placed During This Visit: no Reason for Continuing Indwelling Catheter: Acute Urinary Retention or Obstruction Data : 07/17/21 04:10 07/17/21 04:10 Micro: Microbiology 07/16/21 23:35 Bacterial Antigens - Final Urine,Voided 07/16/21 23:35 Legionella Urinary Antigen - Final Urine Catheterized A&P Assessment and plan (1) Acute renal failure: Status: Acute (2) Acute renal failure superimposed on stage 3 chronic kidney disease: Status: Acute (3) CKD (chronic kidney disease): Status: Acute (4) Acute on chronic congestive heart failure: Status: Acute Qualifiers: Heart failure type: systolic Qualified Code(s): I50.23 - Acute on chronic systolic (congestive) heart failure (5) Atrial fibrillation with RVR: Status: Acute (6) Urine retention: Status: Acute (7) Orthostatic hypotension: Status: Acute (8) Atherosclerotic heart disease of [place] coronary artery with unstable angina pectoris: Status: Chronic Qualifiers: [place] vs. transplanted heart: [place] heart Qualified Code(s): I25.110 - Atherosclerotic heart disease of [place] coronary artery with unstable angina pectoris (9) Venous stasis: Status: Chronic (10) Dyslipidemia: Status: Chronic (11) Diabetes: Status: Acute Qualifiers: Chronic kidney disease stage: stage 3 (moderate) Chronic kidney disease stage 3 subtype: stage 3b (GFR 30-44) Diabetes mellitus complication detail: with chronic kidney disease Diabetes mellitus complication status: with kidney complications Diabetes mellitus detention insulin use: with intermediate card tender use Diabetes mellitus type: type 2 Qualified Code(s): E11.22 - Type 2 diabetes mellitus with diabetic chronic kidney disease; N18.32 - Chronic kidney disease, stage 3b; 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 #Atrial fibrillation, on warfarin - held warfarin for now #CAD s/p stent (recent 07/02/2021) #HTN #Hypothyroidism #DM #PVD #Thrombocytopenia #Generalized deconditioning and debilitated state #B/L pleural effusions #Possible LLL pneumonia -Patient has bilateral pleural effusions and is high risk for thoracentesis since she is on aspirin Plavix. Dr. Jackson consulted for effusions. Possible plan of thoracentesis today. Will re-assess status after dialysis. - Continue bipap for now - Questionable LLL consolidation on CT. Will cover with linezolid and zosyn for pneumonia - Deescalate O2 therapy as able. - Now dialysis dependent. Continue to dialyze as per nephro recs. Code status: FULL CODE Attestations Medical Necessity Statement*: > 48 hour stay Coding Level of Care Code Acute Cardiac Sonographer for Sosa Bates Diagnoses Acute renal failure N17.9 Acute renal failure superimposed on stage 3 chronic kidney disease N17.9; N18.30 CKD (chronic kidney disease) N18.9 Acute on chronic congestive heart failure I50.23 Heart failure type: systolic Atrial fibrillation with RVR I48.91 Urine retention R33.9 Orthostatic hypotension I95.1 Atherosclerotic heart disease of [place] coronary artery with unstable angina pectoris I25.110 [place] vs. transplanted heart: [place] heart Venous stasis I87.8 Dyslipidemia E78.5 Diabetes E11.22; N18.32; Z79.4 Chronic kidney disease stage: stage 3 (moderate) Chronic kidney disease stage 3 subtype: stage 3b (GFR 30-44) Diabetes mellitus complication detail: with chronic kidney disease Diabetes mellitus complication status: with kidney complications Diabetes mellitus detention insulin use: with intermediate card tender use Diabetes mellitus type: type 2 Status post insertion of drug-eluting stent into left anterior descending (LAD) artery Z95.5 Warfarin-induced coagulopathy D68.32; T45.515A
--- NOTE | 2021-07-17 14:26 | XRR_ITS ---
PROCEDURE INFORMATION: Exam: XR Chest Exam date and time: 07/17/2021 2:26 PM Age: 75 years old Clinical indication: Condition or disease; Lung condition and disease; Pleural effusion; Other: Not specified; Additional info: Assess for pleural effusions b/l TECHNIQUE: Imaging protocol: XR of the chest. Views: 1 view. COMPARISON: CR XR chest 1V portable [id number] 07/16/2021 8:00 AM FINDINGS: Tubes, catheters and devices: Right central line is stable positioning. Lungs: Ill-defined haziness at the lung bases, potentially atelectasis given presence of pleural effusions. Not significantly changed from prior study. Pleural spaces: Similar appearance of bilateral pleural effusions, left greater than right. No pneumothorax. Heart/Mediastinum: Stable cardiomegaly. Bones/joints: Visualized osseous structures are intact. XR/XR chest 1V portable [id number] IMPRESSION: Stable exam, no significant interval change.
--- NOTE | 2021-07-17 14:56 | P.PN_ITS ---
Subjective Subjective: Interval history: Seen and examined during hemodialysis, so far she is tolerating the treatment well. Hemodynamics remained stable. She remains very drowsy and poorly intera ctive. Medications: Reviewed: Yes Vitals/I&O/Wt Last Vital Signs Temp 96.1 F L 07/17/21 14:25 Pulse 108 H 07/17/21 14:25 Resp 16 07/17/21 14:25 BP 93/61 07/17/21 14:25 Pulse Ox 99 07/17/21 07:30 07/16/21 07/17/21 07/17/21 22:59 06:59 14:59 Intake Total 350 / 350 170 / 520 600 / 600 Output Total 50 / 50 200 / 250 3300 / 3300 Balance 300 / 300 -30 / 270 -2700 / -2700 Weight last 48 hrs Weight 151.4 kg Weight 154.811 kg Physical Exam Narrative: EXAM NARRATIVE: Constitutional: Awake, comfortable HEENT: Wet mucosa, no jvp, non icteric Lungs: Bilaterally clear without discernible wheeze or rales in all lung zones CVS: S1 S2, no murmurs Abdo: Soft, BS ok Ext 4: 2-3+ edema, peripheral perfusion with no cyanosis Neurological: Grossly non-focal Urinary Catheter Management^: Acevedo: Cath Placed During This Visit: no Reason for Continuing Indwelling Catheter: Acute Urinary Retention or Obstruction Data : 07/17/21 04:10 07/17/21 04:10 Micro: Microbiology 07/16/21 23:35 MRSA Culture - Final Nose 07/16/21 23:35 Bacterial Antigens - Final Urine,Voided 07/16/21 23:35 Legionella Urinary Antigen - Final Urine Catheterized A&P Additional A&P Information 1. Acute renal failure Overt renal failure over the last few days despite ivf bolus. ? cardiorenal syndrome, unclear etiology Dialysis today, eval in the am with repeat dialysis again on Friday Strict I's and O's Dose medication for GFR less than 15 on dialysis 2. Chemistry resp acidosis, back on bipap, otherwise lytes look ok 3. Hemodynamics appear stable now 4. Pleural effusions pending thoracentesis today Overall prognosis is guarded, ongoing discussions with family regarding goals fo care Exam and interview performed with aid of bedside RN using telemedicine Time spent 20 min inc > 50% of time in face to face counseling Corbin Sánchez MD [facility] Renal [place] [id number] Attestations Medical Necessity Statement*: Eval for ESRD Coding Level of Care Code Acute Medical Bill Processor for Sosa Bates
--- NOTE | 2021-07-17 15:28 | P.PN_ITS ---
Subjective Subjective: Interval history: Ms. Lee completed hemodialysis today without incident. Post procedure chest x-ray reveals improvement of aeration bilaterally and less effusions on both sides. I reviewed the x-rays with Dr. Perry. She is currently on BiPAP due to comfort though she appears to maintain adequate oxygenation on high flow nasal cannula. I have conferred with my anesthesia colleagues and if procedures to address the pleural effusion were to be performed, they feel comfortable and this being performed at bedside and they would be available to manage the airway. However, with the clear improvement of the chest x-ray post dialysis, I do not recommend we proceed with thoracentesis or chest tube at this time. Vitals/I&O/Wt Last Vital Signs Temp 96.1 F L 07/17/21 14:25 Pulse 108 H 07/17/21 14:25 Resp 16 07/17/21 14:25 BP 93/61 07/17/21 14:25 Pulse Ox 99 07/17/21 07:30 07/17/21 07/17/21 07/17/21 06:59 14:59 22:59 Intake Total 170 / 520 600 / 600 Output Total 200 / 250 3300 / 3300 Balance -30 / 270 -2700 / -2700 Weight last 48 hrs Weight 333 lb 12.478 oz Weight 341 lb 4.8 oz Physical Exam Chest: COMMONS NORMALS: normal palpation of entire chest wall CHEST: Yes Symmetrical chest wall rise Resp: COMMON NORMALS: No use of accessory muscles EFFORT & INSPECTION: Yes symmetric chest movement OTHER: Some improvement in aeration to the mid and lower lung zones as compared to my original exam, though still low average. Cardio: COMMON NORMALS: regular rate and S1 normal heart sound present RATE: regular rate HEART SOUNDS: S1 normal heart sound present Urinary Catheter Management^: Acevedo: Cath Placed During This Visit: no Reason for Continuing Indwelling Catheter: Acute Urinary Retention or Obstruction Data : 07/17/21 04:10 07/17/21 04:10 Micro: Microbiology 07/16/21 23:35 MRSA Culture - Final Nose 07/16/21 23:35 Bacterial Antigens - Final Urine,Voided 07/16/21 23:35 Legionella Urinary Antigen - Final Urine Catheterized A&P Assessment and plan (1) Pleural effusion due to CHF (congestive heart failure): Improvement in bilateral pleural effusions status post hemodialysis earlier today. I have reviewed the chest x-ray with Dr. Perry. I concur with her assessment, that at this time, we should delay in thoracentesis or chest tube for these pleural effusions as they do clearly radiographically appear to have improved. Therefore, I do not think the potential hazard in discomfort up to placement warrants, given the improvement of the effusions. I have discussed this with Ms. Lee, and she states understanding. Diet may be resumed. Status: Acute Attestations Medical Necessity Statement*: CHF with exacerbated renal dysfunction and pleural effusions Time Spent in Patient Care: less than 15 minutes Coding Level of Care Code Acute Case Coordinator for Chg Fwd Diagnoses Pleural effusion due to CHF (congestive heart failure) I50.9
[2021-07-17] MEDS: clopidogrel 75 mg Tablet PO (16:17)
--- NOTE | 2021-07-17 16:48 | PC.OT ---
Per rounding, hold therapies today. Will reattempt tx tomorrow.
[2021-07-17 17:16] LABS: Glucose Point of Care 91 mg/dL (70-110)
--- NOTE | 2021-07-17 20:29 | PC.NURSE ---
i reported low temp 97.5 and high pulse 113 to nurse
[2021-07-17 21:07] LABS: Glucose Point of Care 121 mg/dL (70-110)
[2021-07-18] VITALS (13 sets, daily range): BP systolic 104–127; BP diastolic 50–84; PULSE 68–130; RESP 16–18; TEMP 35.6–36.5; O2SAT 98–100
[2021-07-18 02:48] LABS: ABG PCO2 49.5 mmHg (35-45); ABG PH Result 7.37 (7.35-7.45); Alveolar-Arterial Oxygen Gradi 4.3 mmHg (5-10); Arterial Blood Gas Hematocrit 28.3 % (37-47); Blood Gas Allen Test Pos; Blood Gas Sample Site Radial, left; Blood Gas Sample Type Arterial; Carboxyhemoglobin 1.4 %THgb (0.4-20.1); HCO3 ABG 28.9 mmol/L (22-26); HGB O2 Sat 96.6 % (95-100); Ionized Calcium Level - ABG 1.1 mmol/L (1.1-1.4); Methemoglobin 1.1 % (0.4-1.5); Oxygen Device BIPAP; Potassium Level - ABG 3.6 mmol/L (3.5-5.0); Total Hemoglobin 9.2 g/dL (12-16)
[2021-07-18] MEDS: piperacillin-tazobactam 3.375 GM in sodium chloride 0.9% (plus) 50 ML IV ×2 (05:40→18:03)
[2021-07-18 06:41] LABS: Blood Urea Nitrogen 24 mg/dL (8-23); Calcium 7.6 mg/dL (8.5-10.5); Carbon Dioxide 22 mmol/L (22-29); Chloride 99 mmol/L (98-107); Glucose 87 mg/dL (65-115); Magnesium 1.6 mg/dL (1.7-2.3); Osmolality Calculated 285 mOsm/kg (285-295); Sodium 136 mmol/L (136-145)
[2021-07-18 06:42] LABS: Anion Gap 19.2 (5-19); Potassium 4.2 mmol/L (3.5-5.1)
[2021-07-18 06:43] LABS: Glucose Point of Care 109 mg/dL (70-110)
[2021-07-18] MEDS: linezolid premix 600 MG/300 ML PREMIX 300 MG IV ×2 (09:02→21:36)
[2021-07-18 09:16] LABS: Hematocrit 29.7 % (37.0-47.0); Hemoglobin 9.1 g/dL (11.5-15.3); Mean Corpuscular HGB Conc 30.6 g/dL (30.0-36.0); Mean Corpuscular Hemoglobin 30.4 pg (28.0-34.0); Mean Corpuscular Volume 99.3 fl (81-99); Mean Platelet Volume 11.8 fL (7.4-10.4); Platelet Count 139 10^3/cmm (130-400); Red Blood Count 2.99 10^6/uL (4.1-5.3); Red Cell Distribution Width 17.6 % (12.1-15.1); White Blood Count 10.9 10^3/uL (4.0-10.0)
[2021-07-18 09:30] LABS: Slide Review Slide Review Perform
[2021-07-18 09:37] LABS: Absolute Eosinophils 0.5 10^3/cmm (0.0-0.7); Absolute Segmented Neutrophil 7.6 10/cmm (1.6-7.1); Band Neutrophils Absolute 1.1 10^3/cmm (0.0-1.2); Eosinophils 5 %; Lymphocytes 12 %; Monocytes Absolute 0.3 10^3/cmm (0.1-0.6); Segmented Neutrophils 70 %; Total Cells Counted 100 (0-100)
[2021-07-18 09:38] LABS: Absolute Neutrophil 8.7 10^3/cmm (1.4-6.5); Burr Cells 1+; Lymphocytes Absolute 1.3 10^3/cmm (1.2-3.4); Platelet Estimate Decreased (Normal); Poikilocytosis 1+
[2021-07-18] MEDS: neomycin-poly-bacitracin oint 28 gm 1 APPLIC TOPICAL ×2 (11:08→18:08)
--- NOTE | 2021-07-18 12:01 | PM.PN ---
Subjective Subjective: Interval history: Seen this morning. Patient is alert awake and oriented. She does not offer any complaints. However she is refusing to work with physical therapy or get out into the chair. She appears a little demotivated and tired. She is now on 2 L nasal cannula saturating 96%. Patient has not really moved much for the last few days. Will be flipping her over today with help of nursing staff to examine her back. She does have some pus drainage at site of dialysis catheter insertion site and right femoral lesion. Left femoral region looks okay. I have ordered triple antibiotic ointment for the area. She is also on IV antibiotics right now. Aspirin will be stopped today and warfarin will be started. She had dialysis yesterday and 3 L were removed. Stat chest x-ray was done after dialysis and pleural effusions looked much improved. Decision was made not to do thoracentesis at it was a high risk procedure and it could easily be avoided since effusions were a lot better. Family was also updated over the phone. Vitals/I&O/Wt Last Vital Signs Temp 97.5 F L 07/18/21 11:43 Pulse 130 H 07/18/21 11:43 Resp 18 07/18/21 11:43 BP 118/78 07/18/21 11:43 Pulse Ox 99 07/18/21 11:43 07/17/21 07/18/21 07/18/21 22:59 06:59 14:59 Intake Total 410 / 1010 50 / 1060 110 / 110 Output Total 75 / 3375 Balance 410 / -2290 -25 / -2315 110 / 110 Weight last 48 hrs Weight 151.318 kg Weight 151.4 kg Physical Exam Narrative: EXAM NARRATIVE: General: Alert oriented x3, patient seen laying in bed on 2 L nasal cannula. Appears severely deconditioned. HEENT: Normocephalic, atraumatic, EOMI, Cardio: Irregularly irregular normal S1-S2, no gross murmurs. Chest dialysis catheter insertion site no longer oozing blood. Incision site looks clean and no longer bloody. Respiratory: Clear to auscultation anterior lung griffiths. Unable to auscultate posterior but bases are diminished. No crackles or rhonchi appreciated. GI: Abdomen soft, nontender, nondistended, bowel sounds +, obese rounded abdomen, no rash or ecchymosis present. Extremities: 1+ bilateral lower extremity edema present chronic venous stasis changes present, no cyanosis present. Right groin previous dialysis catheter insertion site has yellow pus draining with little wound. Triple antibiotic cream has been ordered. Left groin appears clean. Neuro exam: non focal, severely deconditioned, Urinary Catheter Management^: Acevedo: Cath Placed During This Visit: no Reason for Continuing Indwelling Catheter: Other Data : 07/18/21 09:07 07/18/21 04:58 Micro: Microbiology 07/16/21 23:35 MRSA Culture - Final Nose 07/16/21 23:35 Bacterial Antigens - Final Urine,Voided A&P Assessment and plan (1) Acute renal failure: Status: Acute (2) Acute renal failure superimposed on stage 3 chronic kidney disease: Status: Acute (3) CKD (chronic kidney disease): Status: Acute (4) Acute on chronic congestive heart failure: Status: Acute Qualifiers: Heart failure type: systolic Qualified Code(s): I50.23 - Acute on chronic systolic (congestive) heart failure (5) Atrial fibrillation with RVR: Status: Acute (6) Urine retention: Status: Acute (7) Orthostatic hypotension: Status: Acute (8) Atherosclerotic heart disease of [place] coronary artery with unstable angina pectoris: Status: Chronic Qualifiers: [place] vs. transplanted heart: [place] heart Qualified Code(s): I25.110 - Atherosclerotic heart disease of [place] coronary artery with unstable angina pectoris (9) Venous stasis: Status: Chronic (10) Dyslipidemia: Status: Chronic (11) Diabetes: Status: Acute Qualifiers: Chronic kidney disease stage: stage 3 (moderate) Chronic kidney disease stage 3 subtype: stage 3b (GFR 30-44) Diabetes mellitus complication detail: with chronic kidney disease Diabetes mellitus complication status: with kidney complications Diabetes mellitus intermediate manager insulin use: with intermediate manager use Diabetes mellitus type: type 2 Qualified Code(s): E11.22 - Type 2 diabetes mellitus with diabetic chronic kidney disease; N18.32 - Chronic kidney disease, stage 3b; Z79.4 - alf (current) use of insulin (12) Status post insertion of drug-eluting stent into left anterior descending (LAD) artery: Status: Acute (13) Warfarin-induced coagulopathy: Status: Acute Additional A&P Information #Altered Mental Status - resolved #Acute on chronic congestive heart failure 2/2 renal failure -resolved #Dialysis dependent Acute renal failure on CKD stage 3, etiology multifactorial - active issue #Chronic venous statis #Orthostatic hypotension, was previously on midodrine but has not required any since blood pressure is great. Will restart if pressure drops. #DLD #UTI, Olinda grew. #Atrial fibrillation, on warfarin -restart today #CAD s/p stent (recent 07/02/2021) #HTN #Hypothyroidism #DM #PVD #Thrombocytopenia #Generalized deconditioning and debilitated state #B/L pleural effusions #Possible LLL pneumonia?suspicion low. -Bilateral pleural effusions have improved significantly after 2 sessions of dialysis. Cardiothoracic surgery was consulted with initial plan to tap effusions but will no longer be doing so since patient has improved. She is back to baseline 2 L nasal cannula. ?We will continue to encourage patient to work with physical therapy however she is refusing at this time ?We will keep another day of linezolid and Zosyn for possible pneumonia although my suspicion is low at this point. Once IV antibiotics are off I will switch her to oral Augmentin. ?Order triple antibiotic cream for right groin area. -Stop aspirin and start warfarin. Discussed with pharmacy and they will be dosing. Discussed with Dr. Chaudhari over the phone. We will aim for INR 1.5-2 for her due to her high risk of bleed. - Deescalate O2 therapy as able. - Now dialysis dependent. Continue to dialyze as per nephro recs. Most likely she will be on a Friday schedule. I will discuss with nephrology to confirm. Code status: FULL CODE Family updated 07/17/2021. Attestations Medical Necessity Statement*: Greater than 48-hour stay. We will need to get INR in range prior to discharge. Coding Level of Care Code Acute Log Cutter for [facility] Fwd Diagnoses Acute renal failure N17.9 Acute renal failure superimposed on stage 3 chronic kidney disease N17.9; N18.30 CKD (chronic kidney disease) N18.9 Acute on chronic congestive heart failure I50.23 Heart failure type: systolic Atrial fibrillation with RVR I48.91 Urine retention R33.9 Orthostatic hypotension I95.1 Atherosclerotic heart disease of [place] coronary artery with unstable angina pectoris I25.110 [place] vs. transplanted heart: [place] heart Venous stasis I87.8 Dyslipidemia E78.5 Diabetes E11.22; N18.32; Z79.4 Chronic kidney disease stage: stage 3 (moderate) Chronic kidney disease stage 3 subtype: stage 3b (GFR 30-44) Diabetes mellitus complication detail: with chronic kidney disease Diabetes mellitus complication status: with kidney complications Diabetes mellitus intermediate manager insulin use: with intermediate manager use Diabetes mellitus type: type 2 Status post insertion of drug-eluting stent into left anterior descending (LAD) artery Z95.5 Warfarin-induced coagulopathy D68.32; T45.515A
[2021-07-18 12:10] LABS: Glucose Point of Care 114 mg/dL (70-110)
--- NOTE | 2021-07-18 12:31 | P.PN_ITS ---
Subjective Subjective: Interval history: Events the last 24 hours appreciated. Thoracentesis deferred given improvement in chest x-ray after ultrafiltration on dialysis. She is currently breathing comfortably on nasal cannula, is awake and interactive although she does appear very weak at this time. Medications: Reviewed: Yes Vitals/I&O/Wt Last Vital Signs Temp 97.5 F L 07/18/21 11:43 Pulse 130 H 07/18/21 11:43 Resp 18 07/18/21 11:43 BP 118/78 07/18/21 11:43 Pulse Ox 99 07/18/21 11:43 07/17/21 07/18/21 07/18/21 22:59 06:59 14:59 Intake Total 410 / 1010 50 / 1060 110 / 110 Output Total 75 / 3375 Balance 410 / -2290 -25 / -2315 110 / 110 Weight last 48 hrs Weight 151.318 kg Weight 151.4 kg Physical Exam Narrative: EXAM NARRATIVE: Constitutional: Awake, comfortable HEENT: Wet mucosa, no jvp, non icteric Lungs: Bilaterally clear without discernible wheeze or rales in all lung zones CVS: S1 S2, no murmurs Abdo: Soft, BS ok Ext 4: 2-3+ edema, peripheral perfusion with no cyanosis Neurological: Grossly non-focal Urinary Catheter Management^: Acevedo: Cath Placed During This Visit: no Reason for Continuing Indwelling Catheter: Other Data : 07/18/21 09:07 07/18/21 04:58 Micro: Microbiology 07/16/21 23:35 MRSA Culture - Final Nose 07/16/21 23:35 Bacterial Antigens - Final Urine,Voided A&P Additional A&P Information 1. Acute renal failure Dialysis seem to have helped the apparent pleural effusion. Typically dialysis and ultrafiltration does not assist pleural effusions immediately, however, if there is a significant interstitial component, this would certainly assist with this element. Plan to do more dialysis today and push ultrafiltration as much as hemodynamics can allow. Evaluation in the a.m. otherwise plan to do dialysis on Friday logistics planning manager to set up outpatient dialysis. She currently has a permacath. Strict I's and O's Dose medication for GFR less than 15 on dialysis 2. Chemistry well balanced 3. Hemodynamics appear stable now Exam and interview performed with aid of bedside RN using telemedicine Time spent 20 min inc > 50% of time in face to face counseling Corbin Sánchez MD [facility] [phone] Attestations Medical Necessity Statement*: eval for eSRD Coding Level of Care Code Acute Geophysical Laboratory Chief for Chg Jana
[2021-07-18 12:56] LABS: INR 1.22 (0.8-1.2)
--- NOTE | 2021-07-18 14:30 | PC.SOCIAL ---
IMM Update pg 2 of IMM updated and reviewed w/ patient. Copy provided.
[2021-07-18 17:26] LABS: Glucose Point of Care 102 mg/dL (70-110)
--- NOTE | 2021-07-18 20:18 | PC.NURSE ---
i reported low temp 97.4 to nurse
[2021-07-18 21:18] LABS: Glucose Point of Care 89 mg/dL (70-110)
[2021-07-19] VITALS (12 sets, daily range): BP systolic 96–133; BP diastolic 41–80; PULSE 65–101; RESP 15–30; TEMP 36.3–36.9; O2SAT 94–100
[2021-07-19] MEDS: piperacillin-tazobactam 3.375 GM in sodium chloride 0.9% (plus) 50 ML IV ×2 (01:09→09:44)
--- NOTE | 2021-07-19 03:47 | PC.NURSE ---
i reported low temp 97.5 and high pulse 101 to nurse
[2021-07-19 06:39] LABS: Basophils % 0.4 %; Eosinophils # 0.4 10^3/uL (0.0-0.8); Eosinophils % 3.9 %; Hematocrit 28.9 % (37.0-47.0); Hemoglobin 8.8 g/dL (11.5-15.3); Lymphocytes # 0.9 10^3/uL (0.8-4.8); Lymphocytes % 9.6 %; Mean Corpuscular HGB Conc 30.4 g/dL (30.0-36.0); Mean Corpuscular Hemoglobin 29.8 pg (28.0-34.0); Mean Platelet Volume 11.9 fL (7.4-10.4); Monocytes # 0.6 10^3/uL (0.2-0.9); Neutrophils # 7.27 10^3/uL (1.8-7.7); Neutrophils % 79.7 %; Nucleated Red Blood Cells # 0.1 /100WBC; Nucleated Red Blood Cells % 0.5 %; Platelet Count 181 10^3/cmm (130-400); Red Blood Count 2.95 10^6/uL (4.1-5.3); Red Cell Distribution Width 17.4 % (12.1-15.1); White Blood Count 9.1 10^3/uL (4.0-10.0)
[2021-07-19 06:45] LABS: Glucose Point of Care 101 mg/dL (70-110)
[2021-07-19 06:45] LABS: Glucose Point of Care 99 mg/dL (70-110)
[2021-07-19 06:51] LABS: Anion Gap 16.7 (5-19); Blood Urea Nitrogen 16 mg/dL (8-23); Calcium 8.3 mg/dL (8.5-10.5); Carbon Dioxide 25 mmol/L (22-29); Chloride 99 mmol/L (98-107); Glucose 90 mg/dL (65-115); Magnesium 1.6 mg/dL (1.7-2.3); Osmolality Calculated 285 mOsm/kg (285-295); Potassium 3.7 mmol/L (3.5-5.1); Sodium 137 mmol/L (136-145)
[2021-07-19 06:59] LABS: INR 1.22 (0.8-1.2)
[2021-07-19] MEDS: linezolid premix 600 MG/300 ML PREMIX 300 MG IV (08:24)
[2021-07-19] MEDS: acetaminophen 325 mg Tablet 650 MG PO ×2 (08:49→14:37)
[2021-07-19] MEDS: pantoprazole DR 40 mg Tablet PO (08:50)
[2021-07-19] MEDS: phenytoin ER 100 mg Capsule 200 MG PO ×2 (08:50→17:19)
[2021-07-19] MEDS: metoprolol tartrate 50 mg Tablet PO (08:51)
[2021-07-19] MEDS: clopidogrel 75 mg Tablet PO (08:51)
[2021-07-19] MEDS: neomycin-poly-bacitracin oint 28 gm 1 APPLIC TOPICAL ×2 (08:51→18:19)
--- NOTE | 2021-07-19 09:10 | ECG_ITS ---
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 Measurements Intervals [place] Rate: 84 P: GA: QRS: 107 QRSD: 124 T: 267 QT: 415 QTc: 493 Interpretive Statements ATRIAL FIBRILLATION RIGHT AXIS DEVIATION [QRS AXIS > 100] POSSIBLE ANTERIOR MYOCARDIAL INFARCTION , OF INDETERMINATE AGE [30 ms Q WAVE IN V3/V4, OR R < 0.2 mV IN V4] Compared to ECG 07/06/2021 07:13:37 No significant changes Electronically Signed On 07-19-2021 20:31:34 SCHOOL INSPECTOR by Rupinder Melchor M.D. [email or web address]
[2021-07-19] MEDS: ondansetron 2 mg/ML SDV 2 mL 4 MG IVP (09:44)
[2021-07-19] MEDS: levothyroxine 200 mcg Tablet PO (09:44)
--- NOTE | 2021-07-19 09:50 | PM.PN ---
Subjective Subjective: Interval history: No new issues with Ms. Lee today. She is breathing much more comfortably on low dose nasal cannula oxygen. Dialysis went well yesterday. No acute new issues. Blood pressure remains stable. Minimal urine output. Medications: Reviewed: Yes Vitals/I&O/Wt Last Vital Signs Temp 97.5 F L 07/19/21 07:34 Pulse 80 07/19/21 07:48 Resp 18 07/19/21 07:34 BP 110/62 07/19/21 07:34 Pulse Ox 100 07/19/21 07:48 07/18/21 07/19/21 07/19/21 22:59 06:59 14:59 Intake Total 650 / 1060 130 / 1190 60 / 60 Output Total 3305 / 3305 30 / 3335 Balance -2655 / -2245 100 / -2145 60 / 60 Weight last 48 hrs Weight 145.649 kg Weight 146 kg Weight 151.318 kg Weight 151.4 kg Physical Exam Narrative: EXAM NARRATIVE: Constitutional: Awake, comfortable HEENT: Wet mucosa, no jvp, non icteric Lungs: Bilaterally clear without discernible wheeze or rales in all lung zones CVS: S1 S2, no murmurs Abdo: Soft, BS ok Ext 4: 2-3+ edema, peripheral perfusion with no cyanosis Neurological: Grossly non-focal Urinary Catheter Management^: Acevedo: Cath Placed During This Visit: no Reason for Continuing Indwelling Catheter: Other Data : 07/19/21 05:51 07/19/21 05:51 A&P Additional A&P Information 1. Acute renal failure Dialysis seem to have helped the apparent pleural effusion. Typically dialysis and ultrafiltration does not assist pleural effusions immediately, however, if there is a significant interstitial component, this would certainly assist with this element. Dialysis tomorrow 3K, UF 2-3L water resource project manager to set up outpatient dialysis. She currently has a permacath. Strict I's and O's Dose medication for GFR less than 15 on dialysis 2. Chemistry well balanced 3. Hemodynamics appear stable now 4. Disposition DC planning under way Exam and interview performed with aid of bedside RN using telemedicine Time spent 20 min inc > 50% of time in face to face counseling Corbin Sánchez MD [facility] Renal Care [phone] Attestations Medical Necessity Statement*: Eval for ESRD mgmt Coding Level of Care Code Acute Wafer Cleaner for Sosa Bates
[2021-07-19 11:03] LABS: Glucose Point of Care 136 mg/dL (70-110)
--- NOTE | 2021-07-19 11:07 | P.PN_ITS ---
Subjective Subjective: Interval history: Seen this AM. No acute events overnight. She refused her medications yesterday including her plavix. She also had an episode of vomiting today which was mainly yellow liquid. She has not had much to eat yesterday. Back was examined yesterday but no major ulcers seen. She does have a few tiny stage 1 spots which will be covered with alevyn. Dialysis removed 3L fluid yesterday. Vitals/I&O/Wt Last Vital Signs Temp 97.5 F L 07/19/21 07:34 Pulse 80 07/19/21 07:48 Resp 18 07/19/21 07:34 BP 110/62 07/19/21 07:34 Pulse Ox 100 07/19/21 07:48 07/18/21 07/19/21 07/19/21 22:59 06:59 14:59 Intake Total 650 / 1060 130 / 1190 360 / 360 Output Total 3305 / 3305 30 / 3335 0 / 0 Balance -2655 / -2245 100 / -2145 360 / 360 Weight last 48 hrs Weight 145.649 kg Weight 146 kg Weight 151.318 kg Weight 151.4 kg Physical Exam Narrative: EXAM NARRATIVE: General: Alert oriented x3, patient seen laying in bed on 1 L nasal cannula. Appears severely deconditioned. She says she is nauseated. HEENT: Normocephalic, atraumatic, EOMI, Cardio: Irregularly irregular normal S1-S2, no gross murmurs. Chest dialysis catheter insertion site no longer oozing blood. Incision site looks clean and no longer bloody. Respiratory: Clear to auscultation anterior lung griffiths. Unable to auscultate posterior but bases are diminished. No crackles or rhonchi appreciated. GI: Abdomen soft, nontender, nondistended, bowel sounds +, obese rounded abdomen, no rash or ecchymosis present. Extremities: 1+ bilateral lower extremity edema present chronic venous stasis changes present, no cyanosis present. Wrinkling seen on feet today. Right groin previous dialysis catheter insertion site has yellow pus draining with little wound. Triple antibiotic cream has been ordered. Left groin appears clean. Neuro exam: non focal, severely deconditioned, Urinary Catheter Management^: Acevedo: Cath Placed During This Visit: yes, but has since been removed by the nurse Reason for Continuing Indwelling Catheter: Decision to DC Catheter Date Urinary Catheter Removed: 07/19/21 Time Urinary Catheter Discontinued: 11:06 Data : 07/19/21 05:51 07/19/21 05:51 A&P Assessment and plan (1) Acute renal failure: Status: Acute (2) Acute renal failure superimposed on stage 3 chronic kidney disease: Status: Acute (3) CKD (chronic kidney disease): Status: Acute (4) Acute on chronic congestive heart failure: Status: Acute Qualifiers: Heart failure type: systolic Qualified Code(s): I50.23 - Acute on chronic systolic (congestive) heart failure (5) Atrial fibrillation with RVR: Status: Acute (6) Urine retention: Status: Acute (7) Orthostatic hypotension: Status: Acute (8) Atherosclerotic heart disease of [place] coronary artery with unstable angina pectoris: Status: Chronic Qualifiers: [place] vs. transplanted heart: [place] heart Qualified Code(s): I25.110 - Atherosclerotic heart disease of [place] coronary artery with unstable angina pectoris (9) Venous stasis: Status: Chronic (10) Dyslipidemia: Status: Chronic (11) Diabetes: Status: Acute Qualifiers: Chronic kidney disease stage: stage 3 (moderate) Chronic kidney disease stage 3 subtype: stage 3b (GFR 30-44) Diabetes mellitus complication detail: with chronic kidney disease Diabetes mellitus complication status: with kidney complications Diabetes mellitus tank terminal gauger insulin use: with prison use Diabetes mellitus type: type 2 Qualified Code(s): E11.22 - Type 2 diabetes mellitus with diabetic chronic kidney disease; N18.32 - Chronic kidney disease, stage 3b; Z79.4 - half-way (current) use of insulin (12) Status post insertion of drug-eluting stent into left anterior descending (LAD) artery: Status: Acute (13) Warfarin-induced coagulopathy: Status: Acute Additional A&P Information #Altered Mental Status - resolved #Acute on chronic congestive heart failure 2/2 renal failure -resolved #Dialysis dependent Acute renal failure on CKD stage 3, etiology multifactorial - active issue #Chronic venous statis #Orthostatic hypotension, was previously on midodrine but has not required any since blood pressure is great. Will restart if pressure drops. #DLD #UTI, Olinda grew. #Atrial fibrillation, on warfarin -restart today #CAD s/p stent (recent 07/02/2021) #HTN #Hypothyroidism #DM #PVD #Thrombocytopenia #Generalized deconditioning and debilitated state #B/L pleural effusions #Possible LLL pneumonia?suspicion low. -Bilateral pleural effusions have improved significantly after 2 sessions of dialysis. Cardiothoracic surgery was consulted with initial plan to tap effusions but will no longer be doing so since patient has improved. She is back to baseline 2 L nasal cannula. Today on 1L NC. ?We will continue to encourage patient to work with physical therapy however she has been refusing. Today she was able to get into a chair. She was counselled on the importance of mobilizing and getting into chair and e ating to get better. ?I will stop IV ABX and switch her to oral augmentin for total of 7 days. ?Order triple antibiotic cream for right groin area. -Stop aspirin and start warfarin. Discussed with pharmacy and they will be dosing. Discussed with Dr. Chaudhari over the phone. We will aim for INR 1.5-2 for her due to her high risk of bleed.She refused her warfarin yesterday. Will attempt to give her a dose today. - Deescalate O2 therapy as able. - Now dialysis dependent. Continue to dialyze as per nephro recs. Most likely she will be on a Friday schedule. I will discuss with nephrology to confirm. Code status: FULL CODE Family updated 07/18/2021. Attestations Medical Necessity Statement*: > 24 hours. Need INR to be 1.5-2 range before discharge. Coding Level of Care Code Acute Hostess Host for [facility] Fwd Diagnoses Acute renal failure N17.9 Acute renal failure superimposed on stage 3 chronic kidney disease N17.9; N18.30 CKD (chronic kidney disease) N18.9 Acute on chronic congestive heart failure I50.23 Heart failure type: systolic Atrial fibrillation with RVR I48.91 Urine retention R33.9 Orthostatic hypotension I95.1 Atherosclerotic heart disease of [place] coronary artery with unstable angina pectoris I25.110 [place] vs. transplanted heart: [place] heart Venous stasis I87.8 Dyslipidemia E78.5 Diabetes E11.22; N18.32; Z79.4 Chronic kidney disease stage: stage 3 (moderate) Chronic kidney disease stage 3 subtype: stage 3b (GFR 30-44) Diabetes mellitus complication detail: with chronic kidney disease Diabetes mellitus complication status: with kidney complications Diabetes mellitus tank terminal gauger insulin use: with tank terminal gauger use Diabetes mellitus type: type 2 Status post insertion of drug-eluting stent into left anterior descending (LAD) artery Z95.5 Warfarin-induced coagulopathy D68.32; T45.515A
[2021-07-19] MEDS: warfarin 3 mg Tablet 1.5 MG PO (14:36)
--- NOTE | 2021-07-19 15:40 | PC.NURSE ---
Meds Yesterday morning pt refused to take her meds then in evening pt came back from Dialysis lethargic and was unable to take her evening meds from dayshift. was notified.
[2021-07-19 17:09] LABS: Glucose Point of Care 105 mg/dL (70-110)
[2021-07-19] MEDS: amoxicillin-clav 875-125 mg Tablet 1 TAB PO (17:19)
[2021-07-19 19:09] LABS: Adenovirus Not Detected (NOT DETECT); Chlamydia Pneumoniae Not Detected (NOT DETECT); Coronavirus 229E,HKU1,NL63,OC4 Not Detected (NOT DETECT); Human Metapneumovirus Not Detected (NOT DETECT); Human Rhinovirus/Enterovirus Not Detected (NOT DETECT); Influenza A Not Detected (NOT DETECT); Influenza A H1 Not Detected (NOT DETECT); Influenza A H1-2009 Not Detected (NOT DETECT); Influenza A H3 Not Detected (NOT DETECT); Influenza B Not Detected (NOT DETECT); Mycoplasma Pneumoniae Not Detected (NOT DETECT); Parainfluenza Virus Type 1 Not Detected (NOT DETECT); Parainfluenza Virus Type 2 Not Detected (NOT DETECT); Parainfluenza Virus Type 3 Not Detected (NOT DETECT); Parainfluenza Virus Type 4 Not Detected (NOT DETECT); Respiratory Syncytial Virus A Not Detected (NOT DETECT); Respiratory Syncytial Virus B Not Detected (NOT DETECT); SARS-COV-2 Not Detected (NOT DETECT)
[2021-07-19] MEDS: atorvastatin 40 mg Tablet 80 MG PO (20:20)
[2021-07-19 21:08] LABS: Glucose Point of Care 140 mg/dL (70-110)
[2021-07-20] VITALS (13 sets, daily range): BP systolic 94–112; BP diastolic 47–69; PULSE 61–107; RESP 14–19; TEMP 35.6–36.8; O2SAT 93–100
[2021-07-20 03:12] LABS: UFH High Dose, 100 IU/ML 6 % release; UFH Low Dose, 0.1 IU/ML 8 % release; UFH Low Dose, 0.5 IU/ML 4 % release; UFH SRA Result NEGATIVE (NEGATIVE)
[2021-07-20] MEDS: levothyroxine 50 mcg Tablet PO ×2 (05:55→08:03)
[2021-07-20 07:03] LABS: Basophils # 0.1 10^3/uL (0.0-0.1); Basophils % 0.6 %; Eosinophils # 0.7 10^3/uL (0.0-0.8); Eosinophils % 8.2 %; Hematocrit 27.9 % (37.0-47.0); Hemoglobin 8.4 g/dL (11.5-15.3); Mean Corpuscular HGB Conc 30.1 g/dL (30.0-36.0); Mean Corpuscular Hemoglobin 30.3 pg (28.0-34.0); Mean Corpuscular Volume 100.7 fl (81-99); Mean Platelet Volume 11.8 fL (7.4-10.4); Monocytes # 0.6 10^3/uL (0.2-0.9); Monocytes % 6.6 %; Neutrophils # 6.05 10^3/uL (1.8-7.7); Neutrophils % 72.1 %; Nucleated Red Blood Cells % 0.5 %; Platelet Count 188 10^3/cmm (130-400); Red Blood Count 2.77 10^6/uL (4.1-5.3); Red Cell Distribution Width 17.7 % (12.1-15.1); White Blood Count 8.4 10^3/uL (4.0-10.0)
[2021-07-20 07:12] LABS: INR 1.19 (0.8-1.2)
[2021-07-20 07:24] LABS: Anion Gap 15.5 (5-19); Blood Urea Nitrogen 19 mg/dL (8-23); Calcium 8.1 mg/dL (8.5-10.5); Carbon Dioxide 24 mmol/L (22-29); Chloride 102 mmol/L (98-107); Glucose 79 mg/dL (65-115); Magnesium 1.6 mg/dL (1.7-2.3); Osmolality Calculated 287 mOsm/kg (285-295); Potassium 3.5 mmol/L (3.5-5.1); Sodium 138 mmol/L (136-145)
[2021-07-20 07:45] LABS: Glucose Point of Care 96 mg/dL (70-110)
[2021-07-20] MEDS: metoprolol tartrate 50 mg Tablet PO ×2 (08:03→20:23)
[2021-07-20] MEDS: amoxicillin-clav 875-125 mg Tablet 1 TAB PO ×2 (08:03→17:07)
[2021-07-20] MEDS: phenytoin ER 100 mg Capsule 200 MG PO ×2 (08:03→17:07)
[2021-07-20] MEDS: clopidogrel 75 mg Tablet PO (08:03)
[2021-07-20] MEDS: pantoprazole DR 40 mg Tablet PO (08:03)
[2021-07-20] MEDS: levothyroxine 200 mcg Tablet PO (08:07)
[2021-07-20] MEDS: neomycin-poly-bacitracin oint 28 gm 1 APPLIC TOPICAL ×2 (08:08→17:10)
--- NOTE | 2021-07-20 11:04 | PC.SOCIAL ---
IMM update IMM updated with patient. Copy Pg 2 provided. Initialled, dated, timed, and placed in chart.
[2021-07-20 11:05] LABS: Glucose Point of Care 91 mg/dL (70-110)
[2021-07-20] MEDS: acetaminophen 325 mg Tablet 650 MG PO (11:15)
--- NOTE | 2021-07-20 11:21 | P.PN_ITS ---
Subjective Subjective: Interval history: No new issues today. She is seen and examined on hemodialysis. She is currently comfortable. She is not making much urine. Acevedo catheter removed yesterday. Hemodynamics reviewed and remained stable. Medications: Reviewed: Yes Vitals/I&O/Wt Last Vital Signs Temp 96.1 F L 07/20/21 10:00 Pulse 66 07/20/21 10:00 Resp 16 07/20/21 10:00 BP 94/47 07/20/21 10:00 Pulse Ox 93 07/20/21 08:20 07/19/21 07/20/21 07/20/21 22:59 06:59 14:59 Intake Total 240 / 650 120 / 770 Output Total 0 / 0 Balance 240 / 650 120 / 770 Weight last 48 hrs Weight 146.42 kg Weight 146.057 kg Weight 145.649 kg Weight 146 kg Physical Exam Narrative: EXAM NARRATIVE: Constitutional: Awake, comfortable HEENT: Wet mucosa, no jvp, non icteric Lungs: Bilaterally clear without discernible wheeze or rales in all lung zones CVS: S1 S2, no murmurs Abdo: Soft, BS ok Ext 4: 2-3+ edema, peripheral perfusion with no cyanosis Neurological: Grossly non-focal Urinary Catheter Management^: Acevedo: Cath Placed During This Visit: yes, but has since been removed by the nurse Reason for Continuing Indwelling Catheter: Decision to DC Catheter Date Urinary Catheter Removed: 07/19/21 Time Urinary Catheter Discontinued: 11:06 Data : 07/20/21 06:31 07/20/21 06:31 A&P Additional A&P Information 1. Acute renal failure Seen on dialysis 3K, UF 2-3L equipment hire manager to set up outpatient dialysis. She currently has a permacath. Strict I's and O's Dose medication for GFR less than 15 on dialysis 2. Chemistry well balanced 3. Hemodynamics appear stable now 4. Disposition DC planning under way; ok to be discharged when outpatient is set up Exam and interview performed with aid of bedside RN using telemedicine Time spent 20 min inc > 50% of time in face to face counseling Corbin Sánchez MD [facility] Renal Care [phone] Attestations Medical Necessity Statement*: Eval for ESRD mgmt Coding Level of Care Code Acute Cardroom Drawing Runner for Katerineg Jana
--- NOTE | 2021-07-20 12:00 | PC.OT ---
OT tx attempted several times this a.m. Pt out of room receiving dialysis. Will attempt tx again later if possible.
[2021-07-20] MEDS: warfarin 2 mg Tablet PO (13:17)
--- NOTE | 2021-07-20 13:24 | P.PN_ITS ---
Subjective Subjective: Interval history: Seen this morning. She was seen in dialysis this morning. Mentation is very good today and she looks very happy. She does complain of right buttock pain and would like a pillow placed there. INR 1.19 today. Vitals/I&O/Wt Last Vital Signs Temp 96.4 F L 07/20/21 12:47 Pulse 65 07/20/21 12:47 Resp 16 07/20/21 12:47 BP 97/51 07/20/21 12:47 Pulse Ox 93 07/20/21 08:20 07/19/21 07/20/21 07/20/21 22:59 06:59 14:59 Intake Total 240 / 650 120 / 770 300 / 300 Output Total 0 / 0 3300 / 3300 Balance 240 / 650 120 / 770 -3000 / -3000 Weight last 48 hrs Weight 145.5 kg Weight 146.42 kg Weight 146.057 kg Weight 145.649 kg Weight 146 kg Physical Exam Narrative: EXAM NARRATIVE: General: Alert oriented x3, patient seen laying in bed on 1 L nasal cannula. Appears happy and appears happy and well today HEENT: Normocephalic, atraumatic, EOMI, Cardio: Irregularly irregular normal S1-S2, no gross murmurs. Chest dialysis catheter insertion site no longer oozing blood. Incision site looks clean and no longer bloody. Respiratory: Clear to auscultation anterior lung griffiths. GI: Abdomen soft, nontender, nondistended, bowel sounds +, obese rounded abdomen Extremities: 1+ bilateral lower extremity edema present chronic venous stasis changes present, no cyanosis present. Wrinkling present. Urinary Catheter Management^: Acevedo: Cath Placed During This Visit: yes, but has since been removed by the nurse Reason for Continuing Indwelling Catheter: Decision to DC Catheter Date Urinary Catheter Removed: 07/19/21 Time Urinary Catheter Discontinued: 11:06 Data : 07/20/21 06:31 07/20/21 06:31 A&P Assessment and plan (1) Acute renal failure: Status: Acute (2) Acute renal failure superimposed on stage 3 chronic kidney disease: Status: Acute (3) CKD (chronic kidney disease): Status: Acute (4) Acute on chronic congestive heart failure: Status: Acute Qualifiers: Heart failure type: systolic Qualified Code(s): I50.23 - Acute on chronic systolic (congestive) heart failure (5) Atrial fibrillation with RVR: Status: Acute (6) Urine retention: Status: Acute (7) Orthostatic hypotension: Status: Acute (8) Atherosclerotic heart disease of [place] coronary artery with unstable angina pectoris: Status: Chronic Qualifiers: [place] vs. transplanted heart: [place] heart Qualified Code(s): I25.110 - Atherosclerotic heart disease of [place] coronary artery with unstable angina pectoris (9) Venous stasis: Status: Chronic (10) Dyslipidemia: Status: Chronic (11) Diabetes: Status: Acute Qualifiers: Chronic kidney disease stage: stage 3 (moderate) Chronic kidney disease stage 3 subtype: stage 3b (GFR 30-44) Diabetes mellitus complication detail: with chronic kidney disease Diabetes mellitus complication status: with kidney complications Diabetes mellitus associate professor of medicine insulin use: with penitentiary use Diabetes mellitus type: type 2 Qualified Code(s): E11.22 - Type 2 diabetes mellitus with diabetic chronic kidney disease; N18.32 - Chronic kidney disease, stage 3b; Z79.4 - alf (current) use of insulin (12) Status post insertion of drug-eluting stent into left anterior descending (LAD) artery: Status: Acute (13) Warfarin-induced coagulopathy: Status: Acute Additional A&P Information #Altered Mental Status - resolved #Acute on chronic congestive heart failure 2/2 renal failure -resolved #Dialysis dependent Acute renal failure on CKD stage 3, etiology multifactorial - active issue #Chronic venous statis #Orthostatic hypotension, was previously on midodrine but has not required any since blood pressure is great. Will restart if pressure drops. #DLD #UTI, [place] grew. #Atrial fibrillation, on warfarin -restart today #CAD s/p stent (recent 07/02/2021) #HTN #Hypothyroidism #DM #PVD #Thrombocytopenia #Generalized deconditioning and debilitated state #B/L pleural effusions #Possible LLL pneumonia?suspicion low. -We will repeat chest x-ray in AM to re-assess pleural effusions ?She did get into a chair yesterday. Continue to work with PT. - Continue augmentin for 7 days total. ?Continue triple antibiotic cream for right groin area. - Acevedo removed yesterday 07/19. -Aspirin stopped. Warfarin started. We will aim for INR 1.5-2 for her due to her high risk of bleed. (discussed this with cardiology). - Now dialysis dependent. Continue to dialyze as per nephro recs. Will need dialysis Friday schedule. Code status: FULL CODE Family updated 07/18/2021. Attestations Medical Necessity Statement*: Awaiting INR to be in 1.5-2 range. 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 transplanted heart: [place] heart Venous stasis I87.8 Dyslipidemia E78.5 Diabetes E11.22; N18.32; Z79.4 Chronic kidney disease stage: stage 3 (moderate) Chronic kidney disease stage 3 subtype: stage 3b (GFR 30-44) Diabetes mellitus complication detail: with chronic kidney disease Diabetes mellitus complication status: with kidney complications Diabetes mellitus associate professor of medicine insulin use: with associate professor of medicine use Diabetes mellitus type: type 2 Status post insertion of drug-eluting stent into left anterior descending (LAD) artery Z95.5 Warfarin-induced coagulopathy D68.32; T45.515A
[2021-07-20 17:00] LABS: Glucose Point of Care 113 mg/dL (70-110)
[2021-07-20] MEDS: atorvastatin 40 mg Tablet 80 MG PO (20:23)
[2021-07-20 21:24] LABS: Glucose Point of Care 121 mg/dL (70-110)
[2021-07-21] VITALS (8 sets, daily range): BP systolic 105–116; BP diastolic 58–73; PULSE 62–87; RESP 16–18; TEMP 36.1–36.6; O2SAT 95–100
[2021-07-21 06:04] LABS: Basophils # 0.1 10^3/uL (0.0-0.1); Basophils % 0.7 %; Eosinophils # 0.9 10^3/uL (0.0-0.8); Eosinophils % 11.6 %; Hematocrit 27.4 % (37.0-47.0); Hemoglobin 8.4 g/dL (11.5-15.3); Lymphocytes # 0.9 10^3/uL (0.8-4.8); Lymphocytes % 12.3 %; Mean Corpuscular HGB Conc 30.7 g/dL (30.0-36.0); Mean Corpuscular Hemoglobin 30.7 pg (28.0-34.0); Mean Platelet Volume 11.9 fL (7.4-10.4); Monocytes # 0.8 10^3/uL (0.2-0.9); Monocytes % 10.2 %; Neutrophils # 4.95 10^3/uL (1.8-7.7); Neutrophils % 64.7 %; Nucleated Red Blood Cells % 0.5 %; Platelet Count 187 10^3/cmm (130-400); Red Blood Count 2.74 10^6/uL (4.1-5.3); Red Cell Distribution Width 18.2 % (12.1-15.1); White Blood Count 7.7 10^3/uL (4.0-10.0)
[2021-07-21] MEDS: clopidogrel 75 mg Tablet PO (09:51)
[2021-07-21] MEDS: pantoprazole DR 40 mg Tablet PO (09:51)
[2021-07-21] MEDS: phenytoin ER 100 mg Capsule 200 MG PO ×2 (09:52→17:47)
[2021-07-21] MEDS: levothyroxine 200 mcg Tablet PO (09:52)
[2021-07-21] MEDS: amoxicillin-clav 875-125 mg Tablet 1 TAB PO ×2 (09:52→17:47)
--- NOTE | 2021-07-21 10:35 | P.PN_ITS ---
Subjective Subjective: Interval history: Feels much better. Breathing comfortably. Swelling improving but still present in her lower extremities. No uremic Sx. Minimal urine output Medications: Reviewed: Yes Vitals/I&O/Wt Last Vital Signs Temp 97 F L 07/21/21 08:00 Pulse 69 07/21/21 08:00 Resp 16 07/21/21 08:00 BP 105/70 07/21/21 08:00 Pulse Ox 98 07/21/21 08:00 07/20/21 07/21/21 07/21/21 22:59 06:59 14:59 Intake Total 360 / 900 100 / 1000 Balance 360 / -2400 100 / -2300 Weight last 48 hrs Weight 145.5 kg Weight 146.42 kg Weight 146.057 kg Physical Exam Narrative: EXAM NARRATIVE: Constitutional: Awake, comfortable HEENT: Wet mucosa, no jvp, non icteric Lungs: Bilaterally clear without discernible wheeze or rales in all lung zones CVS: S1 S2, no murmurs Abdo: Soft, BS ok Ext 4: 2-3+ edema, peripheral perfusion with no cyanosis Neurological: Grossly non-focal Urinary Catheter Management^: Acevedo: Cath Placed During This Visit: yes, but has since been removed by the nurse Reason for Continuing Indwelling Catheter: Decision to DC Catheter Date Urinary Catheter Removed: 07/19/21 Time Urinary Catheter Discontinued: 11:06 Data : 07/21/21 05:04 07/20/21 06:31 A&P Additional A&P Information 1. 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 She currently has a permacath. Strict I's and O's Dose medication for GFR less than 15 on dialysis Will add Bumex. If cardiorenal is dominant pathology she may have the potential for some recovery of renal function 2. Chemistry well balanced 3. Hemodynamics appear stable now 4. Disposition DC planning under way; ok to be discharged when outpatient is set up Exam and interview performed with aid of bedside RN using telemedicine Time spent 20 min inc > 50% of time in face to face counseling Corbin Sánchez MD [facility] Renal Care [phone] Attestations Medical Necessity Statement*: eval for TIFFANY Coding Level of Care Code Acute Charter And Tour Bus Driver for Chg Jana
[2021-07-21] MEDS: bumetanide 1 mg Tablet 2 MG PO (11:00)
[2021-07-21] MEDS: neomycin-poly-bacitracin oint 28 gm 1 APPLIC TOPICAL ×2 (11:01→17:47)
[2021-07-21 11:48] LABS: Glucose Point of Care 110 mg/dL (70-110)
--- NOTE | 2021-07-21 13:28 | PM.PN ---
Subjective Subjective: Interval history: Seen this morning. Patient is seen talking on the phone and allowed clear voice and very perked up. She feels energetic and appears energetic compared to before as well. I have encouraged her to get into the chair today and try to mobilize herself to the best of her ability. We did agree that she will not overexert more than she can handle. Patient had dialysis yesterday and will be going for her neck session on Friday. INR is 1.3 today. Vitals/I&O/Wt Last Vital Signs Temp 97 F L 07/21/21 11:12 Pulse 87 07/21/21 11:12 Resp 18 07/21/21 11:12 BP 111/71 07/21/21 11:12 Pulse Ox 95 07/21/21 11:12 07/20/21 07/21/21 07/21/21 22:59 06:59 14:59 Intake Total 360 / 900 100 / 1000 360 / 360 Balance 360 / -2400 100 / -2300 360 / 360 Weight last 48 hrs Weight 145.5 kg Weight 146.42 kg Weight 146.057 kg Physical Exam Narrative: EXAM NARRATIVE: General: Alert oriented x3, patient seen laying in bed on 1 L nasal cannula. HEENT: Normocephalic, atraumatic, EOMI, Cardio: Irregularly irregular normal S1-S2, no gross murmurs. Dialysis catheter in place Respiratory: Clear to auscultation anterior lung griffiths. Much better air entry compared to prior days. GI: Abdomen soft, nontender, nondistended, bowel sounds +, obese rounded abdomen Extremities: 1+ bilateral lower extremity edema present chronic venous stasis changes present, no cyanosis present. Wrinkling present. Urinary Catheter Management^: Acevedo: Cath Placed During This Visit: yes, but has since been removed by the nurse Reason for Continuing Indwelling Catheter: Decision to DC Catheter Date Urinary Catheter Removed: 07/19/21 Time Urinary Catheter Discontinued: 11:06 Data : 07/21/21 05:04 07/20/21 06:31 A&P Assessment and plan (1) Acute renal failure: Status: Acute (2) Acute renal failure superimposed on stage 3 chronic kidney disease: Status: Acute (3) CKD (chronic kidney disease): Status: Acute (4) Acute on chronic congestive heart failure: Status: Acute Qualifiers: Heart failure type: systolic Qualified Code(s): I50.23 - Acute on chronic systolic (congestive) heart failure (5) Atrial fibrillation with RVR: Status: Acute (6) Urine retention: Status: Acute (7) Orthostatic hypotension: Status: Acute (8) Atherosclerotic heart disease of [place] coronary artery with unstable angina pectoris: Status: Chronic Qualifiers: [place] vs. transplanted heart: eagle heart Qualified Code(s): I25.110 - Atherosclerotic heart disease of [place] coronary artery with unstable angina pectoris (9) Venous stasis: Status: Chronic (10) Dyslipidemia: Status: Chronic (11) Diabetes: Status: Acute Qualifiers: Chronic kidney disease stage: stage 3 (moderate) Chronic kidney disease stage 3 subtype: stage 3b (GFR 30-44) Diabetes mellitus complication detail: with chronic kidney disease Diabetes mellitus complication status: with kidney complications Diabetes mellitus prison insulin use: with prison use Diabetes mellitus type: type 2 Qualified Code(s): E11.22 - Type 2 diabetes mellitus with diabetic chronic kidney disease; N18.32 - Chronic kidney disease, stage 3b; 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 Will restart if pressure drops. #DLD #UTI, [place] grew. #Atrial fibrillation, on warfarin -restart today #CAD s/p stent (recent 07/02/2021) #HTN #Hypothyroidism #DM #PVD #Thrombocytopenia?resolved #Generalized deconditioning and debilitated state #B/L pleural effusions #Possible LLL pneumonia?suspicion low - Continue to work with PT. - Continue augmentin for 7 days total. ?Continue triple antibiotic cream for right groin area. - Acevedo removed yesterday 07/19. -Aspirin stopped. Warfarin started. We will aim for INR 1.5-2 for her due to her high risk of bleed. (discussed this with cardiology). INR 1.3 today. - Now dialysis dependent. Continue to dialyze as per nephro recs. Will need dialysis Friday schedule. -[facility] once INR is 1.5. Code status: FULL CODE Family updated 07/20/2021. Attestations Medical Necessity Statement*: Greater than 24 hours today. Must wait until INR is therapeutic for her and then she was [facility] back [facility] the prison. 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
[2021-07-21] MEDS: warfarin 2 mg Tablet PO (14:49)
[2021-07-21 17:26] LABS: Glucose Point of Care 128 mg/dL (70-110)
[2021-07-21] MEDS: metoprolol tartrate 50 mg Tablet PO (20:50)
[2021-07-21] MEDS: atorvastatin 40 mg Tablet 80 MG PO (20:50)
[2021-07-21 22:10] LABS: Glucose Point of Care 172 mg/dL (70-110)
[2021-07-22] VITALS: BP 130/60; PULSE 72; RESP 16; TEMP 36.4; O2SAT 94
[2021-07-22 04:00] VITALS: BP 103/61; PULSE 74; RESP 17; TEMP 36.8; O2SAT 100
[2021-07-22] MEDS: ondansetron 2 mg/ML SDV 2 mL 4 MG IVP (05:27)
[2021-07-22] MEDS: levothyroxine 50 mcg Tablet PO (05:48)
[2021-07-22 06:44] LABS: Glucose Point of Care 130 mg/dL (70-110)
--- NOTE | 2021-07-22 06:57 | P.PN_ITS ---
Subjective Subjective: Interval history: feels better. no sob. appetite slowly improving. weak. Medications: Reviewed: Yes Medication Review Details: Current Medications Acetaminophen (Acetaminophen 325 Mg Tablet) 650 mg PO Q4H PRN PRN Reason: Temperature greater than 100.5 Last Admin: 07/20/21 11:15 Dose: 650 mg Documented by: Albuterol Sulfate (Albuterol 2.5 Mg/0.5 Ml Neb) 2.5 mg INHALATION Q4H.RESPIRATORY PRN PRN Reason: SHORTNESS OF BREATH Amoxicillin/Clavulanate Potassium (Amoxicillin-Clav 875-125 Mg Tablet) 1 tab PO BID [facility]; Protocol Stop: 07/26/21 17:59 Last Admin: 07/21/21 17:47 Dose: 1 tab Documented by: Artificial Tears (Artificial Tears Op Soln 15 Ml Btl) 2 drop EYE-BOTH Q2H PRN PRN Reason: DRY EYE(S) Atorvastatin Calcium (Atorvastatin 40 Mg Tablet) 80 mg PO BEDTIME@20 [facility] Last Admin: 07/21/21 20:50 Dose: 80 mg Documented by: Atropine Sulfate (Atropine 1% Op Soln 5 Ml Btl) 3 drop SUBLINGUAL Q4H PRN PRN Reason: Excessive Secretions, Rattling Bisacodyl (Bisacodyl 10 Mg Supp) 10 mg NC DAILY PRN PRN Reason: Constipation Bumetanide (Bumetanide 1 Mg Tablet) 2 mg PO DAILY [facility] Last Admin: 07/21/21 11:00 Dose: 2 mg Documented by: Clopidogrel Bisulfate (Clopidogrel 75 Mg Tablet) 75 mg PO DAILY [facility] Last Admin: 07/21/21 09:51 Dose: 75 mg Documented by: Diphenhydramine HCl (Diphenhydramine 25 Mg Capsule) 25 mg PO Q4H PRN PRN Reason: ITCHING Glycerin (Glycerin Adult Supp) 1 each NC DAILY PRN PRN Reason: CONSTIPATION Glycopyrrolate (Glycopyrrolate 0.2 Mg/Ml Sdv 2 Ml) 0.2 mg IV Q4H PRN PRN Reason: Excessive Secretions, Rattling Lanolin (Lanolin Oint 7 Gm) 1 applic TOPICAL PRN PRN PRN Reason: DRYNESS Levothyroxine Sodium (Levothyroxine 200 Mcg Tablet) 200 mcg PO DAILY [facility] Last Admin: 07/21/21 09:52 Dose: 200 mcg Documented by: Levothyroxine Sodium (Levothyroxine 50 Mcg Tablet) 50 mcg PO QAM [facility] Last Admin: 07/22/21 05:48 Dose: 50 mcg Documented by: Metoprolol Tartrate (Metoprolol Tartrate 50 Mg Tablet) 50 mg PO BID@0900,2100 [facility] Last Admin: 07/21/21 20:50 Dose: 50 mg Documented by: Neomycin/Polymyxin/Bacitracin (Jmfflkto-Tcbi-Cnxvyyuzer Oint 28 Gm) 1 applic TOPICAL BID [facility] Last Admin: 07/21/21 17:47 Dose: 1 applic Documented by: Ondansetron HCl (Ondansetron 2 Mg/Ml Sdv 2 Ml) 4 mg IVP Q8H PRN PRN Reason: NAUSEA AND VOMITING Last Admin: 07/22/21 05:27 Dose: 4 mg Documented by: Pantoprazole Sodium (Pantoprazole Dr 40 Mg Tablet) 40 mg PO DAILY [facility] Last Admin: 07/21/21 09:51 Dose: 40 mg Documented by: Phenytoin (Phenytoin Er 100 Mg Capsule) 200 mg PO BID [facility] Last Admin: 07/21/21 17:47 Dose: 200 mg Documented by: Saliva Substitute (Saliva Stimulant [place] 44 Ml Btl) 1 spray MUCOUS MEM Q2H PRN PRN Reason: DRY MOUTH Warfarin Sodium (Warfarin 2 Mg Tablet) 2 mg PO 1400 [facility] Last Admin: 07/21/21 14:49 Dose: 2 mg Documented by: Vitals/I&O/Wt Last Vital Signs Temp 98.2 F 07/22/21 04:00 Pulse 74 07/22/21 04:00 Resp 17 07/22/21 04:00 BP 103/61 07/22/21 04:00 Pulse Ox 100 07/22/21 04:00 07/21/21 07/21/21 07/22/21 14:59 22:59 06:59 Intake Total 360 / 360 360 / 720 Balance 360 / 360 360 / 720 Weight last 48 hrs Weight 142.655 kg Weight 145.5 kg Physical Exam Narrative: EXAM NARRATIVE: obese, comfortable, NARD vs noted heent- nc/at, eomi neck supple lungs dull bases heart reg abd soft, nt, nd, + bs ext dec edema neuro- a,a, o x 3 access- rt ij permacath Urinary Catheter Management^: Acevedo: Cath Placed During This Visit: yes, but has since been removed by the nurse Reason for Continuing Indwelling Catheter: Decision to DC Catheter Date Urinary Catheter Removed: 07/19/21 Time Urinary Catheter Discontinued: 11:06 Data : 07/21/21 05:04 07/20/21 06:31 A&P Additional A&P Information 1. 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 She currently has a permacath. Strict I's and O's Dose medication for GFR less than 15 on dialysis -outpt adjunct latin professor to monitor for renal recover if any 2. anemia- ferritin 533, high tsat- use epo on hd 3. a fib- a/c per medicine 4. 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
[2021-07-22 07:04] LABS: INR 1.64 (0.8-1.2)
[2021-07-22] MEDS: phenytoin ER 100 mg Capsule 200 MG PO (08:15)
[2021-07-22] MEDS: metoprolol tartrate 50 mg Tablet PO (08:15)
[2021-07-22] MEDS: clopidogrel 75 mg Tablet PO (08:15)
[2021-07-22] MEDS: pantoprazole DR 40 mg Tablet PO (08:15)
[2021-07-22] MEDS: amoxicillin-clav 875-125 mg Tablet 1 TAB PO (08:15)
[2021-07-22] MEDS: bumetanide 1 mg Tablet 2 MG PO (08:15)
[2021-07-22] MEDS: levothyroxine 200 mcg Tablet PO (08:15)
[2021-07-22] MEDS: neomycin-poly-bacitracin oint 28 gm 1 APPLIC TOPICAL (08:15)
[2021-07-22 08:24] VITALS: BP 119/75; PULSE 78; RESP 16; TEMP 36.8; O2SAT 98
--- NOTE | 2021-07-22 08:34 | P.DS_ITS ---
Discharge Providers Date of Admission: 07/05/21 23:20 Date of Discharge: July 22, 2021 Attending Provider at Admission: Gerardo Pierre Attending Provider at Discharge: Citlali Perry MD Primary Care Provider: Pascual Kay MD Diagnoses at Discharge Discharge Diagnosis (1) Acute renal failure: Status: Resolved (2) Acute renal failure superimposed on stage 3 chronic kidney disease: Status: Acute (3) CKD (chronic kidney disease): Status: Acute (4) Acute on chronic congestive heart failure: Status: Acute Qualifiers: Heart failure type: systolic Qualified Code(s): I50.23 - Acute on chronic systolic (congestive) heart failure (5) Atrial fibrillation with RVR: Status: Resolved (6) Urine retention: Status: Resolved (7) Orthostatic hypotension: Status: Resolved (8) Atherosclerotic heart disease of [place] coronary artery with unstable angina pectoris: Status: Resolved Qualifiers: [place] vs. transplanted heart: [place] heart Qualified Code(s): I25.110 - Atherosclerotic heart disease of [place] coronary artery with unstable angina pectoris (9) Venous stasis: Status: Chronic (10) Dyslipidemia: Status: Chronic (11) Diabetes: Status: Acute Qualifiers: Chronic kidney disease stage: stage 3 (moderate) Chronic kidney disease stage 3 subtype: stage 3b (GFR 30-44) Diabetes mellitus complication detail: with chronic kidney disease Diabetes mellitus complication status: with kidney complications Diabetes mellitus termite exterminator insulin use: with termite exterminator use Diabetes mellitus type: type 2 Qualified Code(s): E11.22 - Type 2 diabetes mellitus with diabetic chronic kidney disease; N18.32 - Chronic kidney disease, stage 3b; Z79.4 - termite exterminator (current) use of insulin (12) Status post insertion of drug-eluting stent into left anterior descending (LAD) artery: Status: Acute (13) Warfarin-induced coagulopathy: Status: Acute Reason for Visit Reason for Visit: AMS Hospital Course Hospital Course HPI as per Dr. Pierre 75-year-old female with a past medical history significant for hypertension, hyperlipidemia, hypothyroidism, diabetes mellitus, peripheral vascular disease, chronic stage 3 kidney disease with baseline creatinine around 2.5, chronic systolic heart failure with last known EF of 20-25%,coronary artery disease s/p recent PCI with stent placement who was discharged from hospital after prolonged admission on 07/03 now presenting to hospital altered mental status. Patient is a poor historian. Recently treated for urinary tract infection. Does have a history of ESBL E-coli UTI in 02/2021. Laboratory workup arrival showed a WBC of 8.3, hemoglobin of 9.2, hematocrit 31.9 and a platelet count of 201. INR 2.0. Arterial blood gas showed a pH of 7.29, pCO2 of 58.6, PO2 of 80.6 and bicarb 28.2 on 2 L of O2 via nasal cannula. Sodium 137, potassium 5.1, chloride 101, bicarb 23, BUN 44 and a creatinine of 3.5. On 07/04 this was 2.6. Troponin T baseline of 145, repeat at 2hr [place] 143[place] [address]. UA showed 2+ leukocyte esterase. Chest xray showed evidence of fluid overload with central pulmonary vascular congestion, increased interstitial lung markings, small to moderate left side pleural effusion and retrocardiac opacity and ill defined opacity in the right lung base likely atelectasis vs infiltrate which are not new findings compared to prior chest x-ray. Head CT did not show any acute intracranial abnormality. Course: Patient 75-year-old female who was recently discharged from the hospital a day ago got readmitted for acute renal failure with oliguria secondary to multifactorial etiology. She received contrast load during last hospital stay for cardiac catheterization. As per notes this was discussed extensively in detail with the patient that she may be at risk for dialysis and she agreed for catheterization. Patient also was on warfarin when she presented to the hospital. Patient was transferred to ICU for lack of IV access and sepsis secondary to UTI and altered mental status. Dialysis catheters had to be placed along with triple-lumen day 1 and patient had significant bleeding from catheter site due to warfarin induced coagulopathy. INR was reversed with FFP and vitamin K. Patient required 2 units of blood. She was also treated with Primaxin for presumed ESBL UTI. Patient also briefly required vasopressors during ICU stay. After stabilizing she was transferred to the floor and catheters were removed. Patient was on the hypotensive side and was also given midodrine. As we were getting closer to discharge patient again developed oliguric renal failure with bilateral pleural effusions. Thoracentesis was recommended but due to high risk of bleed it was unable to be performed over the weekend due to specialty consult and not being available. An attempt was made to transfer patient to higher level of care for thoracentesis and more than 10 have hospitals were called but due to lack of bed availability patient was unable to be transferred. Patient was placed on BiPAP for over 2 days. Nephrology decided to redialyze the patient at this time permacath was requested. PermCath was placed and patient again blood from catheter site. Extensive discussion was made with patient's family due to her current state that day and she was made DNR/DNI by family. Patient was again altered. Next day patient was made comfort care by the family but by that time she had had 2 dialysis sessions and respiratory status had improved. Patient was awake and lucid enough to state that she did not want to be comfort care and wanted to be a full code and wanted all necessary aggressive interventions. At this committee was involved and decision was made to restart treatment. Patient was further dialyzed Friday and she recovered. Discussion was done with cardiology regarding her discharge medications and it was decided to send her out on Plavix and warfarin with an INR of 1.5-2 due to high risk of bleed. This was discussed with the patient and she was agreeable. Family was updated very frequently over the phone. Patient was fully optimized medically and was discharged in very good spirits on July 22, 2020 to group home. [facility]Vest to be set up as an outpatient at the group home. Case management will work on that. Off note patient did have some pus like discharge at right femoral catheter site for which she was given bacitracin ointment and briefly was empirically covered with IV antibiotics as well. Patient to follow-up with outpatient nephrology and cardiology after discharge. She was given Augmentin at discharge to cover for site infection. Physical Exam Narrative: EXAM NARRATIVE: Patient was unable to be seen in the morning of discharge day as transportation came early and before I could make rounds on her she left the hospital. History from overnight events was discussed with nursing staff and no overnight events were reported and patient was doing well. Labs were reviewed INR 1.64. Patient was doing very very well as per nursing staff and there were no changes to her compared to prior day. Urinary Catheter Management^: Acevedo: Cath Placed During This Visit: yes, but has since been removed by the nurse Reason for Continuing Indwelling Catheter: Decision to DC Catheter Date Urinary Catheter Removed: 07/19/21 Time Urinary Catheter Discontinued: 11:06 Discharge Data Data Completed and Pending: Completed Studies During Hospitalization Category Date Time Status CT chest wo con 7 1250 Stat Cat Scan 07/15/21 11:[address] head wo con* 7 0450 Urgent Cat Scan 07/05/21 20:59 Completed XR chest 1V cole ble 60063 Stat Exams 07/15/21 09:49 Completed XR chest 1V coel ble 24205 Stat Exams 07/17/21 14:26 Completed XR chest 1V cole ble 88696 Urgent Exams 07/16/21 07:49 Completed XR chest 1V cole ble 51262 Urgent Exams 07/05/21 20:59 [place] [address] Urge nt Ultrasound 07/08/21 15:43 [place] [address] Urgent Ultrasound 07/06/21 08:58 Completed CV. echo lmt w co danita 74827/25 Routi ne Ultrasound 07/06/21 02:23 Completed US renal BI* 7677 0 Urgent Ultrasound 07/06/21 11:27 Completed Pending at discharge Category Date Time Status Arterial Blood Ga s Full Stat Lab 07/16/21 11:28 Results Complete Blood Co unt w/Auto AM LABS Lab 07/23/21 04:00 Ordered Complete Blood Co unt w/Auto AM LABS Lab 07/24/21 04:00 Ordered Complete Blood Co unt w/Auto AM LABS Lab 07/25/21 04:00 Ordered Comprehensive Met abolic Panel AM LA BS Lab 07/23/21 04:00 Ordered Comprehensive Met abolic Panel AM LA BS Lab 07/24/21 04:00 Ordered Comprehensive Met abolic Panel AM LA BS Lab 07/25/21 04:00 Ordered Magnesium AM LABS Lab 07/23/21 04:00 Ordered Magnesium AM LABS Lab 07/24/21 04:00 Ordered Magnesium AM LABS Lab 07/25/21 04:00 Ordered PTH [Parathyroid With Calcium] AM L ABS Lab 07/23/21 04:00 Ordered Phosphorus AM LAB S Lab 07/23/21 04:00 Ordered Phosphorus AM LAB S Lab 07/24/21 04:00 Ordered Phosphorus AM LAB S Lab 07/25/21 04:00 Ordered Sputum Culture an d Gram Stain Stat Lab 07/16/21 16:26 Uncollected Sputum Culture an d Gram Stain Stat Lab 07/06/21 11:44 Uncollected Labs from last 24 hours 01/09/22 01/09/22 01/08/22 06:35 06:29 21:31 PT 19.90 H INR 1.64 H POC Glucose 130 H 172 H 07/21/21 07/21/21 17:07 11:11 PT INR POC Glucose 128 H 110 Vitals: Last Vital Signs Temp 98.2 F 07/22/21 08:24 Pulse 78 07/22/21 08:24 Resp 16 07/22/21 08:24 BP 119/75 07/22/21 08:24 Pulse Ox 98 07/22/21 08:24 Discharge Plan Discharge Patient Disposition: Xfer SNF Condition: Stable Prescriptions: Continued clopidogrel 75 mg tablet 75 mg PO DAILY@0800 RF: 0 calcitriol 0.25 mcg capsule 0.25 mcg PO DAILY@0800 RF: 0 levothyroxine 25 mcg tablet 25 mcg PO DAILY@06 RF: 0 magnesium hydroxide [Milk of Magnesia] 400 mg/5 mL Suspension 5 ml PO QID PRN (Reason: Constipation) RF: 0 bisacodyl 10 mg Suppository 10 mg [place] DAILY PRN (Reason: Constipation) RF: 0 levothyroxine 200 mcg tablet 200 mcg PO DAILY@06 RF: 0 folic acid 1 mg Tablet 2 mg PO DAILY@08 RF: 0 pantoprazole [Protonix] 40 mg tablet,delayed release (DR/EC) 40 mg PO DAILY@08 RF: 0 atorvastatin 80 mg Tablet 80 mg PO BEDTIME@20 RF: 0 citalopram 10 mg Tablet 10 mg PO DAILY@0800 RF: 0 docusate sodium 100 mg capsule 100 mg PO DAILY PRN (Reason: Constipation) RF: 0 phenytoin sodium extended 100 mg capsule 200 mg PO BID@08,20 RF: 0 insulin aspart U-100 [Novolog Flexpen U-100 Insulin] 100 unit/mL (3 mL) insulin pen See Rx Instructions .ROUTE .COMPLEX RF: 0 Changed spironolactone 25 mg tablet 6.25 mg PO DAILY@08 Qty: 0 RF: 0 metoprolol tartrate 25 mg tablet 50 mg PO BID@08,20 Qty: 0 RF: 0 Discontinued gabapentin 100 mg capsule 100 mg PO BID@0800,1999 RF: 0 aspirin [Aspir-81] 81 mg Tablet,Delayed Release (Dr/Ec) 81 mg PO DAILY@08 RF: 0 Levemir FlexTouch U-100 Insuln 100 unit/mL (3 mL) insulin pen 5 unit SUBCUT BEDTIME@20 RF: 0 nitrofurantoin monohyd/m-cryst [Macrobid] 100 mg capsule 100 mg PO BID 7 Days Qty: 14 RF: 0 midodrine 10 mg tablet 10 mg PO TID Qty: 90 RF: 0 Enema Disposable 19-7 gram/118 mL Enema 118 ml [place] DAILY PRN (Reason: Constipation) RF: 0 bumetanide 2 mg tablet 2 mg PO DAILY@08 RF: 0 sennosides-docusate sodium [Senna-S] 8.6-50 mg Tablet 1 tab PO DAILY@08 RF: 0 meclizine 12.5 mg Tablet 12.5 mg PO DAILY@08 RF: 0 potassium chloride 10 mEq tablet,ER particles/crystals 10 meq PO DAILY@08 RF: 0 mupirocin 2 % ointment 1 applic topical BID PRN (Reason: UNKNOWN) RF: 0 No Action sennosides-docusate sodium [Senna-S] 8.6-50 mg Tablet 2 tab PO BID PRN (Reason: Constipation) RF: 0 Enema Disposable 19-7 gram/118 mL Enema 118 ml [place] DAILY PRN (Reason: Constipation) RF: 0 warfarin 1 mg Tablet 1.5 mg PO DAILY@14 RF: 0 polyethylene glycol 3350 [Miralax] 17 gram/dose Powder 17 g PO DAILY PRN (Reason: Constipation) RF: 0 meclizine 25 mg Tablet 25 mg PO TID PRN (Reason: Nausea And Vomiting) RF: 0 diazepam 2 mg Tablet 2 mg PO BID PRN (Reason: Anxiety) RF: 0 ProAir HFA 90 mcg/actuation Hfa Aerosol Inhaler 2 puff inhalation Q6H PRN (Reason: Shortness Of Breath) RF: 0 Zofran ODT 4 mg Tablet,Disintegrating 8 mg PO TID PRN (Reason: Nausea And Vomiting) RF: 0 Vitamin D3 25 mcg (1,000 unit) Tablet 25 mcg PO DAILY@08 RF: 0 Discharge Orders: Discharge Order (Routine); Ordered 07/22/21 Ordered By: Citlali Perry Referrals: Dedrick Hendricks MD [Referring] - 1 week Ruddy Sanches MD [Physician] - 1 month Laury Silver FNP [Nurse Practitioner] - 1 week Discharge Diet: Cardiac and Low Salt Discharge Activity: Increase activity as tolerated, Wheelchair as instructed and Oxygen as instructed Patient Instructions: Amoxicillin/Clavulanate Potassium (By mouth) Activity Restrictions/Additional Instructions: Cardiac renal diet, low salt. Check INR daily to get warfarin in therapeutic range. INR range 1.5-2 is going to be your range. INR not to go higher than 2 due to increased bleeding risk (as per physical science aide). Follow up with nephrology for management of dialysis. Follow up with PCP in 7-10 days of discharge. Follow up with cardiology as directed. Discharge Attestations Time Spent in Discharge Care*: greater than 30 min Status at Discharge: Cognitive status at discharge: cognitively intact , Behavioral status at discharge: cooperative , Quality Metrics Clinical Quality Measures During this hospital stay, did patient experience: None Coding Level of Care Code Acute g FW AR note Diagnoses Acute renal failure N17.9 Acute renal failure superimposed on stage 3 chronic kidney disease N17.9; N18.30 CKD (chronic kidney disease) N18.9 Acute on chronic congestive heart failure I50.23 Heart failure type: systolic Atrial fibrillation with RVR I48.91 Urine retention R33.9 Orthostatic hypotension I95.1 Atherosclerotic heart disease of [place] coronary artery with unstable angina pectoris I25.110 [place] vs. transplanted heart: [place] heart Venous stasis I87.8 Dyslipidemia E78.5 Diabetes E11.22; N18.32; Z79.4 Chronic kidney disease stage: stage 3 (moderate) Chronic kidney disease stage 3 subtype: stage 3b (GFR 30-44) Diabetes mellitus complication detail: with chronic kidney disease Diabetes mellitus complication status: with kidney complications Diabetes mellitus retirement insulin use: with termite exterminator use Diabetes mellitus type: type 2 Status post insertion of drug-eluting stent into left anterior descending (LAD) artery Z95.5 Warfarin-induced coagulopathy D68.32; T45.515A
[2021-07-22 10:14] VITALS: BP 119/75; PULSE 78; RESP 16; TEMP 36.8; O2SAT 98
--- NOTE | 2021-07-22 15:29 | PC.SOCIAL ---
IMM UPDATED IMM initialed and dated and copy given to patient
--- NOTE | 2021-07-23 09:35 | PC.SOCIAL ---
Addendum entered by Madeline Long, RN 07/23/21 10:13: discussed with Nel Valdovinos regarding the referral and she will follow up to ensure they received information and get the lifevest placed. She will call if for some reason the fax does not show up on their end or additional information is needed. Original Note: Dr Perry asked that the lifevest order be sent and to help get this placed. This was not done prior to dc due to patients plan of care changed throughout hospitalization. Faxed orders to [facility] [phone]. Call placed to Prudence Hickman [phone] to reach left her a message and called the direct number at [phone] and Spoke to Galen to update order was just faxed. Per Galen it was verified that the Lifevest can be placed at [facility]. Provided name of [facility] along with phone number for them on cover sheet. Galen just sent Nel a direct message as well to contact me about order. Notified Daisy at [facility] that company will contact them to place. She will pass message to CAMI and transferred call to charge nurse Arlene.Updated Arlene of this as well. Confirmation received that fax was sent to [facility] successfully.
== END 2021-07-22 10:15 | disposition skilled nursing facility (03) | DRG 871 ==
LOC: ER 23:41 → CSU 23:52 → ICU 07-06 08:43 → MEDSURG 07-11 20:50
PROVIDERS: Internal Medicine; Internal Medicine Nephrology; Surgery; Admitting Provider Hospitalist; Emergency Provider Emergency Medicine; PCP Family Medicine; Visit Provider Internal Medicine
PROC: 0JH63XZ Insertion of Tunneled Vascular Access Device into Chest Subcutaneous Tissue and Fascia, Percutaneous Approach (ICD-10-PCS; principal; 2021-07-15 14:30)
DX: A41.9 Sepsis, unspecified organism (principal); J18.9 Pneumonia, unspecified organism; I50.23 Acute on chronic systolic (congestive) heart failure; J96.22 Acute and chronic respiratory failure with hypercapnia; N17.0 Acute kidney failure with tubular necrosis; I13.0 Hypertensive heart and chronic kidney disease with heart failure and stage 1 through stage 4 chronic kidney disease, or unspecified chronic kidney disease; D62 Acute posthemorrhagic anemia; Z68.43 Body mass index [BMI] 50.0-59.9, adult; B37.49 Other urogenital candidiasis; D68.32 Hemorrhagic disorder due to extrinsic circulating anticoagulants; Z79.4 Long term (current) use of insulin; I48.0 Paroxysmal atrial fibrillation; E11.22 Type 2 diabetes mellitus with diabetic chronic kidney disease; N18.32 Chronic kidney disease, stage 3b; E11.51 Type 2 diabetes mellitus with diabetic peripheral angiopathy without gangrene; I25.10 Atherosclerotic heart disease of native coronary artery without angina pectoris; Z95.5 Presence of coronary angioplasty implant and graft; E78.5 Hyperlipidemia, unspecified; E66.01 Morbid (severe) obesity due to excess calories; D69.6 Thrombocytopenia, unspecified; E83.42 Hypomagnesemia; T45.515A Adverse effect of anticoagulants, initial encounter; N14.1 Nephropathy induced by other drugs, medicaments and biological substances; T50.8X5A Adverse effect of diagnostic agents, initial encounter; I27.20 Pulmonary hypertension, unspecified; I25.2 Old myocardial infarction; I95.1 Orthostatic hypotension; Z87.440 Personal history of urinary (tract) infections; E03.9 Hypothyroidism, unspecified
CPT/HCPCS: 36415; 36416; 36430; 36600; 51798; 70450; 71045; 71250; 76000; 76770; 77001; 80048; 80051; 80053; 80069; 80185; 81001; 81003; 82330; 82550; 82570; 82728; 82803; 82805; 82962; 83540; 83550; 83605; 83735; 83880; 84100; 84145; 84300; 84443; 84484; 85007; 85014; 85018; 85025; 85610; 86140; 86403; 86705; 86706; 86850; 86900; 86920; 86927; 87040; 87086; 87106; 87340; 87449; 87635; 87641; 93005; 93308; 93325; 93925; 93970; 94660; 96365; 96367; 96372; 97110; 97163; 97165; 97530; 97535; 99283; 99285; C1750; C1751; J0690; J0743; J1644; J1650; J1815; J1940; J2020; J2270; J2405; J2543; J2704; J2765; J3370; J3430; J3490; J7030; J7050; P9016; P9017; P9047; Q3014

== ENCOUNTER 2021-07-26 07:45 | Emergency (ER) | payer MEDICARE, MEDICAID, SELFPAY ==
[2021-07-26 07:54] VITALS: BP 96/45; PULSE 80; RESP 18; TEMP 37.1; O2SAT 94; BMI 48.0
--- NOTE | 2021-07-26 08:12 | W.ED.WOUNDLC ---
HPI - Wound/Laceration General: Chief Complaint: Wound/Laceration Stated Complaint: BLEEDING FROM PICC Time Seen by Provider: 07/26/21 07:45 History of Present Illness: HPI narrative: Patient comes in from the custodial with concerns for bleeding around her dialysis catheter site. States that she saw her networking technician yesterday and was told that they were going to schedule to have the catheter moved to the other side of her chest. States that yesterday it started bleeding pretty heavily. States she is on Coumadin. Denies any other symptoms. Associated symptoms: Denies fever(s), nausea or vomiting Review of Systems Const: Denies: fever(s) or body aches Eyes: Denies: change in vision or blurry vision ENMT: Denies: throat pain or odynophagia Card: Denies: chest pain or palpitations Resp: Denies: dyspnea or productive cough GI: Denies: abdominal pain, nausea or vomiting : Denies: flank pain or dysuria Musc: Denies: neck pain or back pain Skin/Breast: Denies: rash or pruritus Neuro: Denies: headache(s) or numbness in extremities Psych: Denies: anxiety or change in appetite Endo: Denies: polyuria or excessive sweating PFSH ED PFSH: Medical History Acute hypercapnic respiratory failure Afib Anemia Atrial fibrillation with RVR CAD (coronary artery disease) Chronic anticoagulation Eliquis CKD (chronic kidney disease) Congestive heart failure Diabetes Dyslipidemia Hematoma of left flank HTN (hypertension) Morbid obesity Morbid obesity NSTEMI (non-ST elevated myocardial infarction) PVD (peripheral vascular disease) 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) Status post insertion of drug-eluting stent into left anterior descending (LAD) artery Urine retention Venous stasis Surgical History History of ankle surgery History of cataract surgery History of cholecystectomy History of heart artery stent History of umbilical hernia repair S/P hemodialysis catheter insertion (11/22/20) Right internal jugular vein d/c 12/25/20 Family History Other Cancer Diabetes Social History Smoking and tobacco status: never smoked Alcohol intake: never Marital status: / Current occupational status: retired History of recent travel: No Physical Exam Const: COMMON NORMALS: no acute distress, patient oriented x3, healthy appearing and alert HENMT: COMMON NORMALS: normocephalic and atraumatic HEAD & SCALP: normocephalic and atraumatic Eye: COMMON NORMALS: Equal, round and reactive pupils present and EOMs intact bilaterally PUPIL: Yes Equal, round and reactive pupils present Neck/C-Spine: COMMON NORMALS: full ROM and supple Chest: OTHER: Dialysis catheter in the right chest wall with very mild hemorrhage of venous blood from the insertion site. Resp: COMMON NORMALS: normal respiratory effort, No retractions and No use of accessory muscles Cardio: COMMON NORMALS: regular rate and regular rhythm RATE: regular rate RHYTHM: regular rhythm GI: COMMON NORMALS: Normal to inspection, nondistended, normoactive bowel sounds present, Soft to palpation and non-tender PALPATION: Yes Soft to palpation Back/Pelvis: COMMON NORMALS: thoracic and lumbar spine normal to inspection and no thoracic nor lumbar tenderness Extremity: COMMON NORMALS: normal to inspection and full ROM Neuro: COMMON NORMALS: patient oriented x3 SENSORIUM/ORIENTATION: Yes alert Psych: COMMON NORMALS: mental status grossly normal and cooperative Skin: COMMON NORMALS: no rashes or lesions noted and no wounds GENERAL SKIN EXAM: no rashes or lesions noted Course Vital Signs: Vital signs: Vital Signs Temperature 98.7 F 07/26/21 07:54 Pulse Rate 80 07/26/21 07:54 Respiratory Rate 18 07/26/21 07:54 Blood Pressure 96/45 07/26/21 07:54 Pulse Oximetry 94 07/26/21 07:54 MDM - Wound/Laceration MDM Narrative: Medical decision making narrative: Patient comes in from the custodial with bleeding around her dialysis catheter site in her right chest wall. States she saw her networking technician yesterday and they plan to schedule her for changing the catheter to the other side. States she is on Coumadin and she has had some oozing from that site periodically, however the last 24 hours that his blood a lot more. Under sterile technique I injected lidocaine with epinephrine around the insertion site carefully avoiding the dialysis catheter itself. I then held pressure for about 5 minutes and placed a tight sterile dressing over the insertion site. Will observe for period of time, check INR, and reassess. On reassessment the dressing is intact with no bleeding at this time. Will discharge back to the custodial with precautions to return for worsening or changing symptoms. Lab Data: Labs: Lab Results 07/26/21 08:40 PT 25.00 SECONDS H S ECONDS (12.1-14.9) INR 2.21 H (0.8-1.2) Discharge Plan Discharge Patient Disposition: Home Clinical Impression: Encounter for post surgical wound check Condition: Stable Prescriptions: No Action clopidogrel 75 mg tablet 75 mg PO DAILY@0800 RF: 0 calcitriol 0.25 mcg capsule 0.25 mcg PO DAILY@0800 RF: 0 levothyroxine 25 mcg tablet 25 mcg PO DAILY@06 RF: 0 magnesium hydroxide [Milk of Magnesia] 400 mg/5 mL Suspension 30 ml PO DAILY PRN (Reason: Constipation) RF: 0 bisacodyl 10 mg Suppository 10 mg [place] DAILY PRN (Reason: Constipation) RF: 0 levothyroxine 200 mcg tablet 200 mcg PO DAILY@06 RF: 0 folic acid 1 mg Tablet 2 mg PO DAILY@20 RF: 0 pantoprazole [Protonix] 40 mg tablet,delayed release (DR/EC) 40 mg PO DAILY@08 RF: 0 Triple Antibiotic 3.5mg-400 unit- 5,000 unit/gram Ointment 1 applic topical BID 14 Days Qty: 30 RF: 0 spironolactone 25 mg tablet 6.25 mg PO DAILY@08 Qty: 0 RF: 0 metoprolol tartrate 25 mg tablet 50 mg PO BID@08,20 Qty: 0 RF: 0 atorvastatin 80 mg Tablet 80 mg PO BEDTIME@20 RF: 0 citalopram 10 mg Tablet 10 mg PO DAILY@0800 RF: 0 docusate sodium 100 mg capsule 100 mg PO DAILY@08 RF: 0 phenytoin sodium extended 100 mg capsule 200 mg PO BID@08,20 RF: 0 insulin aspart U-100 [Novolog Flexpen U-100 Insulin] 100 unit/mL (3 mL) insulin pen See Rx Instructions .ROUTE .COMPLEX RF: 0 warfarin [Jantoven] 3 mg Tablet 1.5 mg PO DAILY@1400 30 Days Qty: 30 RF: 0 Discharge Orders: Discharge ED (Routine); Ordered 07/26/21 Ordered By: Luis Eduardo Jin Referrals: Pascual Kay MD [Primary Care Provider] - Coding Level of Care Code ED Master Control Supervisor for Chg Fwd Exam Comprehensive
[2021-07-26 09:10] LABS: INR 2.21 (0.8-1.2)
--- NOTE | 2021-07-26 10:21 | PC.NURSE ---
Scheduled a Ride. Confirmation number # [id number]
[2021-07-26 11:24] VITALS: BP 105/51; PULSE 78; O2SAT 94
== END 2021-07-26 11:33 | disposition home or self-care (01) ==
PROVIDERS: Emergency Provider Emergency Medicine; PCP Family Medicine
DX: Z48.01 Encounter for change or removal of surgical wound dressing (principal); Z79.02 Long term (current) use of antithrombotics/antiplatelets; Z79.4 Long term (current) use of insulin; I25.10 Atherosclerotic heart disease of native coronary artery without angina pectoris; I11.0 Hypertensive heart disease with heart failure; I50.9 Heart failure, unspecified; E11.9 Type 2 diabetes mellitus without complications; E78.5 Hyperlipidemia, unspecified; I25.2 Old myocardial infarction
CPT/HCPCS: 85610; 99282

== ENCOUNTER 2021-08-03 11:59 | Inpatient (IN) | payer MEDICARE, MEDICAID, SELFPAY ==
[2021-08-03] VITALS (9 sets, daily range): BP systolic 97–170; BP diastolic 47–105; PULSE 64–89; RESP 16–22; TEMP 36.3–36.7; O2SAT 94–99; BMI 62.6; BMI 54.5
--- NOTE | 2021-08-03 12:20 | W.ED.SOB ---
HPI - SOB/Dyspnea General: Chief Complaint: COVID symptoms Stated Complaint: COVID, LOW O2 Time Seen by Provider: 08/03/21 12:19 History of Present Illness: HPI Narrative: Ms. Lee is a 75-year-old lady with very complex past medical history including CAD, diabetes, end-stage renal disease on dialysis, history of chronic hypoxic respiratory failure presenting to the emergency department due to worsening oxygen saturations. Apparently she recently, unknown exactly when, tested positive for COVID. Patient reports starting last night feeling much more short of breath. Overall course of symptoms has been worsening. Intensity is moderate to severe. Worsening oxygen requirement. Denies other new significant changes to health though baseline mental status is mildly limited. No other significant changes to health, exacerbating, alleviating, or provoking factors identified. Pertinent past history: COPD, diabetes and other Onset (ago): day(s) Context: recent illness Timing: progressively worsening Severity: severe Exacerbating factors: other Relieving factors: oxygen Known history of: other Associated symptoms: Reports cough Review of Systems General: Reports: 10 or more systems reviewed and unremarkable except in HPI and below PFSH ED PFSH: Medical History Acute hypercapnic respiratory failure Afib Anemia Atrial fibrillation with RVR CAD (coronary artery disease) Chronic anticoagulation Eliquis CKD (chronic kidney disease) Congestive heart failure Diabetes Dyslipidemia Hematoma of left flank HTN (hypertension) Morbid obesity Morbid obesity NSTEMI (non-ST elevated myocardial infarction) PVD (peripheral vascular disease) 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) Status post insertion of drug-eluting stent into left anterior descending (LAD) artery Urine retention Venous stasis Surgical History History of ankle surgery History of cataract surgery History of cholecystectomy History of heart artery stent History of umbilical hernia repair S/P hemodialysis catheter insertion (11/22/20) Right internal jugular vein d/c 12/25/20 Family History Other Cancer Diabetes Social History Smoking and tobacco status: never smoked Alcohol intake: never Marital status: / Current occupational status: retired History of recent travel: No Physical Exam Const: COMMON NORMALS: alert GENERAL APPEARANCE: ill appearing NUTRITIONAL APPEARANCE: obese HENMT: COMMON NORMALS: normocephalic and atraumatic HEAD & SCALP: normocephalic and atraumatic THROAT: posterior oropharynx normal Eye: COMMON NORMALS: conjunctivae normal CONJUNCTIVA: Yes conjunctivae normal SCLERA: sclerae normal Neck/C-Spine: COMMON NORMALS: supple GENERAL: Yes trachea midline Resp: EFFORT & INSPECTION: Yes tachypneic AUSCULTATION: rhonchi and diminished lung sounds Cardio: COMMON NORMALS: regular rate and regular rhythm RATE: regular rate RHYTHM: regular rhythm GI: COMMON NORMALS: Soft to palpation PALPATION: Yes Soft to palpation and No Tenderness to palpation present (GI) PERCUSSION: normal to percussion Extremity: GENERAL: Yes normal exam except as noted and No edema Neuro: COMMON NORMALS: moves all extremities SENSORIUM/ORIENTATION: Yes alert and No Orientation impaired Psych: COMMON NORMALS: mental status grossly normal and Normal thought process present THOUGHT PROCESS: Normal thought process present Skin: NARRATIVE SKIN EXAM: Scattered abrasions, skin peralta, scabs Procedures ABG Interpretation ABG Interpretation 1: ABG Results: 7.34/65.6/120 Interpretation: abnormal and other (Hypercapnic respiratory failure) Course ED course: - Patient was seen and evaluated by me at bedside - Patient placed on cardiac monitors, IV access obtained - Initial evaluation notable for exam as above, chronic ill appearance - Labs notable for leukopenia, macrocytic anemia. Metabolic panel with likely evidence of mild dehydration intravascularly, creatinine elevated though in the context of known end-stage renal disease on dialysis. Initial troponin elevated likely chronically related to end-stage renal disease, repeat similar. Per recent review patient does not typically retain CO2, as such BiPAP ordered. - Imaging notable for opacities in the right lung and left lower lobe - Upon serial reexamination after treatment the patient was improved. ABG improving - Based on patient history, evaluation, labs, and imaging as interpreted the most likely cause of the patient's condition is acute on chronic hypercapnic and hypoxic respiratory failure in the context of COVID-19 - The results of ED evaluation were discussed with the patient including plan for admission due to requirement for level of care not available if discharged to prevent significant worsening/deterioration. - Hospitalist service contacted and agreed admit the patient - Patient was admitted without further deterioration or significant events. Note: Click bubbles or prepopulated griffiths in note writing are used for assistance with data collection and billing and are inherently more limited than narrative and other text portions of this note. Please use narrative for additional clinical history and defer to narrative/free test for any case of contradictory information. If information appears in only free text or click bubble it should be considered present or absent as reported. Please contact note teletypewriter installer for clarifications of clinical information or contradictory information. MDM is a brief summary, contradictory or erroneous seeming information should be clarified and full note should be reviewed. Vital Signs: Vital signs: Vital Signs Temperature 98.7 F 08/08/21 20:00 Pulse Rate 106 H 08/08/21 20:00 Respiratory Rate 27 H 08/08/21 20:00 Blood Pressure 123/82 08/08/21 20:00 Pulse Oximetry 92 08/08/21 20:00 MDM - SOB/Dyspnea MDM Narrative Medical decision making narrative: 75-year-old lady with a very complex past medical history critical chronic hypoxic respiratory failure on oxygen presenting with known Covid and worsening shortness of breath x1 day. Patient found to have acute hypercapnic respiratory failure, she does not typically retain CO2, placed on BiPAP. Patient admitted to the hospital with mildly improved overall clinical picture though she remains significantly ill. Medical Records Attestation: I reviewed the patient's medical records. Lab Data Attestation: I reviewed the patient's lab results. Result diagrams: 08/08/21 05:45 08/08/21 05:45 Labs: Lab Results 08/03/21 08/03/21 08/03/21 12:31 12:52 12:52 WBC 3.7 10^3/uL L 10^3/uL (4.0-10.0) RBC 2.70 10^6/uL L 10^6/uL (4.1-5.3) Hgb 8.0 g/dL L g/dL (11.5-15.3) Hct 27.0 % L % (37.0-47.0) MCV 100.0 fl H fl (81-99) MCH 29.6 pg pg (28.0-34.0) MCHC 29.6 g/dL L g/dL (30.0-36.0) RDW 18.1 % H % (12.1-15.1) Plt Count 146 10^3/cmm 10^3/cmm (130-400) MPV 12.9 fL H fL (7.4-10.4) Neut % (Auto) 53.2 % % Lymph % (Auto) 30.1 % % [place] % (Auto) 9.3 % % Eos % (Auto) 5.8 % % Baso % (Auto) 0.8 % % Neut # (Auto) 1.94 10^3/uL 10^3/uL (1.8-7.7) Lymph # (Auto) 1.1 10^3/uL 10^3/uL (0.8-4.8) [place] # (Auto) 0.3 10^3/uL 10^3/uL (0.2-0.9) Eos # (Auto) 0.2 10^3/uL 10^3/uL (0.0-0.8) Baso # (Auto) 0.0 10^3/uL 10^3/uL (0.0-0.1) Nucleated RBC % (auto) 0 % % Nucleated RBCs # 0.0 /100WBC /100WBC Specimen Type Arterial Sample Site Brachial, left ABG pH 7.35 (7.35-7.45) ABG pCO2 65.6 mmHg H* mmHg (35-45) ABG pO2 120.0 mmHg H mmHg (80.0-100.0) ABG HCO3 36.0 mmol/L H mmol/L (22-26) ABG Base Excess 9.1 mmol/L H mmol/L (-2.0-2.0) Olvin Test Pos Hematocrit 24.8 % L % (37-47) O2 Delivery Device Nc O2 Liters/Min 3.0 % % FiO2 32.0 % % Medical Research Tech ID Monro Sodium 132 mmol/L L mmol/L (136-145) Potassium 3.9 mmol/L mmol/L (3.5-5.1) Chloride 95 mmol/L L mmol/L (98-107) Carbon Dioxide 30 mmol/L H mmol/L (22-29) Anion Gap 10.9 (5-19) BUN 9 mg/dL mg/dL (8-23) Creatinine 1.6 mg/dL H mg/dL (0.5-0.9) GFR Calculation Not Reportable Glucose 185 mg/dL H mg/dL (65-115) Calculated Osmolality 277 mOsm/kg L mOsm/kg (285-295) Calcium 7.0 mg/dL L mg/dL (8.5-10.5) Total Bilirubin 0.4 mg/dL mg/dL (0.15-1.2) AST 43 U/L H U/L (0-32) ALT 8 U/L U/L (0-33) Alkaline Phosphatase 257 IU/L H IU/L (35-105) Troponin T Baseline Troponin T 120 Minute Delta Troponin T NT-Pro-B Natriuret Pep 21993 pg/mL H pg/mL (0-450) Total Protein 5.4 g/dL L g/dL (6.6-8.7) Albumin 2.6 g/dL L g/dL (3.5-5.2) Globulin 2.8 g/dL g/dL (1.3-4.6) Procalcitonin 0.20 ng/mL ng/mL (0-0.5) SARS-CoV-2 RNA (RT-PCR) 08/03/21 08/03/21 08/03/21 12:52 15:28 15:30 WBC RBC Hgb Hct MCV MCH MCHC RDW Plt Count MPV Neut % (Auto) Lymph % (Auto) [place] % (Auto) Eos % (Auto) Baso % (Auto) Neut # (Auto) Lymph # (Auto) [place] # (Auto) Eos # (Auto) Baso # (Auto) Nucleated RBC % (auto) Nucleated RBCs # Specimen Type Sample Site ABG pH ABG pCO2 ABG pO2 ABG HCO3 ABG Base Excess Olvin Test Hematocrit O2 Delivery Device O2 Liters/Min FiO2 Medical Research Tech ID Sodium Potassium Chloride Carbon Dioxide Anion Gap BUN Creatinine GFR Calculation Glucose Calculated Osmolality Calcium Total Bilirubin AST ALT Alkaline Phosphatase Troponin T Baseline 122 ng/L H* ng/L (0-10) Troponin T 120 Minute 120.0 ng/L H ng/L (0-10) Delta Troponin T -2.0 ABS# L ABS# (0-10) NT-Pro-B Natriuret Pep Total Protein Albumin Globulin Procalcitonin SARS-CoV-2 RNA (RT-PCR) Detected A (NOT DETECTED) 08/03/21 15:36 WBC RBC Hgb Hct MCV MCH MCHC RDW Plt Count MPV Neut % (Auto) Lymph % (Auto) [place] % (Auto) Eos % (Auto) Baso % (Auto) Neut # (Auto) Lymph # (Auto) [place] # (Auto) Eos # (Auto) Baso # (Auto) Nucleated RBC % (auto) Nucleated RBCs # Specimen Type Arterial Sample Site Brachial, right ABG pH 7.40 (7.35-7.45) ABG pCO2 55.6 mmHg H mmHg (35-45) ABG pO2 66.2 mmHg L mmHg (80.0-100.0) ABG HCO3 34.1 mmol/L H mmol/L (22-26) ABG Base Excess 8.2 mmol/L H mmol/L (-2.0-2.0) Olvin Test Pos Hematocrit 24.6 % L % (37-47) O2 Delivery Device Bipap O2 Liters/Min FiO2 30.0 % % Medical Research Tech ID Monro Sodium Potassium Chloride Carbon Dioxide Anion Gap BUN Creatinine GFR Calculation Glucose Calculated Osmolality Calcium Total Bilirubin AST ALT Alkaline Phosphatase Troponin T Baseline Troponin T 120 Minute Delta Troponin T NT-Pro-B Natriuret Pep Total Protein Albumin Globulin Procalcitonin SARS-CoV-2 RNA (RT-PCR) EKG Data^ EKG 1: Attestation: I personally reviewed and interpreted this EKG as follows: EKG Interpretation Date: 08/03/21 EKG interpretation time: 12:38 Interpretation: Twelve-lead EKG shows an irregular rhythm at a rate of 74. No VT interval, QRS duration 117, QTc 433. Borderline axis. Interpretation: Atrial fibrillation. Interventricular conduction delay. Nonspecific ST segment abnormalities. Discharge Plan Discharge Patient Disposition: Admitted As Inpatient Admit Provider: Ruddy Berkowitz Clinical Impression: COVID-19, Acute on chronic respiratory failure with hypoxia and hypercapnia Condition: Stable Coding Level of Care Code ED Early Childhood Services Coordinator for Chg Fwd Exam Comprehensive
--- NOTE | 2021-08-03 12:24 | XR_ITS ---
WS: [id number] Exam: XR chest 1V portable [id number] Date/Time of Exam: 08/03/2021 1:02 PM Reason For Exam: shortness of breath Comparison 07/17/2021. Patchy infiltrates have now developed throughout the right lung. A consolidating left retrocardiac de nsity probably represents left lower lobe infiltrate. The heart is enlarged but unchanged in size. A right subclavian double lumen dialysis catheter is in place ending in the midportion of the superior vena cava. No pneumothorax. Probable small left basal pleural effusion. The mediastinum is not widene d. Bony structures are intact. XR/XR chest 1V portable [id number] IMPRESSION: 1. Development of patchy groundglass infiltrates throughout the right lung. 2. Increased density in the left retrocardiac region most likely representing c onsolidating infiltrate in the left lower lobe. There may be small left pleural effusion. 3. Cardiac enlargement unchanged. 4. Double lumen dialysis catheter appearing to end in the upper one third of th e SVC.
--- NOTE | 2021-08-03 12:25 | ECG_ITS ---
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 Measurements Intervals [place] Rate: 74 P: AR: QRS: 88 QRSD: 117 T: 262 QT: 406 QTc: 452 Interpretive Statements ATRIAL FIBRILLATION WITH ABERRANT CONDUCTION OR VENTRICULAR PREMATURE COMPLEXES INDETERMINATE AXIS LOW QRS VOLTAGE [QRS DEFLECTION < 0.5/1.0 mV IN LIMB/CHEST LEADS] ANTEROSEPTAL MYOCARDIAL INFARCTION , OF INDETERMINATE AGE [40+ ms Q WAVE IN V1-V4] Compared to ECG 07/19/2021 09:14:44 Ventricular premature complex(es) now present Aberrant conduction of supraventricular beat(s) now present Indeterminate axis now present Low QRS voltage now present Right-axis deviation no longer present Myocardial infarct finding still present Electronically Signed On 08-04-2021 14:11:08 DEVELOPER ADVOCATE by Antonietta Jo M.D. [id number]
[2021-08-03 12:45] LABS: ABG PH Result 7.35 (7.35-7.45); Arterial Blood Gas Hematocrit 24.8 % (37-47); Base Excess ABG 9.1 mmol/L (-2.0-2.0); Blood Gas Allen Test Pos; Blood Gas Operator Identificat MONRO; Blood Gas Sample Site Brachial, left; Blood Gas Sample Type Arterial; Oxygen Device NC
[2021-08-03 12:47] LABS: ABG PCO2 65.6 mmHg (35-45)
[2021-08-03 12:59] LABS: Basophils % 0.8 %; Eosinophils # 0.2 10^3/uL (0.0-0.8); Eosinophils % 5.8 %; Lymphocytes # 1.1 10^3/uL (0.8-4.8); Lymphocytes % 30.1 %; Mean Corpuscular HGB Conc 29.6 g/dL (30.0-36.0); Mean Corpuscular Hemoglobin 29.6 pg (28.0-34.0); Mean Platelet Volume 12.9 fL (7.4-10.4); Monocytes # 0.3 10^3/uL (0.2-0.9); Monocytes % 9.3 %; Neutrophils # 1.94 10^3/uL (1.8-7.7); Neutrophils % 53.2 %; Nucleated Red Blood Cells % 0 %; Platelet Count 146 10^3/cmm (130-400); Red Cell Distribution Width 18.1 % (12.1-15.1); White Blood Count 3.7 10^3/uL (4.0-10.0)
[2021-08-03 13:27] LABS: NT Pro B Type Natriuretic Pept 23553 pg/mL (0-450)
[2021-08-03 13:38] LABS: Alanine Aminotransferase 8 U/L (0-33); Albumin Level 2.6 g/dL (3.5-5.2); Alkaline Phosphatase 257 IU/L (35-105); Anion Gap 10.9 (5-19); Aspartate Amino Transferase 43 U/L (0-32); Blood Urea Nitrogen 9 mg/dL (8-23); Carbon Dioxide 30 mmol/L (22-29); Chloride 95 mmol/L (98-107); Globulin 2.8 g/dL (1.3-4.6); Glucose 185 mg/dL (65-115); Osmolality Calculated 277 mOsm/kg (285-295); Potassium 3.9 mmol/L (3.5-5.1); Sodium 132 mmol/L (136-145); Total Bilirubin 0.4 mg/dL (0.15-1.2); Total Protein 5.4 g/dL (6.6-8.7)
[2021-08-03 13:42] LABS: Troponin(5th) Baseline 122 ng/L (0-10)
[2021-08-03] MEDS: ondansetron 2 mg/ML SDV 2 mL 4 MG IVP (14:03)
[2021-08-03] MEDS: sodium chloride 0.9% 1,000 ML 999 ML IV (14:05)
--- NOTE | 2021-08-03 14:13 | PC.PHAR ---
pt is from [facility]-ryan nurse from [facility] [place] the pt took her am meds-vitamin d not on pts mar from [facility]-ryan nurse from [facility] [place] this was a new order today that hasnt been put on mar yet states the pt had this am
--- NOTE | 2021-08-03 14:17 | PC.NURSE ---
Trop of [address] Renee.
[2021-08-03 15:49] LABS: ABG PCO2 55.6 mmHg (35-45); Arterial Blood Gas Hematocrit 24.6 % (37-47); Base Excess ABG 8.2 mmol/L (-2.0-2.0); Blood Gas Allen Test Pos; Blood Gas Sample Type Arterial; HCO3 ABG 34.1 mmol/L (22-26); PO2 ABG 66.2 mmHg (80.0-100.0)
[2021-08-03 15:50] LABS: Blood Gas Operator Identificat MONRO; Blood Gas Sample Site Brachial, right; Oxygen Device BIPAP
--- NOTE | 2021-08-03 16:19 | P.HP_ITS ---
Providers/Chief Complaint Primary Care Provider: Pascual Kay MD Chief Complaint: COVID, LOW O2 History of Present Illness Carole Lee is a 75 year old female who was recently discharged from the hospital on 07/22 after prolonged hospitalization, she has history of bilateral pleural effusions, pleural effusion improved after 2 session of dialysis, INR goal 1.5-2 because of high risk of bleed, Permacath was placed for dialysis on previous visit, (she bled a lot with femoral dialysis catheter placement on last visit, also got infected at dialysis insertion site and required IV antibiotics, required albumin for hypotension, went into fluid overload, which cleared with dialysis, family made her comfort care, when patient became more lucid she changed her CODE STATUS to full code, she was discharged with LifeVest, EF 20 to 25%) She has presented today with worsening shortness of breath, has been diagnosed with COVID-19 infection.Patient is coming from [facility], patient is stating that she was put on 4 L nasal cannula, she tested positive on Friday. Her last dialysis session was yesterday. It was done 1 day before because of her COVID infection In the ER she was diagnosed with mild hypercapnia however pH compensated, she was put on BiPAP, chest x-ray consistent with pneumonia related to COVID-19 At the time of evaluation he was awake and alert on BiPAP, in front of her nurse she stated that she does not want to live on a ventilator and this should be conveyed to her family she also said she do not want chest compressions in case of cardiac arrest Leukopenia, anemia noted, nephro consulted Review of Systems Const: Reports: chills and body aches Eyes: Denies: change in vision ENMT: Denies: throat pain Card: Denies: chest pain Resp: Reports: dyspnea GI: Denies: abdominal pain : Denies: flank pain Musc: Reports: back pain Skin/Breast: Reports: rash and sores Neuro: Denies: headache(s) Psych: Reports: anxiety Endo: Denies: polyuria Jewel/Lymph: Denies: easy bruising All/Imm: Denies: urticaria Medications/Allergies Home Medications Medication Instructions Recorded Confirmed Last Taken Type clopidogrel 75 mg PO DAILY@0800 11/29/20 08/03/21 08/03/21 History atorvastatin 80 mg PO BEDTIME@12/07/20 08/03/21 08/02/21 History calcitriol 0.25 mcg PO DAILY@0801/16/21 08/03/21 08/03/21 History citalopram 10 mg PO DAILY@79902/28/21 08/03/21 08/03/21 History docusate sodium 100 mg PO DAILY PRN 02/28/21 08/03/21 07/04/21 History insulin aspart U-100 [Novolog See Rx Instructions .ROUTE .COMPLEX 06/13/21 08/03/21 07/26/21 07:00 History Flexpen U-100 Insulin] 3 units phenytoin sodium extended 200 mg PO BID@06/13/21 08/03/21 08/03/21 History bisacodyl 10 mg MD DAILY PRN 07/04/21 08/03/21 Unknown History folic acid 2 mg PO DAILY@08 07/04/21 08/03/21 08/03/21 History levothyroxine 25 mcg PO DAILY@07/04/21 08/03/21 08/03/21 History levothyroxine 200 mcg PO DAILY@07/04/21 08/03/21 08/03/21 History magnesium hydroxide [Milk of 5 ml PO QID PRN 07/04/21 08/03/21 Unknown History Magnesia] pantoprazole [Protonix] 40 mg PO DAILY@08 07/04/21 08/03/21 08/03/21 History metoprolol tartrate 50 mg PO BID@,20 #0 tab 07/22/21 08/03/21 08/03/21 Rx spironolactone 6.25 mg PO DAILY@08 #0 tab 07/22/21 08/03/21 08/03/21 Rx polyethylene glycol 3350 [Miralax] 17 g PO DAILY PRN 07/26/21 08/03/21 Unknown History sennosides-docusate sodium 2 tab PO BID PRN 07/26/21 08/03/21 Unknown History [Senna-S] sodium phosphates [Enema 118 ml MD DAILY PRN 07/26/21 08/03/21 Unknown History Disposable] warfarin 1.5 mg PO DAILY@14 07/26/21 08/03/21 08/02/21 History albuterol sulfate [ProAir HFA] 2 puff INHALATION Q6H PRN 08/03/21 08/03/21 Unknown History cholecalciferol (vitamin D3) 25 mcg PO DAILY@08 08/03/21 08/03/21 08/03/21 History [Vitamin D3] diazepam 2 mg PO BID PRN 08/03/21 08/03/21 Unknown History meclizine 25 mg PO TID PRN 08/03/21 08/03/21 08/03/21 History ondansetron [Zofran ODT] 8 mg PO TID PRN 08/03/21 08/03/21 08/03/21 History Allergies Allergy/AdvReac Type Severity Reaction Status Date / Time gentamicin Allergy Unknown Verified 08/03/21 14:13 hydromorphone [From Dilaudid] Allergy Unknown Verified 08/03/21 14:13 PFSH Acute PFSH: Medical History Acute hypercapnic respiratory failure Afib Anemia Atrial fibrillation with RVR CAD (coronary artery disease) Chronic anticoagulation Eliquis CKD (chronic kidney disease) Congestive heart failure Diabetes Dyslipidemia Hematoma of left flank HTN (hypertension) Morbid obesity Morbid obesity NSTEMI (non-ST elevated myocardial infarction) PVD (peripheral vascular disease) 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) Status post insertion of drug-eluting stent into left anterior descending (LAD) artery Urine retention Venous stasis Surgical History History of ankle surgery History of cataract surgery History of cholecystectomy History of heart artery stent History of umbilical hernia repair S/P hemodialysis catheter insertion (11/22/20) Right internal jugular vein d/c 12/25/20 Family History Other Cancer Diabetes Social History Smoking and tobacco status: never smoked Alcohol intake: never Marital status: / Current occupational status: retired History of recent travel: No Vitals/I&O/Wt Last Vital Signs Temp 97.8 F 08/03/21 12:19 Pulse 75 01/21/22 15:05 Resp 18 08/03/21 12:19 BP 97/47 08/03/21 12:19 Pulse Ox 96 08/03/21 15:05 Weight last 48 hrs Weight 181.437 kg Physical Exam Narrative: EXAM NARRATIVE: morbidly obese female Currently on BiPAP Lucid Awake alert oriented x3 GCS 15 Abdominal pannus without any signs of cellulitis however purulent drainage noted at the site of dialysis catheter placement right groin Decubitus sacral ulcer present Assisted bilateral breath sounds Abdominal pannus, visceral obesity Nontender Awake and alert Anxious mood Data : 08/03/21 12:52 08/03/21 12:52 A&P Assessment and plan (1) COVID-19: Status: Acute (2) Acute on chronic respiratory failure with hypoxia and hypercapnia: Status: Acute (3) Warfarin-induced coagulopathy: Status: Acute (4) Diabetes: Status: Acute Qualifiers: Chronic kidney disease stage: stage 3 (moderate) Chronic kidney disease stage 3 subtype: stage 3b (GFR 30-44) Diabetes mellitus complication detail: with chronic kidney disease Diabetes mellitus complication status: with kidney complications Diabetes mellitus assisted insulin use: with assisted use D iabetes mellitus type: type 2 Qualified Code(s): E11.22 - Type 2 diabetes mellitus with diabetic chronic kidney disease; N18.32 - Chronic kidney disease, stage 3b; Z79.4 - care home (current) use of insulin (5) Venous stasis: Status: Chronic (6) End stage renal disease: Status: Acute (7) Anemia, chronic disease: Status: Acute Additional A&P Information COVID-19 Currently on BiPAP pH compensated however hypercapnia noted Continue remdesivir and Decadron She is immunocompromise, would avoid Actemra Patient stated that she does not want chest compression or intubation in case of an emergency cardiac arrest or respiratory failure Will update her family This was witnessed by her ER nurse Concern for pneumonia as well would use cefepime and Levaquin, MRSA PCR was negative on last visit End-stage renal disease Friday, last dialysis was yesterday We will consult nephro Anemia of chronic disease Hemoglobin stable, macrocytic Diabetes: Sliding scale, consistent carb diet Warfarin induced colopathy, check INR High risk for bleeding keep INR between 1.5-2 Infected right groin dialysis catheter insertion site Would use doxycycline Sacral ulcer Nursing care, zinc oxide, dressing change daily basis Chronic hypotension Midodrine Albumin 2.6 DNR/DNI Consistent carb diet Currently on Coumadin Guarded prognosis Attestations Medical Necessity Statement*: More than 2 midnights anticipated Time Spent in Patient Care: Greater than 35 minutes Coding Level of Care Code Acute Tactical Deception Plans Officer for Chg Fwd Diagnoses COVID-19 U07.1 Acute on chronic respiratory failure with hypoxia and hypercapnia J96.21; J96.22 Warfarin-induced coagulopathy D68.32; T45.515A Diabetes E11.22; N18.32; Z79.4 Chronic kidney disease stage: stage 3 (moderate) Chronic kidney disease stage 3 subtype: stage 3b (GFR 30-44) Diabetes mellitus complication detail: with chronic kidney disease Diabetes mellitus complication status: with kidney complications Diabetes mellitus keno terminal operator insulin use: with keno terminal operator use Diabetes mellitus type: type 2 Venous stasis I87.8 End stage renal disease N18.6 Anemia, chronic disease D63.8
--- NOTE | 2021-08-03 18:25 | ECG_ITS ---
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 Measurements Intervals [place] Rate: 85 P: OR: QRS: 109 QRSD: 122 T: 0 QT: 409 QTc: 489 Interpretive Statements ATRIAL FIBRILLATION RIGHT AXIS DEVIATION [QRS AXIS > 100] ANTEROSEPTAL MYOCARDIAL INFARCTION , PROBABLY OLD [40+ ms Q WAVE IN V1-V4] Compared to ECG 08/03/2021 12:35:20 Right-axis deviation now present Ventricular premature complex(es) no longer present Aberrant conduction of supraventricular beat(s) no longer present Indeterminate axis no longer present Myocardial infarct finding still present Electronically Signed On 08-05-2021 20:06:54 INFORMATION RESOURCES MANAGER by Antonietta Jo M.D. [id number]
[2021-08-03] MEDS: remdesivir 200 MG in sodium chloride 0.9% (100 ml) 60 ML 100 MG IV (19:19)
[2021-08-03] MEDS: dexamethasone 10 mg/mL INJ IVP (19:21)
[2021-08-03 19:54] LABS: Troponin 5 6HR Delta 0.7 ng/L (0-12)
[2021-08-03 19:59] LABS: Troponin 5 6HR 122.7 ng/L (0-10)
[2021-08-04] VITALS (12 sets, daily range): BP systolic 82–113; BP diastolic 47–78; PULSE 56–91; RESP 15–21; TEMP 36.4–36.9; O2SAT 92–99
[2021-08-04] MEDS: metoprolol tartrate 25 mg Tablet 50 MG PO ×2 (00:13→09:19)
[2021-08-04] MEDS: atorvastatin 40 mg Tablet 80 MG PO ×2 (00:13→20:29)
[2021-08-04] MEDS: phenytoin ER 100 mg Capsule 200 MG PO ×3 (00:14→20:29)
[2021-08-04] MEDS: cefepime 2,000 MG in sodium chloride 0.9% (plus) 50 ML 100 MG IV ×2 (00:14→15:29)
[2021-08-04] MEDS: insulin lispro 100 unit/1 mL SUBCUT (00:14)
[2021-08-04 03:23] LABS: ABG PH Result 7.37 (7.35-7.45); Arterial Blood Gas Hematocrit 24.7 % (37-47); Base Excess ABG 7.4 mmol/L (-2.0-2.0); Blood Gas Sample Site Brachial, left; Blood Gas Sample Type Arterial; HCO3 ABG 33.8 mmol/L (22-26); Oxygen Device BIPAP; PO2 ABG 93.6 mmHg (80.0-100.0)
[2021-08-04 04:08] LABS: Basophils % 0.4 %; Eosinophils % 0.4 %; Hematocrit 26.8 % (37.0-47.0); Hemoglobin 7.8 g/dL (11.5-15.3); Lymphocytes # 0.7 10^3/uL (0.8-4.8); Lymphocytes % 27.2 %; Mean Corpuscular HGB Conc 29.1 g/dL (30.0-36.0); Mean Corpuscular Hemoglobin 29.5 pg (28.0-34.0); Mean Corpuscular Volume 101.5 fl (81-99); Mean Platelet Volume 13.4 fL (7.4-10.4); Monocytes # 0.2 10^3/uL (0.2-0.9); Monocytes % 8.4 %; Neutrophils # 1.51 10^3/uL (1.8-7.7); Neutrophils % 63.2 %; Nucleated Red Blood Cells % 0 %; Platelet Count 128 10^3/cmm (130-400); Red Blood Count 2.64 10^6/uL (4.1-5.3); Red Cell Distribution Width 17.9 % (12.1-15.1); White Blood Count 2.4 10^3/uL (4.0-10.0)
[2021-08-04 04:36] LABS: Blood Urea Nitrogen 12 mg/dL (8-23); C Reactive Protein 141.8 mg/L (0.0-4.9); Calcium 7.6 mg/dL (8.5-10.5); Carbon Dioxide 23 mmol/L (22-29); Chloride 99 mmol/L (98-107); Glucose 142 mg/dL (65-115); Magnesium 1.7 mg/dL (1.7-2.3); Osmolality Calculated 282 mOsm/kg (285-295); Sodium 135 mmol/L (136-145)
[2021-08-04 04:37] LABS: Anion Gap 17.4 (5-19); Lactate Dehydrogenase 382 U/L (135-214); Potassium 4.4 mmol/L (3.5-5.1)
[2021-08-04] MEDS: levothyroxine 25 mcg Tablet PO (06:25)
[2021-08-04] MEDS: levothyroxine 200 mcg Tablet PO (06:25)
[2021-08-04 06:32] LABS: Glucose Point of Care 107 mg/dL (70-110)
--- NOTE | 2021-08-04 07:22 | P.CONIM_ITS ---
Providers/Reason For Consult Consulting Physician/Specialty*: Ashley Russell DO, telenephrology Reason for Consult*: ESRD Attending Physician: Ruddy Berkowitz MD Primary Care Provider: Pascual Kay MD History of Present Illness History of Present Illness Carole Lee is a 75 year old female presenting with dyspnea. Diagnosed with COVID07/31/20. ESRD HD Friday and this week. States she feels weak. Very little urine output. Review of Systems Card: Denies: chest pain Resp: Denies: dyspnea Medications/Allergies Home Medications Medication Instructions Recorded Confirmed Last Taken Type clopidogrel 75 mg PO DAILY@0800 11/29/20 08/03/21 08/03/21 History atorvastatin 80 mg PO BEDTIME@12/07/20 08/03/21 08/02/21 History calcitriol 0.25 mcg PO DAILY@0800 01/16/21 08/03/21 08/03/21 History citalopram 10 mg PO DAILY@0802/28/21 08/03/21 08/03/21 History docusate sodium 100 mg PO DAILY PRN 02/28/21 08/03/21 07/04/21 History insulin aspart U-100 [Novolog See Rx Instructions .ROUTE .COMPLEX 06/13/21 08/03/21 07/26/21 07:00 History Flexpen U-100 Insulin] 3 units phenytoin sodium extended 200 mg PO BID@06/13/21 08/03/21 08/03/21 History [address]ac[address] DAILY PRN 07/04/21 08/03/21 Unknown History folic acid 2 mg PO DAILY@07/04/21 08/03/21 08/03/21 History levothyroxine 25 mcg PO DAILY@07/04/21 08/03/21 08/03/21 History levothyroxine 200 mcg PO DAILY@07/04/21 08/03/21 08/03/21 History magnesium hydroxide [Milk of 5 ml PO QID PRN 07/04/21 08/03/21 Unknown History Magnesia] pantoprazole [Protonix] 40 mg PO DAILY@08 07/04/21 08/03/21 08/03/21 History metoprolol tartrate 50 mg PO BID@ #0 tab 01/04/0408/03/21 08/03/21 Rx spironolactone 6.25 mg PO DAILY@08 #0 tab 07/22/21 08/03/21 08/03/21 Rx polyethylene glycol 3350 [Miralax] 17 g PO DAILY PRN 07/26/21 08/03/21 Unknown History sennosides-docusate sodium 2 tab PO BID PRN 07/26/21 08/03/21 Unknown History [Senna-S] sodium phosphates [Enema [address] DAILY PRN 07/26/21 08/03/21 Unknown History Disposable] warfarin 1.5 mg PO DAILY@14 07/26/21 08/03/21 08/02/21 History albuterol sulfate [ProAir HFA] 2 puff INHALATION Q6H PRN 08/03/21 08/03/21 Unknown History cholecalciferol (vitamin D3) 25 mcg PO DAILY@08 08/03/21 08/03/21 08/03/21 History [Vitamin D3] diazepam 2 mg PO BID PRN 08/03/21 08/03/21 Unknown History meclizine 25 mg PO TID PRN 08/03/21 08/03/21 08/03/21 History ondansetron [Zofran ODT] 8 mg PO TID PRN 08/03/21 08/03/21 08/03/21 History Allergies Allergy/AdvReac Type Severity Reaction Status Date / Time gentamicin Allergy Unknown Verified 08/03/21 14:13 hydromorphone [From Dilaudid] Allergy Unknown Verified 08/03/21 14:13 Current Medications Generic Name Dose Route Start Last Admin Trade Name Susan PRN Reason Stop Dose Admin Atorvastatin Calcium 80 mg 08/03/21 23:02 08/04/21 00:13 Atorvastatin 40 Mg Tablet PO 80 mg BEDTIME@20 ARMINDA Administration Cefepime HCl 2,000 mg/ Sodium 50 mls @ 100 mls/hr 08/03/21 23:02 08/04/21 00:45 Chloride IV Infused Q12H ARMINDA Infusion Protocol Insulin Human Lispro 0 unit 08/03/21 23:02 08/04/21 00:14 Insulin Lispro 100 Unit/1 Ml SUBCUT 4 unit TIDWM ARMINDA Administration Protocol Levothyroxine Sodium 25 mcg 08/04/21 06:00 08/04/21 06:25 Levothyroxine 25 Mcg Tablet PO 25 mcg DAILY@06 ARMINDA Administration Levothyroxine Sodium 200 mcg 08/04/21 06:00 08/04/21 06:25 Levothyroxine 200 Mcg Tablet PO 200 mcg DAILY@06 ARMINDA Administration Metoprolol Tartrate 50 mg 08/03/21 23:02 08/04/21 00:13 Metoprolol Tartrate 25 Mg Tablet PO 50 mg BID@ ARMINDA Administration Phenytoin 200 mg 08/03/21 23:02 08/04/21 00:14 Phenytoin Er 100 Mg Capsule PO 200 mg BID@, ARMINDA Administration PFSH Acute PFSH: Medical History Acute hypercapnic respiratory failure Afib Anemia Atrial fibrillation with RVR CAD (coronary artery disease) Chronic anticoagulation Eliquis CKD (chronic kidney disease) Congestive heart failure Diabetes Dyslipidemia Hematoma of left flank HTN (hypertension) Morbid obesity Morbid obesity NSTEMI (non-ST elevated myocardial infarction) PVD (peripheral vascular disease) 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) Status post insertion of drug-eluting stent into left anterior descending (LAD) artery Urine retention Venous stasis Surgical History History of ankle surgery History of cataract surgery History of cholecystectomy History of heart artery stent History of umbilical hernia repair S/P hemodialysis catheter insertion (11/22/20) Right internal jugular vein d/c 12/25/20 Family History Other Cancer Diabetes Social History Smoking and tobacco status: never smoked Alcohol intake: never Marital status: / Current occupational status: retired History of recent travel: No Vitals/I&O/Wt Last Vital Signs Temp 98.2 F 08/04/21 04:00 Pulse 56 L 08/04/21 04:00 Resp 21 H 08/04/21 04:00 BP 95/58 08/04/21 04:00 Pulse Ox 99 08/04/21 04:00 08/03/21 08/04/21 08/04/21 22:59 06:59 14:59 Intake Total 130 / 130 Balance 130 / 130 Weight last 48 hrs Weight 139.525 kg Weight 157.941 kg Weight 181.437 kg Physical Exam Const: COMMON NORMALS: no acute distress Neck/C-Spine: OTHER: IJ tunneled HD catheter Data Labs: Other Labs: albumin 2.6, Ca 7.6, Mg 1.7, proBNP 23,553 Micro: Micro: Microbiology 08/03/21 19:18 Blood Culture - Pr eliminary Blood SPECIMEN [facility] ANN 08/03/21 19:24 Blood Culture - Pr eliminary Blood SPECIMEN [facility] Imaging^: CXR: Radiologist's impression: 1. Development of patchy groundglass infiltrates throughout the right lung. 2. Increased density in the left retrocardiac region most likely representing consolidating infiltrate in the left lower lobe. There may be small left pleural effusion. 3. Cardiac enlargement unchanged. 4. Double lumen dialysis catheter appearing to end in the upper one third of the SVC. ABG^: ABG Interpretation 1: 7.37/59/93.6 on 30% BiPAP A&P Additional A&P Information Seen during dialysis via telehealth with assistance of RN at bedside 1. ESRD 2. COVID, receiving remdesivir and decadron, antibiotics for possible bacterial pneumonia 3. Fluid overload 4. Anemia 5. Diabetes Plan: Blood pressure low. Reduce metoprolol. HD today, fluid removal as BP tolerates, check iron studies. consider transfusion pRBC. will give epogen at dialysis. Next HD FridayAug 06 Consult Attestations Medical Necessity Statement: see above Time Spent in Patient Care: 16 - 35 minutes Coding Level of Care Code Acute Traveling Clerk for Sosa Bates
[2021-08-04] MEDS: folic acid 1 mg Tablet 2 MG PO (09:19)
[2021-08-04] MEDS: cholecalciferol (vitamin D3) 1,000 unit Tablet 1000 UNIT PO (09:19)
[2021-08-04] MEDS: pantoprazole DR 40 mg Tablet PO (09:20)
[2021-08-04] MEDS: spironolactone 25 mg Tablet 6.25 MG PO (09:20)
[2021-08-04] MEDS: calcitriol 0.25 mcg Capsule PO (09:20)
[2021-08-04] MEDS: clopidogrel 75 mg Tablet PO (09:20)
[2021-08-04] MEDS: levoFLOXacin 750 mg Tablet PO (09:20)
[2021-08-04] MEDS: dexamethasone 10 mg/mL INJ 6 MG IVP (09:20)
--- NOTE | 2021-08-04 09:50 | P.PN_ITS ---
Subjective Subjective: Interval history: Nephro consulted No overnight events Patient is on nasal cannula this morning off BiPAP, patient is stating that she is feeling cold I adjusted her room temperature Did not endorse any active chest pain or shortness of breath Vitals/I&O/Wt Last Vital Signs Temp 98.2 F 08/04/21 09:05 Pulse 72 08/04/21 09:05 Resp 15 08/04/21 09:05 BP 95/60 08/04/21 09:05 Pulse Ox 96 08/04/21 09:05 08/03/21 08/04/21 08/04/21 22:59 06:59 14:59 Intake Total 130 / 130 Balance 130 / 130 Weight last 48 hrs Weight 139.525 kg Weight 157.941 kg Weight 181.437 kg Physical Exam Narrative: EXAM NARRATIVE: Patient was on 2 L nasal cannula in the morning however it was weaned off to room air No active shortness of breath or chest pain Abdomen soft Abdominal pannus without any active sign of cellulitis or yeast infection She has mild round shape purulent wound at previous dialysis catheter placement site Nonpitting edema of legs Awake and alert Nonfocal neuro exam Sacral decubitus ulcer Data : 08/04/21 02:39 08/04/21 02:39 Micro: Microbiology 08/03/21 19:18 Blood Culture - Preliminary Blood SPECIMEN COLLECTED 08/03/21 19:24 Blood Culture - Preliminary Blood SPECIMEN COLLECTED A&P Assessment and plan (1) Anemia, chronic disease: Status: Acute (2) End stage renal disease: Status: Acute (3) COVID-19: Status: Acute (4) Acute on chronic respiratory failure with hypoxia and hypercapnia: Status: Acute (5) Warfarin-induced coagulopathy: Status: Acute (6) Diabetes: Status: Acute Qualifiers: Chronic kidney disease stage: stage 3 (moderate) Chronic kidney disease stage 3 subtype: stage 3b (GFR 30-44) Diabetes mellitus complication detail: with chronic kidney disease Diabetes mellitus complication status: with kidney complications 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: with [facility] use Diabetes mellitus type: type 2 Qualified Code(s): E11.22 - Type 2 diabetes mellitus with diabetic chronic kidney disease; N18.32 - Chronic kidney disease, stage 3b; Z79.4 - intermodal truck driver (current) use of insulin (7) Venous stasis: Status: Chronic Additional A&P Information COVID-19 related hypoxia Currently on room air, improved with BiPAP overnight Continue remdesivir and Decadron Coronary disease status post recent stent, continue Plavix and Coumadin INR target 1.5-2 End-stage renal disease, Friday, nephro consulted High troponin no active chest pain EKG without ischemic or infarctive changes Likely type II PA with COVID related myocarditis? Hypotension which is chronic, might benefit from albumin Continue midodrine Consistent carb diet for type 2 diabetes along sliding scale insulin Venous stasis dermatitis DNR/DNI Anemia of chronic disease Will discharge back to [place] once clinically stable Attestations Medical Necessity Statement*: Continue medical management Time Spent in Patient Care: less than 15 minutes Coding Level of Care Code Acute Physicist Solid State for g Fwd Diagnoses Anemia, chronic disease D63.8 End stage renal disease N18.6 COVID-19 U07.1 Acute on chronic respiratory failure with hypoxia and hypercapnia J96.21; J96.22 Warfarin-induced coagulopathy D68.32; T45.515A Diabetes E11.22; N18.32; Z79.4 Chronic kidney disease stage: stage 3 (moderate) Chronic kidney disease stage 3 subtype: stage 3b (GFR 30-44) Diabetes mellitus complication detail: with chronic kidney disease Diabetes mellitus complication status: with kidney complications 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
[2021-08-04 12:08] LABS: INR 1.68 (0.8-1.2)
[2021-08-04 12:09] LABS: D Dimer 1.01 ug/mIFEU (0-0.59)
[2021-08-04 12:21] LABS: Iron 32 ug/dL (37-145); Percent Saturation 29.3 % (20-50); Phosphorus 2.1 mg/dL (2.5-4.5); Total Iron Binding Capacity 109 mcg/dl; Unsaturated Iron Binding 77 ug/dL (112-347)
[2021-08-04 12:28] LABS: Hepatitis B Surface Antigen Non-Reactive (Nonreactive); Hepatitis C Virus Antibody Non-Reactive (Nonreactive)
[2021-08-04 12:34] LABS: Ferritin 1329 ng/mL (15-150)
[2021-08-04 14:08] LABS: Hepatitis B Surface AB 7.4 (11.5-1000)
[2021-08-04] MEDS: warfarin 1 mg Tablet 1.5 MG PO (15:29)
[2021-08-04] MEDS: epoetin alfa (ESRD) 8,000 UNIT in SYRINGE 1 EACH 0.4 UNIT IVP (15:50)
[2021-08-04] MEDS: remdesivir 100 MG in sodium chloride 0.9% (100 ml) 100 ML IV (17:56)
[2021-08-04 18:21] LABS: Glucose Point of Care 134 mg/dL (70-110)
[2021-08-04 21:03] LABS: Glucose Point of Care 174 mg/dL (70-110)
[2021-08-04] MEDS: diazePAM 2 mg Tablet PO (23:00)
[2021-08-05] VITALS (13 sets, daily range): BP systolic 85–137; BP diastolic 38–79; PULSE 70–83; RESP 17–32; TEMP 36.3–36.8; O2SAT 90–100
[2021-08-05] MEDS: ipratropium-albuterol 3 mL Neb INHALATION ×2 (03:10→14:30)
--- NOTE | 2021-08-05 03:11 | PC.NURSE ---
Assumed pt care: Report given from RN and assumed pt care at this time. Pt is awake and on 2L NC, says feels short of breath - respiratory notified and breathing tx given, pt lifted up in bed and now resting comfortably. Call light is within reach.
[2021-08-05 03:58] LABS: Basophils % 0.6 %; Eosinophils % 0.9 %; Hematocrit 29.1 % (37.0-47.0); Hemoglobin 8.2 g/dL (11.5-15.3); Lymphocytes # 1.1 10^3/uL (0.8-4.8); Lymphocytes % 34.4 %; Mean Corpuscular HGB Conc 28.2 g/dL (30.0-36.0); Mean Corpuscular Hemoglobin 29.7 pg (28.0-34.0); Mean Corpuscular Volume 105.4 fl (81-99); Mean Platelet Volume 13.3 fL (7.4-10.4); Monocytes # 0.3 10^3/uL (0.2-0.9); Monocytes % 9.8 %; Neutrophils # 1.72 10^3/uL (1.8-7.7); Neutrophils % 52.8 %; Nucleated Red Blood Cells % 0 %; Platelet Count 154 10^3/cmm (130-400); Red Blood Count 2.76 10^6/uL (4.1-5.3); Red Cell Distribution Width 18.2 % (12.1-15.1); White Blood Count 3.3 10^3/uL (4.0-10.0)
[2021-08-05 04:15] LABS: INR 1.69 (0.8-1.2)
[2021-08-05 04:27] LABS: Anion Gap 12.4 (5-19); Blood Urea Nitrogen 8 mg/dL (8-23); Calcium 7.3 mg/dL (8.5-10.5); Carbon Dioxide 29 mmol/L (22-29); Chloride 100 mmol/L (98-107); Glucose 124 mg/dL (65-115); Osmolality Calculated 286 mOsm/kg (285-295); Potassium 3.4 mmol/L (3.5-5.1); Sodium 138 mmol/L (136-145)
[2021-08-05] MEDS: levothyroxine 25 mcg Tablet PO (06:48)
[2021-08-05] MEDS: levothyroxine 200 mcg Tablet PO (06:48)
--- NOTE | 2021-08-05 07:32 | PM.PN ---
Subjective Subjective: Interval history: more short of breath today. [place] more comfortable on BiPAP. also requesting nebulizer treatment Medications: Reviewed: Yes Vitals/I&O/Wt Last Vital Signs Temp 98.0 F 08/05/21 04:00 Pulse 70 08/05/21 04:00 Resp 17 08/05/21 04:00 BP 92/58 08/05/21 04:00 Pulse Ox 98 08/05/21 04:00 08/04/21 08/05/21 08/05/21 22:59 06:59 14:59 Intake Total 510.4 / 510.4 240 / 750.4 Balance 510.4 / 510.4 240 / 750.4 Weight last 48 hrs Weight 139.525 kg Weight 157.941 kg Weight 181.437 kg Physical Exam Const: GENERAL APPEARANCE: anxious Data : 08/05/21 02:35 08/05/21 02:35 Other Labs: phos 2.1, Ca 7.3, albumin 2.6 TSAT 29%, SF 1329 Micro: Microbiology 08/03/21 19:18 Blood Culture - Preliminary Blood 08/03/21 19:24 Blood Culture - Preliminary Blood NEGATIVE TO DATE ABG Interpretation 1: 7.37/59/93 30% BiPAP A&P Additional A&P Information Seen via telehealth with assistance of RN at bedside 1. ESRD 2. COVID, receiving remdesivir and decadron, antibiotics for possible bacterial pneumonia 3. Fluid overload 4. Anemia, iron repelete, will give epogen at dialysis. 5. Diabetes 6. Hypophosphatemia, not receiving phosphate binder Plan: Next HD FridayAug 06. Respiratory will be contacted by RN to place back on BiPAP Attestations Medical Necessity Statement*: see above Time Spent in Patient Care: 16 - 35 minutes Coding Level of Care Code Acute Foam Gun Operator for Sosa Bates
[2021-08-05 07:54] LABS: Glucose Point of Care 150 mg/dL (70-110)
--- NOTE | 2021-08-05 08:56 | PM.PN ---
Subjective Subjective: Interval history: Patient was complaining of shortness of breath this morning, when I checked her pulse ox she was saturating 86% on 3 L nasal cannula, I bumped her oxygen up to 7L That improved her oxygen saturation 94%, she does mention dry cough She is stating that she had a rough night could not sleep No active chest pain No active nausea or vomiting Vitals/I&O/Wt Last Vital Signs Temp 97.3 F L 08/05/21 07:37 Pulse 83 08/05/21 07:37 Resp 18 08/05/21 07:37 BP 137/79 08/05/21 07:37 Pulse Ox 94 08/05/21 07:37 08/04/21 08/05/21 08/05/21 22:59 06:59 14:59 Intake Total 510.4 / 510.4 240 / 750.4 Balance 510.4 / 510.4 240 / 750.4 Weight last 48 hrs Weight 139.525 kg Weight 157.941 kg Weight 181.437 kg Physical Exam Narrative: EXAM NARRATIVE: Currently on 7 L nasal cannula Fatigued and lethargic Bilateral breath sound with rhonchi Abdominal pannus without cellulitis Purulent wound base around right groin Venous stasis dermatitis Stage I ulcer Nonfocal neuro exam Patient is awake and alert Data : 08/05/21 02:35 08/05/21 02:35 Micro: Microbiology 08/03/21 19:18 Blood Culture - Preliminary Blood 08/03/21 19:24 Blood Culture - Preliminary Blood NEGATIVE TO DATE A&P Assessment and plan (1) Anemia, chronic disease: Status: Acute (2) End stage renal disease: Status: Acute (3) COVID-19: Status: Acute (4) Acute on chronic respiratory failure with hypoxia and hypercapnia: Status: Acute (5) Venous stasis: Status: Chronic Additional A&P Information COVID-19 related hypoxia currently requiring 7 L nasal cannula I will start baricitinib Continue remdesivir and Decadron Stage I sacral ulcer Right groin purulent ulcer: Doxycycline and topical antibiotic No active chest pain recent stent placement with established coronary disease INR goal 1.5-2 continue Plavix along Coumadin Type II [place] Chronic hypertension however no signs of hypoperfusion Low albumin Continue midodrine Anemia of chronic disease: Management as per nephro Consistent carb diet Min assist dermatitis DNR/DNI Discharge back to [facility] once oxygen saturation is better on 5 to 6 L nasal cannula Guarded prognosis Son updated Attestations Medical Necessity Statement*: Continue medical management Time Spent in Patient Care: 16 - 35 minutes Coding Level of Care Code Acute Counselor Nurs[employer] for Chg Fwd Diagnoses Anemia, chronic disease D63.8 End stage renal disease N18.6 COVID-19 U07.1 Acute on chronic respiratory failure with hypoxia and hypercapnia J96.21; J96.22 Venous stasis I87.8
[2021-08-05] MEDS: metoprolol tartrate 25 mg Tablet PO ×2 (09:21→20:07)
[2021-08-05] MEDS: calcitriol 0.25 mcg Capsule PO (09:21)
[2021-08-05] MEDS: spironolactone 25 mg Tablet 6.25 MG PO (09:21)
[2021-08-05] MEDS: levoFLOXacin 750 mg Tablet PO (09:21)
[2021-08-05] MEDS: clopidogrel 75 mg Tablet PO (09:21)
[2021-08-05] MEDS: pantoprazole DR 40 mg Tablet PO (09:21)
[2021-08-05] MEDS: phenytoin ER 100 mg Capsule 200 MG PO ×2 (09:22→20:07)
[2021-08-05] MEDS: insulin lispro 100 unit/1 mL SUBCUT ×2 (09:22→18:26)
[2021-08-05] MEDS: cholecalciferol (vitamin D3) 1,000 unit Tablet 1000 UNIT PO (09:22)
[2021-08-05] MEDS: folic acid 1 mg Tablet 2 MG PO (09:22)
[2021-08-05] MEDS: dexamethasone 10 mg/mL INJ 6 MG IVP (09:23)
[2021-08-05 09:33] LABS: Quest SARS-CoV-2 RNA DETECTED (NOT DETECTED)
[2021-08-05 09:44] LABS: Bacillus cereus group Not Detected (NOT DETECT); Bacillus subtillis group Not Detected (NOT DETECT); Corynebacterium Not Detected (NOT DETECT); Cutibacterium acnes (P.acnes) Not Detected (NOT DETECT); Enterococcus Not Detected (NOT DETECT); Enterococcus faecalis Not Detected (NOT DETECT); Enterococcus faecium Not Detected (NOT DETECT); Lactobacillus species Not Detected (NOT DETECT); Listeria Not Detected (NOT DETECT); Listeria monocytogenes Not Detected (NOT DETECT); Micrococcus Not Detected (NOT DETECT); Pan Candida Not Detected (NOT DETECT); Pan Gram-Negative Not Detected (NOT DETECT); Staphylococcus epidermidis Not Detected (NOT DETECT); Staphylococcus lugdunensis Not Detected (NOT DETECT); Staphylococcus species Detected (NOT DETECT); Streptococcus agalactiae Not Detected (NOT DETECT); Streptococcus anginosus group Not Detected (NOT DETECT); Streptococcus pneumoniae Not Detected (NOT DETECT); Streptococcus pyogenes Not Detected (NOT DETECT); Streptococcus species Not Detected (NOT DETECT); mecC Not Detected (NOT DETECT)
[2021-08-05 11:28] LABS: mecA Not Detected (NOT DETECT)
[2021-08-05 12:56] LABS: Glucose Point of Care 158 mg/dL (70-110)
[2021-08-05] MEDS: warfarin 1 mg Tablet 1.5 MG PO (14:29)
[2021-08-05] MEDS: diazePAM 2 mg Tablet PO (14:34)
--- NOTE | 2021-08-05 14:49 | ECG_ITS ---
[facility] Test Date: 2021-08-05 Pat Name: Carole Lee Department: Room: 267 Gender: Female Wet Process Assistant Head Miller: : 1945 Requested By: Ruddy Berkowitz Order Number: [id number] Danielle MD: Antonietta Jo M.D. Measurements Intervals [employer] Rate: 89 P: PA: QRS: 90 QRSD: 122 T: 227 QT: 392 QTc: 479 Interpretive Statements ATRIAL FIBRILLATION WITH ABERRANT CONDUCTION OR VENTRICULAR PREMATURE COMPLEXES POSSIBLE ANTERIOR MYOCARDIAL INFARCTION , OF INDETERMINATE AGE [30 ms Q WAVE IN V3/V4, OR R < 0.2 mV IN V4] Low voltage complexes in the limb leads Compared to ECG 08/03/2021 23:04:45 Ventricular premature complex(es) now present Aberrant conduction of supraventricular beat(s) now present Right-axis deviation no longer present Myocardial infarct finding still present Baseline artifacts, need to repeat Electronically Signed On 08-05-2021 20:05:31 SHOE RECONDITIONER by Antonietta Jo M.D. [email or web address]
[2021-08-05] MEDS: remdesivir 100 MG in sodium chloride 0.9% (100 ml) 100 ML IV (18:26)
[2021-08-05] MEDS: ondansetron 2 mg/ML SDV 2 mL 4 MG IVP (18:31)
--- NOTE | 2021-08-05 18:36 | PC.HD ---
Pre-treatment cath dressing changed. Dried blood caked along exterior length of catheter with slow ooze of bloody drainage noted after caked blood removed and site cleaned.
--- NOTE | 2021-08-05 20:00 | PC.NURSE ---
Shift report received from Rosario QUINN. Patient awake in bed. IV patent/SL. No s/s of pain or discomfort. No needs voiced at this time.
[2021-08-05 20:28] LABS: Glucose Point of Care 183 mg/dL (70-110)
[2021-08-05] MEDS: atorvastatin 40 mg Tablet 80 MG PO (20:33)
[2021-08-06] VITALS (16 sets, daily range): BP systolic 83–119; BP diastolic 41–68; PULSE 73–98; RESP 18–26; TEMP 36.1–36.7; O2SAT 90–100
--- NOTE | 2021-08-06 00:42 | PC.NURSE ---
Recheck on blood pressure / 92/58 manually.
[2021-08-06 03:41] LABS: ABG PCO2 57.5 mmHg (35-45); ABG PH Result 7.37 (7.35-7.45); Arterial Blood Gas Hematocrit 23.8 % (37-47); Base Excess ABG 6.7 mmol/L (-2.0-2.0); Blood Gas Allen Test Pos; Blood Gas Sample Site Brachial, left; Blood Gas Sample Type Arterial; Oxygen Device NC; PO2 ABG 72.8 mmHg (80.0-100.0)
--- NOTE | 2021-08-06 03:42 | PC.NURSE ---
bandage to RUE/ x2 bandages to LUE C/D/I
[2021-08-06] MEDS: diazePAM 2 mg Tablet PO (04:49)
[2021-08-06] MEDS: levothyroxine 200 mcg Tablet PO (04:49)
[2021-08-06] MEDS: acetaminophen 325 mg Tablet 650 MG PO (04:49)
[2021-08-06] MEDS: levothyroxine 25 mcg Tablet PO (04:49)
--- NOTE | 2021-08-06 05:09 | PC.NURSE ---
Patient is very anxious /c/o of shortness of breath. O2 90% on 4L. Unable to administer PRN due to blood pressure 119/41. Will check if patient has PRN breathing treatment.
--- NOTE | 2021-08-06 05:30 | PC.NURSE ---
RT notified of patient's change in oxygen and will be up to do PRN breathing treatment.
[2021-08-06] MEDS: ipratropium-albuterol 3 mL Neb INHALATION ×4 (05:37→20:17)
[2021-08-06 06:42] LABS: Glucose Point of Care 106 mg/dL (70-110)
[2021-08-06 07:00] LABS: INR 2.14 (0.8-1.2)
[2021-08-06 07:03] LABS: Basophils % 0.8 %; Eosinophils # 0.1 10^3/uL (0.0-0.8); Eosinophils % 1.4 %; Hematocrit 27.1 % (37.0-47.0); Lymphocytes # 1.7 10^3/uL (0.8-4.8); Lymphocytes % 47.3 %; Mean Corpuscular HGB Conc 29.5 g/dL (30.0-36.0); Mean Corpuscular Hemoglobin 29.5 pg (28.0-34.0); Mean Platelet Volume 12.7 fL (7.4-10.4); Monocytes # 0.4 10^3/uL (0.2-0.9); Neutrophils # 1.38 10^3/uL (1.8-7.7); Neutrophils % 37.9 %; Nucleated Red Blood Cells % 0 %; Platelet Count 169 10^3/cmm (130-400); Red Blood Count 2.71 10^6/uL (4.1-5.3); Red Cell Distribution Width 18.2 % (12.1-15.1); White Blood Count 3.6 10^3/uL (4.0-10.0)
[2021-08-06 07:04] LABS: Anion Gap 11.6 (5-19); Blood Urea Nitrogen 12 mg/dL (8-23); Calcium 7.3 mg/dL (8.5-10.5); Carbon Dioxide 31 mmol/L (22-29); Chloride 100 mmol/L (98-107); Glucose 85 mg/dL (65-115); Osmolality Calculated 287 mOsm/kg (285-295); Potassium 3.6 mmol/L (3.5-5.1); Sodium 139 mmol/L (136-145)
--- NOTE | 2021-08-06 07:32 | XR_ITS ---
WS: [id number] Portable AP expiration and inspiration, semi-upright chest, 08/06/2021 Clinical Data: sob, chf, covid Comparison: Portable chest, 08/03/2021. Findings: The bilateral patchy opacities remain the same. The heart remains enlarged. There may be a small left effusion. The dialysis catheter remains in the same position. No pneumothorax is seen. The re is no mediastinal shift. The aortic arch shows calcification. XR/XR chest 2V insp/exp 33603 Impression: 1. No change in bilateral pulmonary patchy opacities. 2. No change in atherosclerosis, cardiomegaly and probable small left effusion. 3. Negative for pneumothorax or mediastinal shift.
[2021-08-06 07:48] LABS: Slide Review Slide Review Perform
--- NOTE | 2021-08-06 07:51 | PM.PN ---
Subjective Subjective: Interval history: weak, sob, nusea. no muñoz , cp, diarrhea.. + edema, lethargic Medications: Reviewed: Yes Medication Review Details: Current Medications Acetaminophen (Acetaminophen 325 Mg Tablet) 650 mg PO Q6H PRN PRN Reason: MODERATE PAIN Last Admin: 08/06/21 04:49 Dose: 650 mg Documented by: Albuterol Sulfate (Albuterol 8 Gm Mdi) 2 puff INHALATION Q6H PRN PRN Reason: Shortness Of Breath Albuterol Sulfate (Albuterol 2.5 Mg/0.5 Ml Neb) 2.5 mg INHALATION Q4H.RESPIRATORY PRN PRN Reason: SHORTNESS OF BREATH Albuterol/Ipratropium (Ipratropium-Albuterol 3 Ml Neb) 3 ml INHALATION Q6H PRN PRN Reason: SHORTNESS OF BREATH Last Admin: 08/06/21 05:37 Dose: 3 ml Documented by: Atorvastatin Calcium (Atorvastatin 40 Mg Tablet) 80 mg PO BEDTIME@20 [facility] Last Admin: 08/05/21 20:07 Dose: 80 mg Documented by: Baricitinib (Baricitinib 2 Mg Tablet) 2 mg PO Q24H [facility] Stop: 08/18/21 09:16 Last Admin: 08/05/21 11:18 Dose: 2 mg Documented by: Bisacodyl (Bisacodyl 10 Mg Supp) 10 mg NC DAILY PRN PRN Reason: Constipation Calcitriol (Calcitriol 0.25 Mcg Capsule) 0.25 mcg PO DAILY@0800 [facility] Last Admin: 08/05/21 09:21 Dose: 0.25 mcg Documented by: Clopidogrel Bisulfate (Clopidogrel 75 Mg Tablet) 75 mg PO DAILY@0800 [facility] Last Admin: 08/05/21 09:21 Dose: 75 mg Documented by: Dexamethasone (Dexamethasone 10 Mg/Ml Inj) 6 mg IVP DAILY [facility] Last Admin: 08/05/21 09:23 Dose: 6 mg Documented by: Dextrose (Dextrose 50% Syringe 50 Ml) 25 ml IVP ONCE PRN; Protocol PRN Reason: hypoglycemia protocol Dextrose (Dextrose 50% Syringe 50 Ml) 50 ml IVP PRN PRN; Protocol PRN Reason: hypoglycemia protocol Diazepam (Diazepam 2 Mg Tablet) 2 mg PO BID PRN PRN Reason: Anxiety Last Admin: 08/06/21 04:49 Dose: 2 mg Documented by: Folic Acid (Folic Acid 1 Mg Tablet) 2 mg PO DAILY@08 [facility] Last Admin: 08/05/21 09:22 Dose: 2 mg Documented by: Glucagon (Glucagon 1 Mg/Ml Inj 1 Ml) 1 mg IM ONCE PRN; Protocol PRN Reason: Adult Acute Hypoglycemia Prot. Heparin Sodium (Porcine) (Heparin, Porcine 1,000 Unit/Ml Inj 10 Ml) 1,000 unit IV ONCE ONE Stop: 08/06/21 08:24 Dextrose (D5w) 500 mls @ 100 mls/hr IV ONCE PRN; Protocol PRN Reason: Adult Acute Hypoglycemia Prot Remdesivir 100 mg/ Sodium (Chloride) 100 mls @ 100 mls/hr IV Q24H [facility] Stop: 08/07/21 18:59 Last Admin: 08/05/21 18:26 Dose: 100 mls/hr Documented by: Sodium Chloride (Sodium Chloride 0.9%) 1,000 mls @ 0 mls/hr IV .Q0M PRN PRN Reason: hypotension or symptomatic Epoetin Shaquille 8,000 unit/ N/A 0.4 mls @ 0 mls/hr IVP ONCE [facility] Insulin Human Lispro (Insulin Lispro 100 Unit/1 Ml) 0 unit SUBCUT TIDWM [facility]; Protocol Last Admin: 08/05/21 18:26 Dose: 4 unit Documented by: Levofloxacin (Levofloxacin 750 Mg Tablet) 750 mg PO DAILY [facility]; Protocol Last Admin: 08/05/21 09:21 Dose: 750 mg Documented by: Levothyroxine Sodium (Levothyroxine 25 Mcg Tablet) 25 mcg PO DAILY@06 [facility] Last Admin: 08/06/21 04:49 Dose: 25 mcg Documented by: Levothyroxine Sodium (Levothyroxine 200 Mcg Tablet) 200 mcg PO DAILY@06 [facility] Last Admin: 08/06/21 04:49 Dose: 200 mcg Documented by: Magnesium Hydroxide (Magnesium Hydroxide 30 Ml Udc) 5 ml PO QID PRN PRN Reason: Constipation Metoprolol Tartrate (Metoprolol Tartrate 25 Mg Tablet) 25 mg PO BID@08,20 [facility] Last Admin: 08/05/21 20:07 Dose: 25 mg Documented by: Ondansetron HCl (Ondansetron 2 Mg/Ml Sdv 2 Ml) 4 mg IVP Q6H PRN PRN Reason: NAUSEA AND VOMITING Last Admin: 08/05/21 18:31 Dose: 4 mg Documented by: Pantoprazole Sodium (Pantoprazole Dr 40 Mg Tablet) 40 mg PO DAILY@08 [facility] Last Admin: 08/05/21 09:21 Dose: 40 mg Documented by: Phenytoin (Phenytoin Er 100 Mg Capsule) 200 mg PO BID@08,20 [facility] Last Admin: 08/05/21 20:07 Dose: 200 mg Documented by: Polyethylene Glycol (Polyethylene Glycol 3350 Pkt 17 Gm) 17 gm PO DAILY PRN PRN Reason: Constipation Senna/Docusate Sodium (Sennosides-Docusate Tablet) 2 tab PO BID PRN PRN Reason: Constipation Vitamin D (Cholecalciferol (Vitamin D3) 1,000 Unit Tablet) 1,000 unit PO DAILY@08 [facility] Last Admin: 08/05/21 09:22 Dose: 1,000 unit Documented by: Warfarin Sodium (Warfarin 1 Mg Tablet) 1.5 mg PO DAILY@14 [facility] Last Admin: 08/05/21 14:29 Dose: 1.5 mg Documented by: Vitals/I&O/Wt Last Vital Signs Temp 97.4 F L 08/06/21 04:00 Pulse 83 08/06/21 05:35 Resp 18 08/06/21 05:35 BP 119/41 08/06/21 05:07 Pulse Ox 98 08/06/21 05:35 08/05/21 08/06/21 08/06/21 22:59 06:59 14:59 Intake Total 250 / 250 Output Total 0 / 0 Balance 250 / 250 Weight last 48 hrs Weight 140.4 kg Physical Exam Narrative: EXAM NARRATIVE: sob on nc 02 vs noted heent- nc/at, eomi, anicteric neck supple lungs wheezing and crackles b/l heart reg, +ALEX abd soft, nt, nd, + bs ext ++ b/l edema neuro- a,a, o x 2+ Data : 08/06/21 05:30 08/06/21 05:30 Micro: Microbiology 08/03/21 19:18 Blood Culture - Preliminary Blood Coagulase negativ staphylococc A&P Additional A&P Information Seen via telehealth with assistance of RN at bedside 1. ESRD - repeat HD today- remove fluids as tolerated -repeat cxr after HD 2. COVID, receiving barcitinib, remdesivir and decadron, antibiotics for possible bacterial pneumonia 3. Anemia, iron repelete, will give epogen at dialysis. 4. resp acidosis- consider bipap 5. Diabetes 6. Hypophosphatemia, not receiving phosphate binder seen and examined w/ RN- telehealth visit time spent 30 minutes Attestations Medical Necessity Statement*: ESRD, COVID, anemia Time Spent in Patient Care: 16 - 35 minutes Coding Level of Care Code Acute Sustainability Consultant for Sosa Bates
[2021-08-06 08:54] LABS: Thyroid Stimulating Hormone 1.67 uIU/mL (0.27-4.20)
[2021-08-06] MEDS: albumin 12.5 GM/50 ML VIAL IV (09:52)
[2021-08-06] MEDS: pantoprazole DR 40 mg Tablet PO (09:53)
[2021-08-06] MEDS: cholecalciferol (vitamin D3) 1,000 unit Tablet 1000 UNIT PO (09:53)
[2021-08-06] MEDS: heparin, porcine 1,000 unit/mL INJ 10 mL 1000 UNIT IV (09:53)
[2021-08-06] MEDS: levoFLOXacin 750 mg Tablet PO (09:54)
[2021-08-06] MEDS: clopidogrel 75 mg Tablet PO (09:54)
[2021-08-06] MEDS: dexamethasone 10 mg/mL INJ 6 MG IVP (09:54)
[2021-08-06] MEDS: folic acid 1 mg Tablet 2 MG PO (09:56)
[2021-08-06] MEDS: midodrine 5 mg TABLET PO ×2 (09:56→15:22)
[2021-08-06] MEDS: calcitriol 0.25 mcg Capsule PO (09:57)
[2021-08-06] MEDS: heparin, porcine 1,000 unit/mL INJ 10 mL HE (09:58)
--- NOTE | 2021-08-06 12:15 | PM.PN ---
Subjective Subjective: Interval history: This morning patient was in dialysis She was complaining of back pain He was put on BiPAP Blood pressure systolic in 130s Vitals/I&O/Wt Last Vital Signs Temp 97.4 F L 08/06/21 04:00 Pulse 85 08/06/21 12:02 Resp 20 H 08/06/21 08:15 BP 119/41 08/06/21 05:07 Pulse Ox 95 08/06/21 12:02 08/05/21 08/06/21 08/06/21 22:59 06:59 14:59 Intake Total 100 / 100 250 / 350 170 / 170 Output Total 0 / 0 Balance 100 / 100 250 / 350 170 / 170 Weight last 48 hrs Weight 140.4 kg Physical Exam Narrative: EXAM NARRATIVE: Morbidly obese female Currently getting dialyzed On BiPAP Systolic blood pressure 130s Awake and alert Complaining of back pain Hard to assess his volume status No abdominal pain Assisted bilateral breath sounds Variable S1-S2 Data : 08/06/21 05:30 08/06/21 05:30 Micro: Microbiology 08/03/21 19:18 Blood Culture - Preliminary Blood Coagulase negativ staphylococc A&P Assessment and plan (1) Anemia, chronic disease: Status: Acute (2) End stage renal disease: Status: Acute (3) COVID-19: Status: Acute (4) Acute on chronic respiratory failure with hypoxia and hypercapnia: Status: Acute (5) Warfarin-induced coagulopathy: Status: Acute (6) Hypoxemia: Status: Acute (7) Venous stasis: Status: Chronic Additional A&P Information COVID-19 related hypoxia currently on BiPAP during dialysis session When off BiPAP requires 3 L Continue baricitinib Remdesivir and Decadron Sacral ulcer, complaining of back pain, We will give morphine 1 dose only Chronic hypertension: During dialysis blood pressure 130mmhg If needed albumin can be used End-stage renal disease Friday Goal INR between 1.5-2 DNR/DNI Renal dialysis diet Attestations Medical Necessity Statement*: Continue medical management, currently on BiPAP, will need more monitoring of the hospital Time Spent in Patient Care: less than 15 minutes Coding Level of Care Code Acute Pre Kindergarten Teacher for g Fwd Diagnoses Anemia, chronic disease D63.8 End stage renal disease N18.6 COVID-19 U07.1 Acute on chronic respiratory failure with hypoxia and hypercapnia J96.21; J96.22 Warfarin-induced coagulopathy D68.32; T45.515A Hypoxemia R09.02 Venous stasis I87.8
[2021-08-06 12:30] LABS: Glucose Point of Care 121 mg/dL (70-110)
[2021-08-06] MEDS: phenytoin ER 100 mg Capsule 200 MG PO (13:40)
[2021-08-06] MEDS: warfarin 1 mg Tablet 1.5 MG PO (13:41)
[2021-08-06] MEDS: morphine IR 15 mg Tablet PO (13:41)
--- NOTE | 2021-08-06 14:29 | PC.SOCIAL ---
IMM Update pg 2 of IMM updated and reviewed w/ patient. Copy provided and copy placed in chart.
[2021-08-06 14:46] LABS: Calcium 8.1 mg/dL (8.5-10.5)
[2021-08-06 14:53] LABS: Parathyroid Hormone 91.1 pg/mL (15-65)
[2021-08-06 18:29] LABS: Glucose Point of Care 149 mg/dL (70-110)
[2021-08-06] MEDS: insulin lispro 100 unit/1 mL SUBCUT (18:32)
[2021-08-06] MEDS: remdesivir 100 MG in sodium chloride 0.9% (100 ml) 100 ML IV (18:35)
--- NOTE | 2021-08-06 20:34 | PC.NURSE ---
Shift report received from Elizabeth QUINN. Patient awake in bed. Patient will look at you when spoken to but will not respond or answer orientation questions. Patient is groaning/moaning and per report has been doing this most of the day. Unable to administer scheduled medications at this time.
[2021-08-06 21:33] LABS: Glucose Point of Care 100 mg/dL (70-110)
[2021-08-07] VITALS (9 sets, daily range): BP systolic 98–129; BP diastolic 46–79; PULSE 72–104; RESP 16–28; TEMP 36.3–36.9; O2SAT 90–99
--- NOTE | 2021-08-07 00:26 | PC.NURSE ---
Patient on BiPap at this time. Patient will look at you when spoken to but does not answer orientation or other questions. No s/s of pain or discomfort. No needs noted at this time.
--- NOTE | 2021-08-07 02:50 | PC.NURSE ---
Patient resting quietly / 3L NC. No s/s of pain or discomfort at this time. No needs noted.
--- NOTE | 2021-08-07 06:06 | P.PN_ITS ---
Subjective Subjective: Interval history: Afebrile On 3 L nasal cannula Did well with hemodialysis, BiPAP discontinued Vitals/I&O/Wt Last Vital Signs Temp 98.3 F 08/07/21 00:00 Pulse 87 08/07/21 04:00 Resp 16 08/07/21 04:00 BP 98/46 08/07/21 04:00 Pulse Ox 96 08/07/21 04:00 08/06/21 08/06/21 08/07/21 14:59 22:59 06:59 Intake Total 290 / 290 200 / 490 Balance 290 / 290 200 / 490 Physical Exam Narrative: EXAM NARRATIVE: Depression elderly female Doing well on 3 L nasal cannula Abdominal pannus without sign of cellulitis, right groin wound, purulence improving Venous stasis dermatitis EOMI, PERRLA Nonfocal neuro exam Abdomen is soft No signs of guarding rigidity or peritonitis S1, S2 variable Sacral ulcer Data : 08/08/21 05:45 08/08/21 05:45 A&P Assessment and plan (1) Anemia, chronic disease: Status: Acute (2) End stage renal disease: Status: Acute (3) COVID-19: Status: Acute (4) Acute on chronic respiratory failure with hypoxia and hypercapnia: Status: Acute (5) Warfarin-induced coagulopathy: Status: Acute (6) Diabetes: Status: Acute Qualifiers: Chronic kidney disease stage: stage 3 (moderate) Chronic kidney disease stage 3 subtype: stage 3b (GFR 30-44) Diabetes mellitus complication detail: with chronic kidney disease Diabetes mellitus complication status: with kidney complications Diabetes mellitus care home insulin use: with care home use Diabetes mellitus type: type 2 Qualified Code(s): E11.22 - Type 2 diabetes mellitus with diabetic chronic kidney disease; N18.32 - Chronic kidney disease, stage 3b; Z79.4 - half-way (current) use of insulin (7) Venous stasis: Status: Chronic Plan ACute on chronic hypoxic hypercarbia: Improving COVID-19 related hypoxia currently doing well on 3 L nasal cannula Continue remdesivir baricitinib and Decadron End-stage renal disease status post dialysis yesterday Chronic hypertension: Blood pressure is stable, DNR/DNI INR goal 1.5-2, renal dialysis diet Anemia of chronic disease: Stable Sacral ulcer currently on opioids, Will reevaluate with the help of nurse Attestations Medical Necessity Statement*: Continue medical management, plan to discharge her back to long term in next 48 hours Time Spent in Patient Care: 15mins Coding Level of Care Code Established Pt Acute Direct Selling Counselor for Sosa Bates Patient Type Established Medical Decision Making Low Complexity Diagnoses Anemia, chronic disease D63.8 End stage renal disease N18.6 COVID-19 U07.1 Acute on chronic respiratory failure with hypoxia and hypercapnia J96.21; J9 6.22 Warfarin-induced coagulopathy D68.32; T45.515A Diabetes E11.22; N18.32; Z79.4 Chronic kidney disease stage: stage 3 (moderate) Chronic kidney disease stage 3 subtype: stage 3b (GFR 30-44) Diabetes mellitus complication detail: with chronic kidney disease Diabetes mellitus complication status: with kidney complications Diabetes mellitus rat exterminator insulin use: with care home use Diabetes mellitus type: type 2 Venous stasis I87.8 Time Spent (min) 15
[2021-08-07 06:13] LABS: Basophils % 0.5 %; Eosinophils # 0.1 10^3/uL (0.0-0.8); Eosinophils % 1.3 %; Hematocrit 26.6 % (37.0-47.0); Hemoglobin 7.9 g/dL (11.5-15.3); Lymphocytes % 53.4 %; Mean Corpuscular HGB Conc 29.7 g/dL (30.0-36.0); Mean Corpuscular Hemoglobin 29.5 pg (28.0-34.0); Mean Corpuscular Volume 99.3 fl (81-99); Mean Platelet Volume 12.2 fL (7.4-10.4); Monocytes # 0.4 10^3/uL (0.2-0.9); Monocytes % 11.3 %; Neutrophils # 1.23 10^3/uL (1.8-7.7); Neutrophils % 32.2 %; Nucleated Red Blood Cells % 0 %; Platelet Count 167 10^3/cmm (130-400); Red Blood Count 2.68 10^6/uL (4.1-5.3); Red Cell Distribution Width 18.3 % (12.1-15.1); White Blood Count 3.8 10^3/uL (4.0-10.0)
[2021-08-07 06:32] LABS: Anion Gap 16.6 (5-19); Blood Urea Nitrogen 15 mg/dL (8-23); Calcium 8.1 mg/dL (8.5-10.5); Carbon Dioxide 25 mmol/L (22-29); Chloride 101 mmol/L (98-107); Glucose 55 mg/dL (65-115); Osmolality Calculated 286 mOsm/kg (285-295); Potassium 3.6 mmol/L (3.5-5.1); Sodium 139 mmol/L (136-145)
[2021-08-07 06:38] LABS: Glucose Point of Care 85 mg/dL (70-110)
[2021-08-07 07:56] LABS: Slide Review Slide Review Perform
[2021-08-07] MEDS: ipratropium-albuterol 3 mL Neb INHALATION (09:28)
[2021-08-07 09:39] LABS: ABG PCO2 55.8 mmHg (35-45); ABG PH Result 7.37 (7.35-7.45); Alveolar-Arterial Oxygen Gradi 11.4 mmHg (5-10); Arterial Blood Gas Hematocrit 25.2 % (37-47); Base Excess ABG 5.9 mmol/L (-2.0-2.0); Blood Gas Operator Identificat ED; Blood Gas Sample Site Brachial, left; Blood Gas Sample Type Arterial; Carboxyhemoglobin 1.6 %THgb (0.4-20.1); HCO3 ABG 32.1 mmol/L (22-26); HGB O2 Sat 93.9 % (95-100); Ionized Calcium Level - ABG 1.1 mmol/L (1.1-1.4); Methemoglobin 0.8 % (0.4-1.5); Oxygen Device NC; Oxygen Saturation ABG 96.2; PO2 ABG 74.4 mmHg (80.0-100.0); Potassium Level - ABG 3.4 mmol/L (3.5-5.0); Total Hemoglobin 8.2 g/dL (12-16)
--- NOTE | 2021-08-07 10:02 | P.PN_ITS ---
Subjective Subjective: Interval history: confused, not answering questions or following commands Medications: Reviewed: Yes Medication Review Details: Current Medications Acetaminophen (Acetaminophen 325 Mg Tablet) 650 mg PO Q6H PRN PRN Reason: MODERATE PAIN Last Admin: 08/06/21 04:49 Dose: 650 mg Documented by: Albuterol Sulfate (Albuterol 8 Gm Mdi) 2 puff INHALATION Q6H PRN PRN Reason: Shortness Of Breath Albuterol Sulfate (Albuterol 2.5 Mg/0.5 Ml Neb) 2.5 mg INHALATION Q4H .RESPIRATORY PRN PRN Reason: SHORTNESS OF BREATH Albuterol/Ipratropium (Ipratropium-Albuterol 3 Ml Neb) 3 ml INHALATION Q6H PRN PRN Reason: SHORTNESS OF BREATH Last Admin: 08/07/21 09:28 Dose: 3 ml Documented by: Atorvastatin Calcium (Atorvastatin 40 Mg Tablet) 80 mg PO BEDTIME@20 [facility] Last Admin: 08/07/21 00:25 Dose: Not Given Documented by: Baricitinib (Baricitinib 2 Mg Tablet) 2 mg PO Q24H [facility] Stop: 08/18/21 09:16 Last Admin: 08/06/21 09:58 Dose: 2 mg Documented by: Bisacodyl (Bisacodyl 10 Mg Supp) 10 mg MS DAILY PRN PRN Reason: Constipation Calcitriol (Calcitriol 0.25 Mcg Capsule) 0.25 mcg PO DAILY@0800 [facility] Last Admin: 08/06/21 09:57 Dose: 0.25 mcg Documented by: Clopidogrel Bisulfate (Clopidogrel 75 Mg Tablet) 75 mg PO DAILY@0800 [facility] Last Admin: 08/06/21 09:54 Dose: 75 mg Documented by: Dexamethasone (Dexamethasone 10 Mg/Ml Inj) 6 mg IVP DAILY [facility] Last Admin: 08/06/21 09:54 Dose: 6 mg Documented by: Dextrose (Dextrose 50% Syringe 50 Ml) 25 ml IVP ONCE PRN; Protocol PRN Reason: hypoglycemia protocol Dextrose (Dextrose 50% Syringe 50 Ml) 50 ml IVP PRN PRN; Protocol PRN Reason: hypoglycemia protocol Diazepam (Diazepam 2 Mg Tablet) 2 mg PO BID PRN PRN Reason: Anxiety Last Admin: 08/06/21 04:49 Dose: 2 mg Documented by: Folic Acid (Folic Acid 1 Mg Tablet) 2 mg PO DAILY@08 [facility] Last Admin: 08/06/21 09:56 Dose: 2 mg Documented by: Glucagon (Glucagon 1 Mg/Ml Inj 1 Ml) 1 mg IM ONCE PRN; Protocol PRN Reason: Adult Acute Hypoglycemia Prot. Dextrose (D5w) 500 mls @ 100 mls/hr IV ONCE PRN; Protocol PRN Reason: Adult Acute Hypoglycemia Prot Remdesivir 100 mg/ Sodium (Chloride) 100 mls @ 100 mls/hr IV Q24H [facility] Stop: 08/07/21 18:59 Last Infusion: 08/06/21 20:30 Dose: Infused Documented by: Sodium Chloride (Sodium Chloride 0.9%) 1,000 mls @ 0 mls/hr IV .Q0M PRN PRN Reason: hypotension or symptomatic Epoetin Shaquille 8,000 unit/ N/A 0.4 mls @ 0 mls/hr IVP ONCE [facility] Insulin Human Lispro (Insulin Lispro 100 Unit/1 Ml) 0 unit SUBCUT TIDWM [facility]; Protocol Last Admin: 08/06/21 18:32 Dose: 4 unit Documented by: Levofloxacin (Levofloxacin 750 Mg Tablet) 750 mg PO Q48H [facility]; Protocol Levothyroxine Sodium (Levothyroxine 25 Mcg Tablet) 25 mcg PO DAILY@06 [facility] Last Admin: 08/07/21 07:10 Dose: Not Given Documented by: Levothyroxine Sodium (Levothyroxine 200 Mcg Tablet) 200 mcg PO DAILY@06 [facility] Last Admin: 08/07/21 07:11 Dose: Not Given Documented by: Magnesium Hydroxide (Magnesium Hydroxide 30 Ml Udc) 5 ml PO QID PRN PRN Reason: Constipation Midodrine (Midodrine 5 Mg Tablet) 5 mg PO TID [facility] Last Admin: 08/07/21 00:26 Dose: Not Given Documented by: Ondansetron HCl (Ondansetron 2 Mg/Ml Sdv 2 Ml) 4 mg IVP Q6H PRN PRN Reason: NAUSEA AND VOMITING Last Admin: 08/05/21 18:31 Dose: 4 mg Documented by: Pantoprazole Sodium (Pantoprazole Dr 40 Mg Tablet) 40 mg PO DAILY@08 [facility] Last Admin: 08/06/21 09:53 Dose: 40 mg Documented by: Phenytoin (Phenytoin Er 100 Mg Capsule) 200 mg PO BID@ [facility] Last Admin: 08/07/21 00:25 Dose: Not Given Documented by: Polyethylene Glycol (Polyethylene Glycol 3350 Pkt 17 Gm) 17 gm PO DAILY PRN PRN Reason: Constipation Senna/Docusate Sodium (Sennosides-Docusate Tablet) 2 tab PO BID PRN PRN Reason: Constipation Vitamin D (Cholecalciferol (Vitamin D3) 1,000 Unit Tablet) 1,000 unit PO DAILY@08 [facility] Last Admin: 08/06/21 09:53 Dose: 1,000 unit Documented by: Warfarin Sodium (Warfarin 1 Mg Tablet) 1.5 mg PO DAILY@14 [facility] Last Admin: 08/06/21 13:41 Dose: 1.5 mg Documented by: Vitals/I&O/Wt Last Vital Signs Temp 98.5 F 08/07/21 07:55 Pulse 83 08/07/21 09:29 Resp 17 08/07/21 09:29 BP 110/69 08/07/21 07:55 Pulse Ox 99 08/07/21 09:29 08/06/21 08/07/21 08/07/21 22:59 06:59 14:59 Intake Total 200 / 490 Balance 200 / 490 Physical Exam Narrative: EXAM NARRATIVE: comfortable, disoriented in bed, not using her nc 02 vs noted heent- nc/at, eomi, anicteric neck supple lungs improved air movement b/l heart reg, +ALEX abd soft, nt, nd, + bs ext dec b/l edema neuro- confused, lethargic, not following commands or answering the questions Data : 08/07/21 04:45 08/07/21 04:45 A&P Assessment and plan (1) End stage renal disease: Seen via telehealth with assistance of RN at bedside 1. ESRD - s/p HD yesterday- remove fluids as tolerated -repeat cxr after HD 2. COVID, receiving barcitinib, remdesivir and decadron, antibiotics for possible bacterial pneumonia 3. Anemia, iron repelete, will give epogen at dialysis. 4. resp acidosis- consider bipap 5. Diabetes 6. Hypophosphatemia, not receiving phosphate binder 7. ams - per medicine. pco2 of 56- consider bipap seen and examined w/ RN- telehealth visit time spent 30 minutes Status: Acute Plan see above hd in am Attestations Medical Necessity Statement*: ams, esrd, covid 19 Time Spent in Patient Care: 16 - 35 minutes (>than 50% of time spent in counselling and/or direct pt care on unit) . Coding Level of Care Code Acute Regional Geodetic Advisor for Sosa Bates Diagnoses End stage renal disease N18.6
[2021-08-07 10:10] LABS: Ammonia 30 umol/L (11-51)
--- NOTE | 2021-08-07 11:43 | PC.NURSE ---
Patient's blood sugar is 73. Patient is alert enough to drink Apple juice given and drank. Neophre supplement drink given to continue to drink on. Will check sugar again in 30 minutes.
[2021-08-07 12:04] LABS: Glucose Point of Care 73 mg/dL (70-110)
[2021-08-07 12:50] LABS: Glucose Point of Care 95 mg/dL (70-110)
[2021-08-07] MEDS: midodrine 5 mg TABLET PO ×2 (12:53→21:11)
[2021-08-07] MEDS: dexamethasone 10 mg/mL INJ 6 MG IVP (12:58)
[2021-08-07] MEDS: phenytoin ER 100 mg Capsule 200 MG PO ×2 (12:59→21:10)
[2021-08-07 16:56] LABS: Glucose Point of Care 125 mg/dL (70-110)
[2021-08-07] MEDS: remdesivir 100 MG in sodium chloride 0.9% (100 ml) 100 ML IV (17:18)
[2021-08-07] MEDS: atorvastatin 40 mg Tablet 80 MG PO (21:11)
--- NOTE | 2021-08-07 22:46 | PC.NURSE ---
Patient took her nightime medications in applesauce. Would not answer questions and just made a moaning sound. Ask patient if she needed anything and she shook her head no. Will continue to monitor.
[2021-08-08] VITALS (7 sets, daily range): BP systolic 105–126; BP diastolic 63–89; PULSE 64–106; RESP 17–27; TEMP 35.6–37.1; O2SAT 90–96
--- NOTE | 2021-08-08 05:52 | PC.NURSE ---
Patient would not allow us to clean her mouth with a swab. She also would not allow us to give any type of medication. Patient moaning and does not speak. Blood found coming from vaginal area. Charge nurse notified Dr. Ramos. Orders to hold coumadin. Will continue to monitor.
[2021-08-08 06:49] LABS: Alanine Aminotransferase 11 U/L (0-33); Albumin Level 2.8 g/dL (3.5-5.2); Alkaline Phosphatase 275 IU/L (35-105); Blood Urea Nitrogen 19 mg/dL (8-23); Calcium 7.7 mg/dL (8.5-10.5); Carbon Dioxide 25 mmol/L (22-29); Chloride 99 mmol/L (98-107); Globulin 3.1 g/dL (1.3-4.6); Glucose 101 mg/dL (65-115); Magnesium 1.9 mg/dL (1.7-2.3); Osmolality Calculated 286 mOsm/kg (285-295); Phosphorus 2.5 mg/dL (2.5-4.5); Sodium 137 mmol/L (136-145); Total Bilirubin 0.4 mg/dL (0.15-1.2); Total Protein 5.9 g/dL (6.6-8.7)
[2021-08-08 07:00] LABS: Anion Gap 17.3 (5-19); Aspartate Amino Transferase 53 U/L (0-32); Potassium 4.3 mmol/L (3.5-5.1)
--- NOTE | 2021-08-08 07:00 | PC.NURSE ---
Patient is in dialysis with the dialysis nurse. Patient is trashing her hands and not keeping still and almost pulled out her dialysis catheter so the order for soft restraints was placed by Dr. Berkowitz.
[2021-08-08 07:07] LABS: Basophils % 0.7 %; Eosinophils % 0.7 %; Hematocrit 30.1 % (37.0-47.0); Lymphocytes # 1.9 10^3/uL (0.8-4.8); Lymphocytes % 45.8 %; Mean Corpuscular HGB Conc 29.9 g/dL (30.0-36.0); Mean Corpuscular Hemoglobin 29.8 pg (28.0-34.0); Mean Corpuscular Volume 99.7 fl (81-99); Mean Platelet Volume 12.4 fL (7.4-10.4); Monocytes # 0.4 10^3/uL (0.2-0.9); Monocytes % 10.6 %; Neutrophils # 1.65 10^3/uL (1.8-7.7); Nucleated Red Blood Cells % 0 %; Platelet Count 170 10^3/cmm (130-400); Red Blood Count 3.02 10^6/uL (4.1-5.3); Red Cell Distribution Width 18.7 % (12.1-15.1)
--- NOTE | 2021-08-08 07:31 | PC.NURSE ---
Report received from [facility] at this time.
[2021-08-08 07:41] LABS: Glucose Point of Care 103 mg/dL (70-110)
[2021-08-08 07:41] LABS: Glucose Point of Care 132 mg/dL (70-110)
[2021-08-08] MEDS: heparin, porcine 1,000 unit/mL INJ 10 mL HE (07:59)
--- NOTE | 2021-08-08 09:42 | P.PN_ITS ---
Subjective Subjective: Interval history: moaning on dialysis Medications: Reviewed: Yes Medication Review Details: Current Medications Acetaminophen (Acetaminophen 325 Mg Tablet) 650 mg PO Q6H PRN PRN Reason: MODERATE PAIN Last Admin: 08/06/21 04:49 Dose: 650 mg Documented by: Albuterol Sulfate (Albuterol 8 Gm Mdi) 2 puff INHALATION Q6H PRN PRN Reason: Shortness Of Breath Albuterol Sulfate (Albuterol 2.5 Mg/0.5 Ml Neb) 2.5 mg INHALATION Q4H.RESPIRATORY PRN PRN Reason: SHORTNESS OF BREATH Albuterol/Ipratropium (Ipratropium-Albuterol 3 Ml Neb) 3 ml INHALATION Q6H PRN PRN Reason: SHORTNESS OF BREATH Last Admin: 08/07/21 09:28 Dose: 3 ml Documented by: Atorvastatin Calcium (Atorvastatin 40 Mg Tablet) 80 mg PO BEDTIME@20 [facility] Last Admin: 08/07/21 21:11 Dose: 80 mg Documented by: Baricitinib (Baricitinib 2 Mg Tablet) 2 mg PO Q24H [facility] Stop: 08/18/21 09:16 Last Admin: 08/07/21 12:52 Dose: 2 mg Documented by: Bisacodyl (Bisacodyl 10 Mg Supp) 10 mg [place] DAILY PRN PRN Reason: Constipation Clopidogrel Bisulfate (Clopidogrel 75 Mg Tablet) 75 mg PO DAILY@0800 [facility] Last Admin: 08/07/21 09:00 Dose: Not Given Documented by: Dexamethasone (Dexamethasone 10 Mg/Ml Inj) 6 mg IVP DAILY [facility] Last Admin: 08/07/21 12:58 Dose: 6 mg Documented by: Dextrose (Dextrose 50% Syringe 50 Ml) 25 ml IVP ONCE PRN; Protocol PRN Reason: hypoglycemia protocol Dextrose (Dextrose 50% Syringe 50 Ml) 50 ml IVP PRN PRN; Protocol PRN Reason: hypoglycemia protocol Folic Acid (Folic Acid 1 Mg Tablet) 2 mg PO DAILY@08 [facility] Last Admin: 08/07/21 09:00 Dose: Not Given Documented by: Glucagon (Glucagon 1 Mg/Ml Inj 1 Ml) 1 mg IM ONCE PRN; Protocol PRN Reason: Adult Acute Hypoglycemia Prot. Dextrose (D5w) 500 mls @ 100 mls/hr IV ONCE PRN; Protocol PRN Reason: Adult Acute Hypoglycemia Prot Epoetin Shaquille 8,000 unit/ N/A 0.4 mls @ 0 mls/hr IVP ONCE [facility] Albumin Human (Albumin) 12.5 gm in 50 mls @ 60 mls/hr IV PRN PRN PRN Reason: Hypotension and/or symptomatic Insulin Human Lispro (Insulin Lispro 100 Unit/1 Ml) 0 unit SUBCUT TIDWM [facility]; Protocol Last Admin: 08/07/21 17:18 Dose: Not Given Documented by: Levofloxacin (Levofloxacin 750 Mg Tablet) 750 mg PO Q48H [facility]; Protocol Levothyroxine Sodium (Levothyroxine 25 Mcg Tablet) 25 mcg PO DAILY@06 [facility] Last Admin: 08/08/21 05:52 Dose: Not Given Documented by: Levothyroxine Sodium (Levothyroxine 200 Mcg Tablet) 200 mcg PO DAILY@06 [facility] Last Admin: 08/08/21 05:52 Dose: Not Given Documented by: Magnesium Hydroxide (Magnesium Hydroxide 30 Ml Udc) 5 ml PO QID PRN PRN Reason: Constipation Midodrine (Midodrine 5 Mg Tablet) 5 mg PO TID [facility] Last Admin: 08/07/21 21:11 Dose: 5 mg Documented by: Ondansetron HCl (Ondansetron 2 Mg/Ml Sdv 2 Ml) 4 mg IVP Q6H PRN PRN Reason: NAUSEA AND VOMITING Last Admin: 08/05/21 18:31 Dose: 4 mg Documented by: Pantoprazole Sodium (Pantoprazole Dr 40 Mg Tablet) 40 mg PO DAILY@08 [facility] Last Admin: 08/07/21 09:00 Dose: Not Given Documented by: Phenytoin (Phenytoin Er 100 Mg Capsule) 200 mg PO BID@08,20 [facility] Last Admin: 08/07/21 21:10 Dose: 200 mg Documented by: Polyethylene Glycol (Polyethylene Glycol 3350 Pkt 17 Gm) 17 gm PO DAILY PRN PRN Reason: Constipation Senna/Docusate Sodium (Sennosides-Docusate Tablet) 2 tab PO BID PRN PRN Reason: Constipation Vitamin D (Cholecalciferol (Vitamin D3) 1,000 Unit Tablet) 1,000 unit PO DAILY@08 [facility] Last Admin: 08/07/21 09:15 Dose: Not Given Documented by: Warfarin Sodium (Warfarin 1 Mg Tablet) 1.5 mg PO DAILY@14 [facility] Last Admin: 08/07/21 17:17 Dose: Not Given Documented by: Vitals/I&O/Wt Last Vital Signs Temp 98.2 F 08/08/21 04:00 Pulse 76 08/08/21 04:00 Resp 19 H 08/08/21 04:00 BP 126/76 08/08/21 04:00 Pulse Ox 94 08/08/21 04:00 08/07/21 08/08/21 08/08/21 22:59 06:59 14:59 Intake Total 240 / 480 Output Total 0 / 0 0 / 0 Balance 240 / 480 0 / 480 Physical Exam Narrative: EXAM NARRATIVE: moaning, not verbal in bed on HD, not using her nc 02 vs noted heent- nc/at, eomi, anicteric neck supple lungs crckles b/l heart reg, +ALEX abd soft, nt, nd, + bs ext 1+ b/l edema neuro- moaning, not following commands or answering the questions Data : 08/08/21 05:45 08/08/21 05:45 A&P Assessment and plan (1) End stage renal disease: Seen via telehealth with assistance of RN at bedside 1. ESRD - seen on HD- 3 hrs, 3k, remove 2l as tolerated 2. COVID, receiving barcitinib, remdesivir and decadron, antibiotics for possible bacterial pneumonia 3. Anemia, iron repelete, will give epogen at dialysis. 4. resp acidosis- consider bipap 5. Diabetes 6. Hypophosphatemia, not receiving phosphate binder 7. ams - per medicine. seen and examined w/ RN- telehealth visit time spent 25 minutes Status: Acute Plan see above hd mwf Attestations Medical Necessity Statement*: covid, esrd, ams Coding Level of Care Code Acute Director Of Elementary Education for g Fwd Diagnoses End stage renal disease N18.6
--- NOTE | 2021-08-08 10:37 | PC.SOCIAL ---
IMM Update Pg. 2 of IMM updated. Attempted to reach patient's family to educate, voicemail left requesting call back.
--- NOTE | 2021-08-08 10:52 | CT_ITS ---
WS: [id number] CT HEAD NONCONTRAST HISTORY: Confused. TECHNIQUE: Contiguous axial imaging performed through the brain in 2.5 mm imaging. Bone and soft tiss ue windows. Sagittal and coronal reformats reviewed. All CT scans at [facility] use at least one of these dose optimization techniques: automated exposure control; mA and/or kV adjustment per pa tient size (includes targeted exams where dose is matched to clinical indication); or iterative recon struction. DLP: 1690.58 mGy.cm COMPARISON: 07/05/2021 No acute intracranial hemorrhage, midline shift or mass effect. Mild diffuse atrophy and chronic ischemic disease. Significant artifact through the skull base obscu ring detail in the posterior fossa. Ventricles: Normal size with no hydrocephalus. Paranasal sinuses: As visualized are clear. Mastoid air cells: Well pneumatized. Calvarium and scalp: Skull is intact with no soft tissue edema or swelling. CT/CT head wo con* [id number] IMPRESSION: 1. No acute intracranial hemorrhage or edema. 2. Mild cerebral atrophy and chronic ischemic disease.
[2021-08-08] MEDS: cefTRIAXone 1,000 MG in sodium chloride 0.9% (plus) 50 ML 100 MG IV (12:03)
--- NOTE | 2021-08-08 12:14 | PC.NURSE ---
Patient to CT at this time.
[2021-08-08 12:27] LABS: Glucose Point of Care 75 mg/dL (70-110)
--- NOTE | 2021-08-08 12:31 | PC.HD ---
When changing HD catheter dressing, the area was noted to be covered in a fairly large amount of dried blood. This was scrubved well with chloroprep and then dressed. during treatment a small amount of blood was noted on the dressing. This RN removed the dressing and some small amount of oozing was noted. Area was cleaned again and a new dressing was affixed. At conclusion of treatment, a very small amount of strikethrough was noted..
--- NOTE | 2021-08-08 12:48 | PM.PN ---
Subjective Subjective: Interval history: This morning patient is still confused, she is moving all of her extremities, nonfocal neuro exam I requested ABG, CT scan of head without contrast, switch antibiotics to ceftriaxone requested nurse to see if we can get a UA She is saturating 93% on room air She pulled her IV this morning Vitals/I&O/Wt Last Vital Signs Temp 96.4 F L 08/08/21 12:36 Pulse 64 08/08/21 12:36 Resp 18 08/08/21 12:36 BP 126/69 08/08/21 12:36 Pulse Ox 92 08/08/21 11:24 08/07/21 08/08/21 08/08/21 22:59 06:59 14:59 Intake Total 240 / 480 300 / 300 Output Total 0 / 0 0 / 0 2300 / 2300 Balance 240 / 480 0 / 480 -2000 / -2000 Weight last 48 hrs Weight 133.3 kg Physical Exam Narrative: EXAM NARRATIVE: Patient was getting dialysis morning she was saturating 93% room air Abdomen soft Moving all of her extremities Nonfocal neuro exam However not able to follow commands She has her eyes open but would not follow command, very agitated Abdominal pannus without signs of cellulitis, right groin wound mild purulent base otherwise showing good signs of healing Nonlabored breathing no audible stridor or wheezing Data : 08/08/21 05:45 08/08/21 05:45 A&P Assessment and plan (1) Anemia, chronic disease: Status: Acute (2) End stage renal disease: Status: Acute (3) COVID-19: Status: Acute (4) Acute on chronic respiratory failure with hypoxia and hypercapnia: Status: Acute (5) Venous stasis: Status: Chronic (6) Encephalopathy due to COVID-19 virus: Status: Acute Plan Encephalopathy related to COVID-19 CT head unremarkable Saturating well on room air We will request ABG UA if possible Switch antibiotics to ceftriaxone she has not taken her antibiotics in last 40 Nonlabored breathing Moving all of her extremities, does not have any focal deficit, hyperactive delirium Afebrile, no leukocytosis Steroid-induced? End-stage renal disease dialysis session as per nephro recommendation COVID-19 related hypoxia: This morning she was saturating 93% on room air, to decrease work of breathing she requires BiPAP, Continue baricitinib remdesivir and Decadron Because of confusion she is not ready to be discharged back to correction No electrolyte imbalance Vaginal bleeding noted overnight, held Coumadin hemoglobin is back to baseline Attestations Medical Necessity Statement*: Because of confusion she cannot be discharged back to correction Coding Level of Care Code Established Pt Acute Senior Environmental Technician for Chg Fwd Patient Type Established History Expanded Problem Focused Exam Expanded Problem Focused Medical Decision Making Moderate Complexity Diagnoses Anemia, chronic disease D63.8 End stage renal disease N18.6 COVID-19 U07.1 Acute on chronic respiratory failure with hypoxia and hypercapnia J96.21; J96.22 Venous stasis I87.8 Encephalopathy due to COVID-19 virus U07.1; G93.49 Time Spent (min) 15
--- NOTE | 2021-08-08 12:55 | CTR_ITS ---
PROCEDURE INFORMATION: Exam: CT Abdomen And Pelvis Without Contrast Exam date and time: 08/08/2021 12:55 PM Age: 75 years old Clinical indication: Prior surgery; Surgery type: Gb. Coronary stent. Hernia repair. Dialysis cath. ; Patient HX: New onset of vaginal bleeding. On anticoagulants. ; Additional info: Confusion, vaginal bleed TECHNIQUE: Imaging protocol: Computed tomography of the abdomen and pelvis without contrast. Radiation optimization: All CT scans at this facility use at least one of these dose optimization techniques: automated exposure control; mA and/or kV adjustment per patient size (includes targeted exams where dose is matched to clinical indication); or iterative reconstruction. COMPARISON: CT chest abd pel wo con 01/27/2021 7:29 PM RADIATION DOSE METRICS: Total DLP (mGy-cm): 1011.42 FINDINGS: Limitations: Streak artifacts on numerous slices. Lungs: Continued calcified granuloma in the left lower lobe, but interval complete atelectasis of the inferior aspect of this lobe. Interval extensive patchy densities in the right lung base along with subsegmental atelectasis in the right lower lobe. Pleural spaces: Interval appearance of moderate bilateral pleural effusions. Heart: Continued cardiomegaly. Coronary artery calcifications again evident. Still no pericardial effusion. Liver: No suggestion of an interval noncalcified liver mass. Gallbladder and bile ducts: Cholecystectomy again evident. Still no biliary ductal dilatation. Pancreas: Continued fatty infiltration of the pancreas. Probable interval slight haziness in the fat around the pancreas. No obvious pancreatic ductal dilatation. Spleen: Still no splenomegaly. Adrenal glands: Subtle 13 mm mass in the right adrenal gland still possible. Approximately 10 mm left adrenal mass still likely. Kidneys and ureters: Continued probable water density in the approximately 2.9 cm mass in the middle to upper left kidney having no obvious change in size. Still no hydronephrosis. Stomach and bowel: Continued elongation of the sigmoid colon and at least mild sigmoid diverticulosis.. No obstruction. No mucosal thickening. Appendix: No evidence of appendicitis. Intraperitoneal space: No free air. No significant fluid collection. Vasculature: Continued atherosclerosis. Still no abdominal aortic aneurysm. Prominent calcific plaque in the SMA still present raising the possibility of a significant stenosis Lymph nodes: No change in the mildly enlarged right external iliac lymph node. No interval suspicious nodes. Urinary bladder: No interval large bladder mass or suggestion of thickening of its wall. Reproductive: No apparent interval uterine enlargement. Prominent streak artifacts through the uterus, but no interval large mass within it. Bones/joints: A few old slight compression fractures again evident. Continued slight spondylolisthesis at L4-L5. Right hip joint degeneration again evident. A few old distal right rib fractures still present. Soft tissues: Interval prominent decrease in size of the subcutaneous mass in the posterior lumbar region. Continued left buttock injection granulomatous calcification. Prior right buttock injections also likely. CT/CT abdomen pelvis wo con [id number] IMPRESSION: 1. Probable interval slight haziness in the fat around the pancreas raising the possibility of acute pancreatitis. 2. Interval appearance of moderate bilateral pleural effusions associated with prominent left and at least mild right lower lobe atelectasis. Interval extensive patchy densities elsewhere in the right lung base questionably due to pneumonia and/or edema. Continued cardiomegaly. 3. Small adrenal masses still suspected. No apparent change in the left renal mass indicating a simple cyst needing no follow-up. Other findings detailed above. COMMENTS: Consistent with the [employer]'s Incidental Findings Committee white paper (J Am Donny Radiol 2017): Any incidental adrenal lesion less than or equal to 1 cm is likely benign. No follow-up imaging is recommended for these lesions per consensus recommendations based on imaging criteria. Further lab evaluation could be pursued if warranted based on clinical findings.
[2021-08-08 14:29] LABS: ABG PCO2 46.8 mmHg (35-45); ABG PH Result 7.42 (7.35-7.45); Arterial Blood Gas Hematocrit 26.9 % (37-47); Blood Gas Sample Type Arterial; HCO3 ABG 30.1 mmol/L (22-26); PO2 ABG 57.3 mmHg (80.0-100.0)
[2021-08-08 14:30] LABS: Blood Gas Sample Site Brachial, right
--- NOTE | 2021-08-08 15:46 | PC.NURSE ---
Talked with Dr. Berkowitz about patient refusing to eat or drink. Patient's noon blood sugar was 75. Dr. Berkowitz gave order to give 1 amp of D50 at this time.
[2021-08-08] MEDS: dextrose 50% syringe 50 mL 25 ML IVP (15:51)
[2021-08-08 17:26] LABS: Glucose Point of Care 118 mg/dL (70-110)
[2021-08-08 21:31] LABS: Glucose Point of Care 123 mg/dL (70-110)
[2021-08-09] VITALS (10 sets, daily range): BP systolic 105–128; BP diastolic 69–79; PULSE 73–124; RESP 13–28; TEMP 36.3–37; O2SAT 92–99
[2021-08-09 05:38] LABS: Basophils % 0.6 %; Eosinophils # 0.1 10^3/uL (0.0-0.8); Eosinophils % 1.2 %; Hematocrit 34.7 % (37.0-47.0); Hemoglobin 10.3 g/dL (11.5-15.3); Lymphocytes # 1.2 10^3/uL (0.8-4.8); Lymphocytes % 23.1 %; Mean Corpuscular HGB Conc 29.7 g/dL (30.0-36.0); Mean Corpuscular Hemoglobin 30.4 pg (28.0-34.0); Mean Corpuscular Volume 102.4 fl (81-99); Mean Platelet Volume 12.1 fL (7.4-10.4); Monocytes # 0.6 10^3/uL (0.2-0.9); Monocytes % 12.5 %; Neutrophils # 3.15 10^3/uL (1.8-7.7); Neutrophils % 61.6 %; Nucleated Red Blood Cells % 0 %; Platelet Count 176 10^3/cmm (130-400); Red Blood Count 3.39 10^6/uL (4.1-5.3); Red Cell Distribution Width 18.6 % (12.1-15.1); White Blood Count 5.1 10^3/uL (4.0-10.0)
[2021-08-09 05:57] LABS: Alanine Aminotransferase 11 U/L (0-33); Albumin Level 2.7 g/dL (3.5-5.2); Alkaline Phosphatase 277 IU/L (35-105); Blood Urea Nitrogen 15 mg/dL (8-23); Calcium 7.6 mg/dL (8.5-10.5); Carbon Dioxide 22 mmol/L (22-29); Chloride 99 mmol/L (98-107); Globulin 3.2 g/dL (1.3-4.6); Glucose 113 mg/dL (65-115); Magnesium 1.9 mg/dL (1.7-2.3); Osmolality Calculated 282 mOsm/kg (285-295); Sodium 135 mmol/L (136-145); Total Bilirubin 0.4 mg/dL (0.15-1.2); Total Protein 5.9 g/dL (6.6-8.7)
[2021-08-09 05:58] LABS: Anion Gap 18.3 (5-19); Aspartate Amino Transferase 45 U/L (0-32); Potassium 4.3 mmol/L (3.5-5.1)
[2021-08-09] MEDS: levothyroxine 25 mcg Tablet PO (06:14)
[2021-08-09] MEDS: levothyroxine 200 mcg Tablet PO (06:14)
[2021-08-09 06:37] LABS: Glucose Point of Care 101 mg/dL (70-110)
[2021-08-09 07:57] LABS: Lipase 510 U/L (13-60)
[2021-08-09] MEDS: folic acid 1 mg Tablet 2 MG PO (08:11)
[2021-08-09] MEDS: cholecalciferol (vitamin D3) 1,000 unit Tablet 1000 UNIT PO (08:11)
[2021-08-09] MEDS: midodrine 5 mg TABLET PO ×3 (08:11→20:44)
[2021-08-09] MEDS: phenytoin ER 100 mg Capsule 200 MG PO ×2 (08:11→20:44)
[2021-08-09] MEDS: dexamethasone 10 mg/mL INJ 6 MG IVP (08:12)
[2021-08-09] MEDS: pantoprazole DR 40 mg Tablet PO (08:12)
[2021-08-09] MEDS: clopidogrel 75 mg Tablet PO (08:12)
[2021-08-09 08:26] LABS: INR 3.24 (0.8-1.2)
--- NOTE | 2021-08-09 09:45 | P.PN_ITS ---
Subjective Subjective: Interval history: remains weak and sob. more awkae and alert. + anxious Medications: Reviewed: Yes Medication Review Details: Current Medications Acetaminophen (Acetaminophen 325 Mg Tablet) 650 mg PO Q6H PRN PRN Reason: MODERATE PAIN Last Admin: 08/06/21 04:49 Dose: 650 mg Documented by: Albuterol Sulfate (Albuterol 8 Gm Mdi) 2 puff INHALATION Q6H PRN PRN Reason: Shortness Of Breath Albuterol Sulfate (Albuterol 2.5 Mg/0.5 Ml Neb) 2.5 mg INHALATION Q4H. RESPIRATORY PRN PRN Reason: SHORTNESS OF BREATH Albuterol/Ipratropium (Ipratropium-Albuterol 3 Ml Neb) 3 ml INHALATION Q6H PRN PRN Reason: SHORTNESS OF BREATH Last Admin: 08/07/21 09:28 Dose: 3 ml Documented by: Atorvastatin Calcium (Atorvastatin 40 Mg Tablet) 80 mg PO BEDTIME@20 [facility] Last Admin: 08/08/21 22:16 Dose: Not Given Documented by: Baricitinib (Baricitinib 2 Mg Tablet) 2 mg PO Q24H [facility] Stop: 08/18/21 09:16 Last Admin: 08/09/21 08:11 Dose: 2 mg Documented by: Bisacodyl (Bisacodyl 10 Mg Supp) 10 mg ND DAILY PRN PRN Reason: Constipation Clopidogrel Bisulfate (Clopidogrel 75 Mg Tablet) 75 mg PO DAILY@0800 [facility] Last Admin: 08/09/21 08:12 Dose: 75 mg Documented by: Dexamethasone (Dexamethasone 10 Mg/Ml Inj) 6 mg IVP DAILY [facility] Last Admin: 08/09/21 08:12 Dose: 6 mg Documented by: Dextrose (Dextrose 50% Syringe 50 Ml) 25 ml IVP ONCE PRN; Protocol PRN Reason: hypoglycemia protocol Dextrose (Dextrose 50% Syringe 50 Ml) 50 ml IVP PRN PRN; Protocol PRN Reason: hypoglycemia protocol Folic Acid (Folic Acid 1 Mg Tablet) 2 mg PO DAILY@08 [facility] Last Admin: 08/09/21 08:11 Dose: 2 mg Documented by: Glucagon (Glucagon 1 Mg/Ml Inj 1 Ml) 1 mg IM ONCE PRN; Protocol PRN Reason: Adult Acute Hypoglycemia Prot. Dextrose (D5w) 500 mls @ 100 mls/hr IV ONCE PRN; Protocol PRN Reason: Adult Acute Hypoglycemia Prot Epoetin Shaquille 8,000 unit/ N/A 0.4 mls @ 0 mls/hr IVP ONCE [facility] Albumin Human (Albumin) 12.5 gm in 50 mls @ 60 mls/hr IV PRN PRN PRN Reason: Hypotension and/or symptomatic Ceftriaxone Sodium 1,000 mg/ (Sodium Chloride) 50 mls @ 100 mls/hr IV Q24H [facility]; Protocol Last Infusion: 08/08/21 12:33 Dose: Infused Documented by: Insulin Human Lispro (Insulin Lispro 100 Unit/1 Ml) 0 unit SUBCUT TIDWM [facility]; Protocol Last Admin: 08/09/21 08:14 Dose: Not Given Documented by: Levofloxacin (Levofloxacin 750 Mg Tablet) 750 mg PO Q48H [facility]; Protocol Levothyroxine Sodium (Levothyroxine 25 Mcg Tablet) 25 mcg PO DAILY@06 [facility] Last Admin: 08/09/21 06:14 Dose: 25 mcg Documented by: Levothyroxine Sodium (Levothyroxine 200 Mcg Tablet) 200 mcg PO DAILY@06 [facility] Last Admin: 08/09/21 06:14 Dose: 200 mcg Documented by: Magnesium Hydroxide (Magnesium Hydroxide 30 Ml Udc) 5 ml PO QID PRN PRN Reason: Constipation Midodrine (Midodrine 5 Mg Tablet) 5 mg PO TID [facility] Last Admin: 08/09/21 08:11 Dose: 5 mg Documented by: Ondansetron HCl (Ondansetron 2 Mg/Ml Sdv 2 Ml) 4 mg IVP Q6H PRN PRN Reason: NAUSEA AND VOMITING Last Admin: 08/05/21 18:31 Dose: 4 mg Documented by: Pantoprazole Sodium (Pantoprazole Dr 40 Mg Tablet) 40 mg PO DAILY@08 [facility] Last Admin: 08/09/21 08:12 Dose: 40 mg Documented by: Phenytoin (Phenytoin Er 100 Mg Capsule) 200 mg PO BID@ [facility] Last Admin: 08/09/21 08:11 Dose: 200 mg Documented by: Polyethylene Glycol (Polyethylene Glycol 3350 Pkt 17 Gm) 17 gm PO DAILY PRN PRN Reason: Constipation Senna/Docusate Sodium (Sennosides-Docusate Tablet) 2 tab PO BID PRN PRN Reason: Constipation Vitamin D (Cholecalciferol (Vitamin D3) 1,000 Unit Tablet) 1,000 unit PO DAILY@08 [facility] Last Admin: 08/09/21 08:11 Dose: 1,000 unit Documented by: Warfarin Sodium (Warfarin 1 Mg Tablet) 1.5 mg PO DAILY@14 [facility] Last Admin: 08/07/21 17:17 Dose: Not Given Documented by: Vitals/I&O/Wt Last Vital Signs Temp 97.4 F L 08/09/21 08:00 Pulse 124 H 08/09/21 08:00 Resp 24 H 08/09/21 08:00 BP 105/79 08/09/21 08:00 Pulse Ox 95 08/09/21 08:00 Weight last 48 hrs Weight 133.3 kg Physical Exam Narrative: EXAM NARRATIVE: sob on nc 02, verbal and interactive vs noted heent- nc/at, eomi, anicteric neck supple lungs crackles b/l heart reg, +ALEX abd soft, nt, nd, + bs ext 1+ b/l edema neuro-a,a, o x 2, interactive, follows commands Data : 08/09/21 04:47 08/09/21 04:47 Micro: Microbiology 08/03/21 19:24 Blood Culture - Final Blood NO GROWTH AFTER 5 DAYS 08/03/21 19:18 Blood Culture - Final Blood Coagulase negativ staphylococc A&P Assessment and plan (1) End stage renal disease: Seen via telehealth with assistance of RN at bedside 1. ESRD - HD MWF - 3.5 hrs, 3k, remove 2.5l as tolerated 2. COVID, receiving barcitinib, remdesivir and decadron, antibiotics for possible bacterial pneumonia 3. chest and abd ct scan- w/ q pancreatitis, pna, effusions, small adrenal masses- likely cysts 4. Anemia, iron repelete, will give epogen at dialysis. 5. resp acidosis- improving. bipap per medicine -SOB from pna 6. Diabetes 7. Hypophosphatemia, not receiving phosphate binder, low pth seen and examined w/ RN- telehealth visit time spent 30 minutes Status: Acute Plan see above hd mwf Attestations Medical Necessity Statement*: esrd, pna, covid Time Spent in Patient Care: 16 - 35 minutes (>than 50% of time spent in counselling and/or direct pt care on unit) . 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
[2021-08-09] MEDS: cefTRIAXone 1,000 MG in sodium chloride 0.9% (plus) 50 ML 100 MG IV (11:14)
--- NOTE | 2021-08-09 17:51 | P.PN_ITS ---
Subjective Subjective: Interval history: Patient is able to carry a decent conversation today, she is awake and alert, nonfocal neuro exam She complains of fatigue and weakness Pancreatitis noted on CT abdomen pelvis, lipase 500 Requested ultrasound-guided thoracentesis Cardiomegaly Adrenal cyst noted Vitals/I&O/Wt Last Vital Signs Temp 98.6 F 08/09/21 12:00 Pulse 80 08/09/21 17:20 Resp 20 H 08/09/21 12:00 BP 108/76 08/09/21 12:00 Pulse Ox 98 08/09/21 17:20 08/09/21 08/09/21 08/09/21 06:59 14:59 22:59 Intake Total 50 / 50 Balance 50 / 50 Weight last 48 hrs Weight 133.3 kg Physical Exam Narrative: EXAM NARRATIVE: Patient is able to converse 8 appropriately Nonfocal neuro exam She is able to follow commands appropriately Clinically looks euvolemic Abdominal pannus Right groin wound healing no active worsening of cellulitis No respiratory distress or conversational dyspnea She is doing well on 3 L nasal cannula Abdomen is soft She is awake and alert EOMI, PERRLA Nonfocal neuro exam Dry mucous membranes Data : 08/09/21 04:47 08/09/21 04:47 Micro: Microbiology 08/03/21 19:24 Blood Culture - Final Blood NO GROWTH AFTER 5 DAYS 08/03/21 19:18 Blood Culture - Final Blood Coagulase negativ staphylococc A&P Assessment and plan (1) Pleural effusion: Status: Acute (2) Encephalopathy due to COVID-19 virus: Status: Acute (3) Anemia, chronic disease: Status: Acute (4) End stage renal disease: Status: Acute (5) COVID-19: Status: Acute (6) Acute on chronic respiratory failure with hypoxia and hypercapnia: Status: Acute (7) Warfarin-induced coagulopathy: Status: Acute (8) Diabetes: Status: Acute Qualifiers: Chronic kidney disease stage: stage 3 (moderate) Chronic kidney disease stage 3 subtype: stage 3b (GFR 30-44) Diabetes mellitus complication detail: with chronic kidney disease Diabetes mellitus complication status: with kidney complications Diabetes mellitus halfway insulin use: 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 Diabetes mellitus type: type 2 Qualified Code(s): E11.22 - Type 2 diabetes mellitus with diabetic chronic kidney disease; N18.32 - Chronic kidney disease, stage 3b; Z79.4 - [facility] (current) use of insulin (9) Venous stasis: Status: Chronic Plan Acute pancreatitis Lipase 500 She is not expressing active emesis, Opioids for analgesia, trend lipase levels COVID-19 related hypoxia currently doing well on 3 L of cannula Continue remdesivir Decadron and baricitinib Empirical coverage with ceftriaxone Bilateral pleural effusion moderate, requested left-sided thoracentesis Hypothyroidism: Continue levothyroxine Chronic hypothyroidism: No acute decompensation Constipation: Bowel regimen as needed Recent stent placement history of coronary disease, INR goal 1.5-2 Plavix and Coumadin held secondary to schedule thoracentesis No active chest pain DNR/DNI Reduce ejection fraction heart failure without acute decompensation, LifeVest is already ordered from previous admission Recurrent admissions, patient's physical deconditioning and comorbid conditions puts her at high risk of guarded prognosis Attestations Medical Necessity Statement*: Continue medical management Time Spent in Patient Care: 15min Coding Level of Care Code 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 [employer] Diagnoses Pleural effusion J90 Encephalopathy due to COVID-19 virus U07.1; G93.49 Anemia, chronic disease D63.8 End stage renal disease N18.6 COVID-19 U07.1 Acute on chronic respiratory failure with hypoxia and hypercapnia J96.21; J96.22 Warfarin-induced coagulopathy D68.32; T45.515A Diabetes E11.22; N18.32; Z79.4 Chronic kidney disease stage: stage 3 (moderate) Chronic kidney disease stage 3 subtype: stage 3b (GFR 30-44) Diabetes mellitus complication detail: with chronic kidney disease Diabetes mellitus complication status: with kidney complications Diabetes mellitus halfway insulin use: 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 Diabetes mellitus type: type 2 Venous stasis I87.8
[2021-08-09 18:08] LABS: Glucose Point of Care 118 mg/dL (70-110)
[2021-08-09] MEDS: phytonadione (ADULT) 5 MG in sodium chloride 0.9% 50 ML 151.5 MG IV (18:27)
[2021-08-09] MEDS: atorvastatin 40 mg Tablet 80 MG PO (20:43)
[2021-08-10] VITALS (9 sets, daily range): BP systolic 98–124; BP diastolic 56–74; PULSE 76–115; RESP 16–24; TEMP 36.4–36.7; O2SAT 93–99
[2021-08-10] MEDS: levothyroxine 200 mcg Tablet PO (05:45)
[2021-08-10] MEDS: levothyroxine 25 mcg Tablet PO (05:45)
--- NOTE | 2021-08-10 06:00 | US_ITS ---
WS: [id number] ULTRASOUND-GUIDED LEFT THORACENTESIS CLINICAL INFORMATION: Left moderate pl effusion COMPARISON: None. PROCEDURE: Informed consent: The risks, benefits, and alternatives of the procedure were discussed with the mervin ent. Verbal and written consent was obtained. Timeout: A timeout was performed to confirm the correct patient, procedure, and site. Site: Left chest Preparation: A suitable skin site was identified. The patient was prepped and draped in usual sterile fashion. Lidocaine 1% was used for local anesthesia. Catheter: 4 Czech One-Step catheter. Fluid Volume: 1000 ml Color: Clear dark yellow 50 cc Sent to the laboratory for analysis. Remainder discarded safely. Complications: None. / thoracentesis [id number] IMPRESSION: 1. Uncomplicated ultrasound-guided left thoracentesis. Removal of 1000 cc pleu ral fluid 2. 50 cc sent for requested diagnostic tests. 3. No pneumothorax on the postthoracentesis portable radiograph.
[2021-08-10 06:49] LABS: Glucose Point of Care 119 mg/dL (70-110)
[2021-08-10 07:43] LABS: Basophils % 0.5 %; Eosinophils # 0.1 10^3/uL (0.0-0.8); Eosinophils % 1.8 %; Hematocrit 30.4 % (37.0-47.0); Hemoglobin 9.5 g/dL (11.5-15.3); Lymphocytes # 1.2 10^3/uL (0.8-4.8); Lymphocytes % 18.5 %; Mean Corpuscular HGB Conc 31.3 g/dL (30.0-36.0); Mean Corpuscular Hemoglobin 30.2 pg (28.0-34.0); Mean Corpuscular Volume 96.5 fl (81-99); Mean Platelet Volume 12.5 fL (7.4-10.4); Monocytes # 0.6 10^3/uL (0.2-0.9); Monocytes % 9.2 %; Neutrophils # 4.31 10^3/uL (1.8-7.7); Neutrophils % 69.2 %; Nucleated Red Blood Cells % 0 %; Platelet Count 159 10^3/cmm (130-400); Red Blood Count 3.15 10^6/uL (4.1-5.3); Red Cell Distribution Width 18.7 % (12.1-15.1); White Blood Count 6.2 10^3/uL (4.0-10.0)
[2021-08-10 07:57] LABS: INR 1.23 (0.8-1.2)
[2021-08-10 08:21] LABS: Alanine Aminotransferase 8 U/L (0-33); Albumin Level 2.4 g/dL (3.5-5.2); Alkaline Phosphatase 244 IU/L (35-105); Aspartate Amino Transferase 36 U/L (0-32); Blood Urea Nitrogen 21 mg/dL (8-23); Calcium 7.2 mg/dL (8.5-10.5); Carbon Dioxide 24 mmol/L (22-29); Chloride 100 mmol/L (98-107); Glucose 108 mg/dL (65-115); Lipase 245 U/L (13-60); Magnesium 1.9 mg/dL (1.7-2.3); Osmolality Calculated 288 mOsm/kg (285-295); Sodium 137 mmol/L (136-145); Total Bilirubin 0.3 mg/dL (0.15-1.2); Total Protein 5.4 g/dL (6.6-8.7)
[2021-08-10 08:26] LABS: Anion Gap 16.6 (5-19); Potassium 3.6 mmol/L (3.5-5.1)
[2021-08-10 08:27] LABS: Lactate Dehydrogenase 309 U/L (135-214)
--- NOTE | 2021-08-10 08:42 | PC.SOCIAL ---
IMM Update Pg. 2 of IMM updated and reviewed with patient's son over the phone. Verbalized understanding.
[2021-08-10] MEDS: cholecalciferol (vitamin D3) 1,000 unit Tablet 1000 UNIT PO (08:51)
[2021-08-10] MEDS: dexamethasone 10 mg/mL INJ 6 MG IVP (08:52)
[2021-08-10] MEDS: folic acid 1 mg Tablet 2 MG PO (08:52)
[2021-08-10] MEDS: pantoprazole DR 40 mg Tablet PO (08:52)
[2021-08-10] MEDS: midodrine 5 mg TABLET PO ×3 (08:53→22:24)
[2021-08-10] MEDS: phenytoin ER 100 mg Capsule 200 MG PO ×2 (08:59→22:24)
--- NOTE | 2021-08-10 09:59 | XR_ITS ---
WS: [id number] CHEST XRAY TECHNIQUE: Portable chest. CLINICAL INFORMATION: post thora COMPARISON: August 06, 2021 FINDINGS: Heart: Cardiomegaly. Aortic calcification. Lungs: Post left thoracentesis. Improved left pleural effusion. Small residual left pleural effusion with left basilar atelectasis. No pneumothorax. Stable diffuse bilateral pulmonary infiltrates. Bones: Normal visualized bony structures. XR/XR chest 1V portable [id number] IMPRESSION: 1. Post LEFT thoracentesis. No pneumothorax. 2. Stable diffuse bilateral pulmonary infiltrates. 3. Cardiomegaly. 4. Small residual left pleural effusion with left basilar atelectasis.
[2021-08-10 10:28] LABS: Mononuclear %, Pleural Fluid 98 %; Polynuclear Cells, Pleural # 0.002 10^3/uL; Polynuclear Cells, Pleural % 2 %
--- NOTE | 2021-08-10 11:13 | P.PN_ITS ---
Subjective Subjective: Interval history: Carole is feeling well today and has no specific complaints. She remains weak. S/p thoracentsis. Eating and drinking well. No specific uremic symptoms. No hypervolemic symptoms. Dialysis pending for today. Vitals/I&O/Wt Last Vital Signs Temp 97.6 F 08/09/21 20:00 Pulse 103 H 08/10/21 08:00 Resp 24 H 08/10/21 08:00 BP 116/74 08/10/21 08:00 Pulse Ox 98 08/10/21 08:00 08/09/21 08/10/21 08/10/21 22:59 06:59 14:59 Intake Total 220.5 / 220.5 240 / 240 Balance 220.5 / 220.5 240 / 240 Weight last 48 hrs Weight 133.3 kg Physical Exam Narrative: EXAM NARRATIVE: Constitutional: Awake, comfortable HEENT: Wet mucosa, no jvp, non icteric Lungs: Bilaterally clear without discernible wheeze, rales in all lung zones CVS: S1 S2, no murmurs Abdo: Soft, BS ok Ext 4: Minimal edema, peripheral perfusion with no cyanosis Neurological: Grossly non-focal Data : 08/10/21 07:25 08/10/21 07:25 A&P Assessment and plan (1) End stage renal disease: 1. ESRD For dialysis today, continue Friday, Friday, Friday schedule. Dose medication for GFR less than 15 on dialysis 2. Covid Remains on nasal cannula O2, s/p Remdesivir and Baricitinib, decadron Doing well in this regard 3. Hemodynamics Appears stable, close monitoring during dialysis 4. Chronic ESRD issues To be managed as an outpatient including anemia of ESRD, secondary hyperparathyroidism etc. 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
[2021-08-10 11:14] LABS: Glucose Point of Care 136 mg/dL (70-110)
[2021-08-10 11:18] LABS: LDH Pleural Fluid 112 U/L
--- NOTE | 2021-08-10 11:20 | PM.PN ---
Subjective Subjective: Interval history: This morning patient is awake and alert I asked her if she is hungry she said yes, remove her BiPAP and transition to 3 L nasal cannula saturating 94% 1 L left sided pleural fluid drained Patient is able to follow commands, I have requested Dr. Banda to evaluate her for decision-making capacity Vitals/I&O/Wt Last Vital Signs Temp 97.6 F 08/09/21 20:00 Pulse 103 H 08/10/21 08:00 Resp 24 H 08/10/21 08:00 BP 116/74 08/10/21 08:00 Pulse Ox 98 08/10/21 08:00 08/09/21 08/10/21 08/10/21 22:59 06:59 14:59 Intake Total 220.5 / 220.5 240 / 240 Balance 220.5 / 220.5 240 / 240 Weight last 48 hrs Weight 133.3 kg Physical Exam Narrative: EXAM NARRATIVE: Patient has waxing and waning encephalopathy This morning she was endorsing feeling hungry 3 L nasal cannula Saturating well Distended abdomen abdominal pannus without cellulitis Right groin wound healing She is able to wiggle her toes and fall to some extent Following commands Nonfocal neuro exam Poor concentration Patient is not using respiratory sensory muscles however she keeps moaning Abdomen is soft Rhonchorous breath sounds, diminished at the bases, Variable S1-S2 Data : 08/10/21 07:25 08/10/21 07:25 A&P Assessment and plan (1) Pleural effusion: Status: Acute (2) Encephalopathy due to COVID-19 virus: Status: Acute (3) Anemia, chronic disease: Status: Acute (4) End stage renal disease: Status: Acute (5) COVID-19: Status: Acute (6) Diabetes: Status: Acute Qualifiers: Chronic kidney disease stage: stage 3 (moderate) Chronic kidney disease stage 3 subtype: stage 3b (GFR 30-44) Diabetes mellitus complication detail: with chronic kidney disease Diabetes mellitus complication status: with kidney complications Diabetes mellitus skilled nursing insulin use: with skilled nursing use Diabetes mellitus type: type 2 Qualified Code(s): E11.22 - Type 2 diabetes mellitus with diabetic chronic kidney disease; N18.32 - Chronic kidney disease, stage 3b; Z79.4 - alf (current) use of insulin (7) Hypoxemia: Status: Acute (8) Venous stasis: Status: Chronic Plan Waxing and waning encephalopathy COVID-19 related I have kept her on ceftriaxone she does not make enough urine to get a sample Continue baricitinib remdesivir and Decadron Hypoxia related to COVID-19, currently on 3 L nasal cannula, Thoracentesis on 08/10 left-sided, removed 1 L Plan to discharge her back to [facility] in next 24 hours, today I am planning to get Dr. 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 [facility] Fwd Diagnoses Pleural effusion J90 Encephalopathy due to COVID-19 virus U07.1; G93.49 Anemia, chronic disease D63.8 End stage renal disease N18.6 COVID-19 U07.1 Diabetes E11.22; N18.32; Z79.4 Chronic kidney disease stage: stage 3 (moderate) Chronic kidney disease stage 3 subtype: stage 3b (GFR 30-44) Diabetes mellitus complication detail: with chronic kidney disease Diabetes mellitus complication status: with kidney complications 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
[2021-08-10 11:28] LABS: Appearance, Pleural Fluid CLEAR (CLEAR); Color, Pleural Fluid Yellow (Pale Yellow); PATH Referral YES
[2021-08-10 11:37] LABS: Left Pleural Fluid Analysis Left Lung
[2021-08-10] MEDS: cefTRIAXone 1,000 MG in sodium chloride 0.9% (plus) 50 ML 100 MG IV (12:09)
[2021-08-10] MEDS: warfarin 1 mg Tablet 1.5 MG PO (14:45)
[2021-08-10 17:17] LABS: Glucose Point of Care 219 mg/dL (70-110)
[2021-08-10] MEDS: insulin lispro 100 unit/1 mL SUBCUT (22:24)
[2021-08-10] MEDS: atorvastatin 40 mg Tablet 80 MG PO (22:24)
[2021-08-11] VITALS (7 sets, daily range): BP systolic 92–110; BP diastolic 61–72; PULSE 72–97; RESP 13–24; TEMP 36.5–36.7; O2SAT 93–99
[2021-08-11] MEDS: levothyroxine 200 mcg Tablet PO (06:24)
[2021-08-11] MEDS: levothyroxine 25 mcg Tablet PO (06:24)
[2021-08-11 06:45] LABS: Glucose Point of Care 83 mg/dL (70-110)
--- NOTE | 2021-08-11 07:55 | P.PN_ITS ---
Subjective Subjective: Interval history: No new issues. Dialysis went well yesterday. Breathing comfortably. No uremic Sx. No hypervolemic Sx. Vitals remain stable Medications: Reviewed: Yes Medication Review Details: Current Medications Acetaminophen (Acetaminophen 325 Mg Tablet) 650 mg PO Q6H PRN PRN Reason: MODERATE PAIN Last Admin: 08/06/21 04:49 Dose: 650 mg Documented by: Albuterol Sulfate (Albuterol 8 Gm Mdi) 2 puff INHALATION Q6H PRN PRN Reason: Shortness Of Breath Albuterol Sulfate (Albuterol 2.5 Mg/0.5 Ml Neb) 2.5 mg INHALATION Q4H.RESPIRATORY PRN PRN Reason: SHORTNESS OF BREATH Albuterol/Ipratropium (Ipratropium-Albuterol 3 Ml Neb) 3 ml INHALATION Q6H PRN PRN Reason: SHORTNESS OF BREATH Last Admin: 08/07/21 09:28 Dose: 3 ml Documented by: Atorvastatin Calcium (Atorvastatin 40 Mg Tablet) 80 mg PO BEDTIME@20 [facility] Last Admin: 08/08/21 22:16 Dose: Not Given Documented by: Baricitinib (Baricitinib 2 Mg Tablet) 2 mg PO Q24H [facility] Stop: 08/18/21 09:16 Last Admin: 08/09/21 08:11 Dose: 2 mg Documented by: Bisacodyl (Bisacodyl 10 Mg Supp) 10 mg [place] DAILY PRN PRN Reason: Constipation Clopidogrel Bisulfate (Clopidogrel 75 Mg Tablet) 75 mg PO DAILY@0800 [facility] Last Admin: 08/09/21 08:12 Dose: 75 mg Documented by: Dexamethasone (Dexamethasone 10 Mg/Ml Inj) 6 mg IVP DAILY [facility] Last Admin: 08/09/21 08:12 Dose: 6 mg Documented by: Dextrose (Dextrose 50% Syringe 50 Ml) 25 ml IVP ONCE PRN; Protocol PRN Reason: hypoglycemia protocol Dextrose (Dextrose 50% Syringe 50 Ml) 50 ml IVP PRN PRN; Protocol PRN Reason: hypoglycemia protocol Folic Acid (Folic Acid 1 Mg Tablet) 2 mg PO DAILY@08 [facility] Last Admin: 08/09/21 08:11 Dose: 2 mg Documented by: Glucagon (Glucagon 1 Mg/Ml Inj 1 Ml) 1 mg IM ONCE PRN; Protocol PRN Reason: Adult Acute Hypoglycemia Prot. Dextrose (D5w) 500 mls @ 100 mls/hr IV ONCE PRN; Protocol PRN Reason: Adult Acute Hypoglycemia Prot Epoetin Shaquille 8,000 unit/ N/A 0.4 mls @ 0 mls/hr IVP ONCE [facility] Albumin Human (Albumin) 12.5 gm in 50 mls @ 60 mls/hr IV PRN PRN PRN Reason: Hypotension and/or symptomatic Ceftriaxone Sodium 1,000 mg/ (Sodium Chloride) 50 mls @ 100 mls/hr IV Q24H [facility]; Protocol Last Infusion: 08/08/21 12:33 Dose: Infused Documented by: Insulin Human Lispro (Insulin Lispro 100 Unit/1 Ml) 0 unit SUBCUT TIDWM [facility]; Protocol Last Admin: 08/09/21 08:14 Dose: Not Given Documented by: Levofloxacin (Levofloxacin 750 Mg Tablet) 750 mg PO Q48H [facility]; Protocol Levothyroxine Sodium (Levothyroxine 25 Mcg Tablet) 25 mcg PO DAILY@06 [facility] Last Admin: 08/09/21 06:14 Dose: 25 mcg Documented by: Levothyroxine Sodium (Levothyroxine 200 Mcg Tablet) 200 mcg PO DAILY@06 [facility] Last Admin: 08/09/21 06:14 Dose: 200 mcg Documented by: Magnesium Hydroxide (Magnesium Hydroxide 30 Ml Udc) 5 ml PO QID PRN PRN Reason: Constipation Midodrine (Midodrine 5 Mg Tablet) 5 mg PO TID [facility] Last Admin: 08/09/21 08:11 Dose: 5 mg Documented by: Ondansetron HCl (Ondansetron 2 Mg/Ml Sdv 2 Ml) 4 mg IVP Q6H PRN PRN Reason: NAUSEA AND VOMITING Last Admin: 08/05/21 18:31 Dose: 4 mg Documented by: Pantoprazole Sodium (Pantoprazole Dr 40 Mg Tablet) 40 mg PO DAILY@08 [facility] Last Admin: 08/09/21 08:12 Dose: 40 mg Documented by: Phenytoin (Phenytoin Er 100 Mg Capsule) 200 mg PO BID@, [facility] Last Admin: 08/09/21 08:11 Dose: 200 mg Documented by: Polyethylene Glycol (Polyethylene Glycol 3350 Pkt 17 Gm) 17 gm PO DAILY PRN PRN Reason: Constipation Senna/Docusate Sodium (Sennosides-Docusate Tablet) 2 tab PO BID PRN PRN Reason: Constipation Vitamin D (Cholecalciferol (Vitamin D3) 1,000 Unit Tablet) 1,000 unit PO DAILY@08 [facility] Last Admin: 08/09/21 08:11 Dose: 1,000 unit Documented by: Warfarin Sodium (Warfarin 1 Mg Tablet) 1.5 mg PO DAILY@14 [facility] Last Admin: 08/07/21 17:17 Dose: Not Given Documented by: Vitals/I&O/Wt Last Vital Signs Temp 97.7 F 08/11/21 07:50 Pulse 97 08/11/21 07:50 Resp 18 08/11/21 07:50 BP 110/72 08/11/21 07:50 Pulse Ox 98 08/11/21 07:50 Physical Exam Narrative: EXAM NARRATIVE: Constitutional: Awake, comfortable HEENT: Wet mucosa, no jvp, non icteric Lungs: Bilaterally clear without discernible wheeze, rales in all lung zones CVS: S1 S2, no murmurs Abdo: Soft, BS ok Ext 4: Minimal edema, peripheral perfusion with no cyanosis Neurological: Grossly non-focal Data : 08/10/21 07:25 08/10/21 07:25 A&P Assessment and plan (1) End stage renal disease: 1. ESRD No acute indication for dialysis today, continue Friday, Friday, Friday schedule. Dose medication for GFR less than 15 on dialysis 2. Covid Remains on nasal cannula O2, s/p Remdesivir and Baricitinib, decadron Doing well in this regard 3. Hemodynamics Appears stable, close monitoring during dialysis 4. Chronic ESRD issues To be managed as an outpatient including anemia of ESRD, secondary hyperparathyroidism etc. 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
[2021-08-11] MEDS: cholecalciferol (vitamin D3) 1,000 unit Tablet 1000 UNIT PO (08:30)
[2021-08-11] MEDS: folic acid 1 mg Tablet 2 MG PO (08:30)
[2021-08-11] MEDS: midodrine 5 mg TABLET PO (08:31)
[2021-08-11] MEDS: pantoprazole DR 40 mg Tablet PO (08:31)
[2021-08-11] MEDS: dexamethasone 10 mg/mL INJ 6 MG IVP (08:31)
[2021-08-11] MEDS: phenytoin ER 100 mg Capsule 200 MG PO (08:41)
[2021-08-11 10:55] LABS: Glucose Point of Care 199 mg/dL (70-110)
--- NOTE | 2021-08-11 11:19 | W.PM.PSYCONS ---
Providers/Reason for Consult Consulting Physican/Specialty*: Adan Banda MD, psychiatry. Reason for Consult*: Capacity. Attending Physician: Ruddy Berkowitz MD Primary Care Provider: Pascual Kay MD Psych Consult HPI History of Present Illness Carole Lee is a 75 year old female who presented to the emergency department with the following report: Chief Complaint: COVID symptoms Stated Complaint: COVID, LOW O2 Time Seen by Provider: 08/03/21 12:19 History of Present Illness:?? HPI Narrative: Ms. Lee is a 75-year-old lady with very complex past medical history including CAD, diabetes, end-stage renal disease on dialysis, history of chronic hypoxic respiratory failure presenting to the emergency department due to worsening oxygen saturations.? Apparently she recently, unknown exactly when, tested positive for COVID.? Patient reports starting last night feeling much more short of breath.? Overall course of symptoms has been worsening.? Intensity is moderate to severe.? Worsening oxygen requirement.? Denies other new significant changes to health though baseline mental status is mildly limited.? No other significant changes to health, exacerbating, alleviating, or provoking factors identified. Pertinent past history: COPD, diabetes and other Onset (ago): day(s) Context: recent illness Timing: progressively worsening Severity: severe Exacerbating factors: other Relieving factors: oxygen Known history of: other Associated symptoms: Reports cough She was admitted to the MedSurg unit for definitive treatment of those issues. A psychiatric consult was requested secondary to wanting to discharge and making sure that the POA was still in effect based on her current psychological psychiatric functioning. She presents today alert and oriented to person and place. She however is not oriented to purpose. She cannot explain to me why she was in the hospital although she did know she was in the hospital. When I would ask questions she would say things like probably and may be. So she has no comprehension of her condition or how to best address the conditions that she has. When asked about discharge planning where she would go her response was that she thought she did stay here. I explained to her that this is an acute hospital and that we do not keep people in that kind of setting and that the correction would be the appropriate setting for her. She did not argue against that but seemed perplexed as to why she would just stay here. Meds Home Medications and Allergies Home Medications Medication Instructions Recorded Confirmed Last Taken Type clopidogrel 75 mg tablet 75 mg PO DAILY@79911/29/20 08/03/21 08/03/21 History atorvastatin 80 mg tablet 80 mg PO BEDTIME@12/07/20 08/03/21 08/02/21 History calcitriol 0.25 mcg capsule 0.25 mcg PO DAILY@0801/16/21 08/03/21 08/03/21 History citalopram 10 mg tablet 10 mg PO DAILY@0802/28/21 08/03/21 08/03/21 History docusate sodium 100 mg capsule 100 mg PO DAILY PRN 02/28/21 08/03/21 07/04/21 History insulin aspart U-100 100 unit/mL See Rx Instructions .ROUTE .COMPLEX 06/13/21 08/03/21 07/26/21 07:00 History (3 mL) subcutaneous pen (Novolog 3 units Flexpen U-100 Insulin aspart) phenytoin sodium extended 100 mg 200 mg PO BID@06/13/21 08/03/21 08/03/21 History capsule bisacodyl 10 mg rectal suppository 10 mg ND DAILY PRN 07/04/21 08/03/21 Unknown History folic acid 1 mg tablet 2 mg PO DAILY@07/04/21 08/03/21 08/03/21 History levothyroxine 200 mcg tablet 200 mcg PO DAILY@07/04/21 08/03/21 08/03/21 History levothyroxine 25 mcg tablet 25 mcg PO DAILY@07/04/21 08/03/21 08/03/21 History magnesium hydroxide 400 mg/5 mL 5 ml PO QID PRN 07/04/21 08/03/21 Unknown History oral suspension (Milk of Magnesia) pantoprazole 40 mg tablet,delayed 40 mg PO DAILY@07/04/21 08/03/21 08/03/21 History release (Protonix) metoprolol tartrate 25 mg tablet 50 mg PO BID@,20 #0 tab 07/22/21 08/03/21 08/03/21 Rx spironolactone 25 mg tablet 6.25 mg PO DAILY@08 #0 tab 07/22/21 08/03/21 08/03/21 Rx polyethylene glycol 3350 17 17 g PO DAILY PRN 07/26/21 08/03/21 Unknown History gram/dose oral powder (Miralax) sennosides 8.6 mg-docusate sodium 2 tab PO BID PRN 07/26/21 08/03/21 Unknown History 50 mg tablet (Senna-S) sodium phosphates 19 gram-7 118 ml ND DAILY PRN 07/26/21 08/03/21 Unknown History gram/118 mL enema (Enema Disposable) warfarin 1 mg tablet 1.5 mg PO DAILY@14 07/26/21 08/03/21 08/02/21 History albuterol sulfate 90 mcg/actuation 2 puff INHALATION Q6H PRN 08/03/21 08/03/21 Unknown History aerosol inhaler (ProAir HFA) cholecalciferol (vitamin D3) 25 25 mcg PO DAILY@08 08/03/21 08/03/21 08/03/21 History mcg (1,000 unit) tablet (Vitamin D3) diazepam 2 mg tablet 2 mg PO BID PRN 08/03/21 08/03/21 Unknown History meclizine 25 mg tablet 25 mg PO TID PRN 08/03/21 08/03/21 08/03/21 History ondansetron 4 mg disintegrating 8 mg PO TID PRN 08/03/21 08/03/21 08/03/21 History tablet Allergies Allergy/AdvReac Type Severity Reaction Status Date / Time gentamicin Allergy Unknown Verified 08/03/21 14:13 hydromorphone [From Dilaudid] Allergy Unknown Verified 08/03/21 14:13 Current Medications Current Medications Generic Name Dose Route Start Last Admin Trade Name Micha PRN Reason Stop Dose Admin Acetaminophen 650 mg 08/06/21 04:45 08/06/21 04:49 Acetaminophen 325 Mg Tablet PO 650 mg Q6H PRN Administration MODERATE PAIN Albuterol/Ipratropium 3 ml 08/03/21 23:02 08/07/21 09:28 Ipratropium-Albuterol 3 Ml Neb INHALATION 3 ml Q6H PRN Administration SHORTNESS OF BREATH Atorvastatin Calcium 80 mg 08/03/21 23:02 08/10/21 22:24 Atorvastatin 40 Mg Tablet PO 80 mg BEDTIME@20 [facility] Administration Baricitinib 2 mg 08/05/21 09:15 08/10/21 09:00 Baricitinib 2 Mg Tablet PO 08/18/21 09:16 2 mg Q24H [facility] Administration Clopidogrel Bisulfate 75 mg 08/04/21 08:00 08/09/21 08:12 Clopidogrel 75 Mg Tablet PO 75 mg DAILY@0800 [facility] Administration Dexamethasone 6 mg 08/04/21 09:00 08/10/21 08:52 Dexamethasone 10 Mg/Ml Inj IVP 6 mg DAILY [facility] Administration Folic Acid 2 mg 08/04/21 08:00 08/10/21 08:52 Folic Acid 1 Mg Tablet PO 2 mg DAILY@08 [facility] Administration Ceftriaxone Sodium 1,000 mg/ 50 mls @ 100 mls/hr 08/08/21 11:45 08/10/21 12:09 Sodium Chloride IV 100 mls/hr Q24H [facility] Administration Protocol Insulin Human Lispro 0 unit 08/03/21 23:02 08/10/21 22:24 Insulin Lispro 100 Unit/1 Ml SUBCUT 6 unit TIDWM [facility] Administration Protocol Levothyroxine Sodium 25 mcg 08/04/21 06:00 08/10/21 05:45 Levothyroxine 25 Mcg Tablet PO 25 mcg DAILY@06 [facility] Administration Levothyroxine Sodium 200 mcg 08/04/21 06:00 08/10/21 05:45 Levothyroxine 200 Mcg Tablet PO 200 mcg DAILY@06 [facility] Administration Midodrine 5 mg 08/06/21 09:00 08/10/21 22:24 Midodrine 5 Mg Tablet PO 5 mg TID [facility] Administration Ondansetron HCl 4 mg 08/03/21 23:02 08/05/21 18:31 Ondansetron 2 Mg/Ml Sdv 2 Ml IVP 4 mg Q6H PRN Administration NAUSEA AND VOMITING Pantoprazole Sodium 40 mg 08/04/21 08:00 08/10/21 08:[address] 40 Mg Tablet PO 40 mg DAILY@08 [facility] Administration Phenytoin 200 mg 08/03/21 23:02 08/10/21 22:24 Phenytoin Er 100 Mg Capsule PO 200 mg BID@ [facility] Administration Vitamin D 1,000 unit 08/04/21 08:00 08/10/21 08:51 Cholecalciferol (Vitamin D3) 1,000 Unit Tablet PO 1,000 unit DAILY@08 [facility] Administration Warfarin Sodium 1.5 mg 08/04/21 14:00 08/10/21 14:45 Warfarin 1 Mg Tablet PO 1.5 mg DAILY@14 [facility] Administration PFSH NPU PFSH: Medical History Acute hypercapnic respiratory failure Afib Anemia Atrial fibrillation with RVR CAD (coronary artery disease) Chronic anticoagulation Eliquis CKD (chronic kidney disease) Congestive heart failure Diabetes Dyslipidemia Hematoma of left flank HTN (hypertension) Morbid obesity Morbid obesity NSTEMI (non-ST elevated myocardial infarction) PVD (peripheral vascular disease) 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) Status post insertion of drug-eluting stent into left anterior descending (LAD) artery Urine retention Venous stasis Surgical History History of ankle surgery History of cataract surgery History of cholecystectomy History of heart artery stent History of umbilical hernia repair S/P hemodialysis catheter insertion (11/22/20) Right internal jugular vein d/c 12/25/20 Family History Other Cancer Diabetes Social History Smoking and tobacco status: never smoked Alcohol intake: never Marital status: / Current occupational status: retired History of recent travel: No Mental Status Exam MSE Comments: This is an obese versus morbidly obese white female in a hospital gown with limited grooming but adequate eye contact. No abnormal movements except for psychomotor retardation. Mostly cooperative with exam in no acute distress. Speech was limited and she did answer questions with short responses but limited spontaneous or self-directed conversation was generated. It was decreased rate and volume. Mood described as okay affect subdued. Thought process mostly organized. Thought content: Patient denied suicidal or homicidal ideation, there were no delusions reported or noted, she denied any auditory or visual hallucinations. Attention and concentration were limited and memory was unreliable but none were formally tested. She is alert and oriented times person and place. Insight and judgment are impaired impulse control appears fair. Vitals/I&O/Wt Last Vital Signs Temp 98.0 F 08/10/21 20:00 Pulse 72 08/11/21 03:42 Resp 18 08/10/21 20:00 BP 118/56 08/10/21 20:00 Pulse Ox 98 08/11/21 03:42 08/10/21 08/10/21 08/11/21 14:59 22:59 06:59 Intake Total 720 / 720 Balance 720 / 720 Data NPU : 08/10/21 07:25 08/10/21 07:25 A&P Assessment and plan (1) Pleural effusion: Status: Acute (2) Encephalopathy due to COVID-19 virus: Status: Acute (3) Anemia, chronic disease: Status: Acute (4) End stage renal disease: Status: Acute (5) COVID-19: Status: Acute (6) Acute on chronic respiratory failure with hypoxia and hypercapnia: Status: Acute (7) Congestive heart failure: Status: Acute (8) Status post insertion of drug-eluting stent into left anterior descending (LAD) artery: Status: Acute (9) Warfarin-induced coagulopathy: Status: Acute (10) Acute renal failure superimposed on stage 3 chronic kidney disease: Status: Acute (11) Diabetes: Status: Acute Qualifiers: Chronic kidney disease stage: stage 3 (moderate) Chronic kidney disease stage 3 subtype: stage 3b (GFR 30-44) Diabetes mellitus complication detail: with chronic kidney disease Diabetes mellitus complication status: with kidney complications Diabetes mellitus watermaster insulin use: with watermaster use Diabetes mellitus type: type 2 Qualified Code(s): E11.22 - Type 2 diabetes mellitus with diabetic chronic kidney disease; N18.32 - Chronic kidney disease, stage 3b; 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 (12) CKD (chronic kidney disease): Status: Acute (13) Acute on chronic congestive heart failure: Status: Acute Qualifiers: Heart failure type: systolic Qualified Code(s): I50.23 - Acute on chronic systolic (congestive) heart failure (14) Hypoxemia: Status: Acute (15) Venous stasis: Status: Chronic (16) Dyslipidemia: Status: Chronic (17) Dementia: Status: Acute Plan This is a 75-year-old white female with a medical history significant for recent Covid who presented with shortness of breath and has been hospitalized for about a week with continued positive convalescence but concern for decision-making capacity now that discharge planning has started. 1. Continue current medication. 2. No acute/inpatient psychiatric issues present. 3. Patient unable to report any clear understanding of the purpose for the hospitalization or why she is considered better now or any important issues surrounding her condition/illness so she lacks capacity for decision-making and POA if present should be followed. 4. Please contact if any additional questions exist. Attestations NPU Medical Necessity Statement*: Please see primary team note for medical necessity. 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 Diagnoses Pleural effusion J90 Encephalopathy due to COVID-19 virus U07.1; G93.49 Anemia, chronic disease D63.8 End stage renal disease N18.6 COVID-19 U07.1 Acute on chronic respiratory failure with hypoxia and hypercapnia J96.21; J96.22 Congestive heart failure I50.9 Status post insertion of drug-eluting stent into left anterior descending (LAD) artery Z95.5 Warfarin-induced coagulopathy D68.32; T45.515A Acute renal failure superimposed on stage 3 chronic kidney disease N17.9; N18.30 Diabetes E11.22; N18.32; Z79.4 Chronic kidney disease stage: stage 3 (moderate) Chronic kidney disease stage 3 subtype: stage 3b (GFR 30-44) Diabetes mellitus complication detail: with chronic kidney disease Diabetes mellitus complication status: with kidney complications Diabetes mellitus watermaster insulin use: with watermaster use Diabetes mellitus type: type 2 CKD (chronic kidney disease) N18.9 Acute on chronic congestive heart failure I50.23 Heart failure type: systolic Hypoxemia R09.02 Venous stasis I87.8 Dyslipidemia E78.5 Dementia F03.90
--- NOTE | 2021-08-11 12:02 | P.DS_ITS ---
Discharge Providers Date of Admission: 08/03/21 16:22 Date of Discharge: August 11, 2021 Attending Provider at Admission: Ruddy Berkowitz MD Attending Provider at Discharge: Ruddy Berkowitz MD Primary Care Provider: Pascual Kay MD Diagnoses at Discharge Discharge Diagnosis (1) Pleural effusion: Status: Acute (2) Encephalopathy due to COVID-19 virus: Status: Acute (3) Anemia, chronic disease: Status: Acute (4) End stage renal disease: Status: Acute (5) COVID-19: Status: Acute (6) Acute on chronic respiratory failure with hypoxia and hypercapnia: Status: Acute (7) Congestive heart failure: Status: Acute (8) Status post insertion of drug-eluting stent into left anterior descending (LAD) artery: Status: Acute (9) Warfarin-induced coagulopathy: Status: Acute (10) Acute renal failure superimposed on stage 3 chronic kidney disease: Status: Acute (11) Diabetes: Status: Acute Qualifiers: Chronic kidney disease stage: stage 3 (moderate) Chronic kidney disease stage 3 subtype: stage 3b (GFR 30-44) Diabetes mellitus complication detail: with chronic kidney disease Diabetes mellitus complication status: with kidney complications Diabetes mellitus termite exterminator insulin use: with termite exterminator use Diabetes mellitus type: type 2 Qualified Code(s): E11.22 - Type 2 diabetes mellitus with diabetic chronic kidney disease; N18.32 - Chronic kidney disease, stage 3b; Z79.4 - terminal operations manager (current) use of insulin (12) CKD (chronic kidney disease): Status: Acute (13) Acute on chronic congestive heart failure: Status: Acute Qualifiers: Heart failure type: systolic Qualified Code(s): I50.23 - Acute on chronic systolic (congestive) heart failure (14) Hypoxemia: Status: Acute (15) Venous stasis: Status: Chronic (16) Dyslipidemia: Status: Chronic (17) Dementia: Status: Acute Reason for Visit Reason for Visit: COVID, LOW O2 Hospital Course Hospital Course Carole Lee is a 75 year old female who was recently discharged from the hospital on 07/22 after prolonged hospitalization, she has history of bilateral pleural effusions, pleural effusion improved after 2 session of dialysis, INR goal 1.5-2 because of high risk of bleed, Permacath was placed for dialysis on previous visit, (she bled a lot with femoral dialysis catheter placement on last visit, also got infected at dialysis insertion site and required IV antibiotics,? required albumin for hypotension, went into fluid overload, which cleared with dialysis, family made her comfort care, when patient became more lucid she changed her CODE STATUS to full code, she was discharged with LifeVest, EF 20 to 25%) She has presented on 08/03 with worsening shortness of breath, has been diagnosed with COVID-19 infection.Patient is coming from [facility], patient is stating that she was put on 4 L nasal cannula, she tested positive on Monday 07/31. In the ER she was diagnosed with mild hypercapnia however pH compensated, she was put on BiPAP, chest x-ray consistent with pneumonia related to COVID-19 At the time of evaluation he was awake and alert on BiPAP, in front of her nurse she stated that she does not want to live on a ventilator and this should be conveyed to her family she also said she do not want chest compressions in case of cardiac arrest, this was conveyed to her son Leukopenia, anemia noted, nephro consulted Hospital course During her hospitalization patient had waxing and waning mentation, however there were no focal deficits, she was kept on BiPAP at night and 3 to 4 L nasal cannula in the daytime, she received dialysis sessions as per her schedule, her blood pressure remained stable, she did not require any blood transfusion, for her COVID-19 pneumonia she was given baricitinib, Decadron and remdesivir, on 08/[address] Banda to evaluate her for decision-making capacity. Patient does not carry capacity to make decisions on her behalf. However she is awake and alert oriented to place and person but she is not sure why she is in the hospital when I asked her if she is feeling fine to go back to group home she stated she would like to stay in the hospital. At the time of discharge I will reduce the dose of metoprolol because of her chronic hypotension. Patient went for thoracentesis on 08/10, left-sided thoracentesis done, 1 L removed, transudative. She will be discharged back to [facility]. Son was kept updated throughout her hospitalization. At the time of discharge she is saturating well on 3 L cannula I was told by the nursing staff that LifeVest has been arranged for her as well, I will give her prescription for INR check within 3 days Physical Exam Narrative: EXAM NARRATIVE: elderly female Morbid obese Abdominal pannus No sign of cellulitis Right groin wound seems to be healing No signs of edema of legs She is able to move all of her extremities She is awake and alert oriented to place and person Nonfocal neuro exam EOMI, PERRLA She was eating breakfast on her own when I examined her on 08/11 Discharge Data Studies Completed and Pending Completed Studies During Hospitalization Category Date Time Status CT abdomen pelvis wo con 25670 Routine Cat Scan 08/08/21 12:[address] head wo con* [id number] Routine Cat Scan 08/08/21 10:52 Completed CXRP [XR chest 1V portable [id number]] Stat Exams 08/10/21 09:59 Completed XR chest 1V portable [id number] Urgent Exams 08/03/21 12:24 Completed XR chest 2V insp/exp [id number] Routine Exams 08/06/21 07:32 Completed US thoracentesis [id number] Routine Ultrasound 08/10/21 06:00 Completed Pending at discharge Category Date Time Status Arterial Blood Gas W/O Coox AM LABS Lab 08/07/21 01:51 Received Complete Blood Count w/Auto AM LABS Lab 08/12/21 04:00 Ordered Complete Blood Count w/Auto Routine Lab 08/11/21 10:27 Ordered Comprehensive Metabolic Panel AM LABS Lab 08/12/21 04:00 Ordered Comprehensive Metabolic Panel Routine Lab 08/11/21 10:40 Ordered Magnesium AM LABS Lab 08/12/21 04:00 Ordered Magnesium Routine Lab 08/11/21 10:40 Ordered Phosphorus AM LABS Lab 08/12/21 04:00 Ordered Phosphorus Routine Lab 08/11/21 10:40 Ordered Prothrombin Time INR AM LABS Lab 08/11/21 04:00 Ordered Prothrombin Time INR AM LABS Lab 08/12/21 04:00 Ordered Sputum Culture and Gram Stain Routine Lab 08/03/21 23:02 Uncollected Total Protein Pleural Fluid Routine Lab 08/11/21 07:53 Uncollected Radiology Impressions Head CT 08/08/21 10:52 IMPRESSION: 1. No acute intracranial hemorrhage or edema. 2. Mild cerebral atrophy and chronic ischemic disease. Abdomen/Pelvis CT 08/08/21 12:55 IMPRESSION: 1. Probable interval slight haziness in the fat around the pancreas raising the possibility of acute pancreatitis. 2. Interval appearance of moderate bilateral pleural effusions associated with prominent left and at least mild right lower lobe atelectasis. Interval extensive patchy densities elsewhere in the right lung base questionably due to pneumonia and/or edema. Continued cardiomegaly. 3. Small adrenal masses still suspected. No apparent change in the left renal mass indicating a simple cyst needing no follow-up. Other findings detailed above. COMMENTS: Consistent with the [employer]'s Incidental Findings Committee white paper (J Am Donny Radiol 2017): Any incidental adrenal lesion less than or equal to 1 cm is likely benign. No follow-up imaging is recommended for these lesions per consensus recommendations based on imaging criteria. Further lab evaluation could be pursued if warranted based on clinical findings. Thoracentesis Ultrasound 08/10/21 06:00 IMPRESSION: 1. Uncomplicated ultrasound-guided left thoracentesis. Removal of 1000 cc pleural fluid 2. 50 cc sent for requested diagnostic tests. 3. No pneumothorax on the postthoracentesis portable radiograph. Chest X-Ray 08/10/21 09:59 IMPRESSION: 1. Post LEFT thoracentesis. No pneumothorax. 2. Stable diffuse bilateral pulmonary infiltrates. 3. Cardiomegaly. 4. Small residual left pleural effusion with left basilar atelectasis. Laboratory Results WBC Cancelled 08/11/21 10:06 Corrected WBC Cancelled 08/11/21 10:06 RBC Cancelled 08/11/21 10:06 Hgb Cancelled 08/11/21 10:06 Hct Cancelled 08/11/21 10:06 MCV Cancelled 08/11/21 10:06 MCH Cancelled 08/11/21 10:06 MCHC Cancelled 08/11/21 10:06 RDW Cancelled 08/11/21 10:06 Plt Count Cancelled 08/11/21 10:06 MPV Cancelled 08/11/21 10:06 Gran % Cancelled 08/11/21 10:06 Neut % (Auto) Cancelled 08/11/21 10:06 Lymph % (Auto) Cancelled 08/11/21 10:06 [place] % (Auto) Cancelled 08/11/21 10:06 Eos % (Auto) Cancelled 08/11/21 10:06 Baso % (Auto) Cancelled 08/11/21 10:06 Neut # (Auto) Cancelled 08/11/21 10:06 Lymph # (Auto) Cancelled 08/11/21 10:06 [place] # (Auto) Cancelled 08/11/21 10:06 Eos # (Auto) Cancelled 08/11/21 10:06 Baso # (Auto) Cancelled 08/11/21 10:06 Absolute Gran (auto) Cancelled 08/11/21 10:06 Nucleated RBC % (auto) Cancelled 08/11/21 10:06 Total Counted Cancelled 08/09/21 10:00 Nucleated RBCs # Cancelled 08/11/21 10:06 PT 15.80 SECONDS (12.1-14.9) H D 08/10/21 07:25 INR 1.23 (0.8-1.2) H 08/10/21 07:25 D-Dimer 1.01 ug/mIFEU (0-0.59) H 08/04/21 11:20 Specimen Type Arterial 08/08/21 14:15 Sample Site Brachial, right 08/08/21 14:15 ABG pH 7.42 (7.35-7.45) 08/08/21 14:15 ABG pCO2 46.8 mmHg (35-45) H 08/08/21 14:15 ABG pO2 57.3 mmHg (80.0-100.0) L 08/08/21 14:15 ABG HCO3 30.1 mmol/L (22-26) H 08/08/21 14:15 ABG O2 Saturation 96.2 08/07/21 09:28 ABG Base Excess 5.0 mmol/L (-2.0-2.0) H 08/08/21 14:15 Olvin Test N/a 08/08/21 14:15 A-a O2 Gradient 11.4 mmHg (5-10) H 08/07/21 09:28 Hematocrit 26.9 % (37-47) L 08/08/21 14:15 Hgb O2 Saturation 93.9 % (95-100) L 08/07/21 09:28 Carboxyhemoglobin 1.6 %THgb (0.4-20.1) 08/07/21 09:28 Methemoglobin 0.8 % (0.4-1.5) 08/07/21 09:28 Total Hemoglobin 8.2 g/dL (12-16) L 08/07/21 09:28 Sodium 138.0 mmol/L (131-143) 08/07/21 09:28 Potassium 3.4 mmol/L (3.5-5.0) L 08/07/21 09:28 Glucose 69.0 mg/dL (70-115) L 08/07/21 09:28 Ionized Calcium 1.1 mmol/L (1.1-1.4) 08/07/21 09:28 O2 Delivery Device None 08/08/21 14:15 O2 Liters/Min 3.0 % 08/07/21 09:28 FiO2 21.0 % 08/08/21 14:15 Tidal Volume 0.50 08/04/21 03:20 PEEP 10.0 cmH20 08/04/21 03:20 Hand Compositor ID Rierious 08/08/21 14:15 Sodium Cancelled 08/11/21 10:06 Potassium Cancelled 08/11/21 10:06 Chloride Cancelled 08/11/21 10:06 Carbon Dioxide Cancelled 08/11/21 10:06 Anion Gap Cancelled 08/11/21 10:06 BUN Cancelled 08/11/21 10:06 Creatinine Cancelled 08/11/21 10:06 GFR Calculation Cancelled 08/11/21 10:06 Glucose Cancelled 08/11/21 10:06 POC Glucose 199 mg/dL (70-110) H 08/11/21 10:48 Calculated Osmolality Cancelled 08/11/21 10:06 Calcium Cancelled 08/11/21 10:06 Phosphorus Cancelled 08/11/21 10:06 Magnesium Cancelled 08/11/21 10:06 Iron 32 ug/dL (37-145) L 08/04/21 11:20 TIBC 109 mcg/dl 08/04/21 11:20 % Saturation 29.3 % (20-50) 08/04/21 11:20 Unsat Iron Binding 77 ug/dL (112-347) L 08/04/21 11:20 Ferritin 1329 ng/mL (15-150) H 08/04/21 11:20 Total Bilirubin Cancelled 08/11/21 10:06 AST Cancelled 08/11/21 10:06 ALT Cancelled 08/11/21 10:06 Alkaline Phosphatase Cancelled 08/11/21 10:06 Ammonia 30 umol/L (11-51) 08/07/21 09:45 Lactate Dehydrogenase 309 U/L (135-214) H 08/10/21 07:25 Lactate Dehydrogenase Cancelled 08/10/21 07:25 Troponin T Baseline 122 ng/L (0-10) H* 08/03/21 12:52 Troponin T 120 Minute 120.0 ng/L (0-10) H 08/03/21 15:28 Delta Troponin T -2.0 ABS# (0-10) L 08/03/21 15:28 Troponin T Hi Sens 6Hr 122.7 ng/L (0-10) H 08/03/21 19:24 Troponin T Hi Sens 6Hr Delta 0.7 ng/L (0-12) 08/03/21 19:24 C-Reactive Protein 141.8 mg/L (0.0-4.9) H 08/04/21 02:39 NT-Pro-B Natriuret Pep 28580 pg/mL (0-450) H 08/03/21 12:52 Total Protein Cancelled 08/11/21 10:06 Albumin Cancelled 08/11/21 10:06 Globulin Cancelled 08/11/21 10:06 Lipase 245 U/L (13-60) H 08/10/21 07:25 Lipase Cancelled 08/10/21 07:25 Procalcitonin 0.20 ng/mL (0-0.5) 08/03/21 19:24 TSH 1.67 uIU/mL (0.27-4.20) 08/06/21 05:30 PTH Intact 91.1 pg/mL (15-65) H 08/06/21 13:23 Calcium (PTH Intact) 8.1 mg/dL (8.5-10.5) L 08/06/21 13:23 Pleural Color Yellow (Pale Yellow) H 08/09/21 10:00 Pleural Appearance Clear (CLEAR) 08/09/21 10:00 Pleural pH 8.00 (6.5-7.5) H 08/09/21 10:00 Pleural WBC 82.000 /uL (0-1000) 08/09/21 10:00 Pleural RBC 0.000 10^3/uL 08/09/21 10:00 Pleural Mononuc # Auto 0.080 10^3/uL 08/09/21 10:00 Pleural Other Cells Cancelled 08/09/21 10:00 Pleural Polynuclear % 2 % 08/09/21 10:00 Pleural Polynuclear # 0.002 10^3/uL 08/09/21 10:00 Pleural Mononuclear % 98 % 08/09/21 10:00 Pleural Other Cells Lt Left lung 08/09/21 10:00 Pleural LDH 112 U/L 08/09/21 10:00 Pleural Glucose 114.0 mg/dL 08/09/21 10:00 Hep Bs Antigen Non-reactive (Nonreactive) 08/04/21 11:20 Hep Bs Antibody 7.4 (11.5-1000) L 08/04/21 11:20 Hepatitis C Antibody Non-reactive (Nonreactive) 08/04/21 11:20 SARS-CoV-2 RNA (RT-PCR) Detected (NOT DETECTED) A 08/03/21 15:30 Path Cons w/Slide Cancelled 08/09/21 10:00 Pathology Message Yes 08/09/21 10:00 Vitals Last Vital Signs Temp 98.1 F 08/11/21 11:30 Pulse 84 08/11/21 11:30 Resp 18 08/11/21 11:30 BP 102/64 08/11/21 11:30 Pulse Ox 98 08/11/21 11:30 Discharge Plan Discharge Patient Disposition: Xfer SNF Condition: Stable Prescriptions: New levofloxacin 750 mg tablet 750 mg PO DAILY 5 Days Qty: 5 0RF Continued clopidogrel 75 mg tablet 75 mg PO DAILY@0800 0RF calcitriol 0.25 mcg capsule 0.25 mcg PO DAILY@0800 0RF levothyroxine 25 mcg tablet 25 mcg PO DAILY@06 0RF magnesium hydroxide [Milk of Magnesia] 400 mg/5 mL Suspension 5 ml PO QID PRN (Reason: Constipation) 0RF bisacodyl 10 mg Suppository 10 mg KS DAILY PRN (Reason: Constipation) 0RF levothyroxine 200 mcg tablet 200 mcg PO DAILY@06 0RF folic acid 1 mg Tablet 2 mg PO DAILY@08 0RF pantoprazole [Protonix] 40 mg tablet,delayed release (DR/EC) 40 mg PO DAILY@08 0RF spironolactone 25 mg tablet 6.25 mg PO DAILY@08 Qty: 0 0RF sennosides-docusate sodium [Senna-S] 8.6-50 mg Tablet 2 tab PO BID PRN (Reason: Constipation) 0RF Enema Disposable 19-7 gram/118 mL Enema 118 ml KS DAILY PRN (Reason: Constipation) 0RF warfarin 1 mg Tablet 1.5 mg PO DAILY@14 0RF polyethylene glycol 3350 [Miralax] 17 gram/dose Powder 17 g PO DAILY PRN (Reason: Constipation) 0RF atorvastatin 80 mg Tablet 80 mg PO BEDTIME@20 0RF citalopram 10 mg Tablet 10 mg PO DAILY@0800 0RF docusate sodium 100 mg capsule 100 mg PO DAILY PRN (Reason: Constipation) 0RF phenytoin sodium extended 100 mg capsule 200 mg PO BID@08,20 0RF insulin aspart U-100 [Novolog Flexpen U-100 Insulin] 100 unit/mL (3 mL) insul in pen See Rx Instructions .ROUTE .COMPLEX 0RF Rx Instructions: sliding scale before meals (06:30,11:30,16:30) 150-200=3 units 201-250=5 units 251-300=7 units 301-350=9 units 351-400=11 units <60 or >400 notify diazepam 2 mg Tablet 2 mg PO BID PRN (Reason: Anxiety) 0RF Rx Instructions: for 7 days (starting 08/01/21) ProAir HFA 90 mcg/actuation Hfa Aerosol Inhaler 2 puff inhalation Q6H PRN (Reason: Shortness Of Breath) 0RF ondansetron 4 mg Tablet,Disintegrating 8 mg PO TID PRN (Reason: Nausea And Vomiting) 0RF Vitamin D3 25 mcg (1,000 unit) Tablet 25 mcg PO DAILY@08 0RF Changed metoprolol tartrate 25 mg tablet 12.5 mg PO BID@08,20 Qty: 0 0RF Discontinued meclizine 25 mg Tablet 25 mg PO TID PRN (Reason: Nausea And Vomiting) 0RF Discharge Orders: Discharge Order (Routine); Ordered 08/11/21 Ordered By: Ruddy Berkowitz Other Ambulatory Orders: Prothrombin Time INR (Routine) Timeframe: 3 Days Facility: [facility] - Location: Lab - Main Lab Ordered By: Ruddy Berkowitz Referrals: [facility] [Outside] Pascual Kay MD [Primary Care Provider] - Patient Instructions: Opioid Safety Discharge Attestations Time Spent in Discharge Care*: other Status at Discharge: Cognitive status at discharge: cognitively intact , Behavioral status at discharge: cooperative , Quality Metrics Clinical Quality Measures [ No reported AMI, CVA or VTE this stay] Coding Level of Care Code Acute Chg FW DC note Diagnoses Pleural effusion J90 Encephalopathy due to COVID-19 virus U07.1; G93.49 Anemia, chronic disease D63.8 End stage renal disease N18.6 COVID-19 U07.1 Acute on chronic respiratory failure with hypoxia and hypercapnia J96.21; J96.22 Congestive heart failure I50.9 Status post insertion of drug-eluting stent into left anterior descending (LAD) artery Z95.5 Warfarin-induced coagulopathy D68.32; T45.515A Acute renal failure superimposed on stage 3 chronic kidney disease N17.9; N18.30 Diabetes E11.22; N18.32; Z79.4 Chronic kidney disease stage: stage 3 (moderate) Chronic kidney disease stage 3 subtype: stage 3b (GFR 30-44) Diabetes mellitus complication detail: with chronic kidney disease Diabetes mellitus complication status: with kidney complications Diabetes mellitus termite exterminator insulin use: with termite exterminator use Diabetes mellitus type: type 2 CKD (chronic kidney disease) N18.9 Acute on chronic congestive heart failure I50.23 Heart failure type: systolic Hypoxemia R09.02 Venous stasis I87.8 Dyslipidemia E78.5 Dementia F03.90
[2021-08-11 14:06] LABS: SARS Covid-2 Antigen Positive (Negative)
[2021-08-14 15:43] LABS: Glucose Point of Care 163 mg/dL (70-110)
== END 2021-08-11 14:28 | disposition skilled nursing facility (03) | DRG 177 ==
LOC: ER 18:46 → MEDSURG 20:41
PROVIDERS: Internal Medicine; Internal Medicine Nephrology; Admitting Provider Internal Medicine; Emergency Provider Emergency Medicine; PCP Family Medicine; Visit Provider Internal Medicine
DX: U07.1 COVID-19 (principal); J12.82 Pneumonia due to coronavirus disease 2019; N18.6 End stage renal disease; J96.22 Acute and chronic respiratory failure with hypercapnia; J96.21 Acute and chronic respiratory failure with hypoxia; K85.90 Acute pancreatitis without necrosis or infection, unspecified; G93.41 Metabolic encephalopathy; I50.23 Acute on chronic systolic (congestive) heart failure; I13.2 Hypertensive heart and chronic kidney disease with heart failure and with stage 5 chronic kidney disease, or end stage renal disease; J90 Pleural effusion, not elsewhere classified; D68.8 Other specified coagulation defects; Z68.42 Body mass index [BMI] 45.0-49.9, adult; I25.10 Atherosclerotic heart disease of native coronary artery without angina pectoris; Z95.5 Presence of coronary angioplasty implant and graft; E11.22 Type 2 diabetes mellitus with diabetic chronic kidney disease; Z99.2 Dependence on renal dialysis; E11.51 Type 2 diabetes mellitus with diabetic peripheral angiopathy without gangrene; J44.9 Chronic obstructive pulmonary disease, unspecified; I48.91 Unspecified atrial fibrillation; D63.1 Anemia in chronic kidney disease; E78.5 Hyperlipidemia, unspecified; E66.01 Morbid (severe) obesity due to excess calories; I25.2 Old myocardial infarction; Z79.4 Long term (current) use of insulin; Z79.01 Long term (current) use of anticoagulants; Z79.02 Long term (current) use of antithrombotics/antiplatelets; F03.90 Unspecified dementia, unspecified severity, without behavioral disturbance, psychotic disturbance, mood disturbance, and anxiety; K59.00 Constipation, unspecified; E03.9 Hypothyroidism, unspecified; Z66 Do not resuscitate; T45.515A Adverse effect of anticoagulants, initial encounter; I87.8 Other specified disorders of veins; L89.151 Pressure ulcer of sacral region, stage 1
CPT/HCPCS: 32555; 36415; 36416; 36600; 70450; 71045; 71046; 74176; 80048; 80051; 80053; 80500; 82140; 82310; 82330; 82728; 82803; 82805; 82945; 82962; 83540; 83550; 83615; 83690; 83735; 83880; 83970; 83986; 84100; 84145; 84443; 84484; 85025; 85378; 85610; 86140; 86706; 86803; 87040; 87205; 87340; 87426; 87635; 89050; 93005; 94640; 94660; 96365; 96372; 96375; 99285; J0692; J0696; J1100; J1644; J1815; J2405; J3430; J7030; P9047; Q3014

== ENCOUNTER 2021-08-15 09:53 | Inpatient (IN) | payer MEDICARE, MEDICAID, SELFPAY ==
[2021-08-15] VITALS (17 sets, daily range): BP systolic 88–104; BP diastolic 41–58; PULSE 61–88; RESP 10–21; O2SAT 94–100
--- NOTE | 2021-08-15 09:55 | ECG_ITS ---
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 Measurements Intervals [place] Rate: 68 P: ID: QRS: 135 QRSD: 131 T: 264 QT: 490 QTc: 524 Interpretive Statements ATRIAL FIBRILLATION WITH ABERRANT CONDUCTION OR VENTRICULAR PREMATURE COMPLEXES INTRAVENTRICULAR CONDUCTION DELAY [130+ ms QRS DURATION] POSSIBLE RIGHT VENTRICULAR HYPERTROPHY [SOME/ALL OF: PROMINENT R IN V1, LATE TRANSITION, RAD, JOSE LUIS, SSS] Compared to ECG 08/05/2021 14:54:28 Intraventricular conduction delay now present Myocardial infarct finding no longer present Electronically Signed On 08-15-2021 18:29:06 ROLL WEIGHER by Ramon Garcia M.D. [email or web address]
--- NOTE | 2021-08-15 09:56 | ED_ITS ---
HPI - Altered Mental Status General: Chief Complaint: ER Hold Stated Complaint: RESPONDING TO PAINFUL STIMULI ONLY Time Seen by Provider: 08/15/21 09:54 Limitations: altered mental status History of Present Illness: Ms. Lee is a 75-year-old lady with a very complex past medical history including CAD, diabetes, end-stage renal disease on dialysis, history of chronic hypoxic respiratory failure who presents the emergency department with altered mental status. She apparently was mildly more confused than normal at her dialysis appointment today and very rapidly became hypotensive and unresponsive. Upon arrival the patient is only minimally responsive to loud verbal command and responsive to painful stimuli. History is limited due to such Review of Systems General: Reports: ROS unobtainable due to mental status PFSH ED PFSH: Medical History Acute hypercapnic respiratory failure Acute on chronic respiratory failure with hypoxia and hypercapnia Afib Anemia Anemia, chronic disease Atrial fibrillation with RVR CAD (coronary artery disease) Chronic anticoagulation Eliquis CKD (chronic kidney disease) Congestive heart failure Congestive heart failure Diabetes Dyslipidemia End stage renal disease Hematoma of left flank HTN (hypertension) Morbid obesity Morbid obesity NSTEMI (non-ST elevated myocardial infarction) PVD (peripheral vascular disease) 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) Status post insertion of drug-eluting stent into left anterior descending (LAD) artery Urine retention Venous stasis Surgical History History of ankle surgery History of cataract surgery History of cholecystectomy History of heart artery stent History of umbilical hernia repair S/P hemodialysis catheter insertion (11/22/20) Right internal jugular vein d/c 12/25/20 Family History Other Cancer Diabetes Social History Smoking and tobacco status: never smoked Alcohol intake: never Marital status: / Current occupational status: retired History of recent travel: No Physical Exam Const: EXAM LIMITATIONS: altered mental status GENERAL APPEARANCE: lethargic and ill appearing NUTRITIONAL APPEARANCE: obese ORIENTATION/CONSCIOUSNESS: Yes lethargic HENMT: COMMON NORMALS: normocephalic and atraumatic HEAD & SCALP: normocephalic and atraumatic THROAT: posterior oropharynx normal (Dry mucous membranes) Eye: COMMON NORMALS: conjunctivae normal CONJUNCTIVA: Yes conjunctivae normal SCLERA: sclerae normal Neck/C-Spine: COMMON NORMALS: supple GENERAL: Yes trachea midline Resp: EFFORT & INSPECTION: No tachypneic and No decreased respiratory effort AUSCULTATION: diminished lung sounds Cardio: COMMON NORMALS: regular rate and regular rhythm RATE: regular rate RHYTHM: regular rhythm OTHER: No significant peripheral edema GI: COMMON NORMALS: Soft to palpation PALPATION: Yes Soft to palpation and No Tenderness to palpation present (GI) PERCUSSION: normal to percussion Extremity: GENERAL: Yes normal exam except as noted and No edema Neuro: COMMON NORMALS: moves all extremities SENSORIUM/ORIENTATION: Yes lethargic Psych: COMMON NORMALS: negative for mental status grossly normal Course Vital Signs: Vital signs: Vital Signs Temperature 98.1 F 08/16/21 11:38 Pulse Rate 65 08/16/21 12:00 Respiratory Rate 18 08/16/21 11:55 Blood Pressure 125/81 08/16/21 11:38 Pulse Oximetry 100 08/16/21 11:55 MDM - Altered Mental Status Medical Decision Making - Patient was seen and evaluated by me at bedside - Patient placed on cardiac monitors, IV access obtained - Initial evaluation notable for exam as above, altered mental status with out obvious focal findings. - Labs notable for no leukocytosis, near baseline normocytic anemia, thrombocytopenia also noted both of which are likely related to chronic disease. Metabolic panel without emergent need for dialysis. BNP is elevated though improved from baseline. - ABG with mild hypercapnia. Patient placed on BiPAP. - Imaging notable for negative head CT, chest x-ray without lobar consolidation. - Upon serial reexamination after treatment the patient was perhaps mildly more active. ABG mildly worse however patient, per chart review of previous hospitalization is a DNR and DNI, therefore will be continued on BiPAP without escalation to intubation. - Based on patient history, evaluation, labs, and imaging as interpreted the most likely cause of the patient's condition is unspecified altered mental status perhaps secondary to acute on chronic respiratory failure with hypercapnia - The results of ED evaluation were discussed with the patient including plan for admission due to requirement for level of care not available if discharged to prevent significant worsening/deterioration. - Admitting service was contacted and Dr Ramos with the hospitalist service agreed to admit the patient - Patient was admitted without further deterioration or significant events. Note: Click bubbles or prepopulated griffiths in note writing are used for assistance with data collection and billing and are inherently more limited than narrative and other text portions of this note. Please use narrative for additional clinical history and defer to narrative/free test for any case of contradictory information. If information appears in only free text or click bubble it should be considered present or absent as reported. Please contact note underwriter mortgage loan for clarifications of clinical information or contradictory information. MDM is a brief summary, contradictory or erroneous seeming information should be clarified and full note should be reviewed. Medical Records I reviewed the patient's medical records. 75-year-old lady with complex medical history including end-stage renal disease on dialysis presenting with confusion prior to dialysis and subsequent significant alteration of mental status after. Patient significantly somnolent without evidence of focal neurologic deficit on initial exam. Placed on BiPAP secondary to hypercapnia. Admitted for further management. Lab Data I reviewed the patient's lab results. : 08/16/21 06:05 08/16/21 06:05 Radiology Impressions Chest X-Ray 08/15/21 09:57 IMPRESSION: Stable abnormal chest. Head CT 08/15/21 09:57 IMPRESSION: 1. No evidence of intracranial hemorrhage or mass effect. 2. Mild small vessel changes with mild parenchymal volume loss. 3. Mild paranasal sinusitis. 4. No acute intracranial findings. Laboratory Results WBC 6.9 10^3/uL (4.0-10.0) 08/15/21 10:25 RBC 2.90 10^6/uL (4.1-5.3) L 08/15/21 10:25 Hgb 8.7 g/dL (11.5-15.3) L 08/15/21 10:25 Hct 28.7 % (37.0-47.0) L 08/15/21 10:25 MCV 99.0 fl (81-99) 08/15/21 10:25 MCH 30.0 pg (28.0-34.0) 08/15/21 10:25 MCHC 30.3 g/dL (30.0-36.0) 08/15/21 10:25 RDW 19.2 % (12.1-15.1) H 08/15/21 10:25 Plt Count 106 10^3/cmm (130-400) L 08/15/21 10:25 MPV 13.0 fL (7.4-10.4) H 08/15/21 10:25 Neut % (Auto) 57.3 % 08/15/21 10:25 Lymph % (Auto) 18.1 % 08/15/21 10:25 [place] % (Auto) 11.0 % 08/15/21 10:25 Eos % (Auto) 12.0 % 08/15/21 10:25 Baso % (Auto) 1.0 % 08/15/21 10:25 Neut # (Auto) 3.94 10^3/uL (1.8-7.7) 08/15/21 10:25 Lymph # (Auto) 1.3 10^3/uL (0.8-4.8) 08/15/21 10:25 [place] # (Auto) 0.8 10^3/uL (0.2-0.9) 08/15/21 10:25 Eos # (Auto) 0.8 10^3/uL (0.0-0.8) 08/15/21 10:25 Baso # (Auto) 0.1 10^3/uL (0.0-0.1) 08/15/21 10:25 Nucleated RBC % (auto) 0 % 08/15/21 10:25 Nucleated RBCs # 0.0 /100WBC 08/15/21 10:25 PT 16.50 SECONDS (12.1-14.9) H 08/15/21 10:25 INR 1.29 (0.8-1.2) H 08/15/21 10:25 Specimen Type Arterial 08/15/21 13:42 Sample Site Radial, left 08/15/21 13:42 ABG pH 7.33 (7.35-7.45) L 08/15/21 13:42 ABG pCO2 62.5 mmHg (35-45) H* 08/15/21 13:42 ABG pO2 102.0 mmHg (80.0-100.0) H 08/15/21 13:42 ABG HCO3 32.8 mmol/L (22-26) H 08/15/21 13:42 ABG Base Excess 5.9 mmol/L (-2.0-2.0) H 08/15/21 13:42 Olvin Test Pos 08/15/21 13:42 Hematocrit 25.0 % (37-47) L 08/15/21 13:42 O2 Delivery Device Bipap 08/15/21 13:42 O2 Liters/Min 3.0 % 08/15/21 10:12 FiO2 30.0 % 08/15/21 13:42 Sprinkler Irrigation Equipment Mechanic ID Amh 08/15/21 13:42 Sodium 139 mmol/L (136-145) 08/15/21 10:25 Potassium 3.5 mmol/L (3.5-5.1) 08/15/21 10:25 Chloride 103 mmol/L (98-107) 08/15/21 10:25 Carbon Dioxide 23 mmol/L (22-29) 08/15/21 10:25 Anion Gap 16.5 (5-19) 08/15/21 10:25 BUN 16 mg/dL (8-23) 08/15/21 10:25 Creatinine 2.1 mg/dL (0.5-0.9) H 08/15/21 10:25 GFR Calculation Not Reportable 08/15/21 10:25 Glucose 73 mg/dL (65-115) 08/15/21 10:25 POC Glucose 80 mg/dL (70-110) 08/15/21 10:33 Calculated Osmolality 288 mOsm/kg (285-295) 08/15/21 10:25 Lactic Acid 2.1 mmol/L (0.5-2.2) 08/15/21 10:23 Calcium 7.7 mg/dL (8.5-10.5) L 08/15/21 10:25 Total Bilirubin 0.4 mg/dL (0.15-1.2) 08/15/21 10:25 AST 51 U/L (0-32) H 08/15/21 10:25 ALT 13 U/L (0-33) 08/15/21 10:25 Alkaline Phosphatase 225 IU/L (35-105) H 08/15/21 10:25 Troponin T Baseline 99 ng/L (0-10) H 08/15/21 10:25 Troponin T 120 Minute 77.34 ng/L (0-10) H 08/15/21 12:31 Delta Troponin T -21.66 ABS# (0-10) L 08/15/21 12:31 NT-Pro-B Natriuret Pep 24921 pg/mL (0-450) H 08/15/21 10:25 Total Protein 5.6 g/dL (6.6-8.7) L 08/15/21 10:25 Albumin 2.4 g/dL (3.5-5.2) L 08/15/21 10:25 Globulin 3.2 g/dL (1.3-4.6) 08/15/21 10:25 Procalcitonin 0.14 ng/mL (0-0.5) 08/15/21 10:25 EKG Data EKG 1: I personally reviewed and interpreted this EKG as follows: EKG interpretation date: 08/15/21 EKG interpretation time: 11:44 Interpretation: Twelve-lead EKG shows an irregular rhythm at a rate of 68. No TN interval, QRS duration 131, QTc 508. Right axis deviation. Interpretation: Atrial fibrillation. Interventricular conduction delay. EKG 2: I personally reviewed and interpreted this EKG as follows: EKG interpretation date: 08/15/21 EKG interpretation time: 13:39 Interpretation: Twelve-lead EKG shows an irregular rhythm at a rate of 67. No TN interval. QRS 134, QTc 507 Normal axis Interpretation: Atrial fibrillation. Interventricular conduction delay Critical Care Time Critical Care Time: Critical Care Time: Yes Total Critical Care Time: 35 Attestation: Due to a high probability of clinically significant, possibly life threatening deterioration, the patient required my highest level of attention and preparedness to intervene emergently and I personally spent this critical care time directly and personally managing the patient. This critical care time incl uded obtaining a history; examining the patient; pulse oximetry; ordering and review of laboratory and imaging studies; arranging urgent treatment with development of a management plan; evaluation of patient's response to treatment; frequent reassessment; and, discussions with other providers as applicable. It was exclusive of separately billable procedures. Discharge Plan Discharge Patient Disposition: Placed in Observation Admit Provider: Delgado Ramos Clinical Impression: Altered mental status, Acute and chronic respiratory failure with hypercapnia Coding Level of Care Code ED Advanced Practice Psychiatric Nurse for Chg Fwd Exam Comprehensive
--- NOTE | 2021-08-15 09:57 | XR_ITS ---
WS: [id number] XR chest 1V portable [id number] REASON FOR EXAM: ams FINDINGS: Right transjugular dialysis catheter. The terminal portion of the catheter is at the junction of the right innominate vein and superior vena cava. This is unchanged compared to 08/10/2021. Cardiomegaly. Diffuse bilateral reticular and groundglass lung opacities, predominating in the right lung. These fi ndings are relatively unchanged compared to 08/10/2021. No new findings. XR/XR chest 1V portable [id number] IMPRESSION: Stable abnormal chest.
--- NOTE | 2021-08-15 09:57 | CT_ITS ---
WS: [id number] CT HEAD TECHNIQUE: Noncontrast CT of the head obtained from the skullbase to the vertex. CLINICAL INFORMATION: ams COMPARISON: August 08, 2021 DLP: 2110.[address] scans at [facility] use at least one of these dose optimization techniques: automated e xposure control; mA and/or kV adjustment per patient size (includes targeted exams where dose is matc hed to clinical indication); or iterative reconstruction. FINDINGS: No evidence of intracranial hemorrhage or mass effect. Ventricular system and basal cisterns are gutierrez nt. Mild small vessel changes with mild parenchymal volume loss. No extra-axial fluid collections. No evidence of mass or mass effect. Normal rain-white differentiation. Small amount of fluid right maxillary sinus and sphenoid sinus compatible with sinusitis. Mild mucosa l thickening in the paranasal sinuses. Mastoid air cells well aerated. CT/CT head wo con* [id number] IMPRESSION: 1. No evidence of intracranial hemorrhage or mass effect. 2. Mild small vessel changes with mild parenchymal volume loss. 3. Mild paranasal sinusitis. 4. No acute intracranial findings.
[2021-08-15 10:24] LABS: ABG PCO2 59.1 mmHg (35-45); ABG PH Result 7.34 (7.35-7.45); Arterial Blood Gas Hematocrit 25.8 % (37-47); Base Excess ABG 5.2 mmol/L (-2.0-2.0); Blood Gas Allen Test Pos; Blood Gas Operator Identificat AMH; Blood Gas Sample Site Radial, right; Blood Gas Sample Type Arterial; HCO3 ABG 31.9 mmol/L (22-26); Oxygen Device NC
[2021-08-15 10:33] LABS: Basophils # 0.1 10^3/uL (0.0-0.1); Eosinophils # 0.8 10^3/uL (0.0-0.8); Hematocrit 28.7 % (37.0-47.0); Hemoglobin 8.7 g/dL (11.5-15.3); Lymphocytes # 1.3 10^3/uL (0.8-4.8); Lymphocytes % 18.1 %; Mean Corpuscular HGB Conc 30.3 g/dL (30.0-36.0); Monocytes # 0.8 10^3/uL (0.2-0.9); Neutrophils # 3.94 10^3/uL (1.8-7.7); Neutrophils % 57.3 %; Nucleated Red Blood Cells % 0 %; Platelet Count 106 10^3/cmm (130-400); Red Cell Distribution Width 19.2 % (12.1-15.1); White Blood Count 6.9 10^3/uL (4.0-10.0)
[2021-08-15 10:35] LABS: Glucose Point of Care 80 mg/dL (70-110)
[2021-08-15] MEDS: sodium chloride 0.9% 500 ML 999 ML IV (10:52)
[2021-08-15 10:53] LABS: INR 1.29 (0.8-1.2)
[2021-08-15 11:08] LABS: Troponin(5th) Baseline 99 ng/L (0-10)
[2021-08-15 11:16] LABS: NT Pro B Type Natriuretic Pept 13993 pg/mL (0-450); Procalcitonin 0.14 ng/mL (0-0.5)
[2021-08-15 11:29] LABS: Alanine Aminotransferase 13 U/L (0-33); Albumin Level 2.4 g/dL (3.5-5.2); Alkaline Phosphatase 225 IU/L (35-105); Aspartate Amino Transferase 51 U/L (0-32); Blood Urea Nitrogen 16 mg/dL (8-23); Calcium 7.7 mg/dL (8.5-10.5); Carbon Dioxide 23 mmol/L (22-29); Chloride 103 mmol/L (98-107); Globulin 3.2 g/dL (1.3-4.6); Glucose 73 mg/dL (65-115); Osmolality Calculated 288 mOsm/kg (285-295); Sodium 139 mmol/L (136-145); Total Bilirubin 0.4 mg/dL (0.15-1.2); Total Protein 5.6 g/dL (6.6-8.7)
[2021-08-15 11:30] LABS: Anion Gap 16.5 (5-19); Potassium 3.5 mmol/L (3.5-5.1)
[2021-08-15] MEDS: naloxone 0.4 mg/ml SDV 0.1 MG IVP (11:40)
[2021-08-15] MEDS: ondansetron 2 mg/ML SDV 2 mL 4 MG IVP (11:45)
[2021-08-15 13:13] LABS: Troponin 5 2HR 77.34 ng/L (0-10)
[2021-08-15 13:53] LABS: ABG PH Result 7.33 (7.35-7.45); Base Excess ABG 5.9 mmol/L (-2.0-2.0); Blood Gas Allen Test Pos; Blood Gas Operator Identificat AMH; Blood Gas Sample Site Radial, left; Blood Gas Sample Type Arterial; HCO3 ABG 32.8 mmol/L (22-26); Oxygen Device BIPAP
[2021-08-15 13:54] LABS: ABG PCO2 62.5 mmHg (35-45)
[2021-08-15] MEDS: dextrose 50% syringe 50 mL IVP (14:02)
--- NOTE | 2021-08-15 15:35 | PC.NURSE ---
Applied soft wrist restraints after speaking with Dr. Renee to prevent patient interference with care. Pt continually removed monitoring equipment prior to restraint application. Pt continues to have altered mental status and not responding to verbal stimulation.
--- NOTE | 2021-08-15 15:55 | ECG_ITS ---
[facility] Test Date: 2021-08-15 Pat Name: Carole Lee Department: Room: Gender: Female Machine Marker: : 1945 Requested By: Grayson Renee Order Number: [id number] Danielle MD: Ramon Garcia M.D. Measurements Intervals [place] Rate: 67 P: UT: QRS: 109 QRSD: 134 T: 261 QT: 491 QTc: 521 Interpretive Statements ATRIAL FIBRILLATION RIGHT AXIS DEVIATION [QRS AXIS > 100] INTRAVENTRICULAR CONDUCTION DELAY [130+ ms QRS DURATION] Compared to ECG 08/15/2021 11:25:02 Right-axis deviation now present Ventricular premature complex(es) no longer present Aberrant conduction of supraventricular beat(s) no longer present Electronically Signed On 08-15-2021 18:33:58 [employer] by Ramon Garcia M.D. [id number]
--- NOTE | 2021-08-15 16:50 | P.HP_ITS ---
Providers/Chief Complaint Primary Care Provider: Pascual Kay MD Chief Complaint: RESPONDING TO PAINFUL STIMULI ONLY History of Present Illness Carole Lee is a 75 year old female who is had multiple hospitalizations in the past few months, recent hospitalizations for bilateral pleural effusions, chronic hypercapnic respiratory failure, history of systolic CHF EF of 20 to 25%, discharged with a LifeVest, history of COVID-19 pneumonia, hypertension, hyperlipidemia, history of encephalopathy, end-stage renal disease on dialysis, insulin-dependent type 2 diabetes mellitus, hypothyroidism, atrial fibrillation on Coumadin, goal INR 1.5-2 due to risk of bleeding,, who presents to [facility] due to nonresponsiveness. Currently patient is alert to sternal rub, she opens her eyes, she can nod her head, but falls back asleep, on BiPAP, does not follow commands, GCS is 9, the history that I got from ER physicians is she was at dialysis, she was more confused than her normal self, after her dialysis she became hypotensive, and less responsive so she was brought to [facility] ER for evaluation. Currently her blood pressure 110/49, pulse 69, respiratory 16, she saturating 99% on 30% FiO2. ABG shows hypercarbic respiratory failure, PCO2 62.5, pH 7.33, PO2 high at 102 on 30% FiO2. No focal signs of infection, no pneumonia on chest x-ray, she does not urinate, she was positive for Covid August 11, 2021, treated. Review of Systems General: Reports: ROS unobtainable due to mental status Medications/Allergies Home Medications Medication Instructions Recorded Confirmed Last Taken Type clopidogrel 75 mg tablet 75 mg PO DAILY@79911/29/20 08/15/21 08/03/21 History atorvastatin 80 mg tablet 80 mg PO BEDTIME@12/07/20 08/15/21 08/02/21 History calcitriol 0.25 mcg capsule 0.25 mcg PO DAILY@79901/16/21 08/15/21 08/03/21 History citalopram 10 mg tablet 10 mg PO DAILY@79902/28/21 08/15/21 08/03/21 History docusate sodium 100 mg capsule 100 mg PO DAILY PRN 02/28/21 08/15/21 07/04/21 History insulin aspart U-100 100 unit/mL See Rx Instructions .ROUTE .COMPLEX 12/01/21 02/02/22 01/13/22 07:00 History (3 mL) subcutaneous pen (Novolog 3 units Flexpen U-100 Insulin aspart) phenytoin sodium extended 100 mg 200 mg PO BID@08,20 06/13/21 08/15/21 08/03/21 History capsule bisacodyl 10 mg rectal suppository 10 mg NM DAILY PRN 07/04/21 08/15/21 Unknown History folic acid 1 mg tablet 2 mg PO DAILY@08 07/04/21 08/15/21 08/03/21 History levothyroxine 200 mcg tablet 200 mcg PO DAILY@07/04/21 08/15/21 08/03/21 History levothyroxine 25 mcg tablet 25 mcg PO DAILY@07/04/21 08/15/21 08/03/21 History magnesium hydroxide 400 mg/5 mL 5 ml PO QID PRN 07/04/21 08/15/21 Unknown History oral suspension (Milk of Magnesia) pantoprazole 40 mg tablet,delayed 40 mg PO DAILY@08 07/04/21 08/15/21 08/03/21 H istory release (Protonix) spironolactone 25 mg tablet 6.25 mg PO DAILY@08 #0 tab 07/22/21 08/15/21 08/03/21 Rx polyethylene glycol 3350 17 17 g PO DAILY PRN 07/26/21 08/15/21 Unknown History gram/dose oral powder (Miralax) sennosides 8.6 mg-docusate sodium 2 tab PO BID PRN 07/26/21 08/15/21 Unknown History 50 mg tablet (Senna-S) sodium phosphates 19 gram-7 118 ml NM DAILY PRN 07/26/21 08/15/21 Unknown History gram/118 mL enema (Enema Disposable) warfarin 1 mg tablet 1.5 mg PO DAILY@14 07/26/21 08/15/21 08/02/21 History albuterol sulfate 90 mcg/actuation 2 puff INHALATION Q6H PRN 08/03/21 08/15/21 Unknown History aerosol inhaler (ProAir HFA) cholecalciferol (vitamin D3) 25 25 mcg PO DAILY@08 08/03/21 08/15/21 08/03/21 History mcg (1,000 unit) tablet (Vitamin D3) ondansetron 4 mg disintegrating 8 mg PO BID PRN 08/03/21 08/15/21 08/03/21 History tablet levofloxacin 750 mg tablet 750 mg PO DAILY 5 Days #5 tab 08/11/21 08/15/21 Unknown Rx metoprolol tartrate 25 mg tablet 12.5 mg PO BID@08,20 #0 tab 08/11/21 08/15/21 08/03/21 Rx acetaminophen 325 mg tablet 650 mg PO Q6H PRN 08/15/21 08/15/21 Unknown History (Tylenol) Allergies Allergy/AdvReac Type Severity Reaction Status Date / Time gentamicin Allergy Unknown Verified 08/03/21 14:13 hydromorphone [From Dilaudid] Allergy Unknown Verified 08/03/21 14:13 PFSH Acute PFSH: Medical History Acute hypercapnic respiratory failure Acute on chronic respiratory failure with hypoxia and hypercapnia Afib Anemia Anemia, chronic disease Atrial fibrillation with RVR CAD (coronary artery disease) Chronic anticoagulation Eliquis CKD (chronic kidney disease) Congestive heart failure Congestive heart failure Diabetes Dyslipidemia End stage renal disease Hematoma of left flank HTN (hypertension) Morbid obesity Morbid obesity NSTEMI (non-ST elevated myocardial infarction) PVD (peripheral vascular disease) 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) Status post insertion of drug-eluting stent into left anterior descending (LAD) artery Urine retention Venous stasis Surgical History History of ankle surgery History of cataract surgery History of cholecystectomy History of heart artery stent History of umbilical hernia repair S/P hemodialysis catheter insertion (11/22/20) Right internal jugular vein d/c 12/25/20 Family History Other Cancer Diabetes Social History Smoking and tobacco status: never smoked Alcohol intake: never Marital status: / Current occupational status: retired History of recent travel: No Vitals/I&O/Wt Last Vital Signs Pulse 69 08/15/21 16:00 Resp 16 08/15/21 16:00 BP 101/49 08/15/21 16:00 Pulse Ox 99 08/15/21 15:35 08/15/21 08/15/21 08/15/21 06:59 14:59 22:59 Intake Total 500 / 500 Balance 500 / 500 Physical Exam Narrative: EXAM NARRATIVE: Opens her eyes to sternal rub, localizes pain, tries to mouth a couple words Const: COMMON NORMALS: no acute distress HENMT: COMMON NORMALS: normocephalic Eye: COMMON NORMALS: Equal, round and reactive pupils present Lymph: LYMPHATIC: no lymphadenopathy noted Chest: COMMONS NORMALS: normal inspection of the chest Resp: COMMON NORMALS: normal respiratory effort, No retractions and clear to auscultation bilaterally Cardio: COMMON NORMALS: regular rate, regular rhythm, S1 normal heart sound present and S2 normal heart sound present GI: COMMON NORMALS: Normal to inspection, nondistended, normoactive bowel sounds present, Soft to palpation and non-tender OTHER: Abdominal wall hernia Extremity: NARRATIVE EXTREMITY EXAM: 1+ pitting edema bilateral extremities Neuro: ADRIANO COMA SCALE: document GCS findings Adriano coma scale eye opening: To sound [place] coma scale verbal response: Confused Adriano coma scale motor response: Localising [place] coma scale total score: 12 Data : 08/15/21 10:25 08/15/21 10:25 A&P Assessment and plan (1) Altered mental status: Status: Acute (2) Acute and chronic respiratory failure with hypercapnia: Status: Acute (3) COVID-19: Status: Acute (4) Warfarin-induced coagulopathy: Status: Acute (5) Acute renal failure superimposed on stage 3 chronic kidney disease: Status: Acute (6) Diabetes: Status: Acute Qualifiers: Chronic kidney disease stage: stage 3 (moderate) Chronic kidney disease stage 3 subtype: stage 3b (GFR 30-44) Diabetes mellitus complication detail: with chronic kidney disease Diabetes mellitus complication status: with kidney complications Diabetes mellitus middle or intermediate school principal insulin use: with middle or intermediate school principal use Diabetes mellitus type: type 2 Qualified Code(s): E11.22 - Type 2 diabetes mellitus with diabetic chronic kidney disease; N18.32 - Chronic kidney disease, stage 3b; Z79.4 - terminal gauger (current) use of insulin (7) Acute on chronic congestive heart failure: Status: Acute Qualifiers: Heart failure type: systolic Qualified Code(s): I50.23 - Acute on chronic systolic (congestive) heart failure (8) Dyslipidemia: Status: Chronic Plan Acute hypercarbic respiratory failure -Secondary to COPD Plan -We will admit to general medical floors -Continue BiPAP -Budesonide, ipratropium -Rocephin and azithromycin for possible pneumonia -Does not look fluid overloaded, BNP is elevated, does have 1+ pitting edema, just finished dialysis session, blood pressure is 101/49, will hold off on dialysis for today consider tomorrow -Coumadin for DVT prophylaxis -Spoke to patient's son, patient is DNR/DNI Systolic and diastolic CHF, does not urinate, hold off on dialysis for today Atrial fibrillation, continue Coumadin, goal INR 1.5-2 due to risk of bleeding Insulin-dependent diabetes mellitus, continue sliding scale Hypertension Hyperlipidemia History of COVID-19, no focal infiltrates on chest x-ray, no significant leukocytosis, await pro-Jason, CRP, received treatment for COVID-19 during last hospitalization, continue to monitor, continue isolation Chronic kidney disease, dialysis dependent, consult nephrology Attestations Medical Necessity Statement*: Patient requires hospitalization for hypercarbic respiratory failure Coding Level of Care Code Acute Attache for g Fwd History Comprehensive Exam Comprehensive Diagnoses Altered mental status R41.82 Acute and chronic respiratory failure with hypercapnia J96.22 COVID-19 U07.1 Warfarin-induced coagulopathy D68.32; T45.515A Acute renal failure superimposed on stage 3 chronic kidney disease N17.9; N18.30 Diabetes E11.22; N18.32; Z79.4 Chronic kidney disease stage: stage 3 (moderate) Chronic kidney disease stage 3 subtype: stage 3b (GFR 30-44) Diabetes mellitus complication detail: with chronic kidney disease Diabetes mellitus complication status: with kidney complications Diabetes mellitus middle or intermediate school principal insulin use: with mcc use Diabetes mellitus type: type 2 Acute on chronic congestive heart failure I50.23 Heart failure type: systolic Dyslipidemia E78.5 Time Spent (min) 55
--- NOTE | 2021-08-15 17:12 | P.CONIM_ITS ---
Providers/Reason For Consult Consulting Physician/Specialty*: linda chambers md / telenephrology Reason for Consult*: ESRD care Requesting Physician: Dr Amy Ramos Attending Physician: Dr. Amy Ramos Primary Care Provider: Pascual Kay MD History of Present Illness History of Present Illness Carole Lee is a 75 year old female recent admissions x 2 in Jul 2021. Was d/c on 08/11/21. Pt was sent to [facility] from dialysis this am w/ poor MS and became hypotensive at dialysis this am. The Pt was found to have a resp hypercapneic acidosis. PMHX includes ESRD, COVID-19, hypercapneic resp acidosis, chrnic systolic CHF- EF 20-25%, iddm, encephalopathy, a fib, hypothyroidism. Review of Systems Narrative: confused, lethargic- unable to obtain Medications/Allergies Home Medications Medication Instructions Recorded Confirmed Last Taken Type clopidogrel 75 mg tablet 75 mg PO DAILY@0811/29/20 08/15/21 08/03/21 History atorvastatin 80 mg tablet 80 mg PO BEDTIME@12/07/20 08/15/21 08/02/21 History calcitriol 0.25 mcg capsule 0.25 mcg PO DAILY@0801/16/21 08/15/21 08/03/21 History citalopram 10 mg tablet 10 mg PO DAILY@0802/28/21 08/15/21 08/03/21 History docusate sodium 100 mg capsule 100 mg PO DAILY PRN 02/28/21 08/15/21 07/04/21 History insulin aspart U-100 100 unit/mL See Rx Instructions .ROUTE .COMPLEX 06/13/21 08/15/21 07/26/21 07:00 History (3 mL) subcutaneous pen (Novolog 3 units Flexpen U-100 Insulin aspart) phenytoin sodium extended 100 mg 200 mg PO BID@06/13/21 08/15/21 08/03/21 History capsule bisacodyl 10 mg rectal suppository 10 mg MI DAILY PRN 07/04/21 08/15/21 Unknown History folic acid 1 mg tablet 2 mg PO DAILY@08 07/04/21 08/15/21 08/03/21 History levothyroxine 200 mcg tablet 200 mcg PO DAILY@06 07/04/21 08/15/21 08/03/21 History levothyroxine 25 mcg tablet 25 mcg PO DAILY@06 07/04/21 08/15/21 08/03/21 History magnesium hydroxide 400 mg/5 mL 5 ml PO QID PRN 07/04/21 08/15/21 Unknown History oral suspension (Milk of Magnesia) pantoprazole 40 mg tablet,delayed 40 mg PO DAILY@08 07/04/21 08/15/21 08/03/21 History release (Protonix) spironolactone 25 mg tablet 6.25 mg PO DAILY@08 #0 tab 07/22/21 08/15/21 08/03/21 Rx polyethylene glycol 3350 17 17 g PO DAILY PRN 07/26/21 08/15/21 Unknown History gram/dose oral powder (Miralax) sennosides 8.6 mg-docusate sodium 2 tab PO BID PRN 07/26/21 08/15/21 Unknown History 50 mg tablet (Senna-S) sodium phosphates 19 gram-7 118 ml MI DAILY PRN 07/26/21 08/15/21 Unknown History gram/118 mL enema (Enema Disposable) warfarin 1 mg tablet 1.5 mg PO DAILY@14 07/26/21 08/15/21 08/02/21 History albuterol sulfate 90 mcg/actuation 2 puff INHALATION Q6H PRN 08/03/21 08/15/21 Unknown History aerosol inhaler (ProAir HFA) cholecalciferol (vitamin D3) 25 25 mcg PO DAILY@08 08/03/21 08/15/21 08/03/21 History mcg (1,000 unit) tablet (Vitamin D3) ondansetron 4 mg disintegrating 8 mg PO BID PRN 08/03/21 08/15/21 08/03/21 History tablet levofloxacin 750 mg tablet 750 mg PO DAILY 5 Days #5 tab 08/11/21 08/15/21 Unknown Rx metoprolol tartrate 25 mg tablet 12.5 mg PO BID@,20 #0 tab 08/11/21 08/15/21 08/03/21 Rx acetaminophen 325 mg tablet 650 mg PO Q6H PRN 08/15/21 08/15/21 Unknown History (Tylenol) Allergies Allergy/AdvReac Type Severity Reaction Status Date / Time gentamicin Allergy Unknown Verified 08/03/21 14:13 hydromorphone [From Dilaudid] Allergy Unknown Verified 08/03/21 14:13 Current Medications Generic Name Dose Route Start Last Admin Trade Name Susan PRN Reason Stop Dose Admin Naloxone HCl 0.1 mg 08/15/21 09:54 08/15/21 11:40 Naloxone 0.4 Mg/Ml Sdv IVP 0.1 mg Q2M PRN Administration RESPIRATORY RATE < 8/MIN PFSH Acute PFSH: Medical History Acute hypercapnic respiratory failure Acute on chronic respiratory failure with hypoxia and hypercapnia Afib Anemia Anemia, chronic disease Atrial fibrillation with RVR CAD (coronary artery disease) Chronic anticoagulation Eliquis CKD (chronic kidney disease) Congestive heart failure Congestive heart failure Diabetes Dyslipidemia End stage renal disease Hematoma of left flank HTN (hypertension) Morbid obesity Morbid obesity NSTEMI (non-ST elevated myocardial infarction) PVD (peripheral vascular disease) 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) Status post insertion of drug-eluting stent into left anterior descending (LAD) artery Urine retention Venous stasis Surgical History History of ankle surgery History of cataract surgery History of cholecystectomy History of heart artery stent History of umbilical hernia repair S/P hemodialysis catheter insertion (11/22/20) Right internal jugular vein d/c 12/25/20 Family History Other Cancer Diabetes Social History Smoking and tobacco status: never smoked Alcohol intake: never Marital status: / Current occupational status: retired History of recent travel: No Vitals/I&O/Wt Last Vital Signs Pulse 69 08/15/21 16:00 Resp 16 08/15/21 16:00 BP 101/49 08/15/21 16:00 Pulse Ox 99 08/15/21 15:35 08/15/21 08/15/21 08/15/21 06:59 14:59 22:59 Intake Total 500 / 500 Balance 500 / 500 Physical Exam Narrative: EXAM NARRATIVE: confused on bipap- BP low obese heent- nc/at, eomi, anicteric neck supple, dialysis catheter lungs clear per oracle adf consultant - reg, +ALEX abd soft, nt, ascites ext edema Data : 08/15/21 10:25 08/15/21 10:25 A&P Assessment and plan (1) ESRD (end stage renal disease) on dialysis: 75 7r old female 1. AMS- on previous hospitalizzation- pts MS waxed and waned- RX hypercapneia- 2/ ESRD -k 3.5, bicarb 23, bun 16- BP is low and dropped on HD today- attempt to hold dialysis till am. -if resp status worsens, then can uise pressors and dialyze 3. recent COVID-19 s/p decadron, remdesivir, barcitinib -abx now per medicine -goel culture 4. chronic systolic CHF - EF 20-25%- known pleural effusions- appear improved on cxr BNP 77828- improved for her. in jul bnp was 14012,, Jun 2021- [place] [address] 5. hypercapneic resp acidosis- agree w/ bipap- pH okay at 7.33 6.DM 7. hypothyroidism- check tsh 8. a fib- on a/c. rate controlled 9. anemia-check iron studies. recent covid seen and examined w/ rN -telehealth visit time spent 50 + minutes discussed w/ rN and Dr. Ramos Status: Acute Plan as above Consult Attestations Medical Necessity Statement: AMS, ESRD, hypercapneic resp acidosis Time Spent in Patient Care: Greater than 35 minutes (>than 50% of time spent in counselling and/or direct pt care on unit) . Coding Level of Care Code Acute Search Engine Marketing Strategist for Chg Fwd Diagnoses ESRD (end stage renal disease) on dialysis N18.6; Z99.2
[2021-08-15 17:27] LABS: Troponin 5 6HR 98.46 ng/L (0-10)
[2021-08-15 17:28] LABS: Troponin 5 6HR Delta -0.54 ng/L (0-12)
[2021-08-15 17:29] LABS: Lactic Sepsis W/Reflex 2.1 mmol/L (0.5-2.2)
[2021-08-15 18:42] LABS: Reflex Lactate Order REFLEX LACTIC ORDERD
[2021-08-15 19:07] LABS: Adenovirus Not Detected (NOT DETECT); Chlamydia Pneumoniae Not Detected (NOT DETECT); Coronavirus 229E,HKU1,NL63,OC4 Not Detected (NOT DETECT); Human Metapneumovirus Not Detected (NOT DETECT); Human Rhinovirus/Enterovirus Not Detected (NOT DETECT); Influenza A Not Detected (NOT DETECT); Influenza A H1 Not Detected (NOT DETECT); Influenza A H1-2009 Not Detected (NOT DETECT); Influenza A H3 Not Detected (NOT DETECT); Influenza B Not Detected (NOT DETECT); Mycoplasma Pneumoniae Not Detected (NOT DETECT); Parainfluenza Virus Type 1 Not Detected (NOT DETECT); Parainfluenza Virus Type 2 Not Detected (NOT DETECT); Parainfluenza Virus Type 3 Not Detected (NOT DETECT); Parainfluenza Virus Type 4 Not Detected (NOT DETECT); Respiratory Syncytial Virus A Not Detected (NOT DETECT); Respiratory Syncytial Virus B Not Detected (NOT DETECT); SARS-COV-2 Detected (NOT DETECT)
[2021-08-15 19:34] LABS: Influenza A Not Detected (NOT DETECT); Influenza A H1 Not Detected (NOT DETECT); Influenza A H1-2009 Not Detected (NOT DETECT); Influenza A H3 Not Detected (NOT DETECT); Influenza B Not Detected (NOT DETECT); Results from GEN
[2021-08-15 20:40] LABS: Lactic Acid level (Lactate) 1.7 mmol/L (0.5-2.2)
[2021-08-15 21:25] LABS: Hepatitis B Surface AB 5.5 (11.5-1000); Hepatitis B Surface Antigen Non-Reactive (Nonreactive)
[2021-08-15 21:43] LABS: Thyroid Stimulating Hormone 5.72 uIU/mL (0.27-4.20)
[2021-08-15 21:47] LABS: Glucose Point of Care 127 mg/dL (70-110)
[2021-08-15] MEDS: famotidine 20 mg/2 mL INJ IVP (21:48)
[2021-08-15] MEDS: cefTRIAXone 1,000 MG in sodium chloride 0.9% (plus) 50 ML 100 MG IV (21:49)
[2021-08-15] MEDS: azithromycin 500 MG in sodium chloride 0.9% 250 ML 250 MG IV (22:42)
[2021-08-16] VITALS (12 sets, daily range): BP systolic 95–125; BP diastolic 60–81; PULSE 56–93; RESP 16–24; TEMP 36.6–36.9; O2SAT 92–100
[2021-08-16 05:56] LABS: ABG PH Result 7.33 (7.35-7.45); Arterial Blood Gas Hematocrit 23.6 % (37-47); Base Excess ABG 5.1 mmol/L (-2.0-2.0); Blood Gas Allen Test Pos; Blood Gas Sample Site Radial, left; Blood Gas Sample Type Arterial; HCO3 ABG 31.9 mmol/L (22-26); Oxygen Device NC
[2021-08-16 06:19] LABS: Glucose Point of Care 127 mg/dL (70-110)
[2021-08-16 06:19] LABS: Basophils # 0.1 10^3/uL (0.0-0.1); Basophils % 0.9 %; Eosinophils # 0.5 10^3/uL (0.0-0.8); Eosinophils % 7.8 %; Hematocrit 26.2 % (37.0-47.0); Hemoglobin 7.7 g/dL (11.5-15.3); Lymphocytes # 1.1 10^3/uL (0.8-4.8); Lymphocytes % 16.8 %; Mean Corpuscular HGB Conc 29.4 g/dL (30.0-36.0); Mean Corpuscular Hemoglobin 29.3 pg (28.0-34.0); Mean Corpuscular Volume 99.6 fl (81-99); Monocytes # 0.7 10^3/uL (0.2-0.9); Monocytes % 10.3 %; Neutrophils # 4.29 10^3/uL (1.8-7.7); Neutrophils % 63.3 %; Nucleated Red Blood Cells % 0 %; Platelet Count 93 10^3/cmm (130-400); Red Blood Count 2.63 10^6/uL (4.1-5.3); Red Cell Distribution Width 19.2 % (12.1-15.1); White Blood Count 6.8 10^3/uL (4.0-10.0)
[2021-08-16 06:30] LABS: Mean Platelet Volume 13.3 fL (7.4-10.4)
[2021-08-16 06:31] LABS: INR 1.43 (0.8-1.2)
[2021-08-16 06:51] LABS: Calcium 7.6 mg/dL (8.5-10.5)
[2021-08-16 06:53] LABS: 25 Hydroxy Vitamin D 31 ng/mL (30-100); Procalcitonin 0.13 ng/mL (0-0.5); Thyroid Stimulating Hormone 4.84 uIU/mL (0.27-4.20)
[2021-08-16 06:58] LABS: Parathyroid Hormone 154.4 pg/mL (15-65)
[2021-08-16 07:05] LABS: Alanine Aminotransferase 16 U/L (0-33); Albumin Level 2.5 g/dL (3.5-5.2); Alkaline Phosphatase 213 IU/L (35-105); Anion Gap 15.9 (5-19); Aspartate Amino Transferase 51 U/L (0-32); Blood Urea Nitrogen 17 mg/dL (8-23); Calcium 7.7 mg/dL (8.5-10.5); Carbon Dioxide 25 mmol/L (22-29); Chloride 103 mmol/L (98-107); Globulin 3.1 g/dL (1.3-4.6); Glucose 110 mg/dL (65-115); Iron 75 ug/dL (37-145); Magnesium 1.7 mg/dL (1.7-2.3); Osmolality Calculated 292 mOsm/kg (285-295); Percent Saturation 55.9 % (20-50); Phosphorus 1.7 mg/dL (2.5-4.5); Potassium 3.9 mmol/L (3.5-5.1); Sodium 140 mmol/L (136-145); Total Bilirubin 0.4 mg/dL (0.15-1.2); Total Iron Binding Capacity 134 mcg/dl; Total Protein 5.6 g/dL (6.6-8.7); Unsaturated Iron Binding 59 ug/dL (112-347)
[2021-08-16 07:16] LABS: ABG PCO2 60.5 mmHg (35-45)
[2021-08-16 07:17] LABS: Ferritin 1520 ng/mL (15-150)
--- NOTE | 2021-08-16 09:12 | P.PN_ITS ---
Subjective Subjective: Interval history: lethargic in bed, responds to pain and voice. not answering questions appropriately Medications: Reviewed: Yes Medication Review Details: Current Medications Acetaminophen (Acetaminophen 325 Mg Tablet) 650 mg PO Q6H PRN PRN Reason: Mild/Mod Pain Or Temp >/= 101 Albuterol/Ipratropium (Ipratropium-Albuterol 3 Ml Neb) 3 ml INHALATION QID.RESPIRATORY ARMINDA Atorvastatin Calcium (Atorvastatin 40 Mg Tablet) 80 mg PO BEDTIME@20 ARMINDA Last Admin: 08/15/21 22:47 Dose: Not Given Documented by: Budesonide (Budesonide 0.5 Mg/2 Ml Neb) 0.5 mg INHALATION BID.RESPIRATORY ARMINDA Calcitriol (Calcitriol 0.25 Mcg Capsule) 0.25 mcg PO DAILY@0800 ARMINDA Citalopram Hydrobromide (Citalopram 20 Mg Tablet) 10 mg PO DAILY@0800 ARMINDA Clopidogrel Bisulfate (Clopidogrel 75 Mg Tablet) 75 mg PO DAILY@0800 ARMINDA Dextrose (Dextrose 50% Syringe 50 Ml) 25 ml IVP ONCE PRN; Protocol PRN Reason: hypoglycemia protocol Dextrose (Dextrose 50% Syringe 50 Ml) 50 ml IVP PRN PRN; Protocol PRN Reason: hypoglycemia protocol Famotidine (Famotidine 20 Mg/2 Ml Inj) 20 mg IVP Q12H ARMINDA Last Admin: 08/15/21 21:48 Dose: 20 mg Documented by: Folic Acid (Folic Acid 1 Mg Tablet) 2 mg PO DAILY@08 ARMINDA Glucagon (Glucagon 1 Mg/Ml Inj 1 Ml) 1 mg IM ONCE PRN; Protocol PRN Reason: Adult Acute Hypoglycemia Prot. Albumin Human (Albumin) 12.5 gm in 50 mls @ 60 mls/hr IV PRN PRN PRN Reason: Hypotension and/or symptomatic Ceftriaxone Sodium 1,000 mg/ (Sodium Chloride) 50 mls @ 100 mls/hr IV Q24H ARMINDA; Protocol Last Infusion: 08/15/21 22:19 Dose: Infused Documented by: Azithromycin 500 mg/ Sodium (Chloride) 250 mls @ 250 mls/hr IV Q24H ARMINDA; Protocol Last Infusion: 08/15/21 23:42 Dose: Infused Documented by: Dextrose (D5w) 500 mls @ 100 mls/hr IV ONCE PRN; Protocol PRN Reason: Adult Acute Hypoglycemia Prot Insulin Human Lispro (Insulin Lispro 100 Unit/1 Ml) 0 unit SUBCUT TIDWM [facility]; Protocol Last Admin: 08/16/21 07:20 Dose: Not Given Documented by: Levothyroxine Sodium (Levothyroxine 25 Mcg Tablet) 25 mcg PO DAILY@06 [facility] Last Admin: 08/16/21 06:28 Dose: Not Given Documented by: Levothyroxine Sodium (Levothyroxine 200 Mcg Tablet) 200 mcg PO DAILY@06 [facility] Last Admin: 08/16/21 06:28 Dose: Not Given Documented by: Metoprolol Tartrate (Metoprolol Tartrate 25 Mg Tablet) 12.5 mg PO BID@ [facility] Last Admin: 08/15/21 22:47 Dose: Not Given Documented by: Midodrine (Midodrine 5 Mg Tablet) 10 mg PO TID [facility] Naloxone HCl (Naloxone 0.4 Mg/Ml Sdv) 0.1 mg IVP Q2M PRN PRN Reason: RESPIRATORY RATE < 8/MIN Last Admin: 08/15/21 11:40 Dose: 0.1 mg Documented by: Ondansetron HCl (Ondansetron 2 Mg/Ml Sdv 2 Ml) 4 mg IVP Q8H PRN PRN Reason: vomiting, or N/V if npo Pantoprazole Sodium (Pantoprazole Dr 40 Mg Tablet) 40 mg PO DAILY@08 [facility] Phenytoin (Phenytoin Er 100 Mg Capsule) 200 mg PO BID@ [facility] Last Admin: 08/15/21 22:48 Dose: Not Given Documented by: Polyethylene Glycol (Polyethylene Glycol 3350 Pkt 17 Gm) 17 gm PO DAILY PRN PRN Reason: Constipation Senna/Docusate Sodium (Sennosides-Docusate Tablet) 2 tab PO BID PRN PRN Reason: Constipation Sodium Phosphate (Fleet Enema 133 Ml Enema) 118 ml [place] DAILY PRN PRN Reason: Constipation Spironolactone (Spironolactone 25 Mg Tablet) 6.25 mg PO DAILY@08 [facility] Vitamin D (Cholecalciferol (Vitamin D3) 1,000 Unit Tablet) 1,000 unit PO DAILY@08 [facility] Warfarin Sodium (Warfarin 1 Mg Tablet) 1.5 mg PO DAILY@14 [facility] Vitals/I&O/Wt Last Vital Signs Temp 98.0 F 08/16/21 04:00 Pulse 56 L 02/03/22 04:00 Resp 16 08/16/21 04:00 BP 114/73 08/16/21 04:00 Pulse Ox 95 08/16/21 04:00 08/15/21 08/16/21 08/16/21 22:59 06:59 14:59 Intake Total 50 / 550 250 / 800 Output Total 0 / 0 0 / 0 Balance 50 / 550 250 / 800 Physical Exam Narrative: EXAM NARRATIVE: confused in bed, nc 02, comfortable obese heent- nc/at, eomi, anicteric neck supple, dialysis catheter lungs clear per wire brusher - reg, +ALEX abd soft, nt, ascites ext edema 1+ b/l neuro- responds to pain and moves, lethargic Data : 08/16/21 06:05 08/16/21 06:05 Micro: Microbiology 08/16/21 06:05 Blood Culture - Preliminary Blood SPECIMEN COLLECTED 08/16/21 06:06 Blood Culture - Preliminary Blood SPECIMEN COLLECTED A&P Assessment and plan (1) ESRD (end stage renal disease) on dialysis: 75 7r old female 1. AMS- on previous hospitalizzation- pts MS waxed and waned- RX hypercapneia- 2/ ESRD -k 3.9, bicarb 25, bun 17- -repeat HD in am -if resp status worsens, then can dialyze 3. recent COVID-19 s/p decadron, remdesivir, barcitinib -abx now per medicine -goel culture 4. chronic systolic CHF - EF 20-25%- known pleural effusions- [place] improved [place] cxr BNP 65086- improved for her. [place] bnp was 07199,, Jun 2021- [place] [address] 5. hypercapneic resp acidosis- agree w/ bipap- pH okay at 7.33 6.DM 7. hypothyroidism- check tsh- approx 8. a fib- on a/c. rate controlled 9. anemia-check iron studies. recent covid - ferritin 1520 - no iv iron- give BERTHA seen and examined w/ rN -telehealth visit time spent 30 minutes discussed w/ rN and Dr. Ramos Status: Acute Plan as above Attestations Medical Necessity Statement*: per medicine Time Spent in Patient Care: 16 - 35 minutes (>than 50% of time spent in counselling and/or direct pt care on unit) . Coding Level of Care Code Acute District Court Bailiff for Chg Fwd Diagnoses ESRD (end stage renal disease) on dialysis N18.6; Z99.2
[2021-08-16] MEDS: phenytoin ER 100 mg Capsule 200 MG PO ×2 (09:28→22:07)
[2021-08-16] MEDS: folic acid 1 mg Tablet 2 MG PO (09:28)
[2021-08-16] MEDS: calcitriol 0.25 mcg Capsule PO (09:28)
[2021-08-16] MEDS: famotidine 20 mg/2 mL INJ IVP ×2 (09:28→22:10)
[2021-08-16] MEDS: citalopram 20 mg Tablet 10 MG PO (09:29)
[2021-08-16] MEDS: clopidogrel 75 mg Tablet PO (09:29)
[2021-08-16] MEDS: metoprolol tartrate 25 mg Tablet 12.5 MG PO (09:29)
[2021-08-16] MEDS: spironolactone 25 mg Tablet 6.25 MG PO (09:30)
[2021-08-16] MEDS: pantoprazole DR 40 mg Tablet PO (09:30)
[2021-08-16] MEDS: midodrine 5 mg TABLET 10 MG PO ×3 (10:52→22:05)
[2021-08-16] MEDS: ipratropium-albuterol 3 mL Neb INHALATION ×2 (11:55→21:31)
[2021-08-16 12:00] LABS: Glucose Point of Care 129 mg/dL (70-110)
[2021-08-16] MEDS: warfarin 1 mg Tablet 1.5 MG PO (14:08)
--- NOTE | 2021-08-16 14:24 | P.PN_ITS ---
Subjective Subjective: Interval history: Patient was seen this morning, she is on 3 L, alert oriented x3, follows all commands, she is a bit drowsy, she is surprised that she is here in the hospit al, currently having no complaints, no chest pain, no shortness of breath Vitals/I&O/Wt Last Vital Signs Temp 98.1 F 08/16/21 11:38 Pulse 65 08/16/21 12:00 Resp 18 08/16/21 11:55 BP 125/81 08/16/21 11:38 Pulse Ox 100 08/16/21 11:55 08/15/21 08/16/21 08/16/21 22:59 06:59 14:59 Intake Total 50 / 550 250 / 800 Output Total 0 / 0 0 / 0 Balance 50 / 550 250 / 800 Physical Exam Const: COMMON NORMALS: no acute distress and patient oriented x3 Resp: COMMON NORMALS: normal respiratory effort, No retractions and No use of accessory muscles Cardio: COMMON NORMALS: regular rate, regular rhythm, S1 normal heart sound present and S2 normal heart sound present RATE: regular rate RHYTHM: regular rhythm HEART SOUNDS: S1 normal heart sound present and S2 normal heart sound present GI: COMMON NORMALS: Normal to inspection, nondistended, normoactive bowel sounds present, Soft to palpation, non-tender and No hepatosplenomegaly present PALPATION: Yes Soft to palpation and Yes No hepatosplenomegaly present Extremity: NARRATIVE EXTREMITY EXAM: 1+ pitting edema bilaterally Neuro: COMMON NORMALS: patient oriented x3 Psych: COMMON NORMALS: mental status grossly normal Data : 08/16/21 06:05 08/16/21 06:05 Micro: Microbiology 08/16/21 06:05 Blood Culture - Preliminary Blood SPECIMEN COLLECTED 08/16/21 06:06 Blood Culture - Preliminary Blood SPECIMEN COLLECTED A&P Assessment and plan (1) Altered mental status: Status: Acute (2) Acute and chronic respiratory failure with hypercapnia: Status: Acute (3) COVID-19: Status: Acute (4) Warfarin-induced coagulopathy: Status: Acute (5) Acute renal failure superimposed on stage 3 chronic kidney disease: Status: Acute (6) Diabetes: Status: Acute Qualifiers: Chronic kidney disease stage: stage 3 (moderate) Chronic kidney disease stage 3 subtype: stage 3b (GFR 30-44) Diabetes mellitus complication detail: with chronic kidney disease Diabetes mellitus complication status: with kidney complications Diabetes mellitus exterminator termite insulin use: with exterminator termite use Diabetes mellitus type: type 2 Qualified Code(s): E11.22 - Type 2 diabetes mellitus with diabetic chronic kidney disease; N18.32 - Chronic kidney disease, stage 3b; 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 (7) Acute on chronic congestive heart failure: Status: Acute Qualifiers: Heart failure type: systolic Qualified Code(s): I50.23 - Acute on chronic systolic (congestive) heart failure (8) Dyslipidemia: Status: Chronic Plan Acute hypercarbic respiratory failure -Secondary to COPD -pH 7.33, PCO2 60.5, PO2 is 102 on 3 L Plan -We will admit to general medical floors -Continue BiPAP -Budesonide, ipratropium -Rocephin and azithromycin for possible pneumonia -Does not look fluid overloaded, BNP is elevated, does have 1+ pitting edema, possible dialysis in the next 24 hours -Coumadin for DVT prophylaxis -Spoke to patient's son, patient is DNR/DNI Systolic and diastolic CHF, does not urinate, Atrial fibrillation, continue Coumadin, goal INR 1.5-2 due to risk of bleeding Insulin-dependent diabetes mellitus, continue sliding scale Hypertension Hyperlipidemia History of COVID-19, no focal infiltrates on chest x-ray, no significant leukocytosis, await pro-Jason, CRP, received treatment for COVID-19 during last hospitalization, continue to monitor, continue isolation Chronic kidney disease, dialysis dependent, consult nephrology Attestations Medical Necessity Statement*: Requires hospitalization for acute respiratory failure Coding Level of Care Code Acute Database Software Technician for [facility] Diagnoses Altered mental status R41.82 Acute and chronic respiratory failure with hypercapnia J96.22 COVID-19 U07.1 Warfarin-induced coagulopathy D68.32; T45.515A Acute renal failure superimposed on stage 3 chronic kidney disease N17.9; N18.30 Diabetes E11.22; N18.32; Z79.4 Chronic kidney disease stage: stage 3 (moderate) Chronic kidney disease stage 3 subtype: stage 3b (GFR 30-44) Diabetes mellitus complication detail: with chronic kidney disease Diabetes mellitus complication status: with kidney complications Diabetes mellitus exterminator termite insulin use: with [facility] use Diabetes mellitus type: type 2 Acute on chronic congestive heart failure I50.23 Heart failure type: systolic Dyslipidemia E78.5
[2021-08-16] MEDS: epoetin alfa 10,000 unit/mL INJ 10000 UNIT SUBCUT (15:54)
[2021-08-16 17:40] LABS: Glucose Point of Care 112 mg/dL (70-110)
[2021-08-16 21:06] LABS: Glucose Point of Care 109 mg/dL (70-110)
[2021-08-16] MEDS: budesonide 0.5 mg/2 mL Neb INHALATION (21:30)
[2021-08-16] MEDS: atorvastatin 40 mg Tablet 80 MG PO (22:07)
[2021-08-16] MEDS: cefTRIAXone 1,000 MG in sodium chloride 0.9% (plus) 50 ML 100 MG IV (22:10)
[2021-08-16] MEDS: azithromycin 500 MG in sodium chloride 0.9% 250 ML 250 MG IV (22:51)
[2021-08-17] VITALS (15 sets, daily range): BP systolic 86–115; BP diastolic 40–69; PULSE 49–78; RESP 14–24; TEMP 34.3–36.6; O2SAT 91–99
[2021-08-17] MEDS: levothyroxine 200 mcg Tablet PO (05:19)
[2021-08-17] MEDS: levothyroxine 25 mcg Tablet PO (05:19)
[2021-08-17 06:20] LABS: Glucose Point of Care 105 mg/dL (70-110)
[2021-08-17 06:49] LABS: Glucose Point of Care 106 mg/dL (70-110)
[2021-08-17] MEDS: budesonide 0.5 mg/2 mL Neb INHALATION ×2 (08:03→20:07)
[2021-08-17] MEDS: ipratropium-albuterol 3 mL Neb INHALATION ×3 (08:03→20:07)
[2021-08-17 08:29] LABS: Basophils # 0.1 10^3/uL (0.0-0.1); Eosinophils # 0.4 10^3/uL (0.0-0.8); Eosinophils % 7.1 %; Hematocrit 27.5 % (37.0-47.0); Lymphocytes % 16.5 %; Mean Corpuscular HGB Conc 29.1 g/dL (30.0-36.0); Mean Corpuscular Hemoglobin 30.5 pg (28.0-34.0); Mean Platelet Volume 13.6 fL (7.4-10.4); Monocytes # 0.6 10^3/uL (0.2-0.9); Monocytes % 10.3 %; Neutrophils # 3.81 10^3/uL (1.8-7.7); Neutrophils % 64.1 %; Nucleated Red Blood Cells % 0 %; Platelet Count 94 10^3/cmm (130-400); Red Blood Count 2.62 10^6/uL (4.1-5.3); Red Cell Distribution Width 19.8 % (12.1-15.1); White Blood Count 5.9 10^3/uL (4.0-10.0)
[2021-08-17 08:41] LABS: INR 1.57 (0.8-1.2)
[2021-08-17 08:55] LABS: Alanine Aminotransferase 15 U/L (0-33); Albumin Level 2.3 g/dL (3.5-5.2); Alkaline Phosphatase 206 IU/L (35-105); Aspartate Amino Transferase 48 U/L (0-32); Blood Urea Nitrogen 21 mg/dL (8-23); Calcium 7.5 mg/dL (8.5-10.5); Carbon Dioxide 22 mmol/L (22-29); Chloride 103 mmol/L (98-107); Globulin 3.2 g/dL (1.3-4.6); Glucose 99 mg/dL (65-115); Magnesium 1.8 mg/dL (1.7-2.3); Osmolality Calculated 289 mOsm/kg (285-295); Phosphorus 2.3 mg/dL (2.5-4.5); Sodium 138 mmol/L (136-145); Total Bilirubin 0.3 mg/dL (0.15-1.2); Total Protein 5.5 g/dL (6.6-8.7)
[2021-08-17 09:04] LABS: Anion Gap 17.1 (5-19); Potassium 4.1 mmol/L (3.5-5.1)
[2021-08-17] MEDS: calcitriol 0.25 mcg Capsule PO (09:32)
[2021-08-17] MEDS: phenytoin ER 100 mg Capsule 200 MG PO ×2 (09:33→21:14)
[2021-08-17] MEDS: famotidine 20 mg/2 mL INJ IVP ×2 (09:33→21:11)
[2021-08-17] MEDS: citalopram 20 mg Tablet 10 MG PO (09:34)
[2021-08-17] MEDS: clopidogrel 75 mg Tablet PO (09:34)
[2021-08-17] MEDS: midodrine 5 mg TABLET 10 MG PO ×3 (09:34→21:11)
[2021-08-17] MEDS: pantoprazole DR 40 mg Tablet PO (09:34)
[2021-08-17] MEDS: spironolactone 25 mg Tablet 6.25 MG PO (09:45)
[2021-08-17] MEDS: folic acid 1 mg Tablet 2 MG PO (09:45)
--- NOTE | 2021-08-17 09:48 | P.PN_ITS ---
Subjective Subjective: Interval history: Ms. Lee is well-known to our services. Remains sleepy this morning, was on CPAP overnight, seemed to tolerate it well. When stimulated she is arousable but she remains very lethargic. Vitals/I&O/Wt Last Vital Signs Temp 97.8 F 08/17/21 04:00 Pulse 59 L 08/17/21 08:17 Resp 18 08/17/21 08:17 BP 96/40 08/17/21 04:00 Pulse Ox 96 08/17/21 08:17 08/16/21 08/17/21 08/17/21 22:59 06:59 14:59 Intake Total 50 / 50 350 / 400 Output Total 0 / 0 Balance 50 / 50 350 / 400 Weight last 48 hrs Weight 129.727 kg Physical Exam Narrative: EXAM NARRATIVE: Constitutional: Sleepy, comfortable HEENT: Wet mucosa, no jvp, non icteric Lungs: Bilaterally clear without discernible wheeze or rales in all lung zones CVS: S1 S2, no murmurs Abdo: Soft, BS ok Ext 4: Minimal edema, peripheral perfusion with no cyanosis Neurological: Grossly non-focal Data : 08/17/21 08:10 08/17/21 08:10 Micro: Microbiology 08/16/21 06:06 Blood Culture - Preliminary Blood NEGATIVE TO DATE 08/16/21 06:05 Blood Culture - Preliminary Blood NEGATIVE TO DATE A&P Assessment and plan (1) ESRD (end stage renal disease) on dialysis: 1. ESRD Dialysis pending for today, 3K bath, ultrafiltration 1-2 L Continue Friday, Friday, Friday schedule whilst in the hospital Dose medication for GFR less than 15 on dialysis 2. Altered mental status Presented with hypercarbic respiratory failure, currently intermittently requiring CPAP. Management per medicine. No other obvious etiology at this time. 3. Hemodynamics Blood pressure remains soft, continue midodrine, currently on spironolactone and metoprolol as well. 4. Chronic ESRD issues This includes anemia, secondary hyperparathyroidism etc. Can manage as an outpatient as part of monthly management. Thank you for consultation, it is a pleasure to follow these cases with you Exam and interview performed with aid of bedside RN using telemedicine Time spent 20 min inc > 50% of time in face to face counseling Corbin Sánchez MD [facility] [phone] Status: Acute Attestations Medical Necessity Statement*: eval for ESRD Coding Level of Care Code Acute Visitor Services Technician for g Fwd Diagnoses ESRD (end stage renal disease) on dialysis N18.6; Z99.2
[2021-08-17] MEDS: heparin, porcine 1,000 unit/mL INJ 10 mL HE (11:37)
[2021-08-17 12:20] LABS: Glucose Point of Care 125 mg/dL (70-110)
--- NOTE | 2021-08-17 13:13 | PM.DCS ---
Discharge Providers Date of Admission: 08/15/21 15:33 Date of Discharge: August 17, 2021 Attending Provider at Admission: Delgado Ramos MD Attending Provider at Discharge: Delgado Ramos MD Primary Care Provider: Pascual Kay MD Diagnoses at Discharge Discharge Diagnosis (1) ESRD (end stage renal disease) on dialysis: Status: Acute Reason for Visit Reason for Visit: RESPONDING TO PAINFUL STIMULI ONLY Physical Exam Const: COMMON NORMALS: no acute distress and patient oriented x3 Resp: COMMON NORMALS: normal respiratory effort, No retractions, No use of accessory muscles and clear to auscultation bilaterally AUSCULTATION: clear to auscultation bilaterally Cardio: COMMON NORMALS: regular rate, regular rhythm, S1 normal heart sound present and S2 normal heart sound present RATE: regular rate RHYTHM: regular rhythm HEART SOUNDS: S1 normal heart sound present and S2 normal heart sound present GI: COMMON NORMALS: Normal to inspection, nondistended, normoactive bowel sounds present, Soft to palpation, non-tender and No hepatosplenomegaly present PALPATION: Yes Soft to palpation and Yes No hepatosplenomegaly present Extremity: COMMON NORMALS: no pedal edema Neuro: COMMON NORMALS: patient oriented x3 Psych: COMMON NORMALS: mental status grossly normal Discharge Data Studies Completed and Pending Completed Studies During Hospitalization Category Date Time Status CT head wo con* [id number] Urgent Cat Scan 08/15/21 09:57 Completed XR chest 1V portable [id number] Urgent Exams 08/15/21 09:57 Completed Pending at discharge Category Date Time Status Arterial Blood Gas W/O Coox AM LABS Lab 08/18/21 04:00 Ordered Blood Culture Routine Lab 08/15/21 21:15 Results Complete Blood Count w/Auto AM LABS Lab 08/18/21 04:00 Ordered Complete Blood Count w/Auto AM LABS Lab 08/18/21 04:00 Ordered Comprehensive Metabolic Panel AM LABS Lab 08/18/21 04:00 Ordered Comprehensive Metabolic Panel AM LABS Lab 08/18/21 04:00 Ordered Magnesium AM LABS Lab 08/18/21 04:00 Ordered Magnesium AM LABS Lab 08/18/21 04:00 Ordered Phosphorus AM LABS Lab 08/18/21 04:00 Ordered Phosphorus AM LABS Lab 08/18/21 04:00 Ordered Prothrombin Time INR AM LABS Lab 08/18/21 04:00 Ordered Urinalysis Stat Lab 08/15/21 09:54 Uncollected Radiology Impressions Chest X-Ray 08/15/21 09:57 IMPRESSION: Stable abnormal chest. Head CT 08/15/21 09:57 IMPRESSION: 1. No evidence of intracranial hemorrhage or mass effect. 2. Mild small vessel changes with mild parenchymal volume loss. 3. Mild paranasal sinusitis. 4. No acute intracranial findings. Laboratory Results WBC 5.9 10^3/uL (4.0-10.0) 08/17/21 08:10 RBC 2.62 10^6/uL (4.1-5.3) L 08/17/21 08:10 Hgb 8.0 g/dL (11.5-15.3) L 08/17/21 08:10 Hct 27.5 % (37.0-47.0) L 08/17/21 08:10 MCV 105.0 fl (81-99) H D 08/17/21 08:10 MCH 30.5 pg (28.0-34.0) 08/17/21 08:10 MCHC 29.1 g/dL (30.0-36.0) L 08/17/21 08:10 RDW 19.8 % (12.1-15.1) H 08/17/21 08:10 Plt Count 94 10^3/cmm (130-400) L 08/17/21 08:10 MPV 13.6 fL (7.4-10.4) H 08/17/21 08:10 Neut % (Auto) 64.1 % 08/17/21 08:10 Lymph % (Auto) 16.5 % 08/17/21 08:10 [place] % (Auto) 10.3 % 08/17/21 08:10 Eos % (Auto) 7.1 % 08/17/21 08:10 Baso % (Auto) 1.0 % 08/17/21 08:10 Neut # (Auto) 3.81 10^3/uL (1.8-7.7) 08/17/21 08:10 Lymph # (Auto) 1.0 10^3/uL (0.8-4.8) 08/17/21 08:10 [place] # (Auto) 0.6 10^3/uL (0.2-0.9) 08/17/21 08:10 Eos # (Auto) 0.4 10^3/uL (0.0-0.8) 08/17/21 08:10 Baso # (Auto) 0.1 10^3/uL (0.0-0.1) 08/17/21 08:10 Nucleated RBC % (auto) 0 % 08/17/21 08:10 Nucleated RBCs # 0.0 /100WBC 08/17/21 08:10 PT 19.20 SECONDS (12.1-14.9) H 08/17/21 08:10 INR 1.57 (0.8-1.2) H 08/17/21 08:10 Specimen Type Arterial 08/16/21 05:43 Sample Site Radial, left 08/16/21 05:43 ABG pH 7.33 (7.35-7.45) L 08/16/21 05:43 ABG pCO2 60.5 mmHg (35-45) H* 08/16/21 05:43 ABG pO2 102.0 mmHg (80.0-100.0) H 08/16/21 05:43 ABG HCO3 31.9 mmol/L (22-26) H 08/16/21 05:43 ABG Base Excess 5.1 mmol/L (-2.0-2.0) H 08/16/21 05:43 Olvin Test Pos 08/16/21 05:43 Hematocrit 23.6 % (37-47) L 08/16/21 05:43 O2 Delivery Device Nc 08/16/21 05:43 O2 Liters/Min 3.0 % 08/16/21 05:43 FiO2 30.0 % 08/15/21 13:42 Washing And Screening Plant Supervisor ID Hensa 08/16/21 05:43 Sodium 138 mmol/L (136-145) 08/17/21 08:10 Potassium 4.1 mmol/L (3.5-5.1) 08/17/21 08:10 Chloride 103 mmol/L (98-107) 08/17/21 08:10 Carbon Dioxide 22 mmol/L (22-29) 08/17/21 08:10 Anion Gap 17.1 (5-19) 08/17/21 08:10 BUN 21 mg/dL (8-23) 08/17/21 08:10 Creatinine 2.9 mg/dL (0.5-0.9) H 08/17/21 08:10 GFR Calculation Not Reportable 08/17/21 08:10 Glucose 99 mg/dL (65-115) 08/17/21 08:10 POC Glucose 125 mg/dL (70-110) H 08/17/21 11:36 Calculated Osmolality 289 mOsm/kg (285-295) 08/17/21 08:10 Lactic Acid 2.1 mmol/L (0.5-2.2) 08/15/21 10:23 Lactic Acid (Sepsis) 1.7 mmol/L (0.5-2.2) 08/15/21 20:18 Calcium 7.5 mg/dL (8.5-10.5) L 08/17/21 08:10 Phosphorus 2.3 mg/dL (2.5-4.5) L 08/17/21 08:10 Magnesium 1.8 mg/dL (1.7-2.3) 08/17/21 08:10 Iron 75 ug/dL (37-145) 08/16/21 06:05 TIBC 134 mcg/dl 08/16/21 06:05 % Saturation 55.9 % (20-50) H 08/16/21 06:05 Unsat Iron Binding 59 ug/dL (112-347) L 08/16/21 06:05 Ferritin 1520 ng/mL (15-150) H 08/16/21 06:05 Total Bilirubin 0.3 mg/dL (0.15-1.2) 08/17/21 08:10 AST 48 U/L (0-32) H 08/17/21 08:10 ALT 15 U/L (0-33) 08/17/21 08:10 Alkaline Phosphatase 206 IU/L (35-105) H 08/17/21 08:10 Troponin T Baseline 99 ng/L (0-10) H 08/15/21 10:25 Troponin T 120 Minute 77.34 ng/L (0-10) H 08/15/21 12:31 Delta Troponin T -21.66 ABS# (0-10) L 08/15/21 12:31 Troponin T Hi Sens 6Hr 98.46 ng/L (0-10) H 08/15/21 16:51 Troponin T Hi Sens 6Hr Delta -0.54 ng/L (0-12) L 08/15/21 16:51 NT-Pro-B Natriuret Pep 66423 pg/mL (0-450) H 08/15/21 10:25 Total Protein 5.5 g/dL (6.6-8.7) L 08/17/21 08:10 Albumin 2.3 g/dL (3.5-5.2) L 08/17/21 08:10 Globulin 3.2 g/dL (1.3-4.6) 08/17/21 08:10 25-OH Vitamin D Total 31 ng/mL (30-100) 08/16/21 06:05 Procalcitonin 0.13 ng/mL (0-0.5) 08/16/21 06:05 TSH 4.84 uIU/mL (0.27-4.20) H 08/16/21 06:05 PTH Intact 154.4 pg/mL (15-65) H 08/16/21 06:05 Calcium (PTH Intact) 7.6 mg/dL (8.5-10.5) L 08/16/21 06:05 Nasal Influ A H1 2009 PCR Not detected (NOT DETECT) 08/15/21 17:10 Coronavirus 229E (PCR) Not detected (NOT DETECT) 08/15/21 17:10 Hep Bs Antigen Non-reactive (Nonreactive) 08/15/21 20:18 Hep Bs Antibody 5.5 (11.5-1000) L 08/15/21 20:18 Influenza A (H1) PCR Not detected (NOT DETECT) 08/15/21 17:10 Influenza A (H3) PCR Not detected (NOT DETECT) 08/15/21 17:10 Influenza Type A Ag Cancelled 08/15/21 17:10 Influenza Type A (PCR) Not detected (NOT DETECT) 08/15/21 17:10 Influenza Type B Ag Cancelled 08/15/21 17:10 Influenza Type B (PCR) Not detected (NOT DETECT) 08/15/21 17:10 SARS-CoV-2 (PCR) Detected (NOT DETECT) A 08/15/21 17:10 Vitals Last Vital Signs Temp 97.8 F 08/17/21 04:00 Pulse 66 08/17/21 11:37 Resp 20 H 08/17/21 11:37 BP 101/48 08/17/21 08:00 Pulse Ox 98 08/17/21 11:37 Discharge Plan Discharge Patient Disposition: Home Condition: Stable Prescriptions: No Action clopidogrel 75 mg tablet 75 mg PO DAILY@0800 0RF calcitriol 0.25 mcg capsule 0.25 mcg PO DAILY@0800 0RF levothyroxine 25 mcg tablet 25 mcg PO DAILY@06 0RF magnesium hydroxide [Milk of Magnesia] 400 mg/5 mL Suspension 5 ml PO QID PRN (Reason: Constipation) 0RF bisacodyl 10 mg Suppository 10 mg [place] DAILY PRN (Reason: Constipation) 0RF levothyroxine 200 mcg tablet 200 mcg PO DAILY@06 0RF folic acid 1 mg Tablet 2 mg PO DAILY@08 0RF pantoprazole [Protonix] 40 mg tablet,delayed release (DR/EC) 40 mg PO DAILY@08 0RF spironolactone 25 mg tablet 6.25 mg PO DAILY@08 Qty: 0 0RF sennosides-docusate sodium [Senna-S] 8.6-50 mg Tablet 2 tab PO BID PRN (Reason: Constipation) 0RF Enema Disposable 19-7 gram/118 mL Enema 118 ml [place] DAILY PRN (Reason: Constipation) 0RF warfarin 1 mg Tablet 1.5 mg PO DAILY@14 0RF polyethylene glycol 3350 [Miralax] 17 gram/dose Powder 17 g PO DAILY PRN (Reason: Constipation) 0RF atorvastatin 80 mg Tablet 80 mg PO BEDTIME@20 0RF citalopram 10 mg Tablet 10 mg PO DAILY@0800 0RF docusate sodium 100 mg capsule 100 mg PO DAILY PRN (Reason: Constipation) 0RF phenytoin sodium extended 100 mg capsule 200 mg PO BID@08,20 0RF insulin aspart U-100 [Novolog Flexpen U-100 Insulin] 100 unit/mL (3 mL) insulin pen See Rx Instructions .ROUTE .COMPLEX 0RF Rx Instructions: sliding scale before meals (06:30,11:30,16:30) 150-200=3 units 201-250=5 units 251-300=7 units 301-350=9 units 351-400=11 units <60 or >400 notify albuterol sulfate [ProAir HFA] 90 mcg/actuation Hfa Aerosol Inhaler 2 puff inhalation Q6H PRN (Reason: Shortness Of Breath) 0RF ondansetron 4 mg Tablet,Disintegrating 8 mg PO BID PRN (Reason: Nausea And Vomiting) 0RF cholecalciferol (vitamin D3) [Vitamin D3] 25 mcg (1,000 unit) Tablet 25 mcg PO DAILY@08 0RF levofloxacin 750 mg tablet 750 mg PO DAILY 5 Days Qty: 5 0RF Rx Instructions: x 5 days metoprolol tartrate 25 mg tablet 12.5 mg PO BID@08,20 Qty: 0 0RF Tylenol 325 mg Tablet 650 mg PO Q6H PRN (Reason: Pain) 0RF Referrals: Pascual Kay MD [Primary Care Provider] - Patient Instructions: Opioid Safety Discharge Attestations Status at Discharge: Cognitive status at discharge: cognitively intact, Behavioral status at discharge: cooperative, Coding Level of Care Code Acute Chg FW DC note Diagnoses ESRD (end stage renal disease) on dialysis N18.6; Z99.2
--- NOTE | 2021-08-17 14:12 | P.PN_ITS ---
Subjective Subjective: Interval history: Patient was seen this morning, she is quite drowsy this morning, she does open her eyes to sternal rub, but falls back asleep, the lights entering the room, and she wants the blankets to cover her eyes, however she does not follow commands, according to nursing staff she did not use her BiPAP during the night, no fevers,, no cough, no significant complaints Vitals/I&O/Wt Last Vital Signs Temp 97.8 F 08/17/21 04:00 Pulse 66 08/17/21 11:37 Resp 20 H 08/17/21 11:37 BP 101/48 08/17/21 08:00 Pulse Ox 98 08/17/21 11:37 08/16/21 08/17/21 08/17/21 22:59 06:59 14:59 Intake Total 50 / 50 350 / 400 Output Total 0 / 0 Balance 50 / 50 350 / 400 Weight last 48 hrs Weight 129.727 kg Physical Exam Const: COMMON NORMALS: no acute distress EXAM LIMITATIONS: altered mental status ORIENTATION/CONSCIOUSNESS: Yes awake and Yes oriented to person; not oriented to place and not oriented to time Resp: COMMON NORMALS: normal respiratory effort, No retractions, No use of accessory muscles and clear to auscultation bilaterally AUSCULTATION: clear to auscultation bilaterally Cardio: COMMON NORMALS: regular rate, regular rhythm, S1 normal heart sound present and S2 normal heart sound present RATE: regular rate RHYTHM: regular rhythm HEART SOUNDS: S1 normal heart sound present and S2 normal heart sound present GI: COMMON NORMALS: Normal to inspection, nondistended, normoactive bowel sounds present, Soft to palpation, non-tender and No hepatosplenomegaly present PALPATION: Yes Soft to palpation and Yes No hepatosplenomegaly present Extremity: COMMON NORMALS: no pedal edema Neuro: SENSORIUM/ORIENTATION: Yes oriented to person, No oriented to place and No oriented to time Data : 08/17/21 08:10 08/17/21 08:10 Micro: Microbiology 08/16/21 06:06 Blood Culture - Preliminary Blood NEGATIVE TO DATE 08/16/21 06:05 Blood Culture - Preliminary Blood NEGATIVE TO DATE A&P Assessment and plan (1) Altered mental status: Status: Acute (2) Acute and chronic respiratory failure with hypercapnia: Status: Acute (3) COVID-19: Status: Acute (4) Warfarin-induced coagulopathy: Status: Acute (5) Acute renal failure superimposed on stage 3 chronic kidney disease: Status: Acute (6) Diabetes: Status: Acute Qualifiers: Chronic kidney disease stage: stage 3 (moderate) Chronic kidney disease stage 3 subtype: stage 3b (GFR 30-44) Diabetes mellitus complication detail: with chronic kidney disease Diabetes mellitus complication status: with kidney complications Diabetes mellitus termination clerk insulin use: with termination clerk use Diabetes mellitus type: type 2 Qualified Code(s): E11.22 - Type 2 diabetes mellitus with diabetic chronic kidney disease; N18.32 - Chronic kidney disease, stage 3b; 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 (7) Acute on chronic congestive heart failure: Status: Acute Qualifiers: Heart failure type: systolic Qualified Code(s): I50.23 - Acute on chronic systolic (congestive) heart failure (8) Dyslipidemia: Status: Chronic Plan Altered mental status, likely secondary to hypercarbia, continue BiPAP, continue to monitor, patient has a history of left CVL awaiting mentation, head CT on admission negative for acute stroke Acute hypercarbic respiratory failure -Secondary to COPD Plan -Continue to monitor respiratory status -Continue BiPAP -Budesonide, ipratropium -Rocephin and azithromycin for possible pneumonia -Does not look fluid overloaded, BNP is elevated, does have 1+ pitting edema, will get dialysis today -Coumadin for DVT prophylaxis -Spoke to patient's son, patient is DNR/DNI Systolic and diastolic CHF, does not urinate, Atrial fibrillation, continue Coumadin, goal INR 1.5-2 due to risk of bleeding Insulin-dependent diabetes mellitus, continue sliding scale Hypertension Hyperlipidemia History of COVID-19, no focal infiltrates on chest x-ray, no significant leukocytosis, await pro-Jason, CRP, received treatment for COVID-19 during last hospitalization, continue to monitor, continue isolation Chronic kidney disease, dialysis dependent, consult nephrology Attestations Medical Necessity Statement*: Patient requires hospitalization for altered mental status, acute hypercarbic respiratory failure Coding Level of Care Code Acute Crosstie Inspector for Sosa Bates Diagnoses Altered mental status R41.82 Acute and chronic respiratory failure with hypercapnia J96.22 COVID-19 U07.1 Warfarin-induced coagulopathy D68.32; T45.515A Acute renal failure superimposed on stage 3 chronic kidney disease N17.9; N18.30 Diabetes E11.22; N18.32; Z79.4 Chronic kidney disease stage: stage 3 (moderate) Chronic kidney disease stage 3 subtype: stage 3b (GFR 30-44) Diabetes mellitus complication detail: with chronic kidney disease Diabetes mellitus complication status: with kidney complications Diabetes mellitus termination clerk insulin use: with senior care use Diabetes mellitus type: type 2 Acute on chronic congestive heart failure I50.23 Heart failure type: systolic Dyslipidemia E78.5
[2021-08-17] MEDS: warfarin 1 mg Tablet 1.5 MG PO (15:55)
[2021-08-17 18:02] LABS: Glucose Point of Care 104 mg/dL (70-110)
--- NOTE | 2021-08-17 19:12 | PC.NURSE ---
at aprox . 1645 pt took off bipap mask and was demanding to get up. patient was curled up covering face and yelling help me repeatedly. discussed with patient that she needed to wear the bipap and she refused. when attempting to put the mask on she kept yelling no and swatting at me. patient assisted to the side of the bed, where she sat up for aprox 30. mins. while sitting there she wore bipap for about 10 mins before pulling off the mask again. I told patient that she still needs to wear bipap and she refused again. when attempting to get the mask back on she sat her head on the table and continued to cover her face and swatted at my hands when trying to put the mask on.
[2021-08-17 21:02] LABS: Glucose Point of Care 117 mg/dL (70-110)
[2021-08-17] MEDS: azithromycin 250 mg Tablet 500 MG PO (21:11)
[2021-08-17] MEDS: cefTRIAXone 1,000 MG in sodium chloride 0.9% (plus) 50 ML 100 MG IV (21:11)
[2021-08-17] MEDS: atorvastatin 40 mg Tablet 80 MG PO (21:14)
[2021-08-18] VITALS (11 sets, daily range): BP systolic 95–108; BP diastolic 62–80; PULSE 58–84; RESP 16–20; TEMP 36.2–36.9; O2SAT 97–100
[2021-08-18] MEDS: acetaminophen 325 mg Tablet 650 MG PO (01:54)
[2021-08-18] MEDS: levothyroxine 25 mcg Tablet PO (05:16)
[2021-08-18] MEDS: levothyroxine 200 mcg Tablet PO (05:16)
[2021-08-18 05:39] LABS: ABG PCO2 50.3 mmHg (35-45); ABG PH Result 7.41 (7.35-7.45); Arterial Blood Gas Hematocrit 22.6 % (37-47); Base Excess ABG 6.7 mmol/L (-2.0-2.0); Blood Gas Allen Test Pos; Blood Gas Sample Site Radial, right; Blood Gas Sample Type Arterial; Oxygen Device NC
[2021-08-18 06:31] LABS: Glucose Point of Care 125 mg/dL (70-110)
[2021-08-18] MEDS: budesonide 0.5 mg/2 mL Neb INHALATION (08:32)
[2021-08-18] MEDS: ipratropium-albuterol 3 mL Neb INHALATION ×2 (08:32→12:00)
[2021-08-18] MEDS: midodrine 5 mg TABLET 10 MG PO (09:55)
[2021-08-18] MEDS: clopidogrel 75 mg Tablet PO (09:56)
[2021-08-18] MEDS: metoprolol tartrate 25 mg Tablet 12.5 MG PO (09:56)
[2021-08-18] MEDS: calcitriol 0.25 mcg Capsule PO (09:56)
[2021-08-18] MEDS: citalopram 20 mg Tablet 10 MG PO (09:56)
[2021-08-18] MEDS: pantoprazole DR 40 mg Tablet PO (09:56)
[2021-08-18] MEDS: folic acid 1 mg Tablet 2 MG PO (09:56)
[2021-08-18] MEDS: phenytoin ER 100 mg Capsule 200 MG PO (09:56)
[2021-08-18] MEDS: spironolactone 25 mg Tablet 6.25 MG PO (09:57)
[2021-08-18] MEDS: famotidine 20 mg/2 mL INJ IVP (09:57)
--- NOTE | 2021-08-18 10:27 | PM.DCS ---
Discharge Providers Date of Admission: 08/15/21 15:33 Date of Discharge: August 18, 2021 Attending Provider at Admission: Delgado Ramos MD Attending Provider at Discharge: Delgado Ramos MD Primary Care Provider: Pascual Kay MD Diagnoses at Discharge Discharge Diagnosis (1) Altered mental status: Status: Acute (2) Acute and chronic respiratory failure with hypercapnia: Status: Acute (3) COVID-19: Status: Acute (4) Warfarin-induced coagulopathy: Status: Acute (5) Acute renal failure superimposed on stage 3 chronic kidney disease: Status: Acute (6) Diabetes: Status: Acute Qualifiers: Chronic kidney disease stage: stage 3 (moderate) Chronic kidney disease stage 3 subtype: stage 3b (GFR 30-44) Diabetes mellitus complication detail: with chronic kidney disease Diabetes mellitus complication status: with kidney complications Diabetes mellitus assisted insulin use: with long term care phlebotomist use Diabetes mellitus type: type 2 Qualified Code(s): E11.22 - Type 2 diabetes mellitus with diabetic chronic kidney disease; N18.32 - Chronic kidney disease, stage 3b; Z79.4 - care home (current) use of insulin (7) Acute on chronic congestive heart failure: Status: Acute Qualifiers: Heart failure type: systolic Qualified Code(s): I50.23 - Acute on chronic systolic (congestive) heart failure (8) Dyslipidemia: Status: Chronic Reason for Visit Reason for Visit: RESPONDING TO PAINFUL STIMULI ONLY Hospital Course Hospital Course Carole Lee is a 75 year old female who is had multiple hospitalizations in the past few months, recent hospitalizations for bilateral pleural effusions, chronic hypercapnic respiratory failure, history of systolic CHF EF of 20 to 25%, discharged with a LifeVest, history of COVID-19 pneumonia, hypertension, hyperlipidemia, history of encephalopathy, end-stage renal disease on dialysis, insulin-dependent type 2 diabetes mellitus, hypothyroidism, atrial fibrillation on Coumadin, goal INR 1.5-2 due to risk of bleeding,,? who presents to [facility] due to nonresponsiveness.? Patient was admitted to [facility] due to altered mental status secondary to hypercarbia, fluid overload, requiring dialysis, CT head negative for acute stroke, also received antibiotic for possible underlying pneumonia, although blood cultures were unremarkable, she remained afebrile, she did receive 1 round of dialysis inpatient, clinically improved, mentation improved, on day of discharge alert oriented x3, a bit drowsy above, following commands, ABG on day of discharge pH 7.41, PCO2 50.3, PO2 112 on 30%, discharged on 2 L nasal cannula. Physical Exam Const: COMMON NORMALS: no acute distress and patient oriented x3 Resp: COMMON NORMALS: normal respiratory effort, No retractions, No use of accessory muscles and clear to auscultation bilaterally AUSCULTATION: clear to auscultation bilaterally Cardio: COMMON NORMALS: regular rate, regular rhythm, S1 normal heart sound present and S2 normal heart sound present RATE: regular rate RHYTHM: regular rhythm HEART SOUNDS: S1 normal heart sound present and S2 normal heart sound present GI: COMMON NORMALS: Normal to inspection, nondistended, normoactive bowel sounds present, Soft to palpation, non-tender and No hepatosplenomegaly present PALPATION: Yes Soft to palpation and Yes No hepatosplenomegaly present Extremity: COMMON NORMALS: no pedal edema Neuro: COMMON NORMALS: patient oriented x3 Psych: COMMON NORMALS: mental status grossly normal Discharge Data Studies Completed and Pending Completed Studies During Hospitalization Category Date Time Status CT head wo con* [id number] Urgent Cat Scan 08/15/21 09:57 Completed XR chest 1V portable [id number] Urgent Exams 08/15/21 09:57 Completed Pending at discharge Category Date Time Status Blood Culture Routine Lab 08/15/21 21:15 Results Complete Blood Count w/Auto AM LABS Lab 08/18/21 04:00 Ordered Comprehensive Metabolic Panel AM LABS Lab 08/18/21 04:00 Ordered Magnesium AM LABS Lab 08/18/21 04:00 Ordered Phosphorus AM LABS Lab 08/18/21 04:00 Ordered Prothrombin Time INR AM LABS Lab 08/18/21 04:00 Ordered Urinalysis Stat Lab 08/15/21 09:54 Uncollected Radiology Impressions Chest X-Ray 08/15/21 09:57 IMPRESSION: Stable abnormal chest. Head CT 08/15/21 09:57 IMPRESSION: 1. No evidence of intracranial hemorrhage or mass effect. 2. Mild small vessel changes with mild parenchymal volume loss. 3. Mild paranasal sinusitis. 4. No acute intracranial findings. Laboratory Results WBC 5.9 10^3/uL (4.0-10.0) 08/17/21 08:10 RBC 2.62 10^6/uL (4.1-5.3) L 08/17/21 08:10 Hgb 8.0 g/dL (11.5-15.3) L 08/17/21 08:10 Hct 27.5 % (37.0-47.0) L 08/17/21 08:10 MCV 105.0 fl (81-99) H D 08/17/21 08:10 MCH 30.5 pg (28.0-34.0) 08/17/21 08:10 MCHC 29.1 g/dL (30.0-36.0) L 08/17/21 08:10 RDW 19.8 % (12.1-15.1) H 08/17/21 08:10 Plt Count 94 10^3/cmm (130-400) L 08/17/21 08:10 MPV 13.6 fL (7.4-10.4) H 08/17/21 08:10 Neut % (Auto) 64.1 % 08/17/21 08:10 Lymph % (Auto) 16.5 % 08/17/21 08:10 Stewart % (Auto) 10.3 % 08/17/21 08:10 Eos % (Auto) 7.1 % 08/17/21 08:10 Baso % (Auto) 1.0 % 08/17/21 08:10 Neut # (Auto) 3.81 10^3/uL (1.8-7.7) 08/17/21 08:10 Lymph # (Auto) 1.0 10^3/uL (0.8-4.8) 08/17/21 08:10 Stewart # (Auto) 0.6 10^3/uL (0.2-0.9) 08/17/21 08:10 Eos # (Auto) 0.4 10^3/uL (0.0-0.8) 08/17/21 08:10 Baso # (Auto) 0.1 10^3/uL (0.0-0.1) 08/17/21 08:10 Nucleated RBC % (auto) 0 % 08/17/21 08:10 Nucleated RBCs # 0.0 /100WBC 08/17/21 08:10 PT 19.20 SECONDS (12.1-14.9) H 08/17/21 08:10 INR 1.57 (0.8-1.2) H 08/17/21 08:10 Specimen Type Arterial 08/18/21 04:00 Sample Site Radial, right 08/18/21 04:00 ABG pH 7.41 (7.35-7.45) 08/18/21 04:00 ABG pCO2 50.3 mmHg (35-45) H 08/18/21 04:00 ABG pO2 112.0 mmHg (80.0-100.0) H 08/18/21 04:00 ABG HCO3 32.0 mmol/L (22-26) H 08/18/21 04:00 ABG Base Excess 6.7 mmol/L (-2.0-2.0) H 08/18/21 04:00 Olvin Test Pos 08/18/21 04:00 Hematocrit 22.6 % (37-47) L 08/18/21 04:00 O2 Delivery Device Nc 08/18/21 04:00 O2 Liters/Min 3.0 % 08/18/21 04:00 FiO2 30.0 % 08/15/21 13:42 Archery Equipment Repairer ID Hensa 08/18/21 04:00 Sodium 138 mmol/L (136-145) 08/17/21 08:10 Potassium 4.1 mmol/L (3.5-5.1) 08/17/21 08:10 Chloride 103 mmol/L (98-107) 08/17/21 08:10 Carbon Dioxide 22 mmol/L (22-29) 08/17/21 08:10 Anion Gap 17.1 (5-19) 08/17/21 08:10 BUN 21 mg/dL (8-23) 08/17/21 08:10 Creatinine 2.9 mg/dL (0.5-0.9) H 08/17/21 08:10 GFR Calculation Not Reportable 08/17/21 08:10 Glucose 99 mg/dL (65-115) 08/17/21 08:10 POC Glucose 125 mg/dL (70-110) H 08/18/21 06:23 Calculated Osmolality 289 mOsm/kg (285-295) 08/17/21 08:10 Lactic Acid 2.1 mmol/L (0.5-2.2) 08/15/21 10:23 Lactic Acid (Sepsis) 1.7 mmol/L (0.5-2.2) 08/15/21 20:18 Calcium 7.5 mg/dL (8.5-10.5) L 08/17/21 08:10 Phosphorus 2.3 mg/dL (2.5-4.5) L 08/17/21 08:10 Magnesium 1.8 mg/dL (1.7-2.3) 08/17/21 08:10 Iron 75 ug/dL (37-145) 08/16/21 06:05 TIBC 134 mcg/dl 08/16/21 06:05 % Saturation 55.9 % (20-50) H 08/16/21 06:05 Unsat Iron Binding 59 ug/dL (112-347) L 08/16/21 06:05 Ferritin 1520 ng/mL (15-150) H 08/16/21 06:05 Total Bilirubin 0.3 mg/dL (0.15-1.2) 08/17/21 08:10 AST 48 U/L (0-32) H 08/17/21 08:10 ALT 15 U/L (0-33) 08/17/21 08:10 Alkaline Phosphatase 206 IU/L (35-105) H 08/17/21 08:10 Troponin T Baseline 99 ng/L (0-10) H 08/15/21 10:25 Troponin T 120 Minute 77.34 ng/L (0-10) H 08/15/21 12:31 Delta Troponin T -21.66 ABS# (0-10) L 08/15/21 12:31 Troponin T Hi Sens 6Hr 98.46 ng/L (0-10) H 08/15/21 16:51 Troponin T Hi Sens 6Hr Delta -0.54 ng/L (0-12) L 08/15/21 16:51 NT-Pro-B Natriuret Pep 93651 pg/mL (0-450) H 08/15/21 10:25 Total Protein 5.5 g/dL (6.6-8.7) L 08/17/21 08:10 Albumin 2.3 g/dL (3.5-5.2) L 08/17/21 08:10 Globulin 3.2 g/dL (1.3-4.6) 08/17/21 08:10 25-OH Vitamin D Total 31 ng/mL (30-100) 08/16/21 06:05 Procalcitonin 0.13 ng/mL (0-0.5) 08/16/21 06:05 TSH 4.84 uIU/mL (0.27-4.20) H 08/16/21 06:05 PTH Intact 154.4 pg/mL (15-65) H 08/16/21 06:05 Calcium (PTH Intact) 7.6 mg/dL (8.5-10.5) L 08/16/21 06:05 Nasal Influ A H1 2009 PCR Not detected (NOT DETECT) 08/15/21 17:10 Coronavirus 229E (PCR) Not detected (NOT DETECT) 08/15/21 17:10 Hep Bs Antigen Non-reactive (Nonreactive) 08/15/21 20:18 Hep Bs Antibody 5.5 (11.5-1000) L 08/15/21 20:18 Influenza A (H1) PCR Not detected (NOT DETECT) 08/15/21 17:10 Influenza A (H3) PCR Not detected (NOT DETECT) 08/15/21 17:10 Influenza Type A Ag Cancelled 08/15/21 17:10 Influenza Type A (PCR) Not detected (NOT DETECT) 08/15/21 17:10 Influenza Type B Ag Cancelled 08/15/21 17:10 Influenza Type B (PCR) Not detected (NOT DETECT) 08/15/21 17:10 SARS-CoV-2 (PCR) Detected (NOT DETECT) A 08/15/21 17:10 Vitals Last Vital Signs Temp 98.4 F 08/18/21 08:00 Pulse 65 08/18/21 08:25 Resp 18 08/18/21 08:25 BP 102/72 08/18/21 08:00 Pulse Ox 100 08/18/21 08:25 Discharge Plan Discharge Patient Disposition: Xfer SNF Condition: Stable Prescriptions: Continued clopidogrel 75 mg tablet 75 mg PO DAILY@0800 0RF calcitriol 0.25 mcg capsule 0.25 mcg PO DAILY@0800 0RF levothyroxine 25 mcg tablet 25 mcg PO DAILY@06 0RF magnesium hydroxide [Milk of Magnesia] 400 mg/5 mL Suspension 5 ml PO QID PRN (Reason: Constipation) 0RF bisacodyl 10 mg Suppository 10 mg SC DAILY PRN (Reason: Constipation) 0RF levothyroxine 200 mcg tablet 200 mcg PO DAILY@06 0RF folic acid 1 mg Tablet 2 mg PO DAILY@08 0RF pantoprazole [Protonix] 40 mg tablet,delayed release (DR/EC) 40 mg PO DAILY@08 0RF sennosides-docusate sodium [Senna-S] 8.6-50 mg Tablet 2 tab PO BID PRN (Reason: Constipation) 0RF Enema Disposable 19-7 gram/118 mL Enema 118 ml SC DAILY PRN (Reason: Constipation) 0RF warfarin 1 mg Tablet 1.5 mg PO DAILY@14 0RF polyethylene glycol 3350 [Miralax] 17 gram/dose Powder 17 g PO DAILY PRN (Reason: Constipation) 0RF atorvastatin 80 mg Tablet 80 mg PO BEDTIME@20 0RF citalopram 10 mg Tablet 10 mg PO DAILY@0800 0RF docusate sodium 100 mg capsule 100 mg PO DAILY PRN (Reason: Constipation) 0RF phenytoin sodium extended 100 mg capsule 200 mg PO BID@08,20 0RF insulin aspart U-100 [Novolog Flexpen U-100 Insulin] 100 unit/mL (3 mL) insulin pen See Rx Instructions .ROUTE .COMPLEX 0RF Rx Instructions: sliding scale before meals (06:30,11:30,16:30) 150-200=3 units 201-250=5 units 251-300=7 units 301-350=9 units 351-400=11 units <60 or >400 notify albuterol sulfate [ProAir HFA] 90 mcg/actuation Hfa Aerosol Inhaler 2 puff inhalation Q6H PRN (Reason: Shortness Of Breath) 0RF ondansetron 4 mg Tablet,Disintegrating 8 mg PO BID PRN (Reason: Nausea And Vomiting) 0RF cholecalciferol (vitamin D3) [Vitamin D3] 25 mcg (1,000 unit) Tablet 25 mcg PO DAILY@08 0RF Tylenol 325 mg Tablet 650 mg PO Q6H PRN (Reason: Pain) 0RF Discontinued spironolactone 25 mg tablet 6.25 mg PO DAILY@08 Qty: 0 0RF levofloxacin 750 mg tablet 750 mg PO DAILY 5 Days Qty: 5 0RF Rx Instructions: x 5 days metoprolol tartrate 25 mg tablet 12.5 mg PO BID@08,20 Qty: 0 0RF Discharge Orders: Discharge Order (Routine); Ordered 08/18/21 Ordered By: Delgado Ramos Referrals: Pascual Kay MD [Primary Care Provider] - Discharge Diet: Cardiac Discharge Activity: Resume usual activity Patient Instructions: Opioid Safety Activity Restrictions/Additional Instructions: -Please be compliant with home CPAP -Continue to hold metoprolol, spironolactone due to low blood pressures Discharge Attestations Time Spent in Discharge Care*: less than 30 min Status at Discharge: Cognitive status at discharge: cognitively intact, Behavioral status at discharge: cooperative, Quality Metrics Clinical Quality Measures [ No reported AMI, CVA or VTE this stay] Coding Level of Care Code Acute Chg FW DC note Diagnoses Altered mental status R41.82 Acute and chronic respiratory failure with hypercapnia J96.22 COVID-19 U07.1 Warfarin-induced coagulopathy D68.32; T45.515A Acute renal failure superimposed on stage 3 chronic kidney disease N17.9; N18.30 Diabetes E11.22; N18.32; Z79.4 Chronic kidney disease stage: stage 3 (moderate) Chronic kidney disease stage 3 subtype: stage 3b (GFR 30-44) Diabetes mellitus complication detail: with chronic kidney disease Diabetes mellitus complication status: with kidney complications Diabetes mellitus long term care phlebotomist insulin use: with assisted use Diabetes mellitus type: type 2 Acute on chronic congestive heart failure I50.23 Heart failure type: systolic Dyslipidemia E78.5
--- NOTE | 2021-08-18 10:55 | PM.PN ---
Subjective Subjective: Interval history: She remains very drowsy today. No other acute issues. She is awake when stimulated. She received dialysis yesterday, uncomplicated, uneventful dialysis treatment. No other acute issues today. Hopeful discharge today. Medications: Reviewed: Yes Medication Review Details: Current Medications Acetaminophen (Acetaminophen 325 Mg Tablet) 650 mg PO Q6H PRN PRN Reason: Mild/Mod Pain Or Temp >/= 101 Albuterol/Ipratropium (Ipratropium-Albuterol 3 Ml Neb) 3 ml INHALATION QID.RESPIRATORY ARMINDA Atorvastatin Calcium (Atorvastatin 40 Mg Tablet) 80 mg PO BEDTIME@20 ARMINDA Last Admin: 08/15/21 22:47 Dose: Not Given Documented by: Budesonide (Budesonide 0.5 Mg/2 Ml Neb) 0.5 mg INHALATION BID.RESPIRATORY ARMINDA Calcitriol (Calcitriol 0.25 Mcg Capsule) 0.25 mcg PO DAILY@0800 ARMINDA Citalopram Hydrobromide (Citalopram 20 Mg Tablet) 10 mg PO DAILY@0800 ARMINDA Clopidogrel Bisulfate (Clopidogrel 75 Mg Tablet) 75 mg PO DAILY@0800 [facility] Dextrose (Dextrose 50% Syringe 50 Ml) 25 ml IVP ONCE PRN; Protocol PRN Reason: hypoglycemia protocol Dextrose (Dextrose 50% Syringe 50 Ml) 50 ml IVP PRN PRN; Protocol PRN Reason: hypoglycemia protocol Famotidine (Famotidine 20 Mg/2 Ml Inj) 20 mg IVP Q12H [facility] Last Admin: 08/15/21 21:48 Dose: 20 mg Documented by: Folic Acid (Folic Acid 1 Mg Tablet) 2 mg PO DAILY@08 ARMINDA Glucagon (Glucagon 1 Mg/Ml Inj 1 Ml) 1 mg IM ONCE PRN; Protocol PRN Reason: Adult Acute Hypoglycemia Prot. Albumin Human (Albumin) 12.5 gm in 50 mls @ 60 mls/hr IV PRN PRN PRN Reason: Hypotension and/or symptomatic Ceftriaxone Sodium 1,000 mg/ (Sodium Chloride) 50 mls @ 100 mls/hr IV Q24H ARMINDA; Protocol Last Infusion: 08/15/21 22:19 Dose: Infused Documented by: Azithromycin 500 mg/ Sodium (Chloride) 250 mls @ 250 mls/hr IV Q24H ARMINDA; Protocol Last Infusion: 08/15/21 23:42 Dose: Infused Documented by: Dextrose (D5w) 500 mls @ 100 mls/hr IV ONCE PRN; Protocol PRN Reason: Adult Acute Hypoglycemia Prot Insulin Human Lispro (Insulin Lispro 100 Unit/1 Ml) 0 unit SUBCUT TIDWM [facility]; Protocol Last Admin: 08/16/21 07:20 Dose: Not Given Documented by: Levothyroxine Sodium (Levothyroxine 25 Mcg Tablet) 25 mcg PO DAILY@06 [facility] Last Admin: 08/16/21 06:28 Dose: Not Given Documented by: Levothyroxine Sodium (Levothyroxine 200 Mcg Tablet) 200 mcg PO DAILY@06 [facility] Last Admin: 08/16/21 06:28 Dose: Not Given Documented by: Metoprolol Tartrate (Metoprolol Tartrate 25 Mg Tablet) 12.5 mg PO BID@ [facility] Last Admin: 08/15/21 22:47 Dose: Not Given Documented by: Midodrine (Midodrine 5 Mg Tablet) 10 mg PO TID [facility] Naloxone HCl (Naloxone 0.4 Mg/Ml Sdv) 0.1 mg IVP Q2M PRN PRN Reason: RESPIRATORY RATE < 8/MIN Last Admin: 08/15/21 11:40 Dose: 0.1 mg Documented by: Ondansetron HCl (Ondansetron 2 Mg/Ml Sdv 2 Ml) 4 mg IVP Q8H PRN PRN Reason: vomiting, or N/V if npo Pantoprazole Sodium (Pantoprazole Dr 40 Mg Tablet) 40 mg PO DAILY@08 [facility] Phenytoin (Phenytoin Er 100 Mg Capsule) 200 mg PO BID@ [facility] Last Admin: 08/15/21 22:48 Dose: Not Given Documented by: Polyethylene Glycol (Polyethylene Glycol 3350 Pkt 17 Gm) 17 gm PO DAILY PRN PRN Reason: Constipation Senna/Docusate Sodium (Sennosides-Docusate Tablet) 2 tab PO BID PRN PRN Reason: Constipation Sodium Phosphate (Fleet Enema 133 Ml Enema) 118 ml AL DAILY PRN PRN Reason: Constipation Spironolactone (Spironolactone 25 Mg Tablet) 6.25 mg PO DAILY@08 [facility] Vitamin D (Cholecalciferol (Vitamin D3) 1,000 Unit Tablet) 1,000 unit PO DAILY@08 [facility] Warfarin Sodium (Warfarin 1 Mg Tablet) 1.5 mg PO DAILY@14 [facility] Vitals/I&O/Wt Last Vital Signs Temp 98.4 F 08/18/21 08:00 Pulse 65 08/18/21 08:25 Resp 18 08/18/21 08:25 BP 102/72 08/18/21 08:00 Pulse Ox 100 08/18/21 08:25 08/17/21 08/18/21 08/18/21 22:59 06:59 14:59 Intake Total 470 / 470 380 / 850 Output Total 1800 / 1800 Balance -1330 / -1330 380 / -950 Weight last 48 hrs Weight 129.591 kg Weight 129 kg Physical Exam Narrative: EXAM NARRATIVE: Constitutional: Sleepy, comfortable HEENT: Wet mucosa, no jvp, non icteric Lungs: Bilaterally clear without discernible wheeze or rales in all lung zones CVS: S1 S2, no murmurs Abdo: Soft, BS ok Ext 4: Minimal edema, peripheral perfusion with no cyanosis Neurological: Grossly non-focal Data : 08/17/21 08:10 08/17/21 08:10 Micro: Microbiology 08/16/21 06:06 Blood Culture - Preliminary Blood NEGATIVE TO DATE 08/16/21 06:05 Blood Culture - Preliminary Blood NEGATIVE TO DATE A&P Assessment and plan (1) ESRD (end stage renal disease) on dialysis: 1. ESRD Dialysis planned for Friday in outpatient clinic Continue Friday, Friday, Friday schedule whilst in the hospital Dose medication for GFR less than 15 on dialysis 2. Altered mental status Back to baseline. Hypercarbic on presentation 3. Hemodynamics Blood pressure remains soft, continue midodrine, currently on spironolactone and metoprolol as well. 4. Chronic ESRD issues This includes anemia, secondary hyperparathyroidism etc. Can manage as an outpatient as part of monthly management. Thank you for consultation, it is a pleasure to follow these cases with you ok for DC today Exam and interview performed with aid of bedside RN using telemedicine Time spent 20 min inc > 50% of time in face to face counseling Corbin Sánchez MD [facility] [phone] Status: Acute Attestations Medical Necessity Statement*: Eval for ESRD Coding Level of Care Code Acute Senior Business Intelligence Analyst for Chg Fwd Diagnoses ESRD (end stage renal disease) on dialysis N18.6; Z99.2
[2021-08-18 11:15] LABS: Glucose Point of Care 120 mg/dL (70-110)
--- NOTE | 2021-08-18 12:35 | PC.SOCIAL ---
IMM UPDATED IMM dated and initialed and copy given to patient.
[2021-08-18] MEDS: warfarin 1 mg Tablet 1.5 MG PO (13:55)
--- NOTE | 2021-08-18 14:44 | PC.NURSE ---
PT HAS DONE WELL FOR ME TODAY. PT IS ALERT AND ORIENTATED. SHE IS PARTICIPATING AND INVOLVED IN CARE. SHE IS TALKING AND ASKING QUESTIONS. IVS HAVE BEEN REMOVED. PT TOLERATED WELL. AMBULANCE HERE TO GET AND TRANSPORT PT.
== END 2021-08-18 14:50 | disposition skilled nursing facility (03) | DRG 189 ==
LOC: ER 15:33 → MEDSURG 19:06
PROVIDERS: Internal Medicine Nephrology; Admitting Provider Family Medicine; Emergency Provider Emergency Medicine; PCP Family Medicine; Visit Provider Family Medicine
DX: J96.22 Acute and chronic respiratory failure with hypercapnia (principal); U07.1 COVID-19; N18.6 End stage renal disease; I50.23 Acute on chronic systolic (congestive) heart failure; I13.0 Hypertensive heart and chronic kidney disease with heart failure and stage 1 through stage 4 chronic kidney disease, or unspecified chronic kidney disease; D68.32 Hemorrhagic disorder due to extrinsic circulating anticoagulants; Z68.41 Body mass index [BMI] 40.0-44.9, adult; E87.2 Acidosis; E11.22 Type 2 diabetes mellitus with diabetic chronic kidney disease; Z79.4 Long term (current) use of insulin; E78.5 Hyperlipidemia, unspecified; E03.9 Hypothyroidism, unspecified; I48.91 Unspecified atrial fibrillation; Z79.01 Long term (current) use of anticoagulants; E87.70 Fluid overload, unspecified; T45.515A Adverse effect of anticoagulants, initial encounter; I25.10 Atherosclerotic heart disease of native coronary artery without angina pectoris; D63.1 Anemia in chronic kidney disease; E66.01 Morbid (severe) obesity due to excess calories; E11.51 Type 2 diabetes mellitus with diabetic peripheral angiopathy without gangrene; R33.9 Retention of urine, unspecified; Z99.2 Dependence on renal dialysis; Z66 Do not resuscitate; J44.9 Chronic obstructive pulmonary disease, unspecified; R41.82 Altered mental status, unspecified; I95.3 Hypotension of hemodialysis
CPT/HCPCS: 36415; 36416; 36600; 70450; 71045; 80053; 82306; 82310; 82728; 82803; 82962; 83540; 83550; 83605; 83735; 83880; 83970; 84100; 84145; 84443; 84484; 85025; 85610; 86706; 87040; 87340; 87631; 87635; 93005; 94640; 94660; 96365; 96372; 96375; 99291; J0456; J0696; J1644; J2310; J2405; J3490; J7040; J7050; J7626; Q0144; Q3014; Q4081

== ENCOUNTER 2021-08-27 02:09 | Emergency (ER) | payer MEDICARE, MEDICAID, SELFPAY ==
[2021-08-27 02:10] VITALS: BP 87/53; PULSE 98; RESP 18; O2SAT 93; BMI 47.0
--- NOTE | 2021-08-27 02:18 | XRR_ITS ---
PROCEDURE INFORMATION: Exam: XR Chest Exam date and time: 08/27/2021 2:18 AM Age: 75 years old Clinical indication: Dyspnea; Additional info: Fall, AMS TECHNIQUE: Imaging protocol: XR of the chest. Views: 1 view. COMPARISON: CR XR chest 1V portable [id number] 08/15/2021 10:03 AM FINDINGS: Tubes, catheters and devices: Right-sided dialysis catheter is in place with the tips in the proximal superior vena cava. Lungs: There is enlargement of the pulmonary vascularity. There is thickening of the interstitial markings. Pleural spaces: Small right pleural effusion. Small left pleural effusion. Heart/Mediastinum: The heart is mildly enlarged. Bones/joints: Unremarkable. XR/XR chest 1V portable [id number] IMPRESSION: 1. Congestive heart failure/volume overload. 2. Right-sided dialysis catheter is in place with the tips in the proximal superior vena cava. 3. Small right pleural effusion. 4. Small left pleural effusion.
--- NOTE | 2021-08-27 02:18 | CTR_ITS ---
PROCEDURE INFORMATION: Exam: CT Head Without Contrast Exam date and time: 08/27/2021 2:18 AM Age: 75 years old Clinical indication: Injury or trauma; Blunt trauma (contusions or hematomas); Consciousness not specified; Injury details: Fall/hit back of head/laceration; Additional info: Fall head injury TECHNIQUE: Imaging protocol: Computed tomography of the head without contrast. Radiation optimization: All CT scans at this facility use at least one of these dose optimization techniques: automated exposure control; mA and/or kV adjustment per patient size (includes targeted exams where dose is matched to clinical indication); or iterative reconstruction. COMPARISON: CT head wo con* [id number] 08/15/2021 12:58 PM RADIATION DOSE METRICS: Total DLP (mGy-cm): 911.53 FINDINGS: Brain: Mild cerebral atrophy and ischemic leukoencephalopathy. Cerebral ventricles: No ventriculomegaly. Paranasal sinuses: Visualized sinuses are unremarkable. No fluid levels. Mastoid air cells: Visualized mastoid air cells are well aerated. Vasculature: Severe calcified intracranial atherosclerotic vessel disease. Bones/joints: Unremarkable. No acute fracture. Soft tissues: Right occipital scalp contusion/hematoma. CT/CT head wo con* [id number] IMPRESSION: 1. Right occipital scalp contusion/hematoma. 2. No acute intracranial findings.
--- NOTE | 2021-08-27 02:20 | ECG_ITS ---
[facility] Test Date: 2021-08-27 Pat Name: Carole Lee Department: Room: Gender: Female Senior Business Objects Developer: : [id number] Requested By: Adelfo Alaniz Order Number: [id number] Danielle MD: Ramon Garcia M.D. Measurements Intervals [place] Rate: 94 P: SC: QRS: 91 QRSD: 118 T: 233 QT: 383 QTc: 479 Interpretive Statements ATRIAL FIBRILLATION BORDERLINE RIGHT AXIS DEVIATION [QRS AXIS > 90] LOW QRS VOLTAGE IN EXTREMITY LEADS [QRS DEFLECTION < 0.5 mV IN LIMB LEADS] PATTERN CONSISTENT WITH PULMONARY DISEASE MODERATE INTRAVENTRICULAR CONDUCTION DELAY [110+ ms QRS DURATION] ST DEVIATION AND MODERATE T-WAVE ABNORMALITY, CONSIDER ANTEROLATERAL ISCHEMIA [-0.1+ mV T-WAVE IN V3-V6] ST DEVIATION AND MODERATE T-WAVE ABNORMALITY, CONSIDER INFERIOR ISCHEMIA [-0.1+ mV T-WAVE IN II/aVF] Compared to ECG 08/15/2021 13:31:21 Low QRS voltage now present T-wave abnormality now present Possible ischemia now present Electronically Signed On 08-27-2021 8:49:26 KENNEL HAND by Ramon Garcia M.D. [email or web address]
--- NOTE | 2021-08-27 02:21 | W.ED.HEATRA ---
HPI - Head Injury General: Chief complaint: Fall Stated complaint: FALL Time Seen by Provider: 08/27/21 02:12 Source: patient, EMS and other (id staff) History of Present Illness: 5-year-old female [facility] patient with multiple medical problems including chronic renal failure, diabetes, heart failure, COPD. She fell out of bed in a [facility] sustaining a head injury and laceration with some blood loss. Mild mental status changes since then Complaint: head injury Onset (ago): minute(s) Mechanism of Injury: fall Place: other (id) Loss of Consciousness: unsure Location of injury: parietal and occipital Severity: moderate Quality: aching Radiation: none Other Injuries: none Context: on warfarin Associated symptoms: Reports confusion (mild, seems to be clearing); Deny nausea, neck pain, visual changes or vomiting Review of Systems General: Reports: ROS unobtainable due to medical condition Const: Reports: fever(s) GI: Denies: nausea or vomiting Musc: Denies: neck pain Neuro: Reports: confusion (mild, seems to be clearing) PFSH ED PFSH: Medical History Acute hypercapnic respiratory failure Acute on chronic respiratory failure with hypoxia and hypercapnia Afib Anemia Anemia, chronic disease Atrial fibrillation with RVR CAD (coronary artery disease) Chronic anticoagulation Eliquis CKD (chronic kidney disease) Congestive heart failure Congestive heart failure Diabetes Dyslipidemia End stage renal disease Hematoma of left flank HTN (hypertension) Morbid obesity Morbid obesity NSTEMI (non-ST elevated myocardial infarction) PVD (peripheral vascular disease) 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) Status post insertion of drug-eluting stent into left anterior descending (LAD) artery Urine retention Venous stasis Surgical History History of ankle surgery History of cataract surgery History of cholecystectomy History of heart artery stent History of umbilical hernia repair S/P hemodialysis catheter insertion (11/22/20) Right internal jugular vein d/c 12/25/20 Family History Other Cancer Diabetes Social History Smoking and tobacco status: never smoked Alcohol intake: never Marital status: / Current occupational status: retired History of recent travel: No Physical Exam Const: GENERAL APPEARANCE: lethargic (mildly) and frail appearing; not comfortable NUTRITIONAL APPEARANCE: obese ORIENTATION/CONSCIOUSNESS: Yes awake, Yes oriented to person, Yes oriented to place and Yes lethargic (mildly); not oriented to time HENMT: COMMON NORMALS: Normal external nose present HEAD & SCALP: hematoma (right occipital) and laceration (right occiptal) FACE & SINUS: normal facial exam NOSE: Normal external nose present and Normal nares present Eye: COMMON NORMALS: Equal, round and reactive pupils present and EOMs intact bilaterally PUPIL: Yes Equal, round and reactive pupils present Neck/C-Spine: COMMON NORMALS: full ROM GENERAL: Yes trachea midline Chest: COMMONS NORMALS: normal inspection of the chest and normal palpation of entire chest wall Resp: COMMON NORMALS: normal respiratory effort, No use of accessory muscles and clear to auscultation bilaterally AUSCULTATION: clear to auscultation bilaterally Cardio: COMMON NORMALS: regular rate RATE: regular rate RHYTHM: abnormal rhythm irregularly irregular GI: COMMON NORMALS: Normal to inspection, nondistended, normoactive bowel sounds present and Soft to palpation PALPATION: Yes Soft to palpation Extremity: NARRATIVE EXTREMITY EXAM: small abrasion and contusion to right forearm. Neuro: SENSORIUM/ORIENTATION: Yes oriented to person, Yes oriented to place, No oriented to time and Yes lethargic (mildly) Skin: NARRATIVE SKIN EXAM: 2cm laceration to right occipital scalp. Procedures Laceration Laceration 1: Site: scalp Side (If applicable): right Size (cm): 2 Description: linear Depth: simple, single layer Local Anesthetic: lidocaine 1% and with epi Amount of anesthesia used (mL): 3 Pre-repair: wound explored, irrigated extensively and deep structures intact Skin layer closed with: other (jamar) Number of sutures: 3 Technique: simple, interrupted Course Vital Signs: Vital signs: Vital Signs Pulse Rate 98 08/27/21 02:10 Respiratory Rate 18 08/27/21 02:10 Blood Pressure 87/53 08/27/21 02:10 Pulse Oximetry 93 08/27/21 02:10 MDM - Head Injury Medcial Decision Making Scalp laceration repaired with jamar. Bleeding is controlled. She has a contusion to the right shoulder with a negative x-ray. Chest x-ray shows some increased fluid/pulmonary vascular congestion. She is due for dialysis later today. Head CT is negative for intracranial hemorrhage. It does show a scalp hematoma. Her hemoglobin is 7.5, which is just below her baseline. [facility] will be [facility] for [facility]. Lab Data : 08/27/21 03:10 08/27/21 03:[address] 08/27/21 02:18 IMPRESSION: 1. Right occipital scalp contusion/hematoma. 2. No acute intracranial findings. Laboratory Results WBC 6.9 10^3/uL (4.0-10.0) 08/27/21 03:10 RBC 2.42 10^6/uL (4.1-5.3) L 08/27/21 03:10 Hgb 7.5 g/dL (11.5-15.3) L 08/27/21 03:10 Hct 25.4 % (37.0-47.0) L 08/27/21 03:10 MCV 105.0 fl (81-99) H 08/27/21 03:10 MCH 31.0 pg (28.0-34.0) 08/27/21 03:10 MCHC 29.5 g/dL (30.0-36.0) L 08/27/21 03:10 RDW 21.6 % (12.1-15.1) H 08/27/21 03:10 Plt Count 118 10^3/cmm (130-400) L 08/27/21 03:10 MPV 13.0 fL (7.4-10.4) H 08/27/21 03:10 Neut % (Auto) 51.4 % 08/27/21 03:10 Lymph % (Auto) 30.0 % 08/27/21 03:10 [place] % (Auto) 7.7 % 08/27/21 03:10 Eos % (Auto) 9.6 % 08/27/21 03:10 Baso % (Auto) 0.6 % 08/27/21 03:10 Neut # (Auto) 3.55 10^3/uL (1.8-7.7) 08/27/21 03:10 Lymph # (Auto) 2.1 10^3/uL (0.8-4.8) 08/27/21 03:10 [place] # (Auto) 0.5 10^3/uL (0.2-0.9) 08/27/21 03:10 Eos # (Auto) 0.7 10^3/uL (0.0-0.8) 08/27/21 03:10 Baso # (Auto) 0.0 10^3/uL (0.0-0.1) 08/27/21 03:10 Nucleated RBC % (auto) 0.3 % 08/27/21 03:10 Nucleated RBCs # 0.0 /100WBC 08/27/21 03:10 PT 31.00 SECONDS (12.1-14.9) H 08/27/21 03:10 INR 2.92 (0.8-1.2) H 08/27/21 03:10 APTT 67.2 SECONDS (23.9-36.7) H 08/27/21 03:10 Sodium 134 mmol/L (136-145) L 08/27/21 03:10 Potassium 3.7 mmol/L (3.5-5.1) 08/27/21 03:10 Chloride 99 mmol/L (98-107) 08/27/21 03:10 Carbon Dioxide 26 mmol/L (22-29) 08/27/21 03:10 Anion Gap 12.7 (5-19) 08/27/21 03:10 BUN 7 mg/dL (8-23) L 08/27/21 03:10 Creatinine 2.6 mg/dL (0.5-0.9) H 08/27/21 03:10 GFR Calculation Not Reportable 08/27/21 03:10 Glucose 134 mg/dL (65-115) H 08/27/21 03:10 Calculated Osmolality 278 mOsm/kg (285-295) L 08/27/21 03:10 Lactate 2.8 mmol/L (0.5-2.2) H 08/27/21 03:10 Calcium 7.3 mg/dL (8.5-10.5) L 08/27/21 03:10 Phosphorus 1.5 mg/dL (2.5-4.5) L 08/27/21 03:10 Magnesium 1.9 mg/dL (1.7-2.3) 08/27/21 03:10 Total Bilirubin 0.5 mg/dL (0.15-1.2) 08/27/21 03:10 AST 48 U/L (0-32) H 08/27/21 03:10 ALT 16 U/L (0-33) 08/27/21 03:10 Alkaline Phosphatase 208 IU/L (35-105) H 08/27/21 03:10 Total Protein 5.5 g/dL (6.6-8.7) L 08/27/21 03:10 Albumin 2.1 g/dL (3.5-5.2) L 08/27/21 03:10 Globulin 3.4 g/dL (1.3-4.6) 08/27/21 03:10 Discharge Plan Discharge Patient Disposition: Home Clinical Impression: ESRD (end stage renal disease) on dialysis, Concussion without loss of consciousness, Laceration of scalp, Anemia due to chronic kidney disease Condition: Stable Prescriptions: No Action clopidogrel 75 mg tablet 75 mg PO DAILY@0800 0RF calcitriol 0.25 mcg capsule 0.25 mcg PO DAILY@0800 0RF levothyroxine 25 mcg tablet 25 mcg PO DAILY@06 0RF magnesium hydroxide [Milk of Magnesia] 400 mg/5 mL Suspension 5 ml PO QID PRN (Reason: Constipation) 0RF bisacodyl 10 mg Suppository 10 mg [place] DAILY PRN (Reason: Constipation) 0RF levothyroxine 200 mcg tablet 200 mcg PO DAILY@06 0RF folic acid 1 mg Tablet 2 mg PO DAILY@08 0RF pantoprazole [Protonix] 40 mg tablet,delayed release (DR/EC) 40 mg PO DAILY@08 0RF sennosides-docusate sodium [Senna-S] 8.6-50 mg Tablet 2 tab PO BID PRN (Reason: Constipation) 0RF Enema Disposable 19-7 gram/118 mL Enema 118 ml [place] DAILY PRN (Reason: Constipation) 0RF warfarin 1 mg Tablet 1.5 mg PO DAILY@14 0RF polyethylene glycol 3350 [Miralax] 17 gram/dose Powder 17 g PO DAILY PRN (Reason: Constipation) 0RF atorvastatin 80 mg Tablet 80 mg PO BEDTIME@20 0RF citalopram 10 mg Tablet 10 mg PO DAILY@0800 0RF docusate sodium 100 mg capsule 100 mg PO DAILY PRN (Reason: Constipation) 0RF phenytoin sodium extended 100 mg capsule 200 mg PO BID@08,20 0RF insulin aspart U-100 [Novolog Flexpen U-100 Insulin] 100 unit/mL (3 mL) insulin pen See Rx Instructions .ROUTE .COMPLEX 0RF Rx Instructions: sliding scale before meals (06:30,11:30,16:30) 150-200=3 units 201-250=5 units 251-300=7 units 301-350=9 units 351-400=11 units <60 or >400 notify albuterol sulfate [ProAir HFA] 90 mcg/actuation Hfa Aerosol Inhaler 2 puff inhalation Q6H PRN (Reason: Shortness Of Breath) 0RF ondansetron 4 mg Tablet,Disintegrating 8 mg PO BID PRN (Reason: Nausea And Vomiting) 0RF cholecalciferol (vitamin D3) [Vitamin D3] 25 mcg (1,000 unit) Tablet 25 mcg PO DAILY@08 0RF Tylenol 325 mg Tablet 650 mg PO Q6H PRN (Reason: Pain) 0RF Discharge Orders: Discharge ED (Routine); Ordered 08/27/21 Ordered By: Adelfo Olivas Referrals: Pascual Kay MD [Primary Care Provider] - 4-7 days Patient Instructions: Scalp Laceration, Concussion (ED), Anemia (ED) Activity Restrictions/Additional Instructions: Return for worsening mental status, language or speech problems, worsening headache, vomiting, any other concerning symptoms. Jamar should come out in 7 days. Ice may help pain and swelling to the scalp. 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
--- NOTE | 2021-08-27 02:37 | PC.NURSE ---
patient received via EMS stretcher with laceration to head s/p [facility] bed at [facility]. blood noted to dressing on head placed HYDROGEN TREATER, patient directly to CT for imaging. MD now at bedside for lac repair. patient with repetitive sayings.
[2021-08-27] MEDS: sodium chloride 0.9% 250 ML IV (03:15)
[2021-08-27 03:21] LABS: Basophils % 0.6 %; Eosinophils # 0.7 10^3/uL (0.0-0.8); Eosinophils % 9.6 %; Hematocrit 25.4 % (37.0-47.0); Hemoglobin 7.5 g/dL (11.5-15.3); Lymphocytes # 2.1 10^3/uL (0.8-4.8); Mean Corpuscular HGB Conc 29.5 g/dL (30.0-36.0); Monocytes # 0.5 10^3/uL (0.2-0.9); Monocytes % 7.7 %; Neutrophils # 3.55 10^3/uL (1.8-7.7); Neutrophils % 51.4 %; Nucleated Red Blood Cells % 0.3 %; Platelet Count 118 10^3/cmm (130-400); Red Blood Count 2.42 10^6/uL (4.1-5.3); Red Cell Distribution Width 21.6 % (12.1-15.1); White Blood Count 6.9 10^3/uL (4.0-10.0)
[2021-08-27 03:26] LABS: INR 2.92 (0.8-1.2)
[2021-08-27 03:28] LABS: Partial Thromboplastin Time 67.2 SECONDS (23.9-36.7)
--- NOTE | 2021-08-27 03:32 | XRR_ITS ---
PROCEDURE INFORMATION: Exam: XR Right Shoulder Exam date and time: 08/27/2021 3:32 AM Age: 75 years old Clinical indication: Injury or trauma; Fall; Blunt trauma (contusions or hematomas); Injury details: Bruising to upper right arm/shoulder; Additional info: Fall injury TECHNIQUE: Imaging protocol: XR Right shoulder. Views: 2 or more views. COMPARISON: CR (CHEST, ) 08/27/2021 3:33 AM FINDINGS: Tubes, catheters and devices: There is right-sided dialysis catheter in place. Bones/joints: Normal. Soft tissues: Normal. XR/XR shoulder RT min 2V* [id number] IMPRESSION: No acute findings.
[2021-08-27 03:35] LABS: Lactate (Lactic Acid level) 2.8 mmol/L (0.5-2.2)
[2021-08-27 03:36] LABS: Alanine Aminotransferase 16 U/L (0-33); Albumin Level 2.1 g/dL (3.5-5.2); Alkaline Phosphatase 208 IU/L (35-105); Aspartate Amino Transferase 48 U/L (0-32); Blood Urea Nitrogen 7 mg/dL (8-23); Calcium 7.3 mg/dL (8.5-10.5); Carbon Dioxide 26 mmol/L (22-29); Chloride 99 mmol/L (98-107); Globulin 3.4 g/dL (1.3-4.6); Glucose 134 mg/dL (65-115); Magnesium 1.9 mg/dL (1.7-2.3); Osmolality Calculated 278 mOsm/kg (285-295); Phosphorus 1.5 mg/dL (2.5-4.5); Sodium 134 mmol/L (136-145); Total Bilirubin 0.5 mg/dL (0.15-1.2); Total Protein 5.5 g/dL (6.6-8.7)
[2021-08-27 03:43] LABS: Anion Gap 12.7 (5-19); Potassium 3.7 mmol/L (3.5-5.1)
[2021-08-27 17:00] LABS: Glucose Point of Care 139 mg/dL (70-110)
== END 2021-08-27 08:30 | disposition home or self-care (01) ==
PROVIDERS: Emergency Provider Emergency Medicine; PCP Family Medicine
DX: S06.0X0A Concussion without loss of consciousness, initial encounter (principal); S01.01XA Laceration without foreign body of scalp, initial encounter; I13.2 Hypertensive heart and chronic kidney disease with heart failure and with stage 5 chronic kidney disease, or end stage renal disease; E11.22 Type 2 diabetes mellitus with diabetic chronic kidney disease; N18.6 End stage renal disease; I50.9 Heart failure, unspecified; D63.1 Anemia in chronic kidney disease; Z99.2 Dependence on renal dialysis; Z79.02 Long term (current) use of antithrombotics/antiplatelets; Z79.01 Long term (current) use of anticoagulants; Z79.4 Long term (current) use of insulin; I25.10 Atherosclerotic heart disease of native coronary artery without angina pectoris; E78.5 Hyperlipidemia, unspecified; I25.2 Old myocardial infarction; J44.9 Chronic obstructive pulmonary disease, unspecified; W06.XXXA Fall from bed, initial encounter; Y92.129 Unspecified place in nursing home as the place of occurrence of the external cause
CPT/HCPCS: 12001; 36416; 70450; 71045; 73030; 80053; 82962; 83605; 83735; 84100; 85025; 85610; 85730; 93005; 96360; 99283; J7050